=== PATIENT | female | born 1965 | race Caucasian/White ===

== ENCOUNTER 2018-08-13 13:46 | Inpatient (IN) | payer OTHER ==
[~2018-08-13] VITALS: Ht 165.1 cm; Wt 81.0 kg
[2018-08-13] MEDS ORDERED: morphine 4 MG/ML VIAL IV STA (14:00)
[2018-08-13] MEDS ORDERED: SOD CHLORIDE 0.9% 1,000 ML IV STA (14:00)
[2018-08-13] MEDS ORDERED: ONDANSETRON 4 MG INJ IV STA (14:00)
[2018-08-13] MEDS ORDERED: HYDROmorphONE 0.5 MG/0.5 ML SYG IV STA (14:03)
[2018-08-13] MEDS ORDERED: HYDROmorphONE 2 MG/ML SYG IV STA ×2 (14:43→16:37)
[2018-08-13] MEDS ORDERED: LEVO25TA6 PO (15:03)
[2018-08-13] MEDS ORDERED: HYDR8TAB25 PO (15:04)
[2018-08-13] MEDS ORDERED: PANT40TA3 PO (15:04)
[2018-08-13] MEDS ORDERED: OXYC-536 PO (15:05)
[2018-08-13] MEDS ORDERED: POTA20TA96 PO (15:05)
[2018-08-13] MEDS ORDERED: DULO60CA6 PO (15:05)
[2018-08-13] MEDS ORDERED: CHOL100062 PO (15:07)
[2018-08-13] MEDS ORDERED: ZOLP5TAB PO (15:07)
--- NOTE | 2018-08-13 17:19 | ERD ---
ER Documentation Chief Complaint Chief Complaint ABD PAIN WITH BLOODY STOOLS HPI 52-year-old female with a history of Hodgkin's lymphoma, thyroid cancer, and recently diagnosed C. difficile colitis [facility] for severe abdominal pain for about 1 day. She states her pain is mostly in the lower abdomen. She has had associated rectal bleeding which is new for her. She denies any nausea, vomiting, hematemesis, fever, chills. The pain is constant, 10 out of 10, radiating all over her abdomen. She denies being on blood thinners. She was recently discharged from another hospital to the [facility] yesterday. ROS All systems reviewed and are negative except as per history of present illness. Medications Home Meds Reported Medications Zolpidem Tartrate* (Ambien*) 5 Mg Tablet, 5 MG PO QHS PRN for INSOMNIA, #30 TAB 08/13/18 Cholecalciferol* (Vitamin D3*) 1,000 Unit Tablet, 1000 UNIT PO DAILY, TAB 08/13/18 Cholecalciferol* (Vitamin D3*) 1,000 Unit Tablet, 2000 UNIT PO DAILY, TAB 08/13/18 Potassium Chloride* (Potassium Chloride*) 20 Meq Tablet.er, 20 MEQ PO DAILY, TAB.SA 08/13/18 Duloxetine Hcl* (Cymbalta*) 60 Mg Capsule.dr, 60 MG PO DAILY, CAP 08/13/18 Oxycodone Hcl* (Oxycontin*) 15 Mg Tab.sr.12h, 15 MG PO Q12, TAB 08/13/18 Hydromorphone Hcl* (Dilaudid*) 8 Mg Tablet, 8 MG PO Q6H PRN for PAIN, TAB 08/13/18 Pantoprazole* (Protonix*) 40 Mg Tablet.dr, 40 MG PO AC BREAKFAST, TAB 08/13/18 Levothyroxine Sodium* (Levothyroxine Sodium*) 25 Mcg Tablet, 25 MCG PO BEFORE BREAKFAST, #30 TAB 08/13/18 Allergies Allergies: Coded Allergies: Iodine and Iodide Containing Produc (Verified Allergy, Unknown, 08/13/18) Penicillins (Verified Allergy, Unknown, 08/13/18) ketorolac (Verified Allergy, Unknown, 08/13/18) morphine (Verified Allergy, Unknown, 08/13/18) vancomycin (Verified Allergy, Unknown, 08/13/18) PMhx/Soc History of Surgery: Yes (CHOLECYSTECTOMY, ) Anesthesia Reaction: No Hx Neurological Disorder: No Hx Respiratory Disorders: No Hx Cardiac Disorders: Yes (HIGH CHOLESTEROL) Hx Psychiatric Problems: Yes (DEPRESSION, ANXIETY) Hx Miscellaneous Medical Probl: Yes (ANEMIA, CDIFF, HODGKINS LYMPHOMA) Hx Alcohol Use: No Hx Substance Use: No Hx Tobacco Use: No Smoking Status: Never smoker FmHx Mother had lymphoma and hypertension, father had stomach cancer Physical Exam Vitals Vital Signs Date Temp Pulse Resp B/P (MAP) Pulse Ox O2 O2 Flow FiO2 Time Delivery Rate 08/13/18 97.6 103 16 151/95 100 Room Air 18:15 (113) 08/13/18 97.1 70 16 149/89 100 13:58 (109) Physical Exam Const: No acute distress in distress secondary to pain, moaning, nontoxic Head: Atraumatic Eyes: Normal Conjunctiva ENT: Normal External Ears, Nose and Mouth. Neck: Full range of motion. No meningismus. Resp: Clear to auscultation bilaterally Cardio: Regular rate and rhythm, no murmurs Abd: Soft, left lower quadrant tenderness to palpation with guarding but no rebound. Peritonitis. non distended. Normal bowel sounds Rectal: Bright red blood in rectal vault Skin: No petechiae or rashes Back: No midline or flank tenderness Ext: No cyanosis, or edema Neur: Awake and alert, normal speech, moving all extremities spontaneously Psych: Normal Mood and Affect Result Diagram: 08/13/18 1415 08/13/18 1415 Results 24 hrs Laboratory Tests Test 08/13/18 14:15 08/13/18 15:46 08/13/18 15:47 08/13/18 16:25 White Blood Count 12.5 10^3/ul Red Blood Count 4.87 10^6/ul Hemoglobin 11.1 g/dl Hematocrit 35.0 % Mean Corpuscular 71.9 fl Volume Mean Corpuscular 22.8 pg Hemoglobin Mean Corpuscular 31.7 g/dl Hemoglobin Concen t Red Cell 15.8 % Distribution Width Platelet Count 265 10^3/UL Mean Platelet 9.6 fl Volume Immature 0.600 % Granulocytes % Neutrophils % 74.8 % Lymphocytes % 16.3 % Monocytes % 7.3 % Eosinophils % 0.5 % Basophils % 0.5 % Nucleated Red 0.0 /100WBC Blood Cells % Immature 0.080 10^3/ul Granulocytes # Neutrophils # 9.4 10^3/ul Lymphocytes # 2.0 10^3/ul Monocytes # 0.9 10^3/ul Eosinophils # 0.1 10^3/ul Basophils # 0.1 10^3/ul Nucleated Red 0.0 10^3/ul Blood Cells # Sodium Level 140 mmol/L Potassium Level 3.5 mmol/L Chloride Level 101 mmol/L Carbon Dioxide 25 mmol/L Level Anion Gap 14 Blood Urea 13 mg/dl Nitrogen Creatinine 0.41 mg/dl Est Glomerular > 60 mL/min Filtrat Rate mL/min Glucose Level 119 mg/dl Calcium Level 9.6 mg/dl Total Bilirubin 0.4 mg/dl Direct Bilirubin 0.00 mg/dl Indirect 0.4 mg/dl Bilirubin Aspartate Amino 31 IU/L Transf (AST/SGOT) Alanine 27 IU/L Aminotransferase (ALT/SGPT) Alkaline 100 IU/L Phosphatase Total Protein 8.0 g/dl Albumin 4.6 g/dl Globulin 3.40 g/dl Albumin/Globulin 1.35 Ratio Lipase 60 U/L Urine Color YELLOW Urine Clarity CLEAR Urine pH 5.0 Urine Specific 1.024 [place] Urine Ketones NEGATIVE mg/dL Urine Nitrite NEGATIVE mg/dL Urine Bilirubin NEGATIVE mg/dL Urine NEGATIVE mg/dL Urobilinogen Urine Leukocyte NEGATIVE Jose/ul Esterase Urine Hemoglobin NEGATIVE mg/dL Urine Glucose NEGATIVE mg/dL Urine Total NEGATIVE mg/dl Protein POC Beta HCG, NEGATIVE Qualitative Stool Occult POSITIVE Blood Current Medications Medications Dose Sig/Marcel Start Time Status Last (Trade) Ordered Route PRN Stop Time Admin Dose Reason Admin Sodium 1,000 ml @ Q1H STAT 08/13/18 DC 08/13/18 Chloride 1,000 mls/hr IV 14:00 15:28 08/13/18 14:59 Morphine 4 mg ONCE STAT 08/13/18 DC Sulfate IV 14:00 (morphine) 08/13/18 14:04 Ondansetron 4 mg ONCE STAT 08/13/18 DC 08/13/18 HCl (Zofran IV 14:00 14:57 Inj) 08/13/18 14:02 0.5 mg ONCE STAT 08/13/18 DC 08/13/18 Hydromorphone IV 14:03 14:57 HCl 08/13/18 14:04 (Dilaudid) 2 mg ONCE STAT 08/13/18 DC 08/13/18 Hydromorphone IV 14:43 15:28 HCl 08/13/18 14:44 (Dilaudid) 2 mg ONCE STAT 08/13/18 DC 08/13/18 Hydromorphone IV 16:37 16:53 HCl 08/13/18 16:38 (Dilaudid) Ondansetron 4 mg ER BRIDGE 08/13/18 HCl (Zofran PRN IV 17:30 Inj) NAUSEA AND/OR 08/14/18 17:29 VOMITING 650 mg ER BRIDGE 08/13/18 Acetaminophen PRN PO MILD 17:30 (Tylenol PAIN(1-3)OR 08/14/18 17:29 Tab) ELEVATED TEMP Procedures/MDM EMERGENT LABS AND DIAGNOSTIC STUDIES: Lab Results above were reviewed and interpreted by me. CBC: Mild leukocytosis, mild anemia. No thrombocytosis or thrombocytopenia CMP: No evidence of electrolyte abnormality, renal failure, hypoglycemia, liver failure, or biliary obstruction Lipase: no evidence of pancreatitis UA: no evidence of infection CT abdomen and pelvis Radiology Results as interpreted by Radiology below were reviewed by Alba Jarvis MD: CT abdomen and pelvis: Pending Initial Nursing notes reviewed. Previous Medical Records requested via the Electronic Health Record. EMERGENCY DEPARTMENT COURSE / MEDICAL DECISION MAKING: Patient is presenting with bright red blood per rectum and diffuse abdominal pain. She is hemodynamically stable. She was given multiple doses of Dilaudid for pain control as she is chronically on Dilaudid. She remained hemodynamically stable. Her labs did not show any significant anemia or other abnormalities. CT abdomen and pelvis was ordered and is pending at time of admission. Patient will be admitted to telemetry under Dr. Garcia. Departure Diagnosis: Primary Impression: Abdominal pain Abdominal location: lower abdomen, unspecified Qualified Codes: R10.30 - Lower abdominal pain, unspecified Additional Impressions: Rectal bleeding History of Clostridium difficile colitis Condition: Serious RIAZ JARVIS MD Aug 13, 2018 17:19
[2018-08-13] MEDS ORDERED: ONDANSETRON 4 MG INJ IV PRN (17:30)
[2018-08-13] MEDS ORDERED: ACETAMINOPHEN 325 MG TAB PO PRN (17:30)
[2018-08-13 20:00] VITALS: BP 136/90; PULSE 106; PULSE 110; RESP 22; Ht 165.1 cm; Wt 81.0 kg
[2018-08-13] MEDS ORDERED: NACL 0.9% 3 ML SYG IV SCH (20:00)
[2018-08-13] MEDS ORDERED: HYDROmorphONE 0.5 MG/0.5 ML SYG IV PRN (20:00)
[2018-08-13] MEDS: FAMOTIDINE 20 MG INJ IV SCH (20:12)
[2018-08-13] MEDS: ONDANSETRON 4 MG INJ IV PRN (20:12)
[2018-08-13] MEDS: DEXTROSE 5%-0.45% NACL 1,000 ML IV SCH (22:06)
--- NOTE | 2018-08-13 22:07 | HP ---
Date/Time of Note Date/Time of Note DATE: 08/13/18 TIME: 22:07 Assessment/Plan VTE Prophylaxis SCD applied (from Nsg): Yes Pharmacological prophylaxis: NA/contraindicated Pharm contraindication: bleeding Lines/Catheters IV Catheter Type (from Nrsg): PICC Line Central line still needed: Yes Assessment/Plan Assessment/Plan 1. Abdominal pain with watery bloody diarrhea: Most likely secondary to C. difficile colitis -Patient was recently diagnosed with a C. difficile colitis at the [facility] about a week ago. Here CT shows colitis -IV antibiotic -Keep n.p.o. with IV fluid -Stool studies including C. difficile -Consider GI consult 2. Hodgkin's lymphoma of the lung (per patient's diagnosed last month) -Patient has been awaiting oncology eval -We will place an oncology consult here 3. History of thyroid cancer diagnosed in 2007, status post surgery. Currently on Synthroid for hypothyroidism -Continue Synthroid Result Diagram: 08/13/18 1415 08/13/18 1415 Results 24hrs Laboratory Tests Test 08/13/18 14:15 08/13/18 15:46 08/13/18 15:47 08/13/18 16:25 White Blood Count 12.5 H Red Blood Count 4.87 Hemoglobin 11.1 L Hematocrit 35.0 L Mean Corpuscular 71.9 L Volume Mean Corpuscular 22.8 L Hemoglobin Mean Corpuscular 31.7 L Hemoglobin Concent Red Cell 15.8 H Distribution Width Platelet Count 265 Mean Platelet Volume 9.6 Immature 0.600 H Granulocytes % Neutrophils % 74.8 Lymphocytes % 16.3 Monocytes % 7.3 Eosinophils % 0.5 Basophils % 0.5 Nucleated Red Blood 0.0 Cells % Immature 0.080 H Granulocytes # Neutrophils # 9.4 H Lymphocytes # 2.0 Monocytes # 0.9 Eosinophils # 0.1 Basophils # 0.1 Nucleated Red Blood 0.0 Cells # Sodium Level 140 Potassium Level 3.5 Chloride Level 101 Carbon Dioxide Level 25 Anion Gap 14 H Blood Urea Nitrogen 13 Creatinine 0.41 L Est Glomerular > 60 Filtrat Rate mL/min Glucose Level 119 Calcium Level 9.6 Total Bilirubin 0.4 Direct Bilirubin 0.00 Indirect Bilirubin 0.4 Aspartate Amino 31 Transf (AST/SGOT) Alanine 27 Aminotransferase (AL T/SGPT) Alkaline Phosphatase 100 Total Protein 8.0 Albumin 4.6 Globulin 3.40 H Albumin/Globulin 1.35 Ratio Lipase 60 Urine Color YELLOW Urine Clarity CLEAR Urine pH 5.0 Urine Specific 1.024 [place] Urine Ketones NEGATIVE Urine Nitrite NEGATIVE Urine Bilirubin NEGATIVE Urine Urobilinogen NEGATIVE Urine Leukocyte NEGATIVE Esterase Urine Hemoglobin NEGATIVE Urine Glucose NEGATIVE Urine Total Protein NEGATIVE POC Beta HCG, NEGATIVE Qualitative Stool Occult Blood POSITIVE HPI/ROS Admit Date/Time Admit Date/Time Aug 13, 2018 at 17:22 Hx of Present Illness This is a 52-year-old female with a history of thyroid cancer status post surgery on remission and taking Synthroid, Hodgkin's lymphoma of the lung diagnosed last month (this is per patient). Patient presented to ER complaining of abdominal pain, multiple watery/bloody diarrhea. She said she was hospital ized the entire June of last month at [facility]. She said she was in a coma for 1 week "because I had a bacteria in my blood". She went back to the same hospital about a week ago for abdominal pain where she was hospitalized for 4 days after diagnosis of C. difficile colitis. Patient is any significant abdominal pain. She said she is already had multiple diarrhea even after she came to the hospital. She said she is in the process of seeing an oncologist for her lung cancer. When she presented to ER, WBC was 25,000. CT abdomen pelvis shows colitis. PMH/Family/Social Past Medical History Medical History: other (See HPI) Medications Current Medications Dextrose/Sodium Chloride 1,000 ml @ 125 mls/hr Q8H IV Last administered on 08/13/18at 22:06; Admin Dose 125 MLS/HR; Start 08/13/18 at 19:34 IV Flush (NS 3 ml) 3 ml PER PROTOCOL IV ; Start 08/13/18 at 20:00 Ondansetron HCl (Zofran Inj) 4 mg Q6H PRN IV NAUSEA AND/OR VOMITING Last administered on 08/13/18at 20:12; Admin Dose 4 MG; Start 08/13/18 at 20:00 Famotidine (Pepcid Iv) 20 mg Q12 IV Last administered on 08/13/18at 20:12; Admin Dose 20 MG; Start 08/13/18 at 21:00 Hydromorphone HCl (Dilaudid) 0.5 mg Q3H PRN IV SEVERE PAIN LEVEL 7-10 Last administered on 08/13/18at 20:13; Admin Dose 0.5 MG; Start 08/13/18 at 20:00 Coded Allergies: Iodine and Iodide Containing Produc (Verified Allergy, Unknown, 08/13/18) Penicillins (Verified Allergy, Unknown, 08/13/18) ketorolac (Verified Allergy, Unknown, 08/13/18) morphine (Verified Allergy, Unknown, 08/13/18) vancomycin (Verified Allergy, Unknown, 08/13/18) Past Surgical History Past Surgical Hx: other (See HPI) Family History Significant Family History: no pertinent family hx Social History Alcohol Use: none Smoking Status: Never smoker Drug Use: none Exam/Review of Systems Vital Signs Vitals Vital Signs Date Temp Pulse Resp B/P (MAP) Pulse Ox O2 O2 Flow FiO2 Time Delivery Rate 08/13/18 98.5 104 28 152/97 98 Room Air 18:35 (115) Exam Constitutional: distress Head: normocephalic, atraumatic Eyes: EOMI, PERRL Respiratory: clear to auscultation, normal air movement Cardiovascular: other (Tachycardic regular rhythm) Gastrointestinal: soft, tender Extremities: normal pulses TOPHER HSU MD Aug 13, 2018 22:07
[2018-08-13] MEDS: HYDROmorphONE 1 MG/ML SYG IV PRN (22:15)
[2018-08-13 23:40] VITALS: BP 132/95; PULSE 100; RESP 19
[2018-08-14] VITALS (11 sets, daily range): BP systolic 125–162; BP diastolic 82–90; PULSE 92–111; RESP 18–19
[2018-08-14] MEDS: HYDROmorphONE 1 MG/ML SYG IV PRN ×3 (01:18→07:13)
[2018-08-14] MEDS: ONDANSETRON 4 MG INJ IV PRN ×2 (03:17→16:01)
[2018-08-14] MEDS: DEXTROSE 5%-0.45% NACL 1,000 ML IV SCH ×4 (03:34→22:01)
[2018-08-14] MEDS ORDERED: LEVOTHYROXINE 25 MCG TAB PO SCH (07:30)
[2018-08-14] MEDS ORDERED: PANTOPRAZOLE (EC) 40 MG TAB PO SCH (07:30)
[2018-08-14] MEDS: FAMOTIDINE 20 MG INJ IV SCH ×2 (08:18→20:29)
[2018-08-14] MEDS: oxyCODONE (CR) 15 MG TAB [oxyCONTIN] PO SCH ×2 (08:18→20:29)
[2018-08-14] MEDS: DULOXETINE 30 MG CAP DR PO SCH (08:18)
[2018-08-14] MEDS: HYDROmorphONE 2 MG/ML SYG IV PRN ×4 (10:21→22:05)
[2018-08-14] MEDS ORDERED: RIFAXIMIN 550 MG TAB PO SCH (14:00)
[2018-08-14] MEDS ORDERED: LACTATED RINGER'S 500 ML IV ONE (14:00)
[2018-08-14] MEDS: metroNIDAZOLE 500 MG TAB PO SCH ×2 (14:16→22:01)
--- NOTE | 2018-08-14 14:52 | CONS ---
Date/Time of Note Date/Time of Note DATE: 08/14/18 TIME: 14:40 Assessment/Plan Assessment/Plan Hospital Course Summary Assessment and Plan: Assessment: Colitis, involving the ascending, transverse, descending colon. Abdominal pain Hodgkin's lymphoma of the lung History of thyroid cancer diagnosed in 2007, status post surgery History of PE- s/p IVC filter placement Plan: Patient has been empirically started on vancomycin/Flagyl for possible CDIFF Stool studies are currently pending Monitor labs as patient is complaining of bloody diarrhea however currently hemoglobin is stable Workup is negative may consider colonoscopy Clear liquid diet Continue collaboration with Dr. Yadav Result Diagram: 08/14/18 0515 08/14/18 0515 Results 24hrs Laboratory Tests Test 08/13/18 15:46 08/13/18 15:47 08/13/18 16:25 08/14/18 05:15 Urine Color YELLOW Urine Clarity CLEAR Urine pH 5.0 Urine Specific 1.024 [place] Urine Ketones NEGATIVE Urine Nitrite NEGATIVE Urine Bilirubin NEGATIVE Urine Urobilinogen NEGATIVE Urine Leukocyte NEGATIVE Esterase Urine Hemoglobin NEGATIVE Urine Glucose NEGATIVE Urine Total Protein NEGATIVE POC Beta HCG, NEGATIVE Qualitative Stool Occult Blood POSITIVE White Blood Count 25.4 #H Red Blood Count 5.29 Hemoglobin 12.0 Hematocrit 37.7 Mean Corpuscular 71.3 L Volume Mean Corpuscular 22.7 L Hemoglobin Mean Corpuscular 31.8 L Hemoglobin Concent Red Cell 16.1 H Distribution Width Platelet Count 335 # Mean Platelet Volume 10.5 H Immature 0.800 H Granulocytes % Neutrophils % Segmented 82 H Neutrophils % (Manual) Band Neutrophils % 7 H (Manual) Lymphocytes % Lymphocytes % 5 L (Manual) Reactive Lymphocytes 4 H % (Manual) Monocytes % Monocytes % (Manual) 2 Eosinophils % Basophils % Nucleated Red Blood 0.0 Cells % Immature 0.200 H Granulocytes # Neutrophils # Neutrophils # 21.3 H (Manual) Band Neutrophils # 1.7 H Lymphocytes (Manual) 1.2 Lymphocytes # Reactive Lymphocytes 1.0 H # Monocytes # Monocytes # (Manual) 0.5 Eosinophils # Basophils # Nucleated Red Blood Cells # Platelet Estimate NORMAL Polychromasia 1+ Poikilocytosis 3+ Anisocytosis 2+ Microcytosis 2+ Ovalocytes 1+ Elliptocytes 1+ Sodium Level 137 Potassium Level 3.6 Chloride Level 104 Carbon Dioxide Level 21 Anion Gap 12 Blood Urea Nitrogen 17 Creatinine 0.47 Est Glomerular > 60 Filtrat Rate mL/min Glucose Level 175 Calcium Level 8.8 Magnesium Level 1.8 Total Bilirubin 0.5 Direct Bilirubin 0.00 Indirect Bilirubin 0.5 Aspartate Amino 21 Transf (AST/SGOT) Alanine 24 Aminotransferase (AL T/SGPT) Alkaline Phosphatase 90 Total Protein 7.0 # Albumin 4.0 Globulin 3.00 Albumin/Globulin 1.33 Ratio Thyroid Stimulating 0.882 Hormone (TSH) CC: PRUDENCE YADAV Ashley ; Consultation Date/Type/Reason Admit Date/Time Aug 13, 2018 at 17:22 Date of Consultation: Aug 14, 2018 Type of Consult GI Reason for Consultation Bloody diarrhea Hx of Present Illness A 52-year-old female with past medical history of Hodgkin's lymphoma, history of PE status post IVC filter, thyroid CA in 2000-03-03 status post thyroidectomy currently on levothyroxine. Who was recently treated in outside hospital and subsequently for hemoptysis subsequently discharged patient then began to complain of abdominal pain and bloody diarrhea she came to [facility]. Currently stool studies have been ordered, showing colitis of the ascending, transverse, descending colon a CT abdomen pelvis was completed she is status post cholecystectomy, again IVC filter is noted numerous nodules in both lungs measuring up to 4 mm in the right lobe and lingula. He has been started on empiric antibiotics for presumed C. difficile studies are currently pending. Patient states her last colonoscopy was about 3 years ago per patient results were negative. Heme globin is stable despite having bloody diarrhea. We will wait for stool studies to return if workup is negative may consider repeating colonoscopy. Review of Systems: A 12 system, review was conducted and is negative except as noted in the HPI or here. Past Medical History Medical History: other (See HPI) Medications Current Medications Dextrose/Sodium Chloride 1,000 ml @ 125 mls/hr Q8H IV Last administered on 08/14/18at 08:20; Admin Dose 125 MLS/HR; Start 08/13/18 at 19:34 IV Flush (NS 3 ml) 3 ml PER PROTOCOL IV ; Start 08/13/18 at 20:00 Ondansetron HCl (Zofran Inj) 4 mg Q6H PRN IV NAUSEA AND/OR VOMITING Last administered on 08/14/18at 03:17; Admin Dose 4 MG; Start 08/13/18 at 20:00 Famotidine (Pepcid Iv) 20 mg Q12 IV Last administered on 08/14/18 08:18; Admin Dose 20 MG; Start 08/13/18 at 21:00 Duloxetine HCl (Cymbalta) 60 mg DAILY PO Last administered on 08/14/18 08:18; Admin Dose 60 MG; Start 08/14/18 at 09:00 Oxycodone HCl (Oxycontin) 15 mg Q12 PO Last administered on 08/14/18 08:18; Admin Dose 15 MG; Start 08/14/18 at 09:00 Hydromorphone HCl (Dilaudid) 2 mg Q4H PRN IV SEVERE PAIN LEVEL 7-10 Last administered on 08/14/18 14:16; Admin Dose 2 MG; Start 08/14/18 at 07:30 Vancomycin HCl (Vancomycin Oral Syringe) 250 mg Q6 PO ; Start 08/14/18 at 14:30; Stop 08/21/18 at 14:29 Metronidazole (Flagyl) 500 mg Q8 PO Last administered on 08/14/18at 14:16; Admin Dose 500 MG; Start 08/14/18 at 14:00; Stop 08/21/18 at 13:59 Levothyroxine Sodium (Synthroid) 50 mcg BEFORE BREAKFAST PO ; Start 08/15/18 at 07:00 Lactated Ringer's 500 ml @ 500 mls/hr Q1H ONCE IV Last administered on 08/14/18 14:18; Admin Dose 500 MLS/HR; Start 08/14/18 at 14:00; Stop 08/14/18 at 14:59 Allergies: Coded Allergies: Iodine and Iodide Containing Produc (Verified Allergy, Unknown, 08/13/18) Penicillins (Verified Allergy, Unknown, 08/13/18) ketorolac (Verified Allergy, Unknown, 08/13/18) morphine (Verified Allergy, Unknown, 08/13/18) vancomycin (Verified Allergy, Unknown, 08/13/18) Past Surgical History Past Surgical Hx: other (See HPI) Social History Alcohol Use: none Smoking Status: Never smoker Drug Use: none Exam/Review of Systems Vital Signs Vitals Vital Signs Date Temp Pulse Resp B/P (MAP) Pulse Ox O2 O2 Flow FiO2 Time Delivery Rate 08/14/18 94 12:00 08/14/18 98.4 18 154/84 96 11:07 (107) 08/13/18 2.0 20:00 08/13/18 Room Air 18:35 Intake and Output 08/13/18 08/13/18 08/14/18 1515:00 23:00 07:00 IntakeIntake Total 700 ml OutputOutput Total 400 ml BalanceBalance 300 ml Exam Constitutional: alert, oriented Psych: no complaints Head: normocephalic, atraumatic Eyes: nl conjunctiva ENMT: nl external ears & nose Neck: supple, non-tender Respiratory: clear to auscultation Cardiovascular: regular rate and rhythm Gastrointestinal: soft, bowel sounds, tender (generalized); No ascites, No distended, No firm, No hepatomegaly, No mass, No rebound or guarding Medications Medications Current Medications Dextrose/Sodium Chloride 1,000 ml @ 125 mls/hr Q8H IV Last administered on 08/14/18 08:20; Admin Dose 125 MLS/HR; Start 08/13/18 at 19:34 IV Flush (NS 3 ml) 3 ml PER PROTOCOL IV ; Start 08/13/18 at 20:00 Ondansetron HCl (Zofran Inj) 4 mg Q6H PRN IV NAUSEA AND/OR VOMITING Last ad ministered on 08/14/18 03:17; Admin Dose 4 MG; Start 08/13/18 at 20:00 Famotidine (Pepcid Iv) 20 mg Q12 IV Last administered on 08/14/18 08:18; Admin Dose 20 MG; Start 08/13/18 at 21:00 Duloxetine HCl (Cymbalta) 60 mg DAILY PO Last administered on 08/14/18 08:18; Admin Dose 60 MG; Start 08/14/18 at 09:00 Oxycodone HCl (Oxycontin) 15 mg Q12 PO Last administered on 08/14/18 08:18; Admin Dose 15 MG; Start 08/14/18 at 09:00 Hydromorphone HCl (Dilaudid) 2 mg Q4H PRN IV SEVERE PAIN LEVEL 7-10 Last administered on 08/14/18 14:16; Admin Dose 2 MG; Start 08/14/18 at 07:30 Vancomycin HCl (Vancomycin Oral Syringe) 250 mg Q6 PO ; Start 08/14/18 at 14:30; Stop 08/21/18 at 14:29 Metronidazole (Flagyl) 500 mg Q8 PO Last administered on 08/14/18at 14:16; Admin Dose 500 MG; Start 08/14/18 at 14:00; Stop 08/21/18 at 13:59 Levothyroxine Sodium (Synthroid) 50 mcg BEFORE BREAKFAST PO ; Start 08/15/18 at 07:00 Lactated Ringer's 500 ml @ 500 mls/hr Q1H ONCE IV Last administered on 08/14/18at 14:18; Admin Dose 500 MLS/HR; Start 08/14/18 at 14:00; Stop 08/14/18 at 14:59 VADIM MCGILL Aug 14, 2018 14:51
[2018-08-14] MEDS: VANCOMYCIN HCL 250 MG/5ML POSYG PO SCH ×2 (15:02→18:48)
--- NOTE | 2018-08-14 20:54 | PN ---
Date/Time of Note Date/Time of Note DATE: 08/14/18 TIME: 20:48 Assessment/Plan VTE Prophylaxis Risk [place] [facility] [place] risk: 3 SCD applied ([place] [facility] [place] Yes SCD contraindicated: low risk/ambulating Pharmacological prophylaxis: NA/contraindicated Pharm contraindication: bleeding Lines/Catheters IV [facility]ter Type (from [facility]): Peripheral IV Urinary Cath still in place: Yes Reason Cath still needed: urinary retention Assessment/Plan Problems: (1) Rectal bleeding Status: Acute Comment: The staff was uncomfortable with the idea of using rifaximin mean. As such empirically this is been transition over to vancomycin with metronidazole pending the C. difficile studies which were initially turned down by laboratory. GI consult is on board and apparently agrees with the presumptive treatment plan. (2) History of Clostridium difficile colitis Status: Acute Comment: Repeat studies are pending.Please note our laboratory refused from the first specimen stating that it was not watery enough. Please see the nursing notes about the specimen that they said that regarding. Repeat studies have been ordered. (3) Abdominal pain Status: Acute Comment: Continue careful observation Qualifiers: Abdominal location: lower abdomen, unspecified Qualified Codes: R10.30 - Lower abdominal pain, unspecified (4) Hyperlipidemia Status: Chronic Comment: Noted. When the patient's better we can resume statin therapy Qualifiers: Hyperlipidemia type: pure hypercholesterolemia Qualified Codes: E78.00 - Pure hypercholesterolemia, unspecified (5) Hodgkins disease Status: Chronic Comment: noted Qualifiers: Hodgkin lymphoma type: unspecified type (6) History of laparoscopic cholecystectomy Status: Chronic Comment: noted (7) History of Status: Chronic Comment: noted (8) Papillary carcinoma of thyroid Status: Chronic Comment: noted, recheck labs Result Diagram: 08/14/18 0515 08/14/18 0515 Results 24hrs Laboratory Tests Test 08/14/18 05:15 White Blood Count 25.4 #H Red Blood Count 5.29 Hemoglobin 12.0 Hematocrit 37.7 Mean Corpuscular Volume 71.3 L Mean Corpuscular Hemoglobin 22.7 L Mean Corpuscular Hemoglobin Concent 31.8 L Red Cell Distribution Width 16.1 H Platelet Count 335 # Mean Platelet Volume 10.5 H Immature Granulocytes % 0.800 H Neutrophils % Segmented Neutrophils % (Manual) 82 H Band Neutrophils % (Manual) 7 H Lymphocytes % Lymphocytes % (Manual) 5 L Reactive Lymphocytes % (Manual) 4 H Monocytes % Monocytes % (Manual) 2 Eosinophils % Basophils % Nucleated Red Blood Cells % 0.0 Immature Granulocytes # 0.200 H Neutrophils # Neutrophils # (Manual) 21.3 H Band Neutrophils # 1.7 H Lymphocytes (Manual) 1.2 Lymphocytes # Reactive Lymphocytes # 1.0 H Monocytes # Monocytes # (Manual) 0.5 Eosinophils # Basophils # Nucleated Red Blood Cells # Platelet Estimate NORMAL Polychromasia 1+ Poikilocytosis 3+ Anisocytosis 2+ Microcytosis 2+ Ovalocytes 1+ Elliptocytes 1+ Sodium Level 137 Potassium Level 3.6 Chloride Level 104 Carbon Dioxide Level 21 Anion Gap 12 Blood Urea Nitrogen 17 Creatinine 0.47 Est Glomerular Filtrat Rate mL/min > 60 Glucose Level 175 Calcium Level 8.8 Magnesium Level 1.8 Total Bilirubin 0.5 Direct Bilirubin 0.00 Indirect Bilirubin 0.5 Aspartate Amino Transf (AST/SGOT) 21 Alanine Aminotransferase (ALT/SGPT) 24 Alkaline Phosphatase 90 Total Protein 7.0 # Albumin 4.0 Globulin 3.00 Albumin/Globulin Ratio 1.33 Thyroid Stimulating Hormone (TSH) 0.882 Subjective 24 Hr Interval Summary Free Text/Dictation Patient is complaining of continued pain and bloody stools Constitutional: no complaints Respiratory: no complaints Cardiovascular: no complaints Gastrointestinal: pain, diarrhea Genitourinary: no complaints Exam/Review of Systems Vital Signs Vitals Vital Signs Date Temp Pulse Resp B/P (MAP) Pulse Ox O2 O2 Flow FiO2 Time Delivery Rate 08/14/18 97.7 92 18 125/82 97 20:37 (96) 08/13/18 2.0 20:00 08/13/18 Room Air 18:35 Intake and Output 08/13/18 08/13/18 08/14/18 1414:59 22:59 06:59 IntakeIntake Total 700 ml OutputOutput Total 400 ml BalanceBalance 300 ml Exam Constitutional: alert Neck: supple, non-tender Respiratory: clear to auscultation, normal air movement Gastrointestinal: soft, nl liver, spleen, tender Medications Medications Current Medications Dextrose/Sodium Chloride 1,000 ml @ 125 mls/hr Q8H IV Last administered on at 08:20; Admin Dose 125 MLS/HR; Start 08/13/18 at 19:34 IV Flush (NS 3 ml) 3 ml PER PROTOCOL IV ; Start 08/13/18 at 20:00 Ondansetron HCl (Zofran Inj) 4 mg Q6H PRN IV NAUSEA AND/OR VOMITING Last administered on 08/14/18 16:01; Admin Dose 4 MG; Start 08/13/18 at 20:00 Famotidine (Pepcid Iv) 20 mg Q12 IV Last administered on 08/14/18 20:29; Admin Dose 20 MG; Start 08/13/18 at 21:00 Duloxetine HCl (Cymbalta) 60 mg DAILY PO Last administered on 08/14/18 08:18; Admin Dose 60 MG; Start 08/14/18 at 09:00 Oxycodone HCl (Oxycontin) 15 mg Q12 PO Last administered on 08/14/18 20:29; Admin Dose 15 MG; Start 08/14/18 at 09:00 Hydromorphone HCl (Dilaudid) 2 mg Q4H PRN IV SEVERE PAIN LEVEL 7-10 Last administered on 08/14/18 18:05; Admin Dose 2 MG; Start 08/14/18 at 07:30 Vancomycin HCl (Vancomycin Oral Syringe) 250 mg Q6 PO Last administered on 08/14/18 18:48; Admin Dose 250 MG; Start 08/14/18 at 14:30; Stop 08/21/18 at 14:29 Metronidazole (Flagyl) 500 mg Q8 PO Last administered on 08/14/18at 14:16; Admin Dose 500 MG; Start 08/14/18 at 14:00; Stop 08/21/18 at 13:59 Levothyroxine Sodium (Synthroid) 50 mcg BEFORE BREAKFAST PO ; Start 08/15/18 at 07:00 MALISSA MARTINES MD Aug 14, 2018 20:54
[2018-08-15] VITALS (12 sets, daily range): BP systolic 133–145; BP diastolic 65–83; PULSE 73–90; RESP 17–19
[2018-08-15] MEDS: ONDANSETRON 4 MG INJ IV PRN ×2 (00:39→12:04)
[2018-08-15] MEDS ORDERED: DIPHENHYDRAMINE 50 MG INJ IV ONE (01:30)
[2018-08-15] MEDS: VANCOMYCIN HCL 250 MG/5ML POSYG PO SCH ×5 (01:39→22:53)
[2018-08-15] MEDS: HYDROmorphONE 2 MG/ML SYG IV PRN ×6 (02:02→22:52)
[2018-08-15] MEDS: ALTEPLASE (CATHFLO) 2 MG INJ CATHETER PRN ×2 (06:18→07:02)
[2018-08-15] MEDS: LEVOTHYROXINE 50 MCG TAB PO SCH (07:06)
[2018-08-15] MEDS: metroNIDAZOLE 500 MG TAB PO SCH ×3 (07:07→21:10)
[2018-08-15] MEDS: oxyCODONE (CR) 15 MG TAB [oxyCONTIN] PO SCH ×2 (08:31→20:30)
[2018-08-15] MEDS: FAMOTIDINE 20 MG INJ IV SCH ×2 (08:31→20:31)
[2018-08-15] MEDS: DULOXETINE 30 MG CAP DR PO SCH (08:32)
[2018-08-15] MEDS: DEXTROSE 5%-0.45% NACL 1,000 ML IV SCH ×2 (09:12→16:41)
--- NOTE | 2018-08-15 10:16 | PN ---
Date/Time of Note Date/Time of Note DATE: 08/15/18 TIME: 10:13 Assessment/Plan VTE Prophylaxis Risk score (from [facility] [place])>0 risk: 4 SCD applied (from [facility] [place]): Yes SCD contraindicated: low risk/ambulating Pharmacological prophylaxis: NA/contraindicated Pharm contraindication: bleeding (GI bleeding) Lines/Catheters IV C[facility]ter Type (from [facility]): PICC Line Central line still needed: Yes Urinary Cath still in place: No Assessment/Plan Problems: (1) Rectal bleeding Status: Acute Comment: This persists. Please see GI consult. I still am strongly of the opinion that rifaximin would be an appropriate option. Lab does confirm that they have the stool specimens and that they are in process. One hopes this means that there not can cancel it again (2) Abdominal pain Status: Acute Comment: Persists. Qualifiers: Abdominal location: lower abdomen, unspecified Qualified Codes: R10.30 - Lower abdominal pain, unspecified (3) History of Clostridium difficile colitis Status: Acute Comment: Presently under treatment although I believe rifaximin would be a better choice (4) Hyperlipidemia Status: Chronic Comment: Noted. Qualifiers: Hyperlipidemia type: pure hypercholesterolemia Qualified Codes: E78.00 - Pure hypercholesterolemia, unspecified Result Diagram: 08/14/18 0515 08/14/18 0515 Subjective 24 Hr Interval Summary Free Text/Dictation Patient is still having abdominal pain and bloody diarrhea. Constitutional: chills Respiratory: no complaints Cardiovascular: no complaints Gastrointestinal: diarrhea Genitourinary: no complaints Exam/Review of Systems Vital Signs Vitals Vital Signs Date Temp Pulse Resp B/P (MAP) Pulse Ox O2 O2 Flow FiO2 Time Delivery Rate 08/15/18 84 08:45 08/15/18 98.4 18 133/69 99 07:38 (90) 08/14/18 Nasal 2.0 20:30 Cannula Intake and Output 08/14/18 08/14/18 08/15/18 1515:00 23:00 07:00 IntakeIntake Total 1740 ml 1375 ml OutputOutput Total 700 ml 1100 ml BalanceBalance 1040 ml 275 ml Exam Constitutional: alert, oriented Neck: supple, non-tender Respiratory: clear to auscultation, normal air movement Medications Medications Current Medications Dextrose/Sodium Chloride 1,000 ml @ 125 mls/hr Q8H IV Last administered on 08/15/18 09:12; Admin Dose 125 MLS/HR; Start 08/13/18 at 19:34 IV Flush (NS 3 ml) 3 ml PER PROTOCOL IV ; Start 08/13/18 at 20:00 Ondansetron HCl (Zofran Inj) 4 mg Q6H PRN IV NAUSEA AND/OR VOMITING Last administered on 08/15/18 00:39; Admin Dose 4 MG; Start 08/13/18 at 20:00 Famotidine (Pepcid Iv) 20 mg Q12 IV Last administered on 08/15/18 08:31; Admin Dose 20 MG; Start 08/13/18 at 21:00 Duloxetine HCl (Cymbalta) 60 mg DAILY PO Last administered on 08/15/18 08:32; Admin Dose 60 MG; Start 08/14/18 at 09:00 Oxycodone HCl (Oxycontin) 15 mg Q12 PO Last administered on 08/15/18 08:31; Admin Dose 15 MG; Start 08/14/18 at 09:00 Hydromorphone HCl (Dilaudid) 2 mg Q4H PRN IV SEVERE PAIN LEVEL 7-10 Last administered on 08/15/18 06:52; Admin Dose 2 MG; Start 08/14/18 at 07:30 Vancomycin HCl (Vancomycin Oral Syringe) 250 mg Q6 PO Last administered on 08/15/18 07:43; Admin Dose 250 MG; Start 08/14/18 at 14:30; Stop 08/21/18 at 14:29 Metronidazole (Flagyl) 500 mg Q8 PO Last administered on 08/15/18 07:07; Admin Dose 500 MG; Start 08/14/18 at 14:00; Stop 08/21/18 at 13:59 Levothyroxine Sodium (Synthroid) 50 mcg BEFORE BREAKFAST PO Last administered on 08/15/18 07:06; Admin Dose 50 MCG; Start 08/15/18 at 07:00 Alteplase, Recombinant (Cathflo (Activase)) 2 mg MAY REPEAT X1 PRN CATHETER IF CATHETER REMAINS OCCULUDED Last administered on 08/15/18 07:02; Admin Dose 2 MG; Start 08/15/18 at 06:00 MALISSA MARTINES MD Aug 15, 2018 10:16
--- NOTE | 2018-08-15 14:17 | PN ---
Date/Time of Note Date/Time of Note DATE: 08/15/18 TIME: 14:15 Assessment/Plan VTE Prophylaxis Risk score (from [facility])>0 risk: 4 SCD applied (from [facility]): Yes Pharmacological prophylaxis: other (scds) Lines/Catheters IV Catheter Type (from [facility]): PICC Line Central line still needed: Yes (meds) Urinary Cath still in place: No Assessment/Plan Hospital Course Summary Assessment and Plan: Assessment: Colitis, involving the ascending, transverse, descending colon. Leukocytosis- CDIFF neg Abdominal pain Hodgkin's lymphoma of the lung History of thyroid cancer diagnosed in 2007, status post surgery History of PE- s/p IVC filter placement Plan: Patient has been empirically started on vancomycin/Flagyl CDIFF neg, stool cx- prelim- coliform Fecal leukocytes ordered- currently pending Pt with increased n/v- not sharon po intake well - will change to npo except ice chips and meds for now Continue current regimen now- pt may require endoscopic evaluation in near fu ture pending clinical course Continue collaboration with Dr. Ewing Subjective: Course reviewed with nursing staff Patient interviewed and examined All labs, imaging and other results reviewed The patient states she feels worse today C/o n/v with abd pain, still having 9-12 BM per day WBC slight down today no real clear etiology of colitis Pt is afebrile, PHYSICAL EXAMINATION: GENERAL: Well developed, well nourished, alert & oriented x 3, in no acute distress SKIN: No lesions, no stigmata chronic liver disease, no evidence of bleeding diathesis LYMPHATIC: No palpable lymphadenopathy. HEAD: Normocephalic, atraumatic, no tenderness. EYES: Pupils equal reactive to light and accommodation, full extraocular movements, sclera clear, non-icteric, no discharge. EARS/NOSE AND THROAT: Ears normal, nose normal, oropharynx normal, oral membranes well hydrated without lesions. NECK: Supple, no masses, thyroid normal, JVP within normal limits, carotids normal without bruits. CHEST: Inspection within normal limits. CARDIOVASCULAR: Heart: Regular rate and rhythm, no murmurs, gallops or rubs. Peripheral pulses present within normal limits, no cyanosis, clubbing or edemas. No pulsatile abdominal mass RESPIRATORY: Lungs clear to auscultation and percussion, no wheezing, no rubs GASTROINTESTINAL AND LIVER: Abdomen: Soft, non tenderness, non-distended, no hernias, no masses, no organomegaly, no ascites, no guarding, no rebound tenderness, normoactive bowel sounds. Rectal: Deferred. [no perianal disease, no masses, stool normal, occult blood negative.] GENITOURINARY: [Male genitalia within normal limits.][Female genitalia within normal limits.] EXTREMITIES: No cyanosis, clubbing or edema. Result Diagram: 08/15/18 1040 08/15/18 1040 Results 24hrs Laboratory Tests Test 08/15/18 10:40 White Blood Count 21.3 H Red Blood Count 3.79 #L Hemoglobin 8.7 #L Hematocrit 27.5 #L Mean Corpuscular Volume 72.6 L Mean Corpuscular Hemoglobin 23.0 L Mean Corpuscular Hemoglobin Concent 31.6 L Red Cell Distribution Width 15.7 H Platelet Count 251 # Mean Platelet Volume 10.7 H Immature Granulocytes % 0.900 H Neutrophils % 80.4 H Lymphocytes % 12.2 L Monocytes % 5.4 Eosinophils % 0.7 Basophils % 0.4 Nucleated Red Blood Cells % 0.0 Immature Granulocytes # 0.190 H Neutrophils # 17.1 H Lymphocytes # 2.6 Monocytes # 1.2 H Eosinophils # 0.1 Basophils # 0.1 Nucleated Red Blood Cells # 0.0 Erythrocyte Sedimentation Rate 22 Sodium Level 133 L Potassium Level 3.3 L Chloride Level 100 Carbon Dioxide Level 25 Anion Gap 8 Blood Urea Nitrogen 7 # Creatinine 0.43 L Est Glomerular Filtrat Rate mL/min > 60 Glucose Level 364 #H Calcium Level 8.0 L Total Bilirubin 0.4 Direct Bilirubin 0.00 Indirect Bilirubin 0.4 Aspartate Amino Transf (AST/SGOT) 16 Alanine Aminotransferase (ALT/SGPT) 16 Alkaline Phosphatase 67 Total Protein 5.6 #L Albumin 3.2 L Globulin 2.40 Albumin/Globulin Ratio 1.33 Exam/Review of Systems Vital Signs Vitals Vital Signs Date Temp Pulse Resp B/P (MAP) Pulse Ox O2 O2 Flow FiO2 Time Delivery Rate 08/15/18 89 12:28 08/15/18 98.2 18 145/83 97 11:55 (103) 08/14/18 Nasal 2.0 20:30 Cannula Intake and Output 08/14/18 08/14/18 08/15/18 1515:00 23:00 07:00 IntakeIntake Total 1740 ml 1375 ml OutputOutput Total 700 ml 1100 ml BalanceBalance 1040 ml 275 ml Medications Medications Current Medications Dextrose/Sodium Chloride 1,000 ml @ 125 mls/hr Q8H IV Last administered on 08/15/18 09:12; Admin Dose 125 MLS/HR; Start 08/13/18 at 19:34 IV Flush (NS 3 ml) 3 ml PER PROTOCOL IV ; Start 08/13/18 at 20:00 Ondansetron HCl (Zofran Inj) 4 mg Q6H PRN IV NAUSEA AND/OR VOMITING Last administered on 08/15/18 12:04; Admin Dose 4 MG; Start 08/13/18 at 20:00 Famotidine (Pepcid Iv) 20 mg Q12 IV Last administered on 08/15/18 08:31; Admin Dose 20 MG; Start 08/13/18 at 21:00 Duloxetine HCl (Cymbalta) 60 mg DAILY PO Last administered on 08/15/18 08:32; Admin Dose 60 MG; Start 08/14/18 at 09:00 Oxycodone HCl (Oxycontin) 15 mg Q12 PO Last administered on 08/15/18 08:31; Admin Dose 15 MG; Start 08/14/18 at 09:00 Hydromorphone HCl (Dilaudid) 2 mg Q4H PRN IV SEVERE PAIN LEVEL 7-10 Last administered on 08/15/18 10:57; Admin Dose 2 MG; Start 08/14/18 at 07:30 Vancomycin HCl (Vancomycin Oral Syringe) 250 mg Q6 PO Last administered on 08/15/18 12:01; Admin Dose 250 MG; Start 08/14/18 at 14:30; Stop 08/21/18 at 14:29 Metronidazole (Flagyl) 500 mg Q8 PO Last administered on 08/15/18 13:28; Admin Dose 500 MG; Start 08/14/18 at 14:00; Stop 08/21/18 at 13:59 Levothyroxine Sodium (Synthroid) 50 mcg BEFORE BREAKFAST PO Last administered on 08/15/18 07:06; Admin Dose 50 MCG; Start 08/15/18 at 07:00 Alteplase, Recombinant (Cathflo (Activase)) 2 mg MAY REPEAT X1 PRN CATHETER IF CATHETER REMAINS OCCULUDED Last administered on 08/15/18at 07:02; Admin Dose 2 MG; Start 08/15/18 at 06:00 VADIM MCGILL Aug 15, 2018 14:17
[2018-08-15] MEDS ORDERED: POTASSIUM CHLORIDE (SR) 20 MEQ TAB PO ONE (16:00)
[2018-08-16] VITALS (15 sets, daily range): BP systolic 111–132; BP diastolic 57–91; PULSE 64–85; RESP 16–18
[2018-08-16] MEDS: DEXTROSE 5%-0.45% NACL 1,000 ML IV SCH ×3 (00:40→19:34)
[2018-08-16] MEDS: HYDROmorphONE 2 MG/ML SYG IV PRN ×6 (02:56→22:45)
[2018-08-16] MEDS: LEVOTHYROXINE 50 MCG TAB PO SCH (06:27)
[2018-08-16] MEDS: metroNIDAZOLE 500 MG TAB PO SCH ×3 (06:27→21:06)
[2018-08-16] MEDS: VANCOMYCIN HCL 250 MG/5ML POSYG PO SCH ×4 (06:27→23:27)
[2018-08-16] MEDS: oxyCODONE (CR) 15 MG TAB [oxyCONTIN] PO SCH ×2 (09:16→21:07)
[2018-08-16] MEDS: DULOXETINE 30 MG CAP DR PO SCH (09:52)
[2018-08-16] MEDS: FAMOTIDINE 20 MG INJ IV SCH ×2 (09:52→21:07)
--- NOTE | 2018-08-16 11:58 | PN ---
Date/Time of Note Date/Time of Note DATE: 08/16/18 TIME: 11:56 Assessment/Plan VTE Prophylaxis Risk score (from [facility])>0 risk: 7 SCD applied (from [facility]): No SCD contraindicated: other (scds) Pharmacological prophylaxis: other Lines/Catheters IV Catheter Type (from [facility]rs[facility]): PICC Line Central line still needed: Yes (meds) Urinary Cath still in place: No Assessment/Plan Hospital Course Summary Assessment and Plan: Assessment: Colitis, involving the ascending, transverse, descending colon. -CDIFF neg, stool cx- prelim- coliform -Fecal leukocytes ordered- currently pending Leukocytosis- resolved Abdominal pain Hodgkin's lymphoma of the lung History of thyroid cancer diagnosed in 2007, status post surgery History of PE- s/p IVC filter placement Plan: Patient has been empirically started on vancomycin/Flagyl - WBC now WNL, however pt continues to have frequent diarrhea Plan for flex sig with bx tomorrow- to r/o other etiology - keep clear liquid today to help with prep- will given x2 tap water enema in am prior to flex sigmoidoscopy. clear liquid diet today- NPO after 0500 Monitor labs- will transfuse 1 unit PRBCs Continue collaboration with Dr. Ewing Subjective: Course reviewed with nursing staff Patient interviewed and examined All labs, imaging and other results reviewed Previously documented CDIFF- pt had been on CDIFF treatment, WBCs have normalized However she continues to have multiple Bm, 17 documented over night, today patient states she has had x7, although less volume No c/o fever, abd pain improved. NO c/o n/v today. Stool cx prelim shows coliform- Discussed with patient who verbalizes understanding and is in agreement. PHYSICAL EXAMINATION: GENERAL: Alert & oriented x 3, in no acute distress SKIN: No lesions CHEST: Inspection within normal limits. CARDIOVASCULAR: Heart: Regular rate and rhythm RESPIRATORY: Lungs clear to auscultation and percussion, no wheezing, no rubs GASTROINTESTINAL AND LIVER: Abdomen: Soft, generalized tenderness, non- distended, no hernias, no masses, no organomegaly, no ascites, no guarding, no rebound tenderness, normoactive bowel sounds. Rectal: Deferred. Result Diagram: 08/15/18 1040 08/15/18 1040 Exam/Review of Systems Vital Signs Vitals Vital Signs Date Temp Pulse Resp B/P (MAP) Pulse Ox O2 O2 Flow FiO2 Time Delivery Rate 08/16/18 66 08:00 08/16/18 97.9 18 111/57 98 Room Air 07:15 (75) 08/15/18 2.0 20:30 Intake and Output 08/15/18 08/15/18 08/16/18 1515:00 23:00 07:00 IntakeIntake Total 1925 ml 2848 ml BalanceBalance 1925 ml 2848 ml Medications Medications Current Medications Dextrose/Sodium Chloride 1,000 ml @ 125 mls/hr Q8H IV Last administered on 08/16/18 00:40; Admin Dose 125 MLS/HR; Start 08/13/18 at 19:34 IV Flush (NS 3 ml) 3 ml PER PROTOCOL IV ; Start 08/13/18 at 20:00 Ondansetron HCl (Zofran Inj) 4 mg Q6H PRN IV NAUSEA AND/OR VOMITING Last administered on 08/15/18 12:04; Admin Dose 4 MG; Start 08/13/18 at 20:00 Famotidine (Pepcid Iv) 20 mg Q12 IV Last administered on 08/16/18 09:52; Admin Dose 20 MG; Start 08/13/18 at 21:00 Duloxetine HCl (Cymbalta) 60 mg DAILY PO Last administered on 08/16/18 09:52; Admin Dose 60 MG; Start 08/14/18 at 09:00 Oxycodone HCl (Oxycontin) 15 mg Q12 PO Last administered on 08/16/18 09:16; Admin Dose 15 MG; Start 08/14/18 at 09:00 Hydromorphone HCl (Dilaudid) 2 mg Q4H PRN IV SEVERE PAIN LEVEL 7-10 Last administered on 08/16/18 10:59; Admin Dose 2 MG; Start 08/14/18 at 07:30 Vancomycin HCl (Vancomycin Oral Syringe) 250 mg Q6 PO Last administered on 08/16/18 06:27; Admin Dose 250 MG; Start 08/14/18 at 14:30; Stop 08/21/18 at 14:29 Metronidazole (Flagyl) 500 mg Q8 PO Last administered on 08/16/18 06:27; Admin Dose 500 MG; Start 08/14/18 at 14:00; Stop 08/21/18 at 13:59 Levothyroxine Sodium (Synthroid) 50 mcg BEFORE BREAKFAST PO Last administered on 08/16/18at 06:27; Admin Dose 50 MCG; Start 08/15/18 at 07:00 Alteplase, Recombinant (Cathflo (Activase)) 2 mg MAY REPEAT X1 PRN CATHETER IF CATHETER REMAINS OCCULUDED Last administered on 08/15/18at 07:02; Admin Dose 2 MG; Start 08/15/18 at 06:00 Zolpidem Tartrate (Ambien) 5 mg HS MAY REPEAT X 1 PRN PO INSOMNIA; Start 08/16/18 at 11:30 Cholecalciferol (Vitamin D) 2,000 unit DAILY PO ; Start 08/17/18 at 09:00 Zinc Sulfate (Zinc Sulfate) 220 mg DAILY PO ; Start 08/17/18 at 09:00 VADIM MCGILL Aug 16, 2018 11:58
--- NOTE | 2018-08-16 13:08 | PN ---
Date/Time of Note Date/Time of Note DATE: 08/16/18 TIME: 13:06 Assessment/Plan VTE Prophylaxis Risk score (from [facility])>0 risk: 7 [place]CD [place] [facility] [place]CD contraindicated: patient refusal Pharmacological prophylaxis: NA/contraindicated, other Pharm contraindication: bleeding Lines/Catheters IV Catheter Type (from [facility]): PICC Line Central line still needed: Yes Urinary Cath still in place: No Assessment/Plan Hospital Course SUBJECTIVE: Continues to have bloody diarrhea. Abdominal pain well controlled on current drug regimen. OBJECTIVE: Physical Exam General: Adequately build 52 year-old female lying in bed in no apparent distress. HEENT: Normocephalic, atraumatic. Eyes: Anicteric sclerae, conjunctivae clear. ENT: Nasal septum midline, oral mucosa moist. Neck supple, no JVD noticed. Respiratory: Bilaterally clear breath sounds. No use of accessory muscles of res piration. No adventitious breath sounds. Cardiovascular: S1, S2 heard. No murmurs or gallops. Abdomen: Soft and nondistended. Minimal suprapubic tenderness. Bowel sounds positive in all 4 quadrants. Genitourinary: Deferred. Extremities: No cyanosis, no clubbing, no edema. Peripheral pulses palpable. Neurologic: Cranial nerves II through XII grossly intact. The patient is awake, alert, and oriented. Skin: Normal skin turgor. No skin rashes. Labs & Vitals per chart ASSESSMENT & PLAN This is a 52-year-old female with comorbidities including Hodgkin's lymphoma of the lung, history of thyroid cancer status post thyroid surgery,chronic pain syndrome, and. The patient came to the emergency room with history of PE status post IVC filter placement abdominal pain and bloody stools. The patient's CT scan of the abdomen and pelvis was showing colitis involving the ascending, transverse, descending colon. The patient also had underlying leukocytosis and bandemia. Therefore, the patient was admitted to inpatient setting for further treatment and evaluation. 1. Acute pancolitis. -Etiology unclear. -Stool studies negative so far. -On Flagyl plus vancomycin. -Being followed by gastroenterology. -Schedule for colonoscopy. 2. Hodgkin's lymphoma of the lung. -Outpatient oncology follow-up. 3. History of PE. -Status post IVC filter placement. 4. Anemia. -Microcytic and hypochromic. -Probably anemia of acute blood loss. -Monitor H&H closely. -Obtain iron panel. -Stool for OB x1+. 5. Chronic pain syndrome. -Obtain pain management consult. 6. Fluids, electrolytes, and nutrition. -Clear liquid diet. 7. DVT prophylaxis -Bilateral SCDs. 8. Plan. -Continue antimicrobials. -Continue pain control. -Await colonoscopy. The patient was seen in collaboration with Dr. Montes. Result Diagram: 08/16/18 1212 08/15/18 1040 Results 24hrs Laboratory Tests Test 08/16/18 12:12 White Blood Count 8.3 # Red Blood Count 3.19 L Hemoglobin 7.3 L Hematocrit 23.4 L Mean Corpuscular Volume 73.4 L Mean Corpuscular Hemoglobin 22.9 L Mean Corpuscular Hemoglobin Concent 31.2 L Red Cell Distribution Width 15.7 H Platelet Count 211 Mean Platelet Volume 10.6 H Immature Granulocytes % 0.400 Neutrophils % 74.2 Lymphocytes % 17.3 Monocytes % 5.8 Eosinophils % 1.9 Basophils % 0.4 Nucleated Red Blood Cells % 0.0 Immature Granulocytes # 0.030 Neutrophils # 6.2 Lymphocytes # 1.4 Monocytes # 0.5 Eosinophils # 0.2 Basophils # 0.0 Nucleated Red Blood Cells # 0.0 Exam/Review of Systems Vital Signs Vitals Vital Signs Date Temp Pulse Resp B/P (MAP) Pulse Ox O2 O2 Flow FiO2 Time Delivery Rate 08/16/18 98.4 79 18 132/91 100 Room Air 11:15 (105) 08/15/18 2.0 20:30 Intake and Output 08/15/18 08/15/18 08/16/18 1515:00 23:00 07:00 IntakeIntake Total 1925 ml 2848 ml BalanceBalance 1925 ml 2848 ml Medications Medications Current Medications Dextrose/Sodium Chloride 1,000 ml @ 125 mls/hr Q8H IV Last administered on 08/16/18at 12:43; Admin Dose 125 MLS/HR; Start 08/13/18 at 19:34 IV Flush (NS 3 ml) 3 ml PER PROTOCOL IV ; Start 08/13/18 at 20:00 Ondansetron HCl (Zofran Inj) 4 mg Q6H PRN IV NAUSEA AND/OR VOMITING Last administered on 08/15/18at 12:04; Admin Dose 4 MG; Start 08/13/18 at 20:00 Famotidine (Pepcid Iv) 20 mg Q12 IV Last administered on 08/16/18 09:52; Admin Dose 20 MG; Start 08/13/18 at 21:00 Duloxetine HCl (Cymbalta) 60 mg DAILY PO Last administered on 08/16/18 09:52; Admin Dose 60 MG; Start 08/14/18 at 09:00 Oxycodone HCl (Oxycontin) 15 mg Q12 PO Last administered on 08/16/18 09:16; Admin Dose 15 MG; Start 08/14/18 at 09:00 Hydromorphone HCl (Dilaudid) 2 mg Q4H PRN IV SEVERE PAIN LEVEL 7-10 Last administered on 08/16/18 10:59; Admin Dose 2 MG; Start 08/14/18 at 07:30 Vancomycin HCl (Vancomycin Oral Syringe) 250 mg Q6 PO Last administered on 08/16/18 12:43; Admin Dose 250 MG; Start 08/14/18 at 14:30; Stop 08/21/18 at 14:29 Metronidazole (Flagyl) 500 mg Q8 PO Last administered on 08/16/18 06:27; Admin Dose 500 MG; Start 08/14/18 at 14:00; Stop 08/21/18 at 13:59 Levothyroxine Sodium (Synthroid) 50 mcg BEFORE BREAKFAST PO Last administered on 08/16/18 06:27; Admin Dose 50 MCG; Start 08/15/18 at 07:00 Alteplase, Recombinant (Cathflo (Activase)) 2 mg MAY REPEAT X1 PRN CATHETER IF CATHETER REMAINS OCCULUDED Last administered on 08/15/18at 07:02; Admin Dose 2 MG; Start 08/15/18 at 06:00 Zolpidem Tartrate (Ambien) 5 mg HS MAY REPEAT X 1 PRN PO INSOMNIA; Start 08/16/18 at 11:30 Cholecalciferol (Vitamin D) 2,000 unit DAILY PO ; Start 08/17/18 at 09:00 Zinc Sulfate (Zinc Sulfate) 220 mg DAILY PO ; Start 08/17/18 at 09:00 SUZANNE STEVENSON NP Aug 16, 2018 13:08
[2018-08-16] MEDS: DIPHENHYDRAMINE 50 MG INJ IV PRN ×2 (14:03→23:29)
[2018-08-16] MEDS: ZOLPIDEM 5 MG TAB PO PRN ×2 (21:07→23:20)
[2018-08-16] MEDS ORDERED: ARTIFICIAL TEARS 15 ML OPH BOTH EYES PRN (22:00)
[2018-08-17] VITALS (17 sets, daily range): BP systolic 114–164; BP diastolic 61–85; PULSE 62–107; RESP 17–21
[2018-08-17] MEDS ORDERED: HYDROmorphONE 1 MG/ML SYG IV ONE (01:30)
[2018-08-17] MEDS: HYDROmorphONE 2 MG/ML SYG IV PRN ×7 (02:51→23:33)
[2018-08-17] MEDS ORDERED: LORAZEPAM 2 MG INJ IV ONE (05:00)
[2018-08-17] MEDS: ARTIFICIAL TEARS 15 ML OPH BOTH EYES PRN ×2 (05:27→21:50)
[2018-08-17] MEDS: DEXTROSE 5%-0.45% NACL 1,000 ML IV SCH (05:29)
[2018-08-17] MEDS: VANCOMYCIN HCL 250 MG/5ML POSYG PO SCH ×4 (06:03→23:34)
[2018-08-17] MEDS: metroNIDAZOLE 500 MG TAB PO SCH ×3 (06:03→21:12)
[2018-08-17] MEDS: DIPHENHYDRAMINE 50 MG INJ IV PRN ×3 (06:03→23:33)
[2018-08-17] MEDS: LEVOTHYROXINE 50 MCG TAB PO SCH (06:03)
--- NOTE | 2018-08-17 07:14 | CONS ---
Date/Time of Note Date/Time of Note DATE: 08/17/18 TIME: 07:09 Assessment/Plan Assessment/Plan Assessment/Plan Abdominal pain secondary to colitis by CT scan findings Patient is to have a colonoscopy scheduled Abdominal pain out of control Workup currently being done by Adryan Galicia NP History of skin's lymphoma status post XRT/chemotherapy with recurrence No plan on aggressive intervention at this time secondary to patient presented with elevated white blood cell count fevers and bloody diarrhea Abdominal pain Patient has minimal bowel sounds any on clinical examination. Because of this I will discontinue her current OxyContin continue with just as needed doses of IV Dilaudid. She was on a fairly high dose of 3 different opioids as an outpatient there is a chance that she may withdraw but will control this only with Dilaudid IV secondary to patient's current abdominal complaints and lack of bowel sounds. I have explained this to her in detail. We will add on relist or to her regimen to lessen the incidence of opioid bowel syndrome Result Diagram: 08/17/18 0451 08/17/18 0451 Results 24hrs Laboratory Tests Test 08/16/18 12:12 08/17/18 04:51 White Blood Count 8.3 # 4.5 #L Red Blood Count 3.19 L 3.41 L Hemoglobin 7.3 L 7.9 L Hematocrit 23.4 L 25.5 L Mean Corpuscular Volume 73.4 L 74.8 L Mean Corpuscular Hemoglobin 22.9 L 23.2 L Mean Corpuscular Hemoglobin Concent 31.2 L 31.0 L Red Cell Distribution Width 15.7 H 15.7 H Platelet Count 211 176 Mean Platelet Volume 10.6 H 10.5 H Immature Granulocytes % 0.400 0.400 Neutrophils % 74.2 66.2 Lymphocytes % 17.3 22.4 Monocytes % 5.8 6.7 Eosinophils % 1.9 3.4 Basophils % 0.4 0.9 Nucleated Red Blood Cells % 0.0 0.0 Immature Granulocytes # 0.030 0.020 Neutrophils # 6.2 3.0 Lymphocytes # 1.4 1.0 Monocytes # 0.5 0.3 Eosinophils # 0.2 0.2 Basophils # 0.0 0.0 Nucleated Red Blood Cells # 0.0 0.0 Sodium Level 135 Potassium Level 2.5 *L Chloride Level 99 Carbon Dioxide Level 28 Anion Gap 8 Blood Urea Nitrogen < 2 L Creatinine 0.37 L Est Glomerular Filtrat Rate mL/min > 60 Glucose Level 484 *H Hemoglobin A1c 5.4 Calcium Level 7.5 L Phosphorus Level 3.1 Magnesium Level 1.4 L Total Bilirubin 0.2 Direct Bilirubin 0.00 Indirect Bilirubin 0.2 Aspartate Amino Transf (AST/SGOT) 24 Alanine Aminotransferase (ALT/SGPT) 21 Alkaline Phosphatase 58 Total Protein 5.1 L Albumin 2.9 L Globulin 2.20 Albumin/Globulin Ratio 1.31 Consultation Date/Type/Reason Admit Date/Time Aug 13, 2018 at 17:22 Hx of Present Illness 52-year-old female who presents with abdominal discomfort. I am asked to do a pain management consultation. Patient has a history of Hodgkin's lymphoma status post chemotherapy and radiation treatments. Recurrence of lymphoma 2017 patient states she received chemotherapy at that time. The exact date is unknown at this time. She began to have increasing abdominal discomfort prior to this hospitalization with generalized abdominal pain which radiates into her back and bilateral flanks. Patient developed bloody diarrhea associated with it. She states her pain becomes worse when she has distention and diarrhea but is not alleviated after she has a bloody bowel movement. Pain is out of control 10/10 with pain control medications Dilaudid intravenously she is better controlled. She is also receiving OxyContin 15 p.o. twice daily. As an outpatient she was taking OxyContin 15 mg 3 times daily, Dilaudid 8 mg every 4-6 as needed, Falls 10/325 as needed. Patient states she was taking this regimen for Hodgkin's pain in her cervical spine and lungs. Patient is known to have metastatic disease to her lungs per patient. She describes her abdominal pain is crampy continuous with peaks and troughs associated with distention and diarrhea. Constitutional: chills, diaphoresis Eyes: no complaints; No pain, No discharge, No redness, No visual change, No other ENT: no complaints; No bleeding, No pain, No congestion, No discharge, No dysphagia, No sore throat, No other Respiratory: no complaints Cardiovascular: no complaints; No chest pain, No edema, No lightheadedness, No orthopenea, No palpitations, No paroxysmal nocturnal dyspnea, No other Gastrointestinal: other (Refer to history of present illness) Genitourinary: No no complaints, No bleeding, No dysuria, No discharge, No flank pain, No hematuria, No other Musculoskeletal: back pain Neurologic: no complaints Endocrine: no complaints; No polyuria, No polydypsia, No dry skin, No temp intolerance, No other Psychological: depression Past Medical History Medical History: cancer, other (Hodgkin's lymphoma) Medications Current Medications IV Flush (NS 3 ml) 3 ml PER PROTOCOL IV ; Start 08/13/18 at 20:00 Ondansetron HCl (Zofran Inj) 4 mg Q6H PRN IV NAUSEA AND/OR VOMITING Last administered on 08/15/18 12:04; Admin Dose 4 MG; Start 08/13/18 at 20:00 Famotidine (Pepcid Iv) 20 mg Q12 IV Last administered on 08/16/18 21:07; Admin Dose 20 MG; Start 08/13/18 at 21:00 Duloxetine HCl (Cymbalta) 60 mg DAILY PO Last administered on 08/16/18 09:52; Admin Dose 60 MG; Start 08/14/18 at 09:00 Oxycodone HCl (Oxycontin) 15 mg Q12 PO Last administered on 08/16/18 21:07; Admin Dose 15 MG; Start 08/14/18 at 09:00 Hydromorphone HCl (Dilaudid) 2 mg Q4H PRN IV SEVERE PAIN LEVEL 7-10 Last administered on 08/17/18 02:51; Admin Dose 2 MG; Start 08/14/18 at 07:30 Vancomycin HCl (Vancomycin Oral Syringe) 250 mg Q6 PO Last administered on 08/17/18 06:03; Admin Dose 250 MG; Start 08/14/18 at 14:30; Stop 08/21/18 at 14:29 Metronidazole (Flagyl) 500 mg Q8 PO Last administered on 08/17/18 06:03; Admin Dose 500 MG; Start 08/14/18 at 14:00; Stop 08/21/18 at 13:59 Levothyroxine Sodium (Synthroid) 50 mcg BEFORE BREAKFAST PO Last administered on 08/17/18 06:03; Admin Dose 50 MCG; Start 08/15/18 at 07:00 Alteplase, Recombinant (Cathflo (Activase)) 2 mg MAY REPEAT X1 PRN CATHETER IF CATHETER REMAINS OCCULUDED Last administered on 1/20/19at 07:02; Admin Dose 2 MG; Start 08/15/18 at 06:00 Zolpidem Tartrate (Ambien) 5 mg HS MAY REPEAT X 1 PRN PO INSOMNIA Last administered on 08/16/18at 23:20; Admin Dose 5 MG; Start 08/16/18 at 11:30 Cholecalciferol (Vitamin D) 2,000 unit DAILY PO ; Start 08/17/18 at 09:00 Zinc Sulfate (Zinc Sulfate) 220 mg DAILY PO ; Start 08/17/18 at 09:00 Diphenhydramine HCl (Benadryl) 25 mg Q6H PRN IV ITCHING Last administered on 08/17/18at 06:03; Admin Dose 25 MG; Start 08/16/18 at 14:00 Eye Lubricant (Artificial Tears Oph) 1 drop Q6H PRN BOTH EYES DRY EYES Last adm inistered on 08/17/18at 05:27; Admin Dose 1 DROP; Start 08/16/18 at 23:30 Potassium Chloride 40 meq/ Sodium Chloride 1,000 ml @ 125 mls/hr Q8H IV ; Start 08/17/18 at 07:00; Status UNV Allergies: Coded Allergies: Iodine and Iodide Containing Produc (Verified Allergy, Unknown, 08/13/18) Penicillins (Verified Allergy, Unknown, 08/13/18) ketorolac (Verified Allergy, Unknown, 08/13/18) morphine (Verified Allergy, Unknown, 08/13/18) vancomycin (Verified Allergy, Unknown, 08/13/18) Past Surgical History Past Surgical Hx: other (See HPI) Social History Alcohol Use: none Smoking Status: Never smoker Drug Use: none Exam/Review of Systems Vital Signs Vitals Vital Signs Date Temp Pulse Resp B/P (MAP) Pulse Ox O2 O2 Flow FiO2 Time Delivery Rate 08/17/18 98.3 101 18 136/79 94 Room Air 04:27 (98) 08/15/18 2.0 20:30 Intake and Output 08/16/18 08/16/18 08/17/18 1515:00 23:00 07:00 IntakeIntake Total 2230 ml 1300 ml BalanceBalance 2230 ml 1300 ml Exam Constitutional: distress, obese Psych: anxiety, depression Head: normocephalic, atraumatic; No lacerations, No hematomas, No other Eyes: nl conjunctiva, EOMI, nl lids, nl sclera, PERRL; No icteric, No fundi, disc, No other Neck: supple, non-tender; No jvd, No bruits, No masses, No thyromegaly, No nuchal rigidity, No other Respiratory: clear to auscultation, normal air movement; No congested cough, No crackles/rales, No diminished breath sounds, No intercostal retraction, No labored breathing, No respirations, No tactile fremitus, No wheezing, No other Cardiovascular: regular rate and rhythm, nl pulses; No bruits, No diastolic murmur, No edema, No gallop, No irregular rhythm, No jugular venous distention (JVD), No murmurs/extra sounds, No rub, No systolic murmur, No S3, No S4, No other Gastrointestinal: other (No bowel sounds distended bilateral 4 quadrants without gross organomegaly, gross rebound) Neurological: KNOCKER OUT II-XII intact, nl mental status, nl speech, nl strength; No confused, No DTR's symmetric, No focal weakness, No lethargic, No numbness, No reflexes, No unresponsive, No other Medications Medications Current Medications IV Flush (NS 3 ml) 3 ml PER PROTOCOL IV ; Start 08/13/18 at 20:00 Ondansetron HCl (Zofran Inj) 4 mg Q6H PRN IV NAUSEA AND/OR VOMITING Last administered on 08/15/18 12:04; Admin Dose 4 MG; Start 08/13/18 at 20:00 Famotidine (Pepcid Iv) 20 mg Q12 IV Last administered on 08/16/18 21:07; Admin Dose 20 MG; Start 08/13/18 at 21:00 Duloxetine HCl (Cymbalta) 60 mg DAILY PO Last administered on 08/16/18 09:52; Admin Dose 60 MG; Start 08/14/18 at 09:00 Oxycodone HCl (Oxycontin) 15 mg Q12 PO Last administered on 08/16/18 21:07; Admin Dose 15 MG; Start 08/14/18 at 09:00 Hydromorphone HCl (Dilaudid) 2 mg Q4H PRN IV SEVERE PAIN LEVEL 7-10 Last ad ministered on 08/17/18 02:51; Admin Dose 2 MG; Start 08/14/18 at 07:30 Vancomycin HCl (Vancomycin Oral Syringe) 250 mg Q6 PO Last administered on 08/17/18at 06:03; Admin Dose 250 MG; Start 08/14/18 at 14:30; Stop 08/21/18 at 14:29 Metronidazole (Flagyl) 500 mg Q8 PO Last administered on 08/17/18at 06:03; Admin Dose 500 MG; Start 08/14/18 at 14:00; Stop 08/21/18 at 13:59 Levothyroxine Sodium (Synthroid) 50 mcg BEFORE BREAKFAST PO Last administered on 08/17/18at 06:03; Admin Dose 50 MCG; Start 08/15/18 at 07:00 Alteplase, Recombinant (Cathflo (Activase)) 2 mg MAY REPEAT X1 PRN CATHETER IF CATHETER REMAINS OCCULUDED Last administered on 08/15/18at 07:02; Admin Dose 2 MG; Start 08/15/18 at 06:00 Zolpidem Tartrate (Ambien) 5 mg HS MAY REPEAT X 1 PRN PO INSOMNIA Last administered on 08/16/18at 23:20; Admin Dose 5 MG; Start 08/16/18 at 11:30 Cholecalciferol (Vitamin D) 2,000 unit DAILY PO ; Start 08/17/18 at 09:00 Zinc Sulfate (Zinc Sulfate) 220 mg DAILY PO ; Start 08/17/18 at 09:00 Diphenhydramine HCl (Benadryl) 25 mg Q6H PRN IV ITCHING Last administered on 08/17/18at 06:03; Admin Dose 25 MG; Start 08/16/18 at 14:00 Eye Lubricant (Artificial Tears Oph) 1 drop Q6H PRN BOTH EYES DRY EYES Last administered on 08/17/18at 05:27; Admin Dose 1 DROP; Start 08/16/18 at 23:30 Potassium Chloride 40 meq/ Sodium Chloride 1,000 ml @ 125 mls/hr Q8H IV ; Start 08/17/18 at 07:00; Status HEATHER LAWSON Aug 17, 2018 07:14
[2018-08-17] MEDS: CHOLECALCIFEROL 2,000 UNIT CAP PO SCH (09:00)
[2018-08-17] MEDS: DULOXETINE 30 MG CAP DR PO SCH (09:00)
[2018-08-17] MEDS: ZINC SULFATE 220 MG CAP PO SCH (09:00)
[2018-08-17] MEDS: FAMOTIDINE 20 MG INJ IV SCH ×2 (09:13→21:12)
--- NOTE | 2018-08-17 10:16 | PN ---
Date/Time of Note Date/Time of Note DATE: 08/17/18 TIME: 10:15 Assessment/Plan VTE Prophylaxis Risk score (from [facility] [place])>0 risk: 9 SCD applied (from [facility] [place]): No SCD contraindicated: patient refusal, other Pharmacological prophylaxis: NA/contraindicated Pharm contraindication: bleeding Lines/Catheters IV C[facility]ter Type (from [facility]): PICC Line Central line still needed: Yes Urinary Cath still in place: No Assessment/Plan Hospital Course SUBJECTIVE: Continues to have bloody diarrhea. Abdominal pain well controlled on current drug regimen. OBJECTIVE: Physical Exam General: Adequately build 52 year-old female lying in bed in no apparent distress. HEENT: Normocephalic, atraumatic. Eyes: Anicteric sclerae, conjunctivae clear. ENT: Nasal septum midline, oral mucosa moist. Neck supple, no JVD noticed. Respiratory: Bilaterally clear breath sounds. No use of accessory muscles of res piration. No adventitious breath sounds. Cardiovascular: S1, S2 heard. No murmurs or gallops. Abdomen: Soft and nondistended. Minimal suprapubic tenderness. Bowel sounds positive in all 4 quadrants. Genitourinary: Deferred. Extremities: No cyanosis, no clubbing, no edema. Peripheral pulses palpable. Neurologic: Cranial nerves II through XII grossly intact. The patient is awake, alert, and oriented. Skin: Normal skin turgor. No skin rashes. Labs & Vitals per chart ASSESSMENT & PLAN This is a 52-year-old female with comorbidities including Hodgkin's lymphoma of the lung, history of thyroid cancer status post thyroid surgery,chronic pain syndrome, and. The patient came to the emergency room with history of PE status post IVC filter placement abdominal pain and bloody stools. The patient's CT scan of the abdomen and pelvis was showing colitis involving the ascending, transverse, descending colon. The patient also had underlying leukocytosis and bandemia. Therefore, the patient was admitted to inpatient setting for further treatment and evaluation. 1. Acute pancolitis. -Etiology unclear. -Stool studies negative so far. -On Flagyl plus vancomycin. -Being followed by gastroenterology. -Schedule for colonoscopy. 2. Hodgkin's lymphoma of the lung. -Outpatient oncology follow-up. 3. History of PE. -Status post IVC filter placement. 4. Anemia. -Microcytic and hypochromic. -Probably anemia of acute blood loss. -Monitor H&H closely. -Obtain iron panel. -Stool for OB x1+. 5. Chronic pain syndrome. -Obtain pain management consult. 6. Hyperglycemia. -Etiology unclear. -Hemoglobin A1c within normal limits although this could be the glycosylated he moglobin from the transfused (donor) blood. -The patient was told by her primary care provider previously that she is borderline diabetic. -Start the patient on sliding scale insulin. 7. Fluids, electrolytes, and nutrition. -N.p.o. for procedure.. 8. DVT prophylaxis -Bilateral SCDs if patient agrees. 9. Plan. -Continue antimicrobials. -Continue pain control. -Await colonoscopy. -Replete electrolytes. -Start sliding scale insulin. The patient was seen in collaboration with Dr. Montes. Result Diagram: 08/17/181 08/17/181 Results 24hrs Laboratory Tests Test 08/16/18 12:12 08/17/18 04:51 White Blood Count 8.3 # 4.5 #L Red Blood Count 3.19 L 3.41 L Hemoglobin 7.3 L 7.9 L Hematocrit 23.4 L 25.5 L Mean Corpuscular Volume 73.4 L 74.8 L Mean Corpuscular Hemoglobin 22.9 L 23.2 L Mean Corpuscular Hemoglobin Concent 31.2 L 31.0 L Red Cell Distribution Width 15.7 H 15.7 H Platelet Count 211 176 Mean Platelet Volume 10.6 H 10.5 H Immature Granulocytes % 0.400 0.400 Neutrophils % 74.2 66.2 Lymphocytes % 17.3 22.4 Monocytes % 5.8 6.7 Eosinophils % 1.9 3.4 Basophils % 0.4 0.9 Nucleated Red Blood Cells % 0.0 0.0 Immature Granulocytes # 0.030 0.020 Neutrophils # 6.2 3.0 Lymphocytes # 1.4 1.0 Monocytes # 0.5 0.3 Eosinophils # 0.2 0.2 Basophils # 0.0 0.0 Nucleated Red Blood Cells # 0.0 0.0 Sodium Level 135 Potassium Level 2.5 *L Chloride Level 99 Carbon Dioxide Level 28 Anion Gap 8 Blood Urea Nitrogen < 2 L Creatinine 0.37 L Est Glomerular Filtrat Rate mL/min > 60 Glucose Level 484 *H Hemoglobin A1c 5.4 Calcium Level 7.5 L Phosphorus Level 3.1 Magnesium Level 1.4 L Total Bilirubin 0.2 Direct Bilirubin 0.00 Indirect Bilirubin 0.2 Aspartate Amino Transf (AST/SGOT) 24 Alanine Aminotransferase (ALT/SGPT) 21 Alkaline Phosphatase 58 Total Protein 5.1 L Albumin 2.9 L Globulin 2.20 Albumin/Globulin Ratio 1.31 Exam/Review of Systems Vital Signs Vitals Vital Signs Date Temp Pulse Resp B/P (MAP) Pulse Ox O2 O2 Flow FiO2 Time Delivery Rate 08/17/18 65 08:00 08/17/18 98.8 18 131/76 96 Room Air 07:15 (94) 08/15/18 2.0 20:30 Intake and Output 08/16/18 08/16/18 08/17/18 1414:59 22:59 06:59 IntakeIntake Total 750 ml 2230 ml 1300 ml BalanceBalance 750 ml 2230 ml 1300 ml Medications Medications Current Medications IV Flush (NS 3 ml) 3 ml PER PROTOCOL IV ; Start 08/13/18 at 20:00 Ondansetron HCl (Zofran Inj) 4 mg Q6H PRN IV NAUSEA AND/OR VOMITING Last administered on 08/15/18 12:04; Admin Dose 4 MG; Start 08/13/18 at 20:00 Famotidine (Pepcid Iv) 20 mg Q12 IV Last administered on 08/17/18 09:13; Admin Dose 20 MG; Start 08/13/18 at 21:00 Duloxetine HCl (Cymbalta) 60 mg DAILY PO Last administered on 08/16/18 09:52; Admin Dose 60 MG; Start 08/14/18 at 09:00 Hydromorphone HCl (Dilaudid) 2 mg Q4H PRN IV SEVERE PAIN LEVEL 7-10 Last administered on 08/17/18 07:05; Admin Dose 2 MG; Start 08/14/18 at 07:30 Vancomycin HCl (Vancomycin Oral Syringe) 250 mg Q6 PO Last administered on 08/17/18 06:03; Admin Dose 250 MG; Start 08/14/18 at 14:30; Stop 08/21/18 at 14:29 Metronidazole (Flagyl) 500 mg Q8 PO Last administered on 08/17/18 06:03; Admin Dose 500 MG; Start 08/14/18 at 14:00; Stop 08/21/18 at 13:59 Levothyroxine Sodium (Synthroid) 50 mcg BEFORE BREAKFAST PO Last administered on 08/17/18at 06:03; Admin Dose 50 MCG; Start 08/15/18 at 07:00 Alteplase, Recombinant (Cathflo (Activase)) 2 mg MAY REPEAT X1 PRN CATHETER IF CATHETER REMAINS OCCULUDED Last administered on 08/15/18at 07:02; Admin Dose 2 M G; Start 08/15/18 at 06:00 Zolpidem Tartrate (Ambien) 5 mg HS MAY REPEAT X 1 PRN PO INSOMNIA Last a dministered on 08/16/18at 23:20; Admin Dose 5 MG; Start 08/16/18 at 11:30 Cholecalciferol (Vitamin D) 2,000 unit DAILY PO ; Start 08/17/18 at 09:00 Zinc Sulfate (Zinc Sulfate) 220 mg DAILY PO ; Start 08/17/18 at 09:00 Diphenhydramine HCl (Benadryl) 25 mg Q6H PRN IV ITCHING Last administered on 08/17/18at 06:03; Admin Dose 25 MG; Start 08/16/18 at 14:00 Eye Lubricant (Artificial Tears Oph) 1 drop Q6H PRN BOTH EYES DRY EYES Last administered on 08/17/18at 05:27; Admin Dose 1 DROP; Start 08/16/18 at 23:30 Potassium Chloride 40 meq/ Sodium Chloride 1,000 ml @ 125 mls/hr Q8H IV ; Start 08/17/18 at 08:00 Methylnaltrexone [place] (Relistor) 12 mg Q48H SC ; Start 08/17/18 at 09:30 Magnesium Sulfate 3 gm/Dextrose 106 ml @ 35.333 mls/ hr ONCE ONCE IVPB ; Start 08/17/18 at 10:30; Stop 08/17/18 at 13:29; Status UNSUZANNE SKY NP Aug 17, 2018 10:16
[2018-08-17] MEDS ORDERED: DEXTROSE 50% 50 ML SYRINGE IV PRN ×2 (10:30)
[2018-08-17] MEDS ORDERED: GLUCAGON 1 MG INJ IM PRN (10:30)
[2018-08-17] MEDS ORDERED: GLUCOSE GEL 15 GRAM TUBE PO PRN ×2 (10:30)
[2018-08-17] MEDS: INSULIN ASPART [NOVOLOG] 3 ML PEN SC SCH ×4 (10:30→21:41)
[2018-08-17] MEDS ORDERED: GLUCOSE GEL 15 GRAM TUBE BUCCAL PRN (10:30)
[2018-08-17] MEDS: POTASSIUM CHLORIDE 40 MEQ in SOD CHLORIDE 0.9% 1,000 ML IV SCH ×3 (10:37→21:41)
[2018-08-17] MEDS: METHYLNALTREXONE 12 MG/0.6 ML VIAL SC SCH (10:38)
[2018-08-17] MEDS ORDERED: MAGNESIUM SULFATE 3 GM in DEXTROSE 5% 100 ML IVPB ONE (11:30)
--- NOTE | 2018-08-17 16:03 | HPN ---
Date/Time of Note Date/Time of Note DATE: 08/17/18 TIME: 16:03 Interval H&P Admission Note Pt. seen H&P reviewed: No system changes PRUDENCE YADAV Aug 17, 2018 16:03
--- NOTE | 2018-08-17 16:05 | PREAC ---
Date/Time of Note Date/Time of Note DATE: 08/17/18 TIME: 16:01 Anesthesia Eval and Record Evaluation Time Pre-Procedure Interview DATE: 08/17/18 TIME: 16:01 Age 52 Sex female NPO: 8 hrs Preoperative diagnosis Rectal Bleeding Planned procedure Colonoscopy Past Medical History Past Medical History: Includes Cardio: HTN, Dyslipidemia Endo: Diabetes, Other (Hypokalemia) Heme: Anemia Surgery & Anesthesia Issues No known issue Meds Anticoagulation: No Beta Mirna within 24 hr: No Reason Beta Mirna not given: Pt. not on B-Mirna Reported Medications Zolpidem Tartrate* (Ambien*) 5 Mg Tablet, 5 MG PO QHS PRN for INSOMNIA, #30 TAB 08/13/18 Cholecalciferol* (Vitamin D3*) 1,000 Unit Tablet, 1000 UNIT PO DAILY, TAB 08/13/18 Cholecalciferol* (Vitamin D3*) 1,000 Unit Tablet, 2000 UNIT PO DAILY, TAB 08/13/18 Potassium Chloride* (Potassium Chloride*) 20 Meq Tablet.er, 20 MEQ PO DAILY, TAB.SA 08/13/18 Duloxetine Hcl* (Cymbalta*) 60 Mg Capsule.dr, 60 MG PO DAILY, CAP 08/13/18 Oxycodone Hcl* (Oxycontin*) 15 Mg Tab.sr.12h, 15 MG PO Q12, TAB 08/13/18 Hydromorphone Hcl* (Dilaudid*) 8 Mg Tablet, 8 MG PO Q6H PRN for PAIN, TAB 08/13/18 Pantoprazole* (Protonix*) 40 Mg Tablet.dr, 40 MG PO AC BREAKFAST, TAB 08/13/18 Levothyroxine Sodium* (Levothyroxine Sodium*) 25 Mcg Tablet, 25 MCG PO BEFORE BREAKFAST, #30 TAB 08/13/18 Current Medications IV Flush (NS 3 ml) 3 ml PER PROTOCOL IV ; Start 08/13/18 at 20:00 Ondansetron HCl (Zofran Inj) 4 mg Q6H PRN IV NAUSEA AND/OR VOMITING Last administered on 08/15/18at 12:04; Admin Dose 4 MG; Start 08/13/18 at 20:00 Famotidine (Pepcid Iv) 20 mg Q12 IV Last administered on 08/17/18at 09:13; Admin Dose 20 MG; Start 08/13/18 at 21:00 Duloxetine HCl (Cymbalta) 60 mg DAILY PO Last administered on 08/16/18 09:52; Admin Dose 60 MG; Start 08/14/18 at 09:00 Vancomycin HCl (Vancomycin Oral Syringe) 250 mg Q6 PO Last administered on 08/17/18at 12:33; Admin Dose 250 MG; Start 08/14/18 at 14:30; Stop 08/21/18 at 14:29 Metronidazole (Flagyl) 500 mg Q8 PO Last administered on 08/17/18at 06:03; Admin Dose 500 MG; Start 08/14/18 at 14:00; Stop 08/21/18 at 13:59 Levothyroxine Sodium (Synthroid) 50 mcg BEFORE BREAKFAST PO Last administered on 08/17/18 06:03; Admin Dose 50 MCG; Start 08/15/18 at 07:00 Alteplase, Recombinant (Cathflo (Activase)) 2 mg MAY REPEAT X1 PRN CATHETER IF CATHETER REMAINS OCCULUDED Last administered on 08/15/18at 07:02; Admin Dose 2 MG; Start 08/15/18 at 06:00 Zolpidem Tartrate (Ambien) 5 mg HS MAY REPEAT X 1 PRN PO INSOMNIA Last admin istered on 08/16/18at 23:20; Admin Dose 5 MG; Start 08/16/18 at 11:30 Cholecalciferol (Vitamin D) 2,000 unit DAILY PO ; Start 08/17/18 at 09:00 Zinc Sulfate (Zinc Sulfate) 220 mg DAILY PO ; Start 08/17/18 at 09:00 Diphenhydramine HCl (Benadryl) 25 mg Q6H PRN IV ITCHING Last administered on 08/17/18at 06:03; Admin Dose 25 MG; Start 08/16/18 at 14:00 Eye Lubricant (Artificial Tears Oph) 1 drop Q6H PRN BOTH EYES DRY EYES Last administered on 08/17/18at 05:27; Admin Dose 1 DROP; Start 08/16/18 at 23:30 Potassium Chloride 40 meq/ Sodium Chloride 1,000 ml @ 125 mls/hr Q8H IV Last administered on 08/17/18at 10:37; Admin Dose 125 MLS/HR; Start 08/17/18 at 08:00 Methylnaltrexone [place] (Relistor) 12 mg Q48H SC Last administered on 08/17/18at 10:38; Admin Dose 12 MG; Start 08/17/18 at 09:30 Insulin Aspart (Novolog Insulin Pen) NOVOLOG *MILD* ALGORITHM Q4H SC ; Start 08/17/18 at 10:30 Miscellaneous Information 1 ea NOTE XX ; Start 08/17/18 at 10:30 Glucose (Glutose) 15 gm Q15M PRN PO DECREASED GLUCOSE; Start 08/17/18 at 10:30 Glucose (Glutose) 22.5 gm Q15M PRN PO DECREASED GLUCOSE; Start 08/17/18 at 10:30 Dextrose (D50w Syringe) 25 ml Q15M PRN IV DECREASED GLUCOSE; Start 08/17/18 at 10:30 Dextrose (D50w Syringe) 50 ml Q15M PRN IV DECREASED GLUCOSE; Start 08/17/18 at 10:30 Glucagon (Glucagen) 1 mg Q15M PRN IM DECREASED GLUCOSE; Start 08/17/18 at 10:30 Glucose (Glutose) 15 gm Q15M PRN BUCCAL DECREASED GLUCOSE; Start 08/17/18 at 10:30 Hydromorphone HCl (Dilaudid) 2 mg Q3 PRN IV SEVERE PAIN LEVEL 7-10 Last administered on 08/17/18at 14:18; Admin Dose 2 MG; Start 08/17/18 at 14:30 Meds reviewed: Yes Allergies Coded Allergies: Iodine and Iodide Containing Produc (Verified Allergy, Unknown, 08/13/18) Penicillins (Verified Allergy, Unknown, 08/13/18) ketorolac (Verified Allergy, Unknown, 08/13/18) morphine (Verified Allergy, Unknown, 08/13/18) vancomycin (Verified Allergy, Unknown, 08/13/18) Allergies Reviewed: Yes Labs/Studies Labs Reviewed: Reviewed by anesthesiologist Result Diagram: 08/17/18 0451 08/17/18 0451 Laboratory Tests 08/17/18 04:51 test: N/A Studies: ECG (n/a), CXR (n/a) Pre-procedure Exam Last vitals Vital Signs Date Temp Pulse Resp B/P (MAP) Pulse Ox O2 O2 Flow FiO2 Time Delivery Rate 08/17/18 64 12:00 08/17/18 98.8 18 128/68 94 Room Air 11:00 (88) 08/15/18 2.0 20:30 Airway: Adequate mouth opening, Adequate thyromental dist Mallampati: Mallampati II Teeth: Normal Lung: Normal Heart: Normal ASA Physical Status ASA physical status: 3 Emergency: None Planned Anesthetic General/MAC: MAC Planned Pain Management Parenteral pain med Pre-operative Attestations Prior to commencing anesthesia and surgery, the patient was re-evaluated, there was verification of: *The patient's identity *The results of appropriate recent lab work and preoperative vital signs *The above evaluation not changing prior to induction *Anesthetic plan, risk benefits, alternative and complications discussed with patient/family; questions answered; patient/family understands, accepts and wishes to proceed. MARTHA HUIZAR MD Aug 17, 2018 16:05
[2018-08-17] MEDS ORDERED: PROPOFOL 60 ML ONE (16:28)
[2018-08-17] MEDS ORDERED: hydrALAzine 20 MG INJ IV PRN (16:30)
[2018-08-17] MEDS ORDERED: ONDANSETRON 4 MG INJ IV PRN (16:30)
[2018-08-17] MEDS ORDERED: LABETALOL HCL 20MG INJ IV PRN (16:30)
[2018-08-17] MEDS ORDERED: HYDROmorphONE 1 MG/5 ML IV SYRINGE IV PRN (16:30)
[2018-08-17] MEDS ORDERED: EPHEDrine SULFATE 50 MG/5 ML SYG IV PRN (16:30)
[2018-08-17] MEDS ORDERED: FENTAnyl 50 MCG/ML VIAL IV PRN ×2 (16:30)
[2018-08-17] MEDS ORDERED: METOCLOPRAMIDE 10 MG INJ IV PRN (16:30)
--- NOTE | 2018-08-17 16:31 | PAC ---
Date/Time of Note Date/Time of Note DATE: 08/17/18 TIME: 16:30 Post-Anesthesia Notes Post-Anesthesia Note Last documented vital signs Vital Signs Date Temp Pulse Resp B/P (MAP) Pulse Ox O2 O2 Flow FiO2 Time Delivery Rate 08/17/18 64 12:00 08/17/18 98.8 72 18 128/68 94 Room Air 16:40 (88) 08/15/18 2.0 20:30 Activity: WNL Respiratory function: WNL Cardiovascular function: WNL Mental status: Baseline Pain reasonably controlled: Yes Hydration appropriate: Yes Nausea/Vomiting absent: Yes MARTHA HUIZAR MD Aug 17, 2018 16:30
[2018-08-17] MEDS: ZOLPIDEM 5 MG TAB PO PRN ×2 (21:12→21:48)
[2018-08-18] VITALS (12 sets, daily range): BP systolic 123–145; BP diastolic 62–77; PULSE 61–83; RESP 18–20
[2018-08-18] MEDS: INSULIN ASPART [NOVOLOG] 3 ML PEN SC SCH ×5 (02:30→20:33)
[2018-08-18] MEDS: HYDROmorphONE 2 MG/ML SYG IV PRN ×8 (02:49→21:58)
[2018-08-18] MEDS: LEVOTHYROXINE 50 MCG TAB PO SCH (06:13)
[2018-08-18] MEDS: metroNIDAZOLE 500 MG TAB PO SCH ×3 (06:13→21:58)
[2018-08-18] MEDS: DIPHENHYDRAMINE 50 MG INJ IV PRN ×2 (06:14→12:46)
[2018-08-18] MEDS: VANCOMYCIN HCL 250 MG/5ML POSYG PO SCH ×3 (06:14→17:33)
[2018-08-18] MEDS: POTASSIUM CHLORIDE 40 MEQ in SOD CHLORIDE 0.9% 1,000 ML IV SCH ×3 (06:22→16:00)
[2018-08-18] MEDS: ARTIFICIAL TEARS 15 ML OPH BOTH EYES PRN (06:24)
[2018-08-18] MEDS: CHOLECALCIFEROL 2,000 UNIT CAP PO SCH (08:51)
[2018-08-18] MEDS: FAMOTIDINE 20 MG INJ IV SCH (08:51)
[2018-08-18] MEDS: DULOXETINE 30 MG CAP DR PO SCH (08:51)
[2018-08-18] MEDS: ZINC SULFATE 220 MG CAP PO SCH (08:51)
[2018-08-18] MEDS: CIPROFLOXACIN 0.3% 2.5 ML OPH BOTH EYES SCH ×4 (08:52→20:33)
[2018-08-18] MEDS: LORAZEPAM 2 MG INJ IV PRN ×3 (14:36→21:21)
--- NOTE | 2018-08-18 14:40 | PN ---
Date/Time of Note Date/Time of Note DATE: 08/18/18 TIME: 14:37 Assessment/Plan VTE Prophylaxis Risk score (from Ns)>0 risk: 9 SCD applied (from [facility] [place]): No SCD contraindicated: patient refusal Pharmacological prophylaxis: NA/contraindicated Pharm contraindication: bleeding Lines/Catheters IV [facility]ter Type (from [facility]): PICC Line Central line still needed: Yes Urinary Cath still in place: No Assessment/Plan Hospital Course SUBJECTIVE: The patient started having some hemoptysis. The patient was unclear to differentiate if it was coughing or vomiting. The patient verbalized history of gastric ulcers. Also complaining of a left chest wall heaviness. OBJECTIVE: Physical Exam General: Adequately build 52 year-old female lying in bed in no apparent distress. HEENT: Normocephalic, atraumatic. Eyes: Anicteric sclerae, conjunctivae clear. ENT: Nasal septum midline, oral mucosa moist. Neck supple, no JVD noticed. Respiratory: Bilaterally clear breath sounds. No use of accessory muscles of respiration. No adventitious breath sounds. Cardiovascular: S1, S2 heard. No murmurs or gallops. Abdomen: Soft and nondistended. Minimal suprapubic tenderness. Bowel sounds positive in all 4 quadrants. Genitourinary: Deferred. Extremities: No cyanosis, no clubbing, no edema. Peripheral pulses palpable. Neurologic: Cranial nerves II through XII grossly intact. The patient is awake, alert, and oriented. Skin: Normal skin turgor. No skin rashes. Labs & Vitals per chart ASSESSMENT & PLAN This is a 52-year-old female with comorbidities including Hodgkin's lymphoma of the lung, history of thyroid cancer status post thyroid surgery,chronic pain syndrome, and. The patient came to the emergency room with history of PE status post IVC filter placement abdominal pain and bloody stools. The patient's CT scan of the abdomen and pelvis was showing colitis involving the ascending, transverse, descending colon. The patient also had underlying leukocytosis and bandemia. Therefore, the patient was admitted to inpatient setting for further treatment and evaluation. 1. Acute pancolitis. -Etiology unclear. -Stool studies negative so far. -On Flagyl plus vancomycin. -Being followed by gastroenterology. -Colonoscopy on 08/17/2018 showed patchy colitis. 2. Hodgkin's lymphoma of the lung. -Outpatient oncology follow-up. 3. History of PE. -Status post IVC filter placement. 4. Anemia. -Microcytic and hypochromic. -Probably anemia of acute blood loss. -Monitor H&H closely. -Obtain iron panel. -Stool for OB x1+. 5. Chronic pain syndrome. -Pain management as per pain team. 6. Hyperglycemia. -Etiology unclear. -Hemoglobin A1c within normal limits although this could be the glycosylated hemoglobin from the transfused (donor) blood. -The patient was told by her primary care provider previously that she is borderline diabetic. -Started the patient on sliding scale insulin on 08/17/2018. 7. Fluids, electrolytes, and nutrition. -Soft diet once able to tolerate. 8. DVT prophylaxis -Bilateral SCDs if patient agrees. 9. Plan. -Continue antimicrobials. -Continue pain control. -Keep the patient n.p.o. except for medications. -Start PPI. -Obtain a stat H&H. -Obtain 12-lead EKG and chest x-ray. The patient was seen in collaboration with Dr. Montes. Result Diagram: 08/18/18 0511 08/18/18 0511 Results 24hrs Laboratory Tests Test 08/17/18 15:17 08/17/18 15:40 08/17/18 17:35 08/17/18 21:19 Bedside Glucose 85 73 89 Potassium Level 3.2 L Test 08/18/18 02:39 08/18/18 05:11 08/18/18 05:12 08/18/18 06:29 Bedside Glucose 102 73 White Blood Count 3.7 L Red Blood Count 3.70 L Hemoglobin 8.5 L Hematocrit 27.4 L Mean Corpuscular 74.1 L Volume Mean Corpuscular 23.0 L Hemoglobin Mean Corpuscular 31.0 L Hemoglobin Concent Red Cell 15.9 H Distribution Width Platelet Count 215 # Mean Platelet Volume 10.0 Immature 0.300 Granulocytes % Neutrophils % 67.9 Lymphocytes % 21.0 Monocytes % 7.0 Eosinophils % 3.0 Basophils % 0.8 Nucleated Red Blood 0.0 Cells % Immature 0.010 Granulocytes # Neutrophils # 2.5 Lymphocytes # 0.8 Monocytes # 0.3 Eosinophils # 0.1 Basophils # 0.0 Nucleated Red Blood 0.0 Cells # Sodium Level 143 Potassium Level 3.7 Chloride Level 101 Carbon Dioxide Level 33 H Anion Gap 9 Blood Urea Nitrogen 3 L Creatinine 0.42 L Est Glomerular > 60 Filtrat Rate mL/min Glucose Level 87 # Calcium Level 8.3 L Phosphorus Level 4.4 Magnesium Level 2.2 Test 08/18/18 07:58 08/18/18 11:09 Bedside Glucose 86 121 Exam/Review of Systems Vital Signs Vitals Vital Signs Date Temp Pulse Resp B/P (MAP) Pulse Ox O2 O2 Flow FiO2 Time Delivery Rate 08/18/18 76 12:45 08/18/18 98.6 18 133/62 94 11:22 (85) 08/17/18 Room Air 17:21 08/17/18 6.0 16:45 Intake and Output 08/17/18 08/17/18 08/18/18 1515:00 23:00 07:00 IntakeIntake Total 1000 ml 1000 ml OutputOutput Total 500 ml BalanceBalance 500 ml 1000 ml Medications Medications Current Medications IV Flush (NS 3 ml) 3 ml PER PROTOCOL IV ; Start 08/13/18 at 20:00 Ondansetron HCl (Zofran Inj) 4 mg Q6H PRN IV NAUSEA AND/OR VOMITING Last administered on 08/15/18at 12:04; Admin Dose 4 MG; Start 08/13/18 at 20:00 Duloxetine HCl (Cymbalta) 60 mg DAILY PO Last administered on 08/18/18 08:51; Admin Dose 60 MG; Start 08/14/18 at 09:00 Vancomycin HCl (Vancomycin Oral Syringe) 250 mg Q6 PO Last administered on 08/18/18at 12:46; Admin Dose 250 MG; Start 08/14/18 at 14:30; Stop 08/21/18 at 14:29 Metronidazole (Flagyl) 500 mg Q8 PO Last administered on 08/18/18 06:13; Admin Dose 500 MG; Start 08/14/18 at 14:00; Stop 08/21/18 at 13:59 Levothyroxine Sodium (Synthroid) 50 mcg BEFORE BREAKFAST PO Last administered on 08/18/18 06:13; Admin Dose 50 MCG; Start 08/15/18 at 07:00 Alteplase, Recombinant (Cathflo (Activase)) 2 mg MAY REPEAT X1 PRN CATHETER IF CATHETER REMAINS OCCULUDED Last administered on 08/15/18at 07:02; Admin Dose 2 MG; Start 08/15/18 at 06:00 Zolpidem Tartrate (Ambien) 5 mg HS MAY REPEAT X 1 PRN PO INSOMNIA Last administered on 08/17/18at 21:48; Admin Dose 5 MG; Start 08/16/18 at 11:30 Cholecalciferol (Vitamin D) 2,000 unit DAILY PO Last administered on 08/18/18at 08:51; Admin Dose 2,000 UNIT; Start 08/17/18 at 09:00 Zinc Sulfate (Zinc Sulfate) 220 mg DAILY PO Last administered on 08/18/18at 08:51; Admin Dose 220 MG; Start 08/17/18 at 09:00 Diphenhydramine HCl (Benadryl) 25 mg Q6H PRN IV ITCHING Last administered on 08/18/18at 12:46; Admin Dose 25 MG; Start 08/16/18 at 14:00 Eye Lubricant (Artificial Tears Oph) 1 drop Q6H PRN BOTH EYES DRY EYES Last adm inistered on 08/18/18at 06:24; Admin Dose 1 DROP; Start 08/16/18 at 23:30 Potassium Chloride 40 meq/ Sodium Chloride 1,000 ml @ 125 mls/hr Q8H IV Last administered on 08/18/18at 06:22; Admin Dose 125 MLS/HR; Start 08/17/18 at 08:00 Methylnaltrexone [place] (Relistor) 12 mg Q48H SC Last administered on 08/17/18at 10:38; Admin Dose 12 MG; Start 08/17/18 at 09:30 Miscellaneous Information 1 ea NOTE XX ; Start 08/17/18 at 10:30 Glucose (Glutose) 15 gm Q15M PRN PO DECREASED GLUCOSE; Start 08/17/18 at 10:30 Glucose (Glutose) 22.5 gm Q15M PRN PO DECREASED GLUCOSE; Start 08/17/18 at 10:30 Dextrose (D50w Syringe) 25 ml Q15M PRN IV DECREASED GLUCOSE; Start 08/17/18 at 10:30 Dextrose (D50w Syringe) 50 ml Q15M PRN IV DECREASED GLUCOSE; Start 08/17/18 at 10:30 Glucagon (Glucagen) 1 mg Q15M PRN IM DECREASED GLUCOSE; Start 08/17/18 at 10:30 Glucose (Glutose) 15 gm Q15M PRN BUCCAL DECREASED GLUCOSE; Start 08/17/18 at 10:30 Hydromorphone HCl (Dilaudid) 2 mg Q3 PRN IV SEVERE PAIN LEVEL 7-10 Last administered on 08/18/18at 12:46; Admin Dose 2 MG; Start 08/17/18 at 14:30 Ciprofloxacin HCl (Ciloxan 0.3% Oph) 1-2 drops in each ey... QID BOTH EYES Last administered on 08/18/18at 12:47; Admin Dose 2 DROP; Start 08/18/18 at 09:00; Stop 08/23/18 at 08:59 Insulin Aspart (Novolog Insulin Pen) NOVOLOG *MILD* ALGORITHM AC MEALS AND BEDTIME SC ; Start 08/18/18 at 11:30 Pantoprazole (Protonix Iv) 40 mg BID@06,18 IV ; Start 08/18/18 at 18:00 Lorazepam (Ativan) 1 mg Q6H PRN IV Anxiety; Start 08/18/18 at 14:30 SUZANNE STEVENSON NP Aug 18, 2018 14:40
--- NOTE | 2018-08-18 17:17 | PN ---
Date/Time of Note Date/Time of Note DATE: 08/18/18 TIME: 17:12 Assessment/Plan VTE Prophylaxis Risk score (from Ns)>0 risk: 9 [place] [facility] [place] SCD contraindicated: other (scds) Pharmacological prophylaxis: other (scds) Lines/Catheters [facility] (from [facility] PICC Line Central line still needed: Yes (meds) Urinary Cath still in place: No Assessment/Plan Hospital Course Summary Assessment and Plan: Assessment: Colitis, involving the ascending, transverse, descending colon. -CDIFF neg, stool cx- prelim- coliform -Fecal leukocytes rare -O&P- neg 08/17/18 sigmoidoscopy Patchy colitis biopsies taken to rule out IBD etiology Leukocytosis- resolved Abdominal pain Hodgkin's lymphoma of the lung History of thyroid cancer diagnosed in 2007, status post surgery History of PE- s/p IVC filter placement Conductivities OD- on ABX gtt Plan: Await biopsy results Diarrhea has been improving therefore it is reasonable to hold off on starting new treatment regimen until biopsy results are reviewed Monitor labs Continue collaboration with Dr. Ewing/Jakob Subjective: Course reviewed with nursing staff Patient interviewed and examined All labs, imaging and other results reviewed Pt denies nausea/vomiting or abd pain, no diarrhea today noted. Pt did have an episodes of hemoptysis, CXR was ordered No c/o n/v less rectal bleeding, HGB has improved today. Continue observation. PHYSICAL EXAMINATION: GENERAL: Alert & oriented x 3, in no acute distress SKIN: No lesions CHEST: Inspection within normal limits. CARDIOVASCULAR: Heart: Regular rate and rhythm RESPIRATORY: Lungs clear to auscultation and percussion, no wheezing, no rubs GASTROINTESTINAL AND LIVER: Abdomen: Soft, generalized tenderness, non- distended, no hernias, no masses, no organomegaly, no ascites, no guarding, no rebound tenderness, normoactive bowel sounds. Rectal: Deferred. Result Diagram: 08/18/18 1455 08/18/18 0511 Results 24hrs Laboratory Tests Test 08/17/18 17:35 08/17/18 21:19 08/18/18 02:39 08/18/18 05:11 Bedside Glucose 73 89 102 White Blood Count 3.7 L Red Blood Count 3.70 L Hemoglobin 8.5 L Hematocrit 27.4 L Mean Corpuscular 74.1 L Volume Mean Corpuscular 23.0 L Hemoglobin Mean Corpuscular 31.0 L Hemoglobin Concent Red Cell 15.9 H Distribution Width Platelet Count 215 # Mean Platelet Volume 10.0 Immature 0.300 Granulocytes % Neutrophils % 67.9 Lymphocytes % 21.0 Monocytes % 7.0 Eosinophils % 3.0 Basophils % 0.8 Nucleated Red Blood 0.0 Cells % Immature 0.010 Granulocytes # Neutrophils # 2.5 Lymphocytes # 0.8 Monocytes # 0.3 Eosinophils # 0.1 Basophils # 0.0 Nucleated Red Blood 0.0 Cells # Sodium Level 143 Potassium Level 3.7 Chloride Level 101 Carbon Dioxide Level 33 H Anion Gap 9 Blood Urea Nitrogen 3 L Creatinine 0.42 L Est Glomerular > 60 Filtrat Rate mL/min Glucose Level 87 # Calcium Level 8.3 L Test 08/18/18 05:12 08/18/18 06:29 08/18/18 07:58 08/18/18 11:09 Phosphorus Level 4.4 Magnesium Level 2.2 Bedside Glucose 73 86 121 Test 08/18/18 14:55 Hemoglobin 9.1 L Hematocrit 28.9 L Exam/Review of Systems Vital Signs Vitals Vital Signs Date Temp Pulse Resp B/P (MAP) Pulse Ox O2 O2 Flow FiO2 Time Delivery Rate 08/18/18 83 16:34 08/18/18 98.0 18 139/70 100 15:45 (93) 08/17/18 Room Air 17:21 08/17/18 6.0 16:45 Intake and Output 08/17/18 08/17/18 08/18/18 1515:00 23:00 07:00 IntakeIntake Total 1000 ml 1000 ml OutputOutput Total 500 ml BalanceBalance 500 ml 1000 ml Medications Medications Current Medications IV Flush (NS 3 ml) 3 ml PER PROTOCOL IV ; Start 08/13/18 at 20:00 Ondansetron HCl (Zofran Inj) 4 mg Q6H PRN IV NAUSEA AND/OR VOMITING Last administered on 08/15/18at 12:04; Admin Dose 4 MG; Start 08/13/18 at 20:00 Duloxetine HCl (Cymbalta) 60 mg DAILY PO Last administered on 08/18/18at 08:51; Admin Dose 60 MG; Start 08/14/18 at 09:00 Vancomycin HCl (Vancomycin Oral Syringe) 250 mg Q6 PO Last administered on 08/18/18 12:46; Admin Dose 250 MG; Start 08/14/18 at 14:30; Stop 08/21/18 at 14:29 Metronidazole (Flagyl) 500 mg Q8 PO Last administered on 08/18/18 14:37; Admin Dose 500 MG; Start 08/14/18 at 14:00; Stop 08/21/18 at 13:59 Levothyroxine Sodium (Synthroid) 50 mcg BEFORE BREAKFAST PO Last administered on 08/18/18 06:13; Admin Dose 50 MCG; Start 08/15/18 at 07:00 Alteplase, Recombinant (Cathflo (Activase)) 2 mg MAY REPEAT X1 PRN CATHETER IF CATHETER REMAINS OCCULUDED Last administered on 08/15/18 07:02; Admin Dose 2 MG; Start 08/15/18 at 06:00 Zolpidem Tartrate (Ambien) 5 mg HS MAY REPEAT X 1 PRN PO INSOMNIA Last administered on 08/17/18 21:48; Admin Dose 5 MG; Start 08/16/18 at 11:30 Cholecalciferol (Vitamin D) 2,000 unit DAILY PO Last administered on 08/18/18 08:51; Admin Dose 2,000 UNIT; Start 08/17/18 at 09:00 Zinc Sulfate (Zinc Sulfate) 220 mg DAILY PO Last administered on 08/18/18 08:51; Admin Dose 220 MG; Start 08/17/18 at 09:00 Diphenhydramine HCl (Benadryl) 25 mg Q6H PRN IV ITCHING Last administered on 08/18/18 12:46; Admin Dose 25 MG; Start 08/16/18 at 14:00 Eye Lubricant (Artificial Tears Oph) 1 drop Q6H PRN BOTH EYES DRY EYES Last administered on 08/18/18 06:24; Admin Dose 1 DROP; Start 08/16/18 at 23:30 Potassium Chloride 40 meq/ Sodium Chloride 1,000 ml @ 125 mls/hr Q8H IV Last administered on 08/18/18 14:37; Admin Dose 125 MLS/HR; Start 08/17/18 at 08:00 Methylnaltrexone [place] (Relistor) 12 mg Q48H SC Last administered on 08/17/18 10:38; Admin Dose 12 MG; Start 08/17/18 at 09:30 Miscellaneous Information 1 ea NOTE XX ; Start 08/17/18 at 10:30 Glucose (Glutose) 15 gm Q15M PRN PO DECREASED GLUCOSE; Start 08/17/18 at 10:30 Glucose (Glutose) 22.5 gm Q15M PRN PO DECREASED GLUCOSE; Start 08/17/18 at 10:30 Dextrose (D50w Syringe) 25 ml Q15M PRN IV DECREASED GLUCOSE; Start 08/17/18 at 10:30 Dextrose (D50w Syringe) 50 ml Q15M PRN IV DECREASED GLUCOSE; Start 08/17/18 at 10:30 Glucagon (Glucagen) 1 mg Q15M PRN IM DECREASED GLUCOSE; Start 08/17/18 at 10:30 Glucose (Glutose) 15 gm Q15M PRN BUCCAL DECREASED GLUCOSE; Start 08/17/18 at 10:30 Hydromorphone HCl (Dilaudid) 2 mg Q3 PRN IV SEVERE PAIN LEVEL 7-10 Last administered on 08/18/18at 16:08; Admin Dose 2 MG; Start 08/17/18 at 14:30 Ciprofloxacin HCl (Ciloxan 0.3% Oph) 1-2 drops in each ey... QID BOTH EYES Last administered on 08/18/18at 16:08; Admin Dose 2 DROP; Start 08/18/18 at 09:00; Stop 08/23/18 at 08:59 Insulin Aspart (Novolog Insulin Pen) NOVOLOG *MILD* ALGORITHM AC MEALS AND BEDTIME SC ; Start 08/18/18 at 11:30 Pantoprazole (Protonix Iv) 40 mg BID@06,18 IV ; Start 08/18/18 at 18:00 Lorazepam (Ativan) 1 mg Q6H PRN IV Anxiety Last administered on 08/18/18at 14:36; Admin Dose 1 MG; Start 08/18/18 at 14:30 VADIM MCGILL Aug 18, 2018 17:17
[2018-08-18] MEDS: PANTOPRAZOLE 40 MG INJ IV SCH (17:33)
[2018-08-18] MEDS ORDERED: INSULIN ASPART [NOVOLOG] 3 ML PEN SC SCH (21:00)
[2018-08-19] VITALS (10 sets, daily range): BP systolic 103–145; BP diastolic 58–77; PULSE 61–80; RESP 16–19
[2018-08-19] MEDS: ARTIFICIAL TEARS 15 ML OPH BOTH EYES PRN
[2018-08-19] MEDS: VANCOMYCIN HCL 250 MG/5ML POSYG PO SCH ×5 (00:01→23:07)
[2018-08-19] MEDS: POTASSIUM CHLORIDE 40 MEQ in SOD CHLORIDE 0.9% 1,000 ML IV SCH ×4 (00:02→20:30)
[2018-08-19] MEDS: HYDROmorphONE 2 MG/ML SYG IV PRN ×10 (01:19→23:07)
[2018-08-19] MEDS: metroNIDAZOLE 500 MG TAB PO SCH ×3 (06:24→21:20)
[2018-08-19] MEDS: PANTOPRAZOLE 40 MG INJ IV SCH ×2 (06:25→17:13)
[2018-08-19] MEDS: LEVOTHYROXINE 50 MCG TAB PO SCH (06:25)
[2018-08-19] MEDS: DIPHENHYDRAMINE 50 MG INJ IV PRN ×4 (06:25→23:07)
[2018-08-19] MEDS: INSULIN ASPART [NOVOLOG] 3 ML PEN SC SCH ×4 (06:41→20:43)
[2018-08-19] MEDS: ZINC SULFATE 220 MG CAP PO SCH (07:45)
[2018-08-19] MEDS: DULOXETINE 30 MG CAP DR PO SCH (07:45)
[2018-08-19] MEDS: CHOLECALCIFEROL 2,000 UNIT CAP PO SCH (07:46)
[2018-08-19] MEDS: CIPROFLOXACIN 0.3% 2.5 ML OPH BOTH EYES SCH ×4 (07:46→20:30)
[2018-08-19] MEDS: METHYLNALTREXONE 12 MG/0.6 ML VIAL SC SCH (07:53)
[2018-08-19] MEDS: LORAZEPAM 2 MG INJ IV PRN ×2 (09:06→20:29)
--- NOTE | 2018-08-19 15:54 | CONS ---
Assessment/Plan Assessment/Plan Hospital Course (Demo Recall) #Anemia -patient presented with a microcytic anemia, highly concerning for iron deficiency. iron studies were placed after blood transfusion making them unreliable -will recheck iron studies and complete anemia panel at this time. will order the following: -check Vitamin b12 / folate -r/o thyroid dysfuction, check TSH -r/o monoclonal gammopathy, check spep -r/o hemolysis, check LDH, retic , haptoglobin -in case of MDS, will check epo level to see if patient would benefit from procrit -check Hb electrophoresis to rule out thalassemia #Colitis -per records patient had cdiff not long ago -f/o bx from sigmoidiscopy -check CEA #Lung nodules -Per IR these are too small to bx -would recommend pulmonary consult for possible BAL given her history of hemoptysis and concern for underlying malignancy -would also consult ID to rule out infectious etiologies #history of lymphoma -per patient she was treated in 2007 -will need to obtain records from [facility] -currently there is nothing obvious to bx to assess for recurrent disease Thank you for the opportunity to participate in this patients care A total of 40 minutes of face to face time was spent speaking with the patient, of which greater than 50% was spent in counseling and coordination of care and the detailed question and answer session. Consultation Date/Type/Reason Admit Date/Time Aug 13, 2018 at 17:22 Date of Consultation: Aug 19, 2018 Type of Consult oncology Reason for Consultation h/o lymphoma Requesting Provider: SHAQUILLE HARRIS Date/Time of Note DATE: 08/19/18 TIME: 15:30 Hx of Present Illness Ms Masters is a 52 yo female initially diagnosed with Lymphoma (unlcear in hodgkins vs non hodgkins) in 2007. Pt states she was treated with chemotherapy but states she quickly recurrent later in 2007. PT states she was given chemotherapy again but never underwent a bone marrow transplant. At the time of being treated for her lymphoma pt was also diagnosed with bilateral upper and lower extremity DVTs and an ivc filter was placed. PT is currently not on anticoagulation. PT now presents with abdominal pain, subjective blood in stool and hemoptysis. On admission pt was found with a Hg 7.3 and MCV of 74. Pt has since been transfused 1 units of PRBCs. Iron studies were significant for low TIBC but these were drawn after blood transfusion. PT has since undergone a sigmoidoscopy which revealed patchy colitis. Bx are currently pending. Cdiff is negative. CT of the C/A/P was done which revealed lucero colitis, as well as Colitis, numerous nodules in both lungs measuring up to 4 mm in the right lower lobe and lingula. We have been consulted given concern for recurrent malignancy. Constitutional: chills, diaphoresis, poor po Eyes: no complaints ENT: no complaints Respiratory: pain, shortness of breath Cardiovascular: chest pain, lightheadedness Gastrointestinal: blood, decreased appetite, diarrhea, nausea Genitourinary: no complaints Musculoskeletal: back pain, bone/joint pain Skin: no complaints Neurologic: no complaints Endocrine: no complaints Lymphatic: no complaints Past Medical History History of thyroid cancer diagnosed in 2007, h/o lymphoma Medical History: cancer, other (Hodgkin's lymphoma) Home Meds Reported Medications Zolpidem Tartrate* (Ambien*) 5 Mg Tablet, 5 MG PO QHS PRN for INSOMNIA, #30 TAB 08/13/18 Cholecalciferol* (Vitamin D3*) 1,000 Unit Tablet, 1000 UNIT PO DAILY, TAB 08/13/18 Cholecalciferol* (Vitamin D3*) 1,000 Unit Tablet, 2000 UNIT PO DAILY, TAB 08/13/18 Potassium Chloride* (Potassium Chloride*) 20 Meq Tablet.er, 20 MEQ PO DAILY, TAB.SA 08/13/18 Duloxetine Hcl* (Cymbalta*) 60 Mg Capsule.dr, 60 MG PO DAILY, CAP 08/13/18 Oxycodone Hcl* (Oxycontin*) 15 Mg Tab.sr.12h, 15 MG PO Q12, TAB 08/13/18 Hydromorphone Hcl* (Dilaudid*) 8 Mg Tablet, 8 MG PO Q6H PRN for PAIN, TAB 08/13/18 Pantoprazole* (Protonix*) 40 Mg Tablet.dr, 40 MG PO AC BREAKFAST, TAB 08/13/18 Levothyroxine Sodium* (Levothyroxine Sodium*) 25 Mcg Tablet, 25 MCG PO BEFORE BREAKFAST, #30 TAB 08/13/18 Medications Current Medications IV Flush (NS 3 ml) 3 ml PER PROTOCOL IV ; Start 08/13/18 at 20:00 Ondansetron HCl (Zofran Inj) 4 mg Q6H PRN IV NAUSEA AND/OR VOMITING Last administered on 08/15/18 12:04; Admin Dose 4 MG; Start 08/13/18 at 20:00 Duloxetine HCl (Cymbalta) 60 mg DAILY PO Last administered on 08/19/18 07:45; Admin Dose 60 MG; Start 08/14/18 at 09:00 Vancomycin HCl (Vancomycin Oral Syringe) 250 mg Q6 PO Last administered on 08/19/18 11:52; Admin Dose 250 MG; Start 08/14/18 at 14:30; Stop 08/21/18 at 14:29 Metronidazole (Flagyl) 500 mg Q8 PO Last administered on 08/19/18 14:19; Admin Dose 500 MG; Start 08/14/18 at 14:00; Stop 08/21/18 at 13:59 Levothyroxine Sodium (Synthroid) 50 mcg BEFORE BREAKFAST PO Last administered on 08/19/18 06:25; Admin Dose 50 MCG; Start 08/15/18 at 07:00 Alteplase, Recombinant (Cathflo (Activase)) 2 mg MAY REPEAT X1 PRN CATHETER IF CATHETER REMAINS OCCULUDED Last administered on 08/15/18 07:02; Admin Dose 2 MG; Start 08/15/18 at 06:00 Zolpidem Tartrate (Ambien) 5 mg HS MAY REPEAT X 1 PRN PO INSOMNIA Last administered on 08/17/18 21:48; Admin Dose 5 MG; Start 08/16/18 at 11:30 Cholecalciferol (Vitamin D) 2,000 unit DAILY PO Last administered on 08/19/18 07:46; Admin Dose 2,000 UNIT; Start 08/17/18 at 09:00 Zinc Sulfate (Zinc Sulfate) 220 mg DAILY PO Last administered on 08/19/18 07:45; Admin Dose 220 MG; Start 08/17/18 at 09:00 Diphenhydramine HCl (Benadryl) 25 mg Q6H PRN IV ITCHING Last administered on 08/19/18 11:52; Admin Dose 25 MG; Start 08/16/18 at 14:00 Eye Lubricant (Artificial Tears Oph) 1 drop Q6H PRN BOTH EYES DRY EYES Last administered on 08/19/18 00:00; Admin Dose 1 DROP; Start 08/16/18 at 23:30 Potassium Chloride 40 meq/ Sodium Chloride 1,000 ml @ 125 mls/hr Q8H IV Last administered on 08/19/18at 11:59; Admin Dose 125 MLS/HR; Start 08/17/18 at 08:00 Methylnaltrexone [place] (Relistor) 12 mg Q48H SC Last administered on 08/19/18at 07:53; Admin Dose 12 MG; Start 08/17/18 at 09:30 Miscellaneous Information 1 ea NOTE XX ; Start 08/17/18 at 10:30 Glucose (Glutose) 15 gm Q15M PRN PO DECREASED GLUCOSE; Start 08/17/18 at 10:30 Glucose (Glutose) 22.5 gm Q15M PRN PO DECREASED GLUCOSE; Start 08/17/18 at 10:30 Dextrose (D50w Syringe) 25 ml Q15M PRN IV DECREASED GLUCOSE; Start 08/17/18 at 10:30 Dextrose (D50w Syringe) 50 ml Q15M PRN IV DECREASED GLUCOSE; Start 08/17/18 at 10:30 Glucagon (Glucagen) 1 mg Q15M PRN IM DECREASED GLUCOSE; Start 08/17/18 at 10:30 Glucose (Glutose) 15 gm Q15M PRN BUCCAL DECREASED GLUCOSE; Start 08/17/18 at 10:30 Hydromorphone HCl (Dilaudid) 2 mg Q3 PRN IV SEVERE PAIN LEVEL 7-10 Last administered on 08/19/18at 14:14; Admin Dose 2 MG; Start 08/17/18 at 14:30 Ciprofloxacin HCl (Ciloxan 0.3% Oph) 1-2 drops in each ey... QID BOTH EYES Last administered on 08/19/18at 11:55; Admin Dose 2 DROP; Start 08/18/18 at 09:00; Stop 08/23/18 at 08:59 Insulin Aspart (Novolog Insulin Pen) NOVOLOG *MILD* ALGORITHM AC MEALS AND BEDTIME SC ; Start 08/18/18 at 11:30 Pantoprazole (Protonix Iv) 40 mg BID@06,18 IV Last administered on 08/19/18at 06:25; Admin Dose 40 MG; Start 08/18/18 at 18:00 Lorazepam (Ativan) 1 mg Q6H PRN IV Anxiety Last administered on 08/19/18at 0 9:06; Admin Dose 1 MG; Start 08/18/18 at 14:30 Allergies: Coded Allergies: Iodine and Iodide Containing Produc (Verified Allergy, Unknown, 08/13/18) Penicillins (Verified Allergy, Unknown, 08/13/18) ketorolac (Verified Allergy, Unknown, 08/13/18) morphine (Verified Allergy, Unknown, 08/13/18) vancomycin (Verified Allergy, Unknown, 08/13/18) Past Surgical History as above Past Surgical Hx: other (See HPI) Family History Significant Family History: no pertinent family hx Social History Alcohol Use: none Smoking Status: Never smoker Drug Use: none Exam/Review of Systems Exam Vitals Vital Signs Date Temp Pulse Resp B/P (MAP) Pulse Ox O2 O2 Flow FiO2 Time Delivery Rate 08/19/18 62 13:12 08/19/18 98.1 18 135/75 96 11:08 (95) 08/17/18 Room Air 17:21 08/17/18 6.0 16:45 Intake and Output 08/18/18 08/18/18 08/19/18 1515:00 23:00 07:00 IntakeIntake Total 1000 ml 1300 ml BalanceBalance 1000 ml 1300 ml Constitutional: alert, oriented, distress, frail Psych: anxiety, depression Head: normocephalic Eyes: nl conjunctiva ENMT: nl external ears & nose Neck: supple Respiratory: clear to auscultation Gastrointestinal: soft Musculoskeletal: nl extremities to inspection Extremities: normal pulses Skin: nl turgor Results Result Diagram: 08/19/18 0535 08/19/18 0535 Results 24hrs Laboratory Tests Test 08/18/18 17:25 08/18/18 19:47 08/19/18 05:35 08/19/18 06:32 Bedside Glucose 112 116 90 White Blood 3.5 L Count Red Blood Count 3.69 L Hemoglobin 8.6 L Hematocrit 27.4 L Mean Corpuscular 74.3 L Volume Mean Corpuscular 23.3 L Hemoglobin Mean Corpuscular 31.4 L Hemoglobin Anamika nt Red Cell 15.9 H Distribution Width Platelet Count 229 Mean Platelet 10.8 H Volume Immature 0.300 Granulocytes % Neutrophils % 58.1 Lymphocytes % 28.0 Monocytes % 9.2 Eosinophils % 3.5 Basophils % 0.9 Nucleated Red 0.0 Blood Cells % Immature 0.010 Granulocytes # Neutrophils # 2.0 Lymphocytes # 1.0 Monocytes # 0.3 Eosinophils # 0.1 Basophils # 0.0 Nucleated Red 0.0 Blood Cells # Prothrombin Time 13.4 Prothrombin Time 1.0 Ratio INR 1.01 International Normalized Ratio Sodium Level 140 Potassium Level 4.2 Chloride Level 104 Carbon Dioxide 30 Level Anion Gap 6 Blood Urea 6 L Nitrogen Creatinine 0.44 Est Glomerular > 60 Filtrat Rate mL/min Glucose Level 93 Calcium Level 9.0 Phosphorus Level 4.4 Magnesium Level 1.8 Total Bilirubin 0.3 Direct Bilirubin 0.00 Indirect 0.3 Bilirubin Aspartate Amino 53 H Transf (AST/SGOT ) Alanine 42 Aminotransferase (ALT/SGPT) Alkaline 60 Phosphatase Total Protein 5.8 L Albumin 3.3 Globulin 2.50 Albumin/Globulin 1.32 Ratio Test 08/19/18 07:05 08/19/18 07:12 08/19/18 07:48 08/19/18 12:00 Lab Scanned REFERENCE LAB REFERENCE LAB Report Bedside Glucose 87 110 XIOMARA GRACIA M.D. Aug 19, 2018 15:40
--- NOTE | 2018-08-19 16:00 | CONS ---
Assessment/Plan Assessment/Plan Assessment/Plan (Daily) CT chest showing multiple small nodules bilaterally. Indicative of primary lung lymphoma. CT of the chest was done without contrast. Assessment recommendations; 1. Patient admitted for diarrhea with C. difficile colitis been diagnosed. Currently on appropriate treatment regimen. 2. History of prior lymphoma with likely pulmonary recurrence. CT chest showing multiple small nodules bilaterally. 3. Episode of hemoptysis of uncertain etiology and clinical significance at this point. No infiltrative changes seen on CT imaging to suggest alveolar hemorrhage. 4. History of thyroid cancer with history of hypothyroidism. 5. Anemia. Continue current supportive care. Monitor for any further episode of hemoptysis. Patient is reporting that back in April 2018 she did have an episode of hemoptysis similar to what happened today however no further workup was done at that time with spontaneous resolution. Obtain CT chest with contrast if the patient has recurrent hemoptysis. Further recommendations per oncologist. Consultation Date/Type/Reason Admit Date/Time Aug 13, 2018 at 17:22 Date of Consultation: Aug 19, 2018 Type of Consult Pulmonary Pulmonary consult requested for evaluation of episode of hemoptysis. Patient is a very pleasant 52-year-old lady who came into the hospital 6 days ago with complaints of abdominal discomfort and diarrhea. Patient has been diagnosed with C. difficile colitis. Patient feeling much better denies any shortness of breath but according to her she coughed up blood this morning small amount without any prior episodes. Patient has been diagnosed with lymphoma with lung involvement recently. Awaiting resumption of chemotherapy. She does have a history of prior lymphoma back in 2007. Patient denies any weight loss. Any chest pain, fever, cough, sputum production. Denies any wheezing. Denies any abdominal pain. Complains of diarrhea. Denies any blood in stool. Past medical history; 1. Status post treatment for lymphoma in 2007. With apparent recurrence involving the lungs. 2. C. difficile colitis on current admission. 3. History of bilateral lower extremity DVT. Status post Green filter placement in the past. 4. History of thyroid cancer. 5. History of hypothyroidism. Medications; reviewed. Allergies; as outlined above. Social history; patient has been a lifelong non-smoker. Family history; noncontributory. Patient is . No show any malignancy. Occupational history; patient is on disability. Review of systems; denies any headache, seizures, sinus symptoms. Any epistaxis. Denies any chest pain, wheezing, shortness breath, cough. Patient had scant about of hemoptysis early this morning. Denies any fever, chills. Any abdominal pain. Complains of diarrhea. Denies any melena or hematochezia. Any orthopnea. Any weight loss. Any skin changes or any arthritis symptoms. General exam; young female, awake alert, currently no distress. Laying comfortably in bed. Date/Time of Note DATE: 08/19/18 TIME: 15:54 Past Medical History Medical History: cancer, other (Hodgkin's lymphoma) Home Meds Reported Medications Zolpidem Tartrate* (Ambien*) 5 Mg Tablet, 5 MG PO QHS PRN for INSOMNIA, #30 TAB 08/13/18 Cholecalciferol* (Vitamin D3*) 1,000 Unit Tablet, 1000 UNIT PO DAILY, TAB 08/13/18 Cholecalciferol* (Vitamin D3*) 1,000 Unit Tablet, 2000 UNIT PO DAILY, TAB 08/13/18 Potassium Chloride* (Potassium Chloride*) 20 Meq Tablet.er, 20 MEQ PO DAILY, TAB.SA 08/13/18 Duloxetine Hcl* (Cymbalta*) 60 Mg Capsule.dr, 60 MG PO DAILY, CAP 08/13/18 Oxycodone Hcl* (Oxycontin*) 15 Mg Tab.sr.12h, 15 MG PO Q12, TAB 08/13/18 Hydromorphone Hcl* (Dilaudid*) 8 Mg Tablet, 8 MG PO Q6H PRN for PAIN, TAB 08/13/18 Pantoprazole* (Protonix*) 40 Mg Tablet.dr, 40 MG PO AC BREAKFAST, TAB 08/13/18 Levothyroxine Sodium* (Levothyroxine Sodium*) 25 Mcg Tablet, 25 MCG PO BEFORE BREAKFAST, #30 TAB 08/13/18 Medications Current Medications IV Flush (NS 3 ml) 3 ml PER PROTOCOL IV ; Start 08/13/18 at 20:00 Ondansetron HCl (Zofran Inj) 4 mg Q6H PRN IV NAUSEA AND/OR VOMITING Last administered on 08/15/18at 12:04; Admin Dose 4 MG; Start 08/13/18 at 20:00 Duloxetine HCl (Cymbalta) 60 mg DAILY PO Last administered on 08/19/18at 07:45; Admin Dose 60 MG; Start 08/14/18 at 09:00 Vancomycin HCl (Vancomycin Oral Syringe) 250 mg Q6 PO Last administered on 08/19/18 11:52; Admin Dose 250 MG; Start 08/14/18 at 14:30; Stop 08/21/18 at 14:29 Metronidazole (Flagyl) 500 mg Q8 PO Last administered on 08/19/18 14:19; Admin Dose 500 MG; Start 08/14/18 at 14:00; Stop 08/21/18 at 13:59 Levothyroxine Sodium (Synthroid) 50 mcg BEFORE BREAKFAST PO Last administered on 08/19/18 06:25; Admin Dose 50 MCG; Start 08/15/18 at 07:00 Alteplase, Recombinant (Cathflo (Activase)) 2 mg MAY REPEAT X1 PRN CATHETER IF CATHETER REMAINS OCCULUDED Last administered on 08/15/18 07:02; Admin Dose 2 MG; Start 08/15/18 at 06:00 Zolpidem Tartrate (Ambien) 5 mg HS MAY REPEAT X 1 PRN PO INSOMNIA Last administered on 08/17/18 21:48; Admin Dose 5 MG; Start 08/16/18 at 11:30 Cholecalciferol (Vitamin D) 2,000 unit DAILY PO Last administered on 08/19/18 07:46; Admin Dose 2,000 UNIT; Start 08/17/18 at 09:00 Zinc Sulfate (Zinc Sulfate) 220 mg DAILY PO Last administered on 08/19/18 07:45; Admin Dose 220 MG; Start 08/17/18 at 09:00 Diphenhydramine HCl (Benadryl) 25 mg Q6H PRN IV ITCHING Last administered on 08/19/18 11:52; Admin Dose 25 MG; Start 08/16/18 at 14:00 Eye Lubricant (Artificial Tears Oph) 1 drop Q6H PRN BOTH EYES DRY EYES Last administered on 08/19/18 00:00; Admin Dose 1 DROP; Start 08/16/18 at 23:30 Potassium Chloride 40 meq/ Sodium Chloride 1,000 ml @ 125 mls/hr Q8H IV Last administered on 08/19/18 11:59; Admin Dose 125 MLS/HR; Start 08/17/18 at 08:00 Methylnaltrexone [place] (Relistor) 12 mg Q48H SC Last administered on 08/19/18at 07:53; Admin Dose 12 MG; Start 08/17/18 at 09:30 Miscellaneous Information 1 ea NOTE XX ; Start 08/17/18 at 10:30 Glucose (Glutose) 15 gm Q15M PRN PO DECREASED GLUCOSE; Start 08/17/18 at 10:30 Glucose (Glutose) 22.5 gm Q15M PRN PO DECREASED GLUCOSE; Start 08/17/18 at 10:30 Dextrose (D50w Syringe) 25 ml Q15M PRN IV DECREASED GLUCOSE; Start 08/17/18 at 10:30 Dextrose (D50w Syringe) 50 ml Q15M PRN IV DECREASED GLUCOSE; Start 08/17/18 at 10:30 Glucagon (Glucagen) 1 mg Q15M PRN IM DECREASED GLUCOSE; Start 08/17/18 at 10:30 Glucose (Glutose) 15 gm Q15M PRN BUCCAL DECREASED GLUCOSE; Start 08/17/18 at 10:30 Hydromorphone HCl (Dilaudid) 2 mg Q3 PRN IV SEVERE PAIN LEVEL 7-10 Last administered on 08/19/18at 14:14; Admin Dose 2 MG; Start 08/17/18 at 14:30 Ciprofloxacin HCl (Ciloxan 0.3% Oph) 1-2 drops in each ey... QID BOTH EYES Last administered on 08/19/18at 11:55; Admin Dose 2 DROP; Start 08/18/18 at 09:00; Stop 08/23/18 at 08:59 Insulin Aspart (Novolog Insulin Pen) NOVOLOG *MILD* ALGORITHM AC MEALS AND BEDTIME SC ; Start 08/18/18 at 11:30 Pantoprazole (Protonix Iv) 40 mg BID@06,18 IV Last administered on 08/19/18at 06:25; Admin Dose 40 MG; Start 08/18/18 at 18:00 Lorazepam (Ativan) 1 mg Q6H PRN IV Anxiety Last administered on 08/19/18at 09:06; Admin Dose 1 MG; Start 08/18/18 at 14:30 Allergies: Coded Allergies: Iodine and Iodide Containing Produc (Verified Allergy, Unknown, 08/13/18) Penicillins (Verified Allergy, Unknown, 08/13/18) ketorolac (Verified Allergy, Unknown, 08/13/18) morphine (Verified Allergy, Unknown, 08/13/18) vancomycin (Verified Allergy, Unknown, 08/13/18) Past Surgical History Past Surgical Hx: other (See HPI) Social History Alcohol Use: none Smoking Status: Never smoker Drug Use: none Exam/Review of Systems Exam Vitals Vital Signs Date Temp Pulse Resp B/P (MAP) Pulse Ox O2 O2 Flow FiO2 Time Delivery Rate 08/19/18 98.1 62 19 118/58 94 15:37 (78) 08/17/18 Room Air 17:21 08/17/18 6.0 16:45 Intake and Output 08/18/18 08/18/18 08/19/18 1515:00 23:00 07:00 IntakeIntake Total 1000 ml 1300 ml BalanceBalance 1000 ml 1300 ml Additional Comments HEENT exam; supple neck, no JVD. No lymphadenopathy. Midline trachea. No thyromegaly. Pharynx is clear. No neck bruits. Patient is edentulous. No neck masses. Chest exam; clear to auscultation. S1-S2 audible, no murmurs. Regular rhythm. Abdomen exam; soft, nontender. No organomegaly. Bowel sounds audible. Extremity exam; no peripheral edema clubbing. Pulses 2+. SCOOP FILLER exam; no focal deficit. Results Result Diagram: 08/19/18 0535 08/19/18 0535 Results 24hrs Laboratory Tests Test 08/18/18 17:25 08/18/18 19:47 08/19/18 05:35 08/19/18 06:32 Bedside Glucose 112 116 90 White Blood 3.5 L Count Red Blood Count 3.69 L Hemoglobin 8.6 L Hematocrit 27.4 L Mean Corpuscular 74.3 L Volume Mean Corpuscular 23.3 L Hemoglobin Mean Corpuscular 31.4 L Hemoglobin Anamika nt Red Cell 15.9 H Distribution Width Platelet Count 229 Mean Platelet 10.8 H Volume Immature 0.300 Granulocytes % Neutrophils % 58.1 Lymphocytes % 28.0 Monocytes % 9.2 Eosinophils % 3.5 Basophils % 0.9 Nucleated Red 0.0 Blood Cells % Immature 0.010 Granulocytes # Neutrophils # 2.0 Lymphocytes # 1.0 Monocytes # 0.3 Eosinophils # 0.1 Basophils # 0.0 Nucleated Red 0.0 Blood Cells # Prothrombin Time 13.4 Prothrombin Time 1.0 Ratio INR 1.01 International Normalized Ratio Sodium Level 140 Potassium Level 4.2 Chloride Level 104 Carbon Dioxide 30 Level Anion Gap 6 Blood Urea 6 L Nitrogen Creatinine 0.44 Est Glomerular > 60 Filtrat Rate mL/min Glucose Level 93 Calcium Level 9.0 Phosphorus Level 4.4 Magnesium Level 1.8 Total Bilirubin 0.3 Direct Bilirubin 0.00 Indirect 0.3 Bilirubin Aspartate Amino 53 H Transf (AST/SGOT ) Alanine 42 Aminotransferase (ALT/SGPT) Alkaline 60 Phosphatase Total Protein 5.8 L Albumin 3.3 Globulin 2.50 Albumin/Globulin 1.32 Ratio Test 08/19/18 07:05 08/19/18 07:12 08/19/18 07:48 08/19/18 12:00 Lab Scanned REFERENCE LAB REFERENCE LAB Report Bedside Glucose 87 110 ISABELLA EPSTEIN Aug 19, 2018 16:00
--- NOTE | 2018-08-19 16:24 | PN ---
Date/Time of Note Date/Time of Note DATE: 08/19/18 TIME: 16:21 Assessment/Plan VTE Prophylaxis Risk score (from Ns)>0 risk: 3 SCD applied (from Ns): No SCD contraindicated: other (scds) Pharmacological prophylaxis: other (scds) Lines/Catheters IV C[facility]ter Type (from [facility]): PICC Line Central line still needed: Yes (meds) Urinary Cath still in place: No Assessment/Plan Hospital Course Summary Assessment and Plan: Assessment: Colitis, involving the ascending, transverse, descending colon. -Stool positive for Giardia -CDIFF neg, stool cx- prelim- coliform -Fecal leukocytes rare -O&P- neg 08/17/18 sigmoidoscopy Patchy colitis biopsies taken to rule out IBD etiology Transverse colon biopsy:focal mucin depletion and atrophy of colon crypts with increased regenerative activity, suggesting a healing erosion site. There is no evidence of acute colitis, active chronic colitis or malignancy. Rectum biopsy: Normal colon mucosa with focal acute hemorrhage in the superficial lamina propria, histologically non-specific. There is no evidence of colitis or malignancy. Leukocytosis- resolved Abdominal pain Hodgkin's lymphoma of the lung History of thyroid cancer diagnosed in 2007, status post surgery History of PE- s/p IVC filter placement Conjunctivitis OD- on ABX gtt Hemoptysis- being followed by Pulmonary Plan: Bx reviewed- neg for ca, or IBD Stool positive for Giardia- we do not carry Tinidazole or Nitrazoxanide at this hospital - She has been om metronidazole 500 mg TID since the recommended doses for Giardia 500 mg BID x5-7 days. Pt now under work-up for hemoptysis and pancytopenia Continue collaboration with Dr. Ewing/Jakob Subjective: Course reviewed with nursing staff Patient interviewed and examined All labs, imaging and other results reviewed No bloody stool, diarrhea is improving. No c/o abdominal pain or nausea/vomiting Continue current regimen. PHYSICAL EXAMINATION: GENERAL: Alert & oriented x 3, in no acute distress SKIN: No lesions CHEST: Inspection within normal limits. CARDIOVASCULAR: Heart: Regular rate and rhythm RESPIRATORY: Lungs clear to auscultation and percussion, no wheezing, no rubs GASTROINTESTINAL AND LIVER: Abdomen: Soft, generalized tenderness- improved, non-distended, no hernias, no rebound tenderness, normoactive bowel sounds. Rectal: Deferred. Result Diagram: 08/19/18 0535 08/19/18 0535 Results 24hrs Laboratory Tests Test 08/18/18 17:25 08/18/18 19:47 08/19/18 05:35 08/19/18 06:32 Bedside Glucose 112 116 90 White Blood 3.5 L Count Red Blood Count 3.69 L Hemoglobin 8.6 L Hematocrit 27.4 L Mean Corpuscular 74.3 L Volume Mean Corpuscular 23.3 L Hemoglobin Mean Corpuscular 31.4 L Hemoglobin Anamika nt Red Cell 15.9 H Distribution Width Platelet Count 229 Mean Platelet 10.8 H Volume Immature 0.300 Granulocytes % Neutrophils % 58.1 Lymphocytes % 28.0 Monocytes % 9.2 Eosinophils % 3.5 Basophils % 0.9 Nucleated Red 0.0 Blood Cells % Immature 0.010 Granulocytes # Neutrophils # 2.0 Lymphocytes # 1.0 Monocytes # 0.3 Eosinophils # 0.1 Basophils # 0.0 Nucleated Red 0.0 Blood Cells # Prothrombin Time 13.4 Prothrombin Time 1.0 Ratio INR 1.01 International Normalized Ratio Sodium Level 140 Potassium Level 4.2 Chloride Level 104 Carbon Dioxide 30 Level Anion Gap 6 Blood Urea 6 L Nitrogen Creatinine 0.44 Est Glomerular > 60 Filtrat Rate mL/min Glucose Level 93 Calcium Level 9.0 Phosphorus Level 4.4 Magnesium Level 1.8 Total Bilirubin 0.3 Direct Bilirubin 0.00 Indirect 0.3 Bilirubin Aspartate Amino 53 H Transf (AST/SGOT ) Alanine 42 Aminotransferase (ALT/SGPT) Alkaline 60 Phosphatase Total Protein 5.8 L Albumin 3.3 Globulin 2.50 Albumin/Globulin 1.32 Ratio Test 08/19/18 07:05 08/19/18 07:12 08/19/18 07:48 08/19/18 12:00 Lab Scanned REFERENCE LAB REFERENCE LAB Report Bedside Glucose 87 110 Exam/Review of Systems Exam Vitals Vital Signs Date Temp Pulse Resp B/P (MAP) Pulse Ox O2 O2 Flow FiO2 Time Delivery Rate 08/19/18 98.1 62 19 118/58 94 15:37 (78) 08/17/18 Room Air 17:21 08/17/18 6.0 16:45 Intake and Output 08/18/18 08/18/18 08/19/18 1515:00 23:00 07:00 IntakeIntake Total 1000 ml 1300 ml BalanceBalance 1000 ml 1300 ml Results Results 24hrs Laboratory Tests Test 08/18/18 17:25 08/18/18 19:47 08/19/18 05:35 08/19/18 06:32 Bedside Glucose 112 116 90 White Blood 3.5 L Count Red Blood Count 3.69 L Hemoglobin 8.6 L Hematocrit 27.4 L Mean Corpuscular 74.3 L Volume Mean Corpuscular 23.3 L Hemoglobin Mean Corpuscular 31.4 L Hemoglobin Anamika nt Red Cell 15.9 H Distribution Width Platelet Count 229 Mean Platelet 10.8 H Volume Immature 0.300 Granulocytes % Neutrophils % 58.1 Lymphocytes % 28.0 Monocytes % 9.2 Eosinophils % 3.5 Basophils % 0.9 Nucleated Red 0.0 Blood Cells % Immature 0.010 Granulocytes # Neutrophils # 2.0 Lymphocytes # 1.0 Monocytes # 0.3 Eosinophils # 0.1 Basophils # 0.0 Nucleated Red 0.0 Blood Cells # Prothrombin Time 13.4 Prothrombin Time 1.0 Ratio INR 1.01 International Normalized Ratio Sodium Level 140 Potassium Level 4.2 Chloride Level 104 Carbon Dioxide 30 Level Anion Gap 6 Blood Urea 6 L Nitrogen Creatinine 0.44 Est Glomerular > 60 Filtrat Rate mL/min Glucose Level 93 Calcium Level 9.0 Phosphorus Level 4.4 Magnesium Level 1.8 Total Bilirubin 0.3 Direct Bilirubin 0.00 Indirect 0.3 Bilirubin Aspartate Amino 53 H Transf (AST/SGOT ) Alanine 42 Aminotransferase (ALT/SGPT) Alkaline 60 Phosphatase Total Protein 5.8 L Albumin 3.3 Globulin 2.50 Albumin/Globulin 1.32 Ratio Test 08/19/18 07:05 08/19/18 07:12 08/19/18 07:48 08/19/18 12:00 Lab Scanned REFERENCE LAB REFERENCE LAB Report Bedside Glucose 87 110 VADIM MCGLIL Aug 19, 2018 16:24
--- NOTE | 2018-08-19 20:00 | RADRPT ---
Vent Rate: 74 bpm RR Interval: 0 msec HI Interval: 192 msec QRS Duration: 72 msec QT Interval: 410 msec QTC Interval: 455 msec P-R-T [place]: 19 - -5 - 16 degrees Normal sinus rhythm Cannot rule out Anterior infarct , age undetermined Abnormal ECG Electronically Signed By: Nando Hubbard [id number]
--- NOTE | 2018-08-19 22:06 | PN ---
Date/Time of Note Date/Time of Note DATE: 08/19/18 TIME: 21:46 Assessment/Plan VTE Prophylaxis Risk score (from Ns)>0 risk: 3 SCD applied (from Ns): Yes Pharmacological prophylaxis: NA/contraindicated Pharm contraindication: bleeding Lines/Catheters [facility] Central line still needed: Yes Urinary Cath still in place: No Assessment/Plan Hospital Course SUBJECTIVE: large amount of hemoptysis OBJECTIVE: Physical Exam General: Adequately build 52 year-old female lying in bed in no apparent distress. HEENT: Normocephalic, atraumatic. Eyes: Anicteric sclerae, conjunctivae clear. ENT: Nasal septum midline, oral mucosa moist. Neck supple, no JVD noticed. Respiratory: Bilaterally clear breath sounds. No use of accessory muscles of respiration. No adventitious breath sounds. Cardiovascular: S1, S2 heard. No murmurs or gallops. Abdomen: Soft and nondistended. Minimal suprapubic tenderness. Bowel sounds positive in all 4 quadrants. Genitourinary: Deferred. Extremities: No cyanosis, no clubbing, no edema. Peripheral pulses palpable. Neurologic: Cranial nerves II through XII grossly intact. The patient is awake, alert, and oriented. Skin: Normal skin turgor. No skin rashes. Labs & Vitals per chart ASSESSMENT & PLAN This is a 52-year-old female with comorbidities including reported Hodgkin's lymphoma of the lung, history of thyroid cancer status post thyroid surgery,chronic pain syndrome, and. The patient came to the emergency room with history of PE status post IVC filter placement abdominal pain and bloody stools. The patient's CT scan of the abdomen and pelvis was showing colitis involving the ascending, transverse, descending colon. The patient also had underlying leukocytosis and bandemia. Therefore, the patient was admitted to inpatient setting for further treatment and evaluation. 1. Acute pancolitis. -Colonoscopy on 08/17/2018 showed patchy colitis. Bx reviewed- neg for ca, or IBD Stool positive for Giardia- complete treatement x 7 days ?C diff 2. Hodgkin's lymphoma of the lung. -patient now with hemoptysis, will need oncology and pulmonary f/u -multiple pulmonary nodules increased in number from 2018 concerning for inflammation, infection or neoplasm and 0.3cm cavitary lesion noted on chest CT -?biopsy vs bronch with BAL 3. History of PE. -Status post IVC filter placement. 4. Hypothyroidism: continue synthroid 5. Chronic depression: continue home meds 6. Chronic pain syndrome. -Pain management as per pain team. dispo: -soft diet, f/u senior recruitment consultant recommendations, avoid anticoagulation, continue supportive care Result Diagram: 08/19/18 0535 08/19/18 0535 Results 24hrs Laboratory Tests Test 08/19/18 05:35 08/19/18 06:32 08/19/18 07:05 08/19/18 07:12 White Blood 3.5 L Count Red Blood Count 3.69 L Hemoglobin 8.6 L Hematocrit 27.4 L Mean Corpuscular 74.3 L Volume Mean Corpuscular 23.3 L Hemoglobin Mean Corpuscular 31.4 L Hemoglobin Anamika nt Red Cell 15.9 H Distribution Width Platelet Count 229 Mean Platelet 10.8 H Volume Immature 0.300 Granulocytes % Neutrophils % 58.1 Lymphocytes % 28.0 Monocytes % 9.2 Eosinophils % 3.5 Basophils % 0.9 Nucleated Red 0.0 Blood Cells % Immature 0.010 Granulocytes # Neutrophils # 2.0 Lymphocytes # 1.0 Monocytes # 0.3 Eosinophils # 0.1 Basophils # 0.0 Nucleated Red 0.0 Blood Cells # Prothrombin Time 13.4 Prothrombin Time 1.0 Ratio INR 1.01 International Normalized Ratio Sodium Level 140 Potassium Level 4.2 Chloride Level 104 Carbon Dioxide 30 Level Anion Gap 6 Blood Urea 6 L Nitrogen Creatinine 0.44 Est Glomerular > 60 Filtrat Rate mL/min Glucose Level 93 Calcium Level 9.0 Phosphorus Level 4.4 Magnesium Level 1.8 Total Bilirubin 0.3 Direct Bilirubin 0.00 Indirect 0.3 Bilirubin Aspartate Amino 53 H Transf (AST/SGOT ) Alanine 42 Aminotransferase (ALT/SGPT) Alkaline 60 Phosphatase Total Protein 5.8 L Albumin 3.3 Globulin 2.50 Albumin/Globulin 1.32 Ratio Bedside Glucose 90 Lab Scanned REFERENCE LAB REFERENCE LAB Report Test 08/19/18 07:48 08/19/18 12:00 08/19/18 16:28 08/19/18 17:11 Bedside Glucose 87 110 83 Absolute 0.079 Reticulocyte Count Percent 2.0 H Reticulocyte Count Iron Level 147 Total Iron 200 L Binding Capacity Percent Iron 74 H Saturation Ferritin 953.0 H Lactate 421 Dehydrogenase Vitamin B12 > 1000 H Level Folate 13.4 Test 08/19/18 20:42 Bedside Glucose 154 Exam/Review of Systems Exam Vitals Vital Signs Date Temp Pulse Resp B/P (MAP) Pulse Ox O2 O2 Flow FiO2 Time Delivery Rate 08/19/18 80 20:00 08/19/18 98.3 19 103/62 94 20:00 (76) 08/17/18 Room Air 17:21 08/17/18 6.0 16:45 Intake and Output 08/18/18 08/18/18 08/19/18 1515:00 23:00 07:00 IntakeIntake Total 1000 ml 1300 ml BalanceBalance 1000 ml 1300 ml Results Results 24hrs Laboratory Tests Test 08/19/18 05:35 08/19/18 06:32 08/19/18 07:05 08/19/18 07:12 White Blood 3.5 L Count Red Blood Count 3.69 L Hemoglobin 8.6 L Hematocrit 27.4 L Mean Corpuscular 74.3 L Volume Mean Corpuscular 23.3 L Hemoglobin Mean Corpuscular 31.4 L Hemoglobin Anamika nt Red Cell 15.9 H Distribution Width Platelet Count 229 Mean Platelet 10.8 H Volume Immature 0.300 Granulocytes % Neutrophils % 58.1 Lymphocytes % 28.0 Monocytes % 9.2 Eosinophils % 3.5 Basophils % 0.9 Nucleated Red 0.0 Blood Cells % Immature 0.010 Granulocytes # Neutrophils # 2.0 Lymphocytes # 1.0 Monocytes # 0.3 Eosinophils # 0.1 Basophils # 0.0 Nucleated Red 0.0 Blood Cells # Prothrombin Time 13.4 Prothrombin Time 1.0 Ratio INR 1.01 International Normalized Ratio Sodium Level 140 Potassium Level 4.2 Chloride Level 104 Carbon Dioxide 30 Level Anion Gap 6 Blood Urea 6 L Nitrogen Creatinine 0.44 Est Glomerular > 60 Filtrat Rate mL/min Glucose Level 93 Calcium Level 9.0 Phosphorus Level 4.4 Magnesium Level 1.8 Total Bilirubin 0.3 Direct Bilirubin 0.00 Indirect 0.3 Bilirubin Aspartate Amino 53 H Transf (AST/SGOT ) Alanine 42 Aminotransferase (ALT/SGPT) Alkaline 60 Phosphatase Total Protein 5.8 L Albumin 3.3 Globulin 2.50 Albumin/Globulin 1.32 Ratio Bedside Glucose 90 Lab Scanned REFERENCE LAB REFERENCE LAB Report Test 08/19/18 07:48 08/19/18 12:00 08/19/18 16:28 08/19/18 17:11 Bedside Glucose 87 110 83 Absolute 0.079 Reticulocyte Count Percent 2.0 H Reticulocyte Count Iron Level 147 Total Iron 200 L Binding Capacity Percent Iron 74 H Saturation Ferritin 953.0 H Lactate 421 Dehydrogenase Vitamin B12 > 1000 H Level Folate 13.4 Test 08/19/18 20:42 Bedside Glucose 154 SHAQUILLE HARRIS Aug 19, 2018 21:56
[2018-08-19] MEDS: ZOLPIDEM 5 MG TAB PO PRN ×2 (23:07→23:18)
[2018-08-20] VITALS (11 sets, daily range): BP systolic 119–133; BP diastolic 58–69; PULSE 61–98; RESP 18–21
[2018-08-20] MEDS ORDERED: SOD CHLORIDE 0.9% 100 ML ONE ×2 (00:31→20:40)
[2018-08-20] MEDS ORDERED: IOHEXOL 300MG/ML 150 ML BTL ONE ×2 (00:31→20:40)
[2018-08-20] MEDS: HYDROmorphONE 2 MG/ML SYG IV PRN ×7 (02:28→21:05)
[2018-08-20] MEDS: metroNIDAZOLE 500 MG TAB PO SCH ×3 (05:29→21:04)
[2018-08-20] MEDS: VANCOMYCIN HCL 250 MG/5ML POSYG PO SCH ×2 (05:30→11:38)
[2018-08-20] MEDS: PANTOPRAZOLE 40 MG INJ IV SCH ×2 (05:32→18:02)
[2018-08-20] MEDS: DIPHENHYDRAMINE 50 MG INJ IV PRN ×2 (05:34→11:38)
[2018-08-20] MEDS: LEVOTHYROXINE 50 MCG TAB PO SCH (05:34)
[2018-08-20] MEDS: INSULIN ASPART [NOVOLOG] 3 ML PEN SC SCH ×4 (07:00→21:00)
--- NOTE | 2018-08-20 07:28 | CONS ---
Assessment/Plan Assessment/Plan Assessment/Plan (Daily) #h/o Lymphoma -thus far I do not have any records comfirming this diagnosis nor her past treatment -her uncle is to bring me records of her cancer history for review -thus far there are no lesions that can be biopsied and it does not appear she has active cancer #Anemia -pt has had microcytic anemia requiring transfusions for years -will order a bone marrow bx at this time -anemia panel ordered #Hemoptysis -s/p unremarkable bronchoscopy at [facility] -s/p unremarkable flexible laryngoscopy 02/05/17 at [facility] -CT Chest pulmonary nodules are noted but are too small to biopsy -awaiting pulmonary workup to see if repeat bronch is warranted. -ID workup pending for pulmonary nodules -CT Chest Angio pending #pancolitis. -Colonoscopy on 08/17/2018 showed patchy colitis. bx was negative -Stool positive for Giardia- pt on vancomycin and flagyl Consultation Date/Type/Reason Admit Date/Time Aug 13, 2018 at 17:22 Initial Consult Date 08/19/18 Type of Consult oncology Reason for Consultation h/o lymphoma Requesting Provider: SHAQUILLE HARRIS Date/Time of Note DATE: 08/20/18 TIME: 07:17 24 HR Interval Summary Free Text/Dictation records from out side facilities were reviewed: 04/2018 pt was seen at [facility] for similar reasons of hemoptysis. bronchoscsoy and BAL were done. tests were all unremarkable including negative AFB, and legionella 02/2017 seen at [facility]. Pt noted her history of lymphoma which was "self reported" but no path nor records were ever able to officially document the disease. Per those records she reported having received chemo/XRT to the neck in [facility]. It is unclear if this was for lymphoma or thyroid cancer. She was noted to have microcytic anemia at that time as well. 01/2017 pt underwent flex laryngoscopy which was unremarkable pt states she continues to suffer from hemoptysis and anemia Exam/Review of Systems Exam Vitals Vital Signs Date Temp Pulse Resp B/P (MAP) Pulse Ox O2 O2 Flow FiO2 Time Delivery Rate 08/20/18 97.7 68 19 133/68 97 07:15 (89) 08/17/18 Room Air 17:21 08/17/18 6.0 16:45 Intake and Output 08/19/18 08/19/18 08/20/18 1515:00 23:00 07:00 IntakeIntake Total 1700 ml BalanceBalance 1700 ml Constitutional: alert, oriented, distress, frail Psych: anxiety, depression Head: normocephalic Eyes: nl conjunctiva ENMT: nl external ears & nose Neck: supple Respiratory: clear to auscultation Cardiovascular: regular rate and rhythm Gastrointestinal: soft Musculoskeletal: nl extremities to inspection Results Result Diagram: 08/19/18 0535 08/19/18 0535 Results 24hrs Laboratory Tests Test 08/19/18 07:48 08/19/18 12:00 08/19/18 16:28 08/19/18 17:11 Bedside Glucose 87 110 83 Absolute 0.079 Reticulocyte Count Percent 2.0 H Reticulocyte Count Iron Level 147 Total Iron 200 L Binding Capacity Percent Iron 74 H Saturation Ferritin 953.0 H Lactate 421 Dehydrogenase Vitamin B12 Level > 1000 H Folate 13.4 Test 08/19/18 20:42 08/20/18 05:22 Bedside Glucose 154 Lab Scanned BLOOD TRANSFUSIO Report XIOMARA SANTOS M.D. Aug 20, 2018 07:28
[2018-08-20] MEDS: ZINC SULFATE 220 MG CAP PO SCH (07:42)
[2018-08-20] MEDS: CHOLECALCIFEROL 2,000 UNIT CAP PO SCH (07:42)
[2018-08-20] MEDS: POTASSIUM CHLORIDE 40 MEQ in SOD CHLORIDE 0.9% 1,000 ML IV SCH ×3 (07:42→21:09)
[2018-08-20] MEDS: DULOXETINE 30 MG CAP DR PO SCH (07:42)
[2018-08-20] MEDS: CIPROFLOXACIN 0.3% 2.5 ML OPH BOTH EYES SCH ×4 (07:44→21:16)
--- NOTE | 2018-08-20 09:34 | QN ---
Documentation Comment ID Consult has been received. Dr. Hansen will see this patient later today. Thank you! RICHARD APPLE NP Aug 20, 2018 09:34
--- NOTE | 2018-08-20 11:19 | PSY ---
Date/Time of Note Date/Time of Note DATE: 08/20/18 TIME: 11:15 Psychiatric Subjective Eval Consent Pt consented to telemedicine: No Subjective Evaluation Patient location: inpatient Chief Complaint: ABD PAIN WITH BLOODY STOOLS History of present illness Patient is a 52-year-old female with underlying medical history of thyroid cancer, Hodgkin's lymphoma of the lung presented to ER complaining of abdominal pain, and bloody diarrhea. On a face to face evaluation, patient reports feeling hopeless, worried about her medical contion. She denies suicidal ideation and contracted for safety. 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 (6) Rectal bleeding Status: Acute Allergies: Coded Allergies: Iodinated Contrast- Oral and IV Dye (Verified Allergy, Severe, 08/20/18) Iodine and Iodide Containing Produc (Verified Allergy, Unknown, 08/13/18) Penicillins (Verified Allergy, Unknown, 08/13/18) ketorolac (Verified Allergy, Unknown, 08/13/18) morphine (Verified Allergy, Unknown, 08/13/18) vancomycin (Verified Allergy, Unknown, 08/13/18) Substance Abuse Substance use: other Substance abuse history: No Prior substance abuse treatmen: No Social History Marital status: single DPA/Conservatorship: No Psychiatric Objective Eval Review of Systems: Review of Systems: Not Applicable Physical Examination: Appetite: Decreased Energy: Decreased Interest: Decreased Mental Status Examination: Appearance: Poor Hygiene Eye Contact: Fair Psychomotor Activity: Slow Behavior: Cooperative Speech: Clear, Soft AFFECT: Flat Mood: Depressed Though Process: Linear Orientation: x4 Cognition: Alert Insight: Mild Judgement: Mild Attention Span: Distractible Laboratory Results Laboratory Tests Test 08/18/18 14:55 08/18/18 17:25 08/18/18 19:47 08/19/18 05:35 Hemoglobin 9.1 g/dl 8.6 g/dl Hematocrit 28.9 % 27.4 % Bedside Glucose 112 mg/dL 116 mg/dL White Blood 3.5 10^3/ul Count Red Blood Count 3.69 10^6/ul Mean 74.3 fl Corpuscular Volume Mean 23.3 pg Corpuscular Hemoglobin Mean 31.4 g/dl Corpuscular Hemoglobin Conc ent Red Cell 15.9 % Distribution Width Platelet Count 229 10^3/UL Mean Platelet 10.8 fl Volume Immature 0.300 % Granulocytes % Neutrophils % 58.1 % Lymphocytes % 28.0 % Monocytes % 9.2 % Eosinophils % 3.5 % Basophils % 0.9 % Nucleated Red 0.0 /100WBC Blood Cells % Immature 0.010 10^3/ul Granulocytes # Neutrophils # 2.0 10^3/ul Lymphocytes # 1.0 10^3/ul Monocytes # 0.3 10^3/ul Eosinophils # 0.1 10^3/ul Basophils # 0.0 10^3/ul Nucleated Red 0.0 10^3/ul Blood Cells # Prothrombin 13.4 Sec Time Prothrombin 1.0 Time Ratio INR 1.01 International Normalized Rati o Sodium Level 140 mmol/L Potassium Level 4.2 mmol/L Chloride Level 104 mmol/L Carbon Dioxide 30 mmol/L Level Anion Gap 6 Blood Urea 6 mg/dl Nitrogen Creatinine 0.44 mg/dl Est Glomerular > 60 mL/min Filtrat Rate mL/min Glucose Level 93 mg/dl Calcium Level 9.0 mg/dl Phosphorus 4.4 mg/dl Level Magnesium Level 1.8 mg/dl Total Bilirubin 0.3 mg/dl Direct 0.00 mg/dl Bilirubin Indirect 0.3 mg/dl Bilirubin Aspartate Amino 53 IU/L Transf (AST/SGO T) Alanine 42 IU/L Aminotransferas e (ALT/SGPT) Alkaline 60 IU/L Phosphatase Total Protein 5.8 g/dl Albumin 3.3 g/dl Globulin 2.50 g/dl Albumin/Globuli 1.32 n Ratio Test 08/19/18 06:32 08/19/18 07:05 08/19/18 07:12 08/19/18 07:48 Bedside Glucose 90 mg/dL 87 mg/dL Lab Scanned REFERENCE REFERENCE Report LAB [id number] LAB [id number] Test 08/19/18 12:00 08/19/18 16:28 08/19/18 17:11 08/19/18 20:42 Bedside Glucose 110 mg/dL 83 mg/dL 154 mg/dL Red Blood Count 3.83 Million/u (Send Out) L Hemoglobin 8.9 g/dL (Send Out) Hematocrit 28.3 % (Send Out) Absolute 0.079 X10^6 Reticulocyte Count Percent 2.0 % Reticulocyte Count Hemoglobinopath 73.9 fL y MCV Hemoglobinopath 23.2 pg y MCH Hemoglobinopath 16.5 % y RDW Iron Level 147 ug/dl Total Iron 200 ug/dl Binding Capacity Percent Iron 74 % SAT Saturation Ferritin 953.0 ng/ml Lactate 421 IU/L Dehydrogenase Total Protein 5.6 g/dL (PEP) Vitamin B12 > 1000 pg/ml Level Folate 13.4 ng/ml Test 08/20/18 05:22 08/20/18 07:41 08/20/18 09:52 Lab Scanned BLOOD TRANSFUSI Report ON Bedside Glucose 93 mg/dL Absolute 0.067 X10^6 Reticulocyte Count Percent 1.8 % Reticulocyte Count Lactate 424 IU/L Dehydrogenase Assessment and Plan Assessment/Diagnosis Diagnosis Major Depressive Disorder Severe Recurrent Recommendation/Plan Multiple antipsychotics: No Discharge Disposition: Other Legal Status: Voluntary RENAN GUADALUPE NP Aug 20, 2018 11:19
--- NOTE | 2018-08-20 11:29 | CONS ---
Consult Date/Type/Reason Admit Date/Time Aug 13, 2018 at 17:22 Initial Consult Date 08/19/18 Type of Consult Pulmonary Requesting Provider: SHAQUILLE HARRIS Date/Time of Note DATE: 08/20/18 TIME: 11:27 Subjective She stable this morning. No further hemoptysis Objective Vital Signs Date Temp Pulse Resp B/P (MAP) Pulse Ox O2 O2 Flow FiO2 Time Delivery Rate 08/20/18 98.1 78 19 120/64 96 11:19 (82) 08/17/18 Room Air 17:21 08/17/18 6.0 16:45 Intake and Output 08/19/18 08/19/18 08/20/18 1515:00 23:00 07:00 IntakeIntake Total 1700 ml BalanceBalance 1700 ml Exam GENERAL: VITAL SIGNS: per chart NECK: Supple. No JVD or lymphadenopathy. CARDIAC EXAM: S1, S2. No added sounds or murmurs. CHEST: clear bilaterally, No added sounds, rales or wheezes ABDOMEN: Soft, nontender. No guarding or rebound. EXTREMITIES: No cyanosis, clubbing or edema. NEUROLOGIC: Generalized weakness. No focal deficits. Results/Medications Result Diagram: 08/19/18 0535 08/19/18 0535 Results 24 hrs Laboratory Tests Test 08/19/18 12:00 08/19/18 16:28 08/19/18 17:11 08/19/18 20:42 Bedside Glucose 110 83 154 Red Blood Count 3.83 (Send Out) Hemoglobin (Send 8.9 L Out) Hematocrit (Send 28.3 L Out) Absolute 0.079 Reticulocyte Count Percent 2.0 H Reticulocyte Count Hemoglobinopathy 73.9 L MCV Hemoglobinopathy 23.2 L MCH Hemoglobinopathy 16.5 H RDW Iron Level 147 Total Iron 200 L Binding Capacity Percent Iron 74 H Saturation Erythropoietin Pending Ferritin 953.0 H Lactate 421 Dehydrogenase Total Protein 5.6 L (PEP) Albumin (PEP) Pending [id number] Pending Heucr-8-Quclqyfzf Pending Beta Globulins Pending Gamma Globulins Pending Protein Pending Electrophoresis I nterpret Vitamin B12 Level > 1000 H Folate 13.4 Test 08/20/18 05:22 08/20/18 07:41 08/20/18 09:52 Lab Scanned BLOOD TRANSFUSIO Report N Bedside Glucose 93 Absolute 0.067 Reticulocyte Count Percent 1.8 H Reticulocyte Count Lactate 424 Dehydrogenase Vitamin B12 Level Pending Folate Pending Thyroid 0.811 Stimulating Hormone (TSH) Medications Current Medications IV Flush (NS 3 ml) 3 ml PER PROTOCOL IV ; Start 08/13/18 at 20:00 Ondansetron HCl (Zofran Inj) 4 mg Q6H PRN IV NAUSEA AND/OR VOMITING Last administered on 08/15/18at 12:04; Admin Dose 4 MG; Start 08/13/18 at 20:00 Duloxetine HCl (Cymbalta) 60 mg DAILY PO Last administered on 08/20/18 07:42; Admin Dose 60 MG; Start 08/14/18 at 09:00 Vancomycin HCl (Vancomycin Oral Syringe) 250 mg Q6 PO Last administered on 08/20/18 05:30; Admin Dose 250 MG; Start 08/14/18 at 14:30; Stop 08/21/18 at 14:29 Metronidazole (Flagyl) 500 mg Q8 PO Last administered on 08/20/18 05:29; Admin Dose 500 MG; Start 08/14/18 at 14:00; Stop 08/21/18 at 13:59 Levothyroxine Sodium (Synthroid) 50 mcg BEFORE BREAKFAST PO Last administered on 08/20/18 05:34; Admin Dose 50 MCG; Start 08/15/18 at 07:00 Alteplase, Recombinant (Cathflo (Activase)) 2 mg MAY REPEAT X1 PRN CATHETER IF CATHETER REMAINS OCCULUDED Last administered on 08/15/18 07:02; Admin Dose 2 MG; Start 08/15/18 at 06:00 Zolpidem Tartrate (Ambien) 5 mg HS MAY REPEAT X 1 PRN PO INSOMNIA Last administered on 08/19/18 23:18; Admin Dose 5 MG; Start 08/16/18 at 11:30 Cholecalciferol (Vitamin D) 2,000 unit DAILY PO Last administered on 08/20/18 07:42; Admin Dose 2,000 UNIT; Start 08/17/18 at 09:00 Zinc Sulfate (Zinc Sulfate) 220 mg DAILY PO Last administered on 08/20/18 07:42; Admin Dose 220 MG; Start 08/17/18 at 09:00 Diphenhydramine HCl (Benadryl) 25 mg Q6H PRN IV ITCHING Last administered on 08/20/18 05:34; Admin Dose 25 MG; Start 08/16/18 at 14:00 Eye Lubricant (Artificial Tears Oph) 1 drop Q6H PRN BOTH EYES DRY EYES Last administered on 08/19/18at 00:00; Admin Dose 1 DROP; Start 08/16/18 at 23:30 Potassium Chloride 40 meq/ Sodium Chloride 1,000 ml @ 125 mls/hr Q8H IV Last administered on 08/20/18at 07:42; Admin Dose 125 MLS/HR; Start 08/17/18 at 08:00 Methylnaltrexone [place] (Relistor) 12 mg Q48H SC Last administered on at 07:53; Admin Dose 12 MG; Start 08/17/18 at 09:30 Miscellaneous Information 1 ea NOTE XX ; Start 08/17/18 at 10:30 Glucose (Glutose) 15 gm Q15M PRN PO DECREASED GLUCOSE; Start 08/17/18 at 10:30 Glucose (Glutose) 22.5 gm Q15M PRN PO DECREASED GLUCOSE; Start 08/17/18 at 10:30 Dextrose (D50w Syringe) 25 ml Q15M PRN IV DECREASED GLUCOSE; Start 08/17/18 at 10:30 Dextrose (D50w Syringe) 50 ml Q15M PRN IV DECREASED GLUCOSE; Start 08/17/18 at 10:30 Glucagon (Glucagen) 1 mg Q15M PRN IM DECREASED GLUCOSE; Start 08/17/18 at 10:30 Glucose (Glutose) 15 gm Q15M PRN BUCCAL DECREASED GLUCOSE; Start 08/17/18 at 10:30 Hydromorphone HCl (Dilaudid) 2 mg Q3 PRN IV SEVERE PAIN LEVEL 7-10 Last admini stered on 08/20/18at 08:36; Admin Dose 2 MG; Start 08/17/18 at 14:30 Ciprofloxacin HCl (Ciloxan 0.3% Oph) 1-2 drops in each ey... QID BOTH EYES Last administered on 08/20/18at 07:44; Admin Dose 2 DROP; Start 08/18/18 at 09:00; Stop 08/23/18 at 08:59 Insulin Aspart (Novolog Insulin Pen) NOVOLOG *MILD* ALGORITHM AC MEALS AND BEDTIME SC ; Start 08/18/18 at 11:30 Pantoprazole (Protonix Iv) 40 mg BID@06,18 IV Last administered on 08/20/18at 05:32; Admin Dose 40 MG; Start 08/18/18 at 18:00 Lorazepam (Ativan) 1 mg Q6H PRN IV Anxiety Last administered on 08/19/18at 20:29; Admin Dose 1 MG; Start 08/18/18 at 14:30 Assessment/Plan Hospital Course (Demo Recall) Assessment 1. History of recurrent hemoptysis with BAL was performed in the past apparently nondiagnostic. Multiple subcentimeter nodules in the lung periphery. 2. History of thyroid cancer 3. Apparent history of lymphoma in the past. Plan 1. Obtain all notes 2. We will send coccidiomycosis serology 3. Defer further bronchoscopy until all records have been obtained consider discharge soon with outpatient follow-up and repeat CT scan in several months. MARGE GUZMAN MD, [facility] Aug 20, 2018 11:29
[2018-08-20] MEDS ORDERED: LIDOCAINE 1% (MPF) 5 ML VIAL ONE (12:55)
[2018-08-20] MEDS ORDERED: FENTAnyl 50 MCG/ML VIAL ONE ×3 (12:55→13:39)
[2018-08-20] MEDS ORDERED: SOD CHLORIDE 0.9% 500 ML ONE (12:56)
[2018-08-20] MEDS ORDERED: ALTEPLASE (CATHFLO) 2 MG INJ CATHETER ONE (13:00)
--- NOTE | 2018-08-20 13:55 | CONS ---
Assessment/Plan Assessment/Plan Hospital Course (Demo Recall) I came by to examine the patient.She is not currently in room. She presumably is getting CT guided bx. Will attempt to evaluate again alena. Consultation Date/Type/Reason Admit Date/Time Aug 13, 2018 at 17:22 Date/Time of Note DATE: 08/20/18 TIME: 13:54 Past Medical History Medical History: cancer, other (Hodgkin's lymphoma) Home Meds Reported Medications Zolpidem Tartrate* (Ambien*) 5 Mg Tablet, 5 MG PO QHS PRN for INSOMNIA, #30 TAB 08/13/18 Cholecalciferol* (Vitamin D3*) 1,000 Unit Tablet, 1000 UNIT PO DAILY, TAB 08/13/18 Cholecalciferol* (Vitamin D3*) 1,000 Unit Tablet, 2000 UNIT PO DAILY, TAB 08/13/18 Potassium Chloride* (Potassium Chloride*) 20 Meq Tablet.er, 20 MEQ PO DAILY, TAB.SA 08/13/18 Duloxetine Hcl* (Cymbalta*) 60 Mg Capsule.dr, 60 MG PO DAILY, CAP 08/13/18 Oxycodone Hcl* (Oxycontin*) 15 Mg Tab.sr.12h, 15 MG PO Q12, TAB 08/13/18 Hydromorphone Hcl* (Dilaudid*) 8 Mg Tablet, 8 MG PO Q6H PRN for PAIN, TAB 08/13/18 Pantoprazole* (Protonix*) 40 Mg Tablet.dr, 40 MG PO AC BREAKFAST, TAB 08/13/18 Levothyroxine Sodium* (Levothyroxine Sodium*) 25 Mcg Tablet, 25 MCG PO BEFORE BREAKFAST, #30 TAB 08/13/18 Medications Current Medications IV Flush (NS 3 ml) 3 ml PER PROTOCOL IV ; Start 08/13/18 at 20:00 Ondansetron HCl (Zofran Inj) 4 mg Q6H PRN IV NAUSEA AND/OR VOMITING Last administered on 08/15/18at 12:04; Admin Dose 4 MG; Start 08/13/18 at 20:00 Duloxetine HCl (Cymbalta) 60 mg DAILY PO Last administered on 08/20/18at 07:42; Admin Dose 60 MG; Start 08/14/18 at 09:00 Vancomycin HCl (Vancomycin Oral Syringe) 250 mg Q6 PO Last administered on 08/20/18 11:38; Admin Dose 250 MG; Start 08/14/18 at 14:30; Stop 08/21/18 at 14:29 Metronidazole (Flagyl) 500 mg Q8 PO Last administered on 08/20/18 05:29; Admin Dose 500 MG; Start 08/14/18 at 14:00; Stop 08/21/18 at 13:59 Levothyroxine Sodium (Synthroid) 50 mcg BEFORE BREAKFAST PO Last administered on 08/20/18 05:34; Admin Dose 50 MCG; Start 08/15/18 at 07:00 Alteplase, Recombinant (Cathflo (Activase)) 2 mg MAY REPEAT X1 PRN CATHETER IF CATHETER REMAINS OCCULUDED Last administered on 08/15/18 07:02; Admin Dose 2 MG; Start 08/15/18 at 06:00 Cholecalciferol (Vitamin D) 2,000 unit DAILY PO Last administered on 08/20/18 07:42; Admin Dose 2,000 UNIT; Start 08/17/18 at 09:00 Zinc Sulfate (Zinc Sulfate) 220 mg DAILY PO Last administered on 08/20/18 07:42; Admin Dose 220 MG; Start 08/17/18 at 09:00 Diphenhydramine HCl (Benadryl) 25 mg Q6H PRN IV ITCHING Last administered on 08/20/18 11:38; Admin Dose 25 MG; Start 08/16/18 at 14:00 Eye Lubricant (Artificial Tears Oph) 1 drop Q6H PRN BOTH EYES DRY EYES Last administered on 08/19/18 00:00; Admin Dose 1 DROP; Start 08/16/18 at 23:30 Potassium Chloride 40 meq/ Sodium Chloride 1,000 ml @ 125 mls/hr Q8H IV Last administered on 08/20/18 07:42; Admin Dose 125 MLS/HR; Start 08/17/18 at 08:00 Methylnaltrexone [place] (Relistor) 12 mg Q48H SC Last administered on 08/19/18 07:53; Admin Dose 12 MG; Start 08/17/18 at 09:30 Miscellaneous Information 1 ea NOTE XX ; Start 08/17/18 at 10:30 Glucose (Glutose) 15 gm Q15M PRN PO DECREASED GLUCOSE; Start 08/17/18 at 10:30 Glucose (Glutose) 22.5 gm Q15M PRN PO DECREASED GLUCOSE; Start 08/17/18 at 10:30 Dextrose (D50w Syringe) 25 ml Q15M PRN IV DECREASED GLUCOSE; Start 08/17/18 at 10:30 Dextrose (D50w Syringe) 50 ml Q15M PRN IV DECREASED GLUCOSE; Start 08/17/18 at 10:30 Glucagon (Glucagen) 1 mg Q15M PRN IM DECREASED GLUCOSE; Start 08/17/18 at 10:30 Glucose (Glutose) 15 gm Q15M PRN BUCCAL DECREASED GLUCOSE; Start 08/17/18 at 10:30 Hydromorphone HCl (Dilaudid) 2 mg Q3 PRN IV SEVERE PAIN LEVEL 7-10 Last administered on 08/20/18at 11:39; Admin Dose 2 MG; Start 08/17/18 at 14:30 Ciprofloxacin HCl (Ciloxan 0.3% Oph) 1-2 drops in each ey... QID BOTH EYES Last administered on 08/20/18at 11:38; Admin Dose 2 DROP; Start 08/18/18 at 09:00; Stop 08/23/18 at 08:59 Insulin Aspart (Novolog Insulin Pen) NOVOLOG *MILD* ALGORITHM AC MEALS AND BEDTIME SC ; Start 08/18/18 at 11:30 Pantoprazole (Protonix Iv) 40 mg BID@06,18 IV Last administered on 08/20/18at 05:32; Admin Dose 40 MG; Start 08/18/18 at 18:00 Lorazepam (Ativan) 1 mg Q6H PRN IV Anxiety Last administered on 08/19/18at 20:29; Admin Dose 1 MG; Start 08/18/18 at 14:30 Zolpidem Tartrate (Ambien) 10 mg QHS PRN PO INSOMNIA; Start 08/20/18 at 11:30 Allergies: Coded Allergies: Iodinated Contrast- Oral and IV Dye (Verified Allergy, Severe, 08/20/18) Iodine and Iodide Containing Produc (Verified Allergy, Unknown, 08/13/18) Penicillins (Verified Allergy, Unknown, 08/13/18) ketorolac (Verified Allergy, Unknown, 08/13/18) morphine (Verified Allergy, Unknown, 08/13/18) vancomycin (Verified Allergy, Unknown, 08/13/18) Past Surgical History Past Surgical Hx: other (See HPI) Social History Alcohol Use: none Smoking Status: Never smoker Drug Use: none Exam/Review of Systems Exam Vitals Vital Signs Date Temp Pulse Resp B/P (MAP) Pulse Ox O2 O2 Flow FiO2 Time Delivery Rate 08/20/18 71 12:00 08/20/18 98.1 19 120/64 96 11:19 (82) 08/20/18 Nasal 2.0 08:20 Cannula Intake and Output 08/19/18 08/19/18 08/20/18 1414:59 22:59 06:59 IntakeIntake Total 1700 ml BalanceBalance 1700 ml Results Result Diagram: 08/19/18 0535 08/19/18 0535 Results 24hrs Laboratory Tests Test 08/19/18 16:28 08/19/18 17:11 08/19/18 20:42 08/20/18 05:22 Red Blood Count 3.83 (Send Out) Hemoglobin (Send 8.9 L Out) Hematocrit (Send 28.3 L Out) Absolute 0.079 Reticulocyte Count Percent 2.0 H Reticulocyte Count Hemoglobinopathy 73.9 L MCV Hemoglobinopathy 23.2 L MCH Hemoglobinopathy 16.5 H RDW Iron Level 147 Total Iron 200 L Binding Capacity Percent Iron 74 H Saturation Erythropoietin Pending Ferritin 953.0 H Lactate 421 Dehydrogenase Total Protein 5.6 L (PEP) Albumin (PEP) Pending [id number]-7-[id number] Pending Utqzy-6-[id number] Pending Beta Globulins Pending Gamma Globulins Pending Protein Pending Electrophoresis I nterpret Vitamin B12 Level > 1000 H Folate 13.4 Bedside Glucose 83 154 Lab Scanned BLOOD TRANSFUSIO Report N Test 08/20/18 07:41 08/20/18 09:52 08/20/18 11:37 Bedside Glucose 93 128 Absolute 0.067 Reticulocyte Count Percent 1.8 H Reticulocyte Count Lactate 424 Dehydrogenase Vitamin B12 Level > 1000 H Folate 10.8 Thyroid 0.811 Stimulating Hormone (TSH) AUREA MEDINA MD Aug 20, 2018 13:55
[2018-08-20] MEDS ORDERED: DIPHENHYDRAMINE 50 MG INJ ONE (14:02)
--- NOTE | 2018-08-20 14:02 | HPN ---
Date/Time of Note Date/Time of Note DATE: 08/20/18 TIME: 14:02 Interval H&P Admission Note Pt. seen H&P reviewed: No system changes PAM STEWART MD Aug 20, 2018 14:02
--- NOTE | 2018-08-20 14:54 | CONS ---
Assessment/Plan Assessment/Plan Hospital Course (Demo Recall) - S/p CT guided bone marrow aspiration and biopsy 08/20/2018 - Microcytic anemia requiring PRBC d/t acute blood loss - Delgado-colitis per CT - S/p sigmoidoscopy with biopsy 08/17/2018; path shows no e/o colitis or malignancy from transverse colon and rectum biopsies - S/p bloody diarrhea d/t Giardia; C. diff negative - H/o recent C. diff ~04/2018 at [facility] - previously on Fidaxomicin at [facility] - H/o bacteremia vs fungemia with details unknown - Pt reports she was in a coma for 7 days d/t "infection in the blood" at [facility] - Hemoptysis, recurrent. Pt reports negative PPD last month at [facility] and negative TB workup in February 2018 at [facility] - Numerous tiny lung nodules, increased in number from the chest CT dated May 22, 2018, with largest measuring 0.3 cm in the left apex - H/o BUE and RLE DVT, s/p IVC filter in January 2018 - H/o Hodgkin lymphoma - H/o thyroid CA, s/p resection, chemo and XRT - Bilateral conjunctivitis - improving with Cipro eye drops - Hypothyroidism - HLD - OA - Depression/anxiety - H/o cholecystectomy - H/o x2 - +Family hx of cancer (father of stomach CA, mother of lymphoma, paternal uncle had breast CA and 12 yo daughter has h/o brain tumor s/p surgery and resulting blindness) - Allergy to PCN and vancomycin Recommendations: - DC po vancomycin (08/14/2018-) since stool for C. diff is negative - Complete 7 day course of Flagyl (08/14/2018-08/21/2018) for Giardia - Ordered HIV screen - F/u coccidiomycosis serology and bone marrow bx to r/o MDS - F/u records from [facility] - Ordered records from [facility] (Pt reports was hospitalized for >1 month in 04/2018 with infection in the blood) and [facility] (Pt had negative w/u for TB in 02/2018) Management d/w patient, FERNANDO Banks and with Dr. Hansen Consultation Date/Type/Reason Admit Date/Time Aug 13, 2018 at 17:22 Initial Consult Date 08/19/18 Type of Consult Infectious Disease Requesting Provider: SHAQUILLE HARRIS Date/Time of Note DATE: 08/20/18 TIME: 14:37 24 HR Interval Summary Free Text/Dictation Pt underwent bone marrow biopsy and is c/o low back pain. Also reports mild SOB with pleuritic chest pain radiating to back that increases with deep inspiration or cough. C/o hemoptysis x3 days. States she was hospitalized at [facility] in February 2018 and had negative work-up for TB. She was informed that her hemoptysis is r/t her pulmonary nodules. She was later hospitalized at [facility] for >1 month in April 2018 and was in a coma for 7 days d/t "infection in the blood". Pt thinks she may have had a fungal infection in the blood and previously thought it may be pseudomonas but was not told what the source of her infection. States she receive multiple antibiotics during her 1.5 month stay but did not require abx upon DC to SNF. Bloody diarrhea has resolved and is not having semi-formed stool (4 episodes today). Denies fever. Reports mild chills. No further abdominal pain, n/v, dysuria. Exam/Review of Systems Exam Vitals Vital Signs Date Temp Pulse Resp B/P (MAP) Pulse Ox O2 O2 Flow FiO2 Time Delivery Rate 08/20/18 71 12:00 08/20/18 98.1 19 120/64 96 11:19 (82) 08/20/18 Nasal 2.0 08:20 Cannula Intake and Output 08/19/18 08/19/18 08/20/18 1515:00 23:00 07:00 IntakeIntake Total 1700 ml BalanceBalance 1700 ml Constitutional: alert, oriented, well developed, obese Psych: depression (denies SI) Head: normocephalic, atraumatic Eyes: nl conjunctiva, nl lids, nl sclera ENMT: nl external ears & nose, nl nasal mucosa & septum, other (edentulous; no thrush) Neck: supple, non-tender Respiratory: clear to auscultation, normal air movement Cardiovascular: regular rate and rhythm Gastrointestinal: soft, non-tender Musculoskeletal: nl extremities to inspection Extremities: normal pulses Neurological: nl mental status, nl speech Skin: nl turgor, other (Lumbar area with dressing from BM bx which is c/d/i and TTP); No rash or lesions Results Result Diagram: 08/19/18 0535 08/19/18 0535 Results 24hrs PATHOLOGY 08/17/2018: MICROSCOPIC DIAGNOSIS: A-Transverse colon biopsy: -- Colon mucosa showing focal mucin depletion and atrophy of colon crypts with increased regenerative activity, suggesting a healing erosion site. -- There is no evidence of acute colitis, active chronic colitis or malignancy. B-Rectum biopsy: -- Normal colon mucosa with focal acute hemorrhage in the superficial lamina propria, histologically non-specific. -- There is no evidence of colitis or malignancy. Laboratory Tests Test 08/19/18 16:28 08/19/18 17:11 08/19/18 20:42 08/20/18 05:22 Red Blood Count 3.83 (Send Out) Hemoglobin (Send 8.9 L Out) Hematocrit (Send 28.3 L Out) Absolute 0.079 Reticulocyte Count Percent 2.0 H Reticulocyte Count Hemoglobinopathy 73.9 L MCV Hemoglobinopathy 23.2 L MCH Hemoglobinopathy 16.5 H RDW Iron Level 147 Total Iron 200 L Binding Capacity Percent Iron 74 H Saturation Erythropoietin Pending Ferritin 953.0 H Lactate 421 Dehydrogenase Total Protein 5.6 L (PEP) Albumin (PEP) Pending [id number]-[id number] Pending Urwin-9-[id number] Pending Beta Globulins Pending Gamma Globulins Pending Protein Pending Electrophoresis I nterpret Vitamin B12 Level > 1000 H Folate 13.4 Bedside Glucose 83 154 Lab Scanned BLOOD TRANSFUSIO Report N Test 08/20/18 07:41 08/20/18 09:52 08/20/18 11:37 Bedside Glucose 93 128 Absolute 0.067 Reticulocyte Count Percent 1.8 H Reticulocyte Count Lactate 424 Dehydrogenase Vitamin B12 Level > 1000 H Folate 10.8 Thyroid 0.811 Stimulating Hormone (TSH) Imaging Imaging CXR 08/18/2018: No focal infiltrate. Tiny nodular opacities throughout the lungs are not well seen on the plain film radiograph. CT Chest 08/14/2018: IMPRESSION: 1. Numerous several millimeter pulmonary nodules are increased in number from the chest CT dated May 22, 2018. 2. 0.3 cm left apical cavitary lesion is new from the prior. 3. Transverse colon wall thickening/colitis is again seen. 4. Inflammatory and infectious processes and neoplasm may be considered. Inflammatory or infectious process may be favored. 5. Clinical correlation is suggested. Consider follow-up chest CT in the next few months to assess stability. PET/CT or histologic correlation may be helpful for further evaluation as warranted. CT abd/pelvis 08/13/2018: Colitis, involving the ascending, transverse, descending colon. Status post cholecystectomy. IVC filter in place with extracaval penetration of the filter tines. Numerous nodules in both lungs measuring up to 4 mm in the right lower lobe and lingula. In a patient at high risk for cancer, a 12-month follow-up chest CT could be obtained for further evaluation. Medications Medication Current Medications IV Flush (NS 3 ml) 3 ml PER PROTOCOL IV ; Start 08/13/18 at 20:00 Ondansetron HCl (Zofran Inj) 4 mg Q6H PRN IV NAUSEA AND/OR VOMITING Last administered on 08/15/18at 12:04; Admin Dose 4 MG; Start 08/13/18 at 20:00 Duloxetine HCl (Cymbalta) 60 mg DAILY PO Last administered on 08/20/18 07:42; Admin Dose 60 MG; Start 08/14/18 at 09:00 Vancomycin HCl (Vancomycin Oral Syringe) 250 mg Q6 PO Last administered on 08/20/18 11:38; Admin Dose 250 MG; Start 08/14/18 at 14:30; Stop 08/21/18 at 14:29 Metronidazole (Flagyl) 500 mg Q8 PO Last administered on 08/20/18 05:29; Admin Dose 500 MG; Start 08/14/18 at 14:00; Stop 08/21/18 at 13:59 Levothyroxine Sodium (Synthroid) 50 mcg BEFORE BREAKFAST PO Last administered on 08/20/18 05:34; Admin Dose 50 MCG; Start 08/15/18 at 07:00 Alteplase, Recombinant (Cathflo (Activase)) 2 mg MAY REPEAT X1 PRN CATHETER IF CATHETER REMAINS OCCULUDED Last administered on 08/15/18 07:02; Admin Dose 2 MG; Start 08/15/18 at 06:00 Cholecalciferol (Vitamin D) 2,000 unit DAILY PO Last administered on 08/20/18 07:42; Admin Dose 2,000 UNIT; Start 08/17/18 at 09:00 Zinc Sulfate (Zinc Sulfate) 220 mg DAILY PO Last administered on 08/20/18 07:42; Admin Dose 220 MG; Start 08/17/18 at 09:00 Diphenhydramine HCl (Benadryl) 25 mg Q6H PRN IV ITCHING Last administered on 08/20/18 11:38; Admin Dose 25 MG; Start 08/16/18 at 14:00 Eye Lubricant (Artificial Tears Oph) 1 drop Q6H PRN BOTH EYES DRY EYES Last administered on 08/19/18 00:00; Admin Dose 1 DROP; Start 08/16/18 at 23:30 Potassium Chloride 40 meq/ Sodium Chloride 1,000 ml @ 125 mls/hr Q8H IV Last administered on 08/20/18 07:42; Admin Dose 125 MLS/HR; Start 08/17/18 at 08:00 Methylnaltrexone [place] (Relistor) 12 mg Q48H SC Last administered on 08/19 07:53; Admin Dose 12 MG; Start 08/17/18 at 09:30 Miscellaneous Information 1 ea NOTE XX ; Start 08/17/18 at 10:30 Glucose (Glutose) 15 gm Q15M PRN PO DECREASED GLUCOSE; Start 08/17/18 at 10:30 Glucose (Glutose) 22.5 gm Q15M PRN PO DECREASED GLUCOSE; Start 08/17/18 at 10:30 Dextrose (D50w Syringe) 25 ml Q15M PRN IV DECREASED GLUCOSE; Start 08/17/18 at 10:30 Dextrose (D50w Syringe) 50 ml Q15M PRN IV DECREASED GLUCOSE; Start 08/17/18 at 10:30 Glucagon (Glucagen) 1 mg Q15M PRN IM DECREASED GLUCOSE; Start 08/17/18 at 10:30 Glucose (Glutose) 15 gm Q15M PRN BUCCAL DECREASED GLUCOSE; Start 08/17/18 at 10:30 Hydromorphone HCl (Dilaudid) 2 mg Q3 PRN IV SEVERE PAIN LEVEL 7-10 Last administered on 08/20/18 11:39; Admin Dose 2 MG; Start 08/17/18 at 14:30 Ciprofloxacin HCl (Ciloxan 0.3% Oph) 1-2 drops in each ey... QID BOTH EYES Last administered on 08/20/18 11:38; Admin Dose 2 DROP; Start 08/18/18 at 09:00; Stop 08/23/18 at 08:59 Insulin Aspart (Novolog Insulin Pen) NOVOLOG *MILD* ALGORITHM AC MEALS AND BEDTIME SC ; Start 08/18/18 at 11:30 Pantoprazole (Protonix Iv) 40 mg BID@06,18 IV Last administered on 08/20/18at 05:32; Admin Dose 40 MG; Start 08/18/18 at 18:00 Lorazepam (Ativan) 1 mg Q6H PRN IV Anxiety Last administered on 08/19/18at 20:29; Admin Dose 1 MG; Start 08/18/18 at 14:30 Zolpidem Tartrate (Ambien) 10 mg QHS PRN PO INSOMNIA; Start 08/20/18 at 11:30 RICHARD APPLE NP Aug 20, 2018 14:47
[2018-08-20] MEDS: ZOLPIDEM 5 MG TAB PO PRN (21:05)
[2018-08-21] VITALS (12 sets, daily range): BP systolic 103–144; BP diastolic 56–84; PULSE 61–93; RESP 18–20
[2018-08-21] MEDS: HYDROmorphONE 2 MG/ML SYG IV PRN ×8 (00:03→21:51)
[2018-08-21] MEDS: LORAZEPAM 2 MG INJ IV PRN ×2 (01:42→22:58)
[2018-08-21] MEDS: PANTOPRAZOLE 40 MG INJ IV SCH ×2 (06:14→17:11)
[2018-08-21] MEDS: LEVOTHYROXINE 50 MCG TAB PO SCH (06:15)
[2018-08-21] MEDS: metroNIDAZOLE 500 MG TAB PO SCH (06:15)
[2018-08-21] MEDS: INSULIN ASPART [NOVOLOG] 3 ML PEN SC SCH (08:07)
[2018-08-21] MEDS: CIPROFLOXACIN 0.3% 2.5 ML OPH BOTH EYES SCH ×4 (08:09→21:00)
[2018-08-21] MEDS: DULOXETINE 30 MG CAP DR PO SCH (08:22)
[2018-08-21] MEDS: ZINC SULFATE 220 MG CAP PO SCH (08:22)
[2018-08-21] MEDS: CHOLECALCIFEROL 2,000 UNIT CAP PO SCH (08:22)
[2018-08-21] MEDS: DIPHENHYDRAMINE 50 MG INJ IV PRN ×2 (08:23→21:52)
[2018-08-21] MEDS: POTASSIUM CHLORIDE 40 MEQ in SOD CHLORIDE 0.9% 1,000 ML IV SCH ×2 (09:45→18:38)
[2018-08-21] MEDS: METHYLNALTREXONE 12 MG/0.6 ML VIAL SC SCH (09:45)
--- NOTE | 2018-08-21 09:58 | PN ---
Date/Time of Note Date/Time of Note DATE: 08/21/18 TIME: 09:47 Assessment/Plan VTE Prophylaxis Risk score (from [facility] [place])>0 risk: 9 SCD applied (from [facility] [place]): Yes Pharmacological prophylaxis: NA/contraindicated Pharm contraindication: bleeding Lines/Catheters IV Catheter Type (from [facility]): PICC Line Central line still needed: Yes Urinary Cath still in place: No Assessment/Plan Assessment/Plan 1. Acute pancolitis. - Colonoscopy on 08/17/2018 showed patchy colitis. - Bx reviewed- neg for ca, or IBD - Stool positive for Giardia, negative for C. difficile- completed treatment x 7 days. ID managing 2. Hodgkin's lymphoma of the lung (per patient). -Oncology on board. Awaiting records -CT with multiple pulmonary nodules increased in number from 2018 concerning for inflammation, infection or neoplasm and 0.3cm cavitary lesion noted on chest CT -Patient had a negative bronchoscopy several months ago at the outside facility. -Patient with hemoptysis. Pulmonary on board, who should decide about the need for repeat bronchoscopy. Infectious workup including cocci is pending -Patient had bone marrow biopsy yesterday 08/20. We will follow-up result 3. History of PE. -Status post IVC filter placement. 4. History of thyroid cancer: Status post surgery and chemo/radiation, on Synthroid since. Continue 5. Chronic depression: continue home meds 6. Bilateral upper and lower extremity DVT: Status post IVC filter. Also questionable history of PE -No anticoagulation given hemoptysis and anemia requiring blood transfusion. See #7 7. Microcytic anemia, secondary to acute blood loss from bloody diarrhea and hemoptysis -FOBT positive -Colonoscopy 08/17 shows colitis -Transfuse PRBCs as needed Result Diagram: 08/19/18 0535 08/19/18 0535 Results 24hrs Laboratory Tests Test 08/20/18 09:52 08/20/18 11:37 08/20/18 17:00 08/20/18 21:15 Absolute 0.067 Reticulocyte Count Percent Reticulocyte 1.8 H Count Lactate 424 Dehydrogenase Vitamin B12 Level > 1000 H Folate 10.8 Thyroid Stimulating 0.811 Hormone (TSH) Bedside Glucose 128 118 107 Test 08/21/18 05:32 08/21/18 08:06 HIV (1&2) Antibody NEGATIVE Bedside Glucose 118 Exam/Review of Systems Exam Vitals Vital Signs Date Temp Pulse Resp B/P (MAP) Pulse Ox O2 O2 Flow FiO2 Time Delivery Rate 08/21/18 67 08:01 08/21/18 98.5 19 118/59 97 07:31 (78) 08/20/18 Nasal 2.0 08:20 Cannula Intake and Output 08/20/18 08/20/18 08/21/18 1414:59 22:59 06:59 IntakeIntake Total 1600 ml 1500 ml 1200 ml BalanceBalance 1600 ml 1500 ml 1200 ml Constitutional: other (Appears somehow uncomfortable) Head: normocephalic, atraumatic Eyes: PERRL Respiratory: normal air movement Cardiovascular: regular rate and rhythm, nl pulses Gastrointestinal: soft Extremities: normal pulses Results Results 24hrs Laboratory Tests Test 08/20/18 09:52 08/20/18 11:37 08/20/18 17:00 08/20/18 21:15 Absolute 0.067 Reticulocyte Count Percent Reticulocyte 1.8 H Count Lactate 424 Dehydrogenase Vitamin B12 Level > 1000 H Folate 10.8 Thyroid Stimulating 0.811 Hormone (TSH) Bedside Glucose 128 118 107 Test 08/21/18 05:32 08/21/18 08:06 HIV (1&2) Antibody NEGATIVE Bedside Glucose 118 Medications Medication Current Medications IV Flush (NS 3 ml) 3 ml PER PROTOCOL IV ; Start 08/13/18 at 20:00 Ondansetron HCl (Zofran Inj) 4 mg Q6H PRN IV NAUSEA AND/OR VOMITING Last administered on 08/15/18at 12:04; Admin Dose 4 MG; Start 08/13/18 at 20:00 Duloxetine HCl (Cymbalta) 60 mg DAILY PO Last administered on 08/21/18at 08:22; Admin Dose 60 MG; Start 08/14/18 at 09:00 Metronidazole (Flagyl) 500 mg Q8 PO Last administered on 08/21/18at 06:15; Admin Dose 500 MG; Start 08/14/18 at 14:00; Stop 08/21/18 at 13:59 Levothyroxine Sodium (Synthroid) 50 mcg BEFORE BREAKFAST PO Last administered on 08/21/18at 06:15; Admin Dose 50 MCG; Start 08/15/18 at 07:00 Alteplase, Recombinant (Cathflo (Activase)) 2 mg MAY REPEAT X1 PRN CATHETER IF CATHETER REMAINS OCCULUDED Last administered on 08/15/18at 07:02; Admin Dose 2 MG; Start 08/15/18 at 06:00 Cholecalciferol (Vitamin D) 2,000 unit DAILY PO Last administered on 08/21/18at 08:22; Admin Dose 2,000 UNIT; Start 08/17/18 at 09:00 Zinc Sulfate (Zinc Sulfate) 220 mg DAILY PO Last administered on 08/21/18at 08 :22; Admin Dose 220 MG; Start 08/17/18 at 09:00 Diphenhydramine HCl (Benadryl) 25 mg Q6H PRN IV ITCHING Last administered on 08/21/18 08:23; Admin Dose 25 MG; Start 08/16/18 at 14:00 Eye Lubricant (Artificial Tears Oph) 1 drop Q6H PRN BOTH EYES DRY EYES Last administered on 08/19/18at 00:00; Admin Dose 1 DROP; Start 08/16/18 at 23:30 Potassium Chloride 40 meq/ Sodium Chloride 1,000 ml @ 125 mls/hr Q8H IV Last administered on 08/21/18at 09:45; Admin Dose 125 MLS/HR; Start 08/17/18 at 08:00 Methylnaltrexone [place] (Relistor) 12 mg Q48H SC Last administered on 08/21/18at 09:45; Admin Dose 12 MG; Start 08/17/18 at 09:30 Miscellaneous Information 1 ea NOTE XX ; Start 08/17/18 at 10:30 Glucose (Glutose) 15 gm Q15M PRN PO DECREASED GLUCOSE; Start 08/17/18 at 10:30 Glucose (Glutose) 22.5 gm Q15M PRN PO DECREASED GLUCOSE; Start 08/17/18 at 10:30 Dextrose (D50w Syringe) 25 ml Q15M PRN IV DECREASED GLUCOSE; Start 08/17/18 at 10:30 Dextrose (D50w Syringe) 50 ml Q15M PRN IV DECREASED GLUCOSE; Start 08/17/18 at 10:30 Glucagon (Glucagen) 1 mg Q15M PRN IM DECREASED GLUCOSE; Start 08/17/18 at 10:30 Glucose (Glutose) 15 gm Q15M PRN BUCCAL DECREASED GLUCOSE; Start 08/17/18 at 10:30 Hydromorphone HCl (Dilaudid) 2 mg Q3 PRN IV SEVERE PAIN LEVEL 7-10 Last administered on 08/21/18 09:45; Admin Dose 2 MG; Start 08/17/18 at 14:30 Ciprofloxacin HCl (Ciloxan 0.3% Oph) 1-2 drops in each ey... QID BOTH EYES Last administered on 08/21/18at 08:09; Admin Dose 2 DROP; Start 08/18/18 at 09:00; St op 08/23/18 at 08:59 Insulin Aspart (Novolog Insulin Pen) NOVOLOG *MILD* ALGORITHM AC MEALS AND BEDT GILMA SC ; Start 08/18/18 at 11:30 Pantoprazole (Protonix Iv) 40 mg BID@06,18 IV Last administered on 08/21/18at 06:14; Admin Dose 40 MG; Start 08/18/18 at 18:00 Lorazepam (Ativan) 1 mg Q6H PRN IV Anxiety Last administered on 08/21/18at 01:42; Admin Dose 1 MG; Start 08/18/18 at 14:30 Zolpidem Tartrate (Ambien) 10 mg QHS PRN PO INSOMNIA Last administered on 08/20/18at 21:05; Admin Dose 10 MG; Start 08/20/18 at 11:30 TOPHER HSU MD Aug 21, 2018 09:58
--- NOTE | 2018-08-21 10:36 | CONS ---
Assessment/Plan Assessment/Plan Assessment/Plan (Daily) Assessment and recommendations; 1. Patient with history of questionable lymphoma admitted for hemoptysis. Hemoptysis consist of fresh blood. Chest x-ray and noncontrast CT imaging of the chest showing multiple Submillimeter nodules. These findings are apparently chronic. 2. History of DVT upper and lower extremity in the past. Status post [place] filter placement. 3. Patient reporting no allergy to IV contrast but does complain of mild itching after that. Is willing to undergo CT imaging of the chest with contrast. Continue current supportive care. Obtain CT imaging of the chest with contrast as per PE protocol. This will also rule out any AV malformation. We will administer Benadryl 12.5 mg 30 minutes prior to procedure. Consultation Date/Type/Reason Admit Date/Time Aug 13, 2018 at 17:22 Initial Consult Date 08/19/18 Type of Consult Pulmonary Pulmonary consult requested for evaluation of episode of hemoptysis. Patient is a very pleasant 52-year-old lady who came into the hospital 6 days ago with complaints of abdominal discomfort and diarrhea. Patient has been diagnosed with C. difficile colitis. Patient feeling much better denies any shortness of breath but according to her she coughed up blood this morning small amount without any prior episodes. Patient has been diagnosed with lymphoma with lung involvement recently. Awaiting resumption of chemotherapy. She does have a history of prior lymphoma back in 2007. Patient denies any weight loss. Any chest pain, fever, cough, sputum production. Denies any wheezing. Denies any abdominal pain. Complains of diarrhea. Denies any blood in stool. Past medical history; 1. Status post treatment for lymphoma in 2007. With apparent recurrence involving the lungs. 2. C. difficile colitis on current admission. 3. History of bilateral lower extremity DVT. Status post [place] filter placement in the past. 4. History of thyroid cancer. 5. History of hypothyroidism. Medications; reviewed. Allergies; as outlined above. Social history; patient has been a lifelong non-smoker. Family history; noncontributory. Patient is . No show any malignancy. Occupational history; patient is on disability. Review of systems; denies any headache, seizures, sinus symptoms. Any epistaxis. Denies any chest pain, wheezing, shortness breath, cough. Patient had scant about of hemoptysis early this morning. Denies any fever, chills. Any abdominal pain. Complains of diarrhea. Denies any melena or hematochezia. Any orthopnea. Any weight loss. Any skin changes or any arthritis symptoms. General exam; young female, awake alert, currently no distress. Laying comfortably in bed. Requesting Provider: SHAQUILLE HARRIS Date/Time of Note DATE: 08/21/18 TIME: 10:34 24 HR Interval Summary Free Text/Dictation Patient's condition is stable overall. Still complains of significant hemoptysis which was examined by me at bedside. It consists of fresh blood. About 5 mL. General exam; middle-aged female, awake alert, currently no distress. Exam/Review of Systems Exam Vitals Vital Signs Date Temp Pulse Resp B/P (MAP) Pulse Ox O2 O2 Flow FiO2 Time Delivery Rate 08/21/18 67 08:01 08/21/18 98.5 19 118/59 97 07:31 (78) 08/20/18 Nasal 2.0 08:20 Cannula Intake and Output 08/20/18 08/20/18 08/21/18 1515:00 23:00 07:00 IntakeIntake Total 600 ml 1500 ml 1200 ml BalanceBalance 600 ml 1500 ml 1200 ml Exam HEENT exam; supple neck, no JVD. No lymphadenopathy. Midline trachea. No thyromegaly. Pharynx is clear. Patient is edentulous. Chest exam; diminished but clear breath sounds. S1-S2 audible, no murmurs. Regular rhythm. Abdomen exam; soft, nontender. No organomegaly. Bowel sounds audible. Extremity exam; no peripheral edema clubbing. DRY PLASTERER HELPER exam; no focal deficit. Results Result Diagram: 08/19/18 0535 08/19/18 0535 Results 24hrs Laboratory Tests Test 08/20/18 11:37 08/20/18 17:00 08/20/18 21:15 08/21/18 05:32 Bedside Glucose 128 118 107 HIV (1&2) Antibody NEGATIVE Test 08/21/18 08:06 Bedside Glucose 118 Medications Medication Current Medications IV Flush (NS 3 ml) 3 ml PER PROTOCOL IV ; Start 08/13/18 at 20:00 Ondansetron HCl (Zofran Inj) 4 mg Q6H PRN IV NAUSEA AND/OR VOMITING Last administered on 08/15/18at 12:04; Admin Dose 4 MG; Start 08/13/18 at 20:00 Duloxetine HCl (Cymbalta) 60 mg DAILY PO Last administered on 08/21/18 08:22; Admin Dose 60 MG; Start 08/14/18 at 09:00 Metronidazole (Flagyl) 500 mg Q8 PO Last administered on 08/21/18 06:15; Admin Dose 500 MG; Start 08/14/18 at 14:00; Stop 08/21/18 at 13:59 Levothyroxine Sodium (Synthroid) 50 mcg BEFORE BREAKFAST PO Last administered on 08/21/18 06:15; Admin Dose 50 MCG; Start 08/15/18 at 07:00 Alteplase, Recombinant (Cathflo (Activase)) 2 mg MAY REPEAT X1 PRN CATHETER IF CATHETER REMAINS OCCULUDED Last administered on 08/15/18 07:02; Admin Dose 2 MG; Start 08/15/18 at 06:00 Cholecalciferol (Vitamin D) 2,000 unit DAILY PO Last administered on 08/21/18 08:22; Admin Dose 2,000 UNIT; Start 08/17/18 at 09:00 Zinc Sulfate (Zinc Sulfate) 220 mg DAILY PO Last administered on 08/21/18 08:22; Admin Dose 220 MG; Start 08/17/18 at 09:00 Diphenhydramine HCl (Benadryl) 25 mg Q6H PRN IV ITCHING Last administered on 08/21/18 08:23; Admin Dose 25 MG; Start 08/16/18 at 14:00 Eye Lubricant (Artificial Tears Oph) 1 drop Q6H PRN BOTH EYES DRY EYES Last administered on 08/19/18 00:00; Admin Dose 1 DROP; Start 08/16/18 at 23:30 Potassium Chloride 40 meq/ Sodium Chloride 1,000 ml @ 125 mls/hr Q8H IV Last administered on 08/21/18 09:45; Admin Dose 125 MLS/HR; Start 08/17/18 at 08:00 Methylnaltrexone [place] (Relistor) 12 mg Q48H SC Last administered on 08/21/18 09:45; Admin Dose 12 MG; Start 08/17/18 at 09:30 Miscellaneous Information 1 ea NOTE XX ; Start 08/17/18 at 10:30 Glucose (Glutose) 15 gm Q15M PRN PO DECREASED GLUCOSE; Start 08/17/18 at 10:30 Glucose (Glutose) 22.5 gm Q15M PRN PO DECREASED GLUCOSE; Start 08/17/18 at 10:30 Dextrose (D50w Syringe) 25 ml Q15M PRN IV DECREASED GLUCOSE; Start 08/17/18 at 10:30 Dextrose (D50w Syringe) 50 ml Q15M PRN IV DECREASED GLUCOSE; Start 08/17/18 at 10:30 Glucagon (Glucagen) 1 mg Q15M PRN IM DECREASED GLUCOSE; Start 08/17/18 at 10:30 Glucose (Glutose) 15 gm Q15M PRN BUCCAL DECREASED GLUCOSE; Start 08/17/18 at 10 :30 Hydromorphone HCl (Dilaudid) 2 mg Q3 PRN IV SEVERE PAIN LEVEL 7-10 Last administered on 08/21/18at 09:45; Admin Dose 2 MG; Start 08/17/18 at 14:30 Ciprofloxacin HCl (Ciloxan 0.3% Oph) 1-2 drops in each ey... QID BOTH EYES Last administered on 08/21/18at 08:09; Admin Dose 2 DROP; Start 08/18/18 at 09:00; Stop 08/23/18 at 08:59 Pantoprazole (Protonix Iv) 40 mg BID@06,18 IV Last administered on 08/21/18at 06:14; Admin Dose 40 MG; Start 08/18/18 at 18:00 Lorazepam (Ativan) 1 mg Q6H PRN IV Anxiety Last administered on 08/21/18at 01:42; Admin Dose 1 MG; Start 08/18/18 at 14:30 Zolpidem Tartrate (Ambien) 10 mg QHS PRN PO INSOMNIA Last administered on 08/20/18at 21:05; Admin Dose 10 MG; Start 08/20/18 at 11:30 ISABELLA EPSTEIN Aug 21, 2018 10:36
--- NOTE | 2018-08-21 11:54 | CONS ---
[facility] HCIS Consult Follow-up Patient Name: Khadijah Masters Unit Number: [id number] Date of : 1965 Patient Status: Admitted Inpatient Attending Doctor: Zoe Garcia Edit: REGINA HUTCHINSON M.D. on 08/22/18 @ 00:56 I d/w EQUIPMENT WASHER Chermarisol and agree with her ____ Assessment/Plan Assessment/Plan Hospital Course (Demo Recall) - S/p CT guided bone marrow aspiration and biopsy 08/20/2018 - Microcytic anemia requiring PRBC d/t acute blood loss - Delgado-colitis per CT - S/p sigmoidoscopy with biopsy 08/17/2018; path shows no e/o colitis or malignancy from transverse colon and rectum biopsies - S/p bloody diarrhea d/t Giardia; C. diff negative - H/o recent C. diff ~04/2018 at [facility] - previously on Fidaxomicin at [facility] - H/o bacteremia vs fungemia with details unknown - Pt reports she was in a coma for 7 days d/t "infection in the blood" at [facility] - Hemoptysis, recurrent. Pt reports negative PPD last month at [facility] and negative TB workup in February 2018 at [facility] - Numerous tiny lung nodules, increased in number from the chest CT dated May 22, 2018, with largest measuring 0.3 cm in the left apex - H/o BUE and RLE DVT, s/p IVC filter in January 2018 - H/o Hodgkin lymphoma - H/o thyroid CA, s/p resection, chemo and XRT - Bilateral conjunctivitis - improving with Cipro eye drops - Hypothyroidism - HLD - OA - Depression/anxiety - H/o cholecystectomy - H/o x2 - +Family hx of cancer (father of stomach CA, mother of lymphoma, paternal uncle had breast CA and 12 yo daughter has h/o brain tumor s/p surgery and resulting blindness) - Allergy to PCN and vancomycin Recommendations: - Complete 7 day course of Flagyl for Giardia (08/14/2018-08/21/2018) today then monitor off abx. - F/u coccidiomycosis and aspergillus serology and bone marrow bx to r/o MDS - Ordered: Sputum fungal culture - F/u records from [facility] - F/u records from [facility] (Pt reports was hospitalized for >1 month in 04/2018 with infection in the blood) and [facility] (Pt had negative w/u for TB in 02/2018) Management d/w patient, and with Dr. Hutchinson. Thank you Consultation Date/Type/Reason Admit Date/Time Aug 13, 2018 at 17:22 Initial Consult Date 08/19/18 Type of Consult ID Requesting Provider: SHAQUILLE HARRIS Date/Time of Note DATE: 08/21/18 TIME: 11:38 24 HR Interval Summary Free Text/Dictation Patient has remained afebrile, no acute issues were reported by nursing. S/p bone marrow aspiration and biopsy yesterday. Per d/w patient, she is still having "very small amount" of hemoptysis and still coughing, becomes slightly "short of breath" after coughing which she says dissipates after she catches her breath. She reports that she did not expect the bone marrow biopsy to be as painful as it was. She states she had the chills last night. Denied fevers, night sweats, abd pain, n/v. States the diarrhea was "very bad" when she first came to hospital but now she is not having diarrhea anymore Denies dysuria, pruritis, or rash. Exam/Review of Systems Exam Vitals Vital Signs Date Temp Pulse Resp B/P (MAP) Pulse Ox O2 O2 Flow FiO2 Time Delivery Rate 08/21/18 98.3 74 19 136/84 97 10:59 (101) 08/20/18 Nasal 2.0 08:20 Cannula Intake and Output 08/20/18 08/20/18 08/21/18 1515:00 23:00 07:00 IntakeIntake Total 600 ml 1500 ml 1200 ml BalanceBalance 600 ml 1500 ml 1200 ml Constitutional: alert, oriented, well developed, obese Psych: no complaints, nl mood/affect, depression Head: normocephalic, atraumatic Eyes: nl conjunctiva, nl lids, nl sclera ENMT: nl external ears & nose, nl nasal mucosa & septum, mucosa pink and moist (no thrush noted) Neck: supple, non-tender Respiratory: clear to auscultation, normal air movement Cardiovascular: regular rate and rhythm, nl pulses Gastrointestinal: soft, non-tender, bowel sounds (normoactive ) Musculoskeletal: nl extremities to inspection Extremities: normal pulses Neurological: nl mental status, nl speech, nl strength Skin: nl turgor, other (Lumbar area with dressing from BM bx which is c/d/i and TTP); No rash or lesions Results Result Diagram: 08/19/1853408/19/18534 Results 24hrs Laboratory Tests Test 08/20/18 17:00 08/20/18 21:15 08/21/18 05:32 08/21/18 08:06 Bedside Glucose 118 107 118 HIV (1&2) Antibody NEGATIVE Test 08/21/18 11:31 Bedside Glucose 99 Imaging Imaging Needle Biopsy CT 08/20/18 IMPRESSION: 1. Successful CT guided bone marrow aspiration and biopsy. Medications Medication Current Medications IV Flush (NS 3 ml) 3 ml PER PROTOCOL IV ; Start 08/13/18 at 20:00 Ondansetron HCl (Zofran Inj) 4 mg Q6H PRN IV NAUSEA AND/OR VOMITING Last administered on 08/15/18at 12:04; Admin Dose 4 MG; Start 08/13/18 at 20:00 Duloxetine HCl (Cymbalta) 60 mg DAILY PO Last administered on 08/21/18at 08:22; Admin Dose 60 MG; Start 08/14/18 at 09:00 Metronidazole (Flagyl) 500 mg Q8 PO Last administered on 08/21/18at 06:15; Admin Dose 500 MG; Start 08/14/18 at 14:00; Stop 08/21/18 at 13:59 Levothyroxine Sodium (Synthroid) 50 mcg BEFORE BREAKFAST PO Last administered on 08/21/18at 06:15; Admin Dose 50 MCG; Start 08/15/18 at 07:00 Alteplase, Recombinant (Cathflo (Activase)) 2 mg MAY REPEAT X1 PRN CATHETER IF CATHETER REMAINS OCCULUDED Last administered on 08/15/18at 07:02; Admin Dose 2 MG; Start 08/15/18 at 06:00 Cholecalciferol (Vitamin D) 2,000 unit DAILY PO Last administered on 08/21/18at 08:22; Admin Dose 2,000 UNIT; Start 08/17/18 at 09:00 Zinc Sulfate (Zinc Sulfate) 220 mg DAILY PO Last administered on 08/21/18 08:22; Admin Dose 220 MG; Start 08/17/18 at 09:00 Diphenhydramine HCl (Benadryl) 25 mg Q6H PRN IV ITCHING Last administered on 08/21/18at 08:23; Admin Dose 25 MG; Start 08/16/18 at 14:00 Eye Lubricant (Artificial Tears Oph) 1 drop Q6H PRN BOTH EYES DRY EYES Last administered on 08/19/18at 00:00; Admin Dose 1 DROP; Start 08/16/18 at 23:30 Potassium Chloride 40 meq/ Sodium Chloride 1,000 ml @ 125 mls/hr Q8H IV Last administered on 08/21/18at 09:45; Admin Dose 125 MLS/HR; Start 08/17/18 at 08:00 Methylnaltrexone [place] (Relistor) 12 mg Q48H SC Last administered on 08/21/18at 09:45; Admin Dose 12 MG; Start 08/17/18 at 09:30 Miscellaneous Information 1 ea NOTE XX ; Start 08/17/18 at 10:30 Glucose (Glutose) 15 gm Q15M PRN PO DECREASED GLUCOSE; Start 08/17/18 at 10:30 Glucose (Glutose) 22.5 gm Q15M PRN PO DECREASED GLUCOSE; Start 08/17/18 at 10:30 Dextrose (D50w Syringe) 25 ml Q15M PRN IV DECREASED GLUCOSE; Start 08/17/18 at 10:30 Dextrose (D50w Syringe) 50 ml Q15M PRN IV DECREASED GLUCOSE; Start 08/17/18 at 10:30 Glucagon (Glucagen) 1 mg Q15M PRN IM DECREASED GLUCOSE; Start 08/17/18 at 10:30 Glucose (Glutose) 15 gm Q15M PRN BUCCAL DECREASED GLUCOSE; Start 08/17/18 at 10:30 Hydromorphone HCl (Dilaudid) 2 mg Q3 PRN IV SEVERE PAIN LEVEL 7-10 Last administered on 08/21/18at 09:45; Admin Dose 2 MG; Start 08/17/18 at 14:30 Ciprofloxacin HCl (Ciloxan 0.3% Oph) 1-2 drops in each ey... QID BOTH EYES Last administered on 08/21/18at 08:09; Admin Dose 2 DROP; Start 08/18/18 at 09:00; Stop 08/23/18 at 08:59 Pantoprazole (Protonix Iv) 40 mg BID@06,18 IV Last administered on 08/21/18at 06:14; Admin Dose 40 MG; Start 08/18/18 at 18:00 Lorazepam (Ativan) 1 mg Q6H PRN IV Anxiety Last administered on 08/21/18at 01:42; Admin Dose 1 MG; Start 08/18/18 at 14:30 Zolpidem Tartrate (Ambien) 10 mg QHS PRN PO INSOMNIA Last administered on 08/20/18at 21:05; Admin Dose 10 MG; Start 08/20/18 at 11:30 Phenol (Cepastat Lozenge) 1 lozenge Q1H PRN MT THROAT PAIN; Start 08/21/18 at 11:00 LAST GARNER NP Aug 21, 2018 11:48
[2018-08-21] MEDS ORDERED: DIPHENHYDRAMINE 50 MG INJ IV SCH (12:30)
[2018-08-21] MEDS ORDERED: IOHEXOL 100 ML ONE (13:23)
[2018-08-21] MEDS ORDERED: SOD CHLORIDE 0.9% 100 ML ONE (13:23)
--- NOTE | 2018-08-21 13:56 | CONS ---
Assessment/Plan Assessment/Plan Assessment/Plan (Daily) #h/o Lymphoma -thus far I do not have any records comfirming this diagnosis nor her past treatment -her uncle is to bring me records of her cancer history for review -thus far there are no lesions that can be biopsied and it does not appear she has active cancer #Anemia -pt has had microcytic anemia requiring transfusions for years -will order a bone marrow bx at this time -anemia panel ordered #Hemoptysis -s/p unremarkable bronchoscopy at [facility] [place] -s/p unremarkable flexible laryngoscopy 02/05/17 at [facility] -CT Chest pulmonary nodules are noted but are too small to biopsy -awaiting pulmonary workup to see if repeat bronch is warranted. -ID workup pending for pulmonary nodules -CT Chest Angio- no new changes. will do Follow-up CT in X 3-4 months to insure stability as recommended #pancolitis. -Colonoscopy on 08/17/2018 showed patchy colitis. bx was negative -Stool positive for Giardia- pt on vancomycin and flagyl Patient seen in collaboration with Dr Brown. Dw Staff Consultation Date/Type/Reason Admit Date/Time Aug 13, 2018 at 17:22 Initial Consult Date 08/19/18 Type of Consult ONCOLOGY Reason for Consultation h/o lymphoma Requesting Provider: SHAQUILLE HARRIS Date/Time of Note DATE: 08/21/18 TIME: 13:55 24 HR Interval Summary Free Text/Dictation Gone for CT chest 1540- Back from CT scan - feels better- pain is controlled --CT Chest Angio- no new changes. will do Follow-up CT in X 3-4 months to insure stability as recommended -no new issues reported last night Detailed Summary Eyes: no complaints ENT: no complaints Respiratory: no complaints Cardiovascular: no complaints Gastrointestinal: no complaints Genitourinary: no complaints Musculoskeletal: no complaints Skin: no complaints Neurologic: no complaints Exam/Review of Systems Exam Vitals Vital Signs Date Temp Pulse Resp B/P (MAP) Pulse Ox O2 O2 Flow FiO2 Time Delivery Rate 08/21/18 93 12:01 08/21/18 98.3 19 136/84 97 10:59 (101) 08/20/18 Nasal 2.0 08:20 Cannula Intake and Output 08/20/18 08/20/18 08/21/18 1515:00 23:00 07:00 IntakeIntake Total 600 ml 1500 ml 1200 ml BalanceBalance 600 ml 1500 ml 1200 ml Constitutional: alert, well developed Psych: nl mood/affect Eyes: EOMI, nl sclera ENMT: nl external ears & nose Respiratory: clear to auscultation (BILATERALLY) Gastrointestinal: soft, non-tender Musculoskeletal: nl extremities to inspection Extremities: normal pulses Neurological: nl mental status, other (ALERT/RESPONSIVE) Skin: nl turgor Lymph: nontender Results Result Diagram: 08/19/1853408/19/18534 Results 24hrs Laboratory Tests Test 08/20/18 17:00 08/20/18 21:15 08/21/18 05:32 08/21/18 08:06 Bedside Glucose 118 107 118 HIV (1&2) Antibody NEGATIVE Test 08/21/18 11:31 Bedside Glucose 99 Medications Medication Current Medications IV Flush (NS 3 ml) 3 ml PER PROTOCOL IV ; Start 08/13/18 at 20:00 Ondansetron HCl (Zofran Inj) 4 mg Q6H PRN IV NAUSEA AND/OR VOMITING Last administered on 08/15/18at 12:04; Admin Dose 4 MG; Start 08/13/18 at 20:00 Duloxetine HCl (Cymbalta) 60 mg DAILY PO Last administered on 08/21/18 08:22; Admin Dose 60 MG; Start 08/14/18 at 09:00 Metronidazole (Flagyl) 500 mg Q8 PO Last administered on 08/21/18 06:15; Admin Dose 500 MG; Start 08/14/18 at 14:00; Stop 08/21/18 at 13:59 Levothyroxine Sodium (Synthroid) 50 mcg BEFORE BREAKFAST PO Last administered on 08/21/18 06:15; Admin Dose 50 MCG; Start 08/15/18 at 07:00 Alteplase, Recombinant (Cathflo (Activase)) 2 mg MAY REPEAT X1 PRN CATHETER IF CATHETER REMAINS OCCULUDED Last administered on 08/15/18 07:02; Admin Dose 2 MG; Start 08/15/18 at 06:00 Cholecalciferol (Vitamin D) 2,000 unit DAILY PO Last administered on 08/21/18 08:22; Admin Dose 2,000 UNIT; Start 08/17/18 at 09:00 Zinc Sulfate (Zinc Sulfate) 220 mg DAILY PO Last administered on 08/21/18 08:22; Admin Dose 220 MG; Start 08/17/18 at 09:00 Diphenhydramine HCl (Benadryl) 25 mg Q6H PRN IV ITCHING Last administered on 08/21/18 08:23; Admin Dose 25 MG; Start 08/16/18 at 14:00 Eye Lubricant (Artificial Tears Oph) 1 drop Q6H PRN BOTH EYES DRY EYES Last administered on 08/19/18at 00:00; Admin Dose 1 DROP; Start 08/16/18 at 23:30 Potassium Chloride 40 meq/ Sodium Chloride 1,000 ml @ 125 mls/hr Q8H IV Last administered on 08/21/18 09:45; Admin Dose 125 MLS/HR; Start 08/17/18 at 08:00 Methylnaltrexone [place] (Relistor) 12 mg Q48H SC Last administered on 08/21/18 09:45; Admin Dose 12 MG; Start 08/17/18 at 09:30 Miscellaneous Information 1 ea NOTE XX ; Start 08/17/18 at 10:30 Glucose (Glutose) 15 gm Q15M PRN PO DECREASED GLUCOSE; Start 08/17/18 at 10:30 Glucose (Glutose) 22.5 gm Q15M PRN PO DECREASED GLUCOSE; Start 08/17/18 at 10:30 Dextrose (D50w Syringe) 25 ml Q15M PRN IV DECREASED GLUCOSE; Start 08/17/18 at 10:30 Dextrose (D50w Syringe) 50 ml Q15M PRN IV DECREASED GLUCOSE; Start 08/17/18 at 10:30 Glucagon (Glucagen) 1 mg Q15M PRN IM DECREASED GLUCOSE; Start 08/17/18 at 10:30 Glucose (Glutose) 15 gm Q15M PRN BUCCAL DECREASED GLUCOSE; Start 08/17/18 at 10:30 Hydromorphone HCl (Dilaudid) 2 mg Q3 PRN IV SEVERE PAIN LEVEL 7-10 Last administered on 08/21/18at 12:31; Admin Dose 2 MG; Start 08/17/18 at 14:30 Ciprofloxacin HCl (Ciloxan 0.3% Oph) 1-2 drops in each ey... QID BOTH EYES Last administered on 08/21/18 12:21; Admin Dose 2 DROP; Start 08/18/18 at 09:00; Stop 08/23/18 at 08:59 Pantoprazole (Protonix Iv) 40 mg BID@06,18 IV Last administered on 08/21/18at 06:14; Admin Dose 40 MG; Start 08/18/18 at 18:00 Lorazepam (Ativan) 1 mg Q6H PRN IV Anxiety Last administered on 08/21/18at 01:42; Admin Dose 1 MG; Start 08/18/18 at 14:30 Zolpidem Tartrate (Ambien) 10 mg QHS PRN PO INSOMNIA Last administered on 08/20/18at 21:05; Admin Dose 10 MG; Start 08/20/18 at 11:30 Phenol (Cepastat Lozenge) 1 lozenge Q1H PRN MT THROAT PAIN; Start 08/21/18 at 11:00 Diphenhydramine HCl (Benadryl) 25 mg ONCE IV Last administered on 08/21/18at 12:21; Admin Dose 25 MG; Start 08/21/18 at 12:30; Stop 08/22/18 at 12:29 SULEMA WRIGHT Aug 21, 2018 13:56
[2018-08-21] MEDS: CEPASTAT LOZENGE MT PRN ×2 (15:31→21:54)
--- NOTE | 2018-08-21 19:49 | PN ---
Date/Time of Note Date/Time of Note DATE: 08/21/18 TIME: 19:39 Assessment/Plan VTE Prophylaxis Risk score (from Ns)>0 risk: 6 [place] [facility] [place] Pharmacological prophylaxis: NA/contraindicated Pharm contraindication: bleeding Lines/Catheters IV C[facility]ter Type (from [facility] PICC Line Central line still needed: Yes Urinary Cath still in place: No Assessment/Plan Assessment/Plan Assessment: Colitis, involving the ascending, transverse, descending colon. -Stool positive for Giardia -CDIFF neg, stool cx- prelim- coliform -Fecal leukocytes rare -O&P- neg 08/17/18 sigmoidoscopy Patchy colitis biopsies taken to rule out IBD etiology Transverse colon biopsy:focal mucin depletion and atrophy of colon crypts with increased regenerative activity, suggesting a healing erosion site. There is no evidence of acute colitis, active chronic colitis or malignancy. Rectum biopsy: Normal colon mucosa with focal acute hemorrhage in the superficial lamina propria, histologically non-specific. There is no evidence of colitis or malignancy. Leukocytosis- resolved Abdominal pain Hodgkin's lymphoma of the lung History of thyroid cancer diagnosed in 2007, status post surgery History of PE- s/p IVC filter placement Conjunctivitis OD- on ABX gtt Hemoptysis- being followed by Pulmonary Plan: Bx neg for ca, or IBD Stool positive for Giardia- on metronidazole 500 mg TID since the recommended doses for Giardia 500 mg BID x5-7 days. Pt now under work-up for hemoptysis and pancytopenia Continue collaboration with Dr. Ewing/Jakob Subjective: Course reviewed with nursing staff Patient interviewed and examined All labs, imaging and other results reviewed Patient is doing well. She denies abdominal pain, diarrhea or nausea. Tolerating diet well. She is complaining of back pain and hemoptysis. Patient had bone marrow bx and may need a lung bx. With no further recommendations GI will sign off and will be available for consultation upon request. PHYSICAL EXAMINATION: GENERAL: Alert & oriented x 3, in no acute distress SKIN: No lesions CHEST: Inspection within normal limits. CARDIOVASCULAR: Heart: Regular rate and rhythm RESPIRATORY: Lungs clear to auscultation and percussion, no wheezing, no rubs GASTROINTESTINAL AND LIVER: Abdomen: Soft, no tenderness, non-distended, no hernias, no rebound tenderness, normoactive bowel sounds. Rectal: Deferred. Result Diagram: 08/19/18 0535 08/19/18 0535 Results 24hrs Laboratory Tests Test 08/20/18 21:15 08/21/18 05:32 08/21/18 08:06 08/21/18 11:31 Bedside Glucose 107 118 99 HIV (1&2) Antibody NEGATIVE CC: ; Exam/Review of Systems Exam Vitals Vital Signs Date Temp Pulse Resp B/P (MAP) Pulse Ox O2 O2 Flow FiO2 Time Delivery Rate 08/21/18 70 16:01 08/21/18 98.2 19 132/62 97 14:58 (85) 08/20/18 Nasal 2.0 08:20 Cannula Intake and Output 08/20/18 08/20/18 08/21/18 1515:00 23:00 07:00 IntakeIntake Total 600 ml 1500 ml 1200 ml BalanceBalance 600 ml 1500 ml 1200 ml Results Results 24hrs Laboratory Tests Test 08/20/18 21:15 08/21/18 05:32 08/21/18 08:06 08/21/18 11:31 Bedside Glucose 107 118 99 HIV (1&2) Antibody NEGATIVE Medications Medication Current Medications IV Flush (NS 3 ml) 3 ml PER PROTOCOL IV ; Start 08/13/18 at 20:00 Ondansetron HCl (Zofran Inj) 4 mg Q6H PRN IV NAUSEA AND/OR VOMITING Last administered on 08/15/18at 12:04; Admin Dose 4 MG; Start 08/13/18 at 20:00 Duloxetine HCl (Cymbalta) 60 mg DAILY PO Last administered on 08/21/18at 08:22; Admin Dose 60 MG; Start 08/14/18 at 09:00 Levothyroxine Sodium (Synthroid) 50 mcg BEFORE BREAKFAST PO Last administered on 08/21/18at 06:15; Admin Dose 50 MCG; Start 08/15/18 at 07:00 Alteplase, Recombinant (Cathflo (Activase)) 2 mg MAY REPEAT X1 PRN CATHETER IF CATHETER REMAINS OCCULUDED Last administered on 08/15/18at 07:02; Admin Dose 2 MG; Start 08/15/18 at 06:00 Cholecalciferol (Vitamin D) 2,000 unit DAILY PO Last administered on 08/21/18at 08:22; Admin Dose 2,000 UNIT; Start 08/17/18 at 09:00 Zinc Sulfate (Zinc Sulfate) 220 mg DAILY PO Last administered on 08/21/18 08:22; Admin Dose 220 MG; Start 08/17/18 at 09:00 Diphenhydramine HCl (Benadryl) 25 mg Q6H PRN IV ITCHING Last administered on 08/21/18 08:23; Admin Dose 25 MG; Start 08/16/18 at 14:00 Eye Lubricant (Artificial Tears Oph) 1 drop Q6H PRN BOTH EYES DRY EYES Last administered on 08/19/18at 00:00; Admin Dose 1 DROP; Start 08/16/18 at 23:30 Potassium Chloride 40 meq/ Sodium Chloride 1,000 ml @ 125 mls/hr Q8H IV Last administered on 08/21/18at 18:38; Admin Dose 125 MLS/HR; Start 08/17/18 at 08:00 Methylnaltrexone [place] (Relistor) 12 mg Q48H SC Last administered on 08/21/18 at 09:45; Admin Dose 12 MG; Start 08/17/18 at 09:30 Miscellaneous Information 1 ea NOTE XX ; Start 08/17/18 at 10:30 Glucose (Glutose) 15 gm Q15M PRN PO DECREASED GLUCOSE; Start 08/17/18 at 10:30 Glucose (Glutose) 22.5 gm Q15M PRN PO DECREASED GLUCOSE; Start 08/17/18 at 10:30 Dextrose (D50w Syringe) 25 ml Q15M PRN IV DECREASED GLUCOSE; Start 08/17/18 at 10:30 Dextrose (D50w Syringe) 50 ml Q15M PRN IV DECREASED GLUCOSE; Start 08/17/18 at 10:30 Glucagon (Glucagen) 1 mg Q15M PRN IM DECREASED GLUCOSE; Start 08/17/18 at 10:30 Glucose (Glutose) 15 gm Q15M PRN BUCCAL DECREASED GLUCOSE; Start 08/17/18 at 10:30 Hydromorphone HCl (Dilaudid) 2 mg Q3 PRN IV SEVERE PAIN LEVEL 7-10 Last administered on 08/21/18at 18:38; Admin Dose 2 MG; Start 08/17/18 at 14:30 Ciprofloxacin HCl (Ciloxan 0.3% Oph) 1-2 drops in each ey... QID BOTH EYES Last administered on 08/21/18at 17:11; Admin Dose 2 DROP; Start 08/18/18 at 09:00; Stop 08/23/18 at 08:59 Pantoprazole (Protonix Iv) 40 mg BID@06,18 IV Last administered on 08/21/18at 17:11; Admin Dose 40 MG; Start 08/18/18 at 18:00 Lorazepam (Ativan) 1 mg Q6H PRN IV Anxiety Last administered on 08/21/18at 01:42; Admin Dose 1 MG; Start 08/18/18 at 14:30 Zolpidem Tartrate (Ambien) 10 mg QHS PRN PO INSOMNIA Last administered on 08/20/18at 21:05; Admin Dose 10 MG; Start 08/20/18 at 11:30 Phenol (Cepastat Lozenge) 1 lozenge Q1H PRN MT THROAT PAIN Last administered on 08/21/18at 15:31; Admin Dose 1 LOZENGE; Start 08/21/18 at 11:00 Diphenhydramine HCl (Benadryl) 25 mg ONCE IV Last administered on 08/21/18at 12:21; Admin Dose 25 MG; Start 08/21/18 at 12:30; Stop 08/22/18 at 12:29 OPHELIA LEMA NP Aug 21, 2018 19:49
[2018-08-22] VITALS (10 sets, daily range): BP systolic 111–125; BP diastolic 53–81; PULSE 60–92; RESP 16–20
[2018-08-22] MEDS: ZOLPIDEM 5 MG TAB PO PRN (00:23)
[2018-08-22] MEDS: POTASSIUM CHLORIDE 40 MEQ in SOD CHLORIDE 0.9% 1,000 ML IV SCH ×2 (02:00→04:23)
[2018-08-22] MEDS: HYDROmorphONE 2 MG/ML SYG IV PRN ×7 (02:03→20:48)
[2018-08-22] MEDS: CEPASTAT LOZENGE MT PRN ×4 (02:14→20:48)
[2018-08-22] MEDS: PANTOPRAZOLE 40 MG INJ IV SCH ×2 (05:22→17:24)
[2018-08-22] MEDS: LEVOTHYROXINE 50 MCG TAB PO SCH (05:23)
[2018-08-22] MEDS: DIPHENHYDRAMINE 50 MG INJ IV PRN ×3 (05:23→17:50)
--- NOTE | 2018-08-22 07:14 | CONS ---
Assessment/Plan Assessment/Plan Assessment/Plan (Daily) #h/o Lymphoma -thus far there are no lesions that can be biopsied and it does not appear she has active cancer #Anemia -pt has had microcytic anemia requiring transfusions for years -will order a bone marrow bx at this time- pending -anemia panel ordered #Hemoptysis -s/p unremarkable bronchoscopy at [facility] -s/p unremarkable flexible laryngoscopy 02/05/17 at [facility] -CT Chest pulmonary nodules are noted but are too small to biopsy -awaiting pulmonary workup to see if repeat bronch is warranted. -ID workup pending for pulmonary nodules -08/21/18-CT Chest Angio- no new changes. will do Follow-up CT in X 3-4 months to insure stability as recommended #pancolitis. -Colonoscopy on 08/17/2018 showed patchy colitis. bx was negative -Stool positive for Giardia- pt on vancomycin and flagyl Patient seen in collaboration with Dr Brown. Dw Staff Consultation Date/Type/Reason Admit Date/Time Aug 13, 2018 at 17:22 Initial Consult Date 08/19/18 Type of Consult ONCOLOGY Reason for Consultation Hx Lymphoma Requesting Provider: SHAQUILLE HARRIS Date/Time of Note DATE: 08/22/18 TIME: 07:13 24 HR Interval Summary Free Text/Dictation - seems comfortable -08/21/18-CT Chest Angio- no new changes. will do Follow-up CT in X 3-4 months to insure stability as recommended - no new events reported last night Constitutional: requiring O2 Detailed Summary Eyes: no complaints ENT: no complaints Respiratory: no complaints, pleuritic pain, shortness of breath Cardiovascular: no complaints Gastrointestinal: no complaints Genitourinary: no complaints Musculoskeletal: other (generelized weakness) Exam/Review of Systems Exam Vitals Vital Signs Date Temp Pulse Resp B/P (MAP) Pulse Ox O2 O2 Flow FiO2 Time Delivery Rate 08/22/18 97.6 75 20 121/81 96 04:09 (94) 08/20/18 Nasal 2.0 08:20 Cannula Intake and Output 08/21/18 08/21/18 08/22/18 1515:00 23:00 07:00 IntakeIntake Total 2000 ml 2150 ml BalanceBalance 2000 ml 2150 ml Constitutional: alert, well developed Psych: nl mood/affect Eyes: EOMI, nl lids, nl sclera ENMT: nl external ears & nose Neck: non-tender Cardiovascular: nl pulses, other (s1s2) Gastrointestinal: soft, non-tender Musculoskeletal: nl extremities to inspection Extremities: normal pulses Neurological: nl speech, other (alert/awake) Skin: nl turgor Results Result Diagram: 08/22/1818 08/22/18 0518 Results 24hrs Laboratory Tests Test 08/21/18 08:06 08/21/18 11:31 08/22/18 05:18 Bedside Glucose 118 99 White Blood Count 3.9 L Red Blood Count 3.62 L Hemoglobin 8.3 L Hematocrit 26.7 L Mean Corpuscular Volume 73.8 L Mean Corpuscular Hemoglobin 22.9 L Mean Corpuscular Hemoglobin Concent 31.1 L Red Cell Distribution Width 15.9 H Platelet Count 229 Mean Platelet Volume 10.5 H Immature Granulocytes % 0.800 H Neutrophils % 47.7 Lymphocytes % 34.6 Monocytes % 11.3 H Eosinophils % 4.6 Basophils % 1.0 Nucleated Red Blood Cells % 0.0 Immature Granulocytes # 0.030 Neutrophils # 1.9 Lymphocytes # 1.4 Monocytes # 0.4 Eosinophils # 0.2 Basophils # 0.0 Nucleated Red Blood Cells # 0.0 Sodium Level 141 Potassium Level 6.1 *H Chloride Level 107 Carbon Dioxide Level 28 Anion Gap 6 Blood Urea Nitrogen 9 Creatinine 0.44 Est Glomerular Filtrat Rate mL/min > 60 Glucose Level 82 Calcium Level 8.5 Total Bilirubin 0.2 Direct Bilirubin 0.00 Indirect Bilirubin 0.2 Aspartate Amino Transf (AST/SGOT) 53 H Alanine Aminotransferase (ALT/SGPT) 50 Alkaline Phosphatase 62 Total Protein 6.0 L Albumin 3.4 Globulin 2.60 Albumin/Globulin Ratio 1.30 Medications Medication Current Medications IV Flush (NS 3 ml) 3 ml PER PROTOCOL IV ; Start 08/13/18 at 20:00 Ondansetron HCl (Zofran Inj) 4 mg Q6H PRN IV NAUSEA AND/OR VOMITING Last administered on 08/15/18at 12:04; Admin Dose 4 MG; Start 08/13/18 at 20:00 Duloxetine HCl (Cymbalta) 60 mg DAILY PO Last administered on 08/21/18at 08:22; Admin Dose 60 MG; Start 08/14/18 at 09:00 Levothyroxine Sodium (Synthroid) 50 mcg BEFORE BREAKFAST PO Last administered on 08/22/18at 05:23; Admin Dose 50 MCG; Start 08/15/18 at 07:00 Alteplase, Recombinant (Cathflo (Activase)) 2 mg MAY REPEAT X1 PRN CATHETER IF CATHETER REMAINS OCCULUDED Last administered on 08/15/18at 07:02; Admin Dose 2 MG; Start 08/15/18 at 06:00 Cholecalciferol (Vitamin D) 2,000 unit DAILY PO Last administered on 08/21/18at 08:22; Admin Dose 2,000 UNIT; Start 08/17/18 at 09:00 Zinc Sulfate (Zinc Sulfate) 220 mg DAILY PO Last administered on 08/21/18at 08:22; Admin Dose 220 MG; Start 08/17/18 at 09:00 Diphenhydramine HCl (Benadryl) 25 mg Q6H PRN IV ITCHING Last administered on 08/22/18at 05:23; Admin Dose 25 MG; Start 08/16/18 at 14:00 Eye Lubricant (Artificial Tears Oph) 1 drop Q6H PRN BOTH EYES DRY EYES Last administered on 08/19/18at 00:00; Admin Dose 1 DROP; Start 08/16/18 at 23:30 Potassium Chloride 40 meq/ Sodium Chloride 1,000 ml @ 125 mls/hr Q8H IV Last administered on 08/22/18at 04:23; Admin Dose 125 MLS/HR; Start 08/17/18 at 08:00 Methylnaltrexone [place] (Relistor) 12 mg Q48H SC Last administered on 08/21/18at 09:45; Admin Dose 12 MG; Start 08/17/18 at 09:30 Miscellaneous Information 1 ea NOTE XX ; Start 08/17/18 at 10:30 Glucose (Glutose) 15 gm Q15M PRN PO DECREASED GLUCOSE; Start 08/17/18 at 10:30 Glucose (Glutose) 22.5 gm Q15M PRN PO DECREASED GLUCOSE; Start 08/17/18 at 10:30 Dextrose (D50w Syringe) 25 ml Q15M PRN IV DECREASED GLUCOSE; Start 08/17/18 at 10:30 Dextrose (D50w Syringe) 50 ml Q15M PRN IV DECREASED GLUCOSE; Start 08/17/18 at 10:30 Glucagon (Glucagen) 1 mg Q15M PRN IM DECREASED GLUCOSE; Start 08/17/18 at 10:30 Glucose (Glutose) 15 gm Q15M PRN BUCCAL DECREASED GLUCOSE; Start 08/17/18 at 10:30 Hydromorphone HCl (Dilaudid) 2 mg Q3 PRN IV SEVERE PAIN LEVEL 7-10 Last administered on 08/22/18at 05:04; Admin Dose 2 MG; Start 08/17/18 at 14:30 Ciprofloxacin HCl (Ciloxan 0.3% Oph) 1-2 drops in each ey... QID BOTH EYES Last administered on 08/21/18at 21:00; Admin Dose 2 DROP; Start 08/18/18 at 09:00; Stop 08/23/18 at 08:59 Pantoprazole (Protonix Iv) 40 mg BID@06,18 IV Last administered on 08/22/18at 05:22; Admin Dose 40 MG; Start 08/18/18 at 18:00 Lorazepam (Ativan) 1 mg Q6H PRN IV Anxiety Last administered on 08/21/18at 22:58; Admin Dose 1 MG; Start 08/18/18 at 14:30 Zolpidem Tartrate (Ambien) 10 mg QHS PRN PO INSOMNIA Last administered on 08/22/18 00:23; Admin Dose 10 MG; Start 08/20/18 at 11:30 Phenol (Cepastat Lozenge) 1 lozenge Q1H PRN MT THROAT PAIN Last administered on 08/22/18at 02:14; Admin Dose 1 LOZENGE; Start 08/21/18 at 11:00 Diphenhydramine HCl (Benadryl) 25 mg ONCE IV Last administered on 08/21/18at 12:21; Admin Dose 25 MG; Start 08/21/18 at 12:30; Stop 08/22/18 at 12:29 SULEMA WRIGHT Aug 22, 2018 7:14 am
[2018-08-22] MEDS ORDERED: ALBUTEROL/IPRATROPIUM (NEB) 3 ML AMP HHN STA (07:34)
[2018-08-22] MEDS ORDERED: DEXTROSE 50% 50 ML SYRINGE IV ONE (08:00)
[2018-08-22] MEDS ORDERED: INSULIN ASPART [NOVOLOG] 3 ML PEN SC ONE (08:00)
--- NOTE | 2018-08-22 08:16 | PN ---
Date/Time of Note Date/Time of Note DATE: 08/22/18 TIME: 08:11 Assessment/Plan VTE Prophylaxis Risk score (from Ns)>0 risk: 9 SCD applied (from [facility] [place]): No SCD contraindicated: other Pharmacological prophylaxis: NA/contraindicated Pharm contraindication: bleeding Lines/Catheters IV C[facility]ter Type (from [facility]): PICC Line Central line still needed: Yes Urinary Cath still in place: No Assessment/Plan Hospital Course SUBJECTIVE: Continues to have some hemoptysis. OBJECTIVE: Physical Exam General: Adequately build 52 year-old female lying in bed in no apparent distress. HEENT: Normocephalic, atraumatic. Eyes: Anicteric sclerae, conjunctivae clear. ENT: Nasal septum midline, oral mucosa moist. Neck supple, no JVD noticed. Respiratory: Bilaterally clear breath sounds. No use of accessory muscles of respiration. No adventitious breath sounds. Cardiovascular: S1, S2 heard. No murmurs or gallops. Abdomen: Soft and nondistended. Minimal suprapubic tenderness. Bowel sounds p ositive in all 4 quadrants. Genitourinary: Deferred. Extremities: No cyanosis, no clubbing, no edema. Peripheral pulses palpable. Neurologic: Cranial nerves II through XII grossly intact. The patient is awake, alert, and oriented. Skin: Normal skin turgor. No skin rashes. Labs & Vitals per chart ASSESSMENT & PLAN This is a 52-year-old female with comorbidities including Hodgkin's lymphoma of the lung, history of thyroid cancer status post thyroid surgery,chronic pain syndrome, and. The patient came to the emergency room with history of PE status post IVC filter placement abdominal pain and bloody stools. The patient's CT scan of the abdomen and pelvis was showing colitis involving the ascending, transverse, descending colon. The patient also had underlying leukocytosis and bandemia. Therefore, the patient was admitted to inpatient setting for further treatment and evaluation. 1. Acute pancolitis. -Stool studies showing Giardia. S/P Flagyl (last day 08/21/2018) -Being followed by gastroenterology and ID. -Colonoscopy on 08/17/2018 showed patchy colitis. 2. Hodgkin's lymphoma of the lung. -Being followed by Oncology. -Awaiting medical records to be brought by the family confirming this diagnosis and treatment for the same. 3. History of PE. -Status post IVC filter placement. 4. Anemia. -Microcytic and hypochromic. -Probably anemia of acute blood loss. -Monitor H&H closely. -Stool for OB x1+. -S/P bone marrow biopsy on 08/20/2018 for further evaluation. 5. Chronic pain syndrome. -Pain management as per pain team. 6. Hyperglycemia. -Etiology unclear. -Hemoglobin A1c within normal limits although this could be the glycosylated hemoglobin from the transfused (donor) blood. -The patient was told by her primary care provider previously that she is borderline diabetic. -Started the patient on sliding scale insulin on 08/17/2018. -Stopped the patients insulin SSI on 08/21/2018 once the hyperglycemia was resolved. 7. Hemoptysis on 08/18/2018. -Being followed by Pulmonology. -Plan for bronchoscopy on 08/23/2018. 8. Hyperkalemia. -Stop potassium containing fluids. -Treat hyperkalemia. 9. Fluids, electrolytes, and nutrition. -Soft diet. 10. DVT prophylaxis -Bilateral SCDs. 11. Plan. -Continue pain control. -Await bone marrow biopsy results. -Await bronchoscopy. -Treat hyperkalemia. The patient was seen in collaboration with Dr. Montes. Result Diagram: 08/22/18 0518 08/22/18 0518 Results 24hrs Laboratory Tests Test 08/21/18 11:31 08/22/18 05:18 08/22/18 07:25 Bedside Glucose 99 88 White Blood Count 3.9 L Red Blood Count 3.62 L Hemoglobin 8.3 L Hematocrit 26.7 L Mean Corpuscular Volume 73.8 L Mean Corpuscular Hemoglobin 22.9 L Mean Corpuscular Hemoglobin Concent 31.1 L Red Cell Distribution Width 15.9 H Platelet Count 229 Mean Platelet Volume 10.5 H Immature Granulocytes % 0.800 H Neutrophils % 47.7 Lymphocytes % 34.6 Monocytes % 11.3 H Eosinophils % 4.6 Basophils % 1.0 Nucleated Red Blood Cells % 0.0 Immature Granulocytes # 0.030 Neutrophils # 1.9 Lymphocytes # 1.4 Monocytes # 0.4 Eosinophils # 0.2 Basophils # 0.0 Nucleated Red Blood Cells # 0.0 Sodium Level 141 Potassium Level 6.1 *H Chloride Level 107 Carbon Dioxide Level 28 Anion Gap 6 Blood Urea Nitrogen 9 Creatinine 0.44 Est Glomerular Filtrat Rate mL/min > 60 Glucose Level 82 Calcium Level 8.5 Total Bilirubin 0.2 Direct Bilirubin 0.00 Indirect Bilirubin 0.2 Aspartate Amino Transf (AST/SGOT) 53 H Alanine Aminotransferase (ALT/SGPT) 50 Alkaline Phosphatase 62 Total Protein 6.0 L Albumin 3.4 Globulin 2.60 Albumin/Globulin Ratio 1.30 Exam/Review of Systems Exam Vitals Vital Signs Date Temp Pulse Resp B/P (MAP) Pulse Ox O2 O2 Flow FiO2 Time Delivery Rate 08/22/18 98.3 60 19 111/53 98 Room Air 07:16 (72) 08/20/18 2.0 08:20 Intake and Output 08/21/18 08/21/18 08/22/18 1515:00 23:00 07:00 IntakeIntake Total 2000 ml 2150 ml BalanceBalance 2000 ml 2150 ml Results Results 24hrs Laboratory Tests Test 08/21/18 11:31 08/22/18 05:18 08/22/18 07:25 Bedside Glucose 99 88 White Blood Count 3.9 L Red Blood Count 3.62 L Hemoglobin 8.3 L Hematocrit 26.7 L Mean Corpuscular Volume 73.8 L Mean Corpuscular Hemoglobin 22.9 L Mean Corpuscular Hemoglobin Concent 31.1 L Red Cell Distribution Width 15.9 H Platelet Count 229 Mean Platelet Volume 10.5 H Immature Granulocytes % 0.800 H Neutrophils % 47.7 Lymphocytes % 34.6 Monocytes % 11.3 H Eosinophils % 4.6 Basophils % 1.0 Nucleated Red Blood Cells % 0.0 Immature Granulocytes # 0.030 Neutrophils # 1.9 Lymphocytes # 1.4 Monocytes # 0.4 Eosinophils # 0.2 Basophils # 0.0 Nucleated Red Blood Cells # 0.0 Sodium Level 141 Potassium Level 6.1 *H Chloride Level 107 Carbon Dioxide Level 28 Anion Gap 6 Blood Urea Nitrogen 9 Creatinine 0.44 Est Glomerular Filtrat Rate mL/min > 60 Glucose Level 82 Calcium Level 8.5 Total Bilirubin 0.2 Direct Bilirubin 0.00 Indirect Bilirubin 0.2 Aspartate Amino Transf (AST/SGOT) 53 H Alanine Aminotransferase (ALT/SGPT) 50 Alkaline Phosphatase 62 Total Protein 6.0 L Albumin 3.4 Globulin 2.60 Albumin/Globulin Ratio 1.30 Medications Medication Current Medications IV Flush (NS 3 ml) 3 ml PER PROTOCOL IV ; Start 08/13/18 at 20:00 Ondansetron HCl (Zofran Inj) 4 mg Q6H PRN IV NAUSEA AND/OR VOMITING Last administered on 08/15/18 12:04; Admin Dose 4 MG; Start 08/13/18 at 20:00 Duloxetine HCl (Cymbalta) 60 mg DAILY PO Last administered on 08/21/18 08:22; Admin Dose 60 MG; Start 08/14/18 at 09:00 Levothyroxine Sodium (Synthroid) 50 mcg BEFORE BREAKFAST PO Last administered on 08/22/18 05:23; Admin Dose 50 MCG; Start 08/15/18 at 07:00 Alteplase, Recombinant (Cathflo (Activase)) 2 mg MAY REPEAT X1 PRN CATHETER IF CATHETER REMAINS OCCULUDED Last administered on 08/15/18 07:02; Admin Dose 2 MG; Start 08/15/18 at 06:00 Cholecalciferol (Vitamin D) 2,000 unit DAILY PO Last administered on 08/21/18 08:22; Admin Dose 2,000 UNIT; Start 08/17/18 at 09:00 Zinc Sulfate (Zinc Sulfate) 220 mg DAILY PO Last administered on 08/21/18 08:22; Admin Dose 220 MG; Start 08/17/18 at 09:00 Diphenhydramine HCl (Benadryl) 25 mg Q6H PRN IV ITCHING Last administered on 08/22/18 05:23; Admin Dose 25 MG; Start 08/16/18 at 14:00 Eye Lubricant (Artificial Tears Oph) 1 drop Q6H PRN BOTH EYES DRY EYES Last administered on 08/19/18 00:00; Admin Dose 1 DROP; Start 08/16/18 at 23:30 Methylnaltrexone [place] (Relistor) 12 mg Q48H SC Last administered on 08/21/18 09:45; Admin Dose 12 MG; Start 08/17/18 at 09:30 Miscellaneous Information 1 ea NOTE XX ; Start 08/17/18 at 10:30 Glucose (Glutose) 15 gm Q15M PRN PO DECREASED GLUCOSE; Start 08/17/18 at 10:30 Glucose (Glutose) 22.5 gm Q15M PRN PO DECREASED GLUCOSE; Start 08/17/18 at 10:30 Dextrose (D50w Syringe) 25 ml Q15M PRN IV DECREASED GLUCOSE; Start 08/17/18 at 10:30 Dextrose (D50w Syringe) 50 ml Q15M PRN IV DECREASED GLUCOSE; Start 08/17/18 at 10:30 Glucagon (Glucagen) 1 mg Q15M PRN IM DECREASED GLUCOSE; Start 08/17/18 at 10:30 Glucose (Glutose) 15 gm Q15M PRN BUCCAL DECREASED GLUCOSE; Start 08/17/18 at 10:30 Hydromorphone HCl (Dilaudid) 2 mg Q3 PRN IV SEVERE PAIN LEVEL 7-10 Last administered on 08/22/18 05:04; Admin Dose 2 MG; Start 08/17/18 at 14:30 Ciprofloxacin HCl (Ciloxan 0.3% Oph) 1-2 drops in each ey... QID BOTH EYES Last administered on 08/21/18at 21:00; Admin Dose 2 DROP; Start 08/18/18 at 09:00; Stop 08/23/18 at 08:59 Pantoprazole (Protonix Iv) 40 mg BID@06,18 IV Last administered on 08/22/18 05:22; Admin Dose 40 MG; Start 08/18/18 at 18:00 Lorazepam (Ativan) 1 mg Q6H PRN IV Anxiety Last administered on 08/21/18at 22:58; Admin Dose 1 MG; Start 08/18/18 at 14:30 Zolpidem Tartrate (Ambien) 10 mg QHS PRN PO INSOMNIA Last administered on 08/22/18at 00:23; Admin Dose 10 MG; Start 08/20/18 at 11:30 Phenol (Cepastat Lozenge) 1 lozenge Q1H PRN MT THROAT PAIN Last administered on 08/22/18at 02:14; Admin Dose 1 LOZENGE; Start 08/21/18 at 11:00 Diphenhydramine HCl (Benadryl) 25 mg ONCE IV Last administered on 08/21/18 12:21; Admin Dose 25 MG; Start 08/21/18 at 12:30; Stop 08/22/18 at 12:29 Calcium Gluconate 1 gm/Dextrose 110 ml @ 110 mls/hr ONCE ONCE IVPB ; Start 08/22/18 at 08:30; Stop 08/22/18 at 09:29 SUZANNE STEVENSON NP Aug 22, 2018 08:16
[2018-08-22] MEDS: CIPROFLOXACIN 0.3% 2.5 ML OPH BOTH EYES SCH ×4 (08:29→20:49)
[2018-08-22] MEDS: ZINC SULFATE 220 MG CAP PO SCH (08:29)
[2018-08-22] MEDS: DULOXETINE 30 MG CAP DR PO SCH (08:29)
[2018-08-22] MEDS: CHOLECALCIFEROL 2,000 UNIT CAP PO SCH (08:29)
[2018-08-22] MEDS ORDERED: CALCIUM GLUCONATE 10% 1 GM in DEXTROSE 5% 100 ML IVPB ONE (08:30)
[2018-08-22] MEDS: LORAZEPAM 2 MG INJ IV PRN ×2 (08:56→21:50)
--- NOTE | 2018-08-22 11:29 | CONS ---
Assessment/Plan Assessment/Plan Assessment/Plan (Daily) CT chest with contrast was reviewed from yesterday which is negative for pulmonary embolism. Patchy groundglass opacities with micronodules are again identified. Assessment recommendations; 1. Patient with history of questionable lymphoma admitted for recurrent hemoptysis, having underwent workup last year including upper and bronchoscopy with negative findings. 2. Witnessed hemoptysis at bedside. 3. History of DVT and PE. Continue on supportive care. Patient will need to have a repeat bronchoscopy performed. She has agreed for the procedure. We will schedule as soon as possible. Consultation Date/Type/Reason Admit Date/Time Aug 13, 2018 at 17:22 Initial Consult Date 08/19/18 Type of Consult Pulmonary Pulmonary consult requested for evaluation of episode of hemoptysis. Patient is a very pleasant 52-year-old lady who came into the hospital 6 days ago with complaints of abdominal discomfort and diarrhea. Patient has been diagnosed with C. difficile colitis. Patient feeling much better denies any shortness of breath but according to her she coughed up blood this morning small amount without any prior episodes. Patient has been diagnosed with lymphoma with lung involvement recently. Awaiting resumption of chemotherapy. She does have a history of prior lymphoma back in 2007. Patient denies any weight loss. Any chest pain, fever, cough, sputum production. Denies any wheezing. Denies any abdominal pain. Complains of diarrhea. Denies any blood in stool. Past medical history; 1. Status post treatment for lymphoma in 2007. With apparent recurrence involving the lungs. 2. C. difficile colitis on current admission. 3. History of bilateral lower extremity DVT. Status post Green filter placement in the past. 4. History of thyroid cancer. 5. History of hypothyroidism. Medications; reviewed. Allergies; as outlined above. Social history; patient has been a lifelong non-smoker. Family history; noncontributory. Patient is . No show any malignancy. Occupational history; patient is on disability. Review of systems; denies any headache, seizures, sinus symptoms. Any ep istaxis. Denies any chest pain, wheezing, shortness breath, cough. Patient had scant about of hemoptysis early this morning. Denies any fever, chills. Any abdominal pain. Complains of diarrhea. Denies any melena or hematochezia. Any orthopnea. Any weight loss. Any skin changes or any arthritis symptoms. General exam; young female, awake alert, currently no distress. Laying comfortably in bed. Requesting Provider: SHAQUILLE HARRIS Date/Time of Note DATE: 08/22/18 TIME: 11:27 24 HR Interval Summary Free Text/Dictation Patient's condition is stable overall. Still having significant hemoptysis off and on. Patient denies any chest pain, wheezing, cough. General exam; middle-aged female, awake alert, currently in no distress. Exam/Review of Systems Exam Vitals Vital Signs Date Temp Pulse Resp B/P (MAP) Pulse Ox O2 O2 Flow FiO2 Time Delivery Rate 08/22/18 98.3 77 18 125/77 97 Room Air 11:25 (93) 08/22/18 21 08:29 08/20/18 2.0 08:20 Intake and Output 08/21/18 08/21/18 08/22/18 1414:59 22:59 06:59 IntakeIntake Total 2000 ml 2150 ml BalanceBalance 2000 ml 2150 ml Exam HEENT exam; supple neck, no JVD. No lymphadenopathy. Midline trachea. No thyromegaly. Pharynx is clear. Patient is edentulous. No neck masses. Chest exam; clear to auscultation. S1-S2 audible, no murmurs. Regular rhythm. Abdomen exam; soft, nontender. No organomegaly. Bowel sounds audible. Extremity exam; no peripheral edema clubbing. [employer] exam; no focal deficit. Results Result Diagram: 08/22/18 0518 08/22/18 0851 Results 24hrs Laboratory Tests Test 08/21/18 11:31 08/22/18 05:18 08/22/18 07:25 08/22/18 08:51 Bedside Glucose 99 88 White Blood Count 3.9 L Red Blood Count 3.62 L Hemoglobin 8.3 L Hematocrit 26.7 L Mean Corpuscular 73.8 L Volume Mean Corpuscular 22.9 L Hemoglobin Mean Corpuscular 31.1 L Hemoglobin Concent Red Cell 15.9 H Distribution Width Platelet Count 229 Mean Platelet Volume 10.5 H Immature 0.800 H Granulocytes % Neutrophils % 47.7 Lymphocytes % 34.6 Monocytes % 11.3 H Eosinophils % 4.6 Basophils % 1.0 Nucleated Red Blood 0.0 Cells % Immature 0.030 Granulocytes # Neutrophils # 1.9 Lymphocytes # 1.4 Monocytes # 0.4 Eosinophils # 0.2 Basophils # 0.0 Nucleated Red Blood 0.0 Cells # Sodium Level 141 141 Potassium Level 6.1 *H 3.6 # Chloride Level 107 100 Carbon Dioxide Level 28 27 Anion Gap 6 14 #H Blood Urea Nitrogen 9 8 Creatinine 0.44 0.49 Est Glomerular > 60 > 60 Filtrat Rate mL/min Glucose Level 82 149 # Calcium Level 8.5 8.7 Total Bilirubin 0.2 Direct Bilirubin 0.00 Indirect Bilirubin 0.2 Aspartate Amino 53 H Transf (AST/SGOT) Alanine 50 Aminotransferase (AL T/SGPT) Alkaline Phosphatase 62 Total Protein 6.0 L Albumin 3.4 Globulin 2.60 Albumin/Globulin 1.30 Ratio Medications Medication Current Medications IV Flush (NS 3 ml) 3 ml PER PROTOCOL IV ; Start 08/13/18 at 20:00 Ondansetron HCl (Zofran Inj) 4 mg Q6H PRN IV NAUSEA AND/OR VOMITING Last administered on 08/15/18 12:04; Admin Dose 4 MG; Start 08/13/18 at 20:00 Duloxetine HCl (Cymbalta) 60 mg DAILY PO Last administered on 08/22/18 08:29; Admin Dose 60 MG; Start 08/14/18 at 09:00 Levothyroxine Sodium (Synthroid) 50 mcg BEFORE BREAKFAST PO Last administered on 08/22/18 05:23; Admin Dose 50 MCG; Start 08/15/18 at 07:00 Alteplase, Recombinant (Cathflo (Activase)) 2 mg MAY REPEAT X1 PRN CATHETER IF CATHETER REMAINS OCCULUDED Last administered on 08/15/18 07:02; Admin Dose 2 MG; Start 08/15/18 at 06:00 Cholecalciferol (Vitamin D) 2,000 unit DAILY PO Last administered on 08/22/18 08:29; Admin Dose 2,000 UNIT; Start 08/17/18 at 09:00 Zinc Sulfate (Zinc Sulfate) 220 mg DAILY PO Last administered on 08/22/18 08:29; Admin Dose 220 MG; Start 08/17/18 at 09:00 Diphenhydramine HCl (Benadryl) 25 mg Q6H PRN IV ITCHING Last administered on 08/22/18 05:23; Admin Dose 25 MG; Start 08/16/18 at 14:00 Eye Lubricant (Artificial Tears Oph) 1 drop Q6H PRN BOTH EYES DRY EYES Last administered on 08/19/18at 00:00; Admin Dose 1 DROP; Start 08/16/18 at 23:30 Methylnaltrexone [place] (Relistor) 12 mg Q48H SC Last administered on 08/21/18at 09:45; Admin Dose 12 MG; Start 08/17/18 at 09:30 Miscellaneous Information 1 ea NOTE XX ; Start 08/17/18 at 10:30 Glucose (Glutose) 15 gm Q15M PRN PO DECREASED GLUCOSE; Start 08/17/18 at 10:30 Glucose (Glutose) 22.5 gm Q15M PRN PO DECREASED GLUCOSE; Start 08/17/18 at 10:30 Dextrose (D50w Syringe) 25 ml Q15M PRN IV DECREASED GLUCOSE; Start 08/17/18 at 10:30 Dextrose (D50w Syringe) 50 ml Q15M PRN IV DECREASED GLUCOSE; Start 08/17/18 at 10:30 Glucagon (Glucagen) 1 mg Q15M PRN IM DECREASED GLUCOSE; Start 08/17/18 at 10:30 Glucose (Glutose) 15 gm Q15M PRN BUCCAL DECREASED GLUCOSE; Start 08/17/18 at 10:30 Hydromorphone HCl (Dilaudid) 2 mg Q3 PRN IV SEVERE PAIN LEVEL 7-10 Last administered on 08/22/18at 08:29; Admin Dose 2 MG; Start 08/17/18 at 14:30 Ciprofloxacin HCl (Ciloxan 0.3% Oph) 1-2 drops in each ey... QID BOTH EYES Last administered on 08/22/18at 08:29; Admin Dose 2 DROP; Start 08/18/18 at 09:00; Stop 08/23/18 at 08:59 Pantoprazole (Protonix Iv) 40 mg BID@06,18 IV Last administered on 08/22/18at 05:22; Admin Dose 40 MG; Start 08/18/18 at 18:00 Lorazepam (Ativan) 1 mg Q6H PRN IV Anxiety Last administered on 08/22/18at 08:56; Admin Dose 1 MG; Start 08/18/18 at 14:30 Zolpidem Tartrate (Ambien) 10 mg QHS PRN PO INSOMNIA Last administered on 08/22/18at 00:23; Admin Dose 10 MG; Start 08/20/18 at 11:30 Phenol (Cepastat Lozenge) 1 lozenge Q1H PRN MT THROAT PAIN Last administered on 08/22/18at 08:29; Admin Dose 1 LOZENGE; Start 08/21/18 at 11:00 Diphenhydramine HCl (Benadryl) 25 mg ONCE IV Last administered on 08/21/18at 12:21; Admin Dose 25 MG; Start 08/21/18 at 12:30; Stop 08/22/18 at 12:29 ISABELLA EPSTEIN Aug 22, 2018 11:29
--- NOTE | 2018-08-22 11:29 | CONS ---
[facility] HCIS Consult Follow-up Patient Name: Khadijah Masters Unit Number: [id number] Date of : 1965 Patient Status: Admitted Inpatient Attending Doctor: Zoe Garcia Edit: REGINA HUTCHINSON M.D. on 08/24/18 @ 13:42 management d/w CHIEF RECORDIST Thiago and agree with above Assessment/Plan Assessment/Plan Hospital Course (Demo Recall) - S/p CT guided bone marrow aspiration and biopsy 08/20/2018 - Microcytic anemia requiring PRBC d/t acute blood loss - Delgado-colitis per CT - S/p sigmoidoscopy with biopsy 08/17/2018; path shows no e/o colitis or malignancy from transverse colon and rectum biopsies - S/p bloody diarrhea d/t Giardia; C. diff negative - H/o recent C. diff ~04/2018 at [facility] - previously on Fidaxomicin at [facility] - H/o bacteremia vs fungemia with details unknown - Pt reports she was in a coma for 7 days d/t "infection in the blood" at [facility] - Hemoptysis, recurrent. Pt reports negative PPD last month at [facility] and negative TB workup in February 2018 at [facility] - Numerous tiny lung nodules, increased in number from the chest CT dated May 22, 2018, with largest measuring 0.3 cm in the left apex - H/o BUE and RLE DVT, s/p IVC filter in January 2018 - H/o Hodgkin lymphoma - H/o thyroid CA, s/p resection, chemo and XRT - Bilateral conjunctivitis - improving with Cipro eye drops - Hypothyroidism - HLD - OA - Depression/anxiety - H/o cholecystectomy - H/o x2 - +Family hx of cancer (father of stomach CA, mother of lymphoma, paternal uncle had breast CA and 12 yo daughter has h/o brain tumor s/p surgery and resulting blindness) - Allergy to PCN and vancomycin Recommendations: - Macrobid ordered - 1st dose to begin after ua/cx obtained - Ordered Ua/cx: pt developing burning, frequency, and odorous urine - s/p 7 day course of Flagyl for Giardia (08/14/2018-08/21/2018) - F/u coccidiomycosis and aspergillus serology, bone marrow bx to r/o MDS, and sputum fungal culture (in process) - F/u records from [facility] - requested and awaiting - F/u records from [facility] (Pt reports was hospitalized for >1 month in 04/2018 with infection in the blood) and [facility] (Pt had negative w/u for TB in 02/2018) - requested and awaiting Management d/w patient, and with Dr. Hutchinson. Thank you Consultation Date/Type/Reason Admit Date/Time Aug 13, 2018 at 17:22 Initial Consult Date 08/19/18 Type of Consult ID Requesting Provider: SHAQUILLE HARRIS Date/Time of Note DATE: 08/22/18 TIME: 11:25 24 HR Interval Summary Free Text/Dictation Patient is still c/o hemoptysis - shows me a cup with her hemoptysis noted inside. Cough, sob after coughing. Also c/o pleuritic pain after coughing. C/o chills last night again. Denies fevers or night sweats. Denied n/v/d, pruritis, or rash. C/o burning on urination which she states started yesterday, states urine has an "odor" and she is c/o frequency. Exam/Review of Systems Exam Vitals Vital Signs Date Temp Pulse Resp B/P (MAP) Pulse Ox O2 O2 Flow FiO2 Time Delivery Rate 08/22/18 97 21 08:29 08/22/18 88 16 08:29 08/22/18 98.3 111/53 Room Air 07:16 (72) 08/20/18 2.0 08:20 Intake and Output 08/21/18 08/21/18 08/22/18 1515:00 23:00 07:00 IntakeIntake Total 2000 ml 2150 ml BalanceBalance 2000 ml 2150 ml Allergies Coded Allergies Iodinated Contrast- Oral and IV Dye (Verified Allergy, Severe, 08/20/18) Iodine and Iodide Containing Produc (Verified Allergy, Unknown, 08/13/18) Penicillins (Verified Allergy, Unknown, 08/13/18) ketorolac (Verified Allergy, Unknown, 08/13/18) morphine (Verified Allergy, Unknown, 08/13/18) vancomycin (Verified Allergy, Unknown, 08/13/18) Constitutional: alert, oriented, well developed, obese Psych: no complaints, nl mood/affect, depression Head: normocephalic, atraumatic Eyes: nl conjunctiva, nl lids, nl sclera ENMT: nl external ears & nose, nl nasal mucosa & septum, mucosa pink and moist (no thrush noted ) Neck: supple, non-tender Respiratory: clear to auscultation, normal air movement Cardiovascular: regular rate and rhythm, nl pulses Gastrointestinal: soft, non-tender, bowel sounds (normoactive ) Musculoskeletal: nl extremities to inspection Extremities: normal pulses Neurological: nl mental status, nl speech, nl strength Skin: nl turgor; No rash or lesions Results Result Diagram: 08/22/1818 08/22/18 0851 Results 24hrs Laboratory Tests Test 08/21/18 11:31 08/22/18 05:18 08/22/18 07:25 08/22/18 08:51 Bedside Glucose 99 88 White Blood Count 3.9 L Red Blood Count 3.62 L Hemoglobin 8.3 L Hematocrit 26.7 L Mean Corpuscular 73.8 L Volume Mean Corpuscular 22.9 L Hemoglobin Mean Corpuscular 31.1 L Hemoglobin Concent Red Cell 15.9 H Distribution Width Platelet Count 229 Mean Platelet Volume 10.5 H Immature 0.800 H Granulocytes % Neutrophils % 47.7 Lymphocytes % 34.6 Monocytes % 11.3 H Eosinophils % 4.6 Basophils % 1.0 Nucleated Red Blood 0.0 Cells % Immature 0.030 Granulocytes # Neutrophils # 1.9 Lymphocytes # 1.4 Monocytes # 0.4 Eosinophils # 0.2 Basophils # 0.0 Nucleated Red Blood 0.0 Cells # Sodium Level 141 141 Potassium Level 6.1 *H 3.6 # Chloride Level 107 100 Carbon Dioxide Level 28 27 Anion Gap 6 14 #H Blood Urea Nitrogen 9 8 Creatinine 0.44 0.49 Est Glomerular > 60 > 60 Filtrat Rate mL/min Glucose Level 82 149 # Calcium Level 8.5 8.7 Total Bilirubin 0.2 Direct Bilirubin 0.00 Indirect Bilirubin 0.2 Aspartate Amino 53 H Transf (AST/SGOT) Alanine 50 Aminotransferase (AL T/SGPT) Alkaline Phosphatase 62 Total Protein 6.0 L Albumin 3.4 Globulin 2.60 Albumin/Globulin 1.30 Ratio Imaging Imaging Chest/Thorax CTA 08/21/18 IMPRESSION: No pulmonary embolism. No thoracic aortic aneurysm or dissection. No pneumonia. Mild ground-glass interstitial infiltrates suggestive of mild interstitial edema. No mass. Stable pleural-based micro nodules both lungs unchanged from recent prior study. Question sequela inflammatory versus infectious disease . Metastatic disease cannot be ruled out. Follow-up CT should be performed in X 3-4 months to insure stability. Medications Medication Current Medications IV Flush (NS 3 ml) 3 ml PER PROTOCOL IV ; Start 08/13/18 at 20:00 Ondansetron HCl (Zofran Inj) 4 mg Q6H PRN IV NAUSEA AND/OR VOMITING Last administered on 08/15/18 12:04; Admin Dose 4 MG; Start 08/13/18 at 20:00 Duloxetine HCl (Cymbalta) 60 mg DAILY PO Last administered on 08/22/18 08:29; Admin Dose 60 MG; Start 08/14/18 at 09:00 Levothyroxine Sodium (Synthroid) 50 mcg BEFORE BREAKFAST PO Last administered on 08/22/18 05:23; Admin Dose 50 MCG; Start 08/15/18 at 07:00 Alteplase, Recombinant (Cathflo (Activase)) 2 mg MAY REPEAT X1 PRN CATHETER IF CATHETER REMAINS OCCULUDED Last administered on 08/15/18 07:02; Admin Dose 2 MG; Start 08/15/18 at 06:00 Cholecalciferol (Vitamin D) 2,000 unit DAILY PO Last administered on 08/22/18 08:29; Admin Dose 2,000 UNIT; Start 08/17/18 at 09:00 Zinc Sulfate (Zinc Sulfate) 220 mg DAILY PO Last administered on 08/22/18 08:29; Admin Dose 220 MG; Start 08/17/18 at 09:00 Diphenhydramine HCl (Benadryl) 25 mg Q6H PRN IV ITCHING Last administered on 08/22/18 05:23; Admin Dose 25 MG; Start 08/16/18 at 14:00 Eye Lubricant (Artificial Tears Oph) 1 drop Q6H PRN BOTH EYES DRY EYES Last administered on 08/19/18at 00:00; Admin Dose 1 DROP; Start 08/16/18 at 23:30 Methylnaltrexone [place] (Relistor) 12 mg Q48H SC Last administered on 08/21/18at 09:45; Admin Dose 12 MG; Start 08/17/18 at 09:30 Miscellaneous Information 1 ea NOTE XX ; Start 08/17/18 at 10:30 Glucose (Glutose) 15 gm Q15M PRN PO DECREASED GLUCOSE; Start 08/17/18 at 10:30 Glucose (Glutose) 22.5 gm Q15M PRN PO DECREASED GLUCOSE; Start 08/17/18 at 10:30 Dextrose (D50w Syringe) 25 ml Q15M PRN IV DECREASED GLUCOSE; Start 08/17/18 at 10:30 Dextrose (D50w Syringe) 50 ml Q15M PRN IV DECREASED GLUCOSE; Start 08/17/18 at 10:30 Glucagon (Glucagen) 1 mg Q15M PRN IM DECREASED GLUCOSE; Start 08/17/18 at 10:30 Glucose (Glutose) 15 gm Q15M PRN BUCCAL DECREASED GLUCOSE; Start 08/17/18 at 10:30 Hydromorphone HCl (Dilaudid) 2 mg Q3 PRN IV SEVERE PAIN LEVEL 7-10 Last administered on 08/22/18at 08:29; Admin Dose 2 MG; Start 08/17/18 at 14:30 Ciprofloxacin HCl (Ciloxan 0.3% Oph) 1-2 drops in each ey... QID BOTH EYES Last administered on 08/22/18at 08:29; Admin Dose 2 DROP; Start 08/18/18 at 09:00; Stop 08/23/18 at 08:59 Pantoprazole (Protonix Iv) 40 mg BID@06,18 IV Last administered on 08/22/18at 05:22; Admin Dose 40 MG; Start 08/18/18 at 18:00 Lorazepam (Ativan) 1 mg Q6H PRN IV Anxiety Last administered on 08/22/18at 08:56; Admin Dose 1 MG; Start 08/18/18 at 14:30 Zolpidem Tartrate (Ambien) 10 mg QHS PRN PO INSOMNIA Last administered on 08/22/18at 00:23; Admin Dose 10 MG; Start 08/20/18 at 11:30 Phenol (Cepastat Lozenge) 1 lozenge Q1H PRN MT THROAT PAIN Last administered on 08/22/18at 08:29; Admin Dose 1 LOZENGE; Start 08/21/18 at 11:00 Diphenhydramine HCl (Benadryl) 25 mg ONCE IV Last administered on 08/21/18at 12:21; Admin Dose 25 MG; Start 08/21/18 at 12:30; Stop 08/22/18 at 12:29 LAST GARNER NP Aug 22, 2018 11:29
[2018-08-22] MEDS: NITROFURANTOIN (SR) 100 MG CAP PO SCH ×2 (17:49→20:47)
[2018-08-23] VITALS (9 sets, daily range): BP systolic 116–149; BP diastolic 64–87; PULSE 66–104; RESP 16–18
[2018-08-23] MEDS: HYDROmorphONE 2 MG/ML SYG IV PRN ×8 (00:06→23:04)
[2018-08-23] MEDS: DIPHENHYDRAMINE 50 MG INJ IV PRN ×4 (00:07→19:53)
[2018-08-23] MEDS: ZOLPIDEM 5 MG TAB PO PRN ×2 (02:10→21:05)
[2018-08-23] MEDS: LEVOTHYROXINE 50 MCG TAB PO SCH (06:33)
[2018-08-23] MEDS: PANTOPRAZOLE 40 MG INJ IV SCH ×2 (06:50→17:56)
[2018-08-23] MEDS: NITROFURANTOIN (SR) 100 MG CAP PO SCH ×2 (08:35→21:05)
[2018-08-23] MEDS: CHOLECALCIFEROL 2,000 UNIT CAP PO SCH (08:35)
[2018-08-23] MEDS: ZINC SULFATE 220 MG CAP PO SCH (08:35)
[2018-08-23] MEDS: DULOXETINE 30 MG CAP DR PO SCH (08:35)
[2018-08-23] MEDS: METHYLNALTREXONE 12 MG/0.6 ML VIAL SC SCH (08:36)
--- NOTE | 2018-08-23 08:41 | CONS ---
Assessment/Plan Assessment/Plan Assessment/Plan (Daily) Assessment recommendations; 1. Patient admitted with recurrent hemoptysis having undergone workup including a bronchoscopy at another facility without any diagnosis being made. 2. Question of history of lymphoma. 3. History of PE and DVT. Patient has been off anticoagulation for quite some time now. CT imaging of the chest with contrast is negative for pulmonary embolism. However still showing multiple bilateral millimeter sized nodules. Continue current supportive care. Patient scheduled for bronchoscopy today. Consultation Date/Type/Reason Admit Date/Time Aug 13, 2018 at 17:22 Initial Consult Date 08/19/18 Type of Consult Pulmonary Pulmonary consult requested for evaluation of episode of hemoptysis. Patient is a very pleasant 52-year-old lady who came into the hospital 6 days ago with complaints of abdominal discomfort and diarrhea. Patient has been diagnosed with C. difficile colitis. Patient feeling much better denies any shortness of breath but according to her she coughed up blood this morning small amount without any prior episodes. Patient has been diagnosed with lymphoma with lung involvement recently. Awaiting resumption of chemotherapy. She does have a history of prior lymphoma back in 2007. Patient denies any weight loss. Any chest pain, fever, cough, sputum production. Denies any wheezing. Denies any abdominal pain. Complains of diarrhea. Denies any blood in stool. Past medical history; 1. Status post treatment for lymphoma in 2007. With apparent recurrence involving the lungs. 2. C. difficile colitis on current admission. 3. History of bilateral lower extremity DVT. Status post Green filter placement in the past. 4. History of thyroid cancer. 5. History of hypothyroidism. Medications; reviewed. Allergies; as outlined above. Social history; patient has been a lifelong non-smoker. Family history; noncontributory. Patient is . No show any malignancy. Occupational history; patient is on disability. Review of systems; denies any headache, seizures, sinus symptoms. Any epistaxis. Denies any chest pain, wheezing, shortness breath, cough. Patient had scant about of hemoptysis early this morning. Denies any fever, chills. Any abdominal pain. Complains of diarrhea. Denies any melena or hematochezia. Any orthopnea. Any weight loss. Any skin changes or any arthritis symptoms. General exam; young female, awake alert, currently no distress. Laying comfortably in bed. Requesting Provider: SHAQUILLE HARRIS Date/Time of Note DATE: 08/23/18 TIME: 08:39 24 HR Interval Summary Free Text/Dictation Patient's condition is stable overall. Still having occasional hemoptysis. Patient denies any chest pain, fever, wheezing, any shortness of breath. General exam; young female, awake alert, currently no distress. Exam/Review of Systems Exam Vitals Vital Signs Date Temp Pulse Resp B/P (MAP) Pulse Ox O2 O2 Flow FiO2 Time Delivery Rate 08/23/18 98.0 69 16 116/64 98 Room Air 07:36 (81) 08/22/18 21 08:29 08/20/18 2.0 08:20 Intake and Output 08/22/18 08/22/18 08/23/18 1515:00 23:00 07:00 IntakeIntake Total 1500 ml BalanceBalance 1500 ml Exam HEENT exam; supple neck, no JVD. No lymphadenopathy. Midline trachea. No thyromegaly. Patient is edentulous. No neck masses. Chest exam; clear to auscultation. S1-S2 audible, no murmurs. Regular rhythm. Abdomen exam; soft, nontender. No organomegaly. Bowel sounds audible. Extremity exam; no peripheral edema or clubbing. TRADE PROMOTION ANALYST exam; no focal deficit. Results Result Diagram: 08/23/18 0511 08/23/18 0511 Results 24hrs Laboratory Tests Test 08/22/18 08:51 08/22/18 16:15 08/23/18 05:11 08/23/18 05:12 Sodium Level 141 143 Potassium Level 3.6 # 4.0 Chloride Level 100 100 Carbon Dioxide Level 27 29 Anion Gap 14 #H 14 H Blood Urea Nitrogen 8 13 Creatinine 0.49 0.54 Est Glomerular > 60 > 60 Filtrat Rate mL/min Glucose Level 149 # 86 # Calcium Level 8.7 9.2 Urine Color STRAW Urine Clarity CLEAR Urine pH 6.0 Urine Specific 1.004 [place] Urine Ketones NEGATIVE Urine Nitrite NEGATIVE Urine Bilirubin NEGATIVE Urine Urobilinogen NEGATIVE Urine Leukocyte NEGATIVE Esterase Urine Hemoglobin NEGATIVE Urine Glucose NEGATIVE Urine Total Protein NEGATIVE White Blood Count 4.4 L Red Blood Count 3.95 L Hemoglobin 9.1 L Hematocrit 29.3 L Mean Corpuscular 74.2 L Volume Mean Corpuscular 23.0 L Hemoglobin Mean Corpuscular 31.1 L Hemoglobin Concent Red Cell 15.8 H Distribution Width Platelet Count 259 Mean Platelet Volume 10.6 H Immature 0.900 H Granulocytes % Neutrophils % 54.3 Lymphocytes % 29.3 Monocytes % 10.5 Eosinophils % 4.1 Basophils % 0.9 Nucleated Red Blood 0.0 Cells % Immature 0.040 H Granulocytes # Neutrophils # 2.4 Lymphocytes # 1.3 Monocytes # 0.5 Eosinophils # 0.2 Basophils # 0.0 Nucleated Red Blood 0.0 Cells # Prothrombin Time 12.8 Prothrombin Time 1.0 Ratio INR International 0.95 Normalized Ratio Activated 29.0 Partial Thromboplast Time Phosphorus Level 6.0 H Magnesium Level 1.8 Medications Medication Current Medications IV Flush (NS 3 ml) 3 ml PER PROTOCOL IV ; Start 08/13/18 at 20:00 Ondansetron HCl (Zofran Inj) 4 mg Q6H PRN IV NAUSEA AND/OR VOMITING Last ad ministered on 08/15/18 12:04; Admin Dose 4 MG; Start 08/13/18 at 20:00 Duloxetine HCl (Cymbalta) 60 mg DAILY PO Last administered on 08/23/18 08:35; Admin Dose 60 MG; Start 08/14/18 at 09:00 Levothyroxine Sodium (Synthroid) 50 mcg BEFORE BREAKFAST PO Last administered on 08/22/18 05:23; Admin Dose 50 MCG; Start 08/15/18 at 07:00 Alteplase, Recombinant (Cathflo (Activase)) 2 mg MAY REPEAT X1 PRN CATHETER IF CATHETER REMAINS OCCULUDED Last administered on 08/15/18 07:02; Admin Dose 2 MG; Start 08/15/18 at 06:00 Cholecalciferol (Vitamin D) 2,000 unit DAILY PO Last administered on 08/23/18 08:35; Admin Dose 2,000 UNIT; Start 08/17/18 at 09:00 Zinc Sulfate (Zinc Sulfate) 220 mg DAILY PO Last administered on 08/23/18 08:35; Admin Dose 220 MG; Start 08/17/18 at 09:00 Diphenhydramine HCl (Benadryl) 25 mg Q6H PRN IV ITCHING Last administered on 08/23/18 06:50; Admin Dose 25 MG; Start 08/16/18 at 14:00 Eye Lubricant (Artificial Tears Oph) 1 drop Q6H PRN BOTH EYES DRY EYES Last administered on 08/19/18 00:00; Admin Dose 1 DROP; Start 08/16/18 at 23:30 Methylnaltrexone [place] (Relistor) 12 mg Q48H SC Last administered on 08/23/18 08:36; Admin Dose 12 MG; Start 08/17/18 at 09:30 Miscellaneous Information 1 ea NOTE XX ; Start 08/17/18 at 10:30 Glucose (Glutose) 15 gm Q15M PRN PO DECREASED GLUCOSE; Start 08/17/18 at 10:30 Glucose (Glutose) 22.5 gm Q15M PRN PO DECREASED GLUCOSE; Start 08/17/18 at 10:30 Dextrose (D50w Syringe) 25 ml Q15M PRN IV DECREASED GLUCOSE; Start 08/17/18 at 10:30 Dextrose (D50w Syringe) 50 ml Q15M PRN IV DECREASED GLUCOSE; Start 08/17/18 at 10:30 Glucagon (Glucagen) 1 mg Q15M PRN IM DECREASED GLUCOSE; Start 08/17/18 at 10:30 Glucose (Glutose) 15 gm Q15M PRN BUCCAL DECREASED GLUCOSE; Start 08/17/18 at 10:30 Hydromorphone HCl (Dilaudid) 2 mg Q3 PRN IV SEVERE PAIN LEVEL 7-10 Last administered on 08/23/18 06:51; Admin Dose 2 MG; Start 08/17/18 at 14:30 Ciprofloxacin HCl (Ciloxan 0.3% Oph) 1-2 drops in each ey... QID BOTH EYES Last administered on 08/22/18at 20:49; Admin Dose 1 DROP; Start 08/18/18 at 09:00; Stop 08/23/18 at 08:59 Pantoprazole (Protonix Iv) 40 mg BID@06,18 IV Last administered on 08/23/18 06:50; Admin Dose 40 MG; Start 08/18/18 at 18:00 Lorazepam (Ativan) 1 mg Q6H PRN IV Anxiety Last administered on 08/22/18 21: 50; Admin Dose 1 MG; Start 08/18/18 at 14:30 Zolpidem Tartrate (Ambien) 10 mg QHS PRN PO INSOMNIA Last administered on 1/28/19at 02:10; Admin Dose 10 MG; Start 08/20/18 at 11:30 Phenol (Cepastat Lozenge) 1 lozenge Q1H PRN MT THROAT PAIN Last administered on 08/22/18at 20:48; Admin Dose 1 LOZENGE; Start 08/21/18 at 11:00 Nitrofurantoin Macrocrystals (Macrobid) 100 mg BID PO Last administered on at 08:35; Admin Dose 100 MG; Start 08/22/18 at 15:00; Stop 08/27/18 at 15:00 ISABELLA EPSTEIN Aug 23, 2018 08:41
[2018-08-23] MEDS: CEPASTAT LOZENGE MT PRN ×2 (08:42→10:22)
--- NOTE | 2018-08-23 11:58 | CONS ---
Assessment/Plan Assessment/Plan Assessment/Plan (Daily) #h/o Lymphoma -thus far there are no lesions that can be biopsied and it does not appear she has active cancer # -Hgb Electrophoresis - confirms B- thalassemia trait with Anemia #Anemia -pt has had microcytic anemia requiring transfusions for years -will order a bone marrow bx at this time- pending -anemia panel ordered #Hemoptysis -s/p unremarkable bronchoscopy at [facility] -s/p unremarkable flexible laryngoscopy 02/05/17 at [facility] -CT Chest pulmonary nodules are noted but are too small to biopsy --ID workup pending for pulmonary nodules -08/21/18-CT Chest Angio- no new changes. will do Follow-up CT in X 3-4 months to insure stability as recommended #pancolitis. -Colonoscopy on 08/17/2018 showed patchy colitis. bx was negative -Stool positive for Giardia- pt on vancomycin and flagyl Patient seen in collaboration with Dr Brown. Dw Staff Consultation Date/Type/Reason Admit Date/Time Aug 13, 2018 at 17:22 Initial Consult Date 08/19/18 Type of Consult ONCOLOGY Reason for Consultation #h/o Lymphoma Requesting Provider: SHAQUILLE HARRIS Date/Time of Note DATE: 08/23/18 TIME: 11:55 24 HR Interval Summary Free Text/Dictation -Hgb Electrophoresis - confirms B- thalassemia trait with Anemia -Plan for Bronchoscopy on Thursday - No new events reported last night per staff Constitutional: requiring O2 Detailed Summary Respiratory: shortness of breath Cardiovascular: no complaints Gastrointestinal: no complaints Genitourinary: no complaints Musculoskeletal: no complaints Skin: no complaints Exam/Review of Systems Exam Vitals Vital Signs Date Temp Pulse Resp B/P (MAP) Pulse Ox O2 O2 Flow FiO2 Time Delivery Rate 08/23/18 67 08:01 08/23/18 98.0 16 116/64 98 Room Air 07:36 (81) 08/22/18 21 08:29 08/20/18 2.0 08:20 Intake and Output 08/22/18 08/22/18 08/23/18 1515:00 23:00 07:00 IntakeIntake Total 1500 ml BalanceBalance 1500 ml Constitutional: alert, oriented, well developed Psych: nl mood/affect Eyes: EOMI, nl lids, nl sclera ENMT: nl external ears & nose Respiratory: diminished breath sounds Cardiovascular: other (s1s2) Gastrointestinal: soft Musculoskeletal: nl extremities to inspection Extremities: normal pulses Neurological: nl speech, other (al) Skin: nl turgor Lymph: nontender Results Result Diagram: 08/23/18 0511 08/23/18 0511 Results 24hrs Laboratory Tests Test 08/22/18 16:15 08/23/18 05:11 08/23/18 05:12 Urine Color STRAW Urine Clarity CLEAR Urine pH 6.0 Urine Specific [place] 1.004 Urine Ketones NEGATIVE Urine Nitrite NEGATIVE Urine Bilirubin NEGATIVE Urine Urobilinogen NEGATIVE Urine Leukocyte Esterase NEGATIVE Urine Hemoglobin NEGATIVE Urine Glucose NEGATIVE Urine Total Protein NEGATIVE White Blood Count 4.4 L Red Blood Count 3.95 L Hemoglobin 9.1 L Hematocrit 29.3 L Mean Corpuscular Volume 74.2 L Mean Corpuscular Hemoglobin 23.0 L Mean Corpuscular Hemoglobin Concent 31.1 L Red Cell Distribution Width 15.8 H Platelet Count 259 Mean Platelet Volume 10.6 H Immature Granulocytes % 0.900 H Neutrophils % 54.3 Lymphocytes % 29.3 Monocytes % 10.5 Eosinophils % 4.1 Basophils % 0.9 Nucleated Red Blood Cells % 0.0 Immature Granulocytes # 0.040 H Neutrophils # 2.4 Lymphocytes # 1.3 Monocytes # 0.5 Eosinophils # 0.2 Basophils # 0.0 Nucleated Red Blood Cells # 0.0 Prothrombin Time 12.8 Prothrombin Time Ratio 1.0 INR International Normalized Ratio 0.95 Activated Partial Thromboplast Time 29.0 Sodium Level 143 Potassium Level 4.0 Chloride Level 100 Carbon Dioxide Level 29 Anion Gap 14 H Blood Urea Nitrogen 13 Creatinine 0.54 Est Glomerular Filtrat Rate mL/min > 60 Glucose Level 86 # Calcium Level 9.2 Phosphorus Level 6.0 H Magnesium Level 1.8 Medications Medication Current Medications IV Flush (NS 3 ml) 3 ml PER PROTOCOL IV ; Start 08/13/18 at 20:00 Ondansetron HCl (Zofran Inj) 4 mg Q6H PRN IV NAUSEA AND/OR VOMITING Last administered on 08/15/18at 12:04; Admin Dose 4 MG; Start 08/13/18 at 20:00 Duloxetine HCl (Cymbalta) 60 mg DAILY PO Last administered on 08/23/18at 08:35; Admin Dose 60 MG; Start 08/14/18 at 09:00 Levothyroxine Sodium (Synthroid) 50 mcg BEFORE BREAKFAST PO Last administered on 08/22/18at 05:23; Admin Dose 50 MCG; Start 08/15/18 at 07:00 Alteplase, Recombinant (Cathflo (Activase)) 2 mg MAY REPEAT X1 PRN CATHETER IF CATHETER REMAINS OCCULUDED Last administered on 08/15/18at 07:02; Admin Dose 2 MG; Start 08/15/18 at 06:00 Cholecalciferol (Vitamin D) 2,000 unit DAILY PO Last administered on 08/23/18at 08:35; Admin Dose 2,000 UNIT; Start 08/17/18 at 09:00 Zinc Sulfate (Zinc Sulfate) 220 mg DAILY PO Last administered on 08/23/18at 08:35; Admin Dose 220 MG; Start 08/17/18 at 09:00 Diphenhydramine HCl (Benadryl) 25 mg Q6H PRN IV ITCHING Last administered on 08/23/18at 06:50; Admin Dose 25 MG; Start 08/16/18 at 14:00 Eye Lubricant (Artificial Tears Oph) 1 drop Q6H PRN BOTH EYES DRY EYES Last administered on 08/19/18at 00:00; Admin Dose 1 DROP; Start 08/16/18 at 23:30 Methylnaltrexone [place] (Relistor) 12 mg Q48H SC Last administered on 08/23/18at 08:36; Admin Dose 12 MG; Start 08/17/18 at 09:30 Miscellaneous Information 1 ea NOTE XX ; Start 08/17/18 at 10:30 Glucose (Glutose) 15 gm Q15M PRN PO DECREASED GLUCOSE; Start 08/17/18 at 10:30 Glucose (Glutose) 22.5 gm Q15M PRN PO DECREASED GLUCOSE; Start 08/17/18 at 1 0:30 Dextrose (D50w Syringe) 25 ml Q15M PRN IV DECREASED GLUCOSE; Start 08/17/18 at 10:30 Dextrose (D50w Syringe) 50 ml Q15M PRN IV DECREASED GLUCOSE; Start 08/17/18 at 10:30 Glucagon (Glucagen) 1 mg Q15M PRN IM DECREASED GLUCOSE; Start 08/17/18 at 10:30 Glucose (Glutose) 15 gm Q15M PRN BUCCAL DECREASED GLUCOSE; Start 08/17/18 at 10:30 Hydromorphone HCl (Dilaudid) 2 mg Q3 PRN IV SEVERE PAIN LEVEL 7-10 Last administered on 08/23/18 10:14; Admin Dose 2 MG; Start 08/17/18 at 14:30 Pantoprazole (Protonix Iv) 40 mg BID@06,18 IV Last administered on 08/23/18 06:50; Admin Dose 40 MG; Start 08/18/18 at 18:00 Lorazepam (Ativan) 1 mg Q6H PRN IV Anxiety Last administered on 08/22/18at 21:50; Admin Dose 1 MG; Start 08/18/18 at 14:30 Zolpidem Tartrate (Ambien) 10 mg QHS PRN PO INSOMNIA Last administered on 08/23/18 02:10; Admin Dose 10 MG; Start 08/20/18 at 11:30 Phenol (Cepastat Lozenge) 1 lozenge Q1H PRN MT THROAT PAIN Last administered on 08/23/18 10:22; Admin Dose 1 LOZENGE; Start 08/21/18 at 11:00 Nitrofurantoin Macrocrystals (Macrobid) 100 mg BID PO Last administered on 08/23/18 08:35; Admin Dose 100 MG; Start 08/22/18 at 15:00; Stop 08/27/18 at 15:00 SULEMA WRIGHT Aug 23, 2018 11:58 am
[2018-08-23] MEDS: LORAZEPAM 2 MG INJ IV PRN (16:09)
--- NOTE | 2018-08-23 20:01 | PN ---
Date/Time of Note Date/Time of Note DATE: 08/23/18 TIME: 19:58 Assessment/Plan VTE Prophylaxis Risk score (from [facility])>0 risk: 8 SCD applied (from [facility]): No SCD contraindicated: low risk/ambulating Pharmacological prophylaxis: NA/contraindicated Pharm contraindication: bleeding Lines/Catheters IV Catheter Type (from [facility]): PICC Line Central line still needed: Yes Urinary Cath still in place: No Assessment/Plan Hospital Course A/P 1. Hemoptysis; for bronch 2. H/o HL '08- chemo/ xrt; repeat chemo [facility]. Sp BmBx 3. Ho PE/ Dvt, ivc filter 4. resolved Diarrhea/ giardia; Rxed 5. H//o c diff 6. H/o thyroid nodule? S: feels ok; still bleeding. no dyspnea/ fever O: vss PE no pallor/ jvd reg s1s2 no mrg ctab bs+ nd nt no r r g no edema or petechiae Result Diagram: 08/23/18 0511 08/23/18 0511 Results 24hrs Laboratory Tests Test 08/23/18 05:11 08/23/18 05:12 White Blood Count 4.4 L Red Blood Count 3.95 L Hemoglobin 9.1 L Hematocrit 29.3 L Mean Corpuscular Volume 74.2 L Mean Corpuscular Hemoglobin 23.0 L Mean Corpuscular Hemoglobin Concent 31.1 L Red Cell Distribution Width 15.8 H Platelet Count 259 Mean Platelet Volume 10.6 H Immature Granulocytes % 0.900 H Neutrophils % 54.3 Lymphocytes % 29.3 Monocytes % 10.5 Eosinophils % 4.1 Basophils % 0.9 Nucleated Red Blood Cells % 0.0 Immature Granulocytes # 0.040 H Neutrophils # 2.4 Lymphocytes # 1.3 Monocytes # 0.5 Eosinophils # 0.2 Basophils # 0.0 Nucleated Red Blood Cells # 0.0 Prothrombin Time 12.8 Prothrombin Time Ratio 1.0 INR International Normalized Ratio 0.95 Activated Partial Thromboplast Time 29.0 Sodium Level 143 Potassium Level 4.0 Chloride Level 100 Carbon Dioxide Level 29 Anion Gap 14 H Blood Urea Nitrogen 13 Creatinine 0.54 Est Glomerular Filtrat Rate mL/min > 60 Glucose Level 86 # Calcium Level 9.2 Phosphorus Level 6.0 H Magnesium Level 1.8 Exam/Review of Systems Exam Vitals Vital Signs Date Temp Pulse Resp B/P (MAP) Pulse Ox O2 O2 Flow FiO2 Time Delivery Rate 08/23/18 72 16:01 08/23/18 98.4 16 137/77 96 Room Air 15:34 (97) 08/22/18 21 08:29 08/20/18 2.0 08:20 Intake and Output 08/22/18 08/22/18 08/23/18 1414:59 22:59 06:59 IntakeIntake Total 1500 ml BalanceBalance 1500 ml Results Results 24hrs Laboratory Tests Test 08/23/18 05:11 08/23/18 05:12 White Blood Count 4.4 L Red Blood Count 3.95 L Hemoglobin 9.1 L Hematocrit 29.3 L Mean Corpuscular Volume 74.2 L Mean Corpuscular Hemoglobin 23.0 L Mean Corpuscular Hemoglobin Concent 31.1 L Red Cell Distribution Width 15.8 H Platelet Count 259 Mean Platelet Volume 10.6 H Immature Granulocytes % 0.900 H Neutrophils % 54.3 Lymphocytes % 29.3 Monocytes % 10.5 Eosinophils % 4.1 Basophils % 0.9 Nucleated Red Blood Cells % 0.0 Immature Granulocytes # 0.040 H Neutrophils # 2.4 Lymphocytes # 1.3 Monocytes # 0.5 Eosinophils # 0.2 Basophils # 0.0 Nucleated Red Blood Cells # 0.0 Prothrombin Time 12.8 Prothrombin Time Ratio 1.0 INR International Normalized Ratio 0.95 Activated Partial Thromboplast Time 29.0 Sodium Level 143 Potassium Level 4.0 Chloride Level 100 Carbon Dioxide Level 29 Anion Gap 14 H Blood Urea Nitrogen 13 Creatinine 0.54 Est Glomerular Filtrat Rate mL/min > 60 Glucose Level 86 # Calcium Level 9.2 Phosphorus Level 6.0 H Magnesium Level 1.8 Medications Medication Current Medications IV Flush (NS 3 ml) 3 ml PER PROTOCOL IV ; Start 08/13/18 at 20:00 Ondansetron HCl (Zofran Inj) 4 mg Q6H PRN IV NAUSEA AND/OR VOMITING Last administered on 08/15/18at 12:04; Admin Dose 4 MG; Start 08/13/18 at 20:00 Duloxetine HCl (Cymbalta) 60 mg DAILY PO Last administered on 08/23/18at 08:35; Admin Dose 60 MG; Start 08/14/18 at 09:00 Levothyroxine Sodium (Synthroid) 50 mcg BEFORE BREAKFAST PO Last administered on 08/22/18at 05:23; Admin Dose 50 MCG; Start 08/15/18 at 07:00 Alteplase, Recombinant (Cathflo (Activase)) 2 mg MAY REPEAT X1 PRN CATHETER IF CATHETER REMAINS OCCULUDED Last administered on 08/15/18at 07:02; Admin Dose 2 MG; Start 08/15/18 at 06:00 Cholecalciferol (Vitamin D) 2,000 unit DAILY PO Last administered on 08/23/18at 08:35; Admin Dose 2,000 UNIT; Start 08/17/18 at 09:00 Zinc Sulfate (Zinc Sulfate) 220 mg DAILY PO Last administered on 08/23/18at 08:35; Admin Dose 220 MG; Start 08/17/18 at 09:00 Diphenhydramine HCl (Benadryl) 25 mg Q6H PRN IV ITCHING Last administered on 08/23/18at 19:53; Admin Dose 25 MG; Start 08/16/18 at 14:00 Eye Lubricant (Artificial Tears Oph) 1 drop Q6H PRN BOTH EYES DRY EYES Last administered on 08/19/18at 00:00; Admin Dose 1 DROP; Start 08/16/18 at 23:30 Methylnaltrexone [place] (Relistor) 12 mg Q48H SC Last administered on 08/23/18at 08:36; Admin Dose 12 MG; Start 08/17/18 at 09:30 Miscellaneous Information 1 ea NOTE XX ; Start 08/17/18 at 10:30 Glucose (Glutose) 15 gm Q15M PRN PO DECREASED GLUCOSE; Start 08/17/18 at 10:30 Glucose (Glutose) 22.5 gm Q15M PRN PO DECREASED GLUCOSE; Start 08/17/18 at 10:30 Dextrose (D50w Syringe) 25 ml Q15M PRN IV DECREASED GLUCOSE; Start 08/17/18 at 10:30 Dextrose (D50w Syringe) 50 ml Q15M PRN IV DECREASED GLUCOSE; Start 08/17/18 at 10:30 Glucagon (Glucagen) 1 mg Q15M PRN IM DECREASED GLUCOSE; Start 08/17/18 at 10:30 Glucose (Glutose) 15 gm Q15M PRN BUCCAL DECREASED GLUCOSE; Start 08/17/18 at 10:30 Hydromorphone HCl (Dilaudid) 2 mg Q3 PRN IV SEVERE PAIN LEVEL 7-10 Last administered on 08/23/18 19:52; Admin Dose 2 MG; Start 08/17/18 at 14:30 Pantoprazole (Protonix Iv) 40 mg BID@06,18 IV Last administered on 08/23/18 17:56; Admin Dose 40 MG; Start 08/18/18 at 18:00 Lorazepam (Ativan) 1 mg Q6H PRN IV Anxiety Last administered on 08/23/18 16:09; Admin Dose 1 MG; Start 08/18/18 at 14:30 Zolpidem Tartrate (Ambien) 10 mg QHS PRN PO INSOMNIA Last administered on 08/23/18 02:10; Admin Dose 10 MG; Start 08/20/18 at 11:30 Phenol (Cepastat Lozenge) 1 lozenge Q1H PRN MT THROAT PAIN Last administered on 08/23/18at 10:22; Admin Dose 1 LOZENGE; Start 08/21/18 at 11:00 Nitrofurantoin Macrocrystals (Macrobid) 100 mg BID PO Last administered on 08/23/18 08:35; Admin Dose 100 MG; Start 08/22/18 at 15:00; Stop 08/27/18 at 15:00 LEON CORONA MD Aug 23, 2018 20:01
[2018-08-24] VITALS (33 sets, daily range): BP systolic 94–144; BP diastolic 41–73; PULSE 60–100; RESP 12–26
[2018-08-24] MEDS: HYDROmorphONE 2 MG/ML SYG IV PRN ×6 (02:25→21:32)
[2018-08-24] MEDS: DIPHENHYDRAMINE 50 MG INJ IV PRN ×3 (02:25→21:31)
[2018-08-24] MEDS: PANTOPRAZOLE 40 MG INJ IV SCH ×2 (05:54→17:18)
[2018-08-24] MEDS ORDERED: DESFLURANE 15 MIN ONE (07:00)
[2018-08-24] MEDS: LEVOTHYROXINE 50 MCG TAB PO SCH (07:00)
[2018-08-24] MEDS: DULOXETINE 30 MG CAP DR PO SCH (09:00)
[2018-08-24] MEDS: NITROFURANTOIN (SR) 100 MG CAP PO SCH (09:00)
[2018-08-24] MEDS: ZINC SULFATE 220 MG CAP PO SCH (09:00)
[2018-08-24] MEDS: CHOLECALCIFEROL 2,000 UNIT CAP PO SCH (09:00)
--- NOTE | 2018-08-24 09:38 | CONS ---
Assessment/Plan Assessment/Plan Assessment/Plan (Daily) Assessment and recommendations; 1. Patient admitted for recurrent hemoptysis with unknown etiology. Status post extensive workup at another facility including bronchoscopy which apparently was unremarkable. Patient having daily bouts of hemoptysis consisting of fresh blood. 2. Essentially negative CT imaging of the chest with contrast. 3. Prior history of DVT and PE. 4. Multiple millimeter nodule seen on CT imaging of the chest with clinical stability. 5. Questionable history of lymphoma. Continue current supportive care. Patient scheduled for bronchoscopy at 11 AM today. Consultation Date/Type/Reason Admit Date/Time Aug 13, 2018 at 17:22 Initial Consult Date 08/19/18 Type of Consult Pulmonary Pulmonary consult requested for evaluation of episode of hemoptysis. Patient is a very pleasant 52-year-old lady who came into the hospital 6 days ago with complaints of abdominal discomfort and diarrhea. Patient has been diagnosed with C. difficile colitis. Patient feeling much better denies any shortness of breath but according to her she coughed up blood this morning small amount without any prior episodes. Patient has been diagnosed with lymphoma with lung involvement recently. Awaiting resumption of chemotherapy. She does have a history of prior lymphoma back in 2007. Patient denies any weight loss. Any chest pain, fever, cough, sputum production. Denies any wheezing. Denies any abdominal pain. Complains of diarrhea. Denies any blood in stool. Past medical history; 1. Status post treatment for lymphoma in 2007. With apparent recurrence involving the lungs. 2. C. difficile colitis on current admission. 3. History of bilateral lower extremity DVT. Status post Green filter place ment in the past. 4. History of thyroid cancer. 5. History of hypothyroidism. Medications; reviewed. Allergies; as outlined above. Social history; patient has been a lifelong non-smoker. Family history; noncontributory. Patient is . No show any malignancy. Occupational history; patient is on disability. Review of systems; denies any headache, seizures, sinus symptoms. Any epistaxis. Denies any chest pain, wheezing, shortness breath, cough. Patient had scant about of hemoptysis early this morning. Denies any fever, chills. Any abdominal pain. Complains of diarrhea. Denies any melena or hematochezia. Any orthopnea. Any weight loss. Any skin changes or any arthritis symptoms. General exam; young female, awake alert, currently no distress. Laying comfortably in bed. Requesting Provider: SHAQUILLE HARRIS Date/Time of Note DATE: 08/24/18 TIME: 09:36 24 HR Interval Summary Free Text/Dictation Patient's condition is stable overall. Still having hemoptysis off and on. Denies any fever, chest pain, wheezing. General exam; young female, awake alert, currently in no distress. Exam/Review of Systems Exam Vitals Vital Signs Date Temp Pulse Resp B/P (MAP) Pulse Ox O2 O2 Flow FiO2 Time Delivery Rate 08/24/18 64 08:53 08/24/18 97.4 18 124/60 99 07:20 (81) 08/23/18 Room Air 15:34 08/22/18 21 08:29 08/20/18 2.0 08:20 Intake and Output 08/23/18 08/23/18 08/24/18 1515:00 23:00 07:00 IntakeIntake Total 1000 ml 1600 ml BalanceBalance 1000 ml 1600 ml Exam H EENT exam; supple neck, no JVD. No lymphadenopathy. Midline trachea. No th yromegaly. Patient is edentulous. Pharynx is clear. Chest exam; clear to auscultation. S1-S2 audible, no murmurs. Regular rhythm. Abdomen exam; soft, nontender. No organomegaly. Bowel sounds audible. Extremity exam; no edema clubbing. Pulses 1+. ASSET MANAGEMENT ANALYST exam; patient has no focal motor deficit. Results Result Diagram: 08/23/1851008/23/18 0511 Medications Medication Current Medications IV Flush (NS 3 ml) 3 ml PER PROTOCOL IV ; Start 08/13/18 at 20:00 Ondansetron HCl (Zofran Inj) 4 mg Q6H PRN IV NAUSEA AND/OR VOMITING Last administered on 08/15/18at 12:04; Admin Dose 4 MG; Start 08/13/18 at 20:00 Duloxetine HCl (Cymbalta) 60 mg DAILY PO Last administered on 08/23/18at 08:35; Admin Dose 60 MG; Start 08/14/18 at 09:00 Levothyroxine Sodium (Synthroid) 50 mcg BEFORE BREAKFAST PO Last administered on 08/22/18at 05:23; Admin Dose 50 MCG; Start 08/15/18 at 07:00 Alteplase, Recombinant (Cathflo (Activase)) 2 mg MAY REPEAT X1 PRN CATHETER IF CATHETER REMAINS OCCULUDED Last administered on 08/15/18at 07:02; Admin Dose 2 MG ; Start 08/15/18 at 06:00 Cholecalciferol (Vitamin D) 2,000 unit DAILY PO Last administered on 08/23/18at 08:35; Admin Dose 2,000 UNIT; Start 08/17/18 at 09:00 Zinc Sulfate (Zinc Sulfate) 220 mg DAILY PO Last administered on 08/23/18at 08:35; Admin Dose 220 MG; Start 08/17/18 at 09:00 Diphenhydramine HCl (Benadryl) 25 mg Q6H PRN IV ITCHING Last administered on 08/24/18at 09:02; Admin Dose 25 MG; Start 08/16/18 at 14:00 Eye Lubricant (Artificial Tears Oph) 1 drop Q6H PRN BOTH EYES DRY EYES Last administered on 08/19/18at 00:00; Admin Dose 1 DROP; Start 08/16/18 at 23:30 Methylnaltrexone [place] (Relistor) 12 mg Q48H SC Last administered on 08/23/18at 08:36; Admin Dose 12 MG; Start 08/17/18 at 09:30 Miscellaneous Information 1 ea NOTE XX ; Start 08/17/18 at 10:30 Glucose (Glutose) 15 gm Q15M PRN PO DECREASED GLUCOSE; Start 08/17/18 at 10:30 Glucose (Glutose) 22.5 gm Q15M PRN PO DECREASED GLUCOSE; Start 08/17/18 at 10:30 Dextrose (D50w Syringe) 25 ml Q15M PRN IV DECREASED GLUCOSE; Start 08/17/18 at 10:30 Dextrose (D50w Syringe) 50 ml Q15M PRN IV DECREASED GLUCOSE; Start 08/17/18 at 10:30 Glucagon (Glucagen) 1 mg Q15M PRN IM DECREASED GLUCOSE; Start 08/17/18 at 10:30 Glucose (Glutose) 15 gm Q15M PRN BUCCAL DECREASED GLUCOSE; Start 08/17/18 at 10:30 Hydromorphone HCl (Dilaudid) 2 mg Q3 PRN IV SEVERE PAIN LEVEL 7-10 Last administered on 08/24/18at 09:03; Admin Dose 2 MG; Start 08/17/18 at 14:30 Pantoprazole (Protonix Iv) 40 mg BID@06,18 IV Last administered on 08/24/18at 05:54; Admin Dose 40 MG; Start 08/18/18 at 18:00 Lorazepam (Ativan) 1 mg Q6H PRN IV Anxiety Last administered on 08/23/18at 16:09; Admin Dose 1 MG; Start 08/18/18 at 14:30 Zolpidem Tartrate (Ambien) 10 mg QHS PRN PO INSOMNIA Last administered on 08/23/18at 21:05; Admin Dose 10 MG; Start 08/20/18 at 11:30 Phenol (Cepastat Lozenge) 1 lozenge Q1H PRN MT THROAT PAIN Last administered on 08/23/18at 10:22; Admin Dose 1 LOZENGE; Start 08/21/18 at 11:00 Nitrofurantoin Macrocrystals (Macrobid) 100 mg BID PO Last administered on 08/23/18at 21:05; Admin Dose 100 MG; Start 08/22/18 at 15:00; Stop 08/27/18 at 1 5:00 ISABELLA EPSTEIN Aug 24, 2018 09:38
[2018-08-24] MEDS ORDERED: LABETALOL HCL 20MG INJ IV PRN (11:00)
[2018-08-24] MEDS ORDERED: ONDANSETRON 4 MG INJ IV PRN (11:00)
[2018-08-24] MEDS ORDERED: FENTAnyl 50 MCG/ML VIAL IV PRN ×3 (11:00)
[2018-08-24] MEDS ORDERED: MIDAZOLAM 1 MG/ML 2 ML INJ IV PRN (11:00)
[2018-08-24] MEDS ORDERED: HYDROmorphONE 1 MG/5 ML IV SYRINGE IV PRN ×3 (11:00)
[2018-08-24] MEDS ORDERED: MEPERIDINE 25 MG INJ IV PRN (11:00)
[2018-08-24] MEDS ORDERED: ALBUTEROL 0.083% (NEB) 2.5 MG/3 ML AMP HHN PRN (11:00)
[2018-08-24] MEDS ORDERED: TRIMETHOBENZAMIDE 100 MG/ML VIAL IM PRN (11:00)
[2018-08-24] MEDS ORDERED: EPHEDrine SULFATE 50 MG/5 ML SYG IV PRN (11:00)
[2018-08-24] MEDS ORDERED: IPRATROPIUM (NEB) 0.5 MG/2.5 ML AMP HHN PRN (11:00)
[2018-08-24] MEDS ORDERED: DIPHENHYDRAMINE 50 MG INJ IV PRN (11:00)
[2018-08-24] MEDS ORDERED: LIDOCAINE 2% (MDV) 20 ML INJ ONE (11:00)
[2018-08-24] MEDS ORDERED: hydrALAzine 20 MG INJ IV PRN (11:00)
--- NOTE | 2018-08-24 11:03 | PREAC ---
Date/Time of Note Date/Time of Note DATE: 08/24/18 TIME: 11:01 Anesthesia Eval and Record Evaluation Time Pre-Procedure Interview DATE: 08/24/18 TIME: 11:01 Age 52 Sex female NPO: 8 hrs Preoperative diagnosis hemoptysis Planned procedure bronchoscopy Past Medical History Past Medical History: Includes Endo: Hypothyroid Heme: Other (hodgkin lymphoma) Psych: Depression Surgery & Anesthesia Issues No known issue Meds Anticoagulation: No Beta Mirna within 24 hr: No Reason Beta Mirna not given: Pt. not on B-Mirna Reported Medications Zolpidem Tartrate* (Ambien*) 5 Mg Tablet, 5 MG PO QHS PRN for INSOMNIA, #30 TAB 08/13/18 Cholecalciferol* (Vitamin D3*) 1,000 Unit Tablet, 1000 UNIT PO DAILY, TAB 08/13/18 Cholecalciferol* (Vitamin D3*) 1,000 Unit Tablet, 2000 UNIT PO DAILY, TAB 08/13/18 Potassium Chloride* (Potassium Chloride*) 20 Meq Tablet.er, 20 MEQ PO DAILY, TAB.SA 08/13/18 Duloxetine Hcl* (Cymbalta*) 60 Mg Capsule.dr, 60 MG PO DAILY, CAP 08/13/18 Oxycodone Hcl* (Oxycontin*) 15 Mg Tab.sr.12h, 15 MG PO Q12, TAB 08/13/18 Hydromorphone Hcl* (Dilaudid*) 8 Mg Tablet, 8 MG PO Q6H PRN for PAIN, TAB 08/13/18 Pantoprazole* (Protonix*) 40 Mg Tablet.dr, 40 MG PO AC BREAKFAST, TAB 08/13/18 Levothyroxine Sodium* (Levothyroxine Sodium*) 25 Mcg Tablet, 25 MCG PO BEFORE BREAKFAST, #30 TAB 08/13/18 Current Medications IV Flush (NS 3 ml) 3 ml PER PROTOCOL IV ; Start 08/13/18 at 20:00 Ondansetron HCl (Zofran Inj) 4 mg Q6H PRN IV NAUSEA AND/OR VOMITING Last administered on 08/15/18at 12:04; Admin Dose 4 MG; Start 08/13/18 at 20:00 Duloxetine HCl (Cymbalta) 60 mg DAILY PO Last administered on 08/23/18at 08:35; Admin Dose 60 MG; Start 08/14/18 at 09:00 Levothyroxine Sodium (Synthroid) 50 mcg BEFORE BREAKFAST PO Last administered on 08/22/18at 05:23; Admin Dose 50 MCG; Start 08/15/18 at 07:00 Alteplase, Recombinant (Cathflo (Activase)) 2 mg MAY REPEAT X1 PRN CATHETER IF CATHETER REMAINS OCCULUDED Last administered on 08/15/18at 07:02; Admin Dose 2 MG; Start 08/15/18 at 06:00 Cholecalciferol (Vitamin D) 2,000 unit DAILY PO Last administered on 08/23/18at 08:35; Admin Dose 2,000 UNIT; Start 08/17/18 at 09:00 Zinc Sulfate (Zinc Sulfate) 220 mg DAILY PO Last administered on 08/23/18at 08:35; Admin Dose 220 MG; Start 08/17/18 at 09:00 Diphenhydramine HCl (Benadryl) 25 mg Q6H PRN IV ITCHING Last administered on 08/24/18at 09:02; Admin Dose 25 MG; Start 08/16/18 at 14:00 Eye Lubricant (Artificial Tears Oph) 1 drop Q6H PRN BOTH EYES DRY EYES Last administered on 08/19/18at 00:00; Admin Dose 1 DROP; Start 08/16/18 at 23:30 Methylnaltrexone [place] (Relistor) 12 mg Q48H SC Last administered on 08/23/18at 08:36; Admin Dose 12 MG; Start 08/17/18 at 09:30 Miscellaneous Information 1 ea NOTE XX ; Start 08/17/18 at 10:30 Glucose (Glutose) 15 gm Q15M PRN PO DECREASED GLUCOSE; Start 08/17/18 at 10:30 Glucose (Glutose) 22.5 gm Q15M PRN PO DECREASED GLUCOSE; Start 08/17/18 at 10:30 Dextrose (D50w Syringe) 25 ml Q15M PRN IV DECREASED GLUCOSE; Start 08/17/18 at 10:30 Dextrose (D50w Syringe) 50 ml Q15M PRN IV DECREASED GLUCOSE; Start 08/17/18 at 10:30 Glucagon (Glucagen) 1 mg Q15M PRN IM DECREASED GLUCOSE; Start 08/17/18 at 10:30 Glucose (Glutose) 15 gm Q15M PRN BUCCAL DECREASED GLUCOSE; Start 08/17/18 at 10:30 Hydromorphone HCl (Dilaudid) 2 mg Q3 PRN IV SEVERE PAIN LEVEL 7-10 Last administered on 08/24/18 09:03; Admin Dose 2 MG; Start 08/17/18 at 14:30 Pantoprazole (Protonix Iv) 40 mg BID@06,18 IV Last administered on 08/24/18at 05:54; Admin Dose 40 MG; Start 08/18/18 at 18:00 Lorazepam (Ativan) 1 mg Q6H PRN IV Anxiety Last administered on 08/23/18at 16:09; Admin Dose 1 MG; Start 08/18/18 at 14:30 Zolpidem Tartrate (Ambien) 10 mg QHS PRN PO INSOMNIA Last administered on 08/23/18at 21:05; Admin Dose 10 MG; Start 08/20/18 at 11:30 Phenol (Cepastat Lozenge) 1 lozenge Q1H PRN MT THROAT PAIN Last administered on 08/23/18 10:22; Admin Dose 1 LOZENGE; Start 08/21/18 at 11:00 Nitrofurantoin Macrocrystals (Macrobid) 100 mg BID PO Last administered on 08/23/18 21:05; Admin Dose 100 MG; Start 08/22/18 at 15:00; Stop 08/27/18 at 15:00 Meds reviewed: Yes Allergies Coded Allergies: Iodinated Contrast- Oral and IV Dye (Verified Allergy, Severe, 08/20/18) Iodine and Iodide Containing Produc (Verified Allergy, Unknown, 08/13/18) Penicillins (Verified Allergy, Unknown, 08/13/18) ketorolac (Verified Allergy, Unknown, 08/13/18) morphine (Verified Allergy, Unknown, 08/13/18) vancomycin (Verified Allergy, Unknown, 08/13/18) Allergies Reviewed: Yes Labs/Studies Labs Reviewed: Reviewed by anesthesiologist Result Diagram: 08/23/1851008/23/18510 test: N/A Studies: ECG (lt axis, sr), CXR (Tiny nodular opacities throughout the lungs are not well seen on the plain film radiograph.) Pre-procedure Exam Last vitals Vital Signs Date Temp Pulse Resp B/P (MAP) Pulse Ox O2 O2 Flow FiO2 Time Delivery Rate 1/29/19 64 08:53 08/24/18 97.4 18 124/60 99 07:20 (81) 08/23/18 Room Air 15:34 08/22/18 21 08:29 08/20/18 2.0 08:20 Airway: Adequate mouth opening, Adequate thyromental dist Mallampati: Mallampati II Teeth: Normal Lung: Normal Heart: Normal ASA Physical Status ASA physical status: 2 Emergency: None Planned Anesthetic General/MAC: ETT Planned Pain Management Parenteral pain med Pre-operative Attestations Prior to commencing anesthesia and surgery, the patient was re-evaluated, there was verification of: *The patient's identity *The results of appropriate recent lab work and preoperative vital signs *The above evaluation not changing prior to induction *Anesthetic plan, risk benefits, alternative and complications discussed with patient/family; questions answered; patient/family understands, accepts and wishes to proceed. Ricky Willis M.D. Aug 24, 2018 11:03
[2018-08-24] MEDS ORDERED: PROPOFOL 20 ML ONE (11:18)
[2018-08-24] MEDS ORDERED: ROCURONIUM 50 MG INJ ONE (11:18)
[2018-08-24] MEDS ORDERED: CEFAZOLIN 1 GM INJ ONE (11:18)
[2018-08-24] MEDS ORDERED: NEOSTIGMINE 3 MG/3 ML SYRINGE ONE (11:18)
[2018-08-24] MEDS ORDERED: GLYCOPYRROLATE 0.4 MG INJ ONE (11:18)
[2018-08-24] MEDS ORDERED: FENTAnyl 50 MCG/ML VIAL ONE (11:19)
[2018-08-24] MEDS ORDERED: ONDANSETRON 4 MG INJ ONE (11:19)
[2018-08-24] MEDS ORDERED: MIDAZOLAM 1 MG/ML 2 ML INJ ONE (11:19)
[2018-08-24] MEDS ORDERED: DEXAMETHASONE 4 MG/ML 5 ML INJ ONE (11:19)
--- NOTE | 2018-08-24 11:36 | OPR ---
Date/Time of Note Date/Time of Note DATE: 08/24/18 TIME: 11:34 Operative Report Procedure Date: Aug 24, 2018 Preoperative Diagnosis Recurrent hemoptysis Postoperative Diagnosis Normal bronchoscopy Operation/Procedure Performed Bronchoscopy Surgeon see signature line Fine Arts Packer Respiratory therapist and OR nurse Second Fine Arts Packer: Luis E Anesthesia Type: general Estimated Blood Loss: none Transfusion none Specimen None Grafts/Implants none Complications none Procedure Description Patient was brought into the OR. Informed consent was obtained earlier. Patient was given general anesthesia by anesthesiologist. Prior to intubation bronchoscope was traversed through endotracheal tube for upper airway evaluation. Pharynx was completely normal vocal cords motor. Normal proximal trachea was completely normal. After intubation distal trachea was evaluated which was also completely normal reggie was sharp and well defined. The scope was introduced into the right mainstem bronchus with evaluation of the right upper lobe, bronchus intermedius, superior segment of the lower lobe, middle, and lower lobes were completely normal without any evidence of any endobronchial obstruction or any active bleeding. The scope was then introduced into the left mainstem bronchus with evaluation of the left upper lobe, lingula, superior segment of the lower lobe as well as the role of the ulcer were completely normal without any evidence of active bleeding or any signs of prior hemorrhage. The scope was then withdrawn. The procedure was well tolerated with stable O2 saturation, vital signs and airway pressures. Start time was 11:25 AM. Finish time was 11:30 AM. ISABELLA EPSTEIN Aug 24, 2018 11:36
--- NOTE | 2018-08-24 12:53 | CONS ---
Assessment/Plan Assessment/Plan Assessment/Plan (Daily) #h/o Lymphoma -thus far there are no lesions that can be biopsied and it does not appear she has active cancer #Anemia -Hgb Electrophoresis - confirms B- thalassemia trait with Anemia -pt has had microcytic anemia requiring transfusions for years -will order a bone marrow bx at this time- pending -anemia panel-anemia #Hemoptysis -s/p unremarkable bronchoscopy at [facility] -s/p unremarkable flexible laryngoscopy 02/05/17 at [facility] -CT Chest pulmonary nodules are noted but are too small to biopsy --ID workup pending for pulmonary nodules -08/21/18-CT Chest Angio- no new changes. will do Follow-up CT in X 3-4 months to insure stability as recommended - 08/24/18- Repeat bronchoscopy today- fu #pancolitis. -Colonoscopy on 08/17/2018 showed patchy colitis. bx was negative -Stool positive for Giardia- pt on vancomycin and flagyl Patient seen in collaboration with Dr Brown. Dw Staff Consultation Date/Type/Reason Admit Date/Time Aug 13, 2018 at 5:22 pm Initial Consult Date 08/19/18 Type of Consult ONCOLOGY Reason for Consultation Hx Lymphoma Requesting Provider: SHAQUILLE HARRIS Date/Time of Note DATE: 08/24/18 TIME: 12:51 24 HR Interval Summary Free Text/Dictation Off floor - gone for bronchoscopy no new events reported overnight Exam/Review of Systems Exam Vitals Vital Signs Date Temp Pulse Resp B/P (MAP) Pulse Ox O2 O2 Flow FiO2 Time Delivery Rate 08/24/18 98.9 11:47 08/24/18 64 08:53 08/24/18 18 124/60 99 07:20 (81) 08/23/18 Room Air 15:34 08/22/18 21 08:29 08/20/18 2.0 08:20 Intake and Output 08/23/18 08/23/18 08/24/18 1414:59 22:59 06:59 IntakeIntake Total 1000 ml 1600 ml BalanceBalance 1000 ml 1600 ml Results Result Diagram: 08/23/18 0511 08/23/18 0511 Medications Medication Current Medications IV Flush (NS 3 ml) 3 ml PER PROTOCOL IV ; Start 08/13/18 at 20:00 Ondansetron HCl (Zofran Inj) 4 mg Q6H PRN IV NAUSEA AND/OR VOMITING Last admi nistered on 08/15/18 12:04; Admin Dose 4 MG; Start 08/13/18 at 20:00 Duloxetine HCl (Cymbalta) 60 mg DAILY PO Last administered on 08/23/18 08:35; Admin Dose 60 MG; Start 08/14/18 at 09:00 Levothyroxine Sodium (Synthroid) 50 mcg BEFORE BREAKFAST PO Last administered on 08/22/18 05:23; Admin Dose 50 MCG; Start 08/15/18 at 07:00 Alteplase, Recombinant (Cathflo (Activase)) 2 mg MAY REPEAT X1 PRN CATHETER IF CATHETER REMAINS OCCULUDED Last administered on 08/15/18 07:02; Admin Dose 2 MG; Start 08/15/18 at 06:00 Cholecalciferol (Vitamin D) 2,000 unit DAILY PO Last administered on 08/23/18 08:35; Admin Dose 2,000 UNIT; Start 08/17/18 at 09:00 Zinc Sulfate (Zinc Sulfate) 220 mg DAILY PO Last administered on 08/23/18 08:35; Admin Dose 220 MG; Start 08/17/18 at 09:00 Diphenhydramine HCl (Benadryl) 25 mg Q6H PRN IV ITCHING Last administered on 08/24/18 09:02; Admin Dose 25 MG; Start 08/16/18 at 14:00 Eye Lubricant (Artificial Tears Oph) 1 drop Q6H PRN BOTH EYES DRY EYES Last administered on 08/19/18 00:00; Admin Dose 1 DROP; Start 08/16/18 at 23:30 Methylnaltrexone [place] (Relistor) 12 mg Q48H SC Last administered on 08/23/18 08:36; Admin Dose 12 MG; Start 08/17/18 at 09:30 Miscellaneous Information 1 ea NOTE XX ; Start 08/17/18 at 10:30 Glucose (Glutose) 15 gm Q15M PRN PO DECREASED GLUCOSE; Start 08/17/18 at 10:30 Glucose (Glutose) 22.5 gm Q15M PRN PO DECREASED GLUCOSE; Start 08/17/18 at 10:30 Dextrose (D50w Syringe) 25 ml Q15M PRN IV DECREASED GLUCOSE; Start 08/17/18 at 10:30 Dextrose (D50w Syringe) 50 ml Q15M PRN IV DECREASED GLUCOSE; Start 08/17/18 at 10:30 Glucagon (Glucagen) 1 mg Q15M PRN IM DECREASED GLUCOSE; Start 08/17/18 at 10:30 Glucose (Glutose) 15 gm Q15M PRN BUCCAL DECREASED GLUCOSE; Start 08/17/18 at 10:30 Hydromorphone HCl (Dilaudid) 2 mg Q3 PRN IV SEVERE PAIN LEVEL 7-10 Last administered on 08/24/18at 09:03; Admin Dose 2 MG; Start 08/17/18 at 14:30 Pantoprazole (Protonix Iv) 40 mg BID@06,18 IV Last administered on 08/24/18at 05:54; Admin Dose 40 MG; Start 08/18/18 at 18:00 Lorazepam (Ativan) 1 mg Q6H PRN IV Anxiety Last administered on 08/23/18 16:09; Admin Dose 1 MG; Start 08/18/18 at 14:30 Zolpidem Tartrate (Ambien) 10 mg QHS PRN PO INSOMNIA Last administered on 08/23/18at 21:05; Admin Dose 10 MG; Start 08/20/18 at 11:30 Phenol (Cepastat Lozenge) 1 lozenge Q1H PRN MT THROAT PAIN Last administered on 08/23/18at 10:22; Admin Dose 1 LOZENGE; Start 08/21/18 at 11:00 Nitrofurantoin Macrocrystals (Macrobid) 100 mg BID PO Last administered on 08/23/18at 21:05; Admin Dose 100 MG; Start 08/22/18 at 15:00; Stop 08/27/18 at 15:00 Hydromorphone HCl (Dilaudid) 0.2 mg PACU PRN IV MILD PAIN 1-3; Start 08/24/18 at 11:00; Stop 08/24/18 at 16:30 Hydromorphone HCl (Dilaudid) 0.4 mg PACU PRN IV MOD PAIN 4-6 Last administered on 08/24/18at 12:10; Admin Dose 0.4 MG; Start 08/24/18 at 11:00; Stop 08/24/18 at 16:30 Hydromorphone HCl (Dilaudid) 0.6 mg PACU PRN IV SEVERE PAIN 7-10; Start 08/24/18 at 11:00; Stop 08/24/18 at 16:30 Fentanyl (Sublimaze) 25 mcg PACU ORDER PRN IV MILD PAIN 1-3; Start 08/24/18 at 11:00; Stop 08/24/18 at 16:30 Fentanyl (Sublimaze) 50 mcg PACU ORDER PRN IV MOD PAIN 4-6 Last administered on 08/24/18at 12:09; Admin Dose 50 MCG; Start 08/24/18 at 11:00; Stop 08/24/18 at 16:30 Fentanyl (Sublimaze) 75 mcg PACU ORDER PRN IV SEVERE PAIN 7-10; Start 08/24/18 at 11:00; Stop 08/24/18 at 16:30 Ondansetron HCl (Zofran Inj) 4 mg PACU ORDER PRN IV NAUSEA/VOMITING; Start 08/24/18 at 11:00; Stop 08/24/18 at 16:30 Trimethobenzamide HCl (Tigan) 200 mg PACU ORDER PRN IM NAUSEA/VOMITING; Start 08/24/18 at 11:00; Stop 08/24/18 at 16:30 Labetalol HCl (Labetalol) 5 mg PACU ORDER PRN IV HIGH BLOOD PRESSURE; Start 08/24/18 at 11:00; Stop 08/24/18 at 16:30 Hydralazine HCl (Apresoline) 5 mg PACU ORDER PRN IV HIGH BLOOD PRESSURE; Start 08/24/18 at 11:00; Stop 08/24/18 at 16:30 Ephedrine Sulfate 5 mg PACU ORDER PRN IV BLOOD PRESSURE SUPPORT; Start 08/24/18 at 11:00; Stop 08/24/18 at 16:30 Albuterol (Proventil 0.083% (Neb)) 2.5 mg PACU ORDER PRN HHN .WHEEZING; Start 08/24/18 at 11:00; Stop 08/24/18 at 16:30 Ipratropium [place] (Atrovent 0.02% (Neb)) 0.5 mg PACU ORDER PRN HHN .WHEEZING; Start 08/24/18 at 11:00; Stop 08/24/18 at 16:30 Meperidine HCl (Demerol) 25 mg PACU ORDER PRN IV .RIGORS; Start 08/24/18 at 11:00; Stop 08/24/18 at 16:30 Diphenhydramine HCl (Benadryl) 25 mg PACU ORDER PRN IV .PRURITUS; Start 08/24/18 at 11:00; Stop 08/24/18 at 16:30 Midazolam HCl (Versed) 0.5 mg PACU ORDER PRN IV .ANXIETY Last administered on 08/24/18at 12:25; Admin Dose 0.5 MG; Start 08/24/18 at 11:00; Stop 08/24/18 at 16:30 SULEMA WRIGHT Aug 24, 2018 12:53
--- NOTE | 2018-08-24 13:13 | PN ---
Date/Time of Note Date/Time of Note DATE: 08/24/18 TIME: 13:12 Assessment/Plan VTE Prophylaxis Risk score (from Ns)>0 risk: 8 SCD applied (from [facility] [place]): No SCD contraindicated: low risk/ambulating Pharmacological prophylaxis: NA/contraindicated Pharm contraindication: bleeding Lines/Catheters IV C[facility]ter Type (from [facility]): PICC Line Central line still needed: Yes Urinary Cath still in place: No Assessment/Plan Hospital Course A/P 1. Hemoptysis; for bronch 2. H/o HL '08- chemo/ xrt; repeat chemo [facility]. Sp BmBx 3. Ho PE/ Dvt, ivc filter 4. resolved Diarrhea/ giardia; Rxed 5. H//o c diff 6. H/o thyroid nodule? S: feels ok; still bleeding. no dyspnea/ fever 08/24: Events noted still having hemoptysis. O: vss PE -Deferred patient in the or Result Diagram: 08/23/18 0511 08/23/18 0511 Exam/Review of Systems Exam Vitals Vital Signs Date Temp Pulse Resp B/P (MAP) Pulse Ox O2 O2 Flow FiO2 Time Delivery Rate 08/24/18 62 14 144/65 94 Room Air 13:02 (91) 08/24/18 2.0 12:52 08/24/18 98.9 11:47 08/22/18 21 08:29 Intake and Output 08/23/18 08/23/18 08/24/18 1515:00 23:00 07:00 IntakeIntake Total 1000 ml 1600 ml BalanceBalance 1000 ml 1600 ml Medications Medication Current Medications IV Flush (NS 3 ml) 3 ml PER PROTOCOL IV ; Start 08/13/18 at 20:00 Ondansetron HCl (Zofran Inj) 4 mg Q6H PRN IV NAUSEA AND/OR VOMITING Last administered on 08/15/18at 12:04; Admin Dose 4 MG; Start 08/13/18 at 20:00 Duloxetine HCl (Cymbalta) 60 mg DAILY PO Last administered on 08/23/18at 08:35; Admin Dose 60 MG; Start 08/14/18 at 09:00 Levothyroxine Sodium (Synthroid) 50 mcg BEFORE BREAKFAST PO Last administered on 08/22/18at 05:23; Admin Dose 50 MCG; Start 08/15/18 at 07:00 Alteplase, Recombinant (Cathflo (Activase)) 2 mg MAY REPEAT X1 PRN CATHETER IF CATHETER REMAINS OCCULUDED Last administered on 08/15/18at 07:02; Admin Dose 2 MG; Start 08/15/18 at 06:00 Cholecalciferol (Vitamin D) 2,000 unit DAILY PO Last administered on 08/23/18 08:35; Admin Dose 2,000 UNIT; Start 08/17/18 at 09:00 Zinc Sulfate (Zinc Sulfate) 220 mg DAILY PO Last administered on 08/23/18 08:35; Admin Dose 220 MG; Start 08/17/18 at 09:00 Diphenhydramine HCl (Benadryl) 25 mg Q6H PRN IV ITCHING Last administered on 08/24/18at 09:02; Admin Dose 25 MG; Start 08/16/18 at 14:00 Eye Lubricant (Artificial Tears Oph) 1 drop Q6H PRN BOTH EYES DRY EYES Last administered on 08/19/18at 00:00; Admin Dose 1 DROP; Start 08/16/18 at 23:30 Methylnaltrexone [place] (Relistor) 12 mg Q48H SC Last administered on 08/23/18at 08:36; Admin Dose 12 MG; Start 08/17/18 at 09:30 Miscellaneous Information 1 ea NOTE XX ; Start 08/17/18 at 10:30 Glucose (Glutose) 15 gm Q15M PRN PO DECREASED GLUCOSE; Start 08/17/18 at 10:30 Glucose (Glutose) 22.5 gm Q15M PRN PO DECREASED GLUCOSE; Start 08/17/18 at 10:30 Dextrose (D50w Syringe) 25 ml Q15M PRN IV DECREASED GLUCOSE; Start 08/17/18 at 10:30 Dextrose (D50w Syringe) 50 ml Q15M PRN IV DECREASED GLUCOSE; Start 08/17/18 at 10:30 Glucagon (Glucagen) 1 mg Q15M PRN IM DECREASED GLUCOSE; Start 08/17/18 at 10:30 Glucose (Glutose) 15 gm Q15M PRN BUCCAL DECREASED GLUCOSE; Start 08/17/18 at 10:30 Hydromorphone HCl (Dilaudid) 2 mg Q3 PRN IV SEVERE PAIN LEVEL 7-10 Last administered on 08/24/18 09:03; Admin Dose 2 MG; Start 08/17/18 at 14:30 Pantoprazole (Protonix Iv) 40 mg BID@06,18 IV Last administered on 08/24/18at 0 5:54; Admin Dose 40 MG; Start 08/18/18 at 18:00 Lorazepam (Ativan) 1 mg Q6H PRN IV Anxiety Last administered on 08/23/18 16:09; Admin Dose 1 MG; Start 08/18/18 at 14:30 Zolpidem Tartrate (Ambien) 10 mg QHS PRN PO INSOMNIA Last administered on 08/23/18 21:05; Admin Dose 10 MG; Start 08/20/18 at 11:30 Phenol (Cepastat Lozenge) 1 lozenge Q1H PRN MT THROAT PAIN Last administered on 08/23/18 10:22; Admin Dose 1 LOZENGE; Start 08/21/18 at 11:00 Nitrofurantoin Macrocrystals (Macrobid) 100 mg BID PO Last administered on 08/23/18 21:05; Admin Dose 100 MG; Start 08/22/18 at 15:00; Stop 08/27/18 at 15:00 Hydromorphone HCl (Dilaudid) 0.2 mg PACU PRN IV MILD PAIN 1-3; Start 08/24/18 at 11:00; Stop 08/24/18 at 16:30 Hydromorphone HCl (Dilaudid) 0.4 mg PACU PRN IV MOD PAIN 4-6 Last administered on 08/24/18 12:10; Admin Dose 0.4 MG; Start 08/24/18 at 11:00; Stop 08/24/18 at 16:30 Hydromorphone HCl (Dilaudid) 0.6 mg PACU PRN IV SEVERE PAIN 7-10; Start 08/24/18 at 11:00; Stop 08/24/18 at 16:30 Fentanyl (Sublimaze) 25 mcg PACU ORDER PRN IV MILD PAIN 1-3; Start 08/24/18 at 11:00; Stop 08/24/18 at 16:30 Fentanyl (Sublimaze) 50 mcg PACU ORDER PRN IV MOD PAIN 4-6 Last administered on 08/24/18 12:09; Admin Dose 50 MCG; Start 08/24/18 at 11:00; Stop 08/24/18 at 16:30 Fentanyl (Sublimaze) 75 mcg PACU ORDER PRN IV SEVERE PAIN 7-10; Start 08/24/18 at 11:00; Stop 08/24/18 at 16:30 Ondansetron HCl (Zofran Inj) 4 mg PACU ORDER PRN IV NAUSEA/VOMITING; Start 08/24/18 at 11:00; Stop 08/24/18 at 16:30 Trimethobenzamide HCl (Tigan) 200 mg PACU ORDER PRN IM NAUSEA/VOMITING; Start 08/24/18 at 11:00; Stop 08/24/18 at 16:30 Labetalol HCl (Labetalol) 5 mg PACU ORDER PRN IV HIGH BLOOD PRESSURE; Start at 11:00; Stop 08/24/18 at 16:30 Hydralazine HCl (Apresoline) 5 mg PACU ORDER PRN IV HIGH BLOOD PRESSURE; Start 08/24/18 at 11:00; Stop 08/24/18 at 16:30 Ephedrine Sulfate 5 mg PACU ORDER PRN IV BLOOD PRESSURE SUPPORT; Start 08/24/18 at 11:00; Stop 08/24/18 at 16:30 Albuterol (Proventil 0.083% (Neb)) 2.5 mg PACU ORDER PRN HHN .WHEEZING; Start 08/24/18 at 11:00; Stop 08/24/18 at 16:30 Ipratropium [place] (Atrovent 0.02% (Neb)) 0.5 mg PACU ORDER PRN HHN .WHEEZING; Start 08/24/18 at 11:00; Stop 08/24/18 at 16:30 Meperidine HCl (Demerol) 25 mg PACU ORDER PRN IV .RIGORS; Start 08/24/18 at 11: 00; Stop 08/24/18 at 16:30 Diphenhydramine HCl (Benadryl) 25 mg PACU ORDER PRN IV .PRURITUS; Start 08/24/18 at 11:00; Stop 08/24/18 at 16:30 Midazolam HCl (Versed) 0.5 mg PACU ORDER PRN IV .ANXIETY Last administered on 08/24/18at 12:25; Admin Dose 0.5 MG; Start 08/24/18 at 11:00; Stop 08/24/18 at 16:30 LEON CORONA MD Aug 24, 2018 13:13
--- NOTE | 2018-08-24 14:43 | CONS ---
Assessment/Plan Assessment/Plan Hospital Course (Demo Recall) sepsis, bloodstream infection - H/o bacteremia due to enterococci - h/o fungemia pulm - Hemoptysis, recurrent. Pt reports negative PPD last month at [facility] and negative TB workup in February 2018 at [facility] - Numerous tiny lung nodules, increased in number from the chest CT dated May 22, 2018, with largest measuring 0.3 cm in the left apex GI - Delgado-colitis per CT - S/p sigmoidoscopy with biopsy 08/17/2018; path shows no e/o colitis or malignancy from transverse colon and rectum biopsies - S/p bloody diarrhea d/t Giardia; Pt took metronidazolel for Giardia (08/14/2018-08/21/2018). C. diff negative at [facility] - H/o recent C. diff ~04/2018 at [facility] - previously on Fidaxomicin at [facility] - H/o cholecystectomy heme/oncology - S/p CT guided bone marrow aspiration and biopsy 08/20/2018 - Microcytic anemia requiring PRBC d/t acute blood loss - H/o BUE and RLE DVT, s/p IVC filter in January 2018 - H/o Hodgkin lymphoma - H/o thyroid CA, s/p resection, chemo and XRT - +Family hx of cancer (father of stomach CA, mother of lymphoma, paternal uncle had breast CA and 12 yo daughter has h/o brain tumor s/p surgery and resulting blindness) , renal - h/o UTI due to ESBL+E. coli other conditions - Bilateral conjunctivitis - improving with Cipro eye drops - Hypothyroidism - HLD - OA - Depression/anxiety - H/o x2 - Allergy to PCN and vancomycin Recommendations: - pending results: coccidioidomycosis serology, aspergillus serology, bone marrow Bx to r/o MDS, and sputum fungal culture (in process) - for probable UTI, will try levofloxacin, d/c macrobid management d/w Pt and her RN Consultation Date/Type/Reason Admit Date/Time Aug 13, 2018 at 17:22 Initial Consult Date 08/19/18 Type of Consult ID Requesting Provider: SHAQUILLE HARRIS Date/Time of Note DATE: 08/24/18 TIME: 14:32 24 HR Interval Summary Constitutional: chills Detailed Summary Eyes: no complaints ENT: no complaints Respiratory: cough, sputum, other (hemoptysis) Cardiovascular: no complaints Gastrointestinal: no complaints Genitourinary: other ("burning" persists) Musculoskeletal: no complaints Skin: no complaints Exam/Review of Systems Exam Vitals Vital Signs Date Temp Pulse Resp B/P (MAP) Pulse Ox O2 O2 Flow FiO2 Time Delivery Rate 08/24/18 97.5 80 16 118/58 99 14:27 (78) 08/24/18 Room Air 13:27 08/24/18 2.0 12:52 08/22/18 21 08:29 Intake and Output 08/23/18 08/23/18 08/24/18 1515:00 23:00 07:00 IntakeIntake Total 1000 ml 1600 ml BalanceBalance 1000 ml 1600 ml Constitutional: frail, other (rigorous) Psych: no complaints, nl mood/affect Head: normocephalic, atraumatic Eyes: nl conjunctiva, nl lids, nl sclera ENMT: nl external ears & nose, nl nasal mucosa & septum, mucosa pink and moist Neck: other (not swollen) Respiratory: crackles/rales, diminished breath sounds Cardiovascular: regular rate and rhythm, nl pulses Gastrointestinal: soft, non-tender Musculoskeletal: nl extremities to inspection Extremities: No edema Neurological: lethargic Skin: No rash or lesions Results Result Diagram: 08/23/1851008/23/18510 Medications Medication Current Medications IV Flush (NS 3 ml) 3 ml PER PROTOCOL IV ; Start 08/13/18 at 20:00 Ondansetron HCl (Zofran Inj) 4 mg Q6H PRN IV NAUSEA AND/OR VOMITING Last administered on 08/15/18at 12:04; Admin Dose 4 MG; Start 08/13/18 at 20:00 Duloxetine HCl (Cymbalta) 60 mg DAILY PO Last administered on 08/23/18at 08:35; Admin Dose 60 MG; Start 08/14/18 at 09:00 Levothyroxine Sodium (Synthroid) 50 mcg BEFORE BREAKFAST PO Last administered on 08/22/18at 05:23; Admin Dose 50 MCG; Start 08/15/18 at 07:00 Alteplase, Recombinant (Cathflo (Activase)) 2 mg MAY REPEAT X1 PRN CATHETER IF C ATHETER REMAINS OCCULUDED Last administered on 08/15/18 07:02; Admin Dose 2 MG; Start 08/15/18 at 06:00 Cholecalciferol (Vitamin D) 2,000 unit DAILY PO Last administered on 08/23/18 08:35; Admin Dose 2,000 UNIT; Start 08/17/18 at 09:00 Zinc Sulfate (Zinc Sulfate) 220 mg DAILY PO Last administered on 08/23/18 08:35; Admin Dose 220 MG; Start 08/17/18 at 09:00 Diphenhydramine HCl (Benadryl) 25 mg Q6H PRN IV ITCHING Last administered on 08/24/18 09:02; Admin Dose 25 MG; Start 08/16/18 at 14:00 Eye Lubricant (Artificial Tears Oph) 1 drop Q6H PRN BOTH EYES DRY EYES Last administered on 08/19/18at 00:00; Admin Dose 1 DROP; Start 08/16/18 at 23:30 Methylnaltrexone [place] (Relistor) 12 mg Q48H SC Last administered on 08/23/18 08:36; Admin Dose 12 MG; Start 08/17/18 at 09:30 Miscellaneous Information 1 ea NOTE XX ; Start 08/17/18 at 10:30 Glucose (Glutose) 15 gm Q15M PRN PO DECREASED GLUCOSE; Start 08/17/18 at 10:30 Glucose (Glutose) 22.5 gm Q15M PRN PO DECREASED GLUCOSE; Start 08/17/18 at 10:30 Dextrose (D50w Syringe) 25 ml Q15M PRN IV DECREASED GLUCOSE; Start 08/17/18 at 10:30 Dextrose (D50w Syringe) 50 ml Q15M PRN IV DECREASED GLUCOSE; Start 08/17/18 at 10:30 Glucagon (Glucagen) 1 mg Q15M PRN IM DECREASED GLUCOSE; Start 08/17/18 at 10:30 Glucose (Glutose) 15 gm Q15M PRN BUCCAL DECREASED GLUCOSE; Start 08/17/18 at 10:30 Hydromorphone HCl (Dilaudid) 2 mg Q3 PRN IV SEVERE PAIN LEVEL 7-10 Last administered on 08/24/18 09:03; Admin Dose 2 MG; Start 08/17/18 at 14:30 Pantoprazole (Protonix Iv) 40 mg BID@06,18 IV Last administered on 08/24/18at 05:54; Admin Dose 40 MG; Start 08/18/18 at 18:00 Lorazepam (Ativan) 1 mg Q6H PRN IV Anxiety Last administered on 08/23/18at 1 6:09; Admin Dose 1 MG; Start 08/18/18 at 14:30 Zolpidem Tartrate (Ambien) 10 mg QHS PRN PO INSOMNIA Last administered on 08/23/18 21:05; Admin Dose 10 MG; Start 08/20/18 at 11:30 Phenol (Cepastat Lozenge) 1 lozenge Q1H PRN MT THROAT PAIN Last administered on 08/23/18 10:22; Admin Dose 1 LOZENGE; Start 08/21/18 at 11:00 Nitrofurantoin Macrocrystals (Macrobid) 100 mg BID PO Last administered on 08/23/18 21:05; Admin Dose 100 MG; Start 08/22/18 at 15:00; Stop 08/27/18 at 15:00 Hydromorphone HCl (Dilaudid) 0.2 mg PACU PRN IV MILD PAIN 1-3; Start 08/24/18 at 11:00; Stop 08/24/18 at 16:30 Hydromorphone HCl (Dilaudid) 0.4 mg PACU PRN IV MOD PAIN 4-6 Last administered on 08/24/18at 12:10; Admin Dose 0.4 MG; Start 08/24/18 at 11:00; Stop 08/24/18 at 16:30 Hydromorphone HCl (Dilaudid) 0.6 mg PACU PRN IV SEVERE PAIN 7-10; Start 08/24/18 at 11:00; Stop 08/24/18 at 16:30 Fentanyl (Sublimaze) 25 mcg PACU ORDER PRN IV MILD PAIN 1-3; Start 08/24/18 at 11:00; Stop 08/24/18 at 16:30 Fentanyl (Sublimaze) 50 mcg PACU ORDER PRN IV MOD PAIN 4-6 Last administered on 08/24/18at 12:09; Admin Dose 50 MCG; Start 08/24/18 at 11:00; Stop 08/24/18 at 16:30 Fentanyl (Sublimaze) 75 mcg PACU ORDER PRN IV SEVERE PAIN 7-10; Start 08/24/18 at 11:00; Stop 08/24/18 at 16:30 Ondansetron HCl (Zofran Inj) 4 mg PACU ORDER PRN IV NAUSEA/VOMITING; Start 08/24/18 at 11:00; Stop 08/24/18 at 16:30 Trimethobenzamide HCl (Tigan) 200 mg PACU ORDER PRN IM NAUSEA/VOMITING; Start 08/24/18 at 11:00; Stop 08/24/18 at 16:30 Labetalol HCl (Labetalol) 5 mg PACU ORDER PRN IV HIGH BLOOD PRESSURE; Start 08/24/18 at 11:00; Stop 08/24/18 at 16:30 Hydralazine HCl (Apresoline) 5 mg PACU ORDER PRN IV HIGH BLOOD PRESSURE; Start 08/24/18 at 11:00; Stop 08/24/18 at 16:30 Ephedrine Sulfate 5 mg PACU ORDER PRN IV BLOOD PRESSURE SUPPORT; Start 08/24/18 at 11:00; Stop 08/24/18 at 16:30 Albuterol (Proventil 0.083% (Neb)) 2.5 mg PACU ORDER PRN HHN .WHEEZING; Start 08/24/18 at 11:00; Stop 08/24/18 at 16:30 Ipratropium [place] (Atrovent 0.02% (Neb)) 0.5 mg PACU ORDER PRN HHN .WHEEZING; Start 08/24/18 at 11:00; Stop 08/24/18 at 16:30 Meperidine HCl (Demerol) 25 mg PACU ORDER PRN IV .RIGORS; Start 08/24/18 at 11:00; Stop 08/24/18 at 16:30 Diphenhydramine HCl (Benadryl) 25 mg PACU ORDER PRN IV .PRURITUS; Start 08/24/18 at 11:00; Stop 08/24/18 at 16:30 Midazolam HCl (Versed) 0.5 mg PACU ORDER PRN IV .ANXIETY Last administered on 08/24/18at 12:25; Admin Dose 0.5 MG; Start 08/24/18 at 11:00; Stop 08/24/18 at 16:30 REGINA CARRASCO M.D. Aug 24, 2018 14:43
[2018-08-24] MEDS: CEPASTAT LOZENGE MT PRN (15:28)
[2018-08-24] MEDS: LORAZEPAM 2 MG INJ IV PRN (16:40)
[2018-08-24] MEDS: ZOLPIDEM 5 MG TAB PO PRN (23:08)
[2018-08-25] VITALS (12 sets, daily range): BP systolic 115–136; BP diastolic 55–70; PULSE 62–86; RESP 17–20
[2018-08-25] MEDS: HYDROmorphONE 2 MG/ML SYG IV PRN ×8 (00:39→22:53)
[2018-08-25] MEDS: DIPHENHYDRAMINE 50 MG INJ IV PRN ×4 (03:40→22:52)
[2018-08-25] MEDS: LORAZEPAM 2 MG INJ IV PRN ×3 (05:19→11:49)
[2018-08-25] MEDS: LEVOTHYROXINE 50 MCG TAB PO SCH (05:19)
[2018-08-25] MEDS: LEVOFLOXACIN 500 MG TAB NGT SCH (05:20)
[2018-08-25] MEDS: ZINC SULFATE 220 MG CAP PO SCH (08:17)
[2018-08-25] MEDS: CHOLECALCIFEROL 2,000 UNIT CAP PO SCH (08:17)
[2018-08-25] MEDS: DULOXETINE 30 MG CAP DR PO SCH (08:17)
[2018-08-25] MEDS: PANTOPRAZOLE (EC) 40 MG TAB PO SCH ×2 (10:11→19:42)
[2018-08-25] MEDS: METHYLNALTREXONE 12 MG/0.6 ML VIAL SC SCH (10:12)
--- NOTE | 2018-08-25 11:30 | CONS ---
Assessment/Plan Assessment/Plan Assessment/Plan (Daily) #h/o Lymphoma -thus far there are no lesions that can be biopsied and it does not appear she has active cancer #Anemia -Hgb Electrophoresis - confirms B- thalassemia trait with Anemia -pt has had microcytic anemia requiring transfusions for years -will order a bone marrow bx at this time- pending -anemia panel-anemia #Hemoptysis, recurrent. -s/p unremarkable bronchoscopy at [facility] -s/p unremarkable flexible laryngoscopy 02/05/17 at [facility] -CT Chest pulmonary nodules are noted but are too small to biopsy --ID workup pending for pulmonary nodules- Numerous tiny lung nodules, increased in number from the chest CT dated May 22, 2018, with largest m easuring 0.3 cm in the left apex - 02/2018- negative TB workup -08/21/18-CT Chest Angio- no new changes. will do Follow-up CT in X 3-4 months to insure stability as recommended - 08/24/18- Repeat bronchoscopy - lesion in right bronchus reported per staff #pancolitis. -Colonoscopy on 08/17/2018 showed patchy colitis. bx was negative -Stool positive for Giardia- pt on vancomycin and flagyl Patient seen in collaboration with Dr Brown. Dw Staff Consultation Date/Type/Reason Admit Date/Time Aug 13, 2018 at 5:22 pm Initial Consult Date 08/19/18 Type of Consult ONCOLOGY Reason for Consultation Hx of Lymphoma Requesting Provider: SHAQUILLE HARRIS Date/Time of Note DATE: 08/25/18 TIME: 11:19 24 HR Interval Summary Free Text/Dictation -c/o shortness of breath 08/24/18- sp Bronchoscopy - hemoptysis reported - no new issues reported overnight Constitutional: requiring O2 Detailed Summary Eyes: no complaints ENT: no complaints Respiratory: shortness of breath Cardiovascular: no complaints Gastrointestinal: no complaints Genitourinary: no complaints Musculoskeletal: neck pain Skin: no complaints Neurologic: no complaints Endocrine: no complaints Psychological: nl mood/affect Immunologic: no complaints Exam/Review of Systems Exam Vitals Vital Signs Date Temp Pulse Resp B/P (MAP) Pulse Ox O2 O2 Flow FiO2 Time Delivery Rate 08/25/18 83 08:45 08/25/18 98.2 18 130/62 100 Room Air 07:47 (84) 08/24/18 2.0 12:52 08/22/18 21 08:29 Intake and Output 08/24/18 08/24/18 08/25/18 1515:00 23:00 07:00 IntakeIntake Total 200 ml 1500 ml 1200 ml OutputOutput Total 0 ml 4 ml 3 ml BalanceBalance 200 ml 1496 ml 1197 ml Constitutional: alert, well developed Psych: nl mood/affect Head: normocephalic Eyes: EOMI, nl lids ENMT: nl external ears & nose Neck: non-tender Respiratory: diminished breath sounds, other (Hemoptysis) Cardiovascular: nl pulses, other (s1s2) Gastrointestinal: soft, non-tender Extremities: normal pulses Neurological: nl speech, other (alert/awake) Skin: nl turgor Lymph: nontender Results Result Diagram: 08/23/1851008/23/18510 Medications Medication Current Medications IV Flush (NS 3 ml) 3 ml PER PROTOCOL IV ; Start 08/13/18 at 20:00 Ondansetron HCl (Zofran Inj) 4 mg Q6H PRN IV NAUSEA AND/OR VOMITING Last administered on 08/15/18at 12:04; Admin Dose 4 MG; Start 08/13/18 at 20:00 Duloxetine HCl (Cymbalta) 60 mg DAILY PO Last administered on 08/25/18 08:17; Admin Dose 60 MG; Start 08/14/18 at 09:00 Levothyroxine Sodium (Synthroid) 50 mcg BEFORE BREAKFAST PO Last administered on 08/25/18 05:19; Admin Dose 50 MCG; Start 08/15/18 at 07:00 Alteplase, Recombinant (Cathflo (Activase)) 2 mg MAY REPEAT X1 PRN CATHETER IF CATHETER REMAINS OCCULUDED Last administered on 08/15/18at 07:02; Admin Dose 2 M G; Start 08/15/18 at 06:00 Cholecalciferol (Vitamin D) 2,000 unit DAILY PO Last administered on 08/25/18 08:17; Admin Dose 2,000 UNIT; Start 08/17/18 at 09:00 Zinc Sulfate (Zinc Sulfate) 220 mg DAILY PO Last administered on 08/25/18 08:17; Admin Dose 220 MG; Start 08/17/18 at 09:00 Diphenhydramine HCl (Benadryl) 25 mg Q6H PRN IV ITCHING Last administered on 08/25/18at 10:11; Admin Dose 25 MG; Start 08/16/18 at 14:00 Eye Lubricant (Artificial Tears Oph) 1 drop Q6H PRN BOTH EYES DRY EYES Last administered on 08/19/18at 00:00; Admin Dose 1 DROP; Start 08/16/18 at 23:30 Methylnaltrexone [place] (Relistor) 12 mg Q48H SC Last administered on 08/25/18at 10:12; Admin Dose 12 MG; Start 08/17/18 at 09:30 Miscellaneous Information 1 ea NOTE XX ; Start 08/17/18 at 10:30 Glucose (Glutose) 15 gm Q15M PRN PO DECREASED GLUCOSE; Start 08/17/18 at 10:30 Glucose (Glutose) 22.5 gm Q15M PRN PO DECREASED GLUCOSE; Start 08/17/18 at 10:30 Dextrose (D50w Syringe) 25 ml Q15M PRN IV DECREASED GLUCOSE; Start 08/17/18 at 10:30 Dextrose (D50w Syringe) 50 ml Q15M PRN IV DECREASED GLUCOSE; Start 08/17/18 at 10:30 Glucagon (Glucagen) 1 mg Q15M PRN IM DECREASED GLUCOSE; Start 08/17/18 at 10:30 Glucose (Glutose) 15 gm Q15M PRN BUCCAL DECREASED GLUCOSE; Start 08/17/18 at 10:30 Hydromorphone HCl (Dilaudid) 2 mg Q3 PRN IV SEVERE PAIN LEVEL 7-10 Last administered on 08/25/18at 10:11; Admin Dose 2 MG; Start 08/17/18 at 14:30 Lorazepam (Ativan) 1 mg Q6H PRN IV Anxiety Last administered on 08/25/18at 05:19; Admin Dose 1 MG; Start 08/18/18 at 14:30 Zolpidem Tartrate (Ambien) 10 mg QHS PRN PO INSOMNIA Last administered on 08/24/18at 23:08; Admin Dose 10 MG; Start 08/20/18 at 11:30 Phenol (Cepastat Lozenge) 1 lozenge Q1H PRN MT THROAT PAIN Last administered on 08/24/18at 15:28; Admin Dose 1 LOZENGE; Start 08/21/18 at 11:00 Levofloxacin (Levaquin) 500 mg DAILY@06 NGT Last administered on 08/25/18at 05:2 0; Admin Dose 500 MG; Start 08/25/18 at 06:00; Stop 08/28/18 at 05:59 Pantoprazole (Protonix Tab) 40 mg BID PO Last administered on 08/25/18at 10:11; Admin Dose 40 MG; Start 08/25/18 at 09:00 SULEMA WRIGHT Aug 25, 2018 11:29 am
--- NOTE | 2018-08-25 11:39 | CONS ---
Assessment/Plan Assessment/Plan Assessment/Plan (Daily) Assessment recommendations; 1. Patient admitted for recurrent hemoptysis etiology is unclear. Patient has had a bronchoscopy prior to current admission at another facility which was completely unremarkable. Patient also underwent repeat bronchoscopy examination yesterday which also was totally normal. It is highly unusual to have a negative bronchoscopy in view of active hemoptysis as the blood can almost always be traced to the originating bronchial segment. 2. Status post recent negative GI workup at another facility. 3. Negative CT imaging of the chest x2 with contrast 1 at [facility] and another one at prior facility. 4. History of DVT and PE, status post Vinh filter placement. 5. History of thyroid cancer. 6. History of non-Hodgkin's lymphoma. Consider discharge. Trial of Pulmicort twice daily to be used as outpatient. Consultation Date/Type/Reason Admit Date/Time Aug 13, 2018 at 17:22 Initial Consult Date 08/19/18 Type of Consult Pulmonary Pulmonary consult requested for evaluation of episode of hemoptysis. Patient is a very pleasant 52-year-old lady who came into the hospital 6 days ago with complaints of abdominal discomfort and diarrhea. Patient has been diagnosed with C. difficile colitis. Patient feeling much better denies any shortness of breath but according to her she coughed up blood this morning small amount without any prior episodes. Patient has been diagnosed with lymphoma with lung involvement recently. Awaiting resumption of chemotherapy. She does have a history of prior lymphoma back in 2007. Patient denies any weight loss. Any chest pain, fever, cough, sputum production. Denies any wheezing. Denies any abdominal pain. Complains of diarrhea. Denies any blood in stool. Past medical history; 1. Status post treatment for lymphoma in 2007. With apparent recurrence involving the lungs. 2. C. difficile colitis on current admission. 3. History of bilateral lower extremity DVT. Status post Green filter placement in the past. 4. History of thyroid cancer. 5. History of hypothyroidism. Medications; reviewed. Allergies; as outlined above. Social history; patient has been a lifelong non-smoker. Family history; noncontributory. Patient is . No show any malignancy. Occupational history; patient is on disability. Review of systems; denies any headache, seizures, sinus symptoms. Any epistaxis. Denies any chest pain, wheezing, shortness breath, cough. Patient had scant about of hemoptysis early this morning. Denies any fever, chills. Any abdominal pain. Complains of diarrhea. Denies any melena or hematochezia. Any orthopnea. Any weight loss. Any skin changes or any arthritis symptoms. General exam; young female, awake alert, currently no distress. Laying comfortably in bed. Requesting Provider: SHAQUILLE HARRIS Date/Time of Note DATE: 08/25/18 TIME: 11:35 24 HR Interval Summary Free Text/Dictation Patient's condition is stable. Still reporting hemoptysis. Denies any shortness breath, chest pain, coughing, wheezing. Any nausea vomiting or any reflux symptoms. General exam; young female, awake alert, currently in no distress. Exam/Review of Systems Exam Vitals Vital Signs Date Temp Pulse Resp B/P (MAP) Pulse Ox O2 O2 Flow FiO2 Time Delivery Rate 08/25/18 97.8 65 18 115/58 100 Room Air 11:30 (77) 08/24/18 2.0 12:52 08/22/18 21 08:29 Intake and Output 08/24/18 08/24/18 08/25/18 1515:00 23:00 07:00 IntakeIntake Total 200 ml 1500 ml 1200 ml OutputOutput Total 0 ml 4 ml 3 ml BalanceBalance 200 ml 1496 ml 1197 ml Exam H EENT exam; supple neck, no JVD. No lymphadenopathy. Midline trachea. No thyromegaly. Patient is edentulous. Pharynx is clear. No neck masses. Chest exam; clear to auscultation. S1-S2 audible, no murmurs. Regular rhythm. Abdomen exam; soft, nontender. No organomegaly. Bowel sounds audible. Extremity exam; peripheral edema clubbing. [employer] exam; no focal deficit. Results Result Diagram: 08/23/1851008/23/18 05 Medications Medication Current Medications IV Flush (NS 3 ml) 3 ml PER PROTOCOL IV ; Start 08/13/18 at 20:00 Ondansetron HCl (Zofran Inj) 4 mg Q6H PRN IV NAUSEA AND/OR VOMITING Last administered on 08/15/18at 12:04; Admin Dose 4 MG; Start 08/13/18 at 20:00 Duloxetine HCl (Cymbalta) 60 mg DAILY PO Last administered on 08/25/18 08:17; Admin Dose 60 MG; Start 08/14/18 at 09:00 Levothyroxine Sodium (Synthroid) 50 mcg BEFORE BREAKFAST PO Last administered on 08/25/18at 05:19; Admin Dose 50 MCG; Start 08/15/18 at 07:00 Alteplase, Recombinant (Cathflo (Activase)) 2 mg MAY REPEAT X1 PRN CATHETER IF CATHETER REMAINS OCCULUDED Last administered on 08/15/18at 07:02; Admin Dose 2 MG; Start 08/15/18 at 06:00 Cholecalciferol (Vitamin D) 2,000 unit DAILY PO Last administered on 08/25/18 08:17; Admin Dose 2,000 UNIT; Start 08/17/18 at 09:00 Zinc Sulfate (Zinc Sulfate) 220 mg DAILY PO Last administered on 08/25/18at 08:17; Admin Dose 220 MG; Start 08/17/18 at 09:00 Diphenhydramine HCl (Benadryl) 25 mg Q6H PRN IV ITCHING Last administered on 08/25/18at 10:11; Admin Dose 25 MG; Start 08/16/18 at 14:00 Eye Lubricant (Artificial Tears Oph) 1 drop Q6H PRN BOTH EYES DRY EYES Last administered on 08/19/18at 00:00; Admin Dose 1 DROP; Start 08/16/18 at 23:30 Methylnaltrexone [place] (Relistor) 12 mg Q48H SC Last administered on 08/25/18at 10:12; Admin Dose 12 MG; Start 08/17/18 at 09:30 Miscellaneous Information 1 ea NOTE XX ; Start 08/17/18 at 10:30 Glucose (Glutose) 15 gm Q15M PRN PO DECREASED GLUCOSE; Start 08/17/18 at 10:30 Glucose (Glutose) 22.5 gm Q15M PRN PO DECREASED GLUCOSE; Start 08/17/18 at 10:30 Dextrose (D50w Syringe) 25 ml Q15M PRN IV DECREASED GLUCOSE; Start 08/17/18 at 10:30 Dextrose (D50w Syringe) 50 ml Q15M PRN IV DECREASED GLUCOSE; Start 08/17/18 at 10:30 Glucagon (Glucagen) 1 mg Q15M PRN IM DECREASED GLUCOSE; Start 08/17/18 at 10:30 Glucose (Glutose) 15 gm Q15M PRN BUCCAL DECREASED GLUCOSE; Start 08/17/18 at 10:30 Hydromorphone HCl (Dilaudid) 2 mg Q3 PRN IV SEVERE PAIN LEVEL 7-10 Last administered on 08/25/18at 10:11; Admin Dose 2 MG; Start 08/17/18 at 14:30 Lorazepam (Ativan) 1 mg Q6H PRN IV Anxiety Last administered on 08/25/18 05:19; Admin Dose 1 MG; Start 08/18/18 at 14:30 Zolpidem Tartrate (Ambien) 10 mg QHS PRN PO INSOMNIA Last administered on 08/24/18 23:08; Admin Dose 10 MG; Start 08/20/18 at 11:30 Phenol (Cepastat Lozenge) 1 lozenge Q1H PRN MT THROAT PAIN Last administered on 08/24/18 15:28; Admin Dose 1 LOZENGE; Start 08/21/18 at 11:00 Levofloxacin (Levaquin) 500 mg DAILY@06 NGT Last administered on 08/25/18 05:20; Admin Dose 500 MG; Start 08/25/18 at 06:00; Stop 08/28/18 at 05:59 Pantoprazole (Protonix Tab) 40 mg BID PO Last administered on 08/25/18at 10:11; Admin Dose 40 MG; Start 08/25/18 at 09:00 ISABELLA EPSTEIN Aug 25, 2018 11:39
[2018-08-25] MEDS: CEPASTAT LOZENGE MT PRN ×2 (11:57→23:07)
--- NOTE | 2018-08-25 12:19 | PAC ---
Date/Time of Note Date/Time of Note DATE: 08/25/18 TIME: 12:19 Post-Anesthesia Notes Post-Anesthesia Note Last documented vital signs Vital Signs Date Temp Pulse Resp B/P (MAP) Pulse Ox O2 O2 Flow FiO2 Time Delivery Rate 08/25/18 97.8 65 18 115/58 100 Room Air 11:30 (77) 08/24/18 2.0 12:52 08/22/18 21 08:29 Activity: WNL Respiratory function: WNL Cardiovascular function: WNL Mental status: Baseline Pain reasonably controlled: Yes Hydration appropriate: Yes Nausea/Vomiting absent: Yes Ricky Willis M.D. Aug 25, 2018 12:19
--- NOTE | 2018-08-25 12:51 | PN ---
Date/Time of Note Date/Time of Note DATE: 08/25/18 TIME: 12:49 Assessment/Plan VTE Prophylaxis Risk score (from [facility])>0 risk: 8 SCD applied (from [facility]): No SCD contraindicated: low risk/ambulating Pharmacological prophylaxis: NA/contraindicated Pharm contraindication: bleeding Lines/Catheters IV C[facility]ter Type (from [facility] PICC Line Central line still needed: Yes Urinary Cath still in place: No Assessment/Plan Hospital Course A/P 1. Hemoptysis??? bronch was completely normal. From past PE? No pathological lesions or scars. Will ask opinion on possible coagulopathy. 2. H/o HL 08- chemo/ xrt; repeat chemo [facility]. Sp BmBx-appears negative. 3. Ho PE/ Dvt, ivc filter 4. resolved Diarrhea/ giardia; Rxed 5. H//o c diff 6. H/o thyroid nodule? S: feels ok; still bleeding. no dyspnea/ fever 08/24: Events noted still having hemoptysis. No hematuria 08/25: Hemoptysis again this morning? Patient denies any hematemesis or epistaxis O: vss PE No pallor adenopathy Regular Clear Benign No edema Result Diagram: 08/23/18 0511 08/23/18 0511 Exam/Review of Systems Exam Vitals Vital Signs Date Temp Pulse Resp B/P (MAP) Pulse Ox O2 O2 Flow FiO2 Time Delivery Rate 08/25/18 86 12:35 08/25/18 97.8 18 115/58 100 Room Air 11:30 (77) 08/24/18 2.0 12:52 08/22/18 21 08:29 Intake and Output 08/24/18 08/24/18 08/25/18 1515:00 23:00 07:00 IntakeIntake Total 200 ml 1500 ml 1200 ml OutputOutput Total 0 ml 4 ml 3 ml BalanceBalance 200 ml 1496 ml 1197 ml Medications Medication Current Medications IV Flush (NS 3 ml) 3 ml PER PROTOCOL IV ; Start 08/13/18 at 20:00 Ondansetron HCl (Zofran Inj) 4 mg Q6H PRN IV NAUSEA AND/OR VOMITING Last adm inistered on 08/15/18at 12:04; Admin Dose 4 MG; Start 08/13/18 at 20:00 Duloxetine HCl (Cymbalta) 60 mg DAILY PO Last administered on 08/25/18 08:17; Admin Dose 60 MG; Start 08/14/18 at 09:00 Levothyroxine Sodium (Synthroid) 50 mcg BEFORE BREAKFAST PO Last administered on 08/25/18at 05:19; Admin Dose 50 MCG; Start 08/15/18 at 07:00 Alteplase, Recombinant (Cathflo (Activase)) 2 mg MAY REPEAT X1 PRN CATHETER IF CATHETER REMAINS OCCULUDED Last administered on 08/15/18at 07:02; Admin Dose 2 MG; Start 08/15/18 at 06:00 Cholecalciferol (Vitamin D) 2,000 unit DAILY PO Last administered on 08/25/18 08:17; Admin Dose 2,000 UNIT; Start 08/17/18 at 09:00 Zinc Sulfate (Zinc Sulfate) 220 mg DAILY PO Last administered on 08/25/18at 08:17; Admin Dose 220 MG; Start 08/17/18 at 09:00 Diphenhydramine HCl (Benadryl) 25 mg Q6H PRN IV ITCHING Last administered on 08/25/18at 10:11; Admin Dose 25 MG; Start 08/16/18 at 14:00 Eye Lubricant (Artificial Tears Oph) 1 drop Q6H PRN BOTH EYES DRY EYES Last administered on 08/19/18at 00:00; Admin Dose 1 DROP; Start 08/16/18 at 23:30 Methylnaltrexone [place] (Relistor) 12 mg Q48H SC Last administered on 08/25/18at 10:12; Admin Dose 12 MG; Start 08/17/18 at 09:30 Miscellaneous Information 1 ea NOTE XX ; Start 08/17/18 at 10:30 Glucose (Glutose) 15 gm Q15M PRN PO DECREASED GLUCOSE; Start 08/17/18 at 10:30 Glucose (Glutose) 22.5 gm Q15M PRN PO DECREASED GLUCOSE; Start 08/17/18 at 10:30 Dextrose (D50w Syringe) 25 ml Q15M PRN IV DECREASED GLUCOSE; Start 08/17/18 at 10:30 Dextrose (D50w Syringe) 50 ml Q15M PRN IV DECREASED GLUCOSE; Start 08/17/18 at 10:30 Glucagon (Glucagen) 1 mg Q15M PRN IM DECREASED GLUCOSE; Start 08/17/18 at 10:30 Glucose (Glutose) 15 gm Q15M PRN BUCCAL DECREASED GLUCOSE; Start 08/17/18 at 10:30 Hydromorphone HCl (Dilaudid) 2 mg Q3 PRN IV SEVERE PAIN LEVEL 7-10 Last administered on 08/25/18 10:11; Admin Dose 2 MG; Start 08/17/18 at 14:30 Lorazepam (Ativan) 1 mg Q6H PRN IV Anxiety Last administered on 08/25/18 11:49; Admin Dose 1 MG; Start 08/18/18 at 14:30 Zolpidem Tartrate (Ambien) 10 mg QHS PRN PO INSOMNIA Last administered on 08/24/18 23:08; Admin Dose 10 MG; Start 08/20/18 at 11:30 Phenol (Cepastat Lozenge) 1 lozenge Q1H PRN MT THROAT PAIN Last administered on 08/25/18 11:57; Admin Dose 1 LOZENGE; Start 08/21/18 at 11:00 Levofloxacin (Levaquin) 500 mg DAILY@06 NGT Last administered on 08/25/18 05:20; Admin Dose 500 MG; Start 08/25/18 at 06:00; Stop 08/28/18 at 05:59 Pantoprazole (Protonix Tab) 40 mg BID PO Last administered on 08/25/18at 10:11; Admin Dose 40 MG; Start 08/25/18 at 09:00 LEON CORONA MD Aug 25, 2018 12:51
--- NOTE | 2018-08-25 16:07 | CONS ---
Assessment/Plan Assessment/Plan Hospital Course (Demo Recall) sepsis, bloodstream infection - H/o "bacteremia due to enterococci" according to progress notes at [facility], but the actual microbiology report indicated blood culture positive for ESBL+E. 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 Her sputum was negative for fungi (incubated x 4 weeks) and AFB (incubated x 8 weeks) - according to the microbiology report at [facility], Pt had ESBL+E. coli in her respiratory culture. Sputum cultures for AFB and fungi were negative at 8 weeks and at 4 weeks respectively - Pt had negative bronchoscopy in 05/2019 at [facility], another at in 2017, and on 08/25/2018 at [facility] (no e/o bronchial airway bleeding) - Numerous tiny lung nodules, increased in number from the chest CT dated May 22, 2018, with largest measuring 0.3 cm in the left apex GI - Delgado-colitis per CT - S/p sigmoidoscopy with biopsy 08/17/2018; path shows no e/o colitis or malignancy from transverse colon and rectum biopsies - S/p bloody diarrhea d/t Giardia; Pt took metronidazolel for Giardia (08/14/2018-08/21/2018) in 07/2018. - H/o C diff toxin negative PCR positive status at [facility]. Took a course of fidaxomyxin x 10 days. C. diff negative on 08/14/2018 at [facility] - H/o cholecystectomy heme/oncology - S/p CT guided bone marrow aspiration and biopsy 08/20/2018 - Microcytic anemia requiring PRBC d/t acute blood loss - H/o BUE and RLE DVT, s/p IVC filter in January 2018 - H/o Hodgkin lymphoma diagnosed in 2006 - H/o thyroid CA diagnosed in 2005, s/p resection, chemo and XRT - IVC filter placement - +Family hx of cancer (father of stomach CA, mother of lymphoma, paternal uncle had breast CA and 12 yo daughter has h/o brain tumor s/p surgery and resulting blindness) , renal - h/o UTI due to ESBL+E. coli other conditions - Bilateral conjunctivitis - improving with Cipro eye drops - Hypothyroidism - HLD - OA - Depression/anxiety - H/o x2 - Allergy to PCN and vancomycin (reaction unknown) Recommendations: - pending results: coccidioidomycosis serology, aspergillus serology, bone marrow Bx to r/o MDS, and sputum fungal culture (in process) - for probable UTI, complete a trial of PO levofloxacin (08/24/2018-08/28/2018) management d/w Pt Consultation Date/Type/Reason Admit Date/Time Aug 13, 2018 at 17:22 Initial Consult Date 08/19/18 Type of Consult ID Requesting Provider: SHAQUILLE HARRIS Date/Time of Note DATE: 08/25/18 TIME: 15:40 24 HR Interval Summary Constitutional: requiring O2, other (not feeling well) Detailed Summary Eyes: no complaints ENT: no complaints Respiratory: pleuritic pain (over b/l posterior scapula and lower mid chest) Cardiovascular: no complaints Gastrointestinal: no complaints Genitourinary: dysuria (but thinks it may be from her vagina) Musculoskeletal: other (diffuse myalgia) Skin: no complaints Exam/Review of Systems Exam Vitals Vital Signs Date Temp Pulse Resp B/P (MAP) Pulse Ox O2 O2 Flow FiO2 Time Delivery Rate 08/25/18 97.8 67 18 115/55 100 Room Air 15:07 (75) 08/24/18 2.0 12:52 08/22/18 21 08:29 Intake and Output 08/24/18 08/24/18 08/25/18 1515:00 23:00 07:00 IntakeIntake Total 200 ml 1500 ml 1200 ml OutputOutput Total 0 ml 4 ml 3 ml BalanceBalance 200 ml 1496 ml 1197 ml Constitutional: alert, frail Psych: no complaints, nl mood/affect Head: normocephalic, atraumatic Eyes: nl conjunctiva, EOMI, nl lids, nl sclera ENMT: nl external ears & nose, nl lips & teeth, nl nasal mucosa & septum, mucosa pink and moist Neck: other (not swollen) Respiratory: clear to auscultation, normal air movement Cardiovascular: regular rate and rhythm, nl pulses Gastrointestinal: soft, non-tender Musculoskeletal: nl extremities to inspection; No swelling Extremities: No edema Neurological: C DEVELOPER II-XII intact, nl mental status, nl speech Skin: nl turgor; No rash or lesions Results Result Diagram: 08/23/1851008/23/18510 Medications Medication Current Medications IV Flush (NS 3 ml) 3 ml PER PROTOCOL IV ; Start 08/13/18 at 20:00 Ondansetron HCl (Zofran Inj) 4 mg Q6H PRN IV NAUSEA AND/OR VOMITING Last admi nistered on 08/15/18 12:04; Admin Dose 4 MG; Start 08/13/18 at 20:00 Duloxetine HCl (Cymbalta) 60 mg DAILY PO Last administered on 08/25/18 08:17; Admin Dose 60 MG; Start 08/14/18 at 09:00 Levothyroxine Sodium (Synthroid) 50 mcg BEFORE BREAKFAST PO Last administered on 08/25/18 05:19; Admin Dose 50 MCG; Start 08/15/18 at 07:00 Alteplase, Recombinant (Cathflo (Activase)) 2 mg MAY REPEAT X1 PRN CATHETER IF CATHETER REMAINS OCCULUDED Last administered on 08/15/18at 07:02; Admin Dose 2 MG; Start 08/15/18 at 06:00 Cholecalciferol (Vitamin D) 2,000 unit DAILY PO Last administered on 08/25/18 08:17; Admin Dose 2,000 UNIT; Start 08/17/18 at 09:00 Zinc Sulfate (Zinc Sulfate) 220 mg DAILY PO Last administered on 08/25/18 08:17; Admin Dose 220 MG; Start 08/17/18 at 09:00 Diphenhydramine HCl (Benadryl) 25 mg Q6H PRN IV ITCHING Last administered on 08/25/18at 10:11; Admin Dose 25 MG; Start 08/16/18 at 14:00 Eye Lubricant (Artificial Tears Oph) 1 drop Q6H PRN BOTH EYES DRY EYES Last administered on 08/19/18 00:00; Admin Dose 1 DROP; Start 08/16/18 at 23:30 Methylnaltrexone [place] (Relistor) 12 mg Q48H SC Last administered on 08/25/18 10:12; Admin Dose 12 MG; Start 08/17/18 at 09:30 Miscellaneous Information 1 ea NOTE XX ; Start 08/17/18 at 10:30 Glucose (Glutose) 15 gm Q15M PRN PO DECREASED GLUCOSE; Start 08/17/18 at 10:30 Glucose (Glutose) 22.5 gm Q15M PRN PO DECREASED GLUCOSE; Start 08/17/18 at 10:30 Dextrose (D50w Syringe) 25 ml Q15M PRN IV DECREASED GLUCOSE; Start 08/17/18 at 10:30 Dextrose (D50w Syringe) 50 ml Q15M PRN IV DECREASED GLUCOSE; Start 08/17/18 at 10:30 Glucagon (Glucagen) 1 mg Q15M PRN IM DECREASED GLUCOSE; Start 08/17/18 at 10:30 Glucose (Glutose) 15 gm Q15M PRN BUCCAL DECREASED GLUCOSE; Start 08/17/18 at 10:30 Hydromorphone HCl (Dilaudid) 2 mg Q3 PRN IV SEVERE PAIN LEVEL 7-10 Last administered on 08/25/18at 13:24; Admin Dose 2 MG; Start 08/17/18 at 14:30 Lorazepam (Ativan) 1 mg Q6H PRN IV Anxiety Last administered on 08/25/18at 11:49; Admin Dose 1 MG; Start 08/18/18 at 14:30 Zolpidem Tartrate (Ambien) 10 mg QHS PRN PO INSOMNIA Last administered on 08/24/18 23:08; Admin Dose 10 MG; Start 08/20/18 at 11:30 Phenol (Cepastat Lozenge) 1 lozenge Q1H PRN MT THROAT PAIN Last administered on 08/25/18 11:57; Admin Dose 1 LOZENGE; Start 08/21/18 at 11:00 Levofloxacin (Levaquin) 500 mg DAILY@06 NGT Last administered on 08/25/18 05:20; Admin Dose 500 MG; Start 08/25/18 at 06:00; Stop 08/28/18 at 05:59 Pantoprazole (Protonix Tab) 40 mg BID PO Last administered on 08/25/18 10:11; Admin Dose 40 MG; Start 08/25/18 at 09:00 REGINA CARRASCO M.D. Aug 25, 2018 16:02
[2018-08-25] MEDS: ZOLPIDEM 5 MG TAB PO PRN (21:52)
[2018-08-26] MEDS: HYDROmorphONE 2 MG/ML SYG IV PRN ×8 (02:00→23:33)
[2018-08-26] MEDS: CEPASTAT LOZENGE MT PRN ×5 (02:01→23:34)
[2018-08-26 02:05] VITALS: BP 116/57; PULSE 71; RESP 18
[2018-08-26] MEDS: LORAZEPAM 2 MG INJ IV PRN ×2 (04:15→10:05)
[2018-08-26] MEDS ORDERED: DIPHENHYDRAMINE 50 MG CAP PO ONE (05:00)
[2018-08-26] MEDS: DIPHENHYDRAMINE 50 MG INJ IV PRN ×4 (05:04→23:32)
[2018-08-26] MEDS: LEVOFLOXACIN 500 MG TAB NGT SCH (06:15)
[2018-08-26] MEDS: DULOXETINE 30 MG CAP DR PO SCH (08:06)
[2018-08-26] MEDS: LEVOTHYROXINE 50 MCG TAB PO SCH (08:06)
[2018-08-26] MEDS: CHOLECALCIFEROL 2,000 UNIT CAP PO SCH (08:06)
[2018-08-26] MEDS: PANTOPRAZOLE (EC) 40 MG TAB PO SCH ×2 (08:06→20:27)
[2018-08-26] MEDS: ZINC SULFATE 220 MG CAP PO SCH (08:06)
[2018-08-26 08:36] VITALS: BP 115/59; PULSE 64; RESP 18
--- NOTE | 2018-08-26 10:43 | PN ---
Date/Time of Note Date/Time of Note DATE: 08/26/18 TIME: 10:42 Assessment/Plan VTE Prophylaxis Risk score (from [facility] [place])>0 risk: 8 SCD applied (from [facility] [place]): No SCD contraindicated: low risk/ambulating Pharmacological prophylaxis: NA/contraindicated Pharm contraindication: bleeding Lines/Catheters IV [facility]ter Type (from [facility]): PICC Line Central line still needed: Yes Urinary Cath still in place: No Assessment/Plan Hospital Course A/P 1. Hemoptysis??? bronch was completely normal. From past PE? No pathological lesions or scars. Will ask opinion on possible coagulopathy. 2. H/o HL '08- chemo/ xrt; repeat chemo [facility]. Sp BmBx-appears negative. 3. Ho PE/ Dvt, ivc filter 4. resolved Diarrhea/ giardia; Rxed 5. H//o c diff 6. H/o thyroid nodule? S: feels ok; still bleeding. no dyspnea/ fever 08/24: Events noted still having hemoptysis. No hematuria 08/25: Hemoptysis again this morning? Patient denies any hematemesis or epistaxis 08/26: Recurrent hemoptysis this morning. No dyspnea fever O: vss PE No pallor; no associated postnasal drip for epistaxis eval/ etc. Regular Clear Benign No edema Result Diagram: 08/23/18 0511 08/23/18 0511 Results 24hrs Laboratory Tests Test 08/26/18 10:25 Lab Scanned Report REFERENCE LAB Exam/Review of Systems Exam Vitals Vital Signs Date Temp Pulse Resp B/P (MAP) Pulse Ox O2 O2 Flow FiO2 Time Delivery Rate 08/26/18 98.6 64 18 115/59 96 Room Air 08:36 (77) 08/24/18 2.0 12:52 08/22/18 21 08:29 Intake and Output 08/25/18 08/25/18 08/26/18 1515:00 23:00 07:00 IntakeIntake Total 2500 ml BalanceBalance 2500 ml Results Results 24hrs Laboratory Tests Test 08/26/18 10:25 Lab Scanned Report REFERENCE LAB Medications Medication Current Medications IV Flush (NS 3 ml) 3 ml PER PROTOCOL IV ; Start 08/13/18 at 20:00 Ondansetron HCl (Zofran Inj) 4 mg Q6H PRN IV NAUSEA AND/OR VOMITING Last administered on 08/15/18 12:04; Admin Dose 4 MG; Start 08/13/18 at 20:00 Duloxetine HCl (Cymbalta) 60 mg DAILY PO Last administered on 08/26/18 08:06; Admin Dose 60 MG; Start 08/14/18 at 09:00 Levothyroxine Sodium (Synthroid) 50 mcg BEFORE BREAKFAST PO Last administered on 08/26/18 08:06; Admin Dose 50 MCG; Start 08/15/18 at 07:00 Alteplase, Recombinant (Cathflo (Activase)) 2 mg MAY REPEAT X1 PRN CATHETER IF CATHETER REMAINS OCCULUDED Last administered on 08/15/18 07:02; Admin Dose 2 MG; Start 08/15/18 at 06:00 Cholecalciferol (Vitamin D) 2,000 unit DAILY PO Last administered on 08/26/18 08:06; Admin Dose 2,000 UNIT; Start 08/17/18 at 09:00 Zinc Sulfate (Zinc Sulfate) 220 mg DAILY PO Last administered on 08/26/18 08:06; Admin Dose 220 MG; Start 08/17/18 at 09:00 Diphenhydramine HCl (Benadryl) 25 mg Q6H PRN IV ITCHING Last administered on 08/26/18 05:04; Admin Dose 25 MG; Start 08/16/18 at 14:00 Eye Lubricant (Artificial Tears Oph) 1 drop Q6H PRN BOTH EYES DRY EYES Last administered on 08/19/18 00:00; Admin Dose 1 DROP; Start 08/16/18 at 23:30 Methylnaltrexone [place] (Relistor) 12 mg Q48H SC Last administered on 08/25/18at 10:12; Admin Dose 12 MG; Start 08/17/18 at 09:30 Miscellaneous Information 1 ea NOTE XX ; Start 08/17/18 at 10:30 Glucose (Glutose) 15 gm Q15M PRN PO DECREASED GLUCOSE; Start 08/17/18 at 10:30 Glucose (Glutose) 22.5 gm Q15M PRN PO DECREASED GLUCOSE; Start 08/17/18 at 10:30 Dextrose (D50w Syringe) 25 ml Q15M PRN IV DECREASED GLUCOSE; Start 08/17/18 at 10:30 Dextrose (D50w Syringe) 50 ml Q15M PRN IV DECREASED GLUCOSE; Start 08/17/18 at 10:30 Glucagon (Glucagen) 1 mg Q15M PRN IM DECREASED GLUCOSE; Start 08/17/18 at 10:30 Glucose (Glutose) 15 gm Q15M PRN BUCCAL DECREASED GLUCOSE; Start 08/17/18 at 10:30 Hydromorphone HCl (Dilaudid) 2 mg Q3 PRN IV SEVERE PAIN LEVEL 7-10 Last administered on 08/26/18 08:07; Admin Dose 2 MG; Start 08/17/18 at 14:30 Lorazepam (Ativan) 1 mg Q6H PRN IV Anxiety Last administered on 08/26/18 10:05; Admin Dose 1 MG; Start 08/18/18 at 14:30 Zolpidem Tartrate (Ambien) 10 mg QHS PRN PO INSOMNIA Last administered on 08/25/18at 21:52; Admin Dose 10 MG; Start 08/20/18 at 11:30 Phenol (Cepastat Lozenge) 1 lozenge Q1H PRN MT THROAT PAIN Last administered on 08/26/18 10:05; Admin Dose 1 LOZENGE; Start 08/21/18 at 11:00 Levofloxacin (Levaquin) 500 mg DAILY@06 NGT Last administered on 08/26/18at 06:15; Admin Dose 500 MG; Start 08/25/18 at 06:00; Stop 08/28/18 at 05:59 Pantoprazole (Protonix Tab) 40 mg BID PO Last administered on 08/26/18 08:06; Admin Dose 40 MG; Start 08/25/18 at 09:00 LEON CORONA MD Aug 26, 2018 10:43
[2018-08-26] MEDS: ONDANSETRON 4 MG INJ IV PRN (13:01)
--- NOTE | 2018-08-26 13:32 | CONS ---
Assessment/Plan Assessment/Plan Assessment/Plan (Daily) #h/o Lymphoma -thus far there are no lesions that can be biopsied and it does not appear she has active cancer #Anemia -Hgb Electrophoresis - confirms B- thalassemia trait with Anemia -pt has had microcytic anemia requiring transfusions for years -will order a bone marrow bx at this time- pending -anemia panel-anemia #Hemoptysis, recurrent. -s/p unremarkable bronchoscopy at [facility] -s/p unremarkable flexible laryngoscopy 02/05/17 at [facility] -CT Chest pulmonary nodules are noted but are too small to biopsy --ID workup pending for pulmonary nodules- Numerous tiny lung nodules, increased in number from the chest CT dated May 22, 2018, with largest m easuring 0.3 cm in the left apex - 02/2018- negative TB workup -08/21/18-CT Chest Angio- no new changes. will do Follow-up CT in X 3-4 months to insure stability as recommended - 08/24/18- Repeat bronchoscopy - lesion in right bronchus reported per staff #pancolitis. -Colonoscopy on 08/17/2018 showed patchy colitis. bx was negative -Stool positive for Giardia- pt on vancomycin and flagyl Patient seen in collaboration with Dr Brown. Dw Staff Consultation Date/Type/Reason Admit Date/Time Aug 13, 2018 at 17:22 Initial Consult Date 08/19/18 Type of Consult ONCOLOGY Requesting Provider: SHAQUILLE HARRIS Date/Time of Note DATE: 08/26/18 TIME: 13:31 24 HR Interval Summary Free Text/Dictation c/o shortness of breath c/o hemoptysis on /off no new events reported last night Constitutional: requiring IVF Detailed Summary Eyes: no complaints ENT: no complaints Respiratory: shortness of breath, other (coughing blood ) Cardiovascular: no complaints Gastrointestinal: no complaints Genitourinary: no complaints Musculoskeletal: no complaints Skin: no complaints Neurologic: no complaints Endocrine: no complaints Exam/Review of Systems Exam Vitals Vital Signs Date Temp Pulse Resp B/P (MAP) Pulse Ox O2 O2 Flow FiO2 Time Delivery Rate 08/26/18 98.6 64 18 115/59 96 Room Air 08:36 (77) 08/24/18 2.0 12:52 08/22/18 21 08:29 Intake and Output 08/25/18 08/25/18 08/26/18 1515:00 23:00 07:00 IntakeIntake Total 2500 ml BalanceBalance 2500 ml Constitutional: alert, well developed Psych: nl mood/affect Head: atraumatic Eyes: EOMI, nl sclera ENMT: nl external ears & nose Neck: non-tender Respiratory: clear to auscultation, other (bilaterally) Cardiovascular: nl pulses, other (s12) Musculoskeletal: nl extremities to inspection Extremities: normal pulses Neurological: nl speech, other (alert/responsive) Skin: nl turgor Lymph: nontender Results Result Diagram: 08/23/1851008/23/18510 Results 24hrs Laboratory Tests Test 08/26/18 10:25 Lab Scanned Report REFERENCE LAB Medications Medication Current Medications IV Flush (NS 3 ml) 3 ml PER PROTOCOL IV ; Start 08/13/18 at 20:00 Ondansetron HCl (Zofran Inj) 4 mg Q6H PRN IV NAUSEA AND/OR VOMITING Last administered on 08/26/18 13:01; Admin Dose 4 MG; Start 08/13/18 at 20:00 Duloxetine HCl (Cymbalta) 60 mg DAILY PO Last administered on 08/26/18 08:06; Admin Dose 60 MG; Start 08/14/18 at 09:00 Levothyroxine Sodium (Synthroid) 50 mcg BEFORE BREAKFAST PO Last administered on 08/26/18 08:06; Admin Dose 50 MCG; Start 08/15/18 at 07:00 Alteplase, Recombinant (Cathflo (Activase)) 2 mg MAY REPEAT X1 PRN CATHETER IF CATHETER REMAINS OCCULUDED Last administered on 08/15/18 07:02; Admin Dose 2 MG; Start 08/15/18 at 06:00 Cholecalciferol (Vitamin D) 2,000 unit DAILY PO Last administered on 08/26/18 08:06; Admin Dose 2,000 UNIT; Start 08/17/18 at 09:00 Zinc Sulfate (Zinc Sulfate) 220 mg DAILY PO Last administered on 08/26/18 08:06; Admin Dose 220 MG; Start 08/17/18 at 09:00 Diphenhydramine HCl (Benadryl) 25 mg Q6H PRN IV ITCHING Last administered on 08/26/18 11:19; Admin Dose 25 MG; Start 08/16/18 at 14:00 Eye Lubricant (Artificial Tears Oph) 1 drop Q6H PRN BOTH EYES DRY EYES Last administered on 08/19/18at 00:00; Admin Dose 1 DROP; Start 08/16/18 at 23:30 Methylnaltrexone [place] (Relistor) 12 mg Q48H SC Last administered on 08/25/18at 10:12; Admin Dose 12 MG; Start 08/17/18 at 09:30 Miscellaneous Information 1 ea NOTE XX ; Start 08/17/18 at 10:30 Glucose (Glutose) 15 gm Q15M PRN PO DECREASED GLUCOSE; Start 08/17/18 at 10:30 Glucose (Glutose) 22.5 gm Q15M PRN PO DECREASED GLUCOSE; Start 08/17/18 at 10:30 Dextrose (D50w Syringe) 25 ml Q15M PRN IV DECREASED GLUCOSE; Start 08/17/18 at 10:30 Dextrose (D50w Syringe) 50 ml Q15M PRN IV DECREASED GLUCOSE; Start 08/17/18 at 10:30 Glucagon (Glucagen) 1 mg Q15M PRN IM DECREASED GLUCOSE; Start 08/17/18 at 10:30 Glucose (Glutose) 15 gm Q15M PRN BUCCAL DECREASED GLUCOSE; Start 08/17/18 at 10:30 Hydromorphone HCl (Dilaudid) 2 mg Q3 PRN IV SEVERE PAIN LEVEL 7-10 Last administered on 08/26/18at 11:19; Admin Dose 2 MG; Start 08/17/18 at 14:30 Lorazepam (Ativan) 1 mg Q6H PRN IV Anxiety Last administered on 08/26/18at 10:05; Admin Dose 1 MG; Start 08/18/18 at 14:30 Zolpidem Tartrate (Ambien) 10 mg QHS PRN PO INSOMNIA Last administered on 08/25/18 21:52; Admin Dose 10 MG; Start 08/20/18 at 11:30 Phenol (Cepastat Lozenge) 1 lozenge Q1H PRN MT THROAT PAIN Last administered on 08/26/18at 13:01; Admin Dose 1 LOZENGE; Start 08/21/18 at 11:00 Levofloxacin (Levaquin) 500 mg DAILY@06 NGT Last administered on 08/26/18at 06:15; Admin Dose 500 MG; Start 08/25/18 at 06:00; Stop 08/28/18 at 05:59 Pantoprazole (Protonix Tab) 40 mg BID PO Last administered on 08/26/18at 08:06; Admin Dose 40 MG; Start 08/25/18 at 09:00 SULEMA WRIGHT Aug 26, 2018 13:32
[2018-08-26 14:30] VITALS: BP 117/86; PULSE 84; RESP 20
[2018-08-26 20:05] VITALS: BP 131/79; PULSE 75; RESP 18
--- NOTE | 2018-08-26 20:38 | CONS ---
Assessment/Plan Assessment/Plan Hospital Course (Demo Recall) sepsis, bloodstream infection - H/o "bacteremia due to enterococci" according to progress notes at [facility], but the actual microbiology report indicated blood culture positive for ESBL+E. 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 Her sputum was negative for fungi (incubated x 4 weeks) and AFB (incubated x 8 weeks) - according to the microbiology report at [facility], Pt had ESBL+E. coli in her respiratory culture. Sputum cultures for AFB and fungi were negative at 8 weeks and at 4 weeks respectively - Pt had negative bronchoscopy in 05/2019 at [facility], another at in 2017, and on 08/25/2018 at [facility] (no e/o bronchial airway bleeding) - Numerous tiny lung nodules, increased in number from the chest CT dated May 22, 2018, with largest measuring 0.3 cm in the left apex GI - Delgado-colitis per CT - S/p sigmoidoscopy with biopsy 08/17/2018; path shows no e/o colitis or malignancy from transverse colon and rectum biopsies - S/p bloody diarrhea d/t Giardia; Pt took metronidazolel for Giardia (08/14/2018-08/21/2018) in 07/2018. - H/o C diff toxin negative PCR positive status at [facility]. Took a course of fidaxomyxin x 10 days. C. diff negative on 08/14/2018 at [facility] - H/o cholecystectomy heme/oncology - S/p CT guided bone marrow aspiration and biopsy 08/20/2018 - Microcytic anemia requiring PRBC d/t acute blood loss - H/o BUE and RLE DVT, s/p IVC filter in January 2018 - H/o Hodgkin lymphoma diagnosed in 2006 - H/o thyroid CA diagnosed in 2005, s/p resection, chemo and XRT - IVC filter placement - +Family hx of cancer (father of stomach CA, mother of lymphoma, paternal uncle had breast CA and 12 yo daughter has h/o brain tumor s/p surgery and resulting blindness) , renal - h/o UTI due to ESBL+E. coli other conditions - an ulcer at frenulum - Bilateral conjunctivitis - improving with Cipro eye drops - Hypothyroidism - HLD - OA - Depression/anxiety - H/o x2 - Allergy to PCN and vancomycin (reaction unknown) Recommendations: - pending results: coccidioidomycosis serology, aspergillus serology, and sputum fungal culture (in process. growing kaley so far) - ordered: RPR, 1,0-xmsn-u-glucan - for probable UTI, complete a trial of PO levofloxacin (08/24/2018-08/28/2018) management d/w Pt, her RN Cynthia Consultation Date/Type/Reason Admit Date/Time Aug 13, 2018 at 17:22 Initial Consult Date 08/19/18 Type of Consult ID Requesting Provider: SHAQUILLE HARRIS Date/Time of Note DATE: 08/26/18 TIME: 20:34 24 HR Interval Summary Constitutional: chills Detailed Summary Eyes: no complaints ENT: other (sore at the frenulum) Respiratory: other (hemoptysis) Cardiovascular: no complaints Gastrointestinal: no complaints Genitourinary: no complaints Musculoskeletal: no complaints Skin: no complaints Neurologic: no complaints Exam/Review of Systems Exam Vitals Vital Signs Date Temp Pulse Resp B/P (MAP) Pulse Ox O2 O2 Flow FiO2 Time Delivery Rate 08/26/18 98.4 75 18 131/79 98 20:05 (96) 08/26/18 Room Air 14:30 08/24/18 2.0 12:52 08/22/18 21 08:29 Intake and Output 08/25/18 08/25/18 08/26/18 1515:00 23:00 07:00 IntakeIntake Total 2500 ml BalanceBalance 2500 ml Constitutional: alert, oriented, well developed Psych: no complaints, other (distressed) Head: normocephalic, atraumatic Eyes: nl conjunctiva, nl lids, nl sclera ENMT: nl external ears & nose, nl nasal mucosa & septum, other (+ulcer at the frenulum) Neck: supple, other (not swollen) Respiratory: clear to auscultation, normal air movement, other (erosanguinous fregmon with blood clots) Cardiovascular: regular rate and rhythm Gastrointestinal: soft, non-tender Musculoskeletal: nl extremities to inspection Extremities: No edema Results Result Diagram: 08/23/1851008/23/18 0511 Results 24hrs Laboratory Tests Test 08/26/18 10:25 Lab Scanned Report REFERENCE LAB Medications Medication Current Medications IV Flush (NS 3 ml) 3 ml PER PROTOCOL IV ; Start 08/13/18 at 20:00 Ondansetron HCl (Zofran Inj) 4 mg Q6H PRN IV NAUSEA AND/OR VOMITING Last administered on 08/26/18 13:01; Admin Dose 4 MG; Start 08/13/18 at 20:00 Duloxetine HCl (Cymbalta) 60 mg DAILY PO Last administered on 08/26/18 08:06; Admin Dose 60 MG; Start 08/14/18 at 09:00 Levothyroxine Sodium (Synthroid) 50 mcg BEFORE BREAKFAST PO Last administered on 08/26/18 08:06; Admin Dose 50 MCG; Start 08/15/18 at 07:00 Alteplase, Recombinant (Cathflo (Activase)) 2 mg MAY REPEAT X1 PRN CATHETER IF CATHETER REMAINS OCCULUDED Last administered on 08/15/18 07:02; Admin Dose 2 MG; Start 08/15/18 at 06:00 Cholecalciferol (Vitamin D) 2,000 unit DAILY PO Last administered on 08/26/18 08:06; Admin Dose 2,000 UNIT; Start 08/17/18 at 09:00 Zinc Sulfate (Zinc Sulfate) 220 mg DAILY PO Last administered on 08/26/18 08:06; Admin Dose 220 MG; Start 08/17/18 at 09:00 Diphenhydramine HCl (Benadryl) 25 mg Q6H PRN IV ITCHING Last administered on 08/26/18 17:22; Admin Dose 25 MG; Start 08/16/18 at 14:00 Eye Lubricant (Artificial Tears Oph) 1 drop Q6H PRN BOTH EYES DRY EYES Last administered on 08/19/18 00:00; Admin Dose 1 DROP; Start 08/16/18 at 23:30 Methylnaltrexone [place] (Relistor) 12 mg Q48H SC Last administered on 08/25/18at 10:12; Admin Dose 12 MG; Start 08/17/18 at 09:30 Miscellaneous Information 1 ea NOTE XX ; Start 08/17/18 at 10:30 Glucose (Glutose) 15 gm Q15M PRN PO DECREASED GLUCOSE; Start 08/17/18 at 10:30 Glucose (Glutose) 22.5 gm Q15M PRN PO DECREASED GLUCOSE; Start 08/17/18 at 10:30 Dextrose (D50w Syringe) 25 ml Q15M PRN IV DECREASED GLUCOSE; Start 08/17/18 at 10:30 Dextrose (D50w Syringe) 50 ml Q15M PRN IV DECREASED GLUCOSE; Start 08/17/18 at 10:30 Glucagon (Glucagen) 1 mg Q15M PRN IM DECREASED GLUCOSE; Start 08/17/18 at 10:30 Glucose (Glutose) 15 gm Q15M PRN BUCCAL DECREASED GLUCOSE; Start 08/17/18 at 10:30 Hydromorphone HCl (Dilaudid) 2 mg Q3 PRN IV SEVERE PAIN LEVEL 7-10 Last administered on 08/26/18at 17:22; Admin Dose 2 MG; Start 08/17/18 at 14:30 Lorazepam (Ativan) 1 mg Q6H PRN IV Anxiety Last administered on 08/26/18at 10 :05; Admin Dose 1 MG; Start 08/18/18 at 14:30 Zolpidem Tartrate (Ambien) 10 mg QHS PRN PO INSOMNIA Last administered on 08/25/18at 21:52; Admin Dose 10 MG; Start 08/20/18 at 11:30 Phenol (Cepastat Lozenge) 1 lozenge Q1H PRN MT THROAT PAIN Last administered on 08/26/18at 13:01; Admin Dose 1 LOZENGE; Start 08/21/18 at 11:00 Levofloxacin (Levaquin) 500 mg DAILY@06 NGT Last administered on 08/26/18at 06:15; Admin Dose 500 MG; Start 08/25/18 at 06:00; Stop 08/28/18 at 05:59 Pantoprazole (Protonix Tab) 40 mg BID PO Last administered on 08/26/18 08:06; Admin Dose 40 MG; Start 08/25/18 at 09:00 REGINA CARRASCO M.D. Aug 26, 2018 20:38
[2018-08-26] MEDS: ZOLPIDEM 5 MG TAB PO PRN (21:58)
[2018-08-26] MEDS: ALTEPLASE (CATHFLO) 2 MG INJ CATHETER PRN (23:34)
[2018-08-27 02:04] VITALS: BP 118/58; PULSE 69; RESP 18
[2018-08-27] MEDS: HYDROmorphONE 2 MG/ML SYG IV PRN ×7 (03:18→21:19)
[2018-08-27] MEDS: DIPHENHYDRAMINE 50 MG INJ IV PRN ×3 (06:17→18:19)
[2018-08-27] MEDS: LEVOFLOXACIN 500 MG TAB NGT SCH (06:19)
[2018-08-27] MEDS: CEPASTAT LOZENGE MT PRN ×5 (06:19→21:17)
[2018-08-27] MEDS: LEVOTHYROXINE 50 MCG TAB PO SCH (06:20)
[2018-08-27 08:50] VITALS: BP 124/66; PULSE 67; RESP 18
[2018-08-27] MEDS: ZINC SULFATE 220 MG CAP PO SCH (09:20)
[2018-08-27] MEDS: PANTOPRAZOLE (EC) 40 MG TAB PO SCH ×2 (09:20→21:17)
[2018-08-27] MEDS: DULOXETINE 30 MG CAP DR PO SCH (09:20)
[2018-08-27] MEDS: CHOLECALCIFEROL 2,000 UNIT CAP PO SCH (09:20)
[2018-08-27] MEDS: METHYLNALTREXONE 12 MG/0.6 ML VIAL SC SCH (09:21)
--- NOTE | 2018-08-27 12:59 | CONS ---
Assessment/Plan Assessment/Plan Assessment/Plan (Daily) #h/o Lymphoma -thus far there are no lesions that can be biopsied and it does not appear she has active cancer #Anemia -Hgb Electrophoresis - confirms B- thalassemia trait with Anemia -pt has had microcytic anemia requiring transfusions for years -will order a bone marrow bx at this time- pending -anemia panel-anemia #Hemoptysis, recurrent. -s/p unremarkable bronchoscopy at [facility] -s/p unremarkable flexible laryngoscopy 02/05/17 at [facility] -CT Chest pulmonary nodules are noted but are too small to biopsy --ID workup pending for pulmonary nodules- Numerous tiny lung nodules, increased in number from the chest CT dated May 22, 2018, with largest m easuring 0.3 cm in the left apex - 02/2018- negative TB workup -08/21/18-CT Chest Angio- no new changes. will do Follow-up CT in X 3-4 months to insure stability as recommended - 08/24/18- Repeat bronchoscopy -wnl #pancolitis. -Colonoscopy on 08/17/2018 showed patchy colitis. bx was negative -Stool positive for Giardia- pt on vancomycin and flagyl Patient seen in collaboration with Dr Brown. Dw Staff Consultation Date/Type/Reason Admit Date/Time Aug 13, 2018 at 5:22 pm Initial Consult Date 08/19/18 Type of Consult ONCOLOGY Reason for Consultation h/o Lymphoma Requesting Provider: SHAQUILLE HARRIS Date/Time of Note DATE: 08/27/18 TIME: 12:55 24 HR Interval Summary Free Text/Dictation - events of hemoptysis reported - c/o abdominal/back pain- PMD notified by staff. Detailed Summary Eyes: no complaints ENT: no complaints Respiratory: shortness of breath, other (coughing blood) Cardiovascular: no complaints Gastrointestinal: no complaints Genitourinary: no complaints Musculoskeletal: no complaints Skin: no complaints Neurologic: no complaints Endocrine: no complaints Exam/Review of Systems Exam Vitals Vital Signs Date Temp Pulse Resp B/P (MAP) Pulse Ox O2 O2 Flow FiO2 Time Delivery Rate 08/27/18 98.3 67 18 124/66 100 08:50 (85) 08/26/18 Room Air 14:30 08/24/18 2.0 12:52 Intake and Output 08/26/18 08/26/1808/27/19 1515:00 23:00 07:00 IntakeIntake Total 350 ml 1250 ml 2000 ml BalanceBalance 350 ml 1250 ml 2000 ml Constitutional: alert, well developed Psych: nl mood/affect Head: normocephalic Eyes: EOMI, nl lids, nl sclera ENMT: nl external ears & nose Neck: non-tender Respiratory: diminished breath sounds (bilatrally) Cardiovascular: nl pulses, other (s1s2) Gastrointestinal: soft, non-tender Musculoskeletal: nl extremities to inspection Extremities: normal pulses Neurological: nl mental status, nl speech Skin: nl turgor Lymph: nontender (\\\\\\\\\\\\\\\\\) Results Result Diagram: 08/23/18 0511 08/23/18 0511 Results 24hrs Laboratory Tests Test 08/27/18 08:42 Lab Scanned Report REFERENCE LAB Medications Medication Current Medications IV Flush (NS 3 ml) 3 ml PER PROTOCOL IV ; Start 08/13/18 at 20:00 Ondansetron HCl (Zofran Inj) 4 mg Q6H PRN IV NAUSEA AND/OR VOMITING Last administered on 08/26/18at 13:01; Admin Dose 4 MG; Start 08/13/18 at 20:00 Duloxetine HCl (Cymbalta) 60 mg DAILY PO Last administered on 08/27/18 09:20; Admin Dose 60 MG; Start 08/14/18 at 09:00 Levothyroxine Sodium (Synthroid) 50 mcg BEFORE BREAKFAST PO Last administered on 08/27/18 06:20; Admin Dose 50 MCG; Start 08/15/18 at 07:00 Alteplase, Recombinant (Cathflo (Activase)) 2 mg MAY REPEAT X1 PRN CATHETER IF CATHETER REMAINS OCCULUDED Last administered on 08/26/18at 23:34; Admin Dose 2 MG; Start 08/15/18 at 06:00 Cholecalciferol (Vitamin D) 2,000 unit DAILY PO Last administered on 08/27/18 09:20; Admin Dose 2,000 UNIT; Start 08/17/18 at 09:00 Zinc Sulfate (Zinc Sulfate) 220 mg DAILY PO Last administered on 08/27/18 09:20; Admin Dose 220 MG; Start 08/17/18 at 09:00 Eye Lubricant (Artificial Tears Oph) 1 drop Q6H PRN BOTH EYES DRY EYES Last administered on 08/19/18at 00:00; Admin Dose 1 DROP; Start 08/16/18 at 23:30 Methylnaltrexone [place] (Relistor) 12 mg Q48H SC Last administered on 08/27/18at 09:21; Admin Dose 12 MG; Start 08/17/18 at 09:30 Miscellaneous Information 1 ea NOTE XX ; Start 08/17/18 at 10:30 Glucose (Glutose) 15 gm Q15M PRN PO DECREASED GLUCOSE; Start 08/17/18 at 10:30 Glucose (Glutose) 22.5 gm Q15M PRN PO DECREASED GLUCOSE; Start 08/17/18 at 10:30 Dextrose (D50w Syringe) 25 ml Q15M PRN IV DECREASED GLUCOSE; Start 08/17/18 at 10:30 Dextrose (D50w Syringe) 50 ml Q15M PRN IV DECREASED GLUCOSE; Start 08/17/18 at 10:30 Glucagon (Glucagen) 1 mg Q15M PRN IM DECREASED GLUCOSE; Start 08/17/18 at 10:30 Glucose (Glutose) 15 gm Q15M PRN BUCCAL DECREASED GLUCOSE; Start 08/17/18 at 10:30 Hydromorphone HCl (Dilaudid) 2 mg Q3 PRN IV SEVERE PAIN LEVEL 7-10 Last administered on 08/27/18at 12:22; Admin Dose 2 MG; Start 08/17/18 at 14:30 Lorazepam (Ativan) 1 mg Q6H PRN IV Anxiety Last administered on 08/26/18at 10:05; Admin Dose 1 MG; Start 08/18/18 at 14:30 Zolpidem Tartrate (Ambien) 10 mg QHS PRN PO INSOMNIA Last administered on 08/26/18at 21:58; Admin Dose 10 MG; Start 08/20/18 at 11:30 Phenol (Cepastat Lozenge) 1 lozenge Q1H PRN MT THROAT PAIN Last administered on 08/27/18at 11:09; Admin Dose 1 LOZENGE; Start 08/21/18 at 11:00 Levofloxacin (Levaquin) 500 mg DAILY@06 NGT Last administered on 08/27/18at 06:19; Admin Dose 500 MG; Start 08/25/18 at 06:00; Stop 08/28/18 at 05:59 Pantoprazole (Protonix Tab) 40 mg BID PO Last administered on 08/27/18at 09:20; Admin Dose 40 MG; Start 08/25/18 at 09:00 Diphenhydramine HCl (Benadryl) 50 mg Q6H PRN IV ITCHING Last administered on 08/27/18at 12:22; Admin Dose 50 MG; Start 08/26/18 at 21:00 SULEMA WRIGHT Aug 27, 2018 12:58 pm
[2018-08-27] MEDS: ONDANSETRON 4 MG INJ IV PRN (13:06)
[2018-08-27] MEDS: LORAZEPAM 2 MG INJ IV PRN (13:42)
[2018-08-27 15:39] VITALS: BP 117/68; PULSE 89; RESP 19
--- NOTE | 2018-08-27 16:54 | PN ---
Date/Time of Note Date/Time of Note DATE: 08/27/18 TIME: 16:53 Assessment/Plan VTE Prophylaxis [place] [facility] risk: 8 SCD applied [place] [facility] No SCD contraindicated: low risk/ambulating Pharmacological prophylaxis: NA/contraindicated Pharm contraindication: bleeding Lines/Catheters IV [facility] PICC Line Central line still needed: Yes Urinary Cath still in place: No Assessment/Plan Hospital Course A/P 1. Hemoptysis?? bronch was completely normal. From past PE? No pathological lesions or scars. Will ask hematology for opinion on possible coagulopathy. 2. H/o HL '08- chemo/ xrt; repeat chemo ' [facility]. Sp BmBx-appears negative. 3. Ho PE/ Dvt, ivc filter 4. resolved Diarrhea/ giardia; Rxed 5. H//o c diff 6. H/o thyroid nodule? S: feels ok; still bleeding. no dyspnea/ fever 08/24: Events noted still having hemoptysis. No hematuria 08/25: Hemoptysis again this morning? Patient denies any hematemesis or epistaxis 08/26: Recurrent hemoptysis this morning. No dyspnea fever 08/27: Still having hemoptysis? No hematochezia melena hematuria or epistaxis. No dyspnea fever. O: vss PE No pallor Regular Clear Benign No edema Result Diagram: 08/23/18 0511 08/23/18 0511 Results 24hrs Laboratory Tests Test 08/27/18 05:21 08/27/18 08:42 Rapid Plasma Reagin NONREACTIVE Lab Scanned Report REFERENCE LAB Exam/Review of Systems Exam Vitals Vital Signs Date Temp Pulse Resp B/P (MAP) Pulse Ox O2 O2 Flow FiO2 Time Delivery Rate 08/27/18 98.4 89 19 117/68 96 15:39 (84) 08/26/18 Room Air 14:30 08/24/18 2.0 12:52 Intake and Output 08/26/18 08/26/18 08/27/18 1414:59 22:59 06:59 IntakeIntake Total 350 ml 1250 ml 2000 ml BalanceBalance 350 ml 1250 ml 2000 ml Results Results 24hrs Laboratory Tests Test 08/27/18 05:21 08/27/18 08:42 Rapid Plasma Reagin NONREACTIVE Lab Scanned Report REFERENCE LAB Medications Medication Current Medications IV Flush (NS 3 ml) 3 ml PER PROTOCOL IV ; Start 08/13/18 at 20:00 Ondansetron HCl (Zofran Inj) 4 mg Q6H PRN IV NAUSEA AND/OR VOMITING Last administered on 08/27/18 13:06; Admin Dose 4 MG; Start 08/13/18 at 20:00 Duloxetine HCl (Cymbalta) 60 mg DAILY PO Last administered on 08/27/18 09:20; Admin Dose 60 MG; Start 08/14/18 at 09:00 Levothyroxine Sodium (Synthroid) 50 mcg BEFORE BREAKFAST PO Last administered on 08/27/18 06:20; Admin Dose 50 MCG; Start 08/15/18 at 07:00 Alteplase, Recombinant (Cathflo (Activase)) 2 mg MAY REPEAT X1 PRN CATHETER IF CATHETER REMAINS OCCULUDED Last administered on 08/26/18 23:34; Admin Dose 2 MG; Start 08/15/18 at 06:00 Cholecalciferol (Vitamin D) 2,000 unit DAILY PO Last administered on 08/27/18 09:20; Admin Dose 2,000 UNIT; Start 08/17/18 at 09:00 Zinc Sulfate (Zinc Sulfate) 220 mg DAILY PO Last administered on 08/27/18at 0 9:20; Admin Dose 220 MG; Start 08/17/18 at 09:00 Eye Lubricant (Artificial Tears Oph) 1 drop Q6H PRN BOTH EYES DRY EYES Last administered on 08/19/18 00:00; Admin Dose 1 DROP; Start 08/16/18 at 23:30 Methylnaltrexone [place] (Relistor) 12 mg Q48H SC Last administered on 08/27/18 09:21; Admin Dose 12 MG; Start 08/17/18 at 09:30 Miscellaneous Information 1 ea NOTE XX ; Start 08/17/18 at 10:30 Glucose (Glutose) 15 gm Q15M PRN PO DECREASED GLUCOSE; Start 08/17/18 at 10:30 Glucose (Glutose) 22.5 gm Q15M PRN PO DECREASED GLUCOSE; Start 08/17/18 at 10:30 Dextrose (D50w Syringe) 25 ml Q15M PRN IV DECREASED GLUCOSE; Start 08/17/18 at 10:30 Dextrose (D50w Syringe) 50 ml Q15M PRN IV DECREASED GLUCOSE; Start 08/17/18 at 10:30 Glucagon (Glucagen) 1 mg Q15M PRN IM DECREASED GLUCOSE; Start 08/17/18 at 10:30 Glucose (Glutose) 15 gm Q15M PRN BUCCAL DECREASED GLUCOSE; Start 08/17/18 at 10:30 Hydromorphone HCl (Dilaudid) 2 mg Q3 PRN IV SEVERE PAIN LEVEL 7-10 Last administered on 08/27/18 15:14; Admin Dose 2 MG; Start 08/17/18 at 14:30 Lorazepam (Ativan) 1 mg Q6H PRN IV Anxiety Last administered on 08/27/18 13:42; Admin Dose 1 MG; Start 08/18/18 at 14:30 Zolpidem Tartrate (Ambien) 10 mg QHS PRN PO INSOMNIA Last administered on 08/26/18 21:58; Admin Dose 10 MG; Start 08/20/18 at 11:30 Phenol (Cepastat Lozenge) 1 lozenge Q1H PRN MT THROAT PAIN Last administered on 08/27/18 15:21; Admin Dose 1 LOZENGE; Start 08/21/18 at 11:00 Levofloxacin (Levaquin) 500 mg DAILY@06 NGT Last administered on 08/27/18 06:19; Admin Dose 500 MG; Start 08/25/18 at 06:00; Stop 08/28/18 at 05:59 Pantoprazole (Protonix Tab) 40 mg BID PO Last administered on 08/27/18 09:20; Admin Dose 40 MG; Start 08/25/18 at 09:00 Diphenhydramine HCl (Benadryl) 50 mg Q6H PRN IV ITCHING Last administered on 08/27/18 12:22; Admin Dose 50 MG; Start 08/26/18 at 21:00 LEON CORONA MD Aug 27, 2018 16:54
--- NOTE | 2018-08-27 19:58 | CONS ---
Assessment/Plan Assessment/Plan Hospital Course (Demo Recall) sepsis, bloodstream infection - H/o "bacteremia due to enterococci" according to progress notes at [facility], but the actual microbiology report indicated blood culture was positive for ESBL+E. coli - h/o fungemia due to kaley glabrata, sensitive to fluconazole and to micafungin/caspofungin at [facility] pulm - persistent hemoptysis of unknown etiology: Pt reports negative PPD last month at [facility]. - according to the microbiology report at [facility], Pt had ESBL+E. coli i n her respiratory culture. Sputum cultures for AFB and fungi were negative at 8 weeks and at 4 weeks respectively at [facility] - Pt had negative bronchoscopy in 05/2019 at [facility], another at in 2017, and on 08/25/2018 at [facility] (no e/o bronchial airway bleeding according to Dr. Bello - Numerous tiny lung nodules, increased in number from the chest CT dated May 22, 2018, with largest measuring 0.3 cm in the left apex - so far: aspergillus antibody not detected, HIV negative GI - Delgado-colitis per CT - S/p sigmoidoscopy with biopsy 08/17/2018; path showed no e/o colitis or malignancy from transverse colon and rectum biopsies - S/p bloody diarrhea d/t Giardia; Pt took metronidazolel for Giardia (08/14/2018-08/21/2018) in 07/2018. - H/o C diff toxin negative PCR positive status at [facility]. Took a course of fidaxomyxin x 10 days. C. diff was negative on 08/14/2018 at [facility] - H/o cholecystectomy heme/oncology - S/p CT guided bone marrow aspiration and biopsy 08/20/2018 - Microcytic anemia requiring pRBC d/t acute blood loss - H/o BUE and RLE DVT, s/p IVC filter in January 2018 - H/o Hodgkin lymphoma diagnosed in 2006 - H/o thyroid CA diagnosed in 2005, s/p resection, chemo and XRT - IVC filter placement - +Family hx of cancer (father of stomach CA, mother of lymphoma, paternal uncle had breast CA and 12 yo daughter has h/o brain tumor s/p surgery and resulting blindness) , renal - h/o UTI due to ESBL+E. coli other conditions - a painful ulcer at frenulum, recurrent. According to Pt, topical steroid would worsen the pain. HIV negative, RPR non reactive - s/p bilateral conjunctivitis - improving with Cipro eye drops - Hypothyroidism - HLD - OA - Depression/anxiety - H/o x2 - Allergy to PCN and vancomycin (reaction unknown) recommendations: - pending results: coccidioidomycosis serology, and sputum fungal culture (in process. growing kaley so far), 1,0-ozna-v-glucan - for possible mucositis due to herpes, I ordered herpes I and 2 by PCR and instructed Pt's FERNANDO Marie to swab the ulcer. After that, start a trial of PO valacyclovir, ordered for 5 days. Pt may not feel symptomatic relief for the fir st 3 days. This was discussed with Pt - for probable UTI, complete a trial of PO levofloxacin (08/24/2018-08/28/2018) management d/w Pt, her RN Cynthia Consultation Date/Type/Reason Admit Date/Time Aug 13, 2018 at 17:22 Initial Consult Date 08/19/18 Type of Consult ID Requesting Provider: SHAQUILLE HARRIS Date/Time of Note DATE: 08/27/18 TIME: 19:51 24 HR Interval Summary Constitutional: other (not feeling well) Detailed Summary Eyes: no complaints ENT: other (sore of the tongue is severe and Pt cannot swallow) Respiratory: pain, cough, other (hemoptysis) Cardiovascular: no complaints Gastrointestinal: no complaints Genitourinary: no complaints Musculoskeletal: no complaints Skin: no complaints Neurologic: no complaints Exam/Review of Systems Exam Vitals Vital Signs Date Temp Pulse Resp B/P (MAP) Pulse Ox O2 O2 Flow FiO2 Time Delivery Rate 08/27/18 98.4 89 19 117/68 96 15:39 (84) 08/26/18 Room Air 14:30 08/24/18 2.0 12:52 Intake and Output 08/26/18 08/26/18 08/27/18 1515:00 23:00 07:00 IntakeIntake Total 350 ml 1250 ml 2000 ml BalanceBalance 350 ml 1250 ml 2000 ml Constitutional: alert, oriented, frail Psych: no complaints, nl mood/affect Head: normocephalic, atraumatic Eyes: nl conjunctiva, nl lids ENMT: nl external ears & nose, nl nasal mucosa & septum, mucosa pink and moist, other (white ulcer of the frenulum) Neck: supple, other (not swollen) Respiratory: crackles/rales Cardiovascular: regular rate and rhythm, nl pulses Gastrointestinal: soft, non-tender; No distended, No tender Musculoskeletal: No swelling Extremities: normal pulses Neurological: CENTRAL SCHEDULER II-XII intact, nl mental status, nl speech Skin: nl turgor; No rash or lesions Results Result Diagram: 08/23/1851008/23/1811 Results 24hrs Laboratory Tests Test 08/27/18 05:21 08/27/18 08:42 Rapid Plasma Reagin NONREACTIVE Lab Scanned Report REFERENCE LAB Medications Medication Current Medications IV Flush (NS 3 ml) 3 ml PER PROTOCOL IV ; Start 08/13/18 at 20:00 Ondansetron HCl (Zofran Inj) 4 mg Q6H PRN IV NAUSEA AND/OR VOMITING Last administered on 08/27/18 13:06; Admin Dose 4 MG; Start 08/13/18 at 20:00 Duloxetine HCl (Cymbalta) 60 mg DAILY PO Last administered on 08/27/18 09:20; Admin Dose 60 MG; Start 08/14/18 at 09:00 Levothyroxine Sodium (Synthroid) 50 mcg BEFORE BREAKFAST PO Last administered on 08/27/18 06:20; Admin Dose 50 MCG; Start 08/15/18 at 07:00 Alteplase, Recombinant (Cathflo (Activase)) 2 mg MAY REPEAT X1 PRN CATHETER IF CATHETER REMAINS OCCULUDED Last administered on 08/26/18at 23:34; Admin Dose 2 MG; Start 08/15/18 at 06:00 Cholecalciferol (Vitamin D) 2,000 unit DAILY PO Last administered on 08/27/18 09:20; Admin Dose 2,000 UNIT; Start 08/17/18 at 09:00 Zinc Sulfate (Zinc Sulfate) 220 mg DAILY PO Last administered on 08/27/18 09:20; Admin Dose 220 MG; Start 08/17/18 at 09:00 Eye Lubricant (Artificial Tears Oph) 1 drop Q6H PRN BOTH EYES DRY EYES Last administered on 08/19/18 00:00; Admin Dose 1 DROP; Start 08/16/18 at 23:30 Methylnaltrexone [place] (Relistor) 12 mg Q48H SC Last administered on 08/27/18 09:21; Admin Dose 12 MG; Start 08/17/18 at 09:30 Miscellaneous Information 1 ea NOTE XX ; Start 08/17/18 at 10:30 Glucose (Glutose) 15 gm Q15M PRN PO DECREASED GLUCOSE; Start 08/17/18 at 10:30 Glucose (Glutose) 22.5 gm Q15M PRN PO DECREASED GLUCOSE; Start 08/17/18 at 1 0:30 Dextrose (D50w Syringe) 25 ml Q15M PRN IV DECREASED GLUCOSE; Start 08/17/18 at 10:30 Dextrose (D50w Syringe) 50 ml Q15M PRN IV DECREASED GLUCOSE; Start 08/17/18 at 10:30 Glucagon (Glucagen) 1 mg Q15M PRN IM DECREASED GLUCOSE; Start 08/17/18 at 10:30 Glucose (Glutose) 15 gm Q15M PRN BUCCAL DECREASED GLUCOSE; Start 08/17/18 at 10:30 Hydromorphone HCl (Dilaudid) 2 mg Q3 PRN IV SEVERE PAIN LEVEL 7-10 Last administered on 08/27/18at 18:19; Admin Dose 2 MG; Start 08/17/18 at 14:30 Lorazepam (Ativan) 1 mg Q6H PRN IV Anxiety Last administered on 08/27/18at 13:42; Admin Dose 1 MG; Start 08/18/18 at 14:30 Zolpidem Tartrate (Ambien) 10 mg QHS PRN PO INSOMNIA Last administered on 08/26/18at 21:58; Admin Dose 10 MG; Start 08/20/18 at 11:30 Phenol (Cepastat Lozenge) 1 lozenge Q1H PRN MT THROAT PAIN Last administered on 08/27/18 15:21; Admin Dose 1 LOZENGE; Start 08/21/18 at 11:00 Levofloxacin (Levaquin) 500 mg DAILY@06 NGT Last administered on 08/27/18at 06:19; Admin Dose 500 MG; Start 08/25/18 at 06:00; Stop 08/28/18 at 05:59 Pantoprazole (Protonix Tab) 40 mg BID PO Last administered on 08/27/18at 09:20; Admin Dose 40 MG; Start 08/25/18 at 09:00 Diphenhydramine HCl (Benadryl) 50 mg Q6H PRN IV ITCHING Last administered on 08/27/18at 18:19; Admin Dose 50 MG; Start 08/26/18 at 21:00 REGINA CARRASCO M.D. Aug 27, 2018 19:58
[2018-08-27 20:01] VITALS: BP 124/65; PULSE 85; RESP 19
[2018-08-27] MEDS: ZOLPIDEM 5 MG TAB PO PRN (22:03)
[2018-08-27] MEDS: VALACYCLOVIR 500 MG TAB PO SCH (23:02)
[2018-08-28] MEDS: HYDROmorphONE 2 MG/ML SYG IV PRN ×8 (00:19→21:29)
[2018-08-28] MEDS: DIPHENHYDRAMINE 50 MG INJ IV PRN ×4 (00:19→18:31)
[2018-08-28] MEDS: CEPASTAT LOZENGE MT PRN ×2 (00:19→06:18)
[2018-08-28 02:00] VITALS: BP 139/81; PULSE 88; RESP 19
[2018-08-28] MEDS: LORAZEPAM 2 MG INJ IV PRN ×2 (04:41→17:23)
[2018-08-28] MEDS: LEVOTHYROXINE 50 MCG TAB PO SCH (06:18)
[2018-08-28 08:23] VITALS: BP 126/60; PULSE 83; RESP 18
[2018-08-28] MEDS: PANTOPRAZOLE (EC) 40 MG TAB PO SCH ×2 (08:25→20:30)
[2018-08-28] MEDS: DULOXETINE 30 MG CAP DR PO SCH (08:25)
[2018-08-28] MEDS: VALACYCLOVIR 500 MG TAB PO SCH ×2 (08:25→20:30)
[2018-08-28] MEDS: ZINC SULFATE 220 MG CAP PO SCH (08:25)
[2018-08-28] MEDS: CHOLECALCIFEROL 2,000 UNIT CAP PO SCH (08:25)
[2018-08-28 15:31] VITALS: BP 128/64; PULSE 93; RESP 18
--- NOTE | 2018-08-28 16:58 | CONS ---
Assessment/Plan Assessment/Plan Assessment/Plan (Daily) #h/o Lymphoma -thus far there are no lesions that can be biopsied and it does not appear she has active cancer #Anemia -Hgb Electrophoresis - confirms B- thalassemia trait with Anemia -pt has had microcytic anemia requiring transfusions for years -will order a bone marrow bx at this time- pending -anemia panel-anemia #Hemoptysis, recurrent. -s/p unremarkable bronchoscopy at [facility] -s/p unremarkable flexible laryngoscopy 02/05/17 at [facility] -CT Chest pulmonary nodules are noted but are too small to biopsy --ID workup pending for pulmonary nodules- Numerous tiny lung nodules, increased in number from the chest CT dated May 22, 2018, with largest measuring 0.3 cm in the left apex - 02/2018- negative TB workup -08/21/18-CT Chest Angio- no new changes. will do Follow-up CT in X 3-4 months to insure stability as recommended - 08/24/18- Repeat bronchoscopy - wnl - Given her paltelets and coag panel are wnl; Bronchoscopy is wnl #pancolitis. -Colonoscopy on 08/17/2018 showed patchy colitis. bx was negative -Stool positive for Giardia- pt on vancomycin and flagyl Patient seen in collaboration with Dr Brown. Dw Staff Consultation Date/Type/Reason Admit Date/Time Aug 13, 2018 at 17:22 Initial Consult Date 08/19/18 Type of Consult ONCOLOGY Reason for Consultation h/o Lymphoma Requesting Provider: SHAQUILLE HARRIS Date/Time of Note DATE: 08/28/18 TIME: 16:52 24 HR Interval Summary Free Text/Dictation c.o coughing blood on/off no new event reported last night Detailed Summary Eyes: no complaints ENT: no complaints Respiratory: shortness of breath Cardiovascular: no complaints Gastrointestinal: no complaints Genitourinary: no complaints Musculoskeletal: no complaints Skin: no complaints Neurologic: no complaints Psychological: nl mood/affect Exam/Review of Systems Exam Vitals Vital Signs Date Temp Pulse Resp B/P (MAP) Pulse Ox O2 O2 Flow FiO2 Time Delivery Rate 08/28/18 98.0 93 18 128/64 99 Room Air 15:31 (85) 08/24/18 2.0 12:52 Intake and Output 08/27/18 08/27/18 08/28/18 1515:00 23:00 07:00 IntakeIntake Total 480 ml 240 ml BalanceBalance 480 ml 240 ml Constitutional: alert, well developed Psych: nl mood/affect Head: normocephalic Eyes: nl conjunctiva, nl lids ENMT: nl external ears & nose Neck: non-tender Respiratory: clear to auscultation Cardiovascular: nl pulses, other (s1s2) Gastrointestinal: soft, non-tender Musculoskeletal: nl extremities to inspection Extremities: normal pulses Neurological: nl speech, other (alert/responsive) Skin: nl turgor Lymph: nontender Medications Medication Current Medications IV Flush (NS 3 ml) 3 ml PER PROTOCOL IV ; Start 08/13/18 at 20:00 Ondansetron HCl (Zofran Inj) 4 mg Q6H PRN IV NAUSEA AND/OR VOMITING Last administered on 08/27/18 13:06; Admin Dose 4 MG; Start 08/13/18 at 20:00 Duloxetine HCl (Cymbalta) 60 mg DAILY PO Last administered on 08/28/18 08:25; Admin Dose 60 MG; Start 08/14/18 at 09:00 Levothyroxine Sodium (Synthroid) 50 mcg BEFORE BREAKFAST PO Last administered on 08/28/18 06:18; Admin Dose 50 MCG; Start 08/15/18 at 07:00 Alteplase, Recombinant (Cathflo (Activase)) 2 mg MAY REPEAT X1 PRN CATHETER IF CATHETER REMAINS OCCULUDED Last administered on 08/26/18 23:34; Admin Dose 2 MG; Start 08/15/18 at 06:00 Cholecalciferol (Vitamin D) 2,000 unit DAILY PO Last administered on 08/28/18 08:25; Admin Dose 2,000 UNIT; Start 08/17/18 at 09:00 Zinc Sulfate (Zinc Sulfate) 220 mg DAILY PO Last administered on 08/28/18 08:25; Admin Dose 220 MG; Start 08/17/18 at 09:00 Eye Lubricant (Artificial Tears Oph) 1 drop Q6H PRN BOTH EYES DRY EYES Last administered on 08/19/18 00:00; Admin Dose 1 DROP; Start 08/16/18 at 23:30 Methylnaltrexone [place] (Relistor) 12 mg Q48H SC Last administered on 08/27/18 09:21; Admin Dose 12 MG; Start 08/17/18 at 09:30 Miscellaneous Information 1 ea NOTE XX ; Start 08/17/18 at 10:30 Glucose (Glutose) 15 gm Q15M PRN PO DECREASED GLUCOSE; Start 08/17/18 at 10:30 Glucose (Glutose) 22.5 gm Q15M PRN PO DECREASED GLUCOSE; Start 08/17/18 at 10:30 Dextrose (D50w Syringe) 25 ml Q15M PRN IV DECREASED GLUCOSE; Start 08/17/18 at 10:30 Dextrose (D50w Syringe) 50 ml Q15M PRN IV DECREASED GLUCOSE; Start 08/17/18 at 10:30 Glucagon (Glucagen) 1 mg Q15M PRN IM DECREASED GLUCOSE; Start 08/17/18 at 10:30 Glucose (Glutose) 15 gm Q15M PRN BUCCAL DECREASED GLUCOSE; Start 08/17/18 at 10:30 Hydromorphone HCl (Dilaudid) 2 mg Q3 PRN IV SEVERE PAIN LEVEL 7-10 Last administered on 08/28/18 15:29; Admin Dose 2 MG; Start 08/17/18 at 14:30 Lorazepam (Ativan) 1 mg Q6H PRN IV Anxiety Last administered on 08/28/18 04:41; Admin Dose 1 MG; Start 08/18/18 at 14:30 Zolpidem Tartrate (Ambien) 10 mg QHS PRN PO INSOMNIA Last administered on 08/27/18 22:03; Admin Dose 10 MG; Start 08/20/18 at 11:30 Phenol (Cepastat Lozenge) 1 lozenge Q1H PRN MT THROAT PAIN Last administered on 08/28/18 06:18; Admin Dose 1 LOZENGE; Start 08/21/18 at 11:00 Pantoprazole (Protonix Tab) 40 mg BID PO Last administered on 08/28/18 08:25; Admin Dose 40 MG; Start 08/25/18 at 09:00 Diphenhydramine HCl (Benadryl) 50 mg Q6H PRN IV ITCHING Last administered on 08/28/18 12:18; Admin Dose 50 MG; Start 08/26/18 at 21:00 Valacyclovir HCl (Valtrex) 1,000 mg BID PO Last administered on 2/2/19at 08:25; Admin Dose 1,000 MG; Start 08/27/18 at 21:00; Stop 09/01/18 at 20:59 SULEMA WRIGHT Aug 28, 2018 4:58 pm
--- NOTE | 2018-08-28 17:04 | PN ---
Date/Time of Note Date/Time of Note DATE: 08/28/18 TIME: 17:03 Assessment/Plan VTE Prophylaxis Risk score (from [facility]0 risk: 8 SCD applied (from [facility]): No SCD contraindicated: low risk/ambulating Pharmacological prophylaxis: NA/contraindicated Pharm contraindication: bleeding Lines/Catheters IV Catheter Type (from [facility]): PICC Line Central line still needed: Yes Urinary Cath still in place: No Assessment/Plan Hospital Course A/P 1. Hemoptysis? bronch was completely nrml. From past PE? No pathological lesions or scars. Will ask hematology for opinion on possible coagulopathy. 2. H/o HL '08- chemo/ xrt; repeat chemo ' [facility]. Sp BmBx-appears negative. 3. Ho PE/ Dvt, ivc filter 4. resolved Diarrhea/ giardia; Rxed 5. H//o c diff 6. H/o thyroid nodule? 5. UTI 6. S: feels ok; still bleeding. no dyspnea/ fever 08/24: Events noted still having hemoptysis. No hematuria 08/25: Hemoptysis again this morning? Patient denies any hematemesis or epista xis 08/26: Recurrent hemoptysis this morning. No dyspnea fever 08/27: Still having hemoptysis? No hematochezia melena hematuria or epistaxis. No dyspnea fever. 08/28: Events noted. She is worried about her hemoptysis. O: vss PE No pallor Regular Clear Benign No edema Exam/Review of Systems Exam Vitals Vital Signs Date Temp Pulse Resp B/P (MAP) Pulse Ox O2 O2 Flow FiO2 Time Delivery Rate 08/28/18 98.0 93 18 128/64 99 Room Air 15:31 (85) 08/24/18 2.0 12:52 Intake and Output 08/27/18 08/27/18 08/28/18 1414:59 22:59 06:59 IntakeIntake Total 480 ml 240 ml BalanceBalance 480 ml 240 ml Medications Medication Current Medications IV Flush (NS 3 ml) 3 ml PER PROTOCOL IV ; Start 08/13/18 at 20:00 Ondansetron HCl (Zofran Inj) 4 mg Q6H PRN IV NAUSEA AND/OR VOMITING Last administered on 08/27/18at 13:06; Admin Dose 4 MG; Start 08/13/18 at 20:00 Duloxetine HCl (Cymbalta) 60 mg DAILY PO Last administered on 08/28/18 08:25; Admin Dose 60 MG; Start 08/14/18 at 09:00 Levothyroxine Sodium (Synthroid) 50 mcg BEFORE BREAKFAST PO Last administered on 08/28/18 06:18; Admin Dose 50 MCG; Start 08/15/18 at 07:00 Alteplase, Recombinant (Cathflo (Activase)) 2 mg MAY REPEAT X1 PRN CATHETER IF CATHETER REMAINS OCCULUDED Last administered on 08/26/18 23:34; Admin Dose 2 MG; Start 08/15/18 at 06:00 Cholecalciferol (Vitamin D) 2,000 unit DAILY PO Last administered on 08/28/18 08:25; Admin Dose 2,000 UNIT; Start 08/17/18 at 09:00 Zinc Sulfate (Zinc Sulfate) 220 mg DAILY PO Last administered on 08/28/18 08:25; Admin Dose 220 MG; Start 08/17/18 at 09:00 Eye Lubricant (Artificial Tears Oph) 1 drop Q6H PRN BOTH EYES DRY EYES Last administered on 08/19/18at 00:00; Admin Dose 1 DROP; Start 08/16/18 at 23:30 Methylnaltrexone [place] (Relistor) 12 mg Q48H SC Last administered on 08/27/18 09:21; Admin Dose 12 MG; Start 08/17/18 at 09:30 Miscellaneous Information 1 ea NOTE XX ; Start 08/17/18 at 10:30 Glucose (Glutose) 15 gm Q15M PRN PO DECREASED GLUCOSE; Start 08/17/18 at 10:30 Glucose (Glutose) 22.5 gm Q15M PRN PO DECREASED GLUCOSE; Start 08/17/18 at 10:30 Dextrose (D50w Syringe) 25 ml Q15M PRN IV DECREASED GLUCOSE; Start 08/17/18 at 10:30 Dextrose (D50w Syringe) 50 ml Q15M PRN IV DECREASED GLUCOSE; Start 08/17/18 at 10:30 Glucagon (Glucagen) 1 mg Q15M PRN IM DECREASED GLUCOSE; Start 08/17/18 at 10:30 Glucose (Glutose) 15 gm Q15M PRN BUCCAL DECREASED GLUCOSE; Start 08/17/18 at 10:30 Hydromorphone HCl (Dilaudid) 2 mg Q3 PRN IV SEVERE PAIN LEVEL 7-10 Last administered on 08/28/18 15:29; Admin Dose 2 MG; Start 08/17/18 at 14:30 Lorazepam (Ativan) 1 mg Q6H PRN IV Anxiety Last administered on 08/28/18 04:41; Admin Dose 1 MG; Start 08/18/18 at 14:30 Zolpidem Tartrate (Ambien) 10 mg QHS PRN PO INSOMNIA Last administered on 08/27/18 22:03; Admin Dose 10 MG; Start 08/20/18 at 11:30 Phenol (Cepastat Lozenge) 1 lozenge Q1H PRN MT THROAT PAIN Last administered on 08/28/18 06:18; Admin Dose 1 LOZENGE; Start 08/21/18 at 11:00 Pantoprazole (Protonix Tab) 40 mg BID PO Last administered on 08/28/18 08:25; Admin Dose 40 MG; Start 08/25/18 at 09:00 Diphenhydramine HCl (Benadryl) 50 mg Q6H PRN IV ITCHING Last administered on 08/28/18 12:18; Admin Dose 50 MG; Start 08/26/18 at 21:00 Valacyclovir HCl (Valtrex) 1,000 mg BID PO Last administered on 08/28/18 08:25; Admin Dose 1,000 MG; Start 08/27/18 at 21:00; Stop 09/01/18 at 20:59 LEON CORONA MD Aug 28, 2018 17:04
--- NOTE | 2018-08-28 17:26 | CONS ---
[facility] HCIS Consult Follow-up Patient Name: Khadijah Masters Unit Number: [id number] Date of : 1965 Patient Status: Admitted Inpatient Attending Doctor: Mainor Lopez MD Edit: REGINA HUTCHINSON M.D. on 09/08/18 @ 01:55 Evangelina: I discussed the management with SILVANO Apple and agree with below Assessment/Plan Assessment/Plan Hospital Course (Demo Recall) sepsis, bloodstream infection - H/o "bacteremia due to enterococci" according to progress notes at [facility], but the actual microbiology report indicated blood culture was positive for ESBL+E. 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 - according to the microbiology report at [facility], Pt had ESBL+E. coli in her respiratory culture. Sputum cultures for AFB and fungi were negative at 8 weeks and at 4 weeks respectively at [facility] - Pt had negative bronchoscopy in 05/2019 at [facility], another at in 2017, and on 08/25/2018 at [facility] (no e/o bronchial airway bleeding according to Dr. Bello - Numerous tiny lung nodules, increased in number from the chest CT dated May 22, 2018, with largest measuring 0.3 cm in the left apex - so far: aspergillus antibody not detected, HIV negative GI - Delgado-colitis per CT - S/p sigmoidoscopy with biopsy 08/17/2018; path showed no e/o colitis or malignancy from transverse colon and rectum biopsies - S/p bloody diarrhea d/t Giardia; Pt took metronidazolel for Giardia (08/14/2018-08/21/2018) in 07/2018. - H/o C diff toxin negative PCR positive status at [facility]. Took a course of fidaxomyxin x 10 days. C. diff was negative on 08/14/2018 at [facility] - H/o cholecystectomy heme/oncology - S/p CT guided bone marrow aspiration and biopsy 08/20/2018 - Microcytic anemia requiring pRBC d/t acute blood loss - H/o BUE and RLE DVT, s/p IVC filter in January 2018 - H/o Hodgkin lymphoma diagnosed in 2006 - H/o thyroid CA diagnosed in 2005, s/p resection, chemo and XRT - IVC filter placement - +Family hx of cancer (father of stomach CA, mother of lymphoma, paternal uncle had breast CA and 12 yo daughter has h/o brain tumor s/p surgery and resulting blindness) , renal - h/o UTI due to ESBL+E. coli other conditions - a painful ulcer at frenulum, recurrent. According to Pt, topical steroid would worsen the pain. HIV negative, RPR non reactive - s/p bilateral conjunctivitis - improving with Cipro eye drops - Hypothyroidism - HLD - OA - Depression/anxiety - H/o x2 - Allergy to PCN and vancomycin (reaction unknown) Recommendations: - pending results: coccidioidomycosis serology, and sputum fungal culture (in process. growing kaley so far), 1,3-rdvu-q-glucan. herpes 1 and 2 by PCR - continue trial of PO valacyclovir, ordered for 5 days. Pt may not feel symptomatic relief for the first 3 days. This was discussed with Pt - for probable UTI, complete a trial of PO levofloxacin today (08/24/2018- 08/28/2018) Management d/w patient, FERNANDO Chen, and with Dr. Hutchinson Consultation Date/Type/Reason Admit Date/Time Aug 13, 2018 at 17:22 Initial Consult Date 08/19/18 Type of Consult Infectious Disease Requesting Provider: SHAQUILLE HARRIS Date/Time of Note DATE: 08/28/18 TIME: 17:25 24 HR Interval Summary Free Text/Dictation C/o no appetite, tongue ulcer, upper back/bilateral shoulder pain with coughing, intermittent mild SOB, and persistent hemoptysis. Currently denies pain or SOB. Exam/Review of Systems Exam Vitals Vital Signs Date Temp Pulse Resp B/P (MAP) Pulse Ox O2 O2 Flow FiO2 Time Delivery Rate 2/2/19 98.0 93 18 128/64 99 Room Air 15:31 (85) 08/24/18 2.0 12:52 Intake and Output 08/27/18 08/27/18 08/28/18 1515:00 23:00 07:00 IntakeIntake Total 480 ml 240 ml BalanceBalance 480 ml 240 ml Constitutional: alert, oriented, well developed, frail Psych: nl mood/affect Head: normocephalic, atraumatic Eyes: nl conjunctiva, nl lids, nl sclera ENMT: nl external ears & nose, nl nasal mucosa & septum, mucosa pink and moist, other (white ulcer of the frenulum linguae) Neck: supple, non-tender Respiratory: normal air movement, crackles/rales, other (hemoptysis noted - pt is putting ) Cardiovascular: regular rate and rhythm, nl pulses Gastrointestinal: soft, non-tender; No distended Musculoskeletal: nl extremities to inspection; No swelling Extremities: normal pulses Neurological: nl mental status, nl speech Skin: nl turgor; No rash or lesions Medications Medication Current Medications IV Flush (NS 3 ml) 3 ml PER PROTOCOL IV ; Start 08/13/18 at 20:00 Ondansetron HCl (Zofran Inj) 4 mg Q6H PRN IV NAUSEA AND/OR VOMITING Last administered on 08/27/18 13:06; Admin Dose 4 MG; Start 08/13/18 at 20:00 Duloxetine HCl (Cymbalta) 60 mg DAILY PO Last administered on 08/28/18 08:25; Admin Dose 60 MG; Start 08/14/18 at 09:00 Levothyroxine Sodium (Synthroid) 50 mcg BEFORE BREAKFAST PO Last administered on 08/28/18 06:18; Admin Dose 50 MCG; Start 08/15/18 at 07:00 Alteplase, Recombinant (Cathflo (Activase)) 2 mg MAY REPEAT X1 PRN CATHETER IF CATHETER REMAINS OCCULUDED Last administered on 08/26/18 23:34; Admin Dose 2 MG; Start 08/15/18 at 06:00 Cholecalciferol (Vitamin D) 2,000 unit DAILY PO Last administered on 08/28/18 08:25; Admin Dose 2,000 UNIT; Start 08/17/18 at 09:00 Zinc Sulfate (Zinc Sulfate) 220 mg DAILY PO Last administered on 08/28/18 08:25; Admin Dose 220 MG; Start 08/17/18 at 09:00 Eye Lubricant (Artificial Tears Oph) 1 drop Q6H PRN BOTH EYES DRY EYES Last administered on 08/19/18 00:00; Admin Dose 1 DROP; Start 08/16/18 at 23:30 Methylnaltrexone [place] (Relistor) 12 mg Q48H SC Last administered on 08/27/18 09:21; Admin Dose 12 MG; Start 08/17/18 at 09:30 Miscellaneous Information 1 ea NOTE XX ; Start 08/17/18 at 10:30 Glucose (Glutose) 15 gm Q15M PRN PO DECREASED GLUCOSE; Start 08/17/18 at 10:30 Glucose (Glutose) 22.5 gm Q15M PRN PO DECREASED GLUCOSE; Start 08/17/18 at 10:30 Dextrose (D50w Syringe) 25 ml Q15M PRN IV DECREASED GLUCOSE; Start 08/17/18 at 10:30 Dextrose (D50w Syringe) 50 ml Q15M PRN IV DECREASED GLUCOSE; Start 08/17/18 at 10:30 Glucagon (Glucagen) 1 mg Q15M PRN IM DECREASED GLUCOSE; Start 08/17/18 at 10:30 Glucose (Glutose) 15 gm Q15M PRN BUCCAL DECREASED GLUCOSE; Start 08/17/18 at 10:30 Hydromorphone HCl (Dilaudid) 2 mg Q3 PRN IV SEVERE PAIN LEVEL 7-10 Last administered on 08/28/18 15:29; Admin Dose 2 MG; Start 08/17/18 at 14:30 Lorazepam (Ativan) 1 mg Q6H PRN IV Anxiety Last administered on 08/28/18 17:23; Admin Dose 1 MG; Start 08/18/18 at 14:30 Zolpidem Tartrate (Ambien) 10 mg QHS PRN PO INSOMNIA Last administered on 08/27/18 22:03; Admin Dose 10 MG; Start 08/20/18 at 11:30 Phenol (Cepastat Lozenge) 1 lozenge Q1H PRN MT THROAT PAIN Last administered on 08/28/18 06:18; Admin Dose 1 LOZENGE; Start 08/21/18 at 11:00 Pantoprazole (Protonix Tab) 40 mg BID PO Last administered on 08/28/18 08:25; Admin Dose 40 MG; Start 08/25/18 at 09:00 Diphenhydramine HCl (Benadryl) 50 mg Q6H PRN IV ITCHING Last administered on 08/28/18 12:18; Admin Dose 50 MG; Start 08/26/18 at 21:00 Valacyclovir HCl (Valtrex) 1,000 mg BID PO Last administered on 08/28/18 08:25; Admin Dose 1,000 MG; Start 08/27/18 at 21:00; Stop 09/01/18 at 20:59 RICHARD APPLE NP Aug 28, 2018 17:26
[2018-08-28 20:00] VITALS: BP 126/78; PULSE 89; RESP 18
[2018-08-28] MEDS: ZOLPIDEM 5 MG TAB PO PRN (20:30)
[2018-08-29] MEDS: DIPHENHYDRAMINE 50 MG INJ IV PRN ×4 (00:29→18:23)
[2018-08-29] MEDS: HYDROmorphONE 2 MG/ML SYG IV PRN ×8 (00:29→21:25)
[2018-08-29 01:26] VITALS: BP 146/81; PULSE 105
[2018-08-29] MEDS: LORAZEPAM 2 MG INJ IV PRN ×2 (01:27→13:52)
[2018-08-29 02:00] VITALS: BP 118/60; PULSE 85; RESP 18
[2018-08-29] MEDS: CEPASTAT LOZENGE MT PRN (06:35)
[2018-08-29] MEDS: LEVOTHYROXINE 50 MCG TAB PO SCH (06:35)
[2018-08-29 08:10] VITALS: BP 134/73; PULSE 86; RESP 16
[2018-08-29] MEDS: CHOLECALCIFEROL 2,000 UNIT CAP PO SCH (08:36)
[2018-08-29] MEDS: VALACYCLOVIR 500 MG TAB PO SCH ×2 (08:36→21:06)
[2018-08-29] MEDS: ZINC SULFATE 220 MG CAP PO SCH (08:36)
[2018-08-29] MEDS: DULOXETINE 30 MG CAP DR PO SCH (08:36)
[2018-08-29] MEDS: PANTOPRAZOLE (EC) 40 MG TAB PO SCH ×2 (08:37→21:06)
[2018-08-29] MEDS: METHYLNALTREXONE 12 MG/0.6 ML VIAL SC SCH (08:42)
[2018-08-29] MEDS: ONDANSETRON 4 MG INJ IV PRN (09:30)
--- NOTE | 2018-08-29 14:19 | PN ---
Date/Time of Note Date/Time of Note DATE: 08/29/18 TIME: 14:18 Assessment/Plan VTE Prophylaxis Risk score (from [facility])>0 risk: 9 SCD applied (from [facility]): No SCD contraindicated: low risk/ambulating Pharmacological prophylaxis: NA/contraindicated Pharm contraindication: bleeding Lines/Catheters IV [facility]ter Type (from [facility]): PICC Line Central line still needed: Yes Urinary Cath still in place: No Assessment/Plan Hospital Course A/P 1. Hemoptysis? bronch was completely nrml. From past PE? No pathological lesions or scars. Will ask hematology for opinion on possible coagulopathy. 2. H/o HL - chemo/ xrt; repeat chemo ' [facility]. Sp BmBx-appears negative. 3. Ho PE/ Dvt, ivc filter 4. resolved Diarrhea/ giardia; Rxed 5. H//o c diff 6. H/o thyroid nodule? 5. UTI 6. H/o H pylori; EGD- 'ulcers' within the last year. We will asked GI opinion on possibly EGD S: feels ok; still bleeding. no dyspnea/ fever 08/24: Events noted still having hemoptysis. No hematuria 08/25: Hemoptysis again this morning? Patient denies any hematemesis or epistaxis 08/26: Recurrent hemoptysis this morning. No dyspnea fever 08/27: Still having hemoptysis? No hematochezia melena hematuria or epistaxis. No dyspnea fever. 08/28: Events noted. She is worried about her hemoptysis. 08/29: Still bringing out a lot of blood. Hemoptysis versus hematemesis. Chronic stable we will consult GI. O: vss PE No pallor Regular Clear Benign No edema Result Diagram: 08/29/18 0612 08/29/18 0611 Results 24hrs Laboratory Tests Test 08/29/18 06:11 08/29/18 06:12 08/29/18 06:19 Sodium Level 139 Potassium Level 3.7 Chloride Level 104 Carbon Dioxide Level 29 Anion Gap 6 Blood Urea Nitrogen 13 Creatinine 0.45 Est Glomerular Filtrat Rate mL/min > 60 Glucose Level 100 Calcium Level 9.1 White Blood Count 5.3 # Red Blood Count 3.87 L Hemoglobin 8.8 L Hematocrit 28.0 L Mean Corpuscular Volume 72.4 L Mean Corpuscular Hemoglobin 22.7 L Mean Corpuscular Hemoglobin Concent 31.4 L Red Cell Distribution Width 16.0 H Platelet Count 212 Mean Platelet Volume 9.8 Immature Granulocytes % 0.600 H Neutrophils % 67.0 Lymphocytes % 20.9 Monocytes % 8.1 Eosinophils % 2.8 Basophils % 0.6 Nucleated Red Blood Cells % 0.0 Immature Granulocytes # 0.030 Neutrophils # 3.6 Lymphocytes # 1.1 Monocytes # 0.4 Eosinophils # 0.2 Basophils # 0.0 Nucleated Red Blood Cells # 0.0 Lab Scanned Report REFERENCE LAB Exam/Review of Systems Exam Vitals Vital Signs Date Temp Pulse Resp B/P (MAP) Pulse Ox O2 O2 Flow FiO2 Time Delivery Rate 08/29/18 98.7 86 16 134/73 97 08:10 (93) 08/29/18 Room Air 02:00 Intake and Output 08/28/18 08/28/18 08/29/18 1515:00 23:00 07:00 IntakeIntake Total 1020 ml 320 ml BalanceBalance 1020 ml 320 ml Results Results 24hrs Laboratory Tests Test 08/29/18 06:11 08/29/18 06:12 08/29/18 06:19 Sodium Level 139 Potassium Level 3.7 Chloride Level 104 Carbon Dioxide Level 29 Anion Gap 6 Blood Urea Nitrogen 13 Creatinine 0.45 Est Glomerular Filtrat Rate mL/min > 60 Glucose Level 100 Calcium Level 9.1 White Blood Count 5.3 # Red Blood Count 3.87 L Hemoglobin 8.8 L Hematocrit 28.0 L Mean Corpuscular Volume 72.4 L Mean Corpuscular Hemoglobin 22.7 L Mean Corpuscular Hemoglobin Concent 31.4 L Red Cell Distribution Width 16.0 H Platelet Count 212 Mean Platelet Volume 9.8 Immature Granulocytes % 0.600 H Neutrophils % 67.0 Lymphocytes % 20.9 Monocytes % 8.1 Eosinophils % 2.8 Basophils % 0.6 Nucleated Red Blood Cells % 0.0 Immature Granulocytes # 0.030 Neutrophils # 3.6 Lymphocytes # 1.1 Monocytes # 0.4 Eosinophils # 0.2 Basophils # 0.0 Nucleated Red Blood Cells # 0.0 Lab Scanned Report REFERENCE LAB Medications Medication Current Medications IV Flush (NS 3 ml) 3 ml PER PROTOCOL IV ; Start 08/13/18 at 20:00 Ondansetron HCl (Zofran Inj) 4 mg Q6H PRN IV NAUSEA AND/OR VOMITING Last ad ministered on 08/29/18 09:30; Admin Dose 4 MG; Start 08/13/18 at 20:00 Duloxetine HCl (Cymbalta) 60 mg DAILY PO Last administered on 08/29/18 08:36; Admin Dose 60 MG; Start 08/14/18 at 09:00 Levothyroxine Sodium (Synthroid) 50 mcg BEFORE BREAKFAST PO Last administered on 08/29/18 06:35; Admin Dose 50 MCG; Start 08/15/18 at 07:00 Alteplase, Recombinant (Cathflo (Activase)) 2 mg MAY REPEAT X1 PRN CATHETER IF CATHETER REMAINS OCCULUDED Last administered on 08/26/18 23:34; Admin Dose 2 MG; Start 08/15/18 at 06:00 Cholecalciferol (Vitamin D) 2,000 unit DAILY PO Last administered on 08/29/18 08:36; Admin Dose 2,000 UNIT; Start 08/17/18 at 09:00 Zinc Sulfate (Zinc Sulfate) 220 mg DAILY PO Last administered on 08/29/18 08:36; Admin Dose 220 MG; Start 08/17/18 at 09:00 Eye Lubricant (Artificial Tears Oph) 1 drop Q6H PRN BOTH EYES DRY EYES Last administered on 08/19/18 00:00; Admin Dose 1 DROP; Start 08/16/18 at 23:30 Methylnaltrexone [place] (Relistor) 12 mg Q48H SC Last administered on 08/29/18 08:42; Admin Dose 12 MG; Start 08/17/18 at 09:30 Miscellaneous Information 1 ea NOTE XX ; Start 08/17/18 at 10:30 Glucose (Glutose) 15 gm Q15M PRN PO DECREASED GLUCOSE; Start 08/17/18 at 10:30 Glucose (Glutose) 22.5 gm Q15M PRN PO DECREASED GLUCOSE; Start 08/17/18 at 10:30 Dextrose (D50w Syringe) 25 ml Q15M PRN IV DECREASED GLUCOSE; Start 08/17/18 at 10:30 Dextrose (D50w Syringe) 50 ml Q15M PRN IV DECREASED GLUCOSE; Start 08/17/18 at 10:30 Glucagon (Glucagen) 1 mg Q15M PRN IM DECREASED GLUCOSE; Start 08/17/18 at 10:30 Glucose (Glutose) 15 gm Q15M PRN BUCCAL DECREASED GLUCOSE; Start 08/17/18 at 10:30 Hydromorphone HCl (Dilaudid) 2 mg Q3 PRN IV SEVERE PAIN LEVEL 7-10 Last adm inistered on 08/29/18 12:20; Admin Dose 2 MG; Start 08/17/18 at 14:30 Lorazepam (Ativan) 1 mg Q6H PRN IV Anxiety Last administered on 08/29/18 13:52; Admin Dose 1 MG; Start 08/18/18 at 14:30 Zolpidem Tartrate (Ambien) 10 mg QHS PRN PO INSOMNIA Last administered on 08/28/18 20:30; Admin Dose 10 MG; Start 08/20/18 at 11:30 Phenol (Cepastat Lozenge) 1 lozenge Q1H PRN MT THROAT PAIN Last administered on 08/29/18 06:35; Admin Dose 1 LOZENGE; Start 08/21/18 at 11:00 Pantoprazole (Protonix Tab) 40 mg BID PO Last administered on 08/29/18 08:37; Admin Dose 40 MG; Start 08/25/18 at 09:00 Diphenhydramine HCl (Benadryl) 50 mg Q6H PRN IV ITCHING Last administered on 08/29/18 12:20; Admin Dose 50 MG; Start 08/26/18 at 21:00 Valacyclovir HCl (Valtrex) 1,000 mg BID PO Last administered on 08/29/18 08:36; Admin Dose 1,000 MG; Start 08/27/18 at 21:00; Stop 09/01/18 at 20:59 LEON CORONA MD Aug 29, 2018 14:19
--- NOTE | 2018-08-29 14:41 | CONS ---
[facility] HCIS Consult Follow-up Patient Name: Khadijah Masters Unit Number: [id number] Date of : 1965 Patient Status: Admitted Inpatient Attending Doctor: Mainor Lopez MD Edit: REGINA HUTCHINSON M.D. on 09/08/18 @ 01:57 Evangelina: I discussed the management with SILVANO Apple and agree with below Assessment/Plan Assessment/Plan Hospital Course (Demo Recall) sepsis, bloodstream infection - H/o "bacteremia due to enterococci" according to progress notes at [facility], but the actual microbiology report indicated blood culture was positive for ESBL+E. coli - h/o fungemia due to kaley glabrata, sensitive to fluconazole and to micafungin/caspofungin at [facility] pulm - persistent hemoptysis of unknown etiology: Pt reports negative PPD last month at [facility]. - according to the microbiology report at [facility], Pt had ESBL+E. coli in her respiratory culture. Sputum cultures for AFB and fungi were negative at 8 weeks and at 4 weeks respectively at [facility] - Pt had negative bronchoscopy in 05/2019 at [facility], another at in 2017, and on 08/25/2018 at [facility] (no e/o bronchial airway bleeding according to Dr. Bello - Numerous tiny lung nodules, increased in number from the chest CT dated May 22, 2018, with largest measuring 0.3 cm in the left apex - so far: aspergillus antibody not detected, HIV negative GI - Delgado-colitis per CT - S/p sigmoidoscopy with biopsy 08/17/2018; path showed no e/o colitis or malignancy from transverse colon and rectum biopsies - S/p bloody diarrhea d/t Giardia; Pt took metronidazolel for Giardia (08/14/2018-08/21/2018) in 07/2018. - H/o C diff toxin negative PCR positive status at [facility]. Took a course of fidaxomyxin x 10 days. C. diff was negative on 08/14/2018 at [facility] - H/o cholecystectomy heme/oncology - S/p CT guided bone marrow aspiration and biopsy 08/20/2018 - Microcytic anemia requiring pRBC d/t acute blood loss - H/o BUE and RLE DVT, s/p IVC filter in January 2018 - H/o Hodgkin lymphoma diagnosed in 2006 - H/o thyroid CA diagnosed in 2005, s/p resection, chemo and XRT - IVC filter placement - +Family hx of cancer (father of stomach CA, mother of lymphoma, paternal uncle had breast CA and 12 yo daughter has h/o brain tumor s/p surgery and resulting blindness) , renal - h/o UTI due to ESBL+E. coli other conditions - a painful ulcer at frenulum, recurrent. According to Pt, topical steroid would worsen the pain. HIV negative, RPR non reactive - s/p bilateral conjunctivitis - improving with Cipro eye drops - Hypothyroidism - HLD - OA - depression/anxiety - H/o x2 - Allergy to PCN and vancomycin (reaction unknown) Recommendations: - pending results: coccidioidomycosis serology, and sputum fungal culture (in process. growing kaley so far), 1,7-ugyo-f-glucan. herpes 1 and 2 by PCR - continue trial of PO valacyclovir (08/27/2018-), ordered for 5 days. Pt may not feel symptomatic relief for the first 3 days. This was discussed with Pt - s/p PO levofloxacin (08/24/2018-08/28/2018) for probable UTI - await further input from GI Management d/w patient, FERNANDO Chen, and with Dr. Hutchinson Consultation Date/Type/Reason Admit Date/Time Aug 13, 2018 at 17:22 Initial Consult Date 08/19/18 Type of Consult Infectious Disease Requesting Provider: SHAQUILLE HARRIS Date/Time of Note DATE: 08/29/18 TIME: 14:40 24 HR Interval Summary Free Text/Dictation C/o upper back and abdominal pain rating 7/10 but declines pain med. Taking Zofran for nausea with no vomiting. States she is coughing up a lot of blood, more so than yesterday. Still with poor appetite but admits to trying to force herself to eat more. Eating is also inhibited by tongue ulcer discomfort. Had 3 soft BMs today; no diarrhea. No dysuria. GI was consulted per Hospitalist note. Exam/Review of Systems Exam Vitals Vital Signs Date Temp Pulse Resp B/P (MAP) Pulse Ox O2 O2 Flow FiO2 Time Delivery Rate 08/29/18 98.7 86 16 134/73 97 08:10 (93) 08/29/18 Room Air 02:00 Intake and Output 08/28/18 08/28/18 08/29/18 1515:00 23:00 07:00 IntakeIntake Total 1020 ml 320 ml BalanceBalance 1020 ml 320 ml Exam Constitutional: alert, oriented, well developed, frail Psych: nl mood/affect Head: normocephalic, atraumatic Eyes: nl conjunctiva, nl lids, nl sclera ENMT: nl external ears & nose, nl nasal mucosa & septum, mucosa pink and moist, other (white ulcer of the frenulum linguae) Neck: supple, non-tender Respiratory: normal air movement, crackles/rales, other (hemoptysis noted in cup at bedside and in urinal at bedside) Cardiovascular: regular rate and rhythm, nl pulses Gastrointestinal: soft, non-tender; No distended Musculoskeletal: nl extremities to inspection; No swelling Extremities: normal pulses Neurological: nl mental status, nl speech Skin: nl turgor; No rash or lesions Results Result Diagram: 08/29/18 0612 08/29/18 0611 Results 24hrs Laboratory Tests Test 08/29/18 06:11 08/29/18 06:12 08/29/18 06:19 Sodium Level 139 Potassium Level 3.7 Chloride Level 104 Carbon Dioxide Level 29 Anion Gap 6 Blood Urea Nitrogen 13 Creatinine 0.45 Est Glomerular Filtrat Rate mL/min > 60 Glucose Level 100 Calcium Level 9.1 White Blood Count 5.3 # Red Blood Count 3.87 L Hemoglobin 8.8 L Hematocrit 28.0 L Mean Corpuscular Volume 72.4 L Mean Corpuscular Hemoglobin 22.7 L Mean Corpuscular Hemoglobin Concent 31.4 L Red Cell Distribution Width 16.0 H Platelet Count 212 Mean Platelet Volume 9.8 Immature Granulocytes % 0.600 H Neutrophils % 67.0 Lymphocytes % 20.9 Monocytes % 8.1 Eosinophils % 2.8 Basophils % 0.6 Nucleated Red Blood Cells % 0.0 Immature Granulocytes # 0.030 Neutrophils # 3.6 Lymphocytes # 1.1 Monocytes # 0.4 Eosinophils # 0.2 Basophils # 0.0 Nucleated Red Blood Cells # 0.0 Lab Scanned Report REFERENCE LAB Medications Medication Current Medications IV Flush (NS 3 ml) 3 ml PER PROTOCOL IV ; Start 08/13/18 at 20:00 Ondansetron HCl (Zofran Inj) 4 mg Q6H PRN IV NAUSEA AND/OR VOMITING Last administered on 08/29/18 09:30; Admin Dose 4 MG; Start 08/13/18 at 20:00 Duloxetine HCl (Cymbalta) 60 mg DAILY PO Last administered on 08/29/18 08:36; Admin Dose 60 MG; Start 08/14/18 at 09:00 Levothyroxine Sodium (Synthroid) 50 mcg BEFORE BREAKFAST PO Last administered on 08/29/18 06:35; Admin Dose 50 MCG; Start 08/15/18 at 07:00 Alteplase, Recombinant (Cathflo (Activase)) 2 mg MAY REPEAT X1 PRN CATHETER IF CATHETER REMAINS OCCULUDED Last administered on 08/26/18 23:34; Admin Dose 2 MG; Start 08/15/18 at 06:00 Cholecalciferol (Vitamin D) 2,000 unit DAILY PO Last administered on 08/29/18 08:36; Admin Dose 2,000 UNIT; Start 08/17/18 at 09:00 Zinc Sulfate (Zinc Sulfate) 220 mg DAILY PO Last administered on 08/29/18 08:36; Admin Dose 220 MG; Start 08/17/18 at 09:00 Eye Lubricant (Artificial Tears Oph) 1 drop Q6H PRN BOTH EYES DRY EYES Last administered on 08/19/18 00:00; Admin Dose 1 DROP; Start 08/16/18 at 23:30 Methylnaltrexone [place] (Relistor) 12 mg Q48H SC Last administered on 08/29/18 08:42; Admin Dose 12 MG; Start 08/17/18 at 09:30 Miscellaneous Information 1 ea NOTE XX ; Start 08/17/18 at 10:30 Glucose (Glutose) 15 gm Q15M PRN PO DECREASED GLUCOSE; Start 08/17/18 at 10:30 Glucose (Glutose) 22.5 gm Q15M PRN PO DECREASED GLUCOSE; Start 08/17/18 at 10:30 Dextrose (D50w Syringe) 25 ml Q15M PRN IV DECREASED GLUCOSE; Start 08/17/18 at 10:30 Dextrose (D50w Syringe) 50 ml Q15M PRN IV DECREASED GLUCOSE; Start 08/17/18 at 10:30 Glucagon (Glucagen) 1 mg Q15M PRN IM DECREASED GLUCOSE; Start 08/17/18 at 10:30 Glucose (Glutose) 15 gm Q15M PRN BUCCAL DECREASED GLUCOSE; Start 08/17/18 at 10:30 Hydromorphone HCl (Dilaudid) 2 mg Q3 PRN IV SEVERE PAIN LEVEL 7-10 Last administered on 08/29/18 12:20; Admin Dose 2 MG; Start 08/17/18 at 14:30 Lorazepam (Ativan) 1 mg Q6H PRN IV Anxiety Last administered on 08/29/18 13:52; Admin Dose 1 MG; Start 08/18/18 at 14:30 Zolpidem Tartrate (Ambien) 10 mg QHS PRN PO INSOMNIA Last administered on 08/28/18 20:30; Admin Dose 10 MG; Start 08/20/18 at 11:30 Phenol (Cepastat Lozenge) 1 lozenge Q1H PRN MT THROAT PAIN Last administered on 08/29/18 06:35; Admin Dose 1 LOZENGE; Start 08/21/18 at 11:00 Pantoprazole (Protonix Tab) 40 mg BID PO Last administered on 08/29/18 08:37; Admin Dose 40 MG; Start 08/25/18 at 09:00 Diphenhydramine HCl (Benadryl) 50 mg Q6H PRN IV ITCHING Last administered on 08/29/18 12:20; Admin Dose 50 MG; Start 08/26/18 at 21:00 Valacyclovir HCl (Valtrex) 1,000 mg BID PO Last administered on 08/29/18 08:36; Admin Dose 1,000 MG; Start 08/27/18 at 21:00; Stop 09/01/18 at 20:59 RICHARD APPLE NP Aug 29, 2018 14:41
[2018-08-29 14:53] VITALS: BP 127/75; PULSE 96; RESP 16
[2018-08-29 20:05] VITALS: BP 118/60; PULSE 96; RESP 18
[2018-08-29] MEDS: ZOLPIDEM 5 MG TAB PO PRN (21:06)
[2018-08-30] MEDS: DIPHENHYDRAMINE 50 MG INJ IV PRN ×4 (00:25→18:28)
[2018-08-30] MEDS: HYDROmorphONE 2 MG/ML SYG IV PRN ×7 (00:26→21:43)
[2018-08-30 01:58] VITALS: BP 114/59; PULSE 77; RESP 18
--- NOTE | 2018-08-30 04:39 | CONS ---
Assessment/Plan Assessment/Plan Assessment/Plan (Daily) #h/o Lymphoma -thus far there are no lesions that can be biopsied and it does not appear she has active cancer #Anemia-hb 8.8 today -Hgb Electrophoresis - confirms B- thalassemia trait with Anemia -pt has had microcytic anemia requiring transfusions for years -will order a bone marrow bx at this time- pending -anemia panel-anemia #Hemoptysis, recurrent. -s/p unremarkable bronchoscopy at [facility] -s/p unremarkable flexible laryngoscopy 02/05/17 at [facility] -CT Chest pulmonary nodules are noted but are too small to biopsy --ID workup pending for pulmonary nodules- Numerous tiny lung nodules, increased in number from the chest CT dated May 22, 2018, with largest measuring 0.3 cm in the left apex - 02/2018- negative TB workup -08/21/18-CT Chest Angio- no new changes. will do Follow-up CT in X 3-4 months to insure stability as recommended - 08/24/18- Repeat bronchoscopy - wnl - Given her paltelets and coag panel are wnl; Bronchoscopy is wnl #pancolitis. -Colonoscopy on 08/17/2018 showed patchy colitis. bx was negative -Stool positive for Giardia- pt on vancomycin and flagyl Patient seen in collaboration with Dr Brown. Dw Staff Consultation Date/Type/Reason Admit Date/Time Aug 13, 2018 at 5:22 pm Initial Consult Date 08/19/18 Type of Consult ONCOLOGY Reason for Consultation HX LYMPHOMA Requesting Provider: SHAQUILLE HARRIS Date/Time of Note DATE: 08/30/18 TIME: 04:39 24 HR Interval Summary Free Text/Dictation LATE ENTRY- 08/29/2018 C/o coughing blood - apurva 400 ml was couhed up last night; Hgb 8.8 today; pulmonary follows Detailed Summary Eyes: no complaints ENT: no complaints Respiratory: cough (with blood) Cardiovascular: no complaints Gastrointestinal: no complaints Genitourinary: no complaints Musculoskeletal: other (generelized weakness) Psychological: nl mood/affect Immunologic: no complaints Exam/Review of Systems Exam Vitals Vital Signs Date Temp Pulse Resp B/P (MAP) Pulse Ox O2 O2 Flow FiO2 Time Delivery Rate 08/30/18 98.0 77 18 114/59 95 01:58 (77) 08/29/18 Room Air 02:00 Intake and Output 08/29/18 08/29/18 08/30/18 1414:59 22:59 06:59 IntakeIntake Total 2000 ml 800 ml BalanceBalance 2000 ml 800 ml Constitutional: alert, well developed Psych: nl mood/affect Head: atraumatic Eyes: EOMI, nl lids, nl sclera ENMT: nl external ears & nose Neck: non-tender Respiratory: diminished breath sounds (bilaterally) Cardiovascular: nl pulses, other (s1s2) Gastrointestinal: soft, non-tender Musculoskeletal: nl extremities to inspection Neurological: nl speech, other (alert, responsive) Lymph: nontender Results Result Diagram: 08/29/18 0612 08/29/18 0611 Results 24hrs Laboratory Tests Test 08/29/18 06:11 08/29/18 06:12 08/29/18 06:19 Sodium Level 139 Potassium Level 3.7 Chloride Level 104 Carbon Dioxide Level 29 Anion Gap 6 Blood Urea Nitrogen 13 Creatinine 0.45 Est Glomerular Filtrat Rate mL/min > 60 Glucose Level 100 Calcium Level 9.1 White Blood Count 5.3 # Red Blood Count 3.87 L Hemoglobin 8.8 L Hematocrit 28.0 L Mean Corpuscular Volume 72.4 L Mean Corpuscular Hemoglobin 22.7 L Mean Corpuscular Hemoglobin Concent 31.4 L Red Cell Distribution Width 16.0 H Platelet Count 212 Mean Platelet Volume 9.8 Immature Granulocytes % 0.600 H Neutrophils % 67.0 Lymphocytes % 20.9 Monocytes % 8.1 Eosinophils % 2.8 Basophils % 0.6 Nucleated Red Blood Cells % 0.0 Immature Granulocytes # 0.030 Neutrophils # 3.6 Lymphocytes # 1.1 Monocytes # 0.4 Eosinophils # 0.2 Basophils # 0.0 Nucleated Red Blood Cells # 0.0 Lab Scanned Report REFERENCE LAB Medications Medication Current Medications IV Flush (NS 3 ml) 3 ml PER PROTOCOL IV ; Start 08/13/18 at 20:00 Ondansetron HCl (Zofran Inj) 4 mg Q6H PRN IV NAUSEA AND/OR VOMITING Last admi nistered on 08/29/18at 09:30; Admin Dose 4 MG; Start 08/13/18 at 20:00 Duloxetine HCl (Cymbalta) 60 mg DAILY PO Last administered on 08/29/18at 08:36; Admin Dose 60 MG; Start 08/14/18 at 09:00 Levothyroxine Sodium (Synthroid) 50 mcg BEFORE BREAKFAST PO Last administered on 08/29/18 06:35; Admin Dose 50 MCG; Start 08/15/18 at 07:00 Alteplase, Recombinant (Cathflo (Activase)) 2 mg MAY REPEAT X1 PRN CATHETER IF CATHETER REMAINS OCCULUDED Last administered on 08/26/18 23:34; Admin Dose 2 MG; Start 08/15/18 at 06:00 Cholecalciferol (Vitamin D) 2,000 unit DAILY PO Last administered on 08/29/18 08:36; Admin Dose 2,000 UNIT; Start 08/17/18 at 09:00 Zinc Sulfate (Zinc Sulfate) 220 mg DAILY PO Last administered on 08/29/18 08:36; Admin Dose 220 MG; Start 08/17/18 at 09:00 Eye Lubricant (Artificial Tears Oph) 1 drop Q6H PRN BOTH EYES DRY EYES Last administered on 08/19/18 00:00; Admin Dose 1 DROP; Start 08/16/18 at 23:30 Methylnaltrexone [place] (Relistor) 12 mg Q48H SC Last administered on 08/29/18 08:42; Admin Dose 12 MG; Start 08/17/18 at 09:30 Miscellaneous Information 1 ea NOTE XX ; Start 08/17/18 at 10:30 Glucose (Glutose) 15 gm Q15M PRN PO DECREASED GLUCOSE; Start 08/17/18 at 10:30 Glucose (Glutose) 22.5 gm Q15M PRN PO DECREASED GLUCOSE; Start 08/17/18 at 10:30 Dextrose (D50w Syringe) 25 ml Q15M PRN IV DECREASED GLUCOSE; Start 08/17/18 at 10:30 Dextrose (D50w Syringe) 50 ml Q15M PRN IV DECREASED GLUCOSE; Start 08/17/18 at 10:30 Glucagon (Glucagen) 1 mg Q15M PRN IM DECREASED GLUCOSE; Start 08/17/18 at 10:30 Glucose (Glutose) 15 gm Q15M PRN BUCCAL DECREASED GLUCOSE; Start 08/17/18 at 10:30 Hydromorphone HCl (Dilaudid) 2 mg Q3 PRN IV SEVERE PAIN LEVEL 7-10 Last admin istered on 08/30/18 03:36; Admin Dose 2 MG; Start 08/17/18 at 14:30 Lorazepam (Ativan) 1 mg Q6H PRN IV Anxiety Last administered on 08/29/18 13:52; Admin Dose 1 MG; Start 08/18/18 at 14:30 Zolpidem Tartrate (Ambien) 10 mg QHS PRN PO INSOMNIA Last administered on 08/29/18 21:06; Admin Dose 10 MG; Start 08/20/18 at 11:30 Phenol (Cepastat Lozenge) 1 lozenge Q1H PRN MT THROAT PAIN Last administered on 08/29/18 06:35; Admin Dose 1 LOZENGE; Start 08/21/18 at 11:00 Pantoprazole (Protonix Tab) 40 mg BID PO Last administered on 08/29/18 21:06; Admin Dose 40 MG; Start 08/25/18 at 09:00 Diphenhydramine HCl (Benadryl) 50 mg Q6H PRN IV ITCHING Last administered on 08/30/18 00:25; Admin Dose 50 MG; Start 08/26/18 at 21:00 Valacyclovir HCl (Valtrex) 1,000 mg BID PO Last administered on 08/29/18 21:06; Admin Dose 1,000 MG; Start 08/27/18 at 21:00; Stop 09/01/18 at 20:59 SULEMA WRIGHT Aug 30, 2018 4:39 am
[2018-08-30] MEDS: LEVOTHYROXINE 50 MCG TAB PO SCH (06:32)
[2018-08-30] MEDS: CEPASTAT LOZENGE MT PRN (06:39)
[2018-08-30 08:23] VITALS: BP 103/58; PULSE 76; RESP 18
[2018-08-30] MEDS: DULOXETINE 30 MG CAP DR PO SCH (08:28)
[2018-08-30] MEDS: ZINC SULFATE 220 MG CAP PO SCH (08:28)
[2018-08-30] MEDS: CHOLECALCIFEROL 2,000 UNIT CAP PO SCH (08:29)
[2018-08-30] MEDS: VALACYCLOVIR 500 MG TAB PO SCH ×2 (08:29→20:32)
[2018-08-30] MEDS: PANTOPRAZOLE (EC) 40 MG TAB PO SCH ×2 (08:29→20:32)
[2018-08-30] MEDS ORDERED: POTASSIUM CHLORIDE (SR) 20 MEQ TAB PO STA (09:13)
--- NOTE | 2018-08-30 09:16 | PN ---
Date/Time of Note Date/Time of Note DATE: 08/30/18 TIME: 09:14 Assessment/Plan VTE Prophylaxis Risk score (from Ns)>0 risk: 10 [facility]CD applied [place] [facility] No SCD contraindicated: other Pharmacological prophylaxis: NA/contraindicated Pharm contraindication: bleeding Lines/Catheters IV Catheter Type (from [facility]): PICC Line Central line still needed: Yes Urinary Cath still in place: No Assessment/Plan Hospital Course SUBJECTIVE: Continues to have hemoptysis. Denies any abdominal pain or diarrhea. OBJECTIVE: Physical Exam General: Adequately build 52 year-old female lying in bed in no apparent distress. HEENT: Normocephalic, atraumatic. Eyes: Anicteric sclerae, conjunctivae clear. ENT: Nasal septum midline, oral mucosa moist. Ulcer in the frenulum linguae. Neck supple, no JVD noticed. Respiratory: Bilaterally clear breath sounds. No use of accessory muscles of respiration. No adventitious breath sounds. Cardiovascular: S1, S2 heard. No murmurs or gallops. Abdomen: Soft and nondistended. Minimal suprapubic tenderness. Bowel sounds positive in all 4 quadrants. Genitourinary: Deferred. Extremities: No cyanosis, no clubbing, no edema. Peripheral pulses palpable. Neurologic: Cranial nerves II through XII grossly intact. The patient is awake, alert, and oriented. Skin: Normal skin turgor. No skin rashes. Labs & Vitals per chart ASSESSMENT & PLAN This is a 52-year-old female with comorbidities including Hodgkin's lymphoma of the lung, history of thyroid cancer status post thyroid surgery,chronic pain syndrome, and. The patient came to the emergency room with history of PE status post IVC filter placement abdominal pain and bloody stools. The patient's CT scan of the abdomen and pelvis was showing colitis involving the ascending, transverse, descending colon. The patient also had underlying leukocytosis and bandemia. Therefore, the patient was admitted to inpatient setting for further treatment and evaluation. 1. Acute pancolitis. -Stool studies showing Giardia. S/P Flagyl (last day 08/21/2018) -Being followed by gastroenterology and ID. -Colonoscopy on 08/17/2018 showed patchy colitis. 2. Hodgkin's lymphoma of the lung. -Being followed by Oncology. 3. History of PE. -Status post IVC filter placement. 4. Anemia. -Microcytic and hypochromic. -Monitor H&H closely. -Stool for OB x1 positive. 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 5. Chronic pain syndrome. -Pain management as per pain team. 6. Hyperglycemia. -Etiology unclear. -Hemoglobin A1c within normal limits although this could be the glycosylated hemoglobin from the transfused (donor) blood. -The patient was told by her primary care provider previously that she is borderline diabetic. -Started the patient on sliding scale insulin on 08/17/2018. -Stopped the patients insulin SSI on 08/21/2018 once the hyperglycemia was resolved. 7. Hemoptysis on 08/18/2018. -Being followed by Pulmonology. -S/P bronchoscopy on 08/24/2018 that was unremarkable. 8. Ulcer of the frenulum linguae. -Continue management as per ID. 8. Fluids, electrolytes, and nutrition. -Soft diet. 9. DVT prophylaxis -Bilateral SCDs. 10. Plan. -Continue pain control. -Reconsult gastroenterology because of significant hemoptysis/hematemesis. -Replete potassium. The patient was seen in collaboration with Dr. Montes. Result Diagram: 08/30/18 0518 08/30/18 0518 Results 24hrs Laboratory Tests Test 08/30/18 05:18 White Blood Count 3.4 #L Red Blood Count 3.33 L Hemoglobin 7.6 L Hematocrit 24.4 L Mean Corpuscular Volume 73.3 L Mean Corpuscular Hemoglobin 22.8 L Mean Corpuscular Hemoglobin Concent 31.1 L Red Cell Distribution Width 15.8 H Platelet Count 183 Mean Platelet Volume 9.9 Immature Granulocytes % 0.600 H Neutrophils % 62.3 Lymphocytes % 23.4 Monocytes % 10.8 Eosinophils % 2.3 Basophils % 0.6 Nucleated Red Blood Cells % 0.0 Immature Granulocytes # 0.020 Neutrophils # 2.1 Lymphocytes # 0.8 Monocytes # 0.4 Eosinophils # 0.1 Basophils # 0.0 Nucleated Red Blood Cells # 0.0 Prothrombin Time 13.0 Prothrombin Time Ratio 1.0 INR International Normalized Ratio 0.97 Sodium Level 139 Potassium Level 3.2 L Chloride Level 102 Carbon Dioxide Level 28 Anion Gap 9 Blood Urea Nitrogen 17 Creatinine 0.56 Est Glomerular Filtrat Rate mL/min > 60 Glucose Level 105 Calcium Level 8.7 Phosphorus Level 4.6 Magnesium Level 1.9 Total Bilirubin 0.3 Direct Bilirubin 0.00 Indirect Bilirubin 0.3 Aspartate Amino Transf (AST/SGOT) 29 Alanine Aminotransferase (ALT/SGPT) 31 Alkaline Phosphatase 75 Total Protein 6.2 Albumin 3.5 Globulin 2.70 Albumin/Globulin Ratio 1.29 Exam/Review of Systems Exam Vitals Vital Signs Date Temp Pulse Resp B/P (MAP) Pulse Ox O2 O2 Flow FiO2 Time Delivery Rate 08/30/18 98.5 76 18 103/58 96 Room Air 08:23 (73) Intake and Output 08/29/18 08/29/18 08/30/18 1515:00 23:00 07:00 IntakeIntake Total 2000 ml 800 ml BalanceBalance 2000 ml 800 ml Results Results 24hrs Laboratory Tests Test 08/30/18 05:18 White Blood Count 3.4 #L Red Blood Count 3.33 L Hemoglobin 7.6 L Hematocrit 24.4 L Mean Corpuscular Volume 73.3 L Mean Corpuscular Hemoglobin 22.8 L Mean Corpuscular Hemoglobin Concent 31.1 L Red Cell Distribution Width 15.8 H Platelet Count 183 Mean Platelet Volume 9.9 Immature Granulocytes % 0.600 H Neutrophils % 62.3 Lymphocytes % 23.4 Monocytes % 10.8 Eosinophils % 2.3 Basophils % 0.6 Nucleated Red Blood Cells % 0.0 Immature Granulocytes # 0.020 Neutrophils # 2.1 Lymphocytes # 0.8 Monocytes # 0.4 Eosinophils # 0.1 Basophils # 0.0 Nucleated Red Blood Cells # 0.0 Prothrombin Time 13.0 Prothrombin Time Ratio 1.0 INR International Normalized Ratio 0.97 Sodium Level 139 Potassium Level 3.2 L Chloride Level 102 Carbon Dioxide Level 28 Anion Gap 9 Blood Urea Nitrogen 17 Creatinine 0.56 Est Glomerular Filtrat Rate mL/min > 60 Glucose Level 105 Calcium Level 8.7 Phosphorus Level 4.6 Magnesium Level 1.9 Total Bilirubin 0.3 Direct Bilirubin 0.00 Indirect Bilirubin 0.3 Aspartate Amino Transf (AST/SGOT) 29 Alanine Aminotransferase (ALT/SGPT) 31 Alkaline Phosphatase 75 Total Protein 6.2 Albumin 3.5 Globulin 2.70 Albumin/Globulin Ratio 1.29 Medications Medication Current Medications IV Flush (NS 3 ml) 3 ml PER PROTOCOL IV ; Start 08/13/18 at 20:00 Ondansetron HCl (Zofran Inj) 4 mg Q6H PRN IV NAUSEA AND/OR VOMITING Last administered on 08/29/18 09:30; Admin Dose 4 MG; Start 08/13/18 at 20:00 Duloxetine HCl (Cymbalta) 60 mg DAILY PO Last administered on 08/30/18 08:28; Admin Dose 60 MG; Start 08/14/18 at 09:00 Levothyroxine Sodium (Synthroid) 50 mcg BEFORE BREAKFAST PO Last administered on 08/30/18 06:32; Admin Dose 50 MCG; Start 08/15/18 at 07:00 Alteplase, Recombinant (Cathflo (Activase)) 2 mg MAY REPEAT X1 PRN CATHETER IF CATHETER REMAINS OCCULUDED Last administered on 08/26/18 23:34; Admin Dose 2 M G; Start 08/15/18 at 06:00 Cholecalciferol (Vitamin D) 2,000 unit DAILY PO Last administered on 08/30/18 08:29; Admin Dose 2,000 UNIT; Start 08/17/18 at 09:00 Zinc Sulfate (Zinc Sulfate) 220 mg DAILY PO Last administered on 08/30/18 08:28; Admin Dose 220 MG; Start 08/17/18 at 09:00 Eye Lubricant (Artificial Tears Oph) 1 drop Q6H PRN BOTH EYES DRY EYES Last administered on 08/19/18 00:00; Admin Dose 1 DROP; Start 08/16/18 at 23:30 Methylnaltrexone [place] (Relistor) 12 mg Q48H SC Last administered on 08/29/18 08:42; Admin Dose 12 MG; Start 08/17/18 at 09:30 Miscellaneous Information 1 ea NOTE XX ; Start 08/17/18 at 10:30 Glucose (Glutose) 15 gm Q15M PRN PO DECREASED GLUCOSE; Start 08/17/18 at 10:30 Glucose (Glutose) 22.5 gm Q15M PRN PO DECREASED GLUCOSE; Start 08/17/18 at 10:30 Dextrose (D50w Syringe) 25 ml Q15M PRN IV DECREASED GLUCOSE; Start 08/17/18 at 10:30 Dextrose (D50w Syringe) 50 ml Q15M PRN IV DECREASED GLUCOSE; Start 08/17/18 at 10:30 Glucagon (Glucagen) 1 mg Q15M PRN IM DECREASED GLUCOSE; Start 08/17/18 at 10:30 Glucose (Glutose) 15 gm Q15M PRN BUCCAL DECREASED GLUCOSE; Start 08/17/18 at 10:30 Hydromorphone HCl (Dilaudid) 2 mg Q3 PRN IV SEVERE PAIN LEVEL 7-10 Last administered on 08/30/18 06:31; Admin Dose 2 MG; Start 08/17/18 at 14:30 Lorazepam (Ativan) 1 mg Q6H PRN IV Anxiety Last administered on 08/29/18 13:52; Admin Dose 1 MG; Start 08/18/18 at 14:30 Zolpidem Tartrate (Ambien) 10 mg QHS PRN PO INSOMNIA Last administered on 08/29/18 21:06; Admin Dose 10 MG; Start 08/20/18 at 11:30 Phenol (Cepastat Lozenge) 1 lozenge Q1H PRN MT THROAT PAIN Last administered on 08/30/18 06:39; Admin Dose 1 LOZENGE; Start 08/21/18 at 11:00 Pantoprazole (Protonix Tab) 40 mg BID PO Last administered on 08/30/18 08:29; Admin Dose 40 MG; Start 08/25/18 at 09:00 Diphenhydramine HCl (Benadryl) 50 mg Q6H PRN IV ITCHING Last administered on 08/30/18 06:30; Admin Dose 50 MG; Start 08/26/18 at 21:00 Valacyclovir HCl (Valtrex) 1,000 mg BID PO Last administered on 08/30/18 08:29; Admin Dose 1,000 MG; Start 08/27/18 at 21:00; Stop 09/01/18 at 20:59 SUZANNE STEVENSON NP Aug 30, 2018 09:16
[2018-08-30] MEDS: LORAZEPAM 2 MG INJ IV PRN ×2 (10:03→16:02)
--- NOTE | 2018-08-30 13:32 | PN ---
Date/Time of Note Date/Time of Note DATE: 08/30/18 TIME: 13:32 Assessment/Plan VTE Prophylaxis Risk score (from Ns)>0 risk: 10 SCD applied (from Ns): No SCD contraindicated: other (scds) Pharmacological prophylaxis: other (scds) Lines/Catheters IV Catheter Type (from [facility]): PICC Line Central line still needed: Yes (meds) Urinary Cath still in place: No Assessment/Plan Hospital Course Summary Assessment and Plan: Assessment: Hemoptysis vs Hematemesis - S/p Bronchoscopy - negative Colitis, involving the ascending, transverse, descending colon. -Stool positive for Giardia- treatment completed -CDIFF neg, stool cx- prelim- coliform -Fecal leukocytes rare -O&P- neg 08/17/18 sigmoidoscopy Patchy colitis biopsies taken to rule out IBD etiology Transverse colon biopsy:focal mucin depletion and atrophy of colon crypts with increased regenerative activity, suggesting a healing erosion site. There is no evidence of acute colitis, active chronic colitis or malignancy. Rectum biopsy: Normal colon mucosa with focal acute hemorrhage in the superficial lamina propria, histologically non-specific. There is no evidence of colitis or malignancy. Leukocytosis- resolve Abdominal pain Hodgkin's lymphoma of the lung History of thyroid cancer diagnosed in 2007, status post surgery History of PE- s/p IVC filter placement Conjunctivitis OD- on ABX gtt- resolved Plan: Pt c/o Hemoptysis vs Hematemesis- no c/o melena or hematochezia- she has already been evaluated with bronchoscopy- which was negative Will plan for EGD tomorrow- discussed risks/benefits/alternatives pt verbalized understanding and is agreeable to procedure currently on PPI BID Continue collaboration with Dr. Ewing/Jakob Subjective/Free text: Course reviewed with nursing staff Patient interviewed and examined All labs, imaging and other results reviewed Pt with Hgb that is trending down. Currently no c/o abd pain ,diarrhea, constipation, or rectal bleeding. Last at about 12:30 will. Discussed plan for EGD tomorrow. PHYSICAL EXAMINATION: GENERAL: Alert & oriented x 3, in no acute distress SKIN: No lesions CHEST: Inspection within normal limits. CARDIOVASCULAR: Heart: Regular rate and rhythm RESPIRATORY: Lungs clear to auscultation and percussion, no wheezing, no rubs GASTROINTESTINAL AND LIVER: Abdomen: Soft, generalized tenderness- improved, non-distended, no hernias, no rebound tenderness, normoactive bowel sounds. Rectal: Deferred. Result Diagram: 08/30/18 0518 08/30/1818 Results 24hrs Laboratory Tests Test 08/30/18 05:18 08/30/18 10:33 White Blood Count 3.4 #L Red Blood Count 3.33 L Hemoglobin 7.6 L Hematocrit 24.4 L Mean Corpuscular Volume 73.3 L Mean Corpuscular Hemoglobin 22.8 L Mean Corpuscular Hemoglobin Concent 31.1 L Red Cell Distribution Width 15.8 H Platelet Count 183 Mean Platelet Volume 9.9 Immature Granulocytes % 0.600 H Neutrophils % 62.3 Lymphocytes % 23.4 Monocytes % 10.8 Eosinophils % 2.3 Basophils % 0.6 Nucleated Red Blood Cells % 0.0 Immature Granulocytes # 0.020 Neutrophils # 2.1 Lymphocytes # 0.8 Monocytes # 0.4 Eosinophils # 0.1 Basophils # 0.0 Nucleated Red Blood Cells # 0.0 Prothrombin Time 13.0 Prothrombin Time Ratio 1.0 INR International Normalized Ratio 0.97 Sodium Level 139 Potassium Level 3.2 L Chloride Level 102 Carbon Dioxide Level 28 Anion Gap 9 Blood Urea Nitrogen 17 Creatinine 0.56 Est Glomerular Filtrat Rate mL/min > 60 Glucose Level 105 Calcium Level 8.7 Phosphorus Level 4.6 Magnesium Level 1.9 Total Bilirubin 0.3 Direct Bilirubin 0.00 Indirect Bilirubin 0.3 Aspartate Amino Transf (AST/SGOT) 29 Alanine Aminotransferase (ALT/SGPT) 31 Alkaline Phosphatase 75 Total Protein 6.2 Albumin 3.5 Globulin 2.70 Albumin/Globulin Ratio 1.29 Lab Scanned Report REFERENCE LAB Exam/Review of Systems Exam Vitals Vital Signs Date Temp Pulse Resp B/P (MAP) Pulse Ox O2 O2 Flow FiO2 Time Delivery Rate 08/30/18 98.5 76 18 103/58 96 Room Air 08:23 (73) Intake and Output 08/29/18 08/29/18 08/30/18 1515:00 23:00 07:00 IntakeIntake Total 2000 ml 800 ml BalanceBalance 2000 ml 800 ml Results Results 24hrs Laboratory Tests Test 08/30/18 05:18 08/30/18 10:33 White Blood Count 3.4 #L Red Blood Count 3.33 L Hemoglobin 7.6 L Hematocrit 24.4 L Mean Corpuscular Volume 73.3 L Mean Corpuscular Hemoglobin 22.8 L Mean Corpuscular Hemoglobin Concent 31.1 L Red Cell Distribution Width 15.8 H Platelet Count 183 Mean Platelet Volume 9.9 Immature Granulocytes % 0.600 H Neutrophils % 62.3 Lymphocytes % 23.4 Monocytes % 10.8 Eosinophils % 2.3 Basophils % 0.6 Nucleated Red Blood Cells % 0.0 Immature Granulocytes # 0.020 Neutrophils # 2.1 Lymphocytes # 0.8 Monocytes # 0.4 Eosinophils # 0.1 Basophils # 0.0 Nucleated Red Blood Cells # 0.0 Prothrombin Time 13.0 Prothrombin Time Ratio 1.0 INR International Normalized Ratio 0.97 Sodium Level 139 Potassium Level 3.2 L Chloride Level 102 Carbon Dioxide Level 28 Anion Gap 9 Blood Urea Nitrogen 17 Creatinine 0.56 Est Glomerular Filtrat Rate mL/min > 60 Glucose Level 105 Calcium Level 8.7 Phosphorus Level 4.6 Magnesium Level 1.9 Total Bilirubin 0.3 Direct Bilirubin 0.00 Indirect Bilirubin 0.3 Aspartate Amino Transf (AST/SGOT) 29 Alanine Aminotransferase (ALT/SGPT) 31 Alkaline Phosphatase 75 Total Protein 6.2 Albumin 3.5 Globulin 2.70 Albumin/Globulin Ratio 1.29 Lab Scanned Report REFERENCE LAB Medications Medication Current Medications IV Flush (NS 3 ml) 3 ml PER PROTOCOL IV ; Start 08/13/18 at 20:00 Ondansetron HCl (Zofran Inj) 4 mg Q6H PRN IV NAUSEA AND/OR VOMITING Last administered on 08/29/18 09:30; Admin Dose 4 MG; Start 08/13/18 at 20:00 Duloxetine HCl (Cymbalta) 60 mg DAILY PO Last administered on 08/30/18 08:28; Admin Dose 60 MG; Start 08/14/18 at 09:00 Levothyroxine Sodium (Synthroid) 50 mcg BEFORE BREAKFAST PO Last administered on 08/30/18 06:32; Admin Dose 50 MCG; Start 08/15/18 at 07:00 Alteplase, Recombinant (Cathflo (Activase)) 2 mg MAY REPEAT X1 PRN CATHETER IF CATHETER REMAINS OCCULUDED Last administered on 08/26/18 23:34; Admin Dose 2 MG; Start 08/15/18 at 06:00 Cholecalciferol (Vitamin D) 2,000 unit DAILY PO Last administered on 08/30/18 08:29; Admin Dose 2,000 UNIT; Start 08/17/18 at 09:00 Zinc Sulfate (Zinc Sulfate) 220 mg DAILY PO Last administered on 08/30/18 08:28; Admin Dose 220 MG; Start 08/17/18 at 09:00 Eye Lubricant (Artificial Tears Oph) 1 drop Q6H PRN BOTH EYES DRY EYES Last administered on 08/19/18 00:00; Admin Dose 1 DROP; Start 08/16/18 at 23:30 Methylnaltrexone [place] (Relistor) 12 mg Q48H SC Last administered on 08/29/18 08:42; Admin Dose 12 MG; Start 08/17/18 at 09:30 Miscellaneous Information 1 ea NOTE XX ; Start 08/17/18 at 10:30 Glucose (Glutose) 15 gm Q15M PRN PO DECREASED GLUCOSE; Start 08/17/18 at 10:30 Glucose (Glutose) 22.5 gm Q15M PRN PO DECREASED GLUCOSE; Start 08/17/18 at 10:30 Dextrose (D50w Syringe) 25 ml Q15M PRN IV DECREASED GLUCOSE; Start 08/17/18 at 10:30 Dextrose (D50w Syringe) 50 ml Q15M PRN IV DECREASED GLUCOSE; Start 08/17/18 at 10:30 Glucagon (Glucagen) 1 mg Q15M PRN IM DECREASED GLUCOSE; Start 08/17/18 at 10:30 Glucose (Glutose) 15 gm Q15M PRN BUCCAL DECREASED GLUCOSE; Start 08/17/18 at 10:30 Hydromorphone HCl (Dilaudid) 2 mg Q3 PRN IV SEVERE PAIN LEVEL 7-10 Last administered on 08/30/18 12:34; Admin Dose 2 MG; Start 08/17/18 at 14:30 Lorazepam (Ativan) 1 mg Q6H PRN IV Anxiety Last administered on 08/30/18 10:03; Admin Dose 1 MG; Start 08/18/18 at 14:30 Zolpidem Tartrate (Ambien) 10 mg QHS PRN PO INSOMNIA Last administered on 08/29/18 21:06; Admin Dose 10 MG; Start 08/20/18 at 11:30 Phenol (Cepastat Lozenge) 1 lozenge Q1H PRN MT THROAT PAIN Last administered on 08/30/18 06:39; Admin Dose 1 LOZENGE; Start 08/21/18 at 11:00 Pantoprazole (Protonix Tab) 40 mg BID PO Last administered on 08/30/18 08:29; Admin Dose 40 MG; Start 08/25/18 at 09:00 Diphenhydramine HCl (Benadryl) 50 mg Q6H PRN IV ITCHING Last administered on 08/30/18 12:34; Admin Dose 50 MG; Start 08/26/18 at 21:00 Valacyclovir HCl (Valtrex) 1,000 mg BID PO Last administered on 08/30/18 08:29; Admin Dose 1,000 MG; Start 08/27/18 at 21:00; Stop 09/01/18 at 20:59 VADIM MCGILL Aug 30, 2018 13:32
[2018-08-30 14:25] VITALS: BP 111/64; PULSE 84; RESP 18
--- NOTE | 2018-08-30 15:52 | CONS ---
Assessment/Plan Assessment/Plan Hospital Course (Demo Recall) sepsis, bloodstream infection - H/o "bacteremia due to enterococci" according to progress notes at [facility], but the actual microbiology report indicated blood culture was positive for ESBL+E. coli - h/o fungemia due to kaley glabrata, sensitive to fluconazole and to micaf ungin/caspofungin at [facility] pulm - persistent hemoptysis of unknown etiology: Pt reports negative PPD last month at [facility]. - according to the microbiology report at [facility], Pt had ESBL+E. coli in her respiratory culture. Sputum cultures for AFB and fungi were negative at 8 weeks and at 4 weeks respectively at [facility] - Pt had negative bronchoscopy in 05/2018 at [facility], another at [facility] in 2017, and on 08/25/2018 at [facility] (no e/o bronchial airway bleeding according to Dr. Bello - Numerous tiny lung nodules, increased in number from the chest CT dated 2017, with largest measuring 0.3 cm in the left apex - so far: aspergillus antibody not detected, HIV negative, coccidioidomycosis serology negative GI - Delgado-colitis per CT - S/p sigmoidoscopy with biopsy 08/17/2018; path showed no e/o colitis or malignancy from transverse colon and rectum biopsies - S/p bloody diarrhea d/t Giardia; Pt took metronidazole for Giardia (08/14/2018- 08/21/2018) in 07/2018. - H/o C diff toxin negative PCR positive status at [facility]. Took a course of Fidaxomyxin x 10 days. C. diff was negative on 08/14/2018 at [facility] - H/o cholecystectomy heme/oncology - S/p CT guided bone marrow aspiration and biopsy 08/20/2018 - Microcytic anemia requiring PRBC d/t acute blood loss - H/o BUE and RLE DVT, s/p IVC filter in January 2018 - H/o Hodgkin lymphoma diagnosed in 2006 - H/o thyroid CA diagnosed in 2005, s/p resection, chemo and XRT - IVC filter placement - +Family hx of cancer (father of stomach CA, mother of lymphoma, paternal uncle had breast CA and 12 yo daughter has h/o brain tumor s/p surgery and resulting blindness) , renal - h/o UTI due to ESBL+E. coli other conditions - a painful ulcer at frenulum, recurrent. According to Pt, topical steroid would worsen the pain. HIV negative, RPR non reactive - s/p bilateral conjunctivitis - improved s/p Cipro eye drops (08/18/18-08/23/18) - Hypothyroidism - HLD - Hypokalemia - OA - depression/anxiety - H/o x2 - Allergy to PCN and vancomycin (reaction unknown) Recommendations: - pending results: sputum fungal culture (in process. growing kaley so far), 1,7-thfj-p-glucan. herpes 1 and 2 by PCR - continue trial of PO valacyclovir (08/27/2018-), ordered for 5 days. - s/p PO levofloxacin (08/24/2018-08/28/2018) for probable UTI - await further input from GI Management d/w patient, RN Savita, and with Dr. Hansen Consultation Date/Type/Reason Admit Date/Time Aug 13, 2018 at 17:22 Initial Consult Date 08/19/18 Type of Consult Infectious Disease Requesting Provider: SHAQUILLE HARRIS Date/Time of Note DATE: 08/30/18 TIME: 15:19 24 HR Interval Summary Free Text/Dictation C/o severe "lung pain" rating 10/10. RN reports that pt is not yet due for pain medication till 3:30pm and declined to call for breakthru pain med. Pt reports increased hemoptysis. Hgb down to 7.6 today. Denies fever, chills, SOB, n/v/d, dysuria. Coccidioidomycosis serology is negative. Exam/Review of Systems Exam Vitals Vital Signs Date Temp Pulse Resp B/P (MAP) Pulse Ox O2 O2 Flow FiO2 Time Delivery Rate 08/30/18 98.7 84 18 111/64 98 Room Air 14:25 (80) Intake and Output 08/29/18 08/29/18 08/30/18 1515:00 23:00 07:00 IntakeIntake Total 2000 ml 800 ml BalanceBalance 2000 ml 800 ml Exam Constitutional: alert, oriented, distress (tearful and in position covered with blankets), well developed, frail Psych: nl mood/affect Head: normocephalic, atraumatic Eyes: nl conjunctiva, nl lids, nl sclera ENMT: nl external ears & nose, nl nasal mucosa & septum, mucosa pink and moist, other (white ulcer of the frenulum linguae) Neck: supple, non-tender Respiratory: normal air movement, crackles/rales, other (hemoptysis noted in cup at bedside) Cardiovascular: regular rate and rhythm, nl pulses Gastrointestinal: soft, non-tender; No distended Musculoskeletal: nl extremities to inspection; No swelling Extremities: normal pulses Neurological: nl mental status, nl speech Skin: nl turgor; No rash or lesions Results Result Diagram: 08/30/18 0518 08/30/18 0518 Results 24hrs Laboratory Tests Test 08/30/18 05:18 08/30/18 10:33 White Blood Count 3.4 #L Red Blood Count 3.33 L Hemoglobin 7.6 L Hematocrit 24.4 L Mean Corpuscular Volume 73.3 L Mean Corpuscular Hemoglobin 22.8 L Mean Corpuscular Hemoglobin Concent 31.1 L Red Cell Distribution Width 15.8 H Platelet Count 183 Mean Platelet Volume 9.9 Immature Granulocytes % 0.600 H Neutrophils % 62.3 Lymphocytes % 23.4 Monocytes % 10.8 Eosinophils % 2.3 Basophils % 0.6 Nucleated Red Blood Cells % 0.0 Immature Granulocytes # 0.020 Neutrophils # 2.1 Lymphocytes # 0.8 Monocytes # 0.4 Eosinophils # 0.1 Basophils # 0.0 Nucleated Red Blood Cells # 0.0 Prothrombin Time 13.0 Prothrombin Time Ratio 1.0 INR International Normalized Ratio 0.97 Sodium Level 139 Potassium Level 3.2 L Chloride Level 102 Carbon Dioxide Level 28 Anion Gap 9 Blood Urea Nitrogen 17 Creatinine 0.56 Est Glomerular Filtrat Rate mL/min > 60 Glucose Level 105 Calcium Level 8.7 Phosphorus Level 4.6 Magnesium Level 1.9 Total Bilirubin 0.3 Direct Bilirubin 0.00 Indirect Bilirubin 0.3 Aspartate Amino Transf (AST/SGOT) 29 Alanine Aminotransferase (ALT/SGPT) 31 Alkaline Phosphatase 75 Total Protein 6.2 Albumin 3.5 Globulin 2.70 Albumin/Globulin Ratio 1.29 Lab Scanned Report REFERENCE LAB Medications Medication Current Medications IV Flush (NS 3 ml) 3 ml PER PROTOCOL IV ; Start 08/13/18 at 20:00 Ondansetron HCl (Zofran Inj) 4 mg Q6H PRN IV NAUSEA AND/OR VOMITING Last administered on 08/29/18 09:30; Admin Dose 4 MG; Start 08/13/18 at 20:00 Duloxetine HCl (Cymbalta) 60 mg DAILY PO Last administered on 08/30/18 08:28; Admin Dose 60 MG; Start 08/14/18 at 09:00 Levothyroxine Sodium (Synthroid) 50 mcg BEFORE BREAKFAST PO Last administered on 08/30/18 06:32; Admin Dose 50 MCG; Start 08/15/18 at 07:00 Alteplase, Recombinant (Cathflo (Activase)) 2 mg MAY REPEAT X1 PRN CATHETER IF CATHETER REMAINS OCCULUDED Last administered on 08/26/18 23:34; Admin Dose 2 MG; Start 08/15/18 at 06:00 Cholecalciferol (Vitamin D) 2,000 unit DAILY PO Last administered on 08/30/18 08:29; Admin Dose 2,000 UNIT; Start 08/17/18 at 09:00 Zinc Sulfate (Zinc Sulfate) 220 mg DAILY PO Last administered on 08/30/18 08:28; Admin Dose 220 MG; Start 08/17/18 at 09:00 Eye Lubricant (Artificial Tears Oph) 1 drop Q6H PRN BOTH EYES DRY EYES Last administered on 08/19/18 00:00; Admin Dose 1 DROP; Start 08/16/18 at 23:30 Methylnaltrexone [place] (Relistor) 12 mg Q48H SC Last administered on 08/29/18 08:42; Admin Dose 12 MG; Start 08/17/18 at 09:30 Miscellaneous Information 1 ea NOTE XX ; Start 08/17/18 at 10:30 Glucose (Glutose) 15 gm Q15M PRN PO DECREASED GLUCOSE; Start 08/17/18 at 10:30 Glucose (Glutose) 22.5 gm Q15M PRN PO DECREASED GLUCOSE; Start 08/17/18 at 10:30 Dextrose (D50w Syringe) 25 ml Q15M PRN IV DECREASED GLUCOSE; Start 08/17/18 at 10:30 Dextrose (D50w Syringe) 50 ml Q15M PRN IV DECREASED GLUCOSE; Start 08/17/18 at 10:30 Glucagon (Glucagen) 1 mg Q15M PRN IM DECREASED GLUCOSE; Start 08/17/18 at 10:30 Glucose (Glutose) 15 gm Q15M PRN BUCCAL DECREASED GLUCOSE; Start 08/17/18 at 10:30 Hydromorphone HCl (Dilaudid) 2 mg Q3 PRN IV SEVERE PAIN LEVEL 7-10 Last administered on 08/30/18 12:34; Admin Dose 2 MG; Start 08/17/18 at 14:30 Lorazepam (Ativan) 1 mg Q6H PRN IV Anxiety Last administered on 08/30/18 10:03; Admin Dose 1 MG; Start 08/18/18 at 14:30 Zolpidem Tartrate (Ambien) 10 mg QHS PRN PO INSOMNIA Last administered on 08/29/18 21:06; Admin Dose 10 MG; Start 08/20/18 at 11:30 Phenol (Cepastat Lozenge) 1 lozenge Q1H PRN MT THROAT PAIN Last administered on 08/30/18 06:39; Admin Dose 1 LOZENGE; Start 08/21/18 at 11:00 Pantoprazole (Protonix Tab) 40 mg BID PO Last administered on 08/30/18 08:29; Admin Dose 40 MG; Start 08/25/18 at 09:00 Diphenhydramine HCl (Benadryl) 50 mg Q6H PRN IV ITCHING Last administered on 08/30/18 12:34; Admin Dose 50 MG; Start 08/26/18 at 21:00 Valacyclovir HCl (Valtrex) 1,000 mg BID PO Last administered on 08/30/18 08:29; Admin Dose 1,000 MG; Start 08/27/18 at 21:00; Stop 09/01/18 at 20:59 RICHARD APPLE NP Aug 30, 2018 15:31
--- NOTE | 2018-08-30 18:16 | CONS ---
Assessment/Plan Assessment/Plan Assessment/Plan (Daily) #h/o Lymphoma -thus far there are no lesions that can be biopsied and it does not appear she has active cancer #Anemia-hgb 7.6 today -Hgb Electrophoresis - confirms B- thalassemia trait with Anemia -pt has had microcytic anemia requiring transfusions for years -will order a bone marrow bx at this time- pending -anemia panel-anemia positive # Hemoptysis VS Hematemesis - GI follows - plan for EGD tomorrow #Hemoptysis, recurrent. -s/p unremarkable bronchoscopy at [facility] -s/p unremarkable flexible laryngoscopy 02/05/17 at [facility] -CT Chest pulmonary nodules are noted but are too small to biopsy -ID workup pending for pulmonary nodules- Numerous tiny lung nodules, increased in number from the chest CT dated May 22, 2018, with largest measuring 0.3 cm in the left apex - 02/2018- negative TB workup -08/21/18-CT Chest Angio- no new changes. will do Follow-up CT in X 3-4 months to insure stability as recommended - 08/24/18- Repeat bronchoscopy - wnl - Given her platelets and coag panel are wnl; Bronchoscopy is wnl #pancolitis. -Colonoscopy on 08/17/2018 showed patchy colitis. bx was negative -Stool positive for Giardia- pt on vancomycin and flagyl Patient seen in collaboration with Dr Brown. Dw Staff Consultation Date/Type/Reason Admit Date/Time Aug 13, 2018 at 17:22 Initial Consult Date 08/19/18 Type of Consult ONCOLOGY Reason for Consultation HX OF LYMPHOMA Requesting Provider: SHAQUILLE HARRIS Date/Time of Note DATE: 08/30/18 TIME: 18:15 24 HR Interval Summary Free Text/Dictation # Hemoptysis VS Hematemesis- c/o -bloody cough with clots GI follows Plan for EGD tomorrow Constitutional: requiring O2 Detailed Summary Eyes: no complaints ENT: no complaints Respiratory: cough (with blod ) Gastrointestinal: no complaints Genitourinary: no complaints Musculoskeletal: other (generelized weakness) Skin: no complaints Neurologic: no complaints Endocrine: no complaints Lymphatic: no complaints Exam/Review of Systems Exam Vitals Vital Signs Date Temp Pulse Resp B/P (MAP) Pulse Ox O2 O2 Flow FiO2 Time Delivery Rate 08/30/18 98.7 84 18 111/64 98 Room Air 14:25 (80) Intake and Output 08/29/18 08/29/18 08/30/18 1515:00 23:00 07:00 IntakeIntake Total 2000 ml 800 ml BalanceBalance 2000 ml 800 ml Constitutional: alert, well developed Psych: nl mood/affect Head: normocephalic Eyes: EOMI ENMT: nl external ears & nose Neck: non-tender Respiratory: diminished breath sounds (at bases bilaterally) Cardiovascular: nl pulses, other (s1s2) Gastrointestinal: soft, tender Musculoskeletal: nl extremities to inspection Extremities: normal pulses Neurological: nl speech, other (alert/responsive) Skin: rash or lesions Lymph: nontender Results Result Diagram: 08/30/1818 08/30/1818 Results 24hrs Laboratory Tests Test 08/30/18 05:18 08/30/18 10:33 White Blood Count 3.4 #L Red Blood Count 3.33 L Hemoglobin 7.6 L Hematocrit 24.4 L Mean Corpuscular Volume 73.3 L Mean Corpuscular Hemoglobin 22.8 L Mean Corpuscular Hemoglobin Concent 31.1 L Red Cell Distribution Width 15.8 H Platelet Count 183 Mean Platelet Volume 9.9 Immature Granulocytes % 0.600 H Neutrophils % 62.3 Lymphocytes % 23.4 Monocytes % 10.8 Eosinophils % 2.3 Basophils % 0.6 Nucleated Red Blood Cells % 0.0 Immature Granulocytes # 0.020 Neutrophils # 2.1 Lymphocytes # 0.8 Monocytes # 0.4 Eosinophils # 0.1 Basophils # 0.0 Nucleated Red Blood Cells # 0.0 Prothrombin Time 13.0 Prothrombin Time Ratio 1.0 INR International Normalized Ratio 0.97 Sodium Level 139 Potassium Level 3.2 L Chloride Level 102 Carbon Dioxide Level 28 Anion Gap 9 Blood Urea Nitrogen 17 Creatinine 0.56 Est Glomerular Filtrat Rate mL/min > 60 Glucose Level 105 Calcium Level 8.7 Phosphorus Level 4.6 Magnesium Level 1.9 Total Bilirubin 0.3 Direct Bilirubin 0.00 Indirect Bilirubin 0.3 Aspartate Amino Transf (AST/SGOT) 29 Alanine Aminotransferase (ALT/SGPT) 31 Alkaline Phosphatase 75 Total Protein 6.2 Albumin 3.5 Globulin 2.70 Albumin/Globulin Ratio 1.29 Lab Scanned Report REFERENCE LAB Medications Medication Current Medications IV Flush (NS 3 ml) 3 ml PER PROTOCOL IV ; Start 08/13/18 at 20:00 Ondansetron HCl (Zofran Inj) 4 mg Q6H PRN IV NAUSEA AND/OR VOMITING Last administered on 08/29/18 09:30; Admin Dose 4 MG; Start 08/13/18 at 20:00 Duloxetine HCl (Cymbalta) 60 mg DAILY PO Last administered on 08/30/18 08:28; Admin Dose 60 MG; Start 08/14/18 at 09:00 Levothyroxine Sodium (Synthroid) 50 mcg BEFORE BREAKFAST PO Last administered on 08/30/18 06:32; Admin Dose 50 MCG; Start 08/15/18 at 07:00 Alteplase, Recombinant (Cathflo (Activase)) 2 mg MAY REPEAT X1 PRN CATHETER IF CATHETER REMAINS OCCULUDED Last administered on 08/26/18 23:34; Admin Dose 2 MG; Start 08/15/18 at 06:00 Cholecalciferol (Vitamin D) 2,000 unit DAILY PO Last administered on 08/30/18 08:29; Admin Dose 2,000 UNIT; Start 08/17/18 at 09:00 Zinc Sulfate (Zinc Sulfate) 220 mg DAILY PO Last administered on 08/30/18 08:28; Admin Dose 220 MG; Start 08/17/18 at 09:00 Eye Lubricant (Artificial Tears Oph) 1 drop Q6H PRN BOTH EYES DRY EYES Last administered on 08/19/18 00:00; Admin Dose 1 DROP; Start 08/16/18 at 23:30 Methylnaltrexone [place] (Relistor) 12 mg Q48H SC Last administered on 08/29/18 08:42; Admin Dose 12 MG; Start 08/17/18 at 09:30 Miscellaneous Information 1 ea NOTE XX ; Start 08/17/18 at 10:30 Glucose (Glutose) 15 gm Q15M PRN PO DECREASED GLUCOSE; Start 08/17/18 at 10:30 Glucose (Glutose) 22.5 gm Q15M PRN PO DECREASED GLUCOSE; Start 08/17/18 at 10:30 Dextrose (D50w Syringe) 25 ml Q15M PRN IV DECREASED GLUCOSE; Start 08/17/18 at 10:30 Dextrose (D50w Syringe) 50 ml Q15M PRN IV DECREASED GLUCOSE; Start 08/17/18 at 10:30 Glucagon (Glucagen) 1 mg Q15M PRN IM DECREASED GLUCOSE; Start 08/17/18 at 10:30 Glucose (Glutose) 15 gm Q15M PRN BUCCAL DECREASED GLUCOSE; Start 08/17/18 at 10:30 Hydromorphone HCl (Dilaudid) 2 mg Q3 PRN IV SEVERE PAIN LEVEL 7-10 Last administered on 08/30/18 12:34; Admin Dose 2 MG; Start 08/17/18 at 14:30 Lorazepam (Ativan) 1 mg Q6H PRN IV Anxiety Last administered on 08/30/18 16:02; Admin Dose 1 MG; Start 08/18/18 at 14:30 Zolpidem Tartrate (Ambien) 10 mg QHS PRN PO INSOMNIA Last administered on 08/29/18 21:06; Admin Dose 10 MG; Start 08/20/18 at 11:30 Phenol (Cepastat Lozenge) 1 lozenge Q1H PRN MT THROAT PAIN Last administered on 08/30/18 06:39; Admin Dose 1 LOZENGE; Start 08/21/18 at 11:00 Pantoprazole (Protonix Tab) 40 mg BID PO Last administered on 08/30/18 08:29; Admin Dose 40 MG; Start 08/25/18 at 09:00 Diphenhydramine HCl (Benadryl) 50 mg Q6H PRN IV ITCHING Last administered on 08/30/18 12:34; Admin Dose 50 MG; Start 08/26/18 at 21:00 Valacyclovir HCl (Valtrex) 1,000 mg BID PO Last administered on 08/30/18 08:29; Admin Dose 1,000 MG; Start 08/27/18 at 21:00; Stop 09/01/18 at 20:59 SULEMA WRIGHT Aug 30, 2018 6:16 pm
[2018-08-30 20:00] VITALS: BP 109/77; PULSE 88; RESP 18
[2018-08-30] MEDS: ZOLPIDEM 5 MG TAB PO PRN (20:32)
[2018-08-31] VITALS (21 sets, daily range): BP systolic 101–158; BP diastolic 52–84; PULSE 71–92; RESP 16–24
[2018-08-31] MEDS: DIPHENHYDRAMINE 50 MG INJ IV PRN ×4 (00:26→20:07)
[2018-08-31] MEDS: HYDROmorphONE 2 MG/ML SYG IV PRN ×8 (00:33→23:09)
[2018-08-31] MEDS: CEPASTAT LOZENGE MT PRN ×3 (00:36→23:09)
[2018-08-31] MEDS: LEVOTHYROXINE 50 MCG TAB PO SCH (06:27)
[2018-08-31] MEDS ORDERED: POTASSIUM CHLORIDE 50 ML IVPB SCH (08:00)
[2018-08-31] MEDS: LORAZEPAM 2 MG INJ IV PRN ×2 (08:25→14:28)
[2018-08-31] MEDS: DULOXETINE 30 MG CAP DR PO SCH (08:28)
[2018-08-31] MEDS: VALACYCLOVIR 500 MG TAB PO SCH ×2 (08:28→20:08)
[2018-08-31] MEDS: DEXTROSE 5% 1,000 ML IV SCH (08:28)
[2018-08-31] MEDS: ZINC SULFATE 220 MG CAP PO SCH (08:28)
[2018-08-31] MEDS: PANTOPRAZOLE (EC) 40 MG TAB PO SCH ×2 (08:29→20:08)
[2018-08-31] MEDS: CHOLECALCIFEROL 2,000 UNIT CAP PO SCH (08:29)
[2018-08-31] MEDS: METHYLNALTREXONE 12 MG/0.6 ML VIAL SC SCH (09:31)
[2018-08-31] MEDS ORDERED: MAGNESIUM SULFATE 2 GM/50 ML 50 ML IVPB SCH (10:00)
--- NOTE | 2018-08-31 11:32 | CONS ---
Assessment/Plan Assessment/Plan Assessment/Plan (Daily) #h/o Lymphoma -thus far there are no lesions that can be biopsied and it does not appear she has active cancer #Anemia-hgb 7.1 today -Hgb Electrophoresis - confirms B- thalassemia trait with Anemia -pt has had microcytic anemia requiring transfusions for years -will order a bone marrow bx at this time- pending -anemia panel-anemia positive # Hemoptysis VS Hematemesis - GI follows - plan for EGD tomorrow #Hemoptysis, recurrent. -s/p unremarkable bronchoscopy at [facility] -s/p unremarkable flexible laryngoscopy 02/05/17 at [facility] -CT Chest pulmonary nodules are noted but are too small to biopsy -ID workup pending for pulmonary nodules- Numerous tiny lung nodules, increased in number from the chest CT dated May 22, 2018, with largest measuring 0.3 cm in the left apex - 02/2018- negative TB workup -08/21/18-CT Chest Angio- no new changes. will do Follow-up CT in X 3-4 months to insure stability as recommended - 08/24/18- Repeat bronchoscopy - wnl - Given her platelets and coag panel are wnl; Bronchoscopy is wnl #pancolitis. -Colonoscopy on 08/17/2018 showed patchy colitis. bx was negative -Stool positive for Giardia- pt on vancomycin and flagyl Patient seen in collaboration with Dr Brown. Dw Staff Consultation Date/Type/Reason Admit Date/Time Aug 13, 2018 at 5:22 pm Initial Consult Date 08/19/18 Type of Consult ONCOLOGY Reason for Consultation Hx Lymphoma Requesting Provider: SHAQUILLE HARRIS Date/Time of Note DATE: 08/31/18 TIME: 11:31 24 HR Interval Summary Free Text/Dictation c/o coughing blood; better than yesterday no new events reported from last night Constitutional: requiring O2 Detailed Summary Eyes: pain ENT: no complaints Respiratory: cough (couhin blood), shortness of breath, other Cardiovascular: no complaints Gastrointestinal: no complaints Genitourinary: no complaints Musculoskeletal: no complaints Skin: no complaints Neurologic: no complaints Endocrine: no complaints Exam/Review of Systems Exam Vitals Vital Signs Date Temp Pulse Resp B/P (MAP) Pulse Ox O2 O2 Flow FiO2 Time Delivery Rate 08/31/18 98.5 81 20 101/56 96 Room Air 08:00 (71) Intake and Output 08/30/18 08/30/18 08/31/18 1515:00 23:00 07:00 IntakeIntake Total 1300 ml 1100 ml 20 ml OutputOutput Total 200 ml 200 ml BalanceBalance 1300 ml 900 ml -180 ml Constitutional: alert, well developed Psych: nl mood/affect Head: atraumatic Eyes: EOMI, nl lids, nl sclera ENMT: nl external ears & nose Neck: non-tender Respiratory: crackles/rales (at basa), diminished breath sounds Cardiovascular: nl pulses, other (s1s) Gastrointestinal: soft, non-tender Musculoskeletal: nl extremities to inspection Neurological: nl speech, other (alert/responsive) Skin: nl turgor (z) Lymph: nontender Results Result Diagram: 08/31/18 0824 08/31/18 0647 Results 24hrs Laboratory Tests Test 08/31/18 06:47 08/31/18 08:24 White Blood Count 3.5 L Red Blood Count 2.95 L Hemoglobin 6.6 *L 7.1 L Hematocrit 21.4 L 22.7 L Mean Corpuscular Volume 72.5 L Mean Corpuscular Hemoglobin 22.4 L Mean Corpuscular Hemoglobin Concent 30.8 L Red Cell Distribution Width 16.0 H Platelet Count 182 Mean Platelet Volume 11.0 H Immature Granulocytes % 0.600 H Neutrophils % Segmented Neutrophils % (Manual) 71 Band Neutrophils % (Manual) 8 H Lymphocytes % Lymphocytes % (Manual) 16 Monocytes % Monocytes % (Manual) 3 Eosinophils % Eosinophils % (Manual) 1 Basophils % Basophils % (Manual) 1 Nucleated Red Blood Cells % 0.0 Immature Granulocytes # 0.020 Neutrophils # Neutrophils # (Manual) 2.5 Band Neutrophils # 0.2 Lymphocytes (Manual) 0.5 L Lymphocytes # Monocytes # Monocytes # (Manual) 0.1 L Eosinophils # Basophils # Basophils # (Manual) 0.0 Nucleated Red Blood Cells # Platelet Estimate NORMAL Polychromasia 2+ Hypochromasia 1+ Poikilocytosis 3+ Anisocytosis 3+ Microcytosis 2+ Ovalocytes 1+ Elliptocytes 1+ Sodium Level 141 Potassium Level 3.0 L Chloride Level 111 H Carbon Dioxide Level 27 Anion Gap 3 L Blood Urea Nitrogen 14 Creatinine 0.39 L Est Glomerular Filtrat Rate mL/min > 60 Glucose Level 76 Calcium Level 7.9 L Phosphorus Level 3.7 Magnesium Level 1.7 Medications Medication Current Medications IV Flush (NS 3 ml) 3 ml PER PROTOCOL IV ; Start 08/13/18 at 20:00 Ondansetron HCl (Zofran Inj) 4 mg Q6H PRN IV NAUSEA AND/OR VOMITING Last administered on 08/29/18 09:30; Admin Dose 4 MG; Start 08/13/18 at 20:00 Duloxetine HCl (Cymbalta) 60 mg DAILY PO Last administered on 08/31/18 08:28; Admin Dose 60 MG; Start 08/14/18 at 09:00 Levothyroxine Sodium (Synthroid) 50 mcg BEFORE BREAKFAST PO Last administered on 08/31/18 06:27; Admin Dose 50 MCG; Start 08/15/18 at 07:00 Alteplase, Recombinant (Cathflo (Activase)) 2 mg MAY REPEAT X1 PRN CATHETER IF CATHETER REMAINS OCCULUDED Last administered on 08/26/18 23:34; Admin Dose 2 MG; Start 08/15/18 at 06:00 Cholecalciferol (Vitamin D) 2,000 unit DAILY PO Last administered on 08/31/18 08:29; Admin Dose 2,000 UNIT; Start 08/17/18 at 09:00 Zinc Sulfate (Zinc Sulfate) 220 mg DAILY PO Last administered on 08/31/18 08:28; Admin Dose 220 MG; Start 08/17/18 at 09:00 Eye Lubricant (Artificial Tears Oph) 1 drop Q6H PRN BOTH EYES DRY EYES Last administered on 08/19/18at 00:00; Admin Dose 1 DROP; Start 08/16/18 at 23:30 Methylnaltrexone [place] (Relistor) 12 mg Q48H SC Last administered on 08/31/18 09:31; Admin Dose 12 MG; Start 08/17/18 at 09:30 Miscellaneous Information 1 ea NOTE XX ; Start 08/17/18 at 10:30 Glucose (Glutose) 15 gm Q15M PRN PO DECREASED GLUCOSE; Start 08/17/18 at 10:30 Glucose (Glutose) 22.5 gm Q15M PRN PO DECREASED GLUCOSE; Start 08/17/18 at 10:30 Dextrose (D50w Syringe) 25 ml Q15M PRN IV DECREASED GLUCOSE; Start 08/17/18 at 10:30 Dextrose (D50w Syringe) 50 ml Q15M PRN IV DECREASED GLUCOSE; Start 08/17/18 at 10:30 Glucagon (Glucagen) 1 mg Q15M PRN IM DECREASED GLUCOSE; Start 08/17/18 at 10:30 Glucose (Glutose) 15 gm Q15M PRN BUCCAL DECREASED GLUCOSE; Start 08/17/18 at 10:30 Hydromorphone HCl (Dilaudid) 2 mg Q3 PRN IV SEVERE PAIN LEVEL 7-10 Last administered on 08/31/18 09:31; Admin Dose 2 MG; Start 08/17/18 at 14:30 Lorazepam (Ativan) 1 mg Q6H PRN IV Anxiety Last administered on 08/31/18 08:25; Admin Dose 1 MG; Start 08/18/18 at 14:30 Zolpidem Tartrate (Ambien) 10 mg QHS PRN PO INSOMNIA Last administered on 08/30/18 20:32; Admin Dose 10 MG; Start 08/20/18 at 11:30 Phenol (Cepastat Lozenge) 1 lozenge Q1H PRN MT THROAT PAIN Last administered on 08/31/18 06:39; Admin Dose 1 LOZENGE; Start 08/21/18 at 11:00 Pantoprazole (Protonix Tab) 40 mg BID PO Last administered on 08/31/18 08:29; Admin Dose 40 MG; Start 08/25/18 at 09:00 Diphenhydramine HCl (Benadryl) 50 mg Q6H PRN IV ITCHING Last administered on 08/31/18 06:27; Admin Dose 50 MG; Start 08/26/18 at 21:00 Valacyclovir HCl (Valtrex) 1,000 mg BID PO Last administered on 08/31/18 08:28; Admin Dose 1,000 MG; Start 08/27/18 at 21:00; Stop 09/01/18 at 20:59 Magnesium Sulfate 50 ml @ 25 mls/hr ONCE IVPB Last administered on 08/31/18 09:43; Admin Dose 25 MLS/HR; Start 08/31/18 at 10:00; Stop 08/31/18 at 11:59 Dextrose 1,000 ml @ 50 mls/hr Q20H IV Last administered on 08/31/18at 08:28; Admin Dose 50 MLS/HR; Start 08/31/18 at 08:00 Potassium Chloride 100 ml @ 50 mls/hr Q2H IVPB ; Start 08/31/18 at 10:00; Stop 08/31/18 at 13:59 SULEMA WRIGHT Aug 31, 2018 11:32
[2018-08-31] MEDS: POTASSIUM CHLORIDE 20 MEQ/SW 100 ML IVPB SCH ×2 (11:46→13:52)
[2018-08-31] MEDS ORDERED: SOD CHLORIDE 0.9% 250 ML IV* ONE (11:54)
--- NOTE | 2018-08-31 11:59 | PN ---
Date/Time of Note Date/Time of Note DATE: 08/31/18 TIME: 11:56 Assessment/Plan VTE Prophylaxis Risk score (from Ns)>0 risk: 1 SCD applied (from Ns): Yes Pharmacological prophylaxis: NA/contraindicated Pharm contraindication: bleeding Lines/Catheters IV C[facility] Type (from [facility]): PICC Line Central line still needed: Yes Urinary Cath still in place: No Assessment/Plan Hospital Course SUBJECTIVE: Continues to have hemoptysis. Denies any abdominal pain or diarrhea. OBJECTIVE: Physical Exam General: Adequately build 52 year-old female lying in bed in no apparent distress. HEENT: Normocephalic, atraumatic. Eyes: Anicteric sclerae, conjunctivae clear. ENT: Nasal septum midline, oral mucosa moist. Ulcer in the frenulum linguae. Neck supple, no JVD noticed. Respiratory: Bilaterally clear breath sounds. No use of accessory muscles of respiration. No adventitious breath sounds. Cardiovascular: S1, S2 heard. No murmurs or gallops. Abdomen: Soft and nondistended. Minimal suprapubic tenderness. Bowel sounds positive in all 4 quadrants. Genitourinary: Deferred. Extremities: No cyanosis, no clubbing, no edema. Peripheral pulses palpable. Neurologic: Cranial nerves II through XII grossly intact. The patient is awake, alert, and oriented. Skin: Normal skin turgor. No skin rashes. Labs & Vitals per chart ASSESSMENT & PLAN This is a 52-year-old female with comorbidities including Hodgkin's lymphoma of the lung, history of thyroid cancer status post thyroid surgery,chronic pain syndrome, and. The patient came to the emergency room with history of PE status post IVC filter placement abdominal pain and bloody stools. The patient's CT scan of the abdomen and pelvis was showing colitis involving the ascending, transverse, descending colon. The patient also had underlying leukocytosis and bandemia. Therefore, the patient was admitted to inpatient setting for further treatment and evaluation. 1. Acute pancolitis. -Stool studies showing Giardia. S/P Flagyl (last day 08/21/2018) -Being followed by gastroenterology and ID. -Colonoscopy on 08/17/2018 showed patchy colitis. 2. Hodgkin's lymphoma of the lung. -Being followed by Oncology. 3. History of PE. -Status post IVC filter placement. 4. Anemia. -Microcytic and hypochromic. -Monitor H&H closely. -Stool for OB x1 positive. 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 5. Chronic pain syndrome. -Pain management as per pain team. 6. Hyperglycemia. -Etiology unclear. -Hemoglobin A1c within normal limits although this could be the glycosylated hemoglobin from the transfused (donor) blood. -The patient was told by her primary care provider previously that she is borderline diabetic. -Started the patient on sliding scale insulin on 08/17/2018. -Stopped the patients insulin SSI on 08/21/2018 once the hyperglycemia was resolved. 7. Hemoptysis on 08/18/2018. -Being followed by Pulmonology. -S/P bronchoscopy on 08/24/2018 that was unremarkable. -Plan for esophagogastroduodenoscopy on 08/31/2018. 8. Ulcer of the frenulum linguae. -Continue management as per ID. 8. Fluids, electrolytes, and nutrition. -Soft diet (n.p.o. for esophagogastroduodenoscopy). 9. DVT prophylaxis -Bilateral SCDs. 10. Plan. -Continue pain control. -Transfuse 1 unit of PRBC. -Replete potassium. -Await esophagogastroduodenoscopy. The patient was seen in collaboration with Dr. Montes. Result Diagram: 08/31/18 0824 08/31/18 0647 Results 24hrs Laboratory Tests Test 08/31/18 06:47 08/31/18 08:24 White Blood Count 3.5 L Red Blood Count 2.95 L Hemoglobin 6.6 *L 7.1 L Hematocrit 21.4 L 22.7 L Mean Corpuscular Volume 72.5 L Mean Corpuscular Hemoglobin 22.4 L Mean Corpuscular Hemoglobin Concent 30.8 L Red Cell Distribution Width 16.0 H Platelet Count 182 Mean Platelet Volume 11.0 H Immature Granulocytes % 0.600 H Neutrophils % Segmented Neutrophils % (Manual) 71 Band Neutrophils % (Manual) 8 H Lymphocytes % Lymphocytes % (Manual) 16 Monocytes % Monocytes % (Manual) 3 Eosinophils % Eosinophils % (Manual) 1 Basophils % Basophils % (Manual) 1 Nucleated Red Blood Cells % 0.0 Immature Granulocytes # 0.020 Neutrophils # Neutrophils # (Manual) 2.5 Band Neutrophils # 0.2 Lymphocytes (Manual) 0.5 L Lymphocytes # Monocytes # Monocytes # (Manual) 0.1 L Eosinophils # Basophils # Basophils # (Manual) 0.0 Nucleated Red Blood Cells # Platelet Estimate NORMAL Polychromasia 2+ Hypochromasia 1+ Poikilocytosis 3+ Anisocytosis 3+ Microcytosis 2+ Ovalocytes 1+ Elliptocytes 1+ Sodium Level 141 Potassium Level 3.0 L Chloride Level 111 H Carbon Dioxide Level 27 Anion Gap 3 L Blood Urea Nitrogen 14 Creatinine 0.39 L Est Glomerular Filtrat Rate mL/min > 60 Glucose Level 76 Calcium Level 7.9 L Phosphorus Level 3.7 Magnesium Level 1.7 Exam/Review of Systems Exam Vitals Vital Signs Date Temp Pulse Resp B/P (MAP) Pulse Ox O2 O2 Flow FiO2 Time Delivery Rate 08/31/18 98.5 81 20 101/56 96 Room Air 08:00 (71) Intake and Output 08/30/18 08/30/18 08/31/18 1515:00 23:00 07:00 IntakeIntake Total 1300 ml 1100 ml 20 ml OutputOutput Total 200 ml 200 ml BalanceBalance 1300 ml 900 ml -180 ml Results Results 24hrs Laboratory Tests Test 08/31/18 06:47 08/31/18 08:24 White Blood Count 3.5 L Red Blood Count 2.95 L Hemoglobin 6.6 *L 7.1 L Hematocrit 21.4 L 22.7 L Mean Corpuscular Volume 72.5 L Mean Corpuscular Hemoglobin 22.4 L Mean Corpuscular Hemoglobin Concent 30.8 L Red Cell Distribution Width 16.0 H Platelet Count 182 Mean Platelet Volume 11.0 H Immature Granulocytes % 0.600 H Neutrophils % Segmented Neutrophils % (Manual) 71 Band Neutrophils % (Manual) 8 H Lymphocytes % Lymphocytes % (Manual) 16 Monocytes % Monocytes % (Manual) 3 Eosinophils % Eosinophils % (Manual) 1 Basophils % Basophils % (Manual) 1 Nucleated Red Blood Cells % 0.0 Immature Granulocytes # 0.020 Neutrophils # Neutrophils # (Manual) 2.5 Band Neutrophils # 0.2 Lymphocytes (Manual) 0.5 L Lymphocytes # Monocytes # Monocytes # (Manual) 0.1 L Eosinophils # Basophils # Basophils # (Manual) 0.0 Nucleated Red Blood Cells # Platelet Estimate NORMAL Polychromasia 2+ Hypochromasia 1+ Poikilocytosis 3+ Anisocytosis 3+ Microcytosis 2+ Ovalocytes 1+ Elliptocytes 1+ Sodium Level 141 Potassium Level 3.0 L Chloride Level 111 H Carbon Dioxide Level 27 Anion Gap 3 L Blood Urea Nitrogen 14 Creatinine 0.39 L Est Glomerular Filtrat Rate mL/min > 60 Glucose Level 76 Calcium Level 7.9 L Phosphorus Level 3.7 Magnesium Level 1.7 Medications Medication Current Medications IV Flush (NS 3 ml) 3 ml PER PROTOCOL IV ; Start 08/13/18 at 20:00 Ondansetron HCl (Zofran Inj) 4 mg Q6H PRN IV NAUSEA AND/OR VOMITING Last administered on 08/29/18 09:30; Admin Dose 4 MG; Start 08/13/18 at 20:00 Duloxetine HCl (Cymbalta) 60 mg DAILY PO Last administered on 08/31/18 08:28; Admin Dose 60 MG; Start 08/14/18 at 09:00 Levothyroxine Sodium (Synthroid) 50 mcg BEFORE BREAKFAST PO Last administered on 08/31/18 06:27; Admin Dose 50 MCG; Start 08/15/18 at 07:00 Alteplase, Recombinant (Cathflo (Activase)) 2 mg MAY REPEAT X1 PRN CATHETER IF CATHETER REMAINS OCCULUDED Last administered on 08/26/18 23:34; Admin Dose 2 MG; Start 08/15/18 at 06:00 Cholecalciferol (Vitamin D) 2,000 unit DAILY PO Last administered on 08/31/18 08:29; Admin Dose 2,000 UNIT; Start 08/17/18 at 09:00 Zinc Sulfate (Zinc Sulfate) 220 mg DAILY PO Last administered on 08/31/18 08:28; Admin Dose 220 MG; Start 08/17/18 at 09:00 Eye Lubricant (Artificial Tears Oph) 1 drop Q6H PRN BOTH EYES DRY EYES Last administered on 08/19/18 00:00; Admin Dose 1 DROP; Start 08/16/18 at 23:30 Methylnaltrexone [place] (Relistor) 12 mg Q48H SC Last administered on 08/31/18 09:31; Admin Dose 12 MG; Start 08/17/18 at 09:30 Miscellaneous Information 1 ea NOTE XX ; Start 08/17/18 at 10:30 Glucose (Glutose) 15 gm Q15M PRN PO DECREASED GLUCOSE; Start 08/17/18 at 10:30 Glucose (Glutose) 22.5 gm Q15M PRN PO DECREASED GLUCOSE; Start 08/17/18 at 10:30 Dextrose (D50w Syringe) 25 ml Q15M PRN IV DECREASED GLUCOSE; Start 08/17/18 at 10:30 Dextrose (D50w Syringe) 50 ml Q15M PRN IV DECREASED GLUCOSE; Start 08/17/18 at 10:30 Glucagon (Glucagen) 1 mg Q15M PRN IM DECREASED GLUCOSE; Start 08/17/18 at 10:30 Glucose (Glutose) 15 gm Q15M PRN BUCCAL DECREASED GLUCOSE; Start 08/17/18 at 10:30 Hydromorphone HCl (Dilaudid) 2 mg Q3 PRN IV SEVERE PAIN LEVEL 7-10 Last administered on 08/31/18 09:31; Admin Dose 2 MG; Start 08/17/18 at 14:30 Lorazepam (Ativan) 1 mg Q6H PRN IV Anxiety Last administered on 08/31/18 08:25; Admin Dose 1 MG; Start 08/18/18 at 14:30 Zolpidem Tartrate (Ambien) 10 mg QHS PRN PO INSOMNIA Last administered on 08/30/18 20:32; Admin Dose 10 MG; Start 08/20/18 at 11:30 Phenol (Cepastat Lozenge) 1 lozenge Q1H PRN MT THROAT PAIN Last administered on 08/31/18 06:39; Admin Dose 1 LOZENGE; Start 08/21/18 at 11:00 Pantoprazole (Protonix Tab) 40 mg BID PO Last administered on 08/31/18 08:29; Admin Dose 40 MG; Start 08/25/18 at 09:00 Diphenhydramine HCl (Benadryl) 50 mg Q6H PRN IV ITCHING Last administered on 08/31/18 06:27; Admin Dose 50 MG; Start 08/26/18 at 21:00 Valacyclovir HCl (Valtrex) 1,000 mg BID PO Last administered on 08/31/18 08:28; Admin Dose 1,000 MG; Start 08/27/18 at 21:00; Stop 09/01/18 at 20:59 Magnesium Sulfate 50 ml @ 25 mls/hr ONCE IVPB Last administered on 2/5/19at 09:43; Admin Dose 25 MLS/HR; Start 08/31/18 at 10:00; Stop 08/31/18 at 11:59 Dextrose 1,000 ml @ 50 mls/hr Q20H IV Last administered on 08/31/18at 08:28; Admin Dose 50 MLS/HR; Start 08/31/18 at 08:00 Potassium Chloride 100 ml @ 50 mls/hr Q2H IVPB Last administered on 08/31/18at 11:46; Admin Dose 50 MLS/HR; Start 08/31/18 at 10:00; Stop 08/31/18 at 13:59 Sodium Chloride 250 ml @ 0 mls/hr Q0M ONCE IV* ; Start 08/31/18 at 11:54; Stop 08/31/18 at 11:55; Status [employer] Aug 31, 2018 11:59
--- NOTE | 2018-08-31 12:20 | CONS ---
Assessment/Plan Assessment/Plan Hospital Course (Demo Recall) sepsis, bloodstream infection - H/o "bacteremia due to enterococci" according to progress notes at [facility] [place], but the actual microbiology report indicated blood culture was positive for ESBL+E. coli - h/o fungemia due to kaley glabrata, sensitive to fluconazole and to micaf ungin/caspofungin at [facility] [place] pulm - persistent hemoptysis of unknown etiology: Pt reports negative PPD last month at [facility]. - according to the microbiology report at [facility] [place], Pt had ESBL+E. coli in her respiratory culture. Sputum cultures for AFB and fungi were negative at 8 weeks and at 4 weeks respectively at [facility] [place] - Pt had negative bronchoscopy in 05/2018 at [facility] [place], another at [facility] in 2017, and on 08/25/2018 at [facility] (no e/o bronchial airway bleeding according to Dr. Bello - Numerous tiny lung nodules, increased in number from the chest CT dated 2017, with largest measuring 0.3 cm in the left apex - so far: aspergillus antibody not detected, HIV negative, coccidioidomycosis serology negative GI - Delgado-colitis per CT - S/p sigmoidoscopy with biopsy 08/17/2018; path showed no e/o colitis or malignancy from transverse colon and rectum biopsies - S/p bloody diarrhea d/t Giardia; Pt took metronidazole for Giardia (08/14/2018- 08/21/2018) in 07/2018. - H/o C diff toxin negative PCR positive status at [facility] [place]. Took a course of Fidaxomyxin x 10 days. C. diff was negative on 08/14/2018 at [facility] - H/o cholecystectomy heme/oncology - S/p CT guided bone marrow aspiration and biopsy 08/20/2018 - Microcytic anemia requiring PRBC d/t acute blood loss - H/o BUE and RLE DVT, s/p IVC filter in January 2018 - H/o Hodgkin lymphoma diagnosed in 2006 - H/o thyroid CA diagnosed in 2005, s/p resection, chemo and XRT - IVC filter placement - +Family hx of cancer (father of stomach CA, mother of lymphoma, paternal uncle had breast CA and 12 yo daughter has h/o brain tumor s/p surgery and resulting blindness) , renal - h/o UTI due to ESBL+E. coli other conditions - a painful ulcer at frenulum, recurrent. According to Pt, topical steroid would worsen the pain. HIV negative, RPR non reactive - s/p bilateral conjunctivitis - improved s/p Cipro eye drops (08/18/18-08/23/18) - Hypothyroidism - HLD - Hypokalemia - OA - depression/anxiety - H/o x2 - Allergy to PCN and vancomycin (reaction unknown) Recommendations: - pending results: sputum fungal culture (in process. growing kaley so far), 1,5-crcr-l-glucan. herpes 1 and 2 by PCR - continue trial of PO valacyclovir (08/27/2018-), ordered for 5 days. - s/p PO levofloxacin (08/24/2018-08/28/2018) for probable UTI - await further input from GI Consultation Date/Type/Reason Admit Date/Time Aug 13, 2018 at 17:22 Initial Consult Date 08/19/18 Requesting Provider: SHAQUILLE HARRIS Date/Time of Note DATE: 08/31/18 TIME: 12:19 24 HR Interval Summary Free Text/Dictation c/o cough. d/w nursing and patient. Exam/Review of Systems Exam Vitals Vital Signs Date Temp Pulse Resp B/P (MAP) Pulse Ox O2 O2 Flow FiO2 Time Delivery Rate 08/31/18 98.5 81 20 101/56 96 Room Air 08:00 (71) Intake and Output 08/30/18 08/30/18 08/31/18 1414:59 22:59 06:59 IntakeIntake Total 1300 ml 1100 ml 20 ml OutputOutput Total 200 ml 200 ml BalanceBalance 1300 ml 900 ml -180 ml Constitutional: alert Eyes: EOMI Respiratory: clear to auscultation Cardiovascular: regular rate and rhythm Gastrointestinal: soft Musculoskeletal: nl extremities to inspection Neurological: BUTTON RECLAIMER II-XII intact Results Result Diagram: 08/31/18 0824 08/31/18 0647 Results 24hrs Laboratory Tests Test 08/31/18 06:47 08/31/18 08:24 White Blood Count 3.5 L Red Blood Count 2.95 L Hemoglobin 6.6 *L 7.1 L Hematocrit 21.4 L 22.7 L Mean Corpuscular Volume 72.5 L Mean Corpuscular Hemoglobin 22.4 L Mean Corpuscular Hemoglobin Concent 30.8 L Red Cell Distribution Width 16.0 H Platelet Count 182 Mean Platelet Volume 11.0 H Immature Granulocytes % 0.600 H Neutrophils % Segmented Neutrophils % (Manual) 71 Band Neutrophils % (Manual) 8 H Lymphocytes % Lymphocytes % (Manual) 16 Monocytes % Monocytes % (Manual) 3 Eosinophils % Eosinophils % (Manual) 1 Basophils % Basophils % (Manual) 1 Nucleated Red Blood Cells % 0.0 Immature Granulocytes # 0.020 Neutrophils # Neutrophils # (Manual) 2.5 Band Neutrophils # 0.2 Lymphocytes (Manual) 0.5 L Lymphocytes # Monocytes # Monocytes # (Manual) 0.1 L Eosinophils # Basophils # Basophils # (Manual) 0.0 Nucleated Red Blood Cells # Platelet Estimate NORMAL Polychromasia 2+ Hypochromasia 1+ Poikilocytosis 3+ Anisocytosis 3+ Microcytosis 2+ Ovalocytes 1+ Elliptocytes 1+ Sodium Level 141 Potassium Level 3.0 L Chloride Level 111 H Carbon Dioxide Level 27 Anion Gap 3 L Blood Urea Nitrogen 14 Creatinine 0.39 L Est Glomerular Filtrat Rate mL/min > 60 Glucose Level 76 Calcium Level 7.9 L Phosphorus Level 3.7 Magnesium Level 1.7 Medications Medication Current Medications IV Flush (NS 3 ml) 3 ml PER PROTOCOL IV ; Start 08/13/18 at 20:00 Ondansetron HCl (Zofran Inj) 4 mg Q6H PRN IV NAUSEA AND/OR VOMITING Last administered on 08/29/18 09:30; Admin Dose 4 MG; Start 08/13/18 at 20:00 Duloxetine HCl (Cymbalta) 60 mg DAILY PO Last administered on 08/31/18 08:28; Admin Dose 60 MG; Start 08/14/18 at 09:00 Levothyroxine Sodium (Synthroid) 50 mcg BEFORE BREAKFAST PO Last administered on 08/31/18 06:27; Admin Dose 50 MCG; Start 08/15/18 at 07:00 Alteplase, Recombinant (Cathflo (Activase)) 2 mg MAY REPEAT X1 PRN CATHETER IF CATHETER REMAINS OCCULUDED Last administered on 08/26/18 23:34; Admin Dose 2 MG; Start 08/15/18 at 06:00 Cholecalciferol (Vitamin D) 2,000 unit DAILY PO Last administered on 08/31/18 08:29; Admin Dose 2,000 UNIT; Start 08/17/18 at 09:00 Zinc Sulfate (Zinc Sulfate) 220 mg DAILY PO Last administered on 08/31/18 08:28; Admin Dose 220 MG; Start 08/17/18 at 09:00 Eye Lubricant (Artificial Tears Oph) 1 drop Q6H PRN BOTH EYES DRY EYES Last administered on 08/19/18 00:00; Admin Dose 1 DROP; Start 08/16/18 at 23:30 Methylnaltrexone [place] (Relistor) 12 mg Q48H SC Last administered on 08/31/18 09:31; Admin Dose 12 MG; Start 08/17/18 at 09:30 Miscellaneous Information 1 ea NOTE XX ; Start 08/17/18 at 10:30 Glucose (Glutose) 15 gm Q15M PRN PO DECREASED GLUCOSE; Start 08/17/18 at 10:30 Glucose (Glutose) 22.5 gm Q15M PRN PO DECREASED GLUCOSE; Start 08/17/18 at 10:30 Dextrose (D50w Syringe) 25 ml Q15M PRN IV DECREASED GLUCOSE; Start 08/17/18 at 10:30 Dextrose (D50w Syringe) 50 ml Q15M PRN IV DECREASED GLUCOSE; Start 08/17/18 at 10:30 Glucagon (Glucagen) 1 mg Q15M PRN IM DECREASED GLUCOSE; Start 08/17/18 at 10:30 Glucose (Glutose) 15 gm Q15M PRN BUCCAL DECREASED GLUCOSE; Start 08/17/18 at 10:30 Hydromorphone HCl (Dilaudid) 2 mg Q3 PRN IV SEVERE PAIN LEVEL 7-10 Last administered on 08/31/18 09:31; Admin Dose 2 MG; Start 08/17/18 at 14:30 Lorazepam (Ativan) 1 mg Q6H PRN IV Anxiety Last administered on 08/31/18 08:25; Admin Dose 1 MG; Start 08/18/18 at 14:30 Zolpidem Tartrate (Ambien) 10 mg QHS PRN PO INSOMNIA Last administered on 08/30/18 20:32; Admin Dose 10 MG; Start 08/20/18 at 11:30 Phenol (Cepastat Lozenge) 1 lozenge Q1H PRN MT THROAT PAIN Last administered on 08/31/18 06:39; Admin Dose 1 LOZENGE; Start 08/21/18 at 11:00 Pantoprazole (Protonix Tab) 40 mg BID PO Last administered on 08/31/18 08:29; Admin Dose 40 MG; Start 08/25/18 at 09:00 Diphenhydramine HCl (Benadryl) 50 mg Q6H PRN IV ITCHING Last administered on 08/31/18 06:27; Admin Dose 50 MG; Start 08/26/18 at 21:00 Valacyclovir HCl (Valtrex) 1,000 mg BID PO Last administered on 08/31/18 08:28; Admin Dose 1,000 MG; Start 08/27/18 at 21:00; Stop 09/01/18 at 20:59 Dextrose 1,000 ml @ 50 mls/hr Q20H IV Last administered on 08/31/18at 08:28; Admin Dose 50 MLS/HR; Start 08/31/18 at 08:00 Potassium Chloride 100 ml @ 50 mls/hr Q2H IVPB Last administered on 08/31/18at 11:46; Admin Dose 50 MLS/HR; Start 08/31/18 at 10:00; Stop 08/31/18 at 13:59 AUREA MEDINA MD Aug 31, 2018 12:20
--- NOTE | 2018-08-31 14:31 | CONS ---
Assessment/Plan Assessment/Plan Assessment/Plan (Daily) h/o Lymphoma -thus far there are no lesions that can be biopsied and it does not appear she has active cancer #Anemia-hgb 7.1 today- will give 2 units of PRBC -Hgb Electrophoresis - confirms B- thalassemia trait with Anemia -pt has had microcytic anemia requiring transfusions for years -will order a bone marrow bx at this time- pending -anemia panel-anemia positive # Hemoptysis VS Hematemesis - GI follows - plan for EGD tomorrow #Hemoptysis, recurrent. -s/p unremarkable bronchoscopy at [facility] -s/p unremarkable flexible laryngoscopy 02/05/17 at [facility] -CT Chest pulmonary nodules are noted but are too small to biopsy -ID workup pending for pulmonary nodules- Numerous tiny lung nodules, increased in number from the chest CT dated May 22, 2018, with largest measuring 0.3 cm in the left apex - 02/2018- negative TB workup -08/21/18-CT Chest Angio- no new changes. will do Follow-up CT in X 3-4 months to insure stability as recommended - 08/24/18- Repeat bronchoscopy - wnl - Given her platelets and coag panel are wnl; Bronchoscopy is wnl #pancolitis. -Colonoscopy on 08/17/2018 showed patchy colitis. bx was negative -Stool positive for Giardia- pt on vancomycin and flagyl Patient seen in collaboration with Dr Brown. Dw Staff Consultation Date/Type/Reason Admit Date/Time Aug 13, 2018 at 17:22 Initial Consult Date 08/19/18 Type of Consult ONCOLOGY Reason for Consultation Hx Lymphoma Requesting Provider: SHAQUILLE HARRIS Date/Time of Note DATE: 08/31/18 TIME: 14:24 24 HR Interval Summary Free Text/Dictation #Anemia-hgb 7.1 today- will give 2 units of PRBC - gi follows - SP ercp no new events reported last night Exam/Review of Systems Exam Vitals Vital Signs Date Temp Pulse Resp B/P (MAP) Pulse Ox O2 O2 Flow FiO2 Time Delivery Rate 08/31/18 98.5 81 20 101/56 96 Room Air 08:00 (71) Intake and Output 08/30/18 08/30/18 08/31/18 1515:00 23:00 07:00 IntakeIntake Total 1300 ml 1100 ml 20 ml OutputOutput Total 200 ml 200 ml BalanceBalance 1300 ml 900 ml -180 ml Constitutional: alert, oriented Psych: nl mood/affect Head: atraumatic Eyes: EOMI, nl lids Neck: non-tender Respiratory: diminished breath sounds (At bases bilaterally ) Cardiovascular: nl pulses, other (s1s2) Musculoskeletal: nl extremities to inspection Extremities: normal pulses Neurological: nl mental status, nl speech Skin: nl turgor Lymph: nontender Results Result Diagram: 08/31/18 0824 08/31/18 0647 Results 24hrs Laboratory Tests Test 08/31/18 06:47 08/31/18 08:24 White Blood Count 3.5 L Red Blood Count 2.95 L Hemoglobin 6.6 *L 7.1 L Hematocrit 21.4 L 22.7 L Mean Corpuscular Volume 72.5 L Mean Corpuscular Hemoglobin 22.4 L Mean Corpuscular Hemoglobin Concent 30.8 L Red Cell Distribution Width 16.0 H Platelet Count 182 Mean Platelet Volume 11.0 H Immature Granulocytes % 0.600 H Neutrophils % Segmented Neutrophils % (Manual) 71 Band Neutrophils % (Manual) 8 H Lymphocytes % Lymphocytes % (Manual) 16 Monocytes % Monocytes % (Manual) 3 Eosinophils % Eosinophils % (Manual) 1 Basophils % Basophils % (Manual) 1 Nucleated Red Blood Cells % 0.0 Immature Granulocytes # 0.020 Neutrophils # Neutrophils # (Manual) 2.5 Band Neutrophils # 0.2 Lymphocytes (Manual) 0.5 L Lymphocytes # Monocytes # Monocytes # (Manual) 0.1 L Eosinophils # Basophils # Basophils # (Manual) 0.0 Nucleated Red Blood Cells # Platelet Estimate NORMAL Polychromasia 2+ Hypochromasia 1+ Poikilocytosis 3+ Anisocytosis 3+ Microcytosis 2+ Ovalocytes 1+ Elliptocytes 1+ Sodium Level 141 Potassium Level 3.0 L Chloride Level 111 H Carbon Dioxide Level 27 Anion Gap 3 L Blood Urea Nitrogen 14 Creatinine 0.39 L Est Glomerular Filtrat Rate mL/min > 60 Glucose Level 76 Calcium Level 7.9 L Phosphorus Level 3.7 Magnesium Level 1.7 Medications Medication Current Medications IV Flush (NS 3 ml) 3 ml PER PROTOCOL IV ; Start 08/13/18 at 20:00 Ondansetron HCl (Zofran Inj) 4 mg Q6H PRN IV NAUSEA AND/OR VOMITING Last administered on 08/29/18 09:30; Admin Dose 4 MG; Start 08/13/18 at 20:00 Duloxetine HCl (Cymbalta) 60 mg DAILY PO Last administered on 08/31/18 08:28; Admin Dose 60 MG; Start 08/14/18 at 09:00 Levothyroxine Sodium (Synthroid) 50 mcg BEFORE BREAKFAST PO Last administered on 08/31/18 06:27; Admin Dose 50 MCG; Start 08/15/18 at 07:00 Alteplase, Recombinant (Cathflo (Activase)) 2 mg MAY REPEAT X1 PRN CATHETER IF CATHETER REMAINS OCCULUDED Last administered on 08/26/18 23:34; Admin Dose 2 MG; Start 08/15/18 at 06:00 Cholecalciferol (Vitamin D) 2,000 unit DAILY PO Last administered on 08/31/18 08:29; Admin Dose 2,000 UNIT; Start 08/17/18 at 09:00 Zinc Sulfate (Zinc Sulfate) 220 mg DAILY PO Last administered on 08/31/18 08:28; Admin Dose 220 MG; Start 08/17/18 at 09:00 Eye Lubricant (Artificial Tears Oph) 1 drop Q6H PRN BOTH EYES DRY EYES Last administered on 08/19/18 00:00; Admin Dose 1 DROP; Start 08/16/18 at 23:30 Methylnaltrexone [place] (Relistor) 12 mg Q48H SC Last administered on 08/31/18 09:31; Admin Dose 12 MG; Start 08/17/18 at 09:30 Miscellaneous Information 1 ea NOTE XX ; Start 08/17/18 at 10:30 Glucose (Glutose) 15 gm Q15M PRN PO DECREASED GLUCOSE; Start 08/17/18 at 10:30 Glucose (Glutose) 22.5 gm Q15M PRN PO DECREASED GLUCOSE; Start 08/17/18 at 10:30 Dextrose (D50w Syringe) 25 ml Q15M PRN IV DECREASED GLUCOSE; Start 08/17/18 at 10:30 Dextrose (D50w Syringe) 50 ml Q15M PRN IV DECREASED GLUCOSE; Start 08/17/18 at 10:30 Glucagon (Glucagen) 1 mg Q15M PRN IM DECREASED GLUCOSE; Start 08/17/18 at 10:30 Glucose (Glutose) 15 gm Q15M PRN BUCCAL DECREASED GLUCOSE; Start 08/17/18 at 10:30 Hydromorphone HCl (Dilaudid) 2 mg Q3 PRN IV SEVERE PAIN LEVEL 7-10 Last administered on 08/31/18 12:27; Admin Dose 2 MG; Start 08/17/18 at 14:30 Lorazepam (Ativan) 1 mg Q6H PRN IV Anxiety Last administered on 08/31/18 08:25; Admin Dose 1 MG; Start 08/18/18 at 14:30 Zolpidem Tartrate (Ambien) 10 mg QHS PRN PO INSOMNIA Last administered on 08/30/18 20:32; Admin Dose 10 MG; Start 08/20/18 at 11:30 Phenol (Cepastat Lozenge) 1 lozenge Q1H PRN MT THROAT PAIN Last administered on 08/31/18 06:39; Admin Dose 1 LOZENGE; Start 08/21/18 at 11:00 Pantoprazole (Protonix Tab) 40 mg BID PO Last administered on 08/31/18 08:29; Admin Dose 40 MG; Start 08/25/18 at 09:00 Diphenhydramine HCl (Benadryl) 50 mg Q6H PRN IV ITCHING Last administered on 08/31/18 12:27; Admin Dose 50 MG; Start 08/26/18 at 21:00 Valacyclovir HCl (Valtrex) 1,000 mg BID PO Last administered on 08/31/18 08:28; Admin Dose 1,000 MG; Start 08/27/18 at 21:00; Stop 09/01/18 at 20:59 Dextrose 1,000 ml @ 50 mls/hr Q20H IV Last administered on 08/31/18 08:28; Admin Dose 50 MLS/HR; Start 08/31/18 at 08:00 SULEMA WRIGHT Aug 31, 2018 14:30
--- NOTE | 2018-08-31 15:37 | PREAC ---
Date/Time of Note Date/Time of Note DATE: 08/31/18 TIME: 15:35 Anesthesia Eval and Record Evaluation Time Pre-Procedure Interview DATE: 08/31/18 TIME: 15:35 Age 52 Sex female NPO: 8 hrs Preoperative diagnosis hemoptosis Planned procedure egd Past Medical History Past Medical History: Includes Cardio: Dyslipidemia Endo: Other (hx of thyroid cancer ) GI: GERD Heme: Anemia, Other (lymphoma ) Surgery & Anesthesia Issues No known issue Meds Anticoagulation: No Beta Mirna within 24 hr: No Reason Beta Mirna not given: Pt. not on B-Mirna Reported Medications Zolpidem Tartrate* (Ambien*) 5 Mg Tablet, 5 MG PO QHS PRN for INSOMNIA, #30 TAB 08/13/18 Cholecalciferol* (Vitamin D3*) 1,000 Unit Tablet, 1000 UNIT PO DAILY, TAB 08/13/18 Cholecalciferol* (Vitamin D3*) 1,000 Unit Tablet, 2000 UNIT PO DAILY, TAB 08/13/18 Potassium Chloride* (Potassium Chloride*) 20 Meq Tablet.er, 20 MEQ PO DAILY, TAB.SA 08/13/18 Duloxetine Hcl* (Cymbalta*) 60 Mg Capsule.dr, 60 MG PO DAILY, CAP 08/13/18 Oxycodone Hcl* (Oxycontin*) 15 Mg Tab.sr.12h, 15 MG PO Q12, TAB 08/13/18 Hydromorphone Hcl* (Dilaudid*) 8 Mg Tablet, 8 MG PO Q6H PRN for PAIN, TAB 08/13/18 Pantoprazole* (Protonix*) 40 Mg Tablet.dr, 40 MG PO AC BREAKFAST, TAB 08/13/18 Levothyroxine Sodium* (Levothyroxine Sodium*) 25 Mcg Tablet, 25 MCG PO BEFORE BREAKFAST, #30 TAB 08/13/18 Current Medications IV Flush (NS 3 ml) 3 ml PER PROTOCOL IV ; Start 08/13/18 at 20:00 Ondansetron HCl (Zofran Inj) 4 mg Q6H PRN IV NAUSEA AND/OR VOMITING Last administered on 08/29/18at 09:30; Admin Dose 4 MG; Start 08/13/18 at 20:00 Duloxetine HCl (Cymbalta) 60 mg DAILY PO Last administered on 08/31/18at 08:28; Admin Dose 60 MG; Start 08/14/18 at 09:00 Levothyroxine Sodium (Synthroid) 50 mcg BEFORE BREAKFAST PO Last administered on 08/31/18 06:27; Admin Dose 50 MCG; Start 08/15/18 at 07:00 Alteplase, Recombinant (Cathflo (Activase)) 2 mg MAY REPEAT X1 PRN CATHETER IF CATHETER REMAINS OCCULUDED Last administered on 08/26/18 23:34; Admin Dose 2 M G; Start 08/15/18 at 06:00 Cholecalciferol (Vitamin D) 2,000 unit DAILY PO Last administered on 08/31/18 08:29; Admin Dose 2,000 UNIT; Start 08/17/18 at 09:00 Zinc Sulfate (Zinc Sulfate) 220 mg DAILY PO Last administered on 08/31/18 08:28; Admin Dose 220 MG; Start 08/17/18 at 09:00 Eye Lubricant (Artificial Tears Oph) 1 drop Q6H PRN BOTH EYES DRY EYES Last administered on 08/19/18 00:00; Admin Dose 1 DROP; Start 08/16/18 at 23:30 Methylnaltrexone [place] (Relistor) 12 mg Q48H SC Last administered on 08/31/18 09:31; Admin Dose 12 MG; Start 08/17/18 at 09:30 Miscellaneous Information 1 ea NOTE XX ; Start 08/17/18 at 10:30 Glucose (Glutose) 15 gm Q15M PRN PO DECREASED GLUCOSE; Start 08/17/18 at 10:30 Glucose (Glutose) 22.5 gm Q15M PRN PO DECREASED GLUCOSE; Start 08/17/18 at 10:30 Dextrose (D50w Syringe) 25 ml Q15M PRN IV DECREASED GLUCOSE; Start 08/17/18 at 10:30 Dextrose (D50w Syringe) 50 ml Q15M PRN IV DECREASED GLUCOSE; Start 08/17/18 at 10:30 Glucagon (Glucagen) 1 mg Q15M PRN IM DECREASED GLUCOSE; Start 08/17/18 at 10:30 Glucose (Glutose) 15 gm Q15M PRN BUCCAL DECREASED GLUCOSE; Start 08/17/18 at 10:30 Hydromorphone HCl (Dilaudid) 2 mg Q3 PRN IV SEVERE PAIN LEVEL 7-10 Last administered on 2/5/19at 12:27; Admin Dose 2 MG; Start 08/17/18 at 14:30 Lorazepam (Ativan) 1 mg Q6H PRN IV Anxiety Last administered on 08/31/18 14:28; Admin Dose 1 MG; Start 08/18/18 at 14:30 Zolpidem Tartrate (Ambien) 10 mg QHS PRN PO INSOMNIA Last administered on 08/30/18 20:32; Admin Dose 10 MG; Start 08/20/18 at 11:30 Phenol (Cepastat Lozenge) 1 lozenge Q1H PRN MT THROAT PAIN Last administered on 08/31/18 06:39; Admin Dose 1 LOZENGE; Start 08/21/18 at 11:00 Pantoprazole (Protonix Tab) 40 mg BID PO Last administered on 08/31/18 08:29; Admin Dose 40 MG; Start 08/25/18 at 09:00 Diphenhydramine HCl (Benadryl) 50 mg Q6H PRN IV ITCHING Last administered on 08/31/18 12:27; Admin Dose 50 MG; Start 08/26/18 at 21:00 Valacyclovir HCl (Valtrex) 1,000 mg BID PO Last administered on 08/31/18 08:28; Admin Dose 1,000 MG; Start 08/27/18 at 21:00; Stop 09/01/18 at 20:59 Dextrose 1,000 ml @ 50 mls/hr Q20H IV Last administered on 08/31/18 08:28; Admin Dose 50 MLS/HR; Start 08/31/18 at 08:00 Meds reviewed: Yes Allergies Coded Allergies: Iodinated Contrast- Oral and IV Dye (Verified Allergy, Severe, 08/20/18) Iodine and Iodide Containing Produc (Verified Allergy, Unknown, 08/13/18) Penicillins (Verified Allergy, Unknown, 08/13/18) ketorolac (Verified Allergy, Unknown, 08/13/18) morphine (Verified Allergy, Unknown, 08/13/18) vancomycin (Verified Allergy, Unknown, 08/13/18) Allergies Reviewed: Yes Labs/Studies Labs Reviewed: Reviewed by anesthesiologist Result Diagram: 08/31/18 0813 08/31/18 0647 Laboratory Tests 08/31/18 06:47 08/31/18 08:24 Blood Bank Test 08/31/18 08:23 Antibody Identification Completed Antibody Screen POSITIVE Blood Product Summary Counts Blood Type O POSITIVE Crossmatch Red Blood Cells test: N/A Pre-procedure Exam Last vitals Vital Signs Date Temp Pulse Resp B/P (MAP) Pulse Ox O2 O2 Flow FiO2 Time Delivery Rate 08/31/18 97.9 78 19 105/64 99 Room Air 14:22 (78) Airway: Adequate mouth opening, Adequate thyromental dist Mallampati: Mallampati I Teeth: Normal Lung: Normal Heart: Normal ASA Physical Status ASA physical status: 4 Emergency: None Pre-operative Attestations Prior to commencing anesthesia and surgery, the patient was re-evaluated, there was verification of: *The patient's identity *The results of appropriate recent lab work and preoperative vital signs *The above evaluation not changing prior to induction *Anesthetic plan, risk benefits, alternative and complications discussed with patient/family; questions answered; patient/family understands, accepts and wishes to proceed. JUSTIN HARRINGTON DO Aug 31, 2018 15:37
[2018-08-31] MEDS ORDERED: ETOMIDATE 20 MG INJ ONE (15:40)
[2018-08-31] MEDS ORDERED: MIDAZOLAM 1 MG/ML 2 ML INJ ONE (15:40)
--- NOTE | 2018-08-31 15:53 | HPN ---
Date/Time of Note Date/Time of Note DATE: 08/31/18 TIME: 15:53 Interval H&P Admission Note Pt. seen H&P reviewed: No system changes PRUDENCE YADAV Aug 31, 2018 15:53
--- NOTE | 2018-08-31 16:05 | PAC ---
Date/Time of Note Date/Time of Note DATE: 08/31/18 TIME: 16:05 Post-Anesthesia Notes Post-Anesthesia Note Last documented vital signs Vital Signs Date Temp Pulse Resp B/P (MAP) Pulse Ox O2 O2 Flow FiO2 Time Delivery Rate 08/31/18 98 80 19 102/65 99 Room Air 1603 Activity: WNL Respiratory function: WNL Cardiovascular function: WNL Mental status: Baseline Pain reasonably controlled: Yes Hydration appropriate: Yes Nausea/Vomiting absent: Yes JUSTIN HARRINGTON DO Aug 31, 2018 16:05
[2018-08-31] MEDS: ZOLPIDEM 5 MG TAB PO PRN (21:23)
[2018-09-01] VITALS (9 sets, daily range): BP systolic 101–124; BP diastolic 52–68; PULSE 73–100; RESP 17–21
[2018-09-01] MEDS: LORAZEPAM 2 MG INJ IV PRN ×3 (00:49→18:15)
[2018-09-01] MEDS: CEPASTAT LOZENGE MT PRN ×3 (00:59→16:32)
[2018-09-01] MEDS: HYDROmorphONE 2 MG/ML SYG IV PRN ×8 (02:07→23:49)
[2018-09-01] MEDS: DIPHENHYDRAMINE 50 MG INJ IV PRN ×4 (02:07→20:23)
[2018-09-01] MEDS: DEXTROSE 5% 1,000 ML IV SCH ×2 (03:19→19:50)
[2018-09-01] MEDS: LEVOTHYROXINE 50 MCG TAB PO SCH (06:26)
[2018-09-01] MEDS: DULOXETINE 30 MG CAP DR PO SCH (08:09)
[2018-09-01] MEDS: PANTOPRAZOLE (EC) 40 MG TAB PO SCH ×2 (08:09→20:23)
[2018-09-01] MEDS: ZINC SULFATE 220 MG CAP PO SCH (08:09)
[2018-09-01] MEDS: CHOLECALCIFEROL 2,000 UNIT CAP PO SCH (08:09)
[2018-09-01] MEDS: VALACYCLOVIR 500 MG TAB PO SCH (08:10)
--- NOTE | 2018-09-01 11:18 | PN ---
Date/Time of Note Date/Time of Note DATE: 09/01/18 TIME: 11:15 Assessment/Plan VTE Prophylaxis Risk score (from Ns)>0 risk: 8 SCD applied (from Ns): Yes Pharmacological prophylaxis: NA/contraindicated Pharm contraindication: bleeding Lines/Catheters IV C[facility] Type ([facility] PICC Line Central line still needed: Yes Urinary Cath still in place: No Assessment/Plan Hospital Course SUBJECTIVE: Denies any abdominal pain or diarrhea. Had bleeding from the left nostril yesterday. OBJECTIVE: Physical Exam General: Adequately build 52 year-old female lying in bed in no apparent distress. HEENT: Normocephalic, atraumatic. Eyes: Anicteric sclerae, conjunctivae clear. ENT: Nasal septum midline, oral mucosa moist. Ulcer in the frenulum linguae. Neck supple, no JVD noticed. Respiratory: Bilaterally clear breath sounds. No use of accessory muscles of respiration. No adventitious breath sounds. Cardiovascular: S1, S2 heard. No murmurs or gallops. Abdomen: Soft and nondistended. Minimal suprapubic tenderness. Bowel sounds positive in all 4 quadrants. Genitourinary: Deferred. Extremities: No cyanosis, no clubbing, no edema. Peripheral pulses palpable. Neurologic: Cranial nerves II through XII grossly intact. The patient is awake, alert, and oriented. Skin: Normal skin turgor. No skin rashes. Labs & Vitals per chart ASSESSMENT & PLAN This is a 52-year-old female with comorbidities including Hodgkin's lymphoma of the lung, history of thyroid cancer status post thyroid surgery,chronic pain syndrome, and. The patient came to the emergency room with history of PE status post IVC filter placement abdominal pain and bloody stools. The patient's CT scan of the abdomen and pelvis was showing colitis involving the ascending, transverse, descending colon. The patient also had underlying leukocytosis and bandemia. Therefore, the patient was admitted to inpatient setting for further treatment and evaluation. 1. Acute pancolitis. -Stool studies showing Giardia. S/P Flagyl (last day 08/21/2018) -Being followed by gastroenterology and ID. -Colonoscopy on 08/17/2018 showed patchy colitis. 2. 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 -No evidence or documented history of Hodgkin's lymphoma as per oncology. 3. History of PE. -Status post IVC filter placement. 4. Anemia. -Microcytic and hypochromic. -Monitor H&H closely. -Stool for OB x1 positive. 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 5. Chronic pain syndrome. -Pain management as per pain team. 6. Hyperglycemia. -Etiology unclear. -Hemoglobin A1c within normal limits although this could be the glycosylated hemoglobin from the transfused (donor) blood. -The patient was told by her primary care provider previously that she is borderline diabetic. -Started the patient on sliding scale insulin on 08/17/2018. -Stopped the patients insulin SSI on 08/21/2018 once the hyperglycemia was resolved. 7. Hemoptysis on 08/18/2018. -Being followed by Pulmonology. -S/P bronchoscopy on 08/24/2018 that was unremarkable. -S/P esophagogastroduodenoscopy on 08/31/2018 that showed no evidence of any gastrointestinal bleed. -?ENT source. -ENT consult. 8. Ulcer of the frenulum linguae. -Continue management as per ID. 8. Fluids, electrolytes, and nutrition. -Soft diet. 9. DVT prophylaxis -Bilateral SCDs. 10. Plan. -Continue pain control. -Obtain ENT consult. The patient was seen in collaboration with Dr. Montes. Result Diagram: 09/01/18 0631 09/01/18 0630 Results 24hrs Laboratory Tests Test 09/01/18 06:30 09/01/18 06:31 09/01/18 07:20 Sodium Level 140 Potassium Level 3.6 Chloride Level 105 Carbon Dioxide Level 28 Anion Gap 7 Blood Urea Nitrogen 9 Creatinine 0.43 L Est Glomerular Filtrat > 60 Rate mL/min Glucose Level 89 Calcium Level 8.7 White Blood Count 3.4 L Red Blood Count 3.63 #L Hemoglobin 9.0 #L Hematocrit 28.2 #L Mean Corpuscular Volume 77.7 L Mean Corpuscular Hemoglobin 24.8 L Mean Corpuscular 31.9 L Hemoglobin Concent Red Cell Distribution Width 18.8 H Platelet Count 162 Mean Platelet Volume 10.4 Immature Granulocytes % 0.300 Neutrophils % 57.6 Lymphocytes % 24.4 Monocytes % 15.1 H Eosinophils % 2.0 Basophils % 0.6 Nucleated Red Blood Cells % 0.0 Immature Granulocytes # 0.010 Neutrophils # 2.0 Lymphocytes # 0.8 Monocytes # 0.5 Eosinophils # 0.1 Basophils # 0.0 Nucleated Red Blood Cells # 0.0 Phosphorus Level 4.5 Magnesium Level 2.1 Lab Scanned Report BLOOD TRANSFUSION Exam/Review of Systems Exam Vitals Vital Signs Date Temp Pulse Resp B/P (MAP) Pulse Ox O2 O2 Flow FiO2 Time Delivery Rate 09/01/18 98.6 80 18 107/68 96 08:00 (81) 09/01/18 Room Air 05:30 Intake and Output 08/31/18 08/31/18 09/01/18 1515:00 23:00 07:00 IntakeIntake Total 150 ml 700 ml 670 ml OutputOutput Total 200 ml 650 ml BalanceBalance 150 ml 500 ml 20 ml Results Results 24hrs Laboratory Tests Test 09/01/18 06:30 09/01/18 06:31 09/01/18 07:20 Sodium Level 140 Potassium Level 3.6 Chloride Level 105 Carbon Dioxide Level 28 Anion Gap 7 Blood Urea Nitrogen 9 Creatinine 0.43 L Est Glomerular Filtrat > 60 Rate mL/min Glucose Level 89 Calcium Level 8.7 White Blood Count 3.4 L Red Blood Count 3.63 #L Hemoglobin 9.0 #L Hematocrit 28.2 #L Mean Corpuscular Volume 77.7 L Mean Corpuscular Hemoglobin 24.8 L Mean Corpuscular 31.9 L Hemoglobin Concent Red Cell Distribution Width 18.8 H Platelet Count 162 Mean Platelet Volume 10.4 Immature Granulocytes % 0.300 Neutrophils % 57.6 Lymphocytes % 24.4 Monocytes % 15.1 H Eosinophils % 2.0 Basophils % 0.6 Nucleated Red Blood Cells % 0.0 Immature Granulocytes # 0.010 Neutrophils # 2.0 Lymphocytes # 0.8 Monocytes # 0.5 Eosinophils # 0.1 Basophils # 0.0 Nucleated Red Blood Cells # 0.0 Phosphorus Level 4.5 Magnesium Level 2.1 Lab Scanned Report BLOOD TRANSFUSION Medications Medication Current Medications IV Flush (NS 3 ml) 3 ml PER PROTOCOL IV ; Start 08/13/18 at 20:00 Ondansetron HCl (Zofran Inj) 4 mg Q6H PRN IV NAUSEA AND/OR VOMITING Last administered on 08/29/18at 09:30; Admin Dose 4 MG; Start 08/13/18 at 20:00 Duloxetine HCl (Cymbalta) 60 mg DAILY PO Last administered on 09/01/18 08:09; Admin Dose 60 MG; Start 08/14/18 at 09:00 Levothyroxine Sodium (Synthroid) 50 mcg BEFORE BREAKFAST PO Last administered on 09/01/18 06:26; Admin Dose 50 MCG; Start 08/15/18 at 07:00 Alteplase, Recombinant (Cathflo (Activase)) 2 mg MAY REPEAT X1 PRN CATHETER IF CATHETER REMAINS OCCULUDED Last administered on 08/26/18at 23:34; Admin Dose 2 MG; Start 08/15/18 at 06:00 Cholecalciferol (Vitamin D) 2,000 unit DAILY PO Last administered on 09/01/18 08:09; Admin Dose 2,000 UNIT; Start 08/17/18 at 09:00 Zinc Sulfate (Zinc Sulfate) 220 mg DAILY PO Last administered on 09/01/18 08:09; Admin Dose 220 MG; Start 08/17/18 at 09:00 Eye Lubricant (Artificial Tears Oph) 1 drop Q6H PRN BOTH EYES DRY EYES Last administered on 08/19/18at 00:00; Admin Dose 1 DROP; Start 08/16/18 at 23:30 Methylnaltrexone [place] (Relistor) 12 mg Q48H SC Last administered on 08/31/18 09:31; Admin Dose 12 MG; Start 08/17/18 at 09:30 Miscellaneous Information 1 ea NOTE XX ; Start 08/17/18 at 10:30 Glucose (Glutose) 15 gm Q15M PRN PO DECREASED GLUCOSE; Start 08/17/18 at 10:30 Glucose (Glutose) 22.5 gm Q15M PRN PO DECREASED GLUCOSE; Start 08/17/18 at 10:30 Dextrose (D50w Syringe) 25 ml Q15M PRN IV DECREASED GLUCOSE; Start 08/17/18 at 10:30 Dextrose (D50w Syringe) 50 ml Q15M PRN IV DECREASED GLUCOSE; Start 08/17/18 at 10:30 Glucagon (Glucagen) 1 mg Q15M PRN IM DECREASED GLUCOSE; Start 08/17/18 at 10:30 Glucose (Glutose) 15 gm Q15M PRN BUCCAL DECREASED GLUCOSE; Start 08/17/18 at 10:30 Hydromorphone HCl (Dilaudid) 2 mg Q3 PRN IV SEVERE PAIN LEVEL 7-10 Last administered on 09/01/18 08:10; Admin Dose 2 MG; Start 08/17/18 at 14:30 Lorazepam (Ativan) 1 mg Q6H PRN IV Anxiety Last administered on 09/01/18 00:49; Admin Dose 1 MG; Start 08/18/18 at 14:30 Zolpidem Tartrate (Ambien) 10 mg QHS PRN PO INSOMNIA Last administered on 08/31/18 21:23; Admin Dose 10 MG; Start 08/20/18 at 11:30 Phenol (Cepastat Lozenge) 1 lozenge Q1H PRN MT THROAT PAIN Last administered on 09/01/18 08:10; Admin Dose 1 LOZENGE; Start 08/21/18 at 11:00 Pantoprazole (Protonix Tab) 40 mg BID PO Last administered on 09/01/18 08:09; Admin Dose 40 MG; Start 08/25/18 at 09:00 Diphenhydramine HCl (Benadryl) 50 mg Q6H PRN IV ITCHING Last administered on 09/01/18 08:10; Admin Dose 50 MG; Start 08/26/18 at 21:00 Valacyclovir HCl (Valtrex) 1,000 mg BID PO Last administered on 09/01/18 08:10; Admin Dose 1,000 MG; Start 08/27/18 at 21:00; Stop 09/01/18 at 20:59 Dextrose 1,000 ml @ 50 mls/hr Q20H IV Last administered on 08/31/18 08:28; Admin Dose 50 MLS/HR; Start 08/31/18 at 08:00 SUZANNE STEVENSON NP Sep 01, 2018 11:18
--- NOTE | 2018-09-01 13:37 | CONS ---
Assessment/Plan Assessment/Plan Hospital Course (Demo Recall) #Questionable h/o Lymphoma -patient states she was treated at [facility] however when we asked [facility] for records there is documentation of the patient ever being diagnosed or treated for lymphoma -pt told to bring in oncology records for our review -thus far there are no lesions that can be biopsied and it does not appear she has active cancer. 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 will do Follow-up CT in X 3-4 months to insure stability as recommended - 08/24/18- Repeat bronchoscopy - wnl - Given her platelets and coag panel are wnl; Bronchoscopy is wnl #pancolitis. -Colonoscopy on 08/17/2018 showed patchy colitis. bx was negative -Stool positive for Giardia- pt on vancomycin and flagyl Consultation Date/Type/Reason Admit Date/Time Aug 13, 2018 at 17:22 Initial Consult Date 08/19/18 Type of Consult oncology Reason for Consultation hemoptysis Requesting Provider: SHAQUILLE HARRIS Date/Time of Note DATE: 09/01/18 TIME: 13:29 24 HR Interval Summary Free Text/Dictation pt continues to spit up blood. EGD demonstrated hernia. received 2 units of PRBCs yesterday. still with pain abdominal pain Exam/Review of Systems Exam Vitals Vital Signs Date Temp Pulse Resp B/P (MAP) Pulse Ox O2 O2 Flow FiO2 Time Delivery Rate 09/01/18 98.6 80 18 107/68 96 08:00 (81) 09/01/18 Room Air 05:30 Intake and Output 08/31/18 08/31/18 09/01/18 1515:00 23:00 07:00 IntakeIntake Total 150 ml 700 ml 670 ml OutputOutput Total 200 ml 650 ml BalanceBalance 150 ml 500 ml 20 ml Constitutional: alert, oriented Psych: no complaints Head: normocephalic Eyes: nl conjunctiva ENMT: nl external ears & nose Neck: supple Respiratory: clear to auscultation Cardiovascular: regular rate and rhythm Gastrointestinal: tender Musculoskeletal: nl extremities to inspection Results Result Diagram: 09/01/18 0631 09/01/18 0630 Results 24hrs Laboratory Tests Test 09/01/18 06:30 09/01/18 06:31 09/01/18 07:20 09/01/18 11:58 Sodium Level 140 Potassium Level 3.6 Chloride Level 105 Carbon Dioxide 28 Level Anion Gap 7 Blood Urea 9 Nitrogen Creatinine 0.43 L Est Glomerular > 60 Filtrat Rate mL/min Glucose Level 89 Calcium Level 8.7 White Blood 3.4 L Count Red Blood Count 3.63 #L Hemoglobin 9.0 #L Hematocrit 28.2 #L Mean Corpuscular 77.7 L Volume Mean Corpuscular 24.8 L Hemoglobin Mean Corpuscular 31.9 L Hemoglobin Anamika nt Red Cell 18.8 H Distribution Width Platelet Count 162 Mean Platelet 10.4 Volume Immature 0.300 Granulocytes % Neutrophils % 57.6 Lymphocytes % 24.4 Monocytes % 15.1 H Eosinophils % 2.0 Basophils % 0.6 Nucleated Red 0.0 Blood Cells % Immature 0.010 Granulocytes # Neutrophils # 2.0 Lymphocytes # 0.8 Monocytes # 0.5 Eosinophils # 0.1 Basophils # 0.0 Nucleated Red 0.0 Blood Cells # Phosphorus Level 4.5 Magnesium Level 2.1 Lab Scanned BLOOD TRANSFUSIO REFERENCE LAB Report N Medications Medication Current Medications IV Flush (NS 3 ml) 3 ml PER PROTOCOL IV ; Start 08/13/18 at 20:00 Ondansetron HCl (Zofran Inj) 4 mg Q6H PRN IV NAUSEA AND/OR VOMITING Last administered on 08/29/18 09:30; Admin Dose 4 MG; Start 08/13/18 at 20:00 Duloxetine HCl (Cymbalta) 60 mg DAILY PO Last administered on 09/01/18at 08:09; Admin Dose 60 MG; Start 08/14/18 at 09:00 Levothyroxine Sodium (Synthroid) 50 mcg BEFORE BREAKFAST PO Last administered on 09/01/18at 06:26; Admin Dose 50 MCG; Start 08/15/18 at 07:00 Alteplase, Recombinant (Cathflo (Activase)) 2 mg MAY REPEAT X1 PRN CATHETER IF CATHETER REMAINS OCCULUDED Last administered on 08/26/18at 23:34; Admin Dose 2 MG; Start 08/15/18 at 06:00 Cholecalciferol (Vitamin D) 2,000 unit DAILY PO Last administered on 09/01/18 08:09; Admin Dose 2,000 UNIT; Start 08/17/18 at 09:00 Zinc Sulfate (Zinc Sulfate) 220 mg DAILY PO Last administered on 09/01/18 08:09; Admin Dose 220 MG; Start 08/17/18 at 09:00 Eye Lubricant (Artificial Tears Oph) 1 drop Q6H PRN BOTH EYES DRY EYES Last administered on 08/19/18at 00:00; Admin Dose 1 DROP; Start 08/16/18 at 23:30 Methylnaltrexone [place] (Relistor) 12 mg Q48H SC Last administered on 08/31/18 09:31; Admin Dose 12 MG; Start 08/17/18 at 09:30 Miscellaneous Information 1 ea NOTE XX ; Start 08/17/18 at 10:30 Glucose (Glutose) 15 gm Q15M PRN PO DECREASED GLUCOSE; Start 08/17/18 at 10:30 Glucose (Glutose) 22.5 gm Q15M PRN PO DECREASED GLUCOSE; Start 08/17/18 at 10:30 Dextrose (D50w Syringe) 25 ml Q15M PRN IV DECREASED GLUCOSE; Start 08/17/18 at 10:30 Dextrose (D50w Syringe) 50 ml Q15M PRN IV DECREASED GLUCOSE; Start 08/17/18 at 10:30 Glucagon (Glucagen) 1 mg Q15M PRN IM DECREASED GLUCOSE; Start 08/17/18 at 10:30 Glucose (Glutose) 15 gm Q15M PRN BUCCAL DECREASED GLUCOSE; Start 08/17/18 at 10:30 Hydromorphone HCl (Dilaudid) 2 mg Q3 PRN IV SEVERE PAIN LEVEL 7-10 Last administered on 09/01/18at 11:11; Admin Dose 2 MG; Start 08/17/18 at 14:30 Lorazepam (Ativan) 1 mg Q6H PRN IV Anxiety Last administered on 09/01/18 12:12; Admin Dose 1 MG; Start 08/18/18 at 14:30 Zolpidem Tartrate (Ambien) 10 mg QHS PRN PO INSOMNIA Last administered on 08/31/18 21:23; Admin Dose 10 MG; Start 08/20/18 at 11:30 Phenol (Cepastat Lozenge) 1 lozenge Q1H PRN MT THROAT PAIN Last administered on 09/01/18 08:10; Admin Dose 1 LOZENGE; Start 08/21/18 at 11:00 Pantoprazole (Protonix Tab) 40 mg BID PO Last administered on 09/01/18 08:09; Admin Dose 40 MG; Start 08/25/18 at 09:00 Diphenhydramine HCl (Benadryl) 50 mg Q6H PRN IV ITCHING Last administered on 09/01/18 08:10; Admin Dose 50 MG; Start 08/26/18 at 21:00 Valacyclovir HCl (Valtrex) 1,000 mg BID PO Last administered on 09/01/18 08:10; Admin Dose 1,000 MG; Start 08/27/18 at 21:00; Stop 09/01/18 at 20:59 Dextrose 1,000 ml @ 50 mls/hr Q20H IV Last administered on 08/31/18 08:28; Admin Dose 50 MLS/HR; Start 08/31/18 at 08:00 XIOMARA GRACIA M.D. Sep 01, 2018 13:37
--- NOTE | 2018-09-01 16:38 | CONS ---
Assessment/Plan Assessment/Plan Hospital Course (Demo Recall) sepsis, bloodstream infection - H/o "bacteremia due to enterococci" according to progress notes at [facility], but the actual microbiology report indicated blood culture was positive for ESBL+E. coli - h/o fungemia due to kaley glabrata, sensitive to fluconazole and to micaf ungin/caspofungin at [facility] - possible early SIRS vs sepsis pulm - persistent hemoptysis of unknown etiology: Pt reports negative PPD last month at [facility]. - according to the microbiology report at [facility], Pt had ESBL+E. coli in her respiratory culture. Sputum cultures for AFB and fungi were negative at 8 weeks and at 4 weeks respectively at [facility] - Pt had negative bronchoscopy in 05/2018 at [facility], another at [facility] in 2017, and on 08/25/2018 at [facility] (no e/o bronchial airway bleeding according to Dr. Bello - Numerous tiny lung nodules, increased in number from the chest CT dated May 22, 2018, with largest measuring 0.3 cm in the left apex - so far: aspergillus antibody not detected, HIV negative, coccidioidomycosis serology negative GI - Lucero-colitis per CT - S/p sigmoidoscopy with biopsy 08/17/2018; path showed no e/o colitis or malignancy from transverse colon and rectum biopsies - S/p bloody diarrhea d/t Giardia; Pt took metronidazole for Giardia (08/14/2018- 08/21/2018) in 07/2018. - H/o C diff toxin negative PCR positive status at [facility]. Took a course of Fidaxomyxin x 10 days. C. diff was negative on 08/14/2018 at [facility] - H/o cholecystectomy heme/oncology - S/p CT guided bone marrow aspiration and biopsy 08/20/2018 - Microcytic anemia requiring PRBC d/t acute blood loss - H/o BUE and RLE DVT, s/p IVC filter in January 2018 - H/o Hodgkin lymphoma diagnosed in 2006 - H/o thyroid CA diagnosed in 2005, s/p resection, chemo and XRT - IVC filter placement - +Family hx of cancer (father of stomach CA, mother of lymphoma, paternal uncle had breast CA and 12 yo daughter has h/o brain tumor s/p surgery and resulting blindness) , renal - h/o UTI due to ESBL+E. coli other conditions - a painful ulcer at frenulum, recurrent. According to Pt, topical steroid would worsen the pain. HIV negative, RPR non reactive, herpes 1 and 2 by PCR not detected; s/p trial of PO valacyclovir (08/27/2018-09/01/2018) - s/p bilateral conjunctivitis - improved s/p Cipro eye drops (08/18/18-08/23/18) - Hypothyroidism - HLD - Hypokalemia - OA - depression/anxiety - H/o x2 - Allergy to PCN and vancomycin (reaction unknown) Recommendations: - ordered lucero cultures, lactic acid, procalcitonin, CXR - trend fever curve - pending results: sputum fungal culture (in process. growing kaley so far), 1,3-apuf-c-glucan - s/p PO levofloxacin (08/24/2018-08/28/2018) for probable UTI Management d/w patient, FERNANDO Barney, and with Dr. Hansen Consultation Date/Type/Reason Admit Date/Time Aug 13, 2018 at 17:22 Initial Consult Date 08/19/18 Type of Consult Infectious Disease Requesting Provider: SHAQUILLE HARRIS Date/Time of Note DATE: 09/01/18 TIME: 16:38 24 HR Interval Summary Free Text/Dictation S/p EGD yesterday - results unremarkable. Per GI, "hemoptysis likely pulmonary/ENT etiology". ENT consulted per chart review. Pt with less hemoptysis. C/o chills and now with low grade fever of 100 F. C/o pleuritic and upper back discomfort with cough rating 7/10. Also has discomfort r/t tongue ulcer. Exam/Review of Systems Exam Vitals Vital Signs Date Temp Pulse Resp B/P (MAP) Pulse Ox O2 O2 Flow FiO2 Time Delivery Rate 09/01/18 99.6 91 21 113/59 96 14:00 (77) 09/01/18 Room Air 05:30 Intake and Output 08/31/18 08/31/18 09/01/18 1515:00 23:00 07:00 IntakeIntake Total 150 ml 700 ml 670 ml OutputOutput Total 200 ml 650 ml BalanceBalance 150 ml 500 ml 20 ml Exam Constitutional: alert, oriented, well developed, frail, other (+chills) Psych: nl mood/affect Head: normocephalic, atraumatic Eyes: nl conjunctiva, nl lids, nl sclera ENMT: nl external ears & nose, nl nasal mucosa & septum, mucosa pink and moist, other (white ulcer of the frenulum linguae) Neck: supple, non-tender Respiratory: normal air movement, crackles/rales, other (hemoptysis noted in cup and urinal at bedside) Cardiovascular: regular rate and rhythm (slightly tachycardic), nl pulses Gastrointestinal: soft, non-tender; No distended Musculoskeletal: nl extremities to inspection; No swelling Extremities: normal pulses Neurological: nl mental status, nl speech Skin: nl turgor; No rash or lesions Results Result Diagram: 09/01/18 0631 09/01/18 0630 Results 24hrs Laboratory Tests Test 09/01/18 06:30 09/01/18 06:31 09/01/18 07:20 09/01/18 11:58 Sodium Level 140 Potassium Level 3.6 Chloride Level 105 Carbon Dioxide 28 Level Anion Gap 7 Blood Urea 9 Nitrogen Creatinine 0.43 L Est Glomerular > 60 Filtrat Rate mL/min Glucose Level 89 Calcium Level 8.7 White Blood 3.4 L Count Red Blood Count 3.63 #L Hemoglobin 9.0 #L Hematocrit 28.2 #L Mean Corpuscular 77.7 L Volume Mean Corpuscular 24.8 L Hemoglobin Mean Corpuscular 31.9 L Hemoglobin Anamika nt Red Cell 18.8 H Distribution Width Platelet Count 162 Mean Platelet 10.4 Volume Immature 0.300 Granulocytes % Neutrophils % 57.6 Lymphocytes % 24.4 Monocytes % 15.1 H Eosinophils % 2.0 Basophils % 0.6 Nucleated Red 0.0 Blood Cells % Immature 0.010 Granulocytes # Neutrophils # 2.0 Lymphocytes # 0.8 Monocytes # 0.5 Eosinophils # 0.1 Basophils # 0.0 Nucleated Red 0.0 Blood Cells # Phosphorus Level 4.5 Magnesium Level 2.1 Lab Scanned BLOOD TRANSFUSIO REFERENCE LAB Report N Medications Medication Current Medications IV Flush (NS 3 ml) 3 ml PER PROTOCOL IV ; Start 08/13/18 at 20:00 Ondansetron HCl (Zofran Inj) 4 mg Q6H PRN IV NAUSEA AND/OR VOMITING Last administered on 08/29/18 09:30; Admin Dose 4 MG; Start 08/13/18 at 20:00 Duloxetine HCl (Cymbalta) 60 mg DAILY PO Last administered on 09/01/18 08:09; Admin Dose 60 MG; Start 08/14/18 at 09:00 Levothyroxine Sodium (Synthroid) 50 mcg BEFORE BREAKFAST PO Last administered on 09/01/18 06:26; Admin Dose 50 MCG; Start 08/15/18 at 07:00 Alteplase, Recombinant (Cathflo (Activase)) 2 mg MAY REPEAT X1 PRN CATHETER IF CATHETER REMAINS OCCULUDED Last administered on 08/26/18 23:34; Admin Dose 2 MG; Start 08/15/18 at 06:00 Cholecalciferol (Vitamin D) 2,000 unit DAILY PO Last administered on 09/01/18 08:09; Admin Dose 2,000 UNIT; Start 08/17/18 at 09:00 Zinc Sulfate (Zinc Sulfate) 220 mg DAILY PO Last administered on 09/01/18 08:09; Admin Dose 220 MG; Start 08/17/18 at 09:00 Eye Lubricant (Artificial Tears Oph) 1 drop Q6H PRN BOTH EYES DRY EYES Last administered on 08/19/18at 00:00; Admin Dose 1 DROP; Start 08/16/18 at 23:30 Methylnaltrexone [place] (Relistor) 12 mg Q48H SC Last administered on 08/31/18 09:31; Admin Dose 12 MG; Start 08/17/18 at 09:30 Miscellaneous Information 1 ea NOTE XX ; Start 08/17/18 at 10:30 Glucose (Glutose) 15 gm Q15M PRN PO DECREASED GLUCOSE; Start 08/17/18 at 10:30 Glucose (Glutose) 22.5 gm Q15M PRN PO DECREASED GLUCOSE; Start 08/17/18 at 10:30 Dextrose (D50w Syringe) 25 ml Q15M PRN IV DECREASED GLUCOSE; Start 08/17/18 at 10:30 Dextrose (D50w Syringe) 50 ml Q15M PRN IV DECREASED GLUCOSE; Start 08/17/18 at 10:30 Glucagon (Glucagen) 1 mg Q15M PRN IM DECREASED GLUCOSE; Start 08/17/18 at 10:30 Glucose (Glutose) 15 gm Q15M PRN BUCCAL DECREASED GLUCOSE; Start 08/17/18 at 10:30 Hydromorphone HCl (Dilaudid) 2 mg Q3 PRN IV SEVERE PAIN LEVEL 7-10 Last administered on 09/01/18 14:15; Admin Dose 2 MG; Start 08/17/18 at 14:30 Lorazepam (Ativan) 1 mg Q6H PRN IV Anxiety Last administered on 09/01/18 12:12; Admin Dose 1 MG; Start 08/18/18 at 14:30 Zolpidem Tartrate (Ambien) 10 mg QHS PRN PO INSOMNIA Last administered on 08/31/18 21:23; Admin Dose 10 MG; Start 08/20/18 at 11:30 Phenol (Cepastat Lozenge) 1 lozenge Q1H PRN MT THROAT PAIN Last administered on 09/01/18 16:32; Admin Dose 1 LOZENGE; Start 08/21/18 at 11:00 Pantoprazole (Protonix Tab) 40 mg BID PO Last administered on 09/01/18 08:09; Admin Dose 40 MG; Start 08/25/18 at 09:00 Diphenhydramine HCl (Benadryl) 50 mg Q6H PRN IV ITCHING Last administered on 09/01/18 14:15; Admin Dose 50 MG; Start 08/26/18 at 21:00 Valacyclovir HCl (Valtrex) 1,000 mg BID PO Last administered on 09/01/18 08:10; Admin Dose 1,000 MG; Start 08/27/18 at 21:00; Stop 09/01/18 at 20:59 Dextrose 1,000 ml @ 50 mls/hr Q20H IV Last administered on 08/31/18 08:28; Ad min Dose 50 MLS/HR; Start 08/31/18 at 08:00 RICHARD APPLE NP Sep 01, 2018 16:38
--- NOTE | 2018-09-01 19:38 | CONS ---
Assessment/Plan Assessment/Plan Assessment/Plan (Daily) 52-year-old female with a one-week history of hemoptysis. Although she has evidence of recent left-sided epistaxis, I do not feel this is a source of her hemoptysis. Typically, anterior nosebleeds will bleed out of the nostril and not down the throat. Moreover, if it were to drip down her throat, she would most likely have swallowed the blood and not aspirate it. Therefore, the source of her hemoptysis is likely pulmonary. Recommend nasal saline spray to keep the nasal mucosa moist to avoid future epistaxis. There are no other sources of bleeding noted on her laryngoscopy. Consultation Date/Type/Reason Admit Date/Time Aug 13, 2018 at 17:22 Date of Consultation: Sep 01, 2018 Type of Consult Ear, nose and throat Reason for Consultation Hemoptysis Date/Time of Note DATE: 09/01/18 TIME: 19:33 Hx of Present Illness The patient is a 52-year-old female with multiple medical problems. ENT has been consulted to evaluate for the source of her hemoptysis. The patient states that her hemoptysis has been is present for 6 days. She states that blood is only present when she coughs. She states there is no blood when she just spit out sputum without a cough. Last night she had a nosebleed. However this was the first time of having one. Past Medical History Medical History: cancer, other (Hodgkin's lymphoma) Home Meds Reported Medications Zolpidem Tartrate* (Ambien*) 5 Mg Tablet, 5 MG PO QHS PRN for INSOMNIA, #30 TAB 08/13/18 Cholecalciferol* (Vitamin D3*) 1,000 Unit Tablet, 1000 UNIT PO DAILY, TAB 08/13/18 Cholecalciferol* (Vitamin D3*) 1,000 Unit Tablet, 2000 UNIT PO DAILY, TAB 08/13/18 Potassium Chloride* (Potassium Chloride*) 20 Meq Tablet.er, 20 MEQ PO DAILY, TAB.SA 08/13/18 Duloxetine Hcl* (Cymbalta*) 60 Mg Capsule.dr, 60 MG PO DAILY, CAP 08/13/18 Oxycodone Hcl* (Oxycontin*) 15 Mg Tab.sr.12h, 15 MG PO Q12, TAB 08/13/18 Hydromorphone Hcl* (Dilaudid*) 8 Mg Tablet, 8 MG PO Q6H PRN for PAIN, TAB 08/13/18 Pantoprazole* (Protonix*) 40 Mg Tablet.dr, 40 MG PO AC BREAKFAST, TAB 08/13/18 Levothyroxine Sodium* (Levothyroxine Sodium*) 25 Mcg Tablet, 25 MCG PO BEFORE BREAKFAST, #30 TAB 08/13/18 Medications Current Medications IV Flush (NS 3 ml) 3 ml PER PROTOCOL IV ; Start 08/13/18 at 20:00 Ondansetron HCl (Zofran Inj) 4 mg Q6H PRN IV NAUSEA AND/OR VOMITING Last ad ministered on 08/29/18 09:30; Admin Dose 4 MG; Start 08/13/18 at 20:00 Duloxetine HCl (Cymbalta) 60 mg DAILY PO Last administered on 09/01/18 08:09; Admin Dose 60 MG; Start 08/14/18 at 09:00 Levothyroxine Sodium (Synthroid) 50 mcg BEFORE BREAKFAST PO Last administered on 09/01/18 06:26; Admin Dose 50 MCG; Start 08/15/18 at 07:00 Alteplase, Recombinant (Cathflo (Activase)) 2 mg MAY REPEAT X1 PRN CATHETER IF CATHETER REMAINS OCCULUDED Last administered on 08/26/18 23:34; Admin Dose 2 MG; Start 08/15/18 at 06:00 Cholecalciferol (Vitamin D) 2,000 unit DAILY PO Last administered on 09/01/18 08:09; Admin Dose 2,000 UNIT; Start 08/17/18 at 09:00 Zinc Sulfate (Zinc Sulfate) 220 mg DAILY PO Last administered on 09/01/18 08:09; Admin Dose 220 MG; Start 08/17/18 at 09:00 Eye Lubricant (Artificial Tears Oph) 1 drop Q6H PRN BOTH EYES DRY EYES Last administered on 08/19/18 00:00; Admin Dose 1 DROP; Start 08/16/18 at 23:30 Methylnaltrexone [place] (Relistor) 12 mg Q48H SC Last administered on 08/31/18 09:31; Admin Dose 12 MG; Start 08/17/18 at 09:30 Miscellaneous Information 1 ea NOTE XX ; Start 08/17/18 at 10:30 Glucose (Glutose) 15 gm Q15M PRN PO DECREASED GLUCOSE; Start 08/17/18 at 10:30 Glucose (Glutose) 22.5 gm Q15M PRN PO DECREASED GLUCOSE; Start 08/17/18 at 10:30 Dextrose (D50w Syringe) 25 ml Q15M PRN IV DECREASED GLUCOSE; Start 08/17/18 at 10:30 Dextrose (D50w Syringe) 50 ml Q15M PRN IV DECREASED GLUCOSE; Start 08/17/18 at 10:30 Glucagon (Glucagen) 1 mg Q15M PRN IM DECREASED GLUCOSE; Start 08/17/18 at 10:30 Glucose (Glutose) 15 gm Q15M PRN BUCCAL DECREASED GLUCOSE; Start 08/17/18 at 10:30 Hydromorphone HCl (Dilaudid) 2 mg Q3 PRN IV SEVERE PAIN LEVEL 7-10 Last adm inistered on 09/01/18 17:29; Admin Dose 2 MG; Start 08/17/18 at 14:30 Lorazepam (Ativan) 1 mg Q6H PRN IV Anxiety Last administered on 09/01/18 18:15; Admin Dose 1 MG; Start 08/18/18 at 14:30 Zolpidem Tartrate (Ambien) 10 mg QHS PRN PO INSOMNIA Last administered on 08/31/18 21:23; Admin Dose 10 MG; Start 08/20/18 at 11:30 Phenol (Cepastat Lozenge) 1 lozenge Q1H PRN MT THROAT PAIN Last administered on 09/01/18 16:32; Admin Dose 1 LOZENGE; Start 08/21/18 at 11:00 Pantoprazole (Protonix Tab) 40 mg BID PO Last administered on 09/01/18 08:09; Admin Dose 40 MG; Start 08/25/18 at 09:00 Diphenhydramine HCl (Benadryl) 50 mg Q6H PRN IV ITCHING Last administered on 09/01/18 14:15; Admin Dose 50 MG; Start 08/26/18 at 21:00 Valacyclovir HCl (Valtrex) 1,000 mg BID PO Last administered on 09/01/18 08:10; Admin Dose 1,000 MG; Start 08/27/18 at 21:00; Stop 09/01/18 at 20:59 Dextrose 1,000 ml @ 50 mls/hr Q20H IV Last administered on 08/31/18at 08:28; Admin Dose 50 MLS/HR; Start 08/31/18 at 08:00 Acetaminophen (Tylenol Tab) 500 mg Q6H PRN PO MILD PAIN(1-3)OR ELEVATED TEMP; Start 09/01/18 at 18:30 Allergies: Coded Allergies: Iodinated Contrast- Oral and IV Dye (Verified Allergy, Severe, 08/20/18) Iodine and Iodide Containing Produc (Verified Allergy, Unknown, 08/13/18) Penicillins (Verified Allergy, Unknown, 08/13/18) ketorolac (Verified Allergy, Unknown, 08/13/18) morphine (Verified Allergy, Unknown, 08/13/18) vancomycin (Verified Allergy, Unknown, 08/13/18) Past Surgical History Past Surgical Hx: other (See HPI) Social History Alcohol Use: none Smoking Status: Never smoker Drug Use: none Exam/Review of Systems Exam Vitals Vital Signs Date Temp Pulse Resp B/P (MAP) Pulse Ox O2 O2 Flow FiO2 Time Delivery Rate 09/01/18 99.9 18:32 09/01/18 95 16:00 09/01/18 21 113/59 96 14:00 (77) 09/01/18 Room Air 05:30 Intake and Output 08/31/18 08/31/18 09/01/18 1515:00 23:00 07:00 IntakeIntake Total 150 ml 700 ml 670 ml OutputOutput Total 200 ml 650 ml BalanceBalance 150 ml 500 ml 20 ml ENMT: nl external ears & nose, other (Small amount of dried blood at left anterior septum. Right nasal cavity clear both nasal cavities anesthetized and a flexible laryngoscope was advanced into both nasal cavities. There are no masses or sources of bleeding were found in the nasal cavity or nasopharynx. The scope was advanced down into the oropharynx and hypopharynx and no source of bleeding was encountered. The larynx was completely normal without any masses or sources of bleeding.) Results Result Diagram: 09/01/18 0631 09/01/18 0630 Results 24hrs Laboratory Tests Test 09/01/18 06:30 09/01/18 06:31 09/01/18 07:20 09/01/18 11:58 Sodium Level 140 Potassium Level 3.6 Chloride Level 105 Carbon Dioxide 28 Level Anion Gap 7 Blood Urea 9 Nitrogen Creatinine 0.43 L Est Glomerular > 60 Filtrat Rate mL/min Glucose Level 89 Calcium Level 8.7 White Blood 3.4 L Count Red Blood Count 3.63 #L Hemoglobin 9.0 #L Hematocrit 28.2 #L Mean Corpuscular 77.7 L Volume Mean Corpuscular 24.8 L Hemoglobin Mean Corpuscular 31.9 L Hemoglobin Anamika nt Red Cell 18.8 H Distribution Width Platelet Count 162 Mean Platelet 10.4 Volume Immature 0.300 Granulocytes % Neutrophils % 57.6 Lymphocytes % 24.4 Monocytes % 15.1 H Eosinophils % 2.0 Basophils % 0.6 Nucleated Red 0.0 Blood Cells % Immature 0.010 Granulocytes # Neutrophils # 2.0 Lymphocytes # 0.8 Monocytes # 0.5 Eosinophils # 0.1 Basophils # 0.0 Nucleated Red 0.0 Blood Cells # Phosphorus Level 4.5 Magnesium Level 2.1 Lab Scanned BLOOD TRANSFUSIO REFERENCE LAB Report N Test 09/01/18 16:57 Lactic Acid 1.1 Level Medications Medication Current Medications IV Flush (NS 3 ml) 3 ml PER PROTOCOL IV ; Start 08/13/18 at 20:00 Ondansetron HCl (Zofran Inj) 4 mg Q6H PRN IV NAUSEA AND/OR VOMITING Last administered on 08/29/18 09:30; Admin Dose 4 MG; Start 08/13/18 at 20:00 Duloxetine HCl (Cymbalta) 60 mg DAILY PO Last administered on 09/01/18at 08:09; Admin Dose 60 MG; Start 08/14/18 at 09:00 Levothyroxine Sodium (Synthroid) 50 mcg BEFORE BREAKFAST PO Last administered on 09/01/18at 06:26; Admin Dose 50 MCG; Start 08/15/18 at 07:00 Alteplase, Recombinant (Cathflo (Activase)) 2 mg MAY REPEAT X1 PRN CATHETER IF CATHETER REMAINS OCCULUDED Last administered on 08/26/18at 23:34; Admin Dose 2 MG; Start 08/15/18 at 06:00 Cholecalciferol (Vitamin D) 2,000 unit DAILY PO Last administered on 09/01/18at 08:09; Admin Dose 2,000 UNIT; Start 08/17/18 at 09:00 Zinc Sulfate (Zinc Sulfate) 220 mg DAILY PO Last administered on 09/01/18 08:09; Admin Dose 220 MG; Start 08/17/18 at 09:00 Eye Lubricant (Artificial Tears Oph) 1 drop Q6H PRN BOTH EYES DRY EYES Last administered on 08/19/18at 00:00; Admin Dose 1 DROP; Start 08/16/18 at 23:30 Methylnaltrexone [place] (Relistor) 12 mg Q48H SC Last administered on 08/31/18 09:31; Admin Dose 12 MG; Start 08/17/18 at 09:30 Miscellaneous Information 1 ea NOTE XX ; Start 08/17/18 at 10:30 Glucose (Glutose) 15 gm Q15M PRN PO DECREASED GLUCOSE; Start 08/17/18 at 10:30 Glucose (Glutose) 22.5 gm Q15M PRN PO DECREASED GLUCOSE; Start 08/17/18 at 10:30 Dextrose (D50w Syringe) 25 ml Q15M PRN IV DECREASED GLUCOSE; Start 08/17/18 at 10:30 Dextrose (D50w Syringe) 50 ml Q15M PRN IV DECREASED GLUCOSE; Start 08/17/18 at 10:30 Glucagon (Glucagen) 1 mg Q15M PRN IM DECREASED GLUCOSE; Start 08/17/18 at 10:30 Glucose (Glutose) 15 gm Q15M PRN BUCCAL DECREASED GLUCOSE; Start 08/17/18 at 10:30 Hydromorphone HCl (Dilaudid) 2 mg Q3 PRN IV SEVERE PAIN LEVEL 7-10 Last administered on 09/01/18 17:29; Admin Dose 2 MG; Start 08/17/18 at 14:30 Lorazepam (Ativan) 1 mg Q6H PRN IV Anxiety Last administered on 09/01/18 18:15; Admin Dose 1 MG; Start 08/18/18 at 14:30 Zolpidem Tartrate (Ambien) 10 mg QHS PRN PO INSOMNIA Last administered on 08/31/18 21:23; Admin Dose 10 MG; Start 08/20/18 at 11:30 Phenol (Cepastat Lozenge) 1 lozenge Q1H PRN MT THROAT PAIN Last administered on 09/01/18 16:32; Admin Dose 1 LOZENGE; Start 08/21/18 at 11:00 Pantoprazole (Protonix Tab) 40 mg BID PO Last administered on 09/01/18 08:09; Admin Dose 40 MG; Start 08/25/18 at 09:00 Diphenhydramine HCl (Benadryl) 50 mg Q6H PRN IV ITCHING Last administered on 09/01/18at 14:15; Admin Dose 50 MG; Start 08/26/18 at 21:00 Valacyclovir HCl (Valtrex) 1,000 mg BID PO Last administered on 09/01/18 08:10; Admin Dose 1,000 MG; Start 08/27/18 at 21:00; Stop 09/01/18 at 20:59 Dextrose 1,000 ml @ 50 mls/hr Q20H IV Last administered on 08/31/18 08:28; Admin Dose 50 MLS/HR; Start 08/31/18 at 08:00 Acetaminophen (Tylenol Tab) 500 mg Q6H PRN PO MILD PAIN(1-3)OR ELEVATED TEMP; Start 09/01/18 at 18:30 RON MCKEON MD Sep 01, 2018 19:38
[2018-09-01] MEDS: ZOLPIDEM 5 MG TAB PO PRN (21:30)
[2018-09-02] MEDS: LORAZEPAM 2 MG INJ IV PRN ×3 (01:12→21:22)
[2018-09-02 02:06] VITALS: BP 112/62; PULSE 69; RESP 20
[2018-09-02] MEDS: DIPHENHYDRAMINE 50 MG INJ IV PRN ×4 (02:18→20:10)
[2018-09-02] MEDS: HYDROmorphONE 2 MG/ML SYG IV PRN ×8 (02:19→23:09)
[2018-09-02] MEDS: LEVOTHYROXINE 50 MCG TAB PO SCH (07:09)
[2018-09-02 07:54] VITALS: BP 104/53; PULSE 78; RESP 20
[2018-09-02] MEDS: METHYLNALTREXONE 12 MG/0.6 ML VIAL SC SCH (08:08)
[2018-09-02] MEDS: DULOXETINE 30 MG CAP DR PO SCH (08:09)
[2018-09-02] MEDS: CHOLECALCIFEROL 2,000 UNIT CAP PO SCH (08:09)
[2018-09-02] MEDS: PANTOPRAZOLE (EC) 40 MG TAB PO SCH ×2 (08:09→21:00)
[2018-09-02] MEDS: ZINC SULFATE 220 MG CAP PO SCH (08:09)
[2018-09-02] MEDS ORDERED: LIDOCAINE 2% VISC 15 ML CUP PO PRN (10:30)
--- NOTE | 2018-09-02 10:42 | PN ---
Date/Time of Note Date/Time of Note DATE: 09/02/18 TIME: 10:41 Assessment/Plan VTE Prophylaxis Risk score (from Ns)>0 risk: 9 [place] [facility] [place]CD contraindicated: other Pharmacological prophylaxis: NA/contraindicated Pharm contraindication: bleeding Lines/Catheters IV [facility] Type (from [facility] PICC Line Central line still needed: Yes Urinary Cath still in place: No Assessment/Plan Hospital Course SUBJECTIVE: Denies any abdominal pain or diarrhea. Reports hemoptysis. Had febrile illness last night. OBJECTIVE: Physical Exam General: Adequately build 52 year-old female lying in bed in no apparent distress. HEENT: Normocephalic, atraumatic. Eyes: Anicteric sclerae, conjunctivae clear. ENT: Nasal septum midline, oral mucosa moist. Ulcer in the frenulum linguae. Neck supple, no JVD noticed. Respiratory: Bilaterally clear breath sounds. No use of accessory muscles of respiration. No adventitious breath sounds. Cardiovascular: S1, S2 heard. No murmurs or gallops. Abdomen: Soft, nondistended, nontender. Bowel sounds positive in all 4 quadrants. Genitourinary: Deferred. Extremities: No cyanosis, no clubbing, no edema. Peripheral pulses palpable. Neurologic: Cranial nerves II through XII grossly intact. The patient is awake, alert, and oriented. Skin: Normal skin turgor. No skin rashes. 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 The patient's CT scan of the abdomen and pelvis was showing colitis involving the ascending, transverse, descending colon. The patient also had underlying leukocytosis and bandemia. Therefore, the patient was admitted to inpatient setting for further treatment and evaluation. 1. Acute pancolitis. -Stool studies showing Giardia. S/P Flagyl (last day 08/21/2018) -Being followed by gastroenterology and ID. -Colonoscopy on 08/17/2018 showed patchy colitis. 2. Fevers with Gram positive bacteremia on 09/01/2018. -The patient is allergic to vancomycin. -Start the patient on cefazolin for MSSA coverage. PRN Benadryl available for possible cross reaction between penicillin since the patient is allergic to penicillin. 3. 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 -No evidence or documented history of Hodgkin's lymphoma as per oncology. 4. History of PE. -Status post IVC filter placement. 5. Anemia. -Microcytic and hypochromic. -Monitor H&H closely. -Stool for OB x1 positive. 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 6. Chronic pain syndrome. -Pain management as per pain team. 7. Hyperglycemia. -Etiology unclear. -Hemoglobin A1c within normal limits although this could be the glycosylated hemoglobin from the transfused (donor) blood. -The patient was told by her primary care provider previously that she is borderline diabetic. -Started the patient on sliding scale insulin on 08/17/2018. -Stopped the patients insulin SSI on 08/21/2018 once the hyperglycemia was resolved. 8. Hemoptysis on 08/18/2018. -Being followed by Pulmonology. -S/P bronchoscopy on 08/24/2018 that was unremarkable. -S/P esophagogastroduodenoscopy on 08/31/2018 that showed no evidence of any gastrointestinal bleed. -Status post ENT evaluation along with laryngoscopy on 09/01/2018 with no evidence of any bleeding site history of hemoptysis. -Send sputum sample for evaluation of hemoglobin. 9. Ulcer of the frenulum linguae. -Continue management as per ID. 10. Fluids, electrolytes, and nutrition. -Soft diet. 11. DVT prophylaxis -Bilateral SCDs. 12. Plan. -Continue pain control. -Start antimicrobials. -Replete potassium. The patient was seen in collaboration with Dr. Montes. Result Diagram: 09/02/18 0608 09/02/18 0608 Results 24hrs Laboratory Tests Test 09/01/18 11:58 09/01/18 16:57 09/02/18 06:08 09/02/18 07:17 Lab Scanned REFERENCE LAB BLOOD TRANSFUSIO Report N Lactic Acid 1.1 Level White Blood 4.5 #L Count Red Blood Count 3.68 L Hemoglobin 9.2 L Hematocrit 28.4 L Mean Corpuscular 77.2 L Volume Mean Corpuscular 25.0 L Hemoglobin Mean Corpuscular 32.4 Hemoglobin Anamika nt Red Cell 18.7 H Distribution Width Platelet Count 167 Mean Platelet 10.3 Volume Immature 0.400 Granulocytes % Neutrophils % 73.5 Lymphocytes % 13.9 L Monocytes % 9.5 Eosinophils % 2.0 Basophils % 0.7 Nucleated Red 0.0 Blood Cells % Immature 0.020 Granulocytes # Neutrophils # 3.3 Lymphocytes # 0.6 L Monocytes # 0.4 Eosinophils # 0.1 Basophils # 0.0 Nucleated Red 0.0 Blood Cells # Sodium Level 140 Potassium Level 3.0 L Chloride Level 103 Carbon Dioxide 28 Level Anion Gap 9 Blood Urea 10 Nitrogen Creatinine 0.42 L Est Glomerular > 60 Filtrat Rate mL/min Glucose Level 130 # Calcium Level 8.8 Phosphorus Level 5.0 H Magnesium Level 1.9 Exam/Review of Systems Exam Vitals Vital Signs Date Temp Pulse Resp B/P (MAP) Pulse Ox O2 O2 Flow FiO2 Time Delivery Rate 09/02/18 98.4 78 20 104/53 97 Room Air 07:54 (70) Intake and Output 09/01/18 09/01/18 09/02/18 1515:00 23:00 07:00 IntakeIntake Total 700 ml 850 ml 1050 ml OutputOutput Total 150 ml 200 ml BalanceBalance 700 ml 700 ml 850 ml Results Results 24hrs Laboratory Tests Test 09/01/18 11:58 09/01/18 16:57 09/02/18 06:08 09/02/18 07:17 Lab Scanned REFERENCE LAB BLOOD TRANSFUSIO Report N Lactic Acid 1.1 Level White Blood 4.5 #L Count Red Blood Count 3.68 L Hemoglobin 9.2 L Hematocrit 28.4 L Mean Corpuscular 77.2 L Volume Mean Corpuscular 25.0 L Hemoglobin Mean Corpuscular 32.4 Hemoglobin Anamika nt Red Cell 18.7 H Distribution Width Platelet Count 167 Mean Platelet 10.3 Volume Immature 0.400 Granulocytes % Neutrophils % 73.5 Lymphocytes % 13.9 L Monocytes % 9.5 Eosinophils % 2.0 Basophils % 0.7 Nucleated Red 0.0 Blood Cells % Immature 0.020 Granulocytes # Neutrophils # 3.3 Lymphocytes # 0.6 L Monocytes # 0.4 Eosinophils # 0.1 Basophils # 0.0 Nucleated Red 0.0 Blood Cells # Sodium Level 140 Potassium Level 3.0 L Chloride Level 103 Carbon Dioxide 28 Level Anion Gap 9 Blood Urea 10 Nitrogen Creatinine 0.42 L Est Glomerular > 60 Filtrat Rate mL/min Glucose Level 130 # Calcium Level 8.8 Phosphorus Level 5.0 H Magnesium Level 1.9 Medications Medication Current Medications IV Flush (NS 3 ml) 3 ml PER PROTOCOL IV ; Start 08/13/18 at 20:00 Ondansetron HCl (Zofran Inj) 4 mg Q6H PRN IV NAUSEA AND/OR VOMITING Last administered on 08/29/18 09:30; Admin Dose 4 MG; Start 08/13/18 at 20:00 Duloxetine HCl (Cymbalta) 60 mg DAILY PO Last administered on 09/02/18 08:09; Admin Dose 60 MG; Start 08/14/18 at 09:00 Levothyroxine Sodium (Synthroid) 50 mcg BEFORE BREAKFAST PO Last administered on 09/02/18 07:09; Admin Dose 50 MCG; Start 08/15/18 at 07:00 Alteplase, Recombinant (Cathflo (Activase)) 2 mg MAY REPEAT X1 PRN CATHETER IF CATHETER REMAINS OCCULUDED Last administered on 08/26/18 23:34; Admin Dose 2 MG; Start 08/15/18 at 06:00 Cholecalciferol (Vitamin D) 2,000 unit DAILY PO Last administered on 09/02/18 08:09; Admin Dose 2,000 UNIT; Start 08/17/18 at 09:00 Zinc Sulfate (Zinc Sulfate) 220 mg DAILY PO Last administered on 09/02/18 08:09; Admin Dose 220 MG; Start 08/17/18 at 09:00 Eye Lubricant (Artificial Tears Oph) 1 drop Q6H PRN BOTH EYES DRY EYES Last administered on 08/19/18 00:00; Admin Dose 1 DROP; Start 08/16/18 at 23:30 Methylnaltrexone [place] (Relistor) 12 mg Q48H SC Last administered on 09/02/18 08:08; Admin Dose 12 MG; Start 08/17/18 at 09:30 Miscellaneous Information 1 ea NOTE XX ; Start 08/17/18 at 10:30 Glucose (Glutose) 15 gm Q15M PRN PO DECREASED GLUCOSE; Start 08/17/18 at 10:30 Glucose (Glutose) 22.5 gm Q15M PRN PO DECREASED GLUCOSE; Start 08/17/18 at 10:30 Dextrose (D50w Syringe) 25 ml Q15M PRN IV DECREASED GLUCOSE; Start 08/17/18 at 10:30 Dextrose (D50w Syringe) 50 ml Q15M PRN IV DECREASED GLUCOSE; Start 08/17/18 at 10:30 Glucagon (Glucagen) 1 mg Q15M PRN IM DECREASED GLUCOSE; Start 08/17/18 at 10:30 Glucose (Glutose) 15 gm Q15M PRN BUCCAL DECREASED GLUCOSE; Start 08/17/18 at 10:30 Hydromorphone HCl (Dilaudid) 2 mg Q3 PRN IV SEVERE PAIN LEVEL 7-10 Last administered on 09/02/18 08:11; Admin Dose 2 MG; Start 08/17/18 at 14:30 Lorazepam (Ativan) 1 mg Q6H PRN IV Anxiety Last administered on 09/02/18 09:54; Admin Dose 1 MG; Start 08/18/18 at 14:30 Zolpidem Tartrate (Ambien) 10 mg QHS PRN PO INSOMNIA Last administered on 09/01/18 21:30; Admin Dose 10 MG; Start 08/20/18 at 11:30 Phenol (Cepastat Lozenge) 1 lozenge Q1H PRN MT THROAT PAIN Last administered on 09/01/18 16:32; Admin Dose 1 LOZENGE; Start 08/21/18 at 11:00 Pantoprazole (Protonix Tab) 40 mg BID PO Last administered on 09/02/18 08:09; Admin Dose 40 MG; Start 08/25/18 at 09:00 Diphenhydramine HCl (Benadryl) 50 mg Q6H PRN IV ITCHING Last administered on 09/02/18 08:11; Admin Dose 50 MG; Start 08/26/18 at 21:00 Dextrose 1,000 ml @ 50 mls/hr Q20H IV Last administered on 09/01/18 19:50; Admin Dose 50 MLS/HR; Start 08/31/18 at 08:00 Acetaminophen (Tylenol Tab) 500 mg Q6H PRN PO MILD PAIN(1-3)OR ELEVATED TEMP; Start 09/01/18 at 18:30 Lidocaine (Xylocaine (Viscous)) 15 ml QID PRN PO Pain in the mouth; Start 09/02/18 at 10:30 SUZANNE STEVENSON NP Sep 02, 2018 10:42
--- NOTE | 2018-09-02 11:58 | CONS ---
Assessment/Plan Assessment/Plan Hospital Course (Demo Recall) sepsis, bloodstream infection - H/o "bacteremia due to enterococci" according to progress notes at [facility], but the actual microbiology report indicated blood culture was positive for ESBL+E. coli - h/o fungemia due to kaley glabrata, sensitive to fluconazole and to micaf ungin/caspofungin at [facility] - possible early SIRS vs sepsis pulm - persistent hemoptysis of unknown etiology: Pt reports negative PPD last month at [facility]. - according to the microbiology report at [facility], Pt had ESBL+E. coli in her respiratory culture. Sputum cultures for AFB and fungi were negative at 8 weeks and at 4 weeks respectively at [facility] - Pt had negative bronchoscopy in 05/2018 at [facility], another at [facility] in 2017, and on 08/25/2018 at [facility] (no e/o bronchial airway bleeding according to Dr. Bello - Numerous tiny lung nodules, increased in number from the chest CT dated May 22, 2018, with largest measuring 0.3 cm in the left apex - so far: aspergillus antibody not detected, HIV negative, coccidioidomycosis serology negative GI - Lucero-colitis per CT - S/p sigmoidoscopy with biopsy 08/17/2018; path showed no e/o colitis or malignancy from transverse colon and rectum biopsies - S/p bloody diarrhea d/t Giardia; Pt took metronidazole for Giardia (08/14/2018- 08/21/2018) in 07/2018. - H/o C diff toxin negative PCR positive status at [facility]. Took a course of Fidaxomyxin x 10 days. C. diff was negative on 08/14/2018 at [facility] - H/o cholecystectomy heme/oncology - S/p CT guided bone marrow aspiration and biopsy 08/20/2018 - Microcytic anemia requiring PRBC d/t acute blood loss - H/o BUE and RLE DVT, s/p IVC filter in January 2018 - H/o Hodgkin lymphoma diagnosed in 2006 - H/o thyroid CA diagnosed in 2005, s/p resection, chemo and XRT - IVC filter placement - +Family hx of cancer (father of stomach CA, mother of lymphoma, paternal uncle had breast CA and 12 yo daughter has h/o brain tumor s/p surgery and resulting blindness) , renal - h/o UTI due to ESBL+E. coli other conditions - a painful ulcer at frenulum, recurrent. According to Pt, topical steroid would worsen the pain. HIV negative, RPR non reactive, herpes 1 and 2 by PCR not detected; s/p trial of PO valacyclovir (08/27/2018-09/01/2018) - s/p bilateral conjunctivitis - improved s/p Cipro eye drops (08/18/18-08/23/18) - Hypothyroidism - HLD - Hypokalemia - OA - depression/anxiety - H/o x2 - Allergy to PCN and vancomycin (reaction unknown) Recommendations: - ordered repeat bcxs - Daptomycin (clarify allergy to vanco) - fu final results lucero cultures, lactic acid, procalcitonin, CXR - trend fever curve - pending results: sputum fungal culture (in process. growing kaley so far), 1,4-rxvx-m-glucan - s/p PO levofloxacin (08/24/2018-08/28/2018) for probable UTI Consultation Date/Type/Reason Admit Date/Time Aug 13, 2018 at 17:22 Initial Consult Date 08/19/18 Requesting Provider: SHAQUILLE HARRIS Date/Time of Note DATE: 09/02/18 TIME: 11:53 Exam/Review of Systems Exam Vitals Vital Signs Date Temp Pulse Resp B/P (MAP) Pulse Ox O2 O2 Flow FiO2 Time Delivery Rate 09/02/18 98.4 78 20 104/53 97 Room Air 07:54 (70) Intake and Output 09/01/18 09/01/18 09/02/18 1515:00 23:00 07:00 IntakeIntake Total 700 ml 850 ml 1050 ml OutputOutput Total 150 ml 200 ml BalanceBalance 700 ml 700 ml 850 ml Constitutional: alert, oriented, well developed Psych: no complaints, nl mood/affect ENMT: nl external ears & nose, nl lips & teeth, nl nasal mucosa & septum Respiratory: clear to auscultation, normal air movement Results Result Diagram: 09/02/18 0608 09/02/18 0608 Results 24hrs Laboratory Tests Test 09/01/18 11:58 09/01/18 16:57 09/02/18 06:08 09/02/18 07:17 Lab Scanned REFERENCE LAB BLOOD TRANSFUSIO Report N Lactic Acid 1.1 Level White Blood 4.5 #L Count Red Blood Count 3.68 L Hemoglobin 9.2 L Hematocrit 28.4 L Mean Corpuscular 77.2 L Volume Mean Corpuscular 25.0 L Hemoglobin Mean Corpuscular 32.4 Hemoglobin Anamika nt Red Cell 18.7 H Distribution Width Platelet Count 167 Mean Platelet 10.3 Volume Immature 0.400 Granulocytes % Neutrophils % 73.5 Lymphocytes % 13.9 L Monocytes % 9.5 Eosinophils % 2.0 Basophils % 0.7 Nucleated Red 0.0 Blood Cells % Immature 0.020 Granulocytes # Neutrophils # 3.3 Lymphocytes # 0.6 L Monocytes # 0.4 Eosinophils # 0.1 Basophils # 0.0 Nucleated Red 0.0 Blood Cells # Sodium Level 140 Potassium Level 3.0 L Chloride Level 103 Carbon Dioxide 28 Level Anion Gap 9 Blood Urea 10 Nitrogen Creatinine 0.42 L Est Glomerular > 60 Filtrat Rate mL/min Glucose Level 130 # Calcium Level 8.8 Phosphorus Level 5.0 H Magnesium Level 1.9 Medications Medication Current Medications IV Flush (NS 3 ml) 3 ml PER PROTOCOL IV ; Start 08/13/18 at 20:00 Ondansetron HCl (Zofran Inj) 4 mg Q6H PRN IV NAUSEA AND/OR VOMITING Last administered on 08/29/18 09:30; Admin Dose 4 MG; Start 08/13/18 at 20:00 Duloxetine HCl (Cymbalta) 60 mg DAILY PO Last administered on 09/02/18 08:09; Admin Dose 60 MG; Start 08/14/18 at 09:00 Levothyroxine Sodium (Synthroid) 50 mcg BEFORE BREAKFAST PO Last administered on 09/02/18 07:09; Admin Dose 50 MCG; Start 08/15/18 at 07:00 Alteplase, Recombinant (Cathflo (Activase)) 2 mg MAY REPEAT X1 PRN CATHETER IF CATHETER REMAINS OCCULUDED Last administered on 08/26/18 23:34; Admin Dose 2 MG; Start 08/15/18 at 06:00 Cholecalciferol (Vitamin D) 2,000 unit DAILY PO Last administered on 09/02/18 08:09; Admin Dose 2,000 UNIT; Start 08/17/18 at 09:00 Zinc Sulfate (Zinc Sulfate) 220 mg DAILY PO Last administered on 09/02/18 08:09; Admin Dose 220 MG; Start 08/17/18 at 09:00 Eye Lubricant (Artificial Tears Oph) 1 drop Q6H PRN BOTH EYES DRY EYES Last administered on 08/19/18 00:00; Admin Dose 1 DROP; Start 08/16/18 at 23:30 Methylnaltrexone [place] (Relistor) 12 mg Q48H SC Last administered on 09/02/18 08:08; Admin Dose 12 MG; Start 08/17/18 at 09:30 Miscellaneous Information 1 ea NOTE XX ; Start 08/17/18 at 10:30 Glucose (Glutose) 15 gm Q15M PRN PO DECREASED GLUCOSE; Start 08/17/18 at 10:30 Glucose (Glutose) 22.5 gm Q15M PRN PO DECREASED GLUCOSE; Start 08/17/18 at 10:30 Dextrose (D50w Syringe) 25 ml Q15M PRN IV DECREASED GLUCOSE; Start 08/17/18 at 10:30 Dextrose (D50w Syringe) 50 ml Q15M PRN IV DECREASED GLUCOSE; Start 08/17/18 at 10:30 Glucagon (Glucagen) 1 mg Q15M PRN IM DECREASED GLUCOSE; Start 08/17/18 at 10:30 Glucose (Glutose) 15 gm Q15M PRN BUCCAL DECREASED GLUCOSE; Start 08/17/18 at 10:30 Hydromorphone HCl (Dilaudid) 2 mg Q3 PRN IV SEVERE PAIN LEVEL 7-10 Last administered on 09/02/18 11:05; Admin Dose 2 MG; Start 08/17/18 at 14:30 Lorazepam (Ativan) 1 mg Q6H PRN IV Anxiety Last administered on 09/02/18 09:54; Admin Dose 1 MG; Start 08/18/18 at 14:30 Zolpidem Tartrate (Ambien) 10 mg QHS PRN PO INSOMNIA Last administered on 09/01/18 21:30; Admin Dose 10 MG; Start 08/20/18 at 11:30 Phenol (Cepastat Lozenge) 1 lozenge Q1H PRN MT THROAT PAIN Last administered on 09/01/18 16:32; Admin Dose 1 LOZENGE; Start 08/21/18 at 11:00 Pantoprazole (Protonix Tab) 40 mg BID PO Last administered on 09/02/18at 08:09; Admin Dose 40 MG; Start 08/25/18 at 09:00 Diphenhydramine HCl (Benadryl) 50 mg Q6H PRN IV ITCHING Last administered on 09/02/18at 08:11; Admin Dose 50 MG; Start 08/26/18 at 21:00 Dextrose 1,000 ml @ 50 mls/hr Q20H IV Last administered on 09/01/18at 19:50; Admin Dose 50 MLS/HR; Start 08/31/18 at 08:00 Acetaminophen (Tylenol Tab) 500 mg Q6H PRN PO MILD PAIN(1-3)OR ELEVATED TEMP; Start 09/01/18 at 18:30 Lidocaine (Xylocaine (Viscous)) 15 ml QID PRN PO Pain in the mouth; Start 09/02/18 at 10:30 Cefazolin Sodium/ Dextrose 50 ml @ 100 mls/hr Q8 IVPB ; Start 09/02/18 at 14:00 Potassium Chloride 100 ml @ 25 mls/hr Q2H IVPB ; Start 09/02/18 at 12:00; Stop 09/02/18 at 15:59 AUREA MEDINA MD Sep 02, 2018 11:58
--- NOTE | 2018-09-02 12:06 | CONS ---
Assessment/Plan Assessment/Plan Assessment/Plan (Daily) h/o Lymphoma -thus far there are no lesions that can be biopsied and it does not appear she has active cancer #Anemia-hgb 7.1 today- will give 2 units of PRBC - -Hgb Electrophoresis - confirms B- thalassemia trait with Anemia -pt has had microcytic anemia requiring transfusions for years -will order a bone marrow bx at this time- pending -anemia panel-anemia positive # Hemoptysis VS Hematemesis - GI follows - 08/31/2018- S/P esophagogastroduodenoscopy- showed no evidence of any gastrointestinal bleed. #Hemoptysis, recurrent. -s/p unremarkable bronchoscopy at [facility] -s/p unremarkable flexible laryngoscopy 02/05/17 at [facility] -CT Chest pulmonary nodules are noted but are too small to biopsy -ID workup pending for pulmonary nodules- Numerous tiny lung nodules, increased in number from the chest CT dated May 22, 2018, with largest measuring 0.3 cm in the left apex - 02/2018- negative TB workup -08/21/18-CT Chest Angio- no new changes. will do Follow-up CT in X 3-4 months to insure stability as recommended - 08/24/18- Repeat bronchoscopy - wnl - Given her platelets and coag panel are wnl; Bronchoscopy is wnl #pancolitis. -Colonoscopy on 08/17/2018 showed patchy colitis. bx was negative -Stool positive for Giardia- pt on vancomycin and flagyl Patient seen in collaboration with Dr Brown. Dw Staff Consultation Date/Type/Reason Admit Date/Time Aug 13, 2018 at 17:22 Initial Consult Date 08/19/18 Type of Consult ONCOLOGY Reason for Consultation Hx Lymphoma Requesting Provider: SHAQUILLE HARRIS Date/Time of Note DATE: 09/02/18 TIME: 12:06 24 HR Interval Summary Free Text/Dictation c/o generalized weakness coughs blood on and off -hgb 7.1 today- will give 2 units of PRBC no new events reported last night Detailed Summary Eyes: no complaints ENT: no complaints Respiratory: cough (cough w/ blood), shortness of breath Cardiovascular: no complaints Gastrointestinal: nausea Genitourinary: no complaints Skin: no complaints Neurologic: no complaints Endocrine: no complaints Psychological: no complaints Exam/Review of Systems Exam Vitals Vital Signs Date Temp Pulse Resp B/P (MAP) Pulse Ox O2 O2 Flow FiO2 Time Delivery Rate 09/02/18 98.4 78 20 104/53 97 Room Air 07:54 (70) Intake and Output 09/01/18 09/01/18 09/02/18 1414:59 22:59 06:59 IntakeIntake Total 700 ml 850 ml 1050 ml OutputOutput Total 150 ml 200 ml BalanceBalance 700 ml 700 ml 850 ml Results Result Diagram: 09/02/18 0608 09/02/18 0608 Results 24hrs Laboratory Tests Test 09/01/18 16:57 09/02/18 06:08 09/02/18 07:17 Lactic Acid Level 1.1 White Blood Count 4.5 #L Red Blood Count 3.68 L Hemoglobin 9.2 L Hematocrit 28.4 L Mean Corpuscular Volume 77.2 L Mean Corpuscular Hemoglobin 25.0 L Mean Corpuscular 32.4 Hemoglobin Concent Red Cell Distribution Width 18.7 H Platelet Count 167 Mean Platelet Volume 10.3 Immature Granulocytes % 0.400 Neutrophils % 73.5 Lymphocytes % 13.9 L Monocytes % 9.5 Eosinophils % 2.0 Basophils % 0.7 Nucleated Red Blood Cells % 0.0 Immature Granulocytes # 0.020 Neutrophils # 3.3 Lymphocytes # 0.6 L Monocytes # 0.4 Eosinophils # 0.1 Basophils # 0.0 Nucleated Red Blood Cells # 0.0 Sodium Level 140 Potassium Level 3.0 L Chloride Level 103 Carbon Dioxide Level 28 Anion Gap 9 Blood Urea Nitrogen 10 Creatinine 0.42 L Est Glomerular Filtrat > 60 Rate mL/min Glucose Level 130 # Calcium Level 8.8 Phosphorus Level 5.0 H Magnesium Level 1.9 Lab Scanned Report BLOOD TRANSFUSION Medications Medication Current Medications IV Flush (NS 3 ml) 3 ml PER PROTOCOL IV ; Start 08/13/18 at 20:00 Ondansetron HCl (Zofran Inj) 4 mg Q6H PRN IV NAUSEA AND/OR VOMITING Last administered on 08/29/18at 09:30; Admin Dose 4 MG; Start 08/13/18 at 20:00 Duloxetine HCl (Cymbalta) 60 mg DAILY PO Last administered on 09/02/18at 08:09; Admin Dose 60 MG; Start 08/14/18 at 09:00 Levothyroxine Sodium (Synthroid) 50 mcg BEFORE BREAKFAST PO Last administered on 09/02/18 07:09; Admin Dose 50 MCG; Start 08/15/18 at 07:00 Alteplase, Recombinant (Cathflo (Activase)) 2 mg MAY REPEAT X1 PRN CATHETER IF CATHETER REMAINS OCCULUDED Last administered on 08/26/18 23:34; Admin Dose 2 MG; Start 08/15/18 at 06:00 Cholecalciferol (Vitamin D) 2,000 unit DAILY PO Last administered on 09/02/18 08:09; Admin Dose 2,000 UNIT; Start 08/17/18 at 09:00 Zinc Sulfate (Zinc Sulfate) 220 mg DAILY PO Last administered on 09/02/18 08:09; Admin Dose 220 MG; Start 08/17/18 at 09:00 Eye Lubricant (Artificial Tears Oph) 1 drop Q6H PRN BOTH EYES DRY EYES Last administered on 08/19/18 00:00; Admin Dose 1 DROP; Start 08/16/18 at 23:30 Methylnaltrexone [place] (Relistor) 12 mg Q48H SC Last administered on 09/02/18 08:08; Admin Dose 12 MG; Start 08/17/18 at 09:30 Miscellaneous Information 1 ea NOTE XX ; Start 08/17/18 at 10:30 Glucose (Glutose) 15 gm Q15M PRN PO DECREASED GLUCOSE; Start 08/17/18 at 10:30 Glucose (Glutose) 22.5 gm Q15M PRN PO DECREASED GLUCOSE; Start 08/17/18 at 10:30 Dextrose (D50w Syringe) 25 ml Q15M PRN IV DECREASED GLUCOSE; Start 08/17/18 at 10:30 Dextrose (D50w Syringe) 50 ml Q15M PRN IV DECREASED GLUCOSE; Start 08/17/18 at 10:30 Glucagon (Glucagen) 1 mg Q15M PRN IM DECREASED GLUCOSE; Start 08/17/18 at 10:30 Glucose (Glutose) 15 gm Q15M PRN BUCCAL DECREASED GLUCOSE; Start 08/17/18 at 10:30 Hydromorphone HCl (Dilaudid) 2 mg Q3 PRN IV SEVERE PAIN LEVEL 7-10 Last administered on 09/02/18 11:05; Admin Dose 2 MG; Start 08/17/18 at 14:30 Lorazepam (Ativan) 1 mg Q6H PRN IV Anxiety Last administered on 09/02/18 09:54; Admin Dose 1 MG; Start 08/18/18 at 14:30 Zolpidem Tartrate (Ambien) 10 mg QHS PRN PO INSOMNIA Last administered on 09/01/18 21:30; Admin Dose 10 MG; Start 08/20/18 at 11:30 Phenol (Cepastat Lozenge) 1 lozenge Q1H PRN MT THROAT PAIN Last administered on 09/01/18 16:32; Admin Dose 1 LOZENGE; Start 08/21/18 at 11:00 Pantoprazole (Protonix Tab) 40 mg BID PO Last administered on 09/02/18 08:09; Admin Dose 40 MG; Start 08/25/18 at 09:00 Diphenhydramine HCl (Benadryl) 50 mg Q6H PRN IV ITCHING Last administered on 09/02/18 08:11; Admin Dose 50 MG; Start 08/26/18 at 21:00 Dextrose 1,000 ml @ 50 mls/hr Q20H IV Last administered on 09/01/18 19:50; Admin Dose 50 MLS/HR; Start 08/31/18 at 08:00 Acetaminophen (Tylenol Tab) 500 mg Q6H PRN PO MILD PAIN(1-3)OR ELEVATED TEMP; Start 09/01/18 at 18:30 Lidocaine (Xylocaine (Viscous)) 15 ml QID PRN PO Pain in the mouth; Start 09/02/18 at 10:30 Cefazolin Sodium/ Dextrose 50 ml @ 100 mls/hr Q8 IVPB ; Start 09/02/18 at 14:00 Potassium Chloride 100 ml @ 25 mls/hr Q2H IVPB ; Start 09/02/18 at 12:00; Stop 09/02/18 at 15:59 SULEMA WRIGHT Sep 02, 2018 12:06
[2018-09-02] MEDS: POTASSIUM CHLORIDE 100 ML IVPB SCH ×2 (12:41→14:00)
[2018-09-02] MEDS: DEXTROSE 5% 1,000 ML IV SCH (12:44)
--- NOTE | 2018-09-02 12:45 | CONS ---
Assessment/Plan Assessment/Plan Assessment/Plan (Daily) h/o Lymphoma -thus far there are no lesions that can be biopsied and it does not appear she has active cancer #Anemia-hgb 9.2 today- sp 2 units of PRBC -Hgb Electrophoresis - confirms B- thalassemia trait with Anemia -pt has had microcytic anemia requiring transfusions for years -will order a bone marrow bx at this time- pending -anemia panel-anemia positive # Hemoptysis VS Hematemesis - GI follows - plan for EGD tomorrow #Hemoptysis, recurrent. -s/p unremarkable bronchoscopy at [facility] -s/p unremarkable flexible laryngoscopy 02/05/17 at [facility] -CT Chest pulmonary nodules are noted but are too small to biopsy -ID workup pending for pulmonary nodules- Numerous tiny lung nodules, increased in number from the chest CT dated May 22, 2018, with largest measuring 0.3 cm in the left apex - 02/2018- negative TB workup -08/21/18-CT Chest Angio- no new changes. will do Follow-up CT in X 3-4 months to insure stability as recommended - 08/24/18- Repeat bronchoscopy - wnl - Given her platelets and coag panel are wnl; Bronchoscopy is wnl #pancolitis. -Colonoscopy on 08/17/2018 showed patchy colitis. bx was negative -Stool positive for Giardia- pt on vancomycin and flagyl Patient seen in collaboration with Dr Brown. Dw Staff Consultation Date/Type/Reason Admit Date/Time Aug 13, 2018 at 17:22 Initial Consult Date 08/19/18 Type of Consult ONCOLOGY Requesting Provider: SHAQUILLE HARRIS Date/Time of Note DATE: 09/02/18 TIME: 12:41 24 HR Interval Summary Free Text/Dictation patient stated - c/o coughing blood but better than yesterday no new events reported last night Detailed Summary Eyes: no complaints ENT: no complaints Respiratory: cough (with blood) Cardiovascular: no complaints Gastrointestinal: pain Genitourinary: no complaints Musculoskeletal: no complaints Skin: no complaints Neurologic: no complaints Endocrine: no complaints Lymphatic: no complaints Psychological: nl mood/affect Immunologic: no complaints Exam/Review of Systems Exam Vitals Vital Signs Date Temp Pulse Resp B/P (MAP) Pulse Ox O2 O2 Flow FiO2 Time Delivery Rate 09/02/18 98.4 78 20 104/53 97 Room Air 07:54 (70) Intake and Output 09/01/18 09/01/18 09/02/18 1515:00 23:00 07:00 IntakeIntake Total 700 ml 850 ml 1050 ml OutputOutput Total 150 ml 200 ml BalanceBalance 700 ml 700 ml 850 ml Constitutional: alert, well developed Psych: nl mood/affect Eyes: EOMI, nl lids ENMT: nl external ears & nose Respiratory: diminished breath sounds Cardiovascular: nl pulses, other (s1s2) Gastrointestinal: soft, non-tender Musculoskeletal: nl extremities to inspection Extremities: normal pulses Neurological: nl mental status, nl speech Skin: nl turgor Lymph: nontender Results Result Diagram: 09/02/18 0608 09/02/18 0608 Results 24hrs Laboratory Tests Test 09/01/18 16:57 09/02/18 06:08 09/02/18 07:17 Lactic Acid Level 1.1 White Blood Count 4.5 #L Red Blood Count 3.68 L Hemoglobin 9.2 L Hematocrit 28.4 L Mean Corpuscular Volume 77.2 L Mean Corpuscular Hemoglobin 25.0 L Mean Corpuscular 32.4 Hemoglobin Concent Red Cell Distribution Width 18.7 H Platelet Count 167 Mean Platelet Volume 10.3 Immature Granulocytes % 0.400 Neutrophils % 73.5 Lymphocytes % 13.9 L Monocytes % 9.5 Eosinophils % 2.0 Basophils % 0.7 Nucleated Red Blood Cells % 0.0 Immature Granulocytes # 0.020 Neutrophils # 3.3 Lymphocytes # 0.6 L Monocytes # 0.4 Eosinophils # 0.1 Basophils # 0.0 Nucleated Red Blood Cells # 0.0 Sodium Level 140 Potassium Level 3.0 L Chloride Level 103 Carbon Dioxide Level 28 Anion Gap 9 Blood Urea Nitrogen 10 Creatinine 0.42 L Est Glomerular Filtrat > 60 Rate mL/min Glucose Level 130 # Calcium Level 8.8 Phosphorus Level 5.0 H Magnesium Level 1.9 Lab Scanned Report BLOOD TRANSFUSION Medications Medication Current Medications IV Flush (NS 3 ml) 3 ml PER PROTOCOL IV ; Start 08/13/18 at 20:00 Ondansetron HCl (Zofran Inj) 4 mg Q6H PRN IV NAUSEA AND/OR VOMITING Last administered on 08/29/18at 09:30; Admin Dose 4 MG; Start 08/13/18 at 20:00 Duloxetine HCl (Cymbalta) 60 mg DAILY PO Last administered on 09/02/18 08:09; Admin Dose 60 MG; Start 08/14/18 at 09:00 Levothyroxine Sodium (Synthroid) 50 mcg BEFORE BREAKFAST PO Last administered on 09/02/18 07:09; Admin Dose 50 MCG; Start 08/15/18 at 07:00 Alteplase, Recombinant (Cathflo (Activase)) 2 mg MAY REPEAT X1 PRN CATHETER IF CATHETER REMAINS OCCULUDED Last administered on 08/26/18at 23:34; Admin Dose 2 MG; Start 08/15/18 at 06:00 Cholecalciferol (Vitamin D) 2,000 unit DAILY PO Last administered on 09/02/18 08:09; Admin Dose 2,000 UNIT; Start 08/17/18 at 09:00 Zinc Sulfate (Zinc Sulfate) 220 mg DAILY PO Last administered on 09/02/18 08:09; Admin Dose 220 MG; Start 08/17/18 at 09:00 Eye Lubricant (Artificial Tears Oph) 1 drop Q6H PRN BOTH EYES DRY EYES Last administered on 08/19/18at 00:00; Admin Dose 1 DROP; Start 08/16/18 at 23:30 Methylnaltrexone [place] (Relistor) 12 mg Q48H SC Last administered on 09/02/18 08:08; Admin Dose 12 MG; Start 08/17/18 at 09:30 Miscellaneous Information 1 ea NOTE XX ; Start 08/17/18 at 10:30 Glucose (Glutose) 15 gm Q15M PRN PO DECREASED GLUCOSE; Start 08/17/18 at 10:30 Glucose (Glutose) 22.5 gm Q15M PRN PO DECREASED GLUCOSE; Start 08/17/18 at 10:30 Dextrose (D50w Syringe) 25 ml Q15M PRN IV DECREASED GLUCOSE; Start 08/17/18 at 10:30 Dextrose (D50w Syringe) 50 ml Q15M PRN IV DECREASED GLUCOSE; Start 08/17/18 at 10:30 Glucagon (Glucagen) 1 mg Q15M PRN IM DECREASED GLUCOSE; Start 08/17/18 at 10:30 Glucose (Glutose) 15 gm Q15M PRN BUCCAL DECREASED GLUCOSE; Start 08/17/18 at 10:30 Hydromorphone HCl (Dilaudid) 2 mg Q3 PRN IV SEVERE PAIN LEVEL 7-10 Last administered on 09/02/18 11:05; Admin Dose 2 MG; Start 08/17/18 at 14:30 Lorazepam (Ativan) 1 mg Q6H PRN IV Anxiety Last administered on 09/02/18 09:54; Admin Dose 1 MG; Start 08/18/18 at 14:30 Zolpidem Tartrate (Ambien) 10 mg QHS PRN PO INSOMNIA Last administered on 09/01/18 21:30; Admin Dose 10 MG; Start 08/20/18 at 11:30 Phenol (Cepastat Lozenge) 1 lozenge Q1H PRN MT THROAT PAIN Last administered on 09/01/18 16:32; Admin Dose 1 LOZENGE; Start 08/21/18 at 11:00 Pantoprazole (Protonix Tab) 40 mg BID PO Last administered on 09/02/18 08:09; Admin Dose 40 MG; Start 08/25/18 at 09:00 Diphenhydramine HCl (Benadryl) 50 mg Q6H PRN IV ITCHING Last administered on 09/02/18 08:11; Admin Dose 50 MG; Start 08/26/18 at 21:00 Dextrose 1,000 ml @ 50 mls/hr Q20H IV Last administered on 09/01/18 19:50; Admin Dose 50 MLS/HR; Start 08/31/18 at 08:00 Acetaminophen (Tylenol Tab) 500 mg Q6H PRN PO MILD PAIN(1-3)OR ELEVATED TEMP; Start 09/01/18 at 18:30 Lidocaine (Xylocaine (Viscous)) 15 ml QID PRN PO Pain in the mouth; Start 09/02/18 at 10:30 Cefazolin Sodium/ Dextrose 50 ml @ 100 mls/hr Q8 IVPB ; Start 09/02/18 at 14:00 Potassium Chloride 100 ml @ 25 mls/hr Q2H IVPB ; Start 09/02/18 at 12:00; Stop 09/02/18 at 15:59 SULEMA WRIGHT Sep 02, 2018 12:45
[2018-09-02] MEDS ORDERED: CEFAZOLIN 2 GM/50 ML (PMX) 50 ML IVPB SCH (14:00)
[2018-09-02 14:30] VITALS: BP 102/52; PULSE 80; RESP 18
[2018-09-02] MEDS ORDERED: DAPTOMYCIN 325 MG in SOD CHLORIDE 0.9% 100 ML IVPB SCH (16:00)
[2018-09-02 21:12] VITALS: BP 114/56; PULSE 81; RESP 20
[2018-09-03] MEDS: ZOLPIDEM 5 MG TAB PO PRN ×2 (00:07→23:12)
[2018-09-03] MEDS: DIPHENHYDRAMINE 50 MG INJ IV PRN ×4 (02:06→20:49)
[2018-09-03] MEDS: HYDROmorphONE 2 MG/ML SYG IV PRN ×8 (02:07→23:49)
[2018-09-03 02:23] VITALS: BP 119/66; PULSE 77; RESP 18
[2018-09-03] MEDS: LORAZEPAM 2 MG INJ IV PRN ×3 (03:19→21:51)
[2018-09-03] MEDS: CEPASTAT LOZENGE MT PRN (06:31)
[2018-09-03] MEDS: LEVOTHYROXINE 50 MCG TAB PO SCH (06:31)
[2018-09-03] MEDS: DULOXETINE 30 MG CAP DR PO SCH (08:22)
[2018-09-03] MEDS: PANTOPRAZOLE (EC) 40 MG TAB PO SCH ×2 (08:23→21:35)
[2018-09-03] MEDS: ZINC SULFATE 220 MG CAP PO SCH (08:23)
[2018-09-03] MEDS: CHOLECALCIFEROL 2,000 UNIT CAP PO SCH (08:23)
[2018-09-03 08:50] VITALS: BP 107/67; PULSE 82; RESP 20
--- NOTE | 2018-09-03 09:41 | PN ---
Date/Time of Note Date/Time of Note DATE: 09/03/18 TIME: 09:38 Assessment/Plan VTE Prophylaxis Risk score (from Ns)>0 risk: 9 SCD applied (from Ns): No SCD contraindicated: other Pharmacological prophylaxis: NA/contraindicated Pharm contraindication: bleeding Lines/Catheters IV Catheter Type (from [facility]): PICC Line Central line still needed: Yes Urinary Cath still in place: No Assessment/Plan Hospital Course SUBJECTIVE: Denies any abdominal pain or diarrhea. Reports hemoptysis. OBJECTIVE: Physical Exam General: Adequately build 52 year-old female lying in bed in no apparent distress. HEENT: Normocephalic, atraumatic. Eyes: Anicteric sclerae, conjunctivae clear. ENT: Nasal septum midline, oral mucosa moist. Ulcer in the frenulum linguae. Neck supple, no JVD noticed. Respiratory: Bilaterally clear breath sounds. No use of accessory muscles of respiration. No adventitious breath sounds. Cardiovascular: S1, S2 heard. No murmurs or gallops. Abdomen: Soft, nondistended, nontender. Bowel sounds positive in all 4 quadrants. Genitourinary: Deferred. Extremities: No cyanosis, no clubbing, no edema. Peripheral pulses palpable. Neurologic: Cranial nerves II through XII grossly intact. The patient is awake, alert, and oriented. Skin: Normal skin turgor. No skin rashes. Labs & Vitals per chart ASSESSMENT & PLAN This is a 52-year-old female with comorbidities including reported (non documented) Hodgkin's lymphoma of the lung, history of thyroid cancer status post thyroid surgery,chronic pain syndrome, and.history of PE status post IVC fi lter placement who came to the emergency room with chief complaint of abdominal pain and bloody stools. The patient's CT scan of the abdomen and pelvis was showing colitis involving the ascending, transverse, descending colon. The patient also had underlying leukocytosis and bandemia. Therefore, the patient was admitted to inpatient setting for further treatment and evaluation. 1. Acute pancolitis. -Stool studies showing Giardia. S/P Flagyl (last day 08/21/2018) -Being followed by gastroenterology and ID. -Colonoscopy on 08/17/2018 showed patchy colitis. 2. Fevers with Gram positive bacteremia on 09/01/2018. Gram negative bacteremia on 09/03/2018. -The patient is allergic to vancomycin. -Started the patient on daptomycin on 09/02/2018. -Start the patient on cefepime. 3. 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 -No evidence or documented history of Hodgkin's lymphoma as per oncology. 4. History of PE. -Status post IVC filter placement. 5. Anemia. -Microcytic and hypochromic. -Monitor H&H closely. -Stool for OB x1 positive. 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 6. Chronic pain syndrome. -Pain management as per pain team. 7. Hyperglycemia. -Etiology unclear. -Hemoglobin A1c within normal limits although this could be the glycosylated hemoglobin from the transfused (donor) blood. -The patient was told by her primary care provider previously that she is borderline diabetic. -Started the patient on sliding scale insulin on 08/17/2018. -Stopped the patients insulin SSI on 08/21/2018 once the hyperglycemia was resolved. 8. Hemoptysis on 08/18/2018. -Being followed by Pulmonology. -S/P bronchoscopy on 08/24/2018 that was unremarkable. -S/P esophagogastroduodenoscopy on 08/31/2018 that showed no evidence of any gastrointestinal bleed. -Status post ENT evaluation along with laryngoscopy on 09/01/2018 with no evidence of any bleeding site history of hemoptysis. 9. Ulcer of the frenulum linguae. -Continue management as per ID. 10. Fluids, electrolytes, and nutrition. -Soft diet. 11. DVT prophylaxis -Bilateral SCDs. 12. Plan. -Continue pain control. -Continue antimicrobials. -Add Cefepime. The patient was seen in collaboration with Dr. Montes. Result Diagram: 09/03/1851109/03/1812 Results 24hrs Laboratory Tests Test 09/02/18 10:30 09/03/18 05:12 Gastric Fluid Occult Blood POSITIVE White Blood Count 3.2 #L Red Blood Count 3.49 L Hemoglobin 8.7 L Hematocrit 27.2 L Mean Corpuscular Volume 77.9 L Mean Corpuscular Hemoglobin 24.9 L Mean Corpuscular Hemoglobin Concent 32.0 Red Cell Distribution Width 19.1 H Platelet Count 185 Mean Platelet Volume 11.0 H Immature Granulocytes % 0.600 H Neutrophils % 42.1 Lymphocytes % 37.3 Monocytes % 15.4 H Eosinophils % 4.0 Basophils % 0.6 Nucleated Red Blood Cells % 0.0 Immature Granulocytes # 0.020 Neutrophils # 1.4 L Lymphocytes # 1.2 Monocytes # 0.5 Eosinophils # 0.1 Basophils # 0.0 Nucleated Red Blood Cells # 0.0 Sodium Level 140 Potassium Level 3.8 Chloride Level 103 Carbon Dioxide Level 31 Anion Gap 6 Blood Urea Nitrogen 10 Creatinine 0.43 L Est Glomerular Filtrat Rate mL/min > 60 Glucose Level 90 # Calcium Level 9.2 Phosphorus Level 4.9 Magnesium Level 2.1 Creatine Kinase < 20 L Exam/Review of Systems Exam Vitals Vital Signs Date Temp Pulse Resp B/P (MAP) Pulse Ox O2 O2 Flow FiO2 Time Delivery Rate 09/03/18 98.2 82 20 107/67 100 Room Air 08:50 (80) Intake and Output 09/02/18 09/02/18 09/03/18 1414:59 22:59 06:59 IntakeIntake Total 560 ml 200 ml 1280 ml OutputOutput Total 150 ml BalanceBalance 560 ml 200 ml 1130 ml Results Results 24hrs Laboratory Tests Test 09/02/18 10:30 09/03/18 05:12 Gastric Fluid Occult Blood POSITIVE White Blood Count 3.2 #L Red Blood Count 3.49 L Hemoglobin 8.7 L Hematocrit 27.2 L Mean Corpuscular Volume 77.9 L Mean Corpuscular Hemoglobin 24.9 L Mean Corpuscular Hemoglobin Concent 32.0 Red Cell Distribution Width 19.1 H Platelet Count 185 Mean Platelet Volume 11.0 H Immature Granulocytes % 0.600 H Neutrophils % 42.1 Lymphocytes % 37.3 Monocytes % 15.4 H Eosinophils % 4.0 Basophils % 0.6 Nucleated Red Blood Cells % 0.0 Immature Granulocytes # 0.020 Neutrophils # 1.4 L Lymphocytes # 1.2 Monocytes # 0.5 Eosinophils # 0.1 Basophils # 0.0 Nucleated Red Blood Cells # 0.0 Sodium Level 140 Potassium Level 3.8 Chloride Level 103 Carbon Dioxide Level 31 Anion Gap 6 Blood Urea Nitrogen 10 Creatinine 0.43 L Est Glomerular Filtrat Rate mL/min > 60 Glucose Level 90 # Calcium Level 9.2 Phosphorus Level 4.9 Magnesium Level 2.1 Creatine Kinase < 20 L Medications Medication Current Medications IV Flush (NS 3 ml) 3 ml PER PROTOCOL IV ; Start 1/18/19 at 20:00 Ondansetron HCl (Zofran Inj) 4 mg Q6H PRN IV NAUSEA AND/OR VOMITING Last administered on 08/29/18 09:30; Admin Dose 4 MG; Start 08/13/18 at 20:00 Duloxetine HCl (Cymbalta) 60 mg DAILY PO Last administered on 09/03/18 08:22; Admin Dose 60 MG; Start 08/14/18 at 09:00 Levothyroxine Sodium (Synthroid) 50 mcg BEFORE BREAKFAST PO Last administered on 09/03/18 06:31; Admin Dose 50 MCG; Start 08/15/18 at 07:00 Alteplase, Recombinant (Cathflo (Activase)) 2 mg MAY REPEAT X1 PRN CATHETER IF CATHETER REMAINS OCCULUDED Last administered on 08/26/18 23:34; Admin Dose 2 MG; Start 08/15/18 at 06:00 Cholecalciferol (Vitamin D) 2,000 unit DAILY PO Last administered on 09/03/18 08:23; Admin Dose 2,000 UNIT; Start 08/17/18 at 09:00 Zinc Sulfate (Zinc Sulfate) 220 mg DAILY PO Last administered on 09/03/18 0 8:23; Admin Dose 220 MG; Start 08/17/18 at 09:00 Eye Lubricant (Artificial Tears Oph) 1 drop Q6H PRN BOTH EYES DRY EYES Last administered on 08/19/18 00:00; Admin Dose 1 DROP; Start 08/16/18 at 23:30 Methylnaltrexone Baker (Relistor) 12 mg Q48H SC Last administered on 09/02/18 08:08; Admin Dose 12 MG; Start 08/17/18 at 09:30 Miscellaneous Information 1 ea NOTE XX ; Start 08/17/18 at 10:30 Glucose (Glutose) 15 gm Q15M PRN PO DECREASED GLUCOSE; Start 08/17/18 at 10:30 Glucose (Glutose) 22.5 gm Q15M PRN PO DECREASED GLUCOSE; Start 08/17/18 at 10:30 Dextrose (D50w Syringe) 25 ml Q15M PRN IV DECREASED GLUCOSE; Start 08/17/18 at 10:30 Dextrose (D50w Syringe) 50 ml Q15M PRN IV DECREASED GLUCOSE; Start 08/17/18 at 10:30 Glucagon (Glucagen) 1 mg Q15M PRN IM DECREASED GLUCOSE; Start 08/17/18 at 10:30 Glucose (Glutose) 15 gm Q15M PRN BUCCAL DECREASED GLUCOSE; Start 08/17/18 at 10:30 Hydromorphone HCl (Dilaudid) 2 mg Q3 PRN IV SEVERE PAIN LEVEL 7-10 Last administered on 09/03/18 08:16; Admin Dose 2 MG; Start 08/17/18 at 14:30 Lorazepam (Ativan) 1 mg Q6H PRN IV Anxiety Last administered on 09/03/18 09:30; Admin Dose 1 MG; Start 08/18/18 at 14:30 Zolpidem Tartrate (Ambien) 10 mg QHS PRN PO INSOMNIA Last administered on 09/03/18 00:07; Admin Dose 10 MG; Start 08/20/18 at 11:30 Phenol (Cepastat Lozenge) 1 lozenge Q1H PRN MT THROAT PAIN Last administered on 09/03/18 06:31; Admin Dose 1 LOZENGE; Start 08/21/18 at 11:00 Pantoprazole (Protonix Tab) 40 mg BID PO Last administered on 09/03/18 08:23; Admin Dose 40 MG; Start 08/25/18 at 09:00 Diphenhydramine HCl (Benadryl) 50 mg Q6H PRN IV ITCHING Last administered on 09/03/18 08:15; Admin Dose 50 MG; Start 08/26/18 at 21:00 Dextrose 1,000 ml @ 50 mls/hr Q20H IV Last administered on 09/02/18 12:44; Admin Dose 50 MLS/HR; Start 08/31/18 at 08:00 Acetaminophen (Tylenol Tab) 500 mg Q6H PRN PO MILD PAIN(1-3)OR ELEVATED TEMP; Start 09/01/18 at 18:30 Lidocaine (Xylocaine (Viscous)) 15 ml QID PRN PO Pain in the mouth; Start 09/02 at 10:30 Daptomycin 325 mg/ Sodium Chloride 100 ml @ 200 mls/hr Q24H IVPB Last administered on 09/02/18 17:38; Admin Dose 200 MLS/HR; Start 09/02/18 at 16:00 SUZANNE STEVENSON NP Sep 03, 2018 09:41
[2018-09-03] MEDS: CEFEPIME 1GM/50 ML (PMX) 50 ML IVPB SCH ×2 (11:14→21:35)
[2018-09-03 14:30] VITALS: BP 110/64; PULSE 80; RESP 18
[2018-09-03] MEDS: DEXTROSE 5% 1,000 ML IV SCH (16:21)
--- NOTE | 2018-09-03 16:25 | CONS ---
Assessment/Plan Assessment/Plan Hospital Course (Demo Recall) sepsis, bloodstream infection - H/o "bacteremia due to enterococci" according to progress notes at [facility], but the actual microbiology report indicated blood culture was positive for ESBL+E. coli - h/o fungemia due to kaley glabrata, sensitive to fluconazole and to micaf ungin/caspofungin at [facility] - possible early SIRS vs sepsis pulm - persistent hemoptysis of unknown etiology: Pt reports negative PPD last month at [facility]. - according to the microbiology report at [facility], Pt had ESBL+E. coli in her respiratory culture. Sputum cultures for AFB and fungi were negative at 8 weeks and at 4 weeks respectively at [facility] - Pt had negative bronchoscopy in 05/2018 at [facility], another at [facility] in 2017, and on 08/25/2018 at [facility] (no e/o bronchial airway bleeding according to Dr. Bello - Numerous tiny lung nodules, increased in number from the chest CT dated May 22, 2018, with largest measuring 0.3 cm in the left apex - Kaley albicans in sputum cx on 08/28/2018 - likely colonizer - so far: aspergillus antibody not detected, HIV negative, coccidioidomycosis serology negative GI - Lucero-colitis per CT - S/p sigmoidoscopy with biopsy 08/17/2018; path showed no e/o colitis or malignancy from transverse colon and rectum biopsies - S/p bloody diarrhea d/t Giardia; Pt took metronidazole for Giardia (08/14/2018- 08/21/2018) in 07/2018. - H/o C diff toxin negative PCR positive status at [facility]. Took a course of Fidaxomyxin x 10 days. C. diff was negative on 08/14/2018 at [facility] - H/o cholecystectomy heme/oncology - S/p CT guided bone marrow aspiration and biopsy 08/20/2018 - Microcytic anemia requiring PRBC d/t acute blood loss - H/o BUE and RLE DVT, s/p IVC filter in January 2018 - H/o Hodgkin lymphoma diagnosed in 2006 - H/o thyroid CA diagnosed in 2005, s/p resection, chemo and XRT - IVC filter placement - +Family hx of cancer (father of stomach CA, mother of lymphoma, paternal uncle had breast CA and 12 yo daughter has h/o brain tumor s/p surgery and resulting blindness) , renal - h/o UTI due to ESBL+E. coli other conditions - a painful ulcer at frenulum, recurrent. According to Pt, topical steroid would worsen the pain. HIV negative, RPR non reactive, herpes 1 and 2 by PCR not detected; s/p trial of PO valacyclovir (08/27/2018-09/01/2018) - s/p bilateral conjunctivitis - improved s/p Cipro eye drops (08/18/18-08/23/18) - Hypothyroidism - HLD - Hypokalemia - OA - depression/anxiety - H/o x2 - Allergy to PCN and vancomycin (reaction unknown) Recommendations: - ordered repeat blood cultures x2 in AM - continue Daptomycin (clarify allergy to vanco) and cefepime for now - serial CK level (<20 on 09/03/2018) while on Dapto - we recommend TTE to r/o endocarditis and DC PICC - f/u final results luceor cultures, procalcitonin, 1,3 [id number] - trend fever curve - s/p PO levofloxacin (08/24/2018-08/28/2018) for probable UTI Management d/w patient, FERNANDO Kirkpatrick, and with Dr. Hansen Consultation Date/Type/Reason Admit Date/Time Aug 13, 2018 at 17:22 Initial Consult Date 08/19/18 Type of Consult Infectious Disease Requesting Provider: SHAQUILLE HARRIS Date/Time of Note DATE: 09/03/18 TIME: 16:25 24 HR Interval Summary Free Text/Dictation Repeat blood cx are again growing GNR and GPC in clusters. No change in pleuritic chest discomfort, upper back pain, and tongue pain r/t ulcer. Still has intermittent SOB, nausea and hemoptysis. Had high fever the other day and intermittent chills. Exam/Review of Systems Exam Vitals Vital Signs Date Temp Pulse Resp B/P (MAP) Pulse Ox O2 O2 Flow FiO2 Time Delivery Rate 09/03/18 98.2 82 20 107/67 100 Room Air 08:50 (80) Intake and Output 09/02/18 09/02/18 09/03/18 1515:00 23:00 07:00 IntakeIntake Total 560 ml 200 ml 1280 ml OutputOutput Total 150 ml BalanceBalance 560 ml 200 ml 1130 ml Exam Constitutional: alert, oriented, well developed, frail Psych: nl mood/affect Head: normocephalic, atraumatic Eyes: nl conjunctiva, nl lids, nl sclera ENMT: nl external ears & nose, nl nasal mucosa & septum, mucosa pink and moist, other (white ulcer of the frenulum linguae) Neck: supple, non-tender Respiratory: normal air movement, crackles/rales, other (hemoptysis noted in cup and urinal at bedside) Cardiovascular: regular rate and rhythm (slightly tachycardic), nl pulses Gastrointestinal: soft, non-tender; No distended Musculoskeletal: nl extremities to inspection; No swelling Extremities: normal pulses Neurological: nl mental status, nl speech Skin: nl turgor; No rash or lesions Results Result Diagram: 09/03/18 0512 09/03/18 0512 Results 24hrs Laboratory Tests Test 09/03/18 05:12 White Blood Count 3.2 #L Red Blood Count 3.49 L Hemoglobin 8.7 L Hematocrit 27.2 L Mean Corpuscular Volume 77.9 L Mean Corpuscular Hemoglobin 24.9 L Mean Corpuscular Hemoglobin Concent 32.0 Red Cell Distribution Width 19.1 H Platelet Count 185 Mean Platelet Volume 11.0 H Immature Granulocytes % 0.600 H Neutrophils % 42.1 Lymphocytes % 37.3 Monocytes % 15.4 H Eosinophils % 4.0 Basophils % 0.6 Nucleated Red Blood Cells % 0.0 Immature Granulocytes # 0.020 Neutrophils # 1.4 L Lymphocytes # 1.2 Monocytes # 0.5 Eosinophils # 0.1 Basophils # 0.0 Nucleated Red Blood Cells # 0.0 Sodium Level 140 Potassium Level 3.8 Chloride Level 103 Carbon Dioxide Level 31 Anion Gap 6 Blood Urea Nitrogen 10 Creatinine 0.43 L Est Glomerular Filtrat Rate mL/min > 60 Glucose Level 90 # Calcium Level 9.2 Phosphorus Level 4.9 Magnesium Level 2.1 Creatine Kinase < 20 L Imaging Imaging CXR 09/01/2018: No evidence for active cardiopulmonary disease. Left PICC line in place. Medications Medication Current Medications IV Flush (NS 3 ml) 3 ml PER PROTOCOL IV ; Start 08/13/18 at 20:00 Ondansetron HCl (Zofran Inj) 4 mg Q6H PRN IV NAUSEA AND/OR VOMITING Last administered on 08/29/18 09:30; Admin Dose 4 MG; Start 08/13/18 at 20:00 Duloxetine HCl (Cymbalta) 60 mg DAILY PO Last administered on 09/03/18 08:22; Admin Dose 60 MG; Start 08/14/18 at 09:00 Levothyroxine Sodium (Synthroid) 50 mcg BEFORE BREAKFAST PO Last administered on 09/03/18 06:31; Admin Dose 50 MCG; Start 08/15/18 at 07:00 Alteplase, Recombinant (Cathflo (Activase)) 2 mg MAY REPEAT X1 PRN CATHETER IF CATHETER REMAINS OCCULUDED Last administered on 08/26/18 23:34; Admin Dose 2 MG; Start 08/15/18 at 06:00 Cholecalciferol (Vitamin D) 2,000 unit DAILY PO Last administered on 09/03/18 08:23; Admin Dose 2,000 UNIT; Start 08/17/18 at 09:00 Zinc Sulfate (Zinc Sulfate) 220 mg DAILY PO Last administered on 09/03/18 08:23; Admin Dose 220 MG; Start 08/17/18 at 09:00 Eye Lubricant (Artificial Tears Oph) 1 drop Q6H PRN BOTH EYES DRY EYES Last administered on 08/19/18 00:00; Admin Dose 1 DROP; Start 08/16/18 at 23:30 Methylnaltrexone Maxwell (Relistor) 12 mg Q48H SC Last administered on 09/02/18 08:08; Admin Dose 12 MG; Start 08/17/18 at 09:30 Miscellaneous Information 1 ea NOTE XX ; Start 08/17/18 at 10:30 Glucose (Glutose) 15 gm Q15M PRN PO DECREASED GLUCOSE; Start 08/17/18 at 10:30 Glucose (Glutose) 22.5 gm Q15M PRN PO DECREASED GLUCOSE; Start 08/17/18 at 10:30 Dextrose (D50w Syringe) 25 ml Q15M PRN IV DECREASED GLUCOSE; Start 08/17/18 at 10:30 Dextrose (D50w Syringe) 50 ml Q15M PRN IV DECREASED GLUCOSE; Start 08/17/18 at 10:30 Glucagon (Glucagen) 1 mg Q15M PRN IM DECREASED GLUCOSE; Start 08/17/18 at 10:30 Glucose (Glutose) 15 gm Q15M PRN BUCCAL DECREASED GLUCOSE; Start 08/17/18 at 10:30 Hydromorphone HCl (Dilaudid) 2 mg Q3 PRN IV SEVERE PAIN LEVEL 7-10 Last administered on 09/03/18 14:24; Admin Dose 2 MG; Start 08/17/18 at 14:30 Lorazepam (Ativan) 1 mg Q6H PRN IV Anxiety Last administered on 09/03/18 09:30; Admin Dose 1 MG; Start 08/18/18 at 14:30 Zolpidem Tartrate (Ambien) 10 mg QHS PRN PO INSOMNIA Last administered on 09/03/18 00:07; Admin Dose 10 MG; Start 08/20/18 at 11:30 Phenol (Cepastat Lozenge) 1 lozenge Q1H PRN MT THROAT PAIN Last administered on 09/03/18 06:31; Admin Dose 1 LOZENGE; Start 08/21/18 at 11:00 Pantoprazole (Protonix Tab) 40 mg BID PO Last administered on 09/03/18 08:23; Admin Dose 40 MG; Start 08/25/18 at 09:00 Diphenhydramine HCl (Benadryl) 50 mg Q6H PRN IV ITCHING Last administered on 09/03/18 14:24; Admin Dose 50 MG; Start 08/26/18 at 21:00 Dextrose 1,000 ml @ 50 mls/hr Q20H IV Last administered on 09/03/18 16:21; Admin Dose 50 MLS/HR; Start 08/31/18 at 08:00 Acetaminophen (Tylenol Tab) 500 mg Q6H PRN PO MILD PAIN(1-3)OR ELEVATED TEMP; Start 09/01/18 at 18:30 Lidocaine (Xylocaine (Viscous)) 15 ml QID PRN PO Pain in the mouth; Start 09/02/18 at 10:30 Cefepime HCl 50 ml @ 100 mls/hr Q12 IVPB Last administered on 09/03/18 11:14; Admin Dose 100 MLS/HR; Start 09/03/18 at 10:30 Daptomycin 500 mg/ Sodium Chloride 100 ml @ 200 mls/hr Q24H IVPB ; Start 09/03/18 at 16:00 RICHARD APPLE NP Sep 03, 2018 16:25
[2018-09-03] MEDS: DAPTOMYCIN 500 MG in SOD CHLORIDE 0.9% 100 ML IVPB SCH (17:19)
--- NOTE | 2018-09-03 17:58 | CONS ---
Assessment/Plan Assessment/Plan Assessment/Plan (Daily) h/o Lymphoma -thus far there are no lesions that can be biopsied and it does not appear she has active cancer #Anemia-hgb 9.2 today- sp 2 units of PRBC -Hgb Electrophoresis - confirms B- thalassemia trait with Anemia -pt has had microcytic anemia requiring transfusions for years -will order a bone marrow bx at this time- pending -anemia panel-anemia positive # Hemoptysis VS Hematemesis - GI follows - 08/31/2018- S/P esophagogastroduodenoscopy- showed no evidence of any gastrointestinal bleed. #Hemoptysis, recurrent. -s/p unremarkable bronchoscopy at [facility] -s/p unremarkable flexible laryngoscopy 02/05/17 at [facility] -CT Chest pulmonary nodules are noted but are too small to biopsy -ID workup pending for pulmonary nodules- Numerous tiny lung nodules, increased in number from the chest CT dated May 22, 2018, with largest measuring 0.3 cm in the left apex - 02/2018- negative TB workup -08/21/18-CT Chest Angio- no new changes. will do Follow-up CT in X 3-4 months to insure stability as recommended - 08/24/18- Repeat bronchoscopy - wnl - Given her platelets and coag panel are wnl; Bronchoscopy is wnl #pancolitis. -Colonoscopy on 08/17/2018 showed patchy colitis. bx was negative -Stool positive for Giardia- pt on vancomycin and flagyl Patient seen in collaboration with Dr Brown. Dw Staff Consultation Date/Type/Reason Admit Date/Time Aug 13, 2018 at 5:22 pm Initial Consult Date 08/19/18 Type of Consult ONCOLOGY Reason for Consultation Pancytopenia Requesting Provider: SHAQUILLE HARRIS Date/Time of Note DATE: 09/03/18 TIME: 17:57 24 HR Interval Summary Free Text/Dictation - feels better - 08/31/2018- S/P esophagogastroduodenoscopy- showed no evidence of any gastrointestinal bleed. - no new events reported last night Constitutional: requiring O2 Detailed Summary Eyes: no complaints ENT: no complaints Respiratory: cough (w/ blood), shortness of breath, other Gastrointestinal: nausea Genitourinary: no complaints Musculoskeletal: other Neurologic: no complaints Endocrine: no complaints Exam/Review of Systems Exam Vitals Vital Signs Date Temp Pulse Resp B/P (MAP) Pulse Ox O2 O2 Flow FiO2 Time Delivery Rate 09/03/18 98.2 82 20 107/67 100 Room Air 08:50 (80) Intake and Output 09/02/18 09/02/18 09/03/18 1515:00 23:00 07:00 IntakeIntake Total 560 ml 200 ml 1280 ml OutputOutput Total 150 ml BalanceBalance 560 ml 200 ml 1130 ml Constitutional: alert, well developed Psych: no complaints Eyes: EOMI, nl lids ENMT: nl external ears & nose Respiratory: crackles/rales (at bases bilaterally), diminished breath sounds Cardiovascular: nl pulses, other (ss1s2) Gastrointestinal: soft, non-tender Musculoskeletal: nl extremities to inspection Extremities: normal pulses Neurological: nl speech, other (alert/responsive) Skin: nl turgor Lymph: nontender Results Result Diagram: 09/03/18 0512 09/03/18 0512 Results 24hrs Laboratory Tests Test 09/03/18 05:12 White Blood Count 3.2 #L Red Blood Count 3.49 L Hemoglobin 8.7 L Hematocrit 27.2 L Mean Corpuscular Volume 77.9 L Mean Corpuscular Hemoglobin 24.9 L Mean Corpuscular Hemoglobin Concent 32.0 Red Cell Distribution Width 19.1 H Platelet Count 185 Mean Platelet Volume 11.0 H Immature Granulocytes % 0.600 H Neutrophils % 42.1 Lymphocytes % 37.3 Monocytes % 15.4 H Eosinophils % 4.0 Basophils % 0.6 Nucleated Red Blood Cells % 0.0 Immature Granulocytes # 0.020 Neutrophils # 1.4 L Lymphocytes # 1.2 Monocytes # 0.5 Eosinophils # 0.1 Basophils # 0.0 Nucleated Red Blood Cells # 0.0 Sodium Level 140 Potassium Level 3.8 Chloride Level 103 Carbon Dioxide Level 31 Anion Gap 6 Blood Urea Nitrogen 10 Creatinine 0.43 L Est Glomerular Filtrat Rate mL/min > 60 Glucose Level 90 # Calcium Level 9.2 Phosphorus Level 4.9 Magnesium Level 2.1 Creatine Kinase < 20 L Medications Medication Current Medications IV Flush (NS 3 ml) 3 ml PER PROTOCOL IV ; Start 08/13/18 at 20:00 Ondansetron HCl (Zofran Inj) 4 mg Q6H PRN IV NAUSEA AND/OR VOMITING Last administered on 08/29/18 09:30; Admin Dose 4 MG; Start 08/13/18 at 20:00 Duloxetine HCl (Cymbalta) 60 mg DAILY PO Last administered on 09/03/18 08:22; Admin Dose 60 MG; Start 08/14/18 at 09:00 Levothyroxine Sodium (Synthroid) 50 mcg BEFORE BREAKFAST PO Last administered on 09/03/18 06:31; Admin Dose 50 MCG; Start 08/15/18 at 07:00 Alteplase, Recombinant (Cathflo (Activase)) 2 mg MAY REPEAT X1 PRN CATHETER IF CATHETER REMAINS OCCULUDED Last administered on 08/26/18 23:34; Admin Dose 2 MG; Start 08/15/18 at 06:00 Cholecalciferol (Vitamin D) 2,000 unit DAILY PO Last administered on 09/03/18 08:23; Admin Dose 2,000 UNIT; Start 08/17/18 at 09:00 Zinc Sulfate (Zinc Sulfate) 220 mg DAILY PO Last administered on 09/03/18 08:23; Admin Dose 220 MG; Start 08/17/18 at 09:00 Eye Lubricant (Artificial Tears Oph) 1 drop Q6H PRN BOTH EYES DRY EYES Last administered on 08/19/18 00:00; Admin Dose 1 DROP; Start 08/16/18 at 23:30 Methylnaltrexone [place] (Relistor) 12 mg Q48H SC Last administered on 09/02/18 08:08; Admin Dose 12 MG; Start 08/17/18 at 09:30 Miscellaneous Information 1 ea NOTE XX ; Start 08/17/18 at 10:30 Glucose (Glutose) 15 gm Q15M PRN PO DECREASED GLUCOSE; Start 08/17/18 at 10:30 Glucose (Glutose) 22.5 gm Q15M PRN PO DECREASED GLUCOSE; Start 08/17/18 at 10:30 Dextrose (D50w Syringe) 25 ml Q15M PRN IV DECREASED GLUCOSE; Start 08/17/18 at 10:30 Dextrose (D50w Syringe) 50 ml Q15M PRN IV DECREASED GLUCOSE; Start 08/17/18 at 10:30 Glucagon (Glucagen) 1 mg Q15M PRN IM DECREASED GLUCOSE; Start 08/17/18 at 10:30 Glucose (Glutose) 15 gm Q15M PRN BUCCAL DECREASED GLUCOSE; Start 08/17/18 at 10:30 Hydromorphone HCl (Dilaudid) 2 mg Q3 PRN IV SEVERE PAIN LEVEL 7-10 Last administered on 09/03/18 17:30; Admin Dose 2 MG; Start 08/17/18 at 14:30 Lorazepam (Ativan) 1 mg Q6H PRN IV Anxiety Last administered on 09/03/18 09:30; Admin Dose 1 MG; Start 08/18/18 at 14:30 Zolpidem Tartrate (Ambien) 10 mg QHS PRN PO INSOMNIA Last administered on 09/03/18 00:07; Admin Dose 10 MG; Start 08/20/18 at 11:30 Phenol (Cepastat Lozenge) 1 lozenge Q1H PRN MT THROAT PAIN Last administered on 09/03/18 06:31; Admin Dose 1 LOZENGE; Start 08/21/18 at 11:00 Pantoprazole (Protonix Tab) 40 mg BID PO Last administered on 09/03/18 08:23; Admin Dose 40 MG; Start 08/25/18 at 09:00 Diphenhydramine HCl (Benadryl) 50 mg Q6H PRN IV ITCHING Last administered on 09/03/18 14:24; Admin Dose 50 MG; Start 08/26/18 at 21:00 Dextrose 1,000 ml @ 50 mls/hr Q20H IV Last administered on 09/03/18 16:21; Admin Dose 50 MLS/HR; Start 08/31/18 at 08:00 Acetaminophen (Tylenol Tab) 500 mg Q6H PRN PO MILD PAIN(1-3)OR ELEVATED TEMP; Start 09/01/18 at 18:30 Lidocaine (Xylocaine (Viscous)) 15 ml QID PRN PO Pain in the mouth; Start 09/02/18 at 10:30 Cefepime HCl 50 ml @ 100 mls/hr Q12 IVPB Last administered on 09/03/18 11:14; Admin Dose 100 MLS/HR; Start 09/03/18 at 10:30 Daptomycin 500 mg/ Sodium Chloride 100 ml @ 200 mls/hr Q24H IVPB Last administered on 09/03/18 17:19; Admin Dose 200 MLS/HR; Start 09/03/18 at 16:00 SULEMA WRIGHT Sep 03, 2018 17:57
[2018-09-03 20:35] VITALS: BP 137/74; PULSE 83; RESP 18
[2018-09-04 02:00] VITALS: BP 114/64; PULSE 86; RESP 18
[2018-09-04] MEDS: HYDROmorphONE 2 MG/ML SYG IV PRN ×7 (02:49→21:03)
[2018-09-04] MEDS: DIPHENHYDRAMINE 50 MG INJ IV PRN ×4 (02:50→21:02)
[2018-09-04] MEDS: LORAZEPAM 2 MG INJ IV PRN ×2 (04:20→16:29)
--- NOTE | 2018-09-04 06:32 | PN ---
Date/Time of Note Date/Time of Note DATE: 09/04/18 TIME: 06:31 Assessment/Plan VTE Prophylaxis Risk score (from Ns)>0 risk: 10 SCD applied (from Ns): No SCD contraindicated: other Pharmacological prophylaxis: NA/contraindicated Pharm contraindication: bleeding Lines/Catheters [facility] PICC Line Central line still needed: Yes Urinary Cath still in place: No Assessment/Plan Hospital Course SUBJECTIVE: Denies any abdominal pain or diarrhea. Reports hemoptysis. OBJECTIVE: Physical Exam General: Adequately build 52 year-old female lying in bed in no apparent distress. HEENT: Normocephalic, atraumatic. Eyes: Anicteric sclerae, conjunctivae clear. ENT: Nasal septum midline, oral mucosa moist. Ulcer in the frenulum linguae. Neck supple, no JVD noticed. Respiratory: Bilaterally clear breath sounds. No use of accessory muscles of respiration. No adventitious breath sounds. Cardiovascular: S1, S2 heard. No murmurs or gallops. Abdomen: Soft, nondistended, nontender. Bowel sounds positive in all 4 quadrants. Genitourinary: Deferred. Extremities: No cyanosis, no clubbing, no edema. Peripheral pulses palpable. Neurologic: Cranial nerves II through XII grossly intact. The patient is awake, alert, and oriented. Skin: Normal skin turgor. No skin rashes. Labs & Vitals per chart ASSESSMENT & PLAN This is a 52-year-old female with comorbidities including reported (non documented) Hodgkin's lymphoma of the lung, history of thyroid cancer status post thyroid surgery,chronic pain syndrome, and.history of PE status post IVC f ilter placement who came to the emergency room with chief complaint of abdominal pain and bloody stools. The patient's CT scan of the abdomen and pelvis was showing colitis involving the ascending, transverse, descending colon. The patient also had underlying leukocytosis and bandemia. Therefore, the patient was admitted to inpatient setting for further treatment and evaluation. 1. Acute pancolitis. -Stool studies showing Giardia. S/P Flagyl (last day 08/21/2018) -Being followed by gastroenterology and ID. -Colonoscopy on 08/17/2018 showed patchy colitis. 2. Fevers with Gram positive bacteremia on 09/01/2018. Gram negative bacteremia on 09/03/2018. -The patient is allergic to vancomycin. -Started the patient on daptomycin on 09/02/2018. -Start the patient on cefepime on 09/03/2018. 3. 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 -No evidence or documented history of Hodgkin's lymphoma as per oncology. 4. History of PE. -Status post IVC filter placement. 5. Anemia. -Microcytic and hypochromic. -Monitor H&H closely. -Stool for OB x1 positive. 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 6. Chronic pain syndrome. -Pain management as per pain team. 7. Hyperglycemia. -Etiology unclear. -Hemoglobin A1c within normal limits although this could be the glycosylated hemoglobin from the transfused (donor) blood. -The patient was told by her primary care provider previously that she is borderline diabetic. -Started the patient on sliding scale insulin on 08/17/2018. -Stopped the patients insulin SSI on 08/21/2018 once the hyperglycemia was resolved. 8. Hemoptysis on 08/18/2018. -Being followed by Pulmonology. -S/P bronchoscopy on 08/24/2018 that was unremarkable. -S/P esophagogastroduodenoscopy on 08/31/2018 that showed no evidence of any gastrointestinal bleed. -Status post ENT evaluation along with laryngoscopy on 09/01/2018 with no evidence of any bleeding site history of hemoptysis. 9. Ulcer of the frenulum linguae. -Continue management as per ID. 10. Fluids, electrolytes, and nutrition. -Soft diet. 11. DVT prophylaxis -Bilateral SCDs. 12. Plan. -Continue pain control. -Continue antimicrobials. -2D echo to evaluate for any cardiac vegetation. The patient was seen in collaboration with Dr. Montes. Result Diagram: 09/03/18 0512 09/03/18 0512 Results 24hrs Laboratory Tests Test 09/04/18 05:55 White Blood Count Pending Red Blood Count Pending Hemoglobin Pending Hematocrit Pending Mean Corpuscular Volume Pending Mean Corpuscular Hemoglobin Pending Mean Corpuscular Hemoglobin Concent Pending Red Cell Distribution Width Pending Platelet Count Pending Mean Platelet Volume Pending Exam/Review of Systems Exam Vitals Vital Signs Date Temp Pulse Resp B/P (MAP) Pulse Ox O2 O2 Flow FiO2 Time Delivery Rate 09/04/18 98.3 86 18 114/64 97 02:00 (81) 09/03/18 Room Air 14:30 Intake and Output 09/03/18 09/03/18 09/04/18 1515:00 23:00 07:00 IntakeIntake Total 730 ml 400 ml BalanceBalance 730 ml 400 ml Results Results 24hrs Laboratory Tests Test 09/04/18 05:55 White Blood Count Pending Red Blood Count Pending Hemoglobin Pending Hematocrit Pending Mean Corpuscular Volume Pending Mean Corpuscular Hemoglobin Pending Mean Corpuscular Hemoglobin Concent Pending Red Cell Distribution Width Pending Platelet Count Pending Mean Platelet Volume Pending Medications Medication Current Medications IV Flush (NS 3 ml) 3 ml PER PROTOCOL IV ; Start 08/13/18 at 20:00 Ondansetron HCl (Zofran Inj) 4 mg Q6H PRN IV NAUSEA AND/OR VOMITING Last administered on 08/29/18 09:30; Admin Dose 4 MG; Start 08/13/18 at 20:00 Duloxetine HCl (Cymbalta) 60 mg DAILY PO Last administered on 09/03/18 08:22; Admin Dose 60 MG; Start 08/14/18 at 09:00 Levothyroxine Sodium (Synthroid) 50 mcg BEFORE BREAKFAST PO Last administered on 09/03/18 06:31; Admin Dose 50 MCG; Start 08/15/18 at 07:00 Alteplase, Recombinant (Cathflo (Activase)) 2 mg MAY REPEAT X1 PRN CATHETER IF CATHETER REMAINS OCCULUDED Last administered on 08/26/18 23:34; Admin Dose 2 MG; Start 08/15/18 at 06:00 Cholecalciferol (Vitamin D) 2,000 unit DAILY PO Last administered on 09/03/18 08:23; Admin Dose 2,000 UNIT; Start 08/17/18 at 09:00 Zinc Sulfate (Zinc Sulfate) 220 mg DAILY PO Last administered on 09/03/18 08:23; Admin Dose 220 MG; Start 08/17/18 at 09:00 Eye Lubricant (Artificial Tears Oph) 1 drop Q6H PRN BOTH EYES DRY EYES Last administered on 08/19/18 00:00; Admin Dose 1 DROP; Start 08/16/18 at 23:30 Methylnaltrexone [place] (Relistor) 12 mg Q48H SC Last administered on 09/02/18 08:08; Admin Dose 12 MG; Start 08/17/18 at 09:30 Miscellaneous Information 1 ea NOTE XX ; Start 08/17/18 at 10:30 Glucose (Glutose) 15 gm Q15M PRN PO DECREASED GLUCOSE; Start 08/17/18 at 10:30 Glucose (Glutose) 22.5 gm Q15M PRN PO DECREASED GLUCOSE; Start 08/17/18 at 10:30 Dextrose (D50w Syringe) 25 ml Q15M PRN IV DECREASED GLUCOSE; Start 08/17/18 at 10:30 Dextrose (D50w Syringe) 50 ml Q15M PRN IV DECREASED GLUCOSE; Start 08/17/18 at 10:30 Glucagon (Glucagen) 1 mg Q15M PRN IM DECREASED GLUCOSE; Start 08/17/18 at 10:30 Glucose (Glutose) 15 gm Q15M PRN BUCCAL DECREASED GLUCOSE; Start 08/17/18 at 10:30 Hydromorphone HCl (Dilaudid) 2 mg Q3 PRN IV SEVERE PAIN LEVEL 7-10 Last administered on 09/04/18at 05:49; Admin Dose 2 MG; Start 08/17/18 at 14:30 Lorazepam (Ativan) 1 mg Q6H PRN IV Anxiety Last administered on 09/04/18 04:20; Admin Dose 1 MG; Start 08/18/18 at 14:30 Zolpidem Tartrate (Ambien) 10 mg QHS PRN PO INSOMNIA Last administered on 09/03/18 23:12; Admin Dose 10 MG; Start 08/20/18 at 11:30 Phenol (Cepastat Lozenge) 1 lozenge Q1H PRN MT THROAT PAIN Last administered on 09/03/18 06:31; Admin Dose 1 LOZENGE; Start 08/21/18 at 11:00 Pantoprazole (Protonix Tab) 40 mg BID PO Last administered on 09/03/18 21:35; Admin Dose 40 MG; Start 08/25/18 at 09:00 Diphenhydramine HCl (Benadryl) 50 mg Q6H PRN IV ITCHING Last administered on 09/04/18 02:50; Admin Dose 50 MG; Start 08/26/18 at 21:00 Dextrose 1,000 ml @ 50 mls/hr Q20H IV Last administered on 09/03/18at 16:21; Admin Dose 50 MLS/HR; Start 08/31/18 at 08:00 Acetaminophen (Tylenol Tab) 500 mg Q6H PRN PO MILD PAIN(1-3)OR ELEVATED TEMP; Start 09/01/18 at 18:30 Lidocaine (Xylocaine (Viscous)) 15 ml QID PRN PO Pain in the mouth; Start 09/02/18 at 10:30 Cefepime HCl 50 ml @ 100 mls/hr Q12 IVPB Last administered on 09/03/18at 21:35; Admin Dose 100 MLS/HR; Start 09/03/18 at 10:30 Daptomycin 500 mg/ Sodium Chloride 100 ml @ 200 mls/hr Q24H IVPB Last administered on 09/03/18at 17:19; Admin Dose 200 MLS/HR; Start 09/03/18 at 16:00 SUZANNE STEVENSON NP Sep 04, 2018 06:32
[2018-09-04] MEDS: LEVOTHYROXINE 50 MCG TAB PO SCH (06:47)
[2018-09-04 07:20] VITALS: BP 106/65; PULSE 73; RESP 18
[2018-09-04] MEDS: DULOXETINE 30 MG CAP DR PO SCH (08:43)
[2018-09-04] MEDS: METHYLNALTREXONE 12 MG/0.6 ML VIAL SC SCH (08:43)
[2018-09-04] MEDS: PANTOPRAZOLE (EC) 40 MG TAB PO SCH ×2 (08:43→20:37)
[2018-09-04] MEDS: CEFEPIME 1GM/50 ML (PMX) 50 ML IVPB SCH ×2 (08:43→20:38)
[2018-09-04] MEDS: CHOLECALCIFEROL 2,000 UNIT CAP PO SCH (08:43)
[2018-09-04] MEDS: ZINC SULFATE 220 MG CAP PO SCH (08:43)
--- NOTE | 2018-09-04 10:17 | CONS ---
Assessment/Plan Assessment/Plan Hospital Course (Demo Recall) sepsis, bloodstream infection - Bacteremia: Blood cultures 09/01/18 grew Coag Neg Staph and Stenotrophomonas maltophilia, Repeat blood cultures 09/02/18 growing Stenotrophomonas maltophilia and staph species, repeat blood cultures 09/04/18 pending - H/o "bacteremia due to enterococci" according to progress notes at [facility], but the actual microbiology report indicated blood culture was positive for ESBL+E. coli - h/o fungemia due to rhonda glabrata, sensitive to fluconazole and to micafungin/caspofungin at [facility] - possible early SIRS vs sepsis pulm - persistent hemoptysis of unknown etiology: Pt reports negative PPD last month at [facility]. - according to the microbiology report at [facility], Pt had ESBL+E. coli in her respiratory culture. Sputum cultures for AFB and fungi were negative at 8 weeks and at 4 weeks respectively at [facility] - Pt had negative bronchoscopy in 05/2018 at [facility], another at [facility] in 2017, and on 08/25/2018 at [facility] (no e/o bronchial airway bleeding according to Dr. Bello - Numerous tiny lung nodules, increased in number from the chest CT dated May 22, 2018, with largest measuring 0.3 cm in the left apex - Rhonda albicans in sputum cx on 08/28/2018 - likely colonizer - so far: aspergillus antibody not detected, HIV negative, coccidioidomycosis serology negative, 1,3 beta d glucan negative GI - Lucero-colitis per CT - S/p sigmoidoscopy with biopsy 08/17/2018; path showed no e/o colitis or malignancy from transverse colon and rectum biopsies - S/p bloody diarrhea d/t Giardia; Pt took metronidazole for Giardia (08/14/2018- 08/21/2018) in 07/2018. - H/o C diff toxin negative PCR positive status at [facility]. Took a course of Fidaxomyxin x 10 days. C. diff was negative on 08/14/2018 at [facility] - H/o cholecystectomy heme/oncology - S/p CT guided bone marrow aspiration and biopsy 08/20/2018 - Microcytic anemia requiring PRBC d/t acute blood loss - H/o BUE and RLE DVT, s/p IVC filter in January 2018 - H/o Hodgkin lymphoma diagnosed in 2006 - H/o thyroid CA diagnosed in 2005, s/p resection, chemo and XRT - IVC filter placement - +Family hx of cancer (father of stomach CA, mother of lymphoma, paternal uncle had breast CA and 12 yo daughter has h/o brain tumor s/p surgery and resulting blindness) , renal - h/o UTI due to ESBL+E. coli other conditions - a painful ulcer at frenulum, recurrent. According to Pt, topical steroid would worsen the pain. HIV negative, RPR non reactive, herpes 1 and 2 by PCR not detected; s/p trial of PO valacyclovir (08/27/2018-09/01/2018) - s/p bilateral conjunctivitis - improved s/p Cipro eye drops (08/18/18-08/23/18) - Hypothyroidism - HLD - Hypokalemia - OA - depression/anxiety - H/o x2 - Allergy to PCN and vancomycin (reaction unknown) Recommendations: - F/u repeat blood cultures done this am (pending in process) - Continue Daptomycin (clarify allergy to vanco) and cefepime for now - Serial CK level (<20 on 09/03/2018) while on Dapto - We recommend TTE to r/o endocarditis and DC PICC - F/u final results lucero cultures, procalcitonin - Trend fever curve - S/p PO levofloxacin (08/24/2018-08/28/2018) for probable UTI Management d/w patient and with Dr. Hansen. Thank you Consultation Date/Type/Reason Admit Date/Time Aug 13, 2018 at 17:22 Initial Consult Date 08/19/18 Type of Consult ID Requesting Provider: SHAQUILLE HARRIS Date/Time of Note DATE: 09/04/18 TIME: 10:13 24 HR Interval Summary Free Text/Dictation Patient has remained afebrile. WBC 3.9. Repeat blood cultures were drawn this am. No acute issues reported. Patient c/o nausea. She c/o occasional feeling of sob and hemoptysis. C/o chills overnight. She also states "I don't think my picc line is infected, I had blood infection before without the line." I d/w her the risks of indwelling lines but she again stated "But I don't think so." Otherwise ROS was negative. Exam/Review of Systems Exam Vitals Vital Signs Date Temp Pulse Resp B/P (MAP) Pulse Ox O2 O2 Flow FiO2 Time Delivery Rate 09/04/18 98.3 73 18 106/65 98 Room Air 07:20 (79) Intake and Output 09/03/18 09/03/18 09/04/18 1515:00 23:00 07:00 IntakeIntake Total 730 ml 400 ml 600 ml BalanceBalance 730 ml 400 ml 600 ml Constitutional: alert, oriented, well developed Psych: no complaints, nl mood/affect Head: normocephalic, atraumatic Eyes: nl conjunctiva, nl lids, nl sclera ENMT: nl external ears & nose, nl nasal mucosa & septum, mucosa pink and moist (with a white ulcer of the frenulum linguae) Neck: supple, non-tender Respiratory: normal air movement, crackles/rales Cardiovascular: regular rate and rhythm, nl pulses Gastrointestinal: soft, non-tender; No distended Genitourinary - Female: other (no f/c) Musculoskeletal: nl extremities to inspection; No swelling Extremities: normal pulses Neurological: nl mental status, nl speech Skin: nl turgor; No rash or lesions Results Result Diagram: 09/04/18 0555 09/04/18 0555 Results 24hrs Laboratory Tests Test 09/04/18 05:55 White Blood Count 3.9 #L Red Blood Count 3.80 L Hemoglobin 9.3 L Hematocrit 29.7 L Mean Corpuscular Volume 78.2 L Mean Corpuscular Hemoglobin 24.5 L Mean Corpuscular Hemoglobin Concent 31.3 L Red Cell Distribution Width 18.7 H Platelet Count 162 Mean Platelet Volume 11.6 H Immature Granulocytes % 0.500 H Neutrophils % 44.3 Lymphocytes % 37.3 Monocytes % 13.5 H Eosinophils % 3.6 Basophils % 0.8 Nucleated Red Blood Cells % 0.0 Immature Granulocytes # 0.020 Neutrophils # 1.7 Lymphocytes # 1.4 Monocytes # 0.5 Eosinophils # 0.1 Basophils # 0.0 Nucleated Red Blood Cells # 0.0 Sodium Level 140 Potassium Level 3.9 Chloride Level 100 Carbon Dioxide Level 29 Anion Gap 11 Blood Urea Nitrogen 13 Creatinine 0.46 Est Glomerular Filtrat Rate mL/min > 60 Glucose Level 104 Calcium Level 9.6 Phosphorus Level 5.5 H Magnesium Level 1.9 Medications Medication Current Medications IV Flush (NS 3 ml) 3 ml PER PROTOCOL IV ; Start 08/13/18 at 20:00 Ondansetron HCl (Zofran Inj) 4 mg Q6H PRN IV NAUSEA AND/OR VOMITING Last administered on 08/29/18 09:30; Admin Dose 4 MG; Start 08/13/18 at 20:00 Duloxetine HCl (Cymbalta) 60 mg DAILY PO Last administered on 09/04/18 08:43; Admin Dose 60 MG; Start 08/14/18 at 09:00 Levothyroxine Sodium (Synthroid) 50 mcg BEFORE BREAKFAST PO Last administered on 09/04/18 06:47; Admin Dose 50 MCG; Start 08/15/18 at 07:00 Alteplase, Recombinant (Cathflo (Activase)) 2 mg MAY REPEAT X1 PRN CATHETER IF CATHETER REMAINS OCCULUDED Last administered on 08/26/18 23:34; Admin Dose 2 M G; Start 08/15/18 at 06:00 Cholecalciferol (Vitamin D) 2,000 unit DAILY PO Last administered on 09/04/18 08:43; Admin Dose 2,000 UNIT; Start 08/17/18 at 09:00 Zinc Sulfate (Zinc Sulfate) 220 mg DAILY PO Last administered on 09/04/18 08:43; Admin Dose 220 MG; Start 08/17/18 at 09:00 Eye Lubricant (Artificial Tears Oph) 1 drop Q6H PRN BOTH EYES DRY EYES Last administered on 08/19/18 00:00; Admin Dose 1 DROP; Start 08/16/18 at 23:30 Methylnaltrexone [place] (Relistor) 12 mg Q48H SC Last administered on 09/04/18 08:43; Admin Dose 12 MG; Start 08/17/18 at 09:30 Miscellaneous Information 1 ea NOTE XX ; Start 08/17/18 at 10:30 Glucose (Glutose) 15 gm Q15M PRN PO DECREASED GLUCOSE; Start 08/17/18 at 10:30 Glucose (Glutose) 22.5 gm Q15M PRN PO DECREASED GLUCOSE; Start 08/17/18 at 10:30 Dextrose (D50w Syringe) 25 ml Q15M PRN IV DECREASED GLUCOSE; Start 08/17/18 at 10:30 Dextrose (D50w Syringe) 50 ml Q15M PRN IV DECREASED GLUCOSE; Start 08/17/18 at 10:30 Glucagon (Glucagen) 1 mg Q15M PRN IM DECREASED GLUCOSE; Start 08/17/18 at 10:30 Glucose (Glutose) 15 gm Q15M PRN BUCCAL DECREASED GLUCOSE; Start 08/17/18 at 10:30 Hydromorphone HCl (Dilaudid) 2 mg Q3 PRN IV SEVERE PAIN LEVEL 7-10 Last administered on 09/04/18 08:44; Admin Dose 2 MG; Start 08/17/18 at 14:30 Lorazepam (Ativan) 1 mg Q6H PRN IV Anxiety Last administered on 09/04/18 04:20; Admin Dose 1 MG; Start 08/18/18 at 14:30 Zolpidem Tartrate (Ambien) 10 mg QHS PRN PO INSOMNIA Last administered on 09/03/18 23:12; Admin Dose 10 MG; Start 08/20/18 at 11:30 Phenol (Cepastat Lozenge) 1 lozenge Q1H PRN MT THROAT PAIN Last administered on 09/03/18 06:31; Admin Dose 1 LOZENGE; Start 08/21/18 at 11:00 Pantoprazole (Protonix Tab) 40 mg BID PO Last administered on 09/04/18 08:43; Admin Dose 40 MG; Start 08/25/18 at 09:00 Diphenhydramine HCl (Benadryl) 50 mg Q6H PRN IV ITCHING Last administered on 09/04/18 08:43; Admin Dose 50 MG; Start 08/26/18 at 21:00 Dextrose 1,000 ml @ 50 mls/hr Q20H IV Last administered on 09/03/18 16:21; Admin Dose 50 MLS/HR; Start 08/31/18 at 08:00 Acetaminophen (Tylenol Tab) 500 mg Q6H PRN PO MILD PAIN(1-3)OR ELEVATED TEMP; Start 09/01/18 at 18:30 Lidocaine (Xylocaine (Viscous)) 15 ml QID PRN PO Pain in the mouth; Start 09/02/18 at 10:30 Cefepime HCl 50 ml @ 100 mls/hr Q12 IVPB Last administered on 09/04/18at 08:43; Admin Dose 100 MLS/HR; Start 09/03/18 at 10:30 Daptomycin 500 mg/ Sodium Chloride 100 ml @ 200 mls/hr Q24H IVPB Last administered on 09/03/18at 17:19; Admin Dose 200 MLS/HR; Start 09/03/18 at 16:00 LAST GARNER NP Sep 04, 2018 10:17
--- NOTE | 2018-09-04 12:22 | CONS ---
Assessment/Plan Assessment/Plan Assessment/Plan (Daily) h/o Lymphoma -thus far there are no lesions that can be biopsied and it does not appear she has active cancer #Anemia-hgb 9.3 today- sp 2 units of PRBC -Hgb Electrophoresis - confirms B- thalassemia trait with Anemia -pt has had microcytic anemia requiring transfusions for years -will order a bone marrow bx at this time- pending -anemia panel-anemia positive # Hemoptysis VS Hematemesis - GI follows -- 08/31/2018- S/P esophagogastroduodenoscopy- showed no evidence of any gastrointestinal bleed. #Hemoptysis, recurrent. -s/p unremarkable bronchoscopy at [facility] -s/p unremarkable flexible laryngoscopy 02/05/17 at [facility] -CT Chest pulmonary nodules are noted but are too small to biopsy -ID workup pending for pulmonary nodules- Numerous tiny lung nodules, increased in number from the chest CT dated May 22, 2018, with largest measuring 0.3 cm in the left apex - 02/2018- negative TB workup -08/21/18-CT Chest Angio- no new changes. will do Follow-up CT in X 3-4 months to insure stability as recommended - 08/24/18- Repeat bronchoscopy - wnl - Given her platelets and coag panel are wnl; Bronchoscopy is wnl #pancolitis. -Colonoscopy on 08/17/2018 showed patchy colitis. bx was negative -Stool positive for Giardia- pt on vancomycin and flagyl Patient seen in collaboration with Dr Brown. Dw Staff Consultation Date/Type/Reason Admit Date/Time Aug 13, 2018 at 5:22 pm Initial Consult Date 08/19/18 Type of Consult ONCOLOGY Reason for Consultation Hx Lymphoma Requesting Provider: SHAQUILLE HARRIS Date/Time of Note DATE: 09/04/18 TIME: 12:22 24 HR Interval Summary Free Text/Dictation - c/o cough blood on and off; ok now - 08/31/2018- S/P esophagogastroduodenoscopy- showed no evidence of any gastrointestinal bleed. - no new events reported last night Constitutional: requiring O2 Detailed Summary Eyes: no complaints ENT: no complaints Respiratory: shortness of breath Cardiovascular: no complaints Gastrointestinal: nausea Genitourinary: no complaints Musculoskeletal: no complaints Neurologic: no complaints Exam/Review of Systems Exam Vitals Vital Signs Date Temp Pulse Resp B/P (MAP) Pulse Ox O2 O2 Flow FiO2 Time Delivery Rate 09/04/18 98.3 73 18 106/65 98 Room Air 07:20 (79) Intake and Output 09/03/18 09/03/18 09/04/18 1515:00 23:00 07:00 IntakeIntake Total 730 ml 400 ml 600 ml BalanceBalance 730 ml 400 ml 600 ml Constitutional: alert, well developed Psych: no complaints Eyes: nl lids, nl sclera ENMT: nl external ears & nose Neck: non-tender Respiratory: crackles/rales (at bases bilaterally), diminished breath sounds Cardiovascular: nl pulses, other (s1s2) Gastrointestinal: soft, non-tender Musculoskeletal: nl extremities to inspection Extremities: normal pulses Neurological: nl speech, other (alert/reponsive) Lymph: nontender Results Result Diagram: 09/04/18 0555 09/04/18 0555 Results 24hrs Laboratory Tests Test 09/04/18 05:55 White Blood Count 3.9 #L Red Blood Count 3.80 L Hemoglobin 9.3 L Hematocrit 29.7 L Mean Corpuscular Volume 78.2 L Mean Corpuscular Hemoglobin 24.5 L Mean Corpuscular Hemoglobin Concent 31.3 L Red Cell Distribution Width 18.7 H Platelet Count 162 Mean Platelet Volume 11.6 H Immature Granulocytes % 0.500 H Neutrophils % 44.3 Lymphocytes % 37.3 Monocytes % 13.5 H Eosinophils % 3.6 Basophils % 0.8 Nucleated Red Blood Cells % 0.0 Immature Granulocytes # 0.020 Neutrophils # 1.7 Lymphocytes # 1.4 Monocytes # 0.5 Eosinophils # 0.1 Basophils # 0.0 Nucleated Red Blood Cells # 0.0 Sodium Level 140 Potassium Level 3.9 Chloride Level 100 Carbon Dioxide Level 29 Anion Gap 11 Blood Urea Nitrogen 13 Creatinine 0.46 Est Glomerular Filtrat Rate mL/min > 60 Glucose Level 104 Calcium Level 9.6 Phosphorus Level 5.5 H Magnesium Level 1.9 Medications Medication Current Medications IV Flush (NS 3 ml) 3 ml PER PROTOCOL IV ; Start 08/13/18 at 20:00 Ondansetron HCl (Zofran Inj) 4 mg Q6H PRN IV NAUSEA AND/OR VOMITING Last administered on 08/29/18at 09:30; Admin Dose 4 MG; Start 08/13/18 at 20:00 Duloxetine HCl (Cymbalta) 60 mg DAILY PO Last administered on 09/04/18 08:43; Admin Dose 60 MG; Start 08/14/18 at 09:00 Levothyroxine Sodium (Synthroid) 50 mcg BEFORE BREAKFAST PO Last administered on 09/04/18 06:47; Admin Dose 50 MCG; Start 08/15/18 at 07:00 Alteplase, Recombinant (Cathflo (Activase)) 2 mg MAY REPEAT X1 PRN CATHETER IF CATHETER REMAINS OCCULUDED Last administered on 08/26/18 23:34; Admin Dose 2 MG; Start 08/15/18 at 06:00 Cholecalciferol (Vitamin D) 2,000 unit DAILY PO Last administered on 09/04/18 08:43; Admin Dose 2,000 UNIT; Start 08/17/18 at 09:00 Zinc Sulfate (Zinc Sulfate) 220 mg DAILY PO Last administered on 09/04/18 08: 43; Admin Dose 220 MG; Start 08/17/18 at 09:00 Eye Lubricant (Artificial Tears Oph) 1 drop Q6H PRN BOTH EYES DRY EYES Last administered on 08/19/18 00:00; Admin Dose 1 DROP; Start 08/16/18 at 23:30 Methylnaltrexone [place] (Relistor) 12 mg Q48H SC Last administered on 09/04/18 08:43; Admin Dose 12 MG; Start 08/17/18 at 09:30 Miscellaneous Information 1 ea NOTE XX ; Start 08/17/18 at 10:30 Glucose (Glutose) 15 gm Q15M PRN PO DECREASED GLUCOSE; Start 08/17/18 at 10:30 Glucose (Glutose) 22.5 gm Q15M PRN PO DECREASED GLUCOSE; Start 08/17/18 at 10:30 Dextrose (D50w Syringe) 25 ml Q15M PRN IV DECREASED GLUCOSE; Start 08/17/18 at 10:30 Dextrose (D50w Syringe) 50 ml Q15M PRN IV DECREASED GLUCOSE; Start 08/17/18 at 10:30 Glucagon (Glucagen) 1 mg Q15M PRN IM DECREASED GLUCOSE; Start 08/17/18 at 10:30 Glucose (Glutose) 15 gm Q15M PRN BUCCAL DECREASED GLUCOSE; Start 08/17/18 at 10:30 Hydromorphone HCl (Dilaudid) 2 mg Q3 PRN IV SEVERE PAIN LEVEL 7-10 Last administered on 09/04/18 11:52; Admin Dose 2 MG; Start 08/17/18 at 14:30 Lorazepam (Ativan) 1 mg Q6H PRN IV Anxiety Last administered on 09/04/18 04:20; Admin Dose 1 MG; Start 08/18/18 at 14:30 Zolpidem Tartrate (Ambien) 10 mg QHS PRN PO INSOMNIA Last administered on 09/03/18 23:12; Admin Dose 10 MG; Start 08/20/18 at 11:30 Phenol (Cepastat Lozenge) 1 lozenge Q1H PRN MT THROAT PAIN Last administered on 09/03/18 06:31; Admin Dose 1 LOZENGE; Start 08/21/18 at 11:00 Pantoprazole (Protonix Tab) 40 mg BID PO Last administered on 09/04/18 08:43; Admin Dose 40 MG; Start 08/25/18 at 09:00 Diphenhydramine HCl (Benadryl) 50 mg Q6H PRN IV ITCHING Last administered on 09/04/18 08:43; Admin Dose 50 MG; Start 08/26/18 at 21:00 Dextrose 1,000 ml @ 50 mls/hr Q20H IV Last administered on 09/03/18 16:21; Admin Dose 50 MLS/HR; Start 08/31/18 at 08:00 Acetaminophen (Tylenol Tab) 500 mg Q6H PRN PO MILD PAIN(1-3)OR ELEVATED TEMP; Start 09/01/18 at 18:30 Lidocaine (Xylocaine (Viscous)) 15 ml QID PRN PO Pain in the mouth; Start 09/02/18 at 10:30 Cefepime HCl 50 ml @ 100 mls/hr Q12 IVPB Last administered on 09/04/18 08:43; Admin Dose 100 MLS/HR; Start 09/03/18 at 10:30 Daptomycin 500 mg/ Sodium Chloride 100 ml @ 200 mls/hr Q24H IVPB Last administered on 09/03/18 17:19; Admin Dose 200 MLS/HR; Start 09/03/18 at 16:00 SULEMA WRIGHT Sep 04, 2018 12:22
[2018-09-04] MEDS: DEXTROSE 5% 1,000 ML IV SCH (13:08)
[2018-09-04 14:08] VITALS: BP 132/71; PULSE 84; RESP 16
--- NOTE | 2018-09-04 16:59 | RADRPT ---
Echocardiogram Report Patient Name: TAURUS SUAREZPatient ID: [id number] : 1965 (52y 10m)Study Date: 09/04/2018 12:06:41 PM Gender: FAccession #: [id number] Tech: Rachel Yates [facility] Location: [facility] Ref.Physician: SUZANNE STEVENSON Height(Cm): BSA: Weight(Kg): Quality: AdequateOrder Physician: Adryan Andino Account #: Procedures: Echocardiographic Report: Transthoracic echocardiogram with complete 2D, M-Mode, and doppler examination. Indications: Evaluate for any vegetation. Measurements: 2D/M Mode Doppler Measurement Value Normal Range Measurement Value Normal Range LVIDd 2D 3.7 [ 3.8 - 5.2 ] cm AV Peak Pasha 1.5 [ 100.0 - 170.0 ] cm/sec LVIDs 2D 2.6 [ 2.2 - 3.5 ] cm AV Peak PG 9.0 [ 2.0 - 9.0 ] mmHg LVPWd 2D 1.0 [ 0.6 - 0.9 ] cm LVOT Peak Pasha 1.1 [ 70.0 - 110.0 ] cm/sec IVSd 2D 0.8 [ 0.6 - 0.9 ] cm LVOT Peak PG 5.0 [ 2.0 - 6.0 ] mmHg AoR Diam 2D 2.4 [ 2.3 - 3.1 ] cm MV E Peak Pasha 0.6 [ 60.0 - 130.0 ] cm/sec EDV 2D 59.6 [ 46.0 - 106.0 ] ml MV A Peak Pasha 0.6 [ 100.0 - 120.0 ] cm/sec ESV 2D 24.6 [ 14.0 - 42.0 ] ml MV E/A 1.0 [ 0.8 - 1.5 ] ratio EF 2D 58.7 [ 54.0 - 74.0 ] percent MV Decel Time 137 [ 104 - 258 ] msec LA Dimen 2D 3.3 [ 2.7 - 3.8 ] cm Lat E` Pasha 0.1 [ 10.0 - 15.0 ] cm/sec Lateral E/E` 4.7 [ 1.0 - 2.0 ] ratio Med E` Pasha 0.1 cm/sec MV E/A 1.0 [ 0.8 - 1.5 ] ratio TR Peak Pasha 2.3 [ 100.0 - 280.0 ] cm/sec TR Peak PG 21.0 mmHg RVSP 21.0 [ 10.0 - 36.0 ] mmHg RA Pressure 3.0 mmHg Findings: Left Ventricle: Normal left ventricular systolic function. Normal left ventricular cavity size. Normal left ventricular wall thickness. Ejection fraction is visually estimated at 55-60 %. Tissue Doppler/Mitral Doppler indices are consistent with impaired relaxation (Stage I diastolic dysfunction). Right Ventricle: Normal right ventricular size. Normal right ventricular systolic function. Left Atrium: The left atrium is normal in size. Right Atrium: The right atrium is normal in size. Mitral Valve: Normal appearance of the mitral valve. Trace mitral regurgitation. Aortic Valve: Normal appearance of the aortic valve. No aortic regurgitation. Tricuspid Valve: Normal appearance of the tricuspid valve. There is trace to mild tricuspid regurgitation. Pulmonic Valve: Normal pulmonic valve appearance. Pericardium: Normal pericardium with no significant pericardial effusion. Aorta: Normal aortic root. IVC: Normal size and normal respiratory collapse consistent with normal right atrial pressure. Conclusions: Normal left ventricular systolic function. Normal left ventricular cavity size. Normal left ventricular wall thickness. Ejection fraction is visually estimated at 55-60 %. Tissue Doppler/Mitral Doppler indices are consistent with impaired relaxation (Stage I diastolic dysfunction). ). Normal appearance of the mitral valve. Trace mitral regurgiutation. Normal appearance of the tricuspid valve. There is trace to mild tricuspid regurgitation. Electronically Signed By: Nando Hubbard 2018-09-04 16:58:24 PST
[2018-09-04] MEDS: DAPTOMYCIN 500 MG in SOD CHLORIDE 0.9% 100 ML IVPB SCH (17:38)
[2018-09-04 20:00] VITALS: BP 119/62; PULSE 82; RESP 18
[2018-09-04] MEDS: ZOLPIDEM 5 MG TAB PO PRN (20:44)
[2018-09-05] MEDS: HYDROmorphONE 2 MG/ML SYG IV PRN ×8 (00:48→23:11)
[2018-09-05 02:00] VITALS: BP 111/59; RESP 18
[2018-09-05] MEDS: LORAZEPAM 2 MG INJ IV PRN ×3 (02:34→18:21)
[2018-09-05] MEDS: DIPHENHYDRAMINE 50 MG INJ IV PRN ×4 (04:06→23:08)
[2018-09-05] MEDS: LEVOTHYROXINE 50 MCG TAB PO SCH (06:58)
[2018-09-05 07:39] VITALS: BP 118/61; PULSE 82; RESP 16
--- NOTE | 2018-09-05 07:55 | PN ---
Date/Time of Note Date/Time of Note DATE: 09/05/18 TIME: 07:54 Assessment/Plan VTE Prophylaxis Risk score (from Ns)>0 risk: 10 SCD applied (from [facility] [place]): No SCD contraindicated: other Pharmacological prophylaxis: NA/contraindicated Pharm contraindication: bleeding Lines/Catheters IV Catheter Type (from [facility]): PICC Line Central line still needed: Yes Urinary Cath still in place: No Assessment/Plan Hospital Course SUBJECTIVE: Denies any abdominal pain or diarrhea. Reports hemoptysis. OBJECTIVE: Physical Exam General: Adequately build 52 year-old female lying in bed in no apparent distress. HEENT: Normocephalic, atraumatic. Eyes: Anicteric sclerae, conjunctivae clear. E NT: Nasal septum midline, oral mucosa moist. Ulcer in the frenulum linguae. Neck supple, no JVD noticed. Respiratory: Bilaterally clear breath sounds. No use of accessory muscles of respiration. No adventitious breath sounds. Cardiovascular: S1, S2 heard. No murmurs or gallops. Abdomen: Soft, nondistended, nontender. Bowel sounds positive in all 4 quadrants. Genitourinary: Deferred. Extremities: No cyanosis, no clubbing, no edema. Peripheral pulses palpable. Neurologic: Cranial nerves II through XII grossly intact. The patient is awake, alert, and oriented. Skin: Normal skin turgor. No skin rashes. 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 The patient's CT scan of the abdomen and pelvis was showing colitis involving the ascending, transverse, descending colon. The patient also had underlying leukocytosis and bandemia. Therefore, the patient was admitted to inpatient setting for further treatment and evaluation. 1. Acute pancolitis. -Stool studies showing Giardia. S/P Flagyl (last day 08/21/2018) -Being followed by gastroenterology and ID. -Colonoscopy on 08/17/2018 showed patchy colitis. 2. Fevers with coagulase-negative Staphylococcus bacteremia on 09/01/2018. - Stenotrophomonas maltophilia bacteremia on 09/03/2018. -The patient is allergic to vancomycin. -Started the patient on daptomycin on 09/02/2018. -Start the patient on cefepime on 09/03/2018. -2D echocardiogram negative for any cardiac vegetation. 3. 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 -No evidence or documented history of Hodgkin's lymphoma as per oncology. 4. History of PE. -Status post IVC filter placement. 5. Anemia. -Microcytic and hypochromic. -Monitor H&H closely. -Stool for OB x1 positive. 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 6. Chronic pain syndrome. -Pain management as per pain team. 7. Hyperglycemia. -Etiology unclear. -Hemoglobin A1c within normal limits although this could be the glycosylated hemoglobin from the transfused (donor) blood. -The patient was told by her primary care provider previously that she is borderline diabetic. -Started the patient on sliding scale insulin on 08/17/2018. -Stopped the patients insulin SSI on 08/21/2018 once the hyperglycemia was resolved. 8. Hemoptysis on 08/18/2018. -Being followed by Pulmonology. -S/P bronchoscopy on 08/24/2018 that was unremarkable. -S/P esophagogastroduodenoscopy on 08/31/2018 that showed no evidence of any gastrointestinal bleed. -Status post ENT evaluation along with laryngoscopy on 09/01/2018 with no evidence of any bleeding site history of hemoptysis. 9. Ulcer of the frenulum linguae. -Continue management as per ID. 10. Fluids, electrolytes, and nutrition. -Soft diet. 11. DVT prophylaxis -Bilateral SCDs. 12. Plan. -Continue pain control. -Continue antimicrobials. -Await clinical improvement. -Mainly diet to be transferred to a tertiary care facility for further evaluation of hemoptysis that is unexplained. The patient was seen in collaboration with Dr. Montes. Result Diagram: 09/05/18 0609 09/04/18 0555 Results 24hrs Laboratory Tests Test 09/05/18 06:09 White Blood Count 3.5 L Red Blood Count 3.56 L Hemoglobin 8.7 L Hematocrit 27.5 L Mean Corpuscular Volume 77.2 L Mean Corpuscular Hemoglobin 24.4 L Mean Corpuscular Hemoglobin Concent 31.6 L Red Cell Distribution Width 18.5 H Platelet Count 219 # Mean Platelet Volume 11.0 H Immature Granulocytes % 0.900 H Neutrophils % 43.9 Lymphocytes % 37.8 Monocytes % 12.2 H Eosinophils % 4.3 Basophils % 0.9 Nucleated Red Blood Cells % 0.0 Immature Granulocytes # 0.030 Neutrophils # 1.6 Lymphocytes # 1.3 Monocytes # 0.4 Eosinophils # 0.2 Basophils # 0.0 Nucleated Red Blood Cells # 0.0 Phosphorus Level 4.8 Magnesium Level 2.1 Exam/Review of Systems Exam Vitals Vital Signs Date Temp Pulse Resp B/P (MAP) Pulse Ox O2 O2 Flow FiO2 Time Delivery Rate 09/05/18 98.1 82 16 118/61 100 07:39 (80) 09/04/18 Room Air 14:08 Intake and Output 09/04/18 09/04/18 09/05/18 1515:00 23:00 07:00 IntakeIntake Total 850 ml 600 ml 600 ml BalanceBalance 850 ml 600 ml 600 ml Results Results 24hrs Laboratory Tests Test 09/05/18 06:09 White Blood Count 3.5 L Red Blood Count 3.56 L Hemoglobin 8.7 L Hematocrit 27.5 L Mean Corpuscular Volume 77.2 L Mean Corpuscular Hemoglobin 24.4 L Mean Corpuscular Hemoglobin Concent 31.6 L Red Cell Distribution Width 18.5 H Platelet Count 219 # Mean Platelet Volume 11.0 H Immature Granulocytes % 0.900 H Neutrophils % 43.9 Lymphocytes % 37.8 Monocytes % 12.2 H Eosinophils % 4.3 Basophils % 0.9 Nucleated Red Blood Cells % 0.0 Immature Granulocytes # 0.030 Neutrophils # 1.6 Lymphocytes # 1.3 Monocytes # 0.4 Eosinophils # 0.2 Basophils # 0.0 Nucleated Red Blood Cells # 0.0 Phosphorus Level 4.8 Magnesium Level 2.1 Medications Medication Current Medications IV Flush (NS 3 ml) 3 ml PER PROTOCOL IV ; Start 08/13/18 at 20:00 Ondansetron HCl (Zofran Inj) 4 mg Q6H PRN IV NAUSEA AND/OR VOMITING Last administered on 08/29/18at 09:30; Admin Dose 4 MG; Start 08/13/18 at 20:00 Duloxetine HCl (Cymbalta) 60 mg DAILY PO Last administered on 09/04/18at 08:43; Admin Dose 60 MG; Start 08/14/18 at 09:00 Levothyroxine Sodium (Synthroid) 50 mcg BEFORE BREAKFAST PO Last administered on 09/05/18 06:58; Admin Dose 50 MCG; Start 08/15/18 at 07:00 Alteplase, Recombinant (Cathflo (Activase)) 2 mg MAY REPEAT X1 PRN CATHETER IF CATHETER REMAINS OCCULUDED Last administered on 08/26/18 23:34; Admin Dose 2 MG; Start 08/15/18 at 06:00 Cholecalciferol (Vitamin D) 2,000 unit DAILY PO Last administered on 09/04/18 08:43; Admin Dose 2,000 UNIT; Start 08/17/18 at 09:00 Zinc Sulfate (Zinc Sulfate) 220 mg DAILY PO Last administered on 09/04/18 08:43; Admin Dose 220 MG; Start 08/17/18 at 09:00 Eye Lubricant (Artificial Tears Oph) 1 drop Q6H PRN BOTH EYES DRY EYES Last administered on 08/19/18 00:00; Admin Dose 1 DROP; Start 08/16/18 at 23:30 Methylnaltrexone [place] (Relistor) 12 mg Q48H SC Last administered on 09/04/18 08:43; Admin Dose 12 MG; Start 08/17/18 at 09:30 Miscellaneous Information 1 ea NOTE XX ; Start 08/17/18 at 10:30 Glucose (Glutose) 15 gm Q15M PRN PO DECREASED GLUCOSE; Start 08/17/18 at 10:30 Glucose (Glutose) 22.5 gm Q15M PRN PO DECREASED GLUCOSE; Start 08/17/18 at 10:30 Dextrose (D50w Syringe) 25 ml Q15M PRN IV DECREASED GLUCOSE; Start 08/17/18 at 10:30 Dextrose (D50w Syringe) 50 ml Q15M PRN IV DECREASED GLUCOSE; Start 08/17/18 at 10:30 Glucagon (Glucagen) 1 mg Q15M PRN IM DECREASED GLUCOSE; Start 08/17/18 at 10:30 Glucose (Glutose) 15 gm Q15M PRN BUCCAL DECREASED GLUCOSE; Start 08/17/18 at 10:30 Hydromorphone HCl (Dilaudid) 2 mg Q3 PRN IV SEVERE PAIN LEVEL 7-10 Last administered on 09/05/18 07:27; Admin Dose 2 MG; Start 08/17/18 at 14:30 Lorazepam (Ativan) 1 mg Q6H PRN IV Anxiety Last administered on 09/05/18 02:34; Admin Dose 1 MG; Start 08/18/18 at 14:30 Zolpidem Tartrate (Ambien) 10 mg QHS PRN PO INSOMNIA Last administered on 09/04/18 20:44; Admin Dose 10 MG; Start 08/20/18 at 11:30 Phenol (Cepastat Lozenge) 1 lozenge Q1H PRN MT THROAT PAIN Last administered on 09/03/18 06:31; Admin Dose 1 LOZENGE; Start 08/21/18 at 11:00 Pantoprazole (Protonix Tab) 40 mg BID PO Last administered on 09/04/18 20:37; Admin Dose 40 MG; Start 08/25/18 at 09:00 Diphenhydramine HCl (Benadryl) 50 mg Q6H PRN IV ITCHING Last administered on 09/05/18 04:06; Admin Dose 50 MG; Start 08/26/18 at 21:00 Dextrose 1,000 ml @ 50 mls/hr Q20H IV Last administered on 09/04/18 13:08; Admin Dose 50 MLS/HR; Start 08/31/18 at 08:00 Acetaminophen (Tylenol Tab) 500 mg Q6H PRN PO MILD PAIN(1-3)OR ELEVATED TEMP; Start 09/01/18 at 18:30 Lidocaine (Xylocaine (Viscous)) 15 ml QID PRN PO Pain in the mouth; Start 09/02/18 at 10:30 Cefepime HCl 50 ml @ 100 mls/hr Q12 IVPB Last administered on 09/04/18 20:38; Admin Dose 100 MLS/HR; Start 09/03/18 at 10:30 Daptomycin 500 mg/ Sodium Chloride 100 ml @ 200 mls/hr Q24H IVPB Last administered on 09/04/18 17:38; Admin Dose 200 MLS/HR; Start 09/03/18 at 16:00 SUZANNE STEVENSON NP Sep 05, 2018 07:54
[2018-09-05] MEDS: DEXTROSE 5% 1,000 ML IV SCH (08:37)
[2018-09-05] MEDS: PANTOPRAZOLE (EC) 40 MG TAB PO SCH ×2 (08:37→21:08)
[2018-09-05] MEDS: CEFEPIME 1GM/50 ML (PMX) 50 ML IVPB SCH (08:37)
[2018-09-05] MEDS: ZINC SULFATE 220 MG CAP PO SCH (08:37)
[2018-09-05] MEDS: CHOLECALCIFEROL 2,000 UNIT CAP PO SCH (08:37)
[2018-09-05] MEDS: DULOXETINE 30 MG CAP DR PO SCH (08:37)
--- NOTE | 2018-09-05 10:44 | CONS ---
Assessment/Plan Assessment/Plan Hospital Course (Demo Recall) sepsis, bloodstream infection - Bacteremia: Blood cultures 09/01/18 grew Coag Neg Staph and Stenotrophomonas maltophilia, Repeat blood cultures 09/02/18 grew Stenotrophomonas maltophilia and Coag Neg Staph; repeat blood cultures 09/04/18 NGTD - H/o "bacteremia due to enterococci" according to progress notes at [facility], but the actual microbiology report indicated blood culture was positive for ESBL+E. coli - h/o fungemia due to rhonda glabrata, sensitive to fluconazole and to micafungin/caspofungin at [facility] - possible early SIRS vs sepsis - TTE done 09/04/18 showed no mention of valvular vegetations; EF 55-60% pulm - persistent hemoptysis of unknown etiology: Pt reports negative PPD last month at [facility]. - according to the microbiology report at [facility], Pt had ESBL+E. coli in her respiratory culture. Sputum cultures for AFB and fungi were negative at 8 weeks and at 4 weeks respectively at [facility] - Pt had negative bronchoscopy in 05/2018 at [facility], another at [facility] in 2017, and on 08/25/2018 at [facility] (no e/o bronchial airway bleeding according to Dr. Bello - Numerous tiny lung nodules, increased in number from the chest CT dated May 22, 2018, with largest measuring 0.3 cm in the left apex - Rhonda albicans in sputum cx on 08/28/2018 - likely colonizer - so far: aspergillus antibody not detected, HIV negative, coccidioidomycosis serology negative, TB Quant Gold negative, 1,3 beta d glucan negative, procalc 09/01/18 was 0.30 GI - Delgado-colitis per CT - S/p sigmoidoscopy with biopsy 08/17/2018; path showed no e/o colitis or malignancy from transverse colon and rectum biopsies - S/p bloody diarrhea d/t Giardia; Pt took metronidazole for Giardia (08/14/2018-08/21/2018) in 07/2018. - H/o C diff toxin negative PCR positive status at [facility]. Took a course of Fidaxomyxin x 10 days. C. diff was negative on 08/14/2018 at [facility] - H/o cholecystectomy heme/oncology - S/p CT guided bone marrow aspiration and biopsy 08/20/2018 - Microcytic anemia requiring PRBC d/t acute blood loss - Electrophoresis 08/19/18 showed: Evaluation suggests beta thalassemia trait with anemia. Iron deficiency must be ruled out. - H/o BUE and RLE DVT, s/p IVC filter in January 2018 - H/o Hodgkin lymphoma diagnosed in 2006 - H/o thyroid CA diagnosed in 2005, s/p resection, chemo and XRT - IVC filter placement - +Family hx of cancer (father of stomach CA, mother of lymphoma, paternal uncle had breast CA and 12 yo daughter has h/o brain tumor s/p surgery and resulting blindness) , renal - h/o UTI due to ESBL+E. coli other conditions - a painful ulcer at frenulum, recurrent. According to Pt, topical steroid would worsen the pain. HIV negative, RPR non reactive, herpes 1 and 2 by PCR not detected; s/p trial of PO valacyclovir (08/27/2018-09/01/2018) - s/p bilateral conjunctivitis - improved s/p Cipro eye drops (08/18/18-08/23/18) - Hypothyroidism - HLD - Hypokalemia - OA - depression/anxiety - H/o x2 - Allergy to PCN and vancomycin (reaction unknown) Recommendations: - F/u repeat blood cultures 09/04/18 (NGTD) - Continue Daptomycin (clarify allergy to vanco) and Cefepime for now (09/03/18 - ) - Serial CK level (<20 on 09/03/2018) while on Dapto - We recommend DC PICC - Trend fever curve - S/p PO levofloxacin (08/24/2018-08/28/2018) for probable UTI Management d/w patient and with Dr. Hansen. Thank you Consultation Date/Type/Reason Admit Date/Time Aug 13, 2018 at 17:22 Initial Consult Date 08/19/18 Type of Consult ID Requesting Provider: SHAQUILLE HARRIS Date/Time of Note DATE: 09/05/18 TIME: 10:36 24 HR Interval Summary Free Text/Dictation Per d/w patient, still c/o hemoptysis and shows me two cups with bloody sputum inside. C/o sob associated with her cough. C/o chills overnight. Otherwise denied ROS. She is happy she was able to eat a baked potato yesterday. Patient has remained afebrile with no acute issues reported by nursing. Exam/Review of Systems Exam Vitals Vital Signs Date Temp Pulse Resp B/P (MAP) Pulse Ox O2 O2 Flow FiO2 Time Delivery Rate 09/05/18 98.1 82 16 118/61 100 07:39 (80) 09/04/18 Room Air 14:08 Intake and Output 09/04/18 09/04/18 09/05/18 1515:00 23:00 07:00 IntakeIntake Total 850 ml 600 ml 600 ml BalanceBalance 850 ml 600 ml 600 ml Exam Constitutional: alert, oriented, well developed Psych: no complaints, nl mood/affect Head: normocephalic, atraumatic Eyes: nl conjunctiva, nl lids, nl sclera ENMT: nl external ears & nose, nl nasal mucosa & septum, mucosa pink and moist (with a white ulcer of the frenulum linguae) Neck: supple, non-tender Respiratory: normal air movement, crackles/rales, other (hemoptysis noted in cups at bedside) Cardiovascular: regular rate and rhythm, nl pulses Gastrointestinal: soft, non-tender; No distended Genitourinary - Female: other (no f/c) Musculoskeletal: nl extremities to inspection; No swelling Extremities: normal pulses Neurological: nl mental status, nl speech Skin: nl turgor; No rash or lesions Results Result Diagram: 09/05/18 0609 09/05/18 0609 Results 24hrs Laboratory Tests Test 09/05/18 06:09 White Blood Count 3.5 L Red Blood Count 3.56 L Hemoglobin 8.7 L Hematocrit 27.5 L Mean Corpuscular Volume 77.2 L Mean Corpuscular Hemoglobin 24.4 L Mean Corpuscular Hemoglobin Concent 31.6 L Red Cell Distribution Width 18.5 H Platelet Count 219 # Mean Platelet Volume 11.0 H Immature Granulocytes % 0.900 H Neutrophils % 43.9 Lymphocytes % 37.8 Monocytes % 12.2 H Eosinophils % 4.3 Basophils % 0.9 Nucleated Red Blood Cells % 0.0 Immature Granulocytes # 0.030 Neutrophils # 1.6 Lymphocytes # 1.3 Monocytes # 0.4 Eosinophils # 0.2 Basophils # 0.0 Nucleated Red Blood Cells # 0.0 Sodium Level 139 Potassium Level 3.8 Chloride Level 106 Carbon Dioxide Level 31 Anion Gap 2 #L Blood Urea Nitrogen 11 Creatinine 0.44 Est Glomerular Filtrat Rate mL/min > 60 Glucose Level 89 Calcium Level 9.0 Phosphorus Level 4.8 Magnesium Level 2.1 Imaging Imaging TTE 09/04/18 Conclusions: Normal left ventricular systolic function. Normal left ventricular cavity size. Normal left ventricular wall thickness. Ejection fraction is visually estimated at 55-60 %. Tissue Doppler/Mitral Doppler indices are consistent with impaired relaxation (Stage I diastolic dysfunction). Normal appearance of the mitral valve. Trace mitral regurgiutation. Normal appearance of the tricuspid valve. There is trace to mild tricuspid regurgitation. Medications Medication Current Medications IV Flush (NS 3 ml) 3 ml PER PROTOCOL IV ; Start 08/13/18 at 20:00 Ondansetron HCl (Zofran Inj) 4 mg Q6H PRN IV NAUSEA AND/OR VOMITING Last administered on 08/29/18 09:30; Admin Dose 4 MG; Start 08/13/18 at 20:00 Duloxetine HCl (Cymbalta) 60 mg DAILY PO Last administered on 09/05/18 08:37; Admin Dose 60 MG; Start 08/14/18 at 09:00 Levothyroxine Sodium (Synthroid) 50 mcg BEFORE BREAKFAST PO Last administered on 09/05/18 06:58; Admin Dose 50 MCG; Start 08/15/18 at 07:00 Alteplase, Recombinant (Cathflo (Activase)) 2 mg MAY REPEAT X1 PRN CATHETER IF CATHETER REMAINS OCCULUDED Last administered on 08/26/18 23:34; Admin Dose 2 MG; Start 08/15/18 at 06:00 Cholecalciferol (Vitamin D) 2,000 unit DAILY PO Last administered on 09/05/18 08:37; Admin Dose 2,000 UNIT; Start 08/17/18 at 09:00 Zinc Sulfate (Zinc Sulfate) 220 mg DAILY PO Last administered on 09/05/18 08:37; Admin Dose 220 MG; Start 08/17/18 at 09:00 Eye Lubricant (Artificial Tears Oph) 1 drop Q6H PRN BOTH EYES DRY EYES Last administered on 08/19/18 00:00; Admin Dose 1 DROP; Start 08/16/18 at 23:30 Methylnaltrexone [place] (Relistor) 12 mg Q48H SC Last administered on 09/04/18 08:43; Admin Dose 12 MG; Start 08/17/18 at 09:30 Miscellaneous Information 1 ea NOTE XX ; Start 08/17/18 at 10:30 Glucose (Glutose) 15 gm Q15M PRN PO DECREASED GLUCOSE; Start 08/17/18 at 10:30 Glucose (Glutose) 22.5 gm Q15M PRN PO DECREASED GLUCOSE; Start 08/17/18 at 10:30 Dextrose (D50w Syringe) 25 ml Q15M PRN IV DECREASED GLUCOSE; Start 08/17/18 at 10:30 Dextrose (D50w Syringe) 50 ml Q15M PRN IV DECREASED GLUCOSE; Start 08/17/18 at 10:30 Glucagon (Glucagen) 1 mg Q15M PRN IM DECREASED GLUCOSE; Start 08/17/18 at 10:30 Glucose (Glutose) 15 gm Q15M PRN BUCCAL DECREASED GLUCOSE; Start 08/17/18 at 10:30 Hydromorphone HCl (Dilaudid) 2 mg Q3 PRN IV SEVERE PAIN LEVEL 7-10 Last administered on 09/05/18 07:27; Admin Dose 2 MG; Start 08/17/18 at 14:30 Lorazepam (Ativan) 1 mg Q6H PRN IV Anxiety Last administered on 09/05/18 02:34; Admin Dose 1 MG; Start 08/18/18 at 14:30 Zolpidem Tartrate (Ambien) 10 mg QHS PRN PO INSOMNIA Last administered on 09/04/18 20:44; Admin Dose 10 MG; Start 08/20/18 at 11:30 Phenol (Cepastat Lozenge) 1 lozenge Q1H PRN MT THROAT PAIN Last administered on 09/03/18 06:31; Admin Dose 1 LOZENGE; Start 08/21/18 at 11:00 Pantoprazole (Protonix Tab) 40 mg BID PO Last administered on 09/05/18 08:37; Admin Dose 40 MG; Start 08/25/18 at 09:00 Diphenhydramine HCl (Benadryl) 50 mg Q6H PRN IV ITCHING Last administered on 09/05/18 04:06; Admin Dose 50 MG; Start 08/26/18 at 21:00 Dextrose 1,000 ml @ 50 mls/hr Q20H IV Last administered on 09/05/18at 08:37; Admin Dose 50 MLS/HR; Start 08/31/18 at 08:00 Acetaminophen (Tylenol Tab) 500 mg Q6H PRN PO MILD PAIN(1-3)OR ELEVATED TEMP; Start 09/01/18 at 18:30 Lidocaine (Xylocaine (Viscous)) 15 ml QID PRN PO Pain in the mouth; Start 09/02/18 at 10:30 Cefepime HCl 50 ml @ 100 mls/hr Q12 IVPB Last administered on 09/05/18at 08:37; Admin Dose 100 MLS/HR; Start 09/03/18 at 10:30 Daptomycin 500 mg/ Sodium Chloride 100 ml @ 200 mls/hr Q24H IVPB Last administered on 09/04/18at 17:38; Admin Dose 200 MLS/HR; Start 09/03/18 at 16:00 LAST GARNER NP Sep 05, 2018 10:44
--- NOTE | 2018-09-05 13:52 | CONS ---
Assessment/Plan Assessment/Plan Assessment/Plan (Daily) h/o Lymphoma -thus far there are no lesions that can be biopsied and it does not appear she has active cancer #Anemia-hgb 8.7 today- sp 2 units of PRBC -Hgb Electrophoresis - confirms B- thalassemia trait with Anemia -pt has had microcytic anemia requiring transfusions for years -will order a bone marrow bx at this time- pending -anemia panel-anemia positive # Hemoptysis VS Hematemesis - GI follows - 08/31/2018- S/P esophagogastroduodenoscopy- showed no evidence of any gastrointestinal bleed. #Hemoptysis, recurrent. -s/p unremarkable bronchoscopy at [facility] -s/p unremarkable flexible laryngoscopy 02/05/17 at [facility] -CT Chest pulmonary nodules are noted but are too small to biopsy -ID workup pending for pulmonary nodules- Numerous tiny lung nodules, increased in number from the chest CT dated May 22, 2018, with largest measuring 0.3 cm in the left apex - 02/2018- negative TB workup -08/21/18-CT Chest Angio- no new changes. will do Follow-up CT in X 3-4 months to insure stability as recommended - 08/24/18- Repeat bronchoscopy - wnl - Given her platelets and coag panel are wnl; Bronchoscopy is wnl #pancolitis. -Colonoscopy on 08/17/2018 showed patchy colitis. bx was negative -Stool positive for Giardia- pt on vancomycin and flagyl Patient seen in collaboration with Dr Brown. Dw Staff Consultation Date/Type/Reason Admit Date/Time Aug 13, 2018 at 17:22 Initial Consult Date 08/19/18 Type of Consult ONCOLOGY Reason for Consultation Hx Lymphoma Requesting Provider: SHAQUILLE HARRIS Date/Time of Note DATE: 09/05/18 TIME: 13:52 24 HR Interval Summary Free Text/Dictation - c/o cough blood on and off; ok now - 08/31/2018- S/P esophagogastroduodenoscopy- showed no evidence of any gastrointestinal bleed. - no new events reported last night Constitutional: requiring O2 Detailed Summary Eyes: no complaints ENT: no complaints Respiratory: cough (w/blood), shortness of breath Cardiovascular: no complaints Gastrointestinal: no complaints Genitourinary: no complaints Musculoskeletal: other (generelized weakness) Exam/Review of Systems Exam Vitals Vital Signs Date Temp Pulse Resp B/P (MAP) Pulse Ox O2 O2 Flow FiO2 Time Delivery Rate 09/05/18 98.1 82 16 118/61 100 07:39 (80) 09/04/18 Room Air 14:08 Intake and Output 09/04/18 09/04/18 09/05/18 1515:00 23:00 07:00 IntakeIntake Total 850 ml 600 ml 600 ml BalanceBalance 850 ml 600 ml 600 ml Constitutional: alert, oriented, well developed Psych: no complaints Eyes: EOMI, nl lids, nl sclera ENMT: nl external ears & nose Neck: non-tender Respiratory: crackles/rales (at bases bilaterally), diminished breath sounds Cardiovascular: nl pulses, other (s1s2) Gastrointestinal: soft, non-tender Musculoskeletal: nl extremities to inspection Extremities: normal pulses Neurological: nl speech, other (alert/reponsive) Lymph: nontender Results Result Diagram: 09/05/18 0609 09/05/18 0609 Results 24hrs Laboratory Tests Test 09/05/18 06:09 White Blood Count 3.5 L Red Blood Count 3.56 L Hemoglobin 8.7 L Hematocrit 27.5 L Mean Corpuscular Volume 77.2 L Mean Corpuscular Hemoglobin 24.4 L Mean Corpuscular Hemoglobin Concent 31.6 L Red Cell Distribution Width 18.5 H Platelet Count 219 # Mean Platelet Volume 11.0 H Immature Granulocytes % 0.900 H Neutrophils % 43.9 Lymphocytes % 37.8 Monocytes % 12.2 H Eosinophils % 4.3 Basophils % 0.9 Nucleated Red Blood Cells % 0.0 Immature Granulocytes # 0.030 Neutrophils # 1.6 Lymphocytes # 1.3 Monocytes # 0.4 Eosinophils # 0.2 Basophils # 0.0 Nucleated Red Blood Cells # 0.0 Sodium Level 139 Potassium Level 3.8 Chloride Level 106 Carbon Dioxide Level 31 Anion Gap 2 #L Blood Urea Nitrogen 11 Creatinine 0.44 Est Glomerular Filtrat Rate mL/min > 60 Glucose Level 89 Calcium Level 9.0 Phosphorus Level 4.8 Magnesium Level 2.1 Medications Medication Current Medications IV Flush (NS 3 ml) 3 ml PER PROTOCOL IV ; Start 08/13/18 at 20:00 Ondansetron HCl (Zofran Inj) 4 mg Q6H PRN IV NAUSEA AND/OR VOMITING Last administered on 08/29/18 09:30; Admin Dose 4 MG; Start 08/13/18 at 20:00 Duloxetine HCl (Cymbalta) 60 mg DAILY PO Last administered on 09/05/18 08:37; Admin Dose 60 MG; Start 08/14/18 at 09:00 Levothyroxine Sodium (Synthroid) 50 mcg BEFORE BREAKFAST PO Last administered on 09/05/18 06:58; Admin Dose 50 MCG; Start 08/15/18 at 07:00 Alteplase, Recombinant (Cathflo (Activase)) 2 mg MAY REPEAT X1 PRN CATHETER IF CATHETER REMAINS OCCULUDED Last administered on 08/26/18 23:34; Admin Dose 2 MG; Start 08/15/18 at 06:00 Cholecalciferol (Vitamin D) 2,000 unit DAILY PO Last administered on 09/05/18 08:37; Admin Dose 2,000 UNIT; Start 08/17/18 at 09:00 Zinc Sulfate (Zinc Sulfate) 220 mg DAILY PO Last administered on 09/05/18 08:37; Admin Dose 220 MG; Start 08/17/18 at 09:00 Eye Lubricant (Artificial Tears Oph) 1 drop Q6H PRN BOTH EYES DRY EYES Last administered on 08/19/18 00:00; Admin Dose 1 DROP; Start 08/16/18 at 23:30 Methylnaltrexone [place] (Relistor) 12 mg Q48H SC Last administered on 09/04/18 08:43; Admin Dose 12 MG; Start 08/17/18 at 09:30 Miscellaneous Information 1 ea NOTE XX ; Start 08/17/18 at 10:30 Glucose (Glutose) 15 gm Q15M PRN PO DECREASED GLUCOSE; Start 08/17/18 at 10:30 Glucose (Glutose) 22.5 gm Q15M PRN PO DECREASED GLUCOSE; Start 08/17/18 at 10:30 Dextrose (D50w Syringe) 25 ml Q15M PRN IV DECREASED GLUCOSE; Start 08/17/18 at 10:30 Dextrose (D50w Syringe) 50 ml Q15M PRN IV DECREASED GLUCOSE; Start 08/17/18 at 10:30 Glucagon (Glucagen) 1 mg Q15M PRN IM DECREASED GLUCOSE; Start 08/17/18 at 10:30 Glucose (Glutose) 15 gm Q15M PRN BUCCAL DECREASED GLUCOSE; Start 08/17/18 at 10:30 Hydromorphone HCl (Dilaudid) 2 mg Q3 PRN IV SEVERE PAIN LEVEL 7-10 Last administered on 09/05/18 13:33; Admin Dose 2 MG; Start 08/17/18 at 14:30 Lorazepam (Ativan) 1 mg Q6H PRN IV Anxiety Last administered on 09/05/18 12:00; Admin Dose 1 MG; Start 08/18/18 at 14:30 Zolpidem Tartrate (Ambien) 10 mg QHS PRN PO INSOMNIA Last administered on 09/04/18 20:44; Admin Dose 10 MG; Start 08/20/18 at 11:30 Phenol (Cepastat Lozenge) 1 lozenge Q1H PRN MT THROAT PAIN Last administered on 09/03/18 06:31; Admin Dose 1 LOZENGE; Start 08/21/18 at 11:00 Pantoprazole (Protonix Tab) 40 mg BID PO Last administered on 09/05/18 08:37; Admin Dose 40 MG; Start 08/25/18 at 09:00 Diphenhydramine HCl (Benadryl) 50 mg Q6H PRN IV ITCHING Last administered on 09/05/18 10:34; Admin Dose 50 MG; Start 08/26/18 at 21:00 Dextrose 1,000 ml @ 50 mls/hr Q20H IV Last administered on 09/05/18 08:37; Admin Dose 50 MLS/HR; Start 08/31/18 at 08:00 Acetaminophen (Tylenol Tab) 500 mg Q6H PRN PO MILD PAIN(1-3)OR ELEVATED TEMP; Start 09/01/18 at 18:30 Lidocaine (Xylocaine (Viscous)) 15 ml QID PRN PO Pain in the mouth; Start 09/02/18 at 10:30 Cefepime HCl 50 ml @ 100 mls/hr Q12 IVPB Last administered on 09/05/18 08:37; Admin Dose 100 MLS/HR; Start 09/03/18 at 10:30 Daptomycin 500 mg/ Sodium Chloride 100 ml @ 200 mls/hr Q24H IVPB Last administered on 09/04/18 17:38; Admin Dose 200 MLS/HR; Start 09/03/18 at 16:00 SULEMA WRIGHT Sep 05, 2018 13:52
[2018-09-05 14:33] VITALS: BP 98/55; PULSE 80; RESP 16
--- NOTE | 2018-09-05 16:16 | CONS ---
Assessment/Plan Assessment/Plan Hospital Course (Demo Recall) EMR reviewed. 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 Care coordinated. Care directed. Dapto and Levaquin to complete 14 days from first negative bcx. consider gi evaluation. suspect bacteremia originating from colitis Consultation Date/Type/Reason Admit Date/Time Aug 13, 2018 at 17:22 Initial Consult Date 08/19/18 Requesting Provider: SHAQUILLE HARRIS Date/Time of Note DATE: 09/05/18 TIME: 16:15 Exam/Review of Systems Exam Vitals Vital Signs Date Temp Pulse Resp B/P (MAP) Pulse Ox O2 O2 Flow FiO2 Time Delivery Rate 09/05/18 98.2 80 16 98/55 (69) 100 14:33 09/04/18 Room Air 14:08 Intake and Output 09/04/18 09/04/18 09/05/18 1515:00 23:00 07:00 IntakeIntake Total 850 ml 600 ml 600 ml BalanceBalance 850 ml 600 ml 600 ml Results Result Diagram: 09/05/18 0609 09/05/18 0609 Results 24hrs Laboratory Tests Test 09/05/18 06:09 White Blood Count 3.5 L Red Blood Count 3.56 L Hemoglobin 8.7 L Hematocrit 27.5 L Mean Corpuscular Volume 77.2 L Mean Corpuscular Hemoglobin 24.4 L Mean Corpuscular Hemoglobin Concent 31.6 L Red Cell Distribution Width 18.5 H Platelet Count 219 # Mean Platelet Volume 11.0 H Immature Granulocytes % 0.900 H Neutrophils % 43.9 Lymphocytes % 37.8 Monocytes % 12.2 H Eosinophils % 4.3 Basophils % 0.9 Nucleated Red Blood Cells % 0.0 Immature Granulocytes # 0.030 Neutrophils # 1.6 Lymphocytes # 1.3 Monocytes # 0.4 Eosinophils # 0.2 Basophils # 0.0 Nucleated Red Blood Cells # 0.0 Sodium Level 139 Potassium Level 3.8 Chloride Level 106 Carbon Dioxide Level 31 Anion Gap 2 #L Blood Urea Nitrogen 11 Creatinine 0.44 Est Glomerular Filtrat Rate mL/min > 60 Glucose Level 89 Calcium Level 9.0 Phosphorus Level 4.8 Magnesium Level 2.1 Medications Medication Current Medications IV Flush (NS 3 ml) 3 ml PER PROTOCOL IV ; Start 08/13/18 at 20:00 Ondansetron HCl (Zofran Inj) 4 mg Q6H PRN IV NAUSEA AND/OR VOMITING Last administered on 08/29/18 09:30; Admin Dose 4 MG; Start 08/13/18 at 20:00 Duloxetine HCl (Cymbalta) 60 mg DAILY PO Last administered on 09/05/18 08:37; Admin Dose 60 MG; Start 08/14/18 at 09:00 Levothyroxine Sodium (Synthroid) 50 mcg BEFORE BREAKFAST PO Last administered on 09/05/18 06:58; Admin Dose 50 MCG; Start 08/15/18 at 07:00 Alteplase, Recombinant (Cathflo (Activase)) 2 mg MAY REPEAT X1 PRN CATHETER IF CATHETER REMAINS OCCULUDED Last administered on 08/26/18 23:34; Admin Dose 2 MG; Start 08/15/18 at 06:00 Cholecalciferol (Vitamin D) 2,000 unit DAILY PO Last administered on 09/05/18 08:37; Admin Dose 2,000 UNIT; Start 08/17/18 at 09:00 Zinc Sulfate (Zinc Sulfate) 220 mg DAILY PO Last administered on 09/05/18 08:37; Admin Dose 220 MG; Start 08/17/18 at 09:00 Eye Lubricant (Artificial Tears Oph) 1 drop Q6H PRN BOTH EYES DRY EYES Last administered on 08/19/18at 00:00; Admin Dose 1 DROP; Start 08/16/18 at 23:30 Methylnaltrexone [place] (Relistor) 12 mg Q48H SC Last administered on 09/04/18 08:43; Admin Dose 12 MG; Start 08/17/18 at 09:30 Miscellaneous Information 1 ea NOTE XX ; Start 08/17/18 at 10:30 Glucose (Glutose) 15 gm Q15M PRN PO DECREASED GLUCOSE; Start 08/17/18 at 10:30 Glucose (Glutose) 22.5 gm Q15M PRN PO DECREASED GLUCOSE; Start 08/17/18 at 10:30 Dextrose (D50w Syringe) 25 ml Q15M PRN IV DECREASED GLUCOSE; Start 08/17/18 at 10:30 Dextrose (D50w Syringe) 50 ml Q15M PRN IV DECREASED GLUCOSE; Start 08/17/18 at 10:30 Glucagon (Glucagen) 1 mg Q15M PRN IM DECREASED GLUCOSE; Start 08/17/18 at 10:30 Glucose (Glutose) 15 gm Q15M PRN BUCCAL DECREASED GLUCOSE; Start 08/17/18 at 1 0:30 Hydromorphone HCl (Dilaudid) 2 mg Q3 PRN IV SEVERE PAIN LEVEL 7-10 Last administered on 09/05/18 13:33; Admin Dose 2 MG; Start 08/17/18 at 14:30 Lorazepam (Ativan) 1 mg Q6H PRN IV Anxiety Last administered on 09/05/18 12:00; Admin Dose 1 MG; Start 08/18/18 at 14:30 Zolpidem Tartrate (Ambien) 10 mg QHS PRN PO INSOMNIA Last administered on 09/04/18 20:44; Admin Dose 10 MG; Start 08/20/18 at 11:30 Phenol (Cepastat Lozenge) 1 lozenge Q1H PRN MT THROAT PAIN Last administered on 09/03/18 06:31; Admin Dose 1 LOZENGE; Start 08/21/18 at 11:00 Pantoprazole (Protonix Tab) 40 mg BID PO Last administered on 09/05/18 08:37; Admin Dose 40 MG; Start 08/25/18 at 09:00 Diphenhydramine HCl (Benadryl) 50 mg Q6H PRN IV ITCHING Last administered on 09/05/18 10:34; Admin Dose 50 MG; Start 08/26/18 at 21:00 Dextrose 1,000 ml @ 50 mls/hr Q20H IV Last administered on 09/05/18 08:37; Admin Dose 50 MLS/HR; Start 08/31/18 at 08:00 Acetaminophen (Tylenol Tab) 500 mg Q6H PRN PO MILD PAIN(1-3)OR ELEVATED TEMP; Start 09/01/18 at 18:30 Lidocaine (Xylocaine (Viscous)) 15 ml QID PRN PO Pain in the mouth; Start 09/02/18 at 10:30 Daptomycin 500 mg/ Sodium Chloride 100 ml @ 200 mls/hr Q24H IVPB Last a dministered on 09/04/18 17:38; Admin Dose 200 MLS/HR; Start 09/03/18 at 16:00 Levofloxacin/ Dextrose 100 ml @ 100 mls/hr Q24H IVPB ; Start 09/05/18 at 16:30; Stop 09/19/18 at 16:29; Status UNV AUREA MEDINA MD Sep 05, 2018 16:16
[2018-09-05] MEDS: LEVOFLOXACIN 500MG/D5W (PMX) 100 ML IVPB SCH (17:03)
[2018-09-05] MEDS: DAPTOMYCIN 500 MG in SOD CHLORIDE 0.9% 100 ML IVPB SCH (18:14)
[2018-09-05 20:00] VITALS: BP 124/59; PULSE 74; RESP 18
[2018-09-05] MEDS: ZOLPIDEM 5 MG TAB PO PRN (21:10)
[2018-09-06] MEDS: LORAZEPAM 2 MG INJ IV PRN ×3 (00:50→20:20)
[2018-09-06 02:00] VITALS: BP 139/64; PULSE 85; RESP 18
[2018-09-06] MEDS: HYDROmorphONE 2 MG/ML SYG IV PRN ×7 (02:20→21:54)
[2018-09-06] MEDS: DEXTROSE 5% 1,000 ML IV SCH (05:04)
[2018-09-06] MEDS: DIPHENHYDRAMINE 50 MG INJ IV PRN ×3 (05:22→18:42)
[2018-09-06] MEDS: LEVOTHYROXINE 50 MCG TAB PO SCH (06:30)
[2018-09-06 08:28] VITALS: BP 118/61; PULSE 71; RESP 20
[2018-09-06] MEDS: DULOXETINE 30 MG CAP DR PO SCH (08:28)
[2018-09-06] MEDS: CHOLECALCIFEROL 2,000 UNIT CAP PO SCH (08:28)
[2018-09-06] MEDS: PANTOPRAZOLE (EC) 40 MG TAB PO SCH ×2 (08:29→20:20)
[2018-09-06] MEDS: ZINC SULFATE 220 MG CAP PO SCH (08:29)
--- NOTE | 2018-09-06 10:08 | CONS ---
Assessment/Plan Assessment/Plan Hospital Course (Demo Recall) sepsis, bloodstream infection - Bacteremia: Blood cultures 09/01/18 grew Coag Neg Staph and Stenotrophomonas maltophilia, Repeat blood cultures 09/02/18 grew Stenotrophomonas maltophilia and Coag Neg Staph; repeat blood cultures 09/04/18 NGTD - H/o "bacteremia due to enterococci" according to progress notes at [facility], but the actual microbiology report indicated blood culture was positive for ESBL+E. coli - h/o fungemia due to rhonda glabrata, sensitive to fluconazole and to micafungin/caspofungin at [facility] - possible early SIRS vs sepsis - TTE done 09/04/18 showed no mention of valvular vegetations; EF 55-60% pulm - persistent hemoptysis of unknown etiology: Pt reports negative PPD last month at [facility]. - according to the microbiology report at [facility], Pt had ESBL+E. coli in her respiratory culture. Sputum cultures for AFB and fungi were negative at 8 weeks and at 4 weeks respectively at [facility] - Pt had negative bronchoscopy in 05/2018 at [facility], another at [facility] in 2017, and on 08/25/2018 at [facility] (no e/o bronchial airway bleeding according to Dr. Bello - Numerous tiny lung nodules, increased in number from the chest CT dated May 22, 2018, with largest measuring 0.3 cm in the left apex - Rhonda albicans in sputum cx on 08/28/2018 - likely colonizer - so far: aspergillus antibody not detected, HIV negative, coccidioidomycosis serology negative, TB Quant Gold negative, 1,3 beta d glucan negative, procalc 09/01/18 was 0.30 GI - Delgado-colitis per CT - Diarrhea 09/06/18 - S/p sigmoidoscopy with biopsy 08/17/2018; path showed no e/o colitis or malignancy from transverse colon and rectum biopsies - S/p bloody diarrhea d/t Giardia; Pt took metronidazole for Giardia (08/14/2018- 08/21/2018) in 07/2018. - H/o C diff toxin negative PCR positive status at [facility]. Took a course of Fidaxomyxin x 10 days. C. diff was negative on 08/14/2018 at [facility] - H/o cholecystectomy heme/oncology - S/p CT guided bone marrow aspiration and biopsy 08/20/2018 - Microcytic anemia requiring PRBC d/t acute blood loss - Electrophoresis 08/19/18 showed: Evaluation suggests beta thalassemia trait with anemia. Iron deficiency must be ruled out. - H/o BUE and RLE DVT, s/p IVC filter in January 2018 - H/o Hodgkin lymphoma diagnosed in 2006 - H/o thyroid CA diagnosed in 2005, s/p resection, chemo and XRT - IVC filter placement - +Family hx of cancer (father of stomach CA, mother of lymphoma, paternal uncle had breast CA and 12 yo daughter has h/o brain tumor s/p surgery and resulting blindness) , renal - h/o UTI due to ESBL+E. coli - S/p PO levofloxacin (08/24/2018-08/28/2018) for probable UTI other conditions - a painful ulcer at frenulum, recurrent. According to Pt, topical steroid would worsen the pain. HIV negative, RPR non reactive, herpes 1 and 2 by PCR not detected; s/p trial of PO valacyclovir (08/27/2018-09/01/2018) - s/p bilateral conjunctivitis - improved s/p Cipro eye drops (08/18/18-08/23/18) - Hypothyroidism - HLD - Hypokalemia - OA - depression/anxiety - H/o x2 - Allergy to PCN and vancomycin (reaction unknown) Recommendations: - F/u repeat blood cultures 09/04/18 (NGTD) - Continue Daptomycin (clarify allergy to vanco) and Levaquin (09/05/18 - ) to complete 14 days from first negative blood culture; s/p Cefepime (09/03/18 - 09/05/18) - Serial CK level (<20 on 09/03/2018) while on Dapto - Consider GI evaluation - suspect bacteremia originating from colitis - We recommend DC PICC - Trend fever curve - Monitor for diarrhea Management d/w patient and with Dr. Hansen. Thank you Consultation Date/Type/Reason Admit Date/Time Aug 13, 2018 at 17:22 Initial Consult Date 08/19/18 Type of Consult ID Requesting Provider: SHAQUILLE HARRIS Date/Time of Note DATE: 09/06/18 TIME: 09:53 24 HR Interval Summary Free Text/Dictation Patient c/o diarrhea overnight and x3 thusfar today. Still c/o hemoptysis, cough, sob during cough. c/o chills all night. Denies fevers, night sweats, abd pain, n/v, dysuria, pruritis, rash, leg swelling. Patient has remained afebrile, wbc 4.4, repeat blood culture ngtd. Exam/Review of Systems Exam Vitals Vital Signs Date Temp Pulse Resp B/P (MAP) Pulse Ox O2 O2 Flow FiO2 Time Delivery Rate 09/06/18 98.1 71 20 118/61 99 Room Air 08:28 (80) Intake and Output 09/05/18 09/05/18 09/06/18 1515:00 23:00 07:00 IntakeIntake Total 700 ml 2225 ml 1225 ml OutputOutput Total 100 ml BalanceBalance 700 ml 2125 ml 1225 ml Exam Constitutional: alert, oriented, well developed Psych: no complaints, nl mood/affect Head: normocephalic, atraumatic Eyes: nl conjunctiva, nl lids, nl sclera ENMT: nl external ears & nose, nl nasal mucosa & septum, mucosa pink and moist (with an improved white ulcer of the frenulum linguae) Neck: supple, non-tender Respiratory: normal air movement, crackles/rales, other (a cup noted with bloody sputum inside) Cardiovascular: regular rate and rhythm, nl pulses Gastrointestinal: soft, non-tender; No distended Genitourinary - Female: other (no f/c) Musculoskeletal: nl extremities to inspection; No swelling Extremities: normal pulses Neurological: nl mental status, nl speech Skin: nl turgor; No rash or lesions Results Result Diagram: 09/06/1818 09/06/1818 Results 24hrs Laboratory Tests Test 09/06/18 05:18 White Blood Count 4.4 #L Red Blood Count 3.22 L Hemoglobin 7.8 L Hematocrit 24.9 L Mean Corpuscular Volume 77.3 L Mean Corpuscular Hemoglobin 24.2 L Mean Corpuscular Hemoglobin Concent 31.3 L Red Cell Distribution Width 18.2 H Platelet Count 190 Mean Platelet Volume 10.7 H Immature Granulocytes % 1.100 H Neutrophils % 57.8 Lymphocytes % 27.5 Monocytes % 9.7 Eosinophils % 3.2 Basophils % 0.7 Nucleated Red Blood Cells % 0.0 Immature Granulocytes # 0.050 H Neutrophils # 2.6 Lymphocytes # 1.2 Monocytes # 0.4 Eosinophils # 0.1 Basophils # 0.0 Nucleated Red Blood Cells # 0.0 Sodium Level 141 Potassium Level 3.5 Chloride Level 102 Carbon Dioxide Level 31 Anion Gap 8 Blood Urea Nitrogen 12 Creatinine 0.49 Est Glomerular Filtrat Rate mL/min > 60 Glucose Level 109 Calcium Level 9.3 Phosphorus Level 4.7 Magnesium Level 1.9 Medications Medication Current Medications IV Flush (NS 3 ml) 3 ml PER PROTOCOL IV ; Start 08/13/18 at 20:00 Ondansetron HCl (Zofran Inj) 4 mg Q6H PRN IV NAUSEA AND/OR VOMITING Last adm inistered on 08/29/18 09:30; Admin Dose 4 MG; Start 08/13/18 at 20:00 Duloxetine HCl (Cymbalta) 60 mg DAILY PO Last administered on 09/06/18 08:28; Admin Dose 60 MG; Start 08/14/18 at 09:00 Levothyroxine Sodium (Synthroid) 50 mcg BEFORE BREAKFAST PO Last administered on 09/06/18 06:30; Admin Dose 50 MCG; Start 08/15/18 at 07:00 Alteplase, Recombinant (Cathflo (Activase)) 2 mg MAY REPEAT X1 PRN CATHETER IF CATHETER REMAINS OCCULUDED Last administered on 08/26/18 23:34; Admin Dose 2 MG; Start 08/15/18 at 06:00 Cholecalciferol (Vitamin D) 2,000 unit DAILY PO Last administered on 09/06/18 08:28; Admin Dose 2,000 UNIT; Start 08/17/18 at 09:00 Zinc Sulfate (Zinc Sulfate) 220 mg DAILY PO Last administered on 09/06/18 08:29; Admin Dose 220 MG; Start 08/17/18 at 09:00 Eye Lubricant (Artificial Tears Oph) 1 drop Q6H PRN BOTH EYES DRY EYES Last administered on 08/19/18 00:00; Admin Dose 1 DROP; Start 08/16/18 at 23:30 Methylnaltrexone [place] (Relistor) 12 mg Q48H SC Last administered on 2/9/19at 08:43; Admin Dose 12 MG; Start 08/17/18 at 09:30 Miscellaneous Information 1 ea NOTE XX ; Start 08/17/18 at 10:30 Glucose (Glutose) 15 gm Q15M PRN PO DECREASED GLUCOSE; Start 08/17/18 at 10:30 Glucose (Glutose) 22.5 gm Q15M PRN PO DECREASED GLUCOSE; Start 08/17/18 at 10:30 Dextrose (D50w Syringe) 25 ml Q15M PRN IV DECREASED GLUCOSE; Start 08/17/18 at 10:30 Dextrose (D50w Syringe) 50 ml Q15M PRN IV DECREASED GLUCOSE; Start 08/17/18 at 10:30 Glucagon (Glucagen) 1 mg Q15M PRN IM DECREASED GLUCOSE; Start 08/17/18 at 10:30 Glucose (Glutose) 15 gm Q15M PRN BUCCAL DECREASED GLUCOSE; Start 08/17/18 at 10:30 Hydromorphone HCl (Dilaudid) 2 mg Q3 PRN IV SEVERE PAIN LEVEL 7-10 Last administered on 09/06/18 08:29; Admin Dose 2 MG; Start 08/17/18 at 14:30 Lorazepam (Ativan) 1 mg Q6H PRN IV Anxiety Last administered on 09/06/18 00:50; Admin Dose 1 MG; Start 08/18/18 at 14:30 Zolpidem Tartrate (Ambien) 10 mg QHS PRN PO INSOMNIA Last administered on 09/05/18 21:10; Admin Dose 10 MG; Start 08/20/18 at 11:30 Phenol (Cepastat Lozenge) 1 lozenge Q1H PRN MT THROAT PAIN Last administered on 09/03/18 06:31; Admin Dose 1 LOZENGE; Start 08/21/18 at 11:00 Pantoprazole (Protonix Tab) 40 mg BID PO Last administered on 09/06/18 08:29; Admin Dose 40 MG; Start 08/25/18 at 09:00 Diphenhydramine HCl (Benadryl) 50 mg Q6H PRN IV ITCHING Last administered on 09/06/18 05:22; Admin Dose 50 MG; Start 08/26/18 at 21:00 Dextrose 1,000 ml @ 50 mls/hr Q20H IV Last administered on 2/11/19at 05:04; Admin Dose 50 MLS/HR; Start 08/31/18 at 08:00 Acetaminophen (Tylenol Tab) 500 mg Q6H PRN PO MILD PAIN(1-3)OR ELEVATED TEMP; Start 09/01/18 at 18:30 Lidocaine (Xylocaine (Viscous)) 15 ml QID PRN PO Pain in the mouth; Start 09/02/18 at 10:30 Daptomycin 500 mg/ Sodium Chloride 100 ml @ 200 mls/hr Q24H IVPB Last administered on 09/05/18at 18:14; Admin Dose 200 MLS/HR; Start 09/03/18 at 16:00 Levofloxacin/ Dextrose 100 ml @ 100 mls/hr Q24H IVPB Last administered on 09/05/18at 17:03; Admin Dose 100 MLS/HR; Start 09/05/18 at 16:30; Stop 09/19/18 at 16:29 LAST GARNER NP Sep 06, 2018 10:07
[2018-09-06] MEDS: ALTEPLASE (CATHFLO) 2 MG INJ CATHETER PRN ×2 (11:26→11:28)
[2018-09-06] MEDS: METHYLNALTREXONE 12 MG/0.6 ML VIAL SC SCH (12:27)
[2018-09-06 14:28] VITALS: BP 107/55; PULSE 82; RESP 18
[2018-09-06] MEDS: CEPASTAT LOZENGE MT PRN (15:40)
[2018-09-06] MEDS: LEVOFLOXACIN 500MG/D5W (PMX) 100 ML IVPB SCH (15:40)
[2018-09-06] MEDS: DAPTOMYCIN 500 MG in SOD CHLORIDE 0.9% 100 ML IVPB SCH (17:33)
--- NOTE | 2018-09-06 17:45 | PN ---
Date/Time of Note Date/Time of Note DATE: 09/06/18 TIME: 17:40 Assessment/Plan VTE Prophylaxis Risk score (from [facility])>0 risk: 10 SCD applied (from [facility]): No SCD contraindicated: low risk/ambulating Pharmacological prophylaxis: NA/contraindicated Pharm contraindication: bleeding Lines/Catheters IV C[facility] Type (from [facility]): PICC Line Central line still needed: Yes Urinary Cath still in place: No Assessment/Plan Hospital Course A/P 1. Hemoptysis? bronch/ egd/ laryngoscopy 09/01 was completely nrml. From past PE? No pathological lesions or scars. . 2. H/o HL - chemo/ xrt; repeat chemo [facility]. Sp BmBx-appears negative. 3. Ho PE/ Dvt, ivc filter 4. Diarrhea/ giardia; Rxed; however occ diarrhea noted colon 08/17; patchy colitis 5. H//o c diff 6. H/o thyroid nodule? 5. UTI 6. H/o H pylori; EGD- 'ulcers' within the last year. Current EGD-ve. 7. Coagulase-negative Staph bacteremia 09/01. Stenotrophomonas maltophilia bacteremia 09/03: 2D -ve for veg. Source colon? 8. Anemia/thalassemia beta thalassemia trait; sp bone marrow 08/20 negative; spep: B thalassemia trait. 9.. Chronic pain syndrome. 10. Prediabetes? 11. Ulcer of the frenulum linguae. S: 08/23 feels ok; still bleeding. no dyspnea/ fever 08/24: Events noted still having hemoptysis. No hematuria 08/25: Hemoptysis again this morning? Patient denies any hematemesis or epistaxis 08/26: Recurrent hemoptysis this morning. No dyspnea fever 08/27: Still having hemoptysis? No hematochezia melena hematuria or epistaxis. No dyspnea fever. 08/28: Events noted. She is worried about her hemoptysis. 08/29: Still bringing out a lot of blood. Hemoptysis versus hematemesis. Chronic stable we will consult GI. 09/06: Intermittent hemoptysis. Now having diarrhea without any GI bleed. No fevers. O: vss PE No pallor Regular Clear Benign, nontender nondistended no RR G No edema Result Diagram: 09/06/1818 09/06/1818 Results 24hrs Laboratory Tests Test 09/06/18 05:18 White Blood Count 4.4 #L Red Blood Count 3.22 L Hemoglobin 7.8 L Hematocrit 24.9 L Mean Corpuscular Volume 77.3 L Mean Corpuscular Hemoglobin 24.2 L Mean Corpuscular Hemoglobin Concent 31.3 L Red Cell Distribution Width 18.2 H Platelet Count 190 Mean Platelet Volume 10.7 H Immature Granulocytes % 1.100 H Neutrophils % 57.8 Lymphocytes % 27.5 Monocytes % 9.7 Eosinophils % 3.2 Basophils % 0.7 Nucleated Red Blood Cells % 0.0 Immature Granulocytes # 0.050 H Neutrophils # 2.6 Lymphocytes # 1.2 Monocytes # 0.4 Eosinophils # 0.1 Basophils # 0.0 Nucleated Red Blood Cells # 0.0 Sodium Level 141 Potassium Level 3.5 Chloride Level 102 Carbon Dioxide Level 31 Anion Gap 8 Blood Urea Nitrogen 12 Creatinine 0.49 Est Glomerular Filtrat Rate mL/min > 60 Glucose Level 109 Calcium Level 9.3 Phosphorus Level 4.7 Magnesium Level 1.9 Exam/Review of Systems Exam Vitals Vital Signs Date Temp Pulse Resp B/P (MAP) Pulse Ox O2 O2 Flow FiO2 Time Delivery Rate 09/06/18 98.4 82 18 107/55 99 Room Air 14:28 (72) Intake and Output 09/05/18 09/05/18 09/06/18 1515:00 23:00 07:00 IntakeIntake Total 700 ml 2225 ml 1225 ml OutputOutput Total 100 ml BalanceBalance 700 ml 2125 ml 1225 ml Results Results 24hrs Laboratory Tests Test 09/06/18 05:18 White Blood Count 4.4 #L Red Blood Count 3.22 L Hemoglobin 7.8 L Hematocrit 24.9 L Mean Corpuscular Volume 77.3 L Mean Corpuscular Hemoglobin 24.2 L Mean Corpuscular Hemoglobin Concent 31.3 L Red Cell Distribution Width 18.2 H Platelet Count 190 Mean Platelet Volume 10.7 H Immature Granulocytes % 1.100 H Neutrophils % 57.8 Lymphocytes % 27.5 Monocytes % 9.7 Eosinophils % 3.2 Basophils % 0.7 Nucleated Red Blood Cells % 0.0 Immature Granulocytes # 0.050 H Neutrophils # 2.6 Lymphocytes # 1.2 Monocytes # 0.4 Eosinophils # 0.1 Basophils # 0.0 Nucleated Red Blood Cells # 0.0 Sodium Level 141 Potassium Level 3.5 Chloride Level 102 Carbon Dioxide Level 31 Anion Gap 8 Blood Urea Nitrogen 12 Creatinine 0.49 Est Glomerular Filtrat Rate mL/min > 60 Glucose Level 109 Calcium Level 9.3 Phosphorus Level 4.7 Magnesium Level 1.9 Medications Medication Current Medications IV Flush (NS 3 ml) 3 ml PER PROTOCOL IV ; Start 08/13/18 at 20:00 Ondansetron HCl (Zofran Inj) 4 mg Q6H PRN IV NAUSEA AND/OR VOMITING Last administered on 08/29/18 09:30; Admin Dose 4 MG; Start 08/13/18 at 20:00 Duloxetine HCl (Cymbalta) 60 mg DAILY PO Last administered on 09/06/18 08:28; Admin Dose 60 MG; Start 08/14/18 at 09:00 Levothyroxine Sodium (Synthroid) 50 mcg BEFORE BREAKFAST PO Last administered on 09/06/18 06:30; Admin Dose 50 MCG; Start 08/15/18 at 07:00 Alteplase, Recombinant (Cathflo (Activase)) 2 mg MAY REPEAT X1 PRN CATHETER IF CATHETER REMAINS OCCULUDED Last administered on 09/06/18 11:28; Admin Dose 2 MG; Start 08/15/18 at 06:00 Cholecalciferol (Vitamin D) 2,000 unit DAILY PO Last administered on 09/06/18 08:28; Admin Dose 2,000 UNIT; Start 08/17/18 at 09:00 Zinc Sulfate (Zinc Sulfate) 220 mg DAILY PO Last administered on 09/06/18 08:29; Admin Dose 220 MG; Start 08/17/18 at 09:00 Eye Lubricant (Artificial Tears Oph) 1 drop Q6H PRN BOTH EYES DRY EYES Last administered on 08/19/18 00:00; Admin Dose 1 DROP; Start 08/16/18 at 23:30 Methylnaltrexone [place] (Relistor) 12 mg Q48H SC Last administered on 09/06/18 12:27; Admin Dose 12 MG; Start 08/17/18 at 09:30 Miscellaneous Information 1 ea NOTE XX ; Start 08/17/18 at 10:30 Glucose (Glutose) 15 gm Q15M PRN PO DECREASED GLUCOSE; Start 08/17/18 at 10:30 Glucose (Glutose) 22.5 gm Q15M PRN PO DECREASED GLUCOSE; Start 08/17/18 at 10:30 Dextrose (D50w Syringe) 25 ml Q15M PRN IV DECREASED GLUCOSE; Start 08/17/18 at 10:30 Dextrose (D50w Syringe) 50 ml Q15M PRN IV DECREASED GLUCOSE; Start 08/17/18 at 10:30 Glucagon (Glucagen) 1 mg Q15M PRN IM DECREASED GLUCOSE; Start 08/17/18 at 10:30 Glucose (Glutose) 15 gm Q15M PRN BUCCAL DECREASED GLUCOSE; Start 08/17/18 at 10:30 Hydromorphone HCl (Dilaudid) 2 mg Q3 PRN IV SEVERE PAIN LEVEL 7-10 Last administered on 09/06/18 15:40; Admin Dose 2 MG; Start 08/17/18 at 14:30 Lorazepam (Ativan) 1 mg Q6H PRN IV Anxiety Last administered on 09/06/18 10:35; Admin Dose 1 MG; Start 08/18/18 at 14:30 Zolpidem Tartrate (Ambien) 10 mg QHS PRN PO INSOMNIA Last administered on 09/05/18 21:10; Admin Dose 10 MG; Start 08/20/18 at 11:30 Phenol (Cepastat Lozenge) 1 lozenge Q1H PRN MT THROAT PAIN Last administered on 09/06/18 15:40; Admin Dose 1 LOZENGE; Start 08/21/18 at 11:00 Pantoprazole (Protonix Tab) 40 mg BID PO Last administered on 09/06/18 08:29; Admin Dose 40 MG; Start 08/25/18 at 09:00 Diphenhydramine HCl (Benadryl) 50 mg Q6H PRN IV ITCHING Last administered on 09/06/18 12:28; Admin Dose 50 MG; Start 08/26/18 at 21:00 Dextrose 1,000 ml @ 50 mls/hr Q20H IV Last administered on 09/06/18 05:04; Admin Dose 50 MLS/HR; Start 08/31/18 at 08:00 Acetaminophen (Tylenol Tab) 500 mg Q6H PRN PO MILD PAIN(1-3)OR ELEVATED TEMP; Start 09/01/18 at 18:30 Lidocaine (Xylocaine (Viscous)) 15 ml QID PRN PO Pain in the mouth; Start 09/02/18 at 10:30 Daptomycin 500 mg/ Sodium Chloride 100 ml @ 200 mls/hr Q24H IVPB Last admi nistered on 09/06/18at 17:33; Admin Dose 200 MLS/HR; Start 09/03/18 at 16:00 Levofloxacin/ Dextrose 100 ml @ 100 mls/hr Q24H IVPB Last administered on 09/06/18at 15:40; Admin Dose 100 MLS/HR; Start 09/05/18 at 16:30; Stop 09/19/18 at 16:29 LEON CORONA MD Sep 06, 2018 17:45
[2018-09-06 20:40] VITALS: BP 107/54; PULSE 96; RESP 20
[2018-09-06] MEDS: ZOLPIDEM 5 MG TAB PO PRN (22:55)
[2018-09-07] MEDS: HYDROmorphONE 2 MG/ML SYG IV PRN ×4 (00:53→10:34)
[2018-09-07] MEDS: DIPHENHYDRAMINE 50 MG INJ IV PRN ×3 (00:53→13:36)
[2018-09-07 02:52] VITALS: BP 131/74; PULSE 83; RESP 18
[2018-09-07] MEDS: LEVOTHYROXINE 50 MCG TAB PO SCH (05:50)
[2018-09-07 07:57] VITALS: BP 111/59; PULSE 77; RESP 16
[2018-09-07] MEDS: ZINC SULFATE 220 MG CAP PO SCH (08:42)
[2018-09-07] MEDS: DULOXETINE 30 MG CAP DR PO SCH (08:42)
[2018-09-07] MEDS: CHOLECALCIFEROL 2,000 UNIT CAP PO SCH (08:42)
[2018-09-07] MEDS: PANTOPRAZOLE (EC) 40 MG TAB PO SCH ×2 (08:42→21:45)
[2018-09-07] MEDS: CEPASTAT LOZENGE MT PRN (08:42)
--- NOTE | 2018-09-07 11:28 | PN ---
Date/Time of Note Date/Time of Note DATE: 09/07/18 TIME: 11:24 Assessment/Plan VTE Prophylaxis Risk score (from [facility])>0 risk: 6 SCD applied (from [facility]): No SCD contraindicated: low risk/ambulating Pharmacological prophylaxis: NA/contraindicated Pharm contraindication: bleeding Lines/Catheters IV C[facility] Type ([facility] PICC Line Central line still needed: Yes Urinary Cath still in place: No Assessment/Plan Hospital Course A/P 1. Hemoptysis? bronch/ egd/ laryngoscopy (09/01) was completely nrml. Past egd/bronch in [place] was also unremarkable. Refused teritary eval in the past. No pathological lesions or scars. No bleeding diathesis. 2. H/o HL - chemo/ xrt; repeat chemo [facility]. Sp BmBx-appears negative. 3. Ho PE/ Dvt, ivc filter status 4. Diarrhea/ giardia; Rxed; however occ diarrhea noted colon 08/17; patchy colitis 5. H//o c diff 6. H/o thyroid nodule? 5. UTI 6. H/o H pylori; EGD- 'ulcers' within the last year. Current EGD -ve. 7. Coagulase-negative Staph bacteremia 09/01. Stenotrophomonas maltophilia bacteremia 09/03: 2D -ve for veg. Source colon? Recent colonoscopy does not show any mass/ cancer. Immunosuppressed? 8. Anemia; beta thalassemia trait; sp bone marrow 08/20 negative; spep. 9.. Chronic pain syndrome. 10. Prediabetes? 11. Ulcer of the frenulum linguae. 12. Failure to thrive, stable discharge to sniff once bed available. 13. Pulmonary nodules, stable, observe. Repeat imaging in 3 months. S: 08/23 feels ok; still bleeding. no dyspnea/ fever 08/24: Events noted still having hemoptysis. No hematuria 08/25: Hemoptysis again this morning? Patient denies any hematemesis or epistaxis 08/26: Recurrent hemoptysis this morning. No dyspnea fever 08/27: Still having hemoptysis? No hematochezia melena hematuria or epistaxis. No dyspnea fever. 08/28: Events noted. She is worried about her hemoptysis. 08/29: Still bringing out a lot of blood. Hemoptysis versus hematemesis. Chronic stable we will consult GI. 09/06: Intermittent hemoptysis. Now having diarrhea without any GI bleed. No fevers. 09/07: Intermittent hemoptysis. Denies any fever vomiting GI bleed. No dyspnea. Does not have a regular oncologist and no outpatient support. Will need snf O: vss PE No pallor Regular Clear Benign, nt nd; no RRG No edema Result Diagram: 09/07/18 0549 09/07/18 0549 Results 24hrs Laboratory Tests Test 09/07/18 05:49 White Blood Count 5.1 Red Blood Count 3.33 L Hemoglobin 8.2 L Hematocrit 25.9 L Mean Corpuscular Volume 77.8 L Mean Corpuscular Hemoglobin 24.6 L Mean Corpuscular Hemoglobin Concent 31.7 L Red Cell Distribution Width 17.8 H Platelet Count 225 Mean Platelet Volume 10.3 Immature Granulocytes % 1.000 H Neutrophils % 59.6 Lymphocytes % 26.9 Monocytes % 8.7 Eosinophils % 3.2 Basophils % 0.6 Nucleated Red Blood Cells % 0.0 Immature Granulocytes # 0.050 H Neutrophils # 3.0 Lymphocytes # 1.4 Monocytes # 0.4 Eosinophils # 0.2 Basophils # 0.0 Nucleated Red Blood Cells # 0.0 Sodium Level 141 Potassium Level 3.8 Chloride Level 107 Carbon Dioxide Level 30 Anion Gap 4 L Blood Urea Nitrogen 16 Creatinine 0.57 Est Glomerular Filtrat Rate mL/min > 60 Glucose Level 106 Calcium Level 9.1 Total Bilirubin 0.3 Direct Bilirubin 0.00 Indirect Bilirubin 0.3 Aspartate Amino Transf (AST/SGOT) 20 Alanine Aminotransferase (ALT/SGPT) 25 Alkaline Phosphatase 88 Total Protein 6.5 Albumin 3.5 Globulin 3.00 Albumin/Globulin Ratio 1.16 Exam/Review of Systems Exam Vitals Vital Signs Date Temp Pulse Resp B/P (MAP) Pulse Ox O2 O2 Flow FiO2 Time Delivery Rate 09/07/18 98.8 77 16 111/59 98 07:57 (76) 09/06/18 Room Air 14:28 Intake and Output 09/06/18 09/06/18 09/07/18 1515:00 23:00 07:00 IntakeIntake Total 1220 ml 560 ml 300 ml OutputOutput Total 180 ml 180 ml BalanceBalance 1220 ml 380 ml 120 ml Results Results 24hrs Laboratory Tests Test 09/07/18 05:49 White Blood Count 5.1 Red Blood Count 3.33 L Hemoglobin 8.2 L Hematocrit 25.9 L Mean Corpuscular Volume 77.8 L Mean Corpuscular Hemoglobin 24.6 L Mean Corpuscular Hemoglobin Concent 31.7 L Red Cell Distribution Width 17.8 H Platelet Count 225 Mean Platelet Volume 10.3 Immature Granulocytes % 1.000 H Neutrophils % 59.6 Lymphocytes % 26.9 Monocytes % 8.7 Eosinophils % 3.2 Basophils % 0.6 Nucleated Red Blood Cells % 0.0 Immature Granulocytes # 0.050 H Neutrophils # 3.0 Lymphocytes # 1.4 Monocytes # 0.4 Eosinophils # 0.2 Basophils # 0.0 Nucleated Red Blood Cells # 0.0 Sodium Level 141 Potassium Level 3.8 Chloride Level 107 Carbon Dioxide Level 30 Anion Gap 4 L Blood Urea Nitrogen 16 Creatinine 0.57 Est Glomerular Filtrat Rate mL/min > 60 Glucose Level 106 Calcium Level 9.1 Total Bilirubin 0.3 Direct Bilirubin 0.00 Indirect Bilirubin 0.3 Aspartate Amino Transf (AST/SGOT) 20 Alanine Aminotransferase (ALT/SGPT) 25 Alkaline Phosphatase 88 Total Protein 6.5 Albumin 3.5 Globulin 3.00 Albumin/Globulin Ratio 1.16 Medications Medication Current Medications IV Flush (NS 3 ml) 3 ml PER PROTOCOL IV ; Start 08/13/18 at 20:00 Ondansetron HCl (Zofran Inj) 4 mg Q6H PRN IV NAUSEA AND/OR VOMITING Last administered on 08/29/18 09:30; Admin Dose 4 MG; Start 08/13/18 at 20:00 Duloxetine HCl (Cymbalta) 60 mg DAILY PO Last administered on 09/07/18at 08:42; Admin Dose 60 MG; Start 08/14/18 at 09:00 Levothyroxine Sodium (Synthroid) 50 mcg BEFORE BREAKFAST PO Last administered on 09/07/18at 05:50; Admin Dose 50 MCG; Start 08/15/18 at 07:00 Alteplase, Recombinant (Cathflo (Activase)) 2 mg MAY REPEAT X1 PRN CATHETER IF CATHETER REMAINS OCCULUDED Last administered on 09/06/18at 11:28; Admin Dose 2 MG; Start 08/15/18 at 06:00 Cholecalciferol (Vitamin D) 2,000 unit DAILY PO Last administered on 09/07/18 08:42; Admin Dose 2,000 UNIT; Start 08/17/18 at 09:00 Zinc Sulfate (Zinc Sulfate) 220 mg DAILY PO Last administered on 09/07/18 08:42; Admin Dose 220 MG; Start 08/17/18 at 09:00 Eye Lubricant (Artificial Tears Oph) 1 drop Q6H PRN BOTH EYES DRY EYES Last administered on 08/19/18at 00:00; Admin Dose 1 DROP; Start 08/16/18 at 23:30 Miscellaneous Information 1 ea NOTE XX ; Start 08/17/18 at 10:30 Glucose (Glutose) 15 gm Q15M PRN PO DECREASED GLUCOSE; Start 08/17/18 at 10:30 Glucose (Glutose) 22.5 gm Q15M PRN PO DECREASED GLUCOSE; Start 08/17/18 at 10:30 Dextrose (D50w Syringe) 25 ml Q15M PRN IV DECREASED GLUCOSE; Start 08/17/18 at 10:30 Dextrose (D50w Syringe) 50 ml Q15M PRN IV DECREASED GLUCOSE; Start 08/17/18 at 10:30 Glucagon (Glucagen) 1 mg Q15M PRN IM DECREASED GLUCOSE; Start 08/17/18 at 10:30 Glucose (Glutose) 15 gm Q15M PRN BUCCAL DECREASED GLUCOSE; Start 08/17/18 at 10:30 Lorazepam (Ativan) 1 mg Q6H PRN IV Anxiety Last administered on 09/06/18at 20:20; Admin Dose 1 MG; Start 08/18/18 at 14:30 Zolpidem Tartrate (Ambien) 10 mg QHS PRN PO INSOMNIA Last administered on 09/06/18 22:55; Admin Dose 10 MG; Start 08/20/18 at 11:30 Phenol (Cepastat Lozenge) 1 lozenge Q1H PRN MT THROAT PAIN Last administered on 09/07/18 08:42; Admin Dose 1 LOZENGE; Start 08/21/18 at 11:00 Pantoprazole (Protonix Tab) 40 mg BID PO Last administered on 09/07/18 08:42; Admin Dose 40 MG; Start 08/25/18 at 09:00 Diphenhydramine HCl (Benadryl) 50 mg Q6H PRN IV ITCHING Last administered on 09/07/18at 07:23; Admin Dose 50 MG; Start 08/26/18 at 21:00 Acetaminophen (Tylenol Tab) 500 mg Q6H PRN PO MILD PAIN(1-3)OR ELEVATED TEMP; Start 09/01/18 at 18:30 Lidocaine (Xylocaine (Viscous)) 15 ml QID PRN PO Pain in the mouth; Start 09/02/18 at 10:30 Daptomycin 500 mg/ Sodium Chloride 100 ml @ 200 mls/hr Q24H IVPB Last a dministered on 09/06/18at 17:33; Admin Dose 200 MLS/HR; Start 09/03/18 at 16:00 Levofloxacin/ Dextrose 100 ml @ 100 mls/hr Q24H IVPB Last administered on 09/06/18at 15:40; Admin Dose 100 MLS/HR; Start 09/05/18 at 16:30; Stop 09/19/18 at 16:29 Tramadol HCl (Ultram) 50 mg Q6H PRN PO MODERATE PAIN LEVEL 4-6; Start 09/07/18 at 11:00 LEON CORONA MD Sep 07, 2018 11:28
[2018-09-07] MEDS: traMADol 50 MG TAB PO PRN (13:36)
--- NOTE | 2018-09-07 13:42 | CONS ---
Assessment/Plan Assessment/Plan Hospital Course (Demo Recall) sepsis, bloodstream infection - s/p sepsis d/t bacteremia - fever and tachycardia resolved - bacteremia d/t Coag Neg Staph and Stenotrophomonas maltophilia on 09/01/2018 and 09/02/2018; repeat blood cultures 09/04/18 shows NGTD - h/o "bacteremia due to enterococci" according to progress notes at [facility], but the actual microbiology report indicated blood culture was positive for ESBL+E. coli - h/o fungemia due to rhonda glabrata, sensitive to fluconazole and to micafungin/caspofungin at [facility] - TTE done 09/04/18 showed no mention of valvular vegetations; EF 55-60% pulm - persistent hemoptysis of unknown etiology: Pt reports negative PPD last month at [facility]. - according to the microbiology report at [facility], Pt had ESBL+E. coli in her respiratory culture. Sputum cultures for AFB and fungi were negative at 8 weeks and at 4 weeks respectively at [facility] - Pt had negative bronchoscopy in 05/2018 at [facility], another at [facility] in 2017, and on 08/25/2018 at [facility] (no e/o bronchial airway bleeding according to Dr. Bello - Numerous tiny lung nodules, increased in number from the chest CT dated May 22, 2018, with largest measuring 0.3 cm in the left apex - Rhonda albicans in sputum cx on 08/28/2018 - likely colonizer - so far: aspergillus antibody not detected, HIV negative, coccidioidomycosis serology negative, TB Quant Gold negative, 1,3 beta d glucan negative, procalc 09/01/18 was 0.30 GI - Delgado-colitis per CT - S/p diarrhea on 09/06/18 - S/p sigmoidoscopy with biopsy 08/17/2018; path showed no e/o colitis or malignancy from transverse colon and rectum biopsies - S/p bloody diarrhea d/t Giardia; Pt took metronidazole for Giardia (08/14/2018- 08/21/2018) in 07/2018. - H/o C diff toxin negative PCR positive status at [facility]. Took a course of Fidaxomyxin x 10 days. C. 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 Iron deficiency must be ruled out. - H/o BUE and RLE DVT, s/p IVC filter in January 2018 - H/o Hodgkin lymphoma diagnosed in 2006 - H/o thyroid CA diagnosed in 2005, s/p resection, chemo and XRT - IVC filter placement - +Family hx of cancer (father of stomach CA, mother of lymphoma, paternal uncle had breast CA and 12 yo daughter has h/o brain tumor s/p surgery and resulting blindness) , renal - h/o UTI due to ESBL+E. coli - S/p PO levofloxacin (08/24/2018-08/28/2018) for probable UTI other conditions - a painful ulcer at frenulum, recurrent. According to Pt, topical steroid would worsen the pain. HIV negative, RPR non reactive, herpes 1 and 2 by PCR not detected; s/p trial of PO valacyclovir (08/27/2018-09/01/2018) - s/p bilateral conjunctivitis - improved s/p Cipro eye drops (08/18/18-08/23/18) - Hypothyroidism - HLD - S/p hypokalemia - OA - depression/anxiety - H/o x2 - Allergy to PCN and vancomycin (reaction unknown) Recommendations: - F/u repeat blood cultures 09/04/18 (NGTD) - Continue Daptomycin (clarify allergy to vanco) and Levaquin (09/05/18 - ) to complete 14 days from first negative blood culture; s/p Cefepime (09/03/18 - ) - Serial CK level (<20 on 09/03/2018) while on Dapto - Consider GI re-evaluation - suspect bacteremia originating from colitis - We recommend DC PICC - Trend fever curve (resolved) - Monitor for diarrhea (resolved today per pt) Management d/w patient and with Dr. Hansen. Consultation Date/Type/Reason Admit Date/Time Aug 13, 2018 at 17:22 Initial Consult Date 08/19/18 Type of Consult Infectious Disease Requesting Provider: SHAQUILLE HARRIS Date/Time of Note DATE: 09/07/18 TIME: 13:41 24 HR Interval Summary Free Text/Dictation Feels slightly better today with less hemoptysis. Recently medicated with Tramadol for pain with adequate results. Had 4 episodes of diarrhea yesterday and reports had normal BM today. Exam/Review of Systems Exam Vitals Vital Signs Date Temp Pulse Resp B/P (MAP) Pulse Ox O2 O2 Flow FiO2 Time Delivery Rate 09/07/18 98.8 77 16 111/59 98 07:57 (76) 09/06/18 Room Air 14:28 Intake and Output 09/06/18 09/06/18 09/07/18 1414:59 22:59 06:59 IntakeIntake Total 1220 ml 560 ml 300 ml OutputOutput Total 180 ml 180 ml BalanceBalance 1220 ml 380 ml 120 ml Exam Constitutional: alert, oriented, well developed Psych: nl mood/affect Head: normocephalic, atraumatic Eyes: nl conjunctiva, nl lids, nl sclera ENMT: nl external ears & nose, nl nasal mucosa & septum, mucosa pink and moist, other (white ulcer of the frenulum linguae - slightly improved from prior exam) Neck: supple, non-tender Respiratory: normal air movement, crackles/rales, other (bloody phlegm noted in cup and urinal at bedside) Cardiovascular: regular rate and rhythm, nl pulses Gastrointestinal: soft, non-tender; No distended Genitourinary - Female: other (no Bed[place]) Musculoskeletal: nl extremities to inspection No swelling Extremities: normal pulses, other (LUE PICC c/d/i) Neurological: nl mental status, nl speech Skin: nl turgor; No rash or lesions Results Result Diagram: 09/07/1849 09/07/1849 Results 24hrs Laboratory Tests Test 09/07/18 05:49 White Blood Count 5.1 Red Blood Count 3.33 L Hemoglobin 8.2 L Hematocrit 25.9 L Mean Corpuscular Volume 77.8 L Mean Corpuscular Hemoglobin 24.6 L Mean Corpuscular Hemoglobin Concent 31.7 L Red Cell Distribution Width 17.8 H Platelet Count 225 Mean Platelet Volume 10.3 Immature Granulocytes % 1.000 H Neutrophils % 59.6 Lymphocytes % 26.9 Monocytes % 8.7 Eosinophils % 3.2 Basophils % 0.6 Nucleated Red Blood Cells % 0.0 Immature Granulocytes # 0.050 H Neutrophils # 3.0 Lymphocytes # 1.4 Monocytes # 0.4 Eosinophils # 0.2 Basophils # 0.0 Nucleated Red Blood Cells # 0.0 Sodium Level 141 Potassium Level 3.8 Chloride Level 107 Carbon Dioxide Level 30 Anion Gap 4 L Blood Urea Nitrogen 16 Creatinine 0.57 Est Glomerular Filtrat Rate mL/min > 60 Glucose Level 106 Calcium Level 9.1 Total Bilirubin 0.3 Direct Bilirubin 0.00 Indirect Bilirubin 0.3 Aspartate Amino Transf (AST/SGOT) 20 Alanine Aminotransferase (ALT/SGPT) 25 Alkaline Phosphatase 88 Total Protein 6.5 Albumin 3.5 Globulin 3.00 Albumin/Globulin Ratio 1.16 Medications Medication Current Medications IV Flush (NS 3 ml) 3 ml PER PROTOCOL IV ; Start 08/13/18 at 20:00 Ondansetron HCl (Zofran Inj) 4 mg Q6H PRN IV NAUSEA AND/OR VOMITING Last administered on 08/29/18 09:30; Admin Dose 4 MG; Start 08/13/18 at 20:00 Duloxetine HCl (Cymbalta) 60 mg DAILY PO Last administered on 09/07/18 08:42; Admin Dose 60 MG; Start 08/14/18 at 09:00 Levothyroxine Sodium (Synthroid) 50 mcg BEFORE BREAKFAST PO Last administered on 09/07/18 05:50; Admin Dose 50 MCG; Start 08/15/18 at 07:00 Alteplase, Recombinant (Cathflo (Activase)) 2 mg MAY REPEAT X1 PRN CATHETER IF CATHETER REMAINS OCCULUDED Last administered on 09/06/18 11:28; Admin Dose 2 MG; Start 08/15/18 at 06:00 Cholecalciferol (Vitamin D) 2,000 unit DAILY PO Last administered on 09/07/18 08:42; Admin Dose 2,000 UNIT; Start 08/17/18 at 09:00 Zinc Sulfate (Zinc Sulfate) 220 mg DAILY PO Last administered on 09/07/18 08:42; Admin Dose 220 MG; Start 08/17/18 at 09:00 Eye Lubricant (Artificial Tears Oph) 1 drop Q6H PRN BOTH EYES DRY EYES Last administered on 08/19/18 00:00; Admin Dose 1 DROP; Start 08/16/18 at 23:30 Miscellaneous Information 1 ea NOTE XX ; Start 08/17/18 at 10:30 Glucose (Glutose) 15 gm Q15M PRN PO DECREASED GLUCOSE; Start 08/17/18 at 10:30 Glucose (Glutose) 22.5 gm Q15M PRN PO DECREASED GLUCOSE; Start 08/17/18 at 10:30 Dextrose (D50w Syringe) 25 ml Q15M PRN IV DECREASED GLUCOSE; Start 08/17/18 at 10:30 Dextrose (D50w Syringe) 50 ml Q15M PRN IV DECREASED GLUCOSE; Start 08/17/18 at 10:30 Glucagon (Glucagen) 1 mg Q15M PRN IM DECREASED GLUCOSE; Start 08/17/18 at 10:30 Glucose (Glutose) 15 gm Q15M PRN BUCCAL DECREASED GLUCOSE; Start 08/17/18 at 10:30 Lorazepam (Ativan) 1 mg Q6H PRN IV Anxiety Last administered on 09/06/18at 20:20; Admin Dose 1 MG; Start 08/18/18 at 14:30 Zolpidem Tartrate (Ambien) 10 mg QHS PRN PO INSOMNIA Last administered on 09/06/18at 22:55; Admin Dose 10 MG; Start 08/20/18 at 11:30 Phenol (Cepastat Lozenge) 1 lozenge Q1H PRN MT THROAT PAIN Last administered on 09/07/18at 08:42; Admin Dose 1 LOZENGE; Start 08/21/18 at 11:00 Pantoprazole (Protonix Tab) 40 mg BID PO Last administered on 09/07/18at 08:42; Admin Dose 40 MG; Start 08/25/18 at 09:00 Diphenhydramine HCl (Benadryl) 50 mg Q6H PRN IV ITCHING Last administered on 09/07/18at 13:36; Admin Dose 50 MG; Start 08/26/18 at 21:00 Acetaminophen (Tylenol Tab) 500 mg Q6H PRN PO MILD PAIN(1-3)OR ELEVATED TEMP; Start 09/01/18 at 18:30 Lidocaine (Xylocaine (Viscous)) 15 ml QID PRN PO Pain in the mouth; Start 09/02/18 at 10:30 Daptomycin 500 mg/ Sodium Chloride 100 ml @ 200 mls/hr Q24H IVPB Last administered on 09/06/18at 17:33; Admin Dose 200 MLS/HR; Start 09/03/18 at 16:00 Levofloxacin/ Dextrose 100 ml @ 100 mls/hr Q24H IVPB Last administered on 08/27 08/14at 15:40; Admin Dose 100 MLS/HR; Start 09/05/18 at 16:30; Stop 09/19/18 at 16:29 Tramadol HCl (Ultram) 50 mg Q6H PRN PO MODERATE PAIN LEVEL 4-6 Last administered on 09/07/18at 13:36; Admin Dose 50 MG; Start 09/07/18 at 11:00 RICHARD APPLE NP Sep 07, 2018 13:41
[2018-09-07 14:34] VITALS: BP 121/61; PULSE 86; RESP 18
[2018-09-07] MEDS: LORAZEPAM 2 MG INJ IV PRN ×2 (14:43→22:59)
[2018-09-07] MEDS: DAPTOMYCIN 500 MG in SOD CHLORIDE 0.9% 100 ML IVPB SCH (16:00)
--- NOTE | 2018-09-07 16:12 | CONS ---
Assessment/Plan Assessment/Plan Assessment/Plan (Daily) h/o Lymphoma -thus far there are no lesions that can be biopsied and it does not appear she has active cancer #Anemia-hgb 8.2 today- sp 2 units of PRBC -Hgb Electrophoresis - confirms B- thalassemia trait with Anemia -pt has had microcytic anemia requiring transfusions for years -will order a bone marrow bx at this time- pending -anemia panel-anemia positive # Hemoptysis VS Hematemesis - GI follows - 08/31/2018- S/P esophagogastroduodenoscopy- showed no evidence of any gastrointestinal bleed. #Hemoptysis, recurrent. -s/p unremarkable bronchoscopy at [facility] -s/p unremarkable flexible laryngoscopy 02/05/17 at [facility] -CT Chest pulmonary nodules are noted but are too small to biopsy -ID workup pending for pulmonary nodules- Numerous tiny lung nodules, increased in number from the chest CT dated May 22, 2018, with largest measuring 0.3 cm in the left apex - 02/2018- negative TB workup -08/21/18-CT Chest Angio- no new changes. will do Follow-up CT in X 3-4 months to insure stability as recommended - 08/24/18- Repeat bronchoscopy - wnl - Given her platelets and coag panel are wnl; Bronchoscopy is wnl #pancolitis. -Colonoscopy on 08/17/2018 showed patchy colitis. bx was negative -Stool positive for Giardia- pt on vancomycin and flagyl Patient seen in collaboration with Dr Brown. Dw Staff Consultation Date/Type/Reason Admit Date/Time Aug 13, 2018 at 5:22 pm Initial Consult Date 08/19/18 Type of Consult ONCOLOGY Requesting Provider: SHAQUILLE HARRIS Date/Time of Note DATE: 09/07/18 TIME: 16:12 24 HR Interval Summary Free Text/Dictation c/o coughing blood but getting less now no new events reported overnight Plan to discharge to [facility] Constitutional: improved Detailed Summary Eyes: no complaints ENT: no complaints Respiratory: cough ( w/blood) Cardiovascular: no complaints Gastrointestinal: no complaints Genitourinary: no complaints Musculoskeletal: no complaints Skin: no complaints Neurologic: no complaints Psychological: nl mood/affect Immunologic: no complaints Exam/Review of Systems Exam Vitals Vital Signs Date Temp Pulse Resp B/P (MAP) Pulse Ox O2 O2 Flow FiO2 Time Delivery Rate 09/07/18 98.4 86 18 121/61 98 14:34 (81) 09/06/18 Room Air 14:28 Intake and Output 09/06/18 09/06/18 09/07/18 1515:00 23:00 07:00 IntakeIntake Total 1220 ml 560 ml 300 ml OutputOutput Total 180 ml 180 ml BalanceBalance 1220 ml 380 ml 120 ml Constitutional: alert, well developed Psych: nl mood/affect Head: atraumatic Eyes: EOMI ENMT: nl external ears & nose Neck: non-tender Respiratory: diminished breath sounds (bilaterally) Cardiovascular: nl pulses, other (s1s2) Gastrointestinal: soft, non-tender Musculoskeletal: nl extremities to inspection Extremities: normal pulses Neurological: nl mental status, nl speech Skin: nl turgor Lymph: nontender Results Result Diagram: 09/07/18 0549 09/07/18 0549 Results 24hrs Laboratory Tests Test 09/07/18 05:49 White Blood Count 5.1 Red Blood Count 3.33 L Hemoglobin 8.2 L Hematocrit 25.9 L Mean Corpuscular Volume 77.8 L Mean Corpuscular Hemoglobin 24.6 L Mean Corpuscular Hemoglobin Concent 31.7 L Red Cell Distribution Width 17.8 H Platelet Count 225 Mean Platelet Volume 10.3 Immature Granulocytes % 1.000 H Neutrophils % 59.6 Lymphocytes % 26.9 Monocytes % 8.7 Eosinophils % 3.2 Basophils % 0.6 Nucleated Red Blood Cells % 0.0 Immature Granulocytes # 0.050 H Neutrophils # 3.0 Lymphocytes # 1.4 Monocytes # 0.4 Eosinophils # 0.2 Basophils # 0.0 Nucleated Red Blood Cells # 0.0 Sodium Level 141 Potassium Level 3.8 Chloride Level 107 Carbon Dioxide Level 30 Anion Gap 4 L Blood Urea Nitrogen 16 Creatinine 0.57 Est Glomerular Filtrat Rate mL/min > 60 Glucose Level 106 Calcium Level 9.1 Total Bilirubin 0.3 Direct Bilirubin 0.00 Indirect Bilirubin 0.3 Aspartate Amino Transf (AST/SGOT) 20 Alanine Aminotransferase (ALT/SGPT) 25 Alkaline Phosphatase 88 Total Protein 6.5 Albumin 3.5 Globulin 3.00 Albumin/Globulin Ratio 1.16 Medications Medication Current Medications IV Flush (NS 3 ml) 3 ml PER PROTOCOL IV ; Start 08/13/18 at 20:00 Ondansetron HCl (Zofran Inj) 4 mg Q6H PRN IV NAUSEA AND/OR VOMITING Last administered on 08/29/18 09:30; Admin Dose 4 MG; Start 08/13/18 at 20:00 Duloxetine HCl (Cymbalta) 60 mg DAILY PO Last administered on 09/07/18 08:42; Admin Dose 60 MG; Start 08/14/18 at 09:00 Levothyroxine Sodium (Synthroid) 50 mcg BEFORE BREAKFAST PO Last administered on 09/07/18 05:50; Admin Dose 50 MCG; Start 08/15/18 at 07:00 Alteplase, Recombinant (Cathflo (Activase)) 2 mg MAY REPEAT X1 PRN CATHETER IF CATHETER REMAINS OCCULUDED Last administered on 09/06/18 11:28; Admin Dose 2 MG; Start 08/15/18 at 06:00 Cholecalciferol (Vitamin D) 2,000 unit DAILY PO Last administered on 09/07/18 08:42; Admin Dose 2,000 UNIT; Start 08/17/18 at 09:00 Zinc Sulfate (Zinc Sulfate) 220 mg DAILY PO Last administered on 09/07/18 08:42; Admin Dose 220 MG; Start 08/17/18 at 09:00 Eye Lubricant (Artificial Tears Oph) 1 drop Q6H PRN BOTH EYES DRY EYES Last administered on 08/19/18at 00:00; Admin Dose 1 DROP; Start 08/16/18 at 23:30 Miscellaneous Information 1 ea NOTE XX ; Start 08/17/18 at 10:30 Glucose (Glutose) 15 gm Q15M PRN PO DECREASED GLUCOSE; Start 08/17/18 at 10:30 Glucose (Glutose) 22.5 gm Q15M PRN PO DECREASED GLUCOSE; Start 08/17/18 at 10:30 Dextrose (D50w Syringe) 25 ml Q15M PRN IV DECREASED GLUCOSE; Start 08/17/18 at 10:30 Dextrose (D50w Syringe) 50 ml Q15M PRN IV DECREASED GLUCOSE; Start 08/17/18 at 10:30 Glucagon (Glucagen) 1 mg Q15M PRN IM DECREASED GLUCOSE; Start 08/17/18 at 10:30 Glucose (Glutose) 15 gm Q15M PRN BUCCAL DECREASED GLUCOSE; Start 08/17/18 at 10:30 Lorazepam (Ativan) 1 mg Q6H PRN IV Anxiety Last administered on 09/07/18 14:43; Admin Dose 1 MG; Start 08/18/18 at 14:30 Zolpidem Tartrate (Ambien) 10 mg QHS PRN PO INSOMNIA Last administered on 09/06/18 22:55; Admin Dose 10 MG; Start 08/20/18 at 11:30 Phenol (Cepastat Lozenge) 1 lozenge Q1H PRN MT THROAT PAIN Last administered on 09/07/18 08:42; Admin Dose 1 LOZENGE; Start 08/21/18 at 11:00 Pantoprazole (Protonix Tab) 40 mg BID PO Last administered on 09/07/18 08:42; Admin Dose 40 MG; Start 08/25/18 at 09:00 Diphenhydramine HCl (Benadryl) 50 mg Q6H PRN IV ITCHING Last administered on 09/07/18 13:36; Admin Dose 50 MG; Start 08/26/18 at 21:00 Acetaminophen (Tylenol Tab) 500 mg Q6H PRN PO MILD PAIN(1-3)OR ELEVATED TEMP; Start 09/01/18 at 18:30 Lidocaine (Xylocaine (Viscous)) 15 ml QID PRN PO Pain in the mouth; Start 09/02/18 at 10:30 Daptomycin 500 mg/ Sodium Chloride 100 ml @ 200 mls/hr Q24H IVPB Last administered on 09/06/18 17:33; Admin Dose 200 MLS/HR; Start 09/03/18 at 16:00 Levofloxacin/ Dextrose 100 ml @ 100 mls/hr Q24H IVPB Last administered on 09/06/18 15:40; Admin Dose 100 MLS/HR; Start 09/05/18 at 16:30; Stop 09/19/18 at 16:29 Tramadol HCl (Ultram) 50 mg Q6H PRN PO MODERATE PAIN LEVEL 4-6 Last administered on 09/07/18 13:36; Admin Dose 50 MG; Start 09/07/18 at 11:00 SULEMA WRIGHT Sep 07, 2018 4:12 pm
--- NOTE | 2018-09-07 16:50 | PSY ---
Date/Time of Note Date/Time of Note DATE: 09/07/18 TIME: 16:41 Psychiatric Subjective Eval Consent Pt consented to telemedicine: No Subjective Evaluation Patient location: inpatient Chief Complaint: ABD PAIN WITH BLOODY STOOLS History of present illness Patient is a 52-year-old female with history of hemoptysis. On a [id number] evaluation, patient reports feeling hopeless, she is tearful states she is in a lot of pain and she would rather than experience the pain . When patient was asked if she was suicidal she said she would never kill herself but she was just in pain and frustrated.. She is currently on Cymbalta and patient states Cymbalta is just enough for her depression, all she wanted was more narcotics for her pain Past psychiatric history Long history of depression 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 (6) Rectal bleeding Status: Acute Allergies: Coded Allergies: Iodinated Contrast- Oral and IV Dye (Verified Allergy, Severe, 08/20/18) Iodine and Iodide Containing Produc (Verified Allergy, Unknown, 08/13/18) Penicillins (Verified Allergy, Unknown, 08/13/18) ketorolac (Verified Allergy, Unknown, 08/13/18) morphine (Verified Allergy, Unknown, 08/13/18) vancomycin (Verified Allergy, Unknown, 08/13/18) Substance Abuse Substance abuse history: No Prior substance abuse treatmen: No Social History Marital status: other DPA/Conservatorship: No Psychiatric Objective Eval Review of Systems: Review of Systems: Not Applicable Physical Examination: Physical Examination: Not Applicable Mental Status Examination: Appearance: Poor Hygiene Eye Contact: Poor Psychomotor Activity: Slow Behavior: Cooperative Speech: Clear, Soft AFFECT: Flat Mood: Depressed Though Process: Linear Thought Content: Normal Suicidal: No Orientation: x4 Insight: Intact Judgement: Intact Attention Span: Distractible Laboratory Results Laboratory Tests Test 09/06/18 05:18 09/07/18 05:49 White Blood Count 4.4 10^3/ul 5.1 10^3/ul Red Blood Count 3.22 10^6/ul 3.33 10^6/ul Hemoglobin 7.8 g/dl 8.2 g/dl Hematocrit 24.9 % 25.9 % Mean Corpuscular Volume 77.3 fl 77.8 fl Mean Corpuscular Hemoglobin 24.2 pg 24.6 pg Mean Corpuscular Hemoglobin Concent 31.3 g/dl 31.7 g/dl Red Cell Distribution Width 18.2 % 17.8 % Platelet Count 190 10^3/UL 225 10^3/UL Mean Platelet Volume 10.7 fl 10.3 fl Immature Granulocytes % 1.100 % 1.000 % Neutrophils % 57.8 % 59.6 % Lymphocytes % 27.5 % 26.9 % Monocytes % 9.7 % 8.7 % Eosinophils % 3.2 % 3.2 % Basophils % 0.7 % 0.6 % Nucleated Red Blood Cells % 0.0 /100WBC 0.0 /100WBC Immature Granulocytes # 0.050 10^3/ul 0.050 10^3/ul Neutrophils # 2.6 10^3/ul 3.0 10^3/ul Lymphocytes # 1.2 10^3/ul 1.4 10^3/ul Monocytes # 0.4 10^3/ul 0.4 10^3/ul Eosinophils # 0.1 10^3/ul 0.2 10^3/ul Basophils # 0.0 10^3/ul 0.0 10^3/ul Nucleated Red Blood Cells # 0.0 10^3/ul 0.0 10^3/ul Sodium Level 141 mmol/L 141 mmol/L Potassium Level 3.5 mmol/L 3.8 mmol/L Chloride Level 102 mmol/L 107 mmol/L Carbon Dioxide Level 31 mmol/L 30 mmol/L Anion Gap 8 4 Blood Urea Nitrogen 12 mg/dl 16 mg/dl Creatinine 0.49 mg/dl 0.57 mg/dl Est Glomerular Filtrat Rate mL/min > 60 mL/min > 60 mL/min Glucose Level 109 mg/dl 106 mg/dl Calcium Level 9.3 mg/dl 9.1 mg/dl Phosphorus Level 4.7 mg/dl Magnesium Level 1.9 mg/dl Total Bilirubin 0.3 mg/dl Direct Bilirubin 0.00 mg/dl Indirect Bilirubin 0.3 mg/dl Aspartate Amino Transf (AST/SGOT) 20 IU/L Alanine Aminotransferase (ALT/SGPT) 25 IU/L Alkaline Phosphatase 88 IU/L Total Protein 6.5 g/dl Albumin 3.5 g/dl Globulin 3.00 g/dl Albumin/Globulin Ratio 1.16 Assessment and Plan Assessment/Diagnosis Diagnosis Major depressive disorder severe recurrent without psychosis Recommendation/Plan Medication Management Cymbalta 60 mg daily, Ambien 10 mg at bedtime as needed for sleep Multiple antipsychotics: No Psychotherapy Provide supportive therapy Discharge Disposition: Other Legal Status: Voluntary (Does not meets criteria for 5150 hold) RENAN GUADALUPE NP Sep 07, 2018 16:50
[2018-09-07] MEDS: LEVOFLOXACIN 500MG/D5W (PMX) 100 ML IVPB SCH (17:32)
[2018-09-07 20:10] VITALS: BP 122/72; PULSE 76; RESP 18
[2018-09-07 21:18] VITALS: BP 143/76; PULSE 84; RESP 18
[2018-09-07] MEDS: ZOLPIDEM 5 MG TAB PO PRN (21:45)
[2018-09-08 01:49] VITALS: BP 140/72; PULSE 78; RESP 18
[2018-09-08] MEDS: traMADol 50 MG TAB PO PRN ×4 (02:01→20:06)
[2018-09-08] MEDS: LORAZEPAM 2 MG INJ IV PRN ×3 (05:09→16:13)
[2018-09-08] MEDS: LEVOTHYROXINE 50 MCG TAB PO SCH (06:08)
[2018-09-08] MEDS: DIPHENHYDRAMINE 50 MG INJ IV PRN ×3 (08:05→20:05)
[2018-09-08 08:15] VITALS: BP 138/66; PULSE 83; RESP 16
[2018-09-08] MEDS: ZINC SULFATE 220 MG CAP PO SCH (08:43)
[2018-09-08] MEDS: DULOXETINE 30 MG CAP DR PO SCH (08:43)
[2018-09-08] MEDS: CHOLECALCIFEROL 2,000 UNIT CAP PO SCH (08:43)
[2018-09-08] MEDS: PANTOPRAZOLE (EC) 40 MG TAB PO SCH ×2 (08:43→20:58)
[2018-09-08] MEDS ORDERED: IBUPROFEN 600 MG TAB PO PRN ×2 (12:00→19:00)
--- NOTE | 2018-09-08 13:20 | CONS ---
Assessment/Plan Assessment/Plan Assessment/Plan (Daily) h/o Lymphoma -thus far there are no lesions that can be biopsied and it does not appear she has active cancer #Anemia-hgb 8.2 today- sp 2 units of PRBC -Hgb Electrophoresis - confirms B- thalassemia trait with Anemia -pt has had microcytic anemia requiring transfusions for years -will order a bone marrow bx at this time- pending -anemia panel-anemia positive # Hemoptysis VS Hematemesis - GI follows - 08/31/2018- S/P esophagogastroduodenoscopy- showed no evidence of any gastrointestinal bleed. #Hemoptysis, recurrent. -s/p unremarkable bronchoscopy at [facility] -s/p unremarkable flexible laryngoscopy 02/05/17 at [facility] -CT Chest pulmonary nodules are noted but are too small to biopsy -ID workup pending for pulmonary nodules- Numerous tiny lung nodules, increased in number from the chest CT dated May 22, 2018, with largest measuring 0.3 cm in the left apex - 02/2018- negative TB workup -08/21/18-CT Chest Angio- no new changes. will do Follow-up CT in X 3-4 months to insure stability as recommended - 08/24/18- Repeat bronchoscopy - wnl - Given her platelets and coag panel are wnl; Bronchoscopy is wnl #pancolitis. -Colonoscopy on 08/17/2018 showed patchy colitis. bx was negative -Stool positive for Giardia- pt on vancomycin and flagyl Patient seen in collaboration with Dr Brown. Dw Staff Consultation Date/Type/Reason Admit Date/Time Aug 13, 2018 at 17:22 Initial Consult Date 08/19/18 Type of Consult ONCOLOGY Requesting Provider: SHAQUILLE HARRIS Date/Time of Note DATE: 09/08/18 TIME: 13:20 24 HR Interval Summary Free Text/Dictation c/o pain and coughing blood patient seems comfortable; no new events reported overnight per staff Detailed Summary Eyes: no complaints ENT: no complaints Respiratory: cough (w/ blood) Gastrointestinal: no complaints Genitourinary: no complaints Musculoskeletal: other (general weakness) Skin: no complaints Neurologic: no complaints Psychological: other (anxiety) Exam/Review of Systems Exam Vitals Vital Signs Date Temp Pulse Resp B/P (MAP) Pulse Ox O2 O2 Flow FiO2 Time Delivery Rate 09/08/18 97.4 83 16 138/66 99 Room Air 08:15 (90) Intake and Output 09/07/18 09/07/18 09/08/18 1515:00 23:00 07:00 IntakeIntake Total 500 ml 1300 ml BalanceBalance 500 ml 1300 ml Constitutional: alert, well developed Psych: nl mood/affect Head: normocephalic Eyes: EOMI, nl sclera, PERRL ENMT: nl external ears & nose Neck: non-tender Respiratory: diminished breath sounds (at bases) Cardiovascular: nl pulses, other (s1s2) Gastrointestinal: soft, non-tender Musculoskeletal: nl extremities to inspection Extremities: normal pulses Neurological: nl speech, other (alert/responsive) Skin: nl turgor Lymph: nontender Results Result Diagram: 09/07/18 0549 09/07/18 0549 Results 24hrs Laboratory Tests Test 09/08/18 09:27 Lab Scanned Report REFERENCE LAB Medications Medication Current Medications IV Flush (NS 3 ml) 3 ml PER PROTOCOL IV ; Start 08/13/18 at 20:00 Ondansetron HCl (Zofran Inj) 4 mg Q6H PRN IV NAUSEA AND/OR VOMITING Last administered on 08/29/18 09:30; Admin Dose 4 MG; Start 08/13/18 at 20:00 Duloxetine HCl (Cymbalta) 60 mg DAILY PO Last administered on 09/08/18 08:43; Admin Dose 60 MG; Start 08/14/18 at 09:00 Levothyroxine Sodium (Synthroid) 50 mcg BEFORE BREAKFAST PO Last administered on 09/08/18 06:08; Admin Dose 50 MCG; Start 08/15/18 at 07:00 Alteplase, Recombinant (Cathflo (Activase)) 2 mg MAY REPEAT X1 PRN CATHETER IF CATHETER REMAINS OCCULUDED Last administered on 09/06/18 11:28; Admin Dose 2 MG; Start 08/15/18 at 06:00 Cholecalciferol (Vitamin D) 2,000 unit DAILY PO Last administered on 09/08/18 08:43; Admin Dose 2,000 UNIT; Start 08/17/18 at 09:00 Zinc Sulfate (Zinc Sulfate) 220 mg DAILY PO Last administered on 09/08/18 08:43; Admin Dose 220 MG; Start 08/17/18 at 09:00 Eye Lubricant (Artificial Tears Oph) 1 drop Q6H PRN BOTH EYES DRY EYES Last administered on 08/19/18at 00:00; Admin Dose 1 DROP; Start 08/16/18 at 23:30 Miscellaneous Information 1 ea NOTE XX ; Start 08/17/18 at 10:30 Glucose (Glutose) 15 gm Q15M PRN PO DECREASED GLUCOSE; Start 08/17/18 at 10:30 Glucose (Glutose) 22.5 gm Q15M PRN PO DECREASED GLUCOSE; Start 08/17/18 at 10:30 Dextrose (D50w Syringe) 25 ml Q15M PRN IV DECREASED GLUCOSE; Start 08/17/18 at 10:30 Dextrose (D50w Syringe) 50 ml Q15M PRN IV DECREASED GLUCOSE; Start 08/17/18 at 10:30 Glucagon (Glucagen) 1 mg Q15M PRN IM DECREASED GLUCOSE; Start 08/17/18 at 10:30 Glucose (Glutose) 15 gm Q15M PRN BUCCAL DECREASED GLUCOSE; Start 08/17/18 at 10:30 Zolpidem Tartrate (Ambien) 10 mg QHS PRN PO INSOMNIA Last administered on 09/07/18at 21:45; Admin Dose 10 MG; Start 08/20/18 at 11:30 Phenol (Cepastat Lozenge) 1 lozenge Q1H PRN MT THROAT PAIN Last administered on 09/07/18at 08:42; Admin Dose 1 LOZENGE; Start 08/21/18 at 11:00 Pantoprazole (Protonix Tab) 40 mg BID PO Last administered on 09/08/18at 08:43; Admin Dose 40 MG; Start 08/25/18 at 09:00 Diphenhydramine HCl (Benadryl) 50 mg Q6H PRN IV ITCHING Last administered on 09/08/18at 08:05; Admin Dose 50 MG; Start 08/26/18 at 21:00 Acetaminophen (Tylenol Tab) 500 mg Q6H PRN PO MILD PAIN(1-3)OR ELEVATED TEMP; Start 09/01/18 at 18:30 Lidocaine (Xylocaine (Viscous)) 15 ml QID PRN PO Pain in the mouth; Start 09/02/18 at 10:30 Daptomycin 500 mg/ Sodium Chloride 100 ml @ 200 mls/hr Q24H IVPB Last administered on 09/06/18at 17:33; Admin Dose 200 MLS/HR; Start 09/03/18 at 16:00 Levofloxacin/ Dextrose 100 ml @ 100 mls/hr Q24H IVPB Last administered on 09/07/18at 17:32; Admin Dose 100 MLS/HR; Start 09/05/18 at 16:30; Stop 09/19/18 at 16:29 Tramadol HCl (Ultram) 50 mg Q6H PRN PO MODERATE PAIN LEVEL 4-6 Last administered on 09/08/18at 08:05; Admin Dose 50 MG; Start 09/07/18 at 11:00 Lorazepam (Ativan) 1 mg Q8H PRN IV Anxiety; Start 09/08/18 at 12:00 Gabapentin (Neurontin) 100 mg TID PO ; Start 09/08/18 at 13:00 Trazodone HCl (Desyrel) 50 mg BID PO ; Start 09/08/18 at 12:30 Lorazepam (Ativan) 1 mg Q12 PO ; Start 09/08/18 at 12:00 Ibuprofen (Motrin) 600 mg Q8 PRN PO SEVERE PAIN LEVEL 7-10; Start 09/08/18 at 12:00; Status UNV Lactobacillus Acidophilus/ Rhamnosus (Culturelle) 1 cap BID PO ; Start 09/08/18 at 12:00 SULEMA WRIGHT Sep 08, 2018 13:20
[2018-09-08] MEDS: GABAPENTIN 100 MG CAP PO SCH ×2 (13:25→20:58)
[2018-09-08] MEDS: LORAZEPAM 1 MG TAB PO SCH ×2 (13:25→20:58)
[2018-09-08] MEDS: LACTOBACILLUS RHAMNOSUS CAP PO SCH ×2 (13:25→21:30)
--- NOTE | 2018-09-08 13:29 | CONS ---
Assessment/Plan Assessment/Plan Hospital Course (Demo Recall) - s/p sepsis d/t bacteremia - fever and tachycardia resolved - bacteremia d/t Coag Neg Staph and Stenotrophomonas maltophilia on 09/01/2018 and 09/02/2018; repeat blood cultures 09/04/18 shows NGTD - h/o "bacteremia due to enterococci" according to progress notes at [facility], but the actual microbiology report indicated blood culture was positive for ESBL+E. coli - h/o fungemia due to rhonda glabrata, sensitive to fluconazole and to micafungin/caspofungin at [facility] - TTE done 09/04/18 showed no mention of valvular vegetations; EF 55-60% pulm - persistent hemoptysis of unknown etiology: Pt reports negative PPD last month at [facility]. - according to the microbiology report at [facility], Pt had ESBL+E. coli in her respiratory culture. Sputum cultures for AFB and fungi were negative at 8 weeks and at 4 weeks respectively at [facility] - Pt had negative bronchoscopy in 05/2018 at [facility], another at [facility] in 2017, and on 08/25/2018 at [facility] (no e/o bronchial airway bleeding according to Dr. Bello - Numerous tiny lung nodules, increased in number from the chest CT dated May 22, 2018, with largest measuring 0.3 cm in the left apex - Rhonda albicans in sputum cx on 08/28/2018 - likely colonizer - so far: aspergillus antibody not detected, HIV negative, coccidioidomycosis serology negative, TB Quant Gold negative, 1,3 beta d glucan negative, procalc 09/01/18 was 0.30 GI - Delgado-colitis per CT - S/p diarrhea on 09/06/18 - S/p sigmoidoscopy with biopsy 08/17/2018; path showed no e/o colitis or malignancy from transverse colon and rectum biopsies - S/p bloody diarrhea d/t Giardia; Pt took metronidazole for Giardia (08/14/2018- 08/21/2018) in 07/2018. - H/o C diff toxin negative PCR positive status at [facility]. Took a course of Fidaxomyxin x 10 days. C. diff was negative on 08/14/2018 at [facility] - H/o cholecystectomy heme/oncology - S/p CT guided bone marrow aspiration and biopsy 08/20/2018 - Microcytic anemia requiring PRBC d/t acute blood loss - Electrophoresis 08/19/18 showed: Evaluation suggests beta thalassemia trait with anemia. Iron deficiency must be ruled out. - H/o BUE and RLE DVT, s/p IVC filter in January 2018 - H/o Hodgkin lymphoma diagnosed in 2006 - H/o thyroid CA diagnosed in 2005, s/p resection, chemo and XRT - IVC filter placement - +Family hx of cancer (father of stomach CA, mother of lymphoma, paternal uncle had breast CA and 12 yo daughter has h/o brain tumor s/p surgery and resulting blindness) , renal - h/o UTI due to ESBL+E. coli - S/p PO levofloxacin (08/24/2018-08/28/2018) for probable UTI other conditions - a painful ulcer at frenulum, recurrent. According to Pt, topical steroid would worsen the pain. HIV negative, RPR non reactive, herpes 1 and 2 by PCR not detected; s/p trial of PO valacyclovir (08/27/2018-09/01/2018) - s/p bilateral conjunctivitis - improved s/p Cipro eye drops (08/18/18-08/23/18) - Hypothyroidism - HLD - S/p hypokalemia - OA - depression/anxiety - H/o x2 - Allergy to PCN and vancomycin (reaction unknown) Recommendations: - F/u repeat blood cultures 09/04/18 (NGTD) - Continue Daptomycin (clarify allergy to vanco) and Levaquin (09/05/18 - ) to complete 14 days from first negative blood culture; s/p Cefepime (09/03/18 - 09/05/18) - Serial CK level (<20 on 09/03/2018) while on Dapto - We recommend DC PICC - Trend fever curve (resolved) - Monitor for diarrhea (resolved today per pt) Consultation Date/Type/Reason Admit Date/Time Aug 13, 2018 at 17:22 Initial Consult Date 08/19/18 Requesting Provider: SHAQUILLE HARRIS Date/Time of Note DATE: 09/08/18 TIME: 13:29 24 HR Interval Summary Free Text/Dictation d/w nursing. patient is having diarrhea. there is a plan for cdiff today Exam/Review of Systems Exam Vitals Vital Signs Date Temp Pulse Resp B/P (MAP) Pulse Ox O2 O2 Flow FiO2 Time Delivery Rate 09/08/18 97.4 83 16 138/66 99 Room Air 08:15 (90) Intake and Output 09/07/18 09/07/18 09/08/18 1515:00 23:00 07:00 IntakeIntake Total 500 ml 1300 ml BalanceBalance 500 ml 1300 ml Constitutional: alert, oriented, well developed Psych: no complaints, nl mood/affect Eyes: nl conjunctiva, EOMI, nl lids, nl sclera, PERRL ENMT: nl external ears & nose, nl lips & teeth, nl nasal mucosa & septum Respiratory: clear to auscultation, normal air movement Cardiovascular: regular rate and rhythm, nl pulses Gastrointestinal: soft, nl liver, spleen, non-tender Results Result Diagram: 09/07/18 0549 09/07/18 0549 Results 24hrs Laboratory Tests Test 09/08/18 09:27 Lab Scanned Report REFERENCE LAB Medications Medication Current Medications IV Flush (NS 3 ml) 3 ml PER PROTOCOL IV ; Start 08/13/18 at 20:00 Ondansetron HCl (Zofran Inj) 4 mg Q6H PRN IV NAUSEA AND/OR VOMITING Last administered on 08/29/18 09:30; Admin Dose 4 MG; Start 08/13/18 at 20:00 Duloxetine HCl (Cymbalta) 60 mg DAILY PO Last administered on 09/08/18 08:43; Admin Dose 60 MG; Start 08/14/18 at 09:00 Levothyroxine Sodium (Synthroid) 50 mcg BEFORE BREAKFAST PO Last administered on 09/08/18 06:08; Admin Dose 50 MCG; Start 08/15/18 at 07:00 Alteplase, Recombinant (Cathflo (Activase)) 2 mg MAY REPEAT X1 PRN CATHETER IF CATHETER REMAINS OCCULUDED Last administered on 09/06/18at 11:28; Admin Dose 2 MG; Start 08/15/18 at 06:00 Cholecalciferol (Vitamin D) 2,000 unit DAILY PO Last administered on 09/08/18at 08:43; Admin Dose 2,000 UNIT; Start 08/17/18 at 09:00 Zinc Sulfate (Zinc Sulfate) 220 mg DAILY PO Last administered on 09/08/18 08:43; Admin Dose 220 MG; Start 08/17/18 at 09:00 Eye Lubricant (Artificial Tears Oph) 1 drop Q6H PRN BOTH EYES DRY EYES Last administered on 08/19/18at 00:00; Admin Dose 1 DROP; Start 08/16/18 at 23:30 Miscellaneous Information 1 ea NOTE XX ; Start 08/17/18 at 10:30 Glucose (Glutose) 15 gm Q15M PRN PO DECREASED GLUCOSE; Start 08/17/18 at 10:30 Glucose (Glutose) 22.5 gm Q15M PRN PO DECREASED GLUCOSE; Start 08/17/18 at 10:30 Dextrose (D50w Syringe) 25 ml Q15M PRN IV DECREASED GLUCOSE; Start 08/17/18 at 10:30 Dextrose (D50w Syringe) 50 ml Q15M PRN IV DECREASED GLUCOSE; Start 08/17/18 at 10:30 Glucagon (Glucagen) 1 mg Q15M PRN IM DECREASED GLUCOSE; Start 08/17/18 at 10:30 Glucose (Glutose) 15 gm Q15M PRN BUCCAL DECREASED GLUCOSE; Start 08/17/18 at 10:30 Zolpidem Tartrate (Ambien) 10 mg QHS PRN PO INSOMNIA Last administered on 09/07/18at 21:45; Admin Dose 10 MG; Start 08/20/18 at 11:30 Phenol (Cepastat Lozenge) 1 lozenge Q1H PRN MT THROAT PAIN Last administered on 09/07/18 08:42; Admin Dose 1 LOZENGE; Start 08/21/18 at 11:00 Pantoprazole (Protonix Tab) 40 mg BID PO Last administered on 09/08/18 08:43; Admin Dose 40 MG; Start 08/25/18 at 09:00 Diphenhydramine HCl (Benadryl) 50 mg Q6H PRN IV ITCHING Last administered on 09/08/18 08:05; Admin Dose 50 MG; Start 08/26/18 at 21:00 Acetaminophen (Tylenol Tab) 500 mg Q6H PRN PO MILD PAIN(1-3)OR ELEVATED TEMP; Start 09/01/18 at 18:30 Lidocaine (Xylocaine (Viscous)) 15 ml QID PRN PO Pain in the mouth; Start 09/02/18 at 10:30 Daptomycin 500 mg/ Sodium Chloride 100 ml @ 200 mls/hr Q24H IVPB Last administered on 09/06/18at 17:33; Admin Dose 200 MLS/HR; Start 09/03/18 at 16:00 Levofloxacin/ Dextrose 100 ml @ 100 mls/hr Q24H IVPB Last administered on 09/07/18at 17:32; Admin Dose 100 MLS/HR; Start 09/05/18 at 16:30; Stop 09/19/18 at 16:29 Tramadol HCl (Ultram) 50 mg Q6H PRN PO MODERATE PAIN LEVEL 4-6 Last administered on 09/08/18at 08:05; Admin Dose 50 MG; Start 09/07/18 at 11:00 Lorazepam (Ativan) 1 mg Q8H PRN IV Anxiety; Start 09/08/18 at 12:00 Gabapentin (Neurontin) 100 mg TID PO ; Start 09/08/18 at 13:00 Trazodone HCl (Desyrel) 50 mg BID PO ; Start 09/08/18 at 12:30 Lorazepam (Ativan) 1 mg Q12 PO ; Start 09/08/18 at 12:00 Ibuprofen (Motrin) 600 mg Q8 PRN PO SEVERE PAIN LEVEL 7-10; Start 09/08/18 at 12:00; Status UNV Lactobacillus Acidophilus/ Rhamnosus (Culturelle) 1 cap BID PO ; Start 09/08/18 at 12:00 AUREA MEDINA MD Sep 08, 2018 13:29
[2018-09-08] MEDS: traZODone 50 MG TAB PO SCH ×2 (13:30→20:58)
[2018-09-08 14:29] VITALS: BP 118/64; PULSE 87; RESP 18
[2018-09-08] MEDS: DAPTOMYCIN 500 MG in SOD CHLORIDE 0.9% 100 ML IVPB SCH (16:06)
[2018-09-08] MEDS: LEVOFLOXACIN 500MG/D5W (PMX) 100 ML IVPB SCH (16:56)
[2018-09-08] MEDS: ONDANSETRON 4 MG INJ IV PRN (18:27)
[2018-09-08 20:00] VITALS: BP 120/61; PULSE 91; RESP 19
[2018-09-08] MEDS: ZOLPIDEM 5 MG TAB PO PRN (21:00)
--- NOTE | 2018-09-08 22:54 | PN ---
Date/Time of Note Date/Time of Note DATE: 09/08/18 TIME: 22:50 Assessment/Plan VTE Prophylaxis Risk score (from Ns)>0 risk: 7 SCD applied (from Ns): No SCD contraindicated: low risk/ambulating Pharmacological prophylaxis: LMWH Lines/Catheters IV [facility]ter [facility] PICC Line Central line still needed: Yes Urinary Cath still in place: No Assessment/Plan Hospital Course A/P 1. Hemoptysis? bronch/ egd/ laryngoscopy (09/01): nrml. Past egd/bronch in [place] also unremarkable. Refused tertiary eval in the past. No pathological lesions or scars. No bleeding diathesis. 2. H/o HL - chemo/ xrt; repeat chemo [facility]. Sp BmBx-appears negative. 3. Ho PE/ Dvt, ivc filter status 4. Diarrhea/ giardia; Rxed; however occ diarrhea noted colon 08/17; patchy colitis 5. H//o c diff 6. H/o thyroid nodule? 5. UTI 6. H/o H pylori; EGD- 'ulcers' within the last year. Current EGD -ve. 7. Cons bacteremia 09/01. Stenotrophomonas maltophilia bacteremia 09/03: 2D -ve for veg. Source colon? Recent colonoscopy does not show any mass/ cancer. Immunosuppressed? 8. Anemia; beta thalassemia trait; sp bone marrow 08/20 negative; spep. 9.. Chronic pain syndrome. Pain seeking behavior. 10. Prediabetes? 11. Ulcer of the frenulum linguae. 12. Failure to thrive, stable discharge to snf once bed available. 13. Pulmonary nodules, stable, observe. Repeat imaging in 3 months. S: 08/23 feels ok; still bleeding. no dyspnea/ fever 08/24: Events noted still having hemoptysis. No hematuria 08/25: Hemoptysis again this morning? Patient denies any hematemesis or epistaxis 08/26: Recurrent hemoptysis this morning. No dyspnea fever 08/27: Still having hemoptysis? No hematochezia melena hematuria or epistaxis. No dyspnea fever. 08/28: Events noted. She is worried about her hemoptysis. 3: Still bringing out a lot of blood. Hemoptysis versus hematemesis. Chronic stable we will consult GI. 09/06: Intermittent hemoptysis. Now having diarrhea without any GI bleed. No fevers. 09/07: Intermittent hemoptysis. Denies any fever vomiting GI bleed. No dyspnea. Does not have a regular oncologist and no outpatient support. Will need snf 09/08: 4 bouts diarrhea. no n/f. 'pain' in legs, abd. no known agg/rel factors. toradol- headache? no h/o rash/ dyspnea O: vss PE No pallor Reg Clear Benign, nt nd; no RRG No edema Result Diagram: 09/07/18 0549 09/07/18 0549 Results 24hrs Laboratory Tests Test 09/08/18 09:27 Lab Scanned Report REFERENCE LAB Exam/Review of Systems Exam Vitals Vital Signs Date Temp Pulse Resp B/P (MAP) Pulse Ox O2 O2 Flow FiO2 Time Delivery Rate 09/08/18 98.2 91 19 120/61 96 20:00 (80) 09/08/18 Room Air 14:29 Intake and Output 09/07/18 09/07/18 09/08/18 1515:00 23:00 07:00 IntakeIntake Total 500 ml 1300 ml BalanceBalance 500 ml 1300 ml Results Results 24hrs Laboratory Tests Test 09/08/18 09:27 Lab Scanned Report REFERENCE LAB Medications Medication Current Medications IV Flush (NS 3 ml) 3 ml PER PROTOCOL IV ; Start 08/13/18 at 20:00 Ondansetron HCl (Zofran Inj) 4 mg Q6H PRN IV NAUSEA AND/OR VOMITING Last administered on 09/08/18at 18:27; Admin Dose 4 MG; Start 08/13/18 at 20:00 Duloxetine HCl (Cymbalta) 60 mg DAILY PO Last administered on 09/08/18at 08:43; Admin Dose 60 MG; Start 08/14/18 at 09:00 Levothyroxine Sodium (Synthroid) 50 mcg BEFORE BREAKFAST PO Last administered on 09/08/18at 06:08; Admin Dose 50 MCG; Start 08/15/18 at 07:00 Alteplase, Recombinant (Cathflo (Activase)) 2 mg MAY REPEAT X1 PRN CATHETER IF CATHETER REMAINS OCCULUDED Last administered on 09/06/18at 11:28; Admin Dose 2 MG; Start 08/15/18 at 06:00 Cholecalciferol (Vitamin D) 2,000 unit DAILY PO Last administered on 09/08/18 08:43; Admin Dose 2,000 UNIT; Start 08/17/18 at 09:00 Zinc Sulfate (Zinc Sulfate) 220 mg DAILY PO Last administered on 09/08/18 08:43; Admin Dose 220 MG; Start 08/17/18 at 09:00 Eye Lubricant (Artificial Tears Oph) 1 drop Q6H PRN BOTH EYES DRY EYES Last administered on 08/19/18at 00:00; Admin Dose 1 DROP; Start 08/16/18 at 23:30 Miscellaneous Information 1 ea NOTE XX ; Start 08/17/18 at 10:30 Glucose (Glutose) 15 gm Q15M PRN PO DECREASED GLUCOSE; Start 08/17/18 at 10:30 Glucose (Glutose) 22.5 gm Q15M PRN PO DECREASED GLUCOSE; Start 08/17/18 at 10:30 Dextrose (D50w Syringe) 25 ml Q15M PRN IV DECREASED GLUCOSE; Start 08/17/18 at 10:30 Dextrose (D50w Syringe) 50 ml Q15M PRN IV DECREASED GLUCOSE; Start 08/17/18 at 10:30 Glucagon (Glucagen) 1 mg Q15M PRN IM DECREASED GLUCOSE; Start 08/17/18 at 10:30 Glucose (Glutose) 15 gm Q15M PRN BUCCAL DECREASED GLUCOSE; Start 08/17/18 at 10:30 Zolpidem Tartrate (Ambien) 10 mg QHS PRN PO INSOMNIA Last administered on 09/08/18at 21:00; Admin Dose 10 MG; Start 08/20/18 at 11:30 Phenol (Cepastat Lozenge) 1 lozenge Q1H PRN MT THROAT PAIN Last administered on 09/07/18 08:42; Admin Dose 1 LOZENGE; Start 08/21/18 at 11:00 Pantoprazole (Protonix Tab) 40 mg BID PO Last administered on 09/08/18 20:58; Admin Dose 40 MG; Start 08/25/18 at 09:00 Diphenhydramine HCl (Benadryl) 50 mg Q6H PRN IV ITCHING Last administered on 09/08/18 20:05; Admin Dose 50 MG; Start 08/26/18 at 21:00 Acetaminophen (Tylenol Tab) 500 mg Q6H PRN PO MILD PAIN(1-3)OR ELEVATED TEMP; Start 09/01/18 at 18:30 Lidocaine (Xylocaine (Viscous)) 15 ml QID PRN PO Pain in the mouth; Start 09/02/18 at 10:30 Daptomycin 500 mg/ Sodium Chloride 100 ml @ 200 mls/hr Q24H IVPB Last administered on 09/08/18 16:06; Admin Dose 200 MLS/HR; Start 09/03/18 at 16:00 Levofloxacin/ Dextrose 100 ml @ 100 mls/hr Q24H IVPB Last administered on 09/08/18 16:56; Admin Dose 100 MLS/HR; Start 09/05/18 at 16:30; Stop 09/19/18 at 16:29 Tramadol HCl (Ultram) 50 mg Q6H PRN PO MODERATE PAIN LEVEL 4-6 Last administered on 09/08/18 20:06; Admin Dose 50 MG; Start 09/07/18 at 11:00 Lorazepam (Ativan) 1 mg Q8H PRN IV Anxiety Last administered on 09/08/18 16:13; Admin Dose 1 MG; Start 09/08/18 at 12:00 Gabapentin (Neurontin) 100 mg TID PO Last administered on 09/08/18 20:58; Admin Dose 100 MG; Start 09/08/18 at 13:00 Trazodone HCl (Desyrel) 50 mg BID PO Last administered on 09/08/18 20:58; Admin Dose 50 MG; Start 09/08/18 at 12:30 Lorazepam (Ativan) 1 mg Q12 PO Last administered on 09/08/18 20:58; Admin Dose 1 MG; Start 09/08/18 at 12:00 Lactobacillus Acidophilus/ Rhamnosus (Culturelle) 1 cap BID PO Last administer ed on 09/08/18 21:30; Admin Dose 1 CAP; Start 09/08/18 at 12:00 Ibuprofen (Motrin) 600 mg Q8 PRN PO SEVERE PAIN LEVEL 7-10; Start 09/08/18 at 19:00 LEON CORONA MD Sep 08, 2018 22:54
[2018-09-09 02:00] VITALS: BP 139/70; PULSE 79; RESP 18
[2018-09-09] MEDS: LORAZEPAM 2 MG INJ IV PRN ×2 (04:55→12:13)
[2018-09-09 06:05] VITALS: BP 112/64; PULSE 74; RESP 18
[2018-09-09] MEDS: LEVOTHYROXINE 50 MCG TAB PO SCH (06:06)
[2018-09-09] MEDS: traMADol 50 MG TAB PO PRN ×3 (06:08→16:27)
[2018-09-09] MEDS: DIPHENHYDRAMINE 50 MG INJ IV PRN ×4 (06:11→23:09)
--- NOTE | 2018-09-09 06:51 | CONS ---
Assessment/Plan Assessment/Plan Assessment/Plan (Daily) h/o Lymphoma -thus far there are no lesions that can be biopsied and it does not appear she has active cancer #Anemia-hgb 8.2 today- sp 2 units of PRBC -Hgb Electrophoresis - confirms B- thalassemia trait with Anemia -pt has had microcytic anemia requiring transfusions for years -will order a bone marrow bx at this time- pending -anemia panel-anemia positive # Hemoptysis VS Hematemesis - GI follows - 08/31/2018- S/P esophagogastroduodenoscopy- showed no evidence of any gastrointestinal bleed. #Hemoptysis, recurrent. -s/p unremarkable bronchoscopy at [facility] -s/p unremarkable flexible laryngoscopy 02/05/17 at [facility] -CT Chest pulmonary nodules are noted but are too small to biopsy -ID workup pending for pulmonary nodules- Numerous tiny lung nodules, increased in number from the chest CT dated May 22, 2018, with largest measuring 0.3 cm in the left apex - 02/2018- negative TB workup -08/21/18-CT Chest Angio- no new changes. will do Follow-up CT in X 3-4 months to insure stability as recommended - 08/24/18- Repeat bronchoscopy - wnl - Given her platelets and coag panel are wnl; Bronchoscopy is wnl #pancolitis. -Colonoscopy on 08/17/2018 showed patchy colitis. bx was negative -Stool positive for Giardia- pt on vancomycin and flagyl Patient seen in collaboration with Dr Brown. Dw Staff Consultation Date/Type/Reason Admit Date/Time Aug 13, 2018 at 5:22 pm Initial Consult Date 08/19/18 Type of Consult ONCOLOGY Reason for Consultation Hx LYMPHOMA' Requesting Provider: SHAQUILLE HARRIS Date/Time of Note DATE: 09/09/18 TIME: 06:46 24 HR Interval Summary Free Text/Dictation sleeping; easily awakens when called - patient reports her coughing blood is better than yesterday no new events reported last night Constitutional: improved Detailed Summary Eyes: no complaints ENT: no complaints Respiratory: cough (cough w/blood is less than before) Genitourinary: no complaints Musculoskeletal: other (general weakness) Skin: no complaints Neurologic: no complaints Endocrine: no complaints Psychological: nl mood/affect Immunologic: no complaints Exam/Review of Systems Exam Vitals Vital Signs Date Temp Pulse Resp B/P (MAP) Pulse Ox O2 O2 Flow FiO2 Time Delivery Rate 09/09/18 74 18 112/64 06:05 (80) 09/09/18 97.5 97 02:00 09/08/18 Room Air 14:29 Intake and Output 09/08/18 09/08/18 09/09/18 1515:00 23:00 07:00 IntakeIntake Total 1360 ml BalanceBalance 1360 ml Constitutional: alert, well developed Psych: nl mood/affect Eyes: EOMI, nl sclera ENMT: nl external ears & nose Neck: non-tender Respiratory: diminished breath sounds (at bases) Cardiovascular: nl pulses, other (s1s2) Gastrointestinal: soft, non-tender Musculoskeletal: nl extremities to inspection Extremities: normal pulses Neurological: nl speech, other (alerr/responsive) Skin: nl turgor Lymph: nontender Results Result Diagram: 09/07/18 0549 09/07/18 0549 Results 24hrs Laboratory Tests Test 09/08/18 09:27 Lab Scanned Report REFERENCE LAB Medications Medication Current Medications IV Flush (NS 3 ml) 3 ml PER PROTOCOL IV ; Start 08/13/18 at 20:00 Ondansetron HCl (Zofran Inj) 4 mg Q6H PRN IV NAUSEA AND/OR VOMITING Last administered on 09/08/18at 18:27; Admin Dose 4 MG; Start 08/13/18 at 20:00 Duloxetine HCl (Cymbalta) 60 mg DAILY PO Last administered on 09/08/18 08:43; Admin Dose 60 MG; Start 08/14/18 at 09:00 Levothyroxine Sodium (Synthroid) 50 mcg BEFORE BREAKFAST PO Last administered on 09/09/18 06:06; Admin Dose 50 MCG; Start 08/15/18 at 07:00 Alteplase, Recombinant (Cathflo (Activase)) 2 mg MAY REPEAT X1 PRN CATHETER IF CATHETER REMAINS OCCULUDED Last administered on 09/06/18at 11:28; Admin Dose 2 MG; Start 08/15/18 at 06:00 Cholecalciferol (Vitamin D) 2,000 unit DAILY PO Last administered on 09/08/18 08:43; Admin Dose 2,000 UNIT; Start 08/17/18 at 09:00 Zinc Sulfate (Zinc Sulfate) 220 mg DAILY PO Last administered on 09/08/18at 08:43; Admin Dose 220 MG; Start 08/17/18 at 09:00 Eye Lubricant (Artificial Tears Oph) 1 drop Q6H PRN BOTH EYES DRY EYES Last administered on 08/19/18at 00:00; Admin Dose 1 DROP; Start 08/16/18 at 23:30 Miscellaneous Information 1 ea NOTE XX ; Start 08/17/18 at 10:30 Glucose (Glutose) 15 gm Q15M PRN PO DECREASED GLUCOSE; Start 08/17/18 at 10:30 Glucose (Glutose) 22.5 gm Q15M PRN PO DECREASED GLUCOSE; Start 08/17/18 at 10:30 Dextrose (D50w Syringe) 25 ml Q15M PRN IV DECREASED GLUCOSE; Start 08/17/18 at 10:30 Dextrose (D50w Syringe) 50 ml Q15M PRN IV DECREASED GLUCOSE; Start 08/17/18 at 10:30 Glucagon (Glucagen) 1 mg Q15M PRN IM DECREASED GLUCOSE; Start 08/17/18 at 10:30 Glucose (Glutose) 15 gm Q15M PRN BUCCAL DECREASED GLUCOSE; Start 08/17/18 at 10:30 Zolpidem Tartrate (Ambien) 10 mg QHS PRN PO INSOMNIA Last administered on 09/08/18at 21:00; Admin Dose 10 MG; Start 08/20/18 at 11:30 Phenol (Cepastat Lozenge) 1 lozenge Q1H PRN MT THROAT PAIN Last administered on 09/07/18 08:42; Admin Dose 1 LOZENGE; Start 08/21/18 at 11:00 Pantoprazole (Protonix Tab) 40 mg BID PO Last administered on 09/08/18at 20:58; Admin Dose 40 MG; Start 08/25/18 at 09:00 Diphenhydramine HCl (Benadryl) 50 mg Q6H PRN IV ITCHING Last administered on 09/09/18at 06:11; Admin Dose 50 MG; Start 08/26/18 at 21:00 Acetaminophen (Tylenol Tab) 500 mg Q6H PRN PO MILD PAIN(1-3)OR ELEVATED TEMP; Start 09/01/18 at 18:30 Lidocaine (Xylocaine (Viscous)) 15 ml QID PRN PO Pain in the mouth; Start 09/02/18 at 10:30 Daptomycin 500 mg/ Sodium Chloride 100 ml @ 200 mls/hr Q24H IVPB Last administered on 09/08/18 16:06; Admin Dose 200 MLS/HR; Start 09/03/18 at 16:00 Levofloxacin/ Dextrose 100 ml @ 100 mls/hr Q24H IVPB Last administered on 09/08/18 16:56; Admin Dose 100 MLS/HR; Start 09/05/18 at 16:30; Stop 09/19/18 at 16:29 Tramadol HCl (Ultram) 50 mg Q6H PRN PO MODERATE PAIN LEVEL 4-6 Last administered on 09/09/18 06:08; Admin Dose 50 MG; Start 09/07/18 at 11:00 Lorazepam (Ativan) 1 mg Q8H PRN IV Anxiety Last administered on 09/09/18 04:55; Admin Dose 1 MG; Start 09/08/18 at 12:00 Gabapentin (Neurontin) 100 mg TID PO Last administered on 09/08/18 20:58; Admin Dose 100 MG; Start 09/08/18 at 13:00 Trazodone HCl (Desyrel) 50 mg BID PO Last administered on 09/08/18 20:58; Admin Dose 50 MG; Start 09/08/18 at 12:30 Lorazepam (Ativan) 1 mg Q12 PO Last administered on 09/08/18 20:58; Admin Dose 1 MG; Start 09/08/18 at 12:00 Lactobacillus Acidophilus/ Rhamnosus (Culturelle) 1 cap BID PO Last administer ed on 09/08/18 21:30; Admin Dose 1 CAP; Start 09/08/18 at 12:00 Ibuprofen (Motrin) 600 mg Q8 PRN PO SEVERE PAIN LEVEL 7-10; Start 09/08/18 at 19:00 SULEMA WRIGHT Sep 09, 2018 6:51 am
[2018-09-09 07:56] VITALS: BP 116/70; PULSE 70; RESP 20
[2018-09-09] MEDS: CHOLECALCIFEROL 2,000 UNIT CAP PO SCH (08:32)
[2018-09-09] MEDS: DULOXETINE 30 MG CAP DR PO SCH (08:32)
[2018-09-09] MEDS: LACTOBACILLUS RHAMNOSUS CAP PO SCH ×2 (08:33→21:16)
[2018-09-09] MEDS: GABAPENTIN 100 MG CAP PO SCH ×3 (08:33→21:16)
[2018-09-09] MEDS: traZODone 50 MG TAB PO SCH ×2 (08:33→21:16)
[2018-09-09] MEDS: LORAZEPAM 1 MG TAB PO SCH ×2 (08:33→21:16)
[2018-09-09] MEDS: ZINC SULFATE 220 MG CAP PO SCH (08:33)
[2018-09-09] MEDS: PANTOPRAZOLE (EC) 40 MG TAB PO SCH ×2 (08:33→21:16)
--- NOTE | 2018-09-09 15:51 | CONS ---
Assessment/Plan Assessment/Plan Hospital Course (Demo Recall) sepsis, bloodstream infection - s/p sepsis d/t bacteremia - fever and tachycardia resolved - bacteremia d/t Coag Neg Staph and Stenotrophomonas maltophilia on 09/01/2018 and 09/02/2018; repeat blood cultures 09/04/18 negative - h/o "bacteremia due to enterococci" according to progress notes at [facility], but the actual microbiology report indicated blood culture was positive for ESBL+E. coli - h/o fungemia due to kaley glabrata, sensitive to fluconazole and to micafungin/caspofungin at [facility] - TTE done 09/04/18 showed no mention of valvular vegetations; EF 55-60% pulm - persistent hemoptysis of unknown etiology: Pt reports negative PPD last month at [facility]. - according to the microbiology report at [facility], Pt had ESBL+E. coli in her respiratory culture. Sputum cultures for AFB and fungi were negative at 8 weeks and at 4 weeks respectively at [facility] - Pt had negative bronchoscopy in 05/2018 at [facility], another at [facility] in 2017, and on 08/25/2018 at [facility] (no e/o bronchial airway bleeding according to Dr. Bello - Numerous tiny lung nodules, increased in number from the chest CT dated May 22, 2018, with largest measuring 0.3 cm in the left apex - Kaley albicans in sputum cx on 08/28/2018 - likely colonizer - so far: aspergillus antibody not detected, HIV negative, coccidioidomycosis serology negative, TB Quant Gold negative, 1,3 beta d glucan negative, procalc 09/01/18 was 0.30 GI - Delgado-colitis per CT - S/p diarrhea on 09/06/18 - S/p sigmoidoscopy with biopsy 08/17/2018; path showed no e/o colitis or malignancy from transverse colon and rectum biopsies - S/p bloody diarrhea d/t Giardia; Pt took metronidazole for Giardia (08/14/2018- 08/21/2018) in 07/2018. - H/o C diff toxin negative PCR positive status at [facility]. Took a course of Fidaxomyxin x 10 days. C. diff was negative on 08/14/2018 at [facility] - H/o cholecystectomy heme/oncology - S/p CT guided bone marrow aspiration and biopsy 08/20/2018 - Microcytic anemia requiring PRBC d/t acute blood loss - Electrophoresis 08/19/18 showed: Evaluation suggests beta thalassemia trait with anemia. Iron deficiency must be ruled out. - H/o BUE and RLE DVT, s/p IVC filter in January 2018 - H/o Hodgkin lymphoma diagnosed in 2006 - H/o thyroid CA diagnosed in 2005, s/p resection, chemo and XRT - IVC filter placement - +Family hx of cancer (father of stomach CA, mother of lymphoma, paternal uncle had breast CA and 12 yo daughter has h/o brain tumor s/p surgery and resulting blindness) , renal - h/o UTI due to ESBL+E. coli - S/p PO levofloxacin (08/24/2018-08/28/2018) for probable UTI other conditions - a painful ulcer at frenulum, recurrent. According to Pt, topical steroid would worsen the pain. HIV negative, RPR non reactive, herpes 1 and 2 by PCR not detected; s/p trial of PO valacyclovir (08/27/2018-09/01/2018) - s/p bilateral conjunctivitis - improved s/p Cipro eye drops (08/18/18-08/23/18) - Hypothyroidism - HLD - S/p hypokalemia - OA - depression/anxiety - H/o x2 - Allergy to PCN and vancomycin (reaction unknown) Recommendations: - F/u CXR (just ordered) - Continue Daptomycin (clarify allergy to vanco; 09/02/2018-) and Levaquin (-08/27/2018; restart 09/05/2018-) to complete 14 days from first negative blood culture; s/p Cefepime (09/03/18 - 09/05/18) - Serial CK level (<20 on 09/03/2018) while on Dapto (ordered for AM) - Consider GI re-evaluation - suspect bacteremia originating from colitis - We recommend DC PICC - Trend fever curve (resolved) - Monitor for diarrhea (resolved) Management d/w FERNANDO Rodas, charge nurse Nubia, Dr. Lopez, and with Dr. Hansen. Consultation Date/Type/Reason Admit Date/Time Aug 13, 2018 at 17:22 Initial Consult Date 08/19/18 Type of Consult Infectious Disease Requesting Provider: SHAQUILLE HARRIS Date/Time of Note DATE: 09/09/18 TIME: 15:49 24 HR Interval Summary Free Text/Dictation Pt had transferred to 5 [facility] floor. Dilaudid was dc'd on 09/07/2018. [employer] was called for pt coughing up blood with clots, "75 ml of bright red blood noted in a cylinder", per nursing. Pt is c/o severe pain rating 10/10 and is crying uncontrollably. Asking for pain medication. Denies diarrhea. Exam/Review of Systems Exam Vitals Vital Signs Date Temp Pulse Resp B/P (MAP) Pulse Ox O2 O2 Flow FiO2 Time Delivery Rate 09/09/18 98.0 70 20 116/70 98 Room Air 07:56 (85) Intake and Output 09/08/18 09/08/18 09/09/18 1515:00 23:00 07:00 IntakeIntake Total 1360 ml BalanceBalance 1360 ml Exam Constitutional: alert, oriented, well developed, other (crying uncontrollably) Psych: anxiety, depression Head: normocephalic, atraumatic Eyes: nl conjunctiva, nl lids, nl sclera ENMT: nl external ears & nose, nl nasal mucosa & septum, mucosa pink and moist, other (white ulcer of the frenulum linguae - slightly improved from prior exam) Neck: supple, non-tender Respiratory: normal air movement, crackles/rales, other (bloody phlegm noted in plastic cylinder at bedside) Cardiovascular: regular rate and rhythm, nl pulses Gastrointestinal: soft, non-tender; No distended Genitourinary - Female: other (no [place]) Musculoskeletal: nl extremities to inspection No swelling Extremities: normal pulses, other (LUE PICC c/d/i) Neurological: other (pressured speech, crying, walking in room from BR back to bed with steady gait) Skin: nl turgor; No rash or lesions Results Result Diagram: 09/07/18 0549 09/07/18 0549 Imaging Imaging TTE 09/04/2018: Normal left ventricular systolic function. Normal left ventricular cavity size. Normal left ventricular wall thickness. Ejection fraction is visually estimated at 55-60 %. Tissue Doppler/Mitral Doppler indices are consistent with impaired relaxation (Stage I diastolic dysfunction). ). Normal appearance of the mitral valve. Trace mitral regurgiutation. Normal appearance of the tricuspid valve. There is trace to mild tricuspid regurgitation. Medications Medication Current Medications IV Flush (NS 3 ml) 3 ml PER PROTOCOL IV ; Start 08/13/18 at 20:00 Ondansetron HCl (Zofran Inj) 4 mg Q6H PRN IV NAUSEA AND/OR VOMITING Last administered on 09/08/18 18:27; Admin Dose 4 MG; Start 08/13/18 at 20:00 Duloxetine HCl (Cymbalta) 60 mg DAILY PO Last administered on 09/09/18 08:32; Admin Dose 60 MG; Start 08/14/18 at 09:00 Levothyroxine Sodium (Synthroid) 50 mcg BEFORE BREAKFAST PO Last administered on 09/09/18 06:06; Admin Dose 50 MCG; Start 08/15/18 at 07:00 Alteplase, Recombinant (Cathflo (Activase)) 2 mg MAY REPEAT X1 PRN CATHETER IF CATHETER REMAINS OCCULUDED Last administered on 09/06/18at 11:28; Admin Dose 2 MG; Start 08/15/18 at 06:00 Cholecalciferol (Vitamin D) 2,000 unit DAILY PO Last administered on 09/09/18 08:32; Admin Dose 2,000 UNIT; Start 08/17/18 at 09:00 Zinc Sulfate (Zinc Sulfate) 220 mg DAILY PO Last administered on 09/09/18 08:3 3; Admin Dose 220 MG; Start 08/17/18 at 09:00 Eye Lubricant (Artificial Tears Oph) 1 drop Q6H PRN BOTH EYES DRY EYES Last administered on 08/19/18 00:00; Admin Dose 1 DROP; Start 08/16/18 at 23:30 Miscellaneous Information 1 ea NOTE XX ; Start 08/17/18 at 10:30 Glucose (Glutose) 15 gm Q15M PRN PO DECREASED GLUCOSE; Start 08/17/18 at 10:30 Glucose (Glutose) 22.5 gm Q15M PRN PO DECREASED GLUCOSE; Start 08/17/18 at 10:30 Dextrose (D50w Syringe) 25 ml Q15M PRN IV DECREASED GLUCOSE; Start 08/17/18 at 10:30 Dextrose (D50w Syringe) 50 ml Q15M PRN IV DECREASED GLUCOSE; Start 08/17/18 at 10:30 Glucagon (Glucagen) 1 mg Q15M PRN IM DECREASED GLUCOSE; Start 08/17/18 at 10:30 Glucose (Glutose) 15 gm Q15M PRN BUCCAL DECREASED GLUCOSE; Start 08/17/18 at 10:30 Zolpidem Tartrate (Ambien) 10 mg QHS PRN PO INSOMNIA Last administered on 09/08/18 21:00; Admin Dose 10 MG; Start 08/20/18 at 11:30 Phenol (Cepastat Lozenge) 1 lozenge Q1H PRN MT THROAT PAIN Last administered on 09/07/18 08:42; Admin Dose 1 LOZENGE; Start 08/21/18 at 11:00 Pantoprazole (Protonix Tab) 40 mg BID PO Last administered on 09/09/18 08:33; Admin Dose 40 MG; Start 08/25/18 at 09:00 Diphenhydramine HCl (Benadryl) 50 mg Q6H PRN IV ITCHING Last administered on 09/09/18 10:32; Admin Dose 50 MG; Start 08/26/18 at 21:00 Acetaminophen (Tylenol Tab) 500 mg Q6H PRN PO MILD PAIN(1-3)OR ELEVATED TEMP; Start 09/01/18 at 18:30 Lidocaine (Xylocaine (Viscous)) 15 ml QID PRN PO Pain in the mouth; Start 09/02/18 at 10:30 Daptomycin 500 mg/ Sodium Chloride 100 ml @ 200 mls/hr Q24H IVPB Last administered on 09/08/18 16:06; Admin Dose 200 MLS/HR; Start 09/03/18 at 16:00 Levofloxacin/ Dextrose 100 ml @ 100 mls/hr Q24H IVPB Last administered on 09/08/18 16:56; Admin Dose 100 MLS/HR; Start 09/05/18 at 16:30; Stop 09/19/18 at 16:29 Tramadol HCl (Ultram) 50 mg Q6H PRN PO MODERATE PAIN LEVEL 4-6 Last administered on 09/09/18 10:30; Admin Dose 50 MG; Start 09/07/18 at 11:00 Lorazepam (Ativan) 1 mg Q8H PRN IV Anxiety Last administered on 09/09/18 12:13; Admin Dose 1 MG; Start 09/08/18 at 12:00 Gabapentin (Neurontin) 100 mg TID PO Last administered on 09/09/18 12:07; Admin Dose 100 MG; Start 09/08/18 at 13:00 Trazodone HCl (Desyrel) 50 mg BID PO Last administered on 09/09/18 08:33; Admin Dose 50 MG; Start 09/08/18 at 12:30 Lorazepam (Ativan) 1 mg Q12 PO Last administered on 09/09/18 08:33; Admin Dose 1 MG; Start 09/08/18 at 12:00 Lactobacillus Acidophilus/ Rhamnosus (Culturelle) 1 cap BID PO Last adminis tered on 09/09/18 08:33; Admin Dose 1 CAP; Start 09/08/18 at 12:00 Ibuprofen (Motrin) 600 mg Q8 PRN PO SEVERE PAIN LEVEL 7-10; Start 09/08/18 at 19:00 RICHARD APPLE NP Sep 09, 2018 15:51
--- NOTE | 2018-09-09 16:40 | PN ---
Date/Time of Note Date/Time of Note DATE: 09/09/18 TIME: 16:36 Assessment/Plan VTE Prophylaxis Risk score (from Ns)>0 risk: 2 SCD applied (from Ns): No SCD contraindicated: low risk/ambulating Pharmacological prophylaxis: NA/contraindicated Pharm contraindication: low risk/ambulating, bleeding Lines/Catheters IV Catheter Type (from [facility]): PICC Line Central line still needed: Yes Urinary Cath still in place: No Assessment/Plan Hospital Course A/P 1. Hemoptysis? bronch/ egd/ laryngoscopy (09/01): nrml. Past egd/bronch in [place] unremarkable. Refused tertiary eval in past. No path lesions/ scars. No bleeding diathesis. Recurrent hemoptysis noted. Patient was transfused 2 units yesterday. 2. H/o HL '08- chemo/ xrt; repeat chemo US. Sp BmBx-appears negative. 3. Ho PE/ Dvt, ivc filter status 4. Diarrhea/ giardia; Rxed; however occ diarrhea noted colon 08/17; patchy colitis 5. H//o c diff 6. H/o thyroid nodule? 5. UTI 6. H/o H pylori; EGD- 'ulcers' within the last year. Current EGD -ve. 7. Cons bacteremia 09/01. Stenotrophomonas maltophilia bacteremia 09/03: 2D -ve for veg. Source colon? Recent colonoscopy does not show any mass/ cancer. Immunosuppressed? 8. Anemia; beta thalassemia trait; sp bone marrow 08/20 negative; spep. 9.. Chronic pain syndrome. Pain seeking behavior. 10. Prediabetes? 11. Ulcer of the frenulum linguae. 12. Failure to thrive, stable discharge to snf once bed available. 13. Pulmonary nodules, stable, observe. Repeat imaging in 3 months. S: 08/23 feels ok; still bleeding. no dyspnea/ fever 08/24: Events noted still having hemoptysis. No hematuria 08/25: Hemoptysis again this morning? Patient denies any hematemesis or ep istaxis 08/26: Recurrent hemoptysis this morning. No dyspnea fever 08/27: Still having hemoptysis? No hematochezia melena hematuria or epistaxis. No dyspnea fever. 08/28: Events noted. She is worried about her hemoptysis. 08/29: Still bringing out a lot of blood. Hemoptysis versus hematemesis. Chronic stable we will consult GI. 09/06: Intermittent hemoptysis. Now having diarrhea without any GI bleed. No fevers. 09/07: Intermittent hemoptysis. Denies any fever vomiting GI bleed. No dyspnea. Does not have a regular oncologist and no outpatient support. Will need snf 09/08: 4 bouts diarrhea. no n/f. 'pain' in legs, abd. no known agg/rel factors. toradol- headache? no h/o rash/ dyspnea 09/09: Hemoptysis noted again. 77 m? [employer], vss. crying, but refusing working/ cxr. Patient denies any chest pain postnasal drip. No GI bleed noted. States of having lower abdominal suprapubic tenderness but no dysuria hematuria. Back pain upper/ around her shoulder blades. O: vss PE No pallor/adenopathy. Throat clear adentous Reg Clear Benign, mild suprapubic/ llq tendernes; nd; no RRG or cvat; back - no erythema/ warmth No edema Result Diagram: 09/09/18 1540 09/07/18 0549 Results 24hrs Laboratory Tests Test 09/09/18 15:40 White Blood Count 7.8 # Red Blood Count 4.02 #L Hemoglobin 9.6 L Hematocrit 30.4 L Mean Corpuscular Volume 75.6 L Mean Corpuscular Hemoglobin 23.9 L Mean Corpuscular Hemoglobin Concent 31.6 L Red Cell Distribution Width 17.6 H Platelet Count 343 # Mean Platelet Volume 10.3 Immature Granulocytes % 0.500 H Neutrophils % 56.3 Lymphocytes % 32.6 Monocytes % 8.6 Eosinophils % 1.5 Basophils % 0.5 Nucleated Red Blood Cells % 0.0 Immature Granulocytes # 0.040 H Neutrophils # 4.4 Lymphocytes # 2.5 Monocytes # 0.7 Eosinophils # 0.1 Basophils # 0.0 Nucleated Red Blood Cells # 0.0 Exam/Review of Systems Exam Vitals Vital Signs Date Temp Pulse Resp B/P (MAP) Pulse Ox O2 O2 Flow FiO2 Time Delivery Rate 09/09/18 98.0 70 20 116/70 98 Room Air 07:56 (85) Intake and Output 09/08/18 09/08/18 09/09/18 1515:00 23:00 07:00 IntakeIntake Total 1360 ml BalanceBalance 1360 ml Results Results 24hrs Laboratory Tests Test 09/09/18 15:40 White Blood Count 7.8 # Red Blood Count 4.02 #L Hemoglobin 9.6 L Hematocrit 30.4 L Mean Corpuscular Volume 75.6 L Mean Corpuscular Hemoglobin 23.9 L Mean Corpuscular Hemoglobin Concent 31.6 L Red Cell Distribution Width 17.6 H Platelet Count 343 # Mean Platelet Volume 10.3 Immature Granulocytes % 0.500 H Neutrophils % 56.3 Lymphocytes % 32.6 Monocytes % 8.6 Eosinophils % 1.5 Basophils % 0.5 Nucleated Red Blood Cells % 0.0 Immature Granulocytes # 0.040 H Neutrophils # 4.4 Lymphocytes # 2.5 Monocytes # 0.7 Eosinophils # 0.1 Basophils # 0.0 Nucleated Red Blood Cells # 0.0 Medications Medication Current Medications IV Flush (NS 3 ml) 3 ml PER PROTOCOL IV ; Start 08/13/18 at 20:00 Ondansetron HCl (Zofran Inj) 4 mg Q6H PRN IV NAUSEA AND/OR VOMITING Last administered on 09/08/18 18:27; Admin Dose 4 MG; Start 08/13/18 at 20:00 Duloxetine HCl (Cymbalta) 60 mg DAILY PO Last administered on 09/09/18 08:32; Admin Dose 60 MG; Start 08/14/18 at 09:00 Levothyroxine Sodium (Synthroid) 50 mcg BEFORE BREAKFAST PO Last administered on 09/09/18 06:06; Admin Dose 50 MCG; Start 08/15/18 at 07:00 Alteplase, Recombinant (Cathflo (Activase)) 2 mg MAY REPEAT X1 PRN CATHETER IF CATHETER REMAINS OCCULUDED Last administered on 09/06/18 11:28; Admin Dose 2 MG; Start 08/15/18 at 06:00 Cholecalciferol (Vitamin D) 2,000 unit DAILY PO Last administered on 09/09/18 08:32; Admin Dose 2,000 UNIT; Start 08/17/18 at 09:00 Zinc Sulfate (Zinc Sulfate) 220 mg DAILY PO Last administered on 09/09/18 08:33; Admin Dose 220 MG; Start 08/17/18 at 09:00 Eye Lubricant (Artificial Tears Oph) 1 drop Q6H PRN BOTH EYES DRY EYES Last administered on 08/19/18at 00:00; Admin Dose 1 DROP; Start 08/16/18 at 23:30 Miscellaneous Information 1 ea NOTE XX ; Start 08/17/18 at 10:30 Glucose (Glutose) 15 gm Q15M PRN PO DECREASED GLUCOSE; Start 08/17/18 at 10:30 Glucose (Glutose) 22.5 gm Q15M PRN PO DECREASED GLUCOSE; Start 08/17/18 at 10:30 Dextrose (D50w Syringe) 25 ml Q15M PRN IV DECREASED GLUCOSE; Start 08/17/18 at 10:30 Dextrose (D50w Syringe) 50 ml Q15M PRN IV DECREASED GLUCOSE; Start 08/17/18 at 10:30 Glucagon (Glucagen) 1 mg Q15M PRN IM DECREASED GLUCOSE; Start 08/17/18 at 10:30 Glucose (Glutose) 15 gm Q15M PRN BUCCAL DECREASED GLUCOSE; Start 08/17/18 at 10:30 Zolpidem Tartrate (Ambien) 10 mg QHS PRN PO INSOMNIA Last administered on 09/08/18at 21:00; Admin Dose 10 MG; Start 08/20/18 at 11:30 Phenol (Cepastat Lozenge) 1 lozenge Q1H PRN MT THROAT PAIN Last administered on 09/07/18at 08:42; Admin Dose 1 LOZENGE; Start 08/21/18 at 11:00 Pantoprazole (Protonix Tab) 40 mg BID PO Last administered on 09/09/18at 08:33; Admin Dose 40 MG; Start 08/25/18 at 09:00 Diphenhydramine HCl (Benadryl) 50 mg Q6H PRN IV ITCHING Last administered on 09/09/18at 16:31; Admin Dose 50 MG; Start 08/26/18 at 21:00 Acetaminophen (Tylenol Tab) 500 mg Q6H PRN PO MILD PAIN(1-3)OR ELEVATED TEMP; Start 09/01/18 at 18:30 Lidocaine (Xylocaine (Viscous)) 15 ml QID PRN PO Pain in the mouth; Start 09/02/18 at 10:30 Daptomycin 500 mg/ Sodium Chloride 100 ml @ 200 mls/hr Q24H IVPB Last admini stered on 09/08/18 16:06; Admin Dose 200 MLS/HR; Start 09/03/18 at 16:00 Levofloxacin/ Dextrose 100 ml @ 100 mls/hr Q24H IVPB Last administered on 09/08/18 16:56; Admin Dose 100 MLS/HR; Start 09/05/18 at 16:30; Stop 09/19/18 at 16:29 Tramadol HCl (Ultram) 50 mg Q6H PRN PO MODERATE PAIN LEVEL 4-6 Last administered on 09/09/18 16:27; Admin Dose 50 MG; Start 09/07/18 at 11:00 Lorazepam (Ativan) 1 mg Q8H PRN IV Anxiety Last administered on 09/09/18 12:13; Admin Dose 1 MG; Start 09/08/18 at 12:00 Gabapentin (Neurontin) 100 mg TID PO Last administered on 09/09/18 12:07; Admin Dose 100 MG; Start 09/08/18 at 13:00 Trazodone HCl (Desyrel) 50 mg BID PO Last administered on 09/09/18 08:33; A dmin Dose 50 MG; Start 09/08/18 at 12:30 Lorazepam (Ativan) 1 mg Q12 PO Last administered on 09/09/18 08:33; Admin Dose 1 MG; Start 09/08/18 at 12:00 Lactobacillus Acidophilus/ Rhamnosus (Culturelle) 1 cap BID PO Last administered on 09/09/18 08:33; Admin Dose 1 CAP; Start 09/08/18 at 12:00 Ibuprofen (Motrin) 600 mg Q8 PRN PO SEVERE PAIN LEVEL 7-10; Start 09/08/18 at 19:00 Promethazine HCl/ Codeine (Phenergan/ Codeine) 10 ml Q4H PRN PO COUGH; Start 09/09/18 at 17:30 LEON CORONA MD Sep 09, 2018 16:40
[2018-09-09] MEDS: DAPTOMYCIN 500 MG in SOD CHLORIDE 0.9% 100 ML IVPB SCH (16:46)
[2018-09-09] MEDS ORDERED: IOHEXOL 100 ML ONE (17:22)
[2018-09-09] MEDS: LEVOFLOXACIN 500MG/D5W (PMX) 100 ML IVPB SCH (17:22)
[2018-09-09] MEDS ORDERED: SOD CHLORIDE 0.9% 100 ML ONE (17:22)
[2018-09-09] MEDS ORDERED: HYDROmorphONE 1 MG/ML SYG IV ONE (17:30)
[2018-09-09 20:00] VITALS: BP 146/82; PULSE 84; RESP 18
[2018-09-09] MEDS: OXYMETAZOLINE 0.05% 15 ML NAS SPRAY NASAL SCH (21:00)
[2018-09-09] MEDS: ZOLPIDEM 5 MG TAB PO PRN (21:16)
--- NOTE | 2018-09-09 22:15 | QN ---
Documentation Comment Informed by nurse, patient had hematemesis episode, will get stat hemoglobin, will also trend hemoglobin, restart patient on PPI drip, explained to nurse to get a hold of GI as they are already on board. Patient also complaining of chest pressure after hematemesis, troponin, chest x-ray, EKG ordered stat. LISY NOEL Sep 09, 2018 22:15
[2018-09-09] MEDS ORDERED: HYDROmorphONE 0.5 MG/0.5 ML SYG IV ONE (23:08)
[2018-09-09] MEDS: PANTOPRAZOLE IV 80 MG in SOD CHLORIDE 0.9% 100 ML IV SCH (23:57)
[2018-09-09] MEDS: SOD CHLORIDE 0.9% 1,000 ML IV SCH (23:57)
[2018-09-10 02:31] VITALS: BP 119/64; PULSE 68; RESP 18
[2018-09-10] MEDS: ONDANSETRON 4 MG INJ IV PRN ×2 (02:49→21:59)
[2018-09-10] MEDS: LORAZEPAM 2 MG INJ IV PRN ×4 (02:49→18:35)
[2018-09-10] MEDS ORDERED: ACETAMINOPHEN 1000MG/100ML IV 100 ML IVPB PRN (06:00)
[2018-09-10] MEDS: LEVOTHYROXINE 50 MCG TAB PO SCH (06:07)
[2018-09-10] MEDS: POTASSIUM CHLORIDE 100 ML IVPB SCH ×3 (06:17→11:13)
[2018-09-10] MEDS: SOD CHLORIDE 0.9% 1,000 ML IV SCH ×2 (08:30→21:45)
[2018-09-10] MEDS: PANTOPRAZOLE IV 80 MG in SOD CHLORIDE 0.9% 100 ML IV SCH ×2 (08:48→18:02)
[2018-09-10] MEDS: DIPHENHYDRAMINE 50 MG INJ IV PRN ×4 (08:48→22:04)
[2018-09-10] MEDS: OXYMETAZOLINE 0.05% 15 ML NAS SPRAY NASAL SCH ×2 (08:49→20:29)
[2018-09-10] MEDS: traZODone 50 MG TAB PO SCH ×2 (09:00→20:29)
[2018-09-10] MEDS: DULOXETINE 30 MG CAP DR PO SCH (09:00)
[2018-09-10] MEDS: LACTOBACILLUS RHAMNOSUS CAP PO SCH ×2 (09:00→20:29)
[2018-09-10] MEDS: LORAZEPAM 1 MG TAB PO SCH ×2 (09:00→21:00)
[2018-09-10] MEDS: GABAPENTIN 100 MG CAP PO SCH ×3 (09:00→20:30)
[2018-09-10] MEDS: ZINC SULFATE 220 MG CAP PO SCH (09:00)
[2018-09-10] MEDS: CHOLECALCIFEROL 2,000 UNIT CAP PO SCH (09:00)
[2018-09-10 09:30] VITALS: BP 130/62; PULSE 62; RESP 16
--- NOTE | 2018-09-10 09:57 | CONS ---
Assessment/Plan Assessment/Plan Hospital Course (Demo Recall) sepsis, bloodstream infection - s/p sepsis d/t bacteremia - fever and tachycardia resolved - bacteremia d/t Coag Neg Staph and Stenotrophomonas maltophilia on 09/01/2018 and 09/02/2018; repeat blood cultures 09/04/18 negative - h/o "bacteremia due to enterococci" according to progress notes at [facility], but the actual microbiology report indicated blood culture was positive for ESBL+E. coli - h/o fungemia due to kaley glabrata, sensitive to fluconazole and to micafungin/caspofungin at [facility] - TTE done 09/04/18 showed no mention of valvular vegetations; EF 55-60% pulm - persistent hemoptysis of unknown etiology: Pt reports negative PPD last month at [facility]. - according to the microbiology report at [facility], Pt had ESBL+E. coli in her respiratory culture. Sputum cultures for AFB and fungi were negative at 8 weeks and at 4 weeks respectively at [facility] - Pt had negative bronchoscopy in 05/2018 at [facility], another at [facility] in 2018, and on 08/25/2018 at [facility] (no e/o bronchial airway bleeding according to Dr. Bello - Numerous tiny lung nodules, increased in number from the chest CT dated May 22, 2018, with largest measuring 0.3 cm in the left apex - Kaley albicans in sputum cx on 08/28/2018 - likely colonizer - so far: aspergillus antibody not detected, HIV negative, coccidioidomycosis serology negative, TB Quant Gold negative, 1,3 beta d glucan negative, procalc 09/01/18 was 0.30 GI - Delgado-colitis per CT 08/13/18 - S/p diarrhea on 09/06/18 - S/p sigmoidoscopy with biopsy 08/17/2018; path showed no e/o colitis or malignancy from transverse colon and rectum biopsies - S/p bloody diarrhea d/t Giardia; Pt took metronidazole for Giardia (08/14/2018- 08/21/2018) in 07/2018. - H/o C diff toxin negative PCR positive status at [facility]. Took a course of Fidaxomyxin x 10 days. C. diff was negative on 08/14/2018 at [facility] - H/o cholecystectomy heme/oncology - S/p CT guided bone marrow aspiration and biopsy 08/20/2018 - Microcytic anemia requiring PRBC d/t acute blood loss - Electrophoresis 08/19/18 showed: Evaluation suggests beta thalassemia trait with anemia. Iron deficiency must be ruled out. - H/o BUE and RLE DVT, s/p IVC filter in January 2018 - H/o Hodgkin lymphoma diagnosed in 2006 - H/o thyroid CA diagnosed in 2005, s/p resection, chemo and XRT - IVC filter placement - +Family hx of cancer (father of stomach CA, mother of lymphoma, paternal uncle had breast CA and 12 yo daughter has h/o brain tumor s/p surgery and resulting blindness) , renal - h/o UTI due to ESBL+E. coli - S/p PO levofloxacin (08/24/2018-08/28/2018) for probable UTI other conditions - a painful ulcer at frenulum, recurrent. According to Pt, topical steroid would worsen the pain. HIV negative, RPR non reactive, herpes 1 and 2 by PCR not detected; s/p trial of PO valacyclovir (08/27/2018-09/01/2018) - s/p bilateral conjunctivitis - improved s/p Cipro eye drops (08/18/18-08/23/18) - Hypothyroidism - HLD - S/p hypokalemia - OA - depression/anxiety - H/o x2 - Allergy to PCN and vancomycin (reaction unknown) Recommendations: - Continue Daptomycin (clarify allergy to vanco; 09/02/2018-) and Levaquin (08/25/18-08/27/2018; restart 09/05/2018-) to complete 14 days from first negative blood culture; s/p Cefepime (09/03/18 - 09/05/18). Suggested end date of Dapto through 09/17/2018 and Levaquin through 09/18/2018 - Serial CK level (<20 on 09/03/2018, 39 on 09/10/2018) while on Dapto - Consider GI re-evaluation - suspect bacteremia originating from colitis - We recommend DC PICC - Trend fever curve (resolved) - Monitor for diarrhea (resolved) Management d/w FERNANDO Guzman and with Dr. Hansen. Consultation Date/Type/Reason Admit Date/Time Aug 13, 2018 at 17:22 Initial Consult Date 08/19/18 Type of Consult Infectious Disease Requesting Provider: SHAQUILLE HARRIS Date/Time of Note DATE: 09/10/18 TIME: 09:54 24 HR Interval Summary Free Text/Dictation CTA chest was negative for PE. CXR shows no PNA. Hgb dropped to 7.9 and 2 units PRBC has been ordered. Pt coughed up blood overn ight but none this AM; Pt is being moved to front of nursing station for closer observation per d/w nursing Pt was crying and moaning this AM and immediately stopped crying when RN told pt she would give Ativan sooner if pt would quiet down. Pt reported chest discomfort. Two troponins are negative. 3rd troponin pending. C/o generalized pain and declining physical examination. Exam/Review of Systems Exam Vitals Vital Signs Date Temp Pulse Resp B/P (MAP) Pulse Ox O2 O2 Flow FiO2 Time Delivery Rate 09/10/18 98.2 68 18 119/64 99 02:31 (82) 09/09/18 Room Air 07:56 Intake and Output 09/09/18 09/09/18 09/10/18 1515:00 23:00 07:00 IntakeIntake Total 640 ml 100 ml 770 ml OutputOutput Total 250 ml BalanceBalance 640 ml 100 ml 520 ml Exam Pt lying in bed with blanket covering her head. She pulled down blanket down to see who I was then covered her head again. Declined physical examination. Results Result Diagram: 09/10/18 0421 09/10/18 0421 Results 24hrs Laboratory Tests Test 09/09/18 15:40 09/09/18 22:33 09/10/18 04:21 White Blood Count 7.8 # 4.9 # Red Blood Count 4.02 #L 3.27 L Hemoglobin 9.6 L 9.3 L 7.9 L Hematocrit 30.4 L 29.4 L 24.7 L Mean Corpuscular Volume 75.6 L 75.5 L Mean Corpuscular Hemoglobin 23.9 L 24.2 L Mean Corpuscular Hemoglobin Concent 31.6 L 32.0 Red Cell Distribution Width 17.6 H 17.3 H Platelet Count 343 # 240 # Mean Platelet Volume 10.3 9.6 Immature Granulocytes % 0.500 H 0.600 H Neutrophils % 56.3 54.0 Lymphocytes % 32.6 32.9 Monocytes % 8.6 8.8 Eosinophils % 1.5 3.1 Basophils % 0.5 0.6 Nucleated Red Blood Cells % 0.0 0.0 Immature Granulocytes # 0.040 H 0.030 Neutrophils # 4.4 2.6 Lymphocytes # 2.5 1.6 Monocytes # 0.7 0.4 Eosinophils # 0.1 0.2 Basophils # 0.0 0.0 Nucleated Red Blood Cells # 0.0 0.0 Troponin I < 0.012 < 0.012 Prothrombin Time 12.9 Prothrombin Time Ratio 1.0 INR International Normalized Ratio 0.96 Sodium Level 141 Potassium Level 3.1 L Chloride Level 106 Carbon Dioxide Level 27 Anion Gap 8 Blood Urea Nitrogen 14 Creatinine 0.51 Est Glomerular Filtrat Rate mL/min > 60 Glucose Level 84 Calcium Level 8.8 Total Bilirubin 0.4 Direct Bilirubin 0.00 Indirect Bilirubin 0.4 Aspartate Amino Transf (AST/SGOT) 21 Alanine Aminotransferase (ALT/SGPT) 28 Alkaline Phosphatase 75 Creatine Kinase 39 Total Protein 5.9 L Albumin 3.4 Globulin 2.50 Albumin/Globulin Ratio 1.36 Imaging Imaging CTA chest 09/09/2018: No pulmonary embolism. Numerous bilateral subpleural micronodules, not significantly changed. No pulmonary edema or consolidation. CXR 09/09/2018: 1. Stable positioning of the left upper extremity PICC catheter. 2. Suboptimal inspiration. 3. Mild diffuse degenerative enthesopathy of the thoracic spine. 4. Otherwise, stable and unremarkable portable chest. Medications Medication Current Medications IV Flush (NS 3 ml) 3 ml PER PROTOCOL IV ; Start 08/13/18 at 20:00 Ondansetron HCl (Zofran Inj) 4 mg Q6H PRN IV NAUSEA AND/OR VOMITING Last a dministered on 09/10/18at 02:49; Admin Dose 4 MG; Start 08/13/18 at 20:00 Duloxetine HCl (Cymbalta) 60 mg DAILY PO Last administered on 09/09/18at 08:32; Admin Dose 60 MG; Start 08/14/18 at 09:00 Levothyroxine Sodium (Synthroid) 50 mcg BEFORE BREAKFAST PO Last administered on 09/09/18at 06:06; Admin Dose 50 MCG; Start 08/15/18 at 07:00 Alteplase, Recombinant (Cathflo (Activase)) 2 mg MAY REPEAT X1 PRN CATHETER IF CATHETER REMAINS OCCULUDED Last administered on 09/06/18 11:28; Admin Dose 2 MG; Start 08/15/18 at 06:00 Cholecalciferol (Vitamin D) 2,000 unit DAILY PO Last administered on 09/09/18 08:32; Admin Dose 2,000 UNIT; Start 08/17/18 at 09:00 Zinc Sulfate (Zinc Sulfate) 220 mg DAILY PO Last administered on 09/09/18 08:33; Admin Dose 220 MG; Start 08/17/18 at 09:00 Eye Lubricant (Artificial Tears Oph) 1 drop Q6H PRN BOTH EYES DRY EYES Last administered on 08/19/18at 00:00; Admin Dose 1 DROP; Start 08/16/18 at 23:30 Miscellaneous Information 1 ea NOTE XX ; Start 08/17/18 at 10:30 Glucose (Glutose) 15 gm Q15M PRN PO DECREASED GLUCOSE; Start 08/17/18 at 10:30 Glucose (Glutose) 22.5 gm Q15M PRN PO DECREASED GLUCOSE; Start 08/17/18 at 10:30 Dextrose (D50w Syringe) 25 ml Q15M PRN IV DECREASED GLUCOSE; Start 08/17/18 at 10:30 Dextrose (D50w Syringe) 50 ml Q15M PRN IV DECREASED GLUCOSE; Start 08/17/18 at 10:30 Glucagon (Glucagen) 1 mg Q15M PRN IM DECREASED GLUCOSE; Start 08/17/18 at 10:30 Glucose (Glutose) 15 gm Q15M PRN BUCCAL DECREASED GLUCOSE; Start 08/17/18 at 10:30 Zolpidem Tartrate (Ambien) 10 mg QHS PRN PO INSOMNIA Last administered on 09/09/18at 21:16; Admin Dose 10 MG; Start 08/20/18 at 11:30 Phenol (Cepastat Lozenge) 1 lozenge Q1H PRN MT THROAT PAIN Last administered on 09/07/18 08:42; Admin Dose 1 LOZENGE; Start 08/21/18 at 11:00 Diphenhydramine HCl (Benadryl) 50 mg Q6H PRN IV ITCHING Last administered on 09/10/18 08:48; Admin Dose 50 MG; Start 08/26/18 at 21:00 Acetaminophen (Tylenol Tab) 500 mg Q6H PRN PO MILD PAIN(1-3)OR ELEVATED TEMP; Start 09/01/18 at 18:30 Lidocaine (Xylocaine (Viscous)) 15 ml QID PRN PO Pain in the mouth; Start 09/02/18 at 10:30 Daptomycin 500 mg/ Sodium Chloride 100 ml @ 200 mls/hr Q24H IVPB Last administered on 09/09/18 16:46; Admin Dose 200 MLS/HR; Start 09/03/18 at 16:00 Levofloxacin/ Dextrose 100 ml @ 100 mls/hr Q24H IVPB Last administered on 09/09/18 17:22; Admin Dose 100 MLS/HR; Start 09/05/18 at 16:30; Stop 09/19/18 at 16:29 Tramadol HCl (Ultram) 50 mg Q6H PRN PO MODERATE PAIN LEVEL 4-6 Last adminis tered on 09/09/18 16:27; Admin Dose 50 MG; Start 09/07/18 at 11:00 Lorazepam (Ativan) 1 mg Q8H PRN IV Anxiety Last administered on 09/10/18 09:41; Admin Dose 1 MG; Start 09/08/18 at 12:00 Gabapentin (Neurontin) 100 mg TID PO Last administered on 09/09/18 21:16; Admin Dose 100 MG; Start 09/08/18 at 13:00 Trazodone HCl (Desyrel) 50 mg BID PO Last administered on 09/09/18 21:16; Admin Dose 50 MG; Start 09/08/18 at 12:30 Lactobacillus Acidophilus/ Rhamnosus (Culturelle) 1 cap BID PO Last adm inistered on 09/09/18 21:16; Admin Dose 1 CAP; Start 09/08/18 at 12:00 Ibuprofen (Motrin) 600 mg Q8 PRN PO SEVERE PAIN LEVEL 7-10; Start 09/08/18 at 19:00 Promethazine HCl/ Codeine (Phenergan/ Codeine) 10 ml Q4H PRN PO COUGH; Start 09/09/18 at 17:30 Lorazepam (Ativan) 2 mg Q12 PO Last administered on 09/09/18 21:16; Admin Dose 2 MG; Start 09/09/18 at 21:00 Oxymetazoline HCl (Afrin [place]) 2 spray BID NASAL ; Start 09/09/18 at 21:00 Pantoprazole 80 mg/Sodium Chloride 100 ml @ 10 mls/hr Q10H IV Last administered on 09/10/18at 08:48; Admin Dose 10 MLS/HR; Start 09/09/18 at 22:30 Sodium Chloride 1,000 ml @ 100 mls/hr Q10H IV Last administered on 09/09/18at 23:57; Admin Dose 100 MLS/HR; Start 09/09/18 at 22:30 Potassium Chloride 100 ml @ 50 mls/hr Q2H IVPB Last administered on 09/10/18at 08:48; Admin Dose 50 MLS/HR; Start 09/10/18 at 06:00; Stop 09/10/18 at 11:59 Acetaminophen 100 ml @ 400 mls/hr Q12H PRN IVPB PAIN Last administered on 09/10/18at 08:48; Admin Dose 400 MLS/HR; Start 09/10/18 at 06:00; Stop 09/11/18 at 05:59 RICHARD APPLE NP Sep 10, 2018 09:57
--- NOTE | 2018-09-10 10:45 | CONS ---
Assessment/Plan Assessment/Plan Assessment/Plan (Daily) h/o Lymphoma -thus far there are no lesions that can be biopsied and it does not appear she has active cancer #Anemia-hgb 7.9 today- 2 units of PRBC transfusion today -Hgb Electrophoresis - confirms B- thalassemia trait with Anemia -pt has had microcytic anemia requiring transfusions for years -will order a bone marrow bx at this time- pending -anemia panel-anemia positive # Hemoptysis VS Hematemesis - GI follows - 08/31/2018- S/P esophagogastroduodenoscopy- showed no evidence of any gas trointestinal bleed. #Hemoptysis, recurrent. -s/p unremarkable bronchoscopy at [facility] -s/p unremarkable flexible laryngoscopy 02/05/17 at [facility] -CT Chest pulmonary nodules are noted but are too small to biopsy -ID workup pending for pulmonary nodules- Numerous tiny lung nodules, increased in number from the chest CT dated May 22, 2018, with largest measuring 0.3 cm in the left apex - 02/2018- negative TB workup -08/21/18-CT Chest Angio- no new changes. will do Follow-up CT in X 3-4 months to insure stability as recommended - 08/24/18- Repeat bronchoscopy - wnl - Given her platelets and coag panel are wnl; Bronchoscopy is wnl #pancolitis. -Colonoscopy on 08/17/2018 showed patchy colitis. bx was negative -Stool positive for Giardia- pt on vancomycin and Flagyl Patient seen in collaboration with Dr Brown. Dw Staff Consultation Date/Type/Reason Admit Date/Time Aug 13, 2018 at 5:22 pm Initial Consult Date 08/19/18 Type of Consult ONCOLOGY Reason for Consultation Hx Lymphoma Requesting Provider: SHAQUILLE HARRIS Date/Time of Note DATE: 09/10/18 TIME: 10:44 24 HR Interval Summary Free Text/Dictation RBC TAG Scan today C/o chest pain- none at present; EKG done; Troponin pending no new events reported overnight Detailed Summary Eyes: no complaints ENT: no complaints Respiratory: cough, sputum (w/blood) Gastrointestinal: no complaints Genitourinary: no complaints Musculoskeletal: no complaints, other Skin: no complaints Neurologic: no complaints Endocrine: no complaints Exam/Review of Systems Exam Vitals Vital Signs Date Temp Pulse Resp B/P (MAP) Pulse Ox O2 O2 Flow FiO2 Time Delivery Rate 09/10/18 98.2 68 18 119/64 99 02:31 (82) 09/09/18 Room Air 07:56 Intake and Output 09/09/18 09/09/18 09/10/18 1515:00 23:00 07:00 IntakeIntake Total 640 ml 100 ml 770 ml OutputOutput Total 250 ml BalanceBalance 640 ml 100 ml 520 ml Constitutional: alert, well developed Psych: no complaints Eyes: nl conjunctiva ENMT: nl external ears & nose Neck: non-tender Respiratory: diminished breath sounds (bilaterally) Cardiovascular: other (s1s2) Gastrointestinal: soft, non-tender Musculoskeletal: nl extremities to inspection Extremities: normal pulses Neurological: nl mental status, nl speech Skin: nl turgor Lymph: nontender Results Result Diagram: 09/10/1842009/10/18420 Results 24hrs Laboratory Tests Test 09/09/18 15:40 09/09/18 22:33 09/10/18 04:21 White Blood Count 7.8 # 4.9 # Red Blood Count 4.02 #L 3.27 L Hemoglobin 9.6 L 9.3 L 7.9 L Hematocrit 30.4 L 29.4 L 24.7 L Mean Corpuscular Volume 75.6 L 75.5 L Mean Corpuscular Hemoglobin 23.9 L 24.2 L Mean Corpuscular Hemoglobin Concent 31.6 L 32.0 Red Cell Distribution Width 17.6 H 17.3 H Platelet Count 343 # 240 # Mean Platelet Volume 10.3 9.6 Immature Granulocytes % 0.500 H 0.600 H Neutrophils % 56.3 54.0 Lymphocytes % 32.6 32.9 Monocytes % 8.6 8.8 Eosinophils % 1.5 3.1 Basophils % 0.5 0.6 Nucleated Red Blood Cells % 0.0 0.0 Immature Granulocytes # 0.040 H 0.030 Neutrophils # 4.4 2.6 Lymphocytes # 2.5 1.6 Monocytes # 0.7 0.4 Eosinophils # 0.1 0.2 Basophils # 0.0 0.0 Nucleated Red Blood Cells # 0.0 0.0 Troponin I < 0.012 < 0.012 Prothrombin Time 12.9 Prothrombin Time Ratio 1.0 INR International Normalized Ratio 0.96 Sodium Level 141 Potassium Level 3.1 L Chloride Level 106 Carbon Dioxide Level 27 Anion Gap 8 Blood Urea Nitrogen 14 Creatinine 0.51 Est Glomerular Filtrat Rate mL/min > 60 Glucose Level 84 Calcium Level 8.8 Total Bilirubin 0.4 Direct Bilirubin 0.00 Indirect Bilirubin 0.4 Aspartate Amino Transf (AST/SGOT) 21 Alanine Aminotransferase (ALT/SGPT) 28 Alkaline Phosphatase 75 Creatine Kinase 39 Total Protein 5.9 L Albumin 3.4 Globulin 2.50 Albumin/Globulin Ratio 1.36 Medications Medication Current Medications IV Flush (NS 3 ml) 3 ml PER PROTOCOL IV ; Start 08/13/18 at 20:00 Ondansetron HCl (Zofran Inj) 4 mg Q6H PRN IV NAUSEA AND/OR VOMITING Last administered on 09/10/18 02:49; Admin Dose 4 MG; Start 08/13/18 at 20:00 Duloxetine HCl (Cymbalta) 60 mg DAILY PO Last administered on 09/09/18 08:32; Admin Dose 60 MG; Start 08/14/18 at 09:00 Levothyroxine Sodium (Synthroid) 50 mcg BEFORE BREAKFAST PO Last administered on 09/09/18 06:06; Admin Dose 50 MCG; Start 08/15/18 at 07:00 Alteplase, Recombinant (Cathflo (Activase)) 2 mg MAY REPEAT X1 PRN CATHETER IF CATHETER REMAINS OCCULUDED Last administered on 09/06/18 11:28; Admin Dose 2 MG; Start 08/15/18 at 06:00 Cholecalciferol (Vitamin D) 2,000 unit DAILY PO Last administered on 09/09/18 08:32; Admin Dose 2,000 UNIT; Start 08/17/18 at 09:00 Zinc Sulfate (Zinc Sulfate) 220 mg DAILY PO Last administered on 09/09/18 08:33; Admin Dose 220 MG; Start 08/17/18 at 09:00 Eye Lubricant (Artificial Tears Oph) 1 drop Q6H PRN BOTH EYES DRY EYES Last administered on 08/19/18 00:00; Admin Dose 1 DROP; Start 08/16/18 at 23:30 Miscellaneous Information 1 ea NOTE XX ; Start 08/17/18 at 10:30 Glucose (Glutose) 15 gm Q15M PRN PO DECREASED GLUCOSE; Start 08/17/18 at 10:30 Glucose (Glutose) 22.5 gm Q15M PRN PO DECREASED GLUCOSE; Start 08/17/18 at 10 :30 Dextrose (D50w Syringe) 25 ml Q15M PRN IV DECREASED GLUCOSE; Start 08/17/18 at 10:30 Dextrose (D50w Syringe) 50 ml Q15M PRN IV DECREASED GLUCOSE; Start 08/17/18 at 10:30 Glucagon (Glucagen) 1 mg Q15M PRN IM DECREASED GLUCOSE; Start 08/17/18 at 10:30 Glucose (Glutose) 15 gm Q15M PRN BUCCAL DECREASED GLUCOSE; Start 08/17/18 at 10:30 Zolpidem Tartrate (Ambien) 10 mg QHS PRN PO INSOMNIA Last administered on 09/09/18 21:16; Admin Dose 10 MG; Start 08/20/18 at 11:30 Phenol (Cepastat Lozenge) 1 lozenge Q1H PRN MT THROAT PAIN Last administered on 09/07/18at 08:42; Admin Dose 1 LOZENGE; Start 08/21/18 at 11:00 Diphenhydramine HCl (Benadryl) 50 mg Q6H PRN IV ITCHING Last administered on 09/10/18 08:48; Admin Dose 50 MG; Start 08/26/18 at 21:00 Acetaminophen (Tylenol Tab) 500 mg Q6H PRN PO MILD PAIN(1-3)OR ELEVATED TEMP; Start 09/01/18 at 18:30 Lidocaine (Xylocaine (Viscous)) 15 ml QID PRN PO Pain in the mouth; Start 09/02/18 at 10:30 Daptomycin 500 mg/ Sodium Chloride 100 ml @ 200 mls/hr Q24H IVPB Last administered on 09/09/18 16:46; Admin Dose 200 MLS/HR; Start 09/03/18 at 16:00 Levofloxacin/ Dextrose 100 ml @ 100 mls/hr Q24H IVPB Last administered on 09/09/18 17:22; Admin Dose 100 MLS/HR; Start 09/05/18 at 16:30; Stop 09/19/18 at 16:29 Tramadol HCl (Ultram) 50 mg Q6H PRN PO MODERATE PAIN LEVEL 4-6 Last administered on 09/09/18 16:27; Admin Dose 50 MG; Start 09/07/18 at 11:00 Lorazepam (Ativan) 1 mg Q8H PRN IV Anxiety Last administered on 09/10/18 09:41; Admin Dose 1 MG; Start 09/08/18 at 12:00 Gabapentin (Neurontin) 100 mg TID PO Last administered on 09/09/18 21:16; Admin Dose 100 MG; Start 09/08/18 at 13:00 Trazodone HCl (Desyrel) 50 mg BID PO Last administered on 09/09/18 21:16; Admin Dose 50 MG; Start 09/08/18 at 12:30 Lactobacillus Acidophilus/ Rhamnosus (Culturelle) 1 cap BID PO Last administered on 09/09/18 21:16; Admin Dose 1 CAP; Start 09/08/18 at 12:00 Ibuprofen (Motrin) 600 mg Q8 PRN PO SEVERE PAIN LEVEL 7-10; Start 09/08/18 at 19:00 Promethazine HCl/ Codeine (Phenergan/ Codeine) 10 ml Q4H PRN PO COUGH; Start 09/09/18 at 17:30 Lorazepam (Ativan) 2 mg Q12 PO Last administered on 09/09/18 21:16; Admin Dose 2 MG; Start 09/09/18 at 21:00 Oxymetazoline HCl (Afrin [place]) 2 spray BID NASAL ; Start 09/09/18 at 21:00 Pantoprazole 80 mg/Sodium Chloride 100 ml @ 10 mls/hr Q10H IV Last administered on 09/10/18 08:48; Admin Dose 10 MLS/HR; Start 09/09/18 at 22:30 Sodium Chloride 1,000 ml @ 100 mls/hr Q10H IV Last administered on 09/09/18 23:57; Admin Dose 100 MLS/HR; Start 09/09/18 at 22:30 Potassium Chloride 100 ml @ 50 mls/hr Q2H IVPB Last administered on 09/10/18 08:48; Admin Dose 50 MLS/HR; Start 09/10/18 at 06:00; Stop 09/10/18 at 11:59 Acetaminophen 100 ml @ 400 mls/hr Q12H PRN IVPB PAIN Last administered on 09/10/18 08:48; Admin Dose 400 MLS/HR; Start 09/10/18 at 06:00; Stop 09/11/18 at 05:59 SULEMA WRIGHT Sep 10, 2018 10:45 am
--- NOTE | 2018-09-10 11:01 | CONS ---
Assessment/Plan Assessment/Plan Hospital Course (Demo Recall) EMR reviewed. Will coordinate and direct care with [employer] Consultation Date/Type/Reason Admit Date/Time Aug 13, 2018 at 17:22 Initial Consult Date 08/19/18 Requesting Provider: SHAQUILLE HARRIS Date/Time of Note DATE: 09/10/18 TIME: 11:01 Exam/Review of Systems Exam Vitals Vital Signs Date Temp Pulse Resp B/P (MAP) Pulse Ox O2 O2 Flow FiO2 Time Delivery Rate 09/10/18 98.2 68 18 119/64 99 02:31 (82) 09/09/18 Room Air 07:56 Intake and Output 09/09/18 09/09/18 09/10/18 1515:00 23:00 07:00 IntakeIntake Total 640 ml 100 ml 770 ml OutputOutput Total 250 ml BalanceBalance 640 ml 100 ml 520 ml Results Result Diagram: 09/10/18 0421 09/10/18 0421 Results 24hrs Laboratory Tests Test 09/09/18 15:40 09/09/18 22:33 09/10/18 04:21 White Blood Count 7.8 # 4.9 # Red Blood Count 4.02 #L 3.27 L Hemoglobin 9.6 L 9.3 L 7.9 L Hematocrit 30.4 L 29.4 L 24.7 L Mean Corpuscular Volume 75.6 L 75.5 L Mean Corpuscular Hemoglobin 23.9 L 24.2 L Mean Corpuscular Hemoglobin Concent 31.6 L 32.0 Red Cell Distribution Width 17.6 H 17.3 H Platelet Count 343 # 240 # Mean Platelet Volume 10.3 9.6 Immature Granulocytes % 0.500 H 0.600 H Neutrophils % 56.3 54.0 Lymphocytes % 32.6 32.9 Monocytes % 8.6 8.8 Eosinophils % 1.5 3.1 Basophils % 0.5 0.6 Nucleated Red Blood Cells % 0.0 0.0 Immature Granulocytes # 0.040 H 0.030 Neutrophils # 4.4 2.6 Lymphocytes # 2.5 1.6 Monocytes # 0.7 0.4 Eosinophils # 0.1 0.2 Basophils # 0.0 0.0 Nucleated Red Blood Cells # 0.0 0.0 Troponin I < 0.012 < 0.012 Prothrombin Time 12.9 Prothrombin Time Ratio 1.0 INR International Normalized Ratio 0.96 Sodium Level 141 Potassium Level 3.1 L Chloride Level 106 Carbon Dioxide Level 27 Anion Gap 8 Blood Urea Nitrogen 14 Creatinine 0.51 Est Glomerular Filtrat Rate mL/min > 60 Glucose Level 84 Calcium Level 8.8 Total Bilirubin 0.4 Direct Bilirubin 0.00 Indirect Bilirubin 0.4 Aspartate Amino Transf (AST/SGOT) 21 Alanine Aminotransferase (ALT/SGPT) 28 Alkaline Phosphatase 75 Creatine Kinase 39 Total Protein 5.9 L Albumin 3.4 Globulin 2.50 Albumin/Globulin Ratio 1.36 Medications Medication Current Medications IV Flush (NS 3 ml) 3 ml PER PROTOCOL IV ; Start 08/13/18 at 20:00 Ondansetron HCl (Zofran Inj) 4 mg Q6H PRN IV NAUSEA AND/OR VOMITING Last administered on 09/10/18 02:49; Admin Dose 4 MG; Start 08/13/18 at 20:00 Duloxetine HCl (Cymbalta) 60 mg DAILY PO Last administered on 09/09/18 08:32; Admin Dose 60 MG; Start 08/14/18 at 09:00 Levothyroxine Sodium (Synthroid) 50 mcg BEFORE BREAKFAST PO Last administered on 09/09/18 06:06; Admin Dose 50 MCG; Start 08/15/18 at 07:00 Alteplase, Recombinant (Cathflo (Activase)) 2 mg MAY REPEAT X1 PRN CATHETER IF CATHETER REMAINS OCCULUDED Last administered on 09/06/18 11:28; Admin Dose 2 MG; Start 08/15/18 at 06:00 Cholecalciferol (Vitamin D) 2,000 unit DAILY PO Last administered on 09/09/18 08:32; Admin Dose 2,000 UNIT; Start 08/17/18 at 09:00 Zinc Sulfate (Zinc Sulfate) 220 mg DAILY PO Last administered on 09/09/18 08:33; Admin Dose 220 MG; Start 08/17/18 at 09:00 Eye Lubricant (Artificial Tears Oph) 1 drop Q6H PRN BOTH EYES DRY EYES Last administered on 08/19/18 00:00; Admin Dose 1 DROP; Start 08/16/18 at 23:30 Miscellaneous Information 1 ea NOTE XX ; Start 08/17/18 at 10:30 Glucose (Glutose) 15 gm Q15M PRN PO DECREASED GLUCOSE; Start 08/17/18 at 10:30 Glucose (Glutose) 22.5 gm Q15M PRN PO DECREASED GLUCOSE; Start 08/17/18 at 1 0:30 Dextrose (D50w Syringe) 25 ml Q15M PRN IV DECREASED GLUCOSE; Start 08/17/18 at 10:30 Dextrose (D50w Syringe) 50 ml Q15M PRN IV DECREASED GLUCOSE; Start 08/17/18 at 10:30 Glucagon (Glucagen) 1 mg Q15M PRN IM DECREASED GLUCOSE; Start 08/17/18 at 10:30 Glucose (Glutose) 15 gm Q15M PRN BUCCAL DECREASED GLUCOSE; Start 08/17/18 at 10:30 Zolpidem Tartrate (Ambien) 10 mg QHS PRN PO INSOMNIA Last administered on 09/09/18 21:16; Admin Dose 10 MG; Start 08/20/18 at 11:30 Phenol (Cepastat Lozenge) 1 lozenge Q1H PRN MT THROAT PAIN Last administered on 09/07/18 08:42; Admin Dose 1 LOZENGE; Start 08/21/18 at 11:00 Diphenhydramine HCl (Benadryl) 50 mg Q6H PRN IV ITCHING Last administered on 08:48; Admin Dose 50 MG; Start 08/26/18 at 21:00 Acetaminophen (Tylenol Tab) 500 mg Q6H PRN PO MILD PAIN(1-3)OR ELEVATED TEMP; Start 09/01/18 at 18:30 Lidocaine (Xylocaine (Viscous)) 15 ml QID PRN PO Pain in the mouth; Start 09/02/18 at 10:30 Daptomycin 500 mg/ Sodium Chloride 100 ml @ 200 mls/hr Q24H IVPB Last administered on 09/09/18 16:46; Admin Dose 200 MLS/HR; Start 09/03/18 at 16:00 Levofloxacin/ Dextrose 100 ml @ 100 mls/hr Q24H IVPB Last administered on 09/09/18 17:22; Admin Dose 100 MLS/HR; Start 09/05/18 at 16:30; Stop 09/19/18 at 16:29 Tramadol HCl (Ultram) 50 mg Q6H PRN PO MODERATE PAIN LEVEL 4-6 Last administered on 09/09/18 16:27; Admin Dose 50 MG; Start 09/07/18 at 11:00 Lorazepam (Ativan) 1 mg Q8H PRN IV Anxiety Last administered on 09/10/18 09:41; Admin Dose 1 MG; Start 09/08/18 at 12:00 Gabapentin (Neurontin) 100 mg TID PO Last administered on 09/09/18 21:16; Admin Dose 100 MG; Start 09/08/18 at 13:00 Trazodone HCl (Desyrel) 50 mg BID PO Last administered on 09/09/18 21:16; Admin Dose 50 MG; Start 09/08/18 at 12:30 Lactobacillus Acidophilus/ Rhamnosus (Culturelle) 1 cap BID PO Last administered on 09/09/18 21:16; Admin Dose 1 CAP; Start 09/08/18 at 12:00 Ibuprofen (Motrin) 600 mg Q8 PRN PO SEVERE PAIN LEVEL 7-10; Start 09/08/18 at 19:00 Promethazine HCl/ Codeine (Phenergan/ Codeine) 10 ml Q4H PRN PO COUGH; Start 09/09/18 at 17:30 Lorazepam (Ativan) 2 mg Q12 PO Last administered on 09/09/18 21:16; Admin Dose 2 MG; Start 09/09/18 at 21:00 Oxymetazoline HCl (Afrin [place]) 2 spray BID NASAL ; Start 09/09/18 at 21:00 Pantoprazole 80 mg/Sodium Chloride 100 ml @ 10 mls/hr Q10H IV Last administered on 09/10/18 08:48; Admin Dose 10 MLS/HR; Start 09/09/18 at 22:30 Sodium Chloride 1,000 ml @ 100 mls/hr Q10H IV Last administered on 09/09/18 23:57; Admin Dose 100 MLS/HR; Start 09/09/18 at 22:30 Potassium Chloride 100 ml @ 50 mls/hr Q2H IVPB Last administered on 09/10/18 08:48; Admin Dose 50 MLS/HR; Start 09/10/18 at 06:00; Stop 09/10/18 at 11:59 Acetaminophen 100 ml @ 400 mls/hr Q12H PRN IVPB PAIN Last administered on 09/10 08:48; Admin Dose 400 MLS/HR; Start 09/10/18 at 06:00; Stop 09/11/18 at 05:59 AUREA MEDINA MD Sep 10, 2018 11:01
--- NOTE | 2018-09-10 12:10 | PN ---
Date/Time of Note Date/Time of Note DATE: 09/10/18 TIME: 11:58 Assessment/Plan VTE Prophylaxis Risk score (from Ns)>0 risk: 2 SCD applied (from Ns): No SCD contraindicated: low risk/ambulating Pharmacological prophylaxis: NA/contraindicated Pharm contraindication: bleeding Lines/Catheters [facility]from [facility] PICC Line Central line still needed: Yes Urinary Cath still in place: No Assessment/Plan Assessment/Plan Assessment: New onset hematemesis Epigastric pain Hemoptysis vs Hematemesis S/p EGD 08/31/18 -normal exam - S/p Bronchoscopy - negative Colitis, involving the ascending, transverse, descending colon. -Stool positive for Giardia- treatment completed -CDIFF neg, stool cx- prelim- coliform -Fecal leukocytes rare -O&P- neg 08/17/18 sigmoidoscopy Patchy colitis biopsies taken to rule out IBD etiology Transverse colon biopsy:focal mucin depletion and atrophy of colon crypts with increased regenerative activity, suggesting a healing erosion site. There is no evidence of acute colitis, active chronic colitis or malignancy. Rectum biopsy: Normal colon mucosa with focal acute hemorrhage in the superficial lamina propria, histologically non-specific. There is no evidence of colitis or malignancy. Leukocytosis- resolve Abdominal pain Hodgkin's lymphoma of the lung History of thyroid cancer diagnosed in 2007, status post surgery History of PE- s/p IVC filter placement Conjunctivitis OD- on ABX gtt- resolved Plan: EGD today- discussed risks/benefits/alternatives pt verbalized understanding and is agreeable to procedure Continue Protonix drip Monitor H&H Transfuse for hemoglobin less than 7.[address] Ewing/Jakob Subjective/Free text: Course reviewed with nursing staff Patient interviewed and examined All labs, imaging and other results reviewed Pt was reportedly having hematemesis yesterday. Hemoglobin dropped to 7.9. Blood transfusion is given. GI was reconsulted to rule out GI bleeding. The plan is to repeat an endoscopy. Discussed with the patient. She is agreeable. PHYSICAL EXAMINATION: GENERAL: Alert & oriented x 3, in no acute distress SKIN: No lesions CHEST: Inspection within normal limits. CARDIOVASCULAR: Heart: Regular rate and rhythm RESPIRATORY: Lungs clear to auscultation and percussion, no wheezing, no rubs GASTROINTESTINAL AND LIVER: Abdomen: Soft, epigastric and lower tenderness- improved, non-distended, no hernias, no rebound tenderness, normoactive bowel sounds. Rectal: Deferred. Result Diagram: 09/10/1842009/10/18420 Results 24hrs Laboratory Tests Test 09/09/18 15:40 09/09/18 22:33 09/10/18 04:21 09/10/18 10:43 White Blood Count 7.8 # 4.9 # Red Blood Count 4.02 #L 3.27 L Hemoglobin 9.6 L 9.3 L 7.9 L Hematocrit 30.4 L 29.4 L 24.7 L Mean Corpuscular 75.6 L 75.5 L Volume Mean Corpuscular 23.9 L 24.2 L Hemoglobin Mean Corpuscular 31.6 L 32.0 Hemoglobin Concent Red Cell 17.6 H 17.3 H Distribution Width Platelet Count 343 # 240 # Mean Platelet Volume 10.3 9.6 Immature 0.500 H 0.600 H Granulocytes % Neutrophils % 56.3 54.0 Lymphocytes % 32.6 32.9 Monocytes % 8.6 8.8 Eosinophils % 1.5 3.1 Basophils % 0.5 0.6 Nucleated Red Blood 0.0 0.0 Cells % Immature 0.040 H 0.030 Granulocytes # Neutrophils # 4.4 2.6 Lymphocytes # 2.5 1.6 Monocytes # 0.7 0.4 Eosinophils # 0.1 0.2 Basophils # 0.0 0.0 Nucleated Red Blood 0.0 0.0 Cells # Troponin I < 0.012 < 0.012 < 0.012 Prothrombin Time 12.9 Prothrombin Time 1.0 Ratio INR International 0.96 Normalized Ratio Sodium Level 141 Potassium Level 3.1 L Chloride Level 106 Carbon Dioxide Level 27 Anion Gap 8 Blood Urea Nitrogen 14 Creatinine 0.51 Est Glomerular > 60 Filtrat Rate mL/min Glucose Level 84 Calcium Level 8.8 Total Bilirubin 0.4 Direct Bilirubin 0.00 Indirect Bilirubin 0.4 Aspartate Amino 21 Transf (AST/SGOT) Alanine 28 Aminotransferase (AL T/SGPT) Alkaline Phosphatase 75 Creatine Kinase 39 Total Protein 5.9 L Albumin 3.4 Globulin 2.50 Albumin/Globulin 1.36 Ratio CC: DUKE KONG MD ; Exam/Review of Systems Exam Vitals Vital Signs Date Temp Pulse Resp B/P (MAP) Pulse Ox O2 O2 Flow FiO2 Time Delivery Rate 2/15/19 98.2 68 18 119/64 99 02:31 (82) 09/09/18 Room Air 07:56 Intake and Output 09/09/18 09/09/18 09/10/18 1515:00 23:00 07:00 IntakeIntake Total 640 ml 100 ml 770 ml OutputOutput Total 250 ml BalanceBalance 640 ml 100 ml 520 ml Results Results 24hrs Laboratory Tests Test 09/09/18 15:40 09/09/18 22:33 09/10/18 04:21 09/10/18 10:43 White Blood Count 7.8 # 4.9 # Red Blood Count 4.02 #L 3.27 L Hemoglobin 9.6 L 9.3 L 7.9 L Hematocrit 30.4 L 29.4 L 24.7 L Mean Corpuscular 75.6 L 75.5 L Volume Mean Corpuscular 23.9 L 24.2 L Hemoglobin Mean Corpuscular 31.6 L 32.0 Hemoglobin Concent Red Cell 17.6 H 17.3 H Distribution Width Platelet Count 343 # 240 # Mean Platelet Volume 10.3 9.6 Immature 0.500 H 0.600 H Granulocytes % Neutrophils % 56.3 54.0 Lymphocytes % 32.6 32.9 Monocytes % 8.6 8.8 Eosinophils % 1.5 3.1 Basophils % 0.5 0.6 Nucleated Red Blood 0.0 0.0 Cells % Immature 0.040 H 0.030 Granulocytes # Neutrophils # 4.4 2.6 Lymphocytes # 2.5 1.6 Monocytes # 0.7 0.4 Eosinophils # 0.1 0.2 Basophils # 0.0 0.0 Nucleated Red Blood 0.0 0.0 Cells # Troponin I < 0.012 < 0.012 < 0.012 Prothrombin Time 12.9 Prothrombin Time 1.0 Ratio INR International 0.96 Normalized Ratio Sodium Level 141 Potassium Level 3.1 L Chloride Level 106 Carbon Dioxide Level 27 Anion Gap 8 Blood Urea Nitrogen 14 Creatinine 0.51 Est Glomerular > 60 Filtrat Rate mL/min Glucose Level 84 Calcium Level 8.8 Total Bilirubin 0.4 Direct Bilirubin 0.00 Indirect Bilirubin 0.4 Aspartate Amino 21 Transf (AST/SGOT) Alanine 28 Aminotransferase (AL T/SGPT) Alkaline Phosphatase 75 Creatine Kinase 39 Total Protein 5.9 L Albumin 3.4 Globulin 2.50 Albumin/Globulin 1.36 Ratio Medications Medication Current Medications IV Flush (NS 3 ml) 3 ml PER PROTOCOL IV ; Start 08/13/18 at 20:00 Ondansetron HCl (Zofran Inj) 4 mg Q6H PRN IV NAUSEA AND/OR VOMITING Last administered on 09/10/18at 02:49; Admin Dose 4 MG; Start 08/13/18 at 20:00 Duloxetine HCl (Cymbalta) 60 mg DAILY PO Last administered on 09/09/18 08:32; Admin Dose 60 MG; Start 08/14/18 at 09:00 Levothyroxine Sodium (Synthroid) 50 mcg BEFORE BREAKFAST PO Last administered on 09/09/18 06:06; Admin Dose 50 MCG; Start 08/15/18 at 07:00 Alteplase, Recombinant (Cathflo (Activase)) 2 mg MAY REPEAT X1 PRN CATHETER IF CATHETER REMAINS OCCULUDED Last administered on 09/06/18at 11:28; Admin Dose 2 MG; Start 08/15/18 at 06:00 Cholecalciferol (Vitamin D) 2,000 unit DAILY PO Last administered on 09/09/18 08:32; Admin Dose 2,000 UNIT; Start 08/17/18 at 09:00 Zinc Sulfate (Zinc Sulfate) 220 mg DAILY PO Last administered on 09/09/18 08:33; Admin Dose 220 MG; Start 08/17/18 at 09:00 Eye Lubricant (Artificial Tears Oph) 1 drop Q6H PRN BOTH EYES DRY EYES Last administered on 08/19/18 00:00; Admin Dose 1 DROP; Start 08/16/18 at 23:30 Miscellaneous Information 1 ea NOTE XX ; Start 08/17/18 at 10:30 Glucose (Glutose) 15 gm Q15M PRN PO DECREASED GLUCOSE; Start 08/17/18 at 10:30 Glucose (Glutose) 22.5 gm Q15M PRN PO DECREASED GLUCOSE; Start 08/17/18 at 10:30 Dextrose (D50w Syringe) 25 ml Q15M PRN IV DECREASED GLUCOSE; Start 08/17/18 at 10:30 Dextrose (D50w Syringe) 50 ml Q15M PRN IV DECREASED GLUCOSE; Start 08/17/18 at 10:30 Glucagon (Glucagen) 1 mg Q15M PRN IM DECREASED GLUCOSE; Start 08/17/18 at 10:30 Glucose (Glutose) 15 gm Q15M PRN BUCCAL DECREASED GLUCOSE; Start 08/17/18 at 10:30 Zolpidem Tartrate (Ambien) 10 mg QHS PRN PO INSOMNIA Last administered on 09/09/18 21:16; Admin Dose 10 MG; Start 08/20/18 at 11:30 Phenol (Cepastat Lozenge) 1 lozenge Q1H PRN MT THROAT PAIN Last administered on 09/07/18 08:42; Admin Dose 1 LOZENGE; Start 08/21/18 at 11:00 Diphenhydramine HCl (Benadryl) 50 mg Q6H PRN IV ITCHING Last administered on 09/10/18 08:48; Admin Dose 50 MG; Start 08/26/18 at 21:00 Acetaminophen (Tylenol Tab) 500 mg Q6H PRN PO MILD PAIN(1-3)OR ELEVATED TEMP; Start 09/01/18 at 18:30 Lidocaine (Xylocaine (Viscous)) 15 ml QID PRN PO Pain in the mouth; Start 09/02/18 at 10:30 Daptomycin 500 mg/ Sodium Chloride 100 ml @ 200 mls/hr Q24H IVPB Last a dministered on 09/09/18 16:46; Admin Dose 200 MLS/HR; Start 09/03/18 at 16:00 Levofloxacin/ Dextrose 100 ml @ 100 mls/hr Q24H IVPB Last administered on 09/09/18 17:22; Admin Dose 100 MLS/HR; Start 09/05/18 at 16:30; Stop 09/19/18 at 16:29 Tramadol HCl (Ultram) 50 mg Q6H PRN PO MODERATE PAIN LEVEL 4-6 Last administered on 09/09/18 16:27; Admin Dose 50 MG; Start 09/07/18 at 11:00 Lorazepam (Ativan) 1 mg Q8H PRN IV Anxiety Last administered on 09/10/18 09:41; Admin Dose 1 MG; Start 09/08/18 at 12:00 Gabapentin (Neurontin) 100 mg TID PO Last administered on 09/09/18 21:16; Admin Dose 100 MG; Start 09/08/18 at 13:00 Trazodone HCl (Desyrel) 50 mg BID PO Last administered on 09/09/18 21:16; Admin Dose 50 MG; Start 09/08/18 at 12:30 Lactobacillus Acidophilus/ Rhamnosus (Culturelle) 1 cap BID PO Last administered on 09/09/18at 21:16; Admin Dose 1 CAP; Start 09/08/18 at 12:00 Ibuprofen (Motrin) 600 mg Q8 PRN PO SEVERE PAIN LEVEL 7-10; Start 09/08/18 at 19:00 Promethazine HCl/ Codeine (Phenergan/ Codeine) 10 ml Q4H PRN PO COUGH; Start 09/09/18 at 17:30 Lorazepam (Ativan) 2 mg Q12 PO Last administered on 09/09/18at 21:16; Admin Dose 2 MG; Start 09/09/18 at 21:00 Oxymetazoline HCl (Afrin [place]) 2 spray BID NASAL ; Start 09/09/18 at 21:00 Pantoprazole 80 mg/Sodium Chloride 100 ml @ 10 mls/hr Q10H IV Last administered on 09/10/18at 08:48; Admin Dose 10 MLS/HR; Start 09/09/18 at 22:30 Sodium Chloride 1,000 ml @ 100 mls/hr Q10H IV Last administered on 09/09/18at 23:57; Admin Dose 100 MLS/HR; Start 09/09/18 at 22:30 Potassium Chloride 100 ml @ 50 mls/hr Q2H IVPB Last administered on 09/10/18at 11:13; Admin Dose 50 MLS/HR; Start 09/10/18 at 06:00; Stop 09/10/18 at 11:59 Acetaminophen 100 ml @ 400 mls/hr Q12H PRN IVPB PAIN Last administered on 09/10/18 08:48; Admin Dose 400 MLS/HR; Start 09/10/18 at 06:00; Stop 09/11/18 at 05:59 OPHELIA LEMA NP Sep 10, 2018 12:09
--- NOTE | 2018-09-10 12:47 | PN ---
Date/Time of Note Date/Time of Note DATE: 09/10/18 TIME: 12:42 Assessment/Plan VTE Prophylaxis Risk score (from Ns)>0 risk: 7 SCD applied (from [facility]): No SCD contraindicated: low risk/ambulating Pharmacological prophylaxis: NA/contraindicated Pharm contraindication: bleeding Lines/Catheters IV C[facility]ter Type (from [facility]): Peripheral IV Urinary Cath still in place: No Assessment/Plan Hospital Course A/P 1. Hemoptysis vs Hematemesis? bronch/ egd/ laryngoscopy (09/01): [facility]. Past egd/bronch in [place] unremarkable. Refused tertiary eval in past. No path lesions/ scars. No bleeding diathesis. Recurrence noted. transfuse again today. - Radiation injury? Sm vv Vasculitis? CTA -vs; rpt egd/ bronch. 2. H/o HL - chemo/ xrt; repeat chemo [facility]. Sp BmBx-appears negative. 3. Ho PE/ Dvt, ivc filter status 4. Diarrhea/ giardia; Rxed; however occ diarrhea noted colon 08/17; patchy colitis 5. H//o c diff 6. H/o thyroid nodule? 5. UTI 6. H/o H pylori; EGD- 'ulcers' within the last year. Current EGD -ve. 7. Cons bacteremia 09/01. Stenotrophomonas maltophilia bacteremia 09/03: 2D -ve for veg. Source colon? Recent colonoscopy does not show any mass/ cancer. Immunosuppressed? 8. Anemia; beta thalassemia trait; sp bone marrow 08/20 negative; spep. 9. Chr pain syndrome. Pain seeking behavior. 10. Prediabetes? 11. Ulcer of the frenulum linguae. 12. Ftt, stable discharge to snf once bed available. 13. Pulmonary nodules, stable, observe. Repeat imaging in 3 months. S: 08/23 feels ok; still bleeding. no dyspnea/ fever 08/24: Events noted still having hemoptysis. No hematuria 08/25: Hemoptysis again this morning? Patient denies any hematemesis or epistaxis 08/26: Recurrent hemoptysis this morning. No dyspnea fever 08/27: Still having hemoptysis? No hematochezia melena hematuria or epistaxis. No dyspnea fever. 08/28: Events noted. She is worried about her hemoptysis. 2/3: Still bringing out a lot of blood. Hemoptysis versus hematemesis. Chronic stable we will consult GI. 09/06: Intermittent hemoptysis. Now having diarrhea without any GI bleed. No fevers. 09/07: Intermittent hemoptysis. Denies any fever vomiting GI bleed. No dyspnea. Does not have a regular oncologist and no outpatient support. Will need snf 09/08: 4 bouts diarrhea. no n/f. 'pain' in legs, abd. no known agg/rel factors. toradol- headache? no h/o rash/ dyspnea 09/09: Hemoptysis noted again. 75 m? [employer], vss. crying, but refusing working/ cxr. Patient denies any chest pain postnasal drip. No GI bleed noted. States of having lower abdominal suprapubic tenderness but no dysuria hematuria. Back pain upper/ around her shoulder blades. 09/10: coughing/ vomiting blood. 'pain', lwr abd/ back. now placed in front of nursing station O: vss PE No pallor. Throat clear adentous Reg Clear Benign, mild suprapubic tendernes; nd; no RRG or cvat; back - no erythema/ warmth No edema Result Diagram: 09/10/18 0421 09/10/18 0421 Results 24hrs Laboratory Tests Test 09/09/18 15:40 09/09/18 22:33 09/10/18 04:21 09/10/18 10:43 White Blood Count 7.8 # 4.9 # Red Blood Count 4.02 #L 3.27 L Hemoglobin 9.6 L 9.3 L 7.9 L Hematocrit 30.4 L 29.4 L 24.7 L Mean Corpuscular 75.6 L 75.5 L Volume Mean Corpuscular 23.9 L 24.2 L Hemoglobin Mean Corpuscular 31.6 L 32.0 Hemoglobin Concent Red Cell 17.6 H 17.3 H Distribution Width Platelet Count 343 # 240 # Mean Platelet Volume 10.3 9.6 Immature 0.500 H 0.600 H Granulocytes % Neutrophils % 56.3 54.0 Lymphocytes % 32.6 32.9 Monocytes % 8.6 8.8 Eosinophils % 1.5 3.1 Basophils % 0.5 0.6 Nucleated Red Blood 0.0 0.0 Cells % Immature 0.040 H 0.030 Granulocytes # Neutrophils # 4.4 2.6 Lymphocytes # 2.5 1.6 Monocytes # 0.7 0.4 Eosinophils # 0.1 0.2 Basophils # 0.0 0.0 Nucleated Red Blood 0.0 0.0 Cells # Troponin I < 0.012 < 0.012 < 0.012 Prothrombin Time 12.9 Prothrombin Time 1.0 Ratio INR International 0.96 Normalized Ratio Sodium Level 141 Potassium Level 3.1 L Chloride Level 106 Carbon Dioxide Level 27 Anion Gap 8 Blood Urea Nitrogen 14 Creatinine 0.51 Est Glomerular > 60 Filtrat Rate mL/min Glucose Level 84 Calcium Level 8.8 Total Bilirubin 0.4 Direct Bilirubin 0.00 Indirect Bilirubin 0.4 Aspartate Amino 21 Transf (AST/SGOT) Alanine 28 Aminotransferase (AL T/SGPT) Alkaline Phosphatase 75 Creatine Kinase 39 Total Protein 5.9 L Albumin 3.4 Globulin 2.50 Albumin/Globulin 1.36 Ratio Exam/Review of Systems Exam Vitals Vital Signs Date Temp Pulse Resp B/P (MAP) Pulse Ox O2 O2 Flow FiO2 Time Delivery Rate 09/10/18 98.8 62 16 130/62 94 Room Air 09:30 (84) Intake and Output 09/09/18 09/09/18 09/10/18 1515:00 23:00 07:00 IntakeIntake Total 640 ml 100 ml 770 ml OutputOutput Total 250 ml BalanceBalance 640 ml 100 ml 520 ml Results Results 24hrs Laboratory Tests Test 09/09/18 15:40 09/09/18 22:33 09/10/18 04:21 09/10/18 10:43 White Blood Count 7.8 # 4.9 # Red Blood Count 4.02 #L 3.27 L Hemoglobin 9.6 L 9.3 L 7.9 L Hematocrit 30.4 L 29.4 L 24.7 L Mean Corpuscular 75.6 L 75.5 L Volume Mean Corpuscular 23.9 L 24.2 L Hemoglobin Mean Corpuscular 31.6 L 32.0 Hemoglobin Concent Red Cell 17.6 H 17.3 H Distribution Width Platelet Count 343 # 240 # Mean Platelet Volume 10.3 9.6 Immature 0.500 H 0.600 H Granulocytes % Neutrophils % 56.3 54.0 Lymphocytes % 32.6 32.9 Monocytes % 8.6 8.8 Eosinophils % 1.5 3.1 Basophils % 0.5 0.6 Nucleated Red Blood 0.0 0.0 Cells % Immature 0.040 H 0.030 Granulocytes # Neutrophils # 4.4 2.6 Lymphocytes # 2.5 1.6 Monocytes # 0.7 0.4 Eosinophils # 0.1 0.2 Basophils # 0.0 0.0 Nucleated Red Blood 0.0 0.0 Cells # Troponin I < 0.012 < 0.012 < 0.012 Prothrombin Time 12.9 Prothrombin Time 1.0 Ratio INR International 0.96 Normalized Ratio Sodium Level 141 Potassium Level 3.1 L Chloride Level 106 Carbon Dioxide Level 27 Anion Gap 8 Blood Urea Nitrogen 14 Creatinine 0.51 Est Glomerular > 60 Filtrat Rate mL/min Glucose Level 84 Calcium Level 8.8 Total Bilirubin 0.4 Direct Bilirubin 0.00 Indirect Bilirubin 0.4 Aspartate Amino 21 Transf (AST/SGOT) Alanine 28 Aminotransferase (AL T/SGPT) Alkaline Phosphatase 75 Creatine Kinase 39 Total Protein 5.9 L Albumin 3.4 Globulin 2.50 Albumin/Globulin 1.36 Ratio Medications Medication Current Medications IV Flush (NS 3 ml) 3 ml PER PROTOCOL IV ; Start 08/13/18 at 20:00 Ondansetron HCl (Zofran Inj) 4 mg Q6H PRN IV NAUSEA AND/OR VOMITING Last administered on 09/10/18 02:49; Admin Dose 4 MG; Start 08/13/18 at 20:00 Duloxetine HCl (Cymbalta) 60 mg DAILY PO Last administered on 09/09/18 08:32; Admin Dose 60 MG; Start 08/14/18 at 09:00 Levothyroxine Sodium (Synthroid) 50 mcg BEFORE BREAKFAST PO Last administered on 09/09/18 06:06; Admin Dose 50 MCG; Start 08/15/18 at 07:00 Alteplase, Recombinant (Cathflo (Activase)) 2 mg MAY REPEAT X1 PRN CATHETER IF CATHETER REMAINS OCCULUDED Last administered on 09/06/18 11:28; Admin Dose 2 MG; Start 08/15/18 at 06:00 Cholecalciferol (Vitamin D) 2,000 unit DAILY PO Last administered on 09/09/18 08:32; Admin Dose 2,000 UNIT; Start 08/17/18 at 09:00 Zinc Sulfate (Zinc Sulfate) 220 mg DAILY PO Last administered on 09/09/18at 08:33; Admin Dose 220 MG; Start 08/17/18 at 09:00 Eye Lubricant (Artificial Tears Oph) 1 drop Q6H PRN BOTH EYES DRY EYES Last administered on 08/19/18at 00:00; Admin Dose 1 DROP; Start 08/16/18 at 23:30 Miscellaneous Information 1 ea NOTE XX ; Start 08/17/18 at 10:30 Glucose (Glutose) 15 gm Q15M PRN PO DECREASED GLUCOSE; Start 08/17/18 at 10:30 Glucose (Glutose) 22.5 gm Q15M PRN PO DECREASED GLUCOSE; Start 08/17/18 at 10:30 Dextrose (D50w Syringe) 25 ml Q15M PRN IV DECREASED GLUCOSE; Start 08/17/18 at 10:30 Dextrose (D50w Syringe) 50 ml Q15M PRN IV DECREASED GLUCOSE; Start 08/17/18 at 10:30 Glucagon (Glucagen) 1 mg Q15M PRN IM DECREASED GLUCOSE; Start 08/17/18 at 10:30 Glucose (Glutose) 15 gm Q15M PRN BUCCAL DECREASED GLUCOSE; Start 08/17/18 at 10:30 Zolpidem Tartrate (Ambien) 10 mg QHS PRN PO INSOMNIA Last administered on 09/09/18at 21:16; Admin Dose 10 MG; Start 08/20/18 at 11:30 Phenol (Cepastat Lozenge) 1 lozenge Q1H PRN MT THROAT PAIN Last administered on 09/07/18at 08:42; Admin Dose 1 LOZENGE; Start 08/21/18 at 11:00 Diphenhydramine HCl (Benadryl) 50 mg Q6H PRN IV ITCHING Last administered on 09/10/18at 08:48; Admin Dose 50 MG; Start 08/26/18 at 21:00 Acetaminophen (Tylenol Tab) 500 mg Q6H PRN PO MILD PAIN(1-3)OR ELEVATED TEMP; Start 09/01/18 at 18:30 Lidocaine (Xylocaine (Viscous)) 15 ml QID PRN PO Pain in the mouth; Start 09/02/18 at 10:30 Daptomycin 500 mg/ Sodium Chloride 100 ml @ 200 mls/hr Q24H IVPB Last administered on 09/09/18 16:46; Admin Dose 200 MLS/HR; Start 09/03/18 at 16:00 Levofloxacin/ Dextrose 100 ml @ 100 mls/hr Q24H IVPB Last administered on 09/09/18 17:22; Admin Dose 100 MLS/HR; Start 09/05/18 at 16:30; Stop 09/19/18 at 16:29 Tramadol HCl (Ultram) 50 mg Q6H PRN PO MODERATE PAIN LEVEL 4-6 Last administered on 09/09/18 16:27; Admin Dose 50 MG; Start 09/07/18 at 11:00 Lorazepam (Ativan) 1 mg Q8H PRN IV Anxiety Last administered on 09/10/18 09:41; Admin Dose 1 MG; Start 09/08/18 at 12:00 Gabapentin (Neurontin) 100 mg TID PO Last administered on 09/09/18 21:16; Admin Dose 100 MG; Start 09/08/18 at 13:00 Trazodone HCl (Desyrel) 50 mg BID PO Last administered on 09/09/18 21:16; Admin Dose 50 MG; Start 09/08/18 at 12:30 Lactobacillus Acidophilus/ Rhamnosus (Culturelle) 1 cap BID PO Last administered on 09/09/18 21:16; Admin Dose 1 CAP; Start 09/08/18 at 12:00 Ibuprofen (Motrin) 600 mg Q8 PRN PO SEVERE PAIN LEVEL 7-10; Start 09/08/18 at 19:00 Promethazine HCl/ Codeine (Phenergan/ Codeine) 10 ml Q4H PRN PO COUGH; Start 09/09/18 at 17:30 Lorazepam (Ativan) 2 mg Q12 PO Last administered on 09/09/18 21:16; Admin Dose 2 MG; Start 09/09/18 at 21:00 Oxymetazoline HCl (Afrin [place]) 2 spray BID NASAL ; Start 09/09/18 at 21:00 Pantoprazole 80 mg/Sodium Chloride 100 ml @ 10 mls/hr Q10H IV Last administered on 09/10/18 08:48; Admin Dose 10 MLS/HR; Start 09/09/18 at 22:30 Sodium Chloride 1,000 ml @ 100 mls/hr Q10H IV Last administered on 09/09/18at 23:57; Admin Dose 100 MLS/HR; Start 09/09/18 at 22:30 Acetaminophen 100 ml @ 400 mls/hr Q12H PRN IVPB PAIN Last administered on 09/10/18at 08:48; Admin Dose 400 MLS/HR; Start 09/10/18 at 06:00; Stop 09/11/18 at 05:59 LEON CORONA MD Sep 10, 2018 12:47
--- NOTE | 2018-09-10 12:55 | CONS ---
Consult Date/Type/Reason Admit Date/Time Aug 13, 2018 at 17:22 Initial Consult Date 08/19/18 Type of Consult Pulmonary Requesting Provider: SHAQUILLE HARRIS Date/Time of Note DATE: 09/10/18 TIME: 12:54 Subjective Continues to have hemoptysis versus hematemesis ENT evaluation negative. Objective Vital Signs Date Temp Pulse Resp B/P (MAP) Pulse Ox O2 O2 Flow FiO2 Time Delivery Rate 09/10/18 98.8 62 16 130/62 94 Room Air 09:30 (84) Intake and Output 09/09/18 09/09/18 09/10/18 1414:59 22:59 06:59 IntakeIntake Total 640 ml 100 ml OutputOutput Total 250 ml BalanceBalance 640 ml 100 ml -250 ml Exam GENERAL: Agitated lady complaining of abdominal pain VITAL SIGNS: per chart NECK: Supple. No JVD or lymphadenopathy. CARDIAC EXAM: S1, S2. No added sounds or murmurs. CHEST: clear bilaterally, No added sounds, rales or wheezes ABDOMEN: Soft, nontender. No guarding or rebound. EXTREMITIES: No cyanosis, clubbing or edema. NEUROLOGIC: Generalized weakness. No focal deficits. Vent Setting Fraction of Inspired Oxygen pe: 21 Results/Medications Result Diagram: 09/10/18 0421 09/10/[address] angiogram unremarkable Laboratory Tests Test 09/09/18 15:40 09/09/18 22:33 09/10/18 04:21 09/10/18 10:43 White Blood Count 7.8 # 4.9 # Red Blood Count 4.02 #L 3.27 L Hemoglobin 9.6 L 9.3 L 7.9 L Hematocrit 30.4 L 29.4 L 24.7 L Mean Corpuscular 75.6 L 75.5 L Volume Mean Corpuscular 23.9 L 24.2 L Hemoglobin Mean Corpuscular 31.6 L 32.0 Hemoglobin Concent Red Cell 17.6 H 17.3 H Distribution Width Platelet Count 343 # 240 # Mean Platelet Volume 10.3 9.6 Immature 0.500 H 0.600 H Granulocytes % Neutrophils % 56.3 54.0 Lymphocytes % 32.6 32.9 Monocytes % 8.6 8.8 Eosinophils % 1.5 3.1 Basophils % 0.5 0.6 Nucleated Red Blood 0.0 0.0 Cells % Immature 0.040 H 0.030 Granulocytes # Neutrophils # 4.4 2.6 Lymphocytes # 2.5 1.6 Monocytes # 0.7 0.4 Eosinophils # 0.1 0.2 Basophils # 0.0 0.0 Nucleated Red Blood 0.0 0.0 Cells # Troponin I < 0.012 < 0.012 < 0.012 Prothrombin Time 12.9 Prothrombin Time 1.0 Ratio INR International 0.96 Normalized Ratio Sodium Level 141 Potassium Level 3.1 L Chloride Level 106 Carbon Dioxide Level 27 Anion Gap 8 Blood Urea Nitrogen 14 Creatinine 0.51 Est Glomerular > 60 Filtrat Rate mL/min Glucose Level 84 Calcium Level 8.8 Total Bilirubin 0.4 Direct Bilirubin 0.00 Indirect Bilirubin 0.4 Aspartate Amino 21 Transf (AST/SGOT) Alanine 28 Aminotransferase (AL T/SGPT) Alkaline Phosphatase 75 Creatine Kinase 39 Total Protein 5.9 L Albumin 3.4 Globulin 2.50 Albumin/Globulin 1.36 Ratio Medications Current Medications IV Flush (NS 3 ml) 3 ml PER PROTOCOL IV ; Start 08/13/18 at 20:00 Ondansetron HCl (Zofran Inj) 4 mg Q6H PRN IV NAUSEA AND/OR VOMITING Last administered on 09/10/18at 02:49; Admin Dose 4 MG; Start 08/13/18 at 20:00 Duloxetine HCl (Cymbalta) 60 mg DAILY PO Last administered on 09/09/18 08:32; Admin Dose 60 MG; Start 08/14/18 at 09:00 Alteplase, Recombinant (Cathflo (Activase)) 2 mg MAY REPEAT X1 PRN CATHETER IF CATHETER REMAINS OCCULUDED Last administered on 09/06/18at 11:28; Admin Dose 2 M G; Start 08/15/18 at 06:00 Zinc Sulfate (Zinc Sulfate) 220 mg DAILY PO Last administered on 09/09/18at 08:33; Admin Dose 220 MG; Start 08/17/18 at 09:00 Eye Lubricant (Artificial Tears Oph) 1 drop Q6H PRN BOTH EYES DRY EYES Last administered on 08/19/18at 00:00; Admin Dose 1 DROP; Start 08/16/18 at 23:30 Miscellaneous Information 1 ea NOTE XX ; Start 08/17/18 at 10:30 Glucose (Glutose) 15 gm Q15M PRN PO DECREASED GLUCOSE; Start 08/17/18 at 10:30 Glucose (Glutose) 22.5 gm Q15M PRN PO DECREASED GLUCOSE; Start 08/17/18 at 10:30 Dextrose (D50w Syringe) 25 ml Q15M PRN IV DECREASED GLUCOSE; Start 08/17/18 at 10:30 Dextrose (D50w Syringe) 50 ml Q15M PRN IV DECREASED GLUCOSE; Start 08/17/18 at 10:30 Glucagon (Glucagen) 1 mg Q15M PRN IM DECREASED GLUCOSE; Start 08/17/18 at 10:30 Glucose (Glutose) 15 gm Q15M PRN BUCCAL DECREASED GLUCOSE; Start 08/17/18 at 10:30 Zolpidem Tartrate (Ambien) 10 mg QHS PRN PO INSOMNIA Last administered on 09/09/18 21:16; Admin Dose 10 MG; Start 08/20/18 at 11:30 Phenol (Cepastat Lozenge) 1 lozenge Q1H PRN MT THROAT PAIN Last administered on 09/07/18 08:42; Admin Dose 1 LOZENGE; Start 08/21/18 at 11:00 Acetaminophen (Tylenol Tab) 500 mg Q6H PRN PO MILD PAIN(1-3)OR ELEVATED TEMP; Start 09/01/18 at 18:30 Lidocaine (Xylocaine (Viscous)) 15 ml QID PRN PO Pain in the mouth; Start 09/02/18 at 10:30 Daptomycin 500 mg/ Sodium Chloride 100 ml @ 200 mls/hr Q24H IVPB Last administered on 09/09/18 16:46; Admin Dose 200 MLS/HR; Start 09/03/18 at 16:00 Levofloxacin/ Dextrose 100 ml @ 100 mls/hr Q24H IVPB Last administered on 09/09/18 17:22; Admin Dose 100 MLS/HR; Start 09/05/18 at 16:30; Stop 09/19/18 at 16:29 Tramadol HCl (Ultram) 50 mg Q6H PRN PO MODERATE PAIN LEVEL 4-6 Last administered on 09/09/18 16:27; Admin Dose 50 MG; Start 09/07/18 at 11:00 Gabapentin (Neurontin) 100 mg TID PO Last administered on 09/09/18 21:16; Admin Dose 100 MG; Start 09/08/18 at 13:00 Trazodone HCl (Desyrel) 50 mg BID PO Last administered on 09/09/18at 21:16; Admi n Dose 50 MG; Start 09/08/18 at 12:30 Lactobacillus Acidophilus/ Rhamnosus (Culturelle) 1 cap BID PO Last administered on 09/09/18at 21:16; Admin Dose 1 CAP; Start 09/08/18 at 12:00 Ibuprofen (Motrin) 600 mg Q8 PRN PO SEVERE PAIN LEVEL 7-10; Start 09/08/18 at 19:00 Promethazine HCl/ Codeine (Phenergan/ Codeine) 10 ml Q4H PRN PO COUGH; Start 09/09/18 at 17:30 Lorazepam (Ativan) 2 mg Q12 PO Last administered on 09/09/18at 21:16; Admin Dose 2 MG; Start 09/09/18 at 21:00 Oxymetazoline HCl (Afrin [place]) 2 spray BID NASAL ; Start 09/09/18 at 21:00 Pantoprazole 80 mg/Sodium Chloride 100 ml @ 10 mls/hr Q10H IV Last administered on 09/10/18 08:48; Admin Dose 10 MLS/HR; Start 09/09/18 at 22:30 Sodium Chloride 1,000 ml @ 70 mls/hr [id number] IV Last administered on 09/09/18at 23:57; Admin Dose 100 MLS/HR; Start 09/09/18 at 22:30 Acetaminophen 100 ml @ 400 mls/hr Q12H PRN IVPB PAIN Last administered on 09/10/18at 08:48; Admin Dose 400 MLS/HR; Start 09/10/18 at 06:00; Stop 09/11/18 at 05:59 Cholecalciferol (Vitamin D) 2,000 unit DAILY PO ; Start 09/13/18 at 09:00; Status UNV Diphenhydramine HCl (Benadryl) 50 mg Q4 PRN IV ITCHING; Start 09/10/18 at 13:00; Status UNV Levothyroxine Sodium (Synthroid) 50 mcg BEFORE BREAKFAST PO ; Start 09/13/18 at 07:00; Status UNV Lorazepam (Ativan) 2 mg Q6 PRN IV Anxiety; Start 09/10/18 at 13:00 Assessment/Plan Hospital Course (Demo Recall) Assessment 1. History of recurrent hemoptysis versus hematemesis. Unremarkable CT chest. 2. History of thyroid cancer 3. Apparent history of lymphoma in the past. Plan 1. Repeat EGD if unremarkable will consider repeat bronchoscopy 2. Monitor H&H 3. Psych MARGE Lawton MD, [facility] Sep 10, 2018 12:55
[2018-09-10 14:00] VITALS: BP 124/64; PULSE 68; RESP 16
[2018-09-10 15:30] VITALS: BP 128/63; PULSE 68; RESP 14
--- NOTE | 2018-09-10 15:59 | HPN ---
Date/Time of Note Date/Time of Note DATE: 09/10/18 TIME: 15:58 Interval H&P Admission Note Pt. seen H&P reviewed: No system changes PRUDENCE YADAV Sep 10, 2018 15:59
--- NOTE | 2018-09-10 16:05 | PREAC ---
Date/Time of Note Date/Time of Note DATE: 09/10/18 TIME: 16:04 Anesthesia Eval and Record Evaluation Time Pre-Procedure Interview DATE: 09/10/18 TIME: 16:04 Age 52 Sex female NPO: 8 hrs Preoperative diagnosis GI bleed Planned procedure EGD Past Medical History Past Medical History: Includes Endo: Hypothyroid Heme: Anemia, Other (lymphoma) Surgery & Anesthesia Issues No known issue Meds Anticoagulation: No Beta Mirna within 24 hr: No Reason Beta Mirna not given: Pt. not on B-Mirna Reported Medications Zolpidem Tartrate* (Ambien*) 5 Mg Tablet, 5 MG PO QHS PRN for INSOMNIA, #30 TAB 08/13/18 Cholecalciferol* (Vitamin D3*) 1,000 Unit Tablet, 1000 UNIT PO DAILY, TAB 08/13/18 Cholecalciferol* (Vitamin D3*) 1,000 Unit Tablet, 2000 UNIT PO DAILY, TAB 08/13/18 Potassium Chloride* (Potassium Chloride*) 20 Meq Tablet.er, 20 MEQ PO DAILY, TA B.SA 08/13/18 Duloxetine Hcl* (Cymbalta*) 60 Mg Capsule.dr, 60 MG PO DAILY, CAP 08/13/18 Oxycodone Hcl* (Oxycontin*) 15 Mg Tab.sr.12h, 15 MG PO Q12, TAB 08/13/18 Hydromorphone Hcl* (Dilaudid*) 8 Mg Tablet, 8 MG PO Q6H PRN for PAIN, TAB 08/13/18 Pantoprazole* (Protonix*) 40 Mg Tablet.dr, 40 MG PO AC BREAKFAST, TAB 08/13/18 Levothyroxine Sodium* (Levothyroxine Sodium*) 25 Mcg Tablet, 25 MCG PO BEFORE BREAKFAST, #30 TAB 08/13/18 Current Medications IV Flush (NS 3 ml) 3 ml PER PROTOCOL IV ; Start 08/13/18 at 20:00 Ondansetron HCl (Zofran Inj) 4 mg Q6H PRN IV NAUSEA AND/OR VOMITING Last administered on 09/10/18at 02:49; Admin Dose 4 MG; Start 08/13/18 at 20:00 Duloxetine HCl (Cymbalta) 60 mg DAILY PO Last administered on 09/09/18at 08:32; Admin Dose 60 MG; Start 08/14/18 at 09:00 Alteplase, Recombinant (Cathflo (Activase)) 2 mg MAY REPEAT X1 PRN CATHETER IF CATHETER REMAINS OCCULUDED Last administered on 09/06/18at 11:28; Admin Dose 2 MG; Start 08/15/18 at 06:00 Zinc Sulfate (Zinc Sulfate) 220 mg DAILY PO Last administered on 09/09/18at 08:33; Admin Dose 220 MG; Start 08/17/18 at 09:00 Eye Lubricant (Artificial Tears Oph) 1 drop Q6H PRN BOTH EYES DRY EYES Last administered on 08/19/18at 00:00; Admin Dose 1 DROP; Start 08/16/18 at 23:30 Miscellaneous Information 1 ea NOTE XX ; Start 08/17/18 at 10:30 Glucose (Glutose) 15 gm Q15M PRN PO DECREASED GLUCOSE; Start 08/17/18 at 10:30 Glucose (Glutose) 22.5 gm Q15M PRN PO DECREASED GLUCOSE; Start 08/17/18 at 10 :30 Dextrose (D50w Syringe) 25 ml Q15M PRN IV DECREASED GLUCOSE; Start 08/17/18 at 10:30 Dextrose (D50w Syringe) 50 ml Q15M PRN IV DECREASED GLUCOSE; Start 08/17/18 at 10:30 Glucagon (Glucagen) 1 mg Q15M PRN IM DECREASED GLUCOSE; Start 08/17/18 at 10:30 Glucose (Glutose) 15 gm Q15M PRN BUCCAL DECREASED GLUCOSE; Start 08/17/18 at 10:30 Zolpidem Tartrate (Ambien) 10 mg QHS PRN PO INSOMNIA Last administered on 09/09/18at 21:16; Admin Dose 10 MG; Start 08/20/18 at 11:30 Phenol (Cepastat Lozenge) 1 lozenge Q1H PRN MT THROAT PAIN Last administered on 09/07/18at 08:42; Admin Dose 1 LOZENGE; Start 08/21/18 at 11:00 Acetaminophen (Tylenol Tab) 500 mg Q6H PRN PO MILD PAIN(1-3)OR ELEVATED TEMP; Start 09/01/18 at 18:30 Lidocaine (Xylocaine (Viscous)) 15 ml QID PRN PO Pain in the mouth; Start 09/02 at 10:30 Daptomycin 500 mg/ Sodium Chloride 100 ml @ 200 mls/hr Q24H IVPB Last administered on 09/09/18 16:46; Admin Dose 200 MLS/HR; Start 09/03/18 at 16:00 Levofloxacin/ Dextrose 100 ml @ 100 mls/hr Q24H IVPB Last administered on 09/09/18 17:22; Admin Dose 100 MLS/HR; Start 09/05/18 at 16:30; Stop 09/19/18 at 16:29 Tramadol HCl (Ultram) 50 mg Q6H PRN PO MODERATE PAIN LEVEL 4-6 Last adm inistered on 09/09/18 16:27; Admin Dose 50 MG; Start 09/07/18 at 11:00 Gabapentin (Neurontin) 100 mg TID PO Last administered on 09/09/18 21:16; Admin Dose 100 MG; Start 09/08/18 at 13:00 Trazodone HCl (Desyrel) 50 mg BID PO Last administered on 09/09/18 21:16; Admin Dose 50 MG; Start 09/08/18 at 12:30 Lactobacillus Acidophilus/ Rhamnosus (Culturelle) 1 cap BID PO Last administered on 09/09/18 21:16; Admin Dose 1 CAP; Start 09/08/18 at 12:00 Ibuprofen (Motrin) 600 mg Q8 PRN PO SEVERE PAIN LEVEL 7-10; Start 09/08/18 at 19:00 Promethazine HCl/ Codeine (Phenergan/ Codeine) 10 ml Q4H PRN PO COUGH; Start 09/09/18 at 17:30 Lorazepam (Ativan) 2 mg Q12 PO Last administered on 09/09/18 21:16; Admin Dose 2 MG; Start 09/09/18 at 21:00 Oxymetazoline HCl (Afrin [place]) 2 spray BID NASAL ; Start 09/09/18 at 21:00 Pantoprazole 80 mg/Sodium Chloride 100 ml @ 10 mls/hr Q10H IV Last administer ed on 09/10/18 08:48; Admin Dose 10 MLS/HR; Start 09/09/18 at 22:30 Sodium Chloride 1,000 ml @ 70 mls/hr [id number] IV Last administered on 09/09/18 23:57; Admin Dose 100 MLS/HR; Start 09/09/18 at 22:30 Acetaminophen 100 ml @ 400 mls/hr Q12H PRN IVPB PAIN Last administered on 09/10/18at 08:48; Admin Dose 400 MLS/HR; Start 09/10/18 at 06:00; Stop 09/11/18 at 05:59 Cholecalciferol (Vitamin D) 2,000 unit DAILY PO ; Start 09/13/18 at 09:00 Diphenhydramine HCl (Benadryl) 50 mg Q4 PRN IV ITCHING Last administered on 09/10/18at 13:11; Admin Dose 50 MG; Start 09/10/18 at 13:00 Levothyroxine Sodium (Synthroid) 50 mcg BEFORE BREAKFAST PO ; Start 09/13/18 at 07:00 Lorazepam (Ativan) 2 mg Q6 PRN IV Anxiety Last administered on 09/10/18at 13:10; Admin Dose 2 MG; Start 09/10/18 at 13:00 Meds reviewed: Yes Allergies Coded Allergies: Iodinated Contrast- Oral and IV Dye (Verified Allergy, Severe, 08/20/18) Iodine and Iodide Containing Produc (Verified Allergy, Unknown, 08/13/18) Penicillins (Verified Allergy, Unknown, 08/13/18) ketorolac (Verified Allergy, Unknown, 08/13/18) morphine (Verified Allergy, Unknown, 08/13/18) vancomycin (Verified Allergy, Unknown, 08/13/18) Allergies Reviewed: Yes Labs/Studies Labs Reviewed: Reviewed by anesthesiologist Result Diagram: 09/10/18 0421 09/10/18 0421 Laboratory Tests 09/10/18 04:21 Blood Bank Test 09/10/18 06:00 Antibody Identification Completed Antibody Screen POSITIVE Blood Product Summary Counts Blood Type O POSITIVE Crossmatch Red Blood Cells test: N/A Pre-procedure Exam Last vitals Vital Signs Date Temp Pulse Resp B/P (MAP) Pulse Ox O2 O2 Flow FiO2 Time Delivery Rate 09/10/18 98.2 68 14 128/63 99 Room Air 15:30 (84) Airway: Adequate mouth opening, Adequate thyromental dist Mallampati: Mallampati II Teeth: Normal Lung: Normal Heart: Normal ASA Physical Status ASA physical status: 3 Emergency: None Planned Anesthetic General/MAC: Mask Planned Pain Management Parenteral pain med Pre-operative Attestations Prior to commencing anesthesia and surgery, the patient was re-evaluated, there was verification of: *The patient's identity *The results of appropriate recent lab work and preoperative vital signs *The above evaluation not changing prior to induction *Anesthetic plan, risk benefits, alternative and complications discussed with patient/family; questions answered; patient/family understands, accepts and wishes to proceed. ROXIE MAZARIEGOS MD Sep 10, 2018 16:05
[2018-09-10] MEDS ORDERED: PROPOFOL 20 ML ONE ×2 (16:11→16:18)
[2018-09-10] MEDS ORDERED: LIDOCAINE 2% (SDV) 5 ML INJ ONE (16:11)
[2018-09-10] MEDS ORDERED: ONDANSETRON 4 MG INJ IV PRN (16:30)
--- NOTE | 2018-09-10 16:36 | PAC ---
Date/Time of Note Date/Time of Note DATE: 09/10/18 TIME: 16:35 Post-Anesthesia Notes Post-Anesthesia Note Last documented vital signs Vital Signs Date Temp Pulse Resp B/P (MAP) Pulse Ox O2 O2 Flow FiO2 Time Delivery Rate 09/10/18 98.2 68 14 128/63 99 Room Air 15:30 (84) Activity: WNL Respiratory function: WNL Cardiovascular function: WNL Mental status: Baseline Pain reasonably controlled: Yes Hydration appropriate: Yes Nausea/Vomiting absent: Yes Comments BP: 108/60 HR: 60 RR: 15 T: 98 SaO2: 100% ROXIE MAZARIEGOS MD Sep 10, 2018 16:36
[2018-09-10] MEDS: DAPTOMYCIN 500 MG in SOD CHLORIDE 0.9% 100 ML IVPB SCH (17:03)
[2018-09-10] MEDS: LEVOFLOXACIN 500MG/D5W (PMX) 100 ML IVPB SCH (17:17)
[2018-09-10] MEDS: traMADol 50 MG TAB PO PRN (17:37)
[2018-09-10 20:00] VITALS: BP 122/59; PULSE 75; RESP 17
[2018-09-10] MEDS: ZOLPIDEM 5 MG TAB PO PRN (20:31)
[2018-09-11] MEDS: LORAZEPAM 2 MG INJ IV PRN ×3 (00:22→14:10)
[2018-09-11] MEDS: HYDROmorphONE 0.5 MG/0.5 ML SYG IV PRN ×4 (01:57→19:59)
[2018-09-11] MEDS: DIPHENHYDRAMINE 50 MG INJ IV PRN ×5 (01:58→19:59)
[2018-09-11 02:00] VITALS: BP 99/55; PULSE 71; RESP 18
[2018-09-11] MEDS: traMADol 50 MG TAB PO PRN ×2 (03:51→10:25)
[2018-09-11] MEDS: PANTOPRAZOLE IV 80 MG in SOD CHLORIDE 0.9% 100 ML IV SCH ×3 (04:30→21:03)
[2018-09-11 08:00] VITALS: BP 107/57; RESP 18
[2018-09-11] MEDS: OXYMETAZOLINE 0.05% 15 ML NAS SPRAY NASAL SCH ×2 (09:00→21:00)
[2018-09-11] MEDS: traZODone 50 MG TAB PO SCH ×2 (09:25→21:04)
[2018-09-11] MEDS: DULOXETINE 30 MG CAP DR PO SCH (09:25)
[2018-09-11] MEDS: LACTOBACILLUS RHAMNOSUS CAP PO SCH ×2 (09:26→21:04)
[2018-09-11] MEDS: LORAZEPAM 1 MG TAB PO SCH (09:26)
[2018-09-11] MEDS: GABAPENTIN 100 MG CAP PO SCH ×2 (09:26→13:00)
[2018-09-11] MEDS: ZINC SULFATE 220 MG CAP PO SCH (09:26)
--- NOTE | 2018-09-11 11:19 | CONS ---
Consult Date/Type/Reason Admit Date/Time Aug 13, 2018 at 17:22 Initial Consult Date 08/19/18 Type of Consult Pulmonary Requesting Provider: SHAQUILLE HARRIS Date/Time of Note DATE: 09/11/18 TIME: 11:18 Subjective Still coughing up blood according to staff. EGD was performed no significant findings. Objective Vital Signs Date Temp Pulse Resp B/P (MAP) Pulse Ox O2 O2 Flow FiO2 Time Delivery Rate 09/11/18 107/57 96 08:00 (74) 09/11/18 98.2 71 02:00 09/10/18 Room Air 15:30 Intake and Output 09/10/18 09/10/18 09/11/18 1515:00 23:00 07:00 IntakeIntake Total 420 ml 1480 ml 1017 ml OutputOutput Total 445 ml BalanceBalance 420 ml 1480 ml 572 ml Exam GENERAL: Well-nourished well-developed lady comfortable at rest no acute distress VITAL SIGNS: per chart NECK: Supple. No JVD or lymphadenopathy. CARDIAC EXAM: S1, S2. No added sounds or murmurs. CHEST: clear bilaterally, No added sounds, rales or wheezes ABDOMEN: Soft, nontender. No guarding or rebound. EXTREMITIES: No cyanosis, clubbing or edema. NEUROLOGIC: Generalized weakness. No focal deficits. Vent Setting Fraction of Inspired Oxygen pe: 21 Results/Medications Result Diagram: 09/11/18 0648 09/11/18 0648 Results 24 hrs Laboratory Tests Test 09/10/18 21:55 09/11/18 02:06 09/11/18 06:48 Hemoglobin 10.1 #L 9.6 L 9.8 L Hematocrit 31.4 #L 29.3 L 30.9 L White Blood Count 6.4 # Red Blood Count 3.96 #L Mean Corpuscular Volume 78.0 L Mean Corpuscular Hemoglobin 24.7 L Mean Corpuscular Hemoglobin Concent 31.7 L Red Cell Distribution Width 17.9 H Platelet Count 271 Mean Platelet Volume 10.1 Immature Granulocytes % 0.500 H Neutrophils % 70.5 Lymphocytes % 18.3 Monocytes % 7.6 Eosinophils % 2.5 Basophils % 0.6 Nucleated Red Blood Cells % 0.0 Immature Granulocytes # 0.030 Neutrophils # 4.5 Lymphocytes # 1.2 Monocytes # 0.5 Eosinophils # 0.2 Basophils # 0.0 Nucleated Red Blood Cells # 0.0 Sodium Level 143 Potassium Level 3.6 Chloride Level 107 Carbon Dioxide Level 28 Anion Gap 8 Blood Urea Nitrogen 10 Creatinine 0.56 Est Glomerular Filtrat Rate mL/min > 60 Glucose Level 111 Calcium Level 9.2 Total Bilirubin 0.5 Direct Bilirubin 0.00 Indirect Bilirubin 0.5 Aspartate Amino Transf (AST/SGOT) 20 Alanine Aminotransferase (ALT/SGPT) 24 Alkaline Phosphatase 84 Total Protein 6.2 Albumin 3.7 Globulin 2.50 Albumin/Globulin Ratio 1.48 Medications Current Medications IV Flush (NS 3 ml) 3 ml PER PROTOCOL IV ; Start 08/13/18 at 20:00 Ondansetron HCl (Zofran Inj) 4 mg Q6H PRN IV NAUSEA AND/OR VOMITING Last administered on 09/10/18at 21:59; Admin Dose 4 MG; Start 08/13/18 at 20:00 Duloxetine HCl (Cymbalta) 60 mg DAILY PO Last administered on 09/11/18at 09:25; Admin Dose 60 MG; Start 08/14/18 at 09:00 Alteplase, Recombinant (Cathflo (Activase)) 2 mg MAY REPEAT X1 PRN CATHETER IF CATHETER REMAINS OCCULUDED Last administered on 09/06/18at 11:28; Admin Dose 2 MG; Start 08/15/18 at 06:00 Zinc Sulfate (Zinc Sulfate) 220 mg DAILY PO Last administered on 09/11/18at 09:26; Admin Dose 220 MG; Start 08/17/18 at 09:00 Eye Lubricant (Artificial Tears Oph) 1 drop Q6H PRN BOTH EYES DRY EYES Last administered on 08/19/18at 00:00; Admin Dose 1 DROP; Start 08/16/18 at 23:30 Miscellaneous Information 1 ea NOTE XX ; Start 08/17/18 at 10:30 Glucose (Glutose) 15 gm Q15M PRN PO DECREASED GLUCOSE; Start 08/17/18 at 10:30 Glucose (Glutose) 22.5 gm Q15M PRN PO DECREASED GLUCOSE; Start 08/17/18 at 10:30 Dextrose (D50w Syringe) 25 ml Q15M PRN IV DECREASED GLUCOSE; Start 08/17/18 at 10:30 Dextrose (D50w Syringe) 50 ml Q15M PRN IV DECREASED GLUCOSE; Start 08/17/18 at 10:30 Glucagon (Glucagen) 1 mg Q15M PRN IM DECREASED GLUCOSE; Start 08/17/18 at 10:30 Glucose (Glutose) 15 gm Q15M PRN BUCCAL DECREASED GLUCOSE; Start 08/17/18 at 10:30 Zolpidem Tartrate (Ambien) 10 mg QHS PRN PO INSOMNIA Last administered on 09/10/18 20:31; Admin Dose 10 MG; Start 08/20/18 at 11:30 Phenol (Cepastat Lozenge) 1 lozenge Q1H PRN MT THROAT PAIN Last administered on 09/07/18 08:42; Admin Dose 1 LOZENGE; Start 08/21/18 at 11:00 Acetaminophen (Tylenol Tab) 500 mg Q6H PRN PO MILD PAIN(1-3)OR ELEVATED TEMP; Start 09/01/18 at 18:30 Lidocaine (Xylocaine (Viscous)) 15 ml QID PRN PO Pain in the mouth; Start 09/02/18 at 10:30 Daptomycin 500 mg/ Sodium Chloride 100 ml @ 200 mls/hr Q24H IVPB Last administered on 09/10/18 17:03; Admin Dose 200 MLS/HR; Start 09/03/18 at 16:00 Levofloxacin/ Dextrose 100 ml @ 100 mls/hr Q24H IVPB Last administered on 09/10/18 17:17; Admin Dose 100 MLS/HR; Start 09/05/18 at 16:30; Stop 09/19/18 at 16:29 Tramadol HCl (Ultram) 50 mg Q6H PRN PO MODERATE PAIN LEVEL 4-6 Last administered on 09/11/18 10:25; Admin Dose 50 MG; Start 09/07/18 at 11:00 Gabapentin (Neurontin) 100 mg TID PO Last administered on 09/11/18 09:26; Admin Dose 100 MG; Start 09/08/18 at 13:00 Trazodone HCl (Desyrel) 50 mg BID PO Last administered on 09/11/18 09:25; Admin Dose 50 MG; Start 09/08/18 at 12:30 Lactobacillus Acidophilus/ Rhamnosus (Culturelle) 1 cap BID PO Last ad ministered on 09/11/18 09:26; Admin Dose 1 CAP; Start 09/08/18 at 12:00 Ibuprofen (Motrin) 600 mg Q8 PRN PO SEVERE PAIN LEVEL 7-10; Start 09/08/18 at 19:00 Promethazine HCl/ Codeine (Phenergan/ Codeine) 10 ml Q4H PRN PO COUGH; Start 09/09/18 at 17:30 Lorazepam (Ativan) 2 mg Q12 PO Last administered on 09/11/18at 09:26; Admin Dose 2 MG; Start 09/09/18 at 21:00 Oxymetazoline HCl (Afrin [place]) 2 spray BID NASAL ; Start 09/09/18 at 21:00 Pantoprazole 80 mg/Sodium Chloride 100 ml @ 10 mls/hr Q10H IV Last administered on 09/11/18at 06:56; Admin Dose 10 MLS/HR; Start 09/09/18 at 22:30 Sodium Chloride 1,000 ml @ 70 mls/hr [id number] IV Last administered on 09/10/18at 21:45; Admin Dose 70 MLS/HR; Start 09/09/18 at 22:30 Cholecalciferol (Vitamin D) 2,000 unit DAILY PO ; Start 09/13/18 at 09:00 Diphenhydramine HCl (Benadryl) 50 mg Q4 PRN IV ITCHING Last administered on 09/11/18at 06:00; Admin Dose 50 MG; Start 09/10/18 at 13:00 Levothyroxine Sodium (Synthroid) 50 mcg BEFORE BREAKFAST PO ; Start 09/13/18 at 07:00 Lorazepam (Ativan) 2 mg Q6 PRN IV Anxiety Last administered on 09/11/18at 06:52; Admin Dose 2 MG; Start 09/10/18 at 13:00 Hydromorphone HCl (Dilaudid) 0.5 mg Q4H PRN IV SEVERE PAIN LEVEL 7-10 Last administered on 09/11/18at 01:57; Admin Dose 0.5 MG; Start 09/11/18 at 02:00 Assessment/Plan Hospital Course (Demo Recall) Assessment 1. History of recurrent hemoptysis versus hematemesis. Unremarkable CT chest. 2. History of thyroid cancer 3. Apparent history of lymphoma in the past. Plan 1. Repeat EGD if unremarkable questionable pulmonary AVM 2. Monitor H&H 3. Antidepressants Agree with transfer to [facility]. May need pulmonary angiogram to identify possible AV malformation prior to possible coiling. MARGE GUZMAN MD, [facility] Sep 11, 2018 11:19
[2018-09-11] MEDS: ONDANSETRON 4 MG INJ IV PRN (11:21)
--- NOTE | 2018-09-11 11:26 | CONS ---
Assessment/Plan Assessment/Plan Assessment/Plan (Daily) h/o Lymphoma -thus far there are no lesions that can be biopsied and it does not appear she has active cancer #Anemia-hgb 9.8 today - sp 2 units of PRBC transfusion -Hgb Electrophoresis - confirms B- thalassemia trait with Anemia -pt has had microcytic anemia requiring transfusions for years -will order a bone marrow bx at this time- pending -anemia panel-anemia positive # Hemoptysis VS Hematemesis - GI follows - 08/31/2018- S/P esophagogastroduodenoscopy- showed no evidence of any ga strointestinal bleed. #Hemoptysis, recurrent. -s/p unremarkable bronchoscopy at [facility] -s/p unremarkable flexible laryngoscopy 02/05/17 at [facility] -CT Chest pulmonary nodules are noted but are too small to biopsy -ID workup pending for pulmonary nodules- Numerous tiny lung nodules, increased in number from the chest CT dated May 22, 2018, with largest measuring 0.3 cm in the left apex - 02/2018- negative TB workup -08/21/18-CT Chest Angio- no new changes. will do Follow-up CT in X 3-4 months to insure stability as recommended - 08/24/18- Repeat bronchoscopy - wnl - Given her platelets and coag panel are wnl; Bronchoscopy is wnl #pancolitis. -Colonoscopy on 08/17/2018 showed patchy colitis. bx was negative -Stool positive for Giardia- pt on vancomycin and Flagyl Patient seen in collaboration with Dr Brown. Dw Staff Consultation Date/Type/Reason Admit Date/Time Aug 13, 2018 at 5:22 pm Initial Consult Date 08/19/18 Type of Consult ONCOLOGY Requesting Provider: SHAQUILLE HARRIS Date/Time of Note DATE: 09/11/18 TIME: 11:26 24 HR Interval Summary Free Text/Dictation - cough with blood - plan to transfer to [facility] - No new events reported last night Detailed Summary Eyes: no complaints ENT: no complaints Respiratory: no complaints Exam/Review of Systems Exam Vitals Vital Signs Date Temp Pulse Resp B/P (MAP) Pulse Ox O2 O2 Flow FiO2 Time Delivery Rate 09/11/18 18 107/57 96 08:00 (74) 09/11/18 98.2 71 02:00 2/15/19 Room Air 15:30 Intake and Output 09/10/18 09/10/18 09/11/18 1515:00 23:00 07:00 IntakeIntake Total 420 ml 1480 ml 1017 ml OutputOutput Total 445 ml BalanceBalance 420 ml 1480 ml 572 ml Constitutional: alert, well developed Psych: nl mood/affect Head: normocephalic Eyes: EOMI, nl lids, nl sclera ENMT: nl external ears & nose Neck: non-tender Respiratory: crackles/rales (at bases bilaterally), diminished breath sounds Cardiovascular: nl pulses, other (s1s2) Gastrointestinal: soft, non-tender Musculoskeletal: nl extremities to inspection Extremities: normal pulses Neurological: nl speech Skin: nl turgor Lymph: nontender Results Result Diagram: 09/11/18 0648 09/11/18 0648 Results 24hrs Laboratory Tests Test 09/10/18 21:55 09/11/18 02:06 09/11/18 06:48 Hemoglobin 10.1 #L 9.6 L 9.8 L Hematocrit 31.4 #L 29.3 L 30.9 L White Blood Count 6.4 # Red Blood Count 3.96 #L Mean Corpuscular Volume 78.0 L Mean Corpuscular Hemoglobin 24.7 L Mean Corpuscular Hemoglobin Concent 31.7 L Red Cell Distribution Width 17.9 H Platelet Count 271 Mean Platelet Volume 10.1 Immature Granulocytes % 0.500 H Neutrophils % 70.5 Lymphocytes % 18.3 Monocytes % 7.6 Eosinophils % 2.5 Basophils % 0.6 Nucleated Red Blood Cells % 0.0 Immature Granulocytes # 0.030 Neutrophils # 4.5 Lymphocytes # 1.2 Monocytes # 0.5 Eosinophils # 0.2 Basophils # 0.0 Nucleated Red Blood Cells # 0.0 Sodium Level 143 Potassium Level 3.6 Chloride Level 107 Carbon Dioxide Level 28 Anion Gap 8 Blood Urea Nitrogen 10 Creatinine 0.56 Est Glomerular Filtrat Rate mL/min > 60 Glucose Level 111 Calcium Level 9.2 Total Bilirubin 0.5 Direct Bilirubin 0.00 Indirect Bilirubin 0.5 Aspartate Amino Transf (AST/SGOT) 20 Alanine Aminotransferase (ALT/SGPT) 24 Alkaline Phosphatase 84 Total Protein 6.2 Albumin 3.7 Globulin 2.50 Albumin/Globulin Ratio 1.48 Medications Medication Current Medications IV Flush (NS 3 ml) 3 ml PER PROTOCOL IV ; Start 08/13/18 at 20:00 Ondansetron HCl (Zofran Inj) 4 mg Q6H PRN IV NAUSEA AND/OR VOMITING Last administered on 09/11/18 11:21; Admin Dose 4 MG; Start 08/13/18 at 20:00 Duloxetine HCl (Cymbalta) 60 mg DAILY PO Last administered on 09/11/18 09:25; Admin Dose 60 MG; Start 08/14/18 at 09:00 Alteplase, Recombinant (Cathflo (Activase)) 2 mg MAY REPEAT X1 PRN CATHETER IF CATHETER REMAINS OCCULUDED Last administered on 09/06/18 11:28; Admin Dose 2 MG; Start 08/15/18 at 06:00 Zinc Sulfate (Zinc Sulfate) 220 mg DAILY PO Last administered on 09/11/18at 0 9:26; Admin Dose 220 MG; Start 08/17/18 at 09:00 Eye Lubricant (Artificial Tears Oph) 1 drop Q6H PRN BOTH EYES DRY EYES Last administered on 08/19/18at 00:00; Admin Dose 1 DROP; Start 08/16/18 at 23:30 Miscellaneous Information 1 ea NOTE XX ; Start 08/17/18 at 10:30 Glucose (Glutose) 15 gm Q15M PRN PO DECREASED GLUCOSE; Start 08/17/18 at 10:30 Glucose (Glutose) 22.5 gm Q15M PRN PO DECREASED GLUCOSE; Start 08/17/18 at 10:30 Dextrose (D50w Syringe) 25 ml Q15M PRN IV DECREASED GLUCOSE; Start 08/17/18 at 10:30 Dextrose (D50w Syringe) 50 ml Q15M PRN IV DECREASED GLUCOSE; Start 08/17/18 at 10:30 Glucagon (Glucagen) 1 mg Q15M PRN IM DECREASED GLUCOSE; Start 08/17/18 at 10:30 Glucose (Glutose) 15 gm Q15M PRN BUCCAL DECREASED GLUCOSE; Start 08/17/18 at 10:30 Zolpidem Tartrate (Ambien) 10 mg QHS PRN PO INSOMNIA Last administered on 09/10/18 20:31; Admin Dose 10 MG; Start 08/20/18 at 11:30 Phenol (Cepastat Lozenge) 1 lozenge Q1H PRN MT THROAT PAIN Last administered on 2/12/19at 08:42; Admin Dose 1 LOZENGE; Start 08/21/18 at 11:00 Acetaminophen (Tylenol Tab) 500 mg Q6H PRN PO MILD PAIN(1-3)OR ELEVATED TEMP; Start 09/01/18 at 18:30 Lidocaine (Xylocaine (Viscous)) 15 ml QID PRN PO Pain in the mouth; Start 09/02/18 at 10:30 Daptomycin 500 mg/ Sodium Chloride 100 ml @ 200 mls/hr Q24H IVPB Last administered on 09/10/18 17:03; Admin Dose 200 MLS/HR; Start 09/03/18 at 16:00 Levofloxacin/ Dextrose 100 ml @ 100 mls/hr Q24H IVPB Last administered on 09/10/18 17:17; Admin Dose 100 MLS/HR; Start 09/05/18 at 16:30; Stop 09/19/18 at 16:29 Tramadol HCl (Ultram) 50 mg Q6H PRN PO MODERATE PAIN LEVEL 4-6 Last administered on 09/11/18 10:25; Admin Dose 50 MG; Start 09/07/18 at 11:00 Gabapentin (Neurontin) 100 mg TID PO Last administered on 09/11/18 09:26; Admin Dose 100 MG; Start 09/08/18 at 13:00 Trazodone HCl (Desyrel) 50 mg BID PO Last administered on 09/11/18 09:25; Admin Dose 50 MG; Start 09/08/18 at 12:30 Lactobacillus Acidophilus/ Rhamnosus (Culturelle) 1 cap BID PO Last administered on 09/11/18 09:26; Admin Dose 1 CAP; Start 09/08/18 at 12:00 Ibuprofen (Motrin) 600 mg Q8 PRN PO SEVERE PAIN LEVEL 7-10; Start 09/08/18 at 19:00 Promethazine HCl/ Codeine (Phenergan/ Codeine) 10 ml Q4H PRN PO COUGH; Start 09/09/18 at 17:30 Lorazepam (Ativan) 2 mg Q12 PO Last administered on 09/11/18 09:26; Admin Dose 2 MG; Start 09/09/18 at 21:00 Oxymetazoline HCl (Afrin [place]) 2 spray BID NASAL ; Start 09/09/18 at 21:00 Pantoprazole 80 mg/Sodium Chloride 100 ml @ 10 mls/hr Q10H IV Last administered on 09/11/18 06:56; Admin Dose 10 MLS/HR; Start 09/09/18 at 22:30 Sodium Chloride 1,000 ml @ 70 mls/hr [id number] IV Last administered on 09/10/18 21:45; Admin Dose 70 MLS/HR; Start 09/09/18 at 22:30 Cholecalciferol (Vitamin D) 2,000 unit DAILY PO ; Start 09/13/18 at 09:00 Diphenhydramine HCl (Benadryl) 50 mg Q4 PRN IV ITCHING Last administered on 09/11/18 06:00; Admin Dose 50 MG; Start 09/10/18 at 13:00 Levothyroxine Sodium (Synthroid) 50 mcg BEFORE BREAKFAST PO ; Start 09/13/18 at 07:00 Lorazepam (Ativan) 2 mg Q6 PRN IV Anxiety Last administered on 09/11/18at 06:52; Admin Dose 2 MG; Start 09/10/18 at 13:00 Hydromorphone HCl (Dilaudid) 0.5 mg Q4H PRN IV SEVERE PAIN LEVEL 7-10 Last administered on 09/11/18at 01:57; Admin Dose 0.5 MG; Start 09/11/18 at 02:00 SULEMA WRIGHT Sep 11, 2018 11:26 am
--- NOTE | 2018-09-11 13:03 | PN ---
Date/Time of Note Date/Time of Note DATE: 09/11/18 TIME: 12:57 Assessment/Plan VTE Prophylaxis Risk score (from Ns)>0 risk: 7 SCD applied (from Ns): No SCD contraindicated: other (scds) Pharmacological prophylaxis: other (scds) Lines/Catheters IV [facility]ter [facility] (from [facility]): PICC Line Central line still needed: Yes (meds) Urinary Cath still in place: No Assessment/Plan Hospital Course Assessment/Plan Assessment: Epigastric pain Hemoptysis vs Hematemesis S/p EGD 08/31/18 -normal exam - S/p Bronchoscopy - negative EGD 09/10/18 No GI bleeding noted again Given a completely normal EGD again, the blood is likely non-GI Colitis, involving the ascending, transverse, descending colon. -Stool positive for Giardia- treatment completed -CDIFF neg, stool cx- prelim- coliform -Fecal leukocytes rare -O&P- neg 08/17/18 sigmoidoscopy Patchy colitis biopsies taken to rule out IBD etiology Transverse colon biopsy:focal mucin depletion and atrophy of colon crypts with increased regenerative activity, suggesting a healing erosion site. There is no evidence of acute colitis, active chronic colitis or malignancy. Rectum biopsy: Normal colon mucosa with focal acute hemorrhage in the superficial lamina propria, histologically non-specific. There is no evidence of colitis or malignancy. Leukocytosis- resolve Abdominal pain Hodgkin's lymphoma of the lung History of thyroid cancer diagnosed in 2007, status post surgery History of PE- s/p IVC filter placement Conjunctivitis OD- on ABX gtt- resolved Plan: Unlikely GI source for bleeding Monitor labs D/c in process to transfer to tertiary center GI will sign off-but will be available upon reconsult as needed Continue collaboration with Dr. Ewing/Jakob Subjective/Free text: Course reviewed with nursing staff Patient interviewed and examined All labs, imaging and other results reviewed Patient continues to have hemoptysis, hemoglobin stable Pending transfer to tertiary center. Pt would like to speak to CM prior to trans marichuy, awaiting that conversation. No c/o n/v or abd pain. PHYSICAL EXAMINATION: GENERAL: Alert & oriented x 3, in no acute distress SKIN: No lesions CHEST: Inspection within normal limits. CARDIOVASCULAR: Heart: Regular rate and rhythm RESPIRATORY: Lungs clear to auscultation and percussion, no wheezing, no rubs GASTROINTESTINAL AND LIVER: Abdomen: Soft, epigastric and lower tenderness- resolved, non-distended, no hernias, no rebound tenderness, normoactive bowel sounds. Rectal: Result Diagram: 09/11/18 0648 09/11/18 0648 Results 24hrs Laboratory Tests Test 09/10/18 21:55 09/11/18 02:06 09/11/18 06:48 Hemoglobin 10.1 #L 9.6 L 9.8 L Hematocrit 31.4 #L 29.3 L 30.9 L White Blood Count 6.4 # Red Blood Count 3.96 #L Mean Corpuscular Volume 78.0 L Mean Corpuscular Hemoglobin 24.7 L Mean Corpuscular Hemoglobin Concent 31.7 L Red Cell Distribution Width 17.9 H Platelet Count 271 Mean Platelet Volume 10.1 Immature Granulocytes % 0.500 H Neutrophils % 70.5 Lymphocytes % 18.3 Monocytes % 7.6 Eosinophils % 2.5 Basophils % 0.6 Nucleated Red Blood Cells % 0.0 Immature Granulocytes # 0.030 Neutrophils # 4.5 Lymphocytes # 1.2 Monocytes # 0.5 Eosinophils # 0.2 Basophils # 0.0 Nucleated Red Blood Cells # 0.0 Sodium Level 143 Potassium Level 3.6 Chloride Level 107 Carbon Dioxide Level 28 Anion Gap 8 Blood Urea Nitrogen 10 Creatinine 0.56 Est Glomerular Filtrat Rate mL/min > 60 Glucose Level 111 Calcium Level 9.2 Total Bilirubin 0.5 Direct Bilirubin 0.00 Indirect Bilirubin 0.5 Aspartate Amino Transf (AST/SGOT) 20 Alanine Aminotransferase (ALT/SGPT) 24 Alkaline Phosphatase 84 Total Protein 6.2 Albumin 3.7 Globulin 2.50 Albumin/Globulin Ratio 1.48 Exam/Review of Systems Exam Vitals Vital Signs Date Temp Pulse Resp B/P (MAP) Pulse Ox O2 O2 Flow FiO2 Time Delivery Rate 09/11/18 18 107/57 96 08:00 (74) 09/11/18 98.2 71 02:00 09/10/18 Room Air 15:30 Intake and Output 09/10/18 09/10/18 09/11/18 1515:00 23:00 07:00 IntakeIntake Total 420 ml 1480 ml 1017 ml OutputOutput Total 445 ml BalanceBalance 420 ml 1480 ml 572 ml Results Results 24hrs Laboratory Tests Test 09/10/18 21:55 09/11/18 02:06 09/11/18 06:48 Hemoglobin 10.1 #L 9.6 L 9.8 L Hematocrit 31.4 #L 29.3 L 30.9 L White Blood Count 6.4 # Red Blood Count 3.96 #L Mean Corpuscular Volume 78.0 L Mean Corpuscular Hemoglobin 24.7 L Mean Corpuscular Hemoglobin Concent 31.7 L Red Cell Distribution Width 17.9 H Platelet Count 271 Mean Platelet Volume 10.1 Immature Granulocytes % 0.500 H Neutrophils % 70.5 Lymphocytes % 18.3 Monocytes % 7.6 Eosinophils % 2.5 Basophils % 0.6 Nucleated Red Blood Cells % 0.0 Immature Granulocytes # 0.030 Neutrophils # 4.5 Lymphocytes # 1.2 Monocytes # 0.5 Eosinophils # 0.2 Basophils # 0.0 Nucleated Red Blood Cells # 0.0 Sodium Level 143 Potassium Level 3.6 Chloride Level 107 Carbon Dioxide Level 28 Anion Gap 8 Blood Urea Nitrogen 10 Creatinine 0.56 Est Glomerular Filtrat Rate mL/min > 60 Glucose Level 111 Calcium Level 9.2 Total Bilirubin 0.5 Direct Bilirubin 0.00 Indirect Bilirubin 0.5 Aspartate Amino Transf (AST/SGOT) 20 Alanine Aminotransferase (ALT/SGPT) 24 Alkaline Phosphatase 84 Total Protein 6.2 Albumin 3.7 Globulin 2.50 Albumin/Globulin Ratio 1.48 Medications Medication Current Medications IV Flush (NS 3 ml) 3 ml PER PROTOCOL IV ; Start 08/13/18 at 20:00 Ondansetron HCl (Zofran Inj) 4 mg Q6H PRN IV NAUSEA AND/OR VOMITING Last administered on 09/11/18 11:21; Admin Dose 4 MG; Start 08/13/18 at 20:00 Duloxetine HCl (Cymbalta) 60 mg DAILY PO Last administered on 09/11/18 09:25; Admin Dose 60 MG; Start 08/14/18 at 09:00 Alteplase, Recombinant (Cathflo (Activase)) 2 mg MAY REPEAT X1 PRN CATHETER IF CATHETER REMAINS OCCULUDED Last administered on 09/06/18at 11:28; Admin Dose 2 MG; Start 08/15/18 at 06:00 Zinc Sulfate (Zinc Sulfate) 220 mg DAILY PO Last administered on 09/11/18 09:26; Admin Dose 220 MG; Start 08/17/18 at 09:00 Eye Lubricant (Artificial Tears Oph) 1 drop Q6H PRN BOTH EYES DRY EYES Last administered on 08/19/18at 00:00; Admin Dose 1 DROP; Start 08/16/18 at 23:30 Miscellaneous Information 1 ea NOTE XX ; Start 08/17/18 at 10:30 Glucose (Glutose) 15 gm Q15M PRN PO DECREASED GLUCOSE; Start 08/17/18 at 10:30 Glucose (Glutose) 22.5 gm Q15M PRN PO DECREASED GLUCOSE; Start 08/17/18 at 10:30 Dextrose (D50w Syringe) 25 ml Q15M PRN IV DECREASED GLUCOSE; Start 08/17/18 at 10:30 Dextrose (D50w Syringe) 50 ml Q15M PRN IV DECREASED GLUCOSE; Start 08/17/18 at 10:30 Glucagon (Glucagen) 1 mg Q15M PRN IM DECREASED GLUCOSE; Start 08/17/18 at 10:30 Glucose (Glutose) 15 gm Q15M PRN BUCCAL DECREASED GLUCOSE; Start 08/17/18 at 10:30 Zolpidem Tartrate (Ambien) 10 mg QHS PRN PO INSOMNIA Last administered on 09/10/18at 20:31; Admin Dose 10 MG; Start 08/20/18 at 11:30 Phenol (Cepastat Lozenge) 1 lozenge Q1H PRN MT THROAT PAIN Last administered on 09/07/18at 08:42; Admin Dose 1 LOZENGE; Start 08/21/18 at 11:00 Acetaminophen (Tylenol Tab) 500 mg Q6H PRN PO MILD PAIN(1-3)OR ELEVATED TEMP; Start 09/01/18 at 18:30 Lidocaine (Xylocaine (Viscous)) 15 ml QID PRN PO Pain in the mouth; Start 09/02/18 at 10:30 Daptomycin 500 mg/ Sodium Chloride 100 ml @ 200 mls/hr Q24H IVPB Last administered on 09/10/18at 17:03; Admin Dose 200 MLS/HR; Start 09/03/18 at 16:00 Levofloxacin/ Dextrose 100 ml @ 100 mls/hr Q24H IVPB Last administered on 09/10/18at 17:17; Admin Dose 100 MLS/HR; Start 09/05/18 at 16:30; Stop 09/19/18 at 16:29 Tramadol HCl (Ultram) 50 mg Q6H PRN PO MODERATE PAIN LEVEL 4-6 Last administered on 09/11/18 10:25; Admin Dose 50 MG; Start 09/07/18 at 11:00 Gabapentin (Neurontin) 100 mg TID PO Last administered on 09/11/18 09:26; Admin Dose 100 MG; Start 09/08/18 at 13:00 Trazodone HCl (Desyrel) 50 mg BID PO Last administered on 09/11/18 09:25; Admin Dose 50 MG; Start 09/08/18 at 12:30 Lactobacillus Acidophilus/ Rhamnosus (Culturelle) 1 cap BID PO Last administered on 09/11/18 09:26; Admin Dose 1 CAP; Start 09/08/18 at 12:00 Ibuprofen (Motrin) 600 mg Q8 PRN PO SEVERE PAIN LEVEL 7-10; Start 09/08/18 at 19:00 Promethazine HCl/ Codeine (Phenergan/ Codeine) 10 ml Q4H PRN PO COUGH; Start 09/09/18 at 17:30 Lorazepam (Ativan) 2 mg Q12 PO Last administered on 09/11/18 09:26; Admin Dose 2 MG; Start 09/09/18 at 21:00 Oxymetazoline HCl (Afrin [place]) 2 spray BID NASAL ; Start 09/09/18 at 21:00 Pantoprazole 80 mg/Sodium Chloride 100 ml @ 10 mls/hr Q10H IV Last administered on 09/11/18 06:56; Admin Dose 10 MLS/HR; Start 09/09/18 at 22:30 Sodium Chloride 1,000 ml @ 70 mls/hr [id number] IV Last administered on 09/10/18 21:45; Admin Dose 70 MLS/HR; Start 09/09/18 at 22:30 Cholecalciferol (Vitamin D) 2,000 unit DAILY PO ; Start 09/13/18 at 09:00 Diphenhydramine HCl (Benadryl) 50 mg Q4 PRN IV ITCHING Last administered on 09/11/18 11:58; Admin Dose 50 MG; Start 09/10/18 at 13:00 Levothyroxine Sodium (Synthroid) 50 mcg BEFORE BREAKFAST PO ; Start 09/13/18 at 07:00 Lorazepam (Ativan) 2 mg Q6 PRN IV Anxiety Last administered on 09/11/18 06:52; Admin Dose 2 MG; Start 09/10/18 at 13:00 Hydromorphone HCl (Dilaudid) 0.5 mg Q4H PRN IV SEVERE PAIN LEVEL 7-10 Last administered on 09/11/18at 11:58; Admin Dose 0.5 MG; Start 09/11/18 at 02:00 VADIM MCGILL Sep 11, 2018 13:03
[2018-09-11] MEDS: DAPTOMYCIN 500 MG in SOD CHLORIDE 0.9% 100 ML IVPB SCH (16:06)
[2018-09-11] MEDS: LEVOFLOXACIN 500MG/D5W (PMX) 100 ML IVPB SCH (16:47)
[2018-09-11] MEDS: SOD CHLORIDE 0.9% 1,000 ML IV SCH (16:51)
[2018-09-11] MEDS: CEPASTAT LOZENGE MT PRN (21:04)
[2018-09-11] MEDS: ZOLPIDEM 5 MG TAB PO PRN (21:04)
[2018-09-11] MEDS: METHADONE (1 MG/ML 5 ML PO UD SYG) PO SCH (21:04)
--- NOTE | 2018-09-11 21:31 | PN ---
Date/Time of Note Date/Time of Note DATE: 09/11/18 TIME: 21:20 Assessment/Plan VTE Prophylaxis Risk score (from Ns)>0 risk: 7 SCD applied (from [facility] [place] No SCD contraindicated: low risk/ambulating Pharmacological prophylaxis: NA/contraindicated Pharm contraindication: bleeding Lines/Catheters IV Catheter Type (from [facility]): PICC Line Central line still needed: Yes Urinary Cath still in place: No Assessment/Plan Hospital Course A/P 1. Hemoptysis vs Hematemesis? bronch/ egd/ laryngoscopy (09/01): [facility]. Past egd/bronch in [place] unremarkable. Refused tertiary eval in past. No path lesions/ scars. No bleeding diathesis. Recurrence noted. - Vasculitis, avm? CTA, rpt egd -ve.bronch/ angiogram? 2. H/o HL '08? chemo/ xrt; repeat chemo ' [facility]. Sp BmBx-appears negative. 3. Ho PE/ Dvt, ivc filter status 4. Diarrhea/ giardia; Rxed; however occ diarrhea noted colon 08/17; patchy colitis 5. H//o c diff 6. H/o thyroid nodule/ cancer; , sp doug in [place]? 5. UTI 6. H/o H pylori; EGD- 'ulcers' within the last year. Current EGD -ve. 7. Cons bacteremia 09/01. Stenotrophomonas maltophilia bacteremia 09/03: 2D -ve for veg. Source colon? Recent colonoscopy does not show any mass/ cancer. Immunosuppressed? 8. Anemia; beta thalassemia trait; sp bone marrow 08/20 negative; spep. 9. Chr pain syndrome. Pain seeking behavior. 10. Prediabetes? 11. Ulcer of the frenulum linguae. 12. Ftt, stable discharge to snf at some point. 13. Pulmonary nodules, stable, observe. Repeat imaging in 3 months. QGold -ve. 14. FMY S: 08/23 feels ok; still bleeding. no dyspnea/ fever 08/24: Events noted still having hemoptysis. No hematuria 08/25: Hemoptysis again this morning? Patient denies any hematemesis or epistaxis 08/26: Recurrent hemoptysis this morning. No dyspnea fever 08/27: Still having hemoptysis? No hematochezia melena hematuria or epistaxis. No dyspnea fever. 08/28: Events noted. She is worried about her hemoptysis. 08/29: Still bringing out a lot of blood. Hemoptysis versus hematemesis. Chronic stable we will consult GI. 09/06: Intermittent hemoptysis. Now having diarrhea without any GI bleed. No fevers. 09/07: Intermittent hemoptysis. Denies any fever vomiting GI bleed. No dyspnea. Does not have a regular oncologist and no outpatient support. Will need snf 09/08: 4 bouts diarrhea. no n/f. 'pain' in legs, abd. no known agg/rel factors. toradol- headache? no h/o rash/ dyspnea 09/09: Hemoptysis noted again. 77 m? [employer], vss. crying, but refusing working/ cxr. Denies any chest pain postnasal drip. No GI bleed. States of having lower abd/ suprapubic tenderness but no dysuria hematuria. Back pain upper/ around her shoulder blades. 09/10: coughing/ vomiting blood. 'pain', lwr abd/ back. now placed in front of nursing station 09/11: hemoptysis noted. Refuses therapy/ studies without dilaudid. Threatened to pull out picc. For tertiary eval. O: vss PE No pallor. Throat clear adentous Reg Clear Benign, mild suprapubic tenderness; nd; no RRG No edema Result Diagram: 09/11/18 1822 09/11/18 0648 Results 24hrs Laboratory Tests Test 09/10/18 21:55 09/11/18 02:06 09/11/18 06:48 09/11/18 11:58 Hemoglobin 10.1 #L 9.6 L 9.8 L 10.1 L Hematocrit 31.4 #L 29.3 L 30.9 L 31.3 L White Blood Count 6.4 # Red Blood Count 3.96 #L Mean Corpuscular 78.0 L Volume Mean Corpuscular 24.7 L Hemoglobin Mean Corpuscular 31.7 L Hemoglobin Concent Red Cell 17.9 H Distribution Width Platelet Count 271 Mean Platelet Volume 10.1 Immature 0.500 H Granulocytes % Neutrophils % 70.5 Lymphocytes % 18.3 Monocytes % 7.6 Eosinophils % 2.5 Basophils % 0.6 Nucleated Red Blood 0.0 Cells % Immature 0.030 Granulocytes # Neutrophils # 4.5 Lymphocytes # 1.2 Monocytes # 0.5 Eosinophils # 0.2 Basophils # 0.0 Nucleated Red Blood 0.0 Cells # Sodium Level 143 Potassium Level 3.6 Chloride Level 107 Carbon Dioxide Level 28 Anion Gap 8 Blood Urea Nitrogen 10 Creatinine 0.56 Est Glomerular > 60 Filtrat Rate mL/min Glucose Level 111 Calcium Level 9.2 Total Bilirubin 0.5 Direct Bilirubin 0.00 Indirect Bilirubin 0.5 Aspartate Amino 20 Transf (AST/SGOT) Alanine 24 Aminotransferase (AL T/SGPT) Alkaline Phosphatase 84 Total Protein 6.2 Albumin 3.7 Globulin 2.50 Albumin/Globulin 1.48 Ratio Test 09/11/18 18:22 Hemoglobin 8.6 L Hematocrit 27.2 L Exam/Review of Systems Exam Vitals Vital Signs Date Temp Pulse Resp B/P (MAP) Pulse Ox O2 O2 Flow FiO2 Time Delivery Rate 09/11/18 18 107/57 96 08:00 (74) 09/11/18 98.2 71 02:00 09/10/18 Room Air 15:30 Intake and Output 09/10/18 09/10/18 09/11/18 1515:00 23:00 07:00 IntakeIntake Total 420 ml 1480 ml 1017 ml OutputOutput Total 445 ml BalanceBalance 420 ml 1480 ml 572 ml Results Results 24hrs Laboratory Tests Test 09/10/18 21:55 09/11/18 02:06 09/11/18 06:48 09/11/18 11:58 Hemoglobin 10.1 #L 9.6 L 9.8 L 10.1 L Hematocrit 31.4 #L 29.3 L 30.9 L 31.3 L White Blood Count 6.4 # Red Blood Count 3.96 #L Mean Corpuscular 78.0 L Volume Mean Corpuscular 24.7 L Hemoglobin Mean Corpuscular 31.7 L Hemoglobin Concent Red Cell 17.9 H Distribution Width Platelet Count 271 Mean Platelet Volume 10.1 Immature 0.500 H Granulocytes % Neutrophils % 70.5 Lymphocytes % 18.3 Monocytes % 7.6 Eosinophils % 2.5 Basophils % 0.6 Nucleated Red Blood 0.0 Cells % Immature 0.030 Granulocytes # Neutrophils # 4.5 Lymphocytes # 1.2 Monocytes # 0.5 Eosinophils # 0.2 Basophils # 0.0 Nucleated Red Blood 0.0 Cells # Sodium Level 143 Potassium Level 3.6 Chloride Level 107 Carbon Dioxide Level 28 Anion Gap 8 Blood Urea Nitrogen 10 Creatinine 0.56 Est Glomerular > 60 Filtrat Rate mL/min Glucose Level 111 Calcium Level 9.2 Total Bilirubin 0.5 Direct Bilirubin 0.00 Indirect Bilirubin 0.5 Aspartate Amino 20 Transf (AST/SGOT) Alanine 24 Aminotransferase (AL T/SGPT) Alkaline Phosphatase 84 Total Protein 6.2 Albumin 3.7 Globulin 2.50 Albumin/Globulin 1.48 Ratio Test 09/11/18 18:22 Hemoglobin 8.6 L Hematocrit 27.2 L Medications Medication Current Medications IV Flush (NS 3 ml) 3 ml PER PROTOCOL IV ; Start 08/13/18 at 20:00 Ondansetron HCl (Zofran Inj) 4 mg Q6H PRN IV NAUSEA AND/OR VOMITING Last administered on 09/11/18at 11:21; Admin Dose 4 MG; Start 08/13/18 at 20:00 Duloxetine HCl (Cymbalta) 60 mg DAILY PO Last administered on 09/11/18at 09:25; Admin Dose 60 MG; Start 08/14/18 at 09:00 Alteplase, Recombinant (Cathflo (Activase)) 2 mg MAY REPEAT X1 PRN CATHETER IF CATHETER REMAINS OCCULUDED Last administered on 09/06/18at 11:28; Admin Dose 2 MG; Start 08/15/18 at 06:00 Zinc Sulfate (Zinc Sulfate) 220 mg DAILY PO Last administered on 09/11/18at 09:26; Admin Dose 220 MG; Start 08/17/18 at 09:00 Eye Lubricant (Artificial Tears Oph) 1 drop Q6H PRN BOTH EYES DRY EYES Last administered on 08/19/18at 00:00; Admin Dose 1 DROP; Start 08/16/18 at 23:30 Miscellaneous Information 1 ea NOTE XX ; Start 08/17/18 at 10:30 Glucose (Glutose) 15 gm Q15M PRN PO DECREASED GLUCOSE; Start 08/17/18 at 10:30 Glucose (Glutose) 22.5 gm Q15M PRN PO DECREASED GLUCOSE; Start 08/17/18 at 10:30 Dextrose (D50w Syringe) 25 ml Q15M PRN IV DECREASED GLUCOSE; Start 08/17/18 at 10:30 Dextrose (D50w Syringe) 50 ml Q15M PRN IV DECREASED GLUCOSE; Start 08/17/18 at 10:30 Glucagon (Glucagen) 1 mg Q15M PRN IM DECREASED GLUCOSE; Start 08/17/18 at 10:30 Glucose (Glutose) 15 gm Q15M PRN BUCCAL DECREASED GLUCOSE; Start 08/17/18 at 10:30 Zolpidem Tartrate (Ambien) 10 mg QHS PRN PO INSOMNIA Last administered on 09/11/18 21:04; Admin Dose 10 MG; Start 08/20/18 at 11:30 Phenol (Cepastat Lozenge) 1 lozenge Q1H PRN MT THROAT PAIN Last administered on 09/11/18 21:04; Admin Dose 1 LOZENGE; Start 08/21/18 at 11:00 Acetaminophen (Tylenol Tab) 500 mg Q6H PRN PO MILD PAIN(1-3)OR ELEVATED TEMP; Start 09/01/18 at 18:30 Lidocaine (Xylocaine (Viscous)) 15 ml QID PRN PO Pain in the mouth; Start 09/02/18 at 10:30 Daptomycin 500 mg/ Sodium Chloride 100 ml @ 200 mls/hr Q24H IVPB Last administered on 09/11/18 16:06; Admin Dose 200 MLS/HR; Start 09/03/18 at 16:00 Levofloxacin/ Dextrose 100 ml @ 100 mls/hr Q24H IVPB Last administered on 09/11/18at 16:47; Admin Dose 100 MLS/HR; Start 09/05/18 at 16:30; Stop 09/19/18 at 16:29 Trazodone HCl (Desyrel) 50 mg BID PO Last administered on 09/11/18at 21:04; Admin Dose 50 MG; Start 09/08/18 at 12:30 Lactobacillus Acidophilus/ Rhamnosus (Culturelle) 1 cap BID PO Last administered on 09/11/18 21:04; Admin Dose 1 CAP; Start 09/08/18 at 12:00 Promethazine HCl/ Codeine (Phenergan/ Codeine) 10 ml Q4H PRN PO COUGH; Start 09/09/18 at 17:30 Oxymetazoline HCl (Afrin [place]) 2 spray BID NASAL ; Start 09/09/18 at 21:00 Pantoprazole 80 mg/Sodium Chloride 100 ml @ 10 mls/hr Q10H IV Last administered on 09/11/18 21:03; Admin Dose 10 MLS/HR; Start 09/09/18 at 22:30 Sodium Chloride 1,000 ml @ 70 mls/hr [id number] IV Last administered on 09/11/18 16:51; Admin Dose 70 MLS/HR; Start 09/09/18 at 22:30 Cholecalciferol (Vitamin D) 2,000 unit DAILY PO ; Start 09/13/18 at 09:00 Diphenhydramine HCl (Benadryl) 50 mg Q4 PRN IV ITCHING Last administered on 09/11/18 19:59; Admin Dose 50 MG; Start 09/10/18 at 13:00 Levothyroxine Sodium (Synthroid) 50 mcg BEFORE BREAKFAST PO ; Start 09/13/18 at 07:00 Lorazepam (Ativan) 2 mg Q6 PRN IV Anxiety Last administered on 09/11/18 14:10; Admin Dose 2 MG; Start 09/10/18 at 13:00 Hydromorphone HCl (Dilaudid) 0.5 mg Q4H PRN IV SEVERE PAIN LEVEL 7-10 Last administered on 09/11/18 19:59; Admin Dose 0.5 MG; Start 09/11/18 at 02:00 Methadone HCl (Methadone Liq) 1 mg TID PO Last administered on 09/11/18 21:04; Admin Dose 1 MG; Start 09/11/18 at 21:00 LEON CORONA MD Sep 11, 2018 21:31
--- NOTE | 2018-09-11 23:25 | CONS ---
Assessment/Plan Assessment/Plan Hospital Course (Demo Recall) sepsis, endovascular infection - s/p sepsis d/t bacteremia - fever and tachycardia resolved - bacteremia d/t Coag Neg Staph and Stenotrophomonas maltophilia on 09/01/2018 and 09/02/2018; repeat blood cultures 09/04/18 negative - h/o "bacteremia due to enterococci" according to progress notes at [facility], but the actual microbiology report indicated blood culture was positive for ESBL+E. coli - h/o fungemia due to kaley glabrata, sensitive to fluconazole and to micafungin/caspofungin at [facility] - TTE done 09/04/18 showed no mention of valvular vegetations; EF 55-60% pulm - persistent hemoptysis of unknown etiology: Pt reports negative PPD last month at [facility]. - according to the microbiology report at [facility], Pt had ESBL+E. coli in her respiratory culture. Sputum cultures for AFB and fungi were negative at 8 weeks and at 4 weeks respectively at [facility] - Pt had negative bronchoscopy in 05/2018 at [facility], another at [facility] in 2017, and on 08/25/2018 at [facility] (no e/o bronchial airway bleeding according to Dr. Bello - Numerous tiny lung nodules, increased in number from the chest CT dated May 22, 2018, with largest measuring 0.3 cm in the left apex-->follow up CT on 09/10/2018 indicated: stable bilateral micronodules dating back to examination of at least 01/29/2017; RLL fibrosis. - Kaley albicans in sputum cx on 08/28/2018 - likely colonizer - so far: aspergillus antibody not detected, HIV negative, coccidioidomycosis serology negative, TB Quant Gold negative, 1,3 beta d glucan negative, procalc 09/01/18 was 0.30 GI - Delgado-colitis per CT 08/13/18 - S/p diarrhea on 09/06/18 - s/p EGD on 09/10/2018: no GI bleeding noted, reportedly completely normal - S/p sigmoidoscopy with biopsy 08/17/2018; path showed no e/o colitis or malignancy from transverse colon and rectum biopsies - S/p bloody diarrhea d/t Giardia; Pt took metronidazole for Giardia (08/14/2018- 08/21/2018) in 07/2018. - H/o C diff toxin negative PCR positive status at [facility]. Took a course of Fidaxomyxin x 10 days. C. diff was negative on 08/14/2018 at [facility] - H/o cholecystectomy heme/oncology - S/p CT guided bone marrow aspiration and biopsy 08/20/2018 - Microcytic anemia requiring PRBC d/t acute blood loss - Electrophoresis 08/19/18 showed: Evaluation suggests beta thalassemia trait with anemia. Iron deficiency must be ruled out. - H/o BUE and RLE DVT, s/p IVC filter in January 2018 - H/o Hodgkin lymphoma diagnosed in 2006 - H/o thyroid CA diagnosed in 2005, s/p resection, chemo and XRT - IVC filter placement - +Family hx of cancer (father of stomach CA, mother of lymphoma, paternal uncle had breast CA and 12 yo daughter has h/o brain tumor s/p surgery and resulting blindness) , renal - h/o UTI due to ESBL+E. coli - S/p PO levofloxacin (08/24/2018-08/28/2018) for probable UTI other conditions - a painful ulcer at frenulum, recurrent. According to Pt, topical steroid would worsen the pain. HIV negative, RPR non reactive, herpes 1 and 2 by PCR not detected; s/p trial of PO valacyclovir (08/27/2018-09/01/2018) - s/p bilateral conjunctivitis - improved s/p Cipro eye drops (08/18/18-08/23/18) - Hypothyroidism - HLD - S/p hypokalemia - OA - depression/anxiety - H/o x2 - Allergy to PCN and vancomycin (reaction unknown) Recommendations: - ordered: sputum for ova and parasite (micro, pathology) to r/o parasitic infections i.e. strongyloides, paragonomiasis - Continue daptomycin (clarify allergy to vanco; 09/02/2018-) and Levaquin (08/25/18-08/27/2018; restart 09/05/2018-) to complete 14 days from first negative blood culture; s/p Cefepime (09/03/18 - 09/05/18). Suggested end date of Dapto through 09/17/2018 and Levaquin through 09/18/2018 - Serial CK level (<20 on 09/03/2018, 39 on 09/10/2018) while on Dapto management d/w Pt and her RN [place] Consultation Date/Type/Reason Admit Date/Time Aug 13, 2018 at 17:22 Initial Consult Date 08/19/18 Type of Consult ID Requesting Provider: SHAQUILLE HARRIS Date/Time of Note DATE: 09/11/18 TIME: 23:21 24 HR Interval Summary Constitutional: other (not feeling well) Detailed Summary ENT: no complaints Respiratory: other (hemoptysis, pleuritic chest pain) Cardiovascular: no complaints Gastrointestinal: no complaints Genitourinary: no complaints Musculoskeletal: bone/joint pain (b/l shoulder pain as she had hemoptysis) Skin: no complaints Neurologic: no complaints Exam/Review of Systems Exam Vitals Vital Signs Date Temp Pulse Resp B/P (MAP) Pulse Ox O2 O2 Flow FiO2 Time Delivery Rate 09/11/18 107/57 96 08:00 (74) 09/11/18 98.2 71 02:00 09/10/18 Room Air 15:30 Intake and Output 09/10/18 09/10/18 09/11/18 1515:00 23:00 07:00 IntakeIntake Total 420 ml 1480 ml 1017 ml OutputOutput Total 445 ml BalanceBalance 420 ml 1480 ml 572 ml Constitutional: frail Psych: other (concerned) Head: normocephalic, atraumatic Eyes: nl conjunctiva, nl lids ENMT: nl external ears & nose, nl nasal mucosa & septum Neck: other (not swollen) Respiratory: clear to auscultation, normal air movement Cardiovascular: regular rate and rhythm, nl pulses Gastrointestinal: soft, non-tender Musculoskeletal: No swelling Extremities: normal pulses Skin: nl turgor; No rash or lesions Results Result Diagram: 09/11/18 1822 09/11/18 0648 Results 24hrs Laboratory Tests Test 09/11/18 02:06 09/11/18 06:48 09/11/18 11:58 09/11/18 18:22 Hemoglobin 9.6 L 9.8 L 10.1 L 8.6 L Hematocrit 29.3 L 30.9 L 31.3 L 27.2 L White Blood Count 6.4 # Red Blood Count 3.96 #L Mean Corpuscular 78.0 L Volume Mean Corpuscular 24.7 L Hemoglobin Mean Corpuscular 31.7 L Hemoglobin Concent Red Cell 17.9 H Distribution Width Platelet Count 271 Mean Platelet Volume 10.1 Immature 0.500 H Granulocytes % Neutrophils % 70.5 Lymphocytes % 18.3 Monocytes % 7.6 Eosinophils % 2.5 Basophils % 0.6 Nucleated Red Blood 0.0 Cells % Immature 0.030 Granulocytes # Neutrophils # 4.5 Lymphocytes # 1.2 Monocytes # 0.5 Eosinophils # 0.2 Basophils # 0.0 Nucleated Red Blood 0.0 Cells # Sodium Level 143 Potassium Level 3.6 Chloride Level 107 Carbon Dioxide Level 28 Anion Gap 8 Blood Urea Nitrogen 10 Creatinine 0.56 Est Glomerular > 60 Filtrat Rate mL/min Glucose Level 111 Calcium Level 9.2 Total Bilirubin 0.5 Direct Bilirubin 0.00 Indirect Bilirubin 0.5 Aspartate Amino 20 Transf (AST/SGOT) Alanine 24 Aminotransferase (AL T/SGPT) Alkaline Phosphatase 84 Total Protein 6.2 Albumin 3.7 Globulin 2.50 Albumin/Globulin 1.48 Ratio Medications Medication Current Medications IV Flush (NS 3 ml) 3 ml PER PROTOCOL IV ; Start 08/13/18 at 20:00 Ondansetron HCl (Zofran Inj) 4 mg Q6H PRN IV NAUSEA AND/OR VOMITING Last administered on 09/11/18 11:21; Admin Dose 4 MG; Start 08/13/18 at 20:00 Duloxetine HCl (Cymbalta) 60 mg DAILY PO Last administered on 09/11/18 09:25; Admin Dose 60 MG; Start 08/14/18 at 09:00 Alteplase, Recombinant (Cathflo (Activase)) 2 mg MAY REPEAT X1 PRN CATHETER IF CATHETER REMAINS OCCULUDED Last administered on 09/06/18 11:28; Admin Dose 2 MG; Start 08/15/18 at 06:00 Zinc Sulfate (Zinc Sulfate) 220 mg DAILY PO Last administered on 09/11/18 09:26; Admin Dose 220 MG; Start 08/17/18 at 09:00 Eye Lubricant (Artificial Tears Oph) 1 drop Q6H PRN BOTH EYES DRY EYES Last administered on 08/19/18at 00:00; Admin Dose 1 DROP; Start 08/16/18 at 23:30 Miscellaneous Information 1 ea NOTE XX ; Start 08/17/18 at 10:30 Glucose (Glutose) 15 gm Q15M PRN PO DECREASED GLUCOSE; Start 08/17/18 at 10:30 Glucose (Glutose) 22.5 gm Q15M PRN PO DECREASED GLUCOSE; Start 08/17/18 at 10:30 Dextrose (D50w Syringe) 25 ml Q15M PRN IV DECREASED GLUCOSE; Start 08/17/18 at 10:30 Dextrose (D50w Syringe) 50 ml Q15M PRN IV DECREASED GLUCOSE; Start 08/17/18 at 10:30 Glucagon (Glucagen) 1 mg Q15M PRN IM DECREASED GLUCOSE; Start 08/17/18 at 10:30 Glucose (Glutose) 15 gm Q15M PRN BUCCAL DECREASED GLUCOSE; Start 08/17/18 at 10:30 Zolpidem Tartrate (Ambien) 10 mg QHS PRN PO INSOMNIA Last administered on 09/11/18at 21:04; Admin Dose 10 MG; Start 08/20/18 at 11:30 Phenol (Cepastat Lozenge) 1 lozenge Q1H PRN MT THROAT PAIN Last administered on 09/11/18 21:04; Admin Dose 1 LOZENGE; Start 08/21/18 at 11:00 Acetaminophen (Tylenol Tab) 500 mg Q6H PRN PO MILD PAIN(1-3)OR ELEVATED TEMP; Start 09/01/18 at 18:30 Lidocaine (Xylocaine (Viscous)) 15 ml QID PRN PO Pain in the mouth; Start 09/02/18 at 10:30 Daptomycin 500 mg/ Sodium Chloride 100 ml @ 200 mls/hr Q24H IVPB Last admini stered on 09/11/18at 16:06; Admin Dose 200 MLS/HR; Start 09/03/18 at 16:00 Levofloxacin/ Dextrose 100 ml @ 100 mls/hr Q24H IVPB Last administered on 09/11/18at 16:47; Admin Dose 100 MLS/HR; Start 09/05/18 at 16:30; Stop 09/19/18 at 16:29 Trazodone HCl (Desyrel) 50 mg BID PO Last administered on 09/11/18at 21:04; Admin Dose 50 MG; Start 09/08/18 at 12:30 Lactobacillus Acidophilus/ Rhamnosus (Culturelle) 1 cap BID PO Last administered on 09/11/18at 21:04; Admin Dose 1 CAP; Start 09/08/18 at 12:00 Promethazine HCl/ Codeine (Phenergan/ Codeine) 10 ml Q4H PRN PO COUGH; Start 09/09/18 at 17:30 Oxymetazoline HCl (Afrin [place]) 2 spray BID NASAL ; Start 09/09/18 at 21:00 Pantoprazole 80 mg/Sodium Chloride 100 ml @ 10 mls/hr Q10H IV Last administered on 09/11/18at 21:03; Admin Dose 10 MLS/HR; Start 09/09/18 at 22:30 Cholecalciferol (Vitamin D) 2,000 unit DAILY PO ; Start 09/13/18 at 09:00 Diphenhydramine HCl (Benadryl) 50 mg Q4 PRN IV ITCHING Last administered on 09/11/18at 19:59; Admin Dose 50 MG; Start 09/10/18 at 13:00 Levothyroxine Sodium (Synthroid) 50 mcg BEFORE BREAKFAST PO ; Start 09/13/18 at 07:00 Lorazepam (Ativan) 2 mg Q6 PRN IV Anxiety Last administered on 09/11/18at 14:10; Admin Dose 2 MG; Start 09/10/18 at 13:00 Methadone HCl (Methadone Liq) 1 mg TID PO Last administered on 09/11/18at 21:04; Admin Dose 1 MG; Start 09/11/18 at 21:00 Hydromorphone HCl (Dilaudid) 1 mg Q4H PRN IV SEVERE PAIN LEVEL 7-10; Start 09/11/18 at 22:00 REGINA CARRASCO M.D. Sep 11, 2018 23:25
[2018-09-12] MEDS: HYDROmorphONE 1 MG/ML SYG IV PRN ×6 (00:04→20:29)
[2018-09-12] MEDS: DIPHENHYDRAMINE 50 MG INJ IV PRN ×6 (00:04→20:29)
[2018-09-12 02:14] VITALS: BP 114/58; PULSE 68; RESP 18
[2018-09-12] MEDS: LORAZEPAM 2 MG INJ IV PRN ×2 (02:34→17:26)
[2018-09-12] MEDS: OXYMETAZOLINE 0.05% 15 ML NAS SPRAY NASAL SCH ×2 (08:14→21:00)
[2018-09-12] MEDS: ZINC SULFATE 220 MG CAP PO SCH (08:14)
[2018-09-12] MEDS: DULOXETINE 30 MG CAP DR PO SCH (08:15)
[2018-09-12] MEDS: LACTOBACILLUS RHAMNOSUS CAP PO SCH ×2 (08:15→22:08)
[2018-09-12] MEDS: ONDANSETRON 4 MG INJ IV PRN (08:15)
[2018-09-12] MEDS: traZODone 50 MG TAB PO SCH ×2 (08:15→22:08)
[2018-09-12 08:16] VITALS: BP 98/65; PULSE 68; RESP 20
[2018-09-12] MEDS: METHADONE (1 MG/ML 5 ML PO UD SYG) PO SCH ×3 (09:37→22:09)
[2018-09-12] MEDS: PANTOPRAZOLE IV 80 MG in SOD CHLORIDE 0.9% 100 ML IV SCH (09:40)
--- NOTE | 2018-09-12 11:38 | CONS ---
Consult Date/Type/Reason Admit Date/Time Aug 13, 2018 at 17:22 Initial Consult Date 08/19/18 Type of Consult Pulmonary Requesting Provider: SHAQUILLE HARRIS Date/Time of Note DATE: 09/12/18 TIME: 11:37 Subjective Significant hemoptysis overnight. Patient stable this morning denies chest pain or respiratory distress. Objective Vital Signs Date Temp Pulse Resp B/P (MAP) Pulse Ox O2 O2 Flow FiO2 Time Delivery Rate 09/12/18 98.1 68 20 98/65 (76) 96 08:16 09/10/18 Room Air 15:30 Intake and Output 09/11/18 09/11/18 09/12/18 1515:00 23:00 07:00 IntakeIntake Total 860 ml 305 ml 380 ml OutputOutput Total 50 ml BalanceBalance 860 ml 255 ml 380 ml Exam GENERAL: Well-nourished well-developed lady comfortable at rest no acute distress VITAL SIGNS: per chart NECK: Supple. No JVD or lymphadenopathy. CARDIAC EXAM: S1, S2. No added sounds or murmurs. CHEST: clear bilaterally, No added sounds, rales or wheezes ABDOMEN: Soft, nontender. No guarding or rebound. EXTREMITIES: No cyanosis, clubbing or edema. NEUROLOGIC: Generalized weakness. No focal deficits. Vent Setting Fraction of Inspired Oxygen pe: 21 Results/Medications Result Diagram: 09/12/18 0835 09/12/18 0647 Results 24 hrs Laboratory Tests Test 09/11/18 11:58 09/11/18 18:22 09/12/18 06:40 09/12/18 06:47 Hemoglobin 10.1 L 8.6 L Hematocrit 31.3 L 27.2 L Lab Scanned BLOOD TRANSFUSIO Report N Sodium Level 141 Potassium Level 3.3 L Chloride Level 101 Carbon Dioxide 28 Level Anion Gap 12 Blood Urea 9 Nitrogen Creatinine 0.49 Est Glomerular > 60 Filtrat Rate mL/min Glucose Level 86 Calcium Level 8.6 Test 09/12/18 06:48 09/12/18 08:35 White Blood Count 3.3 #L Red Blood Count 3.29 L Hemoglobin 8.3 L 8.8 L Hematocrit 26.0 L 27.6 L Mean Corpuscular 79.0 L Volume Mean Corpuscular 25.2 L Hemoglobin Mean Corpuscular 31.9 L Hemoglobin Concen t Red Cell 18.4 H Distribution Width Platelet Count 190 # Mean Platelet 10.2 Volume Immature 0.600 H Granulocytes % Neutrophils % 67.9 Lymphocytes % 19.9 Monocytes % 9.2 Eosinophils % 1.8 Basophils % 0.6 Nucleated Red 0.0 Blood Cells % Immature 0.020 Granulocytes # Neutrophils # 2.2 Lymphocytes # 0.7 L Monocytes # 0.3 Eosinophils # 0.1 Basophils # 0.0 Nucleated Red 0.0 Blood Cells # Medications Current Medications IV Flush (NS 3 ml) 3 ml PER PROTOCOL IV ; Start 08/13/18 at 20:00 Ondansetron HCl (Zofran Inj) 4 mg Q6H PRN IV NAUSEA AND/OR VOMITING Last administered on 09/12/18at 08:15; Admin Dose 4 MG; Start 08/13/18 at 20:00 Duloxetine HCl (Cymbalta) 60 mg DAILY PO Last administered on 09/12/18at 08:15; Admin Dose 60 MG; Start 08/14/18 at 09:00 Alteplase, Recombinant (Cathflo (Activase)) 2 mg MAY REPEAT X1 PRN CATHETER IF CATHETER REMAINS OCCULUDED Last administered on 09/06/18at 11:28; Admin Dose 2 MG; Start 08/15/18 at 06:00 Zinc Sulfate (Zinc Sulfate) 220 mg DAILY PO Last administered on 09/12/18at 08:14; Admin Dose 220 MG; Start 08/17/18 at 09:00 Eye Lubricant (Artificial Tears Oph) 1 drop Q6H PRN BOTH EYES DRY EYES Last administered on 08/19/18at 00:00; Admin Dose 1 DROP; Start 08/16/18 at 23:30 Miscellaneous Information 1 ea NOTE XX ; Start 08/17/18 at 10:30 Glucose (Glutose) 15 gm Q15M PRN PO DECREASED GLUCOSE; Start 08/17/18 at 10:30 Glucose (Glutose) 22.5 gm Q15M PRN PO DECREASED GLUCOSE; Start 08/17/18 at 10:30 Dextrose (D50w Syringe) 25 ml Q15M PRN IV DECREASED GLUCOSE; Start 08/17/18 at 10:30 Dextrose (D50w Syringe) 50 ml Q15M PRN IV DECREASED GLUCOSE; Start 08/17/18 at 10:30 Glucagon (Glucagen) 1 mg Q15M PRN IM DECREASED GLUCOSE; Start 08/17/18 at 10:30 Glucose (Glutose) 15 gm Q15M PRN BUCCAL DECREASED GLUCOSE; Start 08/17/18 at 10:30 Zolpidem Tartrate (Ambien) 10 mg QHS PRN PO INSOMNIA Last administered on 09/11/18 21:04; Admin Dose 10 MG; Start 08/20/18 at 11:30 Phenol (Cepastat Lozenge) 1 lozenge Q1H PRN MT THROAT PAIN Last administered on 09/11/18 21:04; Admin Dose 1 LOZENGE; Start 08/21/18 at 11:00 Acetaminophen (Tylenol Tab) 500 mg Q6H PRN PO MILD PAIN(1-3)OR ELEVATED TEMP; Start 09/01/18 at 18:30 Lidocaine (Xylocaine (Viscous)) 15 ml QID PRN PO Pain in the mouth; Start 09/02/18 at 10:30 Daptomycin 500 mg/ Sodium Chloride 100 ml @ 200 mls/hr Q24H IVPB Last administered on 09/11/18at 16:06; Admin Dose 200 MLS/HR; Start 09/03/18 at 16:00 Levofloxacin/ Dextrose 100 ml @ 100 mls/hr Q24H IVPB Last administered on 09/11/18at 16:47; Admin Dose 100 MLS/HR; Start 09/05/18 at 16:30; Stop 09/19/18 at 16:29 Trazodone HCl (Desyrel) 50 mg BID PO Last administered on 09/12/18 08:15; Admin Dose 50 MG; Start 09/08/18 at 12:30 Lactobacillus Acidophilus/ Rhamnosus (Culturelle) 1 cap BID PO Last administered on 09/12/18at 08:15; Admin Dose 1 CAP; Start 09/08/18 at 12:00 Promethazine HCl/ Codeine (Phenergan/ Codeine) 10 ml Q4H PRN PO COUGH; Start 09/09/18 at 17:30 Oxymetazoline HCl (Afrin Blue) 2 spray BID NASAL ; Start 09/09/18 at 21:00 Pantoprazole 80 mg/Sodium Chloride 100 ml @ 10 mls/hr Q10H IV Last administered on 09/12/18at 09:40; Admin Dose 10 MLS/HR; Start 09/09/18 at 22:30 Cholecalciferol (Vitamin D) 2,000 unit DAILY PO ; Start 09/13/18 at 09:00 Diphenhydramine HCl (Benadryl) 50 mg Q4 PRN IV ITCHING Last administered on 09/12/18 08:15; Admin Dose 50 MG; Start 09/10/18 at 13:00 Levothyroxine Sodium (Synthroid) 50 mcg BEFORE BREAKFAST PO ; Start 09/13/18 at 07:00 Lorazepam (Ativan) 2 mg Q6 PRN IV Anxiety Last administered on 09/12/18at 02:34; Admin Dose 2 MG; Start 09/10/18 at 13:00 Methadone HCl (Methadone Liq) 1 mg TID PO Last administered on 09/12/18at 09:37; Admin Dose 1 MG; Start 09/11/18 at 21:00 Hydromorphone HCl (Dilaudid) 1 mg Q4H PRN IV SEVERE PAIN LEVEL 7-10 Last administered on 09/12/18 08:16; Admin Dose 1 MG; Start 09/11/18 at 22:00 Assessment/Plan Hospital Course (Demo Recall) Assessment 1. History of recurrent hemoptysis versus hematemesis. Unremarkable CT chest. Concerning for possible AV malformation. 2. History of thyroid cancer 3. Apparent history of lymphoma in the past. Plan 1. Pending transfer to tertiary care center with pulmonary arteriography may be helpful in confirming presence of AVM. If present will require either coiling or ablation. 2. Monitor H&H 3. Antidepressants Pending transfer to [facility]. MARGE GUZMAN MD, [facility] Sep 12, 2018 11:38
[2018-09-12 14:30] VITALS: BP 100/51; PULSE 84; RESP 18
--- NOTE | 2018-09-12 14:53 | CONS ---
Assessment/Plan Assessment/Plan Assessment/Plan (Daily) h/o Lymphoma -thus far there are no lesions that can be biopsied and it does not appear she has active cancer #Anemia-hgb 9.8 today - sp 2 units of PRBC transfusion -Hgb Electrophoresis - confirms B- thalassemia trait with Anemia -pt has had microcytic anemia requiring transfusions for years -will order a bone marrow bx at this time- pending -anemia panel-anemia positive # Hemoptysis VS Hematemesis - GI follows - 08/31/2018- S/P esophagogastroduodenoscopy- showed no evidence of any ga strointestinal bleed. #Hemoptysis, recurrent. -s/p unremarkable bronchoscopy at [facility] -s/p unremarkable flexible laryngoscopy 02/05/17 at [facility] -CT Chest pulmonary nodules are noted but are too small to biopsy -ID workup pending for pulmonary nodules- Numerous tiny lung nodules, increased in number from the chest CT dated May 22, 2018, with largest measuring 0.3 cm in the left apex - 02/2018- negative TB workup -08/21/18-CT Chest Angio- no new changes. will do Follow-up CT in X 3-4 months to insure stability as recommended - 08/24/18- Repeat bronchoscopy - wnl - Given her platelets and coag panel are wnl; Bronchoscopy is wnl #pancolitis. -Colonoscopy on 08/17/2018 showed patchy colitis. bx was negative -Stool positive for Giardia- pt on vancomycin and Flagyl - acute hypokalemia- per PMD Patient seen in collaboration with Dr Brown. Dw Staff Consultation Date/Type/Reason Admit Date/Time Aug 13, 2018 at 5:22 pm Initial Consult Date 08/19/18 Type of Consult ONCOLOGY Reason for Consultation Hx Lymphoma Requesting Provider: SHAQUILLE HARRIS Date/Time of Note DATE: 09/12/18 TIME: 14:53 24 HR Interval Summary Free Text/Dictation -reported cough blood -n new issues reported last night Detailed Summary Eyes: no complaints ENT: no complaints Respiratory: cough (w/blood) Gastrointestinal: no complaints Genitourinary: no complaints Musculoskeletal: other (eneral weakness) Skin: no complaints Neurologic: no complaints Endocrine: no complaints Psychological: nl mood/affect Exam/Review of Systems Exam Vitals Vital Signs Date Temp Pulse Resp B/P (MAP) Pulse Ox O2 O2 Flow FiO2 Time Delivery Rate 09/12/18 98.8 84 18 100/51 96 14:30 (67) 09/10/18 Room Air 15:30 Intake and Output 09/11/18 09/11/18 09/12/18 1515:00 23:00 07:00 IntakeIntake Total 860 ml 305 ml 380 ml OutputOutput Total 50 ml BalanceBalance 860 ml 255 ml 380 ml Constitutional: alert, well developed Psych: nl mood/affect Head: normocephalic Eyes: EOMI, nl lids ENMT: nl external ears & nose Neck: non-tender Respiratory: diminished breath sounds Cardiovascular: nl pulses, other (s1s2) Gastrointestinal: soft, non-tender Musculoskeletal: nl extremities to inspection Extremities: normal pulses Neurological: nl speech Skin: nl turgor Results Result Diagram: 09/12/18 0835 09/12/18 0647 Results 24hrs Laboratory Tests Test 09/11/18 18:22 09/12/18 06:40 09/12/18 06:47 09/12/18 06:48 Hemoglobin 8.6 L 8.3 L Hematocrit 27.2 L 26.0 L Lab Scanned BLOOD TRANSFUSIO Report N Sodium Level 141 Potassium Level 3.3 L Chloride Level 101 Carbon Dioxide 28 Level Anion Gap 12 Blood Urea 9 Nitrogen Creatinine 0.49 Est Glomerular > 60 Filtrat Rate mL/min Glucose Level 86 Calcium Level 8.6 White Blood Count 3.3 #L Red Blood Count 3.29 L Mean Corpuscular 79.0 L Volume Mean Corpuscular 25.2 L Hemoglobin Mean Corpuscular 31.9 L Hemoglobin Concen t Red Cell 18.4 H Distribution Width Platelet Count 190 # Mean Platelet 10.2 Volume Immature 0.600 H Granulocytes % Neutrophils % 67.9 Lymphocytes % 19.9 Monocytes % 9.2 Eosinophils % 1.8 Basophils % 0.6 Nucleated Red 0.0 Blood Cells % Immature 0.020 Granulocytes # Neutrophils # 2.2 Lymphocytes # 0.7 L Monocytes # 0.3 Eosinophils # 0.1 Basophils # 0.0 Nucleated Red 0.0 Blood Cells # Test 09/12/18 08:35 Hemoglobin 8.8 L Hematocrit 27.6 L Medications Medication Current Medications IV Flush (NS 3 ml) 3 ml PER PROTOCOL IV ; Start 08/13/18 at 20:00 Ondansetron HCl (Zofran Inj) 4 mg Q6H PRN IV NAUSEA AND/OR VOMITING Last a dministered on 09/12/18at 08:15; Admin Dose 4 MG; Start 08/13/18 at 20:00 Duloxetine HCl (Cymbalta) 60 mg DAILY PO Last administered on 09/12/18 08:15; Admin Dose 60 MG; Start 08/14/18 at 09:00 Alteplase, Recombinant (Cathflo (Activase)) 2 mg MAY REPEAT X1 PRN CATHETER IF CATHETER REMAINS OCCULUDED Last administered on 09/06/18 11:28; Admin Dose 2 MG; Start 08/15/18 at 06:00 Zinc Sulfate (Zinc Sulfate) 220 mg DAILY PO Last administered on 09/12/18 08:14; Admin Dose 220 MG; Start 08/17/18 at 09:00 Eye Lubricant (Artificial Tears Oph) 1 drop Q6H PRN BOTH EYES DRY EYES Last administered on 08/19/18at 00:00; Admin Dose 1 DROP; Start 08/16/18 at 23:30 Miscellaneous Information 1 ea NOTE XX ; Start 08/17/18 at 10:30 Glucose (Glutose) 15 gm Q15M PRN PO DECREASED GLUCOSE; Start 08/17/18 at 10:30 Glucose (Glutose) 22.5 gm Q15M PRN PO DECREASED GLUCOSE; Start 08/17/18 at 10:30 Dextrose (D50w Syringe) 25 ml Q15M PRN IV DECREASED GLUCOSE; Start 08/17/18 at 10:30 Dextrose (D50w Syringe) 50 ml Q15M PRN IV DECREASED GLUCOSE; Start 08/17/18 at 10:30 Glucagon (Glucagen) 1 mg Q15M PRN IM DECREASED GLUCOSE; Start 08/17/18 at 10:30 Glucose (Glutose) 15 gm Q15M PRN BUCCAL DECREASED GLUCOSE; Start 08/17/18 at 10:30 Zolpidem Tartrate (Ambien) 10 mg QHS PRN PO INSOMNIA Last administered on 21:04; Admin Dose 10 MG; Start 08/20/18 at 11:30 Phenol (Cepastat Lozenge) 1 lozenge Q1H PRN MT THROAT PAIN Last administered on 2/16/19at 21:04; Admin Dose 1 LOZENGE; Start 08/21/18 at 11:00 Acetaminophen (Tylenol Tab) 500 mg Q6H PRN PO MILD PAIN(1-3)OR ELEVATED TEMP; Start 09/01/18 at 18:30 Lidocaine (Xylocaine (Viscous)) 15 ml QID PRN PO Pain in the mouth; Start 09/02/18 at 10:30 Daptomycin 500 mg/ Sodium Chloride 100 ml @ 200 mls/hr Q24H IVPB Last administered on 09/11/18at 16:06; Admin Dose 200 MLS/HR; Start 09/03/18 at 16:00 Levofloxacin/ Dextrose 100 ml @ 100 mls/hr Q24H IVPB Last administered on 09/11/18at 16:47; Admin Dose 100 MLS/HR; Start 09/05/18 at 16:30; Stop 09/19/18 at 16:29 Trazodone HCl (Desyrel) 50 mg BID PO Last administered on 09/12/18at 08:15; Admin Dose 50 MG; Start 09/08/18 at 12:30 Lactobacillus Acidophilus/ Rhamnosus (Culturelle) 1 cap BID PO Last adm inistered on 09/12/18at 08:15; Admin Dose 1 CAP; Start 09/08/18 at 12:00 Promethazine HCl/ Codeine (Phenergan/ Codeine) 10 ml Q4H PRN PO COUGH; Start 09/09/18 at 17:30 Oxymetazoline HCl (Afrin [place]) 2 spray BID NASAL ; Start 09/09/18 at 21:00 Pantoprazole 80 mg/Sodium Chloride 100 ml @ 10 mls/hr Q10H IV Last administered on 09/12/18at 09:40; Admin Dose 10 MLS/HR; Start 09/09/18 at 22:30 Cholecalciferol (Vitamin D) 2,000 unit DAILY PO ; Start 09/13/18 at 09:00 Diphenhydramine HCl (Benadryl) 50 mg Q4 PRN IV ITCHING Last administered on 09/12/18at 12:22; Admin Dose 50 MG; Start 09/10/18 at 13:00 Levothyroxine Sodium (Synthroid) 50 mcg BEFORE BREAKFAST PO ; Start 09/13/18 at 07:00 Lorazepam (Ativan) 2 mg Q6 PRN IV Anxiety Last administered on 09/12/18 02:34; Admin Dose 2 MG; Start 09/10/18 at 13:00 Methadone HCl (Methadone Liq) 1 mg TID PO Last administered on 09/12/18 13:21; Admin Dose 1 MG; Start 09/11/18 at 21:00 Hydromorphone HCl (Dilaudid) 1 mg Q4H PRN IV SEVERE PAIN LEVEL 7-10 Last administered on 09/12/18 12:22; Admin Dose 1 MG; Start 09/11/18 at 22:00 SULEMA WRIGHT Sep 12, 2018 14:53
--- NOTE | 2018-09-12 15:12 | PN ---
Date/Time of Note Date/Time of Note DATE: 09/12/18 TIME: 15:06 Assessment/Plan VTE Prophylaxis Risk score (from Ns)>0 risk: 3 SCD applied (from [facility]): Yes SCD contraindicated: low risk/ambulating Pharmacological prophylaxis: NA/contraindicated Pharm contraindication: bleeding Lines/Catheters IV Catheter Type (from [facility]): PICC Line Central line still needed: Yes Urinary Cath still in place: No Assessment/Plan Hospital Course A/P 1. Hemoptysis vs Hematemesis? bronch/ egd & laryngoscopy (09/01): nrml. Past egd/bronch in [place] n[facility]. No path lesions/ scars. No bleeding diathesis. Refused tertiary eval in the past, but presently accepting transfer to [facility] - Vasculitis, avm? CTA, rpt egd -ve.bronch/ angiogram? For Bubble Study/ echo soon. 2. H/o HL 08? chemo/ xrt; repeat chemo ' [facility]. Saw an Onco in [place] last year. Sp BmBx-appears negative. 3. Ho PE/ Dvt, ivc filter in place 4. Diarrhea/ giardia; Rxed; however occ diarrhea noted. sp colonoscopy 08/17: patchy colitis 5. Past h/o c diff 6. H/o thyroid nodule/ cancer; ? sp doug in [place]? 5. UTI 6. H/o H pylori; EGD- 'ulcers' within the last year. Current EGD -ve. 7. Cons bacteremia 09/01. Stenotrophomonas maltophilia bacteremia. 09/03: 2D -ve for veg. Source colon? Recent colon didnt show any mass/ cancer. Immunosuppressed? 8. Anemia; beta thalassemia trait; sp bone marrow 08/20 negative; spep ordered; but done in the past too. 9. Chr pain syndrome. Pain seeking behavior. will try to manipulate staff for narcotics prior to medical care. 10. Prediabetes? 11. Ulcer of the frenulum linguae. 12. Ftt, stable discharge to snf at some point. Presently going to [facility] 13. Pulmonary nodules, stable, present back in ; observe. Repeat imaging in 3 months. QGold -ve. Appreciate ID assistance 14. Fibromyalgia S: 08/23 feels ok; still bleeding. no dyspnea/ fever 08/24: Events noted still having hemoptysis. No hematuria 08/25: Hemoptysis again this morning? Patient denies any hematemesis or epi staxis 08/26: Recurrent hemoptysis this morning. No dyspnea fever 08/27: Still having hemoptysis? No hematochezia melena hematuria or epistaxis. No dyspnea fever. 08/28: Events noted. She is worried about her hemoptysis. 08/29: Still bringing out a lot of blood. Hemoptysis versus hematemesis. Chronic stable we will consult GI. 09/06: Intermittent hemoptysis. Now having diarrhea without any GI bleed. No fevers. 09/07: Intermittent hemoptysis. Denies any fever vomiting GI bleed. No dyspnea. Does not have a regular oncologist and no outpatient support. Will need snf 09/08: 4 bouts diarrhea. no n/f. 'pain' in legs, abd. no known agg/rel factors. toradol- headache? no h/o rash/ dyspnea 09/09: Hemoptysis noted again. 77 m? [employer], vss. crying, but refusing working/ cxr. Denies any chest pain postnasal drip. No GI bleed. States of having lower abd/ suprapubic tenderness but no dysuria hematuria. Back pain upper/ around her shoulder blades. 09/10: coughing/ vomiting blood. 'pain', lwr abd/ back. now placed in front of nursing station 09/11: hemoptysis noted. Refuses therapy/ studies without dilaudid. Threatened to pull out picc. For tertiary eval. 09/12: no events O: vss PE No pallor. Throat clear, adentous Reg s1s2 no mrg Clear Benign, mild suprapubic tenderness; nd; no RRG No edema Result Diagram: 09/12/18 0835 09/12/18 0647 Results 24hrs Laboratory Tests Test 09/11/18 18:22 09/12/18 06:40 09/12/18 06:47 09/12/18 06:48 Hemoglobin 8.6 L 8.3 L Hematocrit 27.2 L 26.0 L Lab Scanned BLOOD TRANSFUSIO Report N Sodium Level 141 Potassium Level 3.3 L Chloride Level 101 Carbon Dioxide 28 Level Anion Gap 12 Blood Urea 9 Nitrogen Creatinine 0.49 Est Glomerular > 60 Filtrat Rate mL/min Glucose Level 86 Calcium Level 8.6 White Blood Count 3.3 #L Red Blood Count 3.29 L Mean Corpuscular 79.0 L Volume Mean Corpuscular 25.2 L Hemoglobin Mean Corpuscular 31.9 L Hemoglobin Concen t Red Cell 18.4 H Distribution Width Platelet Count 190 # Mean Platelet 10.2 Volume Immature 0.600 H Granulocytes % Neutrophils % 67.9 Lymphocytes % 19.9 Monocytes % 9.2 Eosinophils % 1.8 Basophils % 0.6 Nucleated Red 0.0 Blood Cells % Immature 0.020 Granulocytes # Neutrophils # 2.2 Lymphocytes # 0.7 L Monocytes # 0.3 Eosinophils # 0.1 Basophils # 0.0 Nucleated Red 0.0 Blood Cells # Test 09/12/18 08:35 Hemoglobin 8.8 L Hematocrit 27.6 L Exam/Review of Systems Exam Vitals Vital Signs Date Temp Pulse Resp B/P (MAP) Pulse Ox O2 O2 Flow FiO2 Time Delivery Rate 09/12/18 98.8 84 18 100/51 96 14:30 (67) 09/10/18 Room Air 15:30 Intake and Output 09/11/18 09/11/18 09/12/18 1515:00 23:00 07:00 IntakeIntake Total 860 ml 305 ml 380 ml OutputOutput Total 50 ml BalanceBalance 860 ml 255 ml 380 ml Results Results 24hrs Laboratory Tests Test 09/11/18 18:22 09/12/18 06:40 09/12/18 06:47 09/12/18 06:48 Hemoglobin 8.6 L 8.3 L Hematocrit 27.2 L 26.0 L Lab Scanned BLOOD TRANSFUSIO Report N Sodium Level 141 Potassium Level 3.3 L Chloride Level 101 Carbon Dioxide 28 Level Anion Gap 12 Blood Urea 9 Nitrogen Creatinine 0.49 Est Glomerular > 60 Filtrat Rate mL/min Glucose Level 86 Calcium Level 8.6 White Blood Count 3.3 #L Red Blood Count 3.29 L Mean Corpuscular 79.0 L Volume Mean Corpuscular 25.2 L Hemoglobin Mean Corpuscular 31.9 L Hemoglobin Concen t Red Cell 18.4 H Distribution Width Platelet Count 190 # Mean Platelet 10.2 Volume Immature 0.600 H Granulocytes % Neutrophils % 67.9 Lymphocytes % 19.9 Monocytes % 9.2 Eosinophils % 1.8 Basophils % 0.6 Nucleated Red 0.0 Blood Cells % Immature 0.020 Granulocytes # Neutrophils # 2.2 Lymphocytes # 0.7 L Monocytes # 0.3 Eosinophils # 0.1 Basophils # 0.0 Nucleated Red 0.0 Blood Cells # Test 09/12/18 08:35 Hemoglobin 8.8 L Hematocrit 27.6 L Medications Medication Current Medications IV Flush (NS 3 ml) 3 ml PER PROTOCOL IV ; Start 08/13/18 at 20:00 Ondansetron HCl (Zofran Inj) 4 mg Q6H PRN IV NAUSEA AND/OR VOMITING Last administered on 09/12/18at 08:15; Admin Dose 4 MG; Start 08/13/18 at 20:00 Duloxetine HCl (Cymbalta) 60 mg DAILY PO Last administered on 09/12/18at 08:15; Admin Dose 60 MG; Start 08/14/18 at 09:00 Alteplase, Recombinant (Cathflo (Activase)) 2 mg MAY REPEAT X1 PRN CATHETER IF CATHETER REMAINS OCCULUDED Last administered on 09/06/18at 11:28; Admin Dose 2 MG; Start 08/15/18 at 06:00 Zinc Sulfate (Zinc Sulfate) 220 mg DAILY PO Last administered on 09/12/18at 08:14; Admin Dose 220 MG; Start 08/17/18 at 09:00 Eye Lubricant (Artificial Tears Oph) 1 drop Q6H PRN BOTH EYES DRY EYES Last administered on 08/19/18at 00:00; Admin Dose 1 DROP; Start 08/16/18 at 23:30 Miscellaneous Information 1 ea NOTE XX ; Start 08/17/18 at 10:30 Glucose (Glutose) 15 gm Q15M PRN PO DECREASED GLUCOSE; Start 08/17/18 at 10:30 Glucose (Glutose) 22.5 gm Q15M PRN PO DECREASED GLUCOSE; Start 08/17/18 at 10:30 Dextrose (D50w Syringe) 25 ml Q15M PRN IV DECREASED GLUCOSE; Start 08/17/18 at 10:30 Dextrose (D50w Syringe) 50 ml Q15M PRN IV DECREASED GLUCOSE; Start 08/17/18 at 10:30 Glucagon (Glucagen) 1 mg Q15M PRN IM DECREASED GLUCOSE; Start 08/17/18 at 10:30 Glucose (Glutose) 15 gm Q15M PRN BUCCAL DECREASED GLUCOSE; Start 08/17/18 at 10:30 Zolpidem Tartrate (Ambien) 10 mg QHS PRN PO INSOMNIA Last administered on 09/11/18at 21:04; Admin Dose 10 MG; Start 08/20/18 at 11:30 Phenol (Cepastat Lozenge) 1 lozenge Q1H PRN MT THROAT PAIN Last administered on 09/11/18 21:04; Admin Dose 1 LOZENGE; Start 08/21/18 at 11:00 Acetaminophen (Tylenol Tab) 500 mg Q6H PRN PO MILD PAIN(1-3)OR ELEVATED TEMP; Start 09/01/18 at 18:30 Lidocaine (Xylocaine (Viscous)) 15 ml QID PRN PO Pain in the mouth; Start 09/02/18 at 10:30 Daptomycin 500 mg/ Sodium Chloride 100 ml @ 200 mls/hr Q24H IVPB Last administered on 09/11/18at 16:06; Admin Dose 200 MLS/HR; Start 09/03/18 at 16:00 Levofloxacin/ Dextrose 100 ml @ 100 mls/hr Q24H IVPB Last administered on 09/11/18at 16:47; Admin Dose 100 MLS/HR; Start 09/05/18 at 16:30; Stop 09/19/18 at 16:29 Trazodone HCl (Desyrel) 50 mg BID PO Last administered on 09/12/18at 08:15; Admin Dose 50 MG; Start 09/08/18 at 12:30 Lactobacillus Acidophilus/ Rhamnosus (Culturelle) 1 cap BID PO Last administered on 09/12/18at 08:15; Admin Dose 1 CAP; Start 09/08/18 at 12:00 Promethazine HCl/ Codeine (Phenergan/ Codeine) 10 ml Q4H PRN PO COUGH; Start 09/09/18 at 17:30 Oxymetazoline HCl (Afrin [place]) 2 spray BID NASAL ; Start 09/09/18 at 21:00 Pantoprazole 80 mg/Sodium Chloride 100 ml @ 10 mls/hr Q10H IV Last administered on 09/12/18at 09:40; Admin Dose 10 MLS/HR; Start 09/09/18 at 22:30 Cholecalciferol (Vitamin D) 2,000 unit DAILY PO ; Start 09/13/18 at 09:00 Diphenhydramine HCl (Benadryl) 50 mg Q4 PRN IV ITCHING Last administered on 09/12/18 12:22; Admin Dose 50 MG; Start 09/10/18 at 13:00 Levothyroxine Sodium (Synthroid) 50 mcg BEFORE BREAKFAST PO ; Start 09/13/18 at 07:00 Lorazepam (Ativan) 2 mg Q6 PRN IV Anxiety Last administered on 09/12/18 02:34; Admin Dose 2 MG; Start 09/10/18 at 13:00 Methadone HCl (Methadone Liq) 1 mg TID PO Last administered on 09/12/18 13:21; Admin Dose 1 MG; Start 09/11/18 at 21:00 Hydromorphone HCl (Dilaudid) 1 mg Q4H PRN IV SEVERE PAIN LEVEL 7-10 Last admi nistered on 09/12/18 12:22; Admin Dose 1 MG; Start 09/11/18 at 22:00 LEON CORONA MD Sep 12, 2018 15:12
--- NOTE | 2018-09-12 15:33 | DS ---
Date/Time of Note Date/Time of Note DATE: 09/12/18 TIME: 15:14 Discharge Summary Admission/Discharge Info Admit Date/Time Aug 13, 2018 at 17:22 Discharge Date/Time Patient Condition: Fair Consults Dr West/ Jerri- pul Dr Robert - GI Dr Beckie Brown- Hem Procedures 2D echo Conclusions: Normal left ventricular systolic function. Normal left ventricular cavity size. Normal left ventricular wall thickness. Ejection fraction is visually estimated at 55-60 %. Tissue Doppler/Mitral Doppler indices are consistent with impaired relaxation (Stage I diastolic dysfunction). Normal appearance of the mitral valve. Trace mitral regurgiutation. Normal appearance of the tricuspid valve. There is trace to mild tricuspid regurgitation. Operation/Procedure Performed Bronchoscopy Postoperative Diagnosis Normal bronchoscopy Procedure Description Patient was brought into the OR. Informed consent was obtained earlier. Patient was given general anesthesia by anesthesiologist. Prior to intubation bronchoscope was traversed through endotracheal tube for upper airway evaluation. Pharynx was completely normal vocal cords motor. Normal proximal trachea was completely normal. After intubation distal trachea was evaluated which was also completely normal reggie was sharp and well defined. The scope was introduced into the right mainstem bronchus with evaluation of the right upper lobe, bronchus intermedius, superior segment of the lower lobe, middle, and lower lobes were completely normal without any evidence of any endobronchial obstruction or any active bleeding. The scope was then introduced into the left mainstem bronchus with evaluation of the left upper lobe, lingula, superior segment of the lower lobe as well as the role of the ulcer were completely normal without any evidence of active bleeding or any signs of prior hemorrhage. The scope was then withdrawn. The procedure was well tolerated with stable O2 saturation, vital signs and airway pressures. Start time was 11:25 AM. Finish time was 11:30 AM. ISABELLA EPSTEIN Colonoscopy A-Transverse colon biopsy B-Rectum biopsy CLINICAL: Persistent bloody diarrhea; colitis (A); rule out inflammatory bowel disease (A) GROSS EXAMINATION: A-Received in formalin is a fragment of shields-pink, soft tissue that measures 0.3 x 0.2 x 0.1 cm. Totally submitted in cassette A. B-Received in formalin is a fragment of shields-pink, soft tissue that measures 0.3 x 0.2 x 0.1 cm. Totally submitted in cassette B. MICROSCOPIC DIAGNOSIS: A-Transverse colon biopsy: -- Colon mucosa showing focal mucin depletion and atrophy of colon crypts with increased regenerative activity, suggesting a healing erosion site. -- There is no evidence of acute colitis, active chronic colitis or malignancy. B-Rectum biopsy: -- Normal colon mucosa with focal acute hemorrhage in the superficial lamina propria, histologically non-specific. -- There is no evidence of colitis or malignancy. GRISEL/MARLEN/melinda/major Date of Service: 08/17/18; Date Received: 08/17/18 Dictated: 08/19/18; Transcribed: 08/19/18; Sent by Fax: 08/19/18; Reviewed: MAHSA Prakash M.D. Pathologist Electronically Signed 08/19/2018 CT abdomen pelvis IMPRESSION: Colitis, involving the ascending, transverse, descending colon. Status post choecystectomy. IVC filter in place with extracaval penetration of the filter tines. Numerous nodules in both lungs measuring up to 4 mm in the right lower lobe and lingula. In a patient at high risk for cancer, a 12-month follow-up chest CT could be obtained for further evaluation. CT guided bone marrow aspiration and left iliac bone biopsy. IMPRESSION: 1. Successful CT guided bone marrow aspiration and biopsy. MICROSCOPIC DIAGNOSIS: Peripheral blood: -- Moderate anemia, mildly microcytic. -- Leukopenia, mild, with occasional hyposegmented neutrophils. -- No circulating blasts identified. Left posterior iliac crest bone marrow aspiration, clot and biopsy: -- Adequately cellular bone marrow with a slight increase of erythroid precursors. -- Markedly increased marrow iron with a rare ringed sideroblast. -- No granulomas are identified. -- There is no evidence of malignancy. COMMENT: There is no evidence of Hodgkin lymphoma involving the bone marrow. The findings of rare ringed sideroblasts is non-specific and there is no unequivocal evidence of a myelodysplastic syndrome at the time. The findings are most suggestive of anemia of chronic disease, considering the markedly increased marrow hemosiderin. Clinical correlation is recommended. Cytogenetics and MDS FISH is pending at [facility]. Separate reports of those results will follow. GRISEL/MARLEN/melinda Date of Service: 08/19/18; Date Received: 08/19/18 Dictated: 08/24/18; Transcribed: 08/24/18; Sent by Fax: 08/24/18; Reviewed: MAHSA SPECIMEN: Bone marrow LPIC aspiration and biopsy CLINICAL: Pancytopenia MDS FISH EXTENDED FISH PANEL & CYTOGENETICS: Please see the attached report of MDS extended FISH analysis (case no. [id number]; 08/27/2018) and Cytogenetics Oncology Chromosomal Analysis (case no. [id number]; 08/26/2018) both performed at [facility]. Results are listed below: MDS EXTENDED FISH PANEL: No abnormalities detected. CYTOGENETICS: Normal female karyotype 46,XX[20]. Please see the scanned reports for further details of analysis and interpretation. MP/MARLEN/melinda Date of Service: 08/19/18; Date Received: 08/19/18 Dictated: 08/24/18; Transcribed: 08/24/18; Sent by Fax: 08/24/18; Reviewed: WS Supplemental Dictated/Sign-Out Date: 08/30/18; Transcribed: 08/30/18; Sent by Fax: 08/30/18 CT angiogram chest #2 There is no pulmonary embolism. The main pulmonary artery is normal in caliber. There is no aortic aneurysm. The heart is not enlarged. There is no pericardial effusion. A left upper extremity PICC terminates in the SVC. Numerous bilateral subpleural micronodules are not significantly changed. Minimal atelectatic changes are noted. There is no pulmonary edema or consolidation. No pleural effusion or pneumothorax is identified. No suspicious thyroid lesion is seen. There is no thoracic lymphadenopathy. The trachea and mainstem bronchi are patent. The patient is status post cholecystectomy. An IVC filter is partially imaged. There is no suspicious osseous lesion. IMPRESSION: No pulmonary embolism. Numerous bilateral subpleural micronodules, not significantly changed. No pulmonary edema or consolidation. CT Chest #2 IMPRESSION: 1. No acute pulmonary change. 2. Stable bilateral micronodules dating back to examination of at least 01/29/2017. 3. Right lower lobe fibrosis. 4. Status post cholecystectomy. 5. Left upper extremity PICC line and IVC filter in place. Please note that in the absence of intravenous contrast, the study does not evaluate the patency of the vasculature. Pending: #2 ECHO w Bubble Study Hx of Present Illness 52-year-old female admitted with diarrhea and abdominal pain. Hospital Course Hospital course: Initially evaluated for abdominal pain and diarrhea. C. difficile negative. Next is an issue was hemoptysis vs hematemesis. Patient was seen by GI and pulmonary. Bronchoscopy and EGD/ colonoscopy was negative for any acute process. Patient was seen by ENT and mild epistaxis was seen but could not account for the bleed. Laryngoscopy done. She was evaluated by the hematology Patient does not have any coagulopathy. CAT scan chest, CAT scan angiogram chest were both unremarkable. Patient was transfused at least 6 units of blood while admitted. Patient underwent repeat EGD and no active bleed seen. Patient is now scheduled for a bubble study. Plan is to transfer to tertiary care for evaluated hemoptysis of unknown etiology. The patient was reluctant yesterday and asked for a hospice consult for some reason, but however today agrees for tertiary care eval. In terms of the bacteremia. Patient will continue daptomycin until the . Levaquin till . Please see ID note for additional details. Additionally seen by behavioral health pain management. Patient has pain seeking behavior. Manipulates staff to get Dilaudid prior to doing investigational studies or agreeing to medical care plan. I attempted to contact family and give them an update but there is nobody available at bedside or over the phone. I am unable to confirm patient's story of possible thyroid cancer. Or lymphoma. There is an old document stating the patient once told the physician that she has uterine cancer. Patient was following with with [facility] clinic and her paps were unremarkable. Patient's recent oncologist? was in [place] but now that her insurance has changed, she will need a new specialist. A/P 1. Hemoptysis vs Hematemesis? bronch/ egd & laryngoscopy (09/01): [facility]. Past egd/bronch in [place] [facility]. No path lesions/ scars. No bleeding diathesis. Refused tertiary eval in the past, but presently accepting transfer to [facility] - Vasculitis, avm? CTA, rpt egd -ve.bronch/ angiogram? For Bubble Study/ echo soon. 2. H/o HL '08? chemo/ xrt; repeat chemo ' [facility]. Saw an Onco in [place] last year. Sp BmBx-appears negative. 3. Ho PE/ Dvt, ivc filter in place 4. Diarrhea/ giardia; Rxed; however occ diarrhea noted. sp colonoscopy 08/17: patchy colitis 5. Past h/o c diff 6. H/o thyroid nodule/ cancer; ? sp doug in [place]? 5. UTI 6. H/o H pylori; EGD- 'ulcers' within the last year. Current EGD -ve. 7. Cons bacteremia 09/01. Stenotrophomonas maltophilia bacteremia. 09/03: 2D -ve for veg. Source colon? Recent colon didnt show any mass/ cancer. Immunosuppressed? 8. Anemia; beta thalassemia trait; sp bone marrow 08/20 negative; spep ordered; but done in the past too. 9. Chr pain syndrome. Pain seeking behavior. will try to manipulate staff for narcotics prior to medical care. 10. Prediabetes? 11. Ulcer of the frenulum linguae. 12. Ftt, stable discharge to snf at some point. Presently going to [facility] 13. Pulmonary nodules, stable, present back in ; observe. Repeat imaging in 3 months. QGold -ve. Appreciate ID assistance 14. Fibromyalgia S: 08/23 feels ok; still bleeding. no dyspnea/ fever 08/24: Events noted still having hemoptysis. No hematuria 08/25: Hemoptysis again this morning? Patient denies any hematemesis or epistaxis 08/26: Recurrent hemoptysis this morning. No dyspnea fever 08/27: Still having hemoptysis? No hematochezia melena hematuria or epistaxis. No dyspnea fever. 08/28: Events noted. She is worried about her hemoptysis. 08/29: Still bringing out a lot of blood. Hemoptysis versus hematemesis. Chronic stable we will consult GI. 09/06: Intermittent hemoptysis. Now having diarrhea without any GI bleed. No fevers. 09/07: Intermittent hemoptysis. Denies any fever vomiting GI bleed. No dyspnea. Does not have a regular oncologist and no outpatient support. Will need snf 09/08: 4 bouts diarrhea. no n/f. 'pain' in legs, abd. no known agg/rel factors. toradol- headache? no h/o rash/ dyspnea 09/09: Hemoptysis noted again. 75 m? [employer], vss. crying, but refusing working/ cxr. Denies any chest pain postnasal drip. No GI bleed. States of having lower abd/ suprapubic tenderness but no dysuria hematuria. Back pain upper/ around her shoulder blades. 09/10: coughing/ vomiting blood. 'pain', lwr abd/ back. now placed in front of nursing station 09/11: hemoptysis noted. Refuses therapy/ studies without dilaudid. Threatened to pull out picc. For tertiary eval. 09/12: no events O: vss PE No pallor. Throat clear, adentous Reg s1s2 no mrg Clear Benign, mild suprapubic tenderness; nd; no RRG No edema Home Meds Reported Medications Zolpidem Tartrate* (Ambien*) 5 Mg Tablet, 5 MG PO QHS PRN for INSOMNIA, #30 TAB 08/13/18 Cholecalciferol* (Vitamin D3*) 1,000 Unit Tablet, 1000 UNIT PO DAILY, TAB 08/13/18 Cholecalciferol* (Vitamin D3*) 1,000 Unit Tablet, 2000 UNIT PO DAILY, TAB 08/13/18 Potassium Chloride* (Potassium Chloride*) 20 Meq Tablet.er, 20 MEQ PO DAILY, TAB.SA 08/13/18 Duloxetine Hcl* (Cymbalta*) 60 Mg Capsule.dr, 60 MG PO DAILY, CAP 08/13/18 Oxycodone Hcl* (Oxycontin*) 15 Mg Tab.sr.12h, 15 MG PO Q12, TAB 08/13/18 Hydromorphone Hcl* (Dilaudid*) 8 Mg Tablet, 8 MG PO Q6H PRN for PAIN, TAB 08/13/18 Pantoprazole* (Protonix*) 40 Mg Tablet.dr, 40 MG PO AC BREAKFAST, TAB 08/13/18 Levothyroxine Sodium* (Levothyroxine Sodium*) 25 Mcg Tablet, 25 MCG PO BEFORE BREAKFAST, #30 TAB 08/13/18 Primary Care Provider Care Physician No Primary Time spent on discharge: > 30 minutes Pending Labs Laboratory Tests Test 09/11/18 18:22 09/12/18 06:40 09/12/18 06:47 09/12/18 06:48 Hemoglobin 8.6 8.3 g/dl (12.0-16.0 g/dl (12.0-16. ) 0) Hematocrit 27.2 26.0 % (37.0-47.0) % (37.0-47.0) Lab Scanned BLOOD TRANSFUS Report ION Sodium Level 141 mmol/L (135-14 4) Potassium 3.3 Level mmol/L (3.5-5. 1) Chloride Level 101 mmol/L (97-110 ) Carbon Dioxide 28 Level mmol/L (21-31) Anion Gap 12 (5-13) Blood Urea 9 mg/dl (7-20) Nitrogen Creatinine 0.49 mg/dl (0.44-1. 00) Est Glomerular > 60 Filtrat mL/min (>60) Rate mL/min Glucose Level 86 mg/dl (70-220) Calcium Level 8.6 mg/dl (8.4-10. 2) White Blood 3.3 Count 10^3/ul (4.8-1 0.8) Red Blood 3.29 Count 10^6/ul (4.20- 5.40) Mean 79.0 Corpuscular fl (82.0-101.0 Volume ) Mean 25.2 Corpuscular pg (29.0-33.0) Hemoglobin Mean 31.9 Corpuscular g/dl (32.0-37. Hemoglobin Conc 0) ent Red Cell 18.4 Distribution % (11.5-14.5) Width Platelet Count 190 10^3/UL (140-4 15) Mean Platelet 10.2 Volume fl (7.4-10.4) Immature 0.600 Granulocytes % % (0.001-0.429 ) Neutrophils % 67.9 % (39.0-77.0) Lymphocytes % 19.9 % (15.0-51.0) Monocytes % 9.2 % (0.0-11.0) Eosinophils % 1.8 % (0.0-7.0) Basophils % 0.6 % (0.0-2.0) Nucleated Red 0.0 Blood Cells % /100WBC (0.0-0 .0) Immature 0.020 Granulocytes # 10^3/ul (0.0-0 .031) Neutrophils # 2.2 10^3/ul (1.6-7 .5) Lymphocytes # 0.7 10^3/ul (0.8-2 .9) Monocytes # 0.3 10^3/ul (0.3-0 .9) Eosinophils # 0.1 10^3/ul (0.0-0 .5) Basophils # 0.0 10^3/ul (0.0-0 .1) Nucleated Red 0.0 Blood Cells # 10^3/ul (0.0-0 .0) Test 09/12/18 08:35 Hemoglobin 8.8 g/dl (12.0-16.0 ) Hematocrit 27.6 % (37.0-47.0) LEON CORONA MD Sep 12, 2018 15:32
[2018-09-12] MEDS: LEVOFLOXACIN 500MG/D5W (PMX) 100 ML IVPB SCH (16:29)
[2018-09-12] MEDS: CEPASTAT LOZENGE MT PRN (17:29)
[2018-09-12] MEDS: DAPTOMYCIN 500 MG in SOD CHLORIDE 0.9% 100 ML IVPB SCH (17:56)
[2018-09-12 20:02] VITALS: BP 110/56; PULSE 87; RESP 18
[2018-09-12 22:07] VITALS: BP 136/68; PULSE 89
[2018-09-12] MEDS: ZOLPIDEM 5 MG TAB PO PRN (22:08)
--- NOTE | 2018-09-12 23:12 | CONS ---
Assessment/Plan Assessment/Plan Hospital Course (Demo Recall) sepsis, endovascular infection - s/p sepsis d/t bacteremia - fever and tachycardia resolved - bacteremia d/t Coag Neg Staph and Stenotrophomonas maltophilia on 09/01/2018 and 09/02/2018; repeat blood cultures 09/04/18 negative - h/o "bacteremia due to enterococci" according to progress notes at [facility], but the actual microbiology report indicated blood culture was positive for ESBL+E. coli - h/o fungemia due to rhonda glabrata, sensitive to fluconazole and to micafungin/caspofungin at [facility] - TTE done 09/04/18 showed no mention of valvular vegetations; EF 55-60% pulm - persistent hemoptysis of unknown etiology: Pt reports negative PPD last month at [facility]. - according to the microbiology report at [facility], Pt had ESBL+E. coli in her respiratory culture. Sputum cultures for AFB and fungi were negative at 8 weeks and at 4 weeks respectively at [facility] - Pt had negative bronchoscopy in 05/2018 at [facility], another at [facility] in 2017, and on 08/25/2018 at [facility] (no e/o bronchial airway bleeding according to Dr. Bello - Numerous tiny lung nodules, increased in number from the chest CT dated May 22, 2018, with largest measuring 0.3 cm in the left apex-->follow up CT on 09/10/2018 indicated: stable bilateral micronodules dating back to examination of at least 01/29/2017; RLL fibrosis. - Rhonda albicans in sputum cx on 08/28/2018 - likely colonizer - so far: aspergillus antibody not detected, HIV negative, coccidioidomycosis serology negative, TB Quant Gold negative, 1,3 beta d glucan negative, procalc 09/01/18 was 0.30 GI - Delgado-colitis per CT 08/13/18 - S/p diarrhea on 09/06/18 - s/p EGD on 09/10/2018: no GI bleeding noted, reportedly completely normal - S/p sigmoidoscopy with biopsy 08/17/2018; path showed no e/o colitis or malignancy from transverse colon and rectum biopsies - S/p bloody diarrhea d/t Giardia; Pt took metronidazole for Giardia (08/14/2018- 08/21/2018) in 07/2018. - H/o C diff toxin negative PCR positive status at [facility]. Took a course of Fidaxomyxin x 10 days. C. diff was negative on 08/14/2018 at [facility] - H/o cholecystectomy heme/oncology - S/p CT guided bone marrow aspiration and biopsy 08/20/2018 - Microcytic anemia requiring PRBC d/t acute blood loss - Electrophoresis 08/19/18 showed: Evaluation suggests beta thalassemia trait with anemia. Iron deficiency must be ruled out. - H/o BUE and RLE DVT, s/p IVC filter in January 2018 - H/o Hodgkin lymphoma diagnosed in 2006 - H/o thyroid CA diagnosed in 2005, s/p resection, chemo and XRT - IVC filter placement - +Family hx of cancer (father of stomach CA, mother of lymphoma, paternal uncle had breast CA and 12 yo daughter has h/o brain tumor s/p surgery and resulting blindness) , renal - h/o UTI due to ESBL+E. coli - S/p PO levofloxacin (08/24/2018-08/28/2018) for probable UTI other conditions - s/p a painful ulcer at frenulum, resolving. According to Pt, topical steroid w ould worsen the pain. HIV negative, RPR non reactive, herpes 1 and 2 by PCR not detected; s/p trial of PO valacyclovir (08/27/2018-09/01/2018) - s/p bilateral conjunctivitis - improved s/p Cipro eye drops (08/18/18-08/23/18) - Hypothyroidism - HLD - S/p hypokalemia - OA - depression/anxiety - H/o x2 - Allergy to PCN and vancomycin (reaction unknown) recommendations: - pending: sputum for ova and parasite (micro, pathology) to r/o parasitic inf ections i.e. strongyloides, paragonimiasis - continue daptomycin (clarify allergy to vanco; 09/02/2018-) and levofloxacin (08/25/18-08/27/2018; restart 09/05/2018-) to complete 14 days from first negative b lood culture; s/p Cefepime (09/03/18 - 09/05/18). 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 Consultation Date/Type/Reason Admit Date/Time Aug 13, 2018 at 17:22 Initial Consult Date 08/19/18 Type of Consult ID Requesting Provider: SHAQUILLE HARRIS Date/Time of Note DATE: 09/12/18 TIME: 23:08 24 HR Interval Summary Constitutional: improved, other (feels less fatigued, has more appetite) Detailed Summary Eyes: no complaints ENT: no complaints Respiratory: cough, other (+hemoptysis, but less than yesterday) Cardiovascular: no complaints Gastrointestinal: no complaints Genitourinary: no complaints Musculoskeletal: no complaints Skin: no complaints Neurologic: no complaints Exam/Review of Systems Exam Vitals Vital Signs Date Temp Pulse Resp B/P (MAP) Pulse Ox O2 O2 Flow FiO2 Time Delivery Rate 09/12/18 89 136/68 22:07 (90) 09/12/18 99.0 18 93 20:02 09/10/18 Room Air 15:30 Intake and Output 09/11/18 09/11/18 09/12/18 1515:00 23:00 07:00 IntakeIntake Total 860 ml 505 ml 380 ml OutputOutput Total 50 ml BalanceBalance 860 ml 455 ml 380 ml Constitutional: alert, frail Psych: no complaints, nl mood/affect Head: normocephalic, atraumatic Eyes: nl conjunctiva, nl lids, nl sclera ENMT: nl external ears & nose, nl nasal mucosa & septum, mucosa pink and moist Neck: other (not swollen) Respiratory: crackles/rales Cardiovascular: regular rate and rhythm, nl pulses Gastrointestinal: soft, non-tender Musculoskeletal: nl extremities to inspection Extremities: No edema 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, nl mental status, nl speech, other (gait is slow although symmetrical) Skin: nl turgor; No rash or lesions Results Result Diagram: 09/12/18212209/12/18 0647 Results 24hrs Laboratory Tests Test 09/12/18 06:40 09/12/18 06:47 09/12/18 06:48 09/12/18 08:35 Lab Scanned BLOOD TRANSFUSIO Report N Sodium Level 141 Potassium Level 3.3 L Chloride Level 101 Carbon Dioxide 28 Level Anion Gap 12 Blood Urea 9 Nitrogen Creatinine 0.49 Est Glomerular > 60 Filtrat Rate mL/min Glucose Level 86 Calcium Level 8.6 White Blood Count 3.3 #L Red Blood Count 3.29 L Hemoglobin 8.3 L 8.8 L Hematocrit 26.0 L 27.6 L Mean Corpuscular 79.0 L Volume Mean Corpuscular 25.2 L Hemoglobin Mean Corpuscular 31.9 L Hemoglobin Concen t Red Cell 18.4 H Distribution Width Platelet Count 190 # Mean Platelet 10.2 Volume Immature 0.600 H Granulocytes % Neutrophils % 67.9 Lymphocytes % 19.9 Monocytes % 9.2 Eosinophils % 1.8 Basophils % 0.6 Nucleated Red 0.0 Blood Cells % Immature 0.020 Granulocytes # Neutrophils # 2.2 Lymphocytes # 0.7 L Monocytes # 0.3 Eosinophils # 0.1 Basophils # 0.0 Nucleated Red 0.0 Blood Cells # Test 09/12/18 21:23 Hemoglobin 8.2 L Hematocrit 25.9 L Medications Medication Current Medications IV Flush (NS 3 ml) 3 ml PER PROTOCOL IV ; Start 08/13/18 at 20:00 Ondansetron HCl (Zofran Inj) 4 mg Q6H PRN IV NAUSEA AND/OR VOMITING Last administered on 09/12/18at 08:15; Admin Dose 4 MG; Start 08/13/18 at 20:00 Duloxetine HCl (Cymbalta) 60 mg DAILY PO Last administered on 09/12/18at 08:15; Admin Dose 60 MG; Start 08/14/18 at 09:00 Alteplase, Recombinant (Cathflo (Activase)) 2 mg MAY REPEAT X1 PRN CATHETER IF CATHETER REMAINS OCCULUDED Last administered on 09/06/18at 11:28; Admin Dose 2 MG; Start 08/15/18 at 06:00 Zinc Sulfate (Zinc Sulfate) 220 mg DAILY PO Last administered on 09/12/18at 08:14; Admin Dose 220 MG; Start 08/17/18 at 09:00 Eye Lubricant (Artificial Tears Oph) 1 drop Q6H PRN BOTH EYES DRY EYES Last administered on 08/19/18at 00:00; Admin Dose 1 DROP; Start 08/16/18 at 23:30 Miscellaneous Information 1 ea NOTE XX ; Start 08/17/18 at 10:30 Glucose (Glutose) 15 gm Q15M PRN PO DECREASED GLUCOSE; Start 08/17/18 at 10:30 Glucose (Glutose) 22.5 gm Q15M PRN PO DECREASED GLUCOSE; Start 08/17/18 at 10:30 Dextrose (D50w Syringe) 25 ml Q15M PRN IV DECREASED GLUCOSE; Start 08/17/18 at 10:30 Dextrose (D50w Syringe) 50 ml Q15M PRN IV DECREASED GLUCOSE; Start 08/17/18 at 10:30 Glucagon (Glucagen) 1 mg Q15M PRN IM DECREASED GLUCOSE; Start 08/17/18 at 10:30 Glucose (Glutose) 15 gm Q15M PRN BUCCAL DECREASED GLUCOSE; Start 08/17/18 at 10:30 Zolpidem Tartrate (Ambien) 10 mg QHS PRN PO INSOMNIA Last administered on 09/12/18at 22:08; Admin Dose 10 MG; Start 08/20/18 at 11:30 Phenol (Cepastat Lozenge) 1 lozenge Q1H PRN MT THROAT PAIN Last administered on 09/12/18at 17:29; Admin Dose 1 LOZENGE; Start 08/21/18 at 11:00 Acetaminophen (Tylenol Tab) 500 mg Q6H PRN PO MILD PAIN(1-3)OR ELEVATED TEMP; Start 09/01/18 at 18:30 Lidocaine (Xylocaine (Viscous)) 15 ml QID PRN PO Pain in the mouth; Start 09/02/18 at 10:30 Daptomycin 500 mg/ Sodium Chloride 100 ml @ 200 mls/hr Q24H IVPB Last administered on 09/12/18at 17:56; Admin Dose 200 MLS/HR; Start 09/03/18 at 16:00 Levofloxacin/ Dextrose 100 ml @ 100 mls/hr Q24H IVPB Last administered on 09/12/18at 16:29; Admin Dose 100 MLS/HR; Start 09/05/18 at 16:30; Stop 09/19/18 at 16:29 Trazodone HCl (Desyrel) 50 mg BID PO Last administered on 09/12/18at 22:08; A dmin Dose 50 MG; Start 09/08/18 at 12:30 Lactobacillus Acidophilus/ Rhamnosus (Culturelle) 1 cap BID PO Last administered on 09/12/18at 22:08; Admin Dose 1 CAP; Start 09/08/18 at 12:00 Promethazine HCl/ Codeine (Phenergan/ Codeine) 10 ml Q4H PRN PO COUGH; Start 09/09/18 at 17:30 Oxymetazoline HCl (Afrin [place]) 2 spray BID NASAL ; Start 09/09/18 at 21:00 Cholecalciferol (Vitamin D) 2,000 unit DAILY PO ; Start 09/13/18 at 09:00 Diphenhydramine HCl (Benadryl) 50 mg Q4 PRN IV ITCHING Last administered on 09/12/18 20:29; Admin Dose 50 MG; Start 09/10/18 at 13:00 Levothyroxine Sodium (Synthroid) 50 mcg BEFORE BREAKFAST PO ; Start 09/13/18 at 07:00 Lorazepam (Ativan) 2 mg Q6 PRN IV Anxiety Last administered on 09/12/18at 17:26; Admin Dose 2 MG; Start 09/10/18 at 13:00 Methadone HCl (Methadone Liq) 1 mg TID PO Last administered on 09/12/18at 22:09; Admin Dose 1 MG; Start 09/11/18 at 21:00 Hydromorphone HCl (Dilaudid) 1 mg Q4H PRN IV SEVERE PAIN LEVEL 7-10 Last administered on 09/12/18 20:29; Admin Dose 1 MG; Start 09/11/18 at 22:00 Pantoprazole (Protonix Tab) 40 mg DAILY@06 PO ; Start 09/13/18 at 06:00 REGINA CARRASCO M.D. Sep 12, 2018 23:12
[2018-09-13] MEDS: DIPHENHYDRAMINE 50 MG INJ IV PRN ×6 (00:30→20:44)
[2018-09-13] MEDS: ONDANSETRON 4 MG INJ IV PRN (00:30)
[2018-09-13] MEDS: HYDROmorphONE 1 MG/ML SYG IV PRN ×6 (00:31→20:44)
[2018-09-13 02:00] VITALS: BP 109/67; PULSE 78; RESP 18
[2018-09-13 06:12] VITALS: BP 113/60; PULSE 77
[2018-09-13] MEDS: LEVOTHYROXINE 50 MCG TAB PO SCH (06:18)
[2018-09-13] MEDS: LORAZEPAM 2 MG INJ IV PRN ×2 (06:18→18:15)
[2018-09-13] MEDS: PANTOPRAZOLE (EC) 40 MG TAB PO SCH (06:28)
[2018-09-13 08:00] VITALS: BP 98/58; PULSE 67; RESP 18
[2018-09-13] MEDS: METHADONE (1 MG/ML 5 ML PO UD SYG) PO SCH ×3 (09:06→20:45)
[2018-09-13] MEDS: CHOLECALCIFEROL 2,000 UNIT CAP PO SCH (09:06)
[2018-09-13] MEDS: ZINC SULFATE 220 MG CAP PO SCH (09:06)
[2018-09-13] MEDS: DULOXETINE 30 MG CAP DR PO SCH (09:06)
[2018-09-13] MEDS: traZODone 50 MG TAB PO SCH ×2 (09:06→20:44)
[2018-09-13] MEDS: LACTOBACILLUS RHAMNOSUS CAP PO SCH ×2 (09:07→21:00)
[2018-09-13] MEDS: OXYMETAZOLINE 0.05% 15 ML NAS SPRAY NASAL SCH ×2 (09:07→21:00)
[2018-09-13] MEDS: CEPASTAT LOZENGE MT PRN (09:08)
--- NOTE | 2018-09-13 10:26 | CONS ---
[facility] HCIS Consult Follow-up Patient Name: Khadijah Masters Unit Number: [id number] Date of : 1965 Patient Status: Admitted Inpatient Attending Doctor: Mainor Lopez MD Edit: REGINA HUTCHINSON M.D. on 09/18/18 @ 22:15 Evangelina: I discussed the management with HOUSEKEEPING ROOM ATTENDANT Thiago and agree Assessment/Plan Assessment/Plan Hospital Course (Demo Recall) sepsis, endovascular infection - s/p sepsis d/t bacteremia - fever and tachycardia resolved - bacteremia d/t Coag Neg Staph and Stenotrophomonas maltophilia on 09/01/2018 and 09/02/2018; repeat blood cultures 09/04/18 negative - h/o "bacteremia due to enterococci" according to progress notes at [facility], but the actual microbiology report indicated blood culture was positive for ESBL+E. coli - h/o fungemia due to kaley glabrata, sensitive to fluconazole and to micafungin/caspofungin at [facility] - TTE done 09/04/18 showed no mention of valvular vegetations; EF 55-60% pulm - persistent hemoptysis of unknown etiology: Pt reports negative PPD last month at [facility]. - according to the microbiology report at [facility], Pt had ESBL+E. coli in her respiratory culture. Sputum cultures for AFB and fungi were negative at 8 weeks and at 4 weeks respectively at [facility] - Pt had negative bronchoscopy in 05/2018 at [facility], another at [facility] in 2017, and on 08/25/2018 at [facility] (no e/o bronchial airway bleeding according to Dr. Bello - Numerous tiny lung nodules, increased in number from the chest CT dated May 22, 2018, with largest measuring 0.3 cm in the left apex-->follow up CT on 09/10/2018 indicated: stable bilateral micronodules dating back to examination of at least 01/29/2017; RLL fibrosis. - Kaley albicans in sputum cx on 08/28/2018 - likely colonizer - so far: aspergillus antibody not detected, HIV negative, coccidioidomycosis serology negative, TB Quant Gold negative, 1,3 beta d glucan negative, procalc was 0.30 GI - Delgado-colitis per CT 08/13/18 - S/p diarrhea on 09/06/18 - s/p EGD on 09/10/2018: no GI bleeding noted, reportedly completely normal - S/p sigmoidoscopy with biopsy 08/17/2018; path showed no e/o colitis or malignancy from transverse colon and rectum biopsies - S/p bloody diarrhea d/t Giardia; Pt took metronidazole for Giardia (08/14/2018- 08/21/2018) in 07/2018. - H/o C diff toxin negative PCR positive status at [facility]. Took a course of Fidaxomyxin x 10 days. C. diff was negative on 08/14/2018 at [facility] - H/o cholecystectomy heme/oncology - S/p CT guided bone marrow aspiration and biopsy 08/20/2018 - Microcytic anemia requiring PRBC d/t acute blood loss - Electrophoresis 08/19/18 showed: Evaluation suggests beta thalassemia trait with anemia. Iron deficiency must be ruled out. - H/o BUE and RLE DVT, s/p IVC filter in January 2018 - H/o Hodgkin lymphoma diagnosed in 2006 - H/o thyroid CA diagnosed in 2005, s/p resection, chemo and XRT - IVC filter placement - Patient reports that approximately 2 years ago (2017?) she had an abnormal mammogram of Left breast and that she was scheduled for a biopsy approximately 4 months ago but d/t insurance change did not receive the biopsy, on 09/13/18 patient reported brown drainage from left nipple x2 nights - +Family hx of cancer (father of stomach CA, mother of lymphoma, paternal uncle had breast CA and 12 yo daughter has h/o brain tumor s/p surgery and resulting blindness) , renal - h/o UTI due to ESBL+E. coli - S/p PO levofloxacin (08/24/2018-08/28/2018) for probable UTI other conditions - s/p a painful ulcer at frenulum, resolving. According to Pt, topical steroid would worsen the pain. HIV negative, RPR non reactive, herpes 1 and 2 by PCR not detected; s/p trial of PO valacyclovir (08/27/2018-09/01/2018) - s/p bilateral conjunctivitis - improved s/p Cipro eye drops (08/18/18-08/23/18) - Hypothyroidism - HLD - S/p hypokalemia - OA - depression/anxiety - H/o x2 - Allergy to PCN and vancomycin (reaction unknown) Recommendations: - Pending: sputum for ova and parasite (micro, pathology) to r/o parasitic infections i.e. strongyloides, paragonimiasis - Continue daptomycin (clarify allergy to vanco; 09/02/2018-) and levofloxacin (08/25/18-08/27/2018; restart 09/05/2018-) to complete 14 days from first negative blood culture; s/p Cefepime (09/03/18 - 09/05/18). Suggested end date of dapto through 09/17/2018 and Levaquin through 09/18/2018 - Weekly CK level (<20 on 09/03/2018, 39 on 09/10/2018) while on daptomycin - Consider breast exam and mammogram (pt reports brown drainage from nipple x2 nights, states had an abnormal mammogram 2 years ago and planned biopsy which was never done) Management was d/w FERNANDO Fu, patient, and with Dr. Hutchinson Thank you Consultation Date/Type/Reason Admit Date/Time Aug 13, 2018 at 17:22 Initial Consult Date 08/19/18 Type of Consult ID Requesting Provider: SHAQUILLE HARRIS Date/Time of Note DATE: 09/13/18 TIME: 10:15 24 HR Interval Summary Free Text/Dictation Per d/w patient, she states she is still having cough, but she states that her cough is improved during the daytime. Still having hemoptysis. Chills at night. SOB during coughing. Patient also reports to me that 2 years ago she had an abnormal mammogram and that she had a "lump" in her left breast for which approximately 4 months ago there was a plan for biopsy but that her insurance changed. Patient reports that for the past two nights she has had "brown" drainage from the left nipple. Denies pain or tenderness in either breast. Denies fevers, sweats, chest pain, vomiting, diarrhea, dysuria. C/o nausea which she states improves with zofran. States her rash is much improved, still itching, but improving with benadryl. Per d/w RN Nickie, the patient has d/c planning to [facility], awaiting a bed. No other acute issues have been reported. Constitutional: other (Reports brown drainage from left nipple x2 nights. Repo rts hx of abl mammogram with planned biopsy 4 months ago not done d/t insurance changes) Exam/Review of Systems Exam Vitals Vital Signs Date Temp Pulse Resp B/P (MAP) Pulse Ox O2 O2 Flow FiO2 Time Delivery Rate 09/13/18 98.5 67 18 98/58 (71) 99 08:00 09/10/18 Room Air 15:30 Intake and Output 09/12/18 09/12/18 09/13/18 1515:00 23:00 07:00 IntakeIntake Total 500 ml 680 ml OutputOutput Total 120 ml BalanceBalance 500 ml 680 ml -120 ml Allergies Coded Allergies Iodinated Contrast- Oral and IV Dye (Verified Allergy, Severe, 08/20/18) Iodine and Iodide Containing Produc (Verified Allergy, Unknown, 08/13/18) Penicillins (Verified Allergy, Unknown, 08/13/18) ketorolac (Verified Allergy, Unknown, 08/13/18) morphine (Verified Allergy, Unknown, 08/13/18) vancomycin (Verified Allergy, Unknown, 08/13/18) Constitutional: alert, well developed, frail Psych: no complaints, nl mood/affect Head: normocephalic, atraumatic Eyes: nl conjunctiva, nl lids, nl sclera ENMT: nl external ears & nose, nl nasal mucosa & septum, mucosa pink and moist (no thrush) Neck: supple, non-tender, other (not swollen) Respiratory: clear to auscultation, normal air movement Cardiovascular: regular rate and rhythm, nl pulses Gastrointestinal: soft, non-tender, bowel sounds (normoactive ) Genitourinary - Female: other (no f/c ) Musculoskeletal: nl extremities to inspection Extremities: normal pulses; No edema Neurological: COMMUNITY SERVICE MANAGER II-XII intact, nl mental status, nl speech Skin: nl turgor, rash or lesions (Anterior chest improving erythematous rash ), other (Franck breasts symmetrical, nontender, soft. No drainage noted from either breast or nipple with and without palpation. Breast exam limited d/t patient position in chair, was unable to palpate nodule in left breast. ) Lymph: nontender Results Result Diagram: 09/13/18 0609 09/13/18 0609 Results 24hrs Laboratory Tests Test 09/12/18 21:23 09/13/18 06:09 09/13/18 09:18 Hemoglobin 8.2 L 8.3 L Hematocrit 25.9 L 26.0 L White Blood Count 2.9 L Red Blood Count 3.27 L Mean Corpuscular Volume 79.5 L Mean Corpuscular Hemoglobin 25.4 L Mean Corpuscular 31.9 L Hemoglobin Concent Red Cell Distribution Width 18.8 H Platelet Count 193 Mean Platelet Volume 10.2 Immature Granulocytes % 0.700 H Neutrophils % 55.2 Lymphocytes % 29.3 Monocytes % 12.4 H Eosinophils % 1.7 Basophils % 0.7 Nucleated Red Blood Cells % 0.0 Immature Granulocytes # 0.020 Neutrophils # 1.6 Lymphocytes # 0.9 Monocytes # 0.4 Eosinophils # 0.1 Basophils # 0.0 Nucleated Red Blood Cells # 0.0 Sodium Level 140 Potassium Level 3.4 L Chloride Level 105 Carbon Dioxide Level 32 H Anion Gap 3 #L Blood Urea Nitrogen 13 Creatinine 0.54 Est Glomerular Filtrat > 60 Rate mL/min Glucose Level 119 Calcium Level 8.5 Total Bilirubin 0.2 Direct Bilirubin 0.00 Indirect Bilirubin 0.2 Aspartate Amino Transf (AST/SGOT) 22 Alanine 23 Aminotransferase (ALT/SGPT) Alkaline Phosphatase 74 Total Protein 5.8 L Albumin 3.3 Globulin 2.50 Albumin/Globulin Ratio 1.32 Lab Scanned Report REFERENCE LAB Medications Medication Current Medications IV Flush (NS 3 ml) 3 ml PER PROTOCOL IV ; Start 08/13/18 at 20:00 Ondansetron HCl (Zofran Inj) 4 mg Q6H PRN IV NAUSEA AND/OR VOMITING Last administered on 09/13/18at 00:30; Admin Dose 4 MG; Start 08/13/18 at 20:00 Duloxetine HCl (Cymbalta) 60 mg DAILY PO Last administered on 09/13/18at 09:06; Admin Dose 60 MG; Start 08/14/18 at 09:00 Alteplase, Recombinant (Cathflo (Activase)) 2 mg MAY REPEAT X1 PRN CATHETER IF CATHETER REMAINS OCCULUDED Last administered on 09/06/18at 11:28; Admin Dose 2 MG; Start 08/15/18 at 06:00 Zinc Sulfate (Zinc Sulfate) 220 mg DAILY PO Last administered on 09/13/18at 09:06; Admin Dose 220 MG; Start 08/17/18 at 09:00 Eye Lubricant (Artificial Tears Oph) 1 drop Q6H PRN BOTH EYES DRY EYES Last administered on 08/19/18at 00:00; Admin Dose 1 DROP; Start 08/16/18 at 23:30 Miscellaneous Information 1 ea NOTE XX ; Start 08/17/18 at 10:30 Glucose (Glutose) 15 gm Q15M PRN PO DECREASED GLUCOSE; Start 08/17/18 at 10:30 Glucose (Glutose) 22.5 gm Q15M PRN PO DECREASED GLUCOSE; Start 08/17/18 at 10:30 Dextrose (D50w Syringe) 25 ml Q15M PRN IV DECREASED GLUCOSE; Start 08/17/18 at 10:30 Dextrose (D50w Syringe) 50 ml Q15M PRN IV DECREASED GLUCOSE; Start 08/17/18 at 10:30 Glucagon (Glucagen) 1 mg Q15M PRN IM DECREASED GLUCOSE; Start 08/17/18 at 10:30 Glucose (Glutose) 15 gm Q15M PRN BUCCAL DECREASED GLUCOSE; Start 08/17/18 at 10:30 Zolpidem Tartrate (Ambien) 10 mg QHS PRN PO INSOMNIA Last administered on 09/12/18at 22:08; Admin Dose 10 MG; Start 08/20/18 at 11:30 Phenol (Cepastat Lozenge) 1 lozenge Q1H PRN MT THROAT PAIN Last administered on 09/13/18at 09:08; Admin Dose 1 LOZENGE; Start 08/21/18 at 11:00 Acetaminophen (Tylenol Tab) 500 mg Q6H PRN PO MILD PAIN(1-3)OR ELEVATED TEMP; Start 09/01/18 at 18:30 Lidocaine (Xylocaine (Viscous)) 15 ml QID PRN PO Pain in the mouth; Start 09/02/18 at 10:30 Daptomycin 500 mg/ Sodium Chloride 100 ml @ 200 mls/hr Q24H IVPB Last administered on 09/12/18 17:56; Admin Dose 200 MLS/HR; Start 09/03/18 at 16:00 Levofloxacin/ Dextrose 100 ml @ 100 mls/hr Q24H IVPB Last administered on 09/12/18 16:29; Admin Dose 100 MLS/HR; Start 09/05/18 at 16:30; Stop 09/19/18 at 16:29 Trazodone HCl (Desyrel) 50 mg BID PO Last administered on 09/13/18 09:06; Ad min Dose 50 MG; Start 09/08/18 at 12:30 Lactobacillus Acidophilus/ Rhamnosus (Culturelle) 1 cap BID PO Last administered on 09/13/18 09:07; Admin Dose 1 CAP; Start 09/08/18 at 12:00 Promethazine HCl/ Codeine (Phenergan/ Codeine) 10 ml Q4H PRN PO COUGH; Start 09/09/18 at 17:30 Oxymetazoline HCl (Afrin [place]) 2 spray BID NASAL Last administered on 09/13/18 09:07; Admin Dose 2 SPRAY; Start 09/09/18 at 21:00 Cholecalciferol (Vitamin D) 2,000 unit DAILY PO Last administered on 09/13/18 09:06; Admin Dose 2,000 UNIT; Start 09/13/18 at 09:00 Diphenhydramine HCl (Benadryl) 50 mg Q4 PRN IV ITCHING Last administered on 09/13/18 08:31; Admin Dose 50 MG; Start 09/10/18 at 13:00 Levothyroxine Sodium (Synthroid) 50 mcg BEFORE BREAKFAST PO Last administered on 09/13/18 06:18; Admin Dose 50 MCG; Start 09/13/18 at 07:00 Lorazepam (Ativan) 2 mg Q6 PRN IV Anxiety Last administered on 09/13/18 06:18; Admin Dose 2 MG; Start 09/10/18 at 13:00 Methadone HCl (Methadone Liq) 1 mg TID PO Last administered on 09/13/18 09:06; Admin Dose 1 MG; Start 09/11/18 at 21:00 Hydromorphone HCl (Dilaudid) 1 mg Q4H PRN IV SEVERE PAIN LEVEL 7-10 Last administered on 09/13/18at 08:32; Admin Dose 1 MG; Start 09/11/18 at 22:00 Pantoprazole (Protonix Tab) 40 mg DAILY@06 PO Last administered on 09/13/18at 06:28; Admin Dose 40 MG; Start 09/13/18 at 06:00 LAST GARNER NP Sep 13, 2018 10:25
[2018-09-13] MEDS ORDERED: POTASSIUM CHLORIDE (SR) 10 MEQ TAB PO ONE (11:30)
--- NOTE | 2018-09-13 15:05 | CONS ---
Consult Date/Type/Reason Admit Date/Time Aug 13, 2018 at 17:22 Initial Consult Date 08/19/18 Type of Consult Pulmonary Requesting Provider: SHAQUILLE HARRIS Date/Time of Note DATE: 09/13/18 TIME: 15:04 Subjective Still having hemoptysis. Hemodynamically stable at present. Objective Vital Signs Date Temp Pulse Resp B/P (MAP) Pulse Ox O2 O2 Flow FiO2 Time Delivery Rate 09/13/18 98.5 67 18 98/58 (71) 99 08:00 09/10/18 Room Air 15:30 Intake and Output 09/12/18 09/12/18 09/13/18 1515:00 23:00 07:00 IntakeIntake Total 500 ml 680 ml OutputOutput Total 120 ml BalanceBalance 500 ml 680 ml -120 ml Exam GENERAL: Well-nourished well-developed lady comfortable at rest no acute distress VITAL SIGNS: per chart NECK: Supple. No JVD or lymphadenopathy. CARDIAC EXAM: S1, S2. No added sounds or murmurs. CHEST: clear bilaterally, No added sounds, rales or wheezes ABDOMEN: Soft, nontender. No guarding or rebound. EXTREMITIES: No cyanosis, clubbing or edema. NEUROLOGIC: Generalized weakness. No focal deficits. Vent Setting Fraction of Inspired Oxygen pe: 21 Results/Medications Result Diagram: 09/13/18 0904 09/13/18 0609 Results 24 hrs Laboratory Tests Test 09/12/18 21:23 09/13/18 06:08 09/13/18 06:09 09/13/18 09:04 Hemoglobin 8.2 L 8.3 L 8.8 L Hematocrit 25.9 L 26.0 L 27.9 L Magnesium Level 1.9 White Blood Count 2.9 L Red Blood Count 3.27 L Mean Corpuscular 79.5 L Volume Mean Corpuscular 25.4 L Hemoglobin Mean Corpuscular 31.9 L Hemoglobin Concent Red Cell 18.8 H Distribution Width Platelet Count 193 Mean Platelet 10.2 Volume Immature 0.700 H Granulocytes % Neutrophils % 55.2 Lymphocytes % 29.3 Monocytes % 12.4 H Eosinophils % 1.7 Basophils % 0.7 Nucleated Red 0.0 Blood Cells % Immature 0.020 Granulocytes # Neutrophils # 1.6 Lymphocytes # 0.9 Monocytes # 0.4 Eosinophils # 0.1 Basophils # 0.0 Nucleated Red 0.0 Blood Cells # Sodium Level 140 Potassium Level 3.4 L Chloride Level 105 Carbon Dioxide 32 H Level Anion Gap 3 #L Blood Urea 13 Nitrogen Creatinine 0.54 Est Glomerular > 60 Filtrat Rate mL/min Glucose Level 119 Calcium Level 8.5 Total Bilirubin 0.2 Direct Bilirubin 0.00 Indirect Bilirubin 0.2 Aspartate Amino 22 Transf (AST/SGOT) Alanine 23 Aminotransferase ( ALT/SGPT) Alkaline 74 Phosphatase Total Protein 5.8 L Albumin 3.3 Globulin 2.50 Albumin/Globulin 1.32 Ratio Test 09/13/18 09:18 Lab Scanned Report REFERENCE LAB Medications Current Medications IV Flush (NS 3 ml) 3 ml PER PROTOCOL IV ; Start 08/13/18 at 20:00 Ondansetron HCl (Zofran Inj) 4 mg Q6H PRN IV NAUSEA AND/OR VOMITING Last administered on 09/13/18at 00:30; Admin Dose 4 MG; Start 08/13/18 at 20:00 Duloxetine HCl (Cymbalta) 60 mg DAILY PO Last administered on 09/13/18at 09:06; Admin Dose 60 MG; Start 08/14/18 at 09:00 Alteplase, Recombinant (Cathflo (Activase)) 2 mg MAY REPEAT X1 PRN CATHETER IF CATHETER REMAINS OCCULUDED Last administered on 09/06/18at 11:28; Admin Dose 2 MG; Start 08/15/18 at 06:00 Zinc Sulfate (Zinc Sulfate) 220 mg DAILY PO Last administered on 09/13/18at 09:06; Admin Dose 220 MG; Start 08/17/18 at 09:00 Eye Lubricant (Artificial Tears Oph) 1 drop Q6H PRN BOTH EYES DRY EYES Last administered on 08/19/18at 00:00; Admin Dose 1 DROP; Start 08/16/18 at 23:30 Miscellaneous Information 1 ea NOTE XX ; Start 08/17/18 at 10:30 Glucose (Glutose) 15 gm Q15M PRN PO DECREASED GLUCOSE; Start 08/17/18 at 10:30 Glucose (Glutose) 22.5 gm Q15M PRN PO DECREASED GLUCOSE; Start 08/17/18 at 10:30 Dextrose (D50w Syringe) 25 ml Q15M PRN IV DECREASED GLUCOSE; Start 08/17/18 at 10:30 Dextrose (D50w Syringe) 50 ml Q15M PRN IV DECREASED GLUCOSE; Start 08/17/18 at 10:30 Glucagon (Glucagen) 1 mg Q15M PRN IM DECREASED GLUCOSE; Start 08/17/18 at 10:30 Glucose (Glutose) 15 gm Q15M PRN BUCCAL DECREASED GLUCOSE; Start 08/17/18 at 10:30 Zolpidem Tartrate (Ambien) 10 mg QHS PRN PO INSOMNIA Last administered on 09/12/18at 22:08; Admin Dose 10 MG; Start 08/20/18 at 11:30 Phenol (Cepastat Lozenge) 1 lozenge Q1H PRN MT THROAT PAIN Last administered on 09/13/18 09:08; Admin Dose 1 LOZENGE; Start 08/21/18 at 11:00 Acetaminophen (Tylenol Tab) 500 mg Q6H PRN PO MILD PAIN(1-3)OR ELEVATED TEMP; Start 09/01/18 at 18:30 Lidocaine (Xylocaine (Viscous)) 15 ml QID PRN PO Pain in the mouth; Start 09/02/18 at 10:30 Daptomycin 500 mg/ Sodium Chloride 100 ml @ 200 mls/hr Q24H IVPB Last administered on 09/12/18at 17:56; Admin Dose 200 MLS/HR; Start 09/03/18 at 16:00 Levofloxacin/ Dextrose 100 ml @ 100 mls/hr Q24H IVPB Last administered on 09/12/18 16:29; Admin Dose 100 MLS/HR; Start 09/05/18 at 16:30; Stop 09/19/18 at 16:29 Trazodone HCl (Desyrel) 50 mg BID PO Last administered on 09/13/18at 09:06; Admin Dose 50 MG; Start 09/08/18 at 12:30 Lactobacillus Acidophilus/ Rhamnosus (Culturelle) 1 cap BID PO Last administered on 09/13/18 09:07; Admin Dose 1 CAP; Start 09/08/18 at 12:00 Promethazine HCl/ Codeine (Phenergan/ Codeine) 10 ml Q4H PRN PO COUGH; Start 09/09/18 at 17:30 Oxymetazoline HCl (Afrin [place]) 2 spray BID NASAL Last administered on 09/13/18 09:07; Admin Dose 2 SPRAY; Start 09/09/18 at 21:00 Cholecalciferol (Vitamin D) 2,000 unit DAILY PO Last administered on 09/13/18 09:06; Admin Dose 2,000 UNIT; Start 09/13/18 at 09:00 Diphenhydramine HCl (Benadryl) 50 mg Q4 PRN IV ITCHING Last administered on 09/13/18 12:31; Admin Dose 50 MG; Start 09/10/18 at 13:00 Levothyroxine Sodium (Synthroid) 50 mcg BEFORE BREAKFAST PO Last administered on 09/13/18 06:18; Admin Dose 50 MCG; Start 09/13/18 at 07:00 Lorazepam (Ativan) 2 mg Q6 PRN IV Anxiety Last administered on 09/13/18 06:18; Admin Dose 2 MG; Start 09/10/18 at 13:00 Methadone HCl (Methadone Liq) 1 mg TID PO Last administered on 09/13/18 13:33; Admin Dose 1 MG; Start 09/11/18 at 21:00 Hydromorphone HCl (Dilaudid) 1 mg Q4H PRN IV SEVERE PAIN LEVEL 7-10 Last administered on 09/13/18 12:32; Admin Dose 1 MG; Start 09/11/18 at 22:00 Pantoprazole (Protonix Tab) 40 mg DAILY@06 PO Last administered on 09/13/18 06:28; Admin Dose 40 MG; Start 09/13/18 at 06:00 Assessment/Plan Hospital Course (Demo Recall) Assessment 1. History of recurrent hemoptysis unremarkable chest CT source unclear 2- prior bronchoscopies. Possible AVM 2. History of thyroid cancer 3. Apparent history of lymphoma in the past. Plan 1. Cardiac echo with bubble study to evaluate for intrapulmonary shunt. Agree with transfer to tertiary care center for possible pulmonary angiogram and sclerotherapy. 2. Monitor H&H 3. Antidepressants Pending transfer to [facility]. MARGE GUZMAN MD, [facility] Sep 13, 2018 15:05
[2018-09-13] MEDS: DAPTOMYCIN 500 MG in SOD CHLORIDE 0.9% 100 ML IVPB SCH (15:52)
--- NOTE | 2018-09-13 16:01 | PN ---
Date/Time of Note Date/Time of Note DATE: 09/13/18 TIME: 15:59 Assessment/Plan VTE Prophylaxis Risk score (from Ns)>0 risk: 6 [place] [facility] SCD contraindicated: other Pharmacological prophylaxis: NA/contraindicated Pharm contraindication: bleeding Lines/Catheters [facility] PICC Line Central line still needed: Yes Urinary Cath still in place: No Assessment/Plan Hospital Course SUBJECTIVE: Denies any abdominal pain or diarrhea. Reports hemoptysis although decreased. OBJECTIVE: Physical Exam General: Adequately build 52 year-old female lying in bed in no apparent distress. HEENT: Normocephalic, atraumatic. Eyes: Anicteric sclerae, conjunctivae clear. ENT: Nasal septum midline, oral mucosa moist. Ulcer in the frenulum linguae. Neck supple, no JVD noticed. Respiratory: Bilaterally clear breath sounds. No use of accessory muscles of respiration. No adventitious breath sounds. Cardiovascular: S1, S2 heard. No murmurs or gallops. Abdomen: Soft, nondistended, nontender. Bowel sounds positive in all 4 quadrants. Genitourinary: Deferred. Extremities: No cyanosis, no clubbing, no edema. Peripheral pulses palpable. Neurologic: Cranial nerves II through XII grossly intact. The patient is awake, alert, and oriented. Skin: Normal skin turgor. No skin rashes. 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 The patient's CT scan of the abdomen and pelvis was showing colitis involving the ascending, transverse, descending colon. The patient also had underlying leukocytosis and bandemia. Therefore, the patient was admitted to inpatient setting for further treatment and evaluati on. 1. Acute pancolitis. -Stool studies showing Giardia. S/P Flagyl (last day 08/21/2018) -Being followed by gastroenterology and ID. -Colonoscopy on 08/17/2018 showed patchy colitis. 2. Fevers with coagulase-negative Staphylococcus bacteremia on 09/01/2018. - Stenotrophomonas maltophilia bacteremia on 09/03/2018. -The patient is allergic to vancomycin. -Started the patient on daptomycin on 09/02/2018. -Start the patient on cefepime on 09/03/2018. -2D echocardiogram negative for any cardiac vegetation. 3. 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 -No evidence or documented history of Hodgkin's lymphoma as per oncology. 4. History of PE. -Status post IVC filter placement. 5. Anemia. -Microcytic and hypochromic. -Monitor H&H closely. -Stool for OB x1 positive. 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 6. Chronic pain syndrome. -Pain management as per pain team. 7. Hyperglycemia. -Etiology unclear. -Hemoglobin A1c within normal limits although this could be the glycosylated hemoglobin from the transfused (donor) blood. -The patient was told by her primary care provider previously that she is borderline diabetic. -Started the patient on sliding scale insulin on 08/17/2018. -Stopped the patients insulin SSI on 08/21/2018 once the hyperglycemia was resolved. 8. Hemoptysis on 08/18/2018. -Being followed by Pulmonology. -S/P bronchoscopy on 08/24/2018 that was unremarkable. -S/P esophagogastroduodenoscopyX2 that showed no evidence of any gastrointestinal bleed. -Status post ENT evaluation along with laryngoscopy on 09/01/2018 with no evidence of any bleeding site history of hemoptysis. 9. Ulcer of the frenulum linguae. -Continue management as per ID. 10. Fluids, electrolytes, and nutrition. -Soft diet. 11. DVT prophylaxis -Bilateral SCDs. 12. Plan. -Continue pain control. -Continue antimicrobials. -Await clinical improvement. -Awaiting to be transferred to a tertiary care facility for further evaluation of hemoptysis that is unexplained. The patient was seen in collaboration with Dr. Prabhakar. Result Diagram: 09/13/18 0904 09/13/18 0609 Results 24hrs Laboratory Tests Test 09/12/18 21:23 09/13/18 06:08 09/13/18 06:09 09/13/18 09:04 Hemoglobin 8.2 L 8.3 L 8.8 L Hematocrit 25.9 L 26.0 L 27.9 L Magnesium Level 1.9 White Blood Count 2.9 L Red Blood Count 3.27 L Mean Corpuscular 79.5 L Volume Mean Corpuscular 25.4 L Hemoglobin Mean Corpuscular 31.9 L Hemoglobin Concent Red Cell 18.8 H Distribution Width Platelet Count 193 Mean Platelet 10.2 Volume Immature 0.700 H Granulocytes % Neutrophils % 55.2 Lymphocytes % 29.3 Monocytes % 12.4 H Eosinophils % 1.7 Basophils % 0.7 Nucleated Red 0.0 Blood Cells % Immature 0.020 Granulocytes # Neutrophils # 1.6 Lymphocytes # 0.9 Monocytes # 0.4 Eosinophils # 0.1 Basophils # 0.0 Nucleated Red 0.0 Blood Cells # Sodium Level 140 Potassium Level 3.4 L Chloride Level 105 Carbon Dioxide 32 H Level Anion Gap 3 #L Blood Urea 13 Nitrogen Creatinine 0.54 Est Glomerular > 60 Filtrat Rate mL/min Glucose Level 119 Calcium Level 8.5 Total Bilirubin 0.2 Direct Bilirubin 0.00 Indirect Bilirubin 0.2 Aspartate Amino 22 Transf (AST/SGOT) Alanine 23 Aminotransferase ( ALT/SGPT) Alkaline 74 Phosphatase Total Protein 5.8 L Albumin 3.3 Globulin 2.50 Albumin/Globulin 1.32 Ratio Test 09/13/18 09:18 Lab Scanned Report REFERENCE LAB Exam/Review of Systems Exam Vitals Vital Signs Date Temp Pulse Resp B/P (MAP) Pulse Ox O2 O2 Flow FiO2 Time Delivery Rate 09/13/18 98.5 67 18 98/58 (71) 99 08:00 09/10/18 Room Air 15:30 Intake and Output 09/12/18 09/12/18 09/13/18 1515:00 23:00 07:00 IntakeIntake Total 500 ml 680 ml OutputOutput Total 120 ml BalanceBalance 500 ml 680 ml -120 ml Results Results 24hrs Laboratory Tests Test 09/12/18 21:23 09/13/18 06:08 09/13/18 06:09 09/13/18 09:04 Hemoglobin 8.2 L 8.3 L 8.8 L Hematocrit 25.9 L 26.0 L 27.9 L Magnesium Level 1.9 White Blood Count 2.9 L Red Blood Count 3.27 L Mean Corpuscular 79.5 L Volume Mean Corpuscular 25.4 L Hemoglobin Mean Corpuscular 31.9 L Hemoglobin Concent Red Cell 18.8 H Distribution Width Platelet Count 193 Mean Platelet 10.2 Volume Immature 0.700 H Granulocytes % Neutrophils % 55.2 Lymphocytes % 29.3 Monocytes % 12.4 H Eosinophils % 1.7 Basophils % 0.7 Nucleated Red 0.0 Blood Cells % Immature 0.020 Granulocytes # Neutrophils # 1.6 Lymphocytes # 0.9 Monocytes # 0.4 Eosinophils # 0.1 Basophils # 0.0 Nucleated Red 0.0 Blood Cells # Sodium Level 140 Potassium Level 3.4 L Chloride Level 105 Carbon Dioxide 32 H Level Anion Gap 3 #L Blood Urea 13 Nitrogen Creatinine 0.54 Est Glomerular > 60 Filtrat Rate mL/min Glucose Level 119 Calcium Level 8.5 Total Bilirubin 0.2 Direct Bilirubin 0.00 Indirect Bilirubin 0.2 Aspartate Amino 22 Transf (AST/SGOT) Alanine 23 Aminotransferase ( ALT/SGPT) Alkaline 74 Phosphatase Total Protein 5.8 L Albumin 3.3 Globulin 2.50 Albumin/Globulin 1.32 Ratio Test 09/13/18 09:18 Lab Scanned Report REFERENCE LAB Medications Medication Current Medications IV Flush (NS 3 ml) 3 ml PER PROTOCOL IV ; Start 08/13/18 at 20:00 Ondansetron HCl (Zofran Inj) 4 mg Q6H PRN IV NAUSEA AND/OR VOMITING Last administered on 09/13/18at 00:30; Admin Dose 4 MG; Start 08/13/18 at 20:00 Duloxetine HCl (Cymbalta) 60 mg DAILY PO Last administered on 09/13/18at 09:06; Admin Dose 60 MG; Start 08/14/18 at 09:00 Alteplase, Recombinant (Cathflo (Activase)) 2 mg MAY REPEAT X1 PRN CATHETER IF CATHETER REMAINS OCCULUDED Last administered on 09/06/18at 11:28; Admin Dose 2 MG; Start 08/15/18 at 06:00 Zinc Sulfate (Zinc Sulfate) 220 mg DAILY PO Last administered on 09/13/18at 09:06; Admin Dose 220 MG; Start 08/17/18 at 09:00 Eye Lubricant (Artificial Tears Oph) 1 drop Q6H PRN BOTH EYES DRY EYES Last administered on 08/19/18at 00:00; Admin Dose 1 DROP; Start 08/16/18 at 23:30 Miscellaneous Information 1 ea NOTE XX ; Start 08/17/18 at 10:30 Glucose (Glutose) 15 gm Q15M PRN PO DECREASED GLUCOSE; Start 08/17/18 at 10:30 Glucose (Glutose) 22.5 gm Q15M PRN PO DECREASED GLUCOSE; Start 08/17/18 at 10:30 Dextrose (D50w Syringe) 25 ml Q15M PRN IV DECREASED GLUCOSE; Start 08/17/18 at 10:30 Dextrose (D50w Syringe) 50 ml Q15M PRN IV DECREASED GLUCOSE; Start 08/17/18 at 10:30 Glucagon (Glucagen) 1 mg Q15M PRN IM DECREASED GLUCOSE; Start 08/17/18 at 10:30 Glucose (Glutose) 15 gm Q15M PRN BUCCAL DECREASED GLUCOSE; Start 08/17/18 at 10:30 Zolpidem Tartrate (Ambien) 10 mg QHS PRN PO INSOMNIA Last administered on 09/12/18at 22:08; Admin Dose 10 MG; Start 08/20/18 at 11:30 Phenol (Cepastat Lozenge) 1 lozenge Q1H PRN MT THROAT PAIN Last administered on 09/13/18 09:08; Admin Dose 1 LOZENGE; Start 08/21/18 at 11:00 Acetaminophen (Tylenol Tab) 500 mg Q6H PRN PO MILD PAIN(1-3)OR ELEVATED TEMP; Start 09/01/18 at 18:30 Lidocaine (Xylocaine (Viscous)) 15 ml QID PRN PO Pain in the mouth; Start 09/02/18 at 10:30 Daptomycin 500 mg/ Sodium Chloride 100 ml @ 200 mls/hr Q24H IVPB Last administered on 09/13/18at 15:52; Admin Dose 200 MLS/HR; Start 09/03/18 at 16:00 Levofloxacin/ Dextrose 100 ml @ 100 mls/hr Q24H IVPB Last administered on 08/27 16:29; Admin Dose 100 MLS/HR; Start 09/05/18 at 16:30; Stop 09/19/18 at 16:29 Trazodone HCl (Desyrel) 50 mg BID PO Last administered on 09/13/18 09:06; Admin Dose 50 MG; Start 09/08/18 at 12:30 Lactobacillus Acidophilus/ Rhamnosus (Culturelle) 1 cap BID PO Last administered on 09/13/18at 09:07; Admin Dose 1 CAP; Start 09/08/18 at 12:00 Promethazine HCl/ Codeine (Phenergan/ Codeine) 10 ml Q4H PRN PO COUGH; Start 09/09/18 at 17:30 Oxymetazoline HCl (Afrin [place]) 2 spray BID NASAL Last administered on 09/13/18 09:07; Admin Dose 2 SPRAY; Start 09/09/18 at 21:00 Cholecalciferol (Vitamin D) 2,000 unit DAILY PO Last administered on 09/13/18 09:06; Admin Dose 2,000 UNIT; Start 09/13/18 at 09:00 Diphenhydramine HCl (Benadryl) 50 mg Q4 PRN IV ITCHING Last administered on 09/13/18 12:31; Admin Dose 50 MG; Start 09/10/18 at 13:00 Levothyroxine Sodium (Synthroid) 50 mcg BEFORE BREAKFAST PO Last administered on 09/13/18 06:18; Admin Dose 50 MCG; Start 09/13/18 at 07:00 Lorazepam (Ativan) 2 mg Q6 PRN IV Anxiety Last administered on 09/13/18 06:18; Admin Dose 2 MG; Start 09/10/18 at 13:00 Methadone HCl (Methadone Liq) 1 mg TID PO Last administered on 09/13/18 13:33; Admin Dose 1 MG; Start 09/11/18 at 21:00 Hydromorphone HCl (Dilaudid) 1 mg Q4H PRN IV SEVERE PAIN LEVEL 7-10 Last administered on 09/13/18 12:32; Admin Dose 1 MG; Start 09/11/18 at 22:00 Pantoprazole (Protonix Tab) 40 mg DAILY@06 PO Last administered on 09/13/18 06:28; Admin Dose 40 MG; Start 09/13/18 at 06:00 SUZANNE STEVENSON NP Sep 13, 2018 16:01
[2018-09-13] MEDS: LEVOFLOXACIN 500MG/D5W (PMX) 100 ML IVPB SCH (16:32)
--- NOTE | 2018-09-13 17:28 | RADRPT ---
Echocardiogram Report Patient Name: TAURUS SUAREZPatient ID: [id number] : 1965 (52y 10m)Study Date: 09/13/2018 7:46:47 AM Gender: FAccession #: [id number] Tech: LE Location: Ref.Physician: MARGE GUZMAN Height(Cm): BSA: Weight(Kg): Quality: GoodAccount #: Procedures: Echocardiographic Report: Transthoracic echocardiogram examination. Indications: Limited echo to evaluate for PFO with bubble study. Measurements: 2D/M Mode Measurement Value Normal Range LVIDd 2D 4.9 [ 3.8 - 5.2 ] cm LVIDs 2D 3.4 [ 2.2 - 3.5 ] cm IVSd 2D 0.9 [ 0.6 - 0.9 ] cm Findings: Left Ventricle: Normal left ventricular cavity size, wall thickness and systolic function. Normal left ventricular cavity size. Lower limits of normal left ventricular systolic function. Normal left ventricular wall thickness. The left ventricular ejection fraction is visually estimated at 50-55 %. Right Ventricle: Normal right ventricular size. Normal right ventricular systolic function. Left Atrium: The left atrium is normal in size and appearance. Right Atrium: The right atrium is normal in size and appearance. Atrial Septum: Normal atrial septum. Agitated saline was injected intravenously for microbubble contrast study. No right to left shunt was identified with and with out valsalva maneuver. Mitral Valve: Normal appearance of the mitral valve leaflets. Trivial mitral regurgitation. Aortic Valve: Normal appearance and function of the aortic valve. Tricuspid Valve: Normal appearance of the tricuspid valve. There is trivial tricuspid regurgitation. Pulmonic Valve: The pulmonic valve is not well visualized. Pericardium: Normal pericardium with no significant pericardial effusion. Aorta: Normal aortic root. IVC: The inferior vena cava is not well visualized. Conclusions: Normal left ventricular cavity size, wall thickness and systolic function. Normal left ventricular cavity size. Lower limits of normal left ventricular systolic function. Normal left ventricular wall thickness. The left ventricular ejection fraction is visually estimated at 50-55 %. Normal appearance of the mitral valve leaflets. Trivial mitral regurgitation. Normal appearance of the tricuspid valve. There is trivial tricuspid regurgitation. Normal atrial septum. Agitated saline was injected intravenously for microbubble contrast study. No right to left shunt was identified with and with out valsalva maneuver. Electronically Signed By: Nando Hubbard 2018-09-13 17:28:02 PST
[2018-09-13 19:47] VITALS: BP 108/62; PULSE 84; RESP 18
[2018-09-13] MEDS: ZOLPIDEM 5 MG TAB PO PRN (20:54)
[2018-09-14] MEDS: LORAZEPAM 2 MG INJ IV PRN ×4 (00:27→21:29)
[2018-09-14] MEDS: DIPHENHYDRAMINE 50 MG INJ IV PRN ×6 (00:42→23:31)
[2018-09-14] MEDS: HYDROmorphONE 1 MG/ML SYG IV PRN ×6 (00:43→23:31)
[2018-09-14 01:27] VITALS: BP 94/58; PULSE 81; RESP 18
[2018-09-14 03:33] VITALS: BP 126/71; PULSE 79
[2018-09-14] MEDS ORDERED: HYDROmorphONE 2 MG/ML SYG ONE (04:14)
[2018-09-14] MEDS ORDERED: HYDROmorphONE 1 MG/ML SYG IV ONE (04:30)
--- NOTE | 2018-09-14 05:38 | PN ---
Date/Time of Note Date/Time of Note DATE: 09/14/18 TIME: 05:38 Assessment/Plan VTE Prophylaxis Risk score (from Ns)>0 risk: 6 SCD applied (from [facility] [place]): No SCD contraindicated: other Pharmacological prophylaxis: NA/contraindicated Pharm contraindication: bleeding Lines/Catheters IV Catheter Type (from [facility]): PICC Line Central line still needed: Yes Urinary Cath still in place: No Assessment/Plan Hospital Course SUBJECTIVE: Denies any abdominal pain or diarrhea. Reports hemoptysis although decreased. OBJECTIVE: Physical Exam General: Adequately build 52 year-old female lying in bed in no apparent distress. HEENT: Normocephalic, atraumatic. Eyes: Anicteric sclerae, conjunctivae clear. ENT: Nasal septum midline, oral mucosa moist. Ulcer in the frenulum linguae. Neck supple, no JVD noticed. Respiratory: Bilaterally clear breath sounds. No use of accessory muscles of respiration. No adventitious breath sounds. Cardiovascular: S1, S2 heard. No murmurs or gallops. Abdomen: Soft, nondistended, nontender. Bowel sounds positive in all 4 quadrants. Genitourinary: Deferred. Extremities: No cyanosis, no clubbing, no edema. Peripheral pulses palpable. Neurologic: Cranial nerves II through XII grossly intact. The patient is awake, alert, and oriented. Skin: Normal skin turgor. No skin rashes. 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 The patient's CT scan of the abdomen and pelvis was showing colitis involving the ascending, transverse, descending colon. The patient also had underlying leukocytosis and bandemia. Therefore, the patient was admitted to inpatient setting for further treatment and evaluati on. 1. Acute pancolitis. -Stool studies showing Giardia. S/P Flagyl (last day 08/21/2018) -Being followed by gastroenterology and ID. -Colonoscopy on 08/17/2018 showed patchy colitis. 2. Fevers with coagulase-negative Staphylococcus bacteremia on 09/01/2018. - Stenotrophomonas maltophilia bacteremia on 09/03/2018. -The patient is allergic to vancomycin. -Started the patient on daptomycin on 09/02/2018. -Start the patient on cefepime on 09/03/2018. -2D echocardiogram negative for any cardiac vegetation. 3. 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 -No evidence or documented history of Hodgkin's lymphoma as per oncology. 4. History of PE. -Status post IVC filter placement. 5. Anemia. -Microcytic and hypochromic. -Monitor H&H closely. -Stool for OB x1 positive. 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 6. Chronic pain syndrome. -Pain management as per pain team. 7. Hyperglycemia. -Etiology unclear. -Hemoglobin A1c within normal limits although this could be the glycosylated hemoglobin from the transfused (donor) blood. -The patient was told by her primary care provider previously that she is borderline diabetic. -Started the patient on sliding scale insulin on 08/17/2018. -Stopped the patients insulin SSI on 08/21/2018 once the hyperglycemia was resolved. 8. Hemoptysis on 08/18/2018. -Being followed by Pulmonology. -S/P bronchoscopy on 08/24/2018 that was unremarkable. -S/P esophagogastroduodenoscopyX2 that showed no evidence of any gastrointestinal bleed. -Status post ENT evaluation along with laryngoscopy on 09/01/2018 with no evidence of any bleeding site history of hemoptysis. 9. Ulcer of the frenulum linguae. -Continue management as per ID. 10. Fluids, electrolytes, and nutrition. -Soft diet. 11. DVT prophylaxis -Bilateral SCDs. 12. Plan. -Continue pain control. -Continue antimicrobials. -Await clinical improvement. -Awaiting to be transferred to a tertiary care facility for further evaluation of hemoptysis that is unexplained. The patient was seen in collaboration with Dr. Prabhkaar. Result Diagram: 09/13/18204109/13/18 0609 Results 24hrs Laboratory Tests Test 09/13/18 06:08 09/13/18 06:09 09/13/18 09:04 09/13/18 09:18 Magnesium Level 1.9 White Blood Count 2.9 L Red Blood Count 3.27 L Hemoglobin 8.3 L 8.8 L Hematocrit 26.0 L 27.9 L Mean Corpuscular 79.5 L Volume Mean Corpuscular 25.4 L Hemoglobin Mean Corpuscular 31.9 L Hemoglobin Concent Red Cell 18.8 H Distribution Width Platelet Count 193 Mean Platelet 10.2 Volume Immature 0.700 H Granulocytes % Neutrophils % 55.2 Lymphocytes % 29.3 Monocytes % 12.4 H Eosinophils % 1.7 Basophils % 0.7 Nucleated Red 0.0 Blood Cells % Immature 0.020 Granulocytes # Neutrophils # 1.6 Lymphocytes # 0.9 Monocytes # 0.4 Eosinophils # 0.1 Basophils # 0.0 Nucleated Red 0.0 Blood Cells # Sodium Level 140 Potassium Level 3.4 L Chloride Level 105 Carbon Dioxide 32 H Level Anion Gap 3 #L Blood Urea 13 Nitrogen Creatinine 0.54 Est Glomerular > 60 Filtrat Rate mL/min Glucose Level 119 Calcium Level 8.5 Total Bilirubin 0.2 Direct Bilirubin 0.00 Indirect Bilirubin 0.2 Aspartate Amino 22 Transf (AST/SGOT) Alanine 23 Aminotransferase ( ALT/SGPT) Alkaline 74 Phosphatase Total Protein 5.8 L Albumin 3.3 Globulin 2.50 Albumin/Globulin 1.32 Ratio Lab Scanned Report REFERENCE LAB Test 09/13/18 20:42 Hemoglobin 8.5 L Hematocrit 26.8 L Exam/Review of Systems Exam Vitals Vital Signs Date Temp Pulse Resp B/P (MAP) Pulse Ox O2 O2 Flow FiO2 Time Delivery Rate 09/14/18 79 126/71 03:33 (89) 09/14/18 98.6 18 97 01:27 09/10/18 Room Air 15:30 Intake and Output 09/13/18 09/13/18 09/14/18 1515:00 23:00 07:00 IntakeIntake Total 480 ml 400 ml OutputOutput Total 30 ml BalanceBalance 480 ml 370 ml Results Results 24hrs Laboratory Tests Test 09/13/18 06:08 09/13/18 06:09 09/13/18 09:04 09/13/18 09:18 Magnesium Level 1.9 White Blood Count 2.9 L Red Blood Count 3.27 L Hemoglobin 8.3 L 8.8 L Hematocrit 26.0 L 27.9 L Mean Corpuscular 79.5 L Volume Mean Corpuscular 25.4 L Hemoglobin Mean Corpuscular 31.9 L Hemoglobin Concent Red Cell 18.8 H Distribution Width Platelet Count 193 Mean Platelet 10.2 Volume Immature 0.700 H Granulocytes % Neutrophils % 55.2 Lymphocytes % 29.3 Monocytes % 12.4 H Eosinophils % 1.7 Basophils % 0.7 Nucleated Red 0.0 Blood Cells % Immature 0.020 Granulocytes # Neutrophils # 1.6 Lymphocytes # 0.9 Monocytes # 0.4 Eosinophils # 0.1 Basophils # 0.0 Nucleated Red 0.0 Blood Cells # Sodium Level 140 Potassium Level 3.4 L Chloride Level 105 Carbon Dioxide 32 H Level Anion Gap 3 #L Blood Urea 13 Nitrogen Creatinine 0.54 Est Glomerular > 60 Filtrat Rate mL/min Glucose Level 119 Calcium Level 8.5 Total Bilirubin 0.2 Direct Bilirubin 0.00 Indirect Bilirubin 0.2 Aspartate Amino 22 Transf (AST/SGOT) Alanine 23 Aminotransferase ( ALT/SGPT) Alkaline 74 Phosphatase Total Protein 5.8 L Albumin 3.3 Globulin 2.50 Albumin/Globulin 1.32 Ratio Lab Scanned Report REFERENCE LAB Test 09/13/18 20:42 Hemoglobin 8.5 L Hematocrit 26.8 L Medications Medication Current Medications IV Flush (NS 3 ml) 3 ml PER PROTOCOL IV ; Start 08/13/18 at 20:00 Ondansetron HCl (Zofran Inj) 4 mg Q6H PRN IV NAUSEA AND/OR VOMITING Last administered on 09/13/18at 00:30; Admin Dose 4 MG; Start 08/13/18 at 20:00 Duloxetine HCl (Cymbalta) 60 mg DAILY PO Last administered on 09/13/18at 09:06; Admin Dose 60 MG; Start 08/14/18 at 09:00 Alteplase, Recombinant (Cathflo (Activase)) 2 mg MAY REPEAT X1 PRN CATHETER IF CATHETER REMAINS OCCULUDED Last administered on 09/06/18at 11:28; Admin Dose 2 MG; Start 08/15/18 at 06:00 Zinc Sulfate (Zinc Sulfate) 220 mg DAILY PO Last administered on 09/13/18at 09:06; Admin Dose 220 MG; Start 08/17/18 at 09:00 Eye Lubricant (Artificial Tears Oph) 1 drop Q6H PRN BOTH EYES DRY EYES Last administered on 08/19/18at 00:00; Admin Dose 1 DROP; Start 08/16/18 at 23:30 Miscellaneous Information 1 ea NOTE XX ; Start 08/17/18 at 10:30 Glucose (Glutose) 15 gm Q15M PRN PO DECREASED GLUCOSE; Start 08/17/18 at 10:30 Glucose (Glutose) 22.5 gm Q15M PRN PO DECREASED GLUCOSE; Start 08/17/18 at 10:30 Dextrose (D50w Syringe) 25 ml Q15M PRN IV DECREASED GLUCOSE; Start 08/17/18 at 10:30 Dextrose (D50w Syringe) 50 ml Q15M PRN IV DECREASED GLUCOSE; Start 08/17/18 at 10:30 Glucagon (Glucagen) 1 mg Q15M PRN IM DECREASED GLUCOSE; Start 08/17/18 at 10:30 Glucose (Glutose) 15 gm Q15M PRN BUCCAL DECREASED GLUCOSE; Start 08/17/18 at 10:30 Zolpidem Tartrate (Ambien) 10 mg QHS PRN PO INSOMNIA Last administered on 09/13/18at 20:54; Admin Dose 10 MG; Start 08/20/18 at 11:30 Phenol (Cepastat Lozenge) 1 lozenge Q1H PRN MT THROAT PAIN Last administered on 09/13/18 09:08; Admin Dose 1 LOZENGE; Start 08/21/18 at 11:00 Acetaminophen (Tylenol Tab) 500 mg Q6H PRN PO MILD PAIN(1-3)OR ELEVATED TEMP; Start 09/01/18 at 18:30 Lidocaine (Xylocaine (Viscous)) 15 ml QID PRN PO Pain in the mouth; Start 09/02/18 at 10:30 Daptomycin 500 mg/ Sodium Chloride 100 ml @ 200 mls/hr Q24H IVPB Last administered on 09/13/18at 15:52; Admin Dose 200 MLS/HR; Start 09/03/18 at 16:00 Levofloxacin/ Dextrose 100 ml @ 100 mls/hr Q24H IVPB Last administered on 09/13/18 16:32; Admin Dose 100 MLS/HR; Start 09/05/18 at 16:30; Stop 09/19/18 at 16:29 Trazodone HCl (Desyrel) 50 mg BID PO Last administered on 09/13/18at 20:44; Admin Dose 50 MG; Start 09/08/18 at 12:30 Lactobacillus Acidophilus/ Rhamnosus (Culturelle) 1 cap BID PO Last administered on 09/13/18 09:07; Admin Dose 1 CAP; Start 09/08/18 at 12:00 Promethazine HCl/ Codeine (Phenergan/ Codeine) 10 ml Q4H PRN PO COUGH; Start 09/09/18 at 17:30 Oxymetazoline HCl (Afrin [place]) 2 spray BID NASAL Last administered on 09/13/18 09:07; Admin Dose 2 SPRAY; Start 09/09/18 at 21:00 Cholecalciferol (Vitamin D) 2,000 unit DAILY PO Last administered on 09/13/18 09:06; Admin Dose 2,000 UNIT; Start 09/13/18 at 09:00 Diphenhydramine HCl (Benadryl) 50 mg Q4 PRN IV ITCHING Last administered on 09/14/18 04:47; Admin Dose 50 MG; Start 09/10/18 at 13:00 Levothyroxine Sodium (Synthroid) 50 mcg BEFORE BREAKFAST PO Last administered on 09/13/18 06:18; Admin Dose 50 MCG; Start 09/13/18 at 07:00 Lorazepam (Ativan) 2 mg Q6 PRN IV Anxiety Last administered on 09/14/18 00:27; Admin Dose 2 MG; Start 09/10/18 at 13:00 Methadone HCl (Methadone Liq) 1 mg TID PO Last administered on 09/13/18 20:45; Admin Dose 1 MG; Start 09/11/18 at 21:00 Hydromorphone HCl (Dilaudid) 1 mg Q4H PRN IV SEVERE PAIN LEVEL 7-10 Last administered on 09/14/18 00:43; Admin Dose 1 MG; Start 09/11/18 at 22:00 Pantoprazole (Protonix Tab) 40 mg DAILY@06 PO Last administered on 09/13/18 06:28; Admin Dose 40 MG; Start 09/13/18 at 06:00 SUZANNE STEVENSON NP Sep 14, 2018 05:38
[2018-09-14] MEDS: LEVOTHYROXINE 50 MCG TAB PO SCH (06:27)
[2018-09-14] MEDS: PANTOPRAZOLE (EC) 40 MG TAB PO SCH (06:27)
[2018-09-14 08:11] VITALS: BP 125/56; PULSE 73; RESP 18
[2018-09-14] MEDS: OXYMETAZOLINE 0.05% 15 ML NAS SPRAY NASAL SCH ×2 (08:42→20:45)
[2018-09-14] MEDS: ZINC SULFATE 220 MG CAP PO SCH (08:43)
[2018-09-14] MEDS: CHOLECALCIFEROL 2,000 UNIT CAP PO SCH (08:43)
[2018-09-14] MEDS: traZODone 50 MG TAB PO SCH ×2 (08:43→20:42)
[2018-09-14] MEDS: DULOXETINE 30 MG CAP DR PO SCH (08:43)
[2018-09-14] MEDS: LACTOBACILLUS RHAMNOSUS CAP PO SCH ×2 (08:43→20:42)
[2018-09-14] MEDS: METHADONE (1 MG/ML 5 ML PO UD SYG) PO SCH ×3 (08:44→20:42)
--- NOTE | 2018-09-14 11:09 | CONS ---
Assessment/Plan Assessment/Plan Hospital Course (Demo Recall) sepsis, endovascular infection - s/p sepsis d/t bacteremia - fever and tachycardia resolved - bacteremia d/t Coag Neg Staph and Stenotrophomonas maltophilia on 09/01/2018 and 09/02/2018; repeat blood cultures 09/04/18 negative - h/o "bacteremia due to enterococci" according to progress notes at [facility], but the actual microbiology report indicated blood culture was positive for ESBL+E. coli - h/o fungemia due to kaley glabrata, sensitive to fluconazole and to micafungin/caspofungin at [facility] - TTE done 09/04/18 showed no mention of valvular vegetations; EF 55-60% pulm - persistent hemoptysis of unknown etiology: Pt reports negative PPD last month at [facility]. - according to the microbiology report at [facility], Pt had ESBL+E. coli in her respiratory culture. Sputum cultures for AFB and fungi were negative at 8 weeks and at 4 weeks respectively at [facility] - Pt had negative bronchoscopy in 05/2018 at [facility], another at [facility] in 2017, and on 08/25/2018 at [facility] (no e/o bronchial airway bleeding according to Dr. Bello - Numerous tiny lung nodules, increased in number from the chest CT dated May 22, 2018, with largest measuring 0.3 cm in the left apex-->follow up CT on 09/10/2018 indicated: stable bilateral micronodules dating back to examination of at least 01/29/2017; RLL fibrosis. - Kaley albicans in sputum cx on 08/28/2018 - likely colonizer - so far: aspergillus antibody not detected, HIV negative, coccidioidomycosis serology negative, TB Quant Gold negative, 1,3 beta d glucan negative, procalc 09/01/18 was 0.30; Sputum for O&P was prelim negative and growing nl resp zay GI - Delgado-colitis per CT 08/13/18 - S/p diarrhea on 09/06/18 - s/p EGD on 09/10/2018: no GI bleeding noted, reportedly completely normal - S/p sigmoidoscopy with biopsy 08/17/2018; path showed no e/o colitis or malignancy from transverse colon and rectum biopsies - S/p bloody diarrhea d/t Giardia; Pt took metronidazole for Giardia (08/14/2018- 08/21/2018) in 07/2018. - H/o C diff toxin negative PCR positive status at [facility]. Took a course of Fidaxomyxin x 10 days. C. 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 Iron deficiency must be ruled out. - H/o BUE and RLE DVT, s/p IVC filter in January 2018 - H/o Hodgkin lymphoma diagnosed in 2006 - H/o thyroid CA diagnosed in 2005, s/p resection, chemo and XRT - IVC filter placement - Patient reports that approximately 2 years ago (2016?) she had an abnormal mammogram of Left breast and that she was scheduled for a biopsy approximately 4 months ago but d/t insurance change did not receive the biopsy, on 09/13/18 giselle ent reported brown drainage from left nipple x2 nights - +Family hx of cancer (father of stomach CA, mother of lymphoma, paternal uncle had breast CA and 12 yo daughter has h/o brain tumor s/p surgery and resulting blindness) , renal - h/o UTI due to ESBL+E. coli - S/p PO levofloxacin (08/24/2018-08/28/2018) for probable UTI other conditions - s/p a painful ulcer at frenulum, resolving. According to Pt, topical steroid would worsen the pain. HIV negative, RPR non reactive, herpes 1 and 2 by PCR not detected; s/p trial of PO valacyclovir (08/27/2018-09/01/2018) - s/p bilateral conjunctivitis - improved s/p Cipro eye drops (08/18/18-08/23/18) - Hypothyroidism - HLD - S/p hypokalemia - OA - depression/anxiety - H/o x2 - Allergy to PCN and vancomycin (reaction unknown) Recommendations: - Pending: sputum for ova and parasite (micro, pathology) to r/o parasitic infections i.e. strongyloides, paragonimiasis (prelim neg and growing nl zay) - Continue daptomycin (clarify allergy to vanco; 09/02/2018-) and levofloxacin (08/25/18-08/27/2018; restart 09/05/2018-) to complete 14 days from first negative blood culture; s/p Cefepime (09/03/18 - 09/05/18). Suggested end date of dapto through 09/17/2018 and Levaquin through 09/18/2018 - Weekly CK level (<20 on 09/03/2018, 39 on 09/10/2018) while on daptomycin - Consider breast exam and mammogram (pt reported brown drainage from nipple x2 nights [09/12/18 and 09/13/18], states had an abnormal mammogram 2 years ago and planned biopsy which was never done) Management was d/w patient and with Dr. Hansen. Thank you Consultation Date/Type/Reason Admit Date/Time Aug 13, 2018 at 17:22 Initial Consult Date 08/19/18 Type of Consult ID Requesting Provider: SHAQUILLE HARRIS Date/Time of Note DATE: 09/14/18 TIME: 11:02 24 HR Interval Summary Free Text/Dictation Patient has remained afebrile, wbc 2.9 Awaiting transfer to [facility]. Patient denies any Left nipple drainage overnight. C/o hemoptysis, cough accompanied with sob while coughing, nausea relieved with zofran. Denied other ROS. Exam/Review of Systems Exam Vitals Vital Signs Date Temp Pulse Resp B/P (MAP) Pulse Ox O2 O2 Flow FiO2 Time Delivery Rate 09/14/18 98.2 73 18 125/56 100 Room Air 08:11 (79) Intake and Output 09/13/18 09/13/18 09/14/18 1515:00 23:00 07:00 IntakeIntake Total 480 ml 400 ml 480 ml OutputOutput Total 30 ml BalanceBalance 480 ml 370 ml 480 ml Exam Constitutional: alert, well developed, frail, other (laying in bed eating a yogurt) Psych: no complaints, nl mood/affect Head: normocephalic, atraumatic Eyes: nl conjunctiva, nl lids, nl sclera ENMT: nl external ears & nose, nl nasal mucosa & septum, mucosa pink and moist (no thrush) Neck: supple, non-tender, other (not swollen) Respiratory: clear to auscultation (left lung [place]), normal air movement, other (Inspiratory wheeze noted R upper and middle lobes, diminished right lower lobe) Cardiovascular: regular rate and rhythm, nl pulses Gastrointestinal: soft, non-tender, bowel sounds (normoactive) Genitourinary - Female: other (no f/c) Musculoskeletal: nl extremities to inspection Extremities: normal pulses; No edema 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 No drainage noted from either breast or nipple with and without palpation) Lymph: nontender Results Result Diagram: 09/14/18 0811 09/13/18 0609 Results 24hrs Laboratory Tests Test 09/13/18 20:42 09/14/18 08:11 Hemoglobin 8.5 L 8.3 L Hematocrit 26.8 L 26.[address] scan from 08/04/16 from [facility] showed scattered micro nodules bilaterally most likely post inflammatory CT scan 09/11/18 IMPRESSION: 1. No acute pulmonary change. 2. Stable bilateral micronodules dating back to examination of at least 01/29/2017. 3. Right lower lobe fibrosis. 4. Status post cholecystectomy. 5. Left upper extremity PICC line and IVC filter in place. Please note that in the absence of intravenous contrast, the study does not evaluate the patency of the vasculature. Medications Medication Current Medications IV Flush (NS 3 ml) 3 ml PER PROTOCOL IV ; Start 08/13/18 at 20:00 Ondansetron HCl (Zofran Inj) 4 mg Q6H PRN IV NAUSEA AND/OR VOMITING Last administered on 09/13/18at 00:30; Admin Dose 4 MG; Start 08/13/18 at 20:00 Duloxetine HCl (Cymbalta) 60 mg DAILY PO Last administered on 09/14/18at 08:43; Admin Dose 60 MG; Start 08/14/18 at 09:00 Alteplase, Recombinant (Cathflo (Activase)) 2 mg MAY REPEAT X1 PRN CATHETER IF CATHETER REMAINS OCCULUDED Last administered on 09/06/18at 11:28; Admin Dose 2 MG; Start 08/15/18 at 06:00 Zinc Sulfate (Zinc Sulfate) 220 mg DAILY PO Last administered on 09/14/18at 08:43; Admin Dose 220 MG; Start 08/17/18 at 09:00 Eye Lubricant (Artificial Tears Oph) 1 drop Q6H PRN BOTH EYES DRY EYES Last administered on 08/19/18at 00:00; Admin Dose 1 DROP; Start 08/16/18 at 23:30 Miscellaneous Information 1 ea NOTE XX ; Start 08/17/18 at 10:30 Glucose (Glutose) 15 gm Q15M PRN PO DECREASED GLUCOSE; Start 08/17/18 at 10:30 Glucose (Glutose) 22.5 gm Q15M PRN PO DECREASED GLUCOSE; Start 08/17/18 at 10:30 Dextrose (D50w Syringe) 25 ml Q15M PRN IV DECREASED GLUCOSE; Start 08/17/18 at 10:30 Dextrose (D50w Syringe) 50 ml Q15M PRN IV DECREASED GLUCOSE; Start 08/17/18 at 10:30 Glucagon (Glucagen) 1 mg Q15M PRN IM DECREASED GLUCOSE; Start 08/17/18 at 10:30 Glucose (Glutose) 15 gm Q15M PRN BUCCAL DECREASED GLUCOSE; Start 08/17/18 at 10:30 Zolpidem Tartrate (Ambien) 10 mg QHS PRN PO INSOMNIA Last administered on 09/13/18at 20:54; Admin Dose 10 MG; Start 08/20/18 at 11:30 Phenol (Cepastat Lozenge) 1 lozenge Q1H PRN MT THROAT PAIN Last administered on 09/13/18at 09:08; Admin Dose 1 LOZENGE; Start 08/21/18 at 11:00 Acetaminophen (Tylenol Tab) 500 mg Q6H PRN PO MILD PAIN(1-3)OR ELEVATED TEMP; Start 09/01/18 at 18:30 Lidocaine (Xylocaine (Viscous)) 15 ml QID PRN PO Pain in the mouth; Start 09/02/18 at 10:30 Daptomycin 500 mg/ Sodium Chloride 100 ml @ 200 mls/hr Q24H IVPB Last administered on 09/13/18at 15:52; Admin Dose 200 MLS/HR; Start 09/03/18 at 16:00 Levofloxacin/ Dextrose 100 ml @ 100 mls/hr Q24H IVPB Last administered on 09/13/18 16:32; Admin Dose 100 MLS/HR; Start 09/05/18 at 16:30; Stop 09/19/18 at 16:29 Trazodone HCl (Desyrel) 50 mg BID PO Last administered on 09/14/18 08:43; Admin Dose 50 MG; Start 09/08/18 at 12:30 Lactobacillus Acidophilus/ Rhamnosus (Culturelle) 1 cap BID PO Last administered on 09/14/18 08:43; Admin Dose 1 CAP; Start 09/08/18 at 12:00 Promethazine HCl/ Codeine (Phenergan/ Codeine) 10 ml Q4H PRN PO COUGH; Start 09/09/18 at 17:30 Oxymetazoline HCl (Afrin [place]) 2 spray BID NASAL Last administered on 09/13/18 09:07; Admin Dose 2 SPRAY; Start 09/09/18 at 21:00 Cholecalciferol (Vitamin D) 2,000 unit DAILY PO Last administered on 09/14/18 08:43; Admin Dose 2,000 UNIT; Start 09/13/18 at 09:00 Diphenhydramine HCl (Benadryl) 50 mg Q4 PRN IV ITCHING Last administered on 09/14/18 04:47; Admin Dose 50 MG; Start 09/10/18 at 13:00 Levothyroxine Sodium (Synthroid) 50 mcg BEFORE BREAKFAST PO Last administered on 09/14/18 06:27; Admin Dose 50 MCG; Start 09/13/18 at 07:00 Lorazepam (Ativan) 2 mg Q6 PRN IV Anxiety Last administered on 09/14/18 06:27; Admin Dose 2 MG; Start 09/10/18 at 13:00 Methadone HCl (Methadone Liq) 1 mg TID PO Last administered on 09/14/18 08:44; Admin Dose 1 MG; Start 09/11/18 at 21:00 Hydromorphone HCl (Dilaudid) 1 mg Q4H PRN IV SEVERE PAIN LEVEL 7-10 Last administered on 09/14/18 06:48; Admin Dose 1 MG; Start 09/11/18 at 22:00 Pantoprazole (Protonix Tab) 40 mg DAILY@06 PO Last administered on 2/19/19at 06:27; Admin Dose 40 MG; Start 09/13/18 at 06:00 LAST GARNER NP Sep 14, 2018 11:09
[2018-09-14 14:33] VITALS: BP 155/76; PULSE 98; RESP 16
--- NOTE | 2018-09-14 14:48 | CONS ---
Consult Date/Type/Reason Admit Date/Time Aug 13, 2018 at 17:22 Initial Consult Date 08/19/18 Type of Consult Pulmonary Requesting Provider: SHAQUILLE HARRIS Date/Time of Note DATE: 09/14/18 TIME: 14:46 Subjective Still having intermittent hemoptysis. Currently hemodynamically stable Objective Vital Signs Date Temp Pulse Resp B/P (MAP) Pulse Ox O2 O2 Flow FiO2 Time Delivery Rate 09/14/18 98.8 98 16 155/76 97 Room Air 14:33 (102) Intake and Output 09/13/18 09/13/18 09/14/18 1515:00 23:00 07:00 IntakeIntake Total 480 ml 400 ml 480 ml OutputOutput Total 30 ml BalanceBalance 480 ml 370 ml 480 ml Exam GENERAL: Well nourished well-developed lady VITAL SIGNS: per chart NECK: Supple. No JVD or lymphadenopathy. CARDIAC EXAM: S1, S2. No added sounds or murmurs. CHEST: clear bilaterally, No added sounds, rales or wheezes ABDOMEN: Soft, nontender. No guarding or rebound. EXTREMITIES: No cyanosis, clubbing or edema. NEUROLOGIC: Generalized weakness. No focal deficits. Vent Setting Fraction of Inspired Oxygen pe: 21 Results/Medications Result Diagram: 09/14/18 0811 09/13/18 0609 Results 24 hrs Laboratory Tests Test 09/13/18 20:42 09/14/18 08:11 Hemoglobin 8.5 L 8.3 L Hematocrit 26.8 L 26.2 L Medications Current Medications IV Flush (NS 3 ml) 3 ml PER PROTOCOL IV ; Start 08/13/18 at 20:00 Ondansetron HCl (Zofran Inj) 4 mg Q6H PRN IV NAUSEA AND/OR VOMITING Last administered on 09/13/18at 00:30; Admin Dose 4 MG; Start 08/13/18 at 20:00 Duloxetine HCl (Cymbalta) 60 mg DAILY PO Last administered on 09/14/18at 08:43; Admin Dose 60 MG; Start 08/14/18 at 09:00 Alteplase, Recombinant (Cathflo (Activase)) 2 mg MAY REPEAT X1 PRN CATHETER IF CATHETER REMAINS OCCULUDED Last administered on 09/06/18at 11:28; Admin Dose 2 MG; Start 08/15/18 at 06:00 Zinc Sulfate (Zinc Sulfate) 220 mg DAILY PO Last administered on 09/14/18at 08:43; Admin Dose 220 MG; Start 08/17/18 at 09:00 Eye Lubricant (Artificial Tears Oph) 1 drop Q6H PRN BOTH EYES DRY EYES Last administered on 08/19/18at 00:00; Admin Dose 1 DROP; Start 08/16/18 at 23:30 Miscellaneous Information 1 ea NOTE XX ; Start 08/17/18 at 10:30 Glucose (Glutose) 15 gm Q15M PRN PO DECREASED GLUCOSE; Start 08/17/18 at 10:30 Glucose (Glutose) 22.5 gm Q15M PRN PO DECREASED GLUCOSE; Start 08/17/18 at 10:30 Dextrose (D50w Syringe) 25 ml Q15M PRN IV DECREASED GLUCOSE; Start 08/17/18 at 10:30 Dextrose (D50w Syringe) 50 ml Q15M PRN IV DECREASED GLUCOSE; Start 08/17/18 at 10:30 Glucagon (Glucagen) 1 mg Q15M PRN IM DECREASED GLUCOSE; Start 08/17/18 at 10:30 Glucose (Glutose) 15 gm Q15M PRN BUCCAL DECREASED GLUCOSE; Start 08/17/18 at 10:30 Zolpidem Tartrate (Ambien) 10 mg QHS PRN PO INSOMNIA Last administered on 09/13/18at 20:54; Admin Dose 10 MG; Start 08/20/18 at 11:30 Phenol (Cepastat Lozenge) 1 lozenge Q1H PRN MT THROAT PAIN Last administered on 09/13/18at 09:08; Admin Dose 1 LOZENGE; Start 08/21/18 at 11:00 Acetaminophen (Tylenol Tab) 500 mg Q6H PRN PO MILD PAIN(1-3)OR ELEVATED TEMP; Start 09/01/18 at 18:30 Lidocaine (Xylocaine (Viscous)) 15 ml QID PRN PO Pain in the mouth; Start 09/02/18 at 10:30 Daptomycin 500 mg/ Sodium Chloride 100 ml @ 200 mls/hr Q24H IVPB Last administered on 09/13/18at 15:52; Admin Dose 200 MLS/HR; Start 09/03/18 at 16:00 Levofloxacin/ Dextrose 100 ml @ 100 mls/hr Q24H IVPB Last administered on 09/13/18 16:32; Admin Dose 100 MLS/HR; Start 09/05/18 at 16:30; Stop 09/19/18 at 16:29 Trazodone HCl (Desyrel) 50 mg BID PO Last administered on 09/14/18 08:43; Admin Dose 50 MG; Start 09/08/18 at 12:30 Lactobacillus Acidophilus/ Rhamnosus (Culturelle) 1 cap BID PO Last administered on 09/14/18 08:43; Admin Dose 1 CAP; Start 09/08/18 at 12:00 Promethazine HCl/ Codeine (Phenergan/ Codeine) 10 ml Q4H PRN PO COUGH; Start 09/09/18 at 17:30 Oxymetazoline HCl (Afrin [place]) 2 spray BID NASAL Last administered on 09/13/18 09:07; Admin Dose 2 SPRAY; Start 09/09/18 at 21:00 Cholecalciferol (Vitamin D) 2,000 unit DAILY PO Last administered on 09/14/18 08:43; Admin Dose 2,000 UNIT; Start 09/13/18 at 09:00 Diphenhydramine HCl (Benadryl) 50 mg Q4 PRN IV ITCHING Last administered on 09/14/18 11:07; Admin Dose 50 MG; Start 09/10/18 at 13:00 Levothyroxine Sodium (Synthroid) 50 mcg BEFORE BREAKFAST PO Last administered on 09/14/18 06:27; Admin Dose 50 MCG; Start 09/13/18 at 07:00 Lorazepam (Ativan) 2 mg Q6 PRN IV Anxiety Last administered on 09/14/18 12:51; Admin Dose 2 MG; Start 09/10/18 at 13:00 Methadone HCl (Methadone Liq) 1 mg TID PO Last administered on 09/14/18 12:46; Admin Dose 1 MG; Start 09/11/18 at 21:00 Hydromorphone HCl (Dilaudid) 1 mg Q4H PRN IV SEVERE PAIN LEVEL 7-10 Last admin istered on 09/14/18 11:06; Admin Dose 1 MG; Start 09/11/18 at 22:00 Pantoprazole (Protonix Tab) 40 mg DAILY@06 PO Last administered on 2/19/19at 06:27; Admin Dose 40 MG; Start 09/13/18 at 06:00 Assessment/Plan Hospital Course (Demo Recall) Assessment 1. History of recurrent hemoptysis unremarkable chest CT source unclear 2- prior bronchoscopies. Possible AVM 2. History of thyroid cancer 3. Apparent history of lymphoma in the past. Plan 1. Cardiac echo with bubble study to evaluate for intrapulmonary shunt. Agree with transfer to tertiary care center for possible pulmonary angiogram and sclerotherapy. 2. Monitor H&H 3. Antidepressants Pending transfer to [facility]. MARGE GUZMAN MD, [facility] Sep 14, 2018 14:48
[2018-09-14] MEDS: DAPTOMYCIN 500 MG in SOD CHLORIDE 0.9% 100 ML IVPB SCH (15:20)
--- NOTE | 2018-09-14 16:30 | DS ---
Date/Time of Note Date/Time of Note Discharge Summary Admission/Discharge Info Admit Date/Time Discharge Date/Time Home Meds Reported Medications Zolpidem Tartrate* (Ambien*) 5 Mg Tablet, 5 MG PO QHS PRN for INSOMNIA, #30 TAB 08/13/18 Cholecalciferol* (Vitamin D3*) 1,000 Unit Tablet, 1000 UNIT PO DAILY, TAB 08/13/18 Cholecalciferol* (Vitamin D3*) 1,000 Unit Tablet, 2000 UNIT PO DAILY, TAB 08/13/18 Potassium Chloride* (Potassium Chloride*) 20 Meq Tablet.er, 20 MEQ PO DAILY, TAB.SA 08/13/18 Duloxetine Hcl* (Cymbalta*) 60 Mg Capsule.dr, 60 MG PO DAILY, CAP 08/13/18 Oxycodone Hcl* (Oxycontin*) 15 Mg Tab.sr.12h, 15 MG PO Q12, TAB 08/13/18 Hydromorphone Hcl* (Dilaudid*) 8 Mg Tablet, 8 MG PO Q6H PRN for PAIN, TAB 08/13/18 Pantoprazole* (Protonix*) 40 Mg Tablet.dr, 40 MG PO AC BREAKFAST, TAB 08/13/18 Levothyroxine Sodium* (Levothyroxine Sodium*) 25 Mcg Tablet, 25 MCG PO BEFORE BREAKFAST, #30 TAB 08/13/18 Pending Labs SUZANNE STEVENSON NP Sep 14, 2018 16:30
[2018-09-14] MEDS: LEVOFLOXACIN 500MG/D5W (PMX) 100 ML IVPB SCH (16:46)
[2018-09-14] MEDS: CEPASTAT LOZENGE MT PRN (18:50)
[2018-09-14 20:00] VITALS: BP 107/71; PULSE 101; RESP 19
[2018-09-14] MEDS: ZOLPIDEM 5 MG TAB PO PRN (22:33)
[2018-09-15 02:00] VITALS: BP 115/77; PULSE 77; RESP 19
[2018-09-15] MEDS: HYDROmorphONE 1 MG/ML SYG IV PRN ×6 (03:32→22:41)
[2018-09-15] MEDS: DIPHENHYDRAMINE 50 MG INJ IV PRN ×6 (03:32→22:41)
--- NOTE | 2018-09-15 05:39 | PN ---
Date/Time of Note Date/Time of Note DATE: 09/15/18 TIME: 05:39 Assessment/Plan VTE Prophylaxis Risk score (from Ns)>0 risk: 6 SCD applied (from [facility]): No SCD contraindicated: other Pharmacological prophylaxis: NA/contraindicated Pharm contraindication: bleeding Lines/Catheters IV C[facility]ter Type (from [facility]): PICC Line Central line still needed: Yes Urinary Cath still in place: No Assessment/Plan Hospital Course SUBJECTIVE: Denies any abdominal pain or diarrhea. Reports hemoptysis although decreased. OBJECTIVE: Physical Exam General: Adequately build 52 year-old female lying in bed in no apparent distress. HEENT: Normocephalic, atraumatic. Eyes: Anicteric sclerae, conjunctivae clear. ENT: Nasal septum midline, oral mucosa moist. Ulcer in the frenulum linguae. Neck supple, no JVD noticed. Respiratory: Bilaterally clear breath sounds. No use of accessory muscles of respiration. No adventitious breath sounds. Cardiovascular: S1, S2 heard. No murmurs or gallops. Abdomen: Soft, nondistended, nontender. Bowel sounds positive in all 4 quadrants. Genitourinary: Deferred. Extremities: No cyanosis, no clubbing, no edema. Peripheral pulses palpable. Neurologic: Cranial nerves II through XII grossly intact. The patient is awake, alert, and oriented. Skin: Normal skin turgor. No skin rashes. 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 The patient's CT scan of the abdomen and pelvis was showing colitis involving the ascending, transverse, descending colon. The patient also had underlying leukocytosis and bandemia. Therefore, the patient was admitted to inpatient setting for further treatment and evaluati on. 1. Acute pancolitis. -Stool studies showing Giardia. S/P Flagyl (last day 08/21/2018) -Being followed by gastroenterology and ID. -Colonoscopy on 08/17/2018 showed patchy colitis. 2. Fevers with coagulase-negative Staphylococcus bacteremia on 09/01/2018. - Stenotrophomonas maltophilia bacteremia on 09/03/2018. -The patient is allergic to vancomycin. -Started the patient on daptomycin on 09/02/2018. -Start the patient on cefepime on 09/03/2018. -2D echocardiogram negative for any cardiac vegetation. 3. 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 -No evidence or documented history of Hodgkin's lymphoma as per oncology. 4. History of PE. -Status post IVC filter placement. 5. Anemia. -Microcytic and hypochromic. -Monitor H&H closely. -Stool for OB x1 positive. 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 6. Chronic pain syndrome. -Pain management as per pain team. 7. Hyperglycemia. -Etiology unclear. -Hemoglobin A1c within normal limits although this could be the glycosylated hemoglobin from the transfused (donor) blood. -The patient was told by her primary care provider previously that she is borderline diabetic. -Started the patient on sliding scale insulin on 08/17/2018. -Stopped the patients insulin SSI on 08/21/2018 once the hyperglycemia was resolved. 8. Hemoptysis on 08/18/2018. -Being followed by Pulmonology. -S/P bronchoscopy on 08/24/2018 that was unremarkable. -S/P esophagogastroduodenoscopyX2 that showed no evidence of any gastrointestinal bleed. -Status post ENT evaluation along with laryngoscopy on 09/01/2018 with no evidence of any bleeding site history of hemoptysis. 9. Ulcer of the frenulum linguae. -Continue management as per ID. 10. Fluids, electrolytes, and nutrition. -Soft diet. 11. DVT prophylaxis -Bilateral SCDs. 12. Plan. -Continue pain control. -Continue antimicrobials. -Await clinical improvement. -Awaiting to be transferred to a tertiary care facility for further evaluation of hemoptysis that is unexplained. The patient was seen in collaboration with Dr. Prabhakar. Result Diagram: 09/14/18212309/13/18 0609 Results 24hrs Laboratory Tests Test 09/14/18 08:11 09/14/18 21:24 Hemoglobin 8.3 L 8.2 L Hematocrit 26.2 L 25.7 L Exam/Review of Systems Exam Vitals Vital Signs Date Temp Pulse Resp B/P (MAP) Pulse Ox O2 O2 Flow FiO2 Time Delivery Rate 09/15/18 98.9 77 19 115/77 95 02:00 (90) 09/14/18 Room Air 14:33 Intake and Output 09/14/18 09/14/18 09/15/18 1414:59 22:59 06:59 IntakeIntake Total 800 ml OutputOutput Total 50 ml BalanceBalance 750 ml Results Results 24hrs Laboratory Tests Test 09/14/18 08:11 09/14/18 21:24 Hemoglobin 8.3 L 8.2 L Hematocrit 26.2 L 25.7 L Medications Medication Current Medications IV Flush (NS 3 ml) 3 ml PER PROTOCOL IV ; Start 08/13/18 at 20:00 Ondansetron HCl (Zofran Inj) 4 mg Q6H PRN IV NAUSEA AND/OR VOMITING Last admin istered on 09/13/18at 00:30; Admin Dose 4 MG; Start 08/13/18 at 20:00 Duloxetine HCl (Cymbalta) 60 mg DAILY PO Last administered on 09/14/18at 08:43; Admin Dose 60 MG; Start 08/14/18 at 09:00 Alteplase, Recombinant (Cathflo (Activase)) 2 mg MAY REPEAT X1 PRN CATHETER IF CATHETER REMAINS OCCULUDED Last administered on 09/06/18at 11:28; Admin Dose 2 MG; Start 08/15/18 at 06:00 Zinc Sulfate (Zinc Sulfate) 220 mg DAILY PO Last administered on 09/14/18at 08:43; Admin Dose 220 MG; Start 08/17/18 at 09:00 Eye Lubricant (Artificial Tears Oph) 1 drop Q6H PRN BOTH EYES DRY EYES Last administered on 08/19/18at 00:00; Admin Dose 1 DROP; Start 08/16/18 at 23:30 Miscellaneous Information 1 ea NOTE XX ; Start 08/17/18 at 10:30 Glucose (Glutose) 15 gm Q15M PRN PO DECREASED GLUCOSE; Start 08/17/18 at 10:30 Glucose (Glutose) 22.5 gm Q15M PRN PO DECREASED GLUCOSE; Start 08/17/18 at 10:30 Dextrose (D50w Syringe) 25 ml Q15M PRN IV DECREASED GLUCOSE; Start 08/17/18 at 10:30 Dextrose (D50w Syringe) 50 ml Q15M PRN IV DECREASED GLUCOSE; Start 08/17/18 at 10:30 Glucagon (Glucagen) 1 mg Q15M PRN IM DECREASED GLUCOSE; Start 08/17/18 at 10:30 Glucose (Glutose) 15 gm Q15M PRN BUCCAL DECREASED GLUCOSE; Start 08/17/18 at 10:30 Zolpidem Tartrate (Ambien) 10 mg QHS PRN PO INSOMNIA Last administered on 09/14/18at 22:33; Admin Dose 10 MG; Start 08/20/18 at 11:30 Phenol (Cepastat Lozenge) 1 lozenge Q1H PRN MT THROAT PAIN Last administered on 09/14/18 18:50; Admin Dose 1 LOZENGE; Start 08/21/18 at 11:00 Acetaminophen (Tylenol Tab) 500 mg Q6H PRN PO MILD PAIN(1-3)OR ELEVATED TEMP; Start 09/01/18 at 18:30 Lidocaine (Xylocaine (Viscous)) 15 ml QID PRN PO Pain in the mouth; Start 09/02/18 at 10:30 Daptomycin 500 mg/ Sodium Chloride 100 ml @ 200 mls/hr Q24H IVPB Last administered on 09/14/18at 15:20; Admin Dose 200 MLS/HR; Start 09/03/18 at 16:00 Levofloxacin/ Dextrose 100 ml @ 100 mls/hr Q24H IVPB Last administered on 09/14/18at 16:46; Admin Dose 100 MLS/HR; Start 09/05/18 at 16:30; Stop 09/19/18 at 16:29 Trazodone HCl (Desyrel) 50 mg BID PO Last administered on 09/14/18at 20:42; Admin Dose 50 MG; Start 09/08/18 at 12:30 Lactobacillus Acidophilus/ Rhamnosus (Culturelle) 1 cap BID PO Last adminis tered on 09/14/18at 20:42; Admin Dose 1 CAP; Start 09/08/18 at 12:00 Promethazine HCl/ Codeine (Phenergan/ Codeine) 10 ml Q4H PRN PO COUGH; Start 09/09/18 at 17:30 Oxymetazoline HCl (Afrin [place]) 2 spray BID NASAL Last administered on 09/13/18at 09:07; Admin Dose 2 SPRAY; Start 09/09/18 at 21:00 Cholecalciferol (Vitamin D) 2,000 unit DAILY PO Last administered on 09/14/18 08:43; Admin Dose 2,000 UNIT; Start 09/13/18 at 09:00 Diphenhydramine HCl (Benadryl) 50 mg Q4 PRN IV ITCHING Last administered on 09/15/18 03:32; Admin Dose 50 MG; Start 09/10/18 at 13:00 Levothyroxine Sodium (Synthroid) 50 mcg BEFORE BREAKFAST PO Last administered on 09/14/18 06:27; Admin Dose 50 MCG; Start 09/13/18 at 07:00 Lorazepam (Ativan) 2 mg Q6 PRN IV Anxiety Last administered on 09/14/18 21:29; Admin Dose 2 MG; Start 09/10/18 at 13:00 Methadone HCl (Methadone Liq) 1 mg TID PO Last administered on 09/14/18 20:42; Admin Dose 1 MG; Start 09/11/18 at 21:00 Hydromorphone HCl (Dilaudid) 1 mg Q4H PRN IV SEVERE PAIN LEVEL 7-10 Last administered on 09/15/18 03:32; Admin Dose 1 MG; Start 09/11/18 at 22:00 Pantoprazole (Protonix Tab) 40 mg DAILY@06 PO Last administered on 09/14/18 06:27; Admin Dose 40 MG; Start 09/13/18 at 06:00 SUZANNE STEVENSON NP Sep 15, 2018 05:39
[2018-09-15] MEDS: LEVOTHYROXINE 50 MCG TAB PO SCH (06:29)
[2018-09-15] MEDS: PANTOPRAZOLE (EC) 40 MG TAB PO SCH (06:29)
[2018-09-15] MEDS: LORAZEPAM 2 MG INJ IV PRN ×3 (06:42→17:48)
[2018-09-15 07:57] VITALS: BP 123/69; PULSE 86; RESP 18
[2018-09-15] MEDS: METHADONE (1 MG/ML 5 ML PO UD SYG) PO SCH ×3 (08:31→20:58)
[2018-09-15] MEDS: traZODone 50 MG TAB PO SCH ×2 (08:32→20:58)
[2018-09-15] MEDS: OXYMETAZOLINE 0.05% 15 ML NAS SPRAY NASAL SCH ×2 (08:32→20:58)
[2018-09-15] MEDS: ZINC SULFATE 220 MG CAP PO SCH (08:32)
[2018-09-15] MEDS: CHOLECALCIFEROL 2,000 UNIT CAP PO SCH (08:32)
[2018-09-15] MEDS: LACTOBACILLUS RHAMNOSUS CAP PO SCH ×2 (08:32→20:58)
[2018-09-15] MEDS: CEPASTAT LOZENGE MT PRN (11:59)
--- NOTE | 2018-09-15 13:28 | CONS ---
Assessment/Plan Assessment/Plan Hospital Course (Demo Recall) sepsis, endovascular infection - s/p sepsis d/t bacteremia - fever and tachycardia resolved - bacteremia d/t Coag Neg Staph and Stenotrophomonas maltophilia on 09/01/2018 and 09/02/2018; repeat blood cultures 09/04/18 negative - h/o "bacteremia due to enterococci" according to progress notes at [facility], but the actual microbiology report indicated blood culture was positive for ESBL+E. coli - h/o fungemia due to kaley glabrata, sensitive to fluconazole and to micafungin/caspofungin at [facility] - TTE done 09/04/18 showed no mention of valvular vegetations; EF 55-60% pulm - persistent hemoptysis of unknown etiology: Pt reports negative PPD last month at [facility]. - according to the microbiology report at [facility], Pt had ESBL+E. coli in her respiratory culture. Sputum cultures for AFB and fungi were negative at 8 weeks and at 4 weeks respectively at [facility] - Pt had negative bronchoscopy in 05/2018 at [facility], another at [facility] in 2017, and on 08/25/2018 at [facility] (no e/o bronchial airway bleeding according to Dr. Bello - Numerous tiny lung nodules, increased in number from the chest CT dated May 22, 2018, with largest measuring 0.3 cm in the left apex-->follow up CT on 09/10/2018 indicated: stable bilateral micronodules dating back to examination of at least 01/29/2017; RLL fibrosis. - Kaley albicans in sputum cx on 08/28/2018 - likely colonizer - so far: aspergillus antibody not detected, HIV negative, coccidioidomycosis serology negative, TB Quant Gold negative, 1,3 beta d glucan negative, procalc 09/01/18 was 0.30; Sputum for O&P was prelim negative and growing nl resp zay GI - Delgado-colitis per CT 08/13/18 - S/p diarrhea on 09/06/18 - s/p EGD on 09/10/2018: no GI bleeding noted, reportedly completely normal - S/p sigmoidoscopy with biopsy 08/17/2018; path showed no e/o colitis or malignancy from transverse colon and rectum biopsies - S/p bloody diarrhea d/t Giardia; Pt took metronidazole for Giardia (08/14/2018- 08/21/2018) in 07/2018. - H/o C diff toxin negative PCR positive status at [facility]. Took a course of Fidaxomyxin x 10 days. C. diff was negative on 08/14/2018 at [facility] - H/o cholecystectomy - Stool for O&P was negative 09/12/18 heme/oncology - S/p CT guided bone marrow aspiration and biopsy 08/20/2018 - Microcytic anemia requiring PRBC d/t acute blood loss - Electrophoresis 08/19/18 showed: Evaluation suggests beta thalassemia trait with anemia. Iron deficiency must be ruled out. - H/o BUE and RLE DVT, s/p IVC filter in January 2018 - H/o Hodgkin lymphoma diagnosed in 2006 - H/o thyroid CA diagnosed in 2005, s/p resection, chemo and XRT - IVC filter placement - Patient reports that approximately 2 years ago (2016?) she had an abnormal mammogram of Left breast and that she was scheduled for a biopsy approximately 4 months ago but d/t insurance change did not receive the biopsy, on 09/13/18 giselle ent reported brown drainage from left nipple x2 nights - +Family hx of cancer (father of stomach CA, mother of lymphoma, paternal uncle had breast CA and 12 yo daughter has h/o brain tumor s/p surgery and resulting blindness) , renal - h/o UTI due to ESBL+E. coli - S/p PO levofloxacin (08/24/2018-08/28/2018) for probable UTI other conditions - s/p a painful ulcer at frenulum, resolving. According to Pt, topical steroid would worsen the pain. HIV negative, RPR non reactive, herpes 1 and 2 by PCR not detected; s/p trial of PO valacyclovir (08/27/2018-09/01/2018) - s/p bilateral conjunctivitis - improved s/p Cipro eye drops (08/18/18-08/23/18) - Hypothyroidism - HLD - S/p hypokalemia - OA - depression/anxiety - H/o x2 - Allergy to PCN and vancomycin (reaction unknown) Recommendations: - Continue daptomycin (clarify allergy to vanco; 09/02/2018-) and levofloxacin (08/25/18-08/27/2018; restart 09/05/2018-) to complete 14 days from first negative blood culture; s/p Cefepime (09/03/18 - 09/05/18). Suggested end date of dapto through 09/17/2018 and Levaquin through 09/18/2018 - Weekly CK level (<20 on 09/03/2018, 39 on 09/10/2018) while on daptomycin - Consider breast exam and mammogram (pt reported brown drainage from nipple x2 nights [09/12/18 and 09/13/18], states had an abnormal mammogram 2 years ago and planned biopsy which was never done) Consultation Date/Type/Reason Admit Date/Time Aug 13, 2018 at 17:22 Initial Consult Date 08/19/18 Requesting Provider: SHAQUILLE HARRIS Date/Time of Note DATE: 09/15/18 TIME: 13:26 Exam/Review of Systems Exam Vitals Vital Signs Date Temp Pulse Resp B/P (MAP) Pulse Ox O2 O2 Flow FiO2 Time Delivery Rate 09/15/18 98.0 86 18 123/69 95 Room Air 07:57 (87) Intake and Output 09/14/18 09/14/18 09/15/18 1515:00 23:00 07:00 IntakeIntake Total 800 ml 800 ml OutputOutput Total 50 ml BalanceBalance 750 ml 800 ml Constitutional: alert, oriented, well developed Psych: no complaints, nl mood/affect Head: normocephalic, atraumatic Eyes: nl conjunctiva, EOMI, nl lids, nl sclera, PERRL ENMT: nl external ears & nose, nl lips & teeth, nl nasal mucosa & septum Respiratory: clear to auscultation, normal air movement Cardiovascular: regular rate and rhythm, nl pulses Gastrointestinal: soft, nl liver, spleen, non-tender Neurological: RESIN MAKER II-XII intact, nl mental status, nl speech, nl strength Results Result Diagram: 09/14/18212309/13/18 0609 Results 24hrs Laboratory Tests Test 09/14/18 21:24 Hemoglobin 8.2 L Hematocrit 25.7 L Medications Medication Current Medications IV Flush (NS 3 ml) 3 ml PER PROTOCOL IV ; Start 08/13/18 at 20:00 Ondansetron HCl (Zofran Inj) 4 mg Q6H PRN IV NAUSEA AND/OR VOMITING Last administered on 09/13/18at 00:30; Admin Dose 4 MG; Start 08/13/18 at 20:00 Alteplase, Recombinant (Cathflo (Activase)) 2 mg MAY REPEAT X1 PRN CATHETER IF CATHETER REMAINS OCCULUDED Last administered on 09/06/18at 11:28; Admin Dose 2 MG; Start 08/15/18 at 06:00 Zinc Sulfate (Zinc Sulfate) 220 mg DAILY PO Last administered on 09/15/18at 08:32; Admin Dose 220 MG; Start 08/17/18 at 09:00 Eye Lubricant (Artificial Tears Oph) 1 drop Q6H PRN BOTH EYES DRY EYES Last administered on 08/19/18at 00:00; Admin Dose 1 DROP; Start 08/16/18 at 23:30 Miscellaneous Information 1 ea NOTE XX ; Start 08/17/18 at 10:30 Glucose (Glutose) 15 gm Q15M PRN PO DECREASED GLUCOSE; Start 08/17/18 at 10:30 Glucose (Glutose) 22.5 gm Q15M PRN PO DECREASED GLUCOSE; Start 08/17/18 at 10:30 Dextrose (D50w Syringe) 25 ml Q15M PRN IV DECREASED GLUCOSE; Start 08/17/18 at 10:30 Dextrose (D50w Syringe) 50 ml Q15M PRN IV DECREASED GLUCOSE; Start 08/17/18 at 10:30 Glucagon (Glucagen) 1 mg Q15M PRN IM DECREASED GLUCOSE; Start 08/17/18 at 10:30 Glucose (Glutose) 15 gm Q15M PRN BUCCAL DECREASED GLUCOSE; Start 08/17/18 at 10:30 Zolpidem Tartrate (Ambien) 10 mg QHS PRN PO INSOMNIA Last administered on 09/14/18at 22:33; Admin Dose 10 MG; Start 08/20/18 at 11:30 Phenol (Cepastat Lozenge) 1 lozenge Q1H PRN MT THROAT PAIN Last administered on 09/15/18at 11:59; Admin Dose 1 LOZENGE; Start 08/21/18 at 11:00 Acetaminophen (Tylenol Tab) 500 mg Q6H PRN PO MILD PAIN(1-3)OR ELEVATED TEMP; Start 09/01/18 at 18:30 Lidocaine (Xylocaine (Viscous)) 15 ml QID PRN PO Pain in the mouth; Start 09/02/18 at 10:30 Daptomycin 500 mg/ Sodium Chloride 100 ml @ 200 mls/hr Q24H IVPB Last administered on 09/14/18 15:20; Admin Dose 200 MLS/HR; Start 09/03/18 at 16:00 Levofloxacin/ Dextrose 100 ml @ 100 mls/hr Q24H IVPB Last administered on 09/14/18 16:46; Admin Dose 100 MLS/HR; Start 09/05/18 at 16:30; Stop 09/19/18 at 16:29 Trazodone HCl (Desyrel) 50 mg BID PO Last administered on 09/15/18 08:32; Admin Dose 50 MG; Start 09/08/18 at 12:30 Lactobacillus Acidophilus/ Rhamnosus (Culturelle) 1 cap BID PO Last administered on 09/15/18 08:32; Admin Dose 1 CAP; Start 09/08/18 at 12:00 Promethazine HCl/ Codeine (Phenergan/ Codeine) 10 ml Q4H PRN PO COUGH; Start 09/09/18 at 17:30 Oxymetazoline HCl (Afrin [place]) 2 spray BID NASAL Last administered on 09/13/18 09:07; Admin Dose 2 SPRAY; Start 09/09/18 at 21:00 Cholecalciferol (Vitamin D) 2,000 unit DAILY PO Last administered on 09/15/18 08:32; Admin Dose 2,000 UNIT; Start 09/13/18 at 09:00 Diphenhydramine HCl (Benadryl) 50 mg Q4 PRN IV ITCHING Last administered on 09/15/18 11:56; Admin Dose 50 MG; Start 09/10/18 at 13:00 Levothyroxine Sodium (Synthroid) 50 mcg BEFORE BREAKFAST PO Last administered on 09/15/18 06:29; Admin Dose 50 MCG; Start 09/13/18 at 07:00 Lorazepam (Ativan) 2 mg Q6 PRN IV Anxiety Last administered on 09/15/18 12:07; Admin Dose 2 MG; Start 09/10/18 at 13:00 Methadone HCl (Methadone Liq) 1 mg TID PO Last administered on 2/20/19at 12:14; Admin Dose 1 MG; Start 09/11/18 at 21:00 Hydromorphone HCl (Dilaudid) 1 mg Q4H PRN IV SEVERE PAIN LEVEL 7-10 Last administered on 09/15/18at 11:55; Admin Dose 1 MG; Start 09/11/18 at 22:00 Pantoprazole (Protonix Tab) 40 mg DAILY@06 PO Last administered on 09/15/18at 06:29; Admin Dose 40 MG; Start 09/13/18 at 06:00 AUREA MEDINA MD Sep 15, 2018 13:28
[2018-09-15 13:58] VITALS: BP 112/61; PULSE 89; RESP 16
--- NOTE | 2018-09-15 14:33 | CONS ---
Consult Date/Type/Reason Admit Date/Time Aug 13, 2018 at 17:22 Initial Consult Date 08/19/18 Type of Consult Pulmonary Requesting Provider: SHAQUILLE HARRIS Date/Time of Note DATE: 09/15/18 TIME: 14:32 Subjective Patient stable. No new events pending transfer Objective Vital Signs Date Temp Pulse Resp B/P (MAP) Pulse Ox O2 O2 Flow FiO2 Time Delivery Rate 09/15/18 98.0 89 16 112/61 97 Room Air 13:58 (78) Intake and Output 09/14/18 09/14/18 09/15/18 1515:00 23:00 07:00 IntakeIntake Total 800 ml 800 ml OutputOutput Total 50 ml BalanceBalance 750 ml 800 ml Exam GENERAL: Well-nourished well-developed lady comfortable at rest no acute distress VITAL SIGNS: per chart NECK: Supple. No JVD or lymphadenopathy. CARDIAC EXAM: S1, S2. No added sounds or murmurs. CHEST: clear bilaterally, No added sounds, rales or wheezes ABDOMEN: Soft, nontender. No guarding or rebound. EXTREMITIES: No cyanosis, clubbing or edema. NEUROLOGIC: Generalized weakness. No focal deficits. Vent Setting Fraction of Inspired Oxygen pe: 21 Results/Medications Result Diagram: 09/14/18 2124 09/13/18 0609 Results 24 hrs Laboratory Tests Test 09/14/18 21:24 Hemoglobin 8.2 L Hematocrit 25.7 L Medications Current Medications IV Flush (NS 3 ml) 3 ml PER PROTOCOL IV ; Start 08/13/18 at 20:00 Ondansetron HCl (Zofran Inj) 4 mg Q6H PRN IV NAUSEA AND/OR VOMITING Last administered on 09/13/18at 00:30; Admin Dose 4 MG; Start 08/13/18 at 20:00 Alteplase, Recombinant (Cathflo (Activase)) 2 mg MAY REPEAT X1 PRN CATHETER IF CATHETER REMAINS OCCULUDED Last administered on 09/06/18at 11:28; Admin Dose 2 MG; Start 08/15/18 at 06:00 Zinc Sulfate (Zinc Sulfate) 220 mg DAILY PO Last administered on 09/15/18at 08:32; Admin Dose 220 MG; Start 08/17/18 at 09:00 Eye Lubricant (Artificial Tears Oph) 1 drop Q6H PRN BOTH EYES DRY EYES Last administered on 08/19/18at 00:00; Admin Dose 1 DROP; Start 08/16/18 at 23:30 Miscellaneous Information 1 ea NOTE XX ; Start 08/17/18 at 10:30 Glucose (Glutose) 15 gm Q15M PRN PO DECREASED GLUCOSE; Start 08/17/18 at 10:30 Glucose (Glutose) 22.5 gm Q15M PRN PO DECREASED GLUCOSE; Start 08/17/18 at 10:30 Dextrose (D50w Syringe) 25 ml Q15M PRN IV DECREASED GLUCOSE; Start 08/17/18 at 10:30 Dextrose (D50w Syringe) 50 ml Q15M PRN IV DECREASED GLUCOSE; Start 08/17/18 at 10:30 Glucagon (Glucagen) 1 mg Q15M PRN IM DECREASED GLUCOSE; Start 08/17/18 at 10:30 Glucose (Glutose) 15 gm Q15M PRN BUCCAL DECREASED GLUCOSE; Start 08/17/18 at 10:30 Zolpidem Tartrate (Ambien) 10 mg QHS PRN PO INSOMNIA Last administered on 09/14/18at 22:33; Admin Dose 10 MG; Start 08/20/18 at 11:30 Phenol (Cepastat Lozenge) 1 lozenge Q1H PRN MT THROAT PAIN Last administered on 09/15/18at 11:59; Admin Dose 1 LOZENGE; Start 08/21/18 at 11:00 Acetaminophen (Tylenol Tab) 500 mg Q6H PRN PO MILD PAIN(1-3)OR ELEVATED TEMP; Start 09/01/18 at 18:30 Lidocaine (Xylocaine (Viscous)) 15 ml QID PRN PO Pain in the mouth; Start 09/02/18 at 10:30 Daptomycin 500 mg/ Sodium Chloride 100 ml @ 200 mls/hr Q24H IVPB Last administered on 09/14/18at 15:20; Admin Dose 200 MLS/HR; Start 09/03/18 at 16:00 Levofloxacin/ Dextrose 100 ml @ 100 mls/hr Q24H IVPB Last administered on 09/14/18at 16:46; Admin Dose 100 MLS/HR; Start 09/05/18 at 16:30; Stop 09/19/18 at 16:29 Trazodone HCl (Desyrel) 50 mg BID PO Last administered on 09/15/18 08:32; A dmin Dose 50 MG; Start 09/08/18 at 12:30 Lactobacillus Acidophilus/ Rhamnosus (Culturelle) 1 cap BID PO Last administered on 09/15/18 08:32; Admin Dose 1 CAP; Start 09/08/18 at 12:00 Promethazine HCl/ Codeine (Phenergan/ Codeine) 10 ml Q4H PRN PO COUGH; Start 09/09/18 at 17:30 Oxymetazoline HCl (Afrin [place]) 2 spray BID NASAL Last administered on 09/13/18 09:07; Admin Dose 2 SPRAY; Start 09/09/18 at 21:00 Cholecalciferol (Vitamin D) 2,000 unit DAILY PO Last administered on 09/15/18 08:32; Admin Dose 2,000 UNIT; Start 09/13/18 at 09:00 Diphenhydramine HCl (Benadryl) 50 mg Q4 PRN IV ITCHING Last administered on 09/15/18 11:56; Admin Dose 50 MG; Start 09/10/18 at 13:00 Levothyroxine Sodium (Synthroid) 50 mcg BEFORE BREAKFAST PO Last administered on 09/15/18 06:29; Admin Dose 50 MCG; Start 09/13/18 at 07:00 Lorazepam (Ativan) 2 mg Q6 PRN IV Anxiety Last administered on 09/15/18 12:07; Admin Dose 2 MG; Start 09/10/18 at 13:00 Methadone HCl (Methadone Liq) 1 mg TID PO Last administered on 09/15/18 12:14; Admin Dose 1 MG; Start 09/11/18 at 21:00 Hydromorphone HCl (Dilaudid) 1 mg Q4H PRN IV SEVERE PAIN LEVEL 7-10 Last administered on 09/15/18 11:55; Admin Dose 1 MG; Start 09/11/18 at 22:00 Pantoprazole (Protonix Tab) 40 mg DAILY@06 PO Last administered on 09/15/18 06:29; Admin Dose 40 MG; Start 09/13/18 at 06:00 Assessment/Plan Hospital Course (Demo Recall) Assessment 1. History of recurrent hemoptysis unremarkable chest CT source unclear 2- prior bronchoscopies. Possible AVM 2. History of thyroid cancer 3. Apparent history of lymphoma in the past. Plan 1. Cardiac echo with bubble study to evaluate for intrapulmonary shunt. Agree with transfer to tertiary care center for possible pulmonary angiogram and sclerotherapy. 2. Monitor H&H 3. Antidepressants Pending transfer to [facility]. Repeat chest x-ray. MARGE GUZMAN MD, [facility] Sep 15, 2018 14:33
[2018-09-15] MEDS: DAPTOMYCIN 500 MG in SOD CHLORIDE 0.9% 100 ML IVPB SCH (15:34)
[2018-09-15] MEDS: LEVOFLOXACIN 500MG/D5W (PMX) 100 ML IVPB SCH (16:19)
[2018-09-15 19:54] VITALS: BP 95/55; PULSE 86; RESP 22
[2018-09-15 20:51] VITALS: BP 125/65; PULSE 101; RESP 20
[2018-09-15] MEDS: ZOLPIDEM 5 MG TAB PO PRN (20:58)
[2018-09-16] MEDS: LORAZEPAM 2 MG INJ IV PRN ×3 (00:49→21:30)
[2018-09-16 01:42] VITALS: BP 101/60; PULSE 86; RESP 20
[2018-09-16] MEDS: DIPHENHYDRAMINE 50 MG INJ IV PRN ×6 (02:42→22:45)
[2018-09-16] MEDS: HYDROmorphONE 1 MG/ML SYG IV PRN ×6 (02:43→22:45)
[2018-09-16] MEDS: PANTOPRAZOLE (EC) 40 MG TAB PO SCH (06:43)
[2018-09-16] MEDS: LEVOTHYROXINE 50 MCG TAB PO SCH (06:43)
[2018-09-16 08:00] VITALS: BP 104/61; PULSE 83; RESP 18
[2018-09-16] MEDS: LACTOBACILLUS RHAMNOSUS CAP PO SCH ×2 (08:31→20:17)
[2018-09-16] MEDS: CHOLECALCIFEROL 2,000 UNIT CAP PO SCH (08:31)
[2018-09-16] MEDS: METHADONE (1 MG/ML 5 ML PO UD SYG) PO SCH ×3 (08:31→20:17)
[2018-09-16] MEDS: ZINC SULFATE 220 MG CAP PO SCH (08:31)
[2018-09-16] MEDS: traZODone 50 MG TAB PO SCH ×2 (08:31→20:17)
[2018-09-16] MEDS: OXYMETAZOLINE 0.05% 15 ML NAS SPRAY NASAL SCH ×2 (08:36→20:17)
[2018-09-16] MEDS: CEPASTAT LOZENGE MT PRN ×2 (10:45→13:28)
--- NOTE | 2018-09-16 11:03 | PN ---
Date/Time of Note Date/Time of Note DATE: 09/16/18 TIME: 11:02 Assessment/Plan VTE Prophylaxis Risk score (from Ns)>0 risk: 1 SCD applied (from Ns): No SCD contraindicated: other Pharmacological prophylaxis: NA/contraindicated Pharm contraindication: bleeding Lines/Catheters IV Catheter Type (from [facility]): PICC Line Central line still needed: Yes Urinary Cath still in place: No Assessment/Plan Hospital Course SUBJECTIVE: Denies any abdominal pain or diarrhea. Reports hemoptysis although decreased. OBJECTIVE: Physical Exam General: Adequately build 52 year-old female lying in bed in no apparent distress. HEENT: Normocephalic, atraumatic. Eyes: Anicteric sclerae, conjunctivae clear. ENT: Nasal septum midline, oral mucosa moist. Ulcer in the frenulum linguae. Neck supple, no JVD noticed. Respiratory: Bilaterally clear breath sounds. No use of accessory muscles of respiration. No adventitious breath sounds. Cardiovascular: S1, S2 heard. No murmurs or gallops. Abdomen: Soft, nondistended, nontender. Bowel sounds positive in all 4 quadrants. Genitourinary: Deferred. Extremities: No cyanosis, no clubbing, no edema. Peripheral pulses palpable. Neurologic: Cranial nerves II through XII grossly intact. The patient is awake, alert, and oriented. Skin: Normal skin turgor. No skin rashes. 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 The patient's CT scan of the abdomen and pelvis was showing colitis involving the ascending, transverse, descending colon. The patient also had underlying leukocytosis and bandemia. Therefore, the patient was admitted to inpatient setting for further treatment and evaluati on. 1. Acute pancolitis. -Stool studies showing Giardia. S/P Flagyl (last day 08/21/2018) -Being followed by gastroenterology and ID. -Colonoscopy on 08/17/2018 showed patchy colitis. 2. Fevers with coagulase-negative Staphylococcus bacteremia on 09/01/2018. - Stenotrophomonas maltophilia bacteremia on 09/03/2018. -The patient is allergic to vancomycin. -Started the patient on daptomycin on 09/02/2018. -Start the patient on cefepime on 09/03/2018. -2D echocardiogram negative for any cardiac vegetation. 3. 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 -No evidence or documented history of Hodgkin's lymphoma as per oncology. 4. History of PE. -Status post IVC filter placement. 5. Anemia. -Microcytic and hypochromic. -Monitor H&H closely. -Stool for OB x1 positive. 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 6. Chronic pain syndrome. -Pain management as per pain team. 7. Hyperglycemia. -Etiology unclear. -Hemoglobin A1c within normal limits although this could be the glycosylated hemoglobin from the transfused (donor) blood. -The patient was told by her primary care provider previously that she is borderline diabetic. -Started the patient on sliding scale insulin on 08/17/2018. -Stopped the patients insulin SSI on 08/21/2018 once the hyperglycemia was resolved. 8. Hemoptysis on 08/18/2018. -Being followed by Pulmonology. -S/P bronchoscopy on 08/24/2018 that was unremarkable. -S/P esophagogastroduodenoscopyX2 that showed no evidence of any gastrointestinal bleed. -Status post ENT evaluation along with laryngoscopy on 09/01/2018 with no evidence of any bleeding site history of hemoptysis. 9. Ulcer of the frenulum linguae. -Continue management as per ID. 10. Fluids, electrolytes, and nutrition. -Soft diet. 11. DVT prophylaxis -Bilateral SCDs. 12. Plan. -Continue pain control. -Continue antimicrobials. -Await clinical improvement. -Awaiting to be transferred to a tertiary care facility for further evaluation of hemoptysis that is unexplained. The patient was seen in collaboration with Dr. Prabhakar. Result Diagram: 09/16/18 0552 09/16/18 0552 Results 24hrs Laboratory Tests Test 09/16/18 05:52 White Blood Count 4.1 #L Red Blood Count 3.18 L Hemoglobin 7.8 L Hematocrit 25.2 L Mean Corpuscular Volume 79.2 L Mean Corpuscular Hemoglobin 24.5 L Mean Corpuscular Hemoglobin Concent 31.0 L Red Cell Distribution Width 18.2 H Platelet Count 210 Mean Platelet Volume 10.7 H Immature Granulocytes % 1.200 H Neutrophils % 46.8 Lymphocytes % 38.9 Monocytes % 8.5 Eosinophils % 3.6 Basophils % 1.0 Nucleated Red Blood Cells % 0.0 Immature Granulocytes # 0.050 H Neutrophils # 1.9 Lymphocytes # 1.6 Monocytes # 0.4 Eosinophils # 0.2 Basophils # 0.0 Nucleated Red Blood Cells # 0.0 Prothrombin Time 12.6 Prothrombin Time Ratio 1.0 INR International Normalized Ratio 0.93 Activated Partial Thromboplast Time 30.6 Thrombin Time 13.8 Sodium Level 141 Potassium Level 3.8 Chloride Level 103 Carbon Dioxide Level 29 Anion Gap 9 Blood Urea Nitrogen 17 Creatinine 0.59 Est Glomerular Filtrat Rate mL/min > 60 Glucose Level 89 Calcium Level 9.0 Phosphorus Level 5.8 H Magnesium Level 2.0 Exam/Review of Systems Exam Vitals Vital Signs Date Temp Pulse Resp B/P (MAP) Pulse Ox O2 O2 Flow FiO2 Time Delivery Rate 09/16/18 98.4 83 18 104/61 100 Room Air 08:00 (75) Intake and Output 09/15/18 09/15/18 09/16/18 1515:00 23:00 07:00 IntakeIntake Total 940 ml OutputOutput Total 50 ml BalanceBalance 940 ml -50 ml Results Results 24hrs Laboratory Tests Test 09/16/18 05:52 White Blood Count 4.1 #L Red Blood Count 3.18 L Hemoglobin 7.8 L Hematocrit 25.2 L Mean Corpuscular Volume 79.2 L Mean Corpuscular Hemoglobin 24.5 L Mean Corpuscular Hemoglobin Concent 31.0 L Red Cell Distribution Width 18.2 H Platelet Count 210 Mean Platelet Volume 10.7 H Immature Granulocytes % 1.200 H Neutrophils % 46.8 Lymphocytes % 38.9 Monocytes % 8.5 Eosinophils % 3.6 Basophils % 1.0 Nucleated Red Blood Cells % 0.0 Immature Granulocytes # 0.050 H Neutrophils # 1.9 Lymphocytes # 1.6 Monocytes # 0.4 Eosinophils # 0.2 Basophils # 0.0 Nucleated Red Blood Cells # 0.0 Prothrombin Time 12.6 Prothrombin Time Ratio 1.0 INR International Normalized Ratio 0.93 Activated Partial Thromboplast Time 30.6 Thrombin Time 13.8 Sodium Level 141 Potassium Level 3.8 Chloride Level 103 Carbon Dioxide Level 29 Anion Gap 9 Blood Urea Nitrogen 17 Creatinine 0.59 Est Glomerular Filtrat Rate mL/min > 60 Glucose Level 89 Calcium Level 9.0 Phosphorus Level 5.8 H Magnesium Level 2.0 Medications Medication Current Medications IV Flush (NS 3 ml) 3 ml PER PROTOCOL IV ; Start 08/13/18 at 20:00 Ondansetron HCl (Zofran Inj) 4 mg Q6H PRN IV NAUSEA AND/OR VOMITING Last ad ministered on 09/13/18at 00:30; Admin Dose 4 MG; Start 08/13/18 at 20:00 Zinc Sulfate (Zinc Sulfate) 220 mg DAILY PO Last administered on 09/16/18at 08:31; Admin Dose 220 MG; Start 08/17/18 at 09:00 Eye Lubricant (Artificial Tears Oph) 1 drop Q6H PRN BOTH EYES DRY EYES Last administered on 08/19/18at 00:00; Admin Dose 1 DROP; Start 08/16/18 at 23:30 Miscellaneous Information 1 ea NOTE XX ; Start 08/17/18 at 10:30 Glucose (Glutose) 15 gm Q15M PRN PO DECREASED GLUCOSE; Start 08/17/18 at 10:30 Glucose (Glutose) 22.5 gm Q15M PRN PO DECREASED GLUCOSE; Start 08/17/18 at 10:30 Dextrose (D50w Syringe) 25 ml Q15M PRN IV DECREASED GLUCOSE; Start 08/17/18 at 10:30 Dextrose (D50w Syringe) 50 ml Q15M PRN IV DECREASED GLUCOSE; Start 08/17/18 at 10:30 Glucagon (Glucagen) 1 mg Q15M PRN IM DECREASED GLUCOSE; Start 08/17/18 at 10:30 Glucose (Glutose) 15 gm Q15M PRN BUCCAL DECREASED GLUCOSE; Start 08/17/18 at 10:30 Zolpidem Tartrate (Ambien) 10 mg QHS PRN PO INSOMNIA Last administered on 09/15/18at 20:58; Admin Dose 10 MG; Start 08/20/18 at 11:30 Phenol (Cepastat Lozenge) 1 lozenge Q1H PRN MT THROAT PAIN Last administered on 09/16/18at 10:45; Admin Dose 1 LOZENGE; Start 08/21/18 at 11:00 Acetaminophen (Tylenol Tab) 500 mg Q6H PRN PO MILD PAIN(1-3)OR ELEVATED TEMP; Start 09/01/18 at 18:30 Lidocaine (Xylocaine (Viscous)) 15 ml QID PRN PO Pain in the mouth; Start 09/02/18 at 10:30 Daptomycin 500 mg/ Sodium Chloride 100 ml @ 200 mls/hr Q24H IVPB Last administered on 09/15/18 15:34; Admin Dose 200 MLS/HR; Start 09/03/18 at 16:00 Levofloxacin/ Dextrose 100 ml @ 100 mls/hr Q24H IVPB Last administered on 09/15/18 16:19; Admin Dose 100 MLS/HR; Start 09/05/18 at 16:30; Stop 09/19/18 at 16:29 Trazodone HCl (Desyrel) 50 mg BID PO Last administered on 09/16/18 08:31; Admin Dose 50 MG; Start 09/08/18 at 12:30 Lactobacillus Acidophilus/ Rhamnosus (Culturelle) 1 cap BID PO Last administere d on 09/16/18 08:31; Admin Dose 1 CAP; Start 09/08/18 at 12:00 Promethazine HCl/ Codeine (Phenergan/ Codeine) 10 ml Q4H PRN PO COUGH; Start 09/09/18 at 17:30 Oxymetazoline HCl (Afrin [place]) 2 spray BID NASAL Last administered on 09/13/18 09:07; Admin Dose 2 SPRAY; Start 09/09/18 at 21:00 Cholecalciferol (Vitamin D) 2,000 unit DAILY PO Last administered on 09/16/18 08:31; Admin Dose 2,000 UNIT; Start 09/13/18 at 09:00 Diphenhydramine HCl (Benadryl) 50 mg Q4 PRN IV ITCHING Last administered on 09/16/18 10:43; Admin Dose 50 MG; Start 09/10/18 at 13:00 Levothyroxine Sodium (Synthroid) 50 mcg BEFORE BREAKFAST PO Last administered on 09/16/18 06:43; Admin Dose 50 MCG; Start 09/13/18 at 07:00 Lorazepam (Ativan) 2 mg Q6 PRN IV Anxiety Last administered on 09/16/18 00:49; Admin Dose 2 MG; Start 09/10/18 at 13:00 Methadone HCl (Methadone Liq) 1 mg TID PO Last administered on 09/16/18at 08:31; Admin Dose 1 MG; Start 09/11/18 at 21:00 Hydromorphone HCl (Dilaudid) 1 mg Q4H PRN IV SEVERE PAIN LEVEL 7-10 Last administered on 09/16/18at 10:45; Admin Dose 1 MG; Start 09/11/18 at 22:00 Pantoprazole (Protonix Tab) 40 mg DAILY@06 PO Last administered on 09/16/18at 06:43; Admin Dose 40 MG; Start 09/13/18 at 06:00 Miscellaneous Information (*Order Clarification Bulletin) MEDICATION REQUIRES CLARIFICATI... Q8H XX ; Start 09/16/18 at 09:30 SUZANNE STEVENSON NP Sep 16, 2018 11:03
[2018-09-16 14:00] VITALS: BP 103/58; PULSE 93; RESP 18
[2018-09-16] MEDS: LEVOFLOXACIN 500MG/D5W (PMX) 100 ML IVPB SCH (15:30)
[2018-09-16] MEDS: DAPTOMYCIN 500 MG in SOD CHLORIDE 0.9% 100 ML IVPB SCH (16:56)
--- NOTE | 2018-09-16 17:01 | CONS ---
Assessment/Plan Assessment/Plan Hospital Course (Demo Recall) sepsis, endovascular infection - s/p sepsis d/t bacteremia - fever and tachycardia resolved - bacteremia d/t Coag Neg Staph and Stenotrophomonas maltophilia on 09/01/2018 and 09/02/2018; repeat blood cultures 09/04/18 negative - h/o "bacteremia due to enterococci" according to progress notes at [facility], but the actual microbiology report indicated blood culture was positive for ESBL+E. coli - h/o fungemia due to kaley glabrata, sensitive to fluconazole and to micafungin/caspofungin at [facility] - TTE done 09/04/18 showed no mention of valvular vegetations; EF 55-60% pulm - persistent hemoptysis of unknown etiology: Pt reports negative PPD last month at [facility]. - according to the microbiology report at [facility], Pt had ESBL+E. coli in her respiratory culture. Sputum cultures for AFB and fungi were negative at 8 weeks and at 4 weeks respectively at [facility] - Pt had negative bronchoscopy in 05/2018 at [facility], another at [facility] in 2017, and on 08/25/2018 at [facility] (no e/o bronchial airway bleeding according to Dr. Bello - Numerous tiny lung nodules, increased in number from the chest CT dated May 22, 2018, with largest measuring 0.3 cm in the left apex-->follow up CT on 09/10/2018 indicated: stable bilateral micronodules dating back to examination of at least 01/29/2017; RLL fibrosis. - Kaley albicans in sputum cx on 08/28/2018 - likely colonizer - so far: aspergillus antibody not detected, HIV negative, coccidioidomycosis serology negative, TB Quant Gold negative, 1,3 beta d glucan negative, procalc 09/01/18 was 0.30; Sputum for O&P was prelim negative and growing nl resp zay GI - Delgado-colitis per CT 08/13/18 - S/p diarrhea on 09/06/18 - s/p EGD on 09/10/2018: no GI bleeding noted, reportedly completely normal - S/p sigmoidoscopy with biopsy 08/17/2018; path showed no e/o colitis or malignancy from transverse colon and rectum biopsies - S/p bloody diarrhea d/t Giardia; Pt took metronidazole for Giardia (08/14/2018- 08/21/2018) in 07/2018. - H/o C diff toxin negative PCR positive status at [facility]. Took a course of Fidaxomyxin x 10 days. C. diff was negative on 08/14/2018 at [facility] - H/o cholecystectomy - Stool for O&P was negative 09/12/18 heme/oncology - S/p CT guided bone marrow aspiration and biopsy 08/20/2018 - Microcytic anemia requiring PRBC d/t acute blood loss - Electrophoresis 08/19/18 showed: Evaluation suggests beta thalassemia trait with anemia. Iron deficiency must be ruled out. - H/o BUE and RLE DVT, s/p IVC filter in January 2018 - H/o Hodgkin lymphoma diagnosed in 2006 - H/o thyroid CA diagnosed in 2005, s/p resection, chemo and XRT - IVC filter placement - Patient reports that approximately 2 years ago (2016?) she had an abnormal mammogram of Left breast and that she was scheduled for a biopsy approximately 4 months ago but d/t insurance change did not receive the biopsy, on 09/13/18 giselle ent reported brown drainage from left nipple x2 nights - +Family hx of cancer (father of stomach CA, mother of lymphoma, paternal uncle had breast CA and 12 yo daughter has h/o brain tumor s/p surgery and resulting blindness) , renal - h/o UTI due to ESBL+E. coli - S/p PO levofloxacin (08/24/2018-08/28/2018) for probable UTI other conditions - s/p a painful ulcer at frenulum, resolving. According to Pt, topical steroid would worsen the pain. HIV negative, RPR non reactive, herpes 1 and 2 by PCR not detected; s/p trial of PO valacyclovir (08/27/2018-09/01/2018) - s/p bilateral conjunctivitis - improved s/p Cipro eye drops (08/18/18-08/23/18) - Hypothyroidism - HLD - S/p hypokalemia - OA - depression/anxiety - H/o x2 - Allergy to PCN and vancomycin (reaction unknown) Recommendations: - Continue daptomycin (clarify allergy to vanco; 09/02/2018-) and levofloxacin (08/25/18-08/27/2018; restart 09/05/2018-) to complete 14 days from first negative blood culture; s/p Cefepime (09/03/18 - 09/05/18). Suggested end date of dapto through 09/17/2018 and Levaquin through 09/18/2018 (order placed) - Weekly CK level (<20 on 09/03/2018, 39 on 09/10/2018) while on daptomycin (ordered for AM) - Consider breast exam and mammogram (pt reported brown drainage from nipple x2 nights [09/12/18 and 09/13/18], states had an abnormal mammogram 2 years ago and planned biopsy which was never done) - Transfer to tertiary hospital is pending bed availability at [facility] Management was d/w patient, FERNANDO Laurent, and with Dr. Hansen. Consultation Date/Type/Reason Admit Date/Time Aug 13, 2018 at 17:22 Initial Consult Date 08/19/18 Type of Consult Infectious Disease Requesting Provider: SHAQUILLE HARRIS Date/Time of Note DATE: 09/16/18 TIME: 16:58 24 HR Interval Summary Free Text/Dictation Pt had 2 episodes of hemoptysis. Remains afebrile. Awaiting bed availability at [facility] per d/w nursing. Pt c/o same upper back pain rating 8/10, intermittent pleuritic chest discomfort and unchanged hemoptysis. Denies n/v/d, dysuria, SOB. Exam/Review of Systems Exam Vitals Vital Signs Date Temp Pulse Resp B/P (MAP) Pulse Ox O2 O2 Flow FiO2 Time Delivery Rate 09/16/18 98.5 93 18 103/58 97 14:00 (73) 09/16/18 Room Air 08:00 Intake and Output 09/15/18 09/15/18 09/16/18 1515:00 23:00 07:00 IntakeIntake Total 940 ml OutputOutput Total 50 ml BalanceBalance 940 ml -50 ml Constitutional: alert, oriented, well developed, other (sitting at side of bed about to eat) Psych: no complaints, nl mood/affect Head: normocephalic, atraumatic Eyes: nl conjunctiva, nl lids, nl sclera ENMT: nl external ears & nose, nl nasal mucosa & septum, mucosa pink and moist (no thrush), other (edentulous) Neck: supple, non-tender, other (not swollen) Respiratory: clear to auscultation, normal air movement Cardiovascular: regular rate and rhythm, nl pulses Gastrointestinal: soft, non-tender Genitourinary - Female: other (No [place]) Musculoskeletal: nl extremities to inspection Extremities: normal pulses; No edema Neurological: nl mental status, nl speech Skin: nl turgor; No rash or lesions Results Result Diagram: 09/16/1855109/16/1852 Results 24hrs Laboratory Tests Test 09/16/18 05:52 White Blood Count 4.1 #L Red Blood Count 3.18 L Hemoglobin 7.8 L Hematocrit 25.2 L Mean Corpuscular Volume 79.2 L Mean Corpuscular Hemoglobin 24.5 L Mean Corpuscular Hemoglobin Concent 31.0 L Red Cell Distribution Width 18.2 H Platelet Count 210 Mean Platelet Volume 10.7 H Immature Granulocytes % 1.200 H Neutrophils % 46.8 Lymphocytes % 38.9 Monocytes % 8.5 Eosinophils % 3.6 Basophils % 1.0 Nucleated Red Blood Cells % 0.0 Immature Granulocytes # 0.050 H Neutrophils # 1.9 Lymphocytes # 1.6 Monocytes # 0.4 Eosinophils # 0.2 Basophils # 0.0 Nucleated Red Blood Cells # 0.0 Prothrombin Time 12.6 Prothrombin Time Ratio 1.0 INR International Normalized Ratio 0.93 Activated Partial Thromboplast Time 30.6 Thrombin Time 13.8 Sodium Level 141 Potassium Level 3.8 Chloride Level 103 Carbon Dioxide Level 29 Anion Gap 9 Blood Urea Nitrogen 17 Creatinine 0.59 Est Glomerular Filtrat Rate mL/min > 60 Glucose Level 89 Calcium Level 9.0 Phosphorus Level 5.8 H Magnesium Level 2.0 Medications Medication Current Medications IV Flush (NS 3 ml) 3 ml PER PROTOCOL IV ; Start 08/13/18 at 20:00 Ondansetron HCl (Zofran Inj) 4 mg Q6H PRN IV NAUSEA AND/OR VOMITING Last administered on 09/13/18at 00:30; Admin Dose 4 MG; Start 08/13/18 at 20:00 Zinc Sulfate (Zinc Sulfate) 220 mg DAILY PO Last administered on 09/16/18at 08:31; Admin Dose 220 MG; Start 08/17/18 at 09:00 Eye Lubricant (Artificial Tears Oph) 1 drop Q6H PRN BOTH EYES DRY EYES Last administered on 08/19/18at 00:00; Admin Dose 1 DROP; Start 08/16/18 at 23:30 Miscellaneous Information 1 ea NOTE XX ; Start 08/17/18 at 10:30 Glucose (Glutose) 15 gm Q15M PRN PO DECREASED GLUCOSE; Start 08/17/18 at 10:30 Glucose (Glutose) 22.5 gm Q15M PRN PO DECREASED GLUCOSE; Start 08/17/18 at 10:30 Dextrose (D50w Syringe) 25 ml Q15M PRN IV DECREASED GLUCOSE; Start 08/17/18 at 10:30 Dextrose (D50w Syringe) 50 ml Q15M PRN IV DECREASED GLUCOSE; Start 08/17/18 at 10:30 Glucagon (Glucagen) 1 mg Q15M PRN IM DECREASED GLUCOSE; Start 08/17/18 at 10:30 Glucose (Glutose) 15 gm Q15M PRN BUCCAL DECREASED GLUCOSE; Start 08/17/18 at 10:30 Zolpidem Tartrate (Ambien) 10 mg QHS PRN PO INSOMNIA Last administered on 09/15/18at 20:58; Admin Dose 10 MG; Start 08/20/18 at 11:30 Phenol (Cepastat Lozenge) 1 lozenge Q1H PRN MT THROAT PAIN Last administered on 09/16/18at 13:28; Admin Dose 1 LOZENGE; Start 08/21/18 at 11:00 Acetaminophen (Tylenol Tab) 500 mg Q6H PRN PO MILD PAIN(1-3)OR ELEVATED TEMP; Start 09/01/18 at 18:30 Lidocaine (Xylocaine (Viscous)) 15 ml QID PRN PO Pain in the mouth; Start 09/02/18 at 10:30 Daptomycin 500 mg/ Sodium Chloride 100 ml @ 200 mls/hr Q24H IVPB Last administered on 09/16/18at 16:56; Admin Dose 200 MLS/HR; Start 09/03/18 at 16:00 Levofloxacin/ Dextrose 100 ml @ 100 mls/hr Q24H IVPB Last administered on 09/16/18at 15:30; Admin Dose 100 MLS/HR; Start 09/05/18 at 16:30; Stop 09/19/18 at 16:29 Trazodone HCl (Desyrel) 50 mg BID PO Last administered on 09/16/18 08:31; Admin Dose 50 MG; Start 09/08/18 at 12:30 Lactobacillus Acidophilus/ Rhamnosus (Culturelle) 1 cap BID PO Last administered on 09/16/18 08:31; Admin Dose 1 CAP; Start 09/08/18 at 12:00 Promethazine HCl/ Codeine (Phenergan/ Codeine) 10 ml Q4H PRN PO COUGH; Start 09/09/18 at 17:30 Oxymetazoline HCl (Afrin [place]) 2 spray BID NASAL Last administered on 09/13/18 09:07; Admin Dose 2 SPRAY; Start 09/09/18 at 21:00 Cholecalciferol (Vitamin D) 2,000 unit DAILY PO Last administered on 09/16/18 08:31; Admin Dose 2,000 UNIT; Start 09/13/18 at 09:00 Diphenhydramine HCl (Benadryl) 50 mg Q4 PRN IV ITCHING Last administered on 09/16/18 14:47; Admin Dose 50 MG; Start 09/10/18 at 13:00 Levothyroxine Sodium (Synthroid) 50 mcg BEFORE BREAKFAST PO Last administered on 09/16/18 06:43; Admin Dose 50 MCG; Start 09/13/18 at 07:00 Lorazepam (Ativan) 2 mg Q6 PRN IV Anxiety Last administered on 09/16/18 15:25; Admin Dose 2 MG; Start 09/10/18 at 13:00 Methadone HCl (Methadone Liq) 1 mg TID PO Last administered on 09/16/18 12:50; Admin Dose 1 MG; Start 09/11/18 at 21:00 Hydromorphone HCl (Dilaudid) 1 mg Q4H PRN IV SEVERE PAIN LEVEL 7-10 Last admin istered on 09/16/18 14:46; Admin Dose 1 MG; Start 09/11/18 at 22:00 Pantoprazole (Protonix Tab) 40 mg DAILY@06 PO Last administered on 09/16/18 06:43; Admin Dose 40 MG; Start 09/13/18 at 06:00 Miscellaneous Information (*Order Clarification Bulletin) MEDICATION REQUIRES CLARIFICATI... Q8H XX ; Start 09/16/18 at 09:30 RICHARD APPLE NP Sep 16, 2018 17:01
[2018-09-16 20:00] VITALS: BP 115/66; PULSE 86; RESP 18
[2018-09-16] MEDS: ZOLPIDEM 5 MG TAB PO PRN (20:18)
[2018-09-17 02:00] VITALS: BP 138/69; PULSE 84; RESP 18
[2018-09-17] MEDS: DIPHENHYDRAMINE 50 MG INJ IV PRN ×6 (02:49→22:55)
[2018-09-17] MEDS: HYDROmorphONE 1 MG/ML SYG IV PRN ×6 (02:49→22:55)
[2018-09-17] MEDS: LEVOTHYROXINE 50 MCG TAB PO SCH (06:39)
[2018-09-17] MEDS: PANTOPRAZOLE (EC) 40 MG TAB PO SCH (06:39)
--- NOTE | 2018-09-17 07:52 | PN ---
Date/Time of Note Date/Time of Note DATE: 09/17/18 TIME: 07:52 Assessment/Plan VTE Prophylaxis Risk score (from Ns)>0 risk: 6 SCD applied (from [facility]): No SCD contraindicated: other Pharmacological prophylaxis: NA/contraindicated Pharm contraindication: bleeding Lines/Catheters IV [facility] Type (from [facility] PICC Line Central line still needed: Yes Urinary Cath still in place: No Assessment/Plan Hospital Course SUBJECTIVE: Denies any abdominal pain or diarrhea. Reports hemoptysis although decreased. OBJECTIVE: Physical Exam General: Adequately build 52 year-old female lying in bed in no apparent distress. HEENT: Normocephalic, atraumatic. Eyes: Anicteric sclerae, conjunctivae clear. ENT: Nasal septum midline, oral mucosa moist. Ulcer in the frenulum linguae. Neck supple, no JVD noticed. Respiratory: Bilaterally clear breath sounds. No use of accessory muscles of respiration. No adventitious breath sounds. Cardiovascular: S1, S2 heard. No murmurs or gallops. Abdomen: Soft, nondistended, nontender. Bowel sounds positive in all 4 quadrants. Genitourinary: Deferred. Extremities: No cyanosis, no clubbing, no edema. Peripheral pulses palpable. Neurologic: Cranial nerves II through XII grossly intact. The patient is awake, alert, and oriented. Skin: Normal skin turgor. No skin rashes. 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 The patient's CT scan of the abdomen and pelvis was showing colitis involving the ascending, transverse, descending colon. The patient also had underlying leukocytosis and bandemia. Therefore, the patient was admitted to inpatient setting for further treatment and evaluati on. 1. Acute pancolitis. -Stool studies showing Giardia. S/P Flagyl (last day 08/21/2018) -Being followed by gastroenterology and ID. -Colonoscopy on 08/17/2018 showed patchy colitis. 2. Fevers with coagulase-negative Staphylococcus bacteremia on 09/01/2018. - Stenotrophomonas maltophilia bacteremia on 09/03/2018. -The patient is allergic to vancomycin. -Started the patient on daptomycin on 09/02/2018. -Start the patient on cefepime on 09/03/2018. -2D echocardiogram negative for any cardiac vegetation. 3. 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 -No evidence or documented history of Hodgkin's lymphoma as per oncology. 4. History of PE. -Status post IVC filter placement. 5. Anemia. -Microcytic and hypochromic. -Monitor H&H closely. -Stool for OB x1 positive. 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 6. Chronic pain syndrome. -Pain management as per pain team. 7. Hyperglycemia. -Etiology unclear. -Hemoglobin A1c within normal limits although this could be the glycosylated hemoglobin from the transfused (donor) blood. -The patient was told by her primary care provider previously that she is borderline diabetic. -Started the patient on sliding scale insulin on 08/17/2018. -Stopped the patients insulin SSI on 08/21/2018 once the hyperglycemia was resolved. 8. Hemoptysis on 08/18/2018. -Being followed by Pulmonology. -S/P bronchoscopy on 08/24/2018 that was unremarkable. -S/P esophagogastroduodenoscopyX2 that showed no evidence of any gastrointestinal bleed. -Status post ENT evaluation along with laryngoscopy on 09/01/2018 with no evidence of any bleeding site history of hemoptysis. 9. Ulcer of the frenulum linguae. -Continue management as per ID. 10. Fluids, electrolytes, and nutrition. -Soft diet. 11. DVT prophylaxis -Bilateral SCDs. 12. Plan. -Continue pain control. -Continue antimicrobials. -Await clinical improvement. -Awaiting to be transferred to a tertiary care facility for further evaluation of hemoptysis that is unexplained. The patient was seen in collaboration with Dr. Prabhakar. Result Diagram: 09/17/18 0544 09/17/18 0544 Results 24hrs Laboratory Tests Test 09/17/18 05:44 White Blood Count 4.9 Red Blood Count 3.23 L Hemoglobin 8.1 L Hematocrit 25.7 L Mean Corpuscular Volume 79.6 L Mean Corpuscular Hemoglobin 25.1 L Mean Corpuscular Hemoglobin Concent 31.5 L Red Cell Distribution Width 18.2 H Platelet Count 224 Mean Platelet Volume 10.3 Immature Granulocytes % 1.000 H Neutrophils % 52.2 Lymphocytes % 35.4 Monocytes % 7.1 Eosinophils % 3.5 Basophils % 0.8 Nucleated Red Blood Cells % 0.0 Immature Granulocytes # 0.050 H Neutrophils # 2.6 Lymphocytes # 1.7 Monocytes # 0.4 Eosinophils # 0.2 Basophils # 0.0 Nucleated Red Blood Cells # 0.0 Sodium Level 141 Potassium Level 3.9 Chloride Level 104 Carbon Dioxide Level 26 Anion Gap 11 Blood Urea Nitrogen 18 Creatinine 0.63 Est Glomerular Filtrat Rate mL/min > 60 Glucose Level 100 Calcium Level 9.2 Phosphorus Level 4.9 Magnesium Level 2.0 Creatine Kinase < 20 L Exam/Review of Systems Exam Vitals Vital Signs Date Temp Pulse Resp B/P (MAP) Pulse Ox O2 O2 Flow FiO2 Time Delivery Rate 09/17/18 97.5 84 18 138/69 98 02:00 (92) 09/16/18 Room Air 08:00 Intake and Output 09/16/18 09/16/18 09/17/18 1515:00 23:00 07:00 IntakeIntake Total 800 ml 440 ml OutputOutput Total 125 ml BalanceBalance 675 ml 440 ml Results Results 24hrs Laboratory Tests Test 09/17/18 05:44 White Blood Count 4.9 Red Blood Count 3.23 L Hemoglobin 8.1 L Hematocrit 25.7 L Mean Corpuscular Volume 79.6 L Mean Corpuscular Hemoglobin 25.1 L Mean Corpuscular Hemoglobin Concent 31.5 L Red Cell Distribution Width 18.2 H Platelet Count 224 Mean Platelet Volume 10.3 Immature Granulocytes % 1.000 H Neutrophils % 52.2 Lymphocytes % 35.4 Monocytes % 7.1 Eosinophils % 3.5 Basophils % 0.8 Nucleated Red Blood Cells % 0.0 Immature Granulocytes # 0.050 H Neutrophils # 2.6 Lymphocytes # 1.7 Monocytes # 0.4 Eosinophils # 0.2 Basophils # 0.0 Nucleated Red Blood Cells # 0.0 Sodium Level 141 Potassium Level 3.9 Chloride Level 104 Carbon Dioxide Level 26 Anion Gap 11 Blood Urea Nitrogen 18 Creatinine 0.63 Est Glomerular Filtrat Rate mL/min > 60 Glucose Level 100 Calcium Level 9.2 Phosphorus Level 4.9 Magnesium Level 2.0 Creatine Kinase < 20 L Medications Medication Current Medications IV Flush (NS 3 ml) 3 ml PER PROTOCOL IV ; Start 08/13/18 at 20:00 Ondansetron HCl (Zofran Inj) 4 mg Q6H PRN IV NAUSEA AND/OR VOMITING Last administered on 09/13/18at 00:30; Admin Dose 4 MG; Start 08/13/18 at 20:00 Zinc Sulfate (Zinc Sulfate) 220 mg DAILY PO Last administered on 09/16/18at 08:31; Admin Dose 220 MG; Start 08/17/18 at 09:00 Eye Lubricant (Artificial Tears Oph) 1 drop Q6H PRN BOTH EYES DRY EYES Last administered on 08/19/18at 00:00; Admin Dose 1 DROP; Start 08/16/18 at 23:30 Miscellaneous Information 1 ea NOTE XX ; Start 08/17/18 at 10:30 Glucose (Glutose) 15 gm Q15M PRN PO DECREASED GLUCOSE; Start 08/17/18 at 10:30 Glucose (Glutose) 22.5 gm Q15M PRN PO DECREASED GLUCOSE; Start 08/17/18 at 10:30 Dextrose (D50w Syringe) 25 ml Q15M PRN IV DECREASED GLUCOSE; Start 08/17/18 at 10:30 Dextrose (D50w Syringe) 50 ml Q15M PRN IV DECREASED GLUCOSE; Start 08/17/18 at 10:30 Glucagon (Glucagen) 1 mg Q15M PRN IM DECREASED GLUCOSE; Start 08/17/18 at 10:30 Glucose (Glutose) 15 gm Q15M PRN BUCCAL DECREASED GLUCOSE; Start 08/17/18 at 10:30 Zolpidem Tartrate (Ambien) 10 mg QHS PRN PO INSOMNIA Last administered on 09/16/18at 20:18; Admin Dose 10 MG; Start 08/20/18 at 11:30 Phenol (Cepastat Lozenge) 1 lozenge Q1H PRN MT THROAT PAIN Last administered on 09/16/18at 13:28; Admin Dose 1 LOZENGE; Start 08/21/18 at 11:00 Acetaminophen (Tylenol Tab) 500 mg Q6H PRN PO MILD PAIN(1-3)OR ELEVATED TEMP; Start 09/01/18 at 18:30 Lidocaine (Xylocaine (Viscous)) 15 ml QID PRN PO Pain in the mouth; Start 09/02/18 at 10:30 Daptomycin 500 mg/ Sodium Chloride 100 ml @ 200 mls/hr Q24H IVPB Last admin istered on 09/16/18 16:56; Admin Dose 200 MLS/HR; Start 09/03/18 at 16:00; Stop 09/17/18 at 23:00 Levofloxacin/ Dextrose 100 ml @ 100 mls/hr Q24H IVPB Last administered on 09/16/18 15:30; Admin Dose 100 MLS/HR; Start 09/05/18 at 16:30; Stop 09/19/18 at 16:29 Trazodone HCl (Desyrel) 50 mg BID PO Last administered on 09/16/18 20:17; Admin Dose 50 MG; Start 09/08/18 at 12:30 Lactobacillus Acidophilus/ Rhamnosus (Culturelle) 1 cap BID PO Last administered on 09/16/18 20:17; Admin Dose 1 CAP; Start 09/08/18 at 12:00 Promethazine HCl/ Codeine (Phenergan/ Codeine) 10 ml Q4H PRN PO COUGH; Start 09/09/18 at 17:30 Oxymetazoline HCl (Afrin [place]) 2 spray BID NASAL Last administered on 09/13/18 t 09:07; Admin Dose 2 SPRAY; Start 09/09/18 at 21:00 Cholecalciferol (Vitamin D) 2,000 unit DAILY PO Last administered on 09/16/18 08:31; Admin Dose 2,000 UNIT; Start 09/13/18 at 09:00 Diphenhydramine HCl (Benadryl) 50 mg Q4 PRN IV ITCHING Last administered on 09/17/18 06:46; Admin Dose 50 MG; Start 09/10/18 at 13:00 Levothyroxine Sodium (Synthroid) 50 mcg BEFORE BREAKFAST PO Last administered on 09/17/18 06:39; Admin Dose 50 MCG; Start 09/13/18 at 07:00 Lorazepam (Ativan) 2 mg Q6 PRN IV Anxiety Last administered on 09/16/18 21:30; Admin Dose 2 MG; Start 09/10/18 at 13:00 Methadone HCl (Methadone Liq) 1 mg TID PO Last administered on 09/16/18 20:17; Admin Dose 1 MG; Start 09/11/18 at 21:00 Hydromorphone HCl (Dilaudid) 1 mg Q4H PRN IV SEVERE PAIN LEVEL 7-10 Last administered on 09/17/18at 06:47; Admin Dose 1 MG; Start 09/11/18 at 22:00 Pantoprazole (Protonix Tab) 40 mg DAILY@06 PO Last administered on 09/17/18at 06:39; Admin Dose 40 MG; Start 09/13/18 at 06:00 Miscellaneous Information (*Order Clarification Bulletin) MEDICATION REQUIRES CLARIFICATI... Q8H XX ; Start 09/16/18 at 09:30 SUZANNE STEVENSON NP Sep 17, 2018 07:52
[2018-09-17 08:00] VITALS: BP 127/81; PULSE 91; RESP 18
[2018-09-17] MEDS: ZINC SULFATE 220 MG CAP PO SCH (08:25)
[2018-09-17] MEDS: OXYMETAZOLINE 0.05% 15 ML NAS SPRAY NASAL SCH ×2 (08:25→20:15)
[2018-09-17] MEDS: CHOLECALCIFEROL 2,000 UNIT CAP PO SCH (08:25)
[2018-09-17] MEDS: METHADONE (1 MG/ML 5 ML PO UD SYG) PO SCH ×3 (08:25→21:41)
[2018-09-17] MEDS: LACTOBACILLUS RHAMNOSUS CAP PO SCH ×2 (08:25→20:20)
[2018-09-17] MEDS: traZODone 50 MG TAB PO SCH ×2 (08:25→20:21)
[2018-09-17] MEDS: CEPASTAT LOZENGE MT PRN (10:37)
[2018-09-17] MEDS: LORAZEPAM 2 MG INJ IV PRN ×2 (11:37→20:20)
[2018-09-17 14:00] VITALS: BP 94/67; PULSE 100; RESP 18
--- NOTE | 2018-09-17 14:58 | CONS ---
Consult Date/Type/Reason Admit Date/Time Aug 13, 2018 at 17:22 Initial Consult Date 08/19/18 Type of Consult Pulmonary Requesting Provider: SHAQUILLE HARRIS Date/Time of Note DATE: 09/17/18 TIME: 14:54 Subjective Still with significant hemoptysis. Pending transfer [facility]. Objective Vital Signs Date Temp Pulse Resp B/P (MAP) Pulse Ox O2 O2 Flow FiO2 Time Delivery Rate 09/17/18 98.3 100 18 94/67 (76) 96 Room Air 14:00 Intake and Output 09/16/18 09/16/18 09/17/18 1515:00 23:00 07:00 IntakeIntake Total 800 ml 440 ml OutputOutput Total 125 ml BalanceBalance 675 ml 440 ml Exam GENERAL: Well-nourished well-developed lady comfortable at rest no acute distre ss VITAL SIGNS: per chart NECK: Supple. No JVD or lymphadenopathy. CARDIAC EXAM: S1, S2. No added sounds or murmurs. CHEST: clear bilaterally, No added sounds, rales or wheezes ABDOMEN: Soft, nontender. No guarding or rebound. EXTREMITIES: No cyanosis, clubbing or edema. NEUROLOGIC: Generalized weakness. No focal deficits. Vent Setting Fraction of Inspired Oxygen pe: 21 Results/Medications Result Diagram: 09/17/18 0544 09/17/18 0544 Results 24 hrs Laboratory Tests Test 09/17/18 05:44 White Blood Count 4.9 Red Blood Count 3.23 L Hemoglobin 8.1 L Hematocrit 25.7 L Mean Corpuscular Volume 79.6 L Mean Corpuscular Hemoglobin 25.1 L Mean Corpuscular Hemoglobin Concent 31.5 L Red Cell Distribution Width 18.2 H Platelet Count 224 Mean Platelet Volume 10.3 Immature Granulocytes % 1.000 H Neutrophils % 52.2 Lymphocytes % 35.4 Monocytes % 7.1 Eosinophils % 3.5 Basophils % 0.8 Nucleated Red Blood Cells % 0.0 Immature Granulocytes # 0.050 H Neutrophils # 2.6 Lymphocytes # 1.7 Monocytes # 0.4 Eosinophils # 0.2 Basophils # 0.0 Nucleated Red Blood Cells # 0.0 Sodium Level 141 Potassium Level 3.9 Chloride Level 104 Carbon Dioxide Level 26 Anion Gap 11 Blood Urea Nitrogen 18 Creatinine 0.63 Est Glomerular Filtrat Rate mL/min > 60 Glucose Level 100 Calcium Level 9.2 Phosphorus Level 4.9 Magnesium Level 2.0 Creatine Kinase < 20 L Medications Current Medications IV Flush (NS 3 ml) 3 ml PER PROTOCOL IV ; Start 08/13/18 at 20:00 Ondansetron HCl (Zofran Inj) 4 mg Q6H PRN IV NAUSEA AND/OR VOMITING Last administered on 09/13/18at 00:30; Admin Dose 4 MG; Start 08/13/18 at 20:00 Zinc Sulfate (Zinc Sulfate) 220 mg DAILY PO Last administered on 09/17/18at 08:25; Admin Dose 220 MG; Start 08/17/18 at 09:00 Eye Lubricant (Artificial Tears Oph) 1 drop Q6H PRN BOTH EYES DRY EYES Last administered on 08/19/18at 00:00; Admin Dose 1 DROP; Start 08/16/18 at 23:30 Miscellaneous Information 1 ea NOTE XX ; Start 08/17/18 at 10:30 Glucose (Glutose) 15 gm Q15M PRN PO DECREASED GLUCOSE; Start 08/17/18 at 10:30 Glucose (Glutose) 22.5 gm Q15M PRN PO DECREASED GLUCOSE; Start 08/17/18 at 10:30 Dextrose (D50w Syringe) 25 ml Q15M PRN IV DECREASED GLUCOSE; Start 08/17/18 at 10:30 Dextrose (D50w Syringe) 50 ml Q15M PRN IV DECREASED GLUCOSE; Start 08/17/18 at 10:30 Glucagon (Glucagen) 1 mg Q15M PRN IM DECREASED GLUCOSE; Start 08/17/18 at 10:30 Glucose (Glutose) 15 gm Q15M PRN BUCCAL DECREASED GLUCOSE; Start 08/17/18 at 10:30 Zolpidem Tartrate (Ambien) 10 mg QHS PRN PO INSOMNIA Last administered on 09/16/18at 20:18; Admin Dose 10 MG; Start 08/20/18 at 11:30 Phenol (Cepastat Lozenge) 1 lozenge Q1H PRN MT THROAT PAIN Last administered on 09/17/18at 10:37; Admin Dose 1 LOZENGE; Start 08/21/18 at 11:00 Acetaminophen (Tylenol Tab) 500 mg Q6H PRN PO MILD PAIN(1-3)OR ELEVATED TEMP; Start 09/01/18 at 18:30 Lidocaine (Xylocaine (Viscous)) 15 ml QID PRN PO Pain in the mouth; Start 09/02/18 at 10:30 Daptomycin 500 mg/ Sodium Chloride 100 ml @ 200 mls/hr Q24H IVPB Last administered on 09/16/18 16:56; Admin Dose 200 MLS/HR; Start 09/03/18 at 16:00; Stop 09/17/18 at 23:00 Levofloxacin/ Dextrose 100 ml @ 100 mls/hr Q24H IVPB Last administered on 09/16/18 15:30; Admin Dose 100 MLS/HR; Start 09/05/18 at 16:30; Stop 09/19/18 at 16:29 Trazodone HCl (Desyrel) 50 mg BID PO Last administered on 09/17/18 08:25; Admin Dose 50 MG; Start 09/08/18 at 12:30 Lactobacillus Acidophilus/ Rhamnosus (Culturelle) 1 cap BID PO Last administered on 09/17/18 08:25; Admin Dose 1 CAP; Start 09/08/18 at 12:00 Promethazine HCl/ Codeine (Phenergan/ Codeine) 10 ml Q4H PRN PO COUGH; Start 09/09/18 at 17:30 Oxymetazoline HCl (Afrin [place]) 2 spray BID NASAL Last administered on 09/13/18 09:07; Admin Dose 2 SPRAY; Start 09/09/18 at 21:00 Cholecalciferol (Vitamin D) 2,000 unit DAILY PO Last administered on 09/17/18 08:25; Admin Dose 2,000 UNIT; Start 09/13/18 at 09:00 Diphenhydramine HCl (Benadryl) 50 mg Q4 PRN IV ITCHING Last administered on 09/17/18 10:41; Admin Dose 50 MG; Start 09/10/18 at 13:00 Levothyroxine Sodium (Synthroid) 50 mcg BEFORE BREAKFAST PO Last administered on 09/17/18 06:39; Admin Dose 50 MCG; Start 09/13/18 at 07:00 Lorazepam (Ativan) 2 mg Q6 PRN IV Anxiety Last administered on 09/17/18 11:37; Admin Dose 2 MG; Start 09/10/18 at 13:00 Methadone HCl (Methadone Liq) 1 mg TID PO Last administered on 09/17/18at 12:15; Admin Dose 1 MG; Start 09/11/18 at 21:00 Hydromorphone HCl (Dilaudid) 1 mg Q4H PRN IV SEVERE PAIN LEVEL 7-10 Last administered on 09/17/18at 10:41; Admin Dose 1 MG; Start 09/11/18 at 22:00 Pantoprazole (Protonix Tab) 40 mg DAILY@06 PO Last administered on 09/17/18at 06:39; Admin Dose 40 MG; Start 09/13/18 at 06:00 Miscellaneous Information (*Order Clarification Bulletin) MEDICATION REQUIRES CLARIFICATI... Q8H XX ; Start 09/16/18 at 09:30 Assessment/Plan Hospital Course (Demo Recall) Assessment 1. History of recurrent hemoptysis unremarkable chest CT source unclear 2- prior bronchoscopies. Possible AVM, still with significant hemoptysis. 2. History of thyroid cancer 3. Apparent history of lymphoma in the past. Plan 1. Cardiac recs 2. Monitor H&H, transfuse as needed. 3. Antidepressants Pending transfer to [facility]. MARGE GUZMAN MD, [facility] Sep 17, 2018 14:58
[2018-09-17] MEDS: DAPTOMYCIN 500 MG in SOD CHLORIDE 0.9% 100 ML IVPB SCH (15:00)
[2018-09-17] MEDS: LEVOFLOXACIN 500MG/D5W (PMX) 100 ML IVPB SCH (15:33)
[2018-09-17 20:25] VITALS: BP 133/75; PULSE 93; RESP 20
--- NOTE | 2018-09-17 20:55 | CONS ---
[facility] HCIS Consult Follow-up Patient Name: Khadijah Masters Unit Number: [id number] Date of : 1965 Patient Status: Admitted Inpatient Attending Doctor: Mainor Lopez MD Edit: REGINA HUTCHINSON M.D. on 09/18/18 @ 22:15 Evangelina: I discussed the management with SURVEY WORKER Jaun and agree Assessment/Plan Assessment/Plan Hospital Course (Demo Recall) sepsis, endovascular infection - s/p sepsis d/t bacteremia - fever and tachycardia resolved - bacteremia d/t Coag Neg Staph and Stenotrophomonas maltophilia on 09/01/2018 and 09/02/2018; repeat blood cultures 09/04/18 negative - h/o "bacteremia due to enterococci" according to progress notes at [facility], but the actual microbiology report indicated blood culture was positive for ESBL+E. coli - h/o fungemia due to kaley glabrata, sensitive to fluconazole and to micafungin/caspofungin at [facility] - TTE done 09/04/18 showed no mention of valvular vegetations; EF 55-60% pulm - persistent hemoptysis of unknown etiology: Pt reports negative PPD last month at [facility]. - according to the microbiology report at [facility], Pt had ESBL+E. coli in her respiratory culture. Sputum cultures for AFB and fungi were negative at 8 weeks and at 4 weeks respectively at [facility] - Pt had negative bronchoscopy in 05/2018 at [facility], another at [facility] in 2017, and on 08/25/2018 at [facility] (no e/o bronchial airway bleeding according to Dr. Bello - Numerous tiny lung nodules, increased in number from the chest CT dated May 22, 2018, with largest measuring 0.3 cm in the left apex-->follow up CT on 09/10/2018 indicated: stable bilateral micronodules dating back to examination of at least 01/29/2017; RLL fibrosis. - Kaley albicans in sputum cx on 08/28/2018 - likely colonizer - so far: aspergillus antibody not detected, HIV negative, coccidioidomycosis serology negative, TB Quant Gold negative, 1,3 beta d glucan negative, procalc 09/01/18 was 0.30; Sputum for O&P was prelim negative and growing nl resp zay GI - Delgado-colitis per CT 08/13/18 - S/p diarrhea on 09/06/18 - s/p EGD on 09/10/2018: no GI bleeding noted, reportedly completely normal - S/p sigmoidoscopy with biopsy 08/17/2018; path showed no e/o colitis or malignancy from transverse colon and rectum biopsies - S/p bloody diarrhea d/t Giardia; Pt took metronidazole for Giardia (08/14/2018- 08/21/2018) in 07/2018. - H/o C diff toxin negative PCR positive status at [facility]. Took a course of Fidaxomyxin x 10 days. C. 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 Iron deficiency must be ruled out. - H/o BUE and RLE DVT, s/p IVC filter in January 2018 - H/o Hodgkin lymphoma diagnosed in 2006 - H/o thyroid CA diagnosed in 2005, s/p resection, chemo and XRT - IVC filter placement - Patient reports that approximately 2 years ago (2017?) she had an abnormal mammogram of Left breast and that she was scheduled for a biopsy approximately 4 months ago but d/t insurance change did not receive the biopsy, on 09/13/18 patient reported brown drainage from left nipple x2 nights - +Family hx of cancer (father of stomach CA, mother of lymphoma, paternal uncle had breast CA and 12 yo daughter has h/o brain tumor s/p surgery and resulting blindness) , renal - h/o UTI due to ESBL+E. coli - S/p PO levofloxacin (08/24/2018-08/28/2018) for probable UTI other conditions - s/p a painful ulcer at frenulum, resolving. According to Pt, topical steroid would worsen the pain. HIV negative, RPR non reactive, herpes 1 and 2 by PCR not detected; s/p trial of PO valacyclovir (08/27/2018-09/01/2018) - s/p bilateral conjunctivitis - improved s/p Cipro eye drops (08/18/18-08/23/18) - Hypothyroidism - HLD - S/p hypokalemia - OA - depression/anxiety - H/o x2 - Allergy to PCN and vancomycin (reaction unknown) Recommendations: - Complete course of daptomycin (09/02/2018-) today - Complete course of levofloxacin (08/25/18-08/27/2018; restart 09/05/2018-) tomorrow to complete 14 days from first negative blood culture; s/p Cefepime (09/03/18 - 09/05/18). - CK level noted stable (<20 on 09/03/2018, 39 on 09/10/2018, and <20 on 09/17/2018) - Consider breast exam and mammogram (pt reported brown drainage from nipple x2 nights [09/12/18 and 09/13/18], states had an abnormal mammogram 2 years ago and planned biopsy which was never done) - Transfer to tertiary hospital is pending bed availability at [facility] Management was d/w patient, FERNANDO Laurent, and with Dr. Hutchinson Consultation Date/Type/Reason Admit Date/Time Aug 13, 2018 at 17:22 Initial Consult Date 08/19/18 Type of Consult Infectious Disease Requesting Provider: SHAQUILLE HARRIS Date/Time of Note DATE: 09/17/18 TIME: 20:49 24 HR Interval Summary Free Text/Dictation Pt still with hemoptysis and bilateral shoulder/upper back pain rating 8/10. No n/v/d. No new issues per d/w nursing. Pt getting pain med and Ativan ATC. Still awaiting bed at [facility]. Exam/Review of Systems Exam Vitals Vital Signs Date Temp Pulse Resp B/P (MAP) Pulse Ox O2 O2 Flow FiO2 Time Delivery Rate 09/17/18 98.3 100 18 94/67 (76) 96 Room Air 14:00 Intake and Output 09/16/18 09/16/18 09/17/18 1515:00 23:00 07:00 IntakeIntake Total 800 ml 440 ml OutputOutput Total 125 ml BalanceBalance 675 ml 440 ml Exam Constitutional: alert, oriented, well developed, other (sitting at side of bed in NAD) Psych: no complaints, nl mood/affect Head: normocephalic, atraumatic Eyes: nl conjunctiva, nl lids, nl sclera ENMT: nl external ears & nose, nl nasal mucosa & septum, mucosa pink and moist (no thrush), other (edentulous) Neck: supple, non-tender, other (not swollen) Respiratory: clear to auscultation, normal air movement Cardiovascular: regular rate and rhythm, nl pulses Gastrointestinal: soft, non-tender Genitourinary - Female: other (No Bedolla) Musculoskeletal: nl extremities to inspection Extremities: normal pulses; No edema Neurological: nl mental status, nl speech Skin: nl turgor; No rash or lesions Results Result Diagram: 09/17/1844 09/17/1844 Results 24hrs Laboratory Tests Test 09/17/18 05:44 White Blood Count 4.9 Red Blood Count 3.23 L Hemoglobin 8.1 L Hematocrit 25.7 L Mean Corpuscular Volume 79.6 L Mean Corpuscular Hemoglobin 25.1 L Mean Corpuscular Hemoglobin Concent 31.5 L Red Cell Distribution Width 18.2 H Platelet Count 224 Mean Platelet Volume 10.3 Immature Granulocytes % 1.000 H Neutrophils % 52.2 Lymphocytes % 35.4 Monocytes % 7.1 Eosinophils % 3.5 Basophils % 0.8 Nucleated Red Blood Cells % 0.0 Immature Granulocytes # 0.050 H Neutrophils # 2.6 Lymphocytes # 1.7 Monocytes # 0.4 Eosinophils # 0.2 Basophils # 0.0 Nucleated Red Blood Cells # 0.0 Sodium Level 141 Potassium Level 3.9 Chloride Level 104 Carbon Dioxide Level 26 Anion Gap 11 Blood Urea Nitrogen 18 Creatinine 0.63 Est Glomerular Filtrat Rate mL/min > 60 Glucose Level 100 Calcium Level 9.2 Phosphorus Level 4.9 Magnesium Level 2.0 Creatine Kinase < 20 L Medications Medication Current Medications IV Flush (NS 3 ml) 3 ml PER PROTOCOL IV ; Start 08/13/18 at 20:00 Ondansetron HCl (Zofran Inj) 4 mg Q6H PRN IV NAUSEA AND/OR VOMITING Last administered on 09/13/18at 00:30; Admin Dose 4 MG; Start 08/13/18 at 20:00 Zinc Sulfate (Zinc Sulfate) 220 mg DAILY PO Last administered on 09/17/18at 08:25; Admin Dose 220 MG; Start 08/17/18 at 09:00 Eye Lubricant (Artificial Tears Oph) 1 drop Q6H PRN BOTH EYES DRY EYES Last administered on 08/19/18at 00:00; Admin Dose 1 DROP; Start 08/16/18 at 23:30 Miscellaneous Information 1 ea NOTE XX ; Start 08/17/18 at 10:30 Glucose (Glutose) 15 gm Q15M PRN PO DECREASED GLUCOSE; Start 08/17/18 at 10:30 Glucose (Glutose) 22.5 gm Q15M PRN PO DECREASED GLUCOSE; Start 08/17/18 at 10:30 Dextrose (D50w Syringe) 25 ml Q15M PRN IV DECREASED GLUCOSE; Start 08/17/18 at 10:30 Dextrose (D50w Syringe) 50 ml Q15M PRN IV DECREASED GLUCOSE; Start 08/17/18 at 10:30 Glucagon (Glucagen) 1 mg Q15M PRN IM DECREASED GLUCOSE; Start 08/17/18 at 10:30 Glucose (Glutose) 15 gm Q15M PRN BUCCAL DECREASED GLUCOSE; Start 08/17/18 at 1 0:30 Zolpidem Tartrate (Ambien) 10 mg QHS PRN PO INSOMNIA Last administered on 09/16/18at 20:18; Admin Dose 10 MG; Start 08/20/18 at 11:30 Phenol (Cepastat Lozenge) 1 lozenge Q1H PRN MT THROAT PAIN Last administered on 09/17/18at 10:37; Admin Dose 1 LOZENGE; Start 08/21/18 at 11:00 Acetaminophen (Tylenol Tab) 500 mg Q6H PRN PO MILD PAIN(1-3)OR ELEVATED TEMP; Start 09/01/18 at 18:30 Lidocaine (Xylocaine (Viscous)) 15 ml QID PRN PO Pain in the mouth; Start 09/02/18 at 10:30 Daptomycin 500 mg/ Sodium Chloride 100 ml @ 200 mls/hr Q24H IVPB Last administered on 09/17/18 15:00; Admin Dose 200 MLS/HR; Start 09/03/18 at 16:00; Stop 09/17/18 at 23:00 Levofloxacin/ Dextrose 100 ml @ 100 mls/hr Q24H IVPB Last administered on 09/17/18 15:33; Admin Dose 100 MLS/HR; Start 09/05/18 at 16:30; Stop 09/19/18 at 16:29 Trazodone HCl (Desyrel) 50 mg BID PO Last administered on 09/17/18 20:21; Admin Dose 50 MG; Start 09/08/18 at 12:30 Lactobacillus Acidophilus/ Rhamnosus (Culturelle) 1 cap BID PO Last administered on 09/17/18 20:20; Admin Dose 1 CAP; Start 09/08/18 at 12:00 Promethazine HCl/ Codeine (Phenergan/ Codeine) 10 ml Q4H PRN PO COUGH; Start 09/09/18 at 17:30 Oxymetazoline HCl (Afrin [place]) 2 spray BID NASAL Last administered on 09/13/18 09:07; Admin Dose 2 SPRAY; Start 09/09/18 at 21:00 Cholecalciferol (Vitamin D) 2,000 unit DAILY PO Last administered on 09/17/18 08:25; Admin Dose 2,000 UNIT; Start 09/13/18 at 09:00 Diphenhydramine HCl (Benadryl) 50 mg Q4 PRN IV ITCHING Last administered on 09/17/18 18:50; Admin Dose 50 MG; Start 09/10/18 at 13:00 Levothyroxine Sodium (Synthroid) 50 mcg BEFORE BREAKFAST PO Last administered on 09/17/18 06:39; Admin Dose 50 MCG; Start 09/13/18 at 07:00 Lorazepam (Ativan) 2 mg Q6 PRN IV Anxiety Last administered on 09/17/18 20:20; Admin Dose 2 MG; Start 09/10/18 at 13:00 Methadone HCl (Methadone Liq) 1 mg TID PO Last administered on 09/17/18 12:15; Admin Dose 1 MG; Start 09/11/18 at 21:00 Hydromorphone HCl (Dilaudid) 1 mg Q4H PRN IV SEVERE PAIN LEVEL 7-10 Last administered on 09/17/18at 18:50; Admin Dose 1 MG; Start 09/11/18 at 22:00 Pantoprazole (Protonix Tab) 40 mg DAILY@06 PO Last administered on 09/17/18at 06:39; Admin Dose 40 MG; Start 09/13/18 at 06:00 Miscellaneous Information (*Order Clarification Bulletin) MEDICATION REQUIRES CLARIFICATI... Q8H XX ; Start 09/16/18 at 09:30 RICHARD APPLE NP Sep 17, 2018 20:55
[2018-09-17] MEDS: ZOLPIDEM 5 MG TAB PO PRN (21:41)
[2018-09-18 02:30] VITALS: BP 129/73; PULSE 97; RESP 16
[2018-09-18] MEDS: DIPHENHYDRAMINE 50 MG INJ IV PRN ×6 (02:54→23:06)
[2018-09-18] MEDS: HYDROmorphONE 1 MG/ML SYG IV PRN ×6 (02:54→23:05)
[2018-09-18] MEDS: PANTOPRAZOLE (EC) 40 MG TAB PO SCH (06:50)
[2018-09-18] MEDS: LEVOTHYROXINE 50 MCG TAB PO SCH (06:50)
[2018-09-18 07:20] VITALS: BP 113/63; PULSE 75; RESP 18
[2018-09-18] MEDS: LORAZEPAM 2 MG INJ IV PRN ×2 (08:02→21:08)
[2018-09-18] MEDS: OXYMETAZOLINE 0.05% 15 ML NAS SPRAY NASAL SCH ×2 (09:00→21:00)
[2018-09-18] MEDS: METHADONE (1 MG/ML 5 ML PO UD SYG) PO SCH ×4 (09:22→21:49)
[2018-09-18] MEDS: traZODone 50 MG TAB PO SCH ×2 (09:22→21:00)
[2018-09-18] MEDS: LACTOBACILLUS RHAMNOSUS CAP PO SCH ×2 (09:22→21:00)
[2018-09-18] MEDS: CHOLECALCIFEROL 2,000 UNIT CAP PO SCH (09:22)
[2018-09-18] MEDS ORDERED: ZINC SULFATE 220 MG CAP ONE (09:27)
[2018-09-18] MEDS: ZINC SULFATE 220 MG CAP PO SCH (09:29)
--- NOTE | 2018-09-18 12:07 | CONS ---
Consult Date/Type/Reason Admit Date/Time Aug 13, 2018 at 17:22 Initial Consult Date 08/19/18 Type of Consult Pulmonary Requesting Provider: SHAQUILLE HARRIS Date/Time of Note DATE: 09/18/18 TIME: 12:05 Subjective Still having ongoing hemoptysis. Further episode this morning approximately 50 cc Objective Vital Signs Date Temp Pulse Resp B/P (MAP) Pulse Ox O2 O2 Flow FiO2 Time Delivery Rate 09/18/18 98.1 75 18 113/63 100 Room Air 07:20 (80) Intake and Output 09/17/18 09/17/18 09/18/18 1515:00 23:00 07:00 IntakeIntake Total 1160 ml 580 ml OutputOutput Total 125 ml 50 ml 100 ml BalanceBalance 1035 ml 530 ml -100 ml Exam GENERAL: Well-nourished well-developed lady comfortable at rest no acute distress VITAL SIGNS: per chart NECK: Supple. No JVD or lymphadenopathy. CARDIAC EXAM: S1, S2. No added sounds or murmurs. CHEST: clear bilaterally, No added sounds, rales or wheezes ABDOMEN: Soft, nontender. No guarding or rebound. EXTREMITIES: No cyanosis, clubbing or edema. NEUROLOGIC: Generalized weakness. No focal deficits. Vent Setting Fraction of Inspired Oxygen pe: 21 Results/Medications Result Diagram: 09/18/18 0550 09/18/18 0550 Results 24 hrs Laboratory Tests Test 09/18/18 05:50 White Blood Count 4.6 L Red Blood Count 3.11 L Hemoglobin 7.7 L Hematocrit 24.7 L Mean Corpuscular Volume 79.4 L Mean Corpuscular Hemoglobin 24.8 L Mean Corpuscular Hemoglobin Concent 31.2 L Red Cell Distribution Width 18.4 H Platelet Count 198 Mean Platelet Volume 10.8 H Immature Granulocytes % 0.900 H Neutrophils % 56.0 Lymphocytes % 30.9 Monocytes % 7.8 Eosinophils % 3.3 Basophils % 1.1 Nucleated Red Blood Cells % 0.4 H Immature Granulocytes # 0.040 H Neutrophils # 2.6 Lymphocytes # 1.4 Monocytes # 0.4 Eosinophils # 0.2 Basophils # 0.1 Nucleated Red Blood Cells # 0.0 Sodium Level 140 Potassium Level 3.6 Chloride Level 105 Carbon Dioxide Level 28 Anion Gap 7 Blood Urea Nitrogen 13 Creatinine 0.51 Est Glomerular Filtrat Rate mL/min > 60 Glucose Level 99 Calcium Level 9.0 Phosphorus Level 4.7 Magnesium Level 2.1 Medications Current Medications IV Flush (NS 3 ml) 3 ml PER PROTOCOL IV ; Start 08/13/18 at 20:00 Ondansetron HCl (Zofran Inj) 4 mg Q6H PRN IV NAUSEA AND/OR VOMITING Last administered on 09/13/18at 00:30; Admin Dose 4 MG; Start 08/13/18 at 20:00 Glucose (Glutose) 15 gm Q15M PRN PO DECREASED GLUCOSE; Start 08/17/18 at 10:30 Glucose (Glutose) 22.5 gm Q15M PRN PO DECREASED GLUCOSE; Start 08/17/18 at 10:30 Dextrose (D50w Syringe) 25 ml Q15M PRN IV DECREASED GLUCOSE; Start 08/17/18 at 10:30 Dextrose (D50w Syringe) 50 ml Q15M PRN IV DECREASED GLUCOSE; Start 08/17/18 at 10:30 Glucagon (Glucagen) 1 mg Q15M PRN IM DECREASED GLUCOSE; Start 08/17/18 at 10:30 Glucose (Glutose) 15 gm Q15M PRN BUCCAL DECREASED GLUCOSE; Start 08/17/18 at 10:30 Zolpidem Tartrate (Ambien) 10 mg QHS PRN PO INSOMNIA Last administered on 09/17/18at 21:41; Admin Dose 10 MG; Start 08/20/18 at 11:30 Phenol (Cepastat Lozenge) 1 lozenge Q1H PRN MT THROAT PAIN Last administered on 09/17/18at 10:37; Admin Dose 1 LOZENGE; Start 08/21/18 at 11:00 Acetaminophen (Tylenol Tab) 500 mg Q6H PRN PO MILD PAIN(1-3)OR ELEVATED TEMP; Start 09/01/18 at 18:30 Lidocaine (Xylocaine (Viscous)) 15 ml QID PRN PO Pain in the mouth; Start 09/02/18 at 10:30 Levofloxacin/ Dextrose 100 ml @ 100 mls/hr Q24H IVPB Last administered on 09/17/18at 15:33; Admin Dose 100 MLS/HR; Start 09/05/18 at 16:30; Stop 09/19/18 at 16:29 Trazodone HCl (Desyrel) 50 mg BID PO Last administered on 09/18/18 09:22; Admin Dose 50 MG; Start 09/08/18 at 12:30 Lactobacillus Acidophilus/ Rhamnosus (Culturelle) 1 cap BID PO Last administered on 09/18/18 09:22; Admin Dose 1 CAP; Start 09/08/18 at 12:00 Promethazine HCl/ Codeine (Phenergan/ Codeine) 10 ml Q4H PRN PO COUGH; Start 09/09/18 at 17:30 Oxymetazoline HCl (Afrin [place]) 2 spray BID NASAL Last administered on 09/13/18 09:07; Admin Dose 2 SPRAY; Start 09/09/18 at 21:00 Cholecalciferol (Vitamin D) 2,000 unit DAILY PO Last administered on 09/18/18 09:22; Admin Dose 2,000 UNIT; Start 09/13/18 at 09:00 Diphenhydramine HCl (Benadryl) 50 mg Q4 PRN IV ITCHING Last administered on 09/18/18 10:47; Admin Dose 50 MG; Start 09/10/18 at 13:00 Levothyroxine Sodium (Synthroid) 50 mcg BEFORE BREAKFAST PO Last administered on 09/18/18 06:50; Admin Dose 50 MCG; Start 09/13/18 at 07:00 Lorazepam (Ativan) 2 mg Q6 PRN IV Anxiety Last administered on 09/18/18 08:02; Admin Dose 2 MG; Start 09/10/18 at 13:00 Methadone HCl (Methadone Liq) 1 mg TID PO Last administered on 09/18/18 09:22; Admin Dose 1 MG; Start 09/11/18 at 21:00 Hydromorphone HCl (Dilaudid) 1 mg Q4H PRN IV SEVERE PAIN LEVEL 7-10 Last administered on 09/18/18 10:47; Admin Dose 1 MG; Start 09/11/18 at 22:00 Pantoprazole (Protonix Tab) 40 mg DAILY@06 PO Last administered on 09/18/18 06:50; Admin Dose 40 MG; Start 09/13/18 at 06:00 Miscellaneous Information (*Order Clarification Bulletin) MEDICATION REQUIRES CLARIFICATI... Q8H XX Last administered on 09/18/18 09:30; Admin Dose 1 EA; Start 09/16/18 at 09:30 Assessment/Plan Hospital Course (Demo Recall) Assessment 1. History of recurrent hemoptysis unremarkable chest CT source unclear 2- prior bronchoscopies. Possible AVM, still with significant hemoptysis. 2. History of thyroid cancer 3. Apparent history of lymphoma in the past. Plan 1. Cardiac recs, echocardiogram appreciated no evidence of significant intra cardiac shunt 2. Monitor H&H, transfuse as needed. 3. Antidepressants Repeat chest x-ray. Pending transfer to [facility]. MARGE GUZMAN MD, [facility] Sep 18, 2018 12:07
--- NOTE | 2018-09-18 12:20 | PN ---
Date/Time of Note Date/Time of Note DATE: 09/18/18 TIME: 12:18 Assessment/Plan VTE Prophylaxis Risk score (from Ns)>0 risk: 6 SCD applied (from Ns): No SCD contraindicated: other Pharmacological prophylaxis: NA/contraindicated, other Pharm contraindication: bleeding Lines/Catheters IV [facility] ([facility]): PICC Line Central line still needed: Yes Urinary Cath still in place: No Assessment/Plan Hospital Course SUBJECTIVE: Denies any abdominal pain or diarrhea. Reports hemoptysis although decreased. OBJECTIVE: Physical Exam General: Adequately build 52 year-old female lying in bed in no apparent distress. HEENT: Normocephalic, atraumatic. Eyes: Anicteric sclerae, conjunctivae clear. ENT: Nasal septum midline, oral mucosa moist. Ulcer in the frenulum linguae. Neck supple, no JVD noticed. Respiratory: Bilaterally clear breath sounds. No use of accessory muscles of respiration. No adventitious breath sounds. Cardiovascular: S1, S2 heard. No murmurs or gallops. Abdomen: Soft, nondistended, nontender. Bowel sounds positive in all 4 quadrants. Genitourinary: Deferred. Extremities: No cyanosis, no clubbing, no edema. Peripheral pulses palpable. Neurologic: Cranial nerves II through XII grossly intact. The patient is awake, alert, and oriented. Skin: Normal skin turgor. No skin rashes. 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 The patient's CT scan of the abdomen and pelvis was showing colitis involving the ascending, transverse, descending colon. The patient also had underlying leukocytosis and bandemia. Therefore, the patient was admitted to inpatient setting for further treatment and evaluation. 1. Acute pancolitis. -Stool studies showing Giardia. S/P Flagyl (last day 08/21/2018) -Being followed by gastroenterology and ID. -Colonoscopy on 08/17/2018 showed patchy colitis. 2. Fevers with coagulase-negative Staphylococcus bacteremia on 09/01/2018. - Stenotrophomonas maltophilia bacteremia on 09/03/2018. -The patient is allergic to vancomycin. -S/P daptomycin. -Levaquin last dose on 07/18/2019. -2D echocardiogram negative for any cardiac vegetation. 3. 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 -No evidence or documented history of Hodgkin's lymphoma as per oncology. 4. History of PE. -Status post IVC filter placement. 5. Anemia. -Microcytic and hypochromic. -Monitor H&H closely. -Stool for OB x1 positive. 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 6. Chronic pain syndrome. -Pain management as per pain team. 7. Hyperglycemia. -Etiology unclear. -Hemoglobin A1c within normal limits although this could be the glycosylated hemoglobin from the transfused (donor) blood. -The patient was told by her primary care provider previously that she is borderline diabetic. -Started the patient on sliding scale insulin on 08/17/2018. -Stopped the patients insulin SSI on 08/21/2018 once the hyperglycemia was resolved. 8. Hemoptysis on 08/18/2018. -Being followed by Pulmonology. -S/P bronchoscopy on 08/24/2018 that was unremarkable. -S/P esophagogastroduodenoscopyX2 that showed no evidence of any gastrointestinal bleed. -Status post ENT evaluation along with laryngoscopy on 09/01/2018 with no evidence of any bleeding site history of hemoptysis. 9. Ulcer of the frenulum linguae. -Resolved. 10. Fluids, electrolytes, and nutrition. -Regular diet. 11. DVT prophylaxis -Bilateral SCDs. 12. Plan. -Continue pain control. -Continue antimicrobials. -Await clinical improvement. -Awaiting to be transferred to a tertiary care facility for further evaluation of hemoptysis that is unexplained. -B/L breast US because of complaint of nipple discharge and verbalized abnormal mammogram. The patient was seen in collaboration with Dr. Montes. Result Diagram: 09/18/18 0550 09/18/18 0550 Results 24hrs Laboratory Tests Test 09/18/18 05:50 White Blood Count 4.6 L Red Blood Count 3.11 L Hemoglobin 7.7 L Hematocrit 24.7 L Mean Corpuscular Volume 79.4 L Mean Corpuscular Hemoglobin 24.8 L Mean Corpuscular Hemoglobin Concent 31.2 L Red Cell Distribution Width 18.4 H Platelet Count 198 Mean Platelet Volume 10.8 H Immature Granulocytes % 0.900 H Neutrophils % 56.0 Lymphocytes % 30.9 Monocytes % 7.8 Eosinophils % 3.3 Basophils % 1.1 Nucleated Red Blood Cells % 0.4 H Immature Granulocytes # 0.040 H Neutrophils # 2.6 Lymphocytes # 1.4 Monocytes # 0.4 Eosinophils # 0.2 Basophils # 0.1 Nucleated Red Blood Cells # 0.0 Sodium Level 140 Potassium Level 3.6 Chloride Level 105 Carbon Dioxide Level 28 Anion Gap 7 Blood Urea Nitrogen 13 Creatinine 0.51 Est Glomerular Filtrat Rate mL/min > 60 Glucose Level 99 Calcium Level 9.0 Phosphorus Level 4.7 Magnesium Level 2.1 Exam/Review of Systems Exam Vitals Vital Signs Date Temp Pulse Resp B/P (MAP) Pulse Ox O2 O2 Flow FiO2 Time Delivery Rate 09/18/18 98.1 75 18 113/63 100 Room Air 07:20 (80) Intake and Output 09/17/18 09/17/18 09/18/18 1515:00 23:00 07:00 IntakeIntake Total 1160 ml 580 ml OutputOutput Total 125 ml 50 ml 100 ml BalanceBalance 1035 ml 530 ml -100 ml Results Results 24hrs Laboratory Tests Test 09/18/18 05:50 White Blood Count 4.6 L Red Blood Count 3.11 L Hemoglobin 7.7 L Hematocrit 24.7 L Mean Corpuscular Volume 79.4 L Mean Corpuscular Hemoglobin 24.8 L Mean Corpuscular Hemoglobin Concent 31.2 L Red Cell Distribution Width 18.4 H Platelet Count 198 Mean Platelet Volume 10.8 H Immature Granulocytes % 0.900 H Neutrophils % 56.0 Lymphocytes % 30.9 Monocytes % 7.8 Eosinophils % 3.3 Basophils % 1.1 Nucleated Red Blood Cells % 0.4 H Immature Granulocytes # 0.040 H Neutrophils # 2.6 Lymphocytes # 1.4 Monocytes # 0.4 Eosinophils # 0.2 Basophils # 0.1 Nucleated Red Blood Cells # 0.0 Sodium Level 140 Potassium Level 3.6 Chloride Level 105 Carbon Dioxide Level 28 Anion Gap 7 Blood Urea Nitrogen 13 Creatinine 0.51 Est Glomerular Filtrat Rate mL/min > 60 Glucose Level 99 Calcium Level 9.0 Phosphorus Level 4.7 Magnesium Level 2.1 Medications Medication Current Medications IV Flush (NS 3 ml) 3 ml PER PROTOCOL IV ; Start 08/13/18 at 20:00 Ondansetron HCl (Zofran Inj) 4 mg Q6H PRN IV NAUSEA AND/OR VOMITING Last administered on 09/13/18at 00:30; Admin Dose 4 MG; Start 08/13/18 at 20:00 Glucose (Glutose) 15 gm Q15M PRN PO DECREASED GLUCOSE; Start 08/17/18 at 10:30 Glucose (Glutose) 22.5 gm Q15M PRN PO DECREASED GLUCOSE; Start 08/17/18 at 10:30 Dextrose (D50w Syringe) 25 ml Q15M PRN IV DECREASED GLUCOSE; Start 08/17/18 at 10:30 Dextrose (D50w Syringe) 50 ml Q15M PRN IV DECREASED GLUCOSE; Start 08/17/18 at 10:30 Glucagon (Glucagen) 1 mg Q15M PRN IM DECREASED GLUCOSE; Start 08/17/18 at 10:30 Glucose (Glutose) 15 gm Q15M PRN BUCCAL DECREASED GLUCOSE; Start 08/17/18 at 10:30 Zolpidem Tartrate (Ambien) 10 mg QHS PRN PO INSOMNIA Last administered on 09/17/18at 21:41; Admin Dose 10 MG; Start 08/20/18 at 11:30 Phenol (Cepastat Lozenge) 1 lozenge Q1H PRN MT THROAT PAIN Last administered on 09/17/18at 10:37; Admin Dose 1 LOZENGE; Start 08/21/18 at 11:00 Acetaminophen (Tylenol Tab) 500 mg Q6H PRN PO MILD PAIN(1-3)OR ELEVATED TEMP; Start 09/01/18 at 18:30 Lidocaine (Xylocaine (Viscous)) 15 ml QID PRN PO Pain in the mouth; Start 09/02/18 at 10:30 Levofloxacin/ Dextrose 100 ml @ 100 mls/hr Q24H IVPB Last administered on 09/17/18at 15:33; Admin Dose 100 MLS/HR; Start 09/05/18 at 16:30; Stop 09/19/18 at 16:29 Trazodone HCl (Desyrel) 50 mg BID PO Last administered on 09/18/18at 09:22; Admin Dose 50 MG; Start 09/08/18 at 12:30 Lactobacillus Acidophilus/ Rhamnosus (Culturelle) 1 cap BID PO Last administered on 09/18/18 09:22; Admin Dose 1 CAP; Start 09/08/18 at 12:00 Promethazine HCl/ Codeine (Phenergan/ Codeine) 10 ml Q4H PRN PO COUGH; Start 09/09/18 at 17:30 Oxymetazoline HCl (Afrin [place]) 2 spray BID NASAL Last administered on 09/13/18 09:07; Admin Dose 2 SPRAY; Start 09/09/18 at 21:00 Cholecalciferol (Vitamin D) 2,000 unit DAILY PO Last administered on 09/18/18 09:22; Admin Dose 2,000 UNIT; Start 09/13/18 at 09:00 Diphenhydramine HCl (Benadryl) 50 mg Q4 PRN IV ITCHING Last administered on 09/18/18 10:47; Admin Dose 50 MG; Start 09/10/18 at 13:00 Levothyroxine Sodium (Synthroid) 50 mcg BEFORE BREAKFAST PO Last administered on 09/18/18 06:50; Admin Dose 50 MCG; Start 09/13/18 at 07:00 Lorazepam (Ativan) 2 mg Q6 PRN IV Anxiety Last administered on 09/18/18 08:02; Admin Dose 2 MG; Start 09/10/18 at 13:00 Methadone HCl (Methadone Liq) 1 mg TID PO Last administered on 09/18/18 09:22; Admin Dose 1 MG; Start 09/11/18 at 21:00 Hydromorphone HCl (Dilaudid) 1 mg Q4H PRN IV SEVERE PAIN LEVEL 7-10 Last administered on 09/18/18 10:47; Admin Dose 1 MG; Start 09/11/18 at 22:00 Pantoprazole (Protonix Tab) 40 mg DAILY@06 PO Last administered on 09/18/18 06:50; Admin Dose 40 MG; Start 09/13/18 at 06:00 Miscellaneous Information (*Order Clarification Bulletin) MEDICATION REQUIRES CLARIFICATI... Q8H XX Last administered on 09/18/18 09:30; Admin Dose 1 EA; Start 09/16/18 at 09:30 SUZANNE STEVENSON NP Sep 18, 2018 12:20
[2018-09-18 14:38] VITALS: BP 113/71; PULSE 99; RESP 18
[2018-09-18] MEDS: LEVOFLOXACIN 500MG/D5W (PMX) 100 ML IVPB SCH (16:43)
--- NOTE | 2018-09-18 17:12 | CONS ---
Assessment/Plan Assessment/Plan Assessment/Plan (Daily) h/o Lymphoma -thus far there are no lesions that can be biopsied and it does not appear she has active cancer #Anemia-hgb 7.7 today -Hgb Electrophoresis - confirms B- thalassemia trait with Anemia -pt has had microcytic anemia requiring transfusions for years -will order a bone marrow bx at this time- pending -anemia panel-anemia positive # Hemoptysis VS Hematemesis - GI follows - 08/31/2018- S/P esophagogastroduodenoscopy- showed no evidence of any gastrointestinal bleed. #Hemoptysis, recurrent. -s/p unremarkable bronchoscopy at [facility] -s/p unremarkable flexible laryngoscopy 02/05/17 at [facility] -CT Chest pulmonary nodules are noted but are too small to biopsy -ID workup pending for pulmonary nodules- Numerous tiny lung nodules, increased in number from the chest CT dated May 22, 2018, with largest measuring 0.3 cm in the left apex - 02/2018- negative TB workup -08/21/18-CT Chest Angio- no new changes. will do Follow-up CT in X 3-4 months to insure stability as recommended - 08/24/18- Repeat bronchoscopy - wnl - Given her platelets and coag panel are wnl; Bronchoscopy is wnl #pancolitis. -Colonoscopy on 08/17/2018 showed patchy colitis. bx was negative -Stool positive for Giardia- pt on vancomycin and Flagyl - acute hypokalemia- per PMD Patient seen in collaboration with Dr Brown. Dw Staff Consultation Date/Type/Reason Admit Date/Time Aug 13, 2018 at 17:22 Initial Consult Date 08/19/18 Type of Consult ONCOLOGY Reason for Consultation Hx Lymphoma Requesting Provider: SHAQUILLE HARRIS Date/Time of Note DATE: 09/18/18 TIME: 17:11 24 HR Interval Summary Free Text/Dictation Awake; denies any pain c/o coughing blood- better today no new issues reported last night Constitutional: requiring O2 Detailed Summary Eyes: no complaints ENT: no complaints Respiratory: cough (w/blood), shortness of breath Cardiovascular: no complaints Gastrointestinal: no complaints Genitourinary: no complaints Musculoskeletal: other (weakness) Skin: no complaints Neurologic: no complaints Lymphatic: no complaints Psychological: no complaints Immunologic: no complaints Exam/Review of Systems Exam Vitals Vital Signs Date Temp Pulse Resp B/P (MAP) Pulse Ox O2 O2 Flow FiO2 Time Delivery Rate 09/18/18 97.9 99 18 113/71 96 14:38 (85) 09/18/18 Room Air 07:20 Intake and Output 09/17/18 09/17/18 09/18/18 1515:00 23:00 07:00 IntakeIntake Total 1160 ml 580 ml OutputOutput Total 125 ml 50 ml 100 ml BalanceBalance 1035 ml 530 ml -100 ml Constitutional: alert, well developed Psych: nl mood/affect Head: normocephalic Eyes: EOMI, nl lids, nl sclera ENMT: nl external ears & nose Neck: non-tender Respiratory: diminished breath sounds (bilaterally) Cardiovascular: nl pulses, other (s1s2) Gastrointestinal: soft, non-tender Musculoskeletal: nl extremities to inspection Extremities: normal pulses Neurological: nl speech, other (alert/responsive) Skin: nl turgor Lymph: nontender Results Result Diagram: 09/18/18 0550 09/18/18 0550 Results 24hrs Laboratory Tests Test 09/18/18 05:50 White Blood Count 4.6 L Red Blood Count 3.11 L Hemoglobin 7.7 L Hematocrit 24.7 L Mean Corpuscular Volume 79.4 L Mean Corpuscular Hemoglobin 24.8 L Mean Corpuscular Hemoglobin Concent 31.2 L Red Cell Distribution Width 18.4 H Platelet Count 198 Mean Platelet Volume 10.8 H Immature Granulocytes % 0.900 H Neutrophils % 56.0 Lymphocytes % 30.9 Monocytes % 7.8 Eosinophils % 3.3 Basophils % 1.1 Nucleated Red Blood Cells % 0.4 H Immature Granulocytes # 0.040 H Neutrophils # 2.6 Lymphocytes # 1.4 Monocytes # 0.4 Eosinophils # 0.2 Basophils # 0.1 Nucleated Red Blood Cells # 0.0 Sodium Level 140 Potassium Level 3.6 Chloride Level 105 Carbon Dioxide Level 28 Anion Gap 7 Blood Urea Nitrogen 13 Creatinine 0.51 Est Glomerular Filtrat Rate mL/min > 60 Glucose Level 99 Calcium Level 9.0 Phosphorus Level 4.7 Magnesium Level 2.1 Medications Medication Current Medications IV Flush (NS 3 ml) 3 ml PER PROTOCOL IV ; Start 08/13/18 at 20:00 Ondansetron HCl (Zofran Inj) 4 mg Q6H PRN IV NAUSEA AND/OR VOMITING Last administered on 09/13/18at 00:30; Admin Dose 4 MG; Start 08/13/18 at 20:00 Glucose (Glutose) 15 gm Q15M PRN PO DECREASED GLUCOSE; Start 08/17/18 at 10:30 Glucose (Glutose) 22.5 gm Q15M PRN PO DECREASED GLUCOSE; Start 08/17/18 at 10:30 Dextrose (D50w Syringe) 25 ml Q15M PRN IV DECREASED GLUCOSE; Start 08/17/18 at 10:30 Dextrose (D50w Syringe) 50 ml Q15M PRN IV DECREASED GLUCOSE; Start 08/17/18 at 10:30 Glucagon (Glucagen) 1 mg Q15M PRN IM DECREASED GLUCOSE; Start 08/17/18 at 10:30 Glucose (Glutose) 15 gm Q15M PRN BUCCAL DECREASED GLUCOSE; Start 08/17/18 at 10:30 Zolpidem Tartrate (Ambien) 10 mg QHS PRN PO INSOMNIA Last administered on 09/17/18at 21:41; Admin Dose 10 MG; Start 08/20/18 at 11:30 Phenol (Cepastat Lozenge) 1 lozenge Q1H PRN MT THROAT PAIN Last administered on 09/17/18at 10:37; Admin Dose 1 LOZENGE; Start 08/21/18 at 11:00 Acetaminophen (Tylenol Tab) 500 mg Q6H PRN PO MILD PAIN(1-3)OR ELEVATED TEMP; Start 09/01/18 at 18:30 Lidocaine (Xylocaine (Viscous)) 15 ml QID PRN PO Pain in the mouth; Start 09/02/18 at 10:30 Levofloxacin/ Dextrose 100 ml @ 100 mls/hr Q24H IVPB Last administered on 09/18/18at 16:43; Admin Dose 100 MLS/HR; Start 09/05/18 at 16:30; Stop 09/19/18 at 16:29 Trazodone HCl (Desyrel) 50 mg BID PO Last administered on 09/18/18at 09:22; Admin Dose 50 MG; Start 09/08/18 at 12:30 Lactobacillus Acidophilus/ Rhamnosus (Culturelle) 1 cap BID PO Last administered on 09/18/18at 09:22; Admin Dose 1 CAP; Start 09/08/18 at 12:00 Promethazine HCl/ Codeine (Phenergan/ Codeine) 10 ml Q4H PRN PO COUGH; Start 09/09/18 at 17:30 Oxymetazoline HCl (Afrin [place]) 2 spray BID NASAL Last administered on 09/13/18 09:07; Admin Dose 2 SPRAY; Start 09/09/18 at 21:00 Cholecalciferol (Vitamin D) 2,000 unit DAILY PO Last administered on 09/18/18 09:22; Admin Dose 2,000 UNIT; Start 09/13/18 at 09:00 Diphenhydramine HCl (Benadryl) 50 mg Q4 PRN IV ITCHING Last administered on 09/18/18 14:47; Admin Dose 50 MG; Start 09/10/18 at 13:00 Levothyroxine Sodium (Synthroid) 50 mcg BEFORE BREAKFAST PO Last administered on 09/18/18 06:50; Admin Dose 50 MCG; Start 09/13/18 at 07:00 Lorazepam (Ativan) 2 mg Q6 PRN IV Anxiety Last administered on 09/18/18 08:02; Admin Dose 2 MG; Start 09/10/18 at 13:00 Methadone HCl (Methadone Liq) 1 mg TID PO Last administered on 09/18/18 12:46; Admin Dose 1 MG; Start 09/11/18 at 21:00 Hydromorphone HCl (Dilaudid) 1 mg Q4H PRN IV SEVERE PAIN LEVEL 7-10 Last administered on 09/18/18 14:47; Admin Dose 1 MG; Start 09/11/18 at 22:00 Pantoprazole (Protonix Tab) 40 mg DAILY@06 PO Last administered on 09/18/18 06:50; Admin Dose 40 MG; Start 09/13/18 at 06:00 Miscellaneous Information (*Order Clarification Bulletin) MEDICATION REQUIRES CLARIFICATI... Q8H XX Last administered on 09/18/18 09:30; Admin Dose 1 EA; Start 09/16/18 at 09:30 SULEMA WRIGHT Sep 18, 2018 17:12
[2018-09-18 20:06] VITALS: BP 113/59; PULSE 98; RESP 22
--- NOTE | 2018-09-18 22:58 | CONS ---
Assessment/Plan Assessment/Plan Hospital Course (Demo Recall) sepsis, endovascular infection - s/p sepsis d/t bacteremia - fever and tachycardia resolved - bacteremia d/t Coag Neg Staph and Stenotrophomonas maltophilia on 09/01/2018 and 09/02/2018; repeat blood cultures 09/04/18 negative. Pt completed daptomycin (09/02/2018-09/17/2018), - levofloxacin (08/25/18-08/27/2018; restart 09/05/2018- 09/18/2018), and cefepime (09/03/18 - 09/05/18). - h/o "bacteremia due to enterococci" according to progress notes at [facility], but the actual microbiology report indicated blood culture was positive for ESBL+E. coli - h/o fungemia due to rhonda glabrata, sensitive to fluconazole and to micafungin/caspofungin at [facility] - TTE done 09/04/18 showed no mention of valvular vegetations; EF 55-60% pulm - persistent hemoptysis of unknown etiology: Pt reports negative PPD at [facility] - according to the microbiology report at [facility], Pt had ESBL+E. coli in her respiratory culture. Sputum cultures for AFB and fungi were negative at 8 weeks and at 4 weeks respectively at [facility] - Pt had negative bronchoscopy in 05/2018 at [facility], another at [facility] in 2017, and on 08/25/2018 at [facility] (no e/o bronchial airway bleeding according to Dr. Bello) - Numerous tiny lung nodules, increased in number from the chest CT dated May 22, 2018, with largest measuring 0.3 cm in the left apex-->follow up CT on 09/10/2018 indicated: stable bilateral micronodules dating back to examination of at least 01/29/2017; RLL fibrosis. - Rhonda albicans in sputum cx on 08/28/2018 - likely colonizer - so far: aspergillus antibody not detected, HIV negative, coccidioidomycosis serology negative, TB Quant Gold negative, 1,3 beta d glucan negative, procalc 09/01/18 was 0.30; Sputum for O&P was negative GI - Delgado-colitis per CT 08/13/18 - S/p diarrhea on 09/06/18 - s/p EGD on 09/10/2018: no GI bleeding noted, reportedly completely normal - S/p sigmoidoscopy with biopsy 08/17/2018; path showed no e/o colitis or malignancy from transverse colon and rectum biopsies - S/p bloody diarrhea d/t Giardia; Pt took metronidazole for Giardia (08/14/2018- 08/21/2018) in 07/2018. - H/o C diff toxin negative PCR positive status at [facility]. Took a course of Fidaxomyxin x 10 days. C. 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 Iron deficiency must be ruled out. - H/o BUE and RLE DVT, s/p IVC filter in January 2018 - H/o Hodgkin lymphoma diagnosed in 2006 - H/o thyroid CA diagnosed in 2005, s/p resection, chemo and XRT - IVC filter placement - Patient reports that approximately 2 years ago (2016?) she had an abnormal mammogram of Left breast and that she was scheduled for a biopsy approximately 4 months ago but d/t insurance change did not receive the biopsy, on 09/13/18 p atient reported brown drainage from left nipple x2 nights - +Family hx of cancer (father of stomach CA, mother of lymphoma, paternal uncle had breast CA and 12 yo daughter has h/o brain tumor s/p surgery and resulting blindness) , renal - h/o UTI due to ESBL+E. coli - S/p PO levofloxacin (08/24/2018-08/28/2018) for probable UTI other conditions - s/p a painful ulcer at frenulum, resolving. According to Pt, topical steroid would worsen the pain. HIV negative, RPR non reactive, herpes 1 and 2 by PCR not detected; s/p trial of PO valacyclovir (08/27/2018-09/01/2018) - s/p bilateral conjunctivitis - improved s/p Cipro eye drops (08/18/18-08/23/18) - myalgia with hemoptysis, CK level stable (<20 on 09/03/2018, 39 on 09/10/2018, and <20 on 09/17/2018) - Hypothyroidism - HLD - S/p hypokalemia - OA - depression/anxiety - H/o x2 - Allergy to PCN and vancomycin (reaction unknown) Recommendations: - complete levofloxacin tomorrow - Pt completed daptomycin and it may help reduce her myalgia - Pt claims that tomorrow she will go to her sister's house in [place] and I told her it would be too dangerous, can be life-threatening. I instructed her stay until a bed becomes available at [facility] management was d/w patient, RN Consultation Date/Type/Reason Admit Date/Time Aug 13, 2018 at 17:22 Initial Consult Date 08/19/18 Type of Consult ID Requesting Provider: SHAQUILLE HARRIS Date/Time of Note DATE: 09/18/18 TIME: 22:47 24 HR Interval Summary Constitutional: poor po, other (not feeling well) Detailed Summary Eyes: no complaints ENT: no complaints Respiratory: cough, shortness of breath, sputum, other (hemoptysis) Cardiovascular: no complaints Gastrointestinal: no complaints Genitourinary: no complaints Musculoskeletal: back pain, bone/joint pain, neck pain Skin: no complaints Neurologic: no complaints Exam/Review of Systems Exam Vitals Vital Signs Date Temp Pulse Resp B/P (MAP) Pulse Ox O2 O2 Flow FiO2 Time Delivery Rate 09/18/18 99.3 98 22 113/59 98 Room Air 20:06 (77) Intake and Output 09/17/18 09/17/18 09/18/18 1515:00 23:00 07:00 IntakeIntake Total 1160 ml 580 ml OutputOutput Total 125 ml 50 ml 100 ml BalanceBalance 1035 ml 530 ml -100 ml Constitutional: alert Psych: other (saying "it is too much") Head: normocephalic Eyes: nl conjunctiva ENMT: nl external ears & nose, nl nasal mucosa & septum Neck: other (not swollen) Respiratory: clear to auscultation, normal air movement Cardiovascular: regular rate and rhythm, nl pulses; No edema Gastrointestinal: soft, non-tender; No tender Musculoskeletal: nl extremities to inspection Extremities: No edema Neurological: DEP[employer]AT[employer] II-XII intact, nl speech, nl strength, other (sad affect) Skin: nl turgor; No rash or lesions Results Result Diagram: 09/18/18 0550 09/18/18 0550 Results 24hrs Laboratory Tests Test 09/18/18 05:50 White Blood Count 4.6 L Red Blood Count 3.11 L Hemoglobin 7.7 L Hematocrit 24.7 L Mean Corpuscular Volume 79.4 L Mean Corpuscular Hemoglobin 24.8 L Mean Corpuscular Hemoglobin Concent 31.2 L Red Cell Distribution Width 18.4 H Platelet Count 198 Mean Platelet Volume 10.8 H Immature Granulocytes % 0.900 H Neutrophils % 56.0 Lymphocytes % 30.9 Monocytes % 7.8 Eosinophils % 3.3 Basophils % 1.1 Nucleated Red Blood Cells % 0.4 H Immature Granulocytes # 0.040 H Neutrophils # 2.6 Lymphocytes # 1.4 Monocytes # 0.4 Eosinophils # 0.2 Basophils # 0.1 Nucleated Red Blood Cells # 0.0 Sodium Level 140 Potassium Level 3.6 Chloride Level 105 Carbon Dioxide Level 28 Anion Gap 7 Blood Urea Nitrogen 13 Creatinine 0.51 Est Glomerular Filtrat Rate mL/min > 60 Glucose Level 99 Calcium Level 9.0 Phosphorus Level 4.7 Magnesium Level 2.1 Medications Medication Current Medications IV Flush (NS 3 ml) 3 ml PER PROTOCOL IV ; Start 08/13/18 at 20:00 Ondansetron HCl (Zofran Inj) 4 mg Q6H PRN IV NAUSEA AND/OR VOMITING Last administered on 09/13/18at 00:30; Admin Dose 4 MG; Start 08/13/18 at 20:00 Glucose (Glutose) 15 gm Q15M PRN PO DECREASED GLUCOSE; Start 08/17/18 at 10:30 Glucose (Glutose) 22.5 gm Q15M PRN PO DECREASED GLUCOSE; Start 08/17/18 at 10:30 Dextrose (D50w Syringe) 25 ml Q15M PRN IV DECREASED GLUCOSE; Start 08/17/18 at 10:30 Dextrose (D50w Syringe) 50 ml Q15M PRN IV DECREASED GLUCOSE; Start 08/17/18 at 10:30 Glucagon (Glucagen) 1 mg Q15M PRN IM DECREASED GLUCOSE; Start 08/17/18 at 10:30 Glucose (Glutose) 15 gm Q15M PRN BUCCAL DECREASED GLUCOSE; Start 08/17/18 at 10:30 Zolpidem Tartrate (Ambien) 10 mg QHS PRN PO INSOMNIA Last administered on 09/17/18 21:41; Admin Dose 10 MG; Start 08/20/18 at 11:30 Phenol (Cepastat Lozenge) 1 lozenge Q1H PRN MT THROAT PAIN Last administered on 09/17/18 10:37; Admin Dose 1 LOZENGE; Start 08/21/18 at 11:00 Acetaminophen (Tylenol Tab) 500 mg Q6H PRN PO MILD PAIN(1-3)OR ELEVATED TEMP; Start 09/01/18 at 18:30 Lidocaine (Xylocaine (Viscous)) 15 ml QID PRN PO Pain in the mouth; Start 09/02/18 at 10:30 Levofloxacin/ Dextrose 100 ml @ 100 mls/hr Q24H IVPB Last administered on 09/18/18 16:43; Admin Dose 100 MLS/HR; Start 09/05/18 at 16:30; Stop 09/19/18 at 16:29 Trazodone HCl (Desyrel) 50 mg BID PO Last administered on 09/18/18 09:22; Admin Dose 50 MG; Start 09/08/18 at 12:30 Lactobacillus Acidophilus/ Rhamnosus (Culturelle) 1 cap BID PO Last administered on 09/18/18 09:22; Admin Dose 1 CAP; Start 09/08/18 at 12:00 Promethazine HCl/ Codeine (Phenergan/ Codeine) 10 ml Q4H PRN PO COUGH; Start 09/09/18 at 17:30 Oxymetazoline HCl (Afrin [place]) 2 spray BID NASAL Last administered on 09/13/18 09:07; Admin Dose 2 SPRAY; Start 09/09/18 at 21:00 Cholecalciferol (Vitamin D) 2,000 unit DAILY PO Last administered on 09/18/18 09:22; Admin Dose 2,000 UNIT; Start 09/13/18 at 09:00 Diphenhydramine HCl (Benadryl) 50 mg Q4 PRN IV ITCHING Last administered on 09/18/18 18:48; Admin Dose 50 MG; Start 09/10/18 at 13:00 Levothyroxine Sodium (Synthroid) 50 mcg BEFORE BREAKFAST PO Last administered on 09/18/18 06:50; Admin Dose 50 MCG; Start 09/13/18 at 07:00 Lorazepam (Ativan) 2 mg Q6 PRN IV Anxiety Last administered on 09/18/18 21:08; Admin Dose 2 MG; Start 09/10/18 at 13:00 Methadone HCl (Methadone Liq) 1 mg TID PO Last administered on 09/18/18 21:49; Admin Dose 1 MG; Start 09/11/18 at 21:00 Hydromorphone HCl (Dilaudid) 1 mg Q4H PRN IV SEVERE PAIN LEVEL 7-10 Last administered on 09/18/18 18:48; Admin Dose 1 MG; Start 09/11/18 at 22:00 Pantoprazole (Protonix Tab) 40 mg DAILY@06 PO Last administered on 09/18/18 06:50; Admin Dose 40 MG; Start 09/13/18 at 06:00 Miscellaneous Information (*Order Clarification Bulletin) MEDICATION REQUIRES CLARIFICATI... Q8H XX Last administered on 09/18/18 09:30; Admin Dose 1 EA; Start 09/16/18 at 09:30 REGINA CARRASCO M.D. Sep 18, 2018 22:57
[2018-09-19] MEDS: ZOLPIDEM 5 MG TAB PO PRN ×2 (00:11→21:05)
[2018-09-19] MEDS: PROMETHAZINE/CODEINE 5ML CUP PO PRN (00:51)
[2018-09-19 01:57] VITALS: BP 143/63; PULSE 103; RESP 20
[2018-09-19] MEDS: ACETAMINOPHEN 500 MG TAB PO PRN ×2 (02:30→10:13)
[2018-09-19] MEDS: HYDROmorphONE 1 MG/ML SYG IV PRN ×6 (03:06→23:30)
[2018-09-19] MEDS: DIPHENHYDRAMINE 50 MG INJ IV PRN ×6 (03:06→23:29)
[2018-09-19] MEDS ORDERED: ACETAMINOPHEN 325 MG TAB PO ONE (03:30)
[2018-09-19] MEDS: LORAZEPAM 2 MG INJ IV PRN ×3 (04:21→22:21)
--- NOTE | 2018-09-19 04:59 | QN ---
Documentation Comment Patient meeting criteria for severe sepsis. With a temperature greater than 103 .3as well as a lactic acid of 3.2. Blood cultures x2 were ordered, urinalysis and urine culture were ordered. Nurse denied that the patient had any loose bowel movements/diarrhea. Patient already on Levaquin. I started the patient on linezolid and I am also giving a dose of meropenem. ANNE OROZCO Sep 19, 2018 04:59
[2018-09-19] MEDS ORDERED: MEROPENEM 1 GM/50ML(PMX) 50 ML IVPB ONE (05:00)
[2018-09-19] MEDS ORDERED: SOD CHLORIDE 0.9% 1,000 ML IV ONE (05:00)
[2018-09-19] MEDS: PANTOPRAZOLE (EC) 40 MG TAB PO SCH (06:11)
[2018-09-19] MEDS: LEVOTHYROXINE 50 MCG TAB PO SCH (06:11)
--- NOTE | 2018-09-19 06:28 | PN ---
Date/Time of Note Date/Time of Note DATE: 09/19/18 TIME: 06:23 Assessment/Plan VTE Prophylaxis Risk score (from Ns)>0 risk: 6 SCD applied (from Ns): No SCD contraindicated: other Pharmacological prophylaxis: NA/contraindicated Pharm contraindication: bleeding Lines/Catheters IV [facility] PICC Line Central line still needed: Yes Urinary Cath still in place: No Assessment/Plan Hospital Course SUBJECTIVE: The patient started spiking fevers last night. The patient also became ta chycardic. Complains of bilateral lower extremity pain that is new onset. OBJECTIVE: Physical Exam General: Adequately build 52 year-old female lying in bed in no apparent distr ess. HEENT: Normocephalic, atraumatic. Eyes: Anicteric sclerae, conjunctivae clear. ENT: Nasal septum midline, oral mucosa moist. Ulcer in the frenulum linguae. Neck supple, no JVD noticed. Respiratory: Bilaterally clear breath sounds. No use of accessory muscles of respiration. No adventitious breath sounds. Cardiovascular: S1, S2 heard. No murmurs or gallops. Abdomen: Soft, nondistended, nontender. Bowel sounds positive in all 4 quadrants. Genitourinary: Deferred. Extremities: No cyanosis, no clubbing, no edema. Peripheral pulses palpable. Neurologic: Cranial nerves II through XII grossly intact. The patient is awake, alert, and oriented. Skin: Normal skin turgor. No skin rashes. 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 The patient's CT scan of the abdomen and pelvis was showing colitis involving the ascending, transverse, descending colon. The patient also had underlying leukocytosis and bandemia. Therefore, the patient was admitted to inpatient setting for further treatment and evaluation. 1. Acute pancolitis. -Stool studies showing Giardia. S/P Flagyl (last day 08/21/2018) -Being followed by gastroenterology and ID. -Colonoscopy on 08/17/2018 showed patchy colitis. 2. Fevers with coagulase-negative Staphylococcus bacteremia on 09/01/2018. - Stenotrophomonas maltophilia bacteremia on 09/03/2018. Spiked fevers again on 09/19/2018. -Started on Zyvox by the search lead on 09/19/2018. -S/P daptomycin. -2D echocardiogram negative for any cardiac vegetation. 3. 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 -No evidence or documented history of Hodgkin's lymphoma as per oncology. 4. History of PE. -Status post IVC filter placement. 5. Anemia. -Microcytic and hypochromic. -Monitor H&H closely. -Stool for OB x1 positive. 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 6. Chronic pain syndrome. -Pain management as per pain team. 7. Hyperglycemia. -Etiology unclear. -Hemoglobin A1c within normal limits although this could be the glycosylated hemoglobin from the transfused (donor) blood. -The patient was told by her primary care provider previously that she is borderline diabetic. -Started the patient on sliding scale insulin on 08/17/2018. -Stopped the patients insulin SSI on 08/21/2018 once the hyperglycemia was resolved. 8. Hemoptysis on 08/18/2018. -Being followed by Pulmonology. -S/P bronchoscopy on 08/24/2018 that was unremarkable. -S/P esophagogastroduodenoscopyX2 that showed no evidence of any gastrointestinal bleed. -Status post ENT evaluation along with laryngoscopy on 09/01/2018 with no evidence of any bleeding site history of hemoptysis. 9. Ulcer of the frenulum linguae. -Resolved. 10. Fluids, electrolytes, and nutrition. -Regular diet. 11. DVT prophylaxis -Bilateral SCDs. 12. Plan. -Continue pain control. -Continue antimicrobials as per ID. -B/L LE Doppler will be ordered. -Await clinical improvement. -Awaiting to be transferred to a tertiary care facility for further evaluation of hemoptysis that is unexplained. The patient was seen in collaboration with Dr. Montes. 13:00: Received a call from the RN stating that the patient has a RLE DVT (official results pending). The patient is not a good candidate for anticoagulation because of the underlying anemia and hemoptysis. The patient already has an IVC filter in place. Result Diagram: 09/19/18 0339 09/19/18 0339 Results 24hrs Laboratory Tests Test 09/19/18 03:39 White Blood Count 6.5 # Red Blood Count 3.26 L Hemoglobin 8.1 L Hematocrit 25.4 L Mean Corpuscular Volume 77.9 L Mean Corpuscular Hemoglobin 24.8 L Mean Corpuscular Hemoglobin Concent 31.9 L Red Cell Distribution Width 18.5 H Platelet Count 184 Mean Platelet Volume 10.8 H Immature Granulocytes % 1.100 H Neutrophils % 82.7 H Lymphocytes % 11.2 L Monocytes % 3.4 Eosinophils % 1.1 Basophils % 0.5 Nucleated Red Blood Cells % 0.8 H Immature Granulocytes # 0.070 H Neutrophils # 5.4 Lymphocytes # 0.7 L Monocytes # 0.2 L Eosinophils # 0.1 Basophils # 0.0 Nucleated Red Blood Cells # 0.1 H Sodium Level 140 Potassium Level 3.6 Chloride Level 103 Carbon Dioxide Level 25 Anion Gap 12 Blood Urea Nitrogen 12 Creatinine 0.49 Est Glomerular Filtrat Rate mL/min > 60 Glucose Level 122 Lactic Acid Level 3.2 *H Calcium Level 9.3 Total Bilirubin 0.5 Direct Bilirubin 0.00 Indirect Bilirubin 0.5 Aspartate Amino Transf (AST/SGOT) 31 Alanine Aminotransferase (ALT/SGPT) 21 Alkaline Phosphatase 83 Total Protein 6.3 Albumin 3.8 Globulin 2.50 Albumin/Globulin Ratio 1.52 Exam/Review of Systems Exam Vitals Vital Signs Date Temp Pulse Resp B/P (MAP) Pulse Ox O2 O2 Flow FiO2 Time Delivery Rate 09/19/18 99.7 06:10 09/19/18 103 20 143/63 95 Room Air 01:57 (89) Intake and Output 09/18/18 09/18/18 09/19/18 1515:00 23:00 07:00 IntakeIntake Total 720 ml 400 ml 50 ml OutputOutput Total 50 ml 100 ml 100 ml BalanceBalance 670 ml 300 ml -50 ml Results Results 24hrs Laboratory Tests Test 09/19/18 03:39 White Blood Count 6.5 # Red Blood Count 3.26 L Hemoglobin 8.1 L Hematocrit 25.4 L Mean Corpuscular Volume 77.9 L Mean Corpuscular Hemoglobin 24.8 L Mean Corpuscular Hemoglobin Concent 31.9 L Red Cell Distribution Width 18.5 H Platelet Count 184 Mean Platelet Volume 10.8 H Immature Granulocytes % 1.100 H Neutrophils % 82.7 H Lymphocytes % 11.2 L Monocytes % 3.4 Eosinophils % 1.1 Basophils % 0.5 Nucleated Red Blood Cells % 0.8 H Immature Granulocytes # 0.070 H Neutrophils # 5.4 Lymphocytes # 0.7 L Monocytes # 0.2 L Eosinophils # 0.1 Basophils # 0.0 Nucleated Red Blood Cells # 0.1 H Sodium Level 140 Potassium Level 3.6 Chloride Level 103 Carbon Dioxide Level 25 Anion Gap 12 Blood Urea Nitrogen 12 Creatinine 0.49 Est Glomerular Filtrat Rate mL/min > 60 Glucose Level 122 Lactic Acid Level 3.2 *H Calcium Level 9.3 Total Bilirubin 0.5 Direct Bilirubin 0.00 Indirect Bilirubin 0.5 Aspartate Amino Transf (AST/SGOT) 31 Alanine Aminotransferase (ALT/SGPT) 21 Alkaline Phosphatase 83 Total Protein 6.3 Albumin 3.8 Globulin 2.50 Albumin/Globulin Ratio 1.52 Medications Medication Current Medications IV Flush (NS 3 ml) 3 ml PER PROTOCOL IV ; Start 08/13/18 at 20:00 Ondansetron HCl (Zofran Inj) 4 mg Q6H PRN IV NAUSEA AND/OR VOMITING Last administered on 09/13/18at 00:30; Admin Dose 4 MG; Start 08/13/18 at 20:00 Glucose (Glutose) 15 gm Q15M PRN PO DECREASED GLUCOSE; Start 08/17/18 at 10:30 Glucose (Glutose) 22.5 gm Q15M PRN PO DECREASED GLUCOSE; Start 08/17/18 at 10:30 Dextrose (D50w Syringe) 25 ml Q15M PRN IV DECREASED GLUCOSE; Start 08/17/18 at 10:30 Dextrose (D50w Syringe) 50 ml Q15M PRN IV DECREASED GLUCOSE; Start 08/17/18 at 10:30 Glucagon (Glucagen) 1 mg Q15M PRN IM DECREASED GLUCOSE; Start 08/17/18 at 10:30 Glucose (Glutose) 15 gm Q15M PRN BUCCAL DECREASED GLUCOSE; Start 08/17/18 at 10:30 Zolpidem Tartrate (Ambien) 10 mg QHS PRN PO INSOMNIA Last administered on 09/19/18at 00:11; Admin Dose 10 MG; Start 08/20/18 at 11:30 Phenol (Cepastat Lozenge) 1 lozenge Q1H PRN MT THROAT PAIN Last administered on 09/17/18 10:37; Admin Dose 1 LOZENGE; Start 08/21/18 at 11:00 Acetaminophen (Tylenol Tab) 500 mg Q6H PRN PO MILD PAIN(1-3)OR ELEVATED TEMP Last administered on 09/19/18 02:30; Admin Dose 500 MG; Start 09/01/18 at 18:30 Lidocaine (Xylocaine (Viscous)) 15 ml QID PRN PO Pain in the mouth; Start 09/02/18 at 10:30 Levofloxacin/ Dextrose 100 ml @ 100 mls/hr Q24H IVPB Last administered on 09/18/18 16:43; Admin Dose 100 MLS/HR; Start 09/05/18 at 16:30; Stop 09/19/18 at 16:29 Trazodone HCl (Desyrel) 50 mg BID PO Last administered on 09/18/18 09:22; Admin Dose 50 MG; Start 09/08/18 at 12:30 Lactobacillus Acidophilus/ Rhamnosus (Culturelle) 1 cap BID PO Last administered on 09/18/18 09:22; Admin Dose 1 CAP; Start 09/08/18 at 12:00 Promethazine HCl/ Codeine (Phenergan/ Codeine) 10 ml Q4H PRN PO COUGH Last administered on 09/19/18 00:51; Admin Dose 10 ML; Start 09/09/18 at 17:30 Oxymetazoline HCl (Afrin [place]) 2 spray BID NASAL Last administered on 09/13/18 09:07; Admin Dose 2 SPRAY; Start 09/09/18 at 21:00 Cholecalciferol (Vitamin D) 2,000 unit DAILY PO Last administered on 09/18/18 09:22; Admin Dose 2,000 UNIT; Start 09/13/18 at 09:00 Diphenhydramine HCl (Benadryl) 50 mg Q4 PRN IV ITCHING Last administered on 09/19/18 03:06; Admin Dose 50 MG; Start 09/10/18 at 13:00 Levothyroxine Sodium (Synthroid) 50 mcg BEFORE BREAKFAST PO Last administered on 09/19/18 06:11; Admin Dose 50 MCG; Start 09/13/18 at 07:00 Lorazepam (Ativan) 2 mg Q6 PRN IV Anxiety Last administered on 09/19/18 04:21; Admin Dose 2 MG; Start 09/10/18 at 13:00 Methadone HCl (Methadone Liq) 1 mg TID PO Last administered on 09/18/18at 21:49; Admin Dose 1 MG; Start 09/11/18 at 21:00 Hydromorphone HCl (Dilaudid) 1 mg Q4H PRN IV SEVERE PAIN LEVEL 7-10 Last administered on 09/19/18 03:06; Admin Dose 1 MG; Start 09/11/18 at 22:00 Pantoprazole (Protonix Tab) 40 mg DAILY@06 PO Last administered on 09/19/18 06:11; Admin Dose 40 MG; Start 09/13/18 at 06:00 Miscellaneous Information (*Order Clarification Bulletin) MEDICATION REQUIRES CLARIFICATI... Q8H XX Last administered on 09/18/18 09:30; Admin Dose 1 EA; Start 09/16/18 at 09:30 Alteplase, Recombinant (Cathflo (Activase)) 2 mg MAY REPEAT X1 PRN CATHETER IF CATHETER REMAINS OCCULUDED; Start 09/19/18 at 01:30 Linezolid 300 ml @ 300 mls/hr Q12H IVPB ; Start 09/19/18 at 05:00 SUZANNE STEVENSON NP Sep 19, 2018 06:28
[2018-09-19] MEDS ORDERED: SOD CHLORIDE 0.9% 500 ML IV ONE ×2 (06:30→15:00)
[2018-09-19 07:30] VITALS: BP 91/54; PULSE 99; RESP 18
[2018-09-19] MEDS: traZODone 50 MG TAB PO SCH ×2 (08:40→21:03)
[2018-09-19] MEDS: LACTOBACILLUS RHAMNOSUS CAP PO SCH ×2 (08:40→21:03)
[2018-09-19] MEDS: CHOLECALCIFEROL 2,000 UNIT CAP PO SCH (08:40)
[2018-09-19] MEDS: METHADONE (1 MG/ML 5 ML PO UD SYG) PO SCH ×3 (08:41→21:03)
[2018-09-19] MEDS: LINEZOLID 600 MG/D5W (PMX) 300 ML IVPB SCH ×2 (08:41→17:19)
[2018-09-19] MEDS: ALTEPLASE (CATHFLO) 2 MG INJ CATHETER PRN ×3 (12:03→15:32)
--- NOTE | 2018-09-19 13:15 | CONS ---
Assessment/Plan Assessment/Plan Assessment/Plan (Daily) h/o Lymphoma -thus far there are no lesions that can be biopsied and it does not appear she has active cancer #Anemia-hgb 8.1 today -Hgb Electrophoresis - confirms B- thalassemia trait with Anemia -pt has had microcytic anemia requiring transfusions for years -will order a bone marrow bx at this time- pending -anemia panel-anemia positive # Hemoptysis VS Hematemesis - GI follows - 08/31/2018- S/P esophagogastroduodenoscopy- showed no evidence of any gastrointestinal bleed. #Hemoptysis, recurrent. -s/p unremarkable bronchoscopy at [facility] -s/p unremarkable flexible laryngoscopy 02/05/17 at [facility] -CT Chest pulmonary nodules are noted but are too small to biopsy -ID workup pending for pulmonary nodules- Numerous tiny lung nodules, increased in number from the chest CT dated May 22, 2018, with largest measuring 0.3 cm in the left apex - 02/2018- negative TB workup -08/21/18-CT Chest Angio- no new changes. will do Follow-up CT in X 3-4 months to insure stability as recommended - 08/24/18- Repeat bronchoscopy - wnl - Given her platelets and coag panel are wnl; Bronchoscopy is wnl #pancolitis. -Colonoscopy on 08/17/2018 showed patchy colitis. bx was negative -Stool positive for Giardia- pt on vancomycin and Flagyl - acute hypokalemia- per PMD Patient seen in collaboration with Dr Brown. Dw Staff Consultation Date/Type/Reason Admit Date/Time Aug 13, 2018 at 5:22 pm Initial Consult Date 08/19/18 Type of Consult ONCOLOGY Requesting Provider: SHAQUILLE HARRIS Date/Time of Note DATE: 09/19/18 TIME: 13:14 24 HR Interval Summary Free Text/Dictation Awake; denies any pain c/o coughing blood but less than yesterday no new issues reported last night Constitutional: requiring O2 Detailed Summary Eyes: no complaints ENT: no complaints Respiratory: cough, shortness of breath Cardiovascular: no complaints Gastrointestinal: no complaints Genitourinary: no complaints Musculoskeletal: no complaints Skin: no complaints Neurologic: no complaints Endocrine: no complaints Exam/Review of Systems Exam Vitals Vital Signs Date Temp Pulse Resp B/P (MAP) Pulse Ox O2 O2 Flow FiO2 Time Delivery Rate 09/19/18 98.7 10:58 09/19/18 99 18 91/54 (66) 98 Room Air 07:30 Intake and Output 09/18/18 09/18/18 09/19/18 1515:00 23:00 07:00 IntakeIntake Total 720 ml 400 ml 645 ml OutputOutput Total 50 ml 100 ml 100 ml BalanceBalance 670 ml 300 ml 545 ml Constitutional: oriented Psych: nl mood/affect Head: normocephalic, atraumatic Eyes: nl conjunctiva ENMT: nl external ears & nose Neck: non-tender Respiratory: clear to auscultation Cardiovascular: nl pulses, other (s1s2) Gastrointestinal: soft, non-tender Musculoskeletal: nl extremities to inspection Extremities: normal pulses Neurological: nl speech, other (alert/responsiv) Skin: nl turgor Lymph: nontender Results Result Diagram: 09/19/18 0339 09/19/18 0339 Results 24hrs Laboratory Tests Test 09/19/18 03:39 09/19/18 05:43 09/19/18 08:18 White Blood Count 6.5 # Red Blood Count 3.26 L Hemoglobin 8.1 L Hematocrit 25.4 L Mean Corpuscular Volume 77.9 L Mean Corpuscular Hemoglobin 24.8 L Mean Corpuscular Hemoglobin Concent 31.9 L Red Cell Distribution Width 18.5 H Platelet Count 184 Mean Platelet Volume 10.8 H Immature Granulocytes % 1.100 H Neutrophils % 82.7 H Lymphocytes % 11.2 L Monocytes % 3.4 Eosinophils % 1.1 Basophils % 0.5 Nucleated Red Blood Cells % 0.8 H Immature Granulocytes # 0.070 H Neutrophils # 5.4 Lymphocytes # 0.7 L Monocytes # 0.2 L Eosinophils # 0.1 Basophils # 0.0 Nucleated Red Blood Cells # 0.1 H Sodium Level 140 Potassium Level 3.6 Chloride Level 103 Carbon Dioxide Level 25 Anion Gap 12 Blood Urea Nitrogen 12 Creatinine 0.49 Est Glomerular Filtrat Rate mL/min > 60 Glucose Level 122 Lactic Acid Level 3.2 *H 1.6 Calcium Level 9.3 Total Bilirubin 0.5 Direct Bilirubin 0.00 Indirect Bilirubin 0.5 Aspartate Amino Transf (AST/SGOT) 31 Alanine Aminotransferase (ALT/SGPT) 21 Alkaline Phosphatase 83 Total Protein 6.3 Albumin 3.8 Globulin 2.50 Albumin/Globulin Ratio 1.52 Erythrocyte Sedimentation Rate 24 C-Reactive Protein 2.7 H Medications Medication Current Medications IV Flush (NS 3 ml) 3 ml PER PROTOCOL IV ; Start 08/13/18 at 20:00 Ondansetron HCl (Zofran Inj) 4 mg Q6H PRN IV NAUSEA AND/OR VOMITING Last administered on 09/13/18at 00:30; Admin Dose 4 MG; Start 08/13/18 at 20:00 Glucose (Glutose) 15 gm Q15M PRN PO DECREASED GLUCOSE; Start 08/17/18 at 10:30 Glucose (Glutose) 22.5 gm Q15M PRN PO DECREASED GLUCOSE; Start 08/17/18 at 10:30 Dextrose (D50w Syringe) 25 ml Q15M PRN IV DECREASED GLUCOSE; Start 08/17/18 at 10:30 Dextrose (D50w Syringe) 50 ml Q15M PRN IV DECREASED GLUCOSE; Start 08/17/18 at 10:30 Glucagon (Glucagen) 1 mg Q15M PRN IM DECREASED GLUCOSE; Start 08/17/18 at 10:30 Glucose (Glutose) 15 gm Q15M PRN BUCCAL DECREASED GLUCOSE; Start 08/17/18 at 10:30 Zolpidem Tartrate (Ambien) 10 mg QHS PRN PO INSOMNIA Last administered on 09/19/18at 00:11; Admin Dose 10 MG; Start 08/20/18 at 11:30 Phenol (Cepastat Lozenge) 1 lozenge Q1H PRN MT THROAT PAIN Last administered on 09/17/18at 10:37; Admin Dose 1 LOZENGE; Start 08/21/18 at 11:00 Acetaminophen (Tylenol Tab) 500 mg Q6H PRN PO MILD PAIN(1-3)OR ELEVATED TEMP Last administered on 09/19/18at 10:13; Admin Dose 500 MG; Start 09/01/18 at 18:30 Lidocaine (Xylocaine (Viscous)) 15 ml QID PRN PO Pain in the mouth; Start 09/02/18 at 10:30 Levofloxacin/ Dextrose 100 ml @ 100 mls/hr Q24H IVPB Last administered on 09/18/18at 16:43; Admin Dose 100 MLS/HR; Start 09/05/18 at 16:30; Stop 09/19/18 at 16:29 Trazodone HCl (Desyrel) 50 mg BID PO Last administered on 09/19/18 08:40; Admin Dose 50 MG; Start 09/08/18 at 12:30 Lactobacillus Acidophilus/ Rhamnosus (Culturelle) 1 cap BID PO Last administered on 09/19/18 08:40; Admin Dose 1 CAP; Start 09/08/18 at 12:00 Promethazine HCl/ Codeine (Phenergan/ Codeine) 10 ml Q4H PRN PO COUGH Last administered on 09/19/18 00:51; Admin Dose 10 ML; Start 09/09/18 at 17:30 Cholecalciferol (Vitamin D) 2,000 unit DAILY PO Last administered on 09/19/18 08:40; Admin Dose 2,000 UNIT; Start 09/13/18 at 09:00 Diphenhydramine HCl (Benadryl) 50 mg Q4 PRN IV ITCHING Last administered on 09/19/18 11:17; Admin Dose 50 MG; Start 09/10/18 at 13:00 Levothyroxine Sodium (Synthroid) 50 mcg BEFORE BREAKFAST PO Last administered on 09/19/18 06:11; Admin Dose 50 MCG; Start 09/13/18 at 07:00 Lorazepam (Ativan) 2 mg Q6 PRN IV Anxiety Last administered on 09/19/18 10:13; Admin Dose 2 MG; Start 09/10/18 at 13:00 Methadone HCl (Methadone Liq) 1 mg TID PO Last administered on 09/19/18 12:04; Admin Dose 1 MG; Start 09/11/18 at 21:00 Hydromorphone HCl (Dilaudid) 1 mg Q4H PRN IV SEVERE PAIN LEVEL 7-10 Last administered on 09/19/18 11:17; Admin Dose 1 MG; Start 09/11/18 at 22:00 Pantoprazole (Protonix Tab) 40 mg DAILY@06 PO Last administered on 09/19/18 06:11; Admin Dose 40 MG; Start 09/13/18 at 06:00 Alteplase, Recombinant (Cathflo (Activase)) 2 mg MAY REPEAT X1 PRN CATHETER IF CATHETER REMAINS OCCULUDED Last administered on 2/24/19at 12:03; Admin Dose 2 MG; Start 09/19/18 at 01:30 Linezolid 300 ml @ 300 mls/hr Q12H IVPB Last administered on 09/19/18at 08:41; Admin Dose 300 MLS/HR; Start 09/19/18 at 05:00 Zinc Sulfate (Zinc Sulfate) 220 mg DAILY PO ; Start 09/20/18 at 09:00 SULEMA WRIGHT Sep 19, 2018 13:15
[2018-09-19 14:43] VITALS: BP 94/55; PULSE 88; RESP 18
[2018-09-19 20:00] VITALS: BP 101/53; PULSE 85; RESP 19
[2018-09-19] MEDS: MEROPENEM 1 GM/50ML(PMX) 50 ML IVPB SCH (22:21)
[2018-09-19] MEDS: DAPTOMYCIN 500 MG in SOD CHLORIDE 0.9% 100 ML IVPB SCH (23:16)
--- NOTE | 2018-09-19 23:19 | CONS ---
Assessment/Plan Assessment/Plan Hospital Course (Demo Recall) sepsis, endovascular infection - recurrent sepsis 09/19/2018: fever and tachycardia, lactic acid>2 - s/p sepsis d/t bacteremia - fever and tachycardia resolved - bacteremia d/t Coag Neg Staph and Stenotrophomonas maltophilia on 09/01/2018 and 09/02/2018; repeat blood cultures 09/04/18 negative. - h/o "bacteremia due to enterococci" according to progress notes at [facility], but the actual microbiology report indicated blood culture was positive for ESBL+E. coli - h/o fungemia due to kaley glabrata, sensitive to fluconazole and to micafungin/caspofungin at [facility] - TTE done 09/04/18 showed no mention of valvular vegetations; EF 55-60% pulm - persistent hemoptysis of unknown etiology: Pt reports negative PPD at [facility] - according to the microbiology report at [facility], Pt had ESBL+E. coli in her respiratory culture. Sputum cultures for AFB and fungi were negative at 8 weeks and at 4 weeks respectively at [facility] - Pt had negative bronchoscopy in 05/2018 at [facility], anoth er at [facility] in 2018, and on 08/25/2018 at [facility] (no e/o bronchial airway bleeding according to Dr. Bello) - Numerous tiny lung nodules, increased in number from the chest CT dated May 22, 2018, with largest measuring 0.3 cm in the left apex-->follow up CT on 09/10/2018 indicated: stable bilateral micronodules dating back to examination of at least 01/29/2017; RLL fibrosis. - Kaley albicans in sputum cx on 08/28/2018 - likely colonizer - so far: aspergillus antibody not detected, HIV negative, coccidioidomycosis serology negative, TB Quant Gold negative, 1,3 beta d glucan negative, procalc 09/01/18 was 0.30; Sputum for O&P was negative GI - Delgado-colitis per CT 08/13/18 - S/p diarrhea on 09/06/18 - s/p EGD on 09/10/2018: no GI bleeding noted, reportedly completely normal - S/p sigmoidoscopy with biopsy 08/17/2018; path showed no e/o colitis or malignancy from transverse colon and rectum biopsies - S/p bloody diarrhea d/t Giardia; Pt took metronidazole for Giardia (08/14/2018- 08/21/2018) in 07/2018. - H/o C diff toxin negative PCR positive status at [facility]. Took a course of Fidaxomyxin x 10 days. C. diff was negative on 08/14/2018 at [facility] - H/o cholecystectomy - Stool for O&P was negative 09/12/18 heme/oncology - recurrent DVT despite IVC filter: DVT of R proximal mid femoral veins, partial DVT of R distal femoral vein on [facility] 09/19/2018 - S/p CT guided bone marrow aspiration and biopsy 08/20/2018 - Microcytic anemia requiring PRBC d/t acute blood loss - Electrophoresis 08/19/18 showed: Evaluation suggests beta thalassemia trait with anemia. Iron deficiency must be ruled out. - H/o BUE and RLE DVT, s/p IVC filter in January 2018 - H/o Hodgkin lymphoma diagnosed in 2006 - H/o thyroid CA diagnosed in 2005, s/p resection, chemo and XRT - IVC filter placement - Patient reports that approximately 2 years ago (2017?) she had an abnormal mammogram of Left breast and that she was scheduled for a biopsy approximately 4 months ago but d/t insurance change did not receive the biopsy, on 09/13/18 patient reported brown drainage from left nipple x2 nights - +Family hx of cancer (father of stomach CA, mother of lymphoma, paternal uncle had breast CA and 12 yo daughter has h/o brain tumor s/p surgery and resulting blindness) , renal - h/o UTI due to ESBL+E. coli - S/p PO levofloxacin (08/24/2018-08/28/2018) for probable UTI other conditions - s/p a painful ulcer at frenulum, resolving. According to Pt, topical steroid would worsen the pain. HIV negative, RPR non reactive, herpes 1 and 2 by PCR not detected; s/p trial of PO valacyclovir (08/27/2018-09/01/2018) - s/p bilateral conjunctivitis - improved s/p Cipro eye drops (08/18/18-08/23/18) - myalgia with hemoptysis, CK level stable (<20 on 09/03/2018, 39 on 09/10/2018, and <20 on 09/17/2018) - Hypothyroidism - HLD - S/p hypokalemia - OA - depression/anxiety - H/o x2 - Allergy to PCN and vancomycin (reaction unknown) Previously Pt took: daptomycin (09/02/2018-09/17/2018, 09/19/2018-), levofloxacin (08/25/18-08/27/2018, 09/05/2018-09/18/2018), cefepime (09/03/18 - 09/05/18). Recommendations: - ordered/pending: cultures of blood, urine and sputum - restart daptomycin and meropenem (09/19/2018-) - will check CK level in AM management was d/w patient, RN Consultation Date/Type/Reason Admit Date/Time Aug 13, 2018 at 17:22 Initial Consult Date 08/19/18 Type of Consult ID Requesting Provider: SHAQUILLE HARRIS Date/Time of Note DATE: 09/19/18 TIME: 23:12 24 HR Interval Summary Constitutional: other (weak) Detailed Summary Respiratory: No shortness of breath Gastrointestinal: No diarrhea, No nausea Genitourinary: No dysuria Musculoskeletal: other (myalgia) Exam/Review of Systems Exam Vitals Vital Signs Date Temp Pulse Resp B/P (MAP) Pulse Ox O2 O2 Flow FiO2 Time Delivery Rate 09/19/18 99.1 85 19 101/53 85 20:00 (69) 09/19/18 Room Air 14:43 Intake and Output 09/18/18 09/18/18 09/19/18 1515:00 23:00 07:00 IntakeIntake Total 720 ml 400 ml 1645 ml OutputOutput Total 50 ml 100 ml 100 ml BalanceBalance 670 ml 300 ml 1545 ml Constitutional: frail Psych: other (sad affect) Head: normocephalic, atraumatic Eyes: nl conjunctiva, nl lids ENMT: nl external ears & nose, nl nasal mucosa & septum Neck: other (not swollen) Respiratory: other (normal resp effort) Cardiovascular: edema Extremities: edema Neurological: lethargic Skin: No rash or lesions Results Result Diagram: 09/19/18 0339 09/19/18 0339 Results 24hrs Laboratory Tests Test 09/19/18 03:39 09/19/18 05:43 09/19/18 08:18 09/19/18 14:00 White Blood Count 6.5 # Red Blood Count 3.26 L Hemoglobin 8.1 L Hematocrit 25.4 L Mean Corpuscular 77.9 L Volume Mean Corpuscular 24.8 L Hemoglobin Mean Corpuscular 31.9 L Hemoglobin Concent Red Cell 18.5 H Distribution Width Platelet Count 184 Mean Platelet Volume 10.8 H Immature 1.100 H Granulocytes % Neutrophils % 82.7 H Lymphocytes % 11.2 L Monocytes % 3.4 Eosinophils % 1.1 Basophils % 0.5 Nucleated Red Blood 0.8 H Cells % Immature 0.070 H Granulocytes # Neutrophils # 5.4 Lymphocytes # 0.7 L Monocytes # 0.2 L Eosinophils # 0.1 Basophils # 0.0 Nucleated Red Blood 0.1 H Cells # Sodium Level 140 Potassium Level 3.6 Chloride Level 103 Carbon Dioxide Level 25 Anion Gap 12 Blood Urea Nitrogen 12 Creatinine 0.49 Est Glomerular > 60 Filtrat Rate mL/min Glucose Level 122 Lactic Acid Level 3.2 *H 1.6 Calcium Level 9.3 Total Bilirubin 0.5 Direct Bilirubin 0.00 Indirect Bilirubin 0.5 Aspartate Amino 31 Transf (AST/SGOT) Alanine 21 Aminotransferase (AL T/SGPT) Alkaline Phosphatase 83 Total Protein 6.3 Albumin 3.8 Globulin 2.50 Albumin/Globulin 1.52 Ratio Erythrocyte 24 Sedimentation Rate C-Reactive Protein 2.7 H Urine Color STRAW Urine Clarity CLEAR Urine pH 6.0 Urine Specific 1.006 [place] Urine Ketones NEGATIVE Urine Nitrite NEGATIVE Urine Bilirubin NEGATIVE Urine Urobilinogen NEGATIVE Urine Leukocyte NEGATIVE Esterase Urine Microscopic 1 RBC Urine Microscopic 5 WBC Urine Squamous FEW Epithelial Cells Urine Bacteria FEW A Urine Hemoglobin 1+ H Urine Glucose NEGATIVE Urine Total Protein NEGATIVE Test 09/19/18 14:06 Lactic Acid Level 3.3 *H Medications Medication Current Medications IV Flush (NS 3 ml) 3 ml PER PROTOCOL IV ; Start 08/13/18 at 20:00 Ondansetron HCl (Zofran Inj) 4 mg Q6H PRN IV NAUSEA AND/OR VOMITING Last administered on 09/13/18at 00:30; Admin Dose 4 MG; Start 08/13/18 at 20:00 Glucose (Glutose) 15 gm Q15M PRN PO DECREASED GLUCOSE; Start 08/17/18 at 10:30 Glucose (Glutose) 22.5 gm Q15M PRN PO DECREASED GLUCOSE; Start 08/17/18 at 10:30 Dextrose (D50w Syringe) 25 ml Q15M PRN IV DECREASED GLUCOSE; Start 08/17/18 at 10:30 Dextrose (D50w Syringe) 50 ml Q15M PRN IV DECREASED GLUCOSE; Start 08/17/18 at 10:30 Glucagon (Glucagen) 1 mg Q15M PRN IM DECREASED GLUCOSE; Start 08/17/18 at 10:30 Glucose (Glutose) 15 gm Q15M PRN BUCCAL DECREASED GLUCOSE; Start 08/17/18 at 10:30 Zolpidem Tartrate (Ambien) 10 mg QHS PRN PO INSOMNIA Last administered on 08/28 21:05; Admin Dose 10 MG; Start 08/20/18 at 11:30 Phenol (Cepastat Lozenge) 1 lozenge Q1H PRN MT THROAT PAIN Last administered on 09/17/18 10:37; Admin Dose 1 LOZENGE; Start 08/21/18 at 11:00 Acetaminophen (Tylenol Tab) 500 mg Q6H PRN PO MILD PAIN(1-3)OR ELEVATED TEMP Last administered on 09/19/18 10:13; Admin Dose 500 MG; Start 09/01/18 at 18:30 Lidocaine (Xylocaine (Viscous)) 15 ml QID PRN PO Pain in the mouth; Start 09/02/18 at 10:30 Trazodone HCl (Desyrel) 50 mg BID PO Last administered on 09/19/18 21:03; Admin Dose 50 MG; Start 09/08/18 at 12:30 Lactobacillus Acidophilus/ Rhamnosus (Culturelle) 1 cap BID PO Last administered on 09/19/18 21:03; Admin Dose 1 CAP; Start 09/08/18 at 12:00 Promethazine HCl/ Codeine (Phenergan/ Codeine) 10 ml Q4H PRN PO COUGH Last administered on 09/19/18 00:51; Admin Dose 10 ML; Start 09/09/18 at 17:30 Cholecalciferol (Vitamin D) 2,000 unit DAILY PO Last administered on 09/19/18 08:40; Admin Dose 2,000 UNIT; Start 09/13/18 at 09:00 Diphenhydramine HCl (Benadryl) 50 mg Q4 PRN IV ITCHING Last administered on 09/19/18 19:27; Admin Dose 50 MG; Start 09/10/18 at 13:00 Levothyroxine Sodium (Synthroid) 50 mcg BEFORE BREAKFAST PO Last administered on 09/19/18 06:11; Admin Dose 50 MCG; Start 09/13/18 at 07:00 Lorazepam (Ativan) 2 mg Q6 PRN IV Anxiety Last administered on 09/19/18 22:21; Admin Dose 2 MG; Start 09/10/18 at 13:00 Methadone HCl (Methadone Liq) 1 mg TID PO Last administered on 09/19/18 21:03; Admin Dose 1 MG; Start 09/11/18 at 21:00 Hydromorphone HCl (Dilaudid) 1 mg Q4H PRN IV SEVERE PAIN LEVEL 7-10 Last admini stered on 09/19/18 19:27; Admin Dose 1 MG; Start 09/11/18 at 22:00 Pantoprazole (Protonix Tab) 40 mg DAILY@06 PO Last administered on 09/19/18 06:11; Admin Dose 40 MG; Start 09/13/18 at 06:00 Alteplase, Recombinant (Cathflo (Activase)) 2 mg MAY REPEAT X1 PRN CATHETER IF CATHETER REMAINS OCCULUDED Last administered on 09/19/18 15:32; Admin Dose 2 MG; Start 09/19/18 at 01:30 Zinc Sulfate (Zinc Sulfate) 220 mg DAILY PO ; Start 09/20/18 at 09:00 Meropenem/Sodium Chloride 50 ml @ 100 mls/hr Q8 IVPB Last administered on 09/19/18 22:21; Admin Dose 100 MLS/HR; Start 09/19/18 at 22:00 Daptomycin 500 mg/ Sodium Chloride 100 ml @ 200 mls/hr Q24H IVPB ; Start 09/19/18 at 23:00 REGINA CARRASCO M.D. Sep 19, 2018 23:19
[2018-09-20 01:56] VITALS: BP 103/54; PULSE 88; RESP 18
[2018-09-20] MEDS: DIPHENHYDRAMINE 50 MG INJ IV PRN ×5 (03:10→21:43)
[2018-09-20] MEDS: HYDROmorphONE 1 MG/ML SYG IV PRN ×5 (03:11→21:44)
[2018-09-20] MEDS: PANTOPRAZOLE (EC) 40 MG TAB PO SCH (05:49)
[2018-09-20] MEDS: LEVOTHYROXINE 50 MCG TAB PO SCH (05:49)
[2018-09-20] MEDS: MEROPENEM 1 GM/50ML(PMX) 50 ML IVPB SCH ×3 (05:49→21:13)
[2018-09-20 07:25] VITALS: BP 97/56; PULSE 92; RESP 18
[2018-09-20] MEDS: LACTOBACILLUS RHAMNOSUS CAP PO SCH ×2 (08:36→21:13)
[2018-09-20] MEDS: ZINC SULFATE 220 MG CAP PO SCH (08:36)
[2018-09-20] MEDS: traZODone 50 MG TAB PO SCH ×2 (08:36→21:13)
[2018-09-20] MEDS: CHOLECALCIFEROL 2,000 UNIT CAP PO SCH (08:36)
[2018-09-20] MEDS: METHADONE (1 MG/ML 5 ML PO UD SYG) PO SCH ×3 (08:37→21:13)
[2018-09-20] MEDS: LORAZEPAM 2 MG INJ IV PRN ×3 (08:42→23:55)
--- NOTE | 2018-09-20 13:42 | PN ---
Date/Time of Note Date/Time of Note DATE: 09/20/18 TIME: 13:37 Assessment/Plan VTE Prophylaxis Risk score (from Nsg)>0 risk: 5 SCD applied (from Nsg): Yes SCD contraindicated: DVT Pharmacological prophylaxis: NA/contraindicated Pharm contraindication: bleeding Lines/Catheters IV Catheter Type (from Nrsg): PICC Line Central line still needed: Yes Urinary Cath still in place: No Assessment/Plan Hospital Course Hospital course: Initially evaluated for abdominal pain and diarrhea. C. d ifficile negative. Next is an issue was hemoptysis vs hematemesis. Patient was seen by GI and pulmonary. Bronchoscopy and EGD/ colonoscopy was negative for any acute process. Patient was seen by ENT and mild epistaxis was seen but could not account for the bleed. Laryngoscopy done. She was evaluated by the hematology Patient does not have any coagulopathy. CAT scan chest, CAT scan angiogram chest were both unremarkable. Patient was transfused at least 6 units of blood while admitted. Patient underwent repeat EGD and no active bleed seen. Patient is now scheduled for a bubble study. Plan is to transfer to tertiary care for evaluated hemoptysis of unknown etiology. The patient was reluctant yesterday and asked for a hospice consult for some reason, but however today agrees for tertiary care eval. In terms of the bacteremia. Patient will continue daptomycin until the . Levaquin till . Please see ID note for additional details. Additionally seen by behavioral health pain management. Patient has pain seeking behavior. Manipulates staff to get Dilaudid prior to doing investigational studies or agreeing to medical care plan. I attempted to contact family and give them an update but there is nobody available at bedside or over the phone. I am unable to confirm patient's story of possible thyroid cancer. Or lymphoma. There is an old document stating the patient once told the physician that she has uterine cancer. Patient was following with with [facility] clinic and her paps were unremarkable. Patient's recent oncologist? was in [place] but now that her insurance has changed, she will need a new specialist. A/P 1. Hemoptysis vs Hematemesis? bronch/ egd (twice) & laryngoscopy (09/01): [facility]. Past egd/bronch in [place] [facility]. No path lesions/ scars. No bleeding diathesis. Refused tertiary eval in the past, but presently accepting transfer to [facility]. - Vasculitis, avm? CTA, echo with bubble study -ve. Bronch/ angiogram? 2. H/o HL 08? chemo/ xrt; repeat chemo [facility]. Saw an Onco in [place] last year. Sp BmBx-appears negative. 3. Ho PE/ Dvt, ivc filter in place. states done at [facility] for bilat upp er ext DVT 4. Diarrhea/ giardia; Rxed; however occ diarrhea noted. sp colonoscopy 08/17: patchy colitis 5. Past h/o c diff 6. H/o thyroid nodule/ cancer; ? sp doug in [place]? 5. UTI 6. H/o H pylori; EGD- 'ulcers' within the last year. Current EGD -ve. 7. Cons bacteremia 09/01. Stenotrophomonas maltophilia bacteremia. 09/03: 2D -ve for veg. Source colon? Recent colon didnt show any mass/ cancer. Immunosuppressed? 8. Anemia; beta thalassemia trait; sp bone marrow 08/20 negative; spep ordered; but done/ -ve in the past too. 9. Chr pain syndrome. Pain seeking behavior. will try to manipulate staff for narcotics prior to medical care. 10. Prediabetes? 11. Ulcer of the frenulum linguae. 12. Ftt, stable discharge to snf at some point. Presently going to [facility] 13. Pulmonary nodules, stable, present back in ; observe. Repeat imaging in 3 months. QGold -ve. Appreciate ID assistance 14. Fibromyalgia 15. Repeat sepsis/bacteremia gram-negative bacilli. Source? Continue broad- spectrum antibiotics. 16. Rt lwr ext DVT, not a candidate for anticoagulation. Stable, cont IVCf status. S: 08/23 feels ok; still bleeding. no dyspnea/ fever 08/24: Events noted still having hemoptysis. No hematuria 08/25: Hemoptysis again this morning? Patient denies any hematemesis or epistaxis 08/26: Recurrent hemoptysis this morning. No dyspnea fever 08/27: Still having hemoptysis? No hematochezia melena hematuria or epistaxis. No dyspnea fever. 08/28: Events noted. She is worried about her hemoptysis. 08/29: Still bringing out a lot of blood. Hemoptysis versus hematemesis. Chronic stable we will consult GI. 09/06: Intermittent hemoptysis. Now having diarrhea without any GI bleed. No fevers. 09/07: Intermittent hemoptysis. Denies any fever vomiting GI bleed. No dyspnea. Does not have a regular oncologist and no outpatient support. Will need snf 09/08: 4 bouts diarrhea. no n/f. 'pain' in legs, abd. no known agg/rel factors. toradol- headache? no h/o rash/ dyspnea 09/09: Hemoptysis noted again. 77 m? [employer], vss. crying, but refusing working/ cxr. Denies any chest pain postnasal drip. No GI bleed. States of having lower abd/ suprapubic tenderness but no dysuria hematuria. Back pain upper/ around her shoulder blades. 09/10: coughing/ vomiting blood. 'pain', lwr abd/ back. now placed in front of nursing station 09/11: hemoptysis noted. Refuses therapy/ studies without dilaudid. Threatened to pull out picc. For tertiary eval. 09/12: no events 09/20: Fever blood cultures noted. Hemoptysis for for blood transfusion. O: vss PE No pallor. Throat clear, adentous Reg s1s2 no mrg Clear Benign, nt; nd; no RRG No edema/ Homens. lt picc c/d/i Result Diagram: 09/20/18 0551 09/20/18 0551 Results 24hrs Laboratory Tests Test 09/19/18 14:00 09/19/18 14:06 09/20/18 05:51 Urine Color STRAW Urine Clarity CLEAR Urine pH 6.0 Urine Specific [place] 1.006 Urine Ketones NEGATIVE Urine Nitrite NEGATIVE Urine Bilirubin NEGATIVE Urine Urobilinogen NEGATIVE Urine Leukocyte Esterase NEGATIVE Urine Microscopic RBC 1 Urine Microscopic WBC 5 Urine Squamous Epithelial Cells FEW Urine Bacteria FEW A Urine Hemoglobin 1+ H Urine Glucose NEGATIVE Urine Total Protein NEGATIVE Lactic Acid Level 3.3 *H White Blood Count 4.5 #L Red Blood Count 2.62 L Hemoglobin 6.5 *L Hematocrit 20.6 L Mean Corpuscular Volume 78.6 L Mean Corpuscular Hemoglobin 24.8 L Mean Corpuscular Hemoglobin Concent 31.6 L Red Cell Distribution Width 19.2 H Platelet Count 158 Mean Platelet Volume 10.2 Immature Granulocytes % 0.900 H Neutrophils % Segmented Neutrophils % (Manual) 68 Band Neutrophils % (Manual) 1 Lymphocytes % Lymphocytes % (Manual) 25 Reactive Lymphocytes % (Manual) 3 H Monocytes % Monocytes % (Manual) 1 Eosinophils % Eosinophils % (Manual) 2 Basophils % Nucleated Red Blood Cells % 0.0 Immature Granulocytes # 0.040 H Neutrophils # Neutrophils # (Manual) 3.1 Band Neutrophils # 0.0 Lymphocytes (Manual) 1.1 Lymphocytes # Reactive Lymphocytes # 0.1 H Monocytes # Monocytes # (Manual) 0.0 L Eosinophils # Basophils # Nucleated Red Blood Cells # Platelet Estimate NORMAL Polychromasia 3+ Hypochromasia 1+ Poikilocytosis 1+ Anisocytosis 2+ Microcytosis 2+ Macrocytosis 2+ Tear Drop Cells 1+ Stomatocytes 1+ Elliptocytes 1+ Sodium Level 141 Potassium Level 3.7 Chloride Level 108 Carbon Dioxide Level 26 Anion Gap 7 Blood Urea Nitrogen 11 Creatinine 0.45 Est Glomerular Filtrat Rate mL/min > 60 Glucose Level 87 Calcium Level 8.4 Phosphorus Level 4.9 Magnesium Level 2.0 Creatine Kinase < 20 L Exam/Review of Systems Exam Vitals Vital Signs Date Temp Pulse Resp B/P (MAP) Pulse Ox O2 O2 Flow FiO2 Time Delivery Rate 09/20/18 98.9 92 18 97/56 (70) 96 07:25 09/19/18 Room Air 14:43 Intake and Output 09/19/18 09/19/18 09/20/18 1515:00 23:00 07:00 IntakeIntake Total 800 ml 1120 ml 200 ml BalanceBalance 800 ml 1120 ml 200 ml Results Results 24hrs Laboratory Tests Test 09/19/18 14:00 09/19/18 14:06 09/20/18 05:51 Urine Color STRAW Urine Clarity CLEAR Urine pH 6.0 Urine Specific [place] 1.006 Urine Ketones NEGATIVE Urine Nitrite NEGATIVE Urine Bilirubin NEGATIVE Urine Urobilinogen NEGATIVE Urine Leukocyte Esterase NEGATIVE Urine Microscopic RBC 1 Urine Microscopic WBC 5 Urine Squamous Epithelial Cells FEW Urine Bacteria FEW A Urine Hemoglobin 1+ H Urine Glucose NEGATIVE Urine Total Protein NEGATIVE Lactic Acid Level 3.3 *H White Blood Count 4.5 #L Red Blood Count 2.62 L Hemoglobin 6.5 *L Hematocrit 20.6 L Mean Corpuscular Volume 78.6 L Mean Corpuscular Hemoglobin 24.8 L Mean Corpuscular Hemoglobin Concent 31.6 L Red Cell Distribution Width 19.2 H Platelet Count 158 Mean Platelet Volume 10.2 Immature Granulocytes % 0.900 H Neutrophils % Segmented Neutrophils % (Manual) 68 Band Neutrophils % (Manual) 1 Lymphocytes % Lymphocytes % (Manual) 25 Reactive Lymphocytes % (Manual) 3 H Monocytes % Monocytes % (Manual) 1 Eosinophils % Eosinophils % (Manual) 2 Basophils % Nucleated Red Blood Cells % 0.0 Immature Granulocytes # 0.040 H Neutrophils # Neutrophils # (Manual) 3.1 Band Neutrophils # 0.0 Lymphocytes (Manual) 1.1 Lymphocytes # Reactive Lymphocytes # 0.1 H Monocytes # Monocytes # (Manual) 0.0 L Eosinophils # Basophils # Nucleated Red Blood Cells # Platelet Estimate NORMAL Polychromasia 3+ Hypochromasia 1+ Poikilocytosis 1+ Anisocytosis 2+ Microcytosis 2+ Macrocytosis 2+ Tear Drop Cells 1+ Stomatocytes 1+ Elliptocytes 1+ Sodium Level 141 Potassium Level 3.7 Chloride Level 108 Carbon Dioxide Level 26 Anion Gap 7 Blood Urea Nitrogen 11 Creatinine 0.45 Est Glomerular Filtrat Rate mL/min > 60 Glucose Level 87 Calcium Level 8.4 Phosphorus Level 4.9 Magnesium Level 2.0 Creatine Kinase < 20 L Medications Medication Current Medications IV Flush (NS 3 ml) 3 ml PER PROTOCOL IV ; Start 08/13/18 at 20:00 Ondansetron HCl (Zofran Inj) 4 mg Q6H PRN IV NAUSEA AND/OR VOMITING Last administered on 09/13/18at 00:30; Admin Dose 4 MG; Start 08/13/18 at 20:00 Glucose (Glutose) 15 gm Q15M PRN PO DECREASED GLUCOSE; Start 08/17/18 at 10:30 Glucose (Glutose) 22.5 gm Q15M PRN PO DECREASED GLUCOSE; Start 08/17/18 at 10:30 Dextrose (D50w Syringe) 25 ml Q15M PRN IV DECREASED GLUCOSE; Start 08/17/18 at 10:30 Dextrose (D50w Syringe) 50 ml Q15M PRN IV DECREASED GLUCOSE; Start 08/17/18 at 10:30 Glucagon (Glucagen) 1 mg Q15M PRN IM DECREASED GLUCOSE; Start 08/17/18 at 10:30 Glucose (Glutose) 15 gm Q15M PRN BUCCAL DECREASED GLUCOSE; Start 08/17/18 at 10:30 Zolpidem Tartrate (Ambien) 10 mg QHS PRN PO INSOMNIA Last administered on 09/19/18 21:05; Admin Dose 10 MG; Start 08/20/18 at 11:30 Phenol (Cepastat Lozenge) 1 lozenge Q1H PRN MT THROAT PAIN Last administered on 09/17/18 10:37; Admin Dose 1 LOZENGE; Start 08/21/18 at 11:00 Acetaminophen (Tylenol Tab) 500 mg Q6H PRN PO MILD PAIN(1-3)OR ELEVATED TEMP Last administered on 09/19/18 10:13; Admin Dose 500 MG; Start 09/01/18 at 18:30 Lidocaine (Xylocaine (Viscous)) 15 ml QID PRN PO Pain in the mouth; Start 09/02/18 at 10:30 Trazodone HCl (Desyrel) 50 mg BID PO Last administered on 09/20/18 08:36; Admin Dose 50 MG; Start 09/08/18 at 12:30 Lactobacillus Acidophilus/ Rhamnosus (Culturelle) 1 cap BID PO Last administered on 09/20/18 08:36; Admin Dose 1 CAP; Start 09/08/18 at 12:00 Promethazine HCl/ Codeine (Phenergan/ Codeine) 10 ml Q4H PRN PO COUGH Last administered on 09/19/18 00:51; Admin Dose 10 ML; Start 09/09/18 at 17:30 Cholecalciferol (Vitamin D) 2,000 unit DAILY PO Last administered on 09/20/18 08:36; Admin Dose 2,000 UNIT; Start 09/13/18 at 09:00 Diphenhydramine HCl (Benadryl) 50 mg Q4 PRN IV ITCHING Last administered on 09/20/18 11:45; Admin Dose 50 MG; Start 09/10/18 at 13:00 Levothyroxine Sodium (Synthroid) 50 mcg BEFORE BREAKFAST PO Last administered on 09/20/18 05:49; Admin Dose 50 MCG; Start 09/13/18 at 07:00 Lorazepam (Ativan) 2 mg Q6 PRN IV Anxiety Last administered on 09/20/18 08:42; Admin Dose 2 MG; Start 09/10/18 at 13:00 Methadone HCl (Methadone Liq) 1 mg TID PO Last administered on 09/20/18 13:12; Admin Dose 1 MG; Start 09/11/18 at 21:00 Hydromorphone HCl (Dilaudid) 1 mg Q4H PRN IV SEVERE PAIN LEVEL 7-10 Last administered on 09/20/18 11:46; Admin Dose 1 MG; Start 09/11/18 at 22:00 Pantoprazole (Protonix Tab) 40 mg DAILY@06 PO Last administered on 09/20/18 05:49; Admin Dose 40 MG; Start 09/13/18 at 06:00 Alteplase, Recombinant (Cathflo (Activase)) 2 mg MAY REPEAT X1 PRN CATHETER IF CATHETER REMAINS OCCULUDED Last administered on 09/19/18 15:32; Admin Dose 2 MG; Start 09/19/18 at 01:30 Zinc Sulfate (Zinc Sulfate) 220 mg DAILY PO Last administered on 09/20/18 08:36; Admin Dose 220 MG; Start 09/20/18 at 09:00 Meropenem/Sodium Chloride 50 ml @ 100 mls/hr Q8 IVPB Last administered on 09/20/18 05:49; Admin Dose 100 MLS/HR; Start 09/19/18 at 22:00 Daptomycin 500 mg/ Sodium Chloride 100 ml @ 200 mls/hr Q24H IVPB Last admini stered on 09/19/18 23:16; Admin Dose 200 MLS/HR; Start 09/19/18 at 23:00 LEON CORONA MD Sep 20, 2018 13:42
--- NOTE | 2018-09-20 14:04 | CONS ---
Consult Date/Type/Reason Admit Date/Time Aug 13, 2018 at 17:22 Initial Consult Date 08/19/18 Type of Consult Pulmonary Requesting Provider: SHAQUILLE HARRIS Date/Time of Note DATE: 09/20/18 TIME: 13:56 Subjective No significant changes still having hemoptysis. Pending transfer to [facility]. Objective Vital Signs Date Temp Pulse Resp B/P (MAP) Pulse Ox O2 O2 Flow FiO2 Time Delivery Rate 09/20/18 98.9 92 18 97/56 (70) 96 07:25 09/19/18 Room Air 14:43 Intake and Output 09/19/18 09/19/18 09/20/18 1515:00 23:00 07:00 IntakeIntake Total 800 ml 1120 ml 200 ml BalanceBalance 800 ml 1120 ml 200 ml Exam GENERAL: Well-nourished well-developed lady receiving packed red blood cell transfusion. VITAL SIGNS: per chart NECK: Supple. No JVD or lymphadenopathy. CARDIAC EXAM: S1, S2. No added sounds or murmurs. CHEST: clear bilaterally, No added sounds, rales or wheezes ABDOMEN: Soft, nontender. No guarding or rebound. EXTREMITIES: No cyanosis, clubbing or edema. NEUROLOGIC: Generalized weakness. No focal deficits. Vent Setting Fraction of Inspired Oxygen pe: 21 Results/Medications Result Diagram: 09/20/18 0551 09/20/18 0551 Results 24 hrs Laboratory Tests Test 09/19/18 14:00 09/19/18 14:06 09/20/18 05:51 Urine Color STRAW Urine Clarity CLEAR Urine pH 6.0 Urine Specific [place] 1.006 Urine Ketones NEGATIVE Urine Nitrite NEGATIVE Urine Bilirubin NEGATIVE Urine Urobilinogen NEGATIVE Urine Leukocyte Esterase NEGATIVE Urine Microscopic RBC 1 Urine Microscopic WBC 5 Urine Squamous Epithelial Cells FEW Urine Bacteria FEW A Urine Hemoglobin 1+ H Urine Glucose NEGATIVE Urine Total Protein NEGATIVE Lactic Acid Level 3.3 *H White Blood Count 4.5 #L Red Blood Count 2.62 L Hemoglobin 6.5 *L Hematocrit 20.6 L Mean Corpuscular Volume 78.6 L Mean Corpuscular Hemoglobin 24.8 L Mean Corpuscular Hemoglobin Concent 31.6 L Red Cell Distribution Width 19.2 H Platelet Count 158 Mean Platelet Volume 10.2 Immature Granulocytes % 0.900 H Neutrophils % Segmented Neutrophils % (Manual) 68 Band Neutrophils % (Manual) 1 Lymphocytes % Lymphocytes % (Manual) 25 Reactive Lymphocytes % (Manual) 3 H Monocytes % Monocytes % (Manual) 1 Eosinophils % Eosinophils % (Manual) 2 Basophils % Nucleated Red Blood Cells % 0.0 Immature Granulocytes # 0.040 H Neutrophils # Neutrophils # (Manual) 3.1 Band Neutrophils # 0.0 Lymphocytes (Manual) 1.1 Lymphocytes # Reactive Lymphocytes # 0.1 H Monocytes # Monocytes # (Manual) 0.0 L Eosinophils # Basophils # Nucleated Red Blood Cells # Platelet Estimate NORMAL Polychromasia 3+ Hypochromasia 1+ Poikilocytosis 1+ Anisocytosis 2+ Microcytosis 2+ Macrocytosis 2+ Tear Drop Cells 1+ Stomatocytes 1+ Elliptocytes 1+ Sodium Level 141 Potassium Level 3.7 Chloride Level 108 Carbon Dioxide Level 26 Anion Gap 7 Blood Urea Nitrogen 11 Creatinine 0.45 Est Glomerular Filtrat Rate mL/min > 60 Glucose Level 87 Calcium Level 8.4 Phosphorus Level 4.9 Magnesium Level 2.0 Creatine Kinase < 20 L Medications Current Medications IV Flush (NS 3 ml) 3 ml PER PROTOCOL IV ; Start 08/13/18 at 20:00 Ondansetron HCl (Zofran Inj) 4 mg Q6H PRN IV NAUSEA AND/OR VOMITING Last administered on 09/13/18at 00:30; Admin Dose 4 MG; Start 08/13/18 at 20:00 Glucose (Glutose) 15 gm Q15M PRN PO DECREASED GLUCOSE; Start 08/17/18 at 10:30 Glucose (Glutose) 22.5 gm Q15M PRN PO DECREASED GLUCOSE; Start 08/17/18 at 10:30 Dextrose (D50w Syringe) 25 ml Q15M PRN IV DECREASED GLUCOSE; Start 08/17/18 at 10:30 Dextrose (D50w Syringe) 50 ml Q15M PRN IV DECREASED GLUCOSE; Start 08/17/18 at 10:30 Glucagon (Glucagen) 1 mg Q15M PRN IM DECREASED GLUCOSE; Start 08/17/18 at 10:30 Glucose (Glutose) 15 gm Q15M PRN BUCCAL DECREASED GLUCOSE; Start 08/17/18 at 10:30 Zolpidem Tartrate (Ambien) 10 mg QHS PRN PO INSOMNIA Last administered on 09/19/18at 21:05; Admin Dose 10 MG; Start 08/20/18 at 11:30 Phenol (Cepastat Lozenge) 1 lozenge Q1H PRN MT THROAT PAIN Last administered on 09/17/18 10:37; Admin Dose 1 LOZENGE; Start 08/21/18 at 11:00 Acetaminophen (Tylenol Tab) 500 mg Q6H PRN PO MILD PAIN(1-3)OR ELEVATED TEMP Last administered on 09/19/18 10:13; Admin Dose 500 MG; Start 09/01/18 at 18:30 Lidocaine (Xylocaine (Viscous)) 15 ml QID PRN PO Pain in the mouth; Start 09/02/18 at 10:30 Trazodone HCl (Desyrel) 50 mg BID PO Last administered on 09/20/18 08:36; Admin Dose 50 MG; Start 09/08/18 at 12:30 Lactobacillus Acidophilus/ Rhamnosus (Culturelle) 1 cap BID PO Last administered on 09/20/18 08:36; Admin Dose 1 CAP; Start 09/08/18 at 12:00 Promethazine HCl/ Codeine (Phenergan/ Codeine) 10 ml Q4H PRN PO COUGH Last administered on 09/19/18 00:51; Admin Dose 10 ML; Start 09/09/18 at 17:30 Cholecalciferol (Vitamin D) 2,000 unit DAILY PO Last administered on 09/20/18 08:36; Admin Dose 2,000 UNIT; Start 09/13/18 at 09:00 Diphenhydramine HCl (Benadryl) 50 mg Q4 PRN IV ITCHING Last administered on 09/20/18 11:45; Admin Dose 50 MG; Start 09/10/18 at 13:00 Levothyroxine Sodium (Synthroid) 50 mcg BEFORE BREAKFAST PO Last administered on 09/20/18 05:49; Admin Dose 50 MCG; Start 09/13/18 at 07:00 Lorazepam (Ativan) 2 mg Q6 PRN IV Anxiety Last administered on 09/20/18 08:42; Admin Dose 2 MG; Start 09/10/18 at 13:00 Methadone HCl (Methadone Liq) 1 mg TID PO Last administered on 09/20/18 13:12; Admin Dose 1 MG; Start 09/11/18 at 21:00 Pantoprazole (Protonix Tab) 40 mg DAILY@06 PO Last administered on 09/20/18 05:49; Admin Dose 40 MG; Start 09/13/18 at 06:00 Alteplase, Recombinant (Cathflo (Activase)) 2 mg MAY REPEAT X1 PRN CATHETER IF CATHETER REMAINS OCCULUDED Last administered on 09/19/18 15:32; Admin Dose 2 MG; Start 09/19/18 at 01:30 Zinc Sulfate (Zinc Sulfate) 220 mg DAILY PO Last administered on 09/20/18 08:36; Admin Dose 220 MG; Start 09/20/18 at 09:00 Meropenem/Sodium Chloride 50 ml @ 100 mls/hr Q8 IVPB Last administered on 09/20/18 05:49; Admin Dose 100 MLS/HR; Start 09/19/18 at 22:00 Daptomycin 500 mg/ Sodium Chloride 100 ml @ 200 mls/hr Q24H IVPB Last administered on 09/19/18 23:16; Admin Dose 200 MLS/HR; Start 09/19/18 at 23:00 Hydromorphone HCl (Dilaudid) 1 mg Q6 PRN IV SEVERE PAIN LEVEL 7-10; Start 09/20/18 at 14:00 Hydromorphone HCl (Dilaudid) 2 mg Q4H PRN PO SEVERE PAIN LEVEL 7-10; Start at 14:00 Assessment/Plan Hospital Course (Demo Recall) Assessment 1. History of recurrent hemoptysis unremarkable chest CT source unclear 2- prior bronchoscopies. Possible AVM, still with significant hemoptysis. 2. History of thyroid cancer 3. Apparent history of lymphoma in the past. Plan 1. Cardiac recs, echocardiogram appreciated no evidence of significant intra cardiac shunt 2. Monitor H&H, transfuse as needed. 3. Antidepressants Repeat chest x-ray unremarkable. No focal infiltrates or evidence of alveolar hemorrhage. Pending transfer to [facility]. MARGE GUZMAN MD, FCCP Sep 20, 2018 14:04
[2018-09-20 14:17] VITALS: BP 104/52; PULSE 85; RESP 18
[2018-09-20] MEDS: PROMETHAZINE/CODEINE 5ML CUP PO PRN ×2 (15:48→19:53)
--- NOTE | 2018-09-20 16:06 | CONS ---
Assessment/Plan Assessment/Plan Hospital Course (Demo Recall) sepsis, endovascular infection - recurrent sepsis 09/19/2018 due to bacteremia - recurrent bacteremia due to Gram negative rods - s/p sepsis d/t bacteremia - fever and tachycardia resolved - bacteremia d/t Coag Neg Staph and Stenotrophomonas maltophilia on 09/01/2018 and 09/02/2018; repeat blood cultures 09/04/18 negative. - h/o "bacteremia due to enterococci" according to progress notes at [facility], but the actual microbiology report indicated blood culture was positive for ESBL+E. coli - h/o fungemia due to kaley glabrata, sensitive to fluconazole and to micafungin/caspofungin at [facility] - TTE done 09/04/18 showed no mention of valvular vegetations; EF 55-60% pulm - persistent hemoptysis of unknown etiology: Pt reports negative PPD at [facility] - according to the microbiology report at [facility], Pt had ESBL+E. coli in her respiratory culture. Sputum cultures for AFB and fungi were negative at 8 weeks and at 4 weeks respectively at [facility] - Pt had negative bronchoscopy in 05/2018 at [facility], another at [facility] in 2018, and on 08/25/2018 at [facility] (no e/o bronchial airway bleeding according to Dr. Bello) - Numerous tiny lung nodules, increased in number from the chest CT dated May 22, 2018, with largest measuring 0.3 cm in the left apex-->follow up CT on 09/10/2018 indicated: stable bilateral micronodules dating back to examination of at least 01/29/2017; RLL fibrosis. - Kaley albicans in sputum cx on 08/28/2018 - likely colonizer - so far: aspergillus antibody not detected, HIV negative, coccidioidomycosis serology negative, TB Quant Gold negative, 1,3 beta d glucan negative, procalc 09/01/18 was 0.30; Sputum for O&P was negative GI - Delgado-colitis per CT 08/13/18 - S/p diarrhea on 09/06/18 - s/p EGD on 09/10/2018: no GI bleeding noted, reportedly completely normal - S/p sigmoidoscopy with biopsy 08/17/2018; path showed no e/o colitis or malignancy from transverse colon and rectum biopsies - S/p bloody diarrhea d/t Giardia; Pt took metronidazole for Giardia (08/14/2018-08/21/2018) in 07/2018. - H/o C diff toxin negative PCR positive status at [facility]. Took a course of Fidaxomyxin x 10 days. C. diff was negative on 08/14/2018 at [facility] - H/o cholecystectomy - Stool for O&P was negative 09/12/18 heme/oncology - recurrent DVT despite IVC filter: DVT of R proximal mid femoral veins, partial DVT of R distal femoral vein on SHARON 09/19/2018 - S/p CT guided bone marrow aspiration and biopsy 08/20/2018 - Microcytic anemia requiring PRBC d/t acute blood loss - Electrophoresis 08/19/18 showed: Evaluation suggests beta thalassemia trait with anemia. Iron deficiency must be ruled out. - H/o BUE and RLE DVT, s/p IVC filter in January 2018 - H/o Hodgkin lymphoma diagnosed in 2006 - H/o thyroid CA diagnosed in 2005, s/p resection, chemo and XRT - IVC filter placement - Patient reports that approximately 2 years ago (2017?) she had an abnormal mammogram of Left breast and that she was scheduled for a biopsy approximately 4 months ago but d/t insurance change did not receive the biopsy, on 09/13/18 patient reported brown drainage from left nipple x2 nights - +Family hx of cancer (father of stomach CA, mother of lymphoma, paternal uncle had breast CA and 12 yo daughter has h/o brain tumor s/p surgery and resulting blindness) , renal - h/o UTI due to ESBL+E. coli - S/p PO levofloxacin (08/24/2018-08/28/2018) for probable UTI other conditions - s/p a painful ulcer at frenulum, resolving. According to Pt, topical steroid would worsen the pain. HIV negative, RPR non reactive, herpes 1 and 2 by PCR not detected; s/p trial of PO valacyclovir (08/27/2018-09/01/2018) - s/p bilateral conjunctivitis - improved s/p Cipro eye drops (08/18/18-08/23/18) - myalgia with hemoptysis, CK level stable (<20 on 09/03/2018, 39 on 09/10/2018, and <20 on 09/17/2018) - Hypothyroidism - HLD - S/p hypokalemia - OA - depression/anxiety - H/o x2 - Allergy to PCN and vancomycin (reaction unknown) Previously Pt took: daptomycin (09/02/2018-09/17/2018, 09/19/2018-), levofloxacin (08/25/18-08/27/2018, 09/05/2018-09/18/2018), cefepime (09/03/18 - 09/05/18). Recommendations: - pending results: cultures of blood, urine. sputum culture was ordered but not done - ordered: repeat blood cultures in AM - continue daptomycin and meropenem (09/19/2018-). CK<20 on 09/20/2018 - once the gram negative bacteria are speciated, will de-escalate her antibiotic - remove PICC and use peripheral IV catheters if possible management was d/w patient, FERNANDO Alexander, left a message at Dr. Lopez Consultation Date/Type/Reason Admit Date/Time Aug 13, 2018 at 17:22 Initial Consult Date 08/19/18 Type of Consult ID Requesting Provider: SHAQUILLE HARRIS Date/Time of Note DATE: 09/20/18 TIME: 16:00 24 HR Interval Summary Constitutional: other (tremors of b/l hands) Detailed Summary Eyes: no complaints ENT: no complaints Respiratory: other (+hemoptysis) Cardiovascular: no complaints Gastrointestinal: no complaints Genitourinary: dysuria (had dysuria two days ago) Musculoskeletal: back pain Skin: no complaints Neurologic: no complaints Exam/Review of Systems Exam Vitals Vital Signs Date Temp Pulse Resp B/P (MAP) Pulse Ox O2 O2 Flow FiO2 Time Delivery Rate 09/20/18 98.2 85 18 104/52 100 14:17 (69) 09/19/18 Room Air 14:43 Intake and Output 09/19/18 09/19/18 09/20/18 1515:00 23:00 07:00 IntakeIntake Total 800 ml 1120 ml 200 ml BalanceBalance 800 ml 1120 ml 200 ml Constitutional: frail Psych: no complaints, other (sad affect) Head: normocephalic, atraumatic Eyes: nl conjunctiva, nl lids ENMT: nl external ears & nose, nl nasal mucosa & septum Neck: other (not swollen) Respiratory: clear to auscultation, normal air movement Cardiovascular: regular rate and rhythm, nl pulses Gastrointestinal: soft, non-tender; No tender Musculoskeletal: nl extremities to inspection Extremities: No edema Neurological: IMPROVEMENT NURSE II-XII intact, nl speech Skin: No rash or lesions Results Result Diagram: 09/20/18 0551 09/20/18 0551 Results 24hrs Laboratory Tests Test 09/20/18 05:51 White Blood Count 4.5 #L Red Blood Count 2.62 L Hemoglobin 6.5 *L Hematocrit 20.6 L Mean Corpuscular Volume 78.6 L Mean Corpuscular Hemoglobin 24.8 L Mean Corpuscular Hemoglobin Concent 31.6 L Red Cell Distribution Width 19.2 H Platelet Count 158 Mean Platelet Volume 10.2 Immature Granulocytes % 0.900 H Neutrophils % Segmented Neutrophils % (Manual) 68 Band Neutrophils % (Manual) 1 Lymphocytes % Lymphocytes % (Manual) 25 Reactive Lymphocytes % (Manual) 3 H Monocytes % Monocytes % (Manual) 1 Eosinophils % Eosinophils % (Manual) 2 Basophils % Nucleated Red Blood Cells % 0.0 Immature Granulocytes # 0.040 H Neutrophils # Neutrophils # (Manual) 3.1 Band Neutrophils # 0.0 Lymphocytes (Manual) 1.1 Lymphocytes # Reactive Lymphocytes # 0.1 H Monocytes # Monocytes # (Manual) 0.0 L Eosinophils # Basophils # Nucleated Red Blood Cells # Platelet Estimate NORMAL Polychromasia 3+ Hypochromasia 1+ Poikilocytosis 1+ Anisocytosis 2+ Microcytosis 2+ Macrocytosis 2+ Tear Drop Cells 1+ Stomatocytes 1+ Elliptocytes 1+ Sodium Level 141 Potassium Level 3.7 Chloride Level 108 Carbon Dioxide Level 26 Anion Gap 7 Blood Urea Nitrogen 11 Creatinine 0.45 Est Glomerular Filtrat Rate mL/min > 60 Glucose Level 87 Calcium Level 8.4 Phosphorus Level 4.9 Magnesium Level 2.0 Creatine Kinase < 20 L Medications Medication Current Medications IV Flush (NS 3 ml) 3 ml PER PROTOCOL IV ; Start 08/13/18 at 20:00 Ondansetron HCl (Zofran Inj) 4 mg Q6H PRN IV NAUSEA AND/OR VOMITING Last administered on 09/13/18at 00:30; Admin Dose 4 MG; Start 08/13/18 at 20:00 Glucose (Glutose) 15 gm Q15M PRN PO DECREASED GLUCOSE; Start 08/17/18 at 10:30 Glucose (Glutose) 22.5 gm Q15M PRN PO DECREASED GLUCOSE; Start 08/17/18 at 10:30 Dextrose (D50w Syringe) 25 ml Q15M PRN IV DECREASED GLUCOSE; Start 08/17/18 at 10:30 Dextrose (D50w Syringe) 50 ml Q15M PRN IV DECREASED GLUCOSE; Start 08/17/18 at 10:30 Glucagon (Glucagen) 1 mg Q15M PRN IM DECREASED GLUCOSE; Start 08/17/18 at 10:30 Glucose (Glutose) 15 gm Q15M PRN BUCCAL DECREASED GLUCOSE; Start 08/17/18 at 10:30 Zolpidem Tartrate (Ambien) 10 mg QHS PRN PO INSOMNIA Last administered on 09/19/18at 21:05; Admin Dose 10 MG; Start 08/20/18 at 11:30 Phenol (Cepastat Lozenge) 1 lozenge Q1H PRN MT THROAT PAIN Last administered on 09/17/18at 10:37; Admin Dose 1 LOZENGE; Start 08/21/18 at 11:00 Acetaminophen (Tylenol Tab) 500 mg Q6H PRN PO MILD PAIN(1-3)OR ELEVATED TEMP Last administered on 09/19/18at 10:13; Admin Dose 500 MG; Start 09/01/18 at 18:30 Lidocaine (Xylocaine (Viscous)) 15 ml QID PRN PO Pain in the mouth; Start 09/02/18 at 10:30 Trazodone HCl (Desyrel) 50 mg BID PO Last administered on 09/20/18at 08:36; Admin Dose 50 MG; Start 09/08/18 at 12:30 Lactobacillus Acidophilus/ Rhamnosus (Culturelle) 1 cap BID PO Last administered on 09/20/18at 08:36; Admin Dose 1 CAP; Start 09/08/18 at 12:00 Promethazine HCl/ Codeine (Phenergan/ Codeine) 10 ml Q4H PRN PO COUGH Last administered on 09/19/18at 00:51; Admin Dose 10 ML; Start 09/09/18 at 17:30 Cholecalciferol (Vitamin D) 2,000 unit DAILY PO Last administered on 09/20/18 08:36; Admin Dose 2,000 UNIT; Start 09/13/18 at 09:00 Diphenhydramine HCl (Benadryl) 50 mg Q4 PRN IV ITCHING Last administered on 09/20/18 11:45; Admin Dose 50 MG; Start 09/10/18 at 13:00 Levothyroxine Sodium (Synthroid) 50 mcg BEFORE BREAKFAST PO Last administered on 09/20/18 05:49; Admin Dose 50 MCG; Start 09/13/18 at 07:00 Lorazepam (Ativan) 2 mg Q6 PRN IV Anxiety Last administered on 09/20/18 08:42; Admin Dose 2 MG; Start 09/10/18 at 13:00 Methadone HCl (Methadone Liq) 1 mg TID PO Last administered on 09/20/18 13:12; Admin Dose 1 MG; Start 09/11/18 at 21:00 Pantoprazole (Protonix Tab) 40 mg DAILY@06 PO Last administered on 09/20/18 05:49; Admin Dose 40 MG; Start 09/13/18 at 06:00 Alteplase, Recombinant (Cathflo (Activase)) 2 mg MAY REPEAT X1 PRN CATHETER IF CATHETER REMAINS OCCULUDED Last administered on 09/19/18 15:32; Admin Dose 2 MG; Start 09/19/18 at 01:30 Zinc Sulfate (Zinc Sulfate) 220 mg DAILY PO Last administered on 09/20/18 08:36; Admin Dose 220 MG; Start 09/20/18 at 09:00 Meropenem/Sodium Chloride 50 ml @ 100 mls/hr Q8 IVPB Last administered on 05:49; Admin Dose 100 MLS/HR; Start 09/19/18 at 22:00 Daptomycin 500 mg/ Sodium Chloride 100 ml @ 200 mls/hr Q24H IVPB Last administered on 09/19/18 23:16; Admin Dose 200 MLS/HR; Start 09/19/18 at 23:00 Hydromorphone HCl (Dilaudid) 1 mg Q6 PRN IV SEVERE PAIN LEVEL 7-10; Start 09/20/18 at 14:00 Hydromorphone HCl (Dilaudid) 2 mg Q4H PRN PO SEVERE PAIN LEVEL 7-10; Start 09/20/18 at 14:00 REGINA CARRASCO M.D. Sep 20, 2018 16:06
[2018-09-20 19:39] VITALS: BP 106/57; PULSE 90; RESP 18
[2018-09-20] MEDS: ZOLPIDEM 5 MG TAB PO PRN (19:48)
[2018-09-21] MEDS: HYDROmorphONE 2 MG TAB PO PRN ×3 (00:15→12:19)
[2018-09-21 02:00] VITALS: BP 92/52; PULSE 69; RESP 18
[2018-09-21] MEDS: DAPTOMYCIN 500 MG in SOD CHLORIDE 0.9% 100 ML IVPB SCH (03:43)
[2018-09-21] MEDS: DIPHENHYDRAMINE 50 MG INJ IV PRN ×4 (03:44→22:07)
[2018-09-21] MEDS: HYDROmorphONE 1 MG/ML SYG IV PRN ×4 (03:44→22:07)
[2018-09-21] MEDS: PROMETHAZINE/CODEINE 5ML CUP PO PRN ×5 (03:52→23:58)
[2018-09-21] MEDS: MEROPENEM 1 GM/50ML(PMX) 50 ML IVPB SCH ×3 (05:33→21:09)
[2018-09-21] MEDS: PANTOPRAZOLE (EC) 40 MG TAB PO SCH (05:33)
[2018-09-21] MEDS: LEVOTHYROXINE 50 MCG TAB PO SCH (06:00)
[2018-09-21] MEDS: LORAZEPAM 2 MG INJ IV PRN ×3 (06:00→21:02)
[2018-09-21 08:00] VITALS: BP 105/66; PULSE 69; RESP 18
[2018-09-21] MEDS: traZODone 50 MG TAB PO SCH ×2 (08:54→21:02)
[2018-09-21] MEDS: ZINC SULFATE 220 MG CAP PO SCH (08:54)
[2018-09-21] MEDS: METHADONE (1 MG/ML 5 ML PO UD SYG) PO SCH ×3 (08:54→21:02)
[2018-09-21] MEDS: CHOLECALCIFEROL 2,000 UNIT CAP PO SCH (08:54)
[2018-09-21] MEDS: LACTOBACILLUS RHAMNOSUS CAP PO SCH ×2 (08:54→21:02)
--- NOTE | 2018-09-21 13:06 | PN ---
Date/Time of Note Date/Time of Note DATE: 09/21/18 TIME: 13:01 Assessment/Plan VTE Prophylaxis Risk score (from Nsg)>0 risk: 5 SCD applied (from Nsg): No SCD contraindicated: low risk/ambulating Pharmacological prophylaxis: NA/contraindicated Pharm contraindication: bleeding Lines/Catheters IV Catheter Type (from Nrsg): PICC Line Central line still needed: Yes Urinary Cath still in place: No Assessment/Plan Hospital Course Hospital course: Initially evaluated for abdominal pain and diarrhea. C. difficile negative. Next is an issue was hemoptysis vs hematemesis. Patient was seen by GI and pulmonary. Bronchoscopy and EGD/ colonoscopy was negative for any acute process. Patient was seen by ENT and mild epistaxis was seen but could not account for the bleed. Laryngoscopy done. She was evaluated by the hematology Patient does not have any coagulopathy. CAT scan chest, CAT scan angiogram chest were both unremarkable. Patient was transfused at least 6 units of blood while admitted. Patient underwent repeat EGD and no active bleed seen. Patient is now scheduled for a bubble study. Plan is to transfer to tertiary care for evaluated hemoptysis of unknown etiology. The patient was reluctant yesterday and asked for a hospice consult for some reason, but however today agrees for tertiary care eval. In terms of the bacteremia. Patient will continue daptomycin until the . Levaquin till . Please see ID note for additional details. Additionally seen by behavioral health pain management. Patient has pain seeking behavior. Manipulates staff to get Dilaudid prior to doing investigational studies or agreeing to medical care plan. I attempted to cont act family and give them an update but there is nobody available at bedside or over the phone. I am unable to confirm patient's story of possible thyroid cancer. Or lymphoma. There is an old document stating the patient once told the physician that she has uterine cancer. Patient was following with with [facility] clinic and her paps were unremarkable. Patient's recent oncologist? was in [place] but now that her insurance has changed, she will need a new specialist. A/P 1. Hemoptysis vs Hematemesis? bronch/ egd (twice) & laryngoscopy (/): [facility]. Past egd/bronch in [place] [facility]. No path lesions/ scars. No bleeding diathesis. Refused tertiary eval in the past, but presently accepting transfer to [facility]. - Vasculitis, avm? CTA, echo with bubble study -ve. HRCT, VQ? esr/sylvia/ pft's/ sputum pH -P 2. H/o HL ? chemo/ xrt; repeat chemo [facility]. Saw an Onco in [place] last year. Sp BmBx-appears negative. 3. Ho PE/ Dvt, ivc filter in place. states done at [facility] for bilat upper ext DVT 4. Diarrhea/ giardia; Rxed; however occ diarrhea noted. sp colonoscopy 08/17: patchy colitis 5. Past h/o c diff 6. H/o thyroid nodule/ cancer; ? sp doug in [place]? vs [facility] 5. UTI 6. H/o H pylori; EGD- 'ulcers' within the last year. Current EGD -ve. 7. Cons bacteremia 09/01. Stenotrophomonas maltophilia bacteremia. 09/03: 2D -ve for veg. Source colon? Recent colon didnt show any mass/ cancer. Immunosuppressed? 8. Anemia; beta thalassemia trait; sp bone marrow 08/20 negative; spep ordered; but done/ -ve in the past too. 9. Chr pain syndrome. Pain seeking behavior. will try to manipulate staff for narcotics prior to medical care. 10. Prediabetes? 11. Ulcer of the frenulum linguae. 12. Ftt, stable discharge to snf at some point. Presently going to [facility] 13. Pulmonary nodules, stable, present back in ; observe. Repeat imaging in 3 months. QGold -ve. Appreciate ID assistance 14. Fibromyalgia 15. Repeat sepsis/bacteremia gram-negative bacilli. Source? Will remove picc. Continue broad-spectrum antibiotics. 16. Rt lwr ext DVT, not a candidate for anticoagulation. Stable, cont IVCf status. S: 08/23 feels ok; still bleeding. no dyspnea/ fever 08/24: Events noted still having hemoptysis. No hematuria 08/25: Hemoptysis again this morning? Patient denies any hematemesis or epistaxis 08/26: Recurrent hemoptysis this morning. No dyspnea fever 08/27: Still having hemoptysis? No hematochezia melena hematuria or epistaxis. No dyspnea fever. 08/28: Events noted. She is worried about her hemoptysis. 08/29: Still bringing out a lot of blood. Hemoptysis versus hematemesis. Chronic stable we will consult GI. 09/06: Intermittent hemoptysis. Now having diarrhea without any GI bleed. No fevers. 09/07: Intermittent hemoptysis. Denies any fever vomiting GI bleed. No dyspnea. Does not have a regular oncologist and no outpatient support. Will need snf 09/08: 4 bouts diarrhea. no n/f. 'pain' in legs, abd. no known agg/rel factors. toradol- headache? no h/o rash/ dyspnea 09/09: Hemoptysis noted again. 77 m? [employer], vss. crying, but refusing working/ cxr. Denies any chest pain postnasal drip. No GI bleed. States of having lower abd/ suprapubic tenderness but no dysuria hematuria. Back pain upper/ around her shoulder blades. 09/10: coughing/ vomiting blood. 'pain', lwr abd/ back. now placed in front of nursing station 09/11: hemoptysis noted. Refuses therapy/ studies without dilaudid. Threatened to pull out picc. For tertiary eval. 09/12: no events 09/20: Fever blood cx noted. Hemoptysis for for blood transfusion. 09/21: Intermittent hemoptysis. Transfused overnight. No dyspnea or cough. Min ambulation. refused to have picc removed last night. still has pain seeking behavior. O: vss PE No pallor. Throat clear, adentous Reg s1s2 no mrg Clear Benign, nt; nd; no RRG No edema/ Homens. lt picc c/d/i Result Diagram: 09/21/18 0543 09/21/18 0543 Results 24hrs Laboratory Tests Test 09/21/18 05:43 09/21/18 07:00 White Blood Count 3.7 L Red Blood Count 3.31 #L Hemoglobin 8.7 #L Hematocrit 26.6 #L Mean Corpuscular Volume 80.4 L Mean Corpuscular Hemoglobin 26.3 L Mean Corpuscular Hemoglobin Concent 32.7 Red Cell Distribution Width 19.0 H Platelet Count 168 Mean Platelet Volume 10.1 Immature Granulocytes % 0.300 Neutrophils % 49.3 Lymphocytes % 34.0 Monocytes % 12.1 H Eosinophils % 3.8 Basophils % 0.5 Nucleated Red Blood Cells % 0.0 Immature Granulocytes # 0.010 Neutrophils # 1.8 Lymphocytes # 1.3 Monocytes # 0.5 Eosinophils # 0.1 Basophils # 0.0 Nucleated Red Blood Cells # 0.0 Sodium Level 143 Potassium Level 3.7 Chloride Level 107 Carbon Dioxide Level 28 Anion Gap 8 Blood Urea Nitrogen 10 Creatinine 0.44 Est Glomerular Filtrat Rate mL/min > 60 Glucose Level 89 Calcium Level 8.7 Magnesium Level 2.2 Total Bilirubin 0.3 Direct Bilirubin 0.00 Indirect Bilirubin 0.3 Aspartate Amino Transf (AST/SGOT) 27 Alanine Aminotransferase (ALT/SGPT) 36 Alkaline Phosphatase 61 Total Protein 6.2 Albumin 3.3 Globulin 2.90 Albumin/Globulin Ratio 1.13 Lab Scanned Report BLOOD TRANSFUSION Exam/Review of Systems Exam Vitals Vital Signs Date Temp Pulse Resp B/P (MAP) Pulse Ox O2 O2 Flow FiO2 Time Delivery Rate 09/21/18 98.0 69 18 105/66 100 Room Air 08:00 (79) Intake and Output 09/20/18 09/20/18 09/21/18 1515:00 23:00 07:00 IntakeIntake Total 900 ml 945 ml BalanceBalance 900 ml 945 ml Results Results 24hrs Laboratory Tests Test 09/21/18 05:43 09/21/18 07:00 White Blood Count 3.7 L Red Blood Count 3.31 #L Hemoglobin 8.7 #L Hematocrit 26.6 #L Mean Corpuscular Volume 80.4 L Mean Corpuscular Hemoglobin 26.3 L Mean Corpuscular Hemoglobin Concent 32.7 Red Cell Distribution Width 19.0 H Platelet Count 168 Mean Platelet Volume 10.1 Immature Granulocytes % 0.300 Neutrophils % 49.3 Lymphocytes % 34.0 Monocytes % 12.1 H Eosinophils % 3.8 Basophils % 0.5 Nucleated Red Blood Cells % 0.0 Immature Granulocytes # 0.010 Neutrophils # 1.8 Lymphocytes # 1.3 Monocytes # 0.5 Eosinophils # 0.1 Basophils # 0.0 Nucleated Red Blood Cells # 0.0 Sodium Level 143 Potassium Level 3.7 Chloride Level 107 Carbon Dioxide Level 28 Anion Gap 8 Blood Urea Nitrogen 10 Creatinine 0.44 Est Glomerular Filtrat Rate mL/min > 60 Glucose Level 89 Calcium Level 8.7 Magnesium Level 2.2 Total Bilirubin 0.3 Direct Bilirubin 0.00 Indirect Bilirubin 0.3 Aspartate Amino Transf (AST/SGOT) 27 Alanine Aminotransferase (ALT/SGPT) 36 Alkaline Phosphatase 61 Total Protein 6.2 Albumin 3.3 Globulin 2.90 Albumin/Globulin Ratio 1.13 Lab Scanned Report BLOOD TRANSFUSION Medications Medication Current Medications IV Flush (NS 3 ml) 3 ml PER PROTOCOL IV ; Start 08/13/18 at 20:00 Ondansetron HCl (Zofran Inj) 4 mg Q6H PRN IV NAUSEA AND/OR VOMITING Last administered on 09/13/18at 00:30; Admin Dose 4 MG; Start 08/13/18 at 20:00 Glucose (Glutose) 15 gm Q15M PRN PO DECREASED GLUCOSE; Start 08/17/18 at 10:30 Glucose (Glutose) 22.5 gm Q15M PRN PO DECREASED GLUCOSE; Start 08/17/18 at 10:30 Dextrose (D50w Syringe) 25 ml Q15M PRN IV DECREASED GLUCOSE; Start 08/17/18 at 10:30 Dextrose (D50w Syringe) 50 ml Q15M PRN IV DECREASED GLUCOSE; Start 08/17/18 at 10:30 Glucagon (Glucagen) 1 mg Q15M PRN IM DECREASED GLUCOSE; Start 08/17/18 at 10:30 Glucose (Glutose) 15 gm Q15M PRN BUCCAL DECREASED GLUCOSE; Start 08/17/18 at 10:30 Zolpidem Tartrate (Ambien) 10 mg QHS PRN PO INSOMNIA Last administered on 09/20/18at 19:48; Admin Dose 10 MG; Start 08/20/18 at 11:30 Phenol (Cepastat Lozenge) 1 lozenge Q1H PRN MT THROAT PAIN Last administered on 09/17/18at 10:37; Admin Dose 1 LOZENGE; Start 08/21/18 at 11:00 Acetaminophen (Tylenol Tab) 500 mg Q6H PRN PO MILD PAIN(1-3)OR ELEVATED TEMP Last administered on 09/19/18at 10:13; Admin Dose 500 MG; Start 09/01/18 at 18:30 Lidocaine (Xylocaine (Viscous)) 15 ml QID PRN PO Pain in the mouth; Start 09/02/18 at 10:30 Trazodone HCl (Desyrel) 50 mg BID PO Last administered on 09/21/18 08:54; Admin Dose 50 MG; Start 09/08/18 at 12:30 Lactobacillus Acidophilus/ Rhamnosus (Culturelle) 1 cap BID PO Last administered on 09/21/18 08:54; Admin Dose 1 CAP; Start 09/08/18 at 12:00 Promethazine HCl/ Codeine (Phenergan/ Codeine) 10 ml Q4H PRN PO COUGH Last administered on 09/21/18 08:53; Admin Dose 10 ML; Start 09/09/18 at 17:30 Cholecalciferol (Vitamin D) 2,000 unit DAILY PO Last administered on 09/21/18 08:54; Admin Dose 2,000 UNIT; Start 09/13/18 at 09:00 Diphenhydramine HCl (Benadryl) 50 mg Q4 PRN IV ITCHING Last administered on 09/21/18 09:47; Admin Dose 50 MG; Start 09/10/18 at 13:00 Levothyroxine Sodium (Synthroid) 50 mcg BEFORE BREAKFAST PO Last administered on 09/21/18 06:00; Admin Dose 50 MCG; Start 09/13/18 at 07:00 Lorazepam (Ativan) 2 mg Q6 PRN IV Anxiety Last administered on 09/21/18 12:54; Admin Dose 2 MG; Start 09/10/18 at 13:00 Methadone HCl (Methadone Liq) 1 mg TID PO Last administered on 09/21/18 08:54; Admin Dose 1 MG; Start 09/11/18 at 21:00 Pantoprazole (Protonix Tab) 40 mg DAILY@06 PO Last administered on 09/21/18 05:33; Admin Dose 40 MG; Start 09/13/18 at 06:00 Alteplase, Recombinant (Cathflo (Activase)) 2 mg MAY REPEAT X1 PRN CATHETER IF CATHETER REMAINS OCCULUDED Last administered on 09/19/18 15:32; Admin Dose 2 MG; Start 09/19/18 at 01:30 Zinc Sulfate (Zinc Sulfate) 220 mg DAILY PO Last administered on 09/21/18 08:54; Admin Dose 220 MG; Start 09/20/18 at 09:00 Meropenem/Sodium Chloride 50 ml @ 100 mls/hr Q8 IVPB Last administered on 2/26/19at 05:33; Admin Dose 100 MLS/HR; Start 09/19/18 at 22:00 Daptomycin 500 mg/ Sodium Chloride 100 ml @ 200 mls/hr Q24H IVPB Last administ ered on 09/21/18at 03:43; Admin Dose 200 MLS/HR; Start 09/19/18 at 23:00 Hydromorphone HCl (Dilaudid) 1 mg Q6 PRN IV SEVERE PAIN LEVEL 7-10 Last administered on 09/21/18at 09:48; Admin Dose 1 MG; Start 09/20/18 at 14:00 Hydromorphone HCl (Dilaudid) 2 mg Q4H PRN PO SEVERE PAIN LEVEL 7-10 Last administered on 09/21/18at 12:19; Admin Dose 2 MG; Start 09/20/18 at 14:00 LEON CORONA MD Sep 21, 2018 13:06
[2018-09-21] MEDS ORDERED: SOD CHLORIDE 0.9% 500 ML IV ONE (13:30)
[2018-09-21 14:00] VITALS: BP 102/64; PULSE 88; RESP 18
--- NOTE | 2018-09-21 14:29 | CONS ---
Consult Date/Type/Reason Admit Date/Time Aug 13, 2018 at 17:22 Initial Consult Date 08/19/18 Type of Consult Pulmonary Requesting Provider: SHAQUILLE HARRIS Date/Time of Note DATE: 09/21/18 TIME: 14:29 Subjective Still have intermittent hemoptysis. Objective Vital Signs Date Temp Pulse Resp B/P (MAP) Pulse Ox O2 O2 Flow FiO2 Time Delivery Rate 09/21/18 98.0 69 18 105/66 100 Room Air 08:00 (79) Intake and Output 09/20/18 09/20/18 09/21/18 1515:00 23:00 07:00 IntakeIntake Total 900 ml 945 ml BalanceBalance 900 ml 945 ml Exam GENERAL: Well-nourished well-developed VITAL SIGNS: per chart NECK: Supple. No JVD or lymphadenopathy. CARDIAC EXAM: S1, S2. No added sounds or murmurs. CHEST: clear bilaterally, No added sounds, rales or wheezes ABDOMEN: Soft, nontender. No guarding or rebound. EXTREMITIES: No cyanosis, clubbing or edema. NEUROLOGIC: Generalized weakness. No focal deficits. Vent Setting Fraction of Inspired Oxygen pe: 21 Results/Medications Result Diagram: 09/21/18 0543 09/21/18 0543 Results 24 hrs Laboratory Tests Test 09/21/18 05:43 09/21/18 07:00 White Blood Count 3.7 L Red Blood Count 3.31 #L Hemoglobin 8.7 #L Hematocrit 26.6 #L Mean Corpuscular Volume 80.4 L Mean Corpuscular Hemoglobin 26.3 L Mean Corpuscular Hemoglobin Concent 32.7 Red Cell Distribution Width 19.0 H Platelet Count 168 Mean Platelet Volume 10.1 Immature Granulocytes % 0.300 Neutrophils % 49.3 Lymphocytes % 34.0 Monocytes % 12.1 H Eosinophils % 3.8 Basophils % 0.5 Nucleated Red Blood Cells % 0.0 Immature Granulocytes # 0.010 Neutrophils # 1.8 Lymphocytes # 1.3 Monocytes # 0.5 Eosinophils # 0.1 Basophils # 0.0 Nucleated Red Blood Cells # 0.0 Sodium Level 143 Potassium Level 3.7 Chloride Level 107 Carbon Dioxide Level 28 Anion Gap 8 Blood Urea Nitrogen 10 Creatinine 0.44 Est Glomerular Filtrat Rate mL/min > 60 Glucose Level 89 Calcium Level 8.7 Magnesium Level 2.2 Total Bilirubin 0.3 Direct Bilirubin 0.00 Indirect Bilirubin 0.3 Aspartate Amino Transf (AST/SGOT) 27 Alanine Aminotransferase (ALT/SGPT) 36 Alkaline Phosphatase 61 Total Protein 6.2 Albumin 3.3 Globulin 2.90 Albumin/Globulin Ratio 1.13 Lab Scanned Report BLOOD TRANSFUSION Medications Current Medications IV Flush (NS 3 ml) 3 ml PER PROTOCOL IV ; Start 08/13/18 at 20:00 Ondansetron HCl (Zofran Inj) 4 mg Q6H PRN IV NAUSEA AND/OR VOMITING Last administered on 09/13/18at 00:30; Admin Dose 4 MG; Start 08/13/18 at 20:00 Glucose (Glutose) 15 gm Q15M PRN PO DECREASED GLUCOSE; Start 08/17/18 at 10:30 Glucose (Glutose) 22.5 gm Q15M PRN PO DECREASED GLUCOSE; Start 08/17/18 at 10:30 Dextrose (D50w Syringe) 25 ml Q15M PRN IV DECREASED GLUCOSE; Start 08/17/18 at 10:30 Dextrose (D50w Syringe) 50 ml Q15M PRN IV DECREASED GLUCOSE; Start 08/17/18 at 10:30 Glucagon (Glucagen) 1 mg Q15M PRN IM DECREASED GLUCOSE; Start 08/17/18 at 10:30 Glucose (Glutose) 15 gm Q15M PRN BUCCAL DECREASED GLUCOSE; Start 08/17/18 at 10:30 Zolpidem Tartrate (Ambien) 10 mg QHS PRN PO INSOMNIA Last administered on 09/20/18at 19:48; Admin Dose 10 MG; Start 08/20/18 at 11:30 Phenol (Cepastat Lozenge) 1 lozenge Q1H PRN MT THROAT PAIN Last administered on 09/17/18at 10:37; Admin Dose 1 LOZENGE; Start 08/21/18 at 11:00 Acetaminophen (Tylenol Tab) 500 mg Q6H PRN PO MILD PAIN(1-3)OR ELEVATED TEMP Last administered on 09/19/18at 10:13; Admin Dose 500 MG; Start 09/01/18 at 18:30 Lidocaine (Xylocaine (Viscous)) 15 ml QID PRN PO Pain in the mouth; Start 09/02/18 at 10:30 Trazodone HCl (Desyrel) 50 mg BID PO Last administered on 09/21/18 08:54; Admin Dose 50 MG; Start 09/08/18 at 12:30 Lactobacillus Acidophilus/ Rhamnosus (Culturelle) 1 cap BID PO Last administered on 09/21/18 08:54; Admin Dose 1 CAP; Start 09/08/18 at 12:00 Promethazine HCl/ Codeine (Phenergan/ Codeine) 10 ml Q4H PRN PO COUGH Last administered on 09/21/18 13:48; Admin Dose 10 ML; Start 09/09/18 at 17:30 Cholecalciferol (Vitamin D) 2,000 unit DAILY PO Last administered on 09/21/18 08:54; Admin Dose 2,000 UNIT; Start 09/13/18 at 09:00 Diphenhydramine HCl (Benadryl) 50 mg Q4 PRN IV ITCHING Last administered on 09/21/18 09:47; Admin Dose 50 MG; Start 09/10/18 at 13:00 Levothyroxine Sodium (Synthroid) 50 mcg BEFORE BREAKFAST PO Last administered on 09/21/18 06:00; Admin Dose 50 MCG; Start 09/13/18 at 07:00 Lorazepam (Ativan) 2 mg Q6 PRN IV Anxiety Last administered on 09/21/18 12:54; Admin Dose 2 MG; Start 09/10/18 at 13:00 Methadone HCl (Methadone Liq) 1 mg TID PO Last administered on 09/21/18 13:48; Admin Dose 1 MG; Start 09/11/18 at 21:00 Pantoprazole (Protonix Tab) 40 mg DAILY@06 PO Last administered on 09/21/18 05:33; Admin Dose 40 MG; Start 09/13/18 at 06:00 Alteplase, Recombinant (Cathflo (Activase)) 2 mg MAY REPEAT X1 PRN CATHETER IF CATHETER REMAINS OCCULUDED Last administered on 09/19/18 15:32; Admin Dose 2 MG; Start 09/19/18 at 01:30 Zinc Sulfate (Zinc Sulfate) 220 mg DAILY PO Last administered on 09/21/18 08:54; Admin Dose 220 MG; Start 09/20/18 at 09:00 Meropenem/Sodium Chloride 50 ml @ 100 mls/hr Q8 IVPB Last administered on 2/26/19at 13:49; Admin Dose 100 MLS/HR; Start 09/19/18 at 22:00 Hydromorphone HCl (Dilaudid) 1 mg Q6 PRN IV SEVERE PAIN LEVEL 7-10 Last administered on 09/21/18at 09:48; Admin Dose 1 MG; Start 09/20/18 at 14:00 Hydromorphone HCl (Dilaudid) 2 mg Q4H PRN PO SEVERE PAIN LEVEL 7-10 Last administered on 09/21/18at 12:19; Admin Dose 2 MG; Start 09/20/18 at 14:00 Sodium Chloride 500 ml @ 500 mls/hr Q1H ONCE IV ; Start 09/21/18 at 13:30; Stop 09/21/18 at 14:29 Assessment/Plan Hospital Course (Demo Recall) Assessment 1. History of recurrent hemoptysis unremarkable chest CT source unclear 2- prior bronchoscopies. Possible AVM, still with significant hemoptysis. 2. History of thyroid cancer 3. Apparent history of lymphoma in the past. Plan 1. Cardiac recs, echocardiogram appreciated no evidence of significant intra cardiac shunt 2. Monitor H&H, transfuse as needed. 3. Antidepressants Repeat chest x-ray unremarkable. No focal infiltrates or evidence of alveolar hemorrhage. Pending transfer to [facility]. MARGE GUZMAN MD, [facility] Sep 21, 2018 14:29
--- NOTE | 2018-09-21 15:11 | CONS ---
Assessment/Plan Assessment/Plan Hospital Course (Demo Recall) sepsis, endovascular infection - recurrent sepsis 09/19/2018 due to bacteremia, UTI - recurrent bacteremia, and UTI due to Gram negative rods - s/p sepsis d/t bacteremia - fever and tachycardia resolved - bacteremia d/t Coag Neg Staph and Stenotrophomonas maltophilia on 09/01/2018 and 09/02/2018; repeat blood cultures 09/04/18 negative. - h/o "bacteremia due to enterococci" according to progress notes at [facility], but the actual microbiology report indicated blood culture was positive for ESBL+E. coli - h/o fungemia due to kaley glabrata, sensitive to fluconazole and to maldonado afungin/caspofungin at [facility] - TTE done 09/04/18 showed no mention of valvular vegetations; EF 55-60% pulm - persistent hemoptysis of unknown etiology: Pt reports negative PPD at [facility] - according to the microbiology report at [facility], Pt had ESBL+E. coli in her respiratory culture. Sputum cultures for AFB and fungi were negative at 8 weeks and at 4 weeks respectively at [facility] - Pt had negative bronchoscopy in 05/2018 at [facility], another at [facility] in 2018, and on 08/25/2018 at [facility] (no e/o bronchial airway bleeding according to Dr. Bello) - Numerous tiny lung nodules, increased in number from the chest CT dated May 22, 2018, with largest measuring 0.3 cm in the left apex-->follow up CT on 09/10/2018 indicated: stable bilateral micronodules dating back to examination of at least 01/29/2017; RLL fibrosis. - Kaley albicans in sputum cx on 08/28/2018 - likely colonizer - so far: aspergillus antibody not detected, HIV negative, coccidioidomycosis serology negative, TB Quant Gold negative, 1,3 beta d glucan negative, procalc 09/01/18 was 0.30; Sputum for O&P was negative GI - Delgado-colitis per CT 08/13/18 - S/p diarrhea on 09/06/18 - s/p EGD on 09/10/2018: no GI bleeding noted, reportedly completely normal - S/p sigmoidoscopy with biopsy 08/17/2018; path showed no e/o colitis or malignancy from transverse colon and rectum biopsies - S/p bloody diarrhea d/t Giardia; Pt took metronidazole for Giardia (08/14/2018- 08/21/2018) in 07/2018. - H/o C diff toxin negative PCR positive status at [facility]. Took a course of Fidaxomyxin x 10 days. C. diff was negative on 08/14/2018 at [facility] - H/o cholecystectomy - Stool for O&P was negative 09/12/18 heme/oncology - recurrent DVT despite IVC filter: DVT of R proximal mid femoral veins, partial DVT of R distal femoral vein on SHARON 09/19/2018 - S/p CT guided bone marrow aspiration and biopsy 08/20/2018 - Microcytic anemia requiring PRBC d/t acute blood loss - Electrophoresis 08/19/18 showed: Evaluation suggests beta thalassemia trait with anemia. Iron deficiency must be ruled out. - H/o BUE and RLE DVT, s/p IVC filter in January 2018 - H/o Hodgkin lymphoma diagnosed in 2006 - H/o thyroid CA diagnosed in 2005, s/p resection, chemo and XRT - IVC filter placement - Patient reports that approximately 2 years ago (2017?) she had an abnormal mammogram of Left breast and that she was scheduled for a biopsy approximately 4 months ago but d/t insurance change did not receive the biopsy, on 09/13/18 patient reported brown drainage from left nipple x2 nights - +Family hx of cancer (father of stomach CA, mother of lymphoma, paternal uncle had breast CA and 12 yo daughter has h/o brain tumor s/p surgery and resulting blindness) , renal - recurrent UTI - h/o UTI due to ESBL+E. coli - S/p PO levofloxacin (08/24/2018-08/28/2018) for probable UTI other conditions - s/p a painful ulcer at frenulum, resolving. According to Pt, topical steroid would worsen the pain. HIV negative, RPR non reactive, herpes 1 and 2 by PCR not detected; s/p trial of PO valacyclovir (08/27/2018-09/01/2018) - s/p bilateral conjunctivitis - improved s/p Cipro eye drops (08/18/18-08/23/18) - myalgia with hemoptysis, CK level stable (<20 on 09/03/2018, 39 on 09/10/2018, and <20 on 09/17/2018) - Hypothyroidism - HLD - S/p hypokalemia - OA - depression/anxiety - H/o x2 - Allergy to PCN and vancomycin (reaction unknown) Previously Pt took: daptomycin (09/02/2018-09/17/2018, 09/19/2018-), levofloxacin (08/25/18-08/27/2018, 09/05/2018-09/18/2018), cefepime (09/03/18 - 09/05/18). Recommendations: - pending results: cultures of blood, urine, repeat blood cultures on 09/21/2018 - continue meropenem (09/19/2018-) - d/c daptomycin - once the gram negative bacteria are speciated, will de-escalate her antibiotic - remove PICC and use peripheral IV catheters if possible management was d/w patient, Dr. Lopez and Dr. Richardson Consultation Date/Type/Reason Admit Date/Time Aug 13, 2018 at 17:22 Initial Consult Date 08/19/18 Type of Consult ID Requesting Provider: SHAQUILLE HARRIS Date/Time of Note DATE: 09/21/18 TIME: 15:09 24 HR Interval Summary Constitutional: poor po Detailed Summary Eyes: no complaints ENT: no complaints Respiratory: other (hemoptysis) Cardiovascular: no complaints Gastrointestinal: no complaints Genitourinary: dysuria Musculoskeletal: no complaints Skin: no complaints Neurologic: no complaints Exam/Review of Systems Exam Vitals Vital Signs Date Temp Pulse Resp B/P (MAP) Pulse Ox O2 O2 Flow FiO2 Time Delivery Rate 09/21/18 97.8 88 18 102/64 100 Room Air 14:00 (77) Intake and Output 09/20/18 09/20/18 09/21/18 1515:00 23:00 07:00 IntakeIntake Total 900 ml 945 ml BalanceBalance 900 ml 945 ml Constitutional: frail Psych: no complaints, nl mood/affect Head: normocephalic, atraumatic Eyes: nl conjunctiva, nl lids ENMT: nl external ears & nose, nl nasal mucosa & septum Neck: supple, other (not swollen) Respiratory: clear to auscultation, normal air movement Cardiovascular: regular rate and rhythm, nl pulses, edema Gastrointestinal: soft, non-tender Extremities: edema Neurological: [employer] II-XII intact, nl mental status Skin: nl turgor; No rash or lesions Results Result Diagram: 09/21/18 0543 09/21/18 0543 Results 24hrs Laboratory Tests Test 09/21/18 05:43 09/21/18 07:00 White Blood Count 3.7 L Red Blood Count 3.31 #L Hemoglobin 8.7 #L Hematocrit 26.6 #L Mean Corpuscular Volume 80.4 L Mean Corpuscular Hemoglobin 26.3 L Mean Corpuscular Hemoglobin Concent 32.7 Red Cell Distribution Width 19.0 H Platelet Count 168 Mean Platelet Volume 10.1 Immature Granulocytes % 0.300 Neutrophils % 49.3 Lymphocytes % 34.0 Monocytes % 12.1 H Eosinophils % 3.8 Basophils % 0.5 Nucleated Red Blood Cells % 0.0 Immature Granulocytes # 0.010 Neutrophils # 1.8 Lymphocytes # 1.3 Monocytes # 0.5 Eosinophils # 0.1 Basophils # 0.0 Nucleated Red Blood Cells # 0.0 Sodium Level 143 Potassium Level 3.7 Chloride Level 107 Carbon Dioxide Level 28 Anion Gap 8 Blood Urea Nitrogen 10 Creatinine 0.44 Est Glomerular Filtrat Rate mL/min > 60 Glucose Level 89 Calcium Level 8.7 Magnesium Level 2.2 Total Bilirubin 0.3 Direct Bilirubin 0.00 Indirect Bilirubin 0.3 Aspartate Amino Transf (AST/SGOT) 27 Alanine Aminotransferase (ALT/SGPT) 36 Alkaline Phosphatase 61 Total Protein 6.2 Albumin 3.3 Globulin 2.90 Albumin/Globulin Ratio 1.13 Lab Scanned Report BLOOD TRANSFUSION Medications Medication Current Medications IV Flush (NS 3 ml) 3 ml PER PROTOCOL IV ; Start 08/13/18 at 20:00 Ondansetron HCl (Zofran Inj) 4 mg Q6H PRN IV NAUSEA AND/OR VOMITING Last administered on 09/13/18at 00:30; Admin Dose 4 MG; Start 08/13/18 at 20:00 Glucose (Glutose) 15 gm Q15M PRN PO DECREASED GLUCOSE; Start 08/17/18 at 10:30 Glucose (Glutose) 22.5 gm Q15M PRN PO DECREASED GLUCOSE; Start 08/17/18 at 10:30 Dextrose (D50w Syringe) 25 ml Q15M PRN IV DECREASED GLUCOSE; Start 08/17/18 at 10:30 Dextrose (D50w Syringe) 50 ml Q15M PRN IV DECREASED GLUCOSE; Start 08/17/18 at 10:30 Glucagon (Glucagen) 1 mg Q15M PRN IM DECREASED GLUCOSE; Start 08/17/18 at 10:30 Glucose (Glutose) 15 gm Q15M PRN BUCCAL DECREASED GLUCOSE; Start 08/17/18 at 10:30 Zolpidem Tartrate (Ambien) 10 mg QHS PRN PO INSOMNIA Last administered on 09/20/18 19:48; Admin Dose 10 MG; Start 08/20/18 at 11:30 Phenol (Cepastat Lozenge) 1 lozenge Q1H PRN MT THROAT PAIN Last administered on 09/17/18 10:37; Admin Dose 1 LOZENGE; Start 08/21/18 at 11:00 Acetaminophen (Tylenol Tab) 500 mg Q6H PRN PO MILD PAIN(1-3)OR ELEVATED TEMP Last administered on 09/19/18 10:13; Admin Dose 500 MG; Start 09/01/18 at 18:30 Lidocaine (Xylocaine (Viscous)) 15 ml QID PRN PO Pain in the mouth; Start 09/02/18 at 10:30 Trazodone HCl (Desyrel) 50 mg BID PO Last administered on 09/21/18 08:54; Admin Dose 50 MG; Start 09/08/18 at 12:30 Lactobacillus Acidophilus/ Rhamnosus (Culturelle) 1 cap BID PO Last administered on 09/21/18 08:54; Admin Dose 1 CAP; Start 09/08/18 at 12:00 Promethazine HCl/ Codeine (Phenergan/ Codeine) 10 ml Q4H PRN PO COUGH Last administered on 09/21/18 13:48; Admin Dose 10 ML; Start 09/09/18 at 17:30 Cholecalciferol (Vitamin D) 2,000 unit DAILY PO Last administered on 09/21/18 08:54; Admin Dose 2,000 UNIT; Start 09/13/18 at 09:00 Diphenhydramine HCl (Benadryl) 50 mg Q4 PRN IV ITCHING Last administered on 09/21/18 09:47; Admin Dose 50 MG; Start 09/10/18 at 13:00 Levothyroxine Sodium (Synthroid) 50 mcg BEFORE BREAKFAST PO Last administered on 09/21/18 06:00; Admin Dose 50 MCG; Start 09/13/18 at 07:00 Lorazepam (Ativan) 2 mg Q6 PRN IV Anxiety Last administered on 09/21/18 12:54; Admin Dose 2 MG; Start 09/10/18 at 13:00 Methadone HCl (Methadone Liq) 1 mg TID PO Last administered on 09/21/18 13:48; Admin Dose 1 MG; Start 09/11/18 at 21:00 Pantoprazole (Protonix Tab) 40 mg DAILY@06 PO Last administered on 09/21/18 05:33; Admin Dose 40 MG; Start 09/13/18 at 06:00 Alteplase, Recombinant (Cathflo (Activase)) 2 mg MAY REPEAT X1 PRN CATHETER IF CATHETER REMAINS OCCULUDED Last administered on 09/19/18 15:32; Admin Dose 2 MG; Start 09/19/18 at 01:30 Zinc Sulfate (Zinc Sulfate) 220 mg DAILY PO Last administered on 09/21/18 08:5 4; Admin Dose 220 MG; Start 09/20/18 at 09:00 Meropenem/Sodium Chloride 50 ml @ 100 mls/hr Q8 IVPB Last administered on 09/21/18 13:49; Admin Dose 100 MLS/HR; Start 09/19/18 at 22:00 Hydromorphone HCl (Dilaudid) 1 mg Q6 PRN IV SEVERE PAIN LEVEL 7-10 Last administered on 09/21/18 09:48; Admin Dose 1 MG; Start 09/20/18 at 14:00 Hydromorphone HCl (Dilaudid) 2 mg Q4H PRN PO SEVERE PAIN LEVEL 7-10 Last administered on 09/21/18 12:19; Admin Dose 2 MG; Start 09/20/18 at 14:00 REGINA CARRASCO M.D. Sep 21, 2018 15:11
[2018-09-21 19:57] VITALS: BP 98/57; PULSE 78; RESP 20
[2018-09-21] MEDS: ZOLPIDEM 5 MG TAB PO PRN (23:04)
[2018-09-22] MEDS: HYDROmorphONE 2 MG TAB PO PRN ×2 (01:38→16:32)
[2018-09-22] MEDS: HYDROmorphONE 1 MG/ML SYG IV PRN ×4 (03:58→21:24)
[2018-09-22] MEDS: DIPHENHYDRAMINE 50 MG INJ IV PRN ×4 (03:58→21:23)
[2018-09-22] MEDS: MEROPENEM 1 GM/50ML(PMX) 50 ML IVPB SCH ×2 (05:34→13:36)
[2018-09-22] MEDS: PANTOPRAZOLE (EC) 40 MG TAB PO SCH (05:34)
[2018-09-22] MEDS: LEVOTHYROXINE 50 MCG TAB PO SCH (05:34)
[2018-09-22] MEDS: LORAZEPAM 2 MG INJ IV PRN ×3 (05:34→20:12)
[2018-09-22 08:00] VITALS: BP_SYST 105; BP_SYST 184; BP_DIAS 57; BP_DIAS 84; PULSE 72; PULSE 82; RESP 18
[2018-09-22] MEDS: ZINC SULFATE 220 MG CAP PO SCH (08:32)
[2018-09-22] MEDS: LACTOBACILLUS RHAMNOSUS CAP PO SCH ×2 (08:32→20:14)
[2018-09-22] MEDS: CHOLECALCIFEROL 2,000 UNIT CAP PO SCH (08:32)
[2018-09-22] MEDS: traZODone 50 MG TAB PO SCH ×2 (08:32→20:14)
[2018-09-22] MEDS: PROMETHAZINE/CODEINE 5ML CUP PO PRN ×2 (08:33→20:23)
[2018-09-22] MEDS: METHADONE (1 MG/ML 5 ML PO UD SYG) PO SCH ×3 (08:34→20:14)
[2018-09-22 14:00] VITALS: BP 95/52; PULSE 87; RESP 18
--- NOTE | 2018-09-22 14:08 | CONS ---
DATE OF ADMISSION: 08/13/2018 DATE OF CONSULTATION: 09/21/2018 TYPE OF CONSULTATION: Rheumatology. HISTORY OF PRESENT ILLNESS: The patient is a 52-year-old woman with a very complicated hist ory admitted on 08/13/2018 at [facility] with abdominal pain and bloody diarrhea and subsequ ently diagnosed with pancolitis. The patient has a prior history of recurrent hemoptysis and has had recurrent hemoptysis in the hospital here. She has had 2 bronchoscopies as outpatient and a broncho scopy here all basically unremarkable. Chest x-rays and CT scan of the chest have not been consisten t with alveolar hemorrhage. There are micro nodules on chest CT, unclear how old. While in the hosp ital, the patient has had recurrent sepsis and bacteremia and was treated with antibiotics. Laborato ry studies to evaluate for possible vasculitis until now have been unremarkable including negative AN CA panel and sedimentation rate of only 24. The patient has had a very complicated history including history of Hodgkin's lymphoma diagnosed initially in 2006 and was treated with chemotherapy. There was a question of more recent involvement in the lungs. The patient also has a history of thyroid ca ncer diagnosed in 2005, status post resection, possible chemotherapy and radiation therapy. The patie nt has had 2 years ago abnormal left mammogram, but has not yet had breast biopsy. More recently, dasia funez reported some brown drainage from her left nipple. The patient also has a history of recurrent DVTs and has had IVC filter placed, but subsequently viviane rizo had DVTs. As mentioned above, she has had pancolitis. GI evaluation showed no evidence of neoplas tic process. She has been treated for Giardia. She also has had history of recurrent urinary tract infections. She has a history of conjunctivitis treated with Cipro eyedrops. She has a history of h ypothyroidism, history of depression and anxiety. RHEUMATOLOGIC REVIEW OF SYSTEMS: Negative for actual arthritis other than some osteoarthritis in the knees. No history of rashes or Raynaud's phenomenon. PAST MEDICAL HISTORY: As above. MEDICATIONS: See chart. ALLERGIES: 1. PENICILLIN. 2. VANCOMYCIN. SOCIAL HISTORY: The patient is . Does not smoke. Drinks alcohol rarely. FAMILY HISTORY: Noncontributory. PHYSICAL EXAMINATION: GENERAL: Well-developed, well-nourished, woman in no acute distress at present. SKIN: Without rashes. No sclerodactyly, telangiectasias or periungual erythema. HEENT: Without acute oral or ocular lesions noted. NECK: Without lymphadenopathy. CHEST: Clear to auscultation. HEART: Regular rate and rhythm. ABDOMEN: Soft without tenderness present. EXTREMITIES: With some pedal edema. MUSCULOSKELETAL: Joints without synovitis. NEUROLOGIC: Grossly intact. Chart reviewed in detail. LABORATORY STUDIES: Noted. ASSESSMENT: 1. Hemoptysis. No clear evidence of pulmonary or GI etiology of the hemoptysis. We would expect si gnificant changes on chest x-ray or CT scan and bronchoscopy has been negative. In addition, evaluat ion for vasculitis such as ANCA panel has been negative and sedimentation rate has not been very elev ated. We would strongly doubt pulmonary vasculitis as etiology. Consider upper respiratory, possibl e sinus or nasal type etiology even though ENT initial evaluation was not very remarkable, it is poss ible that there is intermittent postnasal bleeding accounting for this picture. 2. Bacteremia/sepsis. 3. Pancolitis. 4. Recurrent deep venous thrombosis. 5. Possible recurrence of lymphoma. 6. Possible breast cancer. RECOMMENDATIONS: 1. At present, we would recommend reevaluation by ENT for possible source of bleeding as there is no clear evidence of pulmonary or GI etiology. 2. I agree with present management of the infection, et cetera and the patient will need additional evaluation for the possibility of breast cancer and the lymphoma. Thank for allowing me see the patient rheumatologically. We will follow while in the hospital. Dictated By: JAZZY VANESSA MD CW/NTS Conf#: [id number] DID#: [id number] CC: RON MCKEON MD; LEON CORONA MD; SUKHWINDER STOUT MD;*EndCC*
[2018-09-22] MEDS ORDERED: HYDROmorphONE 1 MG/ML SYG IV PRN (16:00)
[2018-09-22] MEDS ORDERED: DIPHENHYDRAMINE 50 MG INJ IV PRN (16:00)
--- NOTE | 2018-09-22 16:16 | PN ---
Date/Time of Note Date/Time of Note DATE: 09/22/18 TIME: 16:10 Assessment/Plan VTE Prophylaxis Risk score (from Nsg)>0 risk: 5 SCD applied (from Nsg): No SCD contraindicated: low risk/ambulating Pharmacological prophylaxis: NA/contraindicated Pharm contraindication: bleeding Lines/Catheters IV Catheter Type (from Nrsg): PICC Line Central line still needed: Yes Urinary Cath still in place: No Assessment/Plan Hospital Course Hospital course: Initially evaluated for abdominal pain and diarrhea. C. difficile negative. Next is an issue was hemoptysis vs hematemesis. Patient was seen by GI and pulmonary. Bronchoscopy and EGD/ colonoscopy was negative for any acute process. Patient was seen by ENT and mild epistaxis was seen but could not account for the bleed. Laryngoscopy done. She was evaluated by the hematology Patient does not have any coagulopathy. CAT scan chest, CAT scan angiogram chest were both unremarkable. Patient was transfused at least 6 units of blood while admitted. Patient underwent repeat EGD and no active bleed seen. Patient is now scheduled for a bubble study. Plan is to transfer to tertiary care for evaluated hemoptysis of unknown etiology. The patient was reluctant yesterday and asked for a hospice consult for some reason, but however today agrees for tertiary care eval. In terms of the bacteremia. Patient will continue daptomycin until the . Levaquin till . Please see ID note for additional details. Additionally seen by behavioral health pain management. Patient has pain seeking behavior. Manipulates staff to get Dilaudid prior to doing investigational studies or agreeing to medical care plan. I attempted to cont act family and give them an update but there is nobody available at bedside or over the phone. I am unable to confirm patient's story of possible thyroid cancer. Or lymphoma. There is an old document stating the patient once told the physician that she has uterine cancer. Patient was following with with [facility] clinic and her paps were unremarkable. Patient's recent oncologist? was in [place] but now that her insurance has changed, she will need a new specialist. A/P 1. Hemoptysis vs Hematemesis? bronch/ egd (twice) & laryngoscopy (09/01 & 09/22)= [facility]. Past egd/bronch in [place] [facility]. No path lesions/ scars. No bleeding diathesis. Refused tertiary eval in the past, but presently accepting transfer to [facility]. - Vasculitis, avm? CTA, echo with bubble study -ve, HRCT. VQ? esr/sylvia/ pft's/ sputum pH -P 2. H/o HL ? chemo/ xrt; repeat chemo [facility]. Saw an Onco in [place] last year. Sp BmBx-appears negative. 3. Ho PE/ Dvt, ivc filter in place. states done at [facility] for bilat upper ext DVT 4. Diarrhea/ giardia; Rxed; however occ diarrhea noted. sp colonoscopy 08/17: patchy colitis 5. Past h/o c diff 6. H/o thyroid nodule/ ca- ? sp doug in [place]? vs [facility] 5. UTI 6. H/o H pylori; EGD- 'ulcers' within the last year. Current EGD -ve. 7. Cons bacteremia 09/01. Stenotrophomonas maltophilia bacteremia. 09/03: 2D -ve for veg. Source colon? Recent colon didnt show any mass/ cancer. Immunosuppressed? 8. Anemia; beta thalassemia trait; sp bone marrow 08/20 negative; spep ordered; but done/ -ve in the past too. 9. Chr pain syndrome. Pain seeking behavior. will try to manipulate staff for narcotics prior to medical care. 10. Prediabetes? 11. Ulcer of the frenulum linguae. 12. Ftt, stable discharge to snf at some point. Presently going to [facility] ([facility] vs..) 13. Pulmonary nodules, stable, present back in ; observe. Repeat imaging in 3 months. QGold -ve. Appreciate ID assistance 14. Fibromyalgia 15. Repeat sepsis/bacteremia gram-negative bacilli. Source? Will try to remove picc. Cont broad-spectrum antibiotics. 16. Rt lwr ext DVT, not a candidate for anticoagulation. Stable, cont IVCf status. S: 08/23 feels ok; still bleeding. no dyspnea/ fever 08/24: Events noted still having hemoptysis. No hematuria 08/25: Hemoptysis again this morning? Patient denies any hematemesis or epistaxis 08/26: Recurrent hemoptysis this morning. No dyspnea fever 08/27: Still having hemoptysis? No hematochezia melena hematuria or epistaxis. No dyspnea fever. 08/28: Events noted. She is worried about her hemoptysis. 08/29: Still bringing out a lot of blood. Hemoptysis versus hematemesis. Chronic stable we will consult GI. 09/06: Intermittent hemoptysis. Now having diarrhea without any GI bleed. No fe vers. 09/07: Intermittent hemoptysis. Denies any fever vomiting GI bleed. No dyspnea. Does not have a regular oncologist and no outpatient support. Will need snf 09/08: 4 bouts diarrhea. no n/f. 'pain' in legs, abd. no known agg/rel factors. toradol- headache? no h/o rash/ dyspnea 09/09: Hemoptysis noted again. 77 m? [employer], vss. crying, but refusing working/ cxr. Denies any chest pain postnasal drip. No GI bleed. States of having lower abd/ suprapubic tenderness but no dysuria hematuria. Back pain upper/ around her shoulder blades. 09/10: coughing/ vomiting blood. 'pain', lwr abd/ back. now placed in front of nursing station 09/11: hemoptysis noted. Refuses therapy/ studies without dilaudid. Threatened to pull out picc. For tertiary eval. 09/12: no events 09/20: Fever blood cx noted. Hemoptysis for for blood transfusion. 09/21: Intermittent hemoptysis. Transfused overnight. No dyspnea or cough. Min ambulation. refused to have picc removed last night. still has pain seeking behavior. 09/22: No active bleed on ENT eval. poor IV access, May not be able to remove the PICC. O vss PE No pallor. Throat clear, adentous Reg s1s2 no mrg Clear Benign, nt; nd; no RRG No edema/ Homens. lt picc c/d/i Result Diagram: 09/22/18 0816 09/22/18 0816 Results 24hrs Laboratory Tests Test 09/22/18 08:16 White Blood Count 4.4 L Red Blood Count 3.85 L Hemoglobin 9.9 L Hematocrit 31.3 L Mean Corpuscular Volume 81.3 L Mean Corpuscular Hemoglobin 25.7 L Mean Corpuscular Hemoglobin Concent 31.6 L Red Cell Distribution Width 18.9 H Platelet Count 218 # Mean Platelet Volume 10.6 H Immature Granulocytes % 0.200 Neutrophils % 45.9 Lymphocytes % 40.9 Monocytes % 8.9 Eosinophils % 3.2 Basophils % 0.9 Nucleated Red Blood Cells % 0.0 Immature Granulocytes # 0.010 Neutrophils # 2.0 Lymphocytes # 1.8 Monocytes # 0.4 Eosinophils # 0.1 Basophils # 0.0 Nucleated Red Blood Cells # 0.0 Erythrocyte Sedimentation Rate 34 H Sodium Level 142 Potassium Level 4.3 Chloride Level 107 Carbon Dioxide Level 27 Anion Gap 8 Blood Urea Nitrogen 14 Creatinine 0.49 Est Glomerular Filtrat Rate mL/min > 60 Glucose Level 93 Calcium Level 9.5 Total Bilirubin 0.4 Direct Bilirubin 0.00 Indirect Bilirubin 0.4 Aspartate Amino Transf (AST/SGOT) 28 Alanine Aminotransferase (ALT/SGPT) 26 Alkaline Phosphatase 86 C-Reactive Protein 3.5 H Total Protein 7.3 # Albumin 4.1 Globulin 3.20 Albumin/Globulin Ratio 1.28 Exam/Review of Systems Exam Vitals Vital Signs Date Temp Pulse Resp B/P (MAP) Pulse Ox O2 O2 Flow FiO2 Time Delivery Rate 09/22/18 98.1 87 18 95/52 (66) 100 Room Air 14:00 Intake and Output 09/21/18 09/21/18 09/22/18 1515:00 23:00 07:00 IntakeIntake Total 750 ml 930 ml 50 ml BalanceBalance 750 ml 930 ml 50 ml Results Results 24hrs Laboratory Tests Test 09/22/18 08:16 White Blood Count 4.4 L Red Blood Count 3.85 L Hemoglobin 9.9 L Hematocrit 31.3 L Mean Corpuscular Volume 81.3 L Mean Corpuscular Hemoglobin 25.7 L Mean Corpuscular Hemoglobin Concent 31.6 L Red Cell Distribution Width 18.9 H Platelet Count 218 # Mean Platelet Volume 10.6 H Immature Granulocytes % 0.200 Neutrophils % 45.9 Lymphocytes % 40.9 Monocytes % 8.9 Eosinophils % 3.2 Basophils % 0.9 Nucleated Red Blood Cells % 0.0 Immature Granulocytes # 0.010 Neutrophils # 2.0 Lymphocytes # 1.8 Monocytes # 0.4 Eosinophils # 0.1 Basophils # 0.0 Nucleated Red Blood Cells # 0.0 Erythrocyte Sedimentation Rate 34 H Sodium Level 142 Potassium Level 4.3 Chloride Level 107 Carbon Dioxide Level 27 Anion Gap 8 Blood Urea Nitrogen 14 Creatinine 0.49 Est Glomerular Filtrat Rate mL/min > 60 Glucose Level 93 Calcium Level 9.5 Total Bilirubin 0.4 Direct Bilirubin 0.00 Indirect Bilirubin 0.4 Aspartate Amino Transf (AST/SGOT) 28 Alanine Aminotransferase (ALT/SGPT) 26 Alkaline Phosphatase 86 C-Reactive Protein 3.5 H Total Protein 7.3 # Albumin 4.1 Globulin 3.20 Albumin/Globulin Ratio 1.28 Medications Medication Current Medications IV Flush (NS 3 ml) 3 ml PER PROTOCOL IV ; Start 08/13/18 at 20:00 Ondansetron HCl (Zofran Inj) 4 mg Q6H PRN IV NAUSEA AND/OR VOMITING Last administered on 09/13/18at 00:30; Admin Dose 4 MG; Start 08/13/18 at 20:00 Glucose (Glutose) 15 gm Q15M PRN PO DECREASED GLUCOSE; Start 08/17/18 at 10:30 Glucose (Glutose) 22.5 gm Q15M PRN PO DECREASED GLUCOSE; Start 08/17/18 at 10:3 0 Dextrose (D50w Syringe) 25 ml Q15M PRN IV DECREASED GLUCOSE; Start 08/17/18 at 10:30 Dextrose (D50w Syringe) 50 ml Q15M PRN IV DECREASED GLUCOSE; Start 08/17/18 at 10:30 Glucagon (Glucagen) 1 mg Q15M PRN IM DECREASED GLUCOSE; Start 08/17/18 at 10:30 Glucose (Glutose) 15 gm Q15M PRN BUCCAL DECREASED GLUCOSE; Start 08/17/18 at 10:30 Zolpidem Tartrate (Ambien) 10 mg QHS PRN PO INSOMNIA Last administered on 09/21/18at 23:04; Admin Dose 10 MG; Start 08/20/18 at 11:30 Phenol (Cepastat Lozenge) 1 lozenge Q1H PRN MT THROAT PAIN Last administered on 09/17/18at 10:37; Admin Dose 1 LOZENGE; Start 08/21/18 at 11:00 Acetaminophen (Tylenol Tab) 500 mg Q6H PRN PO MILD PAIN(1-3)OR ELEVATED TEMP Last administered on 09/19/18at 10:13; Admin Dose 500 MG; Start 09/01/18 at 18:30 Lidocaine (Xylocaine (Viscous)) 15 ml QID PRN PO Pain in the mouth; Start 09/02/18 at 10:30 Trazodone HCl (Desyrel) 50 mg BID PO Last administered on 09/22/18 08:32; Admin Dose 50 MG; Start 09/08/18 at 12:30 Lactobacillus Acidophilus/ Rhamnosus (Culturelle) 1 cap BID PO Last administered on 09/22/18 08:32; Admin Dose 1 CAP; Start 09/08/18 at 12:00 Promethazine HCl/ Codeine (Phenergan/ Codeine) 10 ml Q4H PRN PO COUGH Last administered on 09/22/18 08:33; Admin Dose 10 ML; Start 09/09/18 at 17:30 Cholecalciferol (Vitamin D) 2,000 unit DAILY PO Last administered on 09/22/18 08:32; Admin Dose 2,000 UNIT; Start 09/13/18 at 09:00 Diphenhydramine HCl (Benadryl) 50 mg Q4 PRN IV ITCHING Last administered on 09/22/18 15:24; Admin Dose 50 MG; Start 09/10/18 at 13:00 Levothyroxine Sodium (Synthroid) 50 mcg BEFORE BREAKFAST PO Last administered on 09/22/18 05:34; Admin Dose 50 MCG; Start 09/13/18 at 07:00 Lorazepam (Ativan) 2 mg Q6 PRN IV Anxiety Last administered on 09/22/18 11:35; Admin Dose 2 MG; Start 09/10/18 at 13:00 Methadone HCl (Methadone Liq) 1 mg TID PO Last administered on 09/22/18 13:35; Admin Dose 1 MG; Start 09/11/18 at 21:00 Pantoprazole (Protonix Tab) 40 mg DAILY@06 PO Last administered on 09/22/18 05:34; Admin Dose 40 MG; Start 09/13/18 at 06:00 Alteplase, Recombinant (Cathflo (Activase)) 2 mg MAY REPEAT X1 PRN CATHETER IF CATHETER REMAINS OCCULUDED Last administered on 09/19/18 15:32; Admin Dose 2 MG; Start 09/19/18 at 01:30 Zinc Sulfate (Zinc Sulfate) 220 mg DAILY PO Last administered on 09/22/18 08:32; Admin Dose 220 MG; Start 09/20/18 at 09:00 Hydromorphone HCl (Dilaudid) 1 mg Q6 PRN IV SEVERE PAIN LEVEL 7-10 Last administered on 09/22/18at 15:24; Admin Dose 1 MG; Start 09/20/18 at 14:00 Hydromorphone HCl (Dilaudid) 2 mg Q4H PRN PO SEVERE PAIN LEVEL 7-10 Last admi nistered on 09/22/18at 01:38; Admin Dose 2 MG; Start 09/20/18 at 14:00 Levofloxacin/ Dextrose 150 ml @ 100 mls/hr Q24H IVPB ; Start 09/22/18 at 15:00 LEON CORONA MD Sep 22, 2018 16:16
--- NOTE | 2018-09-22 17:12 | CONS ---
Consult Date/Type/Reason Admit Date/Time Aug 13, 2018 at 17:22 Initial Consult Date 09/01/18 Type of Consultation: Rheum Requesting Provider: SHAQUILLE HARRIS Date/Time of Note DATE: 09/22/18 TIME: 17:06 Subjective No new complaints. Today patient mentioned that she has had occasional arthralgias at multiple joints and possibly some swelling at times at hands over the last six months. Told in the past that she may have RA or possibly Lupus, although apparently no treatment provided. Objective Vitals Vital Signs Date Temp Pulse Resp B/P (MAP) Pulse Ox O2 O2 Flow FiO2 Time Delivery Rate 09/22/18 98.1 87 18 95/52 (66) 100 Room Air 14:00 Intake and Output 09/21/18 09/21/18 09/22/18 1515:00 23:00 07:00 IntakeIntake Total 750 ml 930 ml 50 ml BalanceBalance 750 ml 930 ml 50 ml Exam GENERAL: No acute distress at present. SKIN: Without rashes. No sclerodactyly, telangiectasias or periungual erythema. HEENT: Without acute oral or ocular lesions noted. NECK: Without lymphadenopathy. CHEST: Clear to auscultation. HEART: Regular rate and rhythm. ABDOMEN: Soft without tenderness present. EXTREMITIES: With some pedal edema. MUSCULOSKELETAL: Joints without synovitis. Mild tenderness wrists. NEUROLOGIC: Grossly intact. Results/Medications Result Diagram: 09/22/18 0816 09/22/18 0816 Results 24 hrs Laboratory Tests Test 09/22/18 08:16 White Blood Count 4.4 L Red Blood Count 3.85 L Hemoglobin 9.9 L Hematocrit 31.3 L Mean Corpuscular Volume 81.3 L Mean Corpuscular Hemoglobin 25.7 L Mean Corpuscular Hemoglobin Concent 31.6 L Red Cell Distribution Width 18.9 H Platelet Count 218 # Mean Platelet Volume 10.6 H Immature Granulocytes % 0.200 Neutrophils % 45.9 Lymphocytes % 40.9 Monocytes % 8.9 Eosinophils % 3.2 Basophils % 0.9 Nucleated Red Blood Cells % 0.0 Immature Granulocytes # 0.010 Neutrophils # 2.0 Lymphocytes # 1.8 Monocytes # 0.4 Eosinophils # 0.1 Basophils # 0.0 Nucleated Red Blood Cells # 0.0 Erythrocyte Sedimentation Rate 34 H Sodium Level 142 Potassium Level 4.3 Chloride Level 107 Carbon Dioxide Level 27 Anion Gap 8 Blood Urea Nitrogen 14 Creatinine 0.49 Est Glomerular Filtrat Rate mL/min > 60 Glucose Level 93 Calcium Level 9.5 Total Bilirubin 0.4 Direct Bilirubin 0.00 Indirect Bilirubin 0.4 Aspartate Amino Transf (AST/SGOT) 28 Alanine Aminotransferase (ALT/SGPT) 26 Alkaline Phosphatase 86 C-Reactive Protein 3.5 H Total Protein 7.3 # Albumin 4.1 Globulin 3.20 Albumin/Globulin Ratio 1.28 Home Meds Reported Medications Zolpidem Tartrate* (Ambien*) 5 Mg Tablet, 5 MG PO QHS PRN for INSOMNIA, #30 TAB 08/13/18 Cholecalciferol* (Vitamin D3*) 1,000 Unit Tablet, 1000 UNIT PO DAILY, TAB 08/13/18 Cholecalciferol* (Vitamin D3*) 1,000 Unit Tablet, 2000 UNIT PO DAILY, TAB 08/13/18 Potassium Chloride* (Potassium Chloride*) 20 Meq Tablet.er, 20 MEQ PO DAILY, TAB.SA 08/13/18 Duloxetine Hcl* (Cymbalta*) 60 Mg Capsule.dr, 60 MG PO DAILY, CAP 08/13/18 Oxycodone Hcl* (Oxycontin*) 15 Mg Tab.sr.12h, 15 MG PO Q12, TAB 08/13/18 Hydromorphone Hcl* (Dilaudid*) 8 Mg Tablet, 8 MG PO Q6H PRN for PAIN, TAB 08/13/18 Pantoprazole* (Protonix*) 40 Mg Tablet.dr, 40 MG PO AC BREAKFAST, TAB 08/13/18 Levothyroxine Sodium* (Levothyroxine Sodium*) 25 Mcg Tablet, 25 MCG PO BEFORE BREAKFAST, #30 TAB 08/13/18 Medications Current Medications IV Flush (NS 3 ml) 3 ml PER PROTOCOL IV ; Start 08/13/18 at 20:00 Ondansetron HCl (Zofran Inj) 4 mg Q6H PRN IV NAUSEA AND/OR VOMITING Last administered on 09/13/18at 00:30; Admin Dose 4 MG; Start 08/13/18 at 20:00 Glucose (Glutose) 15 gm Q15M PRN PO DECREASED GLUCOSE; Start 08/17/18 at 10:30 Glucose (Glutose) 22.5 gm Q15M PRN PO DECREASED GLUCOSE; Start 08/17/18 at 10:30 Dextrose (D50w Syringe) 25 ml Q15M PRN IV DECREASED GLUCOSE; Start 08/17/18 at 10:30 Dextrose (D50w Syringe) 50 ml Q15M PRN IV DECREASED GLUCOSE; Start 08/17/18 at 10:30 Glucagon (Glucagen) 1 mg Q15M PRN IM DECREASED GLUCOSE; Start 08/17/18 at 10:30 Glucose (Glutose) 15 gm Q15M PRN BUCCAL DECREASED GLUCOSE; Start 08/17/18 at 10:30 Zolpidem Tartrate (Ambien) 10 mg QHS PRN PO INSOMNIA Last administered on 09/21/18 23:04; Admin Dose 10 MG; Start 08/20/18 at 11:30 Phenol (Cepastat Lozenge) 1 lozenge Q1H PRN MT THROAT PAIN Last administered on 09/17/18 10:37; Admin Dose 1 LOZENGE; Start 08/21/18 at 11:00 Acetaminophen (Tylenol Tab) 500 mg Q6H PRN PO MILD PAIN(1-3)OR ELEVATED TEMP Last administered on 09/19/18 10:13; Admin Dose 500 MG; Start 09/01/18 at 18:30 Lidocaine (Xylocaine (Viscous)) 15 ml QID PRN PO Pain in the mouth; Start 09/02/18 at 10:30 Trazodone HCl (Desyrel) 50 mg BID PO Last administered on 09/22/18 08:32; Admin Dose 50 MG; Start 09/08/18 at 12:30 Lactobacillus Acidophilus/ Rhamnosus (Culturelle) 1 cap BID PO Last administered on 09/22/18 08:32; Admin Dose 1 CAP; Start 09/08/18 at 12:00 Promethazine HCl/ Codeine (Phenergan/ Codeine) 10 ml Q4H PRN PO COUGH Last administered on 09/22/18 08:33; Admin Dose 10 ML; Start 09/09/18 at 17:30 Cholecalciferol (Vitamin D) 2,000 unit DAILY PO Last administered on 09/22/18 08:32; Admin Dose 2,000 UNIT; Start 09/13/18 at 09:00 Diphenhydramine HCl (Benadryl) 50 mg Q4 PRN IV ITCHING Last administered on 09/22/18 15:24; Admin Dose 50 MG; Start 09/10/18 at 13:00 Levothyroxine Sodium (Synthroid) 50 mcg BEFORE BREAKFAST PO Last administered on 09/22/18 05:34; Admin Dose 50 MCG; Start 09/13/18 at 07:00 Lorazepam (Ativan) 2 mg Q6 PRN IV Anxiety Last administered on 09/22/18 11:35; Admin Dose 2 MG; Start 09/10/18 at 13:00 Methadone HCl (Methadone Liq) 1 mg TID PO Last administered on 09/22/18 13:35; Admin Dose 1 MG; Start 09/11/18 at 21:00 Pantoprazole (Protonix Tab) 40 mg DAILY@06 PO Last administered on 09/22/18 05:34; Admin Dose 40 MG; Start 09/13/18 at 06:00 Alteplase, Recombinant (Cathflo (Activase)) 2 mg MAY REPEAT X1 PRN CATHETER IF CATHETER REMAINS OCCULUDED Last administered on 09/19/18 15:32; Admin Dose 2 MG; Start 09/19/18 at 01:30 Zinc Sulfate (Zinc Sulfate) 220 mg DAILY PO Last administered on 09/22/18 08:32; Admin Dose 220 MG; Start 09/20/18 at 09:00 Hydromorphone HCl (Dilaudid) 1 mg Q6 PRN IV SEVERE PAIN LEVEL 7-10 Last a dministered on 09/22/18 15:24; Admin Dose 1 MG; Start 09/20/18 at 14:00 Hydromorphone HCl (Dilaudid) 2 mg Q4H PRN PO SEVERE PAIN LEVEL 7-10 Last administered on 09/22/18 16:32; Admin Dose 2 MG; Start 09/20/18 at 14:00 Levofloxacin/ Dextrose 150 ml @ 100 mls/hr Q24H IVPB ; Start 09/22/18 at 15:00 Mupirocin (Bactroban) 1 applic TID TOP ; Start 09/22/18 at 21:00; Stop 10/06/18 at 23:00 Assessment/Plan Assessment/Plan (Daily) ASSESSMENT: 1. Hemoptysis. No clear evidence of pulmonary or GI etiology of the hemoptysis. We would expect significant changes on chest x-ray or CT scan and bronchoscopy has been negative. In addition, evaluation for vasculitis such as ANCA panel has been negative and sedimentation rate has not been very elevated. We would strongly doubt pulmonary vasculitis as etiology. Consider upper respiratory, possible sinus or nasal type etiology even though ENT initial evaluation was not very remarkable, it is possible that there is intermittent postnasal bleeding accounting for this picture. 2. Bacteremia/sepsis. 3. Pancolitis. 4. Recurrent deep venous thrombosis. 5. Possible recurrence of lymphoma. 6. Possible breast cancer. 7. Will check serologies for RA and SLE, including for phospholipid antibodies. RECOMMENDATIONS: 1. Recommend reevaluation by ENT for possible source of bleeding as there is no clear evidence of pulmonary or GI etiology. 2. I agree with present management of the infection, et cetera and the patient will need additional evaluation for the possibility of breast cancer and the lymphoma. 3. Additional autoimmune labs ordered. JAZZY VANESSA MD Sep 22, 2018 17:12
--- NOTE | 2018-09-22 17:37 | CONS ---
DATE OF ADMISSION: 08/13/2018 DATE OF CONSULTATION: HISTORY OF PRESENT ILLNESS: Khadijah Masters is a 52-year-old female with hemoptysis. ENT was consulted to evaluate. She has a history of multiple pulmonary lesions. She had spit up a small clot approxim ately 1 hour prior to the visit, but she was not coughing up any blood at this time. PAST MEDICAL HISTORY: Hypothyroidism, gastroesophageal reflux disease. PAST SURGICAL HISTORY: Cholecystectomy last year. DRUG ALLERGIES: 1. PENICILLIN. 2. MORPHINE. 3. IODINE. 4. VANCOMYCIN. 5. TORADOL. MEDICATIONS: Reviewed. SOCIAL HISTORY: Negative for tobacco, alcohol or drug abuse. FAMILY HISTORY: Negative for any heart, lung, kidney, thyroid disease. REVIEW OF SYSTEMS: A 12-point review of systems otherwise noncontributory. PHYSICAL EXAMINATION: Endoscopy through the right nasal cavity showed no evidence of lesions or bloo d. The nasopharynx is clear. The vallecula is open. Epiglottis is normal. Base of the tongue is w ithout any lesion. No blood is seen. Endoscopy on the left side shows an excoriation of the left an terior septum, but the remainder of the nasal cavity is clear. IMPRESSION: 1. Hemoptysis. 2. Nasal excoriation. PLAN: At this point, I would think that she could have a small amount of blood from this lesion, but I doubt that all the bleeding and blood that she spit up would be due to this; that being said, I escobar spect another lesion. With that being said, we can use some mupirocin ointment on this area 3 times a day for the next 2 weeks to help this area heal. If there are any questions or concerns, please fr ee to reconsult at any time. Dictated By: LISY VILLASENOR MD DM/NTS Conf#: [id number] DID#: [id number] CC: SUKHWINDER STOUT MD;*EndCC*
--- NOTE | 2018-09-22 17:53 | CONS ---
Assessment/Plan Assessment/Plan Hospital Course (Demo Recall) sepsis, endovascular infection - recurrent sepsis 09/19/2018 due to bacteremia - recurrent bacteremia due to stenotrophomonas - s/p bacteremia d/t Coag Neg Staph and Stenotrophomonas maltophilia on 09/01/2018 and 09/02/2018; took daptomycin and levofloxacin - h/o "bacteremia due to enterococci" according to progress notes at [facility], but the actual microbiology report indicated blood culture was positive for ESBL+E. coli - h/o fungemia due to kaley glabrata, sensitive to fluconazole and to micafungin/caspofungin at [facility] - TTE done 09/04/18 showed no mention of valvular vegetations; EF 55-60% pulm - persistent hemoptysis of unknown etiology: Pt reports negative PPD at [facility] - according to the microbiology report at [facility], Pt had ESBL+E. coli in her respiratory culture. Sputum cultures for AFB and fungi were negative at 8 weeks and at 4 weeks respectively at [facility] - Pt had negative bronchoscopy in 05/2018 at [facility], another at [facility] in 2017, and on 08/25/2018 at [facility] (no e/o bronchial airway bleeding according to Dr. Bello) - Numerous tiny lung nodules, increased in number from the chest CT dated May 22, 2018, with largest measuring 0.3 cm in the left apex, CT on 09/10/2018 indicated: stable bilateral micronodules dating back to examination of at least 01/29/2017; RLL fibrosis, CT on 09/22/2018 noted numerous small bilateral peripheral pulmonary nodules and scattered ground-glass opacities - Kaley albicans in sputum cx on 08/28/2018 - likely colonizer - so far: aspergillus antibody not detected, HIV negative, coccidioidomycosis serology negative, TB Quant Gold negative, 1,3 beta d glucan negative, procalc 09/01/18 was 0.30; Sputum for O&P was negative GI - Delgado-colitis per CT 08/13/18 - S/p diarrhea on 09/06/18 - s/p EGD on 09/10/2018: no GI bleeding noted, reportedly completely normal - S/p sigmoidoscopy with biopsy 08/17/2018; path showed no e/o colitis or malignancy from transverse colon and rectum biopsies - S/p bloody diarrhea d/t Giardia; Pt took metronidazole for Giardia (08/14/2018- 08/21/2018) in 07/2018. - H/o C diff toxin negative PCR positive status at [facility]. Took a course of Fidaxomyxin x 10 days. C. diff was negative on 08/14/2018 at [facility] - H/o cholecystectomy - Stool for O&P was negative 09/12/18 heme/oncology - recurrent DVT despite IVC filter: DVT of R proximal mid femoral veins, partial DVT of R distal femoral vein on SHARON 09/19/2018 - S/p CT guided bone marrow aspiration and biopsy 08/20/2018 - Microcytic anemia requiring PRBC d/t acute blood loss - Electrophoresis 08/19/18 showed: Evaluation suggests beta thalassemia trait with anemia. Iron deficiency must be ruled out. - H/o BUE and RLE DVT, s/p IVC filter in January 2018 - H/o Hodgkin lymphoma diagnosed in 2006 - H/o thyroid CA diagnosed in 2005, s/p resection, chemo and XRT - IVC filter placement - Patient reports that approximately 2 years ago (2017?) she had an abnormal mammogram of Left breast and that she was scheduled for a biopsy approximately 4 months ago but d/t insurance change did not receive the biopsy, on 09/13/18 patient reported brown drainage from left nipple x2 nights - +Family hx of cancer (father of stomach CA, mother of lymphoma, paternal uncle had breast CA and 12 yo daughter has h/o brain tumor s/p surgery and resulting blindness) , renal - recurrent UTI - h/o UTI due to ESBL+E. coli - S/p PO levofloxacin (08/24/2018-08/28/2018) for probable UTI other conditions - s/p a painful ulcer at frenulum, resolving. According to Pt, topical steroid would worsen the pain. HIV negative, RPR non reactive, herpes 1 and 2 by PCR not detected; s/p trial of PO valacyclovir (08/27/2018-09/01/2018) - s/p bilateral conjunctivitis - improved s/p Cipro eye drops (08/18/18-08/23/18) - myalgia with hemoptysis, CK level stable (<20 on 09/03/2018, 39 on 09/10/2018, and <20 on 09/17/2018) - Hypothyroidism - HLD - S/p hypokalemia - OA - depression/anxiety - H/o x2 - Allergy to PCN and vancomycin (reaction unknown) Previously Pt took: daptomycin (09/02/2018-09/17/2018, 09/19/2018-), cefepime ( 09/03/18 - 09/05/18), meropenem (09/19/2018-09/21/2018) Recommendations: - pending results: repeat blood cultures and resp culture on 09/21/2018 - please order repeat transthoracic echocardiogram light of recurrent bacteremia - change meropenem to levofloxacin (08/25/18-08/27/2018, 09/05/2018-09/18/2018, restart 09/22/2018-); however, Pt reportedly declined to take levofloxacin - I recommended removal of PICC but establishing a peripheral IV catheter has been difficult and as a result PICC remains in place management was d/w patient, Dr. Lopez, RN Zenaida Consultation Date/Type/Reason Admit Date/Time Aug 13, 2018 at 17:22 Initial Consult Date 08/19/18 Type of Consult ID Requesting Provider: SHAQUILLE HARRIS Date/Time of Note DATE: 09/22/18 TIME: 17:45 24 HR Interval Summary Subjective hx not possible: other (Pt kept crying asking for pain medications and when I asked her how she was doing, she curled up in the fetalposition, covered her head with blanket and did not speak with me) Constitutional: other (Pt reportedly refused antibiotic (levofloxacin)) Exam/Review of Systems Exam Vitals Vital Signs Date Temp Pulse Resp B/P (MAP) Pulse Ox O2 O2 Flow FiO2 Time Delivery Rate 09/22/18 98.1 87 18 95/52 (66) 100 Room Air 14:00 Intake and Output 09/21/18 09/21/18 09/22/18 1414:59 22:59 06:59 IntakeIntake Total 750 ml 930 ml 50 ml BalanceBalance 750 ml 930 ml 50 ml Exam Pt kept crying asking for pain medications and when I asked her how she was doing, she curled up in the fetalposition, covered her head with blanket and did not allow PE Respiratory: other (hemoptysis) Results Result Diagram: 09/22/18 0816 09/22/18 0816 Results 24hrs Laboratory Tests Test 09/22/18 08:16 White Blood Count 4.4 L Red Blood Count 3.85 L Hemoglobin 9.9 L Hematocrit 31.3 L Mean Corpuscular Volume 81.3 L Mean Corpuscular Hemoglobin 25.7 L Mean Corpuscular Hemoglobin Concent 31.6 L Red Cell Distribution Width 18.9 H Platelet Count 218 # Mean Platelet Volume 10.6 H Immature Granulocytes % 0.200 Neutrophils % 45.9 Lymphocytes % 40.9 Monocytes % 8.9 Eosinophils % 3.2 Basophils % 0.9 Nucleated Red Blood Cells % 0.0 Immature Granulocytes # 0.010 Neutrophils # 2.0 Lymphocytes # 1.8 Monocytes # 0.4 Eosinophils # 0.1 Basophils # 0.0 Nucleated Red Blood Cells # 0.0 Erythrocyte Sedimentation Rate 34 H Sodium Level 142 Potassium Level 4.3 Chloride Level 107 Carbon Dioxide Level 27 Anion Gap 8 Blood Urea Nitrogen 14 Creatinine 0.49 Est Glomerular Filtrat Rate mL/min > 60 Glucose Level 93 Calcium Level 9.5 Total Bilirubin 0.4 Direct Bilirubin 0.00 Indirect Bilirubin 0.4 Aspartate Amino Transf (AST/SGOT) 28 Alanine Aminotransferase (ALT/SGPT) 26 Alkaline Phosphatase 86 C-Reactive Protein 3.5 H Total Protein 7.3 # Albumin 4.1 Globulin 3.20 Albumin/Globulin Ratio 1.28 Medications Medication Current Medications IV Flush (NS 3 ml) 3 ml PER PROTOCOL IV ; Start 08/13/18 at 20:00 Ondansetron HCl (Zofran Inj) 4 mg Q6H PRN IV NAUSEA AND/OR VOMITING Last administered on 09/13/18at 00:30; Admin Dose 4 MG; Start 08/13/18 at 20:00 Glucose (Glutose) 15 gm Q15M PRN PO DECREASED GLUCOSE; Start 08/17/18 at 10:30 Glucose (Glutose) 22.5 gm Q15M PRN PO DECREASED GLUCOSE; Start 08/17/18 at 10:30 Dextrose (D50w Syringe) 25 ml Q15M PRN IV DECREASED GLUCOSE; Start 08/17/18 at 10:30 Dextrose (D50w Syringe) 50 ml Q15M PRN IV DECREASED GLUCOSE; Start 08/17/18 at 10:30 Glucagon (Glucagen) 1 mg Q15M PRN IM DECREASED GLUCOSE; Start 08/17/18 at 10:30 Glucose (Glutose) 15 gm Q15M PRN BUCCAL DECREASED GLUCOSE; Start 08/17/18 at 10:30 Zolpidem Tartrate (Ambien) 10 mg QHS PRN PO INSOMNIA Last administered on 09/21/18 23:04; Admin Dose 10 MG; Start 08/20/18 at 11:30 Phenol (Cepastat Lozenge) 1 lozenge Q1H PRN MT THROAT PAIN Last administered on 09/17/18 10:37; Admin Dose 1 LOZENGE; Start 08/21/18 at 11:00 Acetaminophen (Tylenol Tab) 500 mg Q6H PRN PO MILD PAIN(1-3)OR ELEVATED TEMP Last administered on 09/19/18 10:13; Admin Dose 500 MG; Start 09/01/18 at 18:30 Lidocaine (Xylocaine (Viscous)) 15 ml QID PRN PO Pain in the mouth; Start 09/02/18 at 10:30 Trazodone HCl (Desyrel) 50 mg BID PO Last administered on 09/22/18 08:32; Admin Dose 50 MG; Start 09/08/18 at 12:30 Lactobacillus Acidophilus/ Rhamnosus (Culturelle) 1 cap BID PO Last administered on 09/22/18 08:32; Admin Dose 1 CAP; Start 09/08/18 at 12:00 Promethazine HCl/ Codeine (Phenergan/ Codeine) 10 ml Q4H PRN PO COUGH Last administered on 09/22/18 08:33; Admin Dose 10 ML; Start 09/09/18 at 17:30 Cholecalciferol (Vitamin D) 2,000 unit DAILY PO Last administered on 09/22/18 08:32; Admin Dose 2,000 UNIT; Start 09/13/18 at 09:00 Diphenhydramine HCl (Benadryl) 50 mg Q4 PRN IV ITCHING Last administered on 09/22/18 15:24; Admin Dose 50 MG; Start 09/10/18 at 13:00 Levothyroxine Sodium (Synthroid) 50 mcg BEFORE BREAKFAST PO Last administered on 09/22/18 05:34; Admin Dose 50 MCG; Start 09/13/18 at 07:00 Lorazepam (Ativan) 2 mg Q6 PRN IV Anxiety Last administered on 09/22/18 11:35; Admin Dose 2 MG; Start 09/10/18 at 13:00 Methadone HCl (Methadone Liq) 1 mg TID PO Last administered on 09/22/18 13:35; Admin Dose 1 MG; Start 09/11/18 at 21:00 Pantoprazole (Protonix Tab) 40 mg DAILY@06 PO Last administered on 09/22/18 05:34; Admin Dose 40 MG; Start 09/13/18 at 06:00 Alteplase, Recombinant (Cathflo (Activase)) 2 mg MAY REPEAT X1 PRN CATHETER IF CATHETER REMAINS OCCULUDED Last administered on 09/19/18 15:32; Admin Dose 2 MG; Start 09/19/18 at 01:30 Zinc Sulfate (Zinc Sulfate) 220 mg DAILY PO Last administered on 09/22/18 08:32; Admin Dose 220 MG; Start 09/20/18 at 09:00 Hydromorphone HCl (Dilaudid) 1 mg Q6 PRN IV SEVERE PAIN LEVEL 7-10 Last administered on 09/22/18 15:24; Admin Dose 1 MG; Start 09/20/18 at 14:00 Hydromorphone HCl (Dilaudid) 2 mg Q4H PRN PO SEVERE PAIN LEVEL 7-10 Last administered on 09/22/18 16:32; Admin Dose 2 MG; Start 09/20/18 at 14:00 Levofloxacin/ Dextrose 150 ml @ 100 mls/hr Q24H IVPB ; Start 09/22/18 at 15:00 Mupirocin (Bactroban) 1 applic TID TOP ; Start 09/22/18 at 21:00; Stop 10/06/18 at 23:00 REGINA CARRASCO M.D. Sep 22, 2018 17:53
[2018-09-22] MEDS: LEVOFLOXACIN 750MG/D5W (PMX) 150 ML IVPB SCH (18:04)
[2018-09-22 20:00] VITALS: BP 140/97; PULSE 96; RESP 19
[2018-09-22] MEDS: ZOLPIDEM 5 MG TAB PO PRN (22:53)
[2018-09-23] MEDS: MUPIROCIN 2% 22 GM OINT TOP SCH ×4 (01:01→20:12)
[2018-09-23] MEDS: HYDROmorphONE 2 MG TAB PO PRN ×2 (01:50→18:03)
[2018-09-23] MEDS: PROMETHAZINE/CODEINE 5ML CUP PO PRN ×3 (01:50→22:11)
[2018-09-23 02:29] VITALS: BP 92/54; PULSE 83; RESP 18
[2018-09-23] MEDS: DIPHENHYDRAMINE 50 MG INJ IV PRN ×4 (03:19→20:06)
[2018-09-23] MEDS: HYDROmorphONE 1 MG/ML SYG IV PRN ×4 (03:20→20:07)
[2018-09-23] MEDS: LEVOTHYROXINE 50 MCG TAB PO SCH (05:37)
[2018-09-23] MEDS: PANTOPRAZOLE (EC) 40 MG TAB PO SCH (05:37)
[2018-09-23] MEDS: LORAZEPAM 2 MG INJ IV PRN ×2 (05:43→18:03)
[2018-09-23 08:00] VITALS: BP 103/59; PULSE 96; RESP 18
[2018-09-23] MEDS: METHADONE (1 MG/ML 5 ML PO UD SYG) PO SCH ×3 (08:50→20:07)
[2018-09-23] MEDS: traZODone 50 MG TAB PO SCH ×2 (08:51→20:07)
[2018-09-23] MEDS: CHOLECALCIFEROL 2,000 UNIT CAP PO SCH (08:51)
[2018-09-23] MEDS: ZINC SULFATE 220 MG CAP PO SCH (08:51)
[2018-09-23] MEDS: LACTOBACILLUS RHAMNOSUS CAP PO SCH ×2 (08:51→20:07)
[2018-09-23] MEDS: ALTEPLASE (CATHFLO) 2 MG INJ CATHETER PRN ×2 (11:09→11:55)
[2018-09-23 14:00] VITALS: BP 100/58; PULSE 84; RESP 18
[2018-09-23] MEDS: LEVOFLOXACIN 750MG/D5W (PMX) 150 ML IVPB SCH (16:04)
--- NOTE | 2018-09-23 17:46 | PN ---
Date/Time of Note Date/Time of Note DATE: 09/23/18 TIME: 17:44 Assessment/Plan VTE Prophylaxis Risk score (from Nsg)>0 risk: 6 SCD applied (from Nsg): No SCD contraindicated: low risk/ambulating Pharmacological prophylaxis: NA/contraindicated Pharm contraindication: bleeding Lines/Catheters [facility] Central line still needed: Yes Urinary Cath still in place: No Assessment/Plan Hospital Course Hospital course: Initially evaluated for abdominal pain and diarrhea. C. difficile negative. Next is an issue was hemoptysis vs hematemesis. Patient was seen by GI and pulmonary. Bronchoscopy and EGD/ colonoscopy was negative for any acute process. Patient was seen by ENT and mild epistaxis was seen but could not account for the bleed. Laryngoscopy done. She was evaluated by the hematology Patient does not have any coagulopathy. CAT scan chest, CAT scan angiogram chest were both unremarkable. Patient was transfused at least 6 units of blood while admitted. Patient underwent repeat EGD and no active bleed seen. Patient is now scheduled for a bubble study. Plan is to transfer to tertiary care for evaluated hemoptysis of unknown etiology. The patient was reluctant yesterday and asked for a hospice consult for some reason, but however today agrees for tertiary care eval. In terms of the bacteremia. Patient will continue daptomycin until the . Levaquin till . Please see ID note for additional details. Additionally seen by behavioral health pain management. Patient has pain seeking behavior. Manipulates staff to get Dilaudid prior to doing investigational studies or agreeing to medical care plan. I attempted to cont act family and give them an update but there is nobody available at bedside or over the phone. I am unable to confirm patient's story of possible thyroid cancer. Or lymphoma. There is an old document stating the patient once told the physician that she has uterine cancer. Patient was following with with [facility] clinic and her paps were unremarkable. Patient's recent oncologist? was in [place] but now that her insurance has changed, she will need a new specialist. A/P 1. Hemoptysis vs Hematemesis? bronch/ egd (twice) & laryngoscopy (09/01 & 09/22)= [facility]. Past egd/bronch in [place] [facility]. No path lesions/ scars. No bleeding diathesis. Refused tertiary eval in the past, but presently accepting transfer to [facility]. - Vasculitis, avm? CTA, echo with bubble study, HRCT, VQ all negative. esr/sylvia/ pft's/ sputum pH -P 2. H/o HL ? chemo/ xrt; repeat chemo [facility]. Saw an Onco in [place] last year. Sp BmBx-appears negative. 3. Ho PE/ Dvt, ivc filter in place. states done at [facility] for bilat upper ext DVT 4. Diarrhea/ giardia; Rxed; however occ diarrhea noted. sp colonoscopy 08/17: patchy colitis 5. Past h/o c diff 6. H/o thyroid nodule/ ca- ? sp doug in [place]? vs [facility] 5. UTI 6. H/o H pylori; EGD- 'ulcers' within the last year. Current EGD -ve. 7. Cons bacteremia 09/01. Stenotrophomonas maltophilia bacteremia. 09/03: 2D -ve for veg. Source colon? Recent colon didnt show any mass/ cancer. Immunosuppressed? 8. Anemia; beta thalassemia trait; sp bone marrow 08/20 negative; spep ordered; but done/ -ve in the past too. 9. Chr pain syndrome. Pain seeking behavior. will try to manipulate staff for narcotics prior to medical care. 10. Prediabetes? 11. Ulcer of the frenulum linguae. 12. Ftt, stable discharge to snf at some point. Presently going to [facility] ([facility] vs..) 13. Pulmonary nodules, stable, present back in ; observe. Repeat imaging in 3 months. QGold -ve. Appreciate ID assistance 14. Fibromyalgia 15. Repeat sepsis/bacteremia gram-negative bacilli. Source? Tried to remove picc. Cont broad-spectrum antibiotics. rpt ECHO -P. 16. Rt lwr ext DVT, not a candidate for anticoagulation. Stable, cont IVCf status. 17. Nonadherence. Tries to manipulate staff for narcotics prior to therapy or investigative studies. S: 08/23 feels ok; still bleeding. no dyspnea/ fever 08/24: Events noted still having hemoptysis. No hematuria 08/25: Hemoptysis again this morning? Patient denies any hematemesis or epistaxis 08/26: Recurrent hemoptysis this morning. No dyspnea fever 08/27: Still having hemoptysis? No hematochezia melena hematuria or epistaxis. No dyspnea fever. 08/28: Events noted. She is worried about her hemoptysis. 08/29: Still bringing out a lot of blood. Hemoptysis versus hematemesis. Chronic stable we will consult GI. 09/06: Intermittent hemoptysis. Now having diarrhea without any GI bleed. No fevers. 09/07: Intermittent hemoptysis. Denies any fever vomiting GI bleed. No dyspnea. Does not have a regular oncologist and no outpatient support. Will need snf 09/08: 4 bouts diarrhea. no n/f. 'pain' in legs, abd. no known agg/rel factors. toradol- headache? no h/o rash/ dyspnea 09/09: Hemoptysis noted again. 75 m? [employer], vss. crying, but refusing working/ cxr. Denies any chest pain postnasal drip. No GI bleed. States of having lower abd/ suprapubic tenderness but no dysuria hematuria. Back pain upper/ around her shoulder blades. 09/10: coughing/ vomiting blood. 'pain', lwr abd/ back. now placed in front of nursing station 09/11: hemoptysis noted. Refuses therapy/ studies without dilaudid. Threatened to pull out picc. For tertiary eval. 09/12: no events 09/20: Fever blood cx noted. Hemoptysis for for blood transfusion. 09/21: Intermittent hemoptysis. Transfused overnight. No dyspnea or cough. Min ambulation. refused to have picc removed last night. still has pain seeking behavior. 09/22: No active bleed on ENT eval. poor IV access, May not be able to remove the PICC. 09/23: Refused antibiotics. Refused x-ray imaging. Now agreeable to VQ scan. Intermittent hemoptysis noted. O vss PE No pallor. Throat clear, adentous Reg s1s2 no mrg Clear Benign, nt; nd; no RRG No edema/ Homens. lt picc c/d/i Result Diagram: 09/23/18 1107 09/23/18 1107 Results 24hrs Laboratory Tests Test 09/23/18 11:07 White Blood Count 4.1 L Red Blood Count 3.75 L Hemoglobin 9.4 L Hematocrit 30.0 L Mean Corpuscular Volume 80.0 L Mean Corpuscular Hemoglobin 25.1 L Mean Corpuscular Hemoglobin Concent 31.3 L Red Cell Distribution Width 19.2 H Platelet Count 210 Mean Platelet Volume 10.1 Immature Granulocytes % 0.500 H Neutrophils % 61.2 Lymphocytes % 26.3 Monocytes % 8.1 Eosinophils % 3.2 Basophils % 0.7 Nucleated Red Blood Cells % 0.0 Immature Granulocytes # 0.020 Neutrophils # 2.5 Lymphocytes # 1.1 Monocytes # 0.3 Eosinophils # 0.1 Basophils # 0.0 Nucleated Red Blood Cells # 0.0 Sodium Level 140 Potassium Level 3.4 L Chloride Level 106 Carbon Dioxide Level 26 Anion Gap 8 Blood Urea Nitrogen 13 Creatinine 0.39 L Est Glomerular Filtrat Rate mL/min > 60 Glucose Level 166 Calcium Level 9.0 Exam/Review of Systems Exam Vitals Vital Signs Date Temp Pulse Resp B/P (MAP) Pulse Ox O2 O2 Flow FiO2 Time Delivery Rate 09/23/18 97.9 84 18 100/58 98 14:00 (72) 09/23/18 Room Air 08:00 Intake and Output 09/22/18 09/22/18 09/23/18 1515:00 23:00 07:00 IntakeIntake Total 430 ml 380 ml BalanceBalance 430 ml 380 ml Results Results 24hrs Laboratory Tests Test 09/23/18 11:07 White Blood Count 4.1 L Red Blood Count 3.75 L Hemoglobin 9.4 L Hematocrit 30.0 L Mean Corpuscular Volume 80.0 L Mean Corpuscular Hemoglobin 25.1 L Mean Corpuscular Hemoglobin Concent 31.3 L Red Cell Distribution Width 19.2 H Platelet Count 210 Mean Platelet Volume 10.1 Immature Granulocytes % 0.500 H Neutrophils % 61.2 Lymphocytes % 26.3 Monocytes % 8.1 Eosinophils % 3.2 Basophils % 0.7 Nucleated Red Blood Cells % 0.0 Immature Granulocytes # 0.020 Neutrophils # 2.5 Lymphocytes # 1.1 Monocytes # 0.3 Eosinophils # 0.1 Basophils # 0.0 Nucleated Red Blood Cells # 0.0 Sodium Level 140 Potassium Level 3.4 L Chloride Level 106 Carbon Dioxide Level 26 Anion Gap 8 Blood Urea Nitrogen 13 Creatinine 0.39 L Est Glomerular Filtrat Rate mL/min > 60 Glucose Level 166 Calcium Level 9.0 Medications Medication Current Medications IV Flush (NS 3 ml) 3 ml PER PROTOCOL IV ; Start 08/13/18 at 20:00 Ondansetron HCl (Zofran Inj) 4 mg Q6H PRN IV NAUSEA AND/OR VOMITING Last administered on 09/13/18at 00:30; Admin Dose 4 MG; Start 08/13/18 at 20:00 Glucose (Glutose) 15 gm Q15M PRN PO DECREASED GLUCOSE; Start 08/17/18 at 10:30 Glucose (Glutose) 22.5 gm Q15M PRN PO DECREASED GLUCOSE; Start 08/17/18 at 10:30 Dextrose (D50w Syringe) 25 ml Q15M PRN IV DECREASED GLUCOSE; Start 08/17/18 at 10:30 Dextrose (D50w Syringe) 50 ml Q15M PRN IV DECREASED GLUCOSE; Start 08/17/18 at 10:30 Glucagon (Glucagen) 1 mg Q15M PRN IM DECREASED GLUCOSE; Start 08/17/18 at 10:30 Glucose (Glutose) 15 gm Q15M PRN BUCCAL DECREASED GLUCOSE; Start 08/17/18 at 10:30 Zolpidem Tartrate (Ambien) 10 mg QHS PRN PO INSOMNIA Last administered on 09/22/18at 22:53; Admin Dose 10 MG; Start 08/20/18 at 11:30 Phenol (Cepastat Lozenge) 1 lozenge Q1H PRN MT THROAT PAIN Last administered on 09/17/18at 10:37; Admin Dose 1 LOZENGE; Start 08/21/18 at 11:00 Acetaminophen (Tylenol Tab) 500 mg Q6H PRN PO MILD PAIN(1-3)OR ELEVATED TEMP Last administered on 09/19/18at 10:13; Admin Dose 500 MG; Start 09/01/18 at 18:30 Lidocaine (Xylocaine (Viscous)) 15 ml QID PRN PO Pain in the mouth; Start 09/02/18 at 10:30 Trazodone HCl (Desyrel) 50 mg BID PO Last administered on 09/23/18at 08:51; Ad min Dose 50 MG; Start 09/08/18 at 12:30 Lactobacillus Acidophilus/ Rhamnosus (Culturelle) 1 cap BID PO Last administered on 09/23/18at 08:51; Admin Dose 1 CAP; Start 09/08/18 at 12:00 Promethazine HCl/ Codeine (Phenergan/ Codeine) 10 ml Q4H PRN PO COUGH Last administered on 09/23/18 10:34; Admin Dose 10 ML; Start 09/09/18 at 17:30 Cholecalciferol (Vitamin D) 2,000 unit DAILY PO Last administered on 09/23/18 08:51; Admin Dose 2,000 UNIT; Start 09/13/18 at 09:00 Diphenhydramine HCl (Benadryl) 50 mg Q4 PRN IV ITCHING Last administered on 09/23/18 14:01; Admin Dose 50 MG; Start 09/10/18 at 13:00 Levothyroxine Sodium (Synthroid) 50 mcg BEFORE BREAKFAST PO Last administered on 09/23/18 05:37; Admin Dose 50 MCG; Start 09/13/18 at 07:00 Lorazepam (Ativan) 2 mg Q6 PRN IV Anxiety Last administered on 09/23/18 05:43; Admin Dose 2 MG; Start 09/10/18 at 13:00 Methadone HCl (Methadone Liq) 1 mg TID PO Last administered on 09/23/18 12:25; Admin Dose 1 MG; Start 09/11/18 at 21:00 Pantoprazole (Protonix Tab) 40 mg DAILY@06 PO Last administered on 09/23/18 05:37; Admin Dose 40 MG; Start 09/13/18 at 06:00 Alteplase, Recombinant (Cathflo (Activase)) 2 mg MAY REPEAT X1 PRN CATHETER IF CATHETER REMAINS OCCULUDED Last administered on 09/23/18 11:55; Admin Dose 2 MG; Start 09/19/18 at 01:30 Zinc Sulfate (Zinc Sulfate) 220 mg DAILY PO Last administered on 09/23/18 08:51; Admin Dose 220 MG; Start 09/20/18 at 09:00 Hydromorphone HCl (Dilaudid) 1 mg Q6 PRN IV SEVERE PAIN LEVEL 7-10 Last administered on 09/23/18 13:57; Admin Dose 1 MG; Start 09/20/18 at 14:00 Hydromorphone HCl (Dilaudid) 2 mg Q4H PRN PO SEVERE PAIN LEVEL 7-10 Last administered on 09/23/18at 01:50; Admin Dose 2 MG; Start 09/20/18 at 14:00 Levofloxacin/ Dextrose 150 ml @ 100 mls/hr Q24H IVPB Last administered on 09/23/18at 16:04; Admin Dose 100 MLS/HR; Start 09/22/18 at 15:00 Mupirocin (Bactroban) 1 applic TID TOP Last administered on 09/23/18at 12:26; Admin Dose 1 APPLIC; Start 09/22/18 at 21:00; Stop 10/06/18 at 23:00 LEON CORONA MD Sep 23, 2018 17:46
[2018-09-23 20:17] VITALS: BP 125/72; PULSE 91; RESP 18
[2018-09-23] MEDS: ZOLPIDEM 5 MG TAB PO PRN (21:47)
--- NOTE | 2018-09-23 23:16 | CONS ---
Assessment/Plan Assessment/Plan Hospital Course (Demo Recall) sepsis, endovascular infection - recurrent sepsis 09/19/2018 due to bacteremia - recurrent bacteremia due to stenotrophomonas - s/p bacteremia d/t Coag Neg Staph and Stenotrophomonas maltophilia on 09/01/2018 and 09/02/2018; took daptomycin and levofloxacin - h/o "bacteremia due to enterococci" according to progress notes at [facility], but the actual microbiology report indicated blood culture was positive for ESBL+E. coli - h/o fungemia due to kaley glabrata, sensitive to fluconazole and to micafungin/caspofungin at [facility] - transthoracic echo on 09/04/2018 and 09/23/2018 had no mention on valvular vegetation pulm - persistent hemoptysis of unknown etiology: Pt reports negative PPD at [facility] - according to the microbiology report at [facility], Pt had ESBL+E. coli in her respiratory culture. Sputum cultures for AFB and fungi were negative at 8 weeks and at 4 weeks respectively at [facility] - Pt had negative bronchoscopy in 05/2018 at [facility], another at [facility] in 2017, and on 08/25/2018 at [facility] (no e/o bronchial airway bleeding according to Dr. Bello) - Numerous tiny lung nodules, increased in number from the chest CT dated May 22, 2018, with largest measuring 0.3 cm in the left apex, CT on 09/10/2018 indicated: stable bilateral micronodules dating back to examination of at least 01/29/2017; RLL fibrosis, CT on 09/22/2018 noted numerous small bilateral peripheral pulmonary nodules and scattered ground-glass opacities - Kaley albicans in sputum culture on 08/28/2018 and 09/21/2018, a colonizer - so far: aspergillus antibody not detected, HIV negative, coccidioidomycosis serology negative, TB Quant Gold negative, 1,3 beta d glucan negative, procalc 09/01/18 was 0.30; Sputum for O&P was negative, lung scan on 09/23/2018 had low prob of PE, GI - Delgado-colitis per CT 08/13/18 - S/p diarrhea on 09/06/18 - s/p EGD on 09/10/2018: no GI bleeding noted, reportedly completely normal - S/p sigmoidoscopy with biopsy 08/17/2018; path showed no e/o colitis or malignancy from transverse colon and rectum biopsies - S/p bloody diarrhea d/t Giardia; Pt took metronidazole for Giardia (08/14/2018- 08/21/2018) in 07/2018. - H/o C diff toxin negative PCR positive status at [facility]. Took a course of Fidaxomyxin x 10 days. C. diff was negative on 08/14/2018 at [facility] - H/o cholecystectomy - Stool for O&P was negative 09/12/18 heme/oncology - recurrent DVT despite IVC filter: DVT of R proximal mid femoral veins, partial DVT of R distal femoral vein on [facility]ARON 09/19/2018 - S/p CT guided bone marrow aspiration and biopsy 08/20/2018 - Microcytic anemia requiring PRBC d/t acute blood loss - Electrophoresis 08/19/18 showed: Evaluation suggests beta thalassemia trait with anemia. Iron deficiency must be ruled out. - H/o BUE and RLE DVT, s/p IVC filter in January 2018 - H/o Hodgkin lymphoma diagnosed in 2006 - H/o thyroid CA diagnosed in 2005, s/p resection, chemo and XRT - IVC filter placement - Patient reports that approximately 2 years ago (2016?) she had an abnormal mammogram of Left breast and that she was scheduled for a biopsy approximately 4 months ago but d/t insurance change did not receive the biopsy, on 09/13/18 patient reported brown drainage from left nipple x2 nights - +Family hx of cancer (father of stomach CA, mother of lymphoma, paternal uncle had breast CA and 12 yo daughter has h/o brain tumor s/p surgery and resulting blindness) , renal - recurrent UTI - h/o UTI due to ESBL+E. coli - S/p PO levofloxacin (08/24/2018-08/28/2018) for probable UTI other conditions - s/p a painful ulcer at frenulum, resolving. According to Pt, topical steroid would worsen the pain. HIV negative, RPR non reactive, herpes 1 and 2 by PCR not detected; s/p trial of PO valacyclovir (08/27/2018-09/01/2018) - s/p bilateral conjunctivitis - improved s/p Cipro eye drops (08/18/18-08/23/18) - myalgia with hemoptysis, CK level stable (<20 on 09/03/2018, 39 on 09/10/2018, and <20 on 09/17/2018) - Hypothyroidism - HLD - S/p hypokalemia - OA - depression/anxiety - H/o x2 - Allergy to PCN and vancomycin (reaction unknown) Previously Pt took: daptomycin (09/02/2018-09/17/2018, 09/19/2018-), cefepime (09/03/18 - 09/05/18), meropenem (09/19/2018-09/21/2018) Recommendations: - ordered: WBC tagged scan to localize a focus of bacteremia (infection) and bleeding (inflammation) - continue levofloxacin (08/25/18-08/27/2018, 09/05/2018-09/18/2018, restart 09/22/2018-) - I recommend removal of PICC as she continues to have chills. management was d/w patient, FERNANDO Sanchez Consultation Date/Type/Reason Admit Date/Time Aug 13, 2018 at 17:22 Initial Consult Date 08/19/18 Type of Consult ID Requesting Provider: SHAQUILLE HARRIS Date/Time of Note DATE: 09/23/18 TIME: 23:14 24 HR Interval Summary Constitutional: chills, poor po Detailed Summary Eyes: no complaints ENT: no complaints Respiratory: cough, other (hemoptysis) Cardiovascular: no complaints Gastrointestinal: nausea Genitourinary: no complaints Musculoskeletal: other (generalized myalgia) Skin: no complaints Neurologic: no complaints Psychological: other (sad) Exam/Review of Systems Exam Vitals Vital Signs Date Temp Pulse Resp B/P (MAP) Pulse Ox O2 O2 Flow FiO2 Time Delivery Rate 09/23/18 97.4 91 18 125/72 96 20:17 (89) 09/23/18 Room Air 08:00 Intake and Output 09/22/18 09/22/18 09/23/18 1414:59 22:59 06:59 IntakeIntake Total 430 ml 380 ml BalanceBalance 430 ml 380 ml Constitutional: alert, frail Psych: no complaints, nl mood/affect Head: normocephalic, atraumatic Eyes: nl conjunctiva, nl lids, nl sclera ENMT: nl external ears & nose, nl nasal mucosa & septum, mucosa pink and moist Neck: supple, other (not swollen) Respiratory: clear to auscultation, normal air movement Cardiovascular: regular rate and rhythm, nl pulses Gastrointestinal: soft, non-tender; No tender Musculoskeletal: nl extremities to inspection Extremities: No edema Neurological: SLABBER II-XII intact, nl mental status, nl speech Results Result Diagram: 09/23/18 1107 09/23/18 1107 Results 24hrs Laboratory Tests Test 09/23/18 11:07 White Blood Count 4.1 L Red Blood Count 3.75 L Hemoglobin 9.4 L Hematocrit 30.0 L Mean Corpuscular Volume 80.0 L Mean Corpuscular Hemoglobin 25.1 L Mean Corpuscular Hemoglobin Concent 31.3 L Red Cell Distribution Width 19.2 H Platelet Count 210 Mean Platelet Volume 10.1 Immature Granulocytes % 0.500 H Neutrophils % 61.2 Lymphocytes % 26.3 Monocytes % 8.1 Eosinophils % 3.2 Basophils % 0.7 Nucleated Red Blood Cells % 0.0 Immature Granulocytes # 0.020 Neutrophils # 2.5 Lymphocytes # 1.1 Monocytes # 0.3 Eosinophils # 0.1 Basophils # 0.0 Nucleated Red Blood Cells # 0.0 Sodium Level 140 Potassium Level 3.4 L Chloride Level 106 Carbon Dioxide Level 26 Anion Gap 8 Blood Urea Nitrogen 13 Creatinine 0.39 L Est Glomerular Filtrat Rate mL/min > 60 Glucose Level 166 Calcium Level 9.0 Rheumatoid Factor Screen NEGATIVE Medications Medication Current Medications IV Flush (NS 3 ml) 3 ml PER PROTOCOL IV ; Start 08/13/18 at 20:00 Ondansetron HCl (Zofran Inj) 4 mg Q6H PRN IV NAUSEA AND/OR VOMITING Last administered on 09/13/18at 00:30; Admin Dose 4 MG; Start 08/13/18 at 20:00 Glucose (Glutose) 15 gm Q15M PRN PO DECREASED GLUCOSE; Start 08/17/18 at 10:30 Glucose (Glutose) 22.5 gm Q15M PRN PO DECREASED GLUCOSE; Start 08/17/18 at 10:30 Dextrose (D50w Syringe) 25 ml Q15M PRN IV DECREASED GLUCOSE; Start 08/17/18 at 10:30 Dextrose (D50w Syringe) 50 ml Q15M PRN IV DECREASED GLUCOSE; Start 08/17/18 at 10:30 Glucagon (Glucagen) 1 mg Q15M PRN IM DECREASED GLUCOSE; Start 08/17/18 at 10:30 Glucose (Glutose) 15 gm Q15M PRN BUCCAL DECREASED GLUCOSE; Start 08/17/18 at 10:30 Zolpidem Tartrate (Ambien) 10 mg QHS PRN PO INSOMNIA Last administered on 09/23/18 21:47; Admin Dose 10 MG; Start 08/20/18 at 11:30 Phenol (Cepastat Lozenge) 1 lozenge Q1H PRN MT THROAT PAIN Last administered on 09/17/18 10:37; Admin Dose 1 LOZENGE; Start 08/21/18 at 11:00 Acetaminophen (Tylenol Tab) 500 mg Q6H PRN PO MILD PAIN(1-3)OR ELEVATED TEMP Last administered on 09/19/18 10:13; Admin Dose 500 MG; Start 09/01/18 at 18:30 Lidocaine (Xylocaine (Viscous)) 15 ml QID PRN PO Pain in the mouth; Start 09/02/18 at 10:30 Trazodone HCl (Desyrel) 50 mg BID PO Last administered on 09/23/18 20:07; Admin Dose 50 MG; Start 09/08/18 at 12:30 Lactobacillus Acidophilus/ Rhamnosus (Culturelle) 1 cap BID PO Last administered on 09/23/18 20:07; Admin Dose 1 CAP; Start 09/08/18 at 12:00 Promethazine HCl/ Codeine (Phenergan/ Codeine) 10 ml Q4H PRN PO COUGH Last ad ministered on 09/23/18 22:11; Admin Dose 10 ML; Start 09/09/18 at 17:30 Cholecalciferol (Vitamin D) 2,000 unit DAILY PO Last administered on 09/23/18 08:51; Admin Dose 2,000 UNIT; Start 09/13/18 at 09:00 Diphenhydramine HCl (Benadryl) 50 mg Q4 PRN IV ITCHING Last administered on 09/23/18 20:06; Admin Dose 50 MG; Start 09/10/18 at 13:00 Levothyroxine Sodium (Synthroid) 50 mcg BEFORE BREAKFAST PO Last administered on 09/23/18 05:37; Admin Dose 50 MCG; Start 09/13/18 at 07:00 Lorazepam (Ativan) 2 mg Q6 PRN IV Anxiety Last administered on 09/23/18 18:03; Admin Dose 2 MG; Start 09/10/18 at 13:00 Methadone HCl (Methadone Liq) 1 mg TID PO Last administered on 09/23/18 20:07; Admin Dose 1 MG; Start 09/11/18 at 21:00 Pantoprazole (Protonix Tab) 40 mg DAILY@06 PO Last administered on 09/23/18 05:37; Admin Dose 40 MG; Start 09/13/18 at 06:00 Alteplase, Recombinant (Cathflo (Activase)) 2 mg MAY REPEAT X1 PRN CATHETER IF CATHETER REMAINS OCCULUDED Last administered on 09/23/18 11:55; Admin Dose 2 MG; Start 09/19/18 at 01:30 Zinc Sulfate (Zinc Sulfate) 220 mg DAILY PO Last administered on 09/23/18 08:51; Admin Dose 220 MG; Start 09/20/18 at 09:00 Hydromorphone HCl (Dilaudid) 1 mg Q6 PRN IV SEVERE PAIN LEVEL 7-10 Last administered on 09/23/18 20:07; Admin Dose 1 MG; Start 09/20/18 at 14:00 Hydromorphone HCl (Dilaudid) 2 mg Q4H PRN PO SEVERE PAIN LEVEL 7-10 Last administered on 09/23/18 18:03; Admin Dose 2 MG; Start 09/20/18 at 14:00 Levofloxacin/ Dextrose 150 ml @ 100 mls/hr Q24H IVPB Last administered on 09/23/18 16:04; Admin Dose 100 MLS/HR; Start 09/22/18 at 15:00 Mupirocin (Bactroban) 1 applic TID TOP Last administered on 09/23/18 20:12; Admin Dose 1 APPLIC; Start 09/22/18 at 21:00; Stop 10/06/18 at 23:00 REGINA CARRASCO M.D. Sep 23, 2018 23:16
[2018-09-24] MEDS: LORAZEPAM 2 MG INJ IV PRN ×3 (01:15→15:17)
[2018-09-24 02:00] VITALS: BP 133/69; PULSE 73; RESP 18
[2018-09-24] MEDS: DIPHENHYDRAMINE 50 MG INJ IV PRN ×4 (02:00→22:09)
[2018-09-24] MEDS: HYDROmorphONE 1 MG/ML SYG IV PRN ×4 (02:01→22:12)
[2018-09-24] MEDS: PROMETHAZINE/CODEINE 5ML CUP PO PRN ×4 (04:51→22:18)
[2018-09-24] MEDS: HYDROmorphONE 2 MG TAB PO PRN ×2 (04:51→17:23)
[2018-09-24] MEDS: LEVOTHYROXINE 50 MCG TAB PO SCH (05:42)
[2018-09-24] MEDS: PANTOPRAZOLE (EC) 40 MG TAB PO SCH (05:43)
[2018-09-24 08:22] VITALS: BP 101/57; PULSE 100; RESP 19
[2018-09-24] MEDS: LACTOBACILLUS RHAMNOSUS CAP PO SCH ×2 (09:16→22:09)
[2018-09-24] MEDS: METHADONE (1 MG/ML 5 ML PO UD SYG) PO SCH ×3 (09:16→20:54)
[2018-09-24] MEDS: CHOLECALCIFEROL 2,000 UNIT CAP PO SCH (09:16)
[2018-09-24] MEDS: ZINC SULFATE 220 MG CAP PO SCH (09:16)
[2018-09-24] MEDS: traZODone 50 MG TAB PO SCH ×2 (09:16→20:54)
[2018-09-24] MEDS: MUPIROCIN 2% 22 GM OINT TOP SCH ×3 (09:18→20:55)
--- NOTE | 2018-09-24 10:18 | PN ---
Date/Time of Note Date/Time of Note DATE: 09/24/18 TIME: 10:17 Assessment/Plan VTE Prophylaxis Risk score (from Nsg)>0 risk: 6 SCD applied (from Ns): No SCD contraindicated: low risk/ambulating Pharmacological prophylaxis: NA/contraindicated Pharm contraindication: bleeding Lines/Catheters IV [facility] ([facility] PICC Line Central line still needed: Yes Urinary Cath still in place: No Assessment/Plan Hospital Course Hospital course: Initially evaluated for abdominal pain and diarrhea. C. difficile negative. Next is an issue was hemoptysis vs hematemesis. Patient was seen by GI and pulmonary. Bronchoscopy and EGD/ colonoscopy was negative for any acute process. Patient was seen by ENT and mild epistaxis was seen but could not account for the bleed. Laryngoscopy done. She was evaluated by the hematology Patient does not have any coagulopathy. CAT scan chest, CAT scan angiogram chest were both unremarkable. Patient was transfused at least 6 units of blood while admitted. Patient underwent repeat EGD and no active bleed seen. Patient is now scheduled for a bubble study. Plan is to transfer to tertiary care for evaluated hemoptysis of unknown etiology. The patient was reluctant yesterday and asked for a hospice consult for some reason, but however today agrees for tertiary care eval. In terms of the bacteremia. Patient will continue daptomycin until the . Levaquin till . Please see ID note for additional details. Additionally seen by behavioral health pain management. Patient has pain seeking behavior. Manipulates staff to get Dilaudid prior to doing investigational studies or agreeing to medical care plan. I attempted to conta ct family and give them an update but there is nobody available at bedside or over the phone. I am unable to confirm patient's story of possible thyroid cancer. Or lymphoma. There is an old document stating the patient once told the physician that she has uterine cancer. Patient was following with with [facility] clinic and her paps were unremarkable. Patient's recent oncologist? was in [place] but now that her insurance has changed, she will need a new specialist. A/P 1. Hemoptysis vs Hematemesis? bronch/ egd (twice) & laryngoscopy (09/01 & 09/22)= [facility]. Past egd/bronch in [place] [facility]. No path lesions/ scars. No bleeding diathesis. Refused tertiary eval in the past, but presently accepting transfer to [facility]. - Vasculitis, avm? CTA, echo with bubble study, HRCT, VQ all negative. esr/sylvia/ pft's/ sputum pH -P May need repeat bronchoscopy. 2. H/o HL ? chemo/ xrt; repeat chemo US. Saw an Onco in [place] last year. Sp BmBx-appears negative. 3. Ho PE/ Dvt, ivc filter in place. states done at [facility] for bilat upper ext DVT 4. Diarrhea/ giardia; Rxed; however occ diarrhea noted. sp colonoscopy 08/17: patchy colitis 5. Past h/o c diff 6. H/o thyroid nodule/ ca- ? sp doug in [place]? vs [facility] 5. UTI 6. H/o H pylori; EGD- 'ulcers' within the last year. Current EGD -ve. 7. Cons bacteremia 09/01. Stenotrophomonas maltophilia bacteremia. 09/03: 2D -ve for veg. Source colon? Recent colon didnt show any mass/ cancer. Immunosuppressed? 8. Anemia; beta thalassemia trait; sp bone marrow 08/20 negative; spep ordered; but done/ -ve in the past too. 9. Chr pain syndrome. Pain seeking behavior. will try to manipulate staff for narcotics prior to medical care. 10. Prediabetes? 11. Ulcer of the frenulum linguae. 12. Ftt, stable discharge to snf at some point. Presently going to [facility] Care ([facility] vs..) 13. Pulmonary nodules, stable, present back in ; observe. Repeat imaging in 3 months. QGold -ve. Appreciate ID assistance 14. Fibromyalgia 15. Repeat sepsis/bacteremia gram-negative bacilli. Source? Tried to remove picc. Cont broad-spectrum antibiotics. rpt ECHO -P. White cell scan ordered. 16. Rt lwr ext DVT, not a candidate for anticoagulation. Stable, cont IVCf status. 17. Nonadherence. Tries to manipulate staff for narcotics prior to therapy or investigative studies. S: 08/23 feels ok; still bleeding. no dyspnea/ fever 08/24: Events noted still having hemoptysis. No hematuria 08/25: Hemoptysis again this morning? Patient denies any hematemesis or epistaxis 08/26: Recurrent hemoptysis this morning. No dyspnea fever 08/27: Still having hemoptysis? No hematochezia melena hematuria or epistaxis. No dyspnea fever. 08/28: Events noted. She is worried about her hemoptysis. 08/29: Still bringing out a lot of blood. Hemoptysis versus hematemesis. Chronic stable we will consult GI. 09/06: Intermittent hemoptysis. Now having diarrhea without any GI bleed. No fevers. 09/07: Intermittent hemoptysis. Denies any fever vomiting GI bleed. No dyspnea. Does not have a regular oncologist and no outpatient support. Will need snf 09/08: 4 bouts diarrhea. no n/f. 'pain' in legs, abd. no known agg/rel factors. toradol- headache? no h/o rash/ dyspnea 09/09: Hemoptysis noted again. 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 crying, but refusing working/ cxr. Denies any chest pain postnasal drip. No GI bleed. States of having lower abd/ suprapubic tenderness but no dysuria hematuria. Back pain upper/ around her shou lder blades. 09/10: coughing/ vomiting blood. 'pain', lwr abd/ back. now placed in front of nursing station 09/11: hemoptysis noted. Refuses therapy/ studies without dilaudid. Threatened to pull out picc. For tertiary eval. 09/12: no events 09/20: Fever blood cx noted. Hemoptysis for for blood transfusion. 09/21: Intermittent hemoptysis. Transfused overnight. No dyspnea or cough. Min ambulation. refused to have picc removed last night. still has pain seeking behavior. 09/22: No active bleed on ENT eval. poor IV access, May not be able to remove the PICC. 09/23: Refused antibiotics. Refused x-ray imaging. Now agreeable to VQ scan. Intermittent hemoptysis noted. 09/24: Recurrent intermittent hemoptysis/hematemesis. Nonadherence continues. O vss PE No pallor. Throat clear, adentous Reg s1s2 no mrg Clear Benign, nt; nd; no RRG No edema/ Homens. lt picc c/d/i Disposition: To tertiary care if acceptable. Otherwise maybe snf next week; monitor hemoglobin twice weekly. Result Diagram: 09/23/18 1107 09/23/18 1107 Results 24hrs Laboratory Tests Test 09/23/18 11:07 White Blood Count 4.1 L Red Blood Count 3.75 L Hemoglobin 9.4 L Hematocrit 30.0 L Mean Corpuscular Volume 80.0 L Mean Corpuscular Hemoglobin 25.1 L Mean Corpuscular Hemoglobin Concent 31.3 L Red Cell Distribution Width 19.2 H Platelet Count 210 Mean Platelet Volume 10.1 Immature Granulocytes % 0.500 H Neutrophils % 61.2 Lymphocytes % 26.3 Monocytes % 8.1 Eosinophils % 3.2 Basophils % 0.7 Nucleated Red Blood Cells % 0.0 Immature Granulocytes # 0.020 Neutrophils # 2.5 Lymphocytes # 1.1 Monocytes # 0.3 Eosinophils # 0.1 Basophils # 0.0 Nucleated Red Blood Cells # 0.0 Sodium Level 140 Potassium Level 3.4 L Chloride Level 106 Carbon Dioxide Level 26 Anion Gap 8 Blood Urea Nitrogen 13 Creatinine 0.39 L Est Glomerular Filtrat Rate mL/min > 60 Glucose Level 166 Calcium Level 9.0 Rheumatoid Factor Screen NEGATIVE Exam/Review of Systems Exam Vitals Vital Signs Date Temp Pulse Resp B/P (MAP) Pulse Ox O2 O2 Flow FiO2 Time Delivery Rate 09/24/18 99.1 100 19 101/57 98 08:22 (72) 09/23/18 Room Air 08:00 Intake and Output 09/23/18 09/23/18 09/24/18 1515:00 23:00 07:00 IntakeIntake Total 800 ml 550 ml BalanceBalance 800 ml 550 ml Results Results 24hrs Laboratory Tests Test 09/23/18 11:07 White Blood Count 4.1 L Red Blood Count 3.75 L Hemoglobin 9.4 L Hematocrit 30.0 L Mean Corpuscular Volume 80.0 L Mean Corpuscular Hemoglobin 25.1 L Mean Corpuscular Hemoglobin Concent 31.3 L Red Cell Distribution Width 19.2 H Platelet Count 210 Mean Platelet Volume 10.1 Immature Granulocytes % 0.500 H Neutrophils % 61.2 Lymphocytes % 26.3 Monocytes % 8.1 Eosinophils % 3.2 Basophils % 0.7 Nucleated Red Blood Cells % 0.0 Immature Granulocytes # 0.020 Neutrophils # 2.5 Lymphocytes # 1.1 Monocytes # 0.3 Eosinophils # 0.1 Basophils # 0.0 Nucleated Red Blood Cells # 0.0 Sodium Level 140 Potassium Level 3.4 L Chloride Level 106 Carbon Dioxide Level 26 Anion Gap 8 Blood Urea Nitrogen 13 Creatinine 0.39 L Est Glomerular Filtrat Rate mL/min > 60 Glucose Level 166 Calcium Level 9.0 Rheumatoid Factor Screen NEGATIVE Medications Medication Current Medications IV Flush (NS 3 ml) 3 ml PER PROTOCOL IV ; Start 08/13/18 at 20:00 Ondansetron HCl (Zofran Inj) 4 mg Q6H PRN IV NAUSEA AND/OR VOMITING Last administered on 09/13/18at 00:30; Admin Dose 4 MG; Start 08/13/18 at 20:00 Glucose (Glutose) 15 gm Q15M PRN PO DECREASED GLUCOSE; Start 08/17/18 at 10:30 Glucose (Glutose) 22.5 gm Q15M PRN PO DECREASED GLUCOSE; Start 08/17/18 at 10:30 Dextrose (D50w Syringe) 25 ml Q15M PRN IV DECREASED GLUCOSE; Start 08/17/18 at 10:30 Dextrose (D50w Syringe) 50 ml Q15M PRN IV DECREASED GLUCOSE; Start 08/17/18 at 10:30 Glucagon (Glucagen) 1 mg Q15M PRN IM DECREASED GLUCOSE; Start 08/17/18 at 10:30 Glucose (Glutose) 15 gm Q15M PRN BUCCAL DECREASED GLUCOSE; Start 08/17/18 at 10:30 Zolpidem Tartrate (Ambien) 10 mg QHS PRN PO INSOMNIA Last administered on 09/23/18at 21:47; Admin Dose 10 MG; Start 08/20/18 at 11:30 Phenol (Cepastat Lozenge) 1 lozenge Q1H PRN MT THROAT PAIN Last administered on 09/17/18at 10:37; Admin Dose 1 LOZENGE; Start 08/21/18 at 11:00 Acetaminophen (Tylenol Tab) 500 mg Q6H PRN PO MILD PAIN(1-3)OR ELEVATED TEMP Last administered on 09/19/18at 10:13; Admin Dose 500 MG; Start 09/01/18 at 18:30 Lidocaine (Xylocaine (Viscous)) 15 ml QID PRN PO Pain in the mouth; Start 09/02/18 at 10:30 Trazodone HCl (Desyrel) 50 mg BID PO Last administered on 09/24/18 09:16; Admin Dose 50 MG; Start 09/08/18 at 12:30 Lactobacillus Acidophilus/ Rhamnosus (Culturelle) 1 cap BID PO Last administered on 09/24/18 09:16; Admin Dose 1 CAP; Start 09/08/18 at 12:00 Promethazine HCl/ Codeine (Phenergan/ Codeine) 10 ml Q4H PRN PO COUGH Last admi nistered on 09/24/18 04:51; Admin Dose 10 ML; Start 09/09/18 at 17:30 Cholecalciferol (Vitamin D) 2,000 unit DAILY PO Last administered on 09/24/18 09:16; Admin Dose 2,000 UNIT; Start 09/13/18 at 09:00 Diphenhydramine HCl (Benadryl) 50 mg Q4 PRN IV ITCHING Last administered on 09/24/18 08:08; Admin Dose 50 MG; Start 09/10/18 at 13:00 Levothyroxine Sodium (Synthroid) 50 mcg BEFORE BREAKFAST PO Last administered on 09/24/18 05:42; Admin Dose 50 MCG; Start 09/13/18 at 07:00 Lorazepam (Ativan) 2 mg Q6 PRN IV Anxiety Last administered on 09/24/18 09:23; Admin Dose 2 MG; Start 09/10/18 at 13:00 Methadone HCl (Methadone Liq) 1 mg TID PO Last administered on 09/24/18 09:16; Admin Dose 1 MG; Start 09/11/18 at 21:00 Pantoprazole (Protonix Tab) 40 mg DAILY@06 PO Last administered on 09/24/18 0 5:43; Admin Dose 40 MG; Start 09/13/18 at 06:00 Alteplase, Recombinant (Cathflo (Activase)) 2 mg MAY REPEAT X1 PRN CATHETER IF CATHETER REMAINS OCCULUDED Last administered on 09/23/18 11:55; Admin Dose 2 MG; Start 09/19/18 at 01:30 Zinc Sulfate (Zinc Sulfate) 220 mg DAILY PO Last administered on 09/24/18 09:16; Admin Dose 220 MG; Start 09/20/18 at 09:00 Hydromorphone HCl (Dilaudid) 1 mg Q6 PRN IV SEVERE PAIN LEVEL 7-10 Last administered on 09/24/18 08:12; Admin Dose 1 MG; Start 09/20/18 at 14:00 Hydromorphone HCl (Dilaudid) 2 mg Q4H PRN PO SEVERE PAIN LEVEL 7-10 Last administered on 09/24/18 04:51; Admin Dose 2 MG; Start 09/20/18 at 14:00 Levofloxacin/ Dextrose 150 ml @ 100 mls/hr Q24H IVPB Last administered on 09/23/18 16:04; Admin Dose 100 MLS/HR; Start 09/22/18 at 15:00 Mupirocin (Bactroban) 1 applic TID TOP Last administered on 09/24/18 09:18; Admin Dose 1 APPLIC; Start 09/22/18 at 21:00; Stop 10/06/18 at 23:00 LEON CORONA MD Sep 24, 2018 10:18
--- NOTE | 2018-09-24 11:53 | CONS ---
Consult Date/Type/Reason Admit Date/Time Aug 13, 2018 at 17:22 Initial Consult Date 09/01/18 Type of Consultation: Rheum Requesting Provider: SHAQUILLE HARRIS Date/Time of Note DATE: 09/24/18 TIME: 11:48 Subjective No new complaints. Still with intermittent hemoptysis but small amounts. ENT eval noted. Objective Vitals Vital Signs Date Temp Pulse Resp B/P (MAP) Pulse Ox O2 O2 Flow FiO2 Time Delivery Rate 09/24/18 99.1 100 19 101/57 98 08:22 (72) 09/23/18 Room Air 08:00 Intake and Output 09/23/18 09/23/18 09/24/18 1515:00 23:00 07:00 IntakeIntake Total 800 ml 550 ml BalanceBalance 800 ml 550 ml Exam GENERAL: No acute distress at present. SKIN: Without rashes. No sclerodactyly, telangiectasias or periungual erythema. HEENT: Without acute oral or ocular lesions noted. NECK: Without lymphadenopathy. CHEST: Clear to auscultation. HEART: Regular rate and rhythm. ABDOMEN: Soft without tenderness present. EXTREMITIES: With some pedal edema. MUSCULOSKELETAL: Joints without synovitis. Mild tenderness wrists. NEUROLOGIC: Grossly intact. Results/Medications Result Diagram: 09/23/18 1107 09/23/18 1107 Home Meds Reported Medications Zolpidem Tartrate* (Ambien*) 5 Mg Tablet, 5 MG PO QHS PRN for INSOMNIA, #30 TAB 08/13/18 Cholecalciferol* (Vitamin D3*) 1,000 Unit Tablet, 1000 UNIT PO DAILY, TAB 08/13/18 Cholecalciferol* (Vitamin D3*) 1,000 Unit Tablet, 2000 UNIT PO DAILY, TAB 08/13/18 Potassium Chloride* (Potassium Chloride*) 20 Meq Tablet.er, 20 MEQ PO DAILY, TAB.SA 08/13/18 Duloxetine Hcl* (Cymbalta*) 60 Mg Capsule.dr, 60 MG PO DAILY, CAP 08/13/18 Oxycodone Hcl* (Oxycontin*) 15 Mg Tab.sr.12h, 15 MG PO Q12, TAB 08/13/18 Hydromorphone Hcl* (Dilaudid*) 8 Mg Tablet, 8 MG PO Q6H PRN for PAIN, TAB 08/13/18 Pantoprazole* (Protonix*) 40 Mg Tablet.dr, 40 MG PO AC BREAKFAST, TAB 08/13/18 Levothyroxine Sodium* (Levothyroxine Sodium*) 25 Mcg Tablet, 25 MCG PO BEFORE BREAKFAST, #30 TAB 08/13/18 Medications Current Medications IV Flush (NS 3 ml) 3 ml PER PROTOCOL IV ; Start 08/13/18 at 20:00 Ondansetron HCl (Zofran Inj) 4 mg Q6H PRN IV NAUSEA AND/OR VOMITING Last admini stered on 09/13/18at 00:30; Admin Dose 4 MG; Start 08/13/18 at 20:00 Glucose (Glutose) 15 gm Q15M PRN PO DECREASED GLUCOSE; Start 08/17/18 at 10:30 Glucose (Glutose) 22.5 gm Q15M PRN PO DECREASED GLUCOSE; Start 08/17/18 at 10:30 Dextrose (D50w Syringe) 25 ml Q15M PRN IV DECREASED GLUCOSE; Start 08/17/18 at 10:30 Dextrose (D50w Syringe) 50 ml Q15M PRN IV DECREASED GLUCOSE; Start 08/17/18 at 10:30 Glucagon (Glucagen) 1 mg Q15M PRN IM DECREASED GLUCOSE; Start 08/17/18 at 10:30 Glucose (Glutose) 15 gm Q15M PRN BUCCAL DECREASED GLUCOSE; Start 08/17/18 at 10:30 Zolpidem Tartrate (Ambien) 10 mg QHS PRN PO INSOMNIA Last administered on 09/23/18at 21:47; Admin Dose 10 MG; Start 08/20/18 at 11:30 Phenol (Cepastat Lozenge) 1 lozenge Q1H PRN MT THROAT PAIN Last administered on 09/17/18at 10:37; Admin Dose 1 LOZENGE; Start 08/21/18 at 11:00 Acetaminophen (Tylenol Tab) 500 mg Q6H PRN PO MILD PAIN(1-3)OR ELEVATED TEMP Last administered on 09/19/18at 10:13; Admin Dose 500 MG; Start 09/01/18 at 18:30 Lidocaine (Xylocaine (Viscous)) 15 ml QID PRN PO Pain in the mouth; Start 09/02/18 at 10:30 Trazodone HCl (Desyrel) 50 mg BID PO Last administered on 09/24/18 09:16; Admin Dose 50 MG; Start 09/08/18 at 12:30 Lactobacillus Acidophilus/ Rhamnosus (Culturelle) 1 cap BID PO Last administered on 09/24/18 09:16; Admin Dose 1 CAP; Start 09/08/18 at 12:00 Promethazine HCl/ Codeine (Phenergan/ Codeine) 10 ml Q4H PRN PO COUGH Last administered on 09/24/18 11:19; Admin Dose 10 ML; Start 09/09/18 at 17:30 Cholecalciferol (Vitamin D) 2,000 unit DAILY PO Last administered on 09/24/18 09:16; Admin Dose 2,000 UNIT; Start 09/13/18 at 09:00 Diphenhydramine HCl (Benadryl) 50 mg Q4 PRN IV ITCHING Last administered on 09/24/18 08:08; Admin Dose 50 MG; Start 09/10/18 at 13:00 Levothyroxine Sodium (Synthroid) 50 mcg BEFORE BREAKFAST PO Last administered on 09/24/18 05:42; Admin Dose 50 MCG; Start 09/13/18 at 07:00 Lorazepam (Ativan) 2 mg Q6 PRN IV Anxiety Last administered on 09/24/18 09:23; Admin Dose 2 MG; Start 09/10/18 at 13:00 Methadone HCl (Methadone Liq) 1 mg TID PO Last administered on 09/24/18 09:16; Admin Dose 1 MG; Start 09/11/18 at 21:00 Pantoprazole (Protonix Tab) 40 mg DAILY@06 PO Last administered on 09/24/18 05:43; Admin Dose 40 MG; Start 09/13/18 at 06:00 Alteplase, Recombinant (Cathflo (Activase)) 2 mg MAY REPEAT X1 PRN CATHETER IF CATHETER REMAINS OCCULUDED Last administered on 09/23/18 11:55; Admin Dose 2 MG; Start 09/19/18 at 01:30 Zinc Sulfate (Zinc Sulfate) 220 mg DAILY PO Last administered on 09/24/18 09:16; Admin Dose 220 MG; Start 09/20/18 at 09:00 Levofloxacin/ Dextrose 150 ml @ 100 mls/hr Q24H IVPB Last administered on 2/28/19at 16:04; Admin Dose 100 MLS/HR; Start 09/22/18 at 15:00 Mupirocin (Bactroban) 1 applic TID TOP Last administered on 09/24/18at 09:18; Admin Dose 1 APPLIC; Start 09/22/18 at 21:00; Stop 10/06/18 at 23:00 Hydromorphone HCl (Dilaudid) 2 mg Q6H PRN PO SEVERE PAIN LEVEL 7-10; Start 09/24/18 at 10:30 Hydromorphone HCl (Dilaudid) 1 mg Q8H PRN IV SEVERE PAIN LEVEL 7-10; Start 09/24/18 at 10:30 Assessment/Plan Assessment/Plan (Daily) ASSESSMENT: 1. Hemoptysis. No clear evidence of pulmonary or GI etiology of the hemoptysis. Would expect significant changes on chest x-ray or CT scan and bron choscopy has been negative. In addition, evaluation for vasculitis such as ANCA panel has been negative and sedimentation rate has not been very elevated. We would strongly doubt pulmonary vasculitis as etiology. Consider upper respiratory, possible sinus or nasal type etiology even though ENT evaluation not very revealing' 2. Bacteremia/sepsis. 3. Pancolitis. 4. Recurrent deep venous thrombosis. 5. Possible recurrence of lymphoma. 6. Possible breast cancer. 7. No evidence of Lupus or Rheumatoid Arthritis and has negative ALLI and Rheum Factor. RECOMMENDATIONS: 1. Recommend reevaluation by ENT for possible source of bleeding as there is no clear evidence of pulmonary or GI etiology. 2. I agree with present management of the infection, et cetera and the patient will need additional evaluation for the possibility of breast cancer and the lymphoma. 3. Antiphospholipid panel pending. JAZZY VANESSA MD Sep 24, 2018 11:53
[2018-09-24 13:35] VITALS: BP 120/79; RESP 19
--- NOTE | 2018-09-24 13:53 | RADRPT ---
Vent Rate: 80 bpm RR Interval: 0 msec WA Interval: 186 msec QRS Duration: 84 msec QT Interval: 406 msec QTC Interval: 468 msec P-R-T Bouse: 28 - 4 - 13 degrees Normal sinus rhythm Nonspecific T wave abnormality Prolonged QT Abnormal ECG Electronically Signed By: Tom Ye
--- NOTE | 2018-09-24 13:57 | DS ---
Date/Time of Note Date/Time of Note DATE: 09/24/18 TIME: 13:40 Discharge Summary Admission/Discharge Info Admit Date/Time Aug 13, 2018 at 17:22 Discharge Date/Time Discharge Diagnosis 1. Acute pancolitis. Stool studies showing Giardia. S/P Flagyl (last day 07/28). Colonoscopy on 08/17/2018 showed patchy colitis. 2. Fevers with coagulase-negative Staphylococcus bacteremia on 09/01/2018. - Stenotrophomonas maltophilia bacteremia on 09/03/2018. 3. 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 No evidence or documented history of Hodgkin's lymphoma as per oncology. 4. History of PE. Status post IVC filter placement. 5. Anemia. Microcytic and hypochromic. 6. Chronic pain syndrome. 7. Hemoptysis on 08/18/2018. 8. Ulcer of the frenulum linguae. Patient Condition: Stable Consults Dr Brett Kamara Procedures XR Abdomen CLINICAL INDICATION: Pain . The bowel gas pattern is normal. There is no evidence of obstruction. There are no suspicious abnormal soft tissue calcifications. The osseous structures are unremarkable. IVC filter is noted. IMPRESSION: Nonobstructive bowel gas pattern. VQ - Low/ negative HRCT Chest IMPRESSION: No significant interval change. Numerous small bilateral peripheral pulmonary nodules and scattered ground- glass opacities are not significantly changed. Mild interstitial thickening and peribronchial ground-glass opacities in the right lower lobe may suggestive of scarring, also unchanged. Venous R Lower Ext IMPRESSION: DVT involving the right proximal mid femoral veins. Partial DVT of the right distal femoral vein. BREAST ULTRASOUND CLINICAL INDICATION: Left nipple discharge. No description of the nipple discharge is provided by the process safety engineering technologist. TECHNIQUE: Ultrasound of the 4 quadrants and left breast is provided. No imaging of the left retroareolar tissues is provided by the process safety engineering technologist. COMPARISON: None. FINDINGS: The ultrasound of the left breast is unremarkable. No cystic or solid mass is identified. There is no suspicious left axillary lymphadenopathy. IMPRESSION: No images of the left retroareolar tissues are provided by the process safety engineering technologist. Otherwise, the left breast ultrasound is unremarkable. Recommend further evaluation with a diagnostic mammogram as well as targeted ultrasound of the left subareolar tissues. BIRADS 0 (INCOMPLETE- -NEED ADDITIONAL IMAGING EVALUATION) Patient will be entered into reminder system for immediate follow-up imaging 2D echo Conclusions: Normal left ventricular systolic function. Normal left ventricular cavity size. Normal left ventricular wall thickness. Ejection fraction is visually estimated at 55-60 %. Tissue Doppler/Mitral Doppler indices are consistent with impaired relaxation (Stage I diastolic dysfunction). Normal appearance of the mitral valve. Trace mitral regurgiutation. Normal appearance of the tricuspid valve. There is trace to mild tricuspid regurgitation. 2D ECHO w bubble Conclusions: Normal left ventricular cavity size, wall thickness and systolic function. Normal left ventricular cavity size. Lower limits of normal left ventricular systolic function. Normal left ventricular wall thickness. The left ventricular ejection fraction is visually estimated at 50-55 %. Normal appearance of the mitral valve leaflets. Trivial mitral regurgitation. Normal appearance of the tricuspid valve. There is trivial tricuspid regurgitation. Normal atrial septum. Agitated saline was injected intravenously for microbubble contrast study. No right to left shunt was identified with and with out valsalva maneuver. Electronically Signed By: Operation/Procedure Performed Bronchoscopy Postoperative Diagnosis Normal bronchoscopy Procedure Description Patient was brought into the OR. Informed consent was obtained earlier. Patient was given general anesthesia by anesthesiologist. Prior to intubation bronchoscope was traversed through endotracheal tube for upper airway evaluation. Pharynx was completely normal vocal cords motor. Normal proximal trachea was completely normal. After intubation distal trachea was evaluated which was also completely normal reggie was sharp and well defined. The scope was introduced into the right mainstem bronchus with evaluation of the right upper lobe, bronchus intermedius, superior segment of the lower lobe, middle, and lower lobes were completely normal without any evidence of any endobronchial obstruction or any active bleeding. The scope was then introduced into the left mainstem bronchus with evaluation of the left upper lobe, lingula, superior segment of the lower lobe as well as the role of the ulcer were completely normal without any evidence of active bleeding or any signs of prior hemorrhage. The scope was then withdrawn. The procedure was well tolerated with stable O2 saturation, vital signs and airway pressures. Start time was 11:25 AM. Finish time was 11:30 AM. ISABELLA EPSTEIN Colonoscopy A-Transverse colon biopsy B-Rectum biopsy CLINICAL: Persistent bloody diarrhea; colitis (A); rule out inflammatory bowel disease (A) GROSS EXAMINATION: A-Received in formalin is a fragment of shields-pink, soft tissue that measures 0.3 x 0.2 x 0.1 cm. Totally submitted in cassette A. B-Received in formalin is a fragment of shields-pink, soft tissue that measures 0.3 x 0.2 x 0.1 cm. Totally submitted in cassette B. MICROSCOPIC DIAGNOSIS: A-Transverse colon biopsy: -- Colon mucosa showing focal mucin depletion and atrophy of colon crypts with increased regenerative activity, suggesting a healing erosion site. -- There is no evidence of acute colitis, active chronic colitis or malignancy. B-Rectum biopsy: -- Normal colon mucosa with focal acute hemorrhage in the superficial lamina propria, histologically non-specific. -- There is no evidence of colitis or malignancy. GRISEL/MARLEN/melinda/mt Date of Service: 08/17/18; Date Received: 08/17/18 Dictated: 08/19/18; Transcribed: 08/19/18; Sent by Fax: 08/19/18; Reviewed: MAHSA Prakash M.D. Pathologist Electronically Signed 08/19/2018 CT abdomen pelvis IMPRESSION: Colitis, involving the ascending, transverse, descending colon. Status post choecystectomy. IVC filter in place with extracaval penetration of the filter tines. Numerous nodules in both lungs measuring up to 4 mm in the right lower lobe and lingula. In a patient at high risk for cancer, a 12-month follow-up chest CT could be obtained for further evaluation. CT guided bone marrow aspiration and left iliac bone biopsy. IMPRESSION: 1. Successful CT guided bone marrow aspiration and biopsy. MICROSCOPIC DIAGNOSIS: Peripheral blood: -- Moderate anemia, mildly microcytic. -- Leukopenia, mild, with occasional hyposegmented neutrophils. -- No circulating blasts identified. Left posterior iliac crest bone marrow aspiration, clot and biopsy: -- Adequately cellular bone marrow with a slight increase of erythroid precursors. -- Markedly increased marrow iron with a rare ringed sideroblast. -- No granulomas are identified. -- There is no evidence of malignancy. COMMENT: There is no evidence of Hodgkin lymphoma involving the bone marrow. The findings of rare ringed sideroblasts is non-specific and there is no unequivocal evidence of a myelodysplastic syndrome at the time. The findings are most suggestive of anemia of chronic disease, considering the markedly increased marrow hemosiderin. Clinical correlation is recommended. Cytogenetics and MDS FISH is pending at [facility]. S eparate reports of those results will follow. GRISEL/MARLEN/melinda Date of Service: 08/19/18; Date Received: 08/19/18 Dictated: 08/24/18; Transcribed: 08/24/18; Sent by Fax: 08/24/18; Reviewed: MAHSA SPECIMEN: Bone marrow LPIC aspiration and biopsy CLINICAL: Pancytopenia MDS FISH EXTENDED FISH PANEL & CYTOGENETICS: Please see the attached report of MDS extended FISH analysis (case no. [id number]; 08/27/2018) and Cytogenetics Oncology Chromosomal Analysis (case no. [id number]; 08/26/2018) both performed at [facility]. Results are listed below: MDS EXTENDED FISH PANEL: No abnormalities detected. CYTOGENETICS: Normal female karyotype 46,XX[20]. Please see the scanned reports for further details of analysis and interpretation. MP/MARLEN/melinda Date of Service: 08/19/18; Date Received: 08/19/18 Dictated: 08/24/18; Transcribed: 08/24/18; Sent by Fax: 08/24/18; Reviewed: WS Supplemental Dictated/Sign-Out Date: 08/30/18; Transcribed: 08/30/18; Sent by Fax: 08/30/18 CT angiogram chest #2 There is no pulmonary embolism. The main pulmonary artery is normal in caliber. There is no aortic aneurysm. The heart is not enlarged. There is no pericardial effusion. A left upper extremity PICC terminates in the SVC. Numerous bilateral subpleural micronodules are not significantly changed. Minimal atelectatic changes are noted. There is no pulmonary edema or consolidation. No pleural effusion or pneumothorax is identified. No suspicious thyroid lesion is seen. There is no thoracic lymphadenopathy. The trachea and mainstem bronchi are patent. The patient is status post cholecystectomy. An IVC filter is partially imaged. There is no suspicious osseous lesion. IMPRESSION: No pulmonary embolism. Numerous bilateral subpleural micronodules, not significantly changed. No pulmonary edema or consolidation. CT Chest #2 IMPRESSION: 1. No acute pulmonary change. 2. Stable bilateral micronodules dating back to examination of at least 01/29/2017. 3. Right lower lobe fibrosis. 4. Status post cholecystectomy. 5. Left upper extremity PICC line and IVC filter in place. Please note that in the absence of intravenous contrast, the study does not evaluate the patency of the vasculature. Pending: #2 ECHO - for endocarditis WBC SCAN Hx of Present Illness 52-year-old female admitted with diarrhea and abdominal pain. Hospital Course Hospital Course: Initially evaluated for abdominal pain and diarrhea. C. difficile negative. Next is an issue was hemoptysis vs hematemesis. Patient was seen by GI and pulmonary. Bronchoscopy and EGD/ colonoscopy was negative for any acute process. Patient was seen by ENT and mild epistaxis was seen but could not account for the bleed. Laryngoscopy done. She was evaluated by the hematology Patient does not have any coagulopathy. CT chest, CT angiogram chest were both unremarkable. Patient was transfused at least 6 units of blood while admitted. Patient underwent repeat EGD and no active bleed seen. Bubble study negative. Plan is to transfer to tertiary care for evaluated hemoptysis of unknown etiology. The patient was reluctant yesterday and asked for a hospice consult for some reason, but however today agrees for tertiary care eval. In terms of the bacteremia. Patient will continue daptomycin until the . Levaquin till . Please see ID note for additional details. Additionally seen by behavioral health & pain management. Patient has pain seeking behavior. Manipulates staff to get Dilaudid prior to doing investigational studies or agreeing to medical care plan. I attempted to contact family and give them an update but there is nobody available at bedside or over the phone. I am unable to confirm patient's story of possible thyroid cancer. Or lymphoma. There is an old document stating the patient once told the physician that she has uterine cancer. Patient was following with with [facility] clinic and her paps were unremarkable. Patient's recent oncologist? was in [place] but now that her insurance has changed, she will need a new specialist. Addendum 09/24/18 - In the meantime over the last 10 days, patient still has intermittent hemoptysis. Has been seen by ENT-no acute etiology for hemoptysis seen. I curbsided cardiothoracic surgery here at may recommend repeat bronchoscopy until hemoptysis etiology has been diagnosed. Also diagnosed her with a right lower extremity DVT. Patient has an IVC filter. Imaging shows filter in place. There are some shadows in her biliary tract probably from previous surgery. Patient still not adherent to management/investigative studies, medical management, ambulatory instructions. In the meantime patient is still being treated for gram-negative sepsis of unknown etiology. Patient has poor peripheral IV access. Unable to remove the PICC. A repeat 2D echo for vegetation and wbc scan is pending later today. Please see ID note for complete details. A/P 1. Hemoptysis vs Hematemesis? bronch/ egd (twice) & laryngoscopy (09/01 & 09/22)= [facility]. Past egd/bronch in [place] [facility]. No path lesions/ scars. No bleeding diathesis. Refused tertiary eval in the past, but presently accepting transfer to [facility]. - Vasculitis, avm? CTA, echo with bubble study, HRCT, VQ all negative. esr/sylvia/ pft's/ sputum pH -P May need repeat bronchoscopy. 2. H/o HL ? chemo/ xrt; repeat chemo [facility]. Saw an Onco in [place] last year. Sp BmBx-appears negative. 3. Ho PE/ Dvt, ivc filter in place. states done at [facility] for bilat upper ext DVT 4. Diarrhea/ giardia; Rxed; however occ diarrhea noted. sp colonoscopy 08/17: patchy colitis 5. Past h/o c diff 6. H/o thyroid nodule/ ca- ? sp doug in [place]? vs [facility] 5. UTI 6. H/o H pylori; EGD- 'ulcers' within the last year. Current EGD -ve. 7. Cons bacteremia 09/01. Stenotrophomonas maltophilia bacteremia. 09/03: 2D -ve for veg. Source colon? Recent colon didnt show any mass/ cancer. Immunosuppressed? 8. Anemia; beta thalassemia trait; sp bone marrow 08/20 negative; spep ordered; but done/ -ve in the past too. 9. Chr pain syndrome. Pain seeking behavior. will try to manipulate staff for narcotics prior to medical care. 10. Prediabetes? 11. Ulcer of the frenulum linguae. 12. Ftt, stable discharge to snf at some point. Presently going to [facility] ([facility] vs..) 13. Pulmonary nodules, stable, present back in ; observe. Repeat imaging in 3 months. QGold -ve. Appreciate ID assistance 14. Fibromyalgia 15. Repeat sepsis/bacteremia gram-negative bacilli. Source? Tried to remove picc. Cont broad-spectrum antibiotics. rpt -pending. White cell scan ordered. 16. Rt lwr ext DVT, not a candidate for anticoagulation. Stable, cont IVCf status. 17. Nonadherence. Tries to manipulate staff for narcotics prior to therapy or investigative studies. S: 08/23 feels ok; still bleeding. no dyspnea/ fever 08/24: Events noted still having hemoptysis. No hematuria 08/25: Hemoptysis again this morning? Patient denies any hematemesis or epistaxis 08/26: Recurrent hemoptysis this morning. No dyspnea fever 08/27: Still having hemoptysis? No hematochezia melena hematuria or epistaxis. No dyspnea fever. 08/28: Events noted. She is worried about her hemoptysis. 08/29: Still bringing out a lot of blood. Hemoptysis versus hematemesis. Chronic stable we will consult GI. 09/06: Intermittent hemoptysis. Now having diarrhea without any GI bleed. No fevers. 09/07: Intermittent hemoptysis. Denies any fever vomiting GI bleed. No dyspnea. Does not have a regular oncologist and no outpatient support. Will need snf 09/08: 4 bouts diarrhea. no n/f. 'pain' in legs, abd. no known agg/rel factors. toradol- headache? no h/o rash/ dyspnea 09/09: Hemoptysis noted again. 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 crying, but refusing working/ cxr. Denies any chest pain postnasal drip. No GI bleed. States of having lower abd/ suprapubic tenderness but no dysuria hematuria. Back pain upper/ around her shoulder blades. 09/10: coughing/ vomiting blood. 'pain', lwr abd/ back. now placed in front of nursing station 09/11: hemoptysis noted. Refuses therapy/ studies without dilaudid. Threatened to pull out picc. For tertiary eval. 09/12: no events 09/20: Fever blood cx noted. Hemoptysis for for blood transfusion. 09/21: Intermittent hemoptysis. Transfused overnight. No dyspnea or cough. Min ambulation. refused to have picc removed last night. still has pain seeking behavior. 09/22: No active bleed on ENT eval. poor IV access, May not be able to remove the PICC. 09/23: Refused antibiotics. Refused x-ray imaging. Now agreeable to VQ scan. Intermittent hemoptysis noted. 09/24: Recurrent intermittent hemoptysis/hematemesis. Nonadherence continues. O vss PE No pallor. Throat clear, adentous Reg s1s2 no mrg Clear Benign, nt; nd; no RRG No edema. lt picc c/d/i Disposition: To tertiary care if acceptable. Home Meds Reported Medications Zolpidem Tartrate* (Ambien*) 5 Mg Tablet, 5 MG PO QHS PRN for INSOMNIA, #30 TAB 08/13/18 Cholecalciferol* (Vitamin D3*) 1,000 Unit Tablet, 1000 UNIT PO DAILY, TAB 08/13/18 Cholecalciferol* (Vitamin D3*) 1,000 Unit Tablet, 2000 UNIT PO DAILY, TAB 08/13/18 Potassium Chloride* (Potassium Chloride*) 20 Meq Tablet.er, 20 MEQ PO DAILY, TAB.SA 08/13/18 Duloxetine Hcl* (Cymbalta*) 60 Mg Capsule.dr, 60 MG PO DAILY, CAP 08/13/18 Oxycodone Hcl* (Oxycontin*) 15 Mg Tab.sr.12h, 15 MG PO Q12, TAB 08/13/18 Hydromorphone Hcl* (Dilaudid*) 8 Mg Tablet, 8 MG PO Q6H PRN for PAIN, TAB 08/13/18 Pantoprazole* (Protonix*) 40 Mg Tablet.dr, 40 MG PO AC BREAKFAST, TAB 08/13/18 Levothyroxine Sodium* (Levothyroxine Sodium*) 25 Mcg Tablet, 25 MCG PO BEFORE BREAKFAST, #30 TAB 08/13/18 Follow-up Plan The patient being transfused to tertiary care facility. Primary Care Provider The patient being transferred to tertiary care facility. Time spent on discharge: > 30 minutes LEON CORONA MD Sep 24, 2018 13:55
--- NOTE | 2018-09-24 14:03 | PDOCDIS ---
Discharge Instructions DIAGNOSIS Discharge Diagnosis Hemoptysis 1. Acute pancolitis. Stool studies showing Giardia. S/P Flagyl (last day 08/21/2018). Colonoscopy on 08/17/2018 showed patchy colitis. 2. Fevers with coagulase-negative Staphylococcus bacteremia on 09/01/2018. - Stenotrophomonas maltophilia bacteremia on 09/03/2018. 3. 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 No evidence or documented history of Hodgkin's lymphoma as per oncology. 4. History of PE. Status post IVC filter placement. 5. Anemia. Microcytic and hypochromic. 6. Chronic pain syndrome. 7. Hemoptysis on 08/18/2018. 8. Ulcer of the frenulum linguae. CONDITION [id number] Patient Condition: [id number] Stable HOME CARE INSTRUCTIONS: [id number] Special Diet: [id number] regular ACTIVITY: [id number] Activity Restrictions: [id number] Slowly Increase Activity Do not Drive FOLLOW UP/APPOINTMENTS Follow-up Plan The patient being transfused to tertiary care facility. LEON CORONA MD Sep 24, 2018 14:03
[2018-09-24 14:20] VITALS: PULSE 109
[2018-09-24] MEDS: LEVOFLOXACIN 750MG/D5W (PMX) 150 ML IVPB SCH (15:20)
[2018-09-24 19:58] VITALS: BP 95/51; PULSE 87; RESP 18
[2018-09-24] MEDS: ZOLPIDEM 5 MG TAB PO PRN (20:54)
--- NOTE | 2018-09-24 21:27 | CONS ---
Assessment/Plan Assessment/Plan Hospital Course (Demo Recall) sepsis, endovascular infection - recurrent sepsis 09/19/2018 due to bacteremia - recurrent bacteremia due to stenotrophomonas - s/p bacteremia d/t Coag Neg Staph and Stenotrophomonas maltophilia on 09/01/2018 and 09/02/2018; took daptomycin and levofloxacin - h/o "bacteremia due to enterococci" according to progress notes at [facility], but the actual microbiology report indicated blood culture was positive for ESBL+E. coli - h/o fungemia due to kaley glabrata, sensitive to fluconazole and to micafungin/caspofungin at [facility] - transthoracic echo on 09/04/2018 and 09/23/2018 had no mention on valvular vegetation pulm - persistent hemoptysis of unknown etiology: Pt reports negative PPD at [facility] - according to the microbiology report at [facility], Pt had ESBL+E. coli in her respiratory culture. Sputum cultures for AFB and fungi were negative at 8 weeks and at 4 weeks respectively at [facility] - Pt had negative bronchoscopy in 05/2018 at [facility], another at [facility] in 2017, and on 08/25/2018 at [facility] (no e/o bronchial airway bleeding according to Dr. Bello) - Numerous tiny lung nodules, increased in number from the chest CT dated May 22, 2018, with largest measuring 0.3 cm in the left apex, CT on 09/10/2018 indicated: stable bilateral micronodules dating back to examination of at least 01/29/2017; RLL fibrosis, CT on 09/22/2018 noted numerous small bilateral peripheral pulmonary nodules and scattered ground-glass opacities - Kaley albicans in sputum culture on 08/28/2018 and 09/21/2018, a colonizer - so far: aspergillus antibody not detected, HIV negative, coccidioidomycosis serology negative, TB Quant Gold negative, 1,3 beta d glucan negative, procalc 09/01/18 was 0.30; Sputum for O&P was negative, lung scan on 09/23/2018 had low prob of PE, GI - Delgado-colitis per CT 08/13/18 - S/p diarrhea on 09/06/18 - s/p EGD on 09/10/2018: no GI bleeding noted, reportedly completely normal - S/p sigmoidoscopy with biopsy 08/17/2018; path showed no e/o colitis or malignancy from transverse colon and rectum biopsies - S/p bloody diarrhea d/t Giardia; Pt took metronidazole for Giardia (08/14/2018- 08/21/2018) in 07/2018. - H/o C diff toxin negative PCR positive status at [facility]. Took a course of Fidaxomyxin x 10 days. C. 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 Iron deficiency must be ruled out. - H/o BUE and RLE DVT, s/p IVC filter in January 2018 - H/o Hodgkin lymphoma diagnosed in 2006 - H/o thyroid CA diagnosed in 2005, s/p resection, chemo and XRT - IVC filter placement - Patient reports that approximately 2 years ago (2016?) she had an abnormal mammogram of Left breast and that she was scheduled for a biopsy approximately 4 months ago but d/t insurance change did not receive the biopsy, on 09/13/18 patient reported brown drainage from left nipple x2 nights - +Family hx of cancer (father of stomach CA, mother of lymphoma, paternal uncle had breast CA and 12 yo daughter has h/o brain tumor s/p surgery and resulting blindness) , renal - recurrent UTI - h/o UTI due to ESBL+E. coli - S/p PO levofloxacin (08/24/2018-08/28/2018) for probable UTI other conditions - s/p a painful ulcer at frenulum, resolving. According to Pt, topical steroid would worsen the pain. HIV negative, RPR non reactive, herpes 1 and 2 by PCR not detected; s/p trial of PO valacyclovir (08/27/2018-09/01/2018) - s/p bilateral conjunctivitis - improved s/p Cipro eye drops (08/18/18-08/23/18) - myalgia with hemoptysis, CK level stable (<20 on 09/03/2018, 39 on 09/10/2018, and <20 on 09/17/2018) - Hypothyroidism - HLD - S/p hypokalemia - OA - depression/anxiety - H/o x2 - Allergy to PCN and vancomycin (reaction unknown) Previously Pt took: daptomycin (09/02/2018-09/17/2018, 09/19/2018-), cefepime (09/03/18 - 09/05/18), meropenem (09/19/2018-09/21/2018) Recommendations: - ordered: WBC tagged scan to localize a focus of bacteremia (infection) and bleeding (inflammation) - today Pt said she does not want to take WBC tagged scan and does not want to take an antibiotic. I explained the indications for these to her in detail but she declined again - I recommend continuing levofloxacin (08/25/18-08/27/2018, 09/05/2018-09/18/2018, restart 09/22/2018-) as she was septic due to bacteremia - I recommend removal of PICC as she continues to have chills. management was d/w patient Consultation Date/Type/Reason Admit Date/Time Aug 13, 2018 at 17:22 Initial Consult Date 08/19/18 Type of Consult ID Requesting Provider: SHAQUILLE HARRIS Date/Time of Note DATE: 09/24/18 TIME: 21:24 24 HR Interval Summary Constitutional: poor po Detailed Summary Eyes: no complaints ENT: no complaints Respiratory: cough, other (hemoptysis) Cardiovascular: no complaints Gastrointestinal: no complaints Genitourinary: no complaints Musculoskeletal: other (myalgia) Skin: No rash Exam/Review of Systems Exam Vitals Vital Signs Date Temp Pulse Resp B/P (MAP) Pulse Ox O2 O2 Flow FiO2 Time Delivery Rate 09/24/18 98.2 87 18 95/51 (66) 92 19:58 09/23/18 Room Air 08:00 Intake and Output 09/23/18 09/23/18 09/24/18 1515:00 23:00 07:00 IntakeIntake Total 800 ml 550 ml BalanceBalance 800 ml 550 ml Constitutional: frail Psych: no complaints Head: normocephalic, atraumatic Eyes: nl conjunctiva, nl lids, nl sclera ENMT: nl external ears & nose, nl nasal mucosa & septum Neck: supple, non-tender Respiratory: clear to auscultation, normal air movement Cardiovascular: regular rate and rhythm, nl pulses Gastrointestinal: soft, non-tender; No tender Musculoskeletal: nl extremities to inspection Extremities: normal pulses Neurological: DISC PAD [employer] II-XII intact, nl speech, nl strength Skin: nl turgor; No rash or lesions Results Result Diagram: 09/23/18 1107 09/23/18 1107 Medications Medication Current Medications IV Flush (NS 3 ml) 3 ml PER PROTOCOL IV ; Start 08/13/18 at 20:00 Ondansetron HCl (Zofran Inj) 4 mg Q6H PRN IV NAUSEA AND/OR VOMITING Last administered on 09/13/18at 00:30; Admin Dose 4 MG; Start 08/13/18 at 20:00 Glucose (Glutose) 15 gm Q15M PRN PO DECREASED GLUCOSE; Start 08/17/18 at 10:30 Glucose (Glutose) 22.5 gm Q15M PRN PO DECREASED GLUCOSE; Start 08/17/18 at 10:30 Dextrose (D50w Syringe) 25 ml Q15M PRN IV DECREASED GLUCOSE; Start 08/17/18 at 10:30 Dextrose (D50w Syringe) 50 ml Q15M PRN IV DECREASED GLUCOSE; Start 08/17/18 at 10:30 Glucagon (Glucagen) 1 mg Q15M PRN IM DECREASED GLUCOSE; Start 08/17/18 at 10:30 Glucose (Glutose) 15 gm Q15M PRN BUCCAL DECREASED GLUCOSE; Start 08/17/18 at 10:30 Zolpidem Tartrate (Ambien) 10 mg QHS PRN PO INSOMNIA Last administered on 09/24/18at 20:54; Admin Dose 10 MG; Start 08/20/18 at 11:30 Phenol (Cepastat Lozenge) 1 lozenge Q1H PRN MT THROAT PAIN Last administered on 09/17/18at 10:37; Admin Dose 1 LOZENGE; Start 08/21/18 at 11:00 Acetaminophen (Tylenol Tab) 500 mg Q6H PRN PO MILD PAIN(1-3)OR ELEVATED TEMP Last administered on 09/19/18at 10:13; Admin Dose 500 MG; Start 09/01/18 at 18:30 Lidocaine (Xylocaine (Viscous)) 15 ml QID PRN PO Pain in the mouth; Start 09/02/18 at 10:30 Trazodone HCl (Desyrel) 50 mg BID PO Last administered on 09/24/18 20:54; Admin Dose 50 MG; Start 09/08/18 at 12:30 Lactobacillus Acidophilus/ Rhamnosus (Culturelle) 1 cap BID PO Last administered on 09/24/18 09:16; Admin Dose 1 CAP; Start 09/08/18 at 12:00 Promethazine HCl/ Codeine (Phenergan/ Codeine) 10 ml Q4H PRN PO COUGH Last administered on 09/24/18 16:14; Admin Dose 10 ML; Start 09/09/18 at 17:30 Cholecalciferol (Vitamin D) 2,000 unit DAILY PO Last administered on 09/24/18 09:16; Admin Dose 2,000 UNIT; Start 09/13/18 at 09:00 Diphenhydramine HCl (Benadryl) 50 mg Q4 PRN IV ITCHING Last administered on 09/24/18 14:03; Admin Dose 50 MG; Start 09/10/18 at 13:00 Levothyroxine Sodium (Synthroid) 50 mcg BEFORE BREAKFAST PO Last administered on 09/24/18 05:42; Admin Dose 50 MCG; Start 09/13/18 at 07:00 Lorazepam (Ativan) 2 mg Q6 PRN IV Anxiety Last administered on 09/24/18 15:17; Admin Dose 2 MG; Start 09/10/18 at 13:00 Methadone HCl (Methadone Liq) 1 mg TID PO Last administered on 09/24/18 20:54; Admin Dose 1 MG; Start 09/11/18 at 21:00 Pantoprazole (Protonix Tab) 40 mg DAILY@06 PO Last administered on 09/24/18 05:43; Admin Dose 40 MG; Start 09/13/18 at 06:00 Alteplase, Recombinant (Cathflo (Activase)) 2 mg MAY REPEAT X1 PRN CATHETER IF CATHETER REMAINS OCCULUDED Last administered on 09/23/18 11:55; Admin Dose 2 MG; Start 09/19/18 at 01:30 Zinc Sulfate (Zinc Sulfate) 220 mg DAILY PO Last administered on 09/24/18 09:16; Admin Dose 220 MG; Start 09/20/18 at 09:00 Levofloxacin/ Dextrose 150 ml @ 100 mls/hr Q24H IVPB Last administered on 09/24/18at 15:20; Admin Dose 100 MLS/HR; Start 09/22/18 at 15:00 Mupirocin (Bactroban) 1 applic TID TOP Last administered on 09/24/18at 20:55; Admin Dose 1 APPLIC; Start 09/22/18 at 21:00; Stop 10/06/18 at 23:00 Hydromorphone HCl (Dilaudid) 2 mg Q6H PRN PO SEVERE PAIN LEVEL 7-10 Last administered on 09/24/18at 17:23; Admin Dose 2 MG; Start 09/24/18 at 10:30 Hydromorphone HCl (Dilaudid) 1 mg Q8H PRN IV SEVERE PAIN LEVEL 7-10 Last administered on 09/24/18at 14:07; Admin Dose 1 MG; Start 09/24/18 at 10:30 REGINA CARRASCO M.D. Sep 24, 2018 21:27
[2018-09-25] VITALS (7 sets, daily range): BP systolic 106–145; BP diastolic 51–74; PULSE 80–104; RESP 16–20
[2018-09-25] MEDS: LORAZEPAM 2 MG INJ IV PRN ×4 (01:01→23:19)
[2018-09-25] MEDS: HYDROmorphONE 2 MG TAB PO PRN ×3 (01:03→16:57)
[2018-09-25] MEDS: PANTOPRAZOLE (EC) 40 MG TAB PO SCH (06:09)
[2018-09-25] MEDS: HYDROmorphONE 1 MG/ML SYG IV PRN ×3 (06:09→22:14)
[2018-09-25] MEDS: DIPHENHYDRAMINE 50 MG INJ IV PRN ×4 (06:09→22:14)
[2018-09-25] MEDS: LEVOTHYROXINE 50 MCG TAB PO SCH (06:09)
[2018-09-25] MEDS: CHOLECALCIFEROL 2,000 UNIT CAP PO SCH (08:52)
[2018-09-25] MEDS: LACTOBACILLUS RHAMNOSUS CAP PO SCH ×2 (08:52→20:07)
[2018-09-25] MEDS: traZODone 50 MG TAB PO SCH ×2 (08:52→20:07)
[2018-09-25] MEDS: ZINC SULFATE 220 MG CAP PO SCH (08:52)
[2018-09-25] MEDS: METHADONE (1 MG/ML 5 ML PO UD SYG) PO SCH ×3 (08:53→20:07)
[2018-09-25] MEDS: PROMETHAZINE/CODEINE 5ML CUP PO PRN ×4 (09:03→23:20)
[2018-09-25] MEDS: MUPIROCIN 2% 22 GM OINT TOP SCH ×3 (10:56→20:07)
--- NOTE | 2018-09-25 13:53 | CONS ---
Consult Date/Type/Reason Admit Date/Time Aug 13, 2018 at 17:22 Initial Consult Date 09/01/18 Type of Consultation: Pulm Requesting Provider: SHAQUILLE HARRIS Date/Time of Note DATE: 09/25/18 TIME: 13:[address]'s reviewed in detail. Still having hemoptysis. Objective Vitals Vital Signs Date Temp Pulse Resp B/P (MAP) Pulse Ox O2 O2 Flow FiO2 Time Delivery Rate 09/25/18 98.8 81 16 118/55 98 Room Air 07:42 (76) Intake and Output 09/24/18 09/24/18 09/25/18 1414:59 22:59 06:59 IntakeIntake Total 360 ml 630 ml 860 ml OutputOutput Total 110 ml 1200 ml BalanceBalance 360 ml 520 ml -340 ml Exam HEENT: Neck supple; no JVD; no LAD CVS: RRR, S1 and S2 CHEST: Clear ABD: Soft, NT, + BS EXT: No c/c/e Results/Medications Result Diagram: 09/25/18 0645 09/25/18 0645 Results 24 hrs Laboratory Tests Test 09/25/18 06:45 White Blood Count 4.5 L Red Blood Count 3.86 L Hemoglobin 9.8 L Hematocrit 31.0 L Mean Corpuscular Volume 80.3 L Mean Corpuscular Hemoglobin 25.4 L Mean Corpuscular Hemoglobin Concent 31.6 L Red Cell Distribution Width 18.7 H Platelet Count 240 Mean Platelet Volume 10.5 H Immature Granulocytes % 1.100 H Neutrophils % 43.9 Lymphocytes % 38.8 Monocytes % 11.3 H Eosinophils % 3.8 Basophils % 1.1 Nucleated Red Blood Cells % 0.0 Immature Granulocytes # 0.050 H Neutrophils # 2.0 Lymphocytes # 1.8 Monocytes # 0.5 Eosinophils # 0.2 Basophils # 0.1 Nucleated Red Blood Cells # 0.0 Sodium Level 142 Potassium Level 3.8 Chloride Level 103 Carbon Dioxide Level 26 Anion Gap 13 Blood Urea Nitrogen 17 Creatinine 0.50 Est Glomerular Filtrat Rate mL/min > 60 Glucose Level 116 # Calcium Level 9.4 Home Meds Reported Medications Zolpidem Tartrate* (Ambien*) 5 Mg Tablet, 5 MG PO QHS PRN for INSOMNIA, #30 TAB 08/13/18 Cholecalciferol* (Vitamin D3*) 1,000 Unit Tablet, 1000 UNIT PO DAILY, TAB 08/13/18 Cholecalciferol* (Vitamin D3*) 1,000 Unit Tablet, 2000 UNIT PO DAILY, TAB 08/13/18 Potassium Chloride* (Potassium Chloride*) 20 Meq Tablet.er, 20 MEQ PO DAILY, TAB.SA 08/13/18 Duloxetine Hcl* (Cymbalta*) 60 Mg Capsule.dr, 60 MG PO DAILY, CAP 08/13/18 Oxycodone Hcl* (Oxycontin*) 15 Mg Tab.sr.12h, 15 MG PO Q12, TAB 08/13/18 Hydromorphone Hcl* (Dilaudid*) 8 Mg Tablet, 8 MG PO Q6H PRN for PAIN, TAB 08/13/18 Pantoprazole* (Protonix*) 40 Mg Tablet.dr, 40 MG PO AC BREAKFAST, TAB 08/13/18 Levothyroxine Sodium* (Levothyroxine Sodium*) 25 Mcg Tablet, 25 MCG PO BEFORE BREAKFAST, #30 TAB 08/13/18 Medications Current Medications IV Flush (NS 3 ml) 3 ml PER PROTOCOL IV ; Start 08/13/18 at 20:00 Ondansetron HCl (Zofran Inj) 4 mg Q6H PRN IV NAUSEA AND/OR VOMITING Last administered on 09/13/18at 00:30; Admin Dose 4 MG; Start 08/13/18 at 20:00 Glucose (Glutose) 15 gm Q15M PRN PO DECREASED GLUCOSE; Start 08/17/18 at 10:30 Glucose (Glutose) 22.5 gm Q15M PRN PO DECREASED GLUCOSE; Start 08/17/18 at 10:30 Dextrose (D50w Syringe) 25 ml Q15M PRN IV DECREASED GLUCOSE; Start 08/17/18 at 10:30 Dextrose (D50w Syringe) 50 ml Q15M PRN IV DECREASED GLUCOSE; Start 08/17/18 at 10:30 Glucagon (Glucagen) 1 mg Q15M PRN IM DECREASED GLUCOSE; Start 08/17/18 at 10:30 Glucose (Glutose) 15 gm Q15M PRN BUCCAL DECREASED GLUCOSE; Start 08/17/18 at 10:30 Zolpidem Tartrate (Ambien) 10 mg QHS PRN PO INSOMNIA Last administered on 09/24/18at 20:54; Admin Dose 10 MG; Start 08/20/18 at 11:30 Phenol (Cepastat Lozenge) 1 lozenge Q1H PRN MT THROAT PAIN Last administered on 09/17/18 10:37; Admin Dose 1 LOZENGE; Start 08/21/18 at 11:00 Acetaminophen (Tylenol Tab) 500 mg Q6H PRN PO MILD PAIN(1-3)OR ELEVATED TEMP Last administered on 09/19/18 10:13; Admin Dose 500 MG; Start 09/01/18 at 18:30 Lidocaine (Xylocaine (Viscous)) 15 ml QID PRN PO Pain in the mouth; Start 09/02/18 at 10:30 Trazodone HCl (Desyrel) 50 mg BID PO Last administered on 09/25/18 08:52; Admin Dose 50 MG; Start 09/08/18 at 12:30 Lactobacillus Acidophilus/ Rhamnosus (Culturelle) 1 cap BID PO Last administered on 09/25/18 08:52; Admin Dose 1 CAP; Start 09/08/18 at 12:00 Promethazine HCl/ Codeine (Phenergan/ Codeine) 10 ml Q4H PRN PO COUGH Last administered on 09/25/18 09:03; Admin Dose 10 ML; Start 09/09/18 at 17:30 Cholecalciferol (Vitamin D) 2,000 unit DAILY PO Last administered on 09/25/18 08:52; Admin Dose 2,000 UNIT; Start 09/13/18 at 09:00 Diphenhydramine HCl (Benadryl) 50 mg Q4 PRN IV ITCHING Last administered on 09/25/18 06:09; Admin Dose 50 MG; Start 09/10/18 at 13:00 Levothyroxine Sodium (Synthroid) 50 mcg BEFORE BREAKFAST PO Last administered on 09/25/18 06:09; Admin Dose 50 MCG; Start 09/13/18 at 07:00 Lorazepam (Ativan) 2 mg Q6 PRN IV Anxiety Last administered on 09/25/18 09:03; Admin Dose 2 MG; Start 09/10/18 at 13:00 Methadone HCl (Methadone Liq) 1 mg TID PO Last administered on 09/25/18 12:45; Admin Dose 1 MG; Start 09/11/18 at 21:00 Pantoprazole (Protonix Tab) 40 mg DAILY@06 PO Last administered on 09/25/18 06:09; Admin Dose 40 MG; Start 09/13/18 at 06:00 Alteplase, Recombinant (Cathflo (Activase)) 2 mg MAY REPEAT X1 PRN CATHETER IF CATHETER REMAINS OCCULUDED Last administered on 09/23/18 11:55; Admin Dose 2 MG; Start 09/19/18 at 01:30 Zinc Sulfate (Zinc Sulfate) 220 mg DAILY PO Last administered on 09/25/18 08:52; Admin Dose 220 MG; Start 09/20/18 at 09:00 Levofloxacin/ Dextrose 150 ml @ 100 mls/hr Q24H IVPB Last administered on 09/24/18 15:20; Admin Dose 100 MLS/HR; Start 09/22/18 at 15:00 Mupirocin (Bactroban) 1 applic TID TOP Last administered on 09/25/18 12:45; Admin Dose 1 APPLIC; Start 09/22/18 at 21:00; Stop 10/06/18 at 23:00 Hydromorphone HCl (Dilaudid) 2 mg Q6H PRN PO SEVERE PAIN LEVEL 7-10 Last administered on 09/25/18 11:02; Admin Dose 2 MG; Start 09/24/18 at 10:30 Hydromorphone HCl (Dilaudid) 1 mg Q8H PRN IV SEVERE PAIN LEVEL 7-10 Last administered on 09/25/18 06:09; Admin Dose 1 MG; Start 09/24/18 at 10:30 Assessment/Plan Assessment/Plan (Daily) IMP: 1. Persistent hemoptysis--CT chest notable for RLL lateral segment bronchiectasis as well as numerous peripheral micronodules. Etiology of hemoptysis may well be due to RLL ectatic disease vs. less likely 2/2 one of the micronodules which represent DIPNECH/carcinoid tumorlets. RECS: 1. Will discuss possible bronchial artery angiography (RLL) with possible embolization, if blush noted on angio. ALBAN BEY MD Sep 25, 2018 13:53
[2018-09-25] MEDS: ACETAMINOPHEN 500 MG TAB PO PRN (14:12)
[2018-09-25] MEDS: LEVOFLOXACIN 750MG/D5W (PMX) 150 ML IVPB SCH (14:47)
--- NOTE | 2018-09-25 15:17 | PN ---
Date/Time of Note Date/Time of Note DATE: 09/25/18 TIME: 15:12 Assessment/Plan VTE Prophylaxis Risk score (from Nsg)>0 risk: 2 SCD applied (from Nsg): No Lines/Catheters IV Catheter Type (from Nrsg): PICC Line Central line still needed: Yes Urinary Cath still in place: No Assessment/Plan Assessment/Plan h/o Lymphoma -thus far there are no lesions that can be biopsied and it does not appear she has active cancer #Anemia-hgb 9.8 today -Hgb Electrophoresis - confirms B- thalassemia trait with Anemia -pt has had microcytic anemia requiring transfusions for years -will order a bone marrow bx at this time- pending -anemia panel-anemia positive # Hemoptysis VS Hematemesis - GI follows - 08/31/2018- S/P esophagogastroduodenoscopy- showed no evidence of any gastrointestinal bleed. #Hemoptysis, recurrent. -s/p unremarkable bronchoscopy at [facility] -s/p unremarkable flexible laryngoscopy 02/05/17 at [facility] -CT Chest pulmonary nodules are noted but are too small to biopsy -ID workup pending for pulmonary nodules- Numerous tiny lung nodules, increased in number from the chest CT dated May 22, 2018, with largest measuring 0.3 cm in the left apex - 02/2018- negative TB workup -08/21/18-CT Chest Angio- no new changes. will do Follow-up CT in X 3-4 months to insure stability as recommended - 08/24/18- Repeat bronchoscopy - wnl - Given her platelets and coag panel are wnl; Bronchoscopy is wnl #pancolitis. -Colonoscopy on 08/17/2018 showed patchy colitis. bx was negative -Stool positive for Giardia- pt on vancomycin and Flagyl # Pulmonary nodules, stable, present back in 2016; observe. - Repeat imaging in 3 months. QGold -ve. Appreciate ID assistance # Chr pain syndrome. # Prediabetes? # Ulcer of the frenulum linguae. # Rt lwr ext DVT, not a candidate for anticoagulation. Stable, cont IVCf status. # Nonadherence. Tries to manipulate staff for narcotics prior to therapy or investigative studies. [facility]Patient seen in collaboration with Dr Brown. Staff Result Diagram: 09/25/18 0645 09/25/18 0645 Results 24hrs Laboratory Tests Test 09/25/18 06:45 White Blood Count 4.5 L Red Blood Count 3.86 L Hemoglobin 9.8 L Hematocrit 31.0 L Mean Corpuscular Volume 80.3 L Mean Corpuscular Hemoglobin 25.4 L Mean Corpuscular Hemoglobin Concent 31.6 L Red Cell Distribution Width 18.7 H Platelet Count 240 Mean Platelet Volume 10.5 H Immature Granulocytes % 1.100 H Neutrophils % 43.9 Lymphocytes % 38.8 Monocytes % 11.3 H Eosinophils % 3.8 Basophils % 1.1 Nucleated Red Blood Cells % 0.0 Immature Granulocytes # 0.050 H Neutrophils # 2.0 Lymphocytes # 1.8 Monocytes # 0.5 Eosinophils # 0.2 Basophils # 0.1 Nucleated Red Blood Cells # 0.0 Sodium Level 142 Potassium Level 3.8 Chloride Level 103 Carbon Dioxide Level 26 Anion Gap 13 Blood Urea Nitrogen 17 Creatinine 0.50 Est Glomerular Filtrat Rate mL/min > 60 Glucose Level 116 # Calcium Level 9.4 Exam/Review of Systems Exam Vitals Vital Signs Date Temp Pulse Resp B/P (MAP) Pulse Ox O2 O2 Flow FiO2 Time Delivery Rate 09/25/18 99.1 14:12 09/25/18 104 20 145/65 97 Room Air 13:52 (91) Intake and Output 09/24/18 09/24/18 09/25/18 1515:00 23:00 07:00 IntakeIntake Total 360 ml 630 ml 860 ml OutputOutput Total 110 ml 1200 ml BalanceBalance 360 ml 520 ml -340 ml Results Results 24hrs Laboratory Tests Test 09/25/18 06:45 White Blood Count 4.5 L Red Blood Count 3.86 L Hemoglobin 9.8 L Hematocrit 31.0 L Mean Corpuscular Volume 80.3 L Mean Corpuscular Hemoglobin 25.4 L Mean Corpuscular Hemoglobin Concent 31.6 L Red Cell Distribution Width 18.7 H Platelet Count 240 Mean Platelet Volume 10.5 H Immature Granulocytes % 1.100 H Neutrophils % 43.9 Lymphocytes % 38.8 Monocytes % 11.3 H Eosinophils % 3.8 Basophils % 1.1 Nucleated Red Blood Cells % 0.0 Immature Granulocytes # 0.050 H Neutrophils # 2.0 Lymphocytes # 1.8 Monocytes # 0.5 Eosinophils # 0.2 Basophils # 0.1 Nucleated Red Blood Cells # 0.0 Sodium Level 142 Potassium Level 3.8 Chloride Level 103 Carbon Dioxide Level 26 Anion Gap 13 Blood Urea Nitrogen 17 Creatinine 0.50 Est Glomerular Filtrat Rate mL/min > 60 Glucose Level 116 # Calcium Level 9.4 Medications Medication Current Medications IV Flush (NS 3 ml) 3 ml PER PROTOCOL IV ; Start 08/13/18 at 20:00 Ondansetron HCl (Zofran Inj) 4 mg Q6H PRN IV NAUSEA AND/OR VOMITING Last administered on 09/13/18at 00:30; Admin Dose 4 MG; Start 08/13/18 at 20:00 Glucose (Glutose) 15 gm Q15M PRN PO DECREASED GLUCOSE; Start 08/17/18 at 10:30 Glucose (Glutose) 22.5 gm Q15M PRN PO DECREASED GLUCOSE; Start 08/17/18 at 10:30 Dextrose (D50w Syringe) 25 ml Q15M PRN IV DECREASED GLUCOSE; Start 08/17/18 at 10:30 Dextrose (D50w Syringe) 50 ml Q15M PRN IV DECREASED GLUCOSE; Start 08/17/18 at 10:30 Glucagon (Glucagen) 1 mg Q15M PRN IM DECREASED GLUCOSE; Start 08/17/18 at 10:30 Glucose (Glutose) 15 gm Q15M PRN BUCCAL DECREASED GLUCOSE; Start 08/17/18 at 10:30 Zolpidem Tartrate (Ambien) 10 mg QHS PRN PO INSOMNIA Last administered on 09/24/18at 20:54; Admin Dose 10 MG; Start 08/20/18 at 11:30 Phenol (Cepastat Lozenge) 1 lozenge Q1H PRN MT THROAT PAIN Last administered on 09/17/18at 10:37; Admin Dose 1 LOZENGE; Start 08/21/18 at 11:00 Acetaminophen (Tylenol Tab) 500 mg Q6H PRN PO MILD PAIN(1-3)OR ELEVATED TEMP Last administered on 09/25/18at 14:12; Admin Dose 500 MG; Start 09/01/18 at 18:30 Lidocaine (Xylocaine (Viscous)) 15 ml QID PRN PO Pain in the mouth; Start 09/02 at 10:30 Trazodone HCl (Desyrel) 50 mg BID PO Last administered on 09/25/18 08:52; Admin Dose 50 MG; Start 09/08/18 at 12:30 Lactobacillus Acidophilus/ Rhamnosus (Culturelle) 1 cap BID PO Last a dministered on 09/25/18 08:52; Admin Dose 1 CAP; Start 09/08/18 at 12:00 Promethazine HCl/ Codeine (Phenergan/ Codeine) 10 ml Q4H PRN PO COUGH Last administered on 09/25/18 14:12; Admin Dose 10 ML; Start 09/09/18 at 17:30 Cholecalciferol (Vitamin D) 2,000 unit DAILY PO Last administered on 09/25/18 08:52; Admin Dose 2,000 UNIT; Start 09/13/18 at 09:00 Diphenhydramine HCl (Benadryl) 50 mg Q4 PRN IV ITCHING Last administered on 09/25/18 14:02; Admin Dose 50 MG; Start 09/10/18 at 13:00 Levothyroxine Sodium (Synthroid) 50 mcg BEFORE BREAKFAST PO Last administered on 09/25/18 06:09; Admin Dose 50 MCG; Start 09/13/18 at 07:00 Lorazepam (Ativan) 2 mg Q6 PRN IV Anxiety Last administered on 09/25/18 09:03; Admin Dose 2 MG; Start 09/10/18 at 13:00 Methadone HCl (Methadone Liq) 1 mg TID PO Last administered on 09/25/18 12:45; Admin Dose 1 MG; Start 09/11/18 at 21:00 Pantoprazole (Protonix Tab) 40 mg DAILY@06 PO Last administered on 09/25/18 06:09; Admin Dose 40 MG; Start 09/13/18 at 06:00 Alteplase, Recombinant (Cathflo (Activase)) 2 mg MAY REPEAT X1 PRN CATHETER IF CATHETER REMAINS OCCULUDED Last administered on 09/23/18 11:55; Admin Dose 2 MG; Start 09/19/18 at 01:30 Zinc Sulfate (Zinc Sulfate) 220 mg DAILY PO Last administered on 09/25/18 08:52; Admin Dose 220 MG; Start 09/20/18 at 09:00 Levofloxacin/ Dextrose 150 ml @ 100 mls/hr Q24H IVPB Last administered on 09/25/18 14:47; Admin Dose 100 MLS/HR; Start 09/22/18 at 15:00 Mupirocin (Bactroban) 1 applic TID TOP Last administered on 09/25/18 12:45; Admin Dose 1 APPLIC; Start 09/22/18 at 21:00; Stop 10/06/18 at 23:00 Hydromorphone HCl (Dilaudid) 2 mg Q6H PRN PO SEVERE PAIN LEVEL 7-10 Last administered on 09/25/18 11:02; Admin Dose 2 MG; Start 09/24/18 at 10:30 Hydromorphone HCl (Dilaudid) 1 mg Q8H PRN IV SEVERE PAIN LEVEL 7-10 Last administered on 09/25/18 13:59; Admin Dose 1 MG; Start 09/24/18 at 10:30 SULEMA WRIGHT Sep 25, 2018 15:17
--- NOTE | 2018-09-25 15:33 | RADRPT ---
Echocardiogram Report Patient Name: TAURUS SUAREZPatient ID: [id number] : 1965 (52y 10m)Study Date: 09/24/2018 2:16:27 PM Gender: FAccession #: [id number] Tech: Micheal Ortiz [facility] Location: [id number] Ref.Physician: LEON CORONA Height(Cm): BSA: Weight(Kg): Quality: Technically Difficult StudyAccount #: Procedures: Echocardiographic Report: Transthoracic echocardiogram examination. Indications: SEPSIS FOR VEGETATIONS. Findings: Left Ventricle: The left ventricular ejection fraction is visually estimated at 60 %. Mitral Valve: Normal appearance of the mitral valve leaflets. Aortic Valve: Normal appearance and function of the aortic valve. Tricuspid Valve: Normal appearance of the tricuspid valve. Pulmonic Valve: Normal pulmonic valve appearance and function with trivial (physiologic) regurgitation. IVC: Normal inferior vena cava appearance and respiratory collapse. Conclusions: The left ventricular ejection fraction is visually estimated at 60 %. Normal appearance of the mitral valve leaflets. Normal appearance of the tricuspid valve. Electronically Signed By: Dell Santa 2018-09-25 15:32:44 PST
--- NOTE | 2018-09-25 17:34 | PN ---
Date/Time of Note Date/Time of Note DATE: 09/25/18 TIME: 17:30 Assessment/Plan VTE Prophylaxis Risk score (from Nsg)>0 risk: 2 SCD applied (from Nsg): No SCD contraindicated: low risk/ambulating Pharmacological prophylaxis: NA/contraindicated Pharm contraindication: bleeding Lines/Catheters IV Catheter Type (from Nrsg): PICC Line Central line still needed: Yes Urinary Cath still in place: No Assessment/Plan Hospital Course Hospital Course: Initially evaluated for abdominal pain and diarrhea. C. difficile negative. Next is an issue was hemoptysis vs hematemesis. Patient was seen by GI and pulmonary. Bronchoscopy and EGD/ colonoscopy was negative for any acute process. Patient was seen by ENT and mild epistaxis was seen but could not account for the bleed. Laryngoscopy done. She was evaluated by the hematology Patient does not have any coagulopathy. CT chest, CT angiogram chest were both unremarkable. Patient was transfused at least 6 units of blood while admitted. Patient underwent repeat EGD and no active bleed seen. Bubble study negative. Plan is to transfer to tertiary care for evaluated hemoptysis of unknown etiology. The patient was reluctant yesterday and asked for a hospice consult for some reason, but however today agrees for tertiary care eval. In terms of the bacteremia. Patient will continue daptomycin until the . Levaquin till . Please see ID note for additional details. Additionally seen by behavioral health & pain management. Patient has pain seeking behavior. Manipulates staff to get Dilaudid prior to doing investigational studies or agreeing to medical care plan. I attempted to contact family and give them an update but there is nobody available at bedside or over the phone. I am unable to confirm patient's story of possible thyroid cancer. Or lymphoma. There is an old document stating the patient once told the physician that she has uterine cancer. Patient was following with with [facility] clinic and her paps were unremarkable. Patient's recent oncologist? was in [place] but now that her insurance has changed, she will need a new specialist. Addendum 09/24/18 - In the meantime over the last 10 days, patient still has intermittent hemoptysis. Has been seen by ENT-no acute etiology for hemoptysis seen. I curbsided cardiothoracic surgery here at november recommend repeat bronchoscopy until hemoptysis etiology has been diagnosed. Also diagnosed her with a right lower extremity DVT. Patient has an IVC filter. Imaging shows filter in place. There are some shadows in her biliary tract pro bably from previous surgery. Patient still not adherent to management/investigative studies, medical management, ambulatory instructions. In the meantime patient is still being treated for gram-negative sepsis of unknown etiology. Patient has poor peripheral IV access. Unable to remove the PICC. A repeat 2D echo for vegetation and wbc scan is pending later today. Please see ID note for complete details. A/P 1. Hemoptysis vs Hematemesis? bronch/ egd (twice) & laryngoscopy (09/01 & 09/22)= [facility]. Past egd/bronch in [place] [facility]. No path lesions/ scars. No bleeding diathesis. Refused tertiary eval in the past, but presently accepting transfer to [facility]. - CTA, echo w bubble study, HRCT, VQ all negative. esr/sylvia/ pft's/ sputum pH -P May need repeat bronchoscopy/angiogram. 2. H/o HL ? chemo/ xrt; repeat chemo ' [facility]. Saw an Onco in [place] last year. Sp BmBx-appears negative. 3. Ho PE/ Dvt, ivc filter in place. states done at [facility] for bilat upper ext DVT 4. Diarrhea/ giardia; Rxed; however occ diarrhea noted. sp colonoscopy 08/17: pa tchy colitis 5. Past h/o c diff 6. H/o thyroid nodule/ ca- ? sp doug in [place]? vs [facility] 5. UTI 6. H/o H pylori; EGD- 'ulcers' within the last year. Current EGD -ve. 7. Cons bacteremia 09/01. Stenotrophomonas maltophilia bacteremia. 09/03: 2D -ve for veg. Source colon? Recent colon didnt show any mass/ cancer. Immunosuppressed? 8. Anemia; beta thalassemia trait; sp bone marrow 08/20 negative; spep ordered; but done/ -ve in the past too. 9. Chr pain syndrome. Pain seeking behavior. will try to manipulate staff for narcotics prior to medical care. 10. Prediabetes? 11. Ulcer of the frenulum linguae. 12. Ftt, stable discharge to snf at some point. Presently going to Tertiary Care ([facility] vs..) 13. Pulmonary nodules, stable, present back in 16; observe. may have segmental/ intermittant bleeding. Repeat imaging in 3 months. QGold -ve. 14. Fibromyalgia 15. Repeat sepsis/bacteremia gram-negative bacilli. Source? Tried to remove picc. Cont broad-spectrum antibiotics. rpt -pending. White cell scan ordered. 16. Rt lwr ext DVT, not a candidate for anticoagulation. Stable, cont IVCf st at[facility]. 17. Nonadherence. Tries to manipulate staff for narcotics prior to therapy or investigative studies. S: 08/23 feels ok; still bleeding. no dyspnea/ fever 08/24: Events noted still having hemoptysis. No hematuria 08/25: Hemoptysis again this morning? Patient denies any hematemesis or epistaxis 08/26: Recurrent hemoptysis this morning. No dyspnea fever 08/27: Still having hemoptysis? No hematochezia melena hematuria or epistaxis. No dyspnea fever. 08/28: Events noted. She is worried about her hemoptysis. 08/29: Still bringing out a lot of blood. Hemoptysis versus hematemesis. Chronic stable we will consult GI. 09/06: Intermittent hemoptysis. Now having diarrhea without any GI bleed. No fevers. 09/07: Intermittent hemoptysis. Denies any fever vomiting GI bleed. No dyspnea. Does not have a regular oncologist and no outpatient support. Will need snf 09/08: 4 bouts diarrhea. no n/f. 'pain' in legs, abd. no known agg/rel factors. toradol- headache? no h/o rash/ dyspnea 09/09: Hemoptysis noted again. 77 m? [employer], vss. crying, but refusing working/ cxr. Denies any chest pain postnasal drip. No GI bleed. States of having lower abd/ suprapubic tenderness but no dysuria hematuria. Back pain upper/ around her shoulder blades. 09/10: coughing/ vomiting blood. 'pain', lwr abd/ back. now placed in front of nursing station 09/11: hemoptysis noted. Refuses therapy/ studies without dilaudid. Threatened to pull out picc. For tertiary eval. 09/12: no events 09/20: Fever blood cx noted. Hemoptysis for for blood transfusion. 09/21: Intermittent hemoptysis. Transfused overnight. No dyspnea or cough. Min ambulation. refused to have picc removed last night. still has pain seeking behavior. 09/22: No active bleed on ENT eval. poor IV access, May not be able to remove the PICC. 09/23: Refused antibiotics. Refused x-ray imaging. Now agreeable to VQ scan. Intermittent hemoptysis noted. 09/24: Recurrent intermittent hemoptysis/hematemesis. Nonadherence continues. 09/25: Intermittent fever noted. Will reattempt to consider PICC line removal. O vss PE No pallor. Reg s1s2 no mrg Clear Benign, nt; nd; no RRG No edema. lt picc c/d/i Disposition: To tertiary care if accepted Result Diagram: 09/25/18 0645 09/25/18 0645 Results 24hrs Laboratory Tests Test 09/25/18 06:45 White Blood Count 4.5 L Red Blood Count 3.86 L Hemoglobin 9.8 L Hematocrit 31.0 L Mean Corpuscular Volume 80.3 L Mean Corpuscular Hemoglobin 25.4 L Mean Corpuscular Hemoglobin Concent 31.6 L Red Cell Distribution Width 18.7 H Platelet Count 240 Mean Platelet Volume 10.5 H Immature Granulocytes % 1.100 H Neutrophils % 43.9 Lymphocytes % 38.8 Monocytes % 11.3 H Eosinophils % 3.8 Basophils % 1.1 Nucleated Red Blood Cells % 0.0 Immature Granulocytes # 0.050 H Neutrophils # 2.0 Lymphocytes # 1.8 Monocytes # 0.5 Eosinophils # 0.2 Basophils # 0.1 Nucleated Red Blood Cells # 0.0 Sodium Level 142 Potassium Level 3.8 Chloride Level 103 Carbon Dioxide Level 26 Anion Gap 13 Blood Urea Nitrogen 17 Creatinine 0.50 Est Glomerular Filtrat Rate mL/min > 60 Glucose Level 116 # Calcium Level 9.4 Exam/Review of Systems Exam Vitals Vital Signs Date Temp Pulse Resp B/P (MAP) Pulse Ox O2 O2 Flow FiO2 Time Delivery Rate 09/25/18 100.6 15:11 09/25/18 104 20 145/65 97 Room Air 13:52 (91) Intake and Output 09/24/18 09/24/18 09/25/18 1515:00 23:00 07:00 IntakeIntake Total 360 ml 630 ml 860 ml OutputOutput Total 110 ml 1200 ml BalanceBalance 360 ml 520 ml -340 ml Results Results 24hrs Laboratory Tests Test 09/25/18 06:45 White Blood Count 4.5 L Red Blood Count 3.86 L Hemoglobin 9.8 L Hematocrit 31.0 L Mean Corpuscular Volume 80.3 L Mean Corpuscular Hemoglobin 25.4 L Mean Corpuscular Hemoglobin Concent 31.6 L Red Cell Distribution Width 18.7 H Platelet Count 240 Mean Platelet Volume 10.5 H Immature Granulocytes % 1.100 H Neutrophils % 43.9 Lymphocytes % 38.8 Monocytes % 11.3 H Eosinophils % 3.8 Basophils % 1.1 Nucleated Red Blood Cells % 0.0 Immature Granulocytes # 0.050 H Neutrophils # 2.0 Lymphocytes # 1.8 Monocytes # 0.5 Eosinophils # 0.2 Basophils # 0.1 Nucleated Red Blood Cells # 0.0 Sodium Level 142 Potassium Level 3.8 Chloride Level 103 Carbon Dioxide Level 26 Anion Gap 13 Blood Urea Nitrogen 17 Creatinine 0.50 Est Glomerular Filtrat Rate mL/min > 60 Glucose Level 116 # Calcium Level 9.4 Medications Medication Current Medications IV Flush (NS 3 ml) 3 ml PER PROTOCOL IV ; Start 08/13/18 at 20:00 Ondansetron HCl (Zofran Inj) 4 mg Q6H PRN IV NAUSEA AND/OR VOMITING Last administered on 09/13/18at 00:30; Admin Dose 4 MG; Start 08/13/18 at 20:00 Glucose (Glutose) 15 gm Q15M PRN PO DECREASED GLUCOSE; Start 08/17/18 at 10:30 Glucose (Glutose) 22.5 gm Q15M PRN PO DECREASED GLUCOSE; Start 08/17/18 at 10:30 Dextrose (D50w Syringe) 25 ml Q15M PRN IV DECREASED GLUCOSE; Start 08/17/18 at 10:30 Dextrose (D50w Syringe) 50 ml Q15M PRN IV DECREASED GLUCOSE; Start 08/17/18 at 10:30 Glucagon (Glucagen) 1 mg Q15M PRN IM DECREASED GLUCOSE; Start 08/17/18 at 10:30 Glucose (Glutose) 15 gm Q15M PRN BUCCAL DECREASED GLUCOSE; Start 08/17/18 at 10:30 Zolpidem Tartrate (Ambien) 10 mg QHS PRN PO INSOMNIA Last administered on 09/24/18 20:54; Admin Dose 10 MG; Start 08/20/18 at 11:30 Phenol (Cepastat Lozenge) 1 lozenge Q1H PRN MT THROAT PAIN Last administered on 09/17/18 10:37; Admin Dose 1 LOZENGE; Start 08/21/18 at 11:00 Acetaminophen (Tylenol Tab) 500 mg Q6H PRN PO MILD PAIN(1-3)OR ELEVATED TEMP Last administered on 09/25/18 14:12; Admin Dose 500 MG; Start 09/01/18 at 18:30 Lidocaine (Xylocaine (Viscous)) 15 ml QID PRN PO Pain in the mouth; Start 09/02/18 at 10:30 Trazodone HCl (Desyrel) 50 mg BID PO Last administered on 09/25/18 08:52; Admin Dose 50 MG; Start 09/08/18 at 12:30 Lactobacillus Acidophilus/ Rhamnosus (Culturelle) 1 cap BID PO Last administered on 09/25/18 08:52; Admin Dose 1 CAP; Start 09/08/18 at 12:00 Promethazine HCl/ Codeine (Phenergan/ Codeine) 10 ml Q4H PRN PO COUGH Last administered on 09/25/18 14:12; Admin Dose 10 ML; Start 09/09/18 at 17:30 Cholecalciferol (Vitamin D) 2,000 unit DAILY PO Last administered on 09/25/18 08:52; Admin Dose 2,000 UNIT; Start 09/13/18 at 09:00 Diphenhydramine HCl (Benadryl) 50 mg Q4 PRN IV ITCHING Last administered on 09/25/18 14:02; Admin Dose 50 MG; Start 09/10/18 at 13:00 Levothyroxine Sodium (Synthroid) 50 mcg BEFORE BREAKFAST PO Last administered on 09/25/18 06:09; Admin Dose 50 MCG; Start 09/13/18 at 07:00 Lorazepam (Ativan) 2 mg Q6 PRN IV Anxiety Last administered on 09/25/18 15:06; Admin Dose 2 MG; Start 09/10/18 at 13:00 Methadone HCl (Methadone Liq) 1 mg TID PO Last administered on 09/25/18 12:45; Admin Dose 1 MG; Start 09/11/18 at 21:00 Pantoprazole (Protonix Tab) 40 mg DAILY@06 PO Last administered on 09/25/18 06:09; Admin Dose 40 MG; Start 09/13/18 at 06:00 Alteplase, Recombinant (Cathflo (Activase)) 2 mg MAY REPEAT X1 PRN CATHETER IF CATHETER REMAINS OCCULUDED Last administered on 09/23/18 11:55; Admin Dose 2 MG; Start 09/19/18 at 01:30 Zinc Sulfate (Zinc Sulfate) 220 mg DAILY PO Last administered on 09/25/18 08:52; Admin Dose 220 MG; Start 09/20/18 at 09:00 Levofloxacin/ Dextrose 150 ml @ 100 mls/hr Q24H IVPB Last administered on 09/25/18 14:47; Admin Dose 100 MLS/HR; Start 09/22/18 at 15:00 Mupirocin (Bactroban) 1 applic TID TOP Last administered on 09/25/18 12:45; Admin Dose 1 APPLIC; Start 09/22/18 at 21:00; Stop 10/06/18 at 23:00 Hydromorphone HCl (Dilaudid) 2 mg Q6H PRN PO SEVERE PAIN LEVEL 7-10 Last administered on 09/25/18 16:57; Admin Dose 2 MG; Start 09/24/18 at 10:30 Hydromorphone HCl (Dilaudid) 1 mg Q8H PRN IV SEVERE PAIN LEVEL 7-10 Last administered on 09/25/18 13:59; Admin Dose 1 MG; Start 09/24/18 at 10:30 LEON CORONA MD Sep 25, 2018 17:34
[2018-09-25] MEDS: ZOLPIDEM 5 MG TAB PO PRN (20:07)
--- NOTE | 2018-09-25 23:23 | CONS ---
Assessment/Plan Assessment/Plan Assessment/Plan (Daily) h/o Lymphoma -thus far there are no lesions that can be biopsied and it does not appear she has active cancer #Anemia-hgb 9.8 today -Hgb Electrophoresis - confirms B- thalassemia trait with Anemia -pt has had microcytic anemia requiring transfusions for years -will order a bone marrow bx at this time- pending -anemia panel-anemia positive # Hemoptysis VS Hematemesis - GI follows - 08/31/2018- S/P esophagogastroduodenoscopy- showed no evidence of any gastrointestinal bleed. #Hemoptysis, recurrent. -s/p unremarkable bronchoscopy at [facility] -s/p unremarkable flexible laryngoscopy 02/05/17 at [facility] -CT Chest pulmonary nodules are noted but are too small to biopsy -ID workup pending for pulmonary nodules- Numerous tiny lung nodules, increased in number from the chest CT dated May 22, 2018, with largest measuring 0.3 cm in the left apex - 02/2018- negative TB workup -08/21/18-CT Chest Angio- no new changes. will do Follow-up CT in X 3-4 months to insure stability as recommended - 08/24/18- Repeat bronchoscopy - wnl - Given her platelets and coag panel are wnl; Bronchoscopy is wnl #pancolitis. -Colonoscopy on 08/17/2018 showed patchy colitis. bx was negative -Stool positive for Giardia- pt on vancomycin and Flagyl # Pulmonary nodules, stable, present back in 2016; observe. - Repeat imaging in 3 months. QGold -ve. Appreciate ID assistance # Chr pain syndrome. # Prediabetes? # Ulcer of the frenulum linguae. # Rt lwr ext DVT, not a candidate for anticoagulation. Stable, cont IVCf st atus. # Nonadherence. Tries to manipulate staff for narcotics prior to therapy or investigative studies. Presently going to [facility] ([facility] vs.).Patient seen in collaboration with Dr Brown. Dw Staff Consultation Date/Type/Reason Admit Date/Time Aug 13, 2018 at 5:22 pm Initial Consult Date 08/19/18 Type of Consult ONCOLOGY Requesting Provider: SHAQUILLE HARRIS Date/Time of Note DATE: 09/25/18 TIME: 23:23 24 HR Interval Summary Free Text/Dictation 1517-- resting in bed - c/o pain - but patient seems comfortable - Transfer to higher level of care att [facility]- pending; no bed available yet - no new issues reported overnight Detailed Summary Eyes: no complaints ENT: no complaints Respiratory: no complaints Cardiovascular: no complaints Gastrointestinal: no complaints Genitourinary: no complaints Musculoskeletal: other (body ache) Skin: no complaints Neurologic: no complaints Endocrine: no complaints Lymphatic: no complaints Exam/Review of Systems Exam Vitals Vital Signs Date Temp Pulse Resp B/P (MAP) Pulse Ox O2 O2 Flow FiO2 Time Delivery Rate 09/25/18 91 110/72 23:16 (85) 09/25/18 98.4 18 98 20:01 09/25/18 Room Air 13:52 Intake and Output 09/24/18 09/24/18 09/25/18 1515:00 23:00 07:00 IntakeIntake Total 360 ml 630 ml 860 ml OutputOutput Total 110 ml 1200 ml BalanceBalance 360 ml 520 ml -340 ml Constitutional: alert, well developed Psych: nl mood/affect Head: atraumatic Eyes: nl lids, nl sclera ENMT: nl external ears & nose Neck: non-tender Respiratory: diminished breath sounds (bilaterally at base) Cardiovascular: nl pulses, other (s1s2) Gastrointestinal: soft, non-tender Musculoskeletal: nl extremities to inspection Extremities: normal pulses Neurological: nl speech Skin: nl turgor Lymph: nontender Results Result Diagram: 09/25/18 0645 09/25/18 0645 Results 24hrs Laboratory Tests Test 09/25/18 06:45 White Blood Count 4.5 L Red Blood Count 3.86 L Hemoglobin 9.8 L Hematocrit 31.0 L Mean Corpuscular Volume 80.3 L Mean Corpuscular Hemoglobin 25.4 L Mean Corpuscular Hemoglobin Concent 31.6 L Red Cell Distribution Width 18.7 H Platelet Count 240 Mean Platelet Volume 10.5 H Immature Granulocytes % 1.100 H Neutrophils % 43.9 Lymphocytes % 38.8 Monocytes % 11.3 H Eosinophils % 3.8 Basophils % 1.1 Nucleated Red Blood Cells % 0.0 Immature Granulocytes # 0.050 H Neutrophils # 2.0 Lymphocytes # 1.8 Monocytes # 0.5 Eosinophils # 0.2 Basophils # 0.1 Nucleated Red Blood Cells # 0.0 Sodium Level 142 Potassium Level 3.8 Chloride Level 103 Carbon Dioxide Level 26 Anion Gap 13 Blood Urea Nitrogen 17 Creatinine 0.50 Est Glomerular Filtrat Rate mL/min > 60 Glucose Level 116 # Calcium Level 9.4 Medications Medication Current Medications IV Flush (NS 3 ml) 3 ml PER PROTOCOL IV ; Start 08/13/18 at 20:00 Ondansetron HCl (Zofran Inj) 4 mg Q6H PRN IV NAUSEA AND/OR VOMITING Last administered on 09/13/18at 00:30; Admin Dose 4 MG; Start 08/13/18 at 20:00 Glucose (Glutose) 15 gm Q15M PRN PO DECREASED GLUCOSE; Start 08/17/18 at 10:30 Glucose (Glutose) 22.5 gm Q15M PRN PO DECREASED GLUCOSE; Start 08/17/18 at 10:3 0 Dextrose (D50w Syringe) 25 ml Q15M PRN IV DECREASED GLUCOSE; Start 08/17/18 at 10:30 Dextrose (D50w Syringe) 50 ml Q15M PRN IV DECREASED GLUCOSE; Start 08/17/18 at 10:30 Glucagon (Glucagen) 1 mg Q15M PRN IM DECREASED GLUCOSE; Start 08/17/18 at 10:30 Glucose (Glutose) 15 gm Q15M PRN BUCCAL DECREASED GLUCOSE; Start 08/17/18 at 10:30 Zolpidem Tartrate (Ambien) 10 mg QHS PRN PO INSOMNIA Last administered on 09/25/18at 20:07; Admin Dose 10 MG; Start 08/20/18 at 11:30 Phenol (Cepastat Lozenge) 1 lozenge Q1H PRN MT THROAT PAIN Last administered on 09/17/18at 10:37; Admin Dose 1 LOZENGE; Start 08/21/18 at 11:00 Acetaminophen (Tylenol Tab) 500 mg Q6H PRN PO MILD PAIN(1-3)OR ELEVATED TEMP Last administered on 09/25/18at 14:12; Admin Dose 500 MG; Start 09/01/18 at 18:30 Lidocaine (Xylocaine (Viscous)) 15 ml QID PRN PO Pain in the mouth; Start 09/02/18 at 10:30 Trazodone HCl (Desyrel) 50 mg BID PO Last administered on 09/25/18at 20:07; Admin Dose 50 MG; Start 09/08/18 at 12:30 Lactobacillus Acidophilus/ Rhamnosus (Culturelle) 1 cap BID PO Last administered on 09/25/18 20:07; Admin Dose 1 CAP; Start 09/08/18 at 12:00 Promethazine HCl/ Codeine (Phenergan/ Codeine) 10 ml Q4H PRN PO COUGH Last administered on 09/25/18 23:20; Admin Dose 10 ML; Start 09/09/18 at 17:30 Cholecalciferol (Vitamin D) 2,000 unit DAILY PO Last administered on 09/25/18 08:52; Admin Dose 2,000 UNIT; Start 09/13/18 at 09:00 Diphenhydramine HCl (Benadryl) 50 mg Q4 PRN IV ITCHING Last administered on 09/25/18 22:14; Admin Dose 50 MG; Start 09/10/18 at 13:00 Levothyroxine Sodium (Synthroid) 50 mcg BEFORE BREAKFAST PO Last administered on 09/25/18 06:09; Admin Dose 50 MCG; Start 09/13/18 at 07:00 Lorazepam (Ativan) 2 mg Q6 PRN IV Anxiety Last administered on 09/25/18 23:19; Admin Dose 2 MG; Start 09/10/18 at 13:00 Methadone HCl (Methadone Liq) 1 mg TID PO Last administered on 09/25/18 20:07; Admin Dose 1 MG; Start 09/11/18 at 21:00 Pantoprazole (Protonix Tab) 40 mg DAILY@06 PO Last administered on 09/25/18 06:09; Admin Dose 40 MG; Start 09/13/18 at 06:00 Alteplase, Recombinant (Cathflo (Activase)) 2 mg MAY REPEAT X1 PRN CATHETER IF CATHETER REMAINS OCCULUDED Last administered on 09/23/18 11:55; Admin Dose 2 MG; Start 09/19/18 at 01:30 Zinc Sulfate (Zinc Sulfate) 220 mg DAILY PO Last administered on 09/25/18 08:52; Admin Dose 220 MG; Start 09/20/18 at 09:00 Levofloxacin/ Dextrose 150 ml @ 100 mls/hr Q24H IVPB Last administered on 09/25/18 14:47; Admin Dose 100 MLS/HR; Start 09/22/18 at 15:00 Mupirocin (Bactroban) 1 applic TID TOP Last administered on 09/25/18at 20:07; Admin Dose 1 APPLIC; Start 09/22/18 at 21:00; Stop 10/06/18 at 23:00 Hydromorphone HCl (Dilaudid) 2 mg Q6H PRN PO SEVERE PAIN LEVEL 7-10 Last administered on 09/25/18at 16:57; Admin Dose 2 MG; Start 09/24/18 at 10:30 Hydromorphone HCl (Dilaudid) 1 mg Q8H PRN IV SEVERE PAIN LEVEL 7-10 Last administered on 09/25/18at 22:14; Admin Dose 1 MG; Start 09/24/18 at 10:30 SULEMA WRIGHT Sep 25, 2018 11:23 pm
[2018-09-26 01:41] VITALS: BP 122/73; PULSE 99; RESP 18
[2018-09-26] MEDS: HYDROmorphONE 2 MG TAB PO PRN ×3 (02:16→16:24)
[2018-09-26] MEDS: DIPHENHYDRAMINE 50 MG INJ IV PRN ×6 (02:16→22:36)
[2018-09-26] MEDS: LEVOTHYROXINE 50 MCG TAB PO SCH (06:08)
[2018-09-26] MEDS: PANTOPRAZOLE (EC) 40 MG TAB PO SCH (06:08)
[2018-09-26] MEDS: HYDROmorphONE 1 MG/ML SYG IV PRN ×4 (06:13→22:36)
[2018-09-26 07:41] VITALS: BP 119/82; PULSE 89; RESP 18
[2018-09-26] MEDS: LACTOBACILLUS RHAMNOSUS CAP PO SCH ×2 (08:50→21:00)
[2018-09-26] MEDS: ZINC SULFATE 220 MG CAP PO SCH (08:50)
[2018-09-26] MEDS: traZODone 50 MG TAB PO SCH ×2 (08:50→21:00)
[2018-09-26] MEDS: CHOLECALCIFEROL 2,000 UNIT CAP PO SCH (08:50)
[2018-09-26] MEDS: PROMETHAZINE/CODEINE 5ML CUP PO PRN ×4 (08:50→23:17)
[2018-09-26] MEDS: METHADONE (1 MG/ML 5 ML PO UD SYG) PO SCH ×3 (08:57→21:00)
[2018-09-26] MEDS: MUPIROCIN 2% 22 GM OINT TOP SCH ×3 (08:58→21:00)
[2018-09-26] MEDS: LORAZEPAM 2 MG INJ IV PRN ×2 (10:20→17:43)
--- NOTE | 2018-09-26 13:31 | CONS ---
Consult Date/Type/Reason Admit Date/Time Aug 13, 2018 at 17:22 Initial Consult Date 09/01/18 Type of Consultation: Pulm Requesting Provider: SHAQUILLE HARRIS Date/Time of Note DATE: 09/26/18 TIME: 13:30 Subjective No hemoptysis noted overnight. Low grade temps noted. Objective Vitals Vital Signs Date Temp Pulse Resp B/P (MAP) Pulse Ox O2 O2 Flow FiO2 Time Delivery Rate 09/26/18 98.5 89 18 119/82 97 Room Air 07:41 (94) Intake and Output 09/25/18 09/25/18 09/26/18 1515:00 23:00 07:00 IntakeIntake Total 1050 ml OutputOutput Total 50 ml 50 ml BalanceBalance -50 ml 1050 ml -50 ml Exam HEENT: Neck supple; no JVD; no LAD CVS: RRR, S1 and S2 CHEST: Clear ABD: Soft, NT, + BS EXT: No c/c/e Results/Medications Result Diagram: 09/25/1845 09/25/1845 Home Meds Reported Medications Zolpidem Tartrate* (Ambien*) 5 Mg Tablet, 5 MG PO QHS PRN for INSOMNIA, #30 TAB 08/13/18 Cholecalciferol* (Vitamin D3*) 1,000 Unit Tablet, 1000 UNIT PO DAILY, TAB 08/13/18 Cholecalciferol* (Vitamin D3*) 1,000 Unit Tablet, 2000 UNIT PO DAILY, TAB 08/13/18 Potassium Chloride* (Potassium Chloride*) 20 Meq Tablet.er, 20 MEQ PO DAILY, TAB.SA 08/13/18 Duloxetine Hcl* (Cymbalta*) 60 Mg Capsule.dr, 60 MG PO DAILY, CAP 08/13/18 Oxycodone Hcl* (Oxycontin*) 15 Mg Tab.sr.12h, 15 MG PO Q12, TAB 08/13/18 Hydromorphone Hcl* (Dilaudid*) 8 Mg Tablet, 8 MG PO Q6H PRN for PAIN, TAB 08/13/18 Pantoprazole* (Protonix*) 40 Mg Tablet.dr, 40 MG PO AC BREAKFAST, TAB 08/13/18 Levothyroxine Sodium* (Levothyroxine Sodium*) 25 Mcg Tablet, 25 MCG PO BEFORE BREAKFAST, #30 TAB 08/13/18 Medications Current Medications IV Flush (NS 3 ml) 3 ml PER PROTOCOL IV ; Start 08/13/18 at 20:00 Ondansetron HCl (Zofran Inj) 4 mg Q6H PRN IV NAUSEA AND/OR VOMITING Last administered on 09/13/18at 00:30; Admin Dose 4 MG; Start 08/13/18 at 20:00 Glucose (Glutose) 15 gm Q15M PRN PO DECREASED GLUCOSE; Start 08/17/18 at 10:30 Glucose (Glutose) 22.5 gm Q15M PRN PO DECREASED GLUCOSE; Start 08/17/18 at 10:30 Dextrose (D50w Syringe) 25 ml Q15M PRN IV DECREASED GLUCOSE; Start 08/17/18 at 10:30 Dextrose (D50w Syringe) 50 ml Q15M PRN IV DECREASED GLUCOSE; Start 08/17/18 at 10:30 Glucagon (Glucagen) 1 mg Q15M PRN IM DECREASED GLUCOSE; Start 08/17/18 at 10:30 Glucose (Glutose) 15 gm Q15M PRN BUCCAL DECREASED GLUCOSE; Start 08/17/18 at 10:30 Zolpidem Tartrate (Ambien) 10 mg QHS PRN PO INSOMNIA Last administered on 09/25/18 20:07; Admin Dose 10 MG; Start 08/20/18 at 11:30 Phenol (Cepastat Lozenge) 1 lozenge Q1H PRN MT THROAT PAIN Last administered on 09/17/18at 10:37; Admin Dose 1 LOZENGE; Start 08/21/18 at 11:00 Acetaminophen (Tylenol Tab) 500 mg Q6H PRN PO MILD PAIN(1-3)OR ELEVATED TEMP Last administered on 09/25/18at 14:12; Admin Dose 500 MG; Start 09/01/18 at 18:30 Lidocaine (Xylocaine (Viscous)) 15 ml QID PRN PO Pain in the mouth; Start 09/02/18 at 10:30 Trazodone HCl (Desyrel) 50 mg BID PO Last administered on 09/26/18 08:50; Admin Dose 50 MG; Start 09/08/18 at 12:30 Lactobacillus Acidophilus/ Rhamnosus (Culturelle) 1 cap BID PO Last admini stered on 09/26/18 08:50; Admin Dose 1 CAP; Start 09/08/18 at 12:00 Promethazine HCl/ Codeine (Phenergan/ Codeine) 10 ml Q4H PRN PO COUGH Last administered on 09/26/18 08:50; Admin Dose 10 ML; Start 09/09/18 at 17:30 Cholecalciferol (Vitamin D) 2,000 unit DAILY PO Last administered on 09/26/18 08:50; Admin Dose 2,000 UNIT; Start 09/13/18 at 09:00 Diphenhydramine HCl (Benadryl) 50 mg Q4 PRN IV ITCHING Last administered on 09/26/18 10:20; Admin Dose 50 MG; Start 09/10/18 at 13:00 Levothyroxine Sodium (Synthroid) 50 mcg BEFORE BREAKFAST PO Last administered on 09/26/18 06:08; Admin Dose 50 MCG; Start 09/13/18 at 07:00 Lorazepam (Ativan) 2 mg Q6 PRN IV Anxiety Last administered on 09/26/18 10:20; Admin Dose 2 MG; Start 09/10/18 at 13:00 Methadone HCl (Methadone Liq) 1 mg TID PO Last administered on 09/26/18 12:10; Admin Dose 1 MG; Start 09/11/18 at 21:00 Pantoprazole (Protonix Tab) 40 mg DAILY@06 PO Last administered on 09/26/18 06:08; Admin Dose 40 MG; Start 09/13/18 at 06:00 Alteplase, Recombinant (Cathflo (Activase)) 2 mg MAY REPEAT X1 PRN CATHETER IF CATHETER REMAINS OCCULUDED Last administered on 09/23/18 11:55; Admin Dose 2 MG; Start 09/19/18 at 01:30 Zinc Sulfate (Zinc Sulfate) 220 mg DAILY PO Last administered on 09/26/18 08:50; Admin Dose 220 MG; Start 09/20/18 at 09:00 Levofloxacin/ Dextrose 150 ml @ 100 mls/hr Q24H IVPB Last administered on 09/25/18 14:47; Admin Dose 100 MLS/HR; Start 09/22/18 at 15:00 Mupirocin (Bactroban) 1 applic TID TOP Last administered on 09/26/18 08:58; Admin Dose 1 APPLIC; Start 09/22/18 at 21:00; Stop 10/06/18 at 23:00 Hydromorphone HCl (Dilaudid) 2 mg Q6H PRN PO SEVERE PAIN LEVEL 7-10 Last administered on 09/26/18at 12:13; Admin Dose 2 MG; Start 09/24/18 at 10:30 Hydromorphone HCl (Dilaudid) 1 mg Q8H PRN IV SEVERE PAIN LEVEL 7-10 Last administered on 09/26/18at 06:13; Admin Dose 1 MG; Start 09/24/18 at 10:30 Assessment/Plan Assessment/Plan (Daily) IMP: 1. Persistent hemoptysis--CT chest notable for RLL lateral segment bronchiectasis as well as numerous peripheral micronodules. Etiology of hemoptysis may well be due to RLL ectatic disease vs. less likely 2/2 one of the micronodules which may represent DIPNECH/carcinoid tumorlets. RECS: 1. Will discuss possible bronchial artery angiography (RLL) with possible embolization, if blush noted on angio 2. Await transfer to [facility]. ALBAN BEY MD Sep 26, 2018 13:31
--- NOTE | 2018-09-26 13:46 | PN ---
Date/Time of Note Date/Time of Note DATE: 09/26/18 TIME: 13:44 Assessment/Plan VTE Prophylaxis Risk score (from Nsg)>0 risk: 5 SCD applied (from Nsg): No SCD contraindicated: low risk/ambulating Pharmacological prophylaxis: NA/contraindicated Pharm contraindication: bleeding Lines/Catheters IV Catheter Type (from Nrsg): PICC Line Central line still needed: Yes Urinary Cath still in place: No Assessment/Plan Hospital Course Hospital Course: Initially evaluated for abdominal pain and diarrhea. C. difficile negative. Next is an issue was hemoptysis vs hematemesis. Patient was seen by GI and pulmonary. Bronchoscopy and EGD/ colonoscopy was negative for any acute process. Patient was seen by ENT and mild epistaxis was seen but could not account for the bleed. Laryngoscopy done. She was evaluated by the hematology Patient does not have any coagulopathy. CT chest, CT angiogram chest were both unremarkable. Patient was transfused at least 6 units of blood while admitted. Patient underwent repeat EGD and no active bleed seen. Bubble study negative. Plan is to transfer to tertiary care for evaluated hemoptysis of unknown etiology. The patient was reluctant yesterday and asked for a hospice consult for some reason, but however today agrees for tertiary care eval. In terms of the bacteremia. Patient will continue daptomycin until the . Levaquin till . Please see ID note for additional details. Additionally seen by behavioral health & pain management. Patient has pain seeking behavior. Manipulates staff to get Dilaudid prior to doing investigational studies or agreeing to medical care plan. I attempted to contact family and give them an update but there is nobody available at bedside or over the phone. I am unable to confirm patient's story of possible thyroid cancer. Or lymphoma. There is an old document stating the patient once told the physician that she has uterine cancer. Patient was following with with [facility] clinic and her paps were unremarkable. Patient's recent oncologist? was in [place] but now that her insurance has changed, she will need a new specialist. Addendum 09/24/18 - In the meantime over the last 10 days, patient still has intermittent hemoptysis. Has been seen by ENT-no acute etiology for hemoptysis seen. I curbsided cardiothoracic surgery here at november recommend repeat bronchoscopy until hemoptysis etiology has been diagnosed. Also diagnosed her with a right lower extremity DVT. Patient has an IVC filter. Imaging shows filter in place. There are some shadows in her biliary tract pro bably from previous surgery. Patient still not adherent to management/investigative studies, medical management, ambulatory instructions. In the meantime patient is still being treated for gram-negative sepsis of unknown etiology. Patient has poor peripheral IV access. Unable to remove the PICC. A repeat 2D echo for vegetation and wbc scan is pending later today. Please see ID note for complete details. A/P 1. Hemoptysis vs Hematemesis? bronch/ egd (twice) & laryngoscopy (09/01 & 09/22)= nrml. Past egd/bronch in [place] n[facility]. No path lesions/ scars. No bleeding diathesis. Refused tertiary eval in the past, but presently accepting transfer to [facility]. - CTA, echo w bubble study, HRCT, VQ all negative. esr/sylvia/ pft's/ sputum pH -P May need repeat bronchoscopy/angiogram. 2. H/o HL ? chemo/ xrt; repeat chemo ' [facility]. Saw an Onco in [place] last year. Sp BmBx-appears negative. 3. Ho PE/ Dvt, ivc filter in place. states done at [facility] for bilat upper ext DVT 4. Diarrhea/ giardia; Rxed; however occ diarrhea noted. sp colonoscopy 08/17: pa tchy colitis 5. Past h/o c diff 6. H/o thyroid nodule/ ca- ? sp doug in [place]? vs [facility] 5. UTI 6. H/o H pylori; EGD- 'ulcers' within the last year. Current EGD -ve. 7. Cons bacteremia 09/01. Stenotrophomonas maltophilia bacteremia. 09/03: 2D -ve for veg. Source colon? Recent colon didnt show any mass/ cancer. Immunosuppressed? 8. Anemia; beta thalassemia trait; sp bone marrow 08/20 negative; spep ordered; but done/ -ve in the past too. 9. Chr pain syndrome. Pain seeking behavior. will try to manipulate staff for narcotics prior to medical care. 10. Prediabetes? 11. Ulcer of the frenulum linguae. 12. Ftt, stable discharge to snf at some point. Presently going to Tertiary Care ([facility] vs..) 13. Pulmonary nodules, stable, present back in '16; observe. may have segmental/ intermittant bleeding. Repeat imaging in 3 months. QGold -ve. 14. Fibromyalgia 15. Repeat sepsis/bacteremia gnb. Source? Cont atb.sp wbc scan. will ask Vascular for access & dc picc. Rpt echo -P 16. Rt lwr ext DVT, not a candidate for anticoagulation. Stable, cont IVCf status. 17. Nonadherence. Tries to manipulate staff for narcotics prior to therapy or investigative studies. S: 08/23 feels ok; still bleeding. no dyspnea/ fever 08/24: Events noted still having hemoptysis. No hematuria 08/25: Hemoptysis again this morning? Patient denies any hematemesis or epistaxis 08/26: Recurrent hemoptysis this morning. No dyspnea fever 08/27: Still having hemoptysis? No hematochezia melena hematuria or epistaxis. No dyspnea fever. 08/28: Events noted. She is worried about her hemoptysis. 08/29: Still bringing out a lot of blood. Hemoptysis versus hematemesis. Chronic stable we will consult GI. 09/06: Intermittent hemoptysis. Now having diarrhea without any GI bleed. No fevers. 09/07: Intermittent hemoptysis. Denies any fever vomiting GI bleed. No dyspnea. Does not have a regular oncologist and no outpatient support. Will need snf 09/08: 4 bouts diarrhea. no n/f. 'pain' in legs, abd. no known agg/rel factors. toradol- headache? no h/o rash/ dyspnea 09/09: Hemoptysis noted again. 77 m? [employer], vss. crying, but refusing working/ cxr. Denies any chest pain postnasal drip. No GI bleed. States of having lower abd/ suprapubic tenderness but no dysuria hematuria. Back pain upper/ around her shoulder blades. 09/10: coughing/ vomiting blood. 'pain', lwr abd/ back. now placed in front of nursing station 09/11: hemoptysis noted. Refuses therapy/ studies without dilaudid. Threatened to pull out picc. For tertiary eval. 09/12: no events 09/20: Fever blood cx noted. Hemoptysis for for blood transfusion. 09/21: Intermittent hemoptysis. Transfused overnight. No dyspnea or cough. Min ambulation. refused to have picc removed last night. still has pain seeking behavior. 09/22: No active bleed on ENT eval. poor IV access, May not be able to remove the PICC. 09/23: Refused antibiotics. Refused x-ray imaging. Now agreeable to VQ scan. Intermittent hemoptysis noted. 09/24: Recurrent intermittent hemoptysis/hematemesis. Nonadherence continues. 09/25: Intermittent fever noted. Will reattempt to consider PICC line removal. 09/26: No hemoptysis overnight. Fever noted. Will ask Vascular for temporary line & DC PICC. May benefit from pulmonary angiogram. O vss PE No pallor. Reg s1s2 no mrg Clear Benign, nt; nd; no RRG No edema. lt picc c/d/i Disposition: To tertiary care if accepted Result Diagram: 09/25/1845 09/25/18 0645 Exam/Review of Systems Exam Vitals Vital Signs Date Temp Pulse Resp B/P (MAP) Pulse Ox O2 O2 Flow FiO2 Time Delivery Rate 09/26/18 98.5 89 18 119/82 97 Room Air 07:41 (94) Intake and Output 09/25/18 09/25/18 09/26/18 1515:00 23:00 07:00 IntakeIntake Total 1050 ml OutputOutput Total 50 ml 50 ml BalanceBalance -50 ml 1050 ml -50 ml Medications Medication Current Medications IV Flush (NS 3 ml) 3 ml PER PROTOCOL IV ; Start 08/13/18 at 20:00 Ondansetron HCl (Zofran Inj) 4 mg Q6H PRN IV NAUSEA AND/OR VOMITING Last administered on 09/13/18at 00:30; Admin Dose 4 MG; Start 08/13/18 at 20:00 Glucose (Glutose) 15 gm Q15M PRN PO DECREASED GLUCOSE; Start 08/17/18 at 10:30 Glucose (Glutose) 22.5 gm Q15M PRN PO DECREASED GLUCOSE; Start 08/17/18 at 10:30 Dextrose (D50w Syringe) 25 ml Q15M PRN IV DECREASED GLUCOSE; Start 08/17/18 at 10:30 Dextrose (D50w Syringe) 50 ml Q15M PRN IV DECREASED GLUCOSE; Start 08/17/18 at 10:30 Glucagon (Glucagen) 1 mg Q15M PRN IM DECREASED GLUCOSE; Start 08/17/18 at 10:30 Glucose (Glutose) 15 gm Q15M PRN BUCCAL DECREASED GLUCOSE; Start 08/17/18 at 10:30 Zolpidem Tartrate (Ambien) 10 mg QHS PRN PO INSOMNIA Last administered on 09/25/18 20:07; Admin Dose 10 MG; Start 08/20/18 at 11:30 Phenol (Cepastat Lozenge) 1 lozenge Q1H PRN MT THROAT PAIN Last administered on 09/17/18 10:37; Admin Dose 1 LOZENGE; Start 08/21/18 at 11:00 Acetaminophen (Tylenol Tab) 500 mg Q6H PRN PO MILD PAIN(1-3)OR ELEVATED TEMP [place] st administered on 09/25/18 14:12; Admin Dose 500 MG; Start 09/01/18 at 18:30 Lidocaine (Xylocaine (Viscous)) 15 ml QID PRN PO Pain in the mouth; Start 09/02/18 at 10:30 Trazodone HCl (Desyrel) 50 mg BID PO Last administered on 09/26/18 08:50; Admin Dose 50 MG; Start 09/08/18 at 12:30 Lactobacillus Acidophilus/ Rhamnosus (Culturelle) 1 cap BID PO Last administered on 09/26/18 08:50; Admin Dose 1 CAP; Start 09/08/18 at 12:00 Promethazine HCl/ Codeine (Phenergan/ Codeine) 10 ml Q4H PRN PO COUGH Last administered on 09/26/18 13:39; Admin Dose 10 ML; Start 09/09/18 at 17:30 Cholecalciferol (Vitamin D) 2,000 unit DAILY PO Last administered on 09/26/18 08:50; Admin Dose 2,000 UNIT; Start 09/13/18 at 09:00 Diphenhydramine HCl (Benadryl) 50 mg Q4 PRN IV ITCHING Last administered on 09/26/18 10:20; Admin Dose 50 MG; Start 09/10/18 at 13:00 Levothyroxine Sodium (Synthroid) 50 mcg BEFORE BREAKFAST PO Last administered on 09/26/18 06:08; Admin Dose 50 MCG; Start 09/13/18 at 07:00 Lorazepam (Ativan) 2 mg Q6 PRN IV Anxiety Last administered on 09/26/18 10:20; Admin Dose 2 MG; Start 09/10/18 at 13:00 Methadone HCl (Methadone Liq) 1 mg TID PO Last administered on 09/26/18 12:10; Admin Dose 1 MG; Start 09/11/18 at 21:00 Pantoprazole (Protonix Tab) 40 mg DAILY@06 PO Last administered on 09/26/18 06:08; Admin Dose 40 MG; Start 09/13/18 at 06:00 Alteplase, Recombinant (Cathflo (Activase)) 2 mg MAY REPEAT X1 PRN CATHETER IF CATHETER REMAINS OCCULUDED Last administered on 09/23/18 11:55; Admin Dose 2 MG; Start 09/19/18 at 01:30 Zinc Sulfate (Zinc Sulfate) 220 mg DAILY PO Last administered on 09/26/18 08:50; Admin Dose 220 MG; Start 09/20/18 at 09:00 Levofloxacin/ Dextrose 150 ml @ 100 mls/hr Q24H IVPB Last administered on 09/25/18 14:47; Admin Dose 100 MLS/HR; Start 09/22/18 at 15:00 Mupirocin (Bactroban) 1 applic TID TOP Last administered on 09/26/18 08:58; Admin Dose 1 APPLIC; Start 09/22/18 at 21:00; Stop 10/06/18 at 23:00 Hydromorphone HCl (Dilaudid) 2 mg Q6H PRN PO SEVERE PAIN LEVEL 7-10 Last administered on 09/26/18 12:13; Admin Dose 2 MG; Start 09/24/18 at 10:30 Hydromorphone HCl (Dilaudid) 1 mg Q8H PRN IV SEVERE PAIN LEVEL 7-10 Last administered on 09/26/18 06:13; Admin Dose 1 MG; Start 09/24/18 at 10:30 LEON CORONA MD Sep 26, 2018 13:46
[2018-09-26 14:29] VITALS: BP 122/63; PULSE 88; RESP 20
[2018-09-26] MEDS: LEVOFLOXACIN 750MG/D5W (PMX) 150 ML IVPB SCH (15:54)
[2018-09-26 19:40] VITALS: BP 108/59; PULSE 88; RESP 18
--- NOTE | 2018-09-26 22:11 | CONS ---
Consultation Date/Type/Reason Admit Date/Time Aug 13, 2018 at 5:22 pm Initial Consult Date 08/19/18 Type of Consult ONCOLOGY Requesting Provider: SHAQUILLE HARRIS Date/Time of Note DATE: 09/26/18 TIME: 22:06 24 HR Interval Summary Free Text/Dictation - sleeping; easily awakens - c/o having marichuy and pain - bt patient seems comfortable - Transfer to higher level of care att [facility]- pending; no bed available yet - no new issues reported overnight Detailed Summary Eyes: no complaints ENT: no complaints Respiratory: no complaints Cardiovascular: no complaints Gastrointestinal: no complaints Musculoskeletal: other (body aches) Skin: no complaints Neurologic: no complaints Endocrine: no complaints Lymphatic: no complaints Psychological: nl mood/affect Exam/Review of Systems Exam Vitals Vital Signs Date Temp Pulse Resp B/P (MAP) Pulse Ox O2 O2 Flow FiO2 Time Delivery Rate 09/26/18 98.1 88 18 108/59 96 19:40 (75) 09/26/18 Room Air 14:29 Intake and Output 09/25/18 09/25/18 09/26/18 1414:59 22:59 06:59 IntakeIntake Total 1050 ml OutputOutput Total 50 ml 50 ml BalanceBalance -50 ml 1050 ml -50 ml Constitutional: alert, oriented, well developed Psych: nl mood/affect Head: atraumatic Eyes: EOMI, nl lids, nl sclera ENMT: nl external ears & nose Neck: non-tender Respiratory: diminished breath sounds (at bases bilaterally) Cardiovascular: nl pulses, other (s1s2) Gastrointestinal: soft, non-tender Musculoskeletal: nl extremities to inspection Extremities: normal pulses Neurological: nl speech, other (alert/awake/responsive) Lymph: nontender Results Result Diagram: 09/25/18 0645 09/25/18 0645 Medications Medication Current Medications IV Flush (NS 3 ml) 3 ml PER PROTOCOL IV ; Start 08/13/18 at 20:00 Ondansetron HCl (Zofran Inj) 4 mg Q6H PRN IV NAUSEA AND/OR VOMITING Last administered on 09/13/18at 00:30; Admin Dose 4 MG; Start 08/13/18 at 20:00 Glucose (Glutose) 15 gm Q15M PRN PO DECREASED GLUCOSE; Start 08/17/18 at 10:30 Glucose (Glutose) 22.5 gm Q15M PRN PO DECREASED GLUCOSE; Start 08/17/18 at 10:30 Dextrose (D50w Syringe) 25 ml Q15M PRN IV DECREASED GLUCOSE; Start 08/17/18 at 10:30 Dextrose (D50w Syringe) 50 ml Q15M PRN IV DECREASED GLUCOSE; Start 08/17/18 at 10:30 Glucagon (Glucagen) 1 mg Q15M PRN IM DECREASED GLUCOSE; Start 08/17/18 at 10:30 Glucose (Glutose) 15 gm Q15M PRN BUCCAL DECREASED GLUCOSE; Start 08/17/18 at 10:30 Zolpidem Tartrate (Ambien) 10 mg QHS PRN PO INSOMNIA Last administered on 09/25/18 20:07; Admin Dose 10 MG; Start 08/20/18 at 11:30 Phenol (Cepastat Lozenge) 1 lozenge Q1H PRN MT THROAT PAIN Last administered on 09/17/18 10:37; Admin Dose 1 LOZENGE; Start 08/21/18 at 11:00 Acetaminophen (Tylenol Tab) 500 mg Q6H PRN PO MILD PAIN(1-3)OR ELEVATED TEMP Last administered on 09/25/18 14:12; Admin Dose 500 MG; Start 09/01/18 at 18:30 Lidocaine (Xylocaine (Viscous)) 15 ml QID PRN PO Pain in the mouth; Start 09/02/18 at 10:30 Trazodone HCl (Desyrel) 50 mg BID PO Last administered on 09/26/18 08:50; Admin Dose 50 MG; Start 09/08/18 at 12:30 Lactobacillus Acidophilus/ Rhamnosus (Culturelle) 1 cap BID PO Last administered on 09/26/18 08:50; Admin Dose 1 CAP; Start 09/08/18 at 12:00 Promethazine HCl/ Codeine (Phenergan/ Codeine) 10 ml Q4H PRN PO COUGH Last administered on 09/26/18 17:43; Admin Dose 10 ML; Start 09/09/18 at 17:30 Cholecalciferol (Vitamin D) 2,000 unit DAILY PO Last administered on 09/26/18 08:50; Admin Dose 2,000 UNIT; Start 09/13/18 at 09:00 Diphenhydramine HCl (Benadryl) 50 mg Q4 PRN IV ITCHING Last administered on 09/26/18 18:29; Admin Dose 50 MG; Start 09/10/18 at 13:00 Levothyroxine Sodium (Synthroid) 50 mcg BEFORE BREAKFAST PO Last administered on 09/26/18 06:08; Admin Dose 50 MCG; Start 09/13/18 at 07:00 Lorazepam (Ativan) 2 mg Q6 PRN IV Anxiety Last administered on 09/26/18 17:43; Admin Dose 2 MG; Start 09/10/18 at 13:00 Methadone HCl (Methadone Liq) 1 mg TID PO Last administered on 09/26/18 12:10; Admin Dose 1 MG; Start 09/11/18 at 21:00 Pantoprazole (Protonix Tab) 40 mg DAILY@06 PO Last administered on 09/26/18 06:08; Admin Dose 40 MG; Start 09/13/18 at 06:00 Alteplase, Recombinant (Cathflo (Activase)) 2 mg MAY REPEAT X1 PRN CATHETER IF CATHETER REMAINS OCCULUDED Last administered on 09/23/18 11:55; Admin Dose 2 MG; Start 09/19/18 at 01:30 Zinc Sulfate (Zinc Sulfate) 220 mg DAILY PO Last administered on 09/26/18 08:50; Admin Dose 220 MG; Start 09/20/18 at 09:00 Levofloxacin/ Dextrose 150 ml @ 100 mls/hr Q24H IVPB Last administered on 09/26/18 15:54; Admin Dose 100 MLS/HR; Start 09/22/18 at 15:00 Mupirocin (Bactroban) 1 applic TID TOP Last administered on 09/26/18 08:58; Admin Dose 1 APPLIC; Start 09/22/18 at 21:00; Stop 10/06/18 at 23:00 Hydromorphone HCl (Dilaudid) 2 mg Q6H PRN PO SEVERE PAIN LEVEL 7-10 Last administered on 09/26/18 16:24; Admin Dose 2 MG; Start 09/24/18 at 10:30 Hydromorphone HCl (Dilaudid) 1 mg Q8H PRN IV SEVERE PAIN LEVEL 7-10 Last administered on 09/26/18 14:24; Admin Dose 1 MG; Start 09/24/18 at 10:30 SULEMA WRIGHT Sep 26, 2018 10:11 pm
--- NOTE | 2018-09-26 23:11 | CONS ---
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 coli - h/o fungemia due to kaley glabrata, sensitive to fluconazole and to micafungin/caspofungin at [facility] - transthoracic echo on 09/04/2018 and 09/23/2018 had no mention on valvular vegetation pulm - persistent hemoptysis ?ectatic disease, pulmonary neuroendocrine tumor - Pt reports negative PPD at [facility] - WBC tagged scan on 09/24/2018 showed no signal of the chest - according to the microbiology report at [facility], Pt had ESBL+E. coli in her respiratory culture. Sputum cultures for AFB and fungi were negative at 8 weeks and at 4 weeks respectively at [facility] - Pt had negative bronchoscopy in 05/2018 at [facility], another at [facility] in 2018, and on 08/25/2018 at [facility] (no e/o bronchial airway bleeding according to Dr. Bello) - Numerous tiny lung nodules, increased in number from the chest CT dated May 22, 2018, with largest measuring 0.3 cm in the left apex, CT on 09/10/2018 indicated: stable bilateral micronodules dating back to examination of at least 01/29/2017; RLL fibrosis, CT on 09/22/2018 noted numerous small bilateral peripheral pulmonary nodules and scattered ground-glass opacities - Kaley albicans in sputum culture on 08/28/2018 and 09/21/2018, a colonizer - so far: aspergillus antibody not detected, HIV negative, coccidioidomycosis serology negative, TB Quant Gold negative, 1,3 beta d glucan negative, procalc 09/01/18 was 0.30; Sputum for O&P was negative, lung scan on 09/23/2018 had low prob of PE, GI - Delgado-colitis per CT 08/13/18 - S/p diarrhea on 09/06/18 - s/p EGD on 09/10/2018: no GI bleeding noted, reportedly completely normal - S/p sigmoidoscopy with biopsy 08/17/2018; path showed no e/o colitis or malignancy from transverse colon and rectum biopsies - S/p bloody diarrhea d/t Giardia; Pt took metronidazole for Giardia (08/14/2018-08/21/2018) in 07/2018. - H/o C diff toxin negative PCR positive status at [facility]. Took a course of Fidaxomyxin x 10 days. C. diff was negative on 08/14/2018 at [facility] - H/o cholecystectomy - Stool for O&P was negative 09/12/18 heme/oncology - recurrent DVT despite IVC filter: DVT of R proximal mid femoral veins, partial DVT of R distal femoral vein on [facility] 09/19/2018 - S/p CT guided bone marrow aspiration and biopsy 08/20/2018 - Microcytic anemia requiring PRBC d/t acute blood loss - Electrophoresis 08/19/18 showed: Evaluation suggests beta thalassemia trait with anemia. Iron deficiency must be ruled out. - H/o BUE and RLE DVT, s/p IVC filter in January 2018 - H/o Hodgkin lymphoma diagnosed in 2006 - H/o thyroid CA diagnosed in 2005, s/p resection, chemo and XRT - IVC filter placement - Patient reports that approximately 2 years ago (2016?) she had an abnormal mammogram of Left breast and that she was scheduled for a biopsy approximately 4 months ago but d/t insurance change did not receive the biopsy, on 09/13/18 patient reported brown drainage from left nipple x2 nights - +Family hx of cancer (father of stomach CA, mother of lymphoma, paternal uncle had breast CA and 12 yo daughter has h/o brain tumor s/p surgery and resulting blindness) , renal - recurrent UTI - h/o UTI due to ESBL+E. coli - S/p PO levofloxacin (08/24/2018-08/28/2018) for probable UTI other conditions - s/p a painful ulcer at frenulum, resolving. According to Pt, topical steroid would worsen the pain. HIV negative, RPR non reactive, herpes 1 and 2 by PCR not detected; s/p trial of PO valacyclovir (08/27/2018-09/01/2018) - s/p bilateral conjunctivitis - improved s/p Cipro eye drops (08/18/18-08/23/18) - myalgia with hemoptysis, CK level stable (<20 on 09/03/2018, 39 on 09/10/2018, and <20 on 09/17/2018) - Hypothyroidism - HLD - S/p hypokalemia - OA - depression/anxiety - H/o x2 - Allergy to PCN and vancomycin (reaction unknown) Previously Pt took: daptomycin (09/02/2018-09/17/2018, 09/19/2018-), cefepime (09/03/18 - 09/05/18), meropenem (09/19/2018-09/21/2018) Recommendations: - I recommend continuing levofloxacin (08/25/18-08/27/2018, 09/05/2018-09/18/2018, restart 09/22/2018-) as she was septic due to bacteremia. Suggested end date: 10/05/2018 management was d/w patient, her RN Consultation Date/Type/Reason Admit Date/Time Aug 13, 2018 at 17:22 Initial Consult Date 08/19/18 Type of Consult ID Requesting Provider: SHAQUILLE HARRIS Date/Time of Note DATE: 09/26/18 TIME: 23:08 24 HR Interval Summary Constitutional: poor po, requiring O2, other (not feeling well) Detailed Summary Eyes: no complaints ENT: no complaints Respiratory: shortness of breath, other (hemoptysis) Cardiovascular: no complaints Gastrointestinal: no complaints Genitourinary: other (vaginal itching) Musculoskeletal: other (diffuse myalgia) Skin: no complaints Exam/Review of Systems Exam Vitals Vital Signs Date Temp Pulse Resp B/P (MAP) Pulse Ox O2 O2 Flow FiO2 Time Delivery Rate 09/26/18 98.1 88 18 108/59 96 19:40 (75) 09/26/18 Room Air 14:29 Intake and Output 09/25/18 09/25/18 09/26/18 1414:59 22:59 06:59 IntakeIntake Total 1050 ml OutputOutput Total 50 ml 50 ml BalanceBalance -50 ml 1050 ml -50 ml Constitutional: frail Psych: other (flat affect) Head: normocephalic, atraumatic Eyes: nl conjunctiva, nl lids ENMT: nl external ears & nose, nl nasal mucosa & septum Neck: non-tender, other (not swollen) Respiratory: diminished breath sounds Cardiovascular: regular rate and rhythm, nl pulses, edema Extremities: edema Neurological: lethargic Skin: nl turgor; No rash or lesions Results Result Diagram: 09/25/1845 09/25/18 0645 Medications Medication Current Medications IV Flush (NS 3 ml) 3 ml PER PROTOCOL IV ; Start 08/13/18 at 20:00 Ondansetron HCl (Zofran Inj) 4 mg Q6H PRN IV NAUSEA AND/OR VOMITING Last administered on 09/13/18at 00:30; Admin Dose 4 MG; Start 08/13/18 at 20:00 Glucose (Glutose) 15 gm Q15M PRN PO DECREASED GLUCOSE; Start 08/17/18 at 10:30 Glucose (Glutose) 22.5 gm Q15M PRN PO DECREASED GLUCOSE; Start 08/17/18 at 10:30 Dextrose (D50w Syringe) 25 ml Q15M PRN IV DECREASED GLUCOSE; Start 08/17/18 at 10:30 Dextrose (D50w Syringe) 50 ml Q15M PRN IV DECREASED GLUCOSE; Start 08/17/18 at 10:30 Glucagon (Glucagen) 1 mg Q15M PRN IM DECREASED GLUCOSE; Start 08/17/18 at 10:30 Glucose (Glutose) 15 gm Q15M PRN BUCCAL DECREASED GLUCOSE; Start 08/17/18 at 10:30 Zolpidem Tartrate (Ambien) 10 mg QHS PRN PO INSOMNIA Last administered on 09/25/18at 20:07; Admin Dose 10 MG; Start 08/20/18 at 11:30 Phenol (Cepastat Lozenge) 1 lozenge Q1H PRN MT THROAT PAIN Last administered on 09/17/18at 10:37; Admin Dose 1 LOZENGE; Start 08/21/18 at 11:00 Acetaminophen (Tylenol Tab) 500 mg Q6H PRN PO MILD PAIN(1-3)OR ELEVATED TEMP Last administered on 09/25/18at 14:12; Admin Dose 500 MG; Start 09/01/18 at 18:30 Lidocaine (Xylocaine (Viscous)) 15 ml QID PRN PO Pain in the mouth; Start 09/02/18 at 10:30 Trazodone HCl (Desyrel) 50 mg BID PO Last administered on 09/26/18 08:50; Admin Dose 50 MG; Start 09/08/18 at 12:30 Lactobacillus Acidophilus/ Rhamnosus (Culturelle) 1 cap BID PO Last administered on 09/26/18 08:50; Admin Dose 1 CAP; Start 09/08/18 at 12:00 Promethazine HCl/ Codeine (Phenergan/ Codeine) 10 ml Q4H PRN PO COUGH Last administered on 09/26/18 17:43; Admin Dose 10 ML; Start 09/09/18 at 17:30 Cholecalciferol (Vitamin D) 2,000 unit DAILY PO Last administered on 09/26/18 08:50; Admin Dose 2,000 UNIT; Start 09/13/18 at 09:00 Diphenhydramine HCl (Benadryl) 50 mg Q4 PRN IV ITCHING Last administered on 09/26/18 22:36; Admin Dose 50 MG; Start 09/10/18 at 13:00 Levothyroxine Sodium (Synthroid) 50 mcg BEFORE BREAKFAST PO Last administered on 09/26/18 06:08; Admin Dose 50 MCG; Start 09/13/18 at 07:00 Lorazepam (Ativan) 2 mg Q6 PRN IV Anxiety Last administered on 09/26/18 17:43; Admin Dose 2 MG; Start 09/10/18 at 13:00 Methadone HCl (Methadone Liq) 1 mg TID PO Last administered on 09/26/18 12:10; Admin Dose 1 MG; Start 09/11/18 at 21:00 Pantoprazole (Protonix Tab) 40 mg DAILY@06 PO Last administered on 09/26/18 06:08; Admin Dose 40 MG; Start 09/13/18 at 06:00 Alteplase, Recombinant (Cathflo (Activase)) 2 mg MAY REPEAT X1 PRN CATHETER IF CATHETER REMAINS OCCULUDED Last administered on 09/23/18 11:55; Admin Dose 2 MG; Start 09/19/18 at 01:30 Zinc Sulfate (Zinc Sulfate) 220 mg DAILY PO Last administered on 09/26/18 08:50; Admin Dose 220 MG; Start 09/20/18 at 09:00 Levofloxacin/ Dextrose 150 ml @ 100 mls/hr Q24H IVPB Last administered on 09/26/18at 15:54; Admin Dose 100 MLS/HR; Start 09/22/18 at 15:00 Mupirocin (Bactroban) 1 applic TID TOP Last administered on 09/26/18 08:58; Admin Dose 1 APPLIC; Start 09/22/18 at 21:00; Stop 10/06/18 at 23:00 Hydromorphone HCl (Dilaudid) 2 mg Q6H PRN PO SEVERE PAIN LEVEL 7-10 Last administered on 09/26/18at 16:24; Admin Dose 2 MG; Start 09/24/18 at 10:30 Hydromorphone HCl (Dilaudid) 1 mg Q8H PRN IV SEVERE PAIN LEVEL 7-10 Last administered on 09/26/18at 22:36; Admin Dose 1 MG; Start 09/24/18 at 10:30 REGINA CARRASCO M.D. Sep 26, 2018 23:11
[2018-09-26] MEDS: ZOLPIDEM 5 MG TAB PO PRN (23:17)
[2018-09-27] MEDS: LORAZEPAM 2 MG INJ IV PRN ×4 (01:05→22:29)
[2018-09-27 02:05] VITALS: BP 109/55; PULSE 84; RESP 18
[2018-09-27] MEDS: DIPHENHYDRAMINE 50 MG INJ IV PRN ×5 (02:33→18:29)
[2018-09-27] MEDS: HYDROmorphONE 2 MG TAB PO PRN ×3 (02:36→21:06)
[2018-09-27] MEDS: PANTOPRAZOLE (EC) 40 MG TAB PO SCH (06:36)
[2018-09-27] MEDS: LEVOTHYROXINE 50 MCG TAB PO SCH (06:36)
[2018-09-27] MEDS: HYDROmorphONE 1 MG/ML SYG IV PRN ×3 (06:37→18:29)
[2018-09-27 07:49] VITALS: BP 85/47; PULSE 75; RESP 18
[2018-09-27 08:32] VITALS: BP 136/80; PULSE 86
[2018-09-27] MEDS: LACTOBACILLUS RHAMNOSUS CAP PO SCH ×2 (08:33→21:06)
[2018-09-27] MEDS: CHOLECALCIFEROL 2,000 UNIT CAP PO SCH (08:33)
[2018-09-27] MEDS: ZINC SULFATE 220 MG CAP PO SCH (08:33)
[2018-09-27] MEDS: METHADONE (1 MG/ML 5 ML PO UD SYG) PO SCH ×3 (08:35→21:06)
[2018-09-27] MEDS: PROMETHAZINE/CODEINE 5ML CUP PO PRN ×2 (08:35→13:35)
[2018-09-27] MEDS: MUPIROCIN 2% 22 GM OINT TOP SCH ×3 (08:42→21:00)
[2018-09-27] MEDS: traZODone 50 MG TAB PO SCH ×2 (10:34→21:06)
--- NOTE | 2018-09-27 11:47 | CONS ---
Consult Date/Type/Reason Admit Date/Time Aug 13, 2018 at 17:22 Initial Consult Date 08/19/18 Type of Consult Pulmonary Requesting Provider: SHAQUILLE HARRIS Date/Time of Note DATE: 09/27/18 TIME: 11:45 Subjective No significant changes. Remains stable. Objective Vital Signs Date Temp Pulse Resp B/P (MAP) Pulse Ox O2 O2 Flow FiO2 Time Delivery Rate 09/27/18 86 136/80 08:32 (98) 09/27/18 97.9 18 99 07:49 09/26/18 Room Air 14:29 Intake and Output 09/26/18 09/26/18 09/27/18 1515:00 23:00 07:00 IntakeIntake Total 1050 ml OutputOutput Total 10 ml BalanceBalance -10 ml 1050 ml Vent Setting Fraction of Inspired Oxygen pe: 21 Results/Medications Result Diagram: 09/27/18 0707 09/27/18 0707 Results 24 hrs Laboratory Tests Test 09/27/18 07:07 09/27/18 11:33 White Blood Count 4.2 L Red Blood Count 2.99 #L Hemoglobin 7.6 #L Hematocrit 24.1 #L Mean Corpuscular Volume 80.6 L Mean Corpuscular Hemoglobin 25.4 L Mean Corpuscular Hemoglobin Concent 31.5 L Red Cell Distribution Width 18.2 H Platelet Count 224 Mean Platelet Volume 10.5 H Immature Granulocytes % 1.000 H Neutrophils % 59.3 Lymphocytes % 24.0 Monocytes % 11.9 H Eosinophils % 3.1 Basophils % 0.7 Nucleated Red Blood Cells % 0.0 Immature Granulocytes # 0.040 H Neutrophils # 2.5 Lymphocytes # 1.0 Monocytes # 0.5 Eosinophils # 0.1 Basophils # 0.0 Nucleated Red Blood Cells # 0.0 Prothrombin Time 13.0 Prothrombin Time Ratio 1.0 INR International Normalized Ratio 0.97 Sodium Level 142 Potassium Level 3.8 Chloride Level 107 Carbon Dioxide Level 27 Anion Gap 8 Blood Urea Nitrogen 17 Creatinine 0.40 L Est Glomerular Filtrat Rate mL/min > 60 Glucose Level 93 Calcium Level 8.9 Phosphorus Level 4.5 Magnesium Level 1.9 Total Bilirubin 0.3 Direct Bilirubin 0.00 Indirect Bilirubin 0.3 Aspartate Amino Transf (AST/SGOT) 31 Alanine Aminotransferase (ALT/SGPT) 27 Alkaline Phosphatase 60 Total Protein 6.2 Albumin 3.4 Globulin 2.80 Albumin/Globulin Ratio 1.21 Lab Scanned Report REFERENCE LAB Medications Current Medications IV Flush (NS 3 ml) 3 ml PER PROTOCOL IV ; Start 08/13/18 at 20:00 Ondansetron HCl (Zofran Inj) 4 mg Q6H PRN IV NAUSEA AND/OR VOMITING Last administered on 09/13/18at 00:30; Admin Dose 4 MG; Start 08/13/18 at 20:00 Glucose (Glutose) 15 gm Q15M PRN PO DECREASED GLUCOSE; Start 08/17/18 at 10:30 Glucose (Glutose) 22.5 gm Q15M PRN PO DECREASED GLUCOSE; Start 08/17/18 at 10:30 Dextrose (D50w Syringe) 25 ml Q15M PRN IV DECREASED GLUCOSE; Start 08/17/18 at 10:30 Dextrose (D50w Syringe) 50 ml Q15M PRN IV DECREASED GLUCOSE; Start 08/17/18 at 10:30 Glucagon (Glucagen) 1 mg Q15M PRN IM DECREASED GLUCOSE; Start 08/17/18 at 10:30 Glucose (Glutose) 15 gm Q15M PRN BUCCAL DECREASED GLUCOSE; Start 08/17/18 at 10:30 Zolpidem Tartrate (Ambien) 10 mg QHS PRN PO INSOMNIA Last administered on 09/26/18at 23:17; Admin Dose 10 MG; Start 08/20/18 at 11:30 Phenol (Cepastat Lozenge) 1 lozenge Q1H PRN MT THROAT PAIN Last administered on 09/17/18at 10:37; Admin Dose 1 LOZENGE; Start 08/21/18 at 11:00 Acetaminophen (Tylenol Tab) 500 mg Q6H PRN PO MILD PAIN(1-3)OR ELEVATED TEMP Last administered on 09/25/18at 14:12; Admin Dose 500 MG; Start 09/01/18 at 18:30 Lidocaine (Xylocaine (Viscous)) 15 ml QID PRN PO Pain in the mouth; Start 09/02/18 at 10:30 Trazodone HCl (Desyrel) 50 mg BID PO Last administered on 09/27/18at 10:34; Admin Dose 50 MG; Start 09/08/18 at 12:30 Lactobacillus Acidophilus/ Rhamnosus (Culturelle) 1 cap BID PO Last administered on 09/27/18 08:33; Admin Dose 1 CAP; Start 09/08/18 at 12:00 Promethazine HCl/ Codeine (Phenergan/ Codeine) 10 ml Q4H PRN PO COUGH Last administered on 09/27/18 08:35; Admin Dose 10 ML; Start 09/09/18 at 17:30 Cholecalciferol (Vitamin D) 2,000 unit DAILY PO Last administered on 09/27/18 08:33; Admin Dose 2,000 UNIT; Start 09/13/18 at 09:00 Diphenhydramine HCl (Benadryl) 50 mg Q4 PRN IV ITCHING Last administered on 09/27/18 10:34; Admin Dose 50 MG; Start 09/10/18 at 13:00 Levothyroxine Sodium (Synthroid) 50 mcg BEFORE BREAKFAST PO Last administered on 09/27/18 06:36; Admin Dose 50 MCG; Start 09/13/18 at 07:00 Lorazepam (Ativan) 2 mg Q6 PRN IV Anxiety Last administered on 09/27/18 09:45; Admin Dose 2 MG; Start 09/10/18 at 13:00 Methadone HCl (Methadone Liq) 1 mg TID PO Last administered on 09/27/18 08:35; Admin Dose 1 MG; Start 09/11/18 at 21:00 Pantoprazole (Protonix Tab) 40 mg DAILY@06 PO Last administered on 09/27/18 06:36; Admin Dose 40 MG; Start 09/13/18 at 06:00 Alteplase, Recombinant (Cathflo (Activase)) 2 mg MAY REPEAT X1 PRN CATHETER IF CATHETER REMAINS OCCULUDED Last administered on 09/23/18 11:55; Admin Dose 2 MG; Start 09/19/18 at 01:30 Zinc Sulfate (Zinc Sulfate) 220 mg DAILY PO Last administered on 09/27/18 08:33; Admin Dose 220 MG; Start 09/20/18 at 09:00 Levofloxacin/ Dextrose 150 ml @ 100 mls/hr Q24H IVPB Last administered on 09/26/18 15:54; Admin Dose 100 MLS/HR; Start 09/22/18 at 15:00 Mupirocin (Bactroban) 1 applic TID TOP Last administered on 3/4/19at 08:42; Admin Dose 1 APPLIC; Start 09/22/18 at 21:00; Stop 10/06/18 at 23:00 Hydromorphone HCl (Dilaudid) 2 mg Q6H PRN PO SEVERE PAIN LEVEL 7-10 Last administered on 09/27/18at 02:36; Admin Dose 2 MG; Start 09/24/18 at 10:30 Hydromorphone HCl (Dilaudid) 1 mg Q8H PRN IV SEVERE PAIN LEVEL 7-10 Last administered on 09/27/18at 10:34; Admin Dose 1 MG; Start 09/24/18 at 10:30 Assessment/Plan Hospital Course (Demo Recall) IMP: 1. Persistent hemoptysis--CT chest notable for RLL lateral segment bronchiectasis as well as numerous peripheral micronodules. Etiology of hemoptysis may well be due to RLL ectatic disease vs. less likely 2/2 one of the micronodules which may represent DIPNECH/carcinoid tumorlets. RECS: 1. Will discuss possible bronchial artery angiography (RLL) with possible embolization, if blush noted on angio 2. Await transfer to [facility]. 3. We will explore possible transfer to [facility]her MARGE Mar MD, [facility] Sep 27, 2018 11:47
--- NOTE | 2018-09-27 12:19 | CONS ---
Assessment/Plan Assessment/Plan Hospital Course (Demo Recall) #Questionable h/o Lymphoma -patient states she was treated at [facility] however when we asked [facility] for records there is documentation of the patient ever being diagnosed or treated for lymphoma -pt told to bring in oncology records for our review -thus far there are no lesions that can be biopsied and it does not appear she has active cancer. 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 Pulmonary has noted the CT chest which demonstrates RLL lateral segment bronchiectasis as well as numerous peripheral micronodules. -pulmonary considering possible RLL bronchial artery angiography with possible embolization -pt awaiting transfer to tertiary care center #pancolitis -Colonoscopy on 08/17/2018 showed patchy colitis. bx was negative -Stool positive for Giardia- pt on vancomycin and flagyl Consultation Date/Type/Reason Admit Date/Time Aug 13, 2018 at 17:22 Initial Consult Date 08/19/18 Type of Consult oncology Reason for Consultation hemoptysis Requesting Provider: SHAQUILLE HARRIS Date/Time of Note DATE: 09/27/18 TIME: 12:15 24 HR Interval Summary Free Text/Dictation still having hemoptysis Exam/Review of Systems Exam Vitals Vital Signs Date Temp Pulse Resp B/P (MAP) Pulse Ox O2 O2 Flow FiO2 Time Delivery Rate 09/27/18 86 136/80 08:32 (98) 09/27/18 97.9 18 99 07:49 09/26/18 Room Air 14:29 Intake and Output 09/26/18 09/26/18 09/27/18 1515:00 23:00 07:00 IntakeIntake Total 1050 ml OutputOutput Total 10 ml BalanceBalance -10 ml 1050 ml Constitutional: alert, oriented Psych: no complaints, anxiety Head: normocephalic Eyes: nl conjunctiva ENMT: nl external ears & nose Neck: supple Respiratory: clear to auscultation Cardiovascular: regular rate and rhythm Gastrointestinal: soft Musculoskeletal: nl extremities to inspection Extremities: normal pulses Results Result Diagram: 09/27/18 0707 09/27/18 0707 Results 24hrs Laboratory Tests Test 09/27/18 07:07 09/27/18 11:33 White Blood Count 4.2 L Red Blood Count 2.99 #L Hemoglobin 7.6 #L Hematocrit 24.1 #L Mean Corpuscular Volume 80.6 L Mean Corpuscular Hemoglobin 25.4 L Mean Corpuscular Hemoglobin Concent 31.5 L Red Cell Distribution Width 18.2 H Platelet Count 224 Mean Platelet Volume 10.5 H Immature Granulocytes % 1.000 H Neutrophils % 59.3 Lymphocytes % 24.0 Monocytes % 11.9 H Eosinophils % 3.1 Basophils % 0.7 Nucleated Red Blood Cells % 0.0 Immature Granulocytes # 0.040 H Neutrophils # 2.5 Lymphocytes # 1.0 Monocytes # 0.5 Eosinophils # 0.1 Basophils # 0.0 Nucleated Red Blood Cells # 0.0 Prothrombin Time 13.0 Prothrombin Time Ratio 1.0 INR International Normalized Ratio 0.97 Sodium Level 142 Potassium Level 3.8 Chloride Level 107 Carbon Dioxide Level 27 Anion Gap 8 Blood Urea Nitrogen 17 Creatinine 0.40 L Est Glomerular Filtrat Rate mL/min > 60 Glucose Level 93 Calcium Level 8.9 Phosphorus Level 4.5 Magnesium Level 1.9 Total Bilirubin 0.3 Direct Bilirubin 0.00 Indirect Bilirubin 0.3 Aspartate Amino Transf (AST/SGOT) 31 Alanine Aminotransferase (ALT/SGPT) 27 Alkaline Phosphatase 60 Total Protein 6.2 Albumin 3.4 Globulin 2.80 Albumin/Globulin Ratio 1.21 Lab Scanned Report REFERENCE LAB Medications Medication Current Medications IV Flush (NS 3 ml) 3 ml PER PROTOCOL IV ; Start 08/13/18 at 20:00 Ondansetron HCl (Zofran Inj) 4 mg Q6H PRN IV NAUSEA AND/OR VOMITING Last administered on 09/13/18at 00:30; Admin Dose 4 MG; Start 08/13/18 at 20:00 Glucose (Glutose) 15 gm Q15M PRN PO DECREASED GLUCOSE; Start 08/17/18 at 10:30 Glucose (Glutose) 22.5 gm Q15M PRN PO DECREASED GLUCOSE; Start 08/17/18 at 10:30 Dextrose (D50w Syringe) 25 ml Q15M PRN IV DECREASED GLUCOSE; Start 08/17/18 at 10:30 Dextrose (D50w Syringe) 50 ml Q15M PRN IV DECREASED GLUCOSE; Start 08/17/18 at 10:30 Glucagon (Glucagen) 1 mg Q15M PRN IM DECREASED GLUCOSE; Start 08/17/18 at 10:30 Glucose (Glutose) 15 gm Q15M PRN BUCCAL DECREASED GLUCOSE; Start 08/17/18 at 10:30 Zolpidem Tartrate (Ambien) 10 mg QHS PRN PO INSOMNIA Last administered on 23:17; Admin Dose 10 MG; Start 08/20/18 at 11:30 Phenol (Cepastat Lozenge) 1 lozenge Q1H PRN MT THROAT PAIN Last administered on 09/17/18 10:37; Admin Dose 1 LOZENGE; Start 08/21/18 at 11:00 Acetaminophen (Tylenol Tab) 500 mg Q6H PRN PO MILD PAIN(1-3)OR ELEVATED TEMP Last administered on 09/25/18 14:12; Admin Dose 500 MG; Start 09/01/18 at 18:30 Lidocaine (Xylocaine (Viscous)) 15 ml QID PRN PO Pain in the mouth; Start 09/02/18 at 10:30 Trazodone HCl (Desyrel) 50 mg BID PO Last administered on 09/27/18 10:34; Admin Dose 50 MG; Start 09/08/18 at 12:30 Lactobacillus Acidophilus/ Rhamnosus (Culturelle) 1 cap BID PO Last administered on 09/27/18 08:33; Admin Dose 1 CAP; Start 09/08/18 at 12:00 Promethazine HCl/ Codeine (Phenergan/ Codeine) 10 ml Q4H PRN PO COUGH Last administered on 09/27/18 08:35; Admin Dose 10 ML; Start 09/09/18 at 17:30 Cholecalciferol (Vitamin D) 2,000 unit DAILY PO Last administered on 09/27/18 08:33; Admin Dose 2,000 UNIT; Start 09/13/18 at 09:00 Diphenhydramine HCl (Benadryl) 50 mg Q4 PRN IV ITCHING Last administered on 09/27/18 10:34; Admin Dose 50 MG; Start 09/10/18 at 13:00 Levothyroxine Sodium (Synthroid) 50 mcg BEFORE BREAKFAST PO Last administered on 09/27/18 06:36; Admin Dose 50 MCG; Start 09/13/18 at 07:00 Lorazepam (Ativan) 2 mg Q6 PRN IV Anxiety Last administered on 09/27/18 09:45; Admin Dose 2 MG; Start 09/10/18 at 13:00 Methadone HCl (Methadone Liq) 1 mg TID PO Last administered on 09/27/18 08:35; Admin Dose 1 MG; Start 09/11/18 at 21:00 Pantoprazole (Protonix Tab) 40 mg DAILY@06 PO Last administered on 09/27/18 06:36; Admin Dose 40 MG; Start 09/13/18 at 06:00 Alteplase, Recombinant (Cathflo (Activase)) 2 mg MAY REPEAT X1 PRN CATHETER IF CATHETER REMAINS OCCULUDED Last administered on 09/23/18 11:55; Admin Dose 2 MG; Start 09/19/18 at 01:30 Zinc Sulfate (Zinc Sulfate) 220 mg DAILY PO Last administered on 09/27/18 08: 33; Admin Dose 220 MG; Start 09/20/18 at 09:00 Levofloxacin/ Dextrose 150 ml @ 100 mls/hr Q24H IVPB Last administered on 09/26/18 15:54; Admin Dose 100 MLS/HR; Start 09/22/18 at 15:00 Mupirocin (Bactroban) 1 applic TID TOP Last administered on 09/27/18 08:42; Admin Dose 1 APPLIC; Start 09/22/18 at 21:00; Stop 10/06/18 at 23:00 Hydromorphone HCl (Dilaudid) 2 mg Q6H PRN PO SEVERE PAIN LEVEL 7-10 Last administered on 09/27/18 02:36; Admin Dose 2 MG; Start 09/24/18 at 10:30 Hydromorphone HCl (Dilaudid) 1 mg Q8H PRN IV SEVERE PAIN LEVEL 7-10 Last administered on 09/27/18 10:34; Admin Dose 1 MG; Start 09/24/18 at 10:30 XIOMARA GRACIA M.D. Sep 27, 2018 12:19
[2018-09-27 14:20] VITALS: BP 103/59; PULSE 89; RESP 18
[2018-09-27] MEDS: LEVOFLOXACIN 750MG/D5W (PMX) 150 ML IVPB SCH (14:25)
--- NOTE | 2018-09-27 15:52 | PN ---
Date/Time of Note Date/Time of Note DATE: 09/27/18 TIME: 15:50 Assessment/Plan VTE Prophylaxis Risk score (from Ns)>0 risk: 5 SCD applied (from [facility] [place] No SCD contraindicated: patient refusal Pharmacological prophylaxis: NA/contraindicated Pharm contraindication: bleeding Lines/Catheters IV Catheter Type (from [facility]): PICC Line Central line still needed: Yes Urinary Cath still in place: No Assessment/Plan Hospital Course SUBJECTIVE: Continues to have hemoptysis. OBJECTIVE: Physical Exam General: Adequately build 52 year-old female lying in bed in no apparent distress. HEENT: Normocephalic, atraumatic. Eyes: Anicteric sclerae, conjunctivae clear. ENT: Nasal septum midline, oral mucosa moist. Neck supple, no JVD noticed. Respiratory: Bilaterally clear breath sounds. No use of accessory muscles of respiration. No adventitious breath sounds. Cardiovascular: S1, S2 heard. No murmurs or gallops. Abdomen: Soft, nondistended, nontender. Bowel sounds positive in all 4 julio drants. Genitourinary: Deferred. Extremities: No cyanosis, no clubbing, no edema. Peripheral pulses palpable. Neurologic: Cranial nerves II through XII grossly intact. The patient is awake, alert, and oriented. Skin: Normal skin turgor. No skin rashes. 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 The patient's CT scan of the abdomen and pelvis was showing colitis involving the ascending, transverse, descending colon. The patient also had underlying leukocytosis and bandemia. Therefore, the patient was admitted to inpatient setting for further treatment and evaluation. 1. Acute pancolitis. -Stool studies showing Giardia. S/P Flagyl (last day 08/21/2018) -Being followed by gastroenterology and ID. -Colonoscopy on 08/17/2018 showed patchy colitis. 2. Fevers with coagulase-negative Staphylococcus bacteremia on 09/01/2018. -Stenotrophomonas maltophilia bacteremia on 09/03/2018. Stenotrophomonas maltophilia bacteremia on 09/19/2018 -Continue antimicrobials as per ID -2D echocardiogram negative for any cardiac vegetation. 3. 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 -No evidence or documented history of Hodgkin's lymphoma as per oncology. 4. History of PE. -Status post IVC filter placement. 5. Anemia. -Microcytic and hypochromic. -Monitor H&H closely. -Stool for OB x1 positive. 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 6. Chronic pain syndrome. -Pain management as per pain team. 7. Hyperglycemia. -Etiology unclear. -Hemoglobin A1c within normal limits although this could be the glycosylated hemoglobin from the transfused (donor) blood. -The patient was told by her primary care provider previously that she is borderline diabetic. -Started the patient on sliding scale insulin on 08/17/2018. -Stopped the patients insulin SSI on 08/21/2018 once the hyperglycemia was resolved. 8. Hemoptysis on 08/18/2018. -Being followed by Pulmonology. -S/P bronchoscopy on 08/24/2018 that was unremarkable. -S/P esophagogastroduodenoscopyX2 that showed no evidence of any gastrointestinal bleed. -Status post ENT evaluation along with laryngoscopy on 09/01/2018 with no evidence of any bleeding site history of hemoptysis. 9. Ulcer of the frenulum linguae. -Resolved. 10. DVT involving the right proximal mid femoral veins; partial DVT of the right distal femoral vein. -The patient is not a good candidate for anticoagulation because of the underlying anemia and hemoptysis. -The patient already has an IVC filter in place. 11. Fluids, electrolytes, and nutrition. -Regular diet. 12. DVT prophylaxis -Bilateral SCDs. 13. Plan. -Continue pain control. -Continue antimicrobials as per ID. -Await clinical improvement. -Awaiting to be transferred to a tertiary care facility for further evaluation of hemoptysis that is unexplained. The patient was seen in collaboration with Dr. Montes. Result Diagram: 09/27/18 0707 09/27/18 0707 Results 24hrs Laboratory Tests Test 09/27/18 07:07 09/27/18 11:33 White Blood Count 4.2 L Red Blood Count 2.99 #L Hemoglobin 7.6 #L Hematocrit 24.1 #L Mean Corpuscular Volume 80.6 L Mean Corpuscular Hemoglobin 25.4 L Mean Corpuscular Hemoglobin Concent 31.5 L Red Cell Distribution Width 18.2 H Platelet Count 224 Mean Platelet Volume 10.5 H Immature Granulocytes % 1.000 H Neutrophils % 59.3 Lymphocytes % 24.0 Monocytes % 11.9 H Eosinophils % 3.1 Basophils % 0.7 Nucleated Red Blood Cells % 0.0 Immature Granulocytes # 0.040 H Neutrophils # 2.5 Lymphocytes # 1.0 Monocytes # 0.5 Eosinophils # 0.1 Basophils # 0.0 Nucleated Red Blood Cells # 0.0 Prothrombin Time 13.0 Prothrombin Time Ratio 1.0 INR International Normalized Ratio 0.97 Sodium Level 142 Potassium Level 3.8 Chloride Level 107 Carbon Dioxide Level 27 Anion Gap 8 Blood Urea Nitrogen 17 Creatinine 0.40 L Est Glomerular Filtrat Rate mL/min > 60 Glucose Level 93 Calcium Level 8.9 Phosphorus Level 4.5 Magnesium Level 1.9 Total Bilirubin 0.3 Direct Bilirubin 0.00 Indirect Bilirubin 0.3 Aspartate Amino Transf (AST/SGOT) 31 Alanine Aminotransferase (ALT/SGPT) 27 Alkaline Phosphatase 60 Total Protein 6.2 Albumin 3.4 Globulin 2.80 Albumin/Globulin Ratio 1.21 Lab Scanned Report REFERENCE LAB Exam/Review of Systems Exam Vitals Vital Signs Date Temp Pulse Resp B/P (MAP) Pulse Ox O2 O2 Flow FiO2 Time Delivery Rate 09/27/18 97.4 89 18 103/59 99 Room Air 14:20 (74) Intake and Output 09/26/18 09/26/18 09/27/18 1515:00 23:00 07:00 IntakeIntake Total 1050 ml OutputOutput Total 10 ml BalanceBalance -10 ml 1050 ml Results Results 24hrs Laboratory Tests Test 09/27/18 07:07 09/27/18 11:33 White Blood Count 4.2 L Red Blood Count 2.99 #L Hemoglobin 7.6 #L Hematocrit 24.1 #L Mean Corpuscular Volume 80.6 L Mean Corpuscular Hemoglobin 25.4 L Mean Corpuscular Hemoglobin Concent 31.5 L Red Cell Distribution Width 18.2 H Platelet Count 224 Mean Platelet Volume 10.5 H Immature Granulocytes % 1.000 H Neutrophils % 59.3 Lymphocytes % 24.0 Monocytes % 11.9 H Eosinophils % 3.1 Basophils % 0.7 Nucleated Red Blood Cells % 0.0 Immature Granulocytes # 0.040 H Neutrophils # 2.5 Lymphocytes # 1.0 Monocytes # 0.5 Eosinophils # 0.1 Basophils # 0.0 Nucleated Red Blood Cells # 0.0 Prothrombin Time 13.0 Prothrombin Time Ratio 1.0 INR International Normalized Ratio 0.97 Sodium Level 142 Potassium Level 3.8 Chloride Level 107 Carbon Dioxide Level 27 Anion Gap 8 Blood Urea Nitrogen 17 Creatinine 0.40 L Est Glomerular Filtrat Rate mL/min > 60 Glucose Level 93 Calcium Level 8.9 Phosphorus Level 4.5 Magnesium Level 1.9 Total Bilirubin 0.3 Direct Bilirubin 0.00 Indirect Bilirubin 0.3 Aspartate Amino Transf (AST/SGOT) 31 Alanine Aminotransferase (ALT/SGPT) 27 Alkaline Phosphatase 60 Total Protein 6.2 Albumin 3.4 Globulin 2.80 Albumin/Globulin Ratio 1.21 Lab Scanned Report REFERENCE LAB Medications Medication Current Medications IV Flush (NS 3 ml) 3 ml PER PROTOCOL IV ; Start 08/13/18 at 20:00 Ondansetron HCl (Zofran Inj) 4 mg Q6H PRN IV NAUSEA AND/OR VOMITING Last administered on 09/13/18at 00:30; Admin Dose 4 MG; Start 08/13/18 at 20:00 Glucose (Glutose) 15 gm Q15M PRN PO DECREASED GLUCOSE; Start 08/17/18 at 10:30 Glucose (Glutose) 22.5 gm Q15M PRN PO DECREASED GLUCOSE; Start 08/17/18 at 1 0:30 Dextrose (D50w Syringe) 25 ml Q15M PRN IV DECREASED GLUCOSE; Start 08/17/18 at 10:30 Dextrose (D50w Syringe) 50 ml Q15M PRN IV DECREASED GLUCOSE; Start 08/17/18 at 10:30 Glucagon (Glucagen) 1 mg Q15M PRN IM DECREASED GLUCOSE; Start 08/17/18 at 10:30 Glucose (Glutose) 15 gm Q15M PRN BUCCAL DECREASED GLUCOSE; Start 08/17/18 at 10:30 Zolpidem Tartrate (Ambien) 10 mg QHS PRN PO INSOMNIA Last administered on 09/26/18at 23:17; Admin Dose 10 MG; Start 08/20/18 at 11:30 Phenol (Cepastat Lozenge) 1 lozenge Q1H PRN MT THROAT PAIN Last administered on 09/17/18at 10:37; Admin Dose 1 LOZENGE; Start 08/21/18 at 11:00 Acetaminophen (Tylenol Tab) 500 mg Q6H PRN PO MILD PAIN(1-3)OR ELEVATED TEMP Last administered on 09/25/18 14:12; Admin Dose 500 MG; Start 09/01/18 at 18:30 Lidocaine (Xylocaine (Viscous)) 15 ml QID PRN PO Pain in the mouth; Start 09/02/18 at 10:30 Trazodone HCl (Desyrel) 50 mg BID PO Last administered on 09/27/18 10:34; Admin Dose 50 MG; Start 09/08/18 at 12:30 Lactobacillus Acidophilus/ Rhamnosus (Culturelle) 1 cap BID PO Last administered on 09/27/18 08:33; Admin Dose 1 CAP; Start 09/08/18 at 12:00 Promethazine HCl/ Codeine (Phenergan/ Codeine) 10 ml Q4H PRN PO COUGH Last administered on 09/27/18 13:35; Admin Dose 10 ML; Start 09/09/18 at 17:30 Cholecalciferol (Vitamin D) 2,000 unit DAILY PO Last administered on 09/27/18 08:33; Admin Dose 2,000 UNIT; Start 09/13/18 at 09:00 Diphenhydramine HCl (Benadryl) 50 mg Q4 PRN IV ITCHING Last administered on 09/27/18 14:37; Admin Dose 50 MG; Start 09/10/18 at 13:00 Levothyroxine Sodium (Synthroid) 50 mcg BEFORE BREAKFAST PO Last administered on 09/27/18 06:36; Admin Dose 50 MCG; Start 09/13/18 at 07:00 Lorazepam (Ativan) 2 mg Q6 PRN IV Anxiety Last administered on 09/27/18 09:45; Admin Dose 2 MG; Start 09/10/18 at 13:00 Methadone HCl (Methadone Liq) 1 mg TID PO Last administered on 09/27/18 12:13; Admin Dose 1 MG; Start 09/11/18 at 21:00 Pantoprazole (Protonix Tab) 40 mg DAILY@06 PO Last administered on 09/27/18 06:36; Admin Dose 40 MG; Start 09/13/18 at 06:00 Alteplase, Recombinant (Cathflo (Activase)) 2 mg MAY REPEAT X1 PRN CATHETER IF CATHETER REMAINS OCCULUDED Last administered on 09/23/18 11:55; Admin Dose 2 MG; Start 09/19/18 at 01:30 Zinc Sulfate (Zinc Sulfate) 220 mg DAILY PO Last administered on 09/27/18 08:33; Admin Dose 220 MG; Start 09/20/18 at 09:00 Levofloxacin/ Dextrose 150 ml @ 100 mls/hr Q24H IVPB Last administered on 09/27/18 14:25; Admin Dose 100 MLS/HR; Start 09/22/18 at 15:00 Mupirocin (Bactroban) 1 applic TID TOP Last administered on 09/27/18 12:14; Admin Dose 1 APPLIC; Start 09/22/18 at 21:00; Stop 10/06/18 at 23:00 Hydromorphone HCl (Dilaudid) 2 mg Q6H PRN PO SEVERE PAIN LEVEL 7-10 Last administered on 09/27/18 13:36; Admin Dose 2 MG; Start 09/24/18 at 10:30 Hydromorphone HCl (Dilaudid) 1 mg Q8H PRN IV SEVERE PAIN LEVEL 7-10 Last administered on 09/27/18 10:34; Admin Dose 1 MG; Start 09/24/18 at 10:30 SUZANNE STEVENSON NP Sep 27, 2018 15:52
--- NOTE | 2018-09-27 19:11 | CONS ---
Assessment/Plan Assessment/Plan Hospital Course (Demo Recall) sepsis, endovascular infection - recurrent sepsis 09/19/2018 due to bacteremia - recurrent bacteremia due to stenotrophomonas - s/p bacteremia d/t Coag Neg Staph and Stenotrophomonas maltophilia on 09/01/2018 and 09/02/2018; took daptomycin and levofloxacin - h/o "bacteremia due to enterococci" according to progress notes at [facility], but the actual microbiology report indicated blood culture was positive for ESBL+E. coli - h/o fungemia due to kaley glabrata, sensitive to fluconazole and to micafungin/caspofungin at [facility] - transthoracic echo on 09/04/2018 and 09/23/2018 had no mention on valvular vegetation pulm - persistent hemoptysis ?ectatic disease, pulmonary neuroendocrine tumor - Pt reports negative PPD at [facility] - WBC tagged scan on 09/24/2018 showed no signal of the chest - according to the microbiology report at [facility], Pt had ESBL+E. coli in her respiratory culture. Sputum cultures for AFB and fungi were negative at 8 weeks and at 4 weeks respectively at [facility] - Pt had negative bronchoscopy in 05/2018 at [facility], another at [facility] in 2018, and on 08/25/2018 at [facility] (no e/o bronchial airway bleeding according to Dr. Bello) - Numerous tiny lung nodules, increased in number from the chest CT dated May 22, 2018, with largest measuring 0.3 cm in the left apex, CT on 09/10/2018 indicated: stable bilateral micronodules dating back to examination of at least 01/29/2017; RLL fibrosis, CT on 09/22/2018 noted numerous small bilateral peripheral pulmonary nodules and scattered ground-glass opacities - Kaley albicans in sputum culture on 08/28/2018 and 09/21/2018, a colonizer - so far: aspergillus antibody not detected, HIV negative, coccidioidomycosis serology negative, TB Quant Gold negative, 1,3 beta d glucan negative, procalc 09/01/18 was 0.30; Sputum for O&P was negative, lung scan on 09/23/2018 had low prob of PE, GI - Delgado-colitis per CT 08/13/18 - S/p diarrhea on 09/06/18 - s/p EGD on 09/10/2018: no GI bleeding noted, reportedly completely normal - S/p sigmoidoscopy with biopsy 08/17/2018; path showed no e/o colitis or malignancy from transverse colon and rectum biopsies - S/p bloody diarrhea d/t Giardia; Pt took metronidazole for Giardia (08/14/2018-08/21/2018) in 07/2018. - H/o C diff toxin negative PCR positive status at [facility]. Took a course of Fidaxomyxin x 10 days. C. 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 Iron deficiency must be ruled out. - H/o BUE and RLE DVT, s/p IVC filter in January 2018 - H/o Hodgkin lymphoma diagnosed in 2006 - H/o thyroid CA diagnosed in 2005, s/p resection, chemo and XRT - IVC filter placement - Patient reports that approximately 2 years ago (2016?) she had an abnormal mammogram of Left breast and that she was scheduled for a biopsy approximately 4 months ago but d/t insurance change did not receive the biopsy, on 09/13/18 patient reported brown drainage from left nipple x2 nights - +Family hx of cancer (father of stomach CA, mother of lymphoma, paternal uncle had breast CA and 12 yo daughter has h/o brain tumor s/p surgery and resulting blindness) , renal - recurrent UTI - h/o UTI due to ESBL+E. coli - S/p PO levofloxacin (08/24/2018-08/28/2018) for probable UTI other conditions - s/p a painful ulcer at frenulum, resolving. According to Pt, topical steroid would worsen the pain. HIV negative, RPR non reactive, herpes 1 and 2 by PCR not detected; s/p trial of PO valacyclovir (08/27/2018-09/01/2018) - s/p bilateral conjunctivitis - improved s/p Cipro eye drops (08/18/18-08/23/18) - myalgia with hemoptysis, CK level stable (<20 on 09/03/2018, 39 on 09/10/2018, and <20 on 09/17/2018) - Hypothyroidism - HLD - S/p hypokalemia - OA - depression/anxiety - H/o x2 - Allergy to PCN and vancomycin (reaction unknown) Previously Pt took: daptomycin (09/02/2018-09/17/2018, 09/19/2018-), cefepime (09/03/18 - 09/05/18), meropenem (09/19/2018-09/21/2018) Recommendations: - I recommend continuing levofloxacin (08/25/18-08/27/2018, 09/05/2018-09/18/2018, restart 09/22/2018-) as she was septic due to bacteremia. Suggested end date: 10/05/2018 management was d/w patient Consultation Date/Type/Reason Admit Date/Time Aug 13, 2018 at 17:22 Initial Consult Date 08/19/18 Type of Consult ID Requesting Provider: SHAQUILLE HARRIS Date/Time of Note DATE: 09/27/18 TIME: 19:10 24 HR Interval Summary Constitutional: poor po, other (weak) Detailed Summary Eyes: no complaints ENT: no complaints Respiratory: other (+hemoptysis) Cardiovascular: no complaints Gastrointestinal: no complaints Genitourinary: no complaints Musculoskeletal: other (myalgia) Skin: no complaints Neurologic: other (weak) Exam/Review of Systems Exam Vitals Vital Signs Date Temp Pulse Resp B/P (MAP) Pulse Ox O2 O2 Flow FiO2 Time Delivery Rate 09/27/18 97.4 89 18 103/59 99 Room Air 14:20 (74) Intake and Output 09/26/18 09/26/18 09/27/18 1515:00 23:00 07:00 IntakeIntake Total 1050 ml OutputOutput Total 10 ml BalanceBalance -10 ml 1050 ml Constitutional: frail Psych: no complaints, nl mood/affect Head: normocephalic, atraumatic Eyes: nl conjunctiva, nl lids ENMT: nl external ears & nose, nl nasal mucosa & septum Neck: supple, other (not swollen) Respiratory: other (normal resp effort) Cardiovascular: No edema Musculoskeletal: nl extremities to inspection Extremities: No edema Neurological: other (debiliated) Skin: nl turgor; No rash or lesions Results Result Diagram: 09/27/18 0707 09/27/18 0707 Results 24hrs Laboratory Tests Test 09/27/18 07:07 09/27/18 11:33 White Blood Count 4.2 L Red Blood Count 2.99 #L Hemoglobin 7.6 #L Hematocrit 24.1 #L Mean Corpuscular Volume 80.6 L Mean Corpuscular Hemoglobin 25.4 L Mean Corpuscular Hemoglobin Concent 31.5 L Red Cell Distribution Width 18.2 H Platelet Count 224 Mean Platelet Volume 10.5 H Immature Granulocytes % 1.000 H Neutrophils % 59.3 Lymphocytes % 24.0 Monocytes % 11.9 H Eosinophils % 3.1 Basophils % 0.7 Nucleated Red Blood Cells % 0.0 Immature Granulocytes # 0.040 H Neutrophils # 2.5 Lymphocytes # 1.0 Monocytes # 0.5 Eosinophils # 0.1 Basophils # 0.0 Nucleated Red Blood Cells # 0.0 Prothrombin Time 13.0 Prothrombin Time Ratio 1.0 INR International Normalized Ratio 0.97 Sodium Level 142 Potassium Level 3.8 Chloride Level 107 Carbon Dioxide Level 27 Anion Gap 8 Blood Urea Nitrogen 17 Creatinine 0.40 L Est Glomerular Filtrat Rate mL/min > 60 Glucose Level 93 Calcium Level 8.9 Phosphorus Level 4.5 Magnesium Level 1.9 Total Bilirubin 0.3 Direct Bilirubin 0.00 Indirect Bilirubin 0.3 Aspartate Amino Transf (AST/SGOT) 31 Alanine Aminotransferase (ALT/SGPT) 27 Alkaline Phosphatase 60 Total Protein 6.2 Albumin 3.4 Globulin 2.80 Albumin/Globulin Ratio 1.21 Lab Scanned Report REFERENCE LAB Medications Medication Current Medications IV Flush (NS 3 ml) 3 ml PER PROTOCOL IV ; Start 08/13/18 at 20:00 Ondansetron HCl (Zofran Inj) 4 mg Q6H PRN IV NAUSEA AND/OR VOMITING Last administered on 09/13/18at 00:30; Admin Dose 4 MG; Start 08/13/18 at 20:00 Glucose (Glutose) 15 gm Q15M PRN PO DECREASED GLUCOSE; Start 08/17/18 at 10:30 Glucose (Glutose) 22.5 gm Q15M PRN PO DECREASED GLUCOSE; Start 08/17/18 at 1 0:30 Dextrose (D50w Syringe) 25 ml Q15M PRN IV DECREASED GLUCOSE; Start 08/17/18 at 10:30 Dextrose (D50w Syringe) 50 ml Q15M PRN IV DECREASED GLUCOSE; Start 08/17/18 at 10:30 Glucagon (Glucagen) 1 mg Q15M PRN IM DECREASED GLUCOSE; Start 08/17/18 at 10:30 Glucose (Glutose) 15 gm Q15M PRN BUCCAL DECREASED GLUCOSE; Start 08/17/18 at 10:30 Zolpidem Tartrate (Ambien) 10 mg QHS PRN PO INSOMNIA Last administered on 09/26/18 23:17; Admin Dose 10 MG; Start 08/20/18 at 11:30 Phenol (Cepastat Lozenge) 1 lozenge Q1H PRN MT THROAT PAIN Last administered on 09/17/18 10:37; Admin Dose 1 LOZENGE; Start 08/21/18 at 11:00 Acetaminophen (Tylenol Tab) 500 mg Q6H PRN PO MILD PAIN(1-3)OR ELEVATED TEMP Last administered on 09/25/18 14:12; Admin Dose 500 MG; Start 09/01/18 at 18:30 Lidocaine (Xylocaine (Viscous)) 15 ml QID PRN PO Pain in the mouth; Start 09/02/18 at 10:30 Trazodone HCl (Desyrel) 50 mg BID PO Last administered on 09/27/18 10:34; Admin Dose 50 MG; Start 09/08/18 at 12:30 Lactobacillus Acidophilus/ Rhamnosus (Culturelle) 1 cap BID PO Last administered on 09/27/18 08:33; Admin Dose 1 CAP; Start 09/08/18 at 12:00 Promethazine HCl/ Codeine (Phenergan/ Codeine) 10 ml Q4H PRN PO COUGH Last administered on 09/27/18 13:35; Admin Dose 10 ML; Start 09/09/18 at 17:30 Cholecalciferol (Vitamin D) 2,000 unit DAILY PO Last administered on 09/27/18 08:33; Admin Dose 2,000 UNIT; Start 09/13/18 at 09:00 Diphenhydramine HCl (Benadryl) 50 mg Q4 PRN IV ITCHING Last administered on 09/27/18 14:37; Admin Dose 50 MG; Start 09/10/18 at 13:00 Levothyroxine Sodium (Synthroid) 50 mcg BEFORE BREAKFAST PO Last administered on 09/27/18 06:36; Admin Dose 50 MCG; Start 09/13/18 at 07:00 Lorazepam (Ativan) 2 mg Q6 PRN IV Anxiety Last administered on 09/27/18 16:43; Admin Dose 2 MG; Start 09/10/18 at 13:00 Methadone HCl (Methadone Liq) 1 mg TID PO Last administered on 09/27/18 12:13; Admin Dose 1 MG; Start 09/11/18 at 21:00 Pantoprazole (Protonix Tab) 40 mg DAILY@06 PO Last administered on 09/27/18 06:36; Admin Dose 40 MG; Start 09/13/18 at 06:00 Alteplase, Recombinant (Cathflo (Activase)) 2 mg MAY REPEAT X1 PRN CATHETER IF CATHETER REMAINS OCCULUDED Last administered on 09/23/18 11:55; Admin Dose 2 MG; Start 09/19/18 at 01:30 Zinc Sulfate (Zinc Sulfate) 220 mg DAILY PO Last administered on 09/27/18 08:33; Admin Dose 220 MG; Start 09/20/18 at 09:00 Levofloxacin/ Dextrose 150 ml @ 100 mls/hr Q24H IVPB Last administered on 09/27/18 14:25; Admin Dose 100 MLS/HR; Start 09/22/18 at 15:00 Mupirocin (Bactroban) 1 applic TID TOP Last administered on 09/27/18 12:14; Admin Dose 1 APPLIC; Start 09/22/18 at 21:00; Stop 10/06/18 at 23:00 Hydromorphone HCl (Dilaudid) 2 mg Q6H PRN PO SEVERE PAIN LEVEL 7-10 Last administered on 09/27/18 13:36; Admin Dose 2 MG; Start 09/24/18 at 10:30 Hydromorphone HCl (Dilaudid) 1 mg Q8H PRN IV SEVERE PAIN LEVEL 7-10 Last administered on 09/27/18 10:34; Admin Dose 1 MG; Start 09/24/18 at 10:30 REGINA CARRASCO M.D. Sep 27, 2018 19:11
[2018-09-27 19:51] VITALS: BP 144/63; PULSE 87; RESP 18
[2018-09-27] MEDS ORDERED: ZOLPIDEM 5 MG TAB PO PRN (20:00)
[2018-09-27] MEDS: HYDROCODONE/HOMATROPINE 5ML CUP PO SCH (21:31)
[2018-09-27] MEDS ORDERED: HYDROmorphONE 0.5 MG/0.5 ML SYG IV STA (23:11)
[2018-09-28] MEDS: DIPHENHYDRAMINE 50 MG INJ IV PRN ×5 (02:30→22:42)
[2018-09-28] MEDS: HYDROmorphONE 1 MG/ML SYG IV PRN ×3 (02:31→18:45)
[2018-09-28 02:33] VITALS: BP 124/88; PULSE 99; RESP 18
[2018-09-28] MEDS: LORAZEPAM 2 MG INJ IV PRN ×3 (04:33→17:43)
--- NOTE | 2018-09-28 05:39 | PN ---
Date/Time of Note Date/Time of Note DATE: 09/28/18 TIME: 05:38 Assessment/Plan VTE Prophylaxis Risk score (from N[place])>0 risk: 5 [place] [facility] [place] contraindicated: other Pharmacological prophylaxis: NA/contraindicated Pharm contraindication: bleeding Lines/Catheters IV [facility]ter Type (from [facility] PICC Line Central line still needed: Yes Urinary Cath still in place: No Assessment/Plan Hospital Course SUBJECTIVE: Continues to have hemoptysis. OBJECTIVE: Physical Exam General: Adequately build 52 year-old female lying in bed in no apparent distress. HEENT: Normocephalic, atraumatic. Eyes: Anicteric sclerae, conjunctivae clear. ENT: Nasal septum midline, oral mucosa moist. Neck supple, no JVD noticed. Respiratory: Bilaterally clear breath sounds. No use of accessory muscles of respiration. No adventitious breath sounds. Cardiovascular: S1, S2 heard. No murmurs or gallops. Abdomen: Soft, nondistended, nontender. Bowel sounds positive in all 4 quadrants. Genitourinary: Deferred. Extremities: No cyanosis, no clubbing, no edema. Peripheral pulses palpable. Neurologic: Cranial nerves II through XII grossly intact. The patient is awake, alert, and oriented. Skin: Normal skin turgor. No skin rashes. 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 The patient's CT scan of the abdomen and pelvis was showing colitis involving the ascending, transverse, descending colon. The patient also had underlying leukocytosis and bandemia. Therefore, the patient was admitted to inpatient setting for further treatment and evaluation. 1. Acute pancolitis. -Stool studies showing Giardia. S/P Flagyl (last day 08/21/2018) -Being followed by gastroenterology and ID. -Colonoscopy on 08/17/2018 showed patchy colitis. 2. Fevers with coagulase-negative Staphylococcus bacteremia on 09/01/2018. - Stenotrophomonas maltophilia bacteremia on 09/03/2018. Stenotrophomonas maltophilia bacteremia on 09/19/2018 -Continue antimicrobials as per ID -2D echocardiogram negative for any cardiac vegetation. 3. 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 -No evidence or documented history of Hodgkin's lymphoma as per oncology. 4. History of PE. -Status post IVC filter placement. 5. Anemia. -Microcytic and hypochromic. -Monitor H&H closely. -Stool for OB x1 positive. 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 6. Chronic pain syndrome. -Pain management as per pain team. 7. Hyperglycemia. -Etiology unclear. -Hemoglobin A1c within normal limits although this could be the glycosylated hemoglobin from the transfused (donor) blood. -The patient was told by her primary care provider previously that she is borderline diabetic. -Started the patient on sliding scale insulin on 08/17/2018. -Stopped the patients insulin SSI on 08/21/2018 once the hyperglycemia was resolved. 8. Hemoptysis on 08/18/2018. -Being followed by Pulmonology. -S/P bronchoscopy on 08/24/2018 that was unremarkable. -S/P esophagogastroduodenoscopyX2 that showed no evidence of any gastrointestinal bleed. -Status post ENT evaluation along with laryngoscopy on 09/01/2018 with no evidence of any bleeding site history of hemoptysis. 9. Ulcer of the frenulum linguae. -Resolved. 10. DVT involving the right proximal mid femoral veins; partial DVT of the right distal femoral vein. -The patient is not a good candidate for anticoagulation because of the underlying anemia and hemoptysis. -The patient already has an IVC filter in place. 11. Fluids, electrolytes, and nutrition. -Regular diet. 12. DVT prophylaxis -Bilateral SCDs. 13. Plan. -Continue pain control. -Continue antimicrobials as per ID. -Await clinical improvement. -Awaiting to be transferred to a tertiary care facility for further evaluation of hemoptysis that is unexplained. The patient was seen in collaboration with Dr. Montes. Result Diagram: 09/27/18 0707 09/27/18 0707 Results 24hrs Laboratory Tests Test 09/27/18 07:07 09/27/18 11:33 White Blood Count 4.2 L Red Blood Count 2.99 #L Hemoglobin 7.6 #L Hematocrit 24.1 #L Mean Corpuscular Volume 80.6 L Mean Corpuscular Hemoglobin 25.4 L Mean Corpuscular Hemoglobin Concent 31.5 L Red Cell Distribution Width 18.2 H Platelet Count 224 Mean Platelet Volume 10.5 H Immature Granulocytes % 1.000 H Neutrophils % 59.3 Lymphocytes % 24.0 Monocytes % 11.9 H Eosinophils % 3.1 Basophils % 0.7 Nucleated Red Blood Cells % 0.0 Immature Granulocytes # 0.040 H Neutrophils # 2.5 Lymphocytes # 1.0 Monocytes # 0.5 Eosinophils # 0.1 Basophils # 0.0 Nucleated Red Blood Cells # 0.0 Prothrombin Time 13.0 Prothrombin Time Ratio 1.0 INR International Normalized Ratio 0.97 Sodium Level 142 Potassium Level 3.8 Chloride Level 107 Carbon Dioxide Level 27 Anion Gap 8 Blood Urea Nitrogen 17 Creatinine 0.40 L Est Glomerular Filtrat Rate mL/min > 60 Glucose Level 93 Calcium Level 8.9 Phosphorus Level 4.5 Magnesium Level 1.9 Total Bilirubin 0.3 Direct Bilirubin 0.00 Indirect Bilirubin 0.3 Aspartate Amino Transf (AST/SGOT) 31 Alanine Aminotransferase (ALT/SGPT) 27 Alkaline Phosphatase 60 Total Protein 6.2 Albumin 3.4 Globulin 2.80 Albumin/Globulin Ratio 1.21 Lab Scanned Report REFERENCE LAB Exam/Review of Systems Exam Vitals Vital Signs Date Temp Pulse Resp B/P (MAP) Pulse Ox O2 O2 Flow FiO2 Time Delivery Rate 09/28/18 97.7 99 18 124/88 99 02:33 (100) 09/27/18 Room Air 14:20 Intake and Output 09/27/18 09/27/18 09/28/18 1515:00 23:00 07:00 IntakeIntake Total 150 ml OutputOutput Total 100 ml 150 ml BalanceBalance -100 ml 0 ml Results Results 24hrs Laboratory Tests Test 09/27/18 07:07 09/27/18 11:33 White Blood Count 4.2 L Red Blood Count 2.99 #L Hemoglobin 7.6 #L Hematocrit 24.1 #L Mean Corpuscular Volume 80.6 L Mean Corpuscular Hemoglobin 25.4 L Mean Corpuscular Hemoglobin Concent 31.5 L Red Cell Distribution Width 18.2 H Platelet Count 224 Mean Platelet Volume 10.5 H Immature Granulocytes % 1.000 H Neutrophils % 59.3 Lymphocytes % 24.0 Monocytes % 11.9 H Eosinophils % 3.1 Basophils % 0.7 Nucleated Red Blood Cells % 0.0 Immature Granulocytes # 0.040 H Neutrophils # 2.5 Lymphocytes # 1.0 Monocytes # 0.5 Eosinophils # 0.1 Basophils # 0.0 Nucleated Red Blood Cells # 0.0 Prothrombin Time 13.0 Prothrombin Time Ratio 1.0 INR International Normalized Ratio 0.97 Sodium Level 142 Potassium Level 3.8 Chloride Level 107 Carbon Dioxide Level 27 Anion Gap 8 Blood Urea Nitrogen 17 Creatinine 0.40 L Est Glomerular Filtrat Rate mL/min > 60 Glucose Level 93 Calcium Level 8.9 Phosphorus Level 4.5 Magnesium Level 1.9 Total Bilirubin 0.3 Direct Bilirubin 0.00 Indirect Bilirubin 0.3 Aspartate Amino Transf (AST/SGOT) 31 Alanine Aminotransferase (ALT/SGPT) 27 Alkaline Phosphatase 60 Total Protein 6.2 Albumin 3.4 Globulin 2.80 Albumin/Globulin Ratio 1.21 Lab Scanned Report REFERENCE LAB Medications Medication Current Medications IV Flush (NS 3 ml) 3 ml PER PROTOCOL IV ; Start 08/13/18 at 20:00 Ondansetron HCl (Zofran Inj) 4 mg Q6H PRN IV NAUSEA AND/OR VOMITING Last administered on 09/13/18at 00:30; Admin Dose 4 MG; Start 08/13/18 at 20:00 Glucose (Glutose) 15 gm Q15M PRN PO DECREASED GLUCOSE; Start 08/17/18 at 10:30 Glucose (Glutose) 22.5 gm Q15M PRN PO DECREASED GLUCOSE; Start 08/17/18 at 10:30 Dextrose (D50w Syringe) 25 ml Q15M PRN IV DECREASED GLUCOSE; Start 08/17/18 at 10:30 Dextrose (D50w Syringe) 50 ml Q15M PRN IV DECREASED GLUCOSE; Start 08/17/18 at 10:30 Glucagon (Glucagen) 1 mg Q15M PRN IM DECREASED GLUCOSE; Start 08/17/18 at 10:30 Glucose (Glutose) 15 gm Q15M PRN BUCCAL DECREASED GLUCOSE; Start 08/17/18 at 10:30 Phenol (Cepastat Lozenge) 1 lozenge Q1H PRN MT THROAT PAIN Last administered on 09/17/18at 10:37; Admin Dose 1 LOZENGE; Start 08/21/18 at 11:00 Acetaminophen (Tylenol Tab) 500 mg Q6H PRN PO MILD PAIN(1-3)OR ELEVATED TEMP Last administered on 3/2/19at 14:12; Admin Dose 500 MG; Start 09/01/18 at 18:30 Lidocaine (Xylocaine (Viscous)) 15 ml QID PRN PO Pain in the mouth; Start 09/02/18 at 10:30 Trazodone HCl (Desyrel) 50 mg BID PO Last administered on 09/27/18 21:06; Admin Dose 50 MG; Start 09/08/18 at 12:30 Lactobacillus Acidophilus/ Rhamnosus (Culturelle) 1 cap BID PO Last administered on 09/27/18 21:06; Admin Dose 1 CAP; Start 09/08/18 at 12:00 Cholecalciferol (Vitamin D) 2,000 unit DAILY PO Last administered on 09/27/18 08:33; Admin Dose 2,000 UNIT; Start 09/13/18 at 09:00 Diphenhydramine HCl (Benadryl) 50 mg Q4 PRN IV ITCHING Last administered on 09/28/18 02:30; Admin Dose 50 MG; Start 09/10/18 at 13:00 Levothyroxine Sodium (Synthroid) 50 mcg BEFORE BREAKFAST PO Last administered on 09/27/18 06:36; Admin Dose 50 MCG; Start 09/13/18 at 07:00 Lorazepam (Ativan) 2 mg Q6 PRN IV Anxiety Last administered on 09/28/18 04:33; Admin Dose 2 MG; Start 09/10/18 at 13:00 Methadone HCl (Methadone Liq) 1 mg TID PO Last administered on 09/27/18 21:06; Admin Dose 1 MG; Start 09/11/18 at 21:00 Pantoprazole (Protonix Tab) 40 mg DAILY@06 PO Last administered on 09/27/18 06:36; Admin Dose 40 MG; Start 09/13/18 at 06:00 Alteplase, Recombinant (Cathflo (Activase)) 2 mg MAY REPEAT X1 PRN CATHETER IF CATHETER REMAINS OCCULUDED Last administered on 09/23/18 11:55; Admin Dose 2 MG; Start 09/19/18 at 01:30 Zinc Sulfate (Zinc Sulfate) 220 mg DAILY PO Last administered on 09/27/18 08:33; Admin Dose 220 MG; Start 09/20/18 at 09:00 Levofloxacin/ Dextrose 150 ml @ 100 mls/hr Q24H IVPB Last administered on 09/27/18 14:25; Admin Dose 100 MLS/HR; Start 09/22/18 at 15:00 Mupirocin (Bactroban) 1 applic TID TOP Last administered on 09/27/18 12:14; Admin Dose 1 APPLIC; Start 09/22/18 at 21:00; Stop 10/06/18 at 23:00 Hydromorphone HCl (Dilaudid) 2 mg Q6H PRN PO SEVERE PAIN LEVEL 7-10 Last administered on 09/27/18 21:06; Admin Dose 2 MG; Start 09/24/18 at 10:30 Hydromorphone HCl (Dilaudid) 1 mg Q8H PRN IV SEVERE PAIN LEVEL 7-10 Last administered on 09/28/18 02:31; Admin Dose 1 MG; Start 09/24/18 at 10:30 Zolpidem Tartrate (Ambien) 5 mg QHS PRN PO INSOMNIA; Start 09/27/18 at 20:00 Hydrocodone Bit/ Homatropine Methylb (Hycodan Liquid) 5 ml Q6 PO Last administered on 09/27/18 21:31; Admin Dose 5 ML; Start 09/27/18 at 22:00 SUZANNE STEVENSON NP Sep 28, 2018 05:38
[2018-09-28] MEDS: PANTOPRAZOLE (EC) 40 MG TAB PO SCH (06:33)
[2018-09-28] MEDS: LEVOTHYROXINE 50 MCG TAB PO SCH (06:33)
[2018-09-28] MEDS: HYDROCODONE/HOMATROPINE 5ML CUP PO SCH ×3 (06:33→17:36)
--- NOTE | 2018-09-28 06:53 | CONS ---
Consultation Date/Type/Reason Admit Date/Time Aug 13, 2018 at 17:22 Initial Consult Date 09/01/18 Requesting Provider: SHAQUILLE HARRIS Date/Time of Note DATE: 09/28/18 TIME: 06:46 24 HR Interval Summary Free Text/Dictation Postdated hospital visit for patient September 27, 2018 Patient still complains of bilateral shoulder and upper back discomfort also bilateral lower extremity discomfort. This is a gnawing pain it does not decrease with recumbent position in fact is worse. She states that with movement she has no acceleration of her pain. She describes her pain is 9/10 and is having just minor alleviation in her discomfort with movement. She denies nausea vomiting mental cloudiness dizziness but diplopia disorientation. There has been no major change in her neurological condition since my last visit., There is no major change in her cognitive ability since my last visit. Patient is pending transfer to a higher level of care. Thus far her entire workup has been precipitated by the fact that she continues to have hemoptysis. Full workup including endoscopy bronchoscopy colonoscopy has not hallucinated a primary diagnosis. She has been seen by rheumatology also who does not believe this is a rheumatologic disorder. There is no radiation into her chest she denies pleuritic anterior chest discomfort except with deep cough and hemoptysis. This constellation of symptoms all began many months prior to his hospitalization and she has had an extensive workup as an outpatient at other hospitals which was unremarkable for definitive diagnosis. Patient's current medications includes as needed doses of Dilaudid and very low-dose of 1 mg twice daily. However she continues to complain of severe discomfort bilateral shoulders. I had long discussions with her primary care hospitalist on multiple occasions we feel that patient's pain is out of control compared to her physical findings and neurological condition. Although there is no past medical history of drug abuse. Reviewed notes from infectious disease consultations also. Viewed medical literature I will speak to rheumatologic consultation for consideration of atypical presentation of Shrogrens Syndrome syndrome or erythema nodosum. I realize these diagnoses have been entertained in the past however reconsideration may be indicated at this time. Exam/Review of Systems Exam Vitals Vital Signs Date Temp Pulse Resp B/P (MAP) Pulse Ox O2 O2 Flow FiO2 Time Delivery Rate 09/28/18 97.7 99 18 124/88 99 02:33 (100) 09/27/18 Room Air 14:20 Intake and Output 09/27/18 09/27/18 09/28/18 1515:00 23:00 07:00 IntakeIntake Total 150 ml OutputOutput Total 100 ml 150 ml BalanceBalance -100 ml 0 ml Constitutional: alert, oriented, well developed, other (No acute distress patient is not moaning groaning frowning) Psych: anxiety Extremities: other (Range of motion bilateral upper extremities grossly intact flexion extension bilateral upper extremities at elbows completely intact AB and adduction of shoulders internal and external rotation of her shoulders completely within normal limits no erythema edema streaking erythema in bilateral upper extremity shrugging of her stroller shoulders are 5/5 bilaterally mold burner strength completely normal limits bilateral upper extremity) Results Result Diagram: 09/28/18 0537 09/27/18 0707 Results 24hrs Laboratory Tests Test 09/27/18 07:07 09/27/18 11:33 09/28/18 05:37 White Blood Count 4.2 L 4.3 L Red Blood Count 2.99 #L 3.01 L Hemoglobin 7.6 #L 7.6 L Hematocrit 24.1 #L 24.1 L Mean Corpuscular Volume 80.6 L 80.1 L Mean Corpuscular Hemoglobin 25.4 L 25.2 L Mean Corpuscular Hemoglobin Concent 31.5 L 31.5 L Red Cell Distribution Width 18.2 H 17.9 H Platelet Count 224 247 Mean Platelet Volume 10.5 H 10.4 Immature Granulocytes % 1.000 H 0.700 H Neutrophils % 59.3 49.5 Lymphocytes % 24.0 33.8 Monocytes % 11.9 H 11.5 H Eosinophils % 3.1 3.8 Basophils % 0.7 0.7 Nucleated Red Blood Cells % 0.0 0.0 Immature Granulocytes # 0.040 H 0.030 Neutrophils # 2.5 2.1 Lymphocytes # 1.0 1.4 Monocytes # 0.5 0.5 Eosinophils # 0.1 0.2 Basophils # 0.0 0.0 Nucleated Red Blood Cells # 0.0 0.0 Prothrombin Time 13.0 Prothrombin Time Ratio 1.0 INR International Normalized Ratio 0.97 Sodium Level 142 Potassium Level 3.8 Chloride Level 107 Carbon Dioxide Level 27 Anion Gap 8 Blood Urea Nitrogen 17 Creatinine 0.40 L Est Glomerular Filtrat Rate mL/min > 60 Glucose Level 93 Calcium Level 8.9 Phosphorus Level 4.5 Magnesium Level 1.9 Total Bilirubin 0.3 Direct Bilirubin 0.00 Indirect Bilirubin 0.3 Aspartate Amino Transf (AST/SGOT) 31 Alanine Aminotransferase (ALT/SGPT) 27 Alkaline Phosphatase 60 Total Protein 6.2 Albumin 3.4 Globulin 2.80 Albumin/Globulin Ratio 1.21 Lab Scanned Report REFERENCE LAB Medications Medication Current Medications IV Flush (NS 3 ml) 3 ml PER PROTOCOL IV ; Start 08/13/18 at 20:00 Ondansetron HCl (Zofran Inj) 4 mg Q6H PRN IV NAUSEA AND/OR VOMITING Last administered on 09/13/18at 00:30; Admin Dose 4 MG; Start 08/13/18 at 20:00 Glucose (Glutose) 15 gm Q15M PRN PO DECREASED GLUCOSE; Start 08/17/18 at 10:30 Glucose (Glutose) 22.5 gm Q15M PRN PO DECREASED GLUCOSE; Start 08/17/18 at 10:30 Dextrose (D50w Syringe) 25 ml Q15M PRN IV DECREASED GLUCOSE; Start 08/17/18 at 10:30 Dextrose (D50w Syringe) 50 ml Q15M PRN IV DECREASED GLUCOSE; Start 08/17/18 at 10:30 Glucagon (Glucagen) 1 mg Q15M PRN IM DECREASED GLUCOSE; Start 08/17/18 at 10:30 Glucose (Glutose) 15 gm Q15M PRN BUCCAL DECREASED GLUCOSE; Start 08/17/18 at 10:30 Phenol (Cepastat Lozenge) 1 lozenge Q1H PRN MT THROAT PAIN Last administered on 09/17/18at 10:37; Admin Dose 1 LOZENGE; Start 08/21/18 at 11:00 Acetaminophen (Tylenol Tab) 500 mg Q6H PRN PO MILD PAIN(1-3)OR ELEVATED TEMP Last administered on 09/25/18at 14:12; Admin Dose 500 MG; Start 09/01/18 at 18:30 Lidocaine (Xylocaine (Viscous)) 15 ml QID PRN PO Pain in the mouth; Start 09/02/18 at 10:30 Trazodone HCl (Desyrel) 50 mg BID PO Last administered on 09/27/18at 21:06; Admin Dose 50 MG; Start 09/08/18 at 12:30 Lactobacillus Acidophilus/ Rhamnosus (Culturelle) 1 cap BID PO Last administered on 09/27/18 21:06; Admin Dose 1 CAP; Start 09/08/18 at 12:00 Cholecalciferol (Vitamin D) 2,000 unit DAILY PO Last administered on 09/27/18 08:33; Admin Dose 2,000 UNIT; Start 09/13/18 at 09:00 Diphenhydramine HCl (Benadryl) 50 mg Q4 PRN IV ITCHING Last administered on 09/28/18 06:33; Admin Dose 50 MG; Start 09/10/18 at 13:00 Levothyroxine Sodium (Synthroid) 50 mcg BEFORE BREAKFAST PO Last administered on 09/28/18 06:33; Admin Dose 50 MCG; Start 09/13/18 at 07:00 Lorazepam (Ativan) 2 mg Q6 PRN IV Anxiety Last administered on 09/28/18 04:33; Admin Dose 2 MG; Start 09/10/18 at 13:00 Methadone HCl (Methadone Liq) 1 mg TID PO Last administered on 09/27/18 21:06; Admin Dose 1 MG; Start 09/11/18 at 21:00 Pantoprazole (Protonix Tab) 40 mg DAILY@06 PO Last administered on 09/28/18 06:33; Admin Dose 40 MG; Start 09/13/18 at 06:00 Alteplase, Recombinant (Cathflo (Activase)) 2 mg MAY REPEAT X1 PRN CATHETER IF CATHETER REMAINS OCCULUDED Last administered on 09/23/18 11:55; Admin Dose 2 MG; Start 09/19/18 at 01:30 Zinc Sulfate (Zinc Sulfate) 220 mg DAILY PO Last administered on 09/27/18 08:33; Admin Dose 220 MG; Start 09/20/18 at 09:00 Levofloxacin/ Dextrose 150 ml @ 100 mls/hr Q24H IVPB Last administered on 09/27/18 14:25; Admin Dose 100 MLS/HR; Start 09/22/18 at 15:00 Mupirocin (Bactroban) 1 applic TID TOP Last administered on 09/27/18 12:14; Admin Dose 1 APPLIC; Start 09/22/18 at 21:00; Stop 10/06/18 at 23:00 Hydromorphone HCl (Dilaudid) 2 mg Q6H PRN PO SEVERE PAIN LEVEL 7-10 Last adm inistered on 09/27/18at 21:06; Admin Dose 2 MG; Start 09/24/18 at 10:30 Hydromorphone HCl (Dilaudid) 1 mg Q8H PRN IV SEVERE PAIN LEVEL 7-10 Last administered on 09/28/18at 02:31; Admin Dose 1 MG; Start 09/24/18 at 10:30 Zolpidem Tartrate (Ambien) 5 mg QHS PRN PO INSOMNIA; Start 09/27/18 at 20:00 Hydrocodone Bit/ Homatropine Methylb (Hycodan Liquid) 5 ml Q6 PO Last administered on 09/28/18at 06:33; Admin Dose 5 ML; Start 09/27/18 at 22:00 HEATHER BALDERRAMA Sep 28, 2018 06:53
[2018-09-28 08:00] VITALS: BP 132/78; PULSE 86; RESP 20
[2018-09-28] MEDS: ZINC SULFATE 220 MG CAP PO SCH (08:21)
[2018-09-28] MEDS: CHOLECALCIFEROL 2,000 UNIT CAP PO SCH (08:21)
[2018-09-28] MEDS: traZODone 50 MG TAB PO SCH ×2 (08:21→23:08)
[2018-09-28] MEDS: METHADONE (1 MG/ML 5 ML PO UD SYG) PO SCH ×3 (08:21→23:09)
[2018-09-28] MEDS: LACTOBACILLUS RHAMNOSUS CAP PO SCH ×2 (08:21→23:08)
[2018-09-28] MEDS: CEPASTAT LOZENGE MT PRN (08:27)
[2018-09-28] MEDS: MUPIROCIN 2% 22 GM OINT TOP SCH ×3 (08:29→23:13)
[2018-09-28] MEDS ORDERED: POTASSIUM CHLORIDE (SR) 20 MEQ TAB PO STA (11:36)
--- NOTE | 2018-09-28 11:38 | CONS ---
Assessment/Plan Assessment/Plan Hospital Course (Demo Recall) #Questionable h/o Lymphoma -patient states she was treated at [facility] however when we asked [facility] for records there is documentation of the patient ever being diagnosed or treated for lymphoma -pt told to bring in oncology records for our review -thus far there are no lesions that can be biopsied and it does not appear she has active cancer. 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 Pulmonary has noted the CT chest which demonstrates RLL lateral segment bronchiectasis as well as numerous peripheral micronodules. -pulmonary considering possible RLL bronchial artery angiography with possible embolization -pt awaiting transfer to tertiary care center #pancolitis -Colonoscopy on 08/17/2018 showed patchy colitis. bx was negative -Stool positive for Giardia- pt on vancomycin and flagyl Consultation Date/Type/Reason Admit Date/Time Aug 13, 2018 at 17:22 Initial Consult Date 08/19/18 Type of Consult oncology Reason for Consultation anemia Requesting Provider: SHAQUILLE HARRIS Date/Time of Note DATE: 09/28/18 TIME: 11:37 24 HR Interval Summary Free Text/Dictation still with hemoptysis Exam/Review of Systems Exam Vitals Vital Signs Date Temp Pulse Resp B/P (MAP) Pulse Ox O2 O2 Flow FiO2 Time Delivery Rate 09/28/18 98.0 86 20 132/78 100 08:00 (96) 09/27/18 Room Air 14:20 Intake and Output 09/27/18 09/27/18 09/28/18 1515:00 23:00 07:00 IntakeIntake Total 150 ml 900 ml OutputOutput Total 100 ml 150 ml BalanceBalance -100 ml 0 ml 900 ml Constitutional: alert, oriented Psych: no complaints Head: normocephalic Eyes: nl conjunctiva ENMT: nl external ears & nose Neck: supple Respiratory: clear to auscultation Cardiovascular: regular rate and rhythm Gastrointestinal: soft Musculoskeletal: nl extremities to inspection Results Result Diagram: 09/28/18 0537 09/28/18 0537 Results 24hrs Laboratory Tests Test 09/28/18 05:37 09/28/18 11:09 White Blood Count 4.3 L Red Blood Count 3.01 L Hemoglobin 7.6 L Hematocrit 24.1 L Mean Corpuscular Volume 80.1 L Mean Corpuscular Hemoglobin 25.2 L Mean Corpuscular Hemoglobin Concent 31.5 L Red Cell Distribution Width 17.9 H Platelet Count 247 Mean Platelet Volume 10.4 Immature Granulocytes % 0.700 H Neutrophils % 49.5 Lymphocytes % 33.8 Monocytes % 11.5 H Eosinophils % 3.8 Basophils % 0.7 Nucleated Red Blood Cells % 0.0 Immature Granulocytes # 0.030 Neutrophils # 2.1 Lymphocytes # 1.4 Monocytes # 0.5 Eosinophils # 0.2 Basophils # 0.0 Nucleated Red Blood Cells # 0.0 Sodium Level 142 Potassium Level 3.4 L Chloride Level 105 Carbon Dioxide Level 26 Anion Gap 11 Blood Urea Nitrogen 17 Creatinine 0.45 Est Glomerular Filtrat Rate mL/min > 60 Glucose Level 95 Calcium Level 9.1 Phosphorus Level 5.8 H Magnesium Level 1.9 Lab Scanned Report REFERENCE LAB Medications Medication Current Medications IV Flush (NS 3 ml) 3 ml PER PROTOCOL IV ; Start 08/13/18 at 20:00 Ondansetron HCl (Zofran Inj) 4 mg Q6H PRN IV NAUSEA AND/OR VOMITING Last administered on 09/13/18at 00:30; Admin Dose 4 MG; Start 08/13/18 at 20:00 Glucose (Glutose) 15 gm Q15M PRN PO DECREASED GLUCOSE; Start 08/17/18 at 10:30 Glucose (Glutose) 22.5 gm Q15M PRN PO DECREASED GLUCOSE; Start 08/17/18 at 10:30 Dextrose (D50w Syringe) 25 ml Q15M PRN IV DECREASED GLUCOSE; Start 08/17/18 at 10:30 Dextrose (D50w Syringe) 50 ml Q15M PRN IV DECREASED GLUCOSE; Start 08/17/18 at 10:30 Glucagon (Glucagen) 1 mg Q15M PRN IM DECREASED GLUCOSE; Start 08/17/18 at 10:30 Glucose (Glutose) 15 gm Q15M PRN BUCCAL DECREASED GLUCOSE; Start 08/17/18 at 10:30 Phenol (Cepastat Lozenge) 1 lozenge Q1H PRN MT THROAT PAIN Last administered on 09/28/18at 08:27; Admin Dose 1 LOZENGE; Start 08/21/18 at 11:00 Acetaminophen (Tylenol Tab) 500 mg Q6H PRN PO MILD PAIN(1-3)OR ELEVATED TEMP Last administered on 09/25/18 14:12; Admin Dose 500 MG; Start 09/01/18 at 18:30 Lidocaine (Xylocaine (Viscous)) 15 ml QID PRN PO Pain in the mouth; Start 09/02/18 at 10:30 Trazodone HCl (Desyrel) 50 mg BID PO Last administered on 09/28/18 08:21; Admin Dose 50 MG; Start 09/08/18 at 12:30 Lactobacillus Acidophilus/ Rhamnosus (Culturelle) 1 cap BID PO Last administered on 09/28/18 08:21; Admin Dose 1 CAP; Start 09/08/18 at 12:00 Cholecalciferol (Vitamin D) 2,000 unit DAILY PO Last administered on 09/28/18 08:21; Admin Dose 2,000 UNIT; Start 09/13/18 at 09:00 Diphenhydramine HCl (Benadryl) 50 mg Q4 PRN IV ITCHING Last administered on 09/28/18 10:41; Admin Dose 50 MG; Start 09/10/18 at 13:00 Levothyroxine Sodium (Synthroid) 50 mcg BEFORE BREAKFAST PO Last administered on 09/28/18 06:33; Admin Dose 50 MCG; Start 09/13/18 at 07:00 Lorazepam (Ativan) 2 mg Q6 PRN IV Anxiety Last administered on 09/28/18 04:33; Admin Dose 2 MG; Start 09/10/18 at 13:00 Methadone HCl (Methadone Liq) 1 mg TID PO Last administered on 09/28/18 08:21; Admin Dose 1 MG; Start 09/11/18 at 21:00 Pantoprazole (Protonix Tab) 40 mg DAILY@06 PO Last administered on 09/28/18 06:33; Admin Dose 40 MG; Start 09/13/18 at 06:00 Alteplase, Recombinant (Cathflo (Activase)) 2 mg MAY REPEAT X1 PRN CATHETER IF CATHETER REMAINS OCCULUDED Last administered on 09/23/18 11:55; Admin Dose 2 MG; Start 09/19/18 at 01:30 Zinc Sulfate (Zinc Sulfate) 220 mg DAILY PO Last administered on 09/28/18 08:21; Admin Dose 220 MG; Start 09/20/18 at 09:00 Levofloxacin/ Dextrose 150 ml @ 100 mls/hr Q24H IVPB Last administered on 09/27/18 14:25; Admin Dose 100 MLS/HR; Start 09/22/18 at 15:00 Mupirocin (Bactroban) 1 applic TID TOP Last administered on 09/28/18 08:29; Admin Dose 1 APPLIC; Start 09/22/18 at 21:00; Stop 10/06/18 at 23:00 Hydromorphone HCl (Dilaudid) 2 mg Q6H PRN PO SEVERE PAIN LEVEL 7-10 Last administered on 09/27/18 21:06; Admin Dose 2 MG; Start 09/24/18 at 10:30 Hydromorphone HCl (Dilaudid) 1 mg Q8H PRN IV SEVERE PAIN LEVEL 7-10 Last ad ministered on 09/28/18 10:41; Admin Dose 1 MG; Start 09/24/18 at 10:30 Zolpidem Tartrate (Ambien) 5 mg QHS PRN PO INSOMNIA; Start 09/27/18 at 20:00 Hydrocodone Bit/ Homatropine Methylb (Hycodan Liquid) 5 ml Q6 PO Last administered on 09/28/18 06:33; Admin Dose 5 ML; Start 09/27/18 at 22:00 XIOMARA GRACIA M.D. Sep 28, 2018 11:38
--- NOTE | 2018-09-28 12:15 | CONS ---
Consult Date/Type/Reason Admit Date/Time Aug 13, 2018 at 17:22 Initial Consult Date 08/19/18 Type of Consult Pulmonary Requesting Provider: SHAQUILLE HARRIS Date/Time of Note DATE: 09/28/18 TIME: 12:13 Subjective Still having significant hemoptysis. Still pending transfer to [facility]. Objective Vital Signs Date Temp Pulse Resp B/P (MAP) Pulse Ox O2 O2 Flow FiO2 Time Delivery Rate 09/28/18 98.0 86 20 132/78 100 08:00 (96) 09/27/18 Room Air 14:20 Intake and Output 09/27/18 09/27/18 09/28/18 1414:59 22:59 06:59 IntakeIntake Total 150 ml 900 ml OutputOutput Total 100 ml 150 ml BalanceBalance -100 ml 0 ml 900 ml Exam GENERAL: Elderly Lady comfortable at rest no acute distress VITAL SIGNS: per chart NECK: Supple. No JVD or lymphadenopathy. CARDIAC EXAM: S1, S2. No added sounds or murmurs. CHEST: clear bilaterally, No added sounds, rales or wheezes ABDOMEN: Soft, nontender. No guarding or rebound. EXTREMITIES: No cyanosis, clubbing or edema. NEUROLOGIC: Generalized weakness. No focal deficits. Vent Setting Fraction of Inspired Oxygen pe: 21 Results/Medications Result Diagram: 09/28/18 0537 09/28/18 0537 Results 24 hrs Laboratory Tests Test 09/28/18 05:37 09/28/18 11:09 White Blood Count 4.3 L Red Blood Count 3.01 L Hemoglobin 7.6 L Hematocrit 24.1 L Mean Corpuscular Volume 80.1 L Mean Corpuscular Hemoglobin 25.2 L Mean Corpuscular Hemoglobin Concent 31.5 L Red Cell Distribution Width 17.9 H Platelet Count 247 Mean Platelet Volume 10.4 Immature Granulocytes % 0.700 H Neutrophils % 49.5 Lymphocytes % 33.8 Monocytes % 11.5 H Eosinophils % 3.8 Basophils % 0.7 Nucleated Red Blood Cells % 0.0 Immature Granulocytes # 0.030 Neutrophils # 2.1 Lymphocytes # 1.4 Monocytes # 0.5 Eosinophils # 0.2 Basophils # 0.0 Nucleated Red Blood Cells # 0.0 Sodium Level 142 Potassium Level 3.4 L Chloride Level 105 Carbon Dioxide Level 26 Anion Gap 11 Blood Urea Nitrogen 17 Creatinine 0.45 Est Glomerular Filtrat Rate mL/min > 60 Glucose Level 95 Calcium Level 9.1 Phosphorus Level 5.8 H Magnesium Level 1.9 Lab Scanned Report REFERENCE LAB Medications Current Medications IV Flush (NS 3 ml) 3 ml PER PROTOCOL IV ; Start 08/13/18 at 20:00 Ondansetron HCl (Zofran Inj) 4 mg Q6H PRN IV NAUSEA AND/OR VOMITING Last administered on 09/13/18at 00:30; Admin Dose 4 MG; Start 08/13/18 at 20:00 Glucose (Glutose) 15 gm Q15M PRN PO DECREASED GLUCOSE; Start 08/17/18 at 10:30 Glucose (Glutose) 22.5 gm Q15M PRN PO DECREASED GLUCOSE; Start 08/17/18 at 10:30 Dextrose (D50w Syringe) 25 ml Q15M PRN IV DECREASED GLUCOSE; Start 08/17/18 at 10:30 Dextrose (D50w Syringe) 50 ml Q15M PRN IV DECREASED GLUCOSE; Start 08/17/18 at 10:30 Glucagon (Glucagen) 1 mg Q15M PRN IM DECREASED GLUCOSE; Start 08/17/18 at 10:30 Glucose (Glutose) 15 gm Q15M PRN BUCCAL DECREASED GLUCOSE; Start 08/17/18 at 10:30 Phenol (Cepastat Lozenge) 1 lozenge Q1H PRN MT THROAT PAIN Last administered on 09/28/18at 08:27; Admin Dose 1 LOZENGE; Start 08/21/18 at 11:00 Acetaminophen (Tylenol Tab) 500 mg Q6H PRN PO MILD PAIN(1-3)OR ELEVATED TEMP Last administered on 09/25/18at 14:12; Admin Dose 500 MG; Start 09/01/18 at 18:30 Lidocaine (Xylocaine (Viscous)) 15 ml QID PRN PO Pain in the mouth; Start 09/02/18 at 10:30 Trazodone HCl (Desyrel) 50 mg BID PO Last administered on 09/28/18at 08:21; Admin Dose 50 MG; Start 09/08/18 at 12:30 Lactobacillus Acidophilus/ Rhamnosus (Culturelle) 1 cap BID PO Last administered on 09/28/18 08:21; Admin Dose 1 CAP; Start 09/08/18 at 12:00 Cholecalciferol (Vitamin D) 2,000 unit DAILY PO Last administered on 09/28/18 08:21; Admin Dose 2,000 UNIT; Start 09/13/18 at 09:00 Diphenhydramine HCl (Benadryl) 50 mg Q4 PRN IV ITCHING Last administered on 09/28/18 10:41; Admin Dose 50 MG; Start 09/10/18 at 13:00 Levothyroxine Sodium (Synthroid) 50 mcg BEFORE BREAKFAST PO Last administered on 09/28/18 06:33; Admin Dose 50 MCG; Start 09/13/18 at 07:00 Lorazepam (Ativan) 2 mg Q6 PRN IV Anxiety Last administered on 09/28/18 11:50; Admin Dose 2 MG; Start 09/10/18 at 13:00 Methadone HCl (Methadone Liq) 1 mg TID PO Last administered on 09/28/18 08:21; Admin Dose 1 MG; Start 09/11/18 at 21:00 Pantoprazole (Protonix Tab) 40 mg DAILY@06 PO Last administered on 09/28/18 06:33; Admin Dose 40 MG; Start 09/13/18 at 06:00 Alteplase, Recombinant (Cathflo (Activase)) 2 mg MAY REPEAT X1 PRN CATHETER IF CATHETER REMAINS OCCULUDED Last administered on 09/23/18 11:55; Admin Dose 2 MG; Start 09/19/18 at 01:30 Zinc Sulfate (Zinc Sulfate) 220 mg DAILY PO Last administered on 09/28/18 08:21; Admin Dose 220 MG; Start 09/20/18 at 09:00 Levofloxacin/ Dextrose 150 ml @ 100 mls/hr Q24H IVPB Last administered on 09/27/18 14:25; Admin Dose 100 MLS/HR; Start 09/22/18 at 15:00 Mupirocin (Bactroban) 1 applic TID TOP Last administered on 09/28/18 08:29; Admin Dose 1 APPLIC; Start 09/22/18 at 21:00; Stop 10/06/18 at 23:00 Hydromorphone HCl (Dilaudid) 2 mg Q6H PRN PO SEVERE PAIN LEVEL 7-10 Last administered on 09/27/18 21:06; Admin Dose 2 MG; Start 3/1/19 at 10:30 Hydromorphone HCl (Dilaudid) 1 mg Q8H PRN IV SEVERE PAIN LEVEL 7-10 Last adm inistered on 09/28/18at 10:41; Admin Dose 1 MG; Start 09/24/18 at 10:30 Zolpidem Tartrate (Ambien) 5 mg QHS PRN PO INSOMNIA; Start 09/27/18 at 20:00 Hydrocodone Bit/ Homatropine Methylb (Hycodan Liquid) 5 ml Q6 PO Last administered on 09/28/18at 11:55; Admin Dose 5 ML; Start 09/27/18 at 22:00 Assessment/Plan Hospital Course (Demo Recall) IMP: 1. Persistent hemoptysis--CT chest notable for RLL lateral segment bronchiectasis as well as numerous peripheral micronodules. Etiology of hemoptysis may well be due to RLL ectatic disease vs. less likely 2/2 one of the micronodules which may represent DIPNECH/carcinoid tumorlets. RECS: 1. Will discuss possible bronchial artery angiography (RLL) with possible embolization, if blush noted on angio 2. Await transfer to [facility]. Long discussion with patient at bedside today. Discussed pending transfer to [facility] and possibility of transfer to all of you. Patient states she does not want to go to a review under any circumstances. Even if easily transpose not available. I explained to her that she has a treatable condition which would require identification of bleeding site and embolization with resolution of hemoptysis and need for transfusions. Patient expressing interest in returning to long term. I explained to her that if she has continued hemoptysis at nursing facility they will transfer her back to acute care facility. She states she does not want this facility to be [facility]. Will discuss with case management and psych social worker. Will attempt to contact [facility] transfer center myself and discuss condition with accepting physician. MARGE GUZMAN MD, [facility] Sep 28, 2018 12:15
--- NOTE | 2018-09-28 13:04 | CONS ---
Consult Date/Type/Reason Admit Date/Time Aug 13, 2018 at 17:22 Initial Consult Date 09/01/18 Type of Consultation: Rheum Requesting Provider: SHAQUILLE HARRIS Date/Time of Note DATE: 09/28/18 TIME: 12:44 Subjective Continues with frequent hemoptysis. Had episode of lihtheadedness and hit head yesterday. Has had some shoulder aches bilaterally but minimal tenderness and has good ROM. No new other complaints. Objective Vitals Vital Signs Date Temp Pulse Resp B/P (MAP) Pulse Ox O2 O2 Flow FiO2 Time Delivery Rate 09/28/18 98.0 86 20 132/78 100 08:00 (96) 09/27/18 Room Air 14:20 Intake and Output 09/27/18 09/27/18 09/28/18 1515:00 23:00 07:00 IntakeIntake Total 150 ml 900 ml OutputOutput Total 100 ml 150 ml BalanceBalance -100 ml 0 ml 900 ml Exam GENERAL: No acute distress at present. SKIN: Without rashes. No sclerodactyly, telangiectasias or periungual erythema. HEENT: Without acute oral or ocular lesions noted. NECK: Without lymphadenopathy. CHEST: Clear to auscultation. HEART: Regular rate and rhythm. ABDOMEN: Soft without tenderness present. EXTREMITIES: With some pedal edema. MUSCULOSKELETAL: Joints without synovitis. Mild tenderness wrists. NEUROLOGIC: Grossly intact. Results/Medications Result Diagram: 09/28/18 0537 09/28/18 0537 Results 24 hrs Laboratory Tests Test 09/28/18 05:37 09/28/18 11:09 White Blood Count 4.3 L Red Blood Count 3.01 L Hemoglobin 7.6 L Hematocrit 24.1 L Mean Corpuscular Volume 80.1 L Mean Corpuscular Hemoglobin 25.2 L Mean Corpuscular Hemoglobin Concent 31.5 L Red Cell Distribution Width 17.9 H Platelet Count 247 Mean Platelet Volume 10.4 Immature Granulocytes % 0.700 H Neutrophils % 49.5 Lymphocytes % 33.8 Monocytes % 11.5 H Eosinophils % 3.8 Basophils % 0.7 Nucleated Red Blood Cells % 0.0 Immature Granulocytes # 0.030 Neutrophils # 2.1 Lymphocytes # 1.4 Monocytes # 0.5 Eosinophils # 0.2 Basophils # 0.0 Nucleated Red Blood Cells # 0.0 Sodium Level 142 Potassium Level 3.4 L Chloride Level 105 Carbon Dioxide Level 26 Anion Gap 11 Blood Urea Nitrogen 17 Creatinine 0.45 Est Glomerular Filtrat Rate mL/min > 60 Glucose Level 95 Calcium Level 9.1 Phosphorus Level 5.8 H Magnesium Level 1.9 Lab Scanned Report REFERENCE LAB Home Meds Reported Medications Zolpidem Tartrate* (Ambien*) 5 Mg Tablet, 5 MG PO QHS PRN for INSOMNIA, #30 TAB 08/13/18 Cholecalciferol* (Vitamin D3*) 1,000 Unit Tablet, 1000 UNIT PO DAILY, TAB 08/13/18 Cholecalciferol* (Vitamin D3*) 1,000 Unit Tablet, 2000 UNIT PO DAILY, TAB 08/13/18 Potassium Chloride* (Potassium Chloride*) 20 Meq Tablet.er, 20 MEQ PO DAILY, TAB.SA 08/13/18 Duloxetine Hcl* (Cymbalta*) 60 Mg Capsule.dr, 60 MG PO DAILY, CAP 08/13/18 Oxycodone Hcl* (Oxycontin*) 15 Mg Tab.sr.12h, 15 MG PO Q12, TAB 08/13/18 Hydromorphone Hcl* (Dilaudid*) 8 Mg Tablet, 8 MG PO Q6H PRN for PAIN, TAB 08/13/18 Pantoprazole* (Protonix*) 40 Mg Tablet.dr, 40 MG PO AC BREAKFAST, TAB 08/13/18 Levothyroxine Sodium* (Levothyroxine Sodium*) 25 Mcg Tablet, 25 MCG PO BEFORE BREAKFAST, #30 TAB 08/13/18 Medications Current Medications IV Flush (NS 3 ml) 3 ml PER PROTOCOL IV ; Start 08/13/18 at 20:00 Ondansetron HCl (Zofran Inj) 4 mg Q6H PRN IV NAUSEA AND/OR VOMITING Last administered on 09/13/18at 00:30; Admin Dose 4 MG; Start 08/13/18 at 20:00 Glucose (Glutose) 15 gm Q15M PRN PO DECREASED GLUCOSE; Start 08/17/18 at 10:30 Glucose (Glutose) 22.5 gm Q15M PRN PO DECREASED GLUCOSE; Start 08/17/18 at 10:30 Dextrose (D50w Syringe) 25 ml Q15M PRN IV DECREASED GLUCOSE; Start 08/17/18 at 10:30 Dextrose (D50w Syringe) 50 ml Q15M PRN IV DECREASED GLUCOSE; Start 08/17/18 at 10:30 Glucagon (Glucagen) 1 mg Q15M PRN IM DECREASED GLUCOSE; Start 08/17/18 at 10:30 Glucose (Glutose) 15 gm Q15M PRN BUCCAL DECREASED GLUCOSE; Start 08/17/18 at 10:30 Phenol (Cepastat Lozenge) 1 lozenge Q1H PRN MT THROAT PAIN Last administered on 09/28/18 08:27; Admin Dose 1 LOZENGE; Start 08/21/18 at 11:00 Acetaminophen (Tylenol Tab) 500 mg Q6H PRN PO MILD PAIN(1-3)OR ELEVATED TEMP Last administered on 09/25/18 14:12; Admin Dose 500 MG; Start 09/01/18 at 18:30 Lidocaine (Xylocaine (Viscous)) 15 ml QID PRN PO Pain in the mouth; Start 09/02/18 at 10:30 Trazodone HCl (Desyrel) 50 mg BID PO Last administered on 09/28/18 08:21; Admin Dose 50 MG; Start 09/08/18 at 12:30 Lactobacillus Acidophilus/ Rhamnosus (Culturelle) 1 cap BID PO Last administered on 09/28/18 08:21; Admin Dose 1 CAP; Start 09/08/18 at 12:00 Cholecalciferol (Vitamin D) 2,000 unit DAILY PO Last administered on 09/28/18 08:21; Admin Dose 2,000 UNIT; Start 09/13/18 at 09:00 Diphenhydramine HCl (Benadryl) 50 mg Q4 PRN IV ITCHING Last administered on 09/28/18 10:41; Admin Dose 50 MG; Start 09/10/18 at 13:00 Levothyroxine Sodium (Synthroid) 50 mcg BEFORE BREAKFAST PO Last administered on 09/28/18 06:33; Admin Dose 50 MCG; Start 09/13/18 at 07:00 Lorazepam (Ativan) 2 mg Q6 PRN IV Anxiety Last administered on 09/28/18 11:50; Admin Dose 2 MG; Start 09/10/18 at 13:00 Methadone HCl (Methadone Liq) 1 mg TID PO Last administered on 09/28/18 08:21; Admin Dose 1 MG; Start 09/11/18 at 21:00 Pantoprazole (Protonix Tab) 40 mg DAILY@06 PO Last administered on 09/28/18 06:33; Admin Dose 40 MG; Start 09/13/18 at 06:00 Alteplase, Recombinant (Cathflo (Activase)) 2 mg MAY REPEAT X1 PRN CATHETER IF CATHETER REMAINS OCCULUDED Last administered on 09/23/18 11:55; Admin Dose 2 MG; Start 09/19/18 at 01:30 Zinc Sulfate (Zinc Sulfate) 220 mg DAILY PO Last administered on 09/28/18 08:21; Admin Dose 220 MG; Start 09/20/18 at 09:00 Levofloxacin/ Dextrose 150 ml @ 100 mls/hr Q24H IVPB Last administered on 09/27/18 14:25; Admin Dose 100 MLS/HR; Start 09/22/18 at 15:00 Mupirocin (Bactroban) 1 applic TID TOP Last administered on 09/28/18 08:29; Admin Dose 1 APPLIC; Start 09/22/18 at 21:00; Stop 10/06/18 at 23:00 Hydromorphone HCl (Dilaudid) 2 mg Q6H PRN PO SEVERE PAIN LEVEL 7-10 Last administered on 09/27/18 21:06; Admin Dose 2 MG; Start 09/24/18 at 10:30 Hydromorphone HCl (Dilaudid) 1 mg Q8H PRN IV SEVERE PAIN LEVEL 7-10 Last adm inistered on 09/28/18 10:41; Admin Dose 1 MG; Start 09/24/18 at 10:30 Zolpidem Tartrate (Ambien) 5 mg QHS PRN PO INSOMNIA; Start 09/27/18 at 20:00 Hydrocodone Bit/ Homatropine Methylb (Hycodan Liquid) 5 ml Q6 PO Last administered on 09/28/18 11:55; Admin Dose 5 ML; Start 09/27/18 at 22:00 Assessment/Plan Assessment/Plan (Daily) ASSESSMENT: 1. Hemoptysis. No definite evidence of pulmonary etiology of the hemoptysis. Strongly doubt pulmonary vasculitis as etiology. Consider upper respiratory, possible sinus or nasal type etiology even though ENT evaluation not very revealing. 2. Bacteremia/sepsis. 3. Pancolitis. 4. Recurrent deep venous thrombosis. Anti phospholipid evaluation negative. 5. Possible recurrence of lymphoma. 6. Possible breast cancer. 7. No evidence of Lupus or Rheumatoid Arthritis and has negative ALLI and Rheum Factor. 8. No evidence of Sjogren's with negative ALLI, RF, SSA or SSB. RECOMMENDATIONS: Agree with attempting bronchial artery angiography (RLL) with possible embolization to evaluate further for pulmonary e JAZZY VANESSA MD Sep 28, 2018 12:54
[2018-09-28 14:00] VITALS: BP 105/55; PULSE 93; RESP 18
[2018-09-28] MEDS ORDERED: DIPHENHYDRAMINE 50 MG INJ IV ONE (14:00)
[2018-09-28] MEDS: HYDROmorphONE 2 MG TAB PO PRN ×2 (14:13→22:08)
[2018-09-28] MEDS: LEVOFLOXACIN 750MG/D5W (PMX) 150 ML IVPB SCH (14:24)
--- NOTE | 2018-09-28 15:20 | DS ---
Date/Time of Note Date/Time of Note DATE: 09/28/18 TIME: 15:17 Discharge Summary Admission/Discharge Info Admit Date/Time Aug 13, 2018 at 17:22 Discharge Date/Time Discharge Diagnosis 1. Acute pancolitis with stool positive for Giardia. 2. Fevers with coagulase-negative Staphylococcus bacteremia on 09/01/2018. Stenotrophomonas maltophilia bacteremia on 09/03/2018. Stenotrophomonas mal tophilia bacteremia on 09/19/2018 3. 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 No evidence or documented history of Hodgkin's lymphoma as per oncology. 4. History of PE. Status post IVC filter placement. 5. Anemia. Microcytic and hypochromic. S/P bone marrow biopsy on 08/20/2018 negative for any malignancy 6. Beta thalassemia trait. 7. Chronic pain syndrome. 8. Hemoptysis. 9. Ulcer of the frenulum linguae. 10. DVT involving the right proximal mid femoral veins; partial DVT of the right distal femoral vein. Patient Condition: Stable Consults 1. Arley West MD, Pulmonary. 2. Brielle Brown MD, Oncology/Hematology. 3. Diane Hutchinson MD, Infectious Diseases. 4. Devin Fernández MD, Pain Management. 5. Lowell Ewing MD, Gastroeneterology. 6. Alexander Richardson MD, Rheumatology. 7. Rohit Reich MD, ENT. Procedures Operative Report Procedure Date: Aug 24, 2018 Preoperative Diagnosis Recurrent hemoptysis Postoperative Diagnosis Normal bronchoscopy Operation/Procedure Performed Bronchoscopy 2D Echocardiogram Conclusions: Normal left ventricular cavity size, wall thickness and systolic function. Normal left ventricular cavity size. Lower limits of normal left ventricular systolic function. Normal left ventricular wall thickness. The left ventricular ejection fraction is visually estimated at 50-55 %. Normal appearance of the mitral valve leaflets. Trivial mitral regurgitation. Normal appearance of the tricuspid valve. There is trivial tricuspid regurgitation. Normal atrial septum. Agitated saline was injected intravenously for microbubble contrast study. No right to left shunt was identified with and with out Valsalva maneuver. B/L LE Venous Doppler Study IMPRESSION: DVT involving the right proximal mid femoral veins. Partial DVT of the right distal femoral vein. Colonoscopy on 08/17/2018 showed patchy colitis. S/P esophagogastroduodenoscopyX2 that showed no evidence of any gastrointestinal bleed. Status post ENT evaluation along with laryngoscopy on 09/01/2018 with no evidence of any bleeding site history of hemoptysis. S/P bone marrow biopsy on 08/20/2018 negative for any malignancy Hx of Present Illness This is a 52-year-old female with comorbidities including reported (non documented) Hodgkin's lymphoma of the lung, history of thyroid cancer status post thyroid surgery,chronic pain syndrome, and.history of PE status post IVC filter placement who came to the emergency room with chief complaint of abdominal pain and bloody stools. The patient's CT scan of the abdomen and pelvis was showing colitis involving the ascending, transverse, descending colon. The patient also had underlying leukocytosis and bandemia. Therefore, the patient was admitted to inpatient setting for further treatment and evaluation. Hospital Course The patient was started on antimicrobial therapy for underlying colitis. The patient underwent a colonoscopy on 08/17/2018 that was showing patchy colitis. The patient's stool studies showed Giardia. The patient was maintained on Flagyl therapy with improvement in the patient's abdominal symptoms including hematochezia and diarrhea. The patient was also noticed to have microcytic and hypochromic anemia. The patient's H&H was monitored closely. The patient received a total of 7 units of PRBC transfusion during the hospitalization. The patient was evaluated by hematology. The patient underwent a bone marrow biopsy on 08/20/2018 that was negative for any malignancy. The patient's protein electrophoresis was consistent with beta thalassemia trait. The patient started having hemoptysis that was significant in amount. The patient was being followed by pulmonology. The patient underwent a bronchoscopy on 08/24/2018 and that was unremarkable. The patient underwent a e sophagogastroduodenoscopy x2 that showed no evidence of any gastrointestinal bleeding. The patient was evaluated by ENT surgeon with a laryngoscopy on 09/01/2018 with no evidence of any bleeding. The etiology of the patient's hemoptysis remains unclear. The patient was also evaluated by rheumatology for evaluation for any underlying vasculitis. The patient had no evidence of Sjogr en's with negative ALLI, RF, SSA or SSB. The patient had no evidence of Lupus or Rheumatoid Arthritis and has negative ALLI and Rheum Factor. Therefore, a clinical decision was made to transfer this patient to a tertiary care facility where this patient can be further evaluated for the etiology of the underlying hemoptysis. The patient claims that she has Hodgkin's lymphoma. As per, oncology there is no evidence of medical history of Hodgkin's lymphoma on this patient. The patient has a history of recurrent thromboembolism. The patient is status post IVC filter placement. The patient had acute DVT present on this admission on diaz ateral lower extremity venous Doppler study. The patient has no evidence of any antiphospholipid syndrome. The patient had sepsis with the coagulate negative Staphylococcus bacteremia and Stenotrophomonas maltophilia bacteremia. The patient was being followed by infectious diseases. The etiology remains unclear. The patient's 2D echocardiogram was negative for any cardiac vegetation. The patient was being followed by pain management team for her chronic pain. The patient had a prolonged hospital course. The patient needs further evaluation for her underlying hemoptysis. Therefore, the patient will be transferred to a tertiary care facility for further evaluation. At this time I would like to thank all the consultants for seeing the patient, doing the necessary procedures, and providing clinical recommendations. The patient was seen in collaboration with Dr. Montes. Home Meds Reported Medications Zolpidem Tartrate* (Ambien*) 5 Mg Tablet, 5 MG PO QHS PRN for INSOMNIA, #30 TAB 08/13/18 Cholecalciferol* (Vitamin D3*) 1,000 Unit Tablet, 1000 UNIT PO DAILY, TAB 08/13/18 Cholecalciferol* (Vitamin D3*) 1,000 Unit Tablet, 2000 UNIT PO DAILY, TAB 08/13/18 Potassium Chloride* (Potassium Chloride*) 20 Meq Tablet.er, 20 MEQ PO DAILY, TAB.SA 08/13/18 Duloxetine Hcl* (Cymbalta*) 60 Mg Capsule.dr, 60 MG PO DAILY, CAP 08/13/18 Oxycodone Hcl* (Oxycontin*) 15 Mg Tab.sr.12h, 15 MG PO Q12, TAB 08/13/18 Hydromorphone Hcl* (Dilaudid*) 8 Mg Tablet, 8 MG PO Q6H PRN for PAIN, TAB 08/13/18 Pantoprazole* (Protonix*) 40 Mg Tablet.dr, 40 MG PO AC BREAKFAST, TAB 08/13/18 Levothyroxine Sodium* (Levothyroxine Sodium*) 25 Mcg Tablet, 25 MCG PO BEFORE BREAKFAST, #30 TAB 08/13/18 Follow-up Plan The patient being transfused to tertiary care facility. Primary Care Provider The patient being transferred to tertiary care facility. Time spent on discharge: > 30 minutes Pending Labs Laboratory Tests Test 09/28/18 05:37 09/28/18 11:09 White Blood Count 4.3 10^3/ul (4.8-10.8) Red Blood Count 3.01 10^6/ul (4.20-5.40) Hemoglobin 7.6 g/dl (12.0-16.0) Hematocrit 24.1 % (37.0-47.0) Mean Corpuscular Volume 80.1 fl (82.0-101.0) Mean Corpuscular Hemoglobin 25.2 pg (29.0-33.0) Mean Corpuscular 31.5 g/dl (32.0-37.0) Hemoglobin Concent Red Cell Distribution Width 17.9 % (11.5-14.5) Platelet Count 247 10^3/UL (140-415) Mean Platelet Volume 10.4 fl (7.4-10.4) Immature Granulocytes % 0.700 % (0.001-0.429) Neutrophils % 49.5 % (39.0-77.0) Lymphocytes % 33.8 % (15.0-51.0) Monocytes % 11.5 % (0.0-11.0) Eosinophils % 3.8 % (0.0-7.0) Basophils % 0.7 % (0.0-2.0) Nucleated Red Blood Cells % 0.0 /100WBC (0.0-0.0) Immature Granulocytes # 0.030 10^3/ul (0.0-0.031) Neutrophils # 2.1 10^3/ul (1.6-7.5) Lymphocytes # 1.4 10^3/ul (0.8-2.9) Monocytes # 0.5 10^3/ul (0.3-0.9) Eosinophils # 0.2 10^3/ul (0.0-0.5) Basophils # 0.0 10^3/ul (0.0-0.1) Nucleated Red Blood Cells # 0.0 10^3/ul (0.0-0.0) Sodium Level 142 mmol/L (135-144) Potassium Level 3.4 mmol/L (3.5-5.1) Chloride Level 105 mmol/L (97-110) Carbon Dioxide Level 26 mmol/L (21-31) Anion Gap 11 (5-13) Blood Urea Nitrogen 17 mg/dl (7-20) Creatinine 0.45 mg/dl (0.44-1.00) Est Glomerular Filtrat > 60 mL/min (>60) Rate mL/min Glucose Level 95 mg/dl (70-220) Calcium Level 9.1 mg/dl (8.4-10.2) Phosphorus Level 5.8 mg/dl (2.5-4.9) Magnesium Level 1.9 mg/dl (1.7-2.5) Lab Scanned Report [facility] [id number] SUZANNE STEVENSON NP Sep 28, 2018 15:20
--- NOTE | 2018-09-28 16:31 | CONS ---
Date/Time of Note Date/Time of Note DATE: 09/28/18 TIME: 16:24 Consult Date/Type/Reason Admit Date Aug 13, 2018 at 17:22 Type of Consult Psych Ordering Provider: SHAQUILLE HARRIS Subjective On a [id number] evaluation, patient continues to report increased anxiety, feeling hopeless,. Patient denies suicidal ideation, complained of difficulty sleeping. Objective Patient Appearance: Appropriate dress Voice Loudness: Mildly Soft/Quiet Mood and Affect Description: Anxious Speech Pattern: Clear Thought Process: Intact Hallucination Type: None Delusion Description: Not Present Assessment/Plan Recommendations Increase Ambien from 5mg QHS to 10mg QHS RENAN GUADALUPE NP Sep 28, 2018 16:31
--- NOTE | 2018-09-28 16:59 | CONS ---
Assessment/Plan Assessment/Plan Hospital Course (Demo Recall) sepsis, endovascular infection - recurrent sepsis 09/19/2018 due to bacteremia - recurrent bacteremia due to stenotrophomonas - s/p bacteremia d/t Coag Neg Staph and Stenotrophomonas maltophilia on 09/01/2018 and 09/02/2018; took daptomycin and levofloxacin - h/o "bacteremia due to enterococci" according to progress notes at [facility], but the actual microbiology report indicated blood culture was positive for ESBL+E. coli - h/o fungemia due to kaley glabrata, sensitive to fluconazole and to micafungin/caspofungin at [facility] - transthoracic echo on 09/04/2018 and 09/23/2018 had no mention on valvular vegetation pulm - persistent hemoptysis ?ectatic disease, pulmonary neuroendocrine tumor - Pt reports negative PPD at [facility] - WBC tagged scan on 09/24/2018 showed no signal of the chest - according to the microbiology report at [facility], Pt had ESBL+E. coli in her respiratory culture. Sputum cultures for AFB and fungi were negative at 8 weeks and at 4 weeks respectively at [facility] - Pt had negative bronchoscopy in 05/2018 at [facility], another at [facility] in 2018, and on 08/25/2018 at [facility] (no e/o bronchial airway bleeding according to Dr. Bello) - Numerous tiny lung nodules, increased in number from the chest CT dated May 22, 2018, with largest measuring 0.3 cm in the left apex, CT on 09/10/2018 indicated: stable bilateral micronodules dating back to examination of at least 01/29/2017; RLL fibrosis, CT on 09/22/2018 noted numerous small bilateral peripheral pulmonary nodules and scattered ground-glass opacities - Kaley albicans in sputum culture on 08/28/2018 and 09/21/2018, a colonizer - so far: aspergillus antibody not detected, HIV negative, coccidioidomycosis serology negative, TB Quant Gold negative, 1,3 beta d glucan negative, procalc 09/01/18 was 0.30; Sputum for O&P was negative, lung scan on 09/23/2018 had low prob of PE, GI - Delgado-colitis per CT 08/13/18 - S/p diarrhea on 09/06/18 - s/p EGD on 09/10/2018: no GI bleeding noted, reportedly completely normal - S/p sigmoidoscopy with biopsy 08/17/2018; path showed no e/o colitis or malignancy from transverse colon and rectum biopsies - S/p bloody diarrhea d/t Giardia; Pt took metronidazole for Giardia (08/14/2018-08/21/2018) in 07/2018. - H/o C diff toxin negative PCR positive status at [facility]. Took a course of Fidaxomyxin x 10 days. C. diff was negative on 08/14/2018 at [facility] - H/o cholecystectomy - Stool for O&P was negative 09/12/18 heme/oncology - recurrent DVT despite IVC filter: DVT of R proximal mid femoral veins, partial DVT of R distal femoral vein on SHARON 09/19/2018 - S/p CT guided bone marrow aspiration and biopsy 08/20/2018 - Microcytic anemia requiring PRBC d/t acute blood loss - Electrophoresis 08/19/18 showed: Evaluation suggests beta thalassemia trait with anemia. Iron deficiency must be ruled out. - H/o BUE and RLE DVT, s/p IVC filter in January 2018 - H/o Hodgkin lymphoma diagnosed in 2006 - H/o thyroid CA diagnosed in 2005, s/p resection, chemo and XRT - IVC filter placement - Patient reports that approximately 2 years ago (2016?) she had an abnormal mammogram of Left breast and that she was scheduled for a biopsy approximately 4 months ago but d/t insurance change did not receive the biopsy, on 09/13/18 patient reported brown drainage from left nipple x2 nights - +Family hx of cancer (father of stomach CA, mother of lymphoma, paternal uncle had breast CA and 12 yo daughter has h/o brain tumor s/p surgery and resulting blindness) , renal - recurrent UTI - h/o UTI due to ESBL+E. coli - S/p PO levofloxacin (08/24/2018-08/28/2018) for probable UTI other conditions - s/p a painful ulcer at frenulum, resolving. According to Pt, topical steroid would worsen the pain. HIV negative, RPR non reactive, herpes 1 and 2 by PCR not detected; s/p trial of PO valacyclovir (08/27/2018-09/01/2018) - s/p bilateral conjunctivitis - improved s/p Cipro eye drops (08/18/18-08/23/18) - myalgia with hemoptysis, CK level stable (<20 on 09/03/2018, 39 on 09/10/2018, and <20 on 09/17/2018) - Hypothyroidism - HLD - S/p hypokalemia - OA - depression/anxiety - H/o x2 - Allergy to PCN and vancomycin (reaction unknown) Previously Pt took: daptomycin (09/02/2018-09/17/2018, 09/19/2018-), cefepime (09/03/18 - 09/05/18), meropenem (09/19/2018-09/21/2018) Recommendations: - I recommend continuing levofloxacin (08/25/18-08/27/2018, 09/05/2018-09/18/2018, restart 09/22/2018-) as she was septic due to bacteremia. Suggested end date: 10/05/2018 management was d/w patient Consultation Date/Type/Reason Admit Date/Time Aug 13, 2018 at 17:22 Initial Consult Date 08/19/18 Type of Consult ID Requesting Provider: SHAQUILLE HARRIS Date/Time of Note DATE: 09/28/18 TIME: 16:58 24 HR Interval Summary Constitutional: other ("fine") Detailed Summary Eyes: no complaints ENT: other (no more ulcer of the mouth) Respiratory: other ("all right") Cardiovascular: no complaints Gastrointestinal: no complaints Genitourinary: no complaints Musculoskeletal: no complaints Skin: no complaints Exam/Review of Systems Exam Vitals Vital Signs Date Temp Pulse Resp B/P (MAP) Pulse Ox O2 O2 Flow FiO2 Time Delivery Rate 09/28/18 98.0 86 20 132/78 100 08:00 (96) 09/27/18 Room Air 14:20 Intake and Output 09/27/18 09/27/18 09/28/18 1515:00 23:00 07:00 IntakeIntake Total 150 ml 900 ml OutputOutput Total 100 ml 150 ml BalanceBalance -100 ml 0 ml 900 ml Constitutional: frail Psych: no complaints, nl mood/affect Head: normocephalic, atraumatic Eyes: nl conjunctiva, nl lids, nl sclera ENMT: nl external ears & nose, nl nasal mucosa & septum, mucosa pink and moist Neck: supple, other (not swollen) Respiratory: clear to auscultation, normal air movement Cardiovascular: regular rate and rhythm, nl pulses Gastrointestinal: soft, bowel sounds; No distended Musculoskeletal: nl extremities to inspection Extremities: No edema Neurological: nl mental status, nl speech Skin: nl turgor, ecchymosis Results Result Diagram: 09/28/18 0537 09/28/18 0537 Results 24hrs Laboratory Tests Test 09/28/18 05:37 09/28/18 11:09 White Blood Count 4.3 L Red Blood Count 3.01 L Hemoglobin 7.6 L Hematocrit 24.1 L Mean Corpuscular Volume 80.1 L Mean Corpuscular Hemoglobin 25.2 L Mean Corpuscular Hemoglobin Concent 31.5 L Red Cell Distribution Width 17.9 H Platelet Count 247 Mean Platelet Volume 10.4 Immature Granulocytes % 0.700 H Neutrophils % 49.5 Lymphocytes % 33.8 Monocytes % 11.5 H Eosinophils % 3.8 Basophils % 0.7 Nucleated Red Blood Cells % 0.0 Immature Granulocytes # 0.030 Neutrophils # 2.1 Lymphocytes # 1.4 Monocytes # 0.5 Eosinophils # 0.2 Basophils # 0.0 Nucleated Red Blood Cells # 0.0 Sodium Level 142 Potassium Level 3.4 L Chloride Level 105 Carbon Dioxide Level 26 Anion Gap 11 Blood Urea Nitrogen 17 Creatinine 0.45 Est Glomerular Filtrat Rate mL/min > 60 Glucose Level 95 Calcium Level 9.1 Phosphorus Level 5.8 H Magnesium Level 1.9 Lab Scanned Report [facility] Medications Medication Current Medications IV Flush (NS 3 ml) 3 ml PER PROTOCOL IV ; Start 08/13/18 at 20:00 Ondansetron HCl (Zofran Inj) 4 mg Q6H PRN IV NAUSEA AND/OR VOMITING Last administered on 09/13/18at 00:30; Admin Dose 4 MG; Start 08/13/18 at 20:00 Glucose (Glutose) 15 gm Q15M PRN PO DECREASED GLUCOSE; Start 08/17/18 at 10:30 Glucose (Glutose) 22.5 gm Q15M PRN PO DECREASED GLUCOSE; Start 08/17/18 at 10:30 Dextrose (D50w Syringe) 25 ml Q15M PRN IV DECREASED GLUCOSE; Start 08/17/18 at 10:30 Dextrose (D50w Syringe) 50 ml Q15M PRN IV DECREASED GLUCOSE; Start 08/17/18 at 10:30 Glucagon (Glucagen) 1 mg Q15M PRN IM DECREASED GLUCOSE; Start 08/17/18 at 10:30 Glucose (Glutose) 15 gm Q15M PRN BUCCAL DECREASED GLUCOSE; Start 08/17/18 at 10:30 Phenol (Cepastat Lozenge) 1 lozenge Q1H PRN MT THROAT PAIN Last administered on 09/28/18 08:27; Admin Dose 1 LOZENGE; Start 08/21/18 at 11:00 Acetaminophen (Tylenol Tab) 500 mg Q6H PRN PO MILD PAIN(1-3)OR ELEVATED TEMP Last administered on 09/25/18 14:12; Admin Dose 500 MG; Start 09/01/18 at 18:30 Lidocaine (Xylocaine (Viscous)) 15 ml QID PRN PO Pain in the mouth; Start 09/02/18 at 10:30 Trazodone HCl (Desyrel) 50 mg BID PO Last administered on 09/28/18 08:21; Admin Dose 50 MG; Start 09/08/18 at 12:30 Lactobacillus Acidophilus/ Rhamnosus (Culturelle) 1 cap BID PO Last administered on 09/28/18 08:21; Admin Dose 1 CAP; Start 09/08/18 at 12:00 Cholecalciferol (Vitamin D) 2,000 unit DAILY PO Last administered on 09/28/18 08:21; Admin Dose 2,000 UNIT; Start 09/13/18 at 09:00 Diphenhydramine HCl (Benadryl) 50 mg Q4 PRN IV ITCHING Last administered on 09/28/18 10:41; Admin Dose 50 MG; Start 09/10/18 at 13:00 Levothyroxine Sodium (Synthroid) 50 mcg BEFORE BREAKFAST PO Last administered on 09/28/18 06:33; Admin Dose 50 MCG; Start 09/13/18 at 07:00 Lorazepam (Ativan) 2 mg Q6 PRN IV Anxiety Last administered on 09/28/18 11:50; Admin Dose 2 MG; Start 09/10/18 at 13:00 Methadone HCl (Methadone Liq) 1 mg TID PO Last administered on 09/28/18 12:44; Admin Dose 1 MG; Start 09/11/18 at 21:00 Pantoprazole (Protonix Tab) 40 mg DAILY@06 PO Last administered on 09/28/18 06:33; Admin Dose 40 MG; Start 09/13/18 at 06:00 Alteplase, Recombinant (Cathflo (Activase)) 2 mg MAY REPEAT X1 PRN CATHETER IF CATHETER REMAINS OCCULUDED Last administered on 09/23/18 11:55; Admin Dose 2 MG; Start 09/19/18 at 01:30 Zinc Sulfate (Zinc Sulfate) 220 mg DAILY PO Last administered on 09/28/18 08:21; Admin Dose 220 MG; Start 09/20/18 at 09:00 Levofloxacin/ Dextrose 150 ml @ 100 mls/hr Q24H IVPB Last administered on 09/28/18 14:24; Admin Dose 100 MLS/HR; Start 09/22/18 at 15:00 Mupirocin (Bactroban) 1 applic TID TOP Last administered on 09/28/18 12:42; Admin Dose 1 APPLIC; Start 09/22/18 at 21:00; Stop 10/06/18 at 23:00 Hydromorphone HCl (Dilaudid) 2 mg Q6H PRN PO SEVERE PAIN LEVEL 7-10 Last admi nistered on 09/28/18 14:13; Admin Dose 2 MG; Start 09/24/18 at 10:30 Hydromorphone HCl (Dilaudid) 1 mg Q8H PRN IV SEVERE PAIN LEVEL 7-10 Last administered on 09/28/18 10:41; Admin Dose 1 MG; Start 09/24/18 at 10:30 Hydrocodone Bit/ Homatropine Methylb (Hycodan Liquid) 5 ml Q6 PO Last administered on 09/28/18 11:55; Admin Dose 5 ML; Start 09/27/18 at 22:00 Zolpidem Tartrate (Ambien) 10 mg QHS PRN PO INSOMNIA; Start 09/28/18 at 17:00 REGINA CARRASCO M.D. Sep 28, 2018 16:59
[2018-09-28] MEDS ORDERED: ZOLPIDEM 5 MG TAB PO PRN (17:00)
[2018-09-28 19:50] VITALS: BP 116/58; PULSE 94; RESP 20
[2018-09-29 01:36] VITALS: BP 124/60; PULSE 68; RESP 21
== END 2018-09-29 01:40 | disposition short-term general hospital (02) | DRG 385 ==
LOC: E/R 13:46 → 6WM 17:22 → EDBEDREQ 18:50 → 6WM 19:33 → PP2 08-25 20:39 → 5EC 09-07 21:00
PROVIDERS: ADMIT Internal Medicine; ATTEND Internal Medicine
PROC: 30233N1 Transfusion of Nonautologous Red Blood Cells into Peripheral Vein, Percutaneous Approach (ICD-10-PCS; 2018-08-16)
PROC: 0DBE8ZX Excision of Large Intestine, Via Natural or Artificial Opening Endoscopic, Diagnostic (ICD-10-PCS; 2018-08-17)
PROC: 07DR3ZX Extraction of Iliac Bone Marrow, Percutaneous Approach, Diagnostic (ICD-10-PCS; 2018-08-20)
PROC: 0BJ08ZZ Inspection of Tracheobronchial Tree, Via Natural or Artificial Opening Endoscopic (ICD-10-PCS; 2018-08-24)
PROC: 0DJ08ZZ Inspection of Upper Intestinal Tract, Via Natural or Artificial Opening Endoscopic (ICD-10-PCS; 2018-08-31)
PROC: 0CJS8ZZ Inspection of Larynx, Via Natural or Artificial Opening Endoscopic (ICD-10-PCS; 2018-09-01)
PROC: 0DJ08ZZ Inspection of Upper Intestinal Tract, Via Natural or Artificial Opening Endoscopic (ICD-10-PCS; 2018-09-10)
PROC: 0DBE8ZX Excision of Large Intestine, Via Natural or Artificial Opening Endoscopic, Diagnostic (ICD-10-PCS; principal; 2018-09-10 18:30)
DX: K51.011 Ulcerative (chronic) pancolitis with rectal bleeding (principal); A41.1 Sepsis due to other specified staphylococcus; A07.1 Giardiasis [lambliasis]; D62 Acute posthemorrhagic anemia; R04.2 Hemoptysis; I82.412 Acute embolism and thrombosis of left femoral vein; F33.9 Major depressive disorder, recurrent, unspecified; N39.0 Urinary tract infection, site not specified; K92.0 Hematemesis; K51.018 Ulcerative (chronic) pancolitis with other complication; Z86.711 Personal history of pulmonary embolism; D56.3 Thalassemia minor; G89.4 Chronic pain syndrome; K14.0 Glossitis; E03.9 Hypothyroidism, unspecified; E78.00 Pure hypercholesterolemia, unspecified; R73.9 Hyperglycemia, unspecified; R07.9 Chest pain, unspecified; Z85.850 Personal history of malignant neoplasm of thyroid; H10.9 Unspecified conjunctivitis; R91.8 Other nonspecific abnormal finding of lung field; R04.0 Epistaxis; K44.9 Diaphragmatic hernia without obstruction or gangrene
CPT/HCPCS: 36415; 36430; 71045; 71046; 71250; 71275; 74018; 74176; 77012; 78582; 78806; 80048; 80053; 81001; 81003; 81025; 82270; 82271; 82550; 82607; 82668; 82728; 82746; 82962; 83010; 83020; 83036; 83540; 83605; 83615; 83690; 83735; 84100; 84132; 84145; 84155; 84165; 84432; 84443; 84484; 84703; 85014; 85018; 85025; 85045; 85049; 85240; 85384; 85610; 85613; 85651; 85670; 85730; 86021; 86038; 86140; 86146; 86147; 86200; 86226; 86235; 86430; 86480; 86592; 86606; 86635; 86674; 86703; 86800; 86850; 86870; 86900; 86901; 86902; 86920; 87040; 87045; 87070; 87075; 87086; 87102; 87177; 87205; 87529; 88104; 88305; 88311; 88313; 93005; 93306; 93308; 93970; 94640; 96374; 96375; 96376; A9540; A9570; C9113; J0610; J0690; J0692; J1100; J1170; J1200; J1610; J1815; J1956; J2060; J2185; J2250; J2405; J2710; J2997; J3010; J3475; J3480; J7030; J7040; J7042; J7070; J7120; P9016; Q9967

== ENCOUNTER 2018-10-04 13:11 | Inpatient (IN) | payer OTHER ==
[~2018-10-04] VITALS: Ht 154.9 cm; Wt 85.3 kg
[~2018-10-04 13:11] MED LIST: CHOL100062 PO; DULO60CA6 PO; HYDR8TAB25 PO; LEVO25TA6 PO; OXYC-536 PO; PANT40TA3 PO; POTA20TA96 PO; ZOLP5TAB PO
[2018-10-05] MEDS ORDERED: LORA1TAB PO (23:07)
[2018-10-05 23:28] VITALS: Ht 154.9 cm; Wt 85.3 kg
[2018-10-05 23:33] VITALS: BP 98/54; PULSE 77; RESP 18
--- NOTE | 2018-10-05 23:58 | HP ---
Date/Time of Note Date/Time of Note DATE: 10/05/18 TIME: 23:58 Assessment/Plan VTE Prophylaxis SCD applied (from Nsg): Yes Pharmacological prophylaxis: NA/contraindicated Pharm contraindication: bleeding Assessment/Plan Assessment/Plan 52-year-old female with a history of DVT and PE status post IVC filter, recurrent abdominal pain and bloody diarrhea, colitis, Giardia, history of hemoptysis, reported history of thyroid cancer status post thyroidectomy transferred from [facility] for a recurrent and bloody stools. PLAN Stool culture including C. difficile Will empirically treat with Flagyl ID consult Will consider CT abdomen/pelvis Continue home meds with adjustment as needed HPI/ROS Admit Date/Time Admit Date/Time Oct 05, 2018 at 22:30 Hx of Present Illness This is a 52-year-old female with a history of DVT and PE status post IVC filter, recurrent abdominal pain and bloody diarrhea, colitis, Giardia, history of hemoptysis, reported history of thyroid cancer status post thyroidectomy. Patient was transferred back to [facility] from [facility] in [place] complaining of abdominal pain and recurrent bloody stools. Stool is formed with a small amount of blood. She also reported seeing blood when she wipes. She was transferred to [facility] for insurance reasons. Patient was admitted by myself recently after she presented with similar symptoms. At that time she had a prolonged hospital stay and was discharged/transferred a few days ago (see recent discharge summary). She said "they did nothing for me at [facility]". Recent discharge summary The patient was started on antimicrobial therapy for underlying colitis. The patient underwent a colonoscopy on 08/17/2018 that was showing patchy colitis. The patient's stool studies showed Giardia. The patient was maintained on Flagyl therapy with improvement in the patient's abdominal symptoms including hematochezia and diarrhea. The patient was also noticed to have microcytic and hypochromic anemia. The patient's H&H was monitored closely. The patient received a total of 7 units of PRBC transfusion during the hospitalization. The patient was evaluated by hematology. The patient underwent a bone marrow biopsy on 08/20/2018 that was negative for any malignancy. The patient's protein electrophoresis was consistent with beta thalassemia trait. The patient started having hemoptysis that was significant in amount. The patient was being followed by pulmonology. The patient underwent a bronchoscopy on 08/24/2018 and that was unremarkable. The patient underwent a esophagogastroduodenoscopy x2 that showed no evidence of any gastrointestinal bleeding. The patient was evaluated by ENT surgeon with a laryngoscopy on 09/01/2018 with no evidence of any bleeding. The etiology of the patient's hemoptysis remains unclear. The patient was also evaluated by rheumatology for evaluation for any underlying vasculitis. The patient had no evidence of Sjogren's with negative ALLI, RF, SSA or SSB. The patient had no evidence of Lupus or Rheumatoid Arthritis and has negative ALLI and Rheum Factor. Therefore, a clinical decision was made to transfer this patient to a tertiary care facility where this patient can be further evaluated for the etiology of the underlying hemoptysis. The patient claimed that she has Hodgkin's lymphoma. As per, oncology there was no evidence of medical history of Hodgkin's lymphoma on this patient. The patient has a history of recurrent thromboembolism. The patient is status post IVC filter placement. The patient had acute DVT during last admission on bilateral lower extremity venous Doppler study. The patient has no evidence of any antiphospholipid syndrome. PMH/Family/Social Past Medical History Medical History: other (See HPI) Medications Current Medications IV Flush (NS 3 ml) 3 ml PER PROTOCOL IV ; Start 10/06/18 at 00:00; Status UNV Ondansetron HCl (Zofran Inj) 4 mg Q6H PRN IV NAUSEA/VOMITING; Start 10/06/18 at 00:00; Status UNV Acetaminophen (Tylenol Tab) 650 mg Q6H PRN PO .PAIN 1-3 OR TEMP; Start 10/06/18 at 00:00; Status UNV Acetaminophen (Tylenol Supp) 650 mg Q6H PRN [place] .PAIN 1-3 OR TEMP; Start 10/06/18 at 00:00; Status UNV Acetaminophen/ Hydrocodone Bitart ([place] (5/325)) 1 tab Q6H PRN PO .MOD PAIN 4- 6; Start 10/06/18 at 00:00; Status UNV Docusate Sodium (Colace) 100 mg Q12H PRN PO .CONSTIPATION; Start 10/06/18 at 00:00; Status UNV Magnesium Hydroxide (Milk Of Mag) 30 ml DAILY PRN PO .CONSTIPATION; Start 10/06/18 at 00:00; Status UNV Bisacodyl (Dulcolax) 5 mg DAILY PRN PO .CONSTIPATION; Start 10/06/18 at 00:00; Status UNV Famotidine (Pepcid) 20 mg Q12 PO ; Start 10/06/18 at 09:00; Status UNV Enoxaparin Sodium (Lovenox) 30 mg DAILY SC ; Start 10/06/18 at 09:00; Status UNV Cholecalciferol (Vitamin D) 2,000 unit DAILY PO ; Start 10/06/18 at 09:00; Status UNV Duloxetine HCl (Cymbalta) 60 mg DAILY PO ; Start 10/06/18 at 09:00; Status UNV Levothyroxine Sodium (Synthroid) 25 mcg BEFORE BREAKFAST PO ; Start 10/06/18 at 07:00; Status UNV Lorazepam (Ativan) 2 mg BID PRN PO ANXIETY; Start 10/06/18 at 00:00; Status UNV Pantoprazole (Protonix Tab) 40 mg AC BREAKFAST PO ; Start 10/06/18 at 07:00; Status UNV Potassium Chloride (Klor-Con 20) 20 meq DAILY PO ; Start 10/06/18 at 09:00; St atus UNV Zolpidem Tartrate (Ambien) 10 mg QHS PRN PO INSOMNIA; Start 10/06/18 at 00:00; Status UNV Coded Allergies: Iodinated Contrast- Oral and IV Dye (Verified Allergy, Severe, 08/20/18) Iodine and Iodide Containing Produc (Verified Allergy, Unknown, 08/13/18) Penicillins (Verified Allergy, Unknown, 08/13/18) ketorolac (Verified Allergy, Unknown, 08/13/18) morphine (Verified Allergy, Unknown, 08/13/18) vancomycin (Verified Allergy, Unknown, 08/13/18) Past Surgical History Past Surgical Hx: other (See HPI) Family History Significant Family History: no pertinent family hx Social History Alcohol Use: none Smoking Status: Never smoker Drug Use: none Exam/Review of Systems Vital Signs Vitals Vital Signs Date Temp Pulse Resp B/P (MAP) Pulse Ox O2 O2 Flow FiO2 Time Delivery Rate 10/05/18 98.0 77 18 98/54 (69) 97 Room Air 23:33 Exam Constitutional: other (No acute distress) Head: normocephalic, atraumatic Eyes: PERRL Respiratory: clear to auscultation, normal air movement Cardiovascular: regular rate and rhythm Gastrointestinal: soft, tender Extremities: normal pulses TOPHER HSU MD Oct 05, 2018 23:58
[2018-10-06] MEDS ORDERED: DOCUSATE SODIUM 100 MG CAP PO PRN
[2018-10-06] MEDS ORDERED: ACETAMINOPHEN 650 MG SUPP PR PRN
[2018-10-06] MEDS ORDERED: NACL 0.9% 3 ML SYG IV SCH
[2018-10-06] MEDS ORDERED: ACETAMINOPHEN 325 MG TAB PO PRN
[2018-10-06] MEDS ORDERED: BISACODYL (EC) 5 MG TAB PO PRN
[2018-10-06] MEDS ORDERED: ONDANSETRON 4 MG INJ IV PRN
[2018-10-06] MEDS ORDERED: MAGNESIUM HYDROXIDE 30ML CUP PO PRN
[2018-10-06 01:43] VITALS: BP 112/74; PULSE 76; RESP 18
[2018-10-06] MEDS: HYDROCODONE/APAP (5/325) TAB PO PRN ×5 (02:50→23:43)
[2018-10-06] MEDS ORDERED: LEVOTHYROXINE 25 MCG TAB PO SCH (07:00)
[2018-10-06 07:34] VITALS: BP 107/53; PULSE 78; RESP 16
[2018-10-06] MEDS: PANTOPRAZOLE (EC) 40 MG TAB PO SCH (08:09)
[2018-10-06] MEDS: POTASSIUM CHLORIDE (SR) 20 MEQ TAB PO SCH (08:10)
[2018-10-06] MEDS: CHOLECALCIFEROL 1,000 UNIT TAB PO SCH (08:10)
[2018-10-06] MEDS: FAMOTIDINE 20 MG TAB PO SCH ×2 (08:10→20:15)
[2018-10-06] MEDS: LORAZEPAM 1 MG TAB PO PRN ×2 (08:15→20:16)
[2018-10-06] MEDS ORDERED: DULOXETINE 30 MG CAP DR PO SCH (09:00)
[2018-10-06] MEDS ORDERED: ENOXAPARIN 30 MG/0.3 ML SYG SC SCH (09:00)
[2018-10-06] MEDS ORDERED: PROMETHAZINE/CODEINE 5ML CUP PO PRN (11:00)
[2018-10-06] MEDS: traZODone 50 MG TAB PO SCH ×2 (11:00→20:15)
[2018-10-06] MEDS ORDERED: LORAZEPAM 1 MG TAB PO PRN (11:00)
[2018-10-06] MEDS: LIDOCAINE 5% PATCH TD SCH (11:00)
--- NOTE | 2018-10-06 11:21 | PN ---
Date/Time of Note Date/Time of Note DATE: 10/06/18 TIME: 11:10 Assessment/Plan VTE Prophylaxis Risk score (from Nsg)>0 risk: 1 SCD applied (from Nsg): Yes SCD contraindicated: low risk/ambulating Pharmacological prophylaxis: NA/contraindicated Pharm contraindication: low risk/ambulating Assessment/Plan Hospital Course A/P 1. Abd pain. No known agg/ relieving factors. Stable observe 2. Chr Pain Syndrome, w pain seeking behavioral, cont alternative therapy. H/o of trigger point injection at [facility] 3. Ftt, transfer to snf soon 4. Suspected Sternotrophomonas line sepsis, PICC out. Cont 2 wks of po Levaquin 5. History of Hodgkin's disease? 6. History of thyroid cancer/ surgery? 7. Bilateral pulmonary micronodules; continue serial CTs. Coccidia titers will be sent if not done yet 8. Right lower lobe fibrosis? Observe follow-up as outpatient 9. Right lower ext DVT, likely due to immobility. IVC filter status post upper PICC assoc DVT. Anticoagulation vs continue filter. Check with vascular. 10. IVC filter status: [employer] Ellen Segura 02/20. Appears to be retrievable, will discuss with vascular 11. Anemia with beta thalassemia trait. That exposed bone marrow. Limit blood draws 12. Generalized anxiety disorder, poor insight, poor support system. Will be challenging to the treat 13. Factitious disorder? seen with a vial of stored to "blood" in her purse on initial admission at [facility]. I was unable to obtain hematocrit has this was not b lood. S: Abd pain no known aggravating factors. No fever diarrhea. Tolerating diet? Will attempt to find abn path from [facility]. Will attempt to contact patient's spokesperson Cristian Garcia [[phone]]. Will attempt to DC IVC filter if appropriate. O: Vital signs stable PE No pallor JVD icterus Regular Clear Bs+ nt nd no RRG No edema Result Diagram: 10/06/18 0834 10/06/18 0834 Results 24hrs Laboratory Tests Test 10/06/18 08:34 White Blood Count 5.2 # Red Blood Count 3.77 #L Hemoglobin 9.3 #L Hematocrit 29.7 #L Mean Corpuscular Volume 78.8 L Mean Corpuscular Hemoglobin 24.7 L Mean Corpuscular Hemoglobin Concent 31.3 L Red Cell Distribution Width 18.0 H Platelet Count 302 # Mean Platelet Volume 10.0 Immature Granulocytes % 1.000 H Neutrophils % 63.9 Lymphocytes % 26.2 Monocytes % 5.8 Eosinophils % 2.1 Basophils % 1.0 Nucleated Red Blood Cells % 0.0 Immature Granulocytes # 0.050 H Neutrophils # 3.3 Lymphocytes # 1.4 Monocytes # 0.3 Eosinophils # 0.1 Basophils # 0.1 Nucleated Red Blood Cells # 0.0 Prothrombin Time 12.2 Prothrombin Time Ratio 1.0 INR International Normalized Ratio 0.89 Activated Partial Thromboplast Time 26.6 Sodium Level 142 Potassium Level 4.2 Chloride Level 100 Carbon Dioxide Level 30 Anion Gap 12 Blood Urea Nitrogen 26 H Creatinine 0.58 Est Glomerular Filtrat Rate mL/min > 60 Glucose Level 132 Calcium Level 9.9 Total Bilirubin 0.5 Direct Bilirubin 0.00 Indirect Bilirubin 0.5 Aspartate Amino Transf (AST/SGOT) 23 Alanine Aminotransferase (ALT/SGPT) 19 Alkaline Phosphatase 73 Total Protein 7.7 Albumin 4.4 Globulin 3.30 H Albumin/Globulin Ratio 1.33 Exam/Review of Systems Exam Vitals Vital Signs Date Temp Pulse Resp B/P (MAP) Pulse Ox O2 O2 Flow FiO2 Time Delivery Rate 10/06/18 98.3 78 16 107/53 100 07:34 (71) 10/05/18 Room Air 23:33 Intake and Output 10/05/18 10/05/18 10/06/18 1515:00 23:00 07:00 IntakeIntake Total 240 ml BalanceBalance 240 ml Results Results 24hrs Laboratory Tests Test 10/06/18 08:34 White Blood Count 5.2 # Red Blood Count 3.77 #L Hemoglobin 9.3 #L Hematocrit 29.7 #L Mean Corpuscular Volume 78.8 L Mean Corpuscular Hemoglobin 24.7 L Mean Corpuscular Hemoglobin Concent 31.3 L Red Cell Distribution Width 18.0 H Platelet Count 302 # Mean Platelet Volume 10.0 Immature Granulocytes % 1.000 H Neutrophils % 63.9 Lymphocytes % 26.2 Monocytes % 5.8 Eosinophils % 2.1 Basophils % 1.0 Nucleated Red Blood Cells % 0.0 Immature Granulocytes # 0.050 H Neutrophils # 3.3 Lymphocytes # 1.4 Monocytes # 0.3 Eosinophils # 0.1 Basophils # 0.1 Nucleated Red Blood Cells # 0.0 Prothrombin Time 12.2 Prothrombin Time Ratio 1.0 INR International Normalized Ratio 0.89 Activated Partial Thromboplast Time 26.6 Sodium Level 142 Potassium Level 4.2 Chloride Level 100 Carbon Dioxide Level 30 Anion Gap 12 Blood Urea Nitrogen 26 H Creatinine 0.58 Est Glomerular Filtrat Rate mL/min > 60 Glucose Level 132 Calcium Level 9.9 Total Bilirubin 0.5 Direct Bilirubin 0.00 Indirect Bilirubin 0.5 Aspartate Amino Transf (AST/SGOT) 23 Alanine Aminotransferase (ALT/SGPT) 19 Alkaline Phosphatase 73 Total Protein 7.7 Albumin 4.4 Globulin 3.30 H Albumin/Globulin Ratio 1.33 Medications Medication Current Medications IV Flush (NS 3 ml) 3 ml PER PROTOCOL IV ; Start 10/06/18 at 00:00 Ondansetron HCl (Zofran Inj) 4 mg Q6H PRN IV NAUSEA/VOMITING; Start 10/06/18 at 00:00 Acetaminophen (Tylenol Tab) 650 mg Q6H PRN PO .PAIN 1-3 OR TEMP; Start 10/06/18 at 00:00 Acetaminophen (Tylenol Supp) [address] .PAIN 1-3 OR TEMP; Start 10/06/18 at 00:00 Acetaminophen/ Hydrocodone Bitart ([place] (5/325)) 1 tab Q6H PRN PO .MOD PAIN 4- 6 Last administered on 10/06/18at 09:40; Admin Dose 1 TAB; Start 10/06/18 at 00:00 Docusate Sodium (Colace) 100 mg Q12H PRN PO .CONSTIPATION; Start 10/06/18 at 00:00 Magnesium Hydroxide (Milk Of Mag) 30 ml DAILY PRN PO .CONSTIPATION; Start 10/06/18 at 00:00 Bisacodyl (Dulcolax) 5 mg DAILY PRN PO .CONSTIPATION; Start 10/06/18 at 00:00 Famotidine (Pepcid) 20 mg Q12 PO Last administered on 10/06/18at 08:10; Admin Dose 20 MG; Start 10/06/18 at 09:00 Cholecalciferol (Vitamin D) 2,000 unit DAILY PO Last administered on 10/06/18at 08:10; Admin Dose 2,000 UNIT; Start 10/06/18 at 09:00 Duloxetine HCl (Cymbalta) 60 mg DAILY PO Last administered on 10/06/18 08:10; Admin Dose 60 MG; Start 10/06/18 at 09:00 Levothyroxine Sodium (Synthroid) 25 mcg BEFORE BREAKFAST PO Last administered on 10/06/18 08:09; Admin Dose 25 MCG; Start 10/06/18 at 07:00 Lorazepam (Ativan) 2 mg BID PRN PO ANXIETY Last administered on 10/06/18 08:15; Admin Dose 2 MG; Start 10/06/18 at 00:00 Pantoprazole (Protonix Tab) 40 mg AC BREAKFAST PO Last administered on 10/06/18 08:09; Admin Dose 40 MG; Start 10/06/18 at 07:00 Potassium Chloride (Klor-Con 20) 20 meq DAILY PO Last administered on 10/06/18 08:10; Admin Dose 20 MEQ; Start 10/06/18 at 09:00 Zolpidem Tartrate (Ambien) 10 mg QHS PRN PO INSOMNIA; Start 10/06/18 at 00:00 LEON CORONA MD Oct 06, 2018 11:20
[2018-10-06] MEDS: GABAPENTIN 300 MG CAP PO SCH ×2 (12:30→20:13)
[2018-10-06] MEDS: BACLOFEN 10 MG TAB PO SCH ×2 (12:30→20:15)
[2018-10-06] MEDS: LEVOFLOXACIN 750 MG TABLET PO SCH (12:31)
[2018-10-06] MEDS: MENTHOL/METH SALICYLATE 30 GM OINT TOP SCH ×2 (13:00→21:00)
[2018-10-06 14:51] VITALS: BP 106/61; PULSE 80; RESP 16
--- NOTE | 2018-10-06 15:06 | CONS ---
Assessment/Plan Assessment/Plan Hospital Course (Demo Recall) sepsis, endovascular infection - recurrent sepsis 09/19/2018 due to bacteremia - recurrent bacteremia due to stenotrophomonas - s/p bacteremia d/t Coag Neg Staph and Stenotrophomonas maltophilia on 09/01/2018 and 09/02/2018; took daptomycin and levofloxacin - h/o "bacteremia due to enterococci" according to progress notes at [facility], but the actual microbiology report indicated blood culture was positive for ESBL+E. coli - h/o fungemia due to kaley glabrata, sensitive to fluconazole and to micafungin/caspofungin at [facility] - transthoracic echo on 09/04/2018 and 09/23/2018 had no mention on valvular vegetation pulm - persistent hemoptysis ?ectatic disease, pulmonary neuroendocrine tumor - Pt reports negative PPD at [facility] - WBC tagged scan on 09/24/2018 showed no signal of the chest - according to the microbiology report at [facility], Pt had ESBL+E. coli in her respiratory culture. Sputum cultures for AFB and fungi were negative at 8 weeks and at 4 weeks respectively at [facility] - Pt had negative bronchoscopy in 05/2018 at [facility], another at [facility] in 2018, and on 08/25/2018 at [facility] (no e/o bronchial airway bleeding according to Dr. Bello) - Numerous tiny lung nodules, increased in number from the chest CT dated May 22, 2018, with largest measuring 0.3 cm in the left apex, CT on 09/10/2018 indicated: stable bilateral micronodules dating back to examination of at least 01/29/2017; RLL fibrosis, CT on 09/22/2018 noted numerous small bilateral peripheral pulmonary nodules and scattered ground-glass opacities - Kaley albicans in sputum culture on 08/28/2018 and 09/21/2018, a colonizer - so far: aspergillus antibody not detected, HIV negative, coccidioidomycosis serology negative, TB Quant Gold negative, 1,3 beta d glucan negative, procalc 09/01/18 was 0.30; Sputum for O&P was negative, lung scan on 09/23/2018 had low prob of PE, GI - Delgado-colitis per CT 08/13/18 - S/p diarrhea on 09/06/18 - s/p EGD on 09/10/2018: no GI bleeding noted, reportedly completely normal - S/p sigmoidoscopy with biopsy 08/17/2018; path showed no e/o colitis or malignancy from transverse colon and rectum biopsies - S/p bloody diarrhea d/t Giardia; Pt took metronidazole for Giardia (08/14/2018-08/21/2018) in 07/2018. - H/o C diff toxin negative PCR positive status at [facility]. Took a course of Fidaxomyxin x 10 days. C. diff was negative on 08/14/2018 at [facility] - H/o cholecystectomy - Stool for O&P was negative 09/12/18 - now s/p recent admit at [facility] for apparent bloody stools heme/oncology - recurrent DVT despite IVC filter: DVT of R proximal mid femoral veins, partial DVT of R distal femoral vein on [facility] 09/19/2018 - S/p CT guided bone marrow aspiration and biopsy 08/20/2018 - Microcytic anemia requiring PRBC d/t acute blood loss - Electrophoresis 08/19/18 showed: Evaluation suggests beta thalassemia trait with anemia. Iron deficiency must be ruled out. - H/o BUE and RLE DVT, s/p IVC filter in January 2018 - H/o Hodgkin lymphoma diagnosed in 2006 - H/o thyroid CA diagnosed in 2005, s/p resection, chemo and XRT - IVC filter placement - Patient reports that approximately 2 years ago (2017?) she had an abnormal mammogram of Left breast and that she was scheduled for a biopsy approximately 4 months ago but d/t insurance change did not receive the biopsy, on 09/13/18 patient reported brown drainage from left nipple x2 nights - +Family hx of cancer (father of stomach CA, mother of lymphoma, paternal uncle had breast CA and 12 yo daughter has h/o brain tumor s/p surgery and resulting blindness) , renal - recurrent UTI - h/o UTI due to ESBL+E. coli - S/p PO levofloxacin (08/24/2018-08/28/2018) for probable UTI other conditions - s/p a painful ulcer at frenulum, resolving. According to Pt, topical steroid would worsen the pain. HIV negative, RPR non reactive, herpes 1 and 2 by PCR not detected; s/p trial of PO valacyclovir (08/27/2018-09/01/2018) - s/p bilateral conjunctivitis - improved s/p Cipro eye drops (08/18/18-08/23/18) - myalgia with hemoptysis, CK level stable (<20 on 09/03/2018, 39 on 09/10/2018, and <20 on 09/17/2018) - Hypothyroidism - HLD - S/p hypokalemia - OA - depression/anxiety - H/o x2 - Allergy to PCN and vancomycin (reaction unknown) Previously Pt took: daptomycin (09/02/2018-09/17/2018, 09/19/2018-), cefepime (09/03/18 - 09/05/18), meropenem (09/19/2018-09/21/2018) Recommendations: - complete Levaquin today; may extend out given recent admit at [facility] and possible missed doses - will review records from [facility] - f/u C.diff - consider psych eval for possible munchausen syndrome Consultation Date/Type/Reason Admit Date/Time Oct 05, 2018 at 22:30 Date of Consultation: Oct 06, 2018 Type of Consult id Reason for Consultation abx [email or web address] Requesting Provider: LEON CORONA MD Date/Time of Note DATE: 10/06/18 TIME: 14:58 Hx of Present Illness 52 yo female with a complicated pmh and recent admission hx, please refer to recent admission and discharge summaries, who has been completing levaquin therapy for stenotrophomonas bacteremia. She has suffered from colitis. She was seen at [facility] (noted to have apparent ESBL E.coli bacteremia), Here at [facility] and most recently now at [facility]. She was transferred from [facility] for continued abdominal pain and diarrhea. Her main complaints are the same today. Fascinatingly she was apparently recently noted to have vials of blood at [facility] and suggestion of malingering/munchausen syndrome was raised. patient has numerous complaints about multiple body systems but most prominent is concern for diarrhea and abdominal discomfort. Past Medical History as per hpi Medical History: other (See HPI) Home Meds Reported Medications Lorazepam* (Lorazepam*) 1 Mg Tablet, 2 MG PO BID PRN for ANXIETY, #30 TAB 10/05/18 Zolpidem Tartrate* (Ambien*) 5 Mg Tablet, 10 MG PO QHS PRN for INSOMNIA, #30 TAB 08/13/18 Cholecalciferol* (Vitamin D3*) 1,000 Unit Tablet, 2000 UNIT PO DAILY, TAB 08/13/18 Potassium Chloride* (Potassium Chloride*) 20 Meq Tablet.er, 20 MEQ PO DAILY, TAB.SA 08/13/18 Duloxetine Hcl* (Cymbalta*) 60 Mg Capsule.dr, 60 MG PO DAILY, CAP 08/13/18 Oxycodone Hcl* (Oxycontin*) 15 Mg Tab.sr.12h, 15 MG PO Q12, TAB 08/13/18 Hydromorphone Hcl* (Dilaudid*) 8 Mg Tablet, 8 MG PO Q6H PRN for PAIN, TAB 08/13/18 Pantoprazole* (Protonix*) 40 Mg Tablet.dr, 40 MG PO AC BREAKFAST, TAB 08/13/18 Levothyroxine Sodium* (Levothyroxine Sodium*) 25 Mcg Tablet, 25 MCG PO BEFORE BREAKFAST, #30 TAB 08/13/18 Discontinued Reported Medications Cholecalciferol* (Vitamin D3*) 1,000 Unit Tablet, 1000 UNIT PO DAILY, TAB 08/13/18 Medications Current Medications IV Flush (NS 3 ml) 3 ml PER PROTOCOL IV ; Start 10/06/18 at 00:00 Ondansetron HCl (Zofran Inj) 4 mg Q6H PRN IV NAUSEA/VOMITING; Start 10/06/18 at 00:00 Acetaminophen (Tylenol Tab) 650 mg Q6H PRN PO .PAIN 1-3 OR TEMP; Start 10/06/18 at 00:00 Acetaminophen (Tylenol Supp) 650 mg Q6H PRN [place] .PAIN 1-3 OR TEMP; Start 10/06/18 at 00:00 Docusate Sodium (Colace) 100 mg Q12H PRN PO .CONSTIPATION; Start 10/06/18 at 00:00 Magnesium Hydroxide (Milk Of Mag) 30 ml DAILY PRN PO .CONSTIPATION; Start 10/06/18 at 00:00 Bisacodyl (Dulcolax) 5 mg DAILY PRN PO .CONSTIPATION; Start 10/06/18 at 00:00 Famotidine (Pepcid) 20 mg Q12 PO Last administered on 10/06/18at 08:10; Admin Dose 20 MG; Start 10/06/18 at 09:00 Cholecalciferol (Vitamin D) 2,000 unit DAILY PO Last administered on 10/06/18 08:10; Admin Dose 2,000 UNIT; Start 10/06/18 at 09:00 Lorazepam (Ativan) 2 mg BID PRN PO ANXIETY Last administered on 10/06/18 08:15; Admin Dose 2 MG; Start 10/06/18 at 00:00 Pantoprazole (Protonix Tab) 40 mg AC BREAKFAST PO Last administered on 10/06/18 08:09; Admin Dose 40 MG; Start 10/06/18 at 07:00 Potassium Chloride (Klor-Con 20) 20 meq DAILY PO Last administered on 10/06/18 08:10; Admin Dose 20 MEQ; Start 10/06/18 at 09:00 Zolpidem Tartrate (Ambien) 10 mg QHS PRN PO INSOMNIA; Start 10/06/18 at 00:00 Duloxetine HCl (Cymbalta) 30 mg DAILY PO ; Start 10/07/18 at 09:00 Acetaminophen/ Hydrocodone Bitart ([place] (5/325)) 1 tab Q4 PRN PO .MOD PAIN 4-6 Last administered on 10/06/18at 13:39; Admin Dose 1 TAB; Start 10/06/18 at 11:00 Levothyroxine Sodium (Synthroid) 50 mcg BEFORE BREAKFAST PO ; Start 10/07/18 at 07:00 Baclofen (Lioresal) 10 mg TID PO Last administered on 10/06/18 12:30; Admin Dose 10 MG; Start 10/06/18 at 13:00 Gabapentin (Neurontin) 600 mg TID PO Last administered on 10/06/18 12:30; Admin Dose 600 MG; Start 10/06/18 at 13:00 Levofloxacin (Levaquin) 750 mg DAILY@06 PO Last administered on 10/06/18 12:31; Admin Dose 750 MG; Start 10/06/18 at 11:00 Lidocaine (Lidoderm) 1 patch DAILY TD ; Start 10/06/18 at 11:00 Senna/Docusate Sodium (Senokot-S) 2 tab HS PO ; Start 10/06/18 at 21:00 Polyethylene Glycol (Miralax) 17 gm DAILY PO ; Start 10/07/18 at 09:00 Menthol/Methyl Salicylate (Cm Whitman) 1 applic QID TOP ; Start 10/06/18 at 13:00 Oxymetazoline HCl (Afrin [place]) 2 spray BID NASAL ; Start 10/06/18 at 21:00 Lactobacillus Acidophilus/ Rhamnosus (Culturelle) 1 cap BID PO ; Start 10/06/18 at 21:00 Promethazine HCl/ Codeine (Phenergan/ Codeine) 10 ml Q4H PRN PO COUGH; Start 10/06/18 at 11:00 Trazodone HCl (Desyrel) 50 mg BID PO ; Start 10/06/18 at 11:00 Zinc Sulfate (Zinc Sulfate) 220 mg DAILY PO ; Start 10/07/18 at 09:00 Nystatin (Nystatin Powder) 1 applic BID TOP ; Start 10/06/18 at 21:00 Allergies: Coded Allergies: Iodinated Contrast- Oral and IV Dye (Verified Allergy, Severe, 08/20/18) Iodine and Iodide Containing Produc (Verified Allergy, Unknown, 08/13/18) Penicillins (Verified Allergy, Unknown, 08/13/18) ketorolac (Verified Allergy, Unknown, 08/13/18) morphine (Verified Allergy, Unknown, 08/13/18) vancomycin (Verified Allergy, Unknown, 08/13/18) Past Surgical History Past Surgical Hx: other (See HPI) Social History Alcohol Use: none Smoking Status: Never smoker Drug Use: none Exam/Review of Systems Exam Vitals Vital Signs Date Temp Pulse Resp B/P (MAP) Pulse Ox O2 O2 Flow FiO2 Time Delivery Rate 10/06/18 98.4 80 16 106/61 99 14:51 (76) 10/05/18 Room Air 23:33 Intake and Output 10/05/18 10/05/18 10/06/18 1515:00 23:00 07:00 IntakeIntake Total 240 ml BalanceBalance 240 ml Results Result Diagram: 10/06/18 0834 10/06/18 0834 Results 24hrs Laboratory Tests Test 10/06/18 08:34 White Blood Count 5.2 # Red Blood Count 3.77 #L Hemoglobin 9.3 #L Hematocrit 29.7 #L Mean Corpuscular Volume 78.8 L Mean Corpuscular Hemoglobin 24.7 L Mean Corpuscular Hemoglobin Concent 31.3 L Red Cell Distribution Width 18.0 H Platelet Count 302 # Mean Platelet Volume 10.0 Immature Granulocytes % 1.000 H Neutrophils % 63.9 Lymphocytes % 26.2 Monocytes % 5.8 Eosinophils % 2.1 Basophils % 1.0 Nucleated Red Blood Cells % 0.0 Immature Granulocytes # 0.050 H Neutrophils # 3.3 Lymphocytes # 1.4 Monocytes # 0.3 Eosinophils # 0.1 Basophils # 0.1 Nucleated Red Blood Cells # 0.0 Prothrombin Time 12.2 Prothrombin Time Ratio 1.0 INR International Normalized Ratio 0.89 Activated Partial Thromboplast Time 26.6 Sodium Level 142 Potassium Level 4.2 Chloride Level 100 Carbon Dioxide Level 30 Anion Gap 12 Blood Urea Nitrogen 26 H Creatinine 0.58 Est Glomerular Filtrat Rate mL/min > 60 Glucose Level 132 Calcium Level 9.9 Total Bilirubin 0.5 Direct Bilirubin 0.00 Indirect Bilirubin 0.5 Aspartate Amino Transf (AST/SGOT) 23 Alanine Aminotransferase (ALT/SGPT) 19 Alkaline Phosphatase 73 Total Protein 7.7 Albumin 4.4 Globulin 3.30 H Albumin/Globulin Ratio 1.33 Medications Medication Current Medications IV Flush (NS 3 ml) 3 ml PER PROTOCOL IV ; Start 10/06/18 at 00:00 Ondansetron HCl (Zofran Inj) 4 mg Q6H PRN IV NAUSEA/VOMITING; Start 10/06/18 at 00:00 Acetaminophen (Tylenol Tab) 650 mg Q6H PRN PO .PAIN 1-3 OR TEMP; Start 10/06/18 at 00:00 Acetaminophen (Tylenol Supp) 650 mg Q6H PRN [place] .PAIN 1-3 OR TEMP; Start 10/06/18 at 00:00 Docusate Sodium (Colace) 100 mg Q12H PRN PO .CONSTIPATION; Start 10/06/18 at 00:00 Magnesium Hydroxide (Milk Of Mag) 30 ml DAILY PRN PO .CONSTIPATION; Start 10/06/18 at 00:00 Bisacodyl (Dulcolax) 5 mg DAILY PRN PO .CONSTIPATION; Start 10/06/18 at 00:00 Famotidine (Pepcid) 20 mg Q12 PO Last administered on 10/06/18at 08:10; Admin Dose 20 MG; Start 10/06/18 at 09:00 Cholecalciferol (Vitamin D) 2,000 unit DAILY PO Last administered on 10/06/18at 08:10; Admin Dose 2,000 UNIT; Start 10/06/18 at 09:00 Lorazepam (Ativan) 2 mg BID PRN PO ANXIETY Last administered on 10/06/18 08:15; Admin Dose 2 MG; Start 10/06/18 at 00:00 Pantoprazole (Protonix Tab) 40 mg AC BREAKFAST PO Last administered on 10/06/18at 08:09; Admin Dose 40 MG; Start 10/06/18 at 07:00 Potassium Chloride (Klor-Con 20) 20 meq DAILY PO Last administered on 10/06/18at 08:10; Admin Dose 20 MEQ; Start 10/06/18 at 09:00 Zolpidem Tartrate (Ambien) 10 mg QHS PRN PO INSOMNIA; Start 10/06/18 at 00:00 Duloxetine HCl (Cymbalta) 30 mg DAILY PO ; Start 10/07/18 at 09:00 Acetaminophen/ Hydrocodone Bitart ([place] (5/325)) 1 tab Q4 PRN PO .MOD PAIN 4-6 Last administered on 10/06/18at 13:39; Admin Dose 1 TAB; Start 10/06/18 at 11:00 Levothyroxine Sodium (Synthroid) 50 mcg BEFORE BREAKFAST PO ; Start 10/07/18 at 07:00 Baclofen (Lioresal) 10 mg TID PO Last administered on 10/06/18at 12:30; Admin Dose 10 MG; Start 10/06/18 at 13:00 Gabapentin (Neurontin) 600 mg TID PO Last administered on 10/06/18at 12:30; Ad min Dose 600 MG; Start 10/06/18 at 13:00 Levofloxacin (Levaquin) 750 mg DAILY@06 PO Last administered on 10/06/18at 12:31; Admin Dose 750 MG; Start 10/06/18 at 11:00 Lidocaine (Lidoderm) 1 patch DAILY TD ; Start 10/06/18 at 11:00 Senna/Docusate Sodium (Senokot-S) 2 tab HS PO ; Start 10/06/18 at 21:00 Polyethylene Glycol (Miralax) 17 gm DAILY PO ; Start 10/07/18 at 09:00 Menthol/Methyl Salicylate (Cm Whitman) 1 applic QID TOP ; Start 10/06/18 at 13:00 Oxymetazoline HCl (Afrin [place]) 2 spray BID NASAL ; Start 10/06/18 at 21:00 Lactobacillus Acidophilus/ Rhamnosus (Culturelle) 1 cap BID PO ; Start 10/06/18 at 21:00 Promethazine HCl/ Codeine (Phenergan/ Codeine) 10 ml Q4H PRN PO COUGH; Start 10/06/18 at 11:00 Trazodone HCl (Desyrel) 50 mg BID PO ; Start 10/06/18 at 11:00 Zinc Sulfate (Zinc Sulfate) 220 mg DAILY PO ; Start 10/07/18 at 09:00 Nystatin (Nystatin Powder) 1 applic BID TOP ; Start 10/06/18 at 21:00 AUREA MEDINA MD Oct 06, 2018 15:06
[2018-10-06] MEDS: DIPHENHYDRAMINE 50 MG INJ IV PRN ×2 (15:39→21:17)
--- NOTE | 2018-10-06 17:40 | CONS ---
Date/Time of Note Date/Time of Note DATE: 10/06/18 TIME: 17:36 Consult Date/Type/Reason Admit Date Oct 05, 2018 at 22:30 Type of Consult Psych Reason for Consult Psychiatric reevaluation Ordering Provider: LEON CORNOA MD Subjective Patient is a 52-year-old female with history of hemoptysis. On a [id number] evaluation, patient still reports feeling hopeless, because pain had pain and had medical issues are not yet resolved. She denies suicidal ideation and contracted for safety. Discussed risk and benefits of antidepressant Cymbalta and and patient states Cymbalta is just enough for her depression, Objective Patient Appearance: Appropriate dress Voice Loudness: Normal Mood and Affect Description: Calm Mood or Affect: Cooperative Speech Pattern: Clear Thought Process: Intact Hallucination Type: None Delusion Description: Not Present Assessment/Plan Recommendations Continue on Cymbalta 30 mg daily RENAN GUADALUPE NP Oct 06, 2018 17:40
[2018-10-06 19:56] VITALS: BP 113/55; RESP 16
[2018-10-06] MEDS: LACTOBACILLUS RHAMNOSUS CAP PO SCH (20:15)
[2018-10-06] MEDS: SENNA/DOCUSATE NA (8.6MG/50MG) TAB PO SCH (20:15)
[2018-10-06] MEDS: OXYMETAZOLINE 0.05% 15 ML NAS SPRAY NASAL SCH (20:19)
[2018-10-06] MEDS: NYSTATIN 30 GM POWDER BTL TOP SCH (20:20)
[2018-10-06] MEDS: ZOLPIDEM 5 MG TAB PO PRN (23:43)
[2018-10-07] MEDS: ONDANSETRON 4 MG TAB PO PRN ×2 (00:54→10:26)
[2018-10-07] MEDS: LEVOFLOXACIN 750 MG TABLET PO SCH ×2 (06:00→06:46)
[2018-10-07] MEDS: LEVOTHYROXINE 50 MCG TAB PO SCH ×2 (06:46→06:49)
[2018-10-07] MEDS: PANTOPRAZOLE (EC) 40 MG TAB PO SCH ×2 (06:46→06:49)
[2018-10-07] MEDS: POTASSIUM CHLORIDE (SR) 20 MEQ TAB PO SCH (08:02)
[2018-10-07] MEDS: traZODone 50 MG TAB PO SCH ×2 (08:03→20:05)
[2018-10-07] MEDS: GABAPENTIN 300 MG CAP PO SCH ×3 (08:03→20:05)
[2018-10-07] MEDS: BACLOFEN 10 MG TAB PO SCH ×3 (08:03→20:05)
[2018-10-07] MEDS: LACTOBACILLUS RHAMNOSUS CAP PO SCH ×2 (08:03→20:05)
[2018-10-07] MEDS: FAMOTIDINE 20 MG TAB PO SCH ×2 (08:03→20:05)
[2018-10-07] MEDS: HYDROCODONE/APAP (5/325) TAB PO PRN ×4 (08:03→20:05)
[2018-10-07] MEDS: OXYMETAZOLINE 0.05% 15 ML NAS SPRAY NASAL SCH ×2 (08:05→20:10)
[2018-10-07] MEDS: LIDOCAINE 5% PATCH TD SCH (08:06)
[2018-10-07] MEDS: NYSTATIN 30 GM POWDER BTL TOP SCH ×2 (08:06→20:10)
[2018-10-07] MEDS: MENTHOL/METH SALICYLATE 30 GM OINT TOP SCH ×4 (08:06→20:10)
[2018-10-07] MEDS: ZINC SULFATE 220 MG CAP PO SCH (08:09)
[2018-10-07] MEDS: DULOXETINE 30 MG CAP DR PO SCH (08:10)
[2018-10-07] MEDS: POLYETHYLENE GLYCOL 17 GM PACKET PO SCH (08:10)
[2018-10-07] MEDS: LORAZEPAM 1 MG TAB PO PRN ×2 (08:10→20:56)
[2018-10-07] MEDS: DIPHENHYDRAMINE 25 MG CAP PO PRN ×2 (10:28→18:08)
[2018-10-07] MEDS: CHOLECALCIFEROL 1,000 UNIT TAB PO SCH (12:06)
--- NOTE | 2018-10-07 14:02 | PN ---
Date/Time of Note Date/Time of Note DATE: 10/07/18 TIME: 13:56 Assessment/Plan VTE Prophylaxis Risk score (from Nsg)>0 risk: 7 SCD applied (from Nsg): No SCD contraindicated: low risk/ambulating Pharmacological prophylaxis: NA/contraindicated Pharm contraindication: bleeding Lines/Catheters IV Catheter Type (from Nrsg): Saline Lock Assessment/Plan Hospital Course A/P 1. Abd pain, crampy, diffuse. No known agg/ relieving factors. Stable observe 2. Chr Pain Syndrome, w pain seeking behavioral, cont alternative therapy. H/o of trigger point injection at [facility] 3. Ftt, transfer to snf soon 4. Suspected Sternotrophomonas line sepsis, PICC out. Cont 2 wks of po Levaquin 5. History of Hodgkin's disease? 6. History of thyroid cancer/ surgery? 7. Bilateral pulmonary micronodules; continue serial CTs. Coccidia titers sent 8. Rt lower lobe fibrosis? Observe, follow-up as outpatient 9. Rt lower ext DVT, likely due to immobility. IVC filter status post upper ext PICC assoc DVT. Anticoagulation vs continue filter. Check with va scular. 10. IVC filter status: [employer] Ellen Segura . Appears retrievable; will discuss with vascular 11. Anemia with beta thalassemia trait. sp bone marrow. limit blood draws 12. Generalized anxiety disorder, poor insight, poor support system. Will be challenging to treat 13. 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 seen with a vial of stored "blood" in her purse on initial admission at [facility]. were unable to obtain hematocrit, as this was not blood. S: 10/06 Abd pain, crampy, diffuse. no agg factors. No fever. + diarrhea. Tolerating diet? Will attempt to find abn path from [facility]. Will attempt to contact patient's spokesperson Cristian Garcia [[phone]]. Will attempt to DC IVC filter if appropriate. 10/07: pulled out iv, refused new iv & am labs. c diff -ve. appr [facility] eval. O: vss PE No pallor Regular Clear Bs+ nt nd no RRG No edema Result Diagram: 10/06/18 0834 10/06/18 0834 Exam/Review of Systems Exam Vitals Vital Signs Date Temp Pulse Resp B/P (MAP) Pulse Ox O2 O2 Flow FiO2 Time Delivery Rate 10/06/18 16 113/55 19:56 (74) 10/06/18 98.4 80 99 14:51 10/05/18 Room Air 23:33 Intake and Output 10/06/18 10/06/18 10/07/18 1515:00 23:00 07:00 IntakeIntake Total 1040 ml 360 ml BalanceBalance 1040 ml 360 ml Medications Medication Current Medications IV Flush (NS 3 ml) 3 ml PER PROTOCOL IV ; Start 10/06/18 at 00:00 Ondansetron HCl (Zofran Inj) 4 mg Q6H PRN IV NAUSEA/VOMITING Last administered on 10/06/18at 14:57; Admin Dose 4 MG; Start 10/06/18 at 00:00 Acetaminophen (Tylenol Tab) 650 mg Q6H PRN PO .PAIN 1-3 OR TEMP; Start 10/06/18 at 00:00 Acetaminophen (Tylenol Supp) 650 mg Q6H PRN OR .PAIN 1-3 OR TEMP; Start 10/06/18 at 00:00 Docusate Sodium (Colace) 100 mg Q12H PRN PO .CONSTIPATION; Start 10/06/18 at 00:00 Magnesium Hydroxide (Milk Of Mag) 30 ml DAILY PRN PO .CONSTIPATION; Start 10/06/18 at 00:00 Bisacodyl (Dulcolax) 5 mg DAILY PRN PO .CONSTIPATION; Start 10/06/18 at 00:00 Famotidine (Pepcid) 20 mg Q12 PO Last administered on 10/07/18at 08:03; Admin Dose 20 MG; Start 10/06/18 at 09:00 Cholecalciferol (Vitamin D) 2,000 unit DAILY PO Last administered on 10/07/18at 12:06; Admin Dose 2,000 UNIT; Start 10/06/18 at 09:00 Lorazepam (Ativan) 2 mg BID PRN PO ANXIETY Last administered on 10/07/18at 08:10; Admin Dose 2 MG; Start 10/06/18 at 00:00 Pantoprazole (Protonix Tab) 40 mg AC BREAKFAST PO Last administered on 10/06/18at 08:09; Admin Dose 40 MG; Start 10/06/18 at 07:00 Potassium Chloride (Klor-Con 20) 20 meq DAILY PO Last administered on 10/07/18 08:02; Admin Dose 20 MEQ; Start 10/06/18 at 09:00 Zolpidem Tartrate (Ambien) 10 mg QHS PRN PO INSOMNIA Last administered on 10/06/18 23:43; Admin Dose 10 MG; Start 10/06/18 at 00:00 Duloxetine HCl (Cymbalta) 30 mg DAILY PO Last administered on 10/07/18 08:10; Admin Dose 30 MG; Start 10/07/18 at 09:00 Acetaminophen/ Hydrocodone Bitart ([place] (5/325)) 1 tab Q4 PRN PO .MOD PAIN 4-6 Last administered on 10/07/18 12:06; Admin Dose 1 TAB; Start 10/06/18 at 11:00 Levothyroxine Sodium (Synthroid) 50 mcg BEFORE BREAKFAST PO ; Start 10/07/18 at 07:00 Baclofen (Lioresal) 10 mg TID PO Last administered on 10/07/18 12:06; Admin Dose 10 MG; Start 10/06/18 at 13:00 Gabapentin (Neurontin) 600 mg TID PO Last administered on 10/07/18 12:06; Admin Dose 600 MG; Start 10/06/18 at 13:00 Levofloxacin (Levaquin) 750 mg DAILY@06 PO Last administered on 10/06/18 12:31; Admin Dose 750 MG; Start 10/06/18 at 11:00 Lidocaine (Lidoderm) 1 patch DAILY TD ; Start 10/06/18 at 11:00 Senna/Docusate Sodium (Senokot-S) 2 tab HS PO Last administered on 10/06/18 20:15; Admin Dose 2 TAB; Start 10/06/18 at 21:00 Polyethylene Glycol (Miralax) 17 gm DAILY PO ; Start 10/07/18 at 09:00 Menthol/Methyl Salicylate (Cm Whitman) 1 applic QID TOP ; Start 10/06/18 at 13:00 Oxymetazoline HCl (Afrin [place]) 2 spray BID NASAL ; Start 10/06/18 at 21:00 Lactobacillus Acidophilus/ Rhamnosus (Culturelle) 1 cap BID PO Last administ ered on 10/07/18 08:03; Admin Dose 1 CAP; Start 10/06/18 at 21:00 Promethazine HCl/ Codeine (Phenergan/ Codeine) 10 ml Q4H PRN PO COUGH; Start 10/06/18 at 11:00 Trazodone HCl (Desyrel) 50 mg BID PO Last administered on 10/07/18 08:03; Admin Dose 50 MG; Start 10/06/18 at 11:00 Zinc Sulfate (Zinc Sulfate) 220 mg DAILY PO Last administered on 10/07/18 08:09; Admin Dose 220 MG; Start 10/07/18 at 09:00 Nystatin (Nystatin Powder) 1 applic BID TOP ; Start 10/06/18 at 21:00 Diphenhydramine HCl (Benadryl) 25 mg Q6H PRN IV ITCHING Last administered on 10/06/18at 21:17; Admin Dose 25 MG; Start 10/06/18 at 15:30 Ondansetron HCl (Zofran Tab) 4 mg Q6H PRN PO NAUSEA AND/OR VOMITING Last administered on 10/07/18 10:26; Admin Dose 4 MG; Start 10/07/18 at 00:30 Diphenhydramine HCl (Benadryl) 25 mg Q6H PRN PO ITCHING Last administered on 10/07/18 10:28; Admin Dose 25 MG; Start 10/07/18 at 00:30 LEON CORONA MD Oct 07, 2018 14:02
[2018-10-07 14:50] VITALS: BP 137/85; PULSE 91; RESP 17
--- NOTE | 2018-10-07 15:29 | CONS ---
Assessment/Plan Assessment/Plan Hospital Course (Demo Recall) sepsis, endovascular infection - recurrent sepsis 09/19/2018 due to bacteremia - recurrent bacteremia due to stenotrophomonas - s/p bacteremia d/t Coag Neg Staph and Stenotrophomonas maltophilia on 09/01/2018 and 09/02/2018; took daptomycin and levofloxacin - h/o "bacteremia due to enterococci" according to progress notes at [facility], but the actual microbiology report indicated blood culture was positive for ESBL+E. coli - h/o fungemia due to kaley glabrata, sensitive to fluconazole and to micafungin/caspofungin at [facility] - transthoracic echo on 09/04/2018 and 09/23/2018 had no mention on valvular vegetation pulm - persistent hemoptysis ?ectatic disease, pulmonary neuroendocrine tumor - Pt reports negative PPD at [facility] - WBC tagged scan on 09/24/2018 showed no signal of the chest - according to the microbiology report at [facility], Pt had ESBL+E. coli in her respiratory culture. Sputum cultures for AFB and fungi were negative at 8 weeks and at 4 weeks respectively at [facility] - Pt had negative bronchoscopy in 05/2018 at [facility], another at [facility] in 2018, and on 08/25/2018 at [facility] (no e/o bronchial airway bleeding according to Dr. Bello) - Numerous tiny lung nodules, increased in number from the chest CT dated May 22, 2018, with largest measuring 0.3 cm in the left apex, CT on 09/10/2018 indicated: stable bilateral micronodules dating back to examination of at least 01/29/2017; RLL fibrosis, CT on 09/22/2018 noted numerous small bilateral peripheral pulmonary nodules and scattered ground-glass opacities - Kaley albicans in sputum culture on 08/28/2018 and 09/21/2018, a colonizer - so far: aspergillus antibody not detected, HIV negative, coccidioidomycosis serology negative, TB Quant Gold negative, 1,3 beta d glucan negative, procalc 09/01/18 was 0.30; Sputum for O&P was negative, lung scan on 09/23/2018 had low prob of PE, GI - Delgado-colitis per CT 08/13/18 - S/p diarrhea on 09/06/18 - s/p EGD on 09/10/2018: no GI bleeding noted, reportedly completely normal - S/p sigmoidoscopy with biopsy 08/17/2018; path showed no e/o colitis or malignancy from transverse colon and rectum biopsies - S/p bloody diarrhea d/t Giardia; Pt took metronidazole for Giardia (08/14/2018-08/21/2018) in 07/2018. - H/o C diff toxin negative PCR positive status at [facility]. Took a course of Fidaxomyxin x 10 days. C. 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 Iron deficiency must be ruled out. - H/o BUE and RLE DVT, s/p IVC filter in January 2018 - H/o Hodgkin lymphoma diagnosed in 2006 - H/o thyroid CA diagnosed in 2005, s/p resection, chemo and XRT - IVC filter placement - Patient reports that approximately 2 years ago (2017?) she had an abnormal mammogram of Left breast and that she was scheduled for a biopsy approximately 4 months ago but d/t insurance change did not receive the biopsy, on 09/13/18 patient reported brown drainage from left nipple x2 nights - +Family hx of cancer (father of stomach CA, mother of lymphoma, paternal uncle had breast CA and 12 yo daughter has h/o brain tumor s/p surgery and resulting blindness) , renal - recurrent UTI - h/o UTI due to ESBL+E. coli - S/p PO levofloxacin (08/24/2018-08/28/2018) for probable UTI other conditions - s/p a painful ulcer at frenulum, resolving. According to Pt, topical steroid would worsen the pain. HIV negative, RPR non reactive, herpes 1 and 2 by PCR not detected; s/p trial of PO valacyclovir (08/27/2018-09/01/2018) - s/p bilateral conjunctivitis - improved s/p Cipro eye drops (08/18/18-08/23/18) - myalgia with hemoptysis, CK level stable (<20 on 09/03/2018, 39 on 09/10/2018, and <20 on 09/17/2018) - Hypothyroidism - HLD - S/p hypokalemia - OA - depression/anxiety - H/o x2 - Allergy to PCN and vancomycin (reaction unknown) Previously Pt took: daptomycin (09/02/2018-09/17/2018, 09/19/2018-), cefepime (09/03/18 - 09/05/18), meropenem (09/19/2018-09/21/2018) Recommendations: - complete Levaquin today - agree with checking blood clot specimen to determine if blood - will follow closely with you Consultation Date/Type/Reason Admit Date/Time Oct 05, 2018 at 22:30 Initial Consult Date 10/06/18 Type of Consult id Requesting Provider: LEON CORONA MD Date/Time of Note DATE: 10/07/18 TIME: 15:28 24 HR Interval Summary Free Text/Dictation per nursing. patient apparently produced a blood clot that she coughed up Exam/Review of Systems Exam Vitals Vital Signs Date Temp Pulse Resp B/P (MAP) Pulse Ox O2 O2 Flow FiO2 Time Delivery Rate 10/06/18 16 113/55 19:56 (74) 10/06/18 98.4 80 99 14:51 10/05/18 Room Air 23:33 Intake and Output 10/06/18 10/06/18 10/07/18 1515:00 23:00 07:00 IntakeIntake Total 1040 ml 360 ml BalanceBalance 1040 ml 360 ml Exam patient noted to have dried blood on chin. she says from heart cath earlier Constitutional: alert Psych: no complaints Head: normocephalic, atraumatic Eyes: nl conjunctiva, EOMI, nl lids, nl sclera, PERRL Respiratory: clear to auscultation, normal air movement Cardiovascular: regular rate and rhythm, nl pulses Gastrointestinal: soft, nl liver, spleen, non-tender Results Result Diagram: 10/06/18 0834 10/06/18 0834 Medications Medication Current Medications IV Flush (NS 3 ml) 3 ml PER PROTOCOL IV ; Start 10/06/18 at 00:00 Ondansetron HCl (Zofran Inj) 4 mg Q6H PRN IV NAUSEA/VOMITING Last administered on 10/06/18 14:57; Admin Dose 4 MG; Start 10/06/18 at 00:00 Acetaminophen (Tylenol Tab) 650 mg Q6H PRN PO .PAIN 1-3 OR TEMP; Start 10/06/18 at 00:00 Acetaminophen (Tylenol Supp) 650 mg Q6H PRN [place] .PAIN 1-3 OR TEMP; Start 10/06/18 at 00:00 Docusate Sodium (Colace) 100 mg Q12H PRN PO .CONSTIPATION; Start 10/06/18 at 00:00 Magnesium Hydroxide (Milk Of Mag) 30 ml DAILY PRN PO .CONSTIPATION; Start 10/06/18 at 00:00 Bisacodyl (Dulcolax) 5 mg DAILY PRN PO .CONSTIPATION; Start 10/06/18 at 00:00 Famotidine (Pepcid) 20 mg Q12 PO Last administered on 10/07/18 08:03; Admin Dose 20 MG; Start 10/06/18 at 09:00 Cholecalciferol (Vitamin D) 2,000 unit DAILY PO Last administered on 10/07/18 12:06; Admin Dose 2,000 UNIT; Start 10/06/18 at 09:00 Lorazepam (Ativan) 2 mg BID PRN PO ANXIETY Last administered on 10/07/18 08:10; Admin Dose 2 MG; Start 10/06/18 at 00:00 Pantoprazole (Protonix Tab) 40 mg AC BREAKFAST PO Last administered on 10/06/18 08:09; Admin Dose 40 MG; Start 10/06/18 at 07:00 Potassium Chloride (Klor-Con 20) 20 meq DAILY PO Last administered on 10/07/18 08:02; Admin Dose 20 MEQ; Start 10/06/18 at 09:00 Zolpidem Tartrate (Ambien) 10 mg QHS PRN PO INSOMNIA Last administered on 10/06/18 23:43; Admin Dose 10 MG; Start 10/06/18 at 00:00 Duloxetine HCl (Cymbalta) 30 mg DAILY PO Last administered on 10/07/18 08:10; Admin Dose 30 MG; Start 10/07/18 at 09:00 Acetaminophen/ Hydrocodone Bitart ([place] (5/325)) 1 tab Q4 PRN PO .MOD PAIN 4-6 Last administered on 10/07/18 12:06; Admin Dose 1 TAB; Start 10/06/18 at 11:00 Levothyroxine Sodium (Synthroid) 50 mcg BEFORE BREAKFAST PO ; Start 10/07/18 at 07:00 Baclofen (Lioresal) 10 mg TID PO Last administered on 10/07/18 12:06; Admin Dose 10 MG; Start 10/06/18 at 13:00 Gabapentin (Neurontin) 600 mg TID PO Last administered on 10/07/18 12:06; Admin Dose 600 MG; Start 10/06/18 at 13:00 Levofloxacin (Levaquin) 750 mg DAILY@06 PO Last administered on 10/06/18 12:31; Admin Dose 750 MG; Start 10/06/18 at 11:00 Lidocaine (Lidoderm) 1 patch DAILY TD ; Start 10/06/18 at 11:00 Senna/Docusate Sodium (Senokot-S) 2 tab HS PO Last administered on 10/06/18at 20:15; Admin Dose 2 TAB; Start 10/06/18 at 21:00 Polyethylene Glycol (Miralax) 17 gm DAILY PO ; Start 10/07/18 at 09:00 Menthol/Methyl Salicylate (Cm Whitman) 1 applic QID TOP ; Start 10/06/18 at 13:00 Oxymetazoline HCl (Afrin [place]) 2 spray BID NASAL ; Start 10/06/18 at 21:00 Lactobacillus Acidophilus/ Rhamnosus (Culturelle) 1 cap BID PO Last admini stered on 10/07/18 08:03; Admin Dose 1 CAP; Start 10/06/18 at 21:00 Promethazine HCl/ Codeine (Phenergan/ Codeine) 10 ml Q4H PRN PO COUGH; Start 10/06/18 at 11:00 Trazodone HCl (Desyrel) 50 mg BID PO Last administered on 10/07/18 08:03; Admin Dose 50 MG; Start 10/06/18 at 11:00 Zinc Sulfate (Zinc Sulfate) 220 mg DAILY PO Last administered on 10/07/18 08:09; Admin Dose 220 MG; Start 10/07/18 at 09:00 Nystatin (Nystatin Powder) 1 applic BID TOP ; Start 10/06/18 at 21:00 Diphenhydramine HCl (Benadryl) 25 mg Q6H PRN IV ITCHING Last administered on 10/06/18 21:17; Admin Dose 25 MG; Start 10/06/18 at 15:30 Ondansetron HCl (Zofran Tab) 4 mg Q6H PRN PO NAUSEA AND/OR VOMITING Last administered on 10/07/18 10:26; Admin Dose 4 MG; Start 10/07/18 at 00:30 Diphenhydramine HCl (Benadryl) 25 mg Q6H PRN PO ITCHING Last administered on 10/07/18 10:28; Admin Dose 25 MG; Start 10/07/18 at 00:30 AUREA MEDINA MD Oct 07, 2018 15:29
[2018-10-07 20:00] VITALS: BP 107/67; PULSE 68
[2018-10-07] MEDS: SENNA/DOCUSATE NA (8.6MG/50MG) TAB PO SCH (20:06)
[2018-10-07] MEDS: ZOLPIDEM 5 MG TAB PO PRN (20:56)
--- NOTE | 2018-10-07 21:28 | CONS ---
DATE OF ADMISSION: 10/05/2018 DATE OF CONSULTATION: REASON FOR CONSULTATION: Evaluation for an IVC filter removal. HISTORY OF PRESENT ILLNESS: This is a 52-year-old female status post a DVT, IVC filter, admitted bec ause of possible hemoptysis, currently being worked up for hemoptysis. The patient's IVC filter was put in 01/2018. She also suffers from beta thalassemia and anemia and has had a history of thyroid c ancer and Hodgkin's disease. PHYSICAL EXAMINATION: VITAL SIGNS: Blood pressure is 110/60, pulse is 80, respirations 18. CARDIOVASCULAR: Normal S1, S2. No murmurs, gallops or rubs. LUNGS: Clear. ABDOMEN: Soft. EXTREMITIES: Warm. IMPRESSION: Status post IVC filter placement. RECOMMENDATIONS: This IVC filter can be removed; however this should be removed when the patient is more stable. I discussed with the patient. All questions were answered. Dictated By: LEEANNA JOSEPH MD FM/NTS Conf#: [id number] DID#: [id number] CC: LEON CORONA MD;*EndCC*
[2018-10-08 02:00] VITALS: BP 107/69; PULSE 72; RESP 19
[2018-10-08] MEDS: HYDROCODONE/APAP (5/325) TAB PO PRN ×6 (02:03→22:09)
[2018-10-08] MEDS: PANTOPRAZOLE (EC) 40 MG TAB PO SCH (06:12)
[2018-10-08] MEDS: LEVOFLOXACIN 750 MG TABLET PO SCH (06:12)
[2018-10-08] MEDS: LEVOTHYROXINE 50 MCG TAB PO SCH (06:12)
[2018-10-08 07:31] VITALS: BP 102/64; PULSE 70; RESP 17
[2018-10-08] MEDS: LORAZEPAM 1 MG TAB PO PRN ×2 (08:01→20:23)
[2018-10-08] MEDS: OXYMETAZOLINE 0.05% 15 ML NAS SPRAY NASAL SCH ×2 (09:00→20:31)
[2018-10-08] MEDS: MENTHOL/METH SALICYLATE 30 GM OINT TOP SCH ×4 (09:00→20:31)
[2018-10-08] MEDS: NYSTATIN 30 GM POWDER BTL TOP SCH ×2 (09:00→20:31)
[2018-10-08] MEDS: FAMOTIDINE 20 MG TAB PO SCH ×2 (09:22→20:24)
[2018-10-08] MEDS: POLYETHYLENE GLYCOL 17 GM PACKET PO SCH (09:22)
[2018-10-08] MEDS: traZODone 50 MG TAB PO SCH ×2 (09:22→20:24)
[2018-10-08] MEDS: BACLOFEN 10 MG TAB PO SCH ×3 (09:22→20:24)
[2018-10-08] MEDS: CHOLECALCIFEROL 1,000 UNIT TAB PO SCH (09:22)
[2018-10-08] MEDS: GABAPENTIN 300 MG CAP PO SCH ×3 (09:23→20:23)
[2018-10-08] MEDS: DULOXETINE 30 MG CAP DR PO SCH (09:23)
[2018-10-08] MEDS: LACTOBACILLUS RHAMNOSUS CAP PO SCH ×2 (09:23→20:23)
[2018-10-08] MEDS: ZINC SULFATE 220 MG CAP PO SCH (09:23)
[2018-10-08] MEDS: POTASSIUM CHLORIDE (SR) 20 MEQ TAB PO SCH (09:23)
[2018-10-08] MEDS: LIDOCAINE 5% PATCH TD SCH (09:24)
[2018-10-08] MEDS: DIPHENHYDRAMINE 25 MG CAP PO PRN ×3 (10:38→23:39)
[2018-10-08 14:02] VITALS: BP 116/71; PULSE 97; RESP 18
--- NOTE | 2018-10-08 17:17 | CONS ---
Assessment/Plan Assessment/Plan Hospital Course (Demo Recall) sepsis, endovascular infection - recurrent sepsis 09/19/2018 due to bacteremia - recurrent bacteremia due to stenotrophomonas - s/p bacteremia d/t Coag Neg Staph and Stenotrophomonas maltophilia on 09/01/2018 and 09/02/2018; took daptomycin and levofloxacin - h/o "bacteremia due to enterococci" according to progress notes at [facility], but the actual microbiology report indicated blood culture was positive for ESBL+E. coli - h/o fungemia due to kaley glabrata, sensitive to fluconazole and to micafungin/caspofungin at [facility] - transthoracic echo on 09/04/2018 and 09/23/2018 had no mention on valvular vegetation pulm - persistent hemoptysis ?ectatic disease, pulmonary neuroendocrine tumor - Pt reports negative PPD at [facility] - WBC tagged scan on 09/24/2018 showed no signal of the chest - according to the microbiology report at [facility], Pt had ESBL+E. coli in her respiratory culture. Sputum cultures for AFB and fungi were negative at 8 weeks and at 4 weeks respectively at [facility] - Pt had negative bronchoscopy in 05/2018 at [facility], another at [facility] in 2018, and on 08/25/2018 at [facility] (no e/o bronchial airway bleeding according to Dr. Bello) - Numerous tiny lung nodules, increased in number from the chest CT dated May 22, 2018, with largest measuring 0.3 cm in the left apex, CT on 09/10/2018 indicated: stable bilateral micronodules dating back to examination of at least 01/29/2017; RLL fibrosis, CT on 09/22/2018 noted numerous small bilateral peripheral pulmonary nodules and scattered ground-glass opacities - Kaley albicans in sputum culture on 08/28/2018 and 09/21/2018, a colonizer - so far: aspergillus antibody not detected, HIV negative, coccidioidomycosis serology negative, TB Quant Gold negative, 1,3 beta d glucan negative, procalc 09/01/18 was 0.30; Sputum for O&P was negative, lung scan on 09/23/2018 had low prob of PE, GI - Delgado-colitis per CT 08/13/18 - S/p diarrhea on 09/06/18 - s/p EGD on 09/10/2018: no GI bleeding noted, reportedly completely normal - S/p sigmoidoscopy with biopsy 08/17/2018; path showed no e/o colitis or malignancy from transverse colon and rectum biopsies - S/p bloody diarrhea d/t Giardia; Pt took metronidazole for Giardia (08/14/2018-08/21/2018) in 07/2018. - H/o C diff toxin negative PCR positive status at [facility]. Took a course of Fidaxomyxin x 10 days. C. diff was negative on 08/14/2018 at [facility] - H/o cholecystectomy - Stool for O&P was negative 09/12/18 - now s/p recent admit at [facility] for apparent bloody stools heme/oncology - recurrent DVT despite IVC filter: DVT of R proximal mid femoral veins, partial DVT of R distal femoral vein on SHARON 09/19/2018 - S/p CT guided bone marrow aspiration and biopsy 08/20/2018 - Microcytic anemia requiring PRBC d/t acute blood loss - Electrophoresis 08/19/18 showed: Evaluation suggests beta thalassemia trait with anemia. Iron deficiency must be ruled out. - H/o BUE and RLE DVT, s/p IVC filter in January 2018 - H/o Hodgkin lymphoma diagnosed in 2006 - H/o thyroid CA diagnosed in 2005, s/p resection, chemo and XRT - IVC filter placement - Patient reports that approximately 2 years ago (2017?) she had an abnormal mammogram of Left breast and that she was scheduled for a biopsy approximately 4 months ago but d/t insurance change did not receive the biopsy, on 09/13/18 patient reported brown drainage from left nipple x2 nights - +Family hx of cancer (father of stomach CA, mother of lymphoma, paternal uncle had breast CA and 12 yo daughter has h/o brain tumor s/p surgery and resulting blindness) , renal - recurrent UTI - h/o UTI due to ESBL+E. coli - S/p PO levofloxacin (08/24/2018-08/28/2018) for probable UTI other conditions - s/p a painful ulcer at frenulum, resolving. According to Pt, topical steroid would worsen the pain. HIV negative, RPR non reactive, herpes 1 and 2 by PCR not detected; s/p trial of PO valacyclovir (08/27/2018-09/01/2018) - s/p bilateral conjunctivitis - improved s/p Cipro eye drops (08/18/18-08/23/18) - myalgia with hemoptysis, CK level stable (<20 on 09/03/2018, 39 on 09/10/2018, and <20 on 09/17/2018) - Hypothyroidism - HLD - S/p hypokalemia - OA - depression/anxiety - H/o x2 - Allergy to PCN and vancomycin (reaction unknown) Previously Pt took: daptomycin (09/02/2018-09/17/2018, 09/19/2018-), cefepime (09/03/18 - 09/05/18), meropenem (09/19/2018-09/21/2018) Recommendations: - Monitor off antibiotics - Agree with checking blood clot specimen to determine if blood - in process - Will follow closely with you Plan was d/w patient and with Dr. Hansen. Thank you Consultation Date/Type/Reason Admit Date/Time Oct 05, 2018 at 22:30 Initial Consult Date 10/06/18 Type of Consult ID Requesting Provider: LEON CORONA MD Date/Time of Note DATE: 10/08/18 TIME: 17:13 24 HR Interval Summary Free Text/Dictation Per d/w patient, yesterday she spit out blood and had nausea. States when she is showering she loses hair. Otherwise ROS was negative. Exam/Review of Systems Exam Vitals Vital Signs Date Temp Pulse Resp B/P (MAP) Pulse Ox O2 O2 Flow FiO2 Time Delivery Rate 10/08/18 97.6 97 18 116/71 100 14:02 (86) 10/05/18 Room Air 23:33 Intake and Output 10/07/18 10/07/18 10/08/18 1515:00 23:00 07:00 IntakeIntake Total 760 ml 380 ml BalanceBalance 760 ml 380 ml Allergies Coded Allergies Iodinated Contrast- Oral and IV Dye (Verified Allergy, Severe, 08/20/18) Iodine and Iodide Containing Produc (Verified Allergy, Unknown, 08/13/18) Penicillins (Verified Allergy, Unknown, 08/13/18) ketorolac (Verified Allergy, Unknown, 08/13/18) morphine (Verified Allergy, Unknown, 08/13/18) vancomycin (Verified Allergy, Unknown, 08/13/18) Constitutional: alert, oriented, well developed Psych: no complaints, nl mood/affect Head: normocephalic, atraumatic Eyes: nl conjunctiva, nl lids, nl sclera (no thrush) ENMT: nl external ears & nose, nl nasal mucosa & septum, mucosa pink and moist (no thrush) Neck: supple, non-tender Respiratory: clear to auscultation, normal air movement Cardiovascular: regular rate and rhythm, nl pulses Gastrointestinal: soft, non-tender, bowel sounds (normoactive ) Musculoskeletal: nl extremities to inspection Extremities: normal pulses Neurological: nl mental status, nl speech, nl strength Skin: nl turgor; No rash or lesions Results Result Diagram: 10/07/18194010/07/181940 Results 24hrs Laboratory Tests Test 10/07/18 19:41 White Blood Count 6.4 # Red Blood Count 3.78 L Hemoglobin 9.3 L Hematocrit 29.3 L Mean Corpuscular Volume 77.5 L Mean Corpuscular Hemoglobin 24.6 L Mean Corpuscular Hemoglobin Concent 31.7 L Red Cell Distribution Width 18.2 H Platelet Count 215 # Mean Platelet Volume 10.5 H Immature Granulocytes % 0.300 Neutrophils % 57.6 Lymphocytes % 31.9 Monocytes % 7.4 Eosinophils % 2.2 Basophils % 0.6 Nucleated Red Blood Cells % 0.0 Immature Granulocytes # 0.020 Neutrophils # 3.7 Lymphocytes # 2.0 Monocytes # 0.5 Eosinophils # 0.1 Basophils # 0.0 Nucleated Red Blood Cells # 0.0 Prothrombin Time 11.9 Prothrombin Time Ratio 0.9 INR International Normalized Ratio 0.87 Activated Partial Thromboplast Time 24.8 Sodium Level 139 Potassium Level 4.1 Chloride Level 101 Carbon Dioxide Level 28 Anion Gap 10 Blood Urea Nitrogen 26 H Creatinine 0.56 Est Glomerular Filtrat Rate mL/min > 60 Glucose Level 130 Calcium Level 9.4 Phosphorus Level 5.1 H Magnesium Level 2.2 Total Bilirubin 0.4 Direct Bilirubin 0.00 Indirect Bilirubin 0.4 Aspartate Amino Transf (AST/SGOT) 25 Alanine Aminotransferase (ALT/SGPT) 20 Alkaline Phosphatase 84 Total Protein 7.4 Albumin 4.4 Globulin 3.00 Albumin/Globulin Ratio 1.46 Lipase 114 Thyroid Stimulating Hormone (TSH) 0.928 Medications Medication Current Medications IV Flush (NS 3 ml) 3 ml PER PROTOCOL IV ; Start 10/06/18 at 00:00 Ondansetron HCl (Zofran Inj) 4 mg Q6H PRN IV NAUSEA/VOMITING Last administered on 10/06/18 14:57; Admin Dose 4 MG; Start 10/06/18 at 00:00 Acetaminophen (Tylenol Tab) 650 mg Q6H PRN PO .PAIN 1-3 OR TEMP; Start 10/06/18 at 00:00 Acetaminophen (Tylenol Supp) 650 mg Q6H PRN [place] .PAIN 1-3 OR TEMP; Start 10/06/18 at 00:00 Docusate Sodium (Colace) 100 mg Q12H PRN PO .CONSTIPATION; Start 10/06/18 at 00:00 Magnesium Hydroxide (Milk Of Mag) 30 ml DAILY PRN PO .CONSTIPATION; Start 10/06/18 at 00:00 Bisacodyl (Dulcolax) 5 mg DAILY PRN PO .CONSTIPATION; Start 10/06/18 at 00:00 Famotidine (Pepcid) 20 mg Q12 PO Last administered on 10/08/18 09:22; Admin Dose 20 MG; Start 10/06/18 at 09:00 Cholecalciferol (Vitamin D) 2,000 unit DAILY PO Last administered on 10/08/18 09:22; Admin Dose 2,000 UNIT; Start 10/06/18 at 09:00 Lorazepam (Ativan) 2 mg BID PRN PO ANXIETY Last administered on 10/08/18 08:01; Admin Dose 2 MG; Start 10/06/18 at 00:00 Pantoprazole (Protonix Tab) 40 mg AC BREAKFAST PO Last administered on 10/08/18 06:12; Admin Dose 40 MG; Start 10/06/18 at 07:00 Potassium Chloride (Klor-Con 20) 20 meq DAILY PO Last administered on 10/08/18 09:23; Admin Dose 20 MEQ; Start 10/06/18 at 09:00 Zolpidem Tartrate (Ambien) 10 mg QHS PRN PO INSOMNIA Last administered on 10/07/18 20:56; Admin Dose 10 MG; Start 10/06/18 at 00:00 Duloxetine HCl (Cymbalta) 30 mg DAILY PO Last administered on 10/08/18 09:23; Admin Dose 30 MG; Start 10/07/18 at 09:00 Acetaminophen/ Hydrocodone Bitart ([place] (5/325)) 1 tab Q4 PRN PO .MOD PAIN 4-6 Last administered on 10/08/18 14:09; Admin Dose 1 TAB; Start 10/06/18 at 11:00 Levothyroxine Sodium (Synthroid) 50 mcg BEFORE BREAKFAST PO Last administered on 10/08/18 06:12; Admin Dose 50 MCG; Start 10/07/18 at 07:00 Baclofen (Lioresal) 10 mg TID PO Last administered on 10/08/18 12:31; Admin Dose 10 MG; Start 10/06/18 at 13:00 Gabapentin (Neurontin) 600 mg TID PO Last administered on 10/08/18 12:31; Admin Dose 600 MG; Start 10/06/18 at 13:00 Levofloxacin (Levaquin) 750 mg DAILY@06 PO Last administered on 10/08/18 06:12; Admin Dose 750 MG; Start 10/06/18 at 11:00 Lidocaine (Lidoderm) 1 patch DAILY TD Last administered on 10/08/18 09:24; Admin Dose 1 PATCH; Start 10/06/18 at 11:00 Senna/Docusate Sodium (Senokot-S) 2 tab HS PO Last administered on 10/07/18 20:06; Admin Dose 2 TAB; Start 10/06/18 at 21:00 Polyethylene Glycol (Miralax) 17 gm DAILY PO Last administered on 10/08/18 09:22; Admin Dose 17 GM; Start 10/07/18 at 09:00 Menthol/Methyl Salicylate (Cm Whitman) 1 applic QID TOP ; Start 10/06/18 at 13:00 Oxymetazoline HCl (Afrin [place]) 2 spray BID NASAL ; Start 10/06/18 at 21:00 Lactobacillus Acidophilus/ Rhamnosus (Culturelle) 1 cap BID PO Last administered on 10/08/18 09:23; Admin Dose 1 CAP; Start 10/06/18 at 21:00 Promethazine HCl/ Codeine (Phenergan/ Codeine) 10 ml Q4H PRN PO COUGH; Start 10/06/18 at 11:00 Trazodone HCl (Desyrel) 50 mg BID PO Last administered on 10/08/18 09:22; Admin Dose 50 MG; Start 10/06/18 at 11:00 Zinc Sulfate (Zinc Sulfate) 220 mg DAILY PO Last administered on 10/08/18 09:23; Admin Dose 220 MG; Start 10/07/18 at 09:00 Nystatin (Nystatin Powder) 1 applic BID TOP ; Start 10/06/18 at 21:00 Diphenhydramine HCl (Benadryl) 25 mg Q6H PRN IV ITCHING Last administered on 10/06/18 21:17; Admin Dose 25 MG; Start 10/06/18 at 15:30 Ondansetron HCl (Zofran Tab) 4 mg Q6H PRN PO NAUSEA AND/OR VOMITING Last administered on 10/07/18 10:26; Admin Dose 4 MG; Start 10/07/18 at 00:30 Diphenhydramine HCl (Benadryl) 25 mg Q6H PRN PO ITCHING Last administered on 10/08/18 16:56; Admin Dose 25 MG; Start 10/07/18 at 00:30 LAST GARNER NP Oct 08, 2018 17:17
[2018-10-08 19:44] VITALS: BP 105/63; PULSE 70; RESP 20
[2018-10-08] MEDS: SENNA/DOCUSATE NA (8.6MG/50MG) TAB PO SCH (20:23)
--- NOTE | 2018-10-08 20:23 | PN ---
Date/Time of Note Date/Time of Note DATE: 10/08/18 TIME: 20:19 Assessment/Plan VTE Prophylaxis Risk score (from Nsg)>0 risk: 6 SCD applied (from Nsg): No SCD contraindicated: low risk/ambulating Pharmacological prophylaxis: NA/contraindicated Pharm contraindication: bleeding Lines/Catheters IV Catheter Type (from Nrsg): Saline Lock Assessment/Plan Hospital Course A/P 1. Abd pain, crampy, diffuse. No known agg/ relieving factors. cdiff -ve. Stable observe 2. Chr Pain Syndrome, w pain seeking behavioral, cont alternative therapy. H/o of trigger point injection at [facility] 3. Ftt, transfer to snf soon 4. Suspected Sternotrophomonas line sepsis, PICC out. Cont 2 wks of po Levaquin 5. History of Hodgkin's disease? 6. History of thyroid cancer/ surgery? 7. Bilateral pulmonary micronodules; continue serial CTs. Coccidia titers sent 8. Rt lower lobe fibrosis? Observe, follow-up as outpatient 9. Rt lower ext DVT, likely due to immobility. IVC filter status post upper ext PICC assoc DVT. Anticoagulation vs continue filter. Check with vascular. 10. IVC filter status: Option Elite, [facility] . Appears retrievable; will discuss with vascular 11. Anemia with beta thalassemia trait. sp bone marrow. limit blood draws 12. Generalized anxiety disorder, poor insight, poor support system. Will be challenging to treat 13. 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 seen with a vial of stored "blood" in her purse on initial admission at [facility]. unable to obtain hematocrit; therefore wasnt blood. S: 10/06 Abd pain, crampy, diffuse. no agg factors. No fever. + diarrhea. Tolerating diet? Will attempt to find abn path from [facility]. Will attempt to contact patient's spokesperson Cristian Garcia [[phone]]. Will attempt to DC IVC filter if appropriate. 10/07: pulled out iv, refused new iv & am labs. c diff -ve. appr [facility] eval. 10/08: crampy abd pain. states her doc gives her norco. i discussed w her the trouble w narcotics & to seek alternatives to narcotics. O: vss PE No pallor Reg s1s2; no mrg Clear Bs+ mild tender; nd no RRG No edema Result Diagram: 10/07/18194010/07/181940 Exam/Review of Systems Exam Vitals Vital Signs Date Temp Pulse Resp B/P (MAP) Pulse Ox O2 O2 Flow FiO2 Time Delivery Rate 10/08/18 98.0 20 105/63 98 19:44 (77) 10/08/18 97 14:02 10/05/18 Room Air 23:33 Intake and Output 10/07/18 10/07/18 10/08/18 1515:00 23:00 07:00 IntakeIntake Total 760 ml 380 ml BalanceBalance 760 ml 380 ml Medications Medication Current Medications IV Flush (NS 3 ml) 3 ml PER PROTOCOL IV ; Start 10/06/18 at 00:00 Ondansetron HCl (Zofran Inj) 4 mg Q6H PRN IV NAUSEA/VOMITING Last administered on 10/06/18at 14:57; Admin Dose 4 MG; Start 10/06/18 at 00:00 Acetaminophen (Tylenol Tab) 650 mg Q6H PRN PO .PAIN 1-3 OR TEMP; Start 10/06/18 at 00:00 Acetaminophen (Tylenol Supp) 650 mg Q6H PRN [place] .PAIN 1-3 OR TEMP; Start at 00:00 Docusate Sodium (Colace) 100 mg Q12H PRN PO .CONSTIPATION; Start 10/06/18 at 00:00 Magnesium Hydroxide (Milk Of Mag) 30 ml DAILY PRN PO .CONSTIPATION; Start 10/06/18 at 00:00 Bisacodyl (Dulcolax) 5 mg DAILY PRN PO .CONSTIPATION; Start 10/06/18 at 00:00 Famotidine (Pepcid) 20 mg Q12 PO Last administered on 10/08/18at 09:22; Admin Dose 20 MG; Start 10/06/18 at 09:00 Cholecalciferol (Vitamin D) 2,000 unit DAILY PO Last administered on 10/08/18at 09:22; Admin Dose 2,000 UNIT; Start 10/06/18 at 09:00 Lorazepam (Ativan) 2 mg BID PRN PO ANXIETY Last administered on 10/08/18at 08:01; Admin Dose 2 MG; Start 10/06/18 at 00:00 Pantoprazole (Protonix Tab) 40 mg AC BREAKFAST PO Last administered on 10/08/18 06:12; Admin Dose 40 MG; Start 10/06/18 at 07:00 Potassium Chloride (Klor-Con 20) 20 meq DAILY PO Last administered on 10/08/18 09:23; Admin Dose 20 MEQ; Start 10/06/18 at 09:00 Zolpidem Tartrate (Ambien) 10 mg QHS PRN PO INSOMNIA Last administered on 10/07/18 20:56; Admin Dose 10 MG; Start 10/06/18 at 00:00 Duloxetine HCl (Cymbalta) 30 mg DAILY PO Last administered on 10/08/18 09:23; Admin Dose 30 MG; Start 10/07/18 at 09:00 Acetaminophen/ Hydrocodone Bitart ([place] (5/325)) 1 tab Q4 PRN PO .MOD PAIN 4-6 Last administered on 10/08/18 18:13; Admin Dose 1 TAB; Start 10/06/18 at 11:00 Levothyroxine Sodium (Synthroid) 50 mcg BEFORE BREAKFAST PO Last administered on 10/08/18 06:12; Admin Dose 50 MCG; Start 10/07/18 at 07:00 Baclofen (Lioresal) 10 mg TID PO Last administered on 10/08/18 12:31; Admin Dose 10 MG; Start 10/06/18 at 13:00 Gabapentin (Neurontin) 600 mg TID PO Last administered on 10/08/18 12:31; Admin Dose 600 MG; Start 10/06/18 at 13:00 Levofloxacin (Levaquin) 750 mg DAILY@06 PO Last administered on 10/08/18 06:12; Admin Dose 750 MG; Start 10/06/18 at 11:00 Lidocaine (Lidoderm) 1 patch DAILY TD Last administered on 10/08/18 09:24; Adm in Dose 1 PATCH; Start 10/06/18 at 11:00 Senna/Docusate Sodium (Senokot-S) 2 tab HS PO Last administered on 10/07/18 20:06; Admin Dose 2 TAB; Start 10/06/18 at 21:00 Polyethylene Glycol (Miralax) 17 gm DAILY PO Last administered on 10/08/18 09:22; Admin Dose 17 GM; Start 10/07/18 at 09:00 Menthol/Methyl Salicylate (Cm Whitman) 1 applic QID TOP ; Start 10/06/18 at 13:00 Oxymetazoline HCl (Afrin [place]) 2 spray BID NASAL ; Start 10/06/18 at 21:00 Lactobacillus Acidophilus/ Rhamnosus (Culturelle) 1 cap BID PO Last administered on 10/08/18 09:23; Admin Dose 1 CAP; Start 10/06/18 at 21:00 Promethazine HCl/ Codeine (Phenergan/ Codeine) 10 ml Q4H PRN PO COUGH; Start 10/06/18 at 11:00 Trazodone HCl (Desyrel) 50 mg BID PO Last administered on 10/08/18 09:22; Admin Dose 50 MG; Start 10/06/18 at 11:00 Zinc Sulfate (Zinc Sulfate) 220 mg DAILY PO Last administered on 10/08/18 09:23; Admin Dose 220 MG; Start 10/07/18 at 09:00 Nystatin (Nystatin Powder) 1 applic BID TOP ; Start 10/06/18 at 21:00 Diphenhydramine HCl (Benadryl) 25 mg Q6H PRN IV ITCHING Last administered on 10/06/18 21:17; Admin Dose 25 MG; Start 10/06/18 at 15:30 Ondansetron HCl (Zofran Tab) 4 mg Q6H PRN PO NAUSEA AND/OR VOMITING Last administered on 10/07/18 10:26; Admin Dose 4 MG; Start 10/07/18 at 00:30 Diphenhydramine HCl (Benadryl) 25 mg Q6H PRN PO ITCHING Last administered on 10/08/18 16:56; Admin Dose 25 MG; Start 10/07/18 at 00:30 LEON CORONA MD Oct 08, 2018 20:23
[2018-10-08] MEDS: ZOLPIDEM 5 MG TAB PO PRN (22:07)
[2018-10-09 01:48] VITALS: BP 110/67; PULSE 74; RESP 20
[2018-10-09] MEDS: HYDROCODONE/APAP (5/325) TAB PO PRN ×5 (03:43→20:38)
[2018-10-09] MEDS: LEVOFLOXACIN 750 MG TABLET PO SCH (06:24)
[2018-10-09] MEDS: PANTOPRAZOLE (EC) 40 MG TAB PO SCH (06:24)
[2018-10-09] MEDS: LEVOTHYROXINE 50 MCG TAB PO SCH (06:24)
[2018-10-09 08:04] VITALS: BP 114/68; PULSE 71; RESP 18
[2018-10-09] MEDS: LIDOCAINE 5% PATCH TD SCH (08:21)
[2018-10-09] MEDS: LORAZEPAM 1 MG TAB PO PRN ×2 (08:21→20:39)
[2018-10-09] MEDS: POLYETHYLENE GLYCOL 17 GM PACKET PO SCH (08:21)
[2018-10-09] MEDS: POTASSIUM CHLORIDE (SR) 20 MEQ TAB PO SCH (08:22)
[2018-10-09] MEDS: traZODone 50 MG TAB PO SCH ×2 (08:22→20:40)
[2018-10-09] MEDS: BACLOFEN 10 MG TAB PO SCH ×3 (08:22→20:40)
[2018-10-09] MEDS: CHOLECALCIFEROL 1,000 UNIT TAB PO SCH (08:22)
[2018-10-09] MEDS: GABAPENTIN 300 MG CAP PO SCH ×3 (08:22→20:40)
[2018-10-09] MEDS: FAMOTIDINE 20 MG TAB PO SCH (08:22)
[2018-10-09] MEDS: DULOXETINE 30 MG CAP DR PO SCH (08:22)
[2018-10-09] MEDS: MENTHOL/METH SALICYLATE 30 GM OINT TOP SCH ×4 (08:23→21:00)
[2018-10-09] MEDS: NYSTATIN 30 GM POWDER BTL TOP SCH ×2 (08:23→20:41)
[2018-10-09] MEDS: ZINC SULFATE 220 MG CAP PO SCH (08:23)
[2018-10-09] MEDS: OXYMETAZOLINE 0.05% 15 ML NAS SPRAY NASAL SCH ×2 (08:24→21:00)
[2018-10-09] MEDS: LACTOBACILLUS RHAMNOSUS CAP PO SCH ×2 (08:24→21:42)
--- NOTE | 2018-10-09 12:04 | CONS ---
Assessment/Plan Assessment/Plan Assessment/Plan (Daily) sepsis, endovascular infection- WBC 9.3 - recurrent sepsis 09/19/2018 due to bacteremia - recurrent bacteremia due to stenotrophomonas - s/p bacteremia d/t Coag Neg Staph and Stenotrophomonas maltophilia on 09/01/2018 and 09/02/2018; took daptomycin and levofloxacin - h/o "bacteremia due to enterococci" according to progress notes at [facility], but the actual microbiology report indicated blood culture was positive for ESBL+E. coli - h/o fungemia due to kaley glabrata, sensitive to fluconazole and to micafungin/caspofungin at [facility] - transthoracic echo on 09/04/2018 and 09/23/2018 had no mention on valvular vegetation pulm - persistent hemoptysis ?ectatic disease, pulmonary neuroendocrine tumor - Pt reports negative PPD at [facility] - WBC tagged scan on 09/24/2018 showed no signal of the chest - according to the microbiology report at [facility], Pt had ESBL+E. coli in her respiratory culture. Sputum cultures for AFB and fungi were negative at 8 weeks and at 4 weeks respectively at [facility] - Pt had negative bronchoscopy in 05/2018 at [facility], another at [facility] in 2018, and on 08/25/2018 at [facility] (no e/o bronchial airway bleeding according to Dr. Bello) - Numerous tiny lung nodules, increased in number from the chest CT dated May 22, 2018, with largest measuring 0.3 cm in the left apex, CT on 09/10/2018 indicated: stable bilateral micronodules dating back to examination of at least 01/29/2017; RLL fibrosis, CT on 09/22/2018 noted numerous small bilateral peripheral pulmonary nodules and scattered ground-glass opacities - Kaley albicans in sputum culture on 08/28/2018 and 09/21/2018, a colonizer - so far: aspergillus antibody not detected, HIV negative, coccidioidomycosis serology negative, TB Quant Gold negative, 1,3 beta d glucan negative, procalc 09/01/18 was 0.30; Sputum for O&P was negative, lung scan on 09/23/2018 had low prob of PE, GI - Delgado-colitis per CT 08/13/18 - S/p diarrhea on 09/06/18 - s/p EGD on 09/10/2018: no GI bleeding noted, reportedly completely normal - S/p sigmoidoscopy with biopsy 08/17/2018; path showed no e/o colitis or malignancy from transverse colon and rectum biopsies - S/p bloody diarrhea d/t Giardia; Pt took metronidazole for Giardia (08/14/2018-08/21/2018) in 07/2018. - H/o C diff toxin negative PCR positive status at [facility]. Took a course of Fidaxomyxin x 10 days. C. diff was negative on 08/14/2018 at [facility] - H/o cholecystectomy - Stool for O&P was negative 09/12/18 - now s/p recent admit at [facility] for apparent bloody stools heme/oncology - recurrent DVT despite IVC filter: DVT of R proximal mid femoral veins, partial DVT of R distal femoral vein on [facility] 09/19/2018 - S/p CT guided bone marrow aspiration and biopsy 08/20/2018 - Microcytic anemia requiring PRBC d/t acute blood loss - Electrophoresis 08/19/18 showed: Evaluation suggests beta thalassemia trait with anemia. Iron deficiency must be ruled out. - H/o BUE and RLE DVT, s/p IVC filter in January 2018 - H/o Hodgkin lymphoma diagnosed in 2006 - H/o thyroid CA diagnosed in 2005, s/p resection, chemo and XRT - IVC filter placement - Patient reports that approximately 2 years ago (2017?) she had an abnormal mammogram of Left breast and that she was scheduled for a biopsy approximately 4 months ago but d/t insurance change did not receive the biopsy, on 09/13/18 patient reported brown drainage from left nipple x2 nights - +Family hx of cancer (father of stomach CA, mother of lymphoma, paternal uncle had breast CA and 12 yo daughter has h/o brain tumor s/p surgery and resulting blindness) , renal - recurrent UTI - h/o UTI due to ESBL+E. coli - S/p PO levofloxacin (08/24/2018-08/28/2018) for probable UTI other conditions - s/p a painful ulcer at frenulum, resolving. According to Pt, topical steroid would worsen the pain. HIV negative, RPR non reactive, herpes 1 and 2 by PCR not detected; s/p trial of PO valacyclovir (08/27/2018-09/01/2018) - s/p bilateral conjunctivitis - improved s/p Cipro eye drops (08/18/18-08/23/18) - myalgia with hemoptysis, CK level stable (<20 on 09/03/2018, 39 on 09/10/2018, and <20 on 09/17/2018) - Hypothyroidism - HLD - S/p hypokalemia - OA - depression/anxiety - H/o x2 - Allergy to PCN and vancomycin (reaction unknown) Previously Pt took: daptomycin (09/02/2018-09/17/2018, 09/19/2018-), cefepime (09/03/18 - 09/05/18), meropenem (09/19/2018-09/21/2018) Recommendations: - Monitor off antibiotics - Agree with checking blood clot specimen to determine if blood - in process - Will follow closely with you Plan was d/w patient and with Dr. Hansen. Consultation Date/Type/Reason Admit Date/Time Oct 05, 2018 at 22:30 Initial Consult Date 10/06/18 Type of Consult ID Requesting Provider: LEON CORONA MD Date/Time of Note DATE: 10/09/18 TIME: 12:02 24 HR Interval Summary Free Text/Dictation NAD sitting up in bed afebrile; WBC wnl denies any cough; nausea/vomitting no new issues reported last night per staff Constitutional: requiring O2 Detailed Summary Eyes: no complaints ENT: no complaints Respiratory: no complaints Cardiovascular: no complaints Gastrointestinal: no complaints Genitourinary: no complaints Musculoskeletal: no complaints Skin: no complaints Neurologic: no complaints Endocrine: no complaints Lymphatic: no complaints Psychological: nl mood/affect Immunologic: no complaints Exam/Review of Systems Exam Vitals Vital Signs Date Temp Pulse Resp B/P (MAP) Pulse Ox O2 O2 Flow FiO2 Time Delivery Rate 10/09/18 98.4 71 18 114/68 100 08:04 (83) 10/05/18 Room Air 23:33 Intake and Output 10/08/18 10/08/18 10/09/18 1515:00 23:00 07:00 IntakeIntake Total 400 ml 860 ml BalanceBalance 400 ml 860 ml Constitutional: alert Psych: nl mood/affect Head: atraumatic Eyes: EOMI, nl lids, nl sclera Respiratory: clear to auscultation Cardiovascular: nl pulses Gastrointestinal: soft, non-tender Musculoskeletal: nl extremities to inspection Extremities: normal pulses Neurological: nl speech Skin: nl turgor Lymph: nontender Results Result Diagram: 10/07/18194010/07/181940 Medications Medication Current Medications IV Flush (NS 3 ml) 3 ml PER PROTOCOL IV ; Start 10/06/18 at 00:00 Ondansetron HCl (Zofran Inj) 4 mg Q6H PRN IV NAUSEA/VOMITING Last administered on 10/06/18at 14:57; Admin Dose 4 MG; Start 10/06/18 at 00:00 Acetaminophen (Tylenol Tab) 650 mg Q6H PRN PO .PAIN 1-3 OR TEMP; Start 10/06/18 at 00:00 Acetaminophen (Tylenol Supp) 650 mg Q6H PRN [place] .PAIN 1-3 OR TEMP; Start 10/06/18 at 00:00 Docusate Sodium (Colace) 100 mg Q12H PRN PO .CONSTIPATION; Start 10/06/18 at 00:00 Magnesium Hydroxide (Milk Of Mag) 30 ml DAILY PRN PO .CONSTIPATION; Start 10/06/18 at 00:00 Bisacodyl (Dulcolax) 5 mg DAILY PRN PO .CONSTIPATION; Start 10/06/18 at 00:00 Famotidine (Pepcid) 20 mg Q12 PO Last administered on 10/09/18 08:22; Admin Dose 20 MG; Start 10/06/18 at 09:00 Cholecalciferol (Vitamin D) 2,000 unit DAILY PO Last administered on 10/09/18 08:22; Admin Dose 2,000 UNIT; Start 10/06/18 at 09:00 Lorazepam (Ativan) 2 mg BID PRN PO ANXIETY Last administered on 10/09/18 08:21; Admin Dose 2 MG; Start 10/06/18 at 00:00 Pantoprazole (Protonix Tab) 40 mg AC BREAKFAST PO Last administered on 10/09/18 06:24; Admin Dose 40 MG; Start 10/06/18 at 07:00 Potassium Chloride (Klor-Con 20) 20 meq DAILY PO Last administered on 10/09/18 08:22; Admin Dose 20 MEQ; Start 10/06/18 at 09:00 Zolpidem Tartrate (Ambien) 10 mg QHS PRN PO INSOMNIA Last administered on 10/08/18 22:07; Admin Dose 10 MG; Start 10/06/18 at 00:00 Duloxetine HCl (Cymbalta) 30 mg DAILY PO Last administered on 10/09/18 08:22; Admin Dose 30 MG; Start 10/07/18 at 09:00 Acetaminophen/ Hydrocodone Bitart ([place] (5/325)) 1 tab Q4 PRN PO .MOD PAIN 4-6 Last administered on 10/09/18 08:21; Admin Dose 1 TAB; Start 10/06/18 at 11:00 Levothyroxine Sodium (Synthroid) 50 mcg BEFORE BREAKFAST PO Last administered on 10/09/18 06:24; Admin Dose 50 MCG; Start 10/07/18 at 07:00 Baclofen (Lioresal) 10 mg TID PO Last administered on 10/09/18 08:22; Admin Dose 10 MG; Start 10/06/18 at 13:00 Gabapentin (Neurontin) 600 mg TID PO Last administered on 10/09/18 08:22; Admin Dose 600 MG; Start 10/06/18 at 13:00 Levofloxacin (Levaquin) 750 mg DAILY@06 PO Last administered on 10/09/18 06:24; Admin Dose 750 MG; Start 10/06/18 at 11:00 Lidocaine (Lidoderm) 1 patch DAILY TD Last administered on 10/09/18 08:21; Admin Dose 1 PATCH; Start 10/06/18 at 11:00 Senna/Docusate Sodium (Senokot-S) 2 tab HS PO Last administered on 10/08/18 20:23; Admin Dose 2 TAB; Start 10/06/18 at 21:00 Polyethylene Glycol (Miralax) 17 gm DAILY PO Last administered on 10/09/18 08:21; Admin Dose 17 GM; Start 10/07/18 at 09:00 Menthol/Methyl Salicylate (Cm Whitman) 1 applic QID TOP ; Start 10/06/18 at 13:00 Oxymetazoline HCl (Afrin [place]) 2 spray BID NASAL ; Start 10/06/18 at 21:00 Lactobacillus Acidophilus/ Rhamnosus (Culturelle) 1 cap BID PO Last administered on 10/08/18 20:23; Admin Dose 1 CAP; Start 10/06/18 at 21:00 Promethazine HCl/ Codeine (Phenergan/ Codeine) 10 ml Q4H PRN PO COUGH; Start 10/06/18 at 11:00 Trazodone HCl (Desyrel) 50 mg BID PO Last administered on 10/09/18 08:22; Admin Dose 50 MG; Start 10/06/18 at 11:00 Zinc Sulfate (Zinc Sulfate) 220 mg DAILY PO Last administered on 10/09/18 08:23; Admin Dose 220 MG; Start 10/07/18 at 09:00 Nystatin (Nystatin Powder) 1 applic BID TOP Last administered on 10/09/18 08:23; Admin Dose 1 APPLIC; Start 10/06/18 at 21:00 Diphenhydramine HCl (Benadryl) 25 mg Q6H PRN IV ITCHING Last administered on 10/06/18 21:17; Admin Dose 25 MG; Start 10/06/18 at 15:30 Ondansetron HCl (Zofran Tab) 4 mg Q6H PRN PO NAUSEA AND/OR VOMITING Last administered on 10/07/18 10:26; Admin Dose 4 MG; Start 10/07/18 at 00:30 Diphenhydramine HCl (Benadryl) 25 mg Q6H PRN PO ITCHING Last administered on 10/08/18 23:39; Admin Dose 25 MG; Start 10/07/18 at 00:30 SULEMA WRIGHT Oct 09, 2018 12:04
[2018-10-09] MEDS: DIPHENHYDRAMINE 25 MG CAP PO PRN ×2 (12:34→23:33)
[2018-10-09 14:24] VITALS: BP 138/75; PULSE 50; RESP 18
[2018-10-09 20:00] VITALS: BP 122/65; PULSE 73; RESP 17
--- NOTE | 2018-10-09 20:27 | PN ---
Date/Time of Note Date/Time of Note DATE: 10/09/18 TIME: 20:26 Assessment/Plan VTE Prophylaxis Risk score (from Nsg)>0 risk: 6 SCD applied (from Nsg): No SCD contraindicated: low risk/ambulating Pharmacological prophylaxis: NA/contraindicated Pharm contraindication: bleeding Lines/Catheters IV Catheter Type (from Nrsg): Saline Lock Assessment/Plan Hospital Course A/P 1. Abd pain, crampy, diffuse. No known agg/ relieving factors. cdiff -ve. Stable observe 2. Chr Pain Syndrome, w pain seeking behavioral, cont alternative therapy. H/o of trigger point injection at [facility] 3. Ftt, transfer to snf soon 4. Suspected Sternotrophomonas line sepsis, PICC out. Cont 2 wks of po Levaquin 5. History of Hodgkin's disease? 6. History of thyroid cancer/ surgery? 7. Bilateral pulmonary micronodules; continue serial CTs. Coccidia titers sent 8. Rt lower lobe fibrosis? Observe, follow-up as outpatient 9. Rt lower ext DVT, likely due to immobility. IVC filter status post upper ext PICC assoc DVT. Anticoagulation vs continue filter. Check with vascular. 10. IVC filter status: [facility], [facility] . Appears retrievable; will discuss with vascular 11. Anemia with beta thalassemia trait. sp bone marrow. limit blood draws 12. Generalized anxiety disorder, poor insight, poor support system. Will be challenging to treat 13. 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 seen with a vial of stored "blood" in her purse on initial admission at [facility]. unable to obtain hematocrit; therefore wasnt blood. S: 10/06 Abd pain, crampy, diffuse. no agg factors. No fever. + diarrhea. Tolerating diet? Will attempt to find abn path from [facility]. Will attempt to contact patient's spokesperson Cristian Garcia [[phone]]. Will attempt to DC IVC filter if appropriate. 10/07: pulled out iv, refused new iv & am labs. c diff -ve. appr [facility] eval. 10/08: crampy abd pain. states her doc gives her norco. i discussed w her the trouble w narcotics & to seek alternatives to narcotics. 10/09: doing ok O: vss PE No pallor Reg s1s2; no mrg Clear Bs+ mild tender; nd no RRG No edema Result Diagram: 10/07/18194010/07/181940 Exam/Review of Systems Exam Vitals Vital Signs Date Temp Pulse Resp B/P (MAP) Pulse Ox O2 O2 Flow FiO2 Time Delivery Rate 10/09/18 97.8 73 17 122/65 98 20:00 (84) 10/05/18 Room Air 23:33 Intake and Output 10/08/18 10/08/18 10/09/18 1414:59 22:59 06:59 IntakeIntake Total 400 ml 860 ml BalanceBalance 400 ml 860 ml Medications Medication Current Medications IV Flush (NS 3 ml) 3 ml PER PROTOCOL IV ; Start 10/06/18 at 00:00 Ondansetron HCl (Zofran Inj) 4 mg Q6H PRN IV NAUSEA/VOMITING Last administered on 10/06/18at 14:57; Admin Dose 4 MG; Start 10/06/18 at 00:00 Acetaminophen (Tylenol Tab) 650 mg Q6H PRN PO .PAIN 1-3 OR TEMP; Start 10/06/18 at 00:00 Acetaminophen (Tylenol Supp) 650 mg Q6H PRN [place] .PAIN 1-3 OR TEMP; Start 10/06/18 at 00:00 Docusate Sodium (Colace) 100 mg Q12H PRN PO .CONSTIPATION; Start 10/06/18 at 00:00 Magnesium Hydroxide (Milk Of Mag) 30 ml DAILY PRN PO .CONSTIPATION; Start 10/06/18 at 00:00 Bisacodyl (Dulcolax) 5 mg DAILY PRN PO .CONSTIPATION; Start 10/06/18 at 00:00 Famotidine (Pepcid) 20 mg Q12 PO Last administered on 10/09/18at 08:22; Admin Dose 20 MG; Start 10/06/18 at 09:00 Cholecalciferol (Vitamin D) 2,000 unit DAILY PO Last administered on 10/09/18at 08:22; Admin Dose 2,000 UNIT; Start 10/06/18 at 09:00 Lorazepam (Ativan) 2 mg BID PRN PO ANXIETY Last administered on 10/09/18at 08:21; Admin Dose 2 MG; Start 10/06/18 at 00:00 Pantoprazole (Protonix Tab) 40 mg AC BREAKFAST PO Last administered on 10/09/18 06:24; Admin Dose 40 MG; Start 10/06/18 at 07:00 Potassium Chloride (Klor-Con 20) 20 meq DAILY PO Last administered on 10/09/18 08:22; Admin Dose 20 MEQ; Start 10/06/18 at 09:00 Zolpidem Tartrate (Ambien) 10 mg QHS PRN PO INSOMNIA Last administered on 10/08/18 22:07; Admin Dose 10 MG; Start 10/06/18 at 00:00 Duloxetine HCl (Cymbalta) 30 mg DAILY PO Last administered on 10/09/18 08:22; Admin Dose 30 MG; Start 10/07/18 at 09:00 Acetaminophen/ Hydrocodone Bitart ([place] (5/325)) 1 tab Q4 PRN PO .MOD PAIN 4-6 Last administered on 10/09/18 16:12; Admin Dose 1 TAB; Start 10/06/18 at 11:00 Levothyroxine Sodium (Synthroid) 50 mcg BEFORE BREAKFAST PO Last administered on 10/09/18 06:24; Admin Dose 50 MCG; Start 10/07/18 at 07:00 Baclofen (Lioresal) 10 mg TID PO Last administered on 10/09/18 12:32; Admin Dose 10 MG; Start 10/06/18 at 13:00 Gabapentin (Neurontin) 600 mg TID PO Last administered on 10/09/18 12:32; Admin Dose 600 MG; Start 10/06/18 at 13:00 Levofloxacin (Levaquin) 750 mg DAILY@06 PO Last administered on 10/09/18 06:24; Admin Dose 750 MG; Start 10/06/18 at 11:00 Lidocaine (Lidoderm) 1 patch DAILY TD Last administered on 10/09/18 08:21; Admin Dose 1 PATCH; Start 10/06/18 at 11:00 Senna/Docusate Sodium (Senokot-S) 2 tab HS PO Last administered on 10/08/18 20:23; Admin Dose 2 TAB; Start 10/06/18 at 21:00 Polyethylene Glycol (Miralax) 17 gm DAILY PO Last administered on 10/09/18 08:21; Admin Dose 17 GM; Start 10/07/18 at 09:00 Menthol/Methyl Salicylate (Cm [place]) 1 applic QID TOP ; Start 10/06/18 at 13:00 Oxymetazoline HCl (Afrin [place]) 2 spray BID NASAL ; Start 10/06/18 at 21:00 Lactobacillus Acidophilus/ Rhamnosus (Culturelle) 1 cap BID PO Last administered on 10/08/18 20:23; Admin Dose 1 CAP; Start 10/06/18 at 21:00 Promethazine HCl/ Codeine (Phenergan/ Codeine) 10 ml Q4H PRN PO COUGH; Start 10/06/18 at 11:00 Trazodone HCl (Desyrel) 50 mg BID PO Last administered on 10/09/18 08:22; Admin Dose 50 MG; Start 10/06/18 at 11:00 Zinc Sulfate (Zinc Sulfate) 220 mg DAILY PO Last administered on 10/09/18 08:23; Admin Dose 220 MG; Start 10/07/18 at 09:00 Nystatin (Nystatin Powder) 1 applic BID TOP Last administered on 10/09/18 08:23; Admin Dose 1 APPLIC; Start 10/06/18 at 21:00 Diphenhydramine HCl (Benadryl) 25 mg Q6H PRN IV ITCHING Last administered on 10/06/18 21:17; Admin Dose 25 MG; Start 10/06/18 at 15:30 Ondansetron HCl (Zofran Tab) 4 mg Q6H PRN PO NAUSEA AND/OR VOMITING Last administered on 10/07/18 10:26; Admin Dose 4 MG; Start 10/07/18 at 00:30 Diphenhydramine HCl (Benadryl) 25 mg Q6H PRN PO ITCHING Last administered on 10/09/18 12:34; Admin Dose 25 MG; Start 10/07/18 at 00:30 LEON CORONA MD Oct 09, 2018 20:27
[2018-10-09] MEDS: SENNA/DOCUSATE NA (8.6MG/50MG) TAB PO SCH (20:39)
[2018-10-09] MEDS: ZOLPIDEM 5 MG TAB PO PRN (21:42)
[2018-10-10] MEDS: HYDROCODONE/APAP (5/325) TAB PO PRN ×5 (00:54→20:16)
[2018-10-10] MEDS: LEVOFLOXACIN 750 MG TABLET PO SCH (06:39)
[2018-10-10] MEDS: PANTOPRAZOLE (EC) 40 MG TAB PO SCH (06:39)
[2018-10-10] MEDS: LEVOTHYROXINE 50 MCG TAB PO SCH (06:40)
[2018-10-10 07:55] VITALS: BP 120/65; PULSE 63
[2018-10-10] MEDS: LORAZEPAM 1 MG TAB PO PRN ×2 (08:50→20:16)
[2018-10-10] MEDS: FAMOTIDINE 20 MG TAB PO SCH (08:50)
[2018-10-10] MEDS: POTASSIUM CHLORIDE (SR) 20 MEQ TAB PO SCH (08:51)
[2018-10-10] MEDS: traZODone 50 MG TAB PO SCH ×2 (08:51→20:17)
[2018-10-10] MEDS: DULOXETINE 30 MG CAP DR PO SCH (08:51)
[2018-10-10] MEDS: GABAPENTIN 300 MG CAP PO SCH ×3 (08:51→20:17)
[2018-10-10] MEDS: CHOLECALCIFEROL 1,000 UNIT TAB PO SCH (08:51)
[2018-10-10] MEDS: BACLOFEN 10 MG TAB PO SCH ×3 (08:51→20:17)
[2018-10-10] MEDS: ZINC SULFATE 220 MG CAP PO SCH (08:51)
[2018-10-10] MEDS: LACTOBACILLUS RHAMNOSUS CAP PO SCH ×2 (08:51→20:16)
[2018-10-10] MEDS: OXYMETAZOLINE 0.05% 15 ML NAS SPRAY NASAL SCH ×2 (08:52→20:20)
[2018-10-10] MEDS: LIDOCAINE 5% PATCH TD SCH (08:53)
[2018-10-10] MEDS: POLYETHYLENE GLYCOL 17 GM PACKET PO SCH (08:53)
[2018-10-10] MEDS: NYSTATIN 30 GM POWDER BTL TOP SCH ×2 (08:53→21:00)
[2018-10-10] MEDS: MENTHOL/METH SALICYLATE 30 GM OINT TOP SCH ×4 (08:54→21:00)
[2018-10-10] MEDS: DIPHENHYDRAMINE 25 MG CAP PO PRN (11:36)
--- NOTE | 2018-10-10 11:44 | CONS ---
Assessment/Plan Assessment/Plan Assessment/Plan (Daily) sepsis, endovascular infection- WBC 9.3 - recurrent sepsis 09/19/2018 due to bacteremia - recurrent bacteremia due to stenotrophomonas - s/p bacteremia d/t Coag Neg Staph and Stenotrophomonas maltophilia on 09/01/2018 and 09/02/2018; took daptomycin and levofloxacin - h/o "bacteremia due to enterococci" according to progress notes at [facility], but the actual microbiology report indicated blood culture was positive for ESBL+E. coli - h/o fungemia due to kaley glabrata, sensitive to fluconazole and to micafungin/caspofungin at [facility] - transthoracic echo on 09/04/2018 and 09/23/2018 had no mention on valvular vegetation pulm - persistent hemoptysis ?ectatic disease, pulmonary neuroendocrine tumor - Pt reports negative PPD at [facility] - WBC tagged scan on 09/24/2018 showed no signal of the chest - according to the microbiology report at [facility], Pt had ESBL+E. coli in her respiratory culture. Sputum cultures for AFB and fungi were negative at 8 weeks and at 4 weeks respectively at [facility] - Pt had negative bronchoscopy in 05/2018 at [facility], another at [facility] in 2018, and on 08/25/[address] [facility] (no e/o bronchial airway bleeding according to Dr. Bello) - Numerous tiny lung nodules, increased in number from the chest CT dated May 22, 2018, with largest measuring 0.3 cm in the left apex, CT on 09/10/2018 indicated: stable bilateral micronodules dating back to examination of at least 01/29/2017; RLL fibrosis, CT on 09/22/2018 noted numerous small bilateral peripheral pulmonary nodules and scattered ground-glass opacities - Kaley albicans in sputum culture on 08/28/2018 and 09/21/2018, a colonizer - so far: aspergillus antibody not detected, HIV negative, coccidioidomycosis serology negative, TB Quant Gold negative, 1,3 beta d glucan negative, procalc 09/01/18 was 0.30; Sputum for O&P was negative, lung scan on 09/23/2018 had low prob of PE, GI - Delgado-colitis per CT 08/13/18 - S/p diarrhea on 09/06/18 - s/p EGD on 09/10/2018: no GI bleeding noted, reportedly completely normal - S/p sigmoidoscopy with biopsy 08/17/2018; path showed no e/o colitis or malignancy from transverse colon and rectum biopsies - S/p bloody diarrhea d/t Giardia; Pt took metronidazole for Giardia (08/14/2018-08/21/2018) in 07/2018. - H/o C diff toxin negative PCR positive status at [facility]. Took a course of Fidaxomyxin x 10 days. C. diff was negative on 08/14/[address] [facility] - H/o cholecystectomy - Stool for O&P was negative 09/12/18 - now s/p recent admit at [facility] for apparent bloody stools heme/oncology - recurrent DVT despite IVC filter: DVT of R proximal mid femoral veins, partial DVT of R distal femoral vein on [facility] 09/19/2018 - S/p CT guided bone marrow aspiration and biopsy 08/20/2018 - Microcytic anemia requiring PRBC d/t acute blood loss - Electrophoresis 08/19/18 showed: Evaluation suggests beta thalassemia trait with anemia. Iron deficiency must be ruled out. - H/o BUE and RLE DVT, s/p IVC filter in January 2018 - H/o Hodgkin lymphoma diagnosed in 2006 - H/o thyroid CA diagnosed in 2005, s/p resection, chemo and XRT - IVC filter placement - Patient reports that approximately 2 years ago (2017?) she had an abnormal mammogram of Left breast and that she was scheduled for a biopsy approximately 4 months ago but d/t insurance change did not receive the biopsy, on 09/13/18 patient reported brown drainage from left nipple x2 nights - +Family hx of cancer (father of stomach CA, mother of lymphoma, paternal uncle had breast CA and 12 yo daughter has h/o brain tumor s/p surgery and resulting blindness) , renal - recurrent UTI - h/o UTI due to ESBL+E. coli - S/p PO levofloxacin (08/24/2018-08/28/2018) for probable UTI other conditions - s/p a painful ulcer at frenulum, resolving. According to Pt, topical steroid would worsen the pain. HIV negative, RPR non reactive, herpes 1 and 2 by PCR not detected; s/p trial of PO valacyclovir (08/27/2018-09/01/2018) - s/p bilateral conjunctivitis - improved s/p Cipro eye drops (08/18/18-08/23/18) - myalgia with hemoptysis, CK level stable (<20 on 09/03/2018, 39 on 09/10/2018, and <20 on 09/17/2018) - Hypothyroidism - HLD - S/p hypokalemia - OA - depression/anxiety - H/o x2 - Allergy to PCN and vancomycin (reaction unknown) Previously Pt took: daptomycin (09/02/2018-09/17/2018, 09/19/2018-), cefepime (09/03/18 - 09/05/18), meropenem (09/19/2018-09/21/2018) Recommendations: - Monitor off antibiotics - Agree with checking blood clot specimen to determine if blood - in process - Will follow closely with you Plan was d/w patient and with Dr. Hansen. Consultation Date/Type/Reason Admit Date/Time Oct 05, 2018 at 22:30 Initial Consult Date 10/06/18 Type of Consult ID Requesting Provider: LEON CORONA MD Date/Time of Note DATE: 10/10/18 TIME: 11:43 24 HR Interval Summary Free Text/Dictation NAD afebrile; WBC wnl denies any cough; nausea/vomitting seems comfortable no new issues reported last night per staff Constitutional: improved Detailed Summary ENT: no complaints Respiratory: no complaints Cardiovascular: no complaints Gastrointestinal: no complaints Genitourinary: no complaints Musculoskeletal: no complaints Skin: no complaints Neurologic: no complaints Endocrine: no complaints Lymphatic: no complaints Psychological: nl mood/affect Exam/Review of Systems Exam Vitals Vital Signs Date Temp Pulse Resp B/P (MAP) Pulse Ox O2 O2 Flow FiO2 Time Delivery Rate 10/10/18 98.4 63 120/65 100 Room Air 07:55 (83) 10/09/18 17 20:00 Intake and Output 10/09/18 10/09/18 10/10/18 1414:59 22:59 06:59 IntakeIntake Total 700 ml 600 ml 620 ml BalanceBalance 700 ml 600 ml 620 ml Constitutional: alert, oriented Psych: nl mood/affect Head: normocephalic Eyes: EOMI, nl lids, nl sclera ENMT: nl external ears & nose Neck: supple Respiratory: clear to auscultation Cardiovascular: nl pulses Gastrointestinal: soft, non-tender Musculoskeletal: nl extremities to inspection Extremities: normal pulses Neurological: nl mental status, nl speech Skin: nl turgor Lymph: nontender Results Result Diagram: 10/07/18194010/07/181940 Medications Medication Current Medications IV Flush (NS 3 ml) 3 ml PER PROTOCOL IV ; Start 10/06/18 at 00:00 Ondansetron HCl (Zofran Inj) 4 mg Q6H PRN IV NAUSEA/VOMITING Last administered on 10/06/18at 14:57; Admin Dose 4 MG; Start 10/06/18 at 00:00 Acetaminophen (Tylenol Tab) 650 mg Q6H PRN PO .PAIN 1-3 OR TEMP; Start 10/06/18 at 00:00 Acetaminophen (Tylenol Supp) 650 mg Q6H PRN [place] .PAIN 1-3 OR TEMP; Start 09/24 10/12 at 00:00 Docusate Sodium (Colace) 100 mg Q12H PRN PO .CONSTIPATION; Start 10/06/18 at 00:00 Magnesium Hydroxide (Milk Of Mag) 30 ml DAILY PRN PO .CONSTIPATION; Start 10/06/18 at 00:00 Bisacodyl (Dulcolax) 5 mg DAILY PRN PO .CONSTIPATION; Start 10/06/18 at 00:00 Cholecalciferol (Vitamin D) 2,000 unit DAILY PO Last administered on 10/10/18at 08:51; Admin Dose 2,000 UNIT; Start 10/06/18 at 09:00 Lorazepam (Ativan) 2 mg BID PRN PO ANXIETY Last administered on 10/10/18at 08:50; Admin Dose 2 MG; Start 10/06/18 at 00:00 Pantoprazole (Protonix Tab) 40 mg AC BREAKFAST PO Last administered on 10/10/18at 06:39; Admin Dose 40 MG; Start 10/06/18 at 07:00 Potassium Chloride (Klor-Con 20) 20 meq DAILY PO Last administered on 10/10/18at 08:51; Admin Dose 20 MEQ; Start 10/06/18 at 09:00 Zolpidem Tartrate (Ambien) 10 mg QHS PRN PO INSOMNIA Last administered on 10/09/18 21:42; Admin Dose 10 MG; Start 10/06/18 at 00:00 Duloxetine HCl (Cymbalta) 30 mg DAILY PO Last administered on 10/10/18 08:51; Admin Dose 30 MG; Start 10/07/18 at 09:00 Acetaminophen/ Hydrocodone Bitart ([place] (5/325)) 1 tab Q4 PRN PO .MOD PAIN 4-6 Last administered on 10/10/18 11:36; Admin Dose 1 TAB; Start 10/06/18 at 11:00 Levothyroxine Sodium (Synthroid) 50 mcg BEFORE BREAKFAST PO Last administered on 10/10/18 06:40; Admin Dose 50 MCG; Start 10/07/18 at 07:00 Baclofen (Lioresal) 10 mg TID PO Last administered on 10/10/18 08:51; Admin Dose 10 MG; Start 10/06/18 at 13:00 Gabapentin (Neurontin) 600 mg TID PO Last administered on 10/10/18 08:51; Admin Dose 600 MG; Start 10/06/18 at 13:00 Levofloxacin (Levaquin) 750 mg DAILY@06 PO Last administered on 10/10/18 06:39; Admin Dose 750 MG; Start 10/06/18 at 11:00 Lidocaine (Lidoderm) 1 patch DAILY TD Last administered on 10/10/18 08:53; Admin Dose 1 PATCH; Start 10/06/18 at 11:00 Senna/Docusate Sodium (Senokot-S) 2 tab HS PO Last administered on 10/09/18 20:39; Admin Dose 2 TAB; Start 10/06/18 at 21:00 Polyethylene Glycol (Miralax) 17 gm DAILY PO Last administered on 10/10/18 08:53; Admin Dose 17 GM; Start 10/07/18 at 09:00 Menthol/Methyl Salicylate (Cm [place]) 1 applic QID TOP ; Start 10/06/18 at 13:00 Oxymetazoline HCl (Afrin [place]) 2 spray BID NASAL ; Start 10/06/18 at 21:00 Lactobacillus Acidophilus/ Rhamnosus (Culturelle) 1 cap BID PO Last administered on 10/10/18 08:51; Admin Dose 1 CAP; Start 10/06/18 at 21:00 Promethazine HCl/ Codeine (Phenergan/ Codeine) 10 ml Q4H PRN PO COUGH; Start 10/06/18 at 11:00 Trazodone HCl (Desyrel) 50 mg BID PO Last administered on 10/10/18 08:51; Admin Dose 50 MG; Start 10/06/18 at 11:00 Zinc Sulfate (Zinc Sulfate) 220 mg DAILY PO Last administered on 10/10/18 08:51; Admin Dose 220 MG; Start 10/07/18 at 09:00 Nystatin (Nystatin Powder) 1 applic BID TOP Last administered on 10/10/18 08: 53; Admin Dose 1 APPLIC; Start 10/06/18 at 21:00 Diphenhydramine HCl (Benadryl) 25 mg Q6H PRN IV ITCHING Last administered on 10/06/18 21:17; Admin Dose 25 MG; Start 10/06/18 at 15:30 Ondansetron HCl (Zofran Tab) 4 mg Q6H PRN PO NAUSEA AND/OR VOMITING Last administered on 10/07/18 10:26; Admin Dose 4 MG; Start 10/07/18 at 00:30 Diphenhydramine HCl (Benadryl) 25 mg Q6H PRN PO ITCHING Last administered on 10/10/18 11:36; Admin Dose 25 MG; Start 10/07/18 at 00:30 Famotidine (Pepcid) 20 mg DAILY PO Last administered on 10/10/18 08:50; Admin Dose 20 MG; Start 10/10/18 at 09:00 SULEMA WRIGHT Oct 10, 2018 11:44
[2018-10-10 14:29] VITALS: BP 140/69; PULSE 77; RESP 18
--- NOTE | 2018-10-10 17:48 | CONS ---
Assessment/Plan Assessment/Plan Hospital Course (Demo Recall) EMR reviewed. Care coordinated and directed with CART ATTENDANT. consider completing Levaquin today as noted in medication emr and then monitoring off abx. Consultation Date/Type/Reason Admit Date/Time Oct 05, 2018 at 22:30 Initial Consult Date 10/06/18 Type of Consult id Requesting Provider: LEON CORONA MD Date/Time of Note DATE: 10/10/18 TIME: 17:47 Exam/Review of Systems Exam Vitals Vital Signs Date Temp Pulse Resp B/P (MAP) Pulse Ox O2 O2 Flow FiO2 Time Delivery Rate 10/10/18 98.5 77 18 140/69 97 Room Air 14:29 (92) Intake and Output 10/09/18 10/09/18 10/10/18 1515:00 23:00 07:00 IntakeIntake Total 700 ml 600 ml 620 ml BalanceBalance 700 ml 600 ml 620 ml Results Result Diagram: 10/07/18194010/07/181940 Medications Medication Current Medications IV Flush (NS 3 ml) 3 ml PER PROTOCOL IV ; Start 10/06/18 at 00:00 Ondansetron HCl (Zofran Inj) 4 mg Q6H PRN IV NAUSEA/VOMITING Last administered on 10/06/18at 14:57; Admin Dose 4 MG; Start 10/06/18 at 00:00 Acetaminophen (Tylenol Tab) 650 mg Q6H PRN PO .PAIN 1-3 OR TEMP; Start 10/06/18 at 00:00 Acetaminophen (Tylenol Supp) 650 mg Q6H PRN [place] .PAIN 1-3 OR TEMP; Start 10/06/18 at 00:00 Docusate Sodium (Colace) 100 mg Q12H PRN PO .CONSTIPATION; Start 10/06/18 at 00:00 Magnesium Hydroxide (Milk Of Mag) 30 ml DAILY PRN PO .CONSTIPATION; Start 10/06/18 at 00:00 Bisacodyl (Dulcolax) 5 mg DAILY PRN PO .CONSTIPATION; Start 10/06/18 at 00:00 Cholecalciferol (Vitamin D) 2,000 unit DAILY PO Last administered on 10/10/18at 08:51; Admin Dose 2,000 UNIT; Start 10/06/18 at 09:00 Lorazepam (Ativan) 2 mg BID PRN PO ANXIETY Last administered on 10/10/18 08:50; Admin Dose 2 MG; Start 10/06/18 at 00:00 Pantoprazole (Protonix Tab) 40 mg AC BREAKFAST PO Last administered on 10/10/18 06:39; Admin Dose 40 MG; Start 10/06/18 at 07:00 Potassium Chloride (Klor-Con 20) 20 meq DAILY PO Last administered on 10/10/18 08:51; Admin Dose 20 MEQ; Start 10/06/18 at 09:00 Zolpidem Tartrate (Ambien) 10 mg QHS PRN PO INSOMNIA Last administered on 10/09/18 21:42; Admin Dose 10 MG; Start 10/06/18 at 00:00 Duloxetine HCl (Cymbalta) 30 mg DAILY PO Last administered on 10/10/18 08:51; Admin Dose 30 MG; Start 10/07/18 at 09:00 Acetaminophen/ Hydrocodone Bitart ([place] (5/325)) 1 tab Q4 PRN PO .MOD PAIN 4-6 Last administered on 10/10/18 15:50; Admin Dose 1 TAB; Start 10/06/18 at 11:00 Levothyroxine Sodium (Synthroid) 50 mcg BEFORE BREAKFAST PO Last administered on 10/10/18 06:40; Admin Dose 50 MCG; Start 10/07/18 at 07:00 Baclofen (Lioresal) 10 mg TID PO Last administered on 10/10/18 13:47; Admin Dose 10 MG; Start 10/06/18 at 13:00 Gabapentin (Neurontin) 600 mg TID PO Last administered on 10/10/18 13:47; Admin Dose 600 MG; Start 10/06/18 at 13:00 Levofloxacin (Levaquin) 750 mg DAILY@06 PO Last administered on 10/10/18 06:39; Admin Dose 750 MG; Start 10/06/18 at 11:00 Lidocaine (Lidoderm) 1 patch DAILY TD Last administered on 10/10/18 08:53; Admin Dose 1 PATCH; Start 10/06/18 at 11:00 Senna/Docusate Sodium (Senokot-S) 2 tab HS PO Last administered on 10/09/18 20:39; Admin Dose 2 TAB; Start 10/06/18 at 21:00 Polyethylene Glycol (Miralax) 17 gm DAILY PO Last administered on 10/10/18 08:53; Admin Dose 17 GM; Start 10/07/18 at 09:00 Menthol/Methyl Salicylate (Cm Whitman) 1 applic QID TOP ; Start 10/06/18 at 13:00 Oxymetazoline HCl (Afrin [place]) 2 spray BID NASAL ; Start 10/06/18 at 21:00 Lactobacillus Acidophilus/ Rhamnosus (Culturelle) 1 cap BID PO Last administered on 10/10/18 08:51; Admin Dose 1 CAP; Start 10/06/18 at 21:00 Promethazine HCl/ Codeine (Phenergan/ Codeine) 10 ml Q4H PRN PO COUGH; Start 10/06/18 at 11:00 Trazodone HCl (Desyrel) 50 mg BID PO Last administered on 10/10/18 08:51; Admin Dose 50 MG; Start 10/06/18 at 11:00 Zinc Sulfate (Zinc Sulfate) 220 mg DAILY PO Last administered on 10/10/18 08:51; Admin Dose 220 MG; Start 10/07/18 at 09:00 Nystatin (Nystatin Powder) 1 applic BID TOP Last administered on 10/10/18 08:53; Admin Dose 1 APPLIC; Start 10/06/18 at 21:00 Diphenhydramine HCl (Benadryl) 25 mg Q6H PRN IV ITCHING Last administered on 10/06/18 21:17; Admin Dose 25 MG; Start 10/06/18 at 15:30 Ondansetron HCl (Zofran Tab) 4 mg Q6H PRN PO NAUSEA AND/OR VOMITING Last administered on 10/07/18 10:26; Admin Dose 4 MG; Start 10/07/18 at 00:30 Diphenhydramine HCl (Benadryl) 25 mg Q6H PRN PO ITCHING Last administered on 10/10/18 11:36; Admin Dose 25 MG; Start 10/07/18 at 00:30 Famotidine (Pepcid) 20 mg DAILY PO Last administered on 10/10/18 08:50; Admin Dose 20 MG; Start 10/10/18 at 09:00 AUREA MEDINA MD Oct 10, 2018 17:48
[2018-10-10 20:00] VITALS: BP 135/64; PULSE 73; RESP 19
--- NOTE | 2018-10-10 20:10 | PN ---
Date/Time of Note Date/Time of Note DATE: 10/10/18 TIME: 19:57 Assessment/Plan VTE Prophylaxis Risk score (from Nsg)>0 risk: 5 SCD applied (from Nsg): No SCD contraindicated: low risk/ambulating Pharmacological prophylaxis: NA/contraindicated Pharm contraindication: bleeding Lines/Catheters IV Catheter Type (from Nrsg): Saline Lock Assessment/Plan Hospital Course A/P 1. Abd pain, crampy, diffuse. No known agg/ relieving factors. cdiff -ve. Highly unlikely to be chr abd ischemia or porphyria. Stable observe 2. Chr Pain Syndrome, w pain seeking behavioral, cont alternative therapy. H/o of trigger point injection at [facility] 3. Ftt, transfer to snf soon 4. Suspected Sternotrophomonas line sepsis, PICC out. Finishing 2 wks of po Levaquin. Presently about day 8. 5. History of Hodgkin's disease? 6. History of thyroid cancer/ surgery? 7. Bilateral pulmonary micronodules; continue serial CTs. Coccidia titers sent 8. Rt lower lobe fibrosis? Observe, follow-up as outpatient 9. Rt lower ext DVT, likely due to immobility. IVC filter status post upper ext PICC assoc DVT. Anticoagulation vs continue filter. Check with vascular. 10. IVC f status: Argon Option Elite, [facility] Castro . Retrievable; vascular recomm down the line once sepsis treated. Probably can be done as outpt. 11. Anemia with beta thalassemia trait. sp bone marrow. limit blood draws. [EGD- Im[facility]da Mem- Adherent Clot] 12. Generalized anxiety disorder, poor insight, poor support system. Will be challenging to treat 13. 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 stored "blood" vial in her purse on initial admit at [facility], but unable to obtain hct; therefore wasnt blood. ph/ hct on sputum sent here 14. H/o Zoster - per Im[facility] Castro 15. Post Herpetic Neuralgia? 16. Hemoptysis? [White Mem =Ct Head/Neck nrml. L Bronch: submucosal hemm. Bronchial Arteriogram recomm?] 17. Epistaxis S: 10/06 Abd pain, crampy, diffuse. no agg factors. No fever. + diarrhea. Tolerating diet? Will attempt to find abn path from [facility]. Will attempt to contact patient's spokesperson Cristian Garcia [[phone]]. Will attempt to DC IVC filter if appropriate. 10/07: pulled out iv, refused new iv & am labs. c diff -ve. appr [facility] eval. 10/08: crampy abd pain. states her doc gives her norco. i discussed w her the trouble w narcotics & to seek alternatives to narcotics. 10/09: doing ok 10/10 intermittent 'pain'. would like to confirm path regarding her 'cancers'; path reports requested. O: vss PE No pallor Reg s1s2; no mrg Clear Bs+ mild tender; nd no RRG No edema Disposition: ok to dc to snf. If she 'bleeds', recomm sitter & dc dark fluids. weekly CBC. Result Diagram: 10/07/18194010/07/181940 Exam/Review of Systems Exam Vitals Vital Signs Date Temp Pulse Resp B/P (MAP) Pulse Ox O2 O2 Flow FiO2 Time Delivery Rate 10/10/18 98.5 77 18 140/69 97 Room Air 14:29 (92) Intake and Output 10/09/18 10/09/18 10/10/18 1515:00 23:00 07:00 IntakeIntake Total 700 ml 600 ml 620 ml BalanceBalance 700 ml 600 ml 620 ml Medications Medication Current Medications IV Flush (NS 3 ml) 3 ml PER PROTOCOL IV ; Start 10/06/18 at 00:00 Ondansetron HCl (Zofran Inj) 4 mg Q6H PRN IV NAUSEA/VOMITING Last administered on 10/06/18at 14:57; Admin Dose 4 MG; Start 10/06/18 at 00:00 Acetaminophen (Tylenol Tab) 650 mg Q6H PRN PO .PAIN 1-3 OR TEMP; Start 10/06/18 at 00:00 Acetaminophen (Tylenol Supp) 650 mg Q6H PRN [place] .PAIN 1-3 OR TEMP; Start 10/06/18 at 00:00 Docusate Sodium (Colace) 100 mg Q12H PRN PO .CONSTIPATION; Start 10/06/18 at 00:00 Magnesium Hydroxide (Milk Of Mag) 30 ml DAILY PRN PO .CONSTIPATION; Start 10/06/18 at 00:00 Bisacodyl (Dulcolax) 5 mg DAILY PRN PO .CONSTIPATION; Start 10/06/18 at 00:00 Cholecalciferol (Vitamin D) 2,000 unit DAILY PO Last administered on 10/10/18 08:51; Admin Dose 2,000 UNIT; Start 10/06/18 at 09:00 Lorazepam (Ativan) 2 mg BID PRN PO ANXIETY Last administered on 10/10/18 08:50; Admin Dose 2 MG; Start 10/06/18 at 00:00 Pantoprazole (Protonix Tab) 40 mg AC BREAKFAST PO Last administered on 10/10/18 06:39; Admin Dose 40 MG; Start 10/06/18 at 07:00 Potassium Chloride (Klor-Con 20) 20 meq DAILY PO Last administered on 10/10/18 08:51; Admin Dose 20 MEQ; Start 10/06/18 at 09:00 Zolpidem Tartrate (Ambien) 10 mg QHS PRN PO INSOMNIA Last administered on 10/09/18 21:42; Admin Dose 10 MG; Start 10/06/18 at 00:00 Duloxetine HCl (Cymbalta) 30 mg DAILY PO Last administered on 10/10/18 08:51; Admin Dose 30 MG; Start 10/07/18 at 09:00 Acetaminophen/ Hydrocodone Bitart ([place] (5/325)) 1 tab Q4 PRN PO .MOD PAIN 4-6 Last administered on 10/10/18 15:50; Admin Dose 1 TAB; Start 10/06/18 at 11:00 Levothyroxine Sodium (Synthroid) 50 mcg BEFORE BREAKFAST PO Last administered on 10/10/18 06:40; Admin Dose 50 MCG; Start 10/07/18 at 07:00 Baclofen (Lioresal) 10 mg TID PO Last administered on 10/10/18 13:47; Admin Dose 10 MG; Start 10/06/18 at 13:00 Gabapentin (Neurontin) 600 mg TID PO Last administered on 10/10/18 13:47; Admin Dose 600 MG; Start 10/06/18 at 13:00 Levofloxacin (Levaquin) 750 mg DAILY@06 PO Last administered on 10/10/18 0 6:39; Admin Dose 750 MG; Start 10/06/18 at 11:00 Lidocaine (Lidoderm) 1 patch DAILY TD Last administered on 10/10/18 08:53; Admin Dose 1 PATCH; Start 10/06/18 at 11:00 Senna/Docusate Sodium (Senokot-S) 2 tab HS PO Last administered on 10/09/18 20:39; Admin Dose 2 TAB; Start 10/06/18 at 21:00 Polyethylene Glycol (Miralax) 17 gm DAILY PO Last administered on 10/10/18 08:53; Admin Dose 17 GM; Start 10/07/18 at 09:00 Menthol/Methyl Salicylate (Cm Whitman) 1 applic QID TOP ; Start 10/06/18 at 13:00 Oxymetazoline HCl (Afrin [place]) 2 spray BID NASAL ; Start 10/06/18 at 21:00 Lactobacillus Acidophilus/ Rhamnosus (Culturelle) 1 cap BID PO Last administered on 10/10/18 08:51; Admin Dose 1 CAP; Start 10/06/18 at 21:00 Promethazine HCl/ Codeine (Phenergan/ Codeine) 10 ml Q4H PRN PO COUGH; Start 10/06/18 at 11:00 Trazodone HCl (Desyrel) 50 mg BID PO Last administered on 10/10/18 08:51; Admin Dose 50 MG; Start 10/06/18 at 11:00 Zinc Sulfate (Zinc Sulfate) 220 mg DAILY PO Last administered on 10/10/18 08:51; Admin Dose 220 MG; Start 10/07/18 at 09:00 Nystatin (Nystatin Powder) 1 applic BID TOP Last administered on 10/10/18 08:53; Admin Dose 1 APPLIC; Start 10/06/18 at 21:00 Diphenhydramine HCl (Benadryl) 25 mg Q6H PRN IV ITCHING Last administered on 10/06/18 21:17; Admin Dose 25 MG; Start 10/06/18 at 15:30 Ondansetron HCl (Zofran Tab) 4 mg Q6H PRN PO NAUSEA AND/OR VOMITING Last administered on 10/07/18 10:26; Admin Dose 4 MG; Start 10/07/18 at 00:30 Diphenhydramine HCl (Benadryl) 25 mg Q6H PRN PO ITCHING Last administered on 10/10/18 11:36; Admin Dose 25 MG; Start 10/07/18 at 00:30 Famotidine (Pepcid) 20 mg DAILY PO Last administered on 10/10/18at 08:50; Admin Dose 20 MG; Start 10/10/18 at 09:00 LEON CORONA MD Oct 10, 2018 20:09
[2018-10-10] MEDS: SENNA/DOCUSATE NA (8.6MG/50MG) TAB PO SCH (20:17)
[2018-10-10] MEDS: ZOLPIDEM 5 MG TAB PO PRN (21:12)
[2018-10-11] MEDS: DIPHENHYDRAMINE 25 MG CAP PO PRN ×4 (00:18→22:34)
[2018-10-11] MEDS: HYDROCODONE/APAP (5/325) TAB PO PRN ×6 (00:19→20:30)
[2018-10-11 01:51] VITALS: BP 100/63; PULSE 74; RESP 18
[2018-10-11] MEDS: LEVOFLOXACIN 750 MG TABLET PO SCH (06:30)
[2018-10-11] MEDS: LEVOTHYROXINE 50 MCG TAB PO SCH (06:30)
[2018-10-11 08:00] VITALS: BP 114/64; PULSE 73; RESP 18
[2018-10-11] MEDS: traZODone 50 MG TAB PO SCH ×2 (08:17→20:29)
[2018-10-11] MEDS: CHOLECALCIFEROL 1,000 UNIT TAB PO SCH (08:17)
[2018-10-11] MEDS: LACTOBACILLUS RHAMNOSUS CAP PO SCH ×2 (08:17→20:29)
[2018-10-11] MEDS: DULOXETINE 30 MG CAP DR PO SCH (08:18)
[2018-10-11] MEDS: FAMOTIDINE 20 MG TAB PO SCH (08:18)
[2018-10-11] MEDS: POTASSIUM CHLORIDE (SR) 20 MEQ TAB PO SCH (08:18)
[2018-10-11] MEDS: ZINC SULFATE 220 MG CAP PO SCH (08:18)
[2018-10-11] MEDS: BACLOFEN 10 MG TAB PO SCH ×3 (08:19→20:28)
[2018-10-11] MEDS: POLYETHYLENE GLYCOL 17 GM PACKET PO SCH (08:19)
[2018-10-11] MEDS: GABAPENTIN 300 MG CAP PO SCH ×3 (08:19→20:29)
[2018-10-11] MEDS: MENTHOL/METH SALICYLATE 30 GM OINT TOP SCH ×4 (08:20→20:29)
[2018-10-11] MEDS: LORAZEPAM 1 MG TAB PO PRN ×2 (08:24→20:28)
[2018-10-11] MEDS: LIDOCAINE 5% PATCH TD SCH (08:27)
[2018-10-11] MEDS: NYSTATIN 30 GM POWDER BTL TOP SCH ×2 (08:28→20:29)
[2018-10-11] MEDS: OXYMETAZOLINE 0.05% 15 ML NAS SPRAY NASAL SCH ×2 (09:31→20:29)
[2018-10-11 14:00] VITALS: BP 137/64; PULSE 82; RESP 18
--- NOTE | 2018-10-11 17:32 | PN ---
Date/Time of Note Date/Time of Note DATE: 10/11/18 TIME: 17:28 Assessment/Plan VTE Prophylaxis Risk score (from Ns)>0 risk: 2 SCD applied (from Ns): No SCD contraindicated: other Pharmacological prophylaxis: NA/contraindicated Pharm contraindication: anticoag not tolerated Lines/Catheters IV Catheter Type (from [facility]): [place] Assessment/Plan Hospital Course SUBJECTIVE: Denies any hemoptysis. OBJECTIVE: Physical Exam General: Adequately build 52 year-old female lying in bed in no apparent distress. HEENT: Normocephalic, atraumatic. Eyes: Anicteric sclerae, conjunctivae clear. ENT: Nasal septum midline, oral mucosa moist. Neck supple, no JVD noticed. Respiratory: Bilaterally clear breath sounds. No use of accessory muscles of re spiration. No adventitious breath sounds. Cardiovascular: S1, S2 heard. No murmurs or gallops. Abdomen: Soft, nondistended, nontender. Bowel sounds positive in all 4 quadrants. Genitourinary: Deferred. Extremities: No cyanosis, no clubbing, no edema. Peripheral pulses palpable. Neurologic: Cranial nerves II through XII grossly intact. The patient is awake, alert, and oriented. Skin: Normal skin turgor. No skin rashes. 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 The patient had a long hospitalization at [facility] from 08/13/2018 until 09/28/2018, when the patient was transferred to [facility] for further evaluation of her hemoptysis. [facility] pulmonology concluded no need for further evaluation of hemoptysis since this was resolved and there were concerns for factitious disorder since the patient's belongings revealed a vial of red liquid which she referred to as blood. However, lab analysis showed this was not blood. The patient was transferred back from [facility] on 10/05/2018 for further management because of insurance reasons. 1. Stenotrophomonas maltophilia bacteremia on 09/03/2018 and 09/19/2018. -On antimicrobials as per ID. 2. 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 -No evidence or documented history of Hodgkin's lymphoma as per oncology. 3. History of PE and DVT. -Status post IVC filter placement. 4. Anemia. -Microcytic and hypochromic. -Monitor H&H closely. 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 5. Chronic pain syndrome. -Judicious use of opioids. 6. Hemoptysis -S/P bronchoscopy on 08/24/2018 that was unremarkable. -S/P esophagogastroduodenoscopyX2 that showed no evidence of any gastrointestinal bleed. -Status post ENT evaluation along with laryngoscopy on 09/01/2018 with no evidence of any bleeding site history of hemoptysis. -Currently resolved. -?Factitious disorder (at [facility] patient's belongings revealed a vial of red liquid which she referred to as blood. However, lab analysis showed this was not blood). 7. Ulcer of the frenulum linguae. -Resolved. 8. Fluids, electrolytes, and nutrition. -Regular diet. 9. DVT prophylaxis -Bilateral SCDs. 10. Plan. -Continue pain control. -Continue antimicrobials as per ID. -Await clinical improvement. -Needs placement. The patient was seen in collaboration with Dr. Montes. Result Diagram: 10/07/18194010/07/181940 Exam/Review of Systems Exam Vitals Vital Signs Date Temp Pulse Resp B/P (MAP) Pulse Ox O2 O2 Flow FiO2 Time Delivery Rate 10/11/18 97.9 82 18 137/64 99 14:00 (88) 10/10/18 Room Air 20:00 Intake and Output 10/10/18 10/10/18 10/11/18 1515:00 23:00 07:00 IntakeIntake Total 760 ml 300 ml BalanceBalance 760 ml 300 ml Medications Medication Current Medications IV Flush (NS 3 ml) 3 ml PER PROTOCOL IV ; Start 10/06/18 at 00:00 Ondansetron HCl (Zofran Inj) 4 mg Q6H PRN IV NAUSEA/VOMITING Last administered on 10/06/18at 14:57; Admin Dose 4 MG; Start 10/06/18 at 00:00 Acetaminophen (Tylenol Tab) 650 mg Q6H PRN PO .PAIN 1-3 OR TEMP; Start 10/06/18 at 00:00 Acetaminophen (Tylenol Supp) 650 mg Q6H PRN [place] .PAIN 1-3 OR TEMP; Start 10/06/18 at 00:00 Docusate Sodium (Colace) 100 mg Q12H PRN PO .CONSTIPATION; Start 10/06/18 at 00:00 Magnesium Hydroxide (Milk Of Mag) 30 ml DAILY PRN PO .CONSTIPATION; Start 10/06/18 at 00:00 Bisacodyl (Dulcolax) 5 mg DAILY PRN PO .CONSTIPATION; Start 10/06/18 at 00:00 Cholecalciferol (Vitamin D) 2,000 unit DAILY PO Last administered on 10/11/18 08:17; Admin Dose 2,000 UNIT; Start 10/06/18 at 09:00 Lorazepam (Ativan) 2 mg BID PRN PO ANXIETY Last administered on 10/11/18 08: 24; Admin Dose 2 MG; Start 10/06/18 at 00:00 Potassium Chloride (Klor-Con 20) 20 meq DAILY PO Last administered on 10/11/18 08:18; Admin Dose 20 MEQ; Start 10/06/18 at 09:00 Zolpidem Tartrate (Ambien) 10 mg QHS PRN PO INSOMNIA Last administered on 10/10/18 21:12; Admin Dose 10 MG; Start 10/06/18 at 00:00 Duloxetine HCl (Cymbalta) 30 mg DAILY PO Last administered on 10/11/18 08:18; Admin Dose 30 MG; Start 10/07/18 at 09:00 Acetaminophen/ Hydrocodone Bitart ([place] (5/325)) 1 tab Q4 PRN PO .MOD PAIN 4-6 Last administered on 10/11/18 16:27; Admin Dose 1 TAB; Start 10/06/18 at 11:00 Levothyroxine Sodium (Synthroid) 50 mcg BEFORE BREAKFAST PO Last administered on 10/11/18 06:30; Admin Dose 50 MCG; Start 10/07/18 at 07:00 Baclofen (Lioresal) 10 mg TID PO Last administered on 10/11/18 12:25; Admin Dose 10 MG; Start 10/06/18 at 13:00 Gabapentin (Neurontin) 600 mg TID PO Last administered on 10/11/18 12:24; Admin Dose 600 MG; Start 10/06/18 at 13:00 Levofloxacin (Levaquin) 750 mg DAILY@06 PO Last administered on 10/11/18 06:30; Admin Dose 750 MG; Start 10/06/18 at 11:00 Lidocaine (Lidoderm) 1 patch DAILY TD Last administered on 10/11/18 08:27; Admin Dose 1 PATCH; Start 10/06/18 at 11:00 Senna/Docusate Sodium (Senokot-S) 2 tab HS PO Last administered on 10/10/18 20:17; Admin Dose 2 TAB; Start 10/06/18 at 21:00 Polyethylene Glycol (Miralax) 17 gm DAILY PO Last administered on 10/11/18 08:19; Admin Dose 17 GM; Start 10/07/18 at 09:00 Menthol/Methyl Salicylate (Cm Whitman) 1 applic QID TOP ; Start 10/06/18 at 13:00 Oxymetazoline HCl (Afrin [place]) 2 spray BID NASAL Last administered on 10/11/18 09:31; Admin Dose 2 SPRAY; Start 10/06/18 at 21:00 Lactobacillus Acidophilus/ Rhamnosus (Culturelle) 1 cap BID PO Last administered on 10/11/18 08:17; Admin Dose 1 CAP; Start 10/06/18 at 21:00 Promethazine HCl/ Codeine (Phenergan/ Codeine) 10 ml Q4H PRN PO COUGH; Start 10/06/18 at 11:00 Trazodone HCl (Desyrel) 50 mg BID PO Last administered on 10/11/18 08:17; Admi n Dose 50 MG; Start 10/06/18 at 11:00 Zinc Sulfate (Zinc Sulfate) 220 mg DAILY PO Last administered on 10/11/18 08:18; Admin Dose 220 MG; Start 10/07/18 at 09:00 Nystatin (Nystatin Powder) 1 applic BID TOP Last administered on 10/10/18 08:53; Admin Dose 1 APPLIC; Start 10/06/18 at 21:00 Diphenhydramine HCl (Benadryl) 25 mg Q6H PRN IV ITCHING Last administered on 10/06/18 21:17; Admin Dose 25 MG; Start 10/06/18 at 15:30 Ondansetron HCl (Zofran Tab) 4 mg Q6H PRN PO NAUSEA AND/OR VOMITING Last administered on 10/07/18 10:26; Admin Dose 4 MG; Start 10/07/18 at 00:30 Diphenhydramine HCl (Benadryl) 25 mg Q6H PRN PO ITCHING Last administered on 10/11/18 16:29; Admin Dose 25 MG; Start 10/07/18 at 00:30 Famotidine (Pepcid) 20 mg DAILY PO Last administered on 10/11/18 08:18; Admin Dose 20 MG; Start 10/10/18 at 09:00 SUZANNE STEVENSON NP Oct 11, 2018 17:31
--- NOTE | 2018-10-11 17:47 | CONS ---
Assessment/Plan Assessment/Plan Hospital Course (Demo Recall) sepsis, endovascular infection - recurrent sepsis 09/19/2018 due to bacteremia - recurrent bacteremia due to stenotrophomonas - s/p bacteremia d/t Coag Neg Staph and Stenotrophomonas maltophilia on 09/01/2018 and 09/02/2018; took daptomycin and levofloxacin - h/o "bacteremia due to enterococci" according to progress notes at [facility], but the actual microbiology report indicated blood culture was positive for ESBL+E. coli - h/o fungemia due to kaley glabrata, sensitive to fluconazole and to micafungin/caspofungin at [facility] - transthoracic echo on 09/04/2018 and 09/23/2018 had no mention on valvular vegetation pulm - persistent hemoptysis ?ectatic disease, pulmonary neuroendocrine tumor - Pt reports negative PPD at [facility] - WBC tagged scan on 09/24/2018 showed no signal of the chest - according to the microbiology report at [facility], Pt had ESBL+E. coli in her respiratory culture. Sputum cultures for AFB and fungi were negative at 8 weeks and at [address] [facility] - Pt had negative bronchoscopy in 05/[address] [facility], another at [facility] in 2018, and on 08/25/2018 at [facility] (no e/o bronchial airway bleeding according to Dr. Bello) - Numerous tiny lung nodules, increased in number from the chest CT dated May 22, 2018, with largest measuring 0.3 cm in the left apex, CT on 09/10/2018 indicated: stable bilateral micronodules dating back to examination of at least 01/29/2017; RLL fibrosis, CT on 09/22/2018 noted numerous small bilateral peripheral pulmonary nodules and scattered ground-glass opacities - Kaley albicans in sputum culture on 08/28/2018 and 09/21/2018, a colonizer - so far: aspergillus antibody not detected, HIV negative, coccidioidomycosis serology negative, TB Quant Gold negative, 1,3 beta d glucan negative, procalc 09/01/18 was 0.30; Sputum for O&P was negative, lung scan on 09/23/2018 had low prob of PE, GI - Delgado-colitis per CT 08/13/18 - S/p diarrhea on 09/06/18 - s/p EGD on 09/10/2018: no GI bleeding noted, reportedly completely normal - S/p sigmoidoscopy with biopsy 08/17/2018; path showed no e/o colitis or malignancy from transverse colon and rectum biopsies - S/p bloody diarrhea d/t Giardia; Pt took metronidazole for Giardia (08/14/2018-08/21/2018) in 07/2018. - H/o C diff toxin negative PCR positive status at [facility]. Took a course of Fidaxomyxin x 10 days. C. diff was negative on 08/14/2018 at [facility] - H/o cholecystectomy - Stool for O&P was negative 09/12/18 - now s/p recent admit at [facility] for apparent bloody stools heme/oncology - recurrent DVT despite IVC filter: DVT of R proximal mid femoral veins, partial DVT of R distal femoral vein on [facility] 09/19/2018 - S/p CT guided bone marrow aspiration and biopsy 08/20/2018 - Microcytic anemia requiring PRBC d/t acute blood loss - Electrophoresis 08/19/18 showed: Evaluation suggests beta thalassemia trait with anemia. Iron deficiency must be ruled out. - H/o BUE and RLE DVT, s/p IVC filter in January 2018 - H/o Hodgkin lymphoma diagnosed in 2006 - H/o thyroid CA diagnosed in 2005, s/p resection, chemo and XRT - IVC filter placement - Patient reports that approximately 2 years ago (2017?) she had an abnormal mammogram of Left breast and that she was scheduled for a biopsy approximately 4 months ago but d/t insurance change did not receive the biopsy, on 09/13/18 patient reported brown drainage from left nipple x2 nights - +Family hx of cancer (father of stomach CA, mother of lymphoma, paternal uncle had breast CA and 12 yo daughter has h/o brain tumor s/p surgery and resulting blindness) , renal - recurrent UTI - h/o UTI due to ESBL+E. coli - S/p PO levofloxacin (08/24/2018-08/28/2018) for probable UTI - Pt reports brown discharge from vagina x2 days on 10/11/18 other conditions - s/p a painful ulcer at frenulum, resolving. According to Pt, topical steroid would worsen the pain. HIV negative, RPR non reactive, herpes 1 and 2 by PCR not detected; s/p trial of PO valacyclovir (08/27/2018-09/01/2018) - s/p bilateral conjunctivitis - improved s/p Cipro eye drops (08/18/18-08/23/18) - myalgia with hemoptysis, CK level stable (<20 on 09/03/2018, 39 on 09/10/2018, and <20 on 09/17/2018) - Hypothyroidism - HLD - S/p hypokalemia - OA - depression/anxiety - H/o x2 - Allergy to PCN and vancomycin (reaction unknown) Previously Pt took: daptomycin (09/02/2018-09/17/2018, 09/19/2018-), cefepime (09/03/18 - 09/05/18), meropenem (09/19/2018-09/21/2018) Recommendations: - Consider completing Levaquin and monitoring off antibiotics. - Agree with checking sputum blood clot specimen to determine if blood - in process - Will follow closely with you Plan was d/w patient, nursing, and with Dr. Hansen. Thank you Consultation Date/Type/Reason Admit Date/Time Oct 05, 2018 at 22:30 Initial Consult Date 10/06/18 Type of Consult ID Requesting Provider: LEON CORONA MD Date/Time of Note DATE: 10/11/18 TIME: 17:42 24 HR Interval Summary Free Text/Dictation Patient denied all ROS but told me that she had some "brown drainage" from her vagina during the past two days. She states she believes it was "allot." States she has not had a period in 4 years. States she has cramping at least twice a day which is 10/10. She has remained afebrile and no acute issues were reported by nursing. Exam/Review of Systems Exam Vitals Vital Signs Date Temp Pulse Resp B/P (MAP) Pulse Ox O2 O2 Flow FiO2 Time Delivery Rate 10/11/18 97.9 82 18 137/64 99 14:00 (88) 10/10/18 Room Air 20:00 Intake and Output 10/10/18 10/10/18 10/11/18 1515:00 23:00 07:00 IntakeIntake Total 760 ml 300 ml BalanceBalance 760 ml 300 ml Allergies Coded Allergies Iodinated Contrast- Oral and IV Dye (Verified Allergy, Severe, 08/20/18) Iodine and Iodide Containing Produc (Verified Allergy, Unknown, 08/13/18) Penicillins (Verified Allergy, Unknown, 08/13/18) ketorolac (Verified Allergy, Unknown, 08/13/18) morphine (Verified Allergy, Unknown, 08/13/18) vancomycin (Verified Allergy, Unknown, 08/13/18) Exam Constitutional: alert, oriented, well developed, other (sitting up in bed eating a yogurt) Psych: no complaints, nl mood/affect Head: normocephalic, atraumatic Eyes: nl conjunctiva, nl lids, nl sclera ENMT: nl external ears & nose, nl nasal mucosa & septum, mucosa pink and moist (no thrush) Neck: supple, non-tender Respiratory: clear to auscultation, normal air movement Cardiovascular: regular rate and rhythm, nl pulses Gastrointestinal: soft, non-tender (all four quadrants), bowel sounds (normoactive ) Female Genitourinary: other (Bladder flat, nontender to palpation) Musculoskeletal: nl extremities to inspection Extremities: normal pulses Neurological: nl mental status, nl speech, nl strength Skin: nl turgor; No rash or lesions Results Result Diagram: 10/07/18194010/07/181940 Medications Medication Current Medications IV Flush (NS 3 ml) 3 ml PER PROTOCOL IV ; Start 10/06/18 at 00:00 Ondansetron HCl (Zofran Inj) 4 mg Q6H PRN IV NAUSEA/VOMITING Last administered on 10/06/18at 14:57; Admin Dose 4 MG; Start 10/06/18 at 00:00 Acetaminophen (Tylenol Tab) 650 mg Q6H PRN PO .PAIN 1-3 OR TEMP; Start 10/06/18 at 00:00 Acetaminophen (Tylenol Supp) 650 mg Q6H PRN [place] .PAIN 1-3 OR TEMP; Start 10/06/18 at 00:00 Docusate Sodium (Colace) 100 mg Q12H PRN PO .CONSTIPATION; Start 10/06/18 at 00:00 Magnesium Hydroxide (Milk Of Mag) 30 ml DAILY PRN PO .CONSTIPATION; Start 10/06/18 at 00:00 Bisacodyl (Dulcolax) 5 mg DAILY PRN PO .CONSTIPATION; Start 10/06/18 at 00:00 Cholecalciferol (Vitamin D) 2,000 unit DAILY PO Last administered on 10/11/18 08:17; Admin Dose 2,000 UNIT; Start 10/06/18 at 09:00 Lorazepam (Ativan) 2 mg BID PRN PO ANXIETY Last administered on 10/11/18 08:24; Admin Dose 2 MG; Start 10/06/18 at 00:00 Potassium Chloride (Klor-Con 20) 20 meq DAILY PO Last administered on 10/11/18 08:18; Admin Dose 20 MEQ; Start 10/06/18 at 09:00 Zolpidem Tartrate (Ambien) 10 mg QHS PRN PO INSOMNIA Last administered on 10/10/18 21:12; Admin Dose 10 MG; Start 10/06/18 at 00:00 Duloxetine HCl (Cymbalta) 30 mg DAILY PO Last administered on 10/11/18 08:18; Admin Dose 30 MG; Start 10/07/18 at 09:00 Acetaminophen/ Hydrocodone Bitart ([place] (5/325)) 1 tab Q4 PRN PO .MOD PAIN 4-6 Last administered on 10/11/18 16:27; Admin Dose 1 TAB; Start 10/06/18 at 11:00 Levothyroxine Sodium (Synthroid) 50 mcg BEFORE BREAKFAST PO Last administered on 10/11/18 06:30; Admin Dose 50 MCG; Start 10/07/18 at 07:00 Baclofen (Lioresal) 10 mg TID PO Last administered on 10/11/18 12:25; Admin Dose 10 MG; Start 10/06/18 at 13:00 Gabapentin (Neurontin) 600 mg TID PO Last administered on 10/11/18 12:24; Admin Dose 600 MG; Start 10/06/18 at 13:00 Levofloxacin (Levaquin) 750 mg DAILY@06 PO Last administered on 10/11/18 06:30; Admin Dose 750 MG; Start 10/06/18 at 11:00 Lidocaine (Lidoderm) 1 patch DAILY TD Last administered on 10/11/18 08:27; Admin Dose 1 PATCH; Start 10/06/18 at 11:00 Senna/Docusate Sodium (Senokot-S) 2 tab HS PO Last administered on 10/10/18 20:17; Admin Dose 2 TAB; Start 10/06/18 at 21:00 Polyethylene Glycol (Miralax) 17 gm DAILY PO Last administered on 10/11/18 08:19; Admin Dose 17 GM; Start 10/07/18 at 09:00 Menthol/Methyl Salicylate (Cm Whitman) 1 applic QID TOP ; Start 10/06/18 at 13:00 Oxymetazoline HCl (Afrin [place]) 2 spray BID NASAL Last administered on 10/11/18 09:31; Admin Dose 2 SPRAY; Start 10/06/18 at 21:00 Lactobacillus Acidophilus/ Rhamnosus (Culturelle) 1 cap BID PO Last administere d on 10/11/18 08:17; Admin Dose 1 CAP; Start 10/06/18 at 21:00 Promethazine HCl/ Codeine (Phenergan/ Codeine) 10 ml Q4H PRN PO COUGH; Start 10/06/18 at 11:00 Trazodone HCl (Desyrel) 50 mg BID PO Last administered on 10/11/18 08:17; Admin Dose 50 MG; Start 10/06/18 at 11:00 Zinc Sulfate (Zinc Sulfate) 220 mg DAILY PO Last administered on 10/11/18 08:18; Admin Dose 220 MG; Start 10/07/18 at 09:00 Nystatin (Nystatin Powder) 1 applic BID TOP Last administered on 10/10/18 08:53; Admin Dose 1 APPLIC; Start 10/06/18 at 21:00 Diphenhydramine HCl (Benadryl) 25 mg Q6H PRN IV ITCHING Last administered on 10/06/18 21:17; Admin Dose 25 MG; Start 10/06/18 at 15:30 Ondansetron HCl (Zofran Tab) 4 mg Q6H PRN PO NAUSEA AND/OR VOMITING Last administered on 10/07/18 10:26; Admin Dose 4 MG; Start 10/07/18 at 00:30 Diphenhydramine HCl (Benadryl) 25 mg Q6H PRN PO ITCHING Last administered on 10/11/18 16:29; Admin Dose 25 MG; Start 10/07/18 at 00:30 Famotidine (Pepcid) 20 mg DAILY PO Last administered on 3/18/19at 08:18; Admin Dose 20 MG; Start 10/10/18 at 09:00 LAST GARNER NP Oct 11, 2018 17:47
[2018-10-11] MEDS: SENNA/DOCUSATE NA (8.6MG/50MG) TAB PO SCH (20:28)
[2018-10-11 20:47] VITALS: BP 132/62; PULSE 65; RESP 18
[2018-10-11] MEDS: ZOLPIDEM 5 MG TAB PO PRN (21:35)
[2018-10-12] MEDS: ONDANSETRON 4 MG TAB PO PRN (00:36)
[2018-10-12] MEDS: HYDROCODONE/APAP (5/325) TAB PO PRN ×5 (00:37→22:34)
[2018-10-12 02:00] VITALS: BP 121/67; PULSE 64; RESP 18
[2018-10-12] MEDS ORDERED: oxyCODONE (CR) 10 MG TAB [oxyCONTIN] PO ONE (05:00)
[2018-10-12] MEDS ORDERED: oxyCODONE (CR) 10 MG TAB [oxyCONTIN] PO SCH (05:10)
[2018-10-12] MEDS: LEVOFLOXACIN 750 MG TABLET PO SCH (06:06)
[2018-10-12] MEDS: LEVOTHYROXINE 50 MCG TAB PO SCH (06:06)
[2018-10-12] MEDS: FAMOTIDINE 20 MG TAB PO SCH (06:14)
[2018-10-12 07:56] VITALS: BP 135/84; PULSE 74; RESP 16
[2018-10-12] MEDS: POTASSIUM CHLORIDE (SR) 20 MEQ TAB PO SCH (08:16)
[2018-10-12] MEDS: DULOXETINE 30 MG CAP DR PO SCH (08:16)
[2018-10-12] MEDS: LACTOBACILLUS RHAMNOSUS CAP PO SCH ×2 (08:17→20:07)
[2018-10-12] MEDS: traZODone 50 MG TAB PO SCH ×2 (08:17→20:07)
[2018-10-12] MEDS: GABAPENTIN 300 MG CAP PO SCH ×3 (08:18→20:07)
[2018-10-12] MEDS: ZINC SULFATE 220 MG CAP PO SCH (08:19)
[2018-10-12] MEDS: BACLOFEN 10 MG TAB PO SCH ×3 (08:19→20:07)
[2018-10-12] MEDS: OXYMETAZOLINE 0.05% 15 ML NAS SPRAY NASAL SCH ×2 (08:21→20:11)
[2018-10-12] MEDS: POLYETHYLENE GLYCOL 17 GM PACKET PO SCH (08:21)
[2018-10-12] MEDS: LIDOCAINE 5% PATCH TD SCH (08:21)
[2018-10-12] MEDS: NYSTATIN 30 GM POWDER BTL TOP SCH ×2 (08:22→20:09)
[2018-10-12] MEDS: LORAZEPAM 1 MG TAB PO PRN ×2 (08:27→20:06)
[2018-10-12] MEDS: MENTHOL/METH SALICYLATE 30 GM OINT TOP SCH ×4 (09:00→21:00)
[2018-10-12] MEDS: DIPHENHYDRAMINE 25 MG CAP PO PRN (09:45)
[2018-10-12] MEDS: CHOLECALCIFEROL 1,000 UNIT TAB PO SCH (10:20)
--- NOTE | 2018-10-12 12:34 | PN ---
Date/Time of Note Date/Time of Note DATE: 10/12/18 TIME: 12:32 Assessment/Plan VTE Prophylaxis Risk score (from Ns)>0 risk: 2 SCD applied (from Ns): No SCD contraindicated: other Pharmacological prophylaxis: NA/contraindicated Pharm contraindication: anticoag not tolerated Lines/Catheters IV C[facility]from [facility] [place] [facility] Assessment/Plan Hospital Course SUBJECTIVE: Denies any hemoptysis. Complains of vaginal bleeding/discharge. OBJECTIVE: Physical Exam General: Adequately build 52 year-old female lying in bed in no apparent di stress. HEENT: Normocephalic, atraumatic. Eyes: Anicteric sclerae, conjunctivae clear. ENT: Nasal septum midline, oral mucosa moist. Neck supple, no JVD noticed. Respiratory: Bilaterally clear breath sounds. No use of accessory muscles of respiration. No adventitious breath sounds. Cardiovascular: S1, S2 heard. No murmurs or gallops. Abdomen: Soft, nondistended, nontender. Bowel sounds positive in all 4 quadrants. Genitourinary: Deferred. Extremities: No cyanosis, no clubbing, no edema. Peripheral pulses palpable. Neurologic: Cranial nerves II through XII grossly intact. The patient is awake, alert, and oriented. Skin: Normal skin turgor. No skin rashes. 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 The patient had a long hospitalization at [facility] from 08/13/2018 until 09/28/2018, when the patient was transferred to [facility] for further evaluation of her hemoptysis. [facility] pulmonology concluded no need for further evaluation of hemoptysis since this was resolved and there were concerns for factitious disorder since the patient's belongings revealed a vial of red liquid which she referred to as blood. However, lab analysis showed this was not blood. The patient was transferred back from [facility] on 10/05/2018 for further management because of insurance reasons. 1. Stenotrophomonas maltophilia bacteremia on 09/03/2018 and 09/19/2018. -On antimicrobials as per ID. 2. 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 -No evidence or documented history of Hodgkin's lymphoma as per oncology. 3. History of PE and DVT. -Status post IVC filter placement. 4. Anemia. -Microcytic and hypochromic. -Monitor H&H closely. 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 5. Chronic pain syndrome. -Judicious use of opioids. 6. Hemoptysis -S/P bronchoscopy on 08/24/2018 that was unremarkable. -S/P esophagogastroduodenoscopyX2 that showed no evidence of any gastrointestinal bleed. -Status post ENT evaluation along with laryngoscopy on 09/01/2018 with no evidence of any bleeding site history of hemoptysis. -Currently resolved. -?Factitious disorder (at [facility] patient's belongings revealed a vial of red liquid which she referred to as blood. However, lab analysis showed this was not blood). 7. Ulcer of the frenulum linguae. -Resolved. 8. Fluids, electrolytes, and nutrition. -Regular diet. 9. DVT prophylaxis -Bilateral SCDs. 10. Plan. -Continue pain control. -Continue antimicrobials as per ID. -Await clinical improvement. -Needs placement. -Obtain pelvic ultrasound. The patient was seen in collaboration with Dr. Montes. Result Diagram: 10/12/18 0659 10/12/18 0659 Results 24hrs Laboratory Tests Test 10/12/18 06:59 White Blood Count 4.2 #L Red Blood Count 4.08 L Hemoglobin 9.8 L Hematocrit 31.7 L Mean Corpuscular Volume 77.7 L Mean Corpuscular Hemoglobin 24.0 L Mean Corpuscular Hemoglobin Concent 30.9 L Red Cell Distribution Width 17.2 H Platelet Count 271 # Mean Platelet Volume 10.2 Immature Granulocytes % 0.500 H Neutrophils % 61.0 Lymphocytes % 29.0 Monocytes % 6.9 Eosinophils % 2.1 Basophils % 0.5 Nucleated Red Blood Cells % 0.0 Immature Granulocytes # 0.020 Neutrophils # 2.6 Lymphocytes # 1.2 Monocytes # 0.3 Eosinophils # 0.1 Basophils # 0.0 Nucleated Red Blood Cells # 0.0 Sodium Level 144 Potassium Level 4.2 Chloride Level 100 Carbon Dioxide Level 28 Anion Gap 16 H Blood Urea Nitrogen 20 Creatinine 0.49 Est Glomerular Filtrat Rate mL/min > 60 Glucose Level 83 Calcium Level 9.8 Phosphorus Level 5.4 H Magnesium Level 2.0 Exam/Review of Systems Exam Vitals Vital Signs Date Temp Pulse Resp B/P (MAP) Pulse Ox O2 O2 Flow FiO2 Time Delivery Rate 10/12/18 98.0 74 16 135/84 96 Room Air 07:56 (101) Intake and Output 10/11/18 10/11/18 10/12/18 1515:00 23:00 07:00 IntakeIntake Total 560 ml 440 ml BalanceBalance 560 ml 440 ml Results Results 24hrs Laboratory Tests Test 10/12/18 06:59 White Blood Count 4.2 #L Red Blood Count 4.08 L Hemoglobin 9.8 L Hematocrit 31.7 L Mean Corpuscular Volume 77.7 L Mean Corpuscular Hemoglobin 24.0 L Mean Corpuscular Hemoglobin Concent 30.9 L Red Cell Distribution Width 17.2 H Platelet Count 271 # Mean Platelet Volume 10.2 Immature Granulocytes % 0.500 H Neutrophils % 61.0 Lymphocytes % 29.0 Monocytes % 6.9 Eosinophils % 2.1 Basophils % 0.5 Nucleated Red Blood Cells % 0.0 Immature Granulocytes # 0.020 Neutrophils # 2.6 Lymphocytes # 1.2 Monocytes # 0.3 Eosinophils # 0.1 Basophils # 0.0 Nucleated Red Blood Cells # 0.0 Sodium Level 144 Potassium Level 4.2 Chloride Level 100 Carbon Dioxide Level 28 Anion Gap 16 H Blood Urea Nitrogen 20 Creatinine 0.49 Est Glomerular Filtrat Rate mL/min > 60 Glucose Level 83 Calcium Level 9.8 Phosphorus Level 5.4 H Magnesium Level 2.0 Medications Medication Current Medications IV Flush (NS 3 ml) 3 ml PER PROTOCOL IV ; Start 10/06/18 at 00:00 Ondansetron HCl (Zofran Inj) 4 mg Q6H PRN IV NAUSEA/VOMITING Last administered on 10/06/18at 14:57; Admin Dose 4 MG; Start 10/06/18 at 00:00 Acetaminophen (Tylenol Tab) 650 mg Q6H PRN PO .PAIN 1-3 OR TEMP; Start 10/06/18 at 00:00 Acetaminophen (Tylenol Supp) 650 mg Q6H PRN [place] .PAIN 1-3 OR TEMP; Start 10/06 at 00:00 Docusate Sodium (Colace) 100 mg Q12H PRN PO .CONSTIPATION; Start 10/06/18 at 00:00 Magnesium Hydroxide (Milk Of Mag) 30 ml DAILY PRN PO .CONSTIPATION; Start 10/06/18 at 00:00 Bisacodyl (Dulcolax) 5 mg DAILY PRN PO .CONSTIPATION; Start 10/06/18 at 00:00 Cholecalciferol (Vitamin D) 2,000 unit DAILY PO Last administered on 10/12/18 10:20; Admin Dose 2,000 UNIT; Start 10/06/18 at 09:00 Lorazepam (Ativan) 2 mg BID PRN PO ANXIETY Last administered on 10/12/18 08:27; Admin Dose 2 MG; Start 10/06/18 at 00:00 Potassium Chloride (Klor-Con 20) 20 meq DAILY PO Last administered on 10/12/18 08:16; Admin Dose 20 MEQ; Start 10/06/18 at 09:00 Zolpidem Tartrate (Ambien) 10 mg QHS PRN PO INSOMNIA Last administered on 10/11/18 21:35; Admin Dose 10 MG; Start 10/06/18 at 00:00 Duloxetine HCl (Cymbalta) 30 mg DAILY PO Last administered on 10/12/18 08:16; Admin Dose 30 MG; Start 10/07/18 at 09:00 Acetaminophen/ Hydrocodone Bitart ([place] (5/325)) 1 tab Q4 PRN PO .MOD PAIN 4-6 Last administered on 10/12/18 09:45; Admin Dose 1 TAB; Start 10/06/18 at 11:00 Levothyroxine Sodium (Synthroid) 50 mcg BEFORE BREAKFAST PO Last administered on 10/12/18 06:06; Admin Dose 50 MCG; Start 10/07/18 at 07:00 Baclofen (Lioresal) 10 mg TID PO Last administered on 10/12/18 12:07; Admin Dose 10 MG; Start 10/06/18 at 13:00 Gabapentin (Neurontin) 600 mg TID PO Last administered on 10/12/18 12:07; Admin Dose 600 MG; Start 10/06/18 at 13:00 Levofloxacin (Levaquin) 750 mg DAILY@06 PO Last administered on 10/12/18 06:06; Admin Dose 750 MG; Start 10/06/18 at 11:00 Lidocaine (Lidoderm) 1 patch DAILY TD Last administered on 10/11/18 08:27; Admin Dose 1 PATCH; Start 10/06/18 at 11:00 Senna/Docusate Sodium (Senokot-S) 2 tab HS PO Last administered on 10/11/18 20:28; Admin Dose 2 TAB; Start 10/06/18 at 21:00 Polyethylene Glycol (Miralax) 17 gm DAILY PO Last administered on 10/12/18 08:21; Admin Dose 17 GM; Start 10/07/18 at 09:00 Menthol/Methyl Salicylate (Cm Whit[place]) 1 applic QID TOP ; Start 10/06/18 at 13:00 Oxymetazoline HCl (Afrin [place]) 2 spray BID NASAL Last administered on 10/11/18 09:31; Admin Dose 2 SPRAY; Start 10/06/18 at 21:00 Lactobacillus Acidophilus/ Rhamnosus (Culturelle) 1 cap BID PO Last administered on 10/12/18 08:17; Admin Dose 1 CAP; Start 10/06/18 at 21:00 Promethazine HCl/ Codeine (Phenergan/ Codeine) 10 ml Q4H PRN PO COUGH; Start 10/06/18 at 11:00 Trazodone HCl (Desyrel) 50 mg BID PO Last administered on 10/12/18 08:17; Admin Dose 50 MG; Start 10/06/18 at 11:00 Zinc Sulfate (Zinc Sulfate) 220 mg DAILY PO Last administered on 10/12/18 08:19; Admin Dose 220 MG; Start 10/07/18 at 09:00 Nystatin (Nystatin Powder) 1 applic BID TOP Last administered on 10/12/18 08:22; Admin Dose 1 APPLIC; Start 10/06/18 at 21:00 Diphenhydramine HCl (Benadryl) 25 mg Q6H PRN IV ITCHING Last administered on 10/06/18 21:17; Admin Dose 25 MG; Start 10/06/18 at 15:30 Ondansetron HCl (Zofran Tab) 4 mg Q6H PRN PO NAUSEA AND/OR VOMITING Last administered on 10/12/18 00:36; Admin Dose 4 MG; Start 10/07/18 at 00:30 Diphenhydramine HCl (Benadryl) 25 mg Q6H PRN PO ITCHING Last administered on 10/12/18at 09:45; Admin Dose 25 MG; Start 10/07/18 at 00:30 Famotidine (Pepcid) 20 mg DAILY PO Last administered on 10/12/18at 06:14; Admin Dose 20 MG; Start 10/10/18 at 09:00 SUZANNE STEVENSON NP Oct 12, 2018 12:33
[2018-10-12 14:06] VITALS: BP 102/56; PULSE 86; RESP 16
--- NOTE | 2018-10-12 16:06 | CONS ---
Assessment/Plan Assessment/Plan Hospital Course (Demo Recall) EMR reviewed. Care coordinated and directed with [employer] P[employer] APPLIER.d/w [employer] P[employer] APPLIER Thong as well. advise to stop levaquin. Consultation Date/Type/Reason Admit Date/Time Oct 05, 2018 at 22:30 Initial Consult Date 10/06/18 Type of Consult id Requesting Provider: LEON CORONA MD Date/Time of Note DATE: 10/12/18 TIME: 16:05 Exam/Review of Systems Exam Vitals Vital Signs Date Temp Pulse Resp B/P (MAP) Pulse Ox O2 O2 Flow FiO2 Time Delivery Rate 10/12/18 98.4 86 16 102/56 96 Room Air 14:06 (71) Intake and Output 10/11/18 10/11/18 10/12/18 1515:00 23:00 07:00 IntakeIntake Total 560 ml 440 ml BalanceBalance 560 ml 440 ml Results Result Diagram: 10/12/18 0659 10/12/18 0659 Results 24hrs Laboratory Tests Test 10/12/18 06:59 White Blood Count 4.2 #L Red Blood Count 4.08 L Hemoglobin 9.8 L Hematocrit 31.7 L Mean Corpuscular Volume 77.7 L Mean Corpuscular Hemoglobin 24.0 L Mean Corpuscular Hemoglobin Concent 30.9 L Red Cell Distribution Width 17.2 H Platelet Count 271 # Mean Platelet Volume 10.2 Immature Granulocytes % 0.500 H Neutrophils % 61.0 Lymphocytes % 29.0 Monocytes % 6.9 Eosinophils % 2.1 Basophils % 0.5 Nucleated Red Blood Cells % 0.0 Immature Granulocytes # 0.020 Neutrophils # 2.6 Lymphocytes # 1.2 Monocytes # 0.3 Eosinophils # 0.1 Basophils # 0.0 Nucleated Red Blood Cells # 0.0 Sodium Level 144 Potassium Level 4.2 Chloride Level 100 Carbon Dioxide Level 28 Anion Gap 16 H Blood Urea Nitrogen 20 Creatinine 0.49 Est Glomerular Filtrat Rate mL/min > 60 Glucose Level 83 Calcium Level 9.8 Phosphorus Level 5.4 H Magnesium Level 2.0 Medications Medication Current Medications IV Flush (NS 3 ml) 3 ml PER PROTOCOL IV ; Start 10/06/18 at 00:00 Ondansetron HCl (Zofran Inj) 4 mg Q6H PRN IV NAUSEA/VOMITING Last administered on 10/06/18at 14:57; Admin Dose 4 MG; Start 10/06/18 at 00:00 Acetaminophen (Tylenol Tab) 650 mg Q6H PRN PO .PAIN 1-3 OR TEMP; Start 10/06/18 at 00:00 Acetaminophen (Tylenol Supp) 650 mg Q6H PRN [place] .PAIN 1-3 OR TEMP; Start 10/06/18 at 00:00 Docusate Sodium (Colace) 100 mg Q12H PRN PO .CONSTIPATION; Start 10/06/18 at 00:00 Magnesium Hydroxide (Milk Of Mag) 30 ml DAILY PRN PO .CONSTIPATION; Start 10/06/18 at 00:00 Bisacodyl (Dulcolax) 5 mg DAILY PRN PO .CONSTIPATION; Start 10/06/18 at 00:00 Cholecalciferol (Vitamin D) 2,000 unit DAILY PO Last administered on 10/12/18 10:20; Admin Dose 2,000 UNIT; Start 10/06/18 at 09:00 Lorazepam (Ativan) 2 mg BID PRN PO ANXIETY Last administered on 10/12/18 08:27; Admin Dose 2 MG; Start 10/06/18 at 00:00 Potassium Chloride (Klor-Con 20) 20 meq DAILY PO Last administered on 10/12/18 08:16; Admin Dose 20 MEQ; Start 10/06/18 at 09:00 Zolpidem Tartrate (Ambien) 10 mg QHS PRN PO INSOMNIA Last administered on 10/11/18 21:35; Admin Dose 10 MG; Start 10/06/18 at 00:00 Duloxetine HCl (Cymbalta) 30 mg DAILY PO Last administered on 10/12/18 08:16; Admin Dose 30 MG; Start 10/07/18 at 09:00 Acetaminophen/ Hydrocodone Bitart ([place] (5/325)) 1 tab Q4 PRN PO .MOD PAIN 4-6 Last administered on 10/12/18 14:16; Admin Dose 1 TAB; Start 10/06/18 at 11:00 Levothyroxine Sodium (Synthroid) 50 mcg BEFORE BREAKFAST PO Last administered on 10/12/18 06:06; Admin Dose 50 MCG; Start 10/07/18 at 07:00 Baclofen (Lioresal) 10 mg TID PO Last administered on 10/12/18 12:07; Admin Dose 10 MG; Start 10/06/18 at 13:00 Gabapentin (Neurontin) 600 mg TID PO Last administered on 10/12/18 12:07; Admin Dose 600 MG; Start 10/06/18 at 13:00 Levofloxacin (Levaquin) 750 mg DAILY@06 PO Last administered on 10/12/18 06:06; Admin Dose 750 MG; Start 10/06/18 at 11:00 Lidocaine (Lidoderm) 1 patch DAILY TD Last administered on 10/11/18 08:27; Admin Dose 1 PATCH; Start 10/06/18 at 11:00 Senna/Docusate Sodium (Senokot-S) 2 tab HS PO Last administered on 10/11/18 20:28; Admin Dose 2 TAB; Start 10/06/18 at 21:00 Polyethylene Glycol (Miralax) 17 gm DAILY PO Last administered on 10/12/18 08:21; Admin Dose 17 GM; Start 10/07/18 at 09:00 Menthol/Methyl Salicylate (Cm Whitman) 1 applic QID TOP ; Start 10/06/18 at 13:00 Oxymetazoline HCl (Afrin [place]) 2 spray BID NASAL Last administered on 10/11/18 09:31; Admin Dose 2 SPRAY; Start 10/06/18 at 21:00 Lactobacillus Acidophilus/ Rhamnosus (Culturelle) 1 cap BID PO Last administered on 10/12/18 08:17; Admin Dose 1 CAP; Start 10/06/18 at 21:00 Promethazine HCl/ Codeine (Phenergan/ Codeine) 10 ml Q4H PRN PO COUGH; Start 10/06/18 at 11:00 Trazodone HCl (Desyrel) 50 mg BID PO Last administered on 10/12/18 08:17; Admin Dose 50 MG; Start 10/06/18 at 11:00 Zinc Sulfate (Zinc Sulfate) 220 mg DAILY PO Last administered on 10/12/18 08:19; Admin Dose 220 MG; Start 10/07/18 at 09:00 Nystatin (Nystatin Powder) 1 applic BID TOP Last administered on 10/12/18 08:22; Admin Dose 1 APPLIC; Start 10/06/18 at 21:00 Diphenhydramine HCl (Benadryl) 25 mg Q6H PRN IV ITCHING Last administered on 10/06/18 21:17; Admin Dose 25 MG; Start 10/06/18 at 15:30 Ondansetron HCl (Zofran Tab) 4 mg Q6H PRN PO NAUSEA AND/OR VOMITING Last administered on 10/12/18at 00:36; Admin Dose 4 MG; Start 10/07/18 at 00:30 Diphenhydramine HCl (Benadryl) 25 mg Q6H PRN PO ITCHING Last administered on 10/12/18at 09:45; Admin Dose 25 MG; Start 10/07/18 at 00:30 Famotidine (Pepcid) 20 mg DAILY PO Last administered on 10/12/18 06:14; Admin Dose 20 MG; Start 10/10/18 at 09:00 AUREA MEDINA MD Oct 12, 2018 16:06
--- NOTE | 2018-10-12 16:11 | CONS ---
Assessment/Plan Assessment/Plan Hospital Course (Demo Recall) sepsis, endovascular infection - recurrent sepsis 09/19/2018 due to bacteremia - recurrent bacteremia due to stenotrophomonas - s/p bacteremia d/t Coag Neg Staph and Stenotrophomonas maltophilia on 09/01/2018 and 09/02/2018; took daptomycin and levofloxacin - h/o "bacteremia due to enterococci" according to progress notes at [facility], but the actual microbiology report indicated blood culture was positive for ESBL+E. coli - h/o fungemia due to kaley glabrata, sensitive to fluconazole and to micafungin/caspofungin at [facility] - transthoracic echo on 09/04/2018 and 09/23/2018 had no mention on valvular vegetation pulm - persistent hemoptysis ?ectatic disease, pulmonary neuroendocrine tumor - Pt reports negative PPD at [facility] - WBC tagged scan on 09/24/2018 showed no signal of the chest - according to the microbiology report at [facility], Pt had ESBL+E. coli in her respiratory culture. Sputum cultures for AFB and fungi were negative at 8 weeks and at 4 weeks respectively at [facility] - Pt had negative bronchoscopy in 05/2018 at [facility], another at [facility] in 2018, and on 08/25/2018 at [facility] (no e/o bronchial airway bleeding according to Dr. Bello) - Numerous tiny lung nodules, increased in number from the chest CT dated May 22, 2018, with largest measuring 0.3 cm in the left apex, CT on 09/10/2018 indicated: stable bilateral micronodules dating back to examination of at least 01/29/2017; RLL fibrosis, CT on 09/22/2018 noted numerous small bilateral peripheral pulmonary nodules and scattered ground-glass opacities - Kaley albicans in sputum culture on 08/28/2018 and 09/21/2018, a colonizer - so far: aspergillus antibody not detected, HIV negative, coccidioidomycosis serology negative, TB Quant Gold negative, 1,3 beta d glucan negative, procalc 09/01/18 was 0.30; Sputum for O&P was negative, lung scan on 09/23/2018 had low prob of PE, GI - Delgado-colitis per CT 08/13/18 - S/p diarrhea on 09/06/18 - s/p EGD on 09/10/2018: no GI bleeding noted, reportedly completely normal - S/p sigmoidoscopy with biopsy 08/17/2018; path showed no e/o colitis or malignancy from transverse colon and rectum biopsies - S/p bloody diarrhea d/t Giardia; Pt took metronidazole for Giardia (08/14/2018-08/21/2018) in 07/2018. - H/o C diff toxin negative PCR positive status at [facility]. Took a course of Fidaxomyxin x 10 days. C. diff was negative on 08/14/2018 at [facility] - H/o cholecystectomy - Stool for O&P was negative 09/12/18 - now s/p recent admit at [facility] for apparent bloody stools heme/oncology - recurrent DVT despite IVC filter: DVT of R proximal mid femoral veins, partial DVT of R distal femoral vein on [facility] 09/19/2018 - S/p CT guided bone marrow aspiration and biopsy 08/20/2018 - Microcytic anemia requiring PRBC d/t acute blood loss - Electrophoresis 08/19/18 showed: Evaluation suggests beta thalassemia trait with anemia. Iron deficiency must be ruled out. - H/o BUE and RLE DVT, s/p IVC filter in January 2018 - H/o Hodgkin lymphoma diagnosed in 2006 - H/o thyroid CA diagnosed in 2005, s/p resection, chemo and XRT - IVC filter placement - Patient reports that approximately 2 years ago (2017?) she had an abnormal mammogram of Left breast and that she was scheduled for a biopsy approximately 4 months ago but d/t insurance change did not receive the biopsy, on 09/13/18 patient reported brown drainage from left nipple x2 nights - +Family hx of cancer (father of stomach CA, mother of lymphoma, paternal uncle had breast CA and 12 yo daughter has h/o brain tumor s/p surgery and resulting blindness) , renal - recurrent UTI - h/o UTI due to ESBL+E. coli - S/p PO levofloxacin (08/24/2018-08/28/2018) for probable UTI - Pt reports brown discharge from vagina x2 days on 10/11/18 other conditions - s/p a painful ulcer at frenulum, resolving. According to Pt, topical steroid would worsen the pain. HIV negative, RPR non reactive, herpes 1 and 2 by PCR not detected; s/p trial of PO valacyclovir (08/27/2018-09/01/2018) - s/p bilateral conjunctivitis - improved s/p Cipro eye drops (08/18/18-08/23/18) - myalgia with hemoptysis, CK level stable (<20 on 09/03/2018, 39 on 09/10/2018, and <20 on 09/17/2018) - Hypothyroidism - HLD - S/p hypokalemia - OA - depression/anxiety - H/o x2 - Allergy to PCN and vancomycin (reaction unknown) Previously Pt took: daptomycin (09/02/2018-09/17/2018, 09/19/2018-), cefepime (09/03/18 - 09/05/18), meropenem (09/19/2018-09/21/2018) Recommendations: - Consider completing Levaquin and monitoring off antibiotics. - Agree with checking sputum blood clot specimen to determine if blood - in process - the sputum grew normal respiratory zay. - F/u Ultrasound Pelvis non-OB abdominal. - Will follow closely with you Plan was d/w patient and with Dr. Hansen. Thank you Consultation Date/Type/Reason Admit Date/Time Oct 05, 2018 at 22:30 Initial Consult Date 10/06/18 Type of Consult ID Requesting Provider: LEON CORONA MD Date/Time of Note DATE: 10/12/18 TIME: 16:10 24 HR Interval Summary Free Text/Dictation Per d/w patient she has been having continued cramping and has had to change her underwear x3 today. An ultrasound was done which is pending. Patient mentions that her last pap smear about 2-3 years ago was abnormal but she never went back for f/u d/t insurance issue. She denied all other ROS. Exam/Review of Systems Exam Vitals Vital Signs Date Temp Pulse Resp B/P (MAP) Pulse Ox O2 O2 Flow FiO2 Time Delivery Rate 10/12/18 98.4 86 16 102/56 96 Room Air 14:06 (71) Intake and Output 10/11/18 10/11/18 10/12/18 1515:00 23:00 07:00 IntakeIntake Total 560 ml 440 ml BalanceBalance 560 ml 440 ml Allergies Coded Allergies Iodinated Contrast- Oral and IV Dye (Verified Allergy, Severe, 08/20/18) Iodine and Iodide Containing Produc (Verified Allergy, Unknown, 08/13/18) Penicillins (Verified Allergy, Unknown, 08/13/18) ketorolac (Verified Allergy, Unknown, 08/13/18) morphine (Verified Allergy, Unknown, 08/13/18) vancomycin (Verified Allergy, Unknown, 08/13/18) Exam Constitutional: alert, oriented, well developed, other (steady gait, ambulated from bathroom.) Psych: no complaints, nl mood/affect Head: normocephalic, atraumatic Eyes: nl conjunctiva, nl lids, nl sclera ENMT: nl external ears & nose, nl nasal mucosa & septum, mucosa pink and moist (no thrush) Neck: supple, non-tender Respiratory: clear to auscultation, normal air movement Cardiovascular: regular rate and rhythm, nl pulses Gastrointestinal: soft, non-tender (all four quadrants), bowel sounds (normoactive ) Female Genitourinary: other (I visualized pt's urine in toilet before she fl ushed, I saw yellow urine, Bladder flat, nontender to palpation) Musculoskeletal: nl extremities to inspection Extremities: normal pulses Neurological: nl mental status, nl speech, nl strength Skin: nl turgor; No rash or lesions Results Result Diagram: 10/12/18 0659 10/12/18 0659 Results 24hrs Laboratory Tests Test 10/12/18 06:59 White Blood Count 4.2 #L Red Blood Count 4.08 L Hemoglobin 9.8 L Hematocrit 31.7 L Mean Corpuscular Volume 77.7 L Mean Corpuscular Hemoglobin 24.0 L Mean Corpuscular Hemoglobin Concent 30.9 L Red Cell Distribution Width 17.2 H Platelet Count 271 # Mean Platelet Volume 10.2 Immature Granulocytes % 0.500 H Neutrophils % 61.0 Lymphocytes % 29.0 Monocytes % 6.9 Eosinophils % 2.1 Basophils % 0.5 Nucleated Red Blood Cells % 0.0 Immature Granulocytes # 0.020 Neutrophils # 2.6 Lymphocytes # 1.2 Monocytes # 0.3 Eosinophils # 0.1 Basophils # 0.0 Nucleated Red Blood Cells # 0.0 Sodium Level 144 Potassium Level 4.2 Chloride Level 100 Carbon Dioxide Level 28 Anion Gap 16 H Blood Urea Nitrogen 20 Creatinine 0.49 Est Glomerular Filtrat Rate mL/min > 60 Glucose Level 83 Calcium Level 9.8 Phosphorus Level 5.4 H Magnesium Level 2.0 Medications Medication Current Medications IV Flush (NS 3 ml) 3 ml PER PROTOCOL IV ; Start 10/06/18 at 00:00 Ondansetron HCl (Zofran Inj) 4 mg Q6H PRN IV NAUSEA/VOMITING Last administered on 10/06/18at 14:57; Admin Dose 4 MG; Start 10/06/18 at 00:00 Acetaminophen (Tylenol Tab) 650 mg Q6H PRN PO .PAIN 1-3 OR TEMP; Start 10/06/18 at 00:00 Acetaminophen (Tylenol Supp) 650 mg Q6H PRN TN .PAIN 1-3 OR TEMP; Start 10/06/18 at 00:00 Docusate Sodium (Colace) 100 mg Q12H PRN PO .CONSTIPATION; Start 10/06/18 at 00:00 Magnesium Hydroxide (Milk Of Mag) 30 ml DAILY PRN PO .CONSTIPATION; Start 10/06/18 at 00:00 Bisacodyl (Dulcolax) 5 mg DAILY PRN PO .CONSTIPATION; Start 10/06/18 at 00:00 Cholecalciferol (Vitamin D) 2,000 unit DAILY PO Last administered on 10/12/18 10:20; Admin Dose 2,000 UNIT; Start 10/06/18 at 09:00 Lorazepam (Ativan) 2 mg BID PRN PO ANXIETY Last administered on 10/12/18 08:27; Admin Dose 2 MG; Start 10/06/18 at 00:00 Potassium Chloride (Klor-Con 20) 20 meq DAILY PO Last administered on 10/12/18 08:16; Admin Dose 20 MEQ; Start 10/06/18 at 09:00 Zolpidem Tartrate (Ambien) 10 mg QHS PRN PO INSOMNIA Last administered on 10/11/18 21:35; Admin Dose 10 MG; Start 10/06/18 at 00:00 Duloxetine HCl (Cymbalta) 30 mg DAILY PO Last administered on 10/12/18 08:16; Admin Dose 30 MG; Start 10/07/18 at 09:00 Acetaminophen/ Hydrocodone Bitart ([place] (5/325)) 1 tab Q4 PRN PO .MOD PAIN 4-6 Last administered on 10/12/18 14:16; Admin Dose 1 TAB; Start 10/06/18 at 11:00 Levothyroxine Sodium (Synthroid) 50 mcg BEFORE BREAKFAST PO Last administered on 10/12/18 06:06; Admin Dose 50 MCG; Start 10/07/18 at 07:00 Baclofen (Lioresal) 10 mg TID PO Last administered on 10/12/18 12:07; Admin Dose 10 MG; Start 10/06/18 at 13:00 Gabapentin (Neurontin) 600 mg TID PO Last administered on 10/12/18 12:07; Admin Dose 600 MG; Start 10/06/18 at 13:00 Levofloxacin (Levaquin) 750 mg DAILY@06 PO Last administered on 10/12/18 06:06; Admin Dose 750 MG; Start 10/06/18 at 11:00 Lidocaine (Lidoderm) 1 patch DAILY TD Last administered on 10/11/18 08:27; Admin Dose 1 PATCH; Start 10/06/18 at 11:00 Senna/Docusate Sodium (Senokot-S) 2 tab HS PO Last administered on 10/11/18 20:28; Admin Dose 2 TAB; Start 10/06/18 at 21:00 Polyethylene Glycol (Miralax) 17 gm DAILY PO Last administered on 10/12/18 08:21; Admin Dose 17 GM; Start 10/07/18 at 09:00 Menthol/Methyl Salicylate (Cm [place]) 1 applic QID TOP ; Start 10/06/18 at 13:00 Oxymetazoline HCl (Afrin [place]) 2 spray BID NASAL Last administered on 10/11/18 09:31; Admin Dose 2 SPRAY; Start 10/06/18 at 21:00 Lactobacillus Acidophilus/ Rhamnosus (Culturelle) 1 cap BID PO Last administered on 10/12/18 08:17; Admin Dose 1 CAP; Start 10/06/18 at 21:00 Promethazine HCl/ Codeine (Phenergan/ Codeine) 10 ml Q4H PRN PO COUGH; Start at 11:00 Trazodone HCl (Desyrel) 50 mg BID PO Last administered on 10/12/18 08:17; Admin Dose 50 MG; Start 10/06/18 at 11:00 Zinc Sulfate (Zinc Sulfate) 220 mg DAILY PO Last administered on 10/12/18 08:19; Admin Dose 220 MG; Start 10/07/18 at 09:00 Nystatin (Nystatin Powder) 1 applic BID TOP Last administered on 10/12/18 08:22; Admin Dose 1 APPLIC; Start 10/06/18 at 21:00 Diphenhydramine HCl (Benadryl) 25 mg Q6H PRN IV ITCHING Last administered on 10/06/18at 21:17; Admin Dose 25 MG; Start 10/06/18 at 15:30 Ondansetron HCl (Zofran Tab) 4 mg Q6H PRN PO NAUSEA AND/OR VOMITING Last a dministered on 10/12/18at 00:36; Admin Dose 4 MG; Start 10/07/18 at 00:30 Diphenhydramine HCl (Benadryl) 25 mg Q6H PRN PO ITCHING Last administered on 10/12/18 09:45; Admin Dose 25 MG; Start 10/07/18 at 00:30 Famotidine (Pepcid) 20 mg DAILY PO Last administered on 10/12/18 06:14; Admin Dose 20 MG; Start 10/10/18 at 09:00 LAST GARNER NP Oct 12, 2018 16:11
[2018-10-12 20:00] VITALS: BP 126/74; PULSE 71; RESP 17
[2018-10-12] MEDS: SENNA/DOCUSATE NA (8.6MG/50MG) TAB PO SCH (20:07)
[2018-10-12] MEDS: ZOLPIDEM 5 MG TAB PO PRN (21:44)
[2018-10-13 02:00] VITALS: BP 113/61; PULSE 64; RESP 18
[2018-10-13] MEDS: HYDROCODONE/APAP (5/325) TAB PO PRN ×4 (02:28→14:38)
[2018-10-13] MEDS: LEVOTHYROXINE 50 MCG TAB PO SCH (06:31)
[2018-10-13] MEDS: LEVOFLOXACIN 750 MG TABLET PO SCH (06:31)
[2018-10-13] MEDS: LORAZEPAM 1 MG TAB PO PRN (08:10)
[2018-10-13] MEDS: CHOLECALCIFEROL 1,000 UNIT TAB PO SCH (08:10)
[2018-10-13] MEDS: traZODone 50 MG TAB PO SCH (08:11)
[2018-10-13] MEDS: GABAPENTIN 300 MG CAP PO SCH ×2 (08:11→12:04)
[2018-10-13] MEDS: BACLOFEN 10 MG TAB PO SCH ×2 (08:11→12:04)
[2018-10-13] MEDS: FAMOTIDINE 20 MG TAB PO SCH (08:11)
[2018-10-13] MEDS: POTASSIUM CHLORIDE (SR) 20 MEQ TAB PO SCH (08:11)
[2018-10-13] MEDS: POLYETHYLENE GLYCOL 17 GM PACKET PO SCH (08:11)
[2018-10-13] MEDS: DULOXETINE 30 MG CAP DR PO SCH (08:11)
[2018-10-13] MEDS: ZINC SULFATE 220 MG CAP PO SCH (08:11)
[2018-10-13] MEDS: MENTHOL/METH SALICYLATE 30 GM OINT TOP SCH ×2 (08:12→12:04)
[2018-10-13] MEDS: LIDOCAINE 5% PATCH TD SCH (08:12)
[2018-10-13] MEDS: NYSTATIN 30 GM POWDER BTL TOP SCH (08:13)
[2018-10-13] MEDS: OXYMETAZOLINE 0.05% 15 ML NAS SPRAY NASAL SCH (08:13)
[2018-10-13] MEDS: LACTOBACILLUS RHAMNOSUS CAP PO SCH (09:26)
[2018-10-13] MEDS: DIPHENHYDRAMINE 25 MG CAP PO PRN (10:37)
--- NOTE | 2018-10-13 14:38 | PDOCDIS ---
Discharge Instructions CONDITION [id number] Patient Condition: [id number] Stable HOME CARE INSTRUCTIONS: [id number] Diet Instructions: [id number] Regular FOLLOW UP/APPOINTMENTS Follow-up Plan Luis Armando Kathleen MD Specialty: Internal Medicine Office Address: [address] [place] [address] Office OTHER ORDERS: Other Orders: 1. Take a regular diet. 2. Resume home medications. 3. Resume activities as tolerated. 4. Follow-up with your primary care physician in 2 weeks. SUZANNE STEVENSON NP Oct 13, 2018 14:38
[2018-10-13] MEDS ORDERED: LEVO50TA7 PO (15:03)
--- NOTE | 2018-10-13 15:42 | DS ---
Date/Time of Note Date/Time of Note DATE: 10/13/18 TIME: 15:39 Discharge Summary Admission/Discharge Info Admit Date/Time Oct 05, 2018 at 22:30 Discharge Date/Time Discharge Diagnosis 1. Stenotrophomonas maltophilia bacteremia on 09/03/2018; Stenotrophomonas m altophilia bacteremia on 09/19/2018 2. 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 No evidence or documented history of Hodgkin's lymphoma as per oncology. 3. History of PE. Status post IVC filter placement. 4. Anemia. Microcytic and hypochromic. S/P bone marrow biopsy on 08/20/2018 negative for any malignancy 5. Beta thalassemia trait. 6. Chronic pain syndrome. 7. Hemoptysis. Negative studies. ?Munchausen syndrome. 8. DVT involving the right proximal mid femoral veins; partial DVT of the right distal femoral vein. 9. Hypothyroidism. Patient Condition: Stable Consults 1. Max Hansen MD, Infectious Diseases. 2. Sharon Valenzuela NP, Psychiatry. Procedures Pelvic US IMPRESSION: 1. Unremarkable uterus and endometrium. 2. Normal size right ovary without focal lesion and no ultrasonic evidence of ovarian torsion. 3. Nonvisualization the left ovary. 4. No adnexal masses or free fluid. Hx of Present Illness This is a 52-year-old female with comorbidities including reported (non documented) Hodgkin's lymphoma of the lung, history of thyroid cancer status post thyroid surgery,chronic pain syndrome, and.history of PE status post IVC filter placement. [place] [facility] [place] 09/28/[place], when the patient was transferred to [facility] for further evaluation of her hemoptysis. [facility] pulmonology concluded no need for further evaluation of hemoptysis since this was resolved and there were concerns for factitious disorder since the patient's belongings revealed a vial of red liquid which she referred to as blood. However, lab analysis showed this was not blood. The patient was transferred back from [facility] on 10/05/2018 for further management because of insurance reasons. Hospital Course The patient was maintained on antimicrobial therapy for completion of her Stenotrophomonas maltophilia bacteremia on 09/03/2018 and Stenotrophomonas maltophilia bacteremia on 09/19/2018. Infectious diseases was following the patient during the hospital course. The patient had hemoptysis as one of her chief complaints on her prior hospitalization. The patient was being followed by pulmonology. The patient underwent a bronchoscopy on 08/24/2018 and that was unremarkable. The patient underwent an esophagogastroduodenoscopy x2 that showed no evidence of any gastrointestinal bleeding. The patient was evaluated by ENT surgeon with a laryngoscopy on 09/01/2018 with no evidence of any bleeding. The etiology of the patient's hemoptysis remained unclear. The patient was also evaluated by r heumatology for evaluation for any underlying vasculitis. The patient had no evidence of Sjogren's with negative ALLI, RF, SSA or SSB. The patient had no evidence of Lupus or Rheumatoid Arthritis and has negative ALLI and Rheum Factor. Therefore, a clinical decision was made to transfer this patient to a tertiary care facility where this patient can be further evaluated for the etiology of the underlying hemoptysis. On 09/28/2018, the patient was transferred to [facility] for further evaluation of her hemoptysis. [facility] pulmonology concluded no need for further evaluation of hemoptysis since this was resolved and there were concerns for factitious disorder since the patient's belongings revealed a vial of red liquid which she referred to as blood. However, lab analysis showed this was not blood. The patient was transferred back from [facility] on 10/05/2018 for further management because of insurance reasons. The patient claims that she has Hodgkin's lymphoma. As per, oncology there is no evidence of medical history of Hodgkin's lymphoma on this patient. The patient has a history of recurrent thromboembolism. The patient is status post IVC filter placement. The patient has no evidence of any antiphospholipid syndrome. The patient is a chronic opioid seeker. There is no clinical justification for giving the patient any strong opioids. The patient has no evidence of any malignancy. Therefore, the patient was maintained only on low-dose opiates during the hospitalization. The patient was previously evaluated by pain management team during her prior hospitalization. The patient is homeless and the patient came from an assisted living facility. Therefore, case management/social work involved in the patient's case. The patient will be transferred to a recuperative care center upon discharge. Discharge Instructions 1. Take a regular diet. 2. Resume home medications. 3. Resume activities as tolerated. 4. Follow-up with your primary care physician in 2 weeks. The patient verbalized understanding of her discharge instructions. At this time I would like to thank all the consultants for seeing the patient and providing clinical recommendations. The patient was seen in collaboration with Dr. Montes. Home Meds Active Scripts Levothyroxine Sodium* (Levothyroxine Sodium*) 50 Mcg Tablet, 50 MCG PO BEFORE BREAKFAST, #30 TAB Prov:SUZANNE STEVENSON NP 10/13/18 Reported Medications Lorazepam* (Lorazepam*) 1 Mg Tablet, 2 MG PO BID PRN for ANXIETY, #30 TAB 10/05/18 Cholecalciferol* (Vitamin D3*) 1,000 Unit Tablet, 2000 UNIT PO DAILY, TAB 08/13/18 Duloxetine Hcl* (Cymbalta*) 60 Mg Capsule.dr, 60 MG PO DAILY, CAP 08/13/18 Discontinued Reported Medications Zolpidem Tartrate* (Ambien*) 5 Mg Tablet, 10 MG PO QHS PRN for INSOMNIA, #30 TAB 08/13/18 Potassium Chloride* (Potassium Chloride*) 20 Meq Tablet.er, 20 MEQ PO DAILY, TAB.SA 08/13/18 Oxycodone Hcl* (Oxycontin*) 15 Mg Tab.sr.12h, 15 MG PO Q12, TAB 08/13/18 Hydromorphone Hcl* (Dilaudid*) 8 Mg Tablet, 8 MG PO Q6H PRN for PAIN, TAB 08/13/18 Pantoprazole* (Protonix*) 40 Mg Tablet.dr, 40 MG PO AC BREAKFAST, TAB 08/13/18 Follow-up Plan Luis Armando Kathleen MD Specialty: Internal Medicine Office Address: [address] [place], [place] [id number] Office Primary Care Provider Care Physician No Primary Time spent on discharge: > 30 minutes SUZANNE STEVENSON NP Oct 13, 2018 15:42
== END 2018-10-13 16:55 | disposition home or self-care (01) | DRG 392 ==
LOC: 2NE 10-05 22:30 → 5EC 10-06 23:15
PROVIDERS: ADMIT Internal Medicine; ATTEND Internal Medicine
DX: K52.9 Noninfective gastroenteritis and colitis, unspecified (principal); R04.2 Hemoptysis; Z86.718 Personal history of other venous thrombosis and embolism; Z86.711 Personal history of pulmonary embolism; G89.4 Chronic pain syndrome; F41.8 Other specified anxiety disorders; D56.3 Thalassemia minor; Z76.5 Malingerer [conscious simulation]; Z59.0 Homelessness; D50.9 Iron deficiency anemia, unspecified
CPT/HCPCS: 76856; 80048; 80053; 82270; 83690; 83735; 84100; 84443; 85025; 85610; 85730; 86635; 86641; 87070; 87075; 87081; 88104; 88107; 88305; 97110; 97116; 97161; 97530; J1200; J2405